=== PATIENT | female | born 1955 | race Caucasian/White ===

== ENCOUNTER → 2017-04-16 | Outpatient (CLI) | payer BC ==
[~2017-04-16] MED LIST: ASPI-589 PO; HMLI SC; INSDGI SC; LEVO100T PO; LISI-725 PO; SITA100T3 PO
--- NOTE | 2017-04-16 12:13 | DIAGNOSTIC IMAGING REPORT ---
THYROID ULTRASOUND HISTORY: HX OF THYROID Cancer, rt HYPOTHYROID NODULE COMPARISON: Thyroid ultrasound 06/16/2011. FINDINGS: The patient's right lower lobe is likely surgically absent. The left lobe measures 6.9 x 3.2 x 2.1 cm. The left lobe is diffusely heterogeneous and appears to contain a dominant lower pole nodule measuring 5.1 x 3.2 x 2.1 cm. This does not appear to be significantly changed from the prior study. There is again noted a 1.4 x 1.3 x 1.0 cm upper pole nodule which is slightly hypoechoic. This is also similar to the prior study. There is a 3.1 x 1.9 x 1.9 cm hypoechoic nodule either at or adjacent to the thyroid isthmus is most. This contains locations. In retrospect, this was likely present on the 2010 study and does not appear to be significantly changed. IMPRESSION: 1. The right thyroid lobe appears surgically absent. 2. Multinodular residual thyroid gland as described above. Overall, the size of the nodules are not significantly changed compared to the prior study. Electronically signed by: Papi Jorge M.D. 04/16/2017 12:12 PM Dictated Date/Time: 04/16/2017 12:06 PM
== END | disposition home or self-care (01) ==
LOC: C.ULTRBC 10:50
PROVIDERS: ATTEND Physician Assistant
DX: E03.9 Hypothyroidism, unspecified (principal); E04.1 Nontoxic single thyroid nodule; Z85.850 Personal history of malignant neoplasm of thyroid

== ENCOUNTER 2017-09-17 12:17 | Inpatient (IN) | payer BC, OTHER ==
[~2017-09-17] VITALS: Ht 154.9 cm; Wt 132.1 kg
[2017-09-17] MEDS ORDERED: METHYLPREDNISOLONE 125 MG VIAL IV STA (12:41)
[2017-09-17] MEDS ORDERED: IPRATROPIUM BROMIDE NEB SOLN 0.02% 2.5 ML VIAL INH STA (12:41)
[2017-09-17] MEDS ORDERED: CEFTRIAXONE SOD INJ 1 GM ADDVIAL IV STA (12:41)
[2017-09-17] MEDS ORDERED: LEVALBUTEROL 1.25MG/0.5ML NEB INH STA (12:41)
[2017-09-17 13:03] LABS: BASO % 0.4 %; BASO ABS # 0.06 K/uL (0-0.2); EOS % 1.8 %; EOS ABS # 0.27 K/uL (0-0.5); HEMATOCRIT 34.2 % (37-47); HEMOGLOBIN 11.2 g/dL (12.0-16.0); IG# 0.67 K/uL (0.00-0.02); MEAN CELL VOLUME 86.1 fL (80-100); MEAN CORPUSCULAR HEMOGLOBIN 28.2 pg (25-34); MEAN CORPUSCULAR HGB CONC 32.7 g/dl (32-36); MEAN PLATELET VOLUME 9.9 fL (7.4-10.4); MONO ABS # 1.04 K/uL (0.11-0.59); NEUT % 63.3 %; NEUT ABS # 9.33 K/uL (1.4-6.5); NUCLEATED RED BLOOD CELL ABS 0.05 K/uL (0-0); PLATELET COUNT 346 K/uL (130-400); WHITE BLOOD COUNT 14.77 K/uL (4.8-10.8)
--- NOTE | 2017-09-17 13:10 | DIAGNOSTIC IMAGING REPORT ---
CHEST ONE VIEW PORTABLE CLINICAL HISTORY: Respiratory distress COMPARISON STUDY: 11/26/2015 FINDINGS: The heart is mildly enlarged. There is elevation of the interstitium, likely secondary to congestive failure with interstitial edema. There is no focal pulmonary consolidation.[ IMPRESSION: Radiographic evidence of congestive failure with mild interstitial edema. Clinical and radiographic follow-up is recommended Electronically signed by: Carl Navarrete M.D. 09/17/2017 1:08 PM Dictated Date/Time: 09/17/2017 1:08 PM
[2017-09-17] MEDS ORDERED: FUROSEMIDE 40 MG/4 ML VIAL IV STA (13:11)
[2017-09-17 13:15] LABS: INR 1.1 (0.9-1.1); PTT PATIENT 29.6 SECONDS (21.0-31.0)
[2017-09-17] MEDS ORDERED: NITROGLYCERIN 2% OINTMENT 30GM TUBE EXT ONE (13:15)
[2017-09-17 13:18] LABS: ALBUMIN 2.4 gm/dl (3.4-5.0); CALCIUM 8.9 mg/dl (8.5-10.1); CREATININE 1.15 mg/dl (0.60-1.20); POTASSIUM 3.9 mmol/L (3.5-5.1)
[2017-09-17 13:26] LABS: TOTAL PROTEIN 7.9 gm/dl (6.4-8.2)
[2017-09-17 13:53] VITALS: PULSE 95; O2SAT 96
[2017-09-17] MEDS ORDERED: LVMI SQ (13:54)
[2017-09-17] MEDS ORDERED: ASPI-435 PO (13:54)
[2017-09-17] MEDS ORDERED: NVLG SQ (13:54)
[2017-09-17 14:50] LABS: INFLUENZA A PCR Neg for Influ A (NEG); INFLUENZA B PCR Neg for Influ B (NEG)
[2017-09-17] MEDS ORDERED: ACETAMINOPHEN 325 MG TAB PO PRN (15:00)
--- NOTE | 2017-09-17 15:13 | History and Physical ---
History & Physical Date & Time of Service: Sep 17, 2017 at 14:28 Chief Complaint: Chest Pain, Heart Racing, Bronchitis Primary Care Physician: Aiyana Asencio M.D. History of Present Illness Ms. Molina began having high fever of 102.7 for four days. Sunday the fever broke and a cough started which worsened and became productive of brown sputum and she became increasingly short of breath. Went to [facility] walk in and she was given nebulizers. Starting yesterday she couldn't take more than a few steps without becoming sob. Today she began having chest pain and palpitations. She has had edema in fingers and lower extremities. She has been taking her lasix which she takes for lymphedema. ROS Constitutional: see HPI Respiratory: see HPI Cardiac: See HPI GI: no abdominal pain, nausea, vomiting, diarrhea or constipation : no dysuria or hesitancy Extremities: no joint pain or weakness Skin: no rash All other systems reviewed and negative Pmhx: Diabetes II, thyroid cancer 10 years ago with thyroidectomy, Family History Diabetes mellitus FH: gallbladder disease FH: thyroid cancer Heart disease Mother - DMII Father - CHF Brother had CHF due to transposition of the great vessels Social History Smoking Status: Never Smoker Smokeless Tobacco Use: No Alcohol Use: none Drug Use: none Marital Status: Housing status: lives with significant other Occupational Status: retired, other Immunizations History of Influenza Vaccine: Yes History of Tetanus Vaccine?: Unknown History of Pneumococcal: Yes History of Hepatitis B Vaccine: Unknown Multi-Drug Resistant Organisms History of MDRO: No Allergies Coded Allergies: Shellfish (Verified Allergy, Severe, "SEAFOOD" -- HIVES AND THROAT CLOSES , 09/17/17) Sulfites (Verified Allergy, Severe, HIVES AND THROAT CLOSES, 09/17/17) Iodinated Contrast Media (Verified Allergy, Unknown, UNKNOWN, 09/17/17) Iodine (Verified Allergy, Unknown, 09/17/17) Home Medications Scheduled Aspirin (Aspirin 81), 81 MG PO DAILY Insulin Aspart (Novolog), 40 UNITS SQ BID Insulin Detemir (Levemir), 50 UNITS SQ BID Levothyroxine Sodium (Synthroid), 100 MCG PO QAM Lisinopril (Zestril), 20 MG PO DAILY Sitagliptin Phosphate (Januvia), 100 MG PO QAM Physical Exam Vital Signs Date Time Temp Pulse Resp B/P (MAP) Pulse Ox O2 Delivery O2 Flow Rate FiO2 09/17/17 14:00 94 24 145/56 94 Nasal Cannula 4.0 09/17/17 14:00 94 Nasal Cannula 4.0 09/17/17 13:53 95 21 96 Nasal Cannula 4.0 09/17/17 13:01 97 Nasal Cannula 4.0 09/17/17 13:00 95 22 185/66 97 Nasal Cannula 4.0 09/17/17 12:52 85 Room Air 09/17/17 12:51 101 09/17/17 12:26 36.8 101 24 193/55 84 Room Air General: no distress Eyes: normal inspection, PERLL Respiratory: chest non tender, coarse bases, expiratory wheezes throughout, no respiratory distress, no accessory muscle use Cardiac: regular rate and rhythm, no rub or gallop, no murmur, no edema, no jvd GI/: active bowel sounds, no abd pain or tenderness, soft, non distended Extremities: normal range of motion, normal strength, non tender Neuro/Psych: alert and oriented x 3, normal mood and affect Skin: normal color, dry Diagnostics Laboratory Results Results Past 24 Hours Test 09/17/17 12:42 09/17/17 12:50 09/17/17 12:56 09/17/17 12:57 Range/Units Bedside Glucose 200 70-90 mg/dl Bedside Lactic Acid Venous 1.59 0.90-1.70 mmol/L White Blood Count 14.77 4.8-10.8 K/uL Red Blood Count 3.97 4.2-5.4 M/uL Hemoglobin 11.2 12.0-16.0 g/dL Hematocrit 34.2 37-47 % Mean Corpuscular Volume 86.1 80-100 fL Mean Corpuscular Hemoglobin 28.2 25-34 pg Mean Corpuscular Hemoglobin Concent 32.7 32-36 g/dl Platelet Count 346 130-400 K/uL Mean Platelet Volume 9.9 7.4-10.4 fL Neutrophils (%) (Auto) 63.3 % Lymphocytes (%) (Auto) 23.0 % Monocytes (%) (Auto) 7.0 % Eosinophils (%) (Auto) 1.8 % Basophils (%) (Auto) 0.4 % Neutrophils # (Auto) 9.33 1.4-6.5 K/uL Lymphocytes # (Auto) 3.40 1.2-3.4 K/uL Monocytes # (Auto) 1.04 0.11-0.59 K/uL Eosinophils # (Auto) 0.27 0-0.5 K/uL Basophils # (Auto) 0.06 0-0.2 K/uL RDW Standard Deviation 53.0 36.4-46.3 fL RDW Coefficient of Variation 17.0 11.5-14.5 % Immature Granulocyte % (Auto) 4.5 % Immature Granulocyte # (Auto) 0.67 0.00-0.02 K/uL Nucleated RBC Absolute Count (auto) 0.05 0-0 K/uL Nucleated Red Blood Cells % 0.4 % Prothrombin Time 11.3 9.0-12.0 SECONDS Prothromb Time International Ratio 1.1 0.9-1.1 Activated Partial Thromboplast Time 29.6 21.0-31.0 SECONDS Partial Thromboplastin Ratio 1.1 Sodium Level 136 136-145 mmol/L Potassium Level 3.9 3.5-5.1 mmol/L Chloride Level 101 98-107 mmol/L Carbon Dioxide Level 30 21-32 mmol/L Anion Gap 5.0 3-11 mmol/L Blood Urea Nitrogen 20 7-18 mg/dl Creatinine 1.15 0.60-1.20 mg/dl Est Creatinine Clear Calc Drug Dose 67.9 ml/min Estimated GFR () 59.5 Estimated GFR (Non- 51.3 BUN/Creatinine Ratio 17.5 10-20 Random Glucose 179 70-99 mg/dl Calcium Level 8.9 8.5-10.1 mg/dl Total Bilirubin 0.6 0.2-1 mg/dl Aspartate Amino Transf (AST/SGOT) 18 15-37 U/L Alanine Aminotransferase (ALT/SGPT) 32 12-78 U/L Alkaline Phosphatase 114 45-117 U/L Troponin I 0.183 0-0.045 ng/ml Pro-B-Type Natriuretic Peptide 506 0-900 pg/ml Total Protein 7.9 6.4-8.2 gm/dl Albumin 2.4 3.4-5.0 gm/dl Globulin 5.5 2.5-4.0 gm/dl Albumin/Globulin Ratio 0.4 0.9-2 Microbiology Results 09/17/17 Blood Culture, Received Pending 09/17/17 Blood Culture, Received Pending Diagnostic Radiology CHEST ONE VIEW PORTABLE CLINICAL HISTORY: Respiratory distress COMPARISON STUDY: 11/26/2015 FINDINGS: The heart is mildly enlarged. There is elevation of the interstitium, likely secondary to congestive failure with interstitial edema. There is no focal pulmonary consolidation.[ IMPRESSION: Radiographic evidence of congestive failure with mild interstitial edema. Clinical and radiographic follow-up is recommended EKG Poor data quality, interpretation may be adversely affected Sinus tachycardia Low voltage QRS Poor R wave progression, consider anterior NE vs. lead placement vs. LVH Borderline ECG When compared with ECG of 23-NOV-2015 16:39, No significant change was found Confirmed by Tex Quintero ([id number]) on 09/17/2017 1:05:18 PM Impression Assessment and Plan Ms. Molina is a 61 year old woman here for hypoxic respiratory failure Hypoxic respiratory failure due to acute CHF of unknown type vs PNA, influenza - admit tele - 40 mg IV lasix bid - O2 prn per protocol - daily weights - strict Is&Os - Echo - consult cardiology - prp am - duonebs, ceftriaxone, doxycylcine, solumedrol - blood cultures pending - influenza pcr pending - symptoms began a week ago so at this point outside the window for starting Tamiflu Chest pain, Elevated Troponin, ?Type II NE - Troponin 0.183, trend until peak - EKG with chest pain - not currently symptomatic DMII - continue home dose insulin detemir 50 units bid - hold home dose Januvia - bsgs ac&hs, ss - A1c am HTN - continue home lisinopril 20 mg daily - prn IV hydralazine DVT prophylaxs - Enoxaprin Full code I personally interviewed and examined the patient. I agree with history of present illness and physical exam mentioned above, I also performed my own history taking and examination. Past medical history and review of system has been obtained by myself I reviewed all pertinent labs and studies Reviewed current medications I discussed and formulated of the assessment and plan mentioned above. Please refer to the Summary mentioned below. 61-year-old female with past medical history of hypertension and diabetes mellitus presented to the hospital with severe shortness of breath. Patient had an upper respiratory tract infection with fever that slightly improved, fever resolved. But developed after that acute respiratory failure with hypoxemia and wheezing. In ED chest x-ray was more suggestive of congestive heart failure, patient had bilateral lower extremity swelling. Due to history of fever and upper respiratory tract infection will also cover with antibiotics, ceftriaxone and doxycycline while she will is on Lasix for diuresis. Will consult publications writer and order 2D echo as patient is a new diagnosis of CHF. If the patient declined, will consider upgrading her antibiotics to cover Pseudomonas and MRSA General Appearance: Obese, in mild acute distress Eyes: normal Sclerae, extraocular muscle intact ENT: hearing grossly normal Neck: supple Respiratory/Chest: Bilateral decreased air entry, bilateral wheezing and scattered rhonchi, currently not using accessory muscles of respiration Cardiovascular: regular rate, rhythm, no murmur, slightly tachycardia Abdomen: non tender, soft, no masses Extremities: no edema Neurologic/Psychiatric: Awake alert oriented times place and person moves all extremities sensation intact cranial nerves II-12 appear to be intact Skin: normal color, warm/dry, no rash Macie Donis MD, [place] Advanced Directives Existing Advance Directive: No Existing Living Will: No Existing Power of Keeler Polygraph Operator: No Existing Health Care Proxy: No Resuscitation Status FULL RESUSCITATION
[2017-09-17] MEDS ORDERED: GLUCOSE 10 TABS/TUBE PO PRN (15:15)
[2017-09-17] MEDS ORDERED: GLUCAGON FOR INJ 1 MG VIAL SQ PRN (15:15)
[2017-09-17] MEDS ORDERED: DEXTROSE 50% 50 ML SYR IV PRN (15:15)
[2017-09-17] MEDS ORDERED: GLUCOSE 40% GEL 15 GM TUBE PO PRN (15:15)
[2017-09-17] MEDS ORDERED: HydrALAZINE HCL 20 MG/ML VIAL IV. PRN (15:30)
[2017-09-17] MEDS ORDERED: ALBUT/IPRATROP 3MG/0.5MG NEB 3 ML VIAL INH PRN (15:30)
[2017-09-17 16:07] VITALS: BP 140/71; PULSE 95; TEMP 37; O2SAT 93; BMI 56.7
--- NOTE | 2017-09-17 16:43 | EMERGENCY ROOM VISIT NOTE ---
History Report prepared by Tutu: Sheryl Forrest Under the Supervision of: Dr. Puneet Kapoor M.D. First contact with patient: 12:36 Chief Complaint: CHEST PAIN Stated Complaint: CHEST PAIN, HEART RACING, BRONCHITIS History of Present Illness The patient is a 61 year old female who presents to the Emergency Room with complaints of persistent chest pain since today. She reports a high fever that began one week ago that lasted for four days. She reports a cough started three days ago, which worsened within two days. She states the cough was productive. She was started on Albuterol three days ago. She was prescribed Advair. She denies any stuffy nose, though she was prescribed Flonase for pressure in her ears. She was using a nebulizer treatment when she began experiencing chest pain and neck pain. She states the nebulizer was helpful, though every time she used it she would experience sharp chest pain. She has used a nebulizer in the past and did not have these symptoms. She has not slept in days due to shortness of breath. She states that she could not catch her breath after she walked about 10 steps. She states that her heart was beating so fast. She reports leg swelling. She denies any history of smoking. She has a history of PNA and bronchitis. She denies any history of NH. She has a history of DM. She notes her blood sugar is over 300, for which she took insulin before arrival. She states that she has not eaten today. She does not use at home oxygen. Source of History: patient Onset: since yesterday Position: chest Quality: sharp Timing: other (persistent) Associated Symptoms: + cough, + neck pain, + SOB Note: She notes leg swelling. She denies any stuffy nose. Review of Systems See HPI for pertinent positives & negatives. A total of 10 systems reviewed and were otherwise negative. Past Medical & Surgical Medical Problems: (1) Cellulitis (2) CHF (congestive heart failure) (3) Diabetes (4) Diverticulitis (5) GERD (gastroesophageal reflux disease) (6) Thyroid cancer Family History Diabetes mellitus FH: gallbladder disease FH: thyroid cancer Heart disease Social History Smoking Status: Never Smoker Alcohol Use: none Drug Use: none Marital Status: Housing Status: lives with family Occupation Status: other Current/Historical Medications Scheduled Aspirin (Aspirin 81), 81 MG PO DAILY Insulin Aspart (Novolog), 40 UNITS SQ BID Insulin Detemir (Levemir), 50 UNITS SQ BID Levothyroxine Sodium (Synthroid), 100 MCG PO QAM Lisinopril (Zestril), 20 MG PO DAILY Sitagliptin Phosphate (Januvia), 100 MG PO QAM Allergies Coded Allergies: Shellfish (Verified Allergy, Severe, "SEAFOOD" -- HIVES AND THROAT CLOSES , 09/17/17) Sulfites (Verified Allergy, Severe, HIVES AND THROAT CLOSES, 09/17/17) Iodinated Contrast Media (Verified Allergy, Unknown, UNKNOWN, 09/17/17) Iodine (Verified Allergy, Unknown, 09/17/17) Physical Exam Vital Signs Date Time Temp Pulse Resp B/P (MAP) Pulse Ox O2 Delivery O2 Flow Rate FiO2 09/17/17 15:19 93 18 167/61 96 09/17/17 15:00 93 18 167/61 96 Nasal Cannula 4.0 09/17/17 14:00 94 24 145/56 94 Nasal Cannula 4.0 09/17/17 14:00 94 Nasal Cannula 4.0 09/17/17 13:53 95 21 96 Nasal Cannula 4.0 09/17/17 13:01 97 Nasal Cannula 4.0 09/17/17 13:00 95 22 185/66 97 Nasal Cannula 4.0 09/17/17 12:52 85 Room Air 09/17/17 12:51 101 09/17/17 12:26 36.8 101 24 193/55 84 Room Air Physical Exam GENERAL: Patient is in no acute distress. HEENT: No acute trauma, normocephalic atraumatic, mucous membranes moist, no nasal congestion, no scleral icterus. NECK: No stridor, no adenopathy, no meningismus, trachea is midline. LUNGS: Crackles on right, wheezing bilaterally, breath sounds are diminished, but equal. Moist cough noted. Dyspnea noted with speaking. HEART: Tachycardic rate with regular rhythm, no murmurs. ABDOMEN: Soft, nontender, bowel sounds positive, no hernias, no peritonitis. EXTREMITIES: No cyanosis, full range of motion of all the joints without pain or difficulty, no signs for acute trauma. Mild bilateral pedal edema. NEUROLOGIC: Oriented x 3, no acute motor or sensory deficits, no focal weakness. SKIN: No rash, no jaundice, no diaphoresis. Medical Decision & Procedures ER Provider Diagnostic Interpretation: Radiology results as stated below per my review and radiologist interpretation: CHEST ONE VIEW PORTABLE CLINICAL HISTORY: Respiratory distress COMPARISON STUDY: 11/26/2015 FINDINGS: The heart is mildly enlarged. There is elevation of the interstitium, likely secondary to congestive failure with interstitial edema. There is no focal pulmonary consolidation.[ IMPRESSION: Radiographic evidence of congestive failure with mild interstitial edema. Clinical and radiographic follow-up is recommended Electronically signed by: Carl Navarrete M.D. 09/17/2017 1:08 PM Dictated Date/Time: 09/17/2017 1:08 PM Laboratory Results 09/17/17 12:57 Red Blood Count 3.97, Mean Corpuscular Volume 86.1, Mean Corpuscular Hemoglobin 28.2, Mean Corpuscular Hemoglobin Concent 32.7, Mean Platelet Volume 9.9, Neutrophils (%) (Auto) 63.3, Lymphocytes (%) (Auto) 23.0, Monocytes (%) (Auto) 7.0, Eosinophils (%) (Auto) 1.8, Basophils (%) (Auto) 0.4, Neutrophils # (Auto) 9.33, Lymphocytes # (Auto) 3.40, Monocytes # (Auto) 1.04, Eosinophils # (Auto) 0.27, Basophils # (Auto) 0.06 09/17/17 12:57 Test 09/17/17 12:50 09/17/17 12:56 09/17/17 12:57 Influenza Type A (RT-PCR) Neg for Influ A (NEG) Influenza Type B (RT-PCR) Neg for Influ B (NEG) Bedside Lactic Acid Venous 1.59 mmol/L (0.90-1.70) White Blood Count 14.77 K/uL (4.8-10.8) Red Blood Count 3.97 M/uL (4.2-5.4) Hemoglobin 11.2 g/dL (12.0-16.0) Hematocrit 34.2 % (37-47) Mean Corpuscular Volume 86.1 fL (80-100) Mean Corpuscular Hemoglobin 28.2 pg (25-34) Mean Corpuscular Hemoglobin Concent 32.7 g/dl (32-36) Platelet Count 346 K/uL (130-400) Mean Platelet Volume 9.9 fL (7.4-10.4) Neutrophils (%) (Auto) 63.3 % Lymphocytes (%) (Auto) 23.0 % Monocytes (%) (Auto) 7.0 % Eosinophils (%) (Auto) 1.8 % Basophils (%) (Auto) 0.4 % Neutrophils # (Auto) 9.33 K/uL (1.4-6.5) Lymphocytes # (Auto) 3.40 K/uL (1.2-3.4) Monocytes # (Auto) 1.04 K/uL (0.11-0.59) Eosinophils # (Auto) 0.27 K/uL (0-0.5) Basophils # (Auto) 0.06 K/uL (0-0.2) RDW Standard Deviation 53.0 fL (36.4-46.3) RDW Coefficient of Variation 17.0 % (11.5-14.5) Immature Granulocyte % (Auto) 4.5 % Immature Granulocyte # (Auto) 0.67 K/uL (0.00-0.02) Nucleated RBC Absolute Count (auto) 0.05 K/uL (0-0) Nucleated Red Blood Cells % 0.4 % Prothrombin Time 11.3 SECONDS (9.0-12.0) Prothromb Time International Ratio 1.1 (0.9-1.1) Activated Partial Thromboplast Time 29.6 SECONDS (21.0-31.0) Partial Thromboplastin Ratio 1.1 Anion Gap 5.0 mmol/L (3-11) Est Creatinine Clear Calc Drug Dose 67.9 ml/min Estimated GFR () 59.5 Estimated GFR (Non- 51.3 BUN/Creatinine Ratio 17.5 (10-20) Calcium Level 8.9 mg/dl (8.5-10.1) Total Bilirubin 0.6 mg/dl (0.2-1) Aspartate Amino Transf (AST/SGOT) 18 U/L (15-37) Alanine Aminotransferase (ALT/SGPT) 32 U/L (12-78) Alkaline Phosphatase 114 U/L (45-117) Troponin I 0.183 ng/ml (0-0.045) Pro-B-Type Natriuretic Peptide 506 pg/ml (0-900) Total Protein 7.9 gm/dl (6.4-8.2) Albumin 2.4 gm/dl (3.4-5.0) Globulin 5.5 gm/dl (2.5-4.0) Albumin/Globulin Ratio 0.4 (0.9-2) Laboratory results reviewed by me. Medications Administered Medications (Trade) Dose Ordered Sig/Jason Route Start Time Stop Time Status Last Admin Dose Admin Levalbuterol (Xopenex 1.25MG/ 0.5ML Neb) 1.25 mg NOW STAT INH 09/17/17 12:41 09/17/17 12:45 DC 09/17/17 13:50 1.25 MG Ipratropium [place] (Atrovent 0.02% 0.5MG/2.5ML Neb) 0.5 mg NOW STAT INH 09/17/17 12:41 09/17/17 12:45 DC 09/17/17 13:50 0.5 MG Methylprednisolone Sodium Succinate (Solu-Medrol IV) 80 mg NOW STAT IV 09/17/17 12:41 09/17/17 12:45 DC 09/17/17 13:12 80 MG Ceftriaxone Sodium (Rocephin Inj) 1 gm NOW STAT IV 09/17/17 12:41 09/17/17 12:45 DC 09/17/17 13:59 1 GM Nitroglycerin (Nitroglycerin 2% Oint) 2 inch NOW ONCE EXT 09/17/17 13:15 09/17/17 13:16 DC 09/17/17 13:18 2 INCH Furosemide (Lasix Inj) 20 mg NOW STAT IV 09/17/17 13:11 09/17/17 13:14 DC 09/17/17 13:17 20 MG ECG Per My Interpretation Indication: chest pain Rate (beats per minute): 102 Rhythm: sinus tachycardia Findings: no ectopy (no PVCs), other (no ST elevation) Change: Patient's electrocardiogram interpreted by me. ED Course 1236: The patient was evaluated in room B12B. A complete history and physical exam was performed. 1241: Ordered Rocephin 1 gm IV, Solu-Medrol 80 mg IV, Ipratropium [place] 0.5 mg INH, and Levalbuterol 1.25 mg INH 1311: Ordered Lasix 20 mg IV 1314: I reassessed the patient at this time. I updated the patient. 1315: Ordered Nitroglycerin 2 inch EXT 1347: I reassessed the patient at this time. She is diuresing from the Lasix. She reports shortness of breath when she moves around. 1359: I spoke with MARIELA Serrano hospitalist. We discussed the patient's case. The patient will be evaluated by the [facility] for further management. Medical Decision The patient is a 61 year old female who presents to the ED with complaints of chest pain. Differential diagnoses considered include bronchitis, PNA, CHF, cardiac ischemia, anemia, sinusitis, failed outpatient treatment, and influenza. There is a mild leukocytosis, this would be consistent with infection. No concerning anemia. No significant electrolyte abnormality, kidney failure or hepatitis. Chest x-ray appears to show some CHF. BNP is not elevated. EKG shows a sinus tachycardia, no acute ischemia. Cardiac enzyme testing times one is slightly elevated consistent with cardiac strain or injury. Blood cultures are pending. Influenza testing is negative. Lactic acid level is not elevated making sepsis less likely. The patient presents with some respiratory distress. She was hypoxic in triage. She became short of breath with any movement and even long sentences. The patient received a Xopenex Atrovent neb, IV Solu-Medrol and IV ceftriaxone. She was given Nitropaste and IV Lasix. She did diuresis. The patient requires O2 supplementation. She does require a hospital stay given her findings. I spoke to the patient and case loader operator. The on-call hospitalist was consulted. Medication Reconcilliation Current Medication List: was personally reviewed by me Blood Pressure Screening Patient's blood pressure: Elevated blood pressure referred to hospitalist Consults Time Called: 1343 Consulting Physician: MARIELA Serrano hospitalist Returned Call: [phone] I spoke with MARIELA Serrano hospitalist. We discussed the patient' s case. The patient will be evaluated by the [facility] for further management. Impression Primary Impression: Hypoxia Additional Impressions: CHF (congestive heart failure) Elevated troponin Wheezing Scribe Attestation The scribe's documentation has been prepared under my direction and personally reviewed by me in its entirety. I confirm that the note above accurately reflects all work, treatment, procedures, and medical decision making performed by me. Departure Information Dispostion Being Evaluated By Hospitalist Referrals Aiyana Asencio M.D. (PCP) Patient Instructions My [facility] Problem Qualifiers
--- NOTE | 2017-09-17 17:00 | ECHOCARDIOGRAM REPORT ---
*NOTICE TO RECEIVING [employer] This information is strictly Confidential and protected under [place] law. [place] law prohibits you from making any further disclosure of this information unless further disclosure is expressly permitted by the written consent of the person to whom it pertains or is authorized by law. A general authorization for the release of medical or other information is not sufficient for this purpose. Hospital accepts no responsibility if the information is made available to any other person, INCLUDING THE PATIENT. Interpretation Summary * Name: GREY LOU Study Date: 09/17/2017 03:49 PM BP: 145/56 mmHg * Patient Location: [facility] HR: 94 * : 1955 (M/d/yyyy) Gender: Female Height: 60 in * Age: 61 yrs Ethnicity: [place] Weight: 303 lb * Ordering Physician: Shelley Ribeiro * Referring Physician: Self, Referred * Performed By: Vianey Baird RDCS * * Reason For Study: Congestive Heart Failure * BSA: 2.2 m2 * -- Conclusions -- * Left ventricular systolic function is normal. * No significant valvular disease Procedure Details * A complete two-dimensional transthoracic echocardiogram was performed (2D, M-mode, Doppler and color flow Doppler). Left Ventricle * The left ventricle is normal in size. * There is normal left ventricular wall thickness. * Ejection Fraction = 65-70%. * Left ventricular systolic function is normal. Right Ventricle * The right ventricle is not well visualized. Atria * The left atrial size is normal. * Right atrium not well visualized. Mitral Valve * The mitral valve is grossly normal. * Significant mitral regurgitation is absent. Tricuspid Valve * The tricuspid valve is not well visualized. * There is trace tricuspid regurgitation. * Right ventricular systolic pressure is normal. Aortic Valve * The aortic valve is not well visualized. * No hemodynamically significant valvular aortic stenosis. * There is no significant aortic regurgitation. Great Vessels * The aortic root is normal size. Pericardium/Pleural * There is no pericardial effusion. MMode 2D Measurements and Calculations IVSd 1.1 cm IVSs 1.9 cm LVIDd 4.7 cm LVIDs 2.5 cm LVPWd 1.2 cm LVPWs 1.2 cm IVS/LVPW 0.96 FS 45.5 % EDV(Teich) 101.3 ml ESV(Teich) 23.4 ml EF(Teich) 76.9 % EDV(cubed) 102.4 ml ESV(cubed) 16.5 ml EF(cubed) 83.9 % % IVS thick 72.2 % % LVPW thick 4.7 % LV mass(C)d 194.1 grams LV mass(C)dI 87.1 grams/m\S\2 LV mass(C)s 138.5 grams LV mass(C)sI 62.2 grams/m\S\2 SV(Teich) 77.9 ml SI(Teich) 35.0 ml/m\S\2 SV(cubed) 85.9 ml SI(cubed) 38.6 ml/m\S\2 Ao root diam 2.8 cm Ao root area 6.4 cm\S\2 ACS 1.8 cm LA dimension 3.5 cm LA/Ao 1.2 LVAd ap4 26.2 cm\S\2 LVLd ap4 8.1 cm EDV(MOD-sp4) 70.2 ml EDV(sp4-el) 72.2 ml LVAs ap4 12.6 cm\S\2 LVLs ap4 6.9 cm ESV(MOD-sp4) 23.1 ml ESV(sp4-el) 19.6 ml EF(MOD-sp4) 67.0 % EF(sp4-el) 72.9 % LVAd ap2 31.5 cm\S\2 LVLd ap2 8.3 cm EDV(MOD-sp2) 104.5 ml EDV(sp2-el) 102.0 ml LVAs ap2 17.7 cm\S\2 LVLs ap2 7.5 cm ESV(MOD-sp2) 38.6 ml ESV(sp2-el) 35.6 ml EF(MOD-sp2) 63.0 % EF(sp2-el) 65.1 % LVLd %diff 2.1 % EDV(MOD-bp) 85.5 ml LVLs %diff 7.4 % ESV(MOD-bp) 29.4 ml EF(MOD-bp) 65.7 % SV(MOD-sp4) 47.1 ml SI(MOD-sp4) 21.1 ml/m\S\2 SV(MOD-sp2) 65.9 ml SI(MOD-sp2) 29.6 ml/m\S\2 SV(MOD-bp) 56.2 ml SI(MOD-bp) 25.2 ml/m\S\2 SV(sp4-el) 52.7 ml SI(sp4-el) 23.7 ml/m\S\2 SV(sp2-el) 66.4 ml SI(sp2-el) 29.8 ml/m\S\2 Doppler Measurements and Calculations MV E max ha 126.0 cm/sec MV A max ha 96.3 cm/sec MV E/A 1.3 MV dec time 0.19 sec Ao V2 max 164.0 cm/sec Ao max PG 10.8 mmHg Ao max PG (full) 5.9 mmHg LV V1 max PG 4.9 mmHg LV V1 max 110.3 cm/sec PA V2 max 99.2 cm/sec PA max PG 3.9 mmHg TR max ha 144.6 cm/sec
[2017-09-17] MEDS: LACTOBACILLUS ACIDOPHILUS (FLORANEX) TAB PO SCH (18:13)
[2017-09-17] MEDS: ENOXAPARIN 40 MG/0.4 ML SYR SC SCH (18:13)
[2017-09-17] MEDS: FUROSEMIDE INJ 40 MG in SYRINGE 0 ML IV SCH (18:14)
[2017-09-17] MEDS: DOXYCYCLINE IV 100 MG in DEXTROSE 5% 100ML 100 ML IV SCH (18:14)
[2017-09-17] MEDS: INSULIN ASPART 100 UNITS/ML 3 ML PEN SC SCH ×2 (18:17→20:28)
[2017-09-17 19:31] VITALS: BP 164/75; PULSE 94; TEMP 36.9; O2SAT 92
[2017-09-17] MEDS: ALBUT/IPRATROP 3MG/0.5MG NEB 3 ML VIAL INH SCH (19:37)
[2017-09-17 19:42] VITALS: PULSE 88; O2SAT 96
[2017-09-17] MEDS: INSULIN DETEMIR SC SCH (20:28)
[2017-09-17 23:42] VITALS: BP 130/66; PULSE 88; TEMP 36.8; O2SAT 95
[2017-09-18] VITALS (11 sets, daily range): BP systolic 146–187; BP diastolic 68–80; PULSE 80–109; TEMP 36.6–36.9; O2SAT 89–98; BMI 55.8
[2017-09-18] MEDS: METHYLPREDNISOLONE IV 60 MG in SYRINGE 0 ML IV SCH ×3 (00:18→23:34)
[2017-09-18] MEDS: DOXYCYCLINE IV 100 MG in DEXTROSE 5% 100ML 100 ML IV SCH ×2 (06:14→17:39)
[2017-09-18] MEDS: LEVOTHYROXINE 100 MCG TAB PO SCH (06:14)
[2017-09-18] MEDS: ALBUT/IPRATROP 3MG/0.5MG NEB 3 ML VIAL INH SCH ×4 (07:15→19:21)
[2017-09-18] MEDS: LACTOBACILLUS ACIDOPHILUS (FLORANEX) TAB PO SCH ×3 (08:04→17:01)
[2017-09-18] MEDS: LISINOPRIL 20 MG TAB PO SCH (08:04)
[2017-09-18] MEDS: FUROSEMIDE INJ 40 MG in SYRINGE 0 ML IV SCH (08:05)
[2017-09-18] MEDS: ASPIRIN 81 MG ECTAB PO SCH (08:05)
[2017-09-18] MEDS: INSULIN ASPART 100 UNITS/ML 3 ML PEN SC SCH ×4 (08:10→21:00)
[2017-09-18] MEDS: INSULIN DETEMIR SC SCH ×2 (08:10→21:24)
[2017-09-18 08:13] LABS: CALCIUM 9.1 mg/dl (8.5-10.1); CREATININE 1.24 mg/dl (0.60-1.20); POTASSIUM 4.3 mmol/L (3.5-5.1)
--- NOTE | 2017-09-18 08:34 | Hospitalist Progress Note ---
Hospitalist Progress Note Date of Service Sep 18, 2017. Subjective Pt evaluation today including: conversation w/ patient, physical exam, chart review, lab review, review of studies, review of inpatient medication list Patient seen and evaluated. No acute events overnight. Had 4 beat run of PVCs but NSR on telemetry. Patient reports some improvement but not yet baseline. Does not utilize chronic O2. Echo reviewed that does not support CHF. Patient has chronic lymphedema however do not feel she is directly in CHF. She states her symptoms started after being exposed to her grandchildren that have been sick. She denies any H/O diagnosed pulmonary conditions. She denies H/O blood clots or PE. Clinical assessment supports a bronchitis, maybe PNA. States she gets hives with iodine products but not anaphylaxis. She would like to go forward with testing and will pre-medicate with IV Benadryl and IV Steroids. Given dosing of steroids yesterday and this morning will just do pre- medication one hour prior to CTA. Constitutional: No fever, No chills Respiratory: + cough, + wheezing, + shortness of breath, No sputum Cardiovascular: No chest pain Abdomen: No pain, No nausea, No vomiting, No diarrhea, No constipation Musculoskeletal: No swelling, No calf pain Female : No dysuria Psychiatric: + problem reported (si) Heme: No abnormal bleeding/bruising Skin: No rash Medications Current Inpatient Medications Medications (Trade) Dose Ordered Sig/Jason Route Start Time Stop Time Status Last Admin Dose Admin Enoxaparin Sodium (Lovenox Inj) 40 mg Q24H SC 09/17/17 18:00 10/17/17 17:59 09/17/17 18:13 40 MG Acetaminophen (Tylenol Tab) 650 mg Q4H PRN PO 09/17/17 15:00 10/17/17 14:59 09/18/17 04:24 650 MG Nitroglycerin (Nitrostat Tab) 0.4 mg UD PRN SL 09/17/17 15:00 10/17/17 14:59 Furosemide 40 mg/ Syringe 4 ml @ 4 mls/min BID17 IV 09/17/17 17:00 10/17/17 16:59 Future Hold 09/18/17 08:05 4 MLS/MIN Aspirin (Ecotrin Tab) 81 mg DAILY PO 09/18/17 09:00 3/29/18 08:59 09/18/17 08:05 81 MG Levothyroxine Sodium (Synthroid Tab) 100 mcg DAILYBB PO 09/18/17 06:00 10/18/17 06:59 09/18/17 06:14 100 MCG Lisinopril (Zestril Tab) 20 mg DAILY PO 09/18/17 09:00 10/18/17 08:59 09/18/17 08:04 20 MG Insulin Detemir (Levemir Insulin) 50 units BID SC 09/17/17 21:00 10/17/17 20:59 09/18/17 08:10 50 UNITS Glucose (Glucose 40% Gel) 15-30 GRAMS 15 GRAMS... UD PRN PO 09/17/17 15:15 10/17/17 15:14 Glucose (Glucose Chew Tab) 4-8 Tablets 4 Tabl... UD PRN PO 09/17/17 15:15 10/17/17 15:14 Dextrose (Dextrose 50% 50ML Syringe) 25-50ML OF 50% DW IV FOR... UD PRN IV 09/17/17 15:15 10/17/17 15:14 Glucagon (Glucagon Inj) 1 mg UD PRN SQ 09/17/17 15:15 10/17/17 15:14 Albuterol/ Ipratropium (Duoneb) 3 ml QIDR INH 09/17/17 16:00 10/17/17 15:59 09/18/17 11:14 3 ML Ceftriaxone Sodium 1 gm/ Dextrose 50 ml @ 100 mls/hr Q24H IV 09/18/17 12:00 09/24/17 11:59 09/18/17 13:22 100 MLS/HR Doxycycline Hyclate 100 mg/ Dextrose 110 ml @ 50 mls/hr Q12H IV 09/17/17 18:00 09/24/17 17:59 09/18/17 06:14 50 MLS/HR Albuterol/ Ipratropium (Duoneb) 3 ml Q2H PRN INH 09/17/17 15:30 10/17/17 15:29 Methylprednisolone Sodium Succinate 60 mg/Syringe 0.96 ml @ 1.5 mls/min Q12H IV 09/18/17 00:00 10/18/17 00:00 09/18/17 13:23 1.5 MLS/MIN Hydralazine HCl (HydrALAZINE INJ) 10 mg Q4H PRN IV. 09/17/17 15:30 10/17/17 15:29 Lactobacillus Acidophilus (Floranex Tab) 4 tab TIDM PO 09/17/17 16:45 10/17/17 17:59 09/18/17 13:24 4 TAB Insulin Aspart (novoLOG ASPART) SLIDING SCALE PCHS SC 09/18/17 17:30 10/18/17 17:29 Miscellaneous Information (Consult Glycemic Management Pharmacy) 1 ea UD PRN N/A 09/18/17 13:17 10/18/17 13:16 Insulin Human Regular 250 units/ Sodium Chloride 252.5 ml @ 0 mls/hr Q24H IV 09/18/17 13:45 10/18/17 13:44 09/18/17 14:15 3.4 MLS/HR Objective Vital Signs Date Time Temp Pulse Resp B/P (MAP) Pulse Ox O2 Delivery O2 Flow Rate FiO2 09/18/17 07:54 36.9 86 18 157/80 (105) 95 09/18/17 07:16 85 18 93 Nasal Cannula 2.0 09/18/17 04:00 Nasal Cannula 3.0 09/18/17 03:33 36.6 86 18 146/77 (100) 91 09/17/17 23:59 Nasal Cannula 3.0 09/17/17 23:42 36.8 88 20 130/66 (87) 95 3.0 09/17/17 20:00 Nasal Cannula 2.0 09/17/17 19:42 88 18 96 Nasal Cannula 3.0 09/17/17 19:31 36.9 94 24 164/75 (104) 92 Nasal Cannula 2.0 09/17/17 16:07 37.0 95 16 140/71 93 Nasal Cannula 4.0 09/17/17 15:19 93 18 167/61 96 09/17/17 15:00 93 18 167/61 96 Nasal Cannula 4.0 09/17/17 14:00 94 24 145/56 94 Nasal Cannula 4.0 09/17/17 14:00 94 Nasal Cannula 4.0 09/17/17 13:53 95 21 96 Nasal Cannula 4.0 09/17/17 13:01 97 Nasal Cannula 4.0 09/17/17 13:00 95 22 185/66 97 Nasal Cannula 4.0 09/17/17 12:52 85 Room Air 09/17/17 12:51 101 09/17/17 12:26 36.8 101 24 193/55 84 Room Air Physical Exam General Appearance: WD/WN, no apparent distress, + obese Eyes: sclerae normal ENT: hearing grossly normal Neck: supple, no adenopathy, no JVD, trachea midline Respiratory/Chest: no respiratory distress, no accessory muscle use, + rhonchi (diffuse), + wheezing (expiratory - diffuse) Cardiovascular: regular rate, rhythm Abdomen: normal bowel sounds, non tender, soft Extremities: no pedal edema Neurologic/Psychiatric: alert, oriented x 3 Skin: normal color, warm/dry Laboratory Results Last 24 Hours Test 09/17/17 12:42 09/17/17 12:50 09/17/17 12:56 09/17/17 12:57 Bedside Glucose 200 mg/dl Influenza Type A (RT-PCR) Neg for Influ A Influenza Type B (RT-PCR) Neg for Influ B Bedside Lactic Acid Venous 1.59 mmol/L White Blood Count 14.77 K/uL Red Blood Count 3.97 M/uL Hemoglobin 11.2 g/dL Hematocrit 34.2 % Mean Corpuscular Volume 86.1 fL Mean Corpuscular Hemoglobin 28.2 pg Mean Corpuscular Hemoglobin Concent 32.7 g/dl Platelet Count 346 K/uL Mean Platelet Volume 9.9 fL Neutrophils (%) (Auto) 63.3 % Lymphocytes (%) (Auto) 23.0 % Monocytes (%) (Auto) 7.0 % Eosinophils (%) (Auto) 1.8 % Basophils (%) (Auto) 0.4 % Neutrophils # (Auto) 9.33 K/uL Lymphocytes # (Auto) 3.40 K/uL Monocytes # (Auto) 1.04 K/uL Eosinophils # (Auto) 0.27 K/uL Basophils # (Auto) 0.06 K/uL RDW Standard Deviation 53.0 fL RDW Coefficient of Variation 17.0 % Immature Granulocyte % (Auto) 4.5 % Immature Granulocyte # (Auto) 0.67 K/uL Nucleated RBC Absolute Count (auto) 0.05 K/uL Nucleated Red Blood Cells % 0.4 % Prothrombin Time 11.3 SECONDS Prothromb Time International Ratio 1.1 Activated Partial Thromboplast Time 29.6 SECONDS Partial Thromboplastin Ratio 1.1 Sodium Level 136 mmol/L Potassium Level 3.9 mmol/L Chloride Level 101 mmol/L Carbon Dioxide Level 30 mmol/L Anion Gap 5.0 mmol/L Blood Urea Nitrogen 20 mg/dl Creatinine 1.15 mg/dl Est Creatinine Clear Calc Drug Dose 67.9 ml/min Estimated GFR () 59.5 Estimated GFR (Non- 51.3 BUN/Creatinine Ratio 17.5 Random Glucose 179 mg/dl Calcium Level 8.9 mg/dl Total Bilirubin 0.6 mg/dl Aspartate Amino Transf (AST/SGOT) 18 U/L Alanine Aminotransferase (ALT/SGPT) 32 U/L Alkaline Phosphatase 114 U/L Troponin I 0.183 ng/ml Pro-B-Type Natriuretic Peptide 506 pg/ml Total Protein 7.9 gm/dl Albumin 2.4 gm/dl Globulin 5.5 gm/dl Albumin/Globulin Ratio 0.4 Test 09/17/17 16:11 09/17/17 19:46 09/17/17 20:18 09/18/17 00:25 Bedside Glucose 114 mg/dl 245 mg/dl Troponin I 0.151 ng/ml 0.085 ng/ml Test 09/18/17 04:08 09/18/17 07:09 Bedside Glucose 219 mg/dl Sodium Level 134 mmol/L Potassium Level 4.3 mmol/L Chloride Level 99 mmol/L Carbon Dioxide Level 28 mmol/L Anion Gap 7.0 mmol/L Blood Urea Nitrogen 28 mg/dl Creatinine 1.24 mg/dl Est Creatinine Clear Calc Drug Dose 61.9 ml/min Estimated GFR () 54.3 Estimated GFR (Non- 46.8 BUN/Creatinine Ratio 22.2 Random Glucose 258 mg/dl Estimated Average Glucose 269 mg/dl Hemoglobin A1c 11.0 % Calcium Level 9.1 mg/dl Assessment and Plan Ms. Molina is a 61 year old woman here for hypoxic respiratory failure Acute Hypoxic Respiratory Failure 2/2 CHF vs PNA vs PE - Echo with EF 65-70% with no valvular abnormalities - BNP minimal however given BMI of 55 may be misleading - CXR with evidence of failure but given presentation maybe viral pneumonia - also may need to R/O PE given hypoxia, CP, trops, tachycardia... - Discussed with patient that allergy to iodine contrast is hives - will premedicate with Benadryl and Steroids - D-Dimer is 1300 - Will hold Lasix at this time as CHF does not appear to be contributing to her presentation - Rocephin 1 g IV daily and Doxycycline 100 mg BID - Methylprednisolone 60 mg IV BID - Ellie JASON Elevated Troponin: Demand Ischemia - Peaked at 0.183 and trending down - Appreciate cardiology's input T2DM: A1c 11 - Will start an insulin gtt to get better control as no plan for steroid wean and will give additional dose for pre-medication today - Continue Levemir 50 units SC BID and SSI - Discussed with pharmacy - appreciate their assistance with glycemic management HTN: - Lisinopril 20 mg daily DVT Prophylaxis: Lovenox 40 mg SC daily Code Status: FULL RESUSCITATION Disposition: - Await clinical improvement Continued [facility] stay due to: multiple IV medications needed Discharge planning: home
[2017-09-18 08:49] LABS: HEMATOCRIT 36.4 % (37-47); HEMOGLOBIN 11.7 g/dL (12.0-16.0); MEAN CELL VOLUME 83.5 fL (80-100); MEAN CORPUSCULAR HEMOGLOBIN 26.8 pg (25-34); MEAN CORPUSCULAR HGB CONC 32.1 g/dl (32-36); MEAN PLATELET VOLUME 10.4 fL (7.4-10.4); PLATELET COUNT 365 K/uL (130-400); RED CELL DISTRIBUTION WIDTH SD 51.7 fL (36.4-46.3)
[2017-09-18] MEDS ORDERED: INSULIN IV INFUSION PROTOCOL STA (12:43)
[2017-09-18] MEDS ORDERED: MODERATE STRESS LEVEL ONE (12:45)
[2017-09-18] MEDS ORDERED: INSULIN PROTOCOL GOAL RANGE ONE (12:45)
[2017-09-18] MEDS ORDERED: DC ALL PREVIOUSLY ORDERED DIABETES MEDS ONE (12:45)
[2017-09-18] MEDS ORDERED: PHARMACY GLYCEMIC MGMT CONSULT PRN (13:17)
[2017-09-18] MEDS: CEFTRIAXONE SOD INJ 1 GM in DEXTROSE 5% ADD-VANTAGE 50ML 50 ML IV SCH (13:22)
--- NOTE | 2017-09-18 13:41 | Pharmacy Progress Note ---
Glycemic Control Intl Consult Date of Service Sep 18, 2017. Scope Glycemic Pharmacist consulted by Manasa Paniagua on 09/18/17 for glycemic control and to write orders per [facility] inpatient glycemic control protocol Objective Weight (Kilograms): 134.000 Accuchecks BSG (last 24hrs): Test 09/17/17 16:11 09/17/17 20:18 09/18/17 04:08 09/18/17 06:44 Bedside Glucose 114 mg/dl (70-90) 245 mg/dl (70-90) 219 mg/dl (70-90) 235 mg/dl (70-90) Test 09/18/17 07:09 09/18/17 11:12 Random Glucose 258 mg/dl (70-99) Bedside Glucose 325 mg/dl (70-90) Laboratory Data (last 24hrs) Test 09/18/17 07:09 Anion Gap 7.0 mmol/L BUN/Creatinine Ratio 22.2 Blood Urea Nitrogen 28 mg/dl Creatinine 1.24 mg/dl Hemoglobin A1c 11.0 % Potassium Level 4.3 mmol/L Sodium Level 134 mmol/L White Blood Count 15.30 K/uL HbA1c Test 09/18/17 07:09 Hemoglobin A1c 11.0 % (4.5-5.6) H Recent Pertinent Medications Outpatient Anti-diabetic Regimen: * Levemir 50 units SQ BID + Novolog 40 units SQ BID + Januvia 100 mg PO qam Risk Factors for Insulin Resistance: * Steroids: Solu-medrol 60 mg IV q12h * Infection: pneumonia vs. bronchitis * Diet: T2DM Assessment & Plan ASSESSMENT: * 61 yr old female admitted with acute respiratory failure secondary to CHF vs. pneumonia vs. bronchitis * Patient takes large doses of insulin as an outpatient with poor glycemic control evidenced by A1c of 11%. * IV insulin infusion has been ordered for severe steroid induced hyperglycemia. * Will overlap SQ basal insulin with IV infusion to allow for easier transition off infusion in the future. PLAN FOR INPATIENT GLYCEMIC CONTROL: * Starting IV insulin infusion per moderate stress protocol * Goal Range 140 - 180 mg/dl * Basal insulin * Continue LANTUS 50 units SQ BID * Bolus Insulin * NOVOLOG PCHS * Carb ratio of 1 unit per 3 grams CHO consumed (will utilize fixed carb ratio rather than carb ratio calculated by insulin infusion calculator) * Please note that the plan above was derived based on current level of insulin resistance and hospital stress. These recommendations are appropriate for inpatient admission only. Plan of care upon discharge will need to be reassessed to avoid potential outpatient hypo/hyperglycemia. Thank you.
[2017-09-18] MEDS ORDERED: INSULIN HUMAN REGULAR IV BOLUS 3.5 UNIT in SYRINGE 0 ML IV ONE (13:45)
--- NOTE | 2017-09-18 13:57 | Cardiology Consultation ---
Cardiology Consultation Date of Consultation: Sep 18, 2017. Requesting Physician: Teresa Ribeiro Reason for Consultation: Elevated troponin, possible CHF Pt evaluation today including: conversation w/ patient, physical exam, lab review, review of studies, review of inpatient medication list History of Present Illness This is a 61-year-old woman who developed a fever somewhere around 1 week before presentation, she subsequently developed a cough and productive brown sputum. She also developed shortness of breath, she was initially treated with nebulizers but became much more short of breath. She then developed chest discomfort and palpitations as well as worsening peripheral edema on top of her chronic lymphedema and came into the emergency room on September 17, 2017. There she was found to be hypoxic (84% oxygen saturation on room air), tachycardic at 103 bpm and hypertensive with a blood pressure reported at 193/ 55. Additionally her chest x-ray suggested pulmonary edema. Her initial troponin was 0.183, subsequently they dropped (0.151 and then 0.085). Her BNP was normal, her echocardiogram also was normal. She has risk factors for coronary disease but no documented coronary disease and no prior symptoms. I discussed her symptoms with her, she described taking her nebulizer treatment and having a racing heartbeat associated with chest, neck and mid scapular pain and shortness of breath. She also described shortness of breath with minimal exertion associated with chest heaviness before she came to the hospital. She has had no further cardiac symptoms after admission. Past Medical/Surgical History (1) Diabetes (2) GERD (gastroesophageal reflux disease) (3) Diverticulitis (4) Thyroid cancer Family History Diabetes mellitus FH: gallbladder disease FH: thyroid cancer Heart disease Social History Smoking Status: Never Smoker History of Alcohol Use: No Review of Systems Constitutional: No fever, No weight loss, No weakness Respiratory: + see HPI, + cough, + shortness of breath, + dyspnea on exertion, No wheezing Cardiac: + see HPI, + chest pain, + edema, + palpitations, No orthopnea, No PND Abdomen: No pain, No nausea, No vomiting, No diarrhea, No GI bleeding Female : No problem reported Neurologic: No paralysis, No weakness, No numbness/tingling, No balance problems Heme: No abnormal bleeding/bruising, No clotting problems Endo: No fatigue Skin: No problem reported All Other Systems: Reviewed and Negative Allergies Coded Allergies: Shellfish (Verified Allergy, Severe, "SEAFOOD" -- HIVES AND THROAT CLOSES , 09/17/17) Sulfites (Verified Allergy, Severe, HIVES AND THROAT CLOSES, 09/17/17) Iodinated Contrast Media (Verified Allergy, Unknown, UNKNOWN, 09/17/17) Iodine (Verified Allergy, Unknown, 09/17/17) Medications Current Inpatient Medications Medications (Trade) Dose Ordered Sig/Jason Route Start Time Stop Time Status Last Admin Dose Admin Enoxaparin Sodium (Lovenox Inj) 40 mg Q24H SC 09/17/17 18:00 10/17/17 17:59 09/17/17 18:13 40 MG Acetaminophen (Tylenol Tab) 650 mg Q4H PRN PO 09/17/17 15:00 10/17/17 14:59 09/18/17 04:24 650 MG Nitroglycerin (Nitrostat Tab) 0.4 mg UD PRN SL 09/17/17 15:00 10/17/17 14:59 Furosemide 40 mg/ Syringe 4 ml @ 4 mls/min BID17 IV 09/17/17 17:00 10/17/17 16:59 Future Hold 09/18/17 08:05 4 MLS/MIN Aspirin (Ecotrin Tab) 81 mg DAILY PO 09/18/17 09:00 10/18/17 08:59 09/18/17 08:05 81 MG Levothyroxine Sodium (Synthroid Tab) 100 mcg DAILYBB PO 09/18/17 06:00 10/18/17 06:59 09/18/17 06:14 100 MCG Lisinopril (Zestril Tab) 20 mg DAILY PO 09/18/17 09:00 10/18/17 08:59 09/18/17 08:04 20 MG Insulin Detemir (Levemir Insulin) 50 units BID SC 09/17/17 21:00 10/17/17 20:59 09/18/17 08:10 50 UNITS Insulin Aspart (novoLOG ASPART) SLIDING SCALE If C... ACHS SC 09/17/17 16:15 10/17/17 16:14 09/18/17 08:10 14 UNITS Glucose (Glucose 40% Gel) 15-30 GRAMS 15 GRAMS... UD PRN PO 09/17/17 15:15 10/17/17 15:14 Glucose (Glucose Chew Tab) 4-8 Tablets 4 Tabl... UD PRN PO 09/17/17 15:15 10/17/17 15:14 Dextrose (Dextrose 50% 50ML Syringe) 25-50ML OF 50% DW IV FOR... UD PRN IV 09/17/17 15:15 10/17/17 15:14 Glucagon (Glucagon Inj) 1 mg UD PRN SQ 09/17/17 15:15 10/17/17 15:14 Albuterol/ Ipratropium (Duoneb) 3 ml QIDR INH 09/17/17 16:00 10/17/17 15:59 09/18/17 11:14 3 ML Ceftriaxone Sodium 1 gm/ Dextrose 50 ml @ 100 mls/hr Q24H IV 09/18/17 12:00 09/24/17 11:59 Doxycycline Hyclate 100 mg/ Dextrose 110 ml @ 50 mls/hr Q12H IV 09/17/17 18:00 09/24/17 17:59 09/18/17 06:14 50 MLS/HR Albuterol/ Ipratropium (Duoneb) 3 ml Q2H PRN INH 09/17/17 15:30 10/17/17 15:29 Methylprednisolone Sodium Succinate 60 mg/Syringe 0.96 ml @ 1.5 mls/min Q12H IV 09/18/17 00:00 10/18/17 00:00 09/18/17 00:18 1.5 MLS/MIN Hydralazine HCl (HydrALAZINE INJ) 10 mg Q4H PRN IV. 09/17/17 15:30 10/17/17 15:29 Lactobacillus Acidophilus (Floranex Tab) 4 tab TIDM PO 09/17/17 16:45 10/17/17 17:59 09/18/17 08:04 4 TAB Physical Exam Vital Signs Past 12 Hours Date Time Temp Pulse Resp B/P (MAP) Pulse Ox O2 Delivery O2 Flow Rate FiO2 09/18/17 12:01 36.6 80 18 148/68 (94) 98 09/18/17 11:14 109 18 89 Nasal Cannula 2.0 09/18/17 08:00 Nasal Cannula 3.0 09/18/17 07:54 36.9 86 18 157/80 (105) 95 09/18/17 07:16 85 18 93 Nasal Cannula 2.0 09/18/17 04:00 Nasal Cannula 3.0 09/18/17 03:33 36.6 86 18 146/77 (100) 91 Constitutional: General Apperance: obese Level of Distress: mild distress Psychiatric: Mental Status: active & alert Head: normocephalic Eyes: EOM: EOMI ENMT: normal ENT inspection, hearing grossly normal Neck: supple, no masses Lungs: Respiratory effort: no dyspnea Auscultation: deminished air movement, decreased breath sounds, expiratory wheezing, rales/crackles on the left, rales/crackles on the right Cardiovascular: Heart Auscultation: RRR, no murmurs, no rubs, no gallops Peripheral Pulses: Bruits: none appreciated Abdomen: Bowel Sounds: normal Inspection & Palpation: soft, no tenderness, guarding & rebound, no masses Musculoskeletal: normal strength (5/5 throughout) Extremities: pertinent finding (She has heavy stockings on her legs but clearly her legs are enlarged bilaterally) Neurologic: Cranial Nerves: grossly intact Sensation: grossly intact Data Laboratory Results: Last 24 Hours Test 09/17/17 12:50 09/17/17 12:56 09/17/17 12:57 09/17/17 16:11 Influenza Type A (RT-PCR) Neg for Influ A Influenza Type B (RT-PCR) Neg for Influ B Bedside Lactic Acid Venous 1.59 mmol/L White Blood Count 14.77 K/uL Red Blood Count 3.97 M/uL Hemoglobin 11.2 g/dL Hematocrit 34.2 % Mean Corpuscular Volume 86.1 fL Mean Corpuscular Hemoglobin 28.2 pg Mean Corpuscular Hemoglobin Concent 32.7 g/dl Platelet Count 346 K/uL Mean Platelet Volume 9.9 fL Neutrophils (%) (Auto) 63.3 % Lymphocytes (%) (Auto) 23.0 % Monocytes (%) (Auto) 7.0 % Eosinophils (%) (Auto) 1.8 % Basophils (%) (Auto) 0.4 % Neutrophils # (Auto) 9.33 K/uL Lymphocytes # (Auto) 3.40 K/uL Monocytes # (Auto) 1.04 K/uL Eosinophils # (Auto) 0.27 K/uL Basophils # (Auto) 0.06 K/uL RDW Standard Deviation 53.0 fL RDW Coefficient of Variation 17.0 % Immature Granulocyte % (Auto) 4.5 % Immature Granulocyte # (Auto) 0.67 K/uL Nucleated RBC Absolute Count (auto) 0.05 K/uL Nucleated Red Blood Cells % 0.4 % Prothrombin Time 11.3 SECONDS Prothromb Time International Ratio 1.1 Activated Partial Thromboplast Time 29.6 SECONDS Partial Thromboplastin Ratio 1.1 Sodium Level 136 mmol/L Potassium Level 3.9 mmol/L Chloride Level 101 mmol/L Carbon Dioxide Level 30 mmol/L Anion Gap 5.0 mmol/L Blood Urea Nitrogen 20 mg/dl Creatinine 1.15 mg/dl Est Creatinine Clear Calc Drug Dose 67.9 ml/min Estimated GFR () 59.5 Estimated GFR (Non- 51.3 BUN/Creatinine Ratio 17.5 Random Glucose 179 mg/dl Calcium Level 8.9 mg/dl Total Bilirubin 0.6 mg/dl Aspartate Amino Transf (AST/SGOT) 18 U/L Alanine Aminotransferase (ALT/SGPT) 32 U/L Alkaline Phosphatase 114 U/L Troponin I 0.183 ng/ml Pro-B-Type Natriuretic Peptide 506 pg/ml Total Protein 7.9 gm/dl Albumin 2.4 gm/dl Globulin 5.5 gm/dl Albumin/Globulin Ratio 0.4 Bedside Glucose 114 mg/dl Test 09/17/17 19:46 09/17/17 20:18 09/18/17 00:25 09/18/17 04:08 Troponin I 0.151 ng/ml 0.085 ng/ml Bedside Glucose 245 mg/dl 219 mg/dl Test 09/18/17 06:44 09/18/17 07:09 09/18/17 11:12 Bedside Glucose 235 mg/dl 325 mg/dl White Blood Count 15.30 K/uL Red Blood Count 4.36 M/uL Hemoglobin 11.7 g/dL Hematocrit 36.4 % Mean Corpuscular Volume 83.5 fL Mean Corpuscular Hemoglobin 26.8 pg Mean Corpuscular Hemoglobin Concent 32.1 g/dl RDW Standard Deviation 51.7 fL RDW Coefficient of Variation 17.0 % Platelet Count 365 K/uL Mean Platelet Volume 10.4 fL Sodium Level 134 mmol/L Potassium Level 4.3 mmol/L Chloride Level 99 mmol/L Carbon Dioxide Level 28 mmol/L Anion Gap 7.0 mmol/L Blood Urea Nitrogen 28 mg/dl Creatinine 1.24 mg/dl Est Creatinine Clear Calc Drug Dose 61.9 ml/min Estimated GFR () 54.3 Estimated GFR (Non- 46.8 BUN/Creatinine Ratio 22.2 Random Glucose 258 mg/dl Estimated Average Glucose 269 mg/dl Hemoglobin A1c 11.0 % Calcium Level 9.1 mg/dl Imaging: Her chest x-ray suggests mild pulmonary edema. EKG: Her presenting electrocardiogram shows sinus tachycardia but no other significant abnormality. A repeat electrocardiogram this morning is normal. Telemetry reviewed: Sinus rhythm and sinus tachycardia, PVCs Echocardiogram: An echocardiogram done on admission showed normal left ventricular size, normal valvular findings, no left ventricular hypertrophy and is a normal study. Assessment & Plan 1. Shortness of breath and pulmonary edema: I suspect this is noncardiac pulmonary edema, she appears to be a little bit dry today after a little bit of diuresis, her BNP is not elevated and her left ventricular function is normal. I would not treat it as cardiac CHF, although keeping her little bit on the dry side would probably be beneficial even for noncardiogenic pulmonary edema. I do not think her enzyme abnormalities had anything to do with her edema. 2. Elevated cardiac enzymes: I think on presentation her findings of tachycardia, severe hypertension and hypoxia are sufficient to explain her enzyme findings which are likely demand ischemia. This could be in the presence of underlying coronary disease however, although that may be difficult to diagnose. 3. Chest discomfort: Her description of the chest discomfort is worrisome, however it occurred when she was tachycardic and hypertensive (after taking a nebulizer treatment) and may be anginal with or without underlying coronary disease. It is certainly possible she has underlying coronary artery disease however. She has never had this type of discomfort before, even with exertion, but she has not been under this much stress in the past either. In the future we may want to consider some type of stress test but I would not consider invasive evaluation now and would not consider stress testing now. Thank you for allowing me to participate in her care.
[2017-09-18] MEDS: INSULIN REGULAR 250 UNITS in SODIUM CHLORIDE 0.9% 250ML 250 ML IV SCH (14:15)
[2017-09-18] MEDS ORDERED: DiphenhydrAMINE HCL 50 MG/ML VIAL IV PRN (15:15)
[2017-09-18] MEDS ORDERED: METHYLPREDNISOLONE IV 50 MG in SYRINGE 0 ML IV PRN (16:00)
[2017-09-18] MEDS: ENOXAPARIN 40 MG/0.4 ML SYR SC SCH (17:40)
[2017-09-19] VITALS (13 sets, daily range): BP systolic 128–171; BP diastolic 67–88; PULSE 69–100; TEMP 36.4–37; O2SAT 90–98
[2017-09-19] MEDS: LEVOTHYROXINE 100 MCG TAB PO SCH (05:45)
[2017-09-19] MEDS: DOXYCYCLINE IV 100 MG in DEXTROSE 5% 100ML 100 ML IV SCH (05:46)
[2017-09-19] MEDS: ALBUT/IPRATROP 3MG/0.5MG NEB 3 ML VIAL INH SCH ×4 (07:16→19:02)
[2017-09-19] MEDS: LISINOPRIL 20 MG TAB PO SCH (08:15)
[2017-09-19] MEDS: LACTOBACILLUS ACIDOPHILUS (FLORANEX) TAB PO SCH ×3 (08:15→17:02)
[2017-09-19] MEDS: ASPIRIN 81 MG ECTAB PO SCH (08:15)
[2017-09-19] MEDS: INSULIN ASPART 100 UNITS/ML 3 ML PEN SC SCH ×4 (08:19→21:17)
[2017-09-19] MEDS: INSULIN DETEMIR SC SCH ×2 (08:20→21:18)
[2017-09-19 08:28] LABS: CALCIUM 9.5 mg/dl (8.5-10.1); CREATININE 1.13 mg/dl (0.60-1.20); POTASSIUM 4.7 mmol/L (3.5-5.1)
[2017-09-19 09:07] LABS: HEMATOCRIT 39.1 % (37-47); HEMOGLOBIN 12.7 g/dL (12.0-16.0); MEAN CELL VOLUME 83.9 fL (80-100); MEAN CORPUSCULAR HEMOGLOBIN 27.3 pg (25-34); MEAN CORPUSCULAR HGB CONC 32.5 g/dl (32-36); PLATELET COUNT 382 K/uL (130-400); RED CELL DISTRIBUTION WIDTH CV 17.4 % (11.5-14.5); RED CELL DISTRIBUTION WIDTH SD 52.7 fL (36.4-46.3); WHITE BLOOD COUNT 18.75 K/uL (4.8-10.8)
--- NOTE | 2017-09-19 12:09 | PULMONARY CONSULTATION ---
DATE OF CONSULTATION: 09/19/2017 TIME: 11:30 a.m. REPORT OF CONSULTATION: The patient was seen in room #243 bed #1. She is a 61-year-old female who became ill approximately August. She relates that 3 days prior to then she had been taking care of her grandchildren, ages 4 and 1-1/2 and both were sick with fevers and respiratory illnesses. The patient developed a headache and fevers. The fevers persisted for about 4 days. She had temperatures as high as 102.7. Subsequently, she developed a cough. The cough was productive of brown sputum. There was no hemoptysis. Subsequently, she had increasing shortness of breath. On the 15 of September, she went to a walk-in clinic. She was given a nebulizer treatment. They ordered albuterol inhaler, Advair inhaler, and a nebulizer with albuterol for her. They did not order steroids because she is diabetic and her sugars run high. The patient's symptoms worsened. On the , she had worsening shortness of breath just going a few steps. She ultimately presented to the Emergency Room on the . The patient has had chest tightness. She does not describe having true chest pains. The fevers have no longer been present. In general, she feels a lot better. She feels that she is less short of breath. Her cough is much less. She states her also got sick with a respiratory tract infection. The patient does relate that she has had to sleep in a recliner for about a year because she has had shortness of breath. She also has had significant peripheral edema. This has required her to get treatment for lymphedema. The patient has had an elevated D-dimer. The D-dimer on the was 1300. The patient previously had a severe reaction to a CAT scan and she has had reactions to shellfish. She states she cannot even be in the room with shellfish cooking or she will get hives and shortness of breath. Thus, she is reluctant to undergo a CT angio of the chest. PAST PULMONARY HISTORY: Positive only for outpatient pneumonia 2 years ago. PAST MEDICAL HISTORY: 1. Diabetes type 2. 2. Thyroid cancer 10 years ago. 3. Cellulitis. 4. GERD. 5. Lymphedema. 6. Obesity. PAST SURGICAL HISTORY: Thyroidectomy - 2007. SOCIAL HISTORY: Tobacco - never. ETOH -- None. ALLERGIES: SHELLFISH, CONTRAST DYE, SULFITES. 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 FAMILY HISTORY: Mother living at age 82, has diabetes and vascular disease. Father in a motor vehicle accident. Brother who had transposition of the great vessels. He only 2 years ago, however. He did have multiple surgeries. REVIEW OF SYSTEMS: The patient does not think she snores. However, her apparently sleeps elsewhere as she is sleeping in a recliner. An average of 2 nights per week, she has markedly prolonged sleep onset insomnia. She feels this is when she has things on her mind. They apparently have to watch their grandchildren very frequently and her daughter has mental health issues. She awakens once during the night. This would be to go to the bathroom. She usually goes back to sleep readily. When I asked her if she naps, she said no. She ultimately admits that she dozes off, especially in the evening hours for a while. Her appetite is decreased from what it usually is. She thinks it is improving some. PHYSICAL EXAMINATION: VITAL SIGNS: The patient is a 61-year-old female who was cooperative, alert and oriented. She was in no distress at rest. Most recent temperature is 37 degrees. GENERAL: She has had no fevers during this hospital stay. HEENT: Pupils were reactive to light. Nares were clear. Mouth exam showed mild crowding in the posterior pharynx. Mallampati II would be noted. NECK: Palpation of the neck reveals no lymph nodes. HEART: Heart rate is 94 per minute. The rhythm was regular. Blood pressure is 171/88. LUNGS: Lung eli revealed mild to moderate rales and rhonchi bilaterally. There was faint wheezing. Oxygen saturation is 92% on 1 liter. ABDOMEN: Obese. Bowel sounds were present. There was no tenderness to palpation or masses. EXTREMITIES: The patient has compression stockings on both lower extremities. She appears to have chronic edema approximately 2+. IMAGING DATA: Chest x-ray on admission showed interstitial prominence. The radiologist felt that this would look most like interstitial edema. This was a change compared with her prior x-ray done 11/26/2015. However, her ProBNP was only 506. Thus, it is unlikely this would be congestive heart failure. LABORATORY DATA: White count on admission was 14.77, that is now up to 18.75. Hemoglobin was 11.2 and is now 12.7. Platelets were 346,000. The sed rate is elevated at 61. Coags were normal. Electrolytes show sodium 137, potassium 4.7, chloride 103, bicarb 29. The BUN is 37 with a creatinine of 1.13. Procalcitonin is 0.07. Troponins were elevated at 0.151 and then decreased down to 0.085. The initial troponin was 0.183. Liver functions were normal. Flu test was negative. IMPRESSION: 1. Acute respiratory failure with hypoxia. 2. Acute bronchitis. 3. Morbid obesity - BMI 56. 4. Rule out obstructive sleep apnea in light of obesity, diabetes, and chronic edema. 5. Entirely exclude a pulmonary embolism. COMMENTS: The patient's clinical course is certainly that of an infectious or inflammatory process. Her grandchildren were ill. She became ill with what sounded like flu-like symptoms. She had fevers. Ultimately, she developed cough, mucus and shortness of breath. I suspect this was a secondary bacterial infection. She does have an elevated D-dimer and cannot entirely exclude pulmonary emboli, but it would seem to be less likely. The patient's current medications from a respiratory perspective include ceftriaxone 1 gram q. 24 hours, methylprednisolone 60 mg q. 12 hours, doxycycline 100 mg q. 12 hours, neb treatments with albuterol/ipratropium, and p.r.n. treatments. I agree with the above. I believe the steroids can be decreased to 40 mg q. 12 hours, now that she is improving. She has a venous Doppler pending. If that is negative, I would likely do a V/Q scan to try and better exclude pulmonary emboli. The patient has been refusing the CT angio with prep because of her prior problems. I believe ideally it would be good for her to have a sleep study as an outpatient, perhaps even just a home sleep study as a screen for sleep apnea. This could be done when she is back to baseline. Thank you for asking me to assist in her care.
[2017-09-19] MEDS: METHYLPREDNISOLONE IV 40 MG in SYRINGE 0 ML IV SCH (12:26)
[2017-09-19] MEDS: CEFTRIAXONE SOD INJ 1 GM in DEXTROSE 5% ADD-VANTAGE 50ML 50 ML IV SCH (12:35)
--- NOTE | 2017-09-19 13:21 | DIAGNOSTIC IMAGING REPORT ---
BILATERAL LOWER EXTREMITY VENOUS DOPPLER CLINICAL HISTORY: Shortness of breath. Elevated d-dimer. COMPARISON STUDY: Right lower extremity venous Doppler February 17, 2013. TECHNIQUE: Sonography of the deep venous system of the bilateral lower extremities was performed. Compression and augmentation were evaluated. FINDINGS: The common femoral, superficial femoral and popliteal veins were compressible. Augmentation was normal. Flow was shown within the deep calf vessels. This exam was compromised due to suboptimal penetration. A 5.2 x 1.7 x 2 cm right popliteal cyst was noted. IMPRESSION: 1. Technically difficult exam but no evidence of deep venous thrombus within the bilateral lower extremities. 2. 5.2 x 1.7 x 2 cm right popliteal cyst. Electronically signed by: Mack Soto M.D. 09/19/2017 1:20 PM Dictated Date/Time: 09/19/2017 1:18 PM
--- NOTE | 2017-09-19 13:49 | Hospitalist Progress Note ---
Hospitalist Progress Note Date of Service Sep 19, 2017. Subjective Pt evaluation today including: conversation w/ patient, physical exam, chart review, lab review, review of studies, conversation w/ client consultant (Pulmonology - Dr. Ruiz), review of inpatient medication list Patient seen and evaluated. No acute events overnight. Continues to be NSR with short unsustained runs of atrial tach. She reports that she is feeling better today and was off O2 for approx. 1 hour but then had desats. Lungs are sounding better with some exp. wheeze but much improved from yesterdays exam. Discussed CTA and patient got emotional stating that she feels she is feeling better and is scared to attempt contrast to R/O PE Given her symptoms an infectious process is more likely but a small PE is still possible. Dopplers were negative and will pursue VQ scan. Discussed with Dr. Ruiz. Favors infectious/inflammatory process and recommend outpatient sleep study and wean of steroids. Constitutional: No fever, No chills Respiratory: + cough, + sputum, No wheezing, No shortness of breath Cardiovascular: No chest pain, No palpitations Abdomen: No pain, No nausea, No vomiting, No diarrhea, No constipation Musculoskeletal: + swelling (chronic lymphedema b/l legs), No calf pain Female : No dysuria Heme: No abnormal bleeding/bruising Skin: No rash Medications Current Inpatient Medications Medications (Trade) Dose Ordered Sig/Jason Route Start Time Stop Time Status Last Admin Dose Admin Enoxaparin Sodium (Lovenox Inj) 40 mg Q24H SC 09/17/17 18:00 10/17/17 17:59 09/18/17 17:40 40 MG Acetaminophen (Tylenol Tab) 650 mg Q4H PRN PO 09/17/17 15:00 10/17/17 14:59 09/18/17 04:24 650 MG Nitroglycerin (Nitrostat Tab) 0.4 mg UD PRN SL 09/17/17 15:00 10/17/17 14:59 Furosemide 40 mg/ Syringe 4 ml @ 4 mls/min BID17 IV 09/17/17 17:00 10/17/17 16:59 Future Hold 09/18/17 08:05 4 MLS/MIN Aspirin (Ecotrin Tab) 81 mg DAILY PO 09/18/17 09:00 10/18/17 08:59 09/19/17 08:15 81 MG Levothyroxine Sodium (Synthroid Tab) 100 mcg DAILYBB PO 09/18/17 06:00 10/18/17 06:59 09/19/17 05:45 100 MCG Lisinopril (Zestril Tab) 20 mg DAILY PO 09/18/17 09:00 10/18/17 08:59 09/19/17 08:15 20 MG Insulin Detemir (Levemir Insulin) 50 units BID SC 09/17/17 21:00 10/17/17 20:59 09/19/17 08:20 50 UNITS Glucose (Glucose 40% Gel) 15-30 GRAMS 15 GRAMS... UD PRN PO 09/17/17 15:15 10/17/17 15:14 Glucose (Glucose Chew Tab) 4-8 Tablets 4 Tabl... UD PRN PO 09/17/17 15:15 10/17/17 15:14 Dextrose (Dextrose 50% 50ML Syringe) 25-50ML OF 50% DW IV FOR... UD PRN IV 09/17/17 15:15 10/17/17 15:14 09/19/17 04:44 25 ML Glucagon (Glucagon Inj) 1 mg UD PRN SQ 09/17/17 15:15 10/17/17 15:14 Albuterol/ Ipratropium (Duoneb) 3 ml QIDR INH 09/17/17 16:00 10/17/17 15:59 09/19/17 14:36 3 ML Ceftriaxone Sodium 1 gm/ Dextrose 50 ml @ 100 mls/hr Q24H IV 09/18/17 12:00 09/24/17 11:59 09/19/17 12:35 100 MLS/HR Doxycycline Hyclate 100 mg/ Dextrose 110 ml @ 50 mls/hr Q12H IV 09/17/17 18:00 09/24/17 17:59 09/19/17 05:46 50 MLS/HR Albuterol/ Ipratropium (Duoneb) 3 ml Q2H PRN INH 09/17/17 15:30 10/17/17 15:29 Hydralazine HCl (HydrALAZINE INJ) 10 mg Q4H PRN IV. 09/17/17 15:30 10/17/17 15:29 Lactobacillus Acidophilus (Floranex Tab) 4 tab TIDM PO 09/17/17 16:45 10/17/17 17:59 09/19/17 12:26 4 TAB Miscellaneous Information (Consult Glycemic Management Pharmacy) 1 ea UD PRN N/A 09/18/17 13:17 10/18/17 13:16 Insulin Human Regular 250 units/ Sodium Chloride 252.5 ml @ 0 mls/hr Q24H IV 09/18/17 13:45 09/19/17 16:15 09/19/17 14:20 1 MLS/HR Methylprednisolone Sodium Succinate 40 mg/Syringe 0.64 ml @ 1.5 mls/min Q12H IV 09/19/17 12:00 10/18/17 00:00 09/19/17 12:26 1.5 MLS/MIN Insulin Aspart (novoLOG ASPART) SLIDING SCALE ACHS SC 09/19/17 16:15 10/19/17 16:14 Insulin Aspart (novoLOG ASPART) SLIDING SCALE 0000,0400 SC 09/20/17 00:00 09/20/17 04:01 Miscellaneous Information (Dc Iv Insulin Infusion) 1 ea 1615 ONCE N/A 09/19/17 16:15 09/19/17 16:16 Objective Vital Signs Date Time Temp Pulse Resp B/P (MAP) Pulse Ox O2 Delivery O2 Flow Rate FiO2 09/19/17 12:00 Nasal Cannula 2.0 09/19/17 11:54 36.8 69 18 160/81 (107) 96 09/19/17 11:23 90 18 92 Nasal Cannula 1.0 09/19/17 08:00 Nasal Cannula 2.0 09/19/17 07:57 37.0 74 18 171/88 (115) 98 09/19/17 07:17 87 18 98 Nasal Cannula 2.0 09/19/17 04:00 95 Nasal Cannula 2.0 09/19/17 03:38 36.4 90 18 144/75 (98) 92 2.0 09/19/17 00:10 154/67 (96) 94 2.0 09/19/17 00:01 96 Nasal Cannula 2.0 09/18/17 23:54 36.6 93 20 09/18/17 20:00 Nasal Cannula 2.0 09/18/17 19:45 163/68 (99) 09/18/17 19:21 87 18 93 Nasal Cannula 2.0 09/18/17 19:19 36.6 88 17 187/68 (107) 97 Nasal Cannula 2.0 09/18/17 16:00 36.8 90 20 150/70 (96) 98 2.0 09/18/17 16:00 Nasal Cannula 2.0 09/18/17 15:23 87 18 93 Nasal Cannula 2.0 Physical Exam General Appearance: WD/WN, no apparent distress Eyes: sclerae normal ENT: hearing grossly normal Neck: no JVD Respiratory/Chest: no respiratory distress, no accessory muscle use, + wheezing (scattered exp. wheeze mostly of L mid-lung field) Cardiovascular: regular rate, rhythm Abdomen: normal bowel sounds, non tender, soft Extremities: no calf tenderness, + swelling (b/l lymphedema - nonpitting) Neurologic/Psychiatric: alert Skin: normal color Laboratory Results Last 24 Hours Test 09/18/17 14:32 09/18/17 15:20 09/18/17 16:18 09/18/17 17:32 D-Dimer 1300 ug/L FEU Bedside Glucose 298 mg/dl 248 mg/dl 237 mg/dl Test 09/18/17 18:21 09/18/17 19:19 09/18/17 20:16 09/18/17 21:14 Bedside Glucose 276 mg/dl 211 mg/dl 199 mg/dl 201 mg/dl Test 09/18/17 22:20 09/18/17 23:31 09/19/17 00:29 09/19/17 01:31 Bedside Glucose 222 mg/dl 186 mg/dl 155 mg/dl 152 mg/dl Test 09/19/17 02:31 09/19/17 03:33 09/19/17 04:32 09/19/17 05:00 Bedside Glucose 134 mg/dl 113 mg/dl 95 mg/dl 147 mg/dl Test 09/19/17 06:01 09/19/17 06:55 09/19/17 07:34 09/19/17 07:48 Bedside Glucose 121 mg/dl 107 mg/dl 117 mg/dl White Blood Count 18.75 K/uL Red Blood Count 4.66 M/uL Hemoglobin 12.7 g/dL Hematocrit 39.1 % Mean Corpuscular Volume 83.9 fL Mean Corpuscular Hemoglobin 27.3 pg Mean Corpuscular Hemoglobin Concent 32.5 g/dl RDW Standard Deviation 52.7 fL RDW Coefficient of Variation 17.4 % Platelet Count 382 K/uL Mean Platelet Volume 10.0 fL Sodium Level 137 mmol/L Potassium Level 4.7 mmol/L Chloride Level 103 mmol/L Carbon Dioxide Level 29 mmol/L Anion Gap 5.0 mmol/L Blood Urea Nitrogen 37 mg/dl Creatinine 1.13 mg/dl Est Creatinine Clear Calc Drug Dose 68.0 ml/min Estimated GFR () 60.7 Estimated GFR (Non- 52.4 BUN/Creatinine Ratio 32.7 Random Glucose 101 mg/dl Calcium Level 9.5 mg/dl Test 09/19/17 08:06 09/19/17 08:56 09/19/17 09:21 09/19/17 10:08 Bedside Glucose 126 mg/dl 168 mg/dl 157 mg/dl Erythrocyte Sedimentation Rate 61 mm/hr C-Reactive Protein 4.32 mg/dl Procalcitonin 0.07 ng/ml Test 09/19/17 11:17 09/19/17 13:12 Bedside Glucose 151 mg/dl 232 mg/dl Assessment and Plan Ms. Molina is a 61 year old woman here for hypoxic respiratory failure Acute Hypoxic Respiratory Failure 2/2 Bronchitis vs PNA vs PE - Echo with EF 65-70% with no valvular abnormalities - BNP minimal however given BMI of 55 may be misleading - however do not feel that cardiac issues is the cause here - Dopplers neg for DVT and will order VQ scan to try and assess PE probability - given hypoxia/tachycardia/SOB/chest pain/trops/d-dimer/sedentary lifestyle - PE is a probability however infectious/inflammatory is more likely - No documented chronic pulmonary condition - would suspect a level of restrictive disease given obesity/hypoventilation syndrome - patient is working with outpatient weightloss program but reports difficulty with commitment due to family/life stressors as she largely cares for her grandchildren - Continue Doxycycline 100 mg BID and convert to Cefdinir 300 mg BID - Methylprednisolone 40 mg IV BID and possible conversion to po shortly - Continue nebulizer treatments - Pulmonology following - discussed with Dr. Ruiz - plan as above Atrial Tachycardia/Runs of PVCs: - Given body habitus there is likely some STEWART contributing - theses rhythms only are occurring at night - recommend outpatient sleep study Elevated Troponin: Demand Ischemia - Peaked at 0.183 and trended down - no further intervention necessary at this time - Appreciate cardiology's input - could consider future stress testing T2DM: A1c 11 - Plan to implement titration off of drip - glucose better controlled since initiation - Continue Levemir 50 units SC BID and SSI - Discussed Januvia with patient - she would like to stop this medication and just maintain insulin therapy. Her biggest concern is after illness is improved that she may experience hypoglycemia. Did try to educate patient on this and recommend that she continue this currently. Given her A1c is 11 she would like need adjustments and lows are minimal with Januvia. Patient is a long standing uncontrolled diabetic but does report she was able to get control previously. When talking about her DM she does get emotional about this because she says she is trying. There is area for continuing education about her current regimen. Would recommend F/U with PCP about this as ultimately long-term management will be the boone to success with her. - Appreciate pharmacy assistance with glycemic management HTN: - Lisinopril 20 mg daily DVT Prophylaxis: Lovenox 40 mg SC daily Code Status: FULL RESUSCITATION Disposition: - Possible D/C next 1-2 days pending examination and O2 wean Continued [facility] stay due to: multiple IV medications needed Discharge planning: home
--- NOTE | 2017-09-19 13:52 | Pharmacy Progress Note ---
Glycemic Control Progress Note Date of Service Sep 19, 2017. Scope Glycemic Pharmacist consulted for glycemic control to write orders per [facility] inpatient glycemic control protocol. Objective Accuchecks BSG (last 24hrs): Test 09/18/17 15:20 09/18/17 16:18 09/18/17 17:32 09/18/17 18:21 Bedside Glucose 298 mg/dl (70-90) 248 mg/dl (70-90) 237 mg/dl (70-90) 276 mg/dl (70-90) Test 09/18/17 19:19 09/18/17 20:16 09/18/17 21:14 09/18/17 22:20 Bedside Glucose 211 mg/dl (70-90) 199 mg/dl (70-90) 201 mg/dl (70-90) 222 mg/dl (70-90) Test 09/18/17 23:31 09/19/17 00:29 09/19/17 01:31 09/19/17 02:31 Bedside Glucose 186 mg/dl (70-90) 155 mg/dl (70-90) 152 mg/dl (70-90) 134 mg/dl (70-90) Test 09/19/17 03:33 09/19/17 04:32 09/19/17 05:00 09/19/17 06:01 Bedside Glucose 113 mg/dl (70-90) 95 mg/dl (70-90) 147 mg/dl (70-90) 121 mg/dl (70-90) Test 09/19/17 06:55 09/19/17 07:34 09/19/17 07:48 09/19/17 08:06 Bedside Glucose 107 mg/dl (70-90) 117 mg/dl (70-90) 126 mg/dl (70-90) Random Glucose 101 mg/dl (70-99) Test 09/19/17 09:21 09/19/17 10:08 09/19/17 11:17 09/19/17 13:12 Bedside Glucose 168 mg/dl (70-90) 157 mg/dl (70-90) 151 mg/dl (70-90) 232 mg/dl (70-90) HbA1c: Test 09/18/17 07:09 Hemoglobin A1c 11.0 % (4.5-5.6) H Outpatient Anti-Diabetic Meds Levemir 50 units SQ BID + Novolog 40 units SQ BID + Januvia 100 mg PO qam Assessment & Plan ASSESSMENT: * 61 yr old female admitted with acute respiratory failure secondary to CHF vs. pneumonia vs. bronchitis * Patient takes large doses of insulin as an outpatient with poor glycemic control evidenced by A1c of 11%. * IV insulin infusion has been ordered for severe steroid induced hyperglycemia. * Will overlap SQ basal insulin with IV infusion to allow for easier transition off infusion in the future. 09/19/17: * IV insulin infusion rates continue to decrease; currently infusing at 0.8 units/hr. * IV solu-medrol dose decreased to 40 mg IV every 12 hours * Fasting BSG at goal - no change to Lantus dose * Plan to transition off insulin drip at dinnertime today, unless drip is head earlier per protocol * CF/CR will be based off home dose of 180 units (CF 10/CR 3) but slightly more aggressive while patient remains on steroids PLAN FOR INPATIENT GLYCEMIC CONTROL: * Discontinue IV insulin infusion at dinnertime * Basal insulin * Continue LANTUS 50 units SQ BID * Bolus Insulin * NOVOLOG per scale ACHS * Lower goal range to 120 - 160 mg/dL * Correction factor: 8 * Carb ratio of 1 unit per 3 grams CHO consumed * Add overnight check with coverage at 00 and 04 for first night off IV infusion * Please note that the plan above was derived based on current level of insulin resistance and hospital stress. These recommendations are appropriate for inpatient admission only. Plan of care upon discharge will need to be reassessed to avoid potential outpatient hypo/hyperglycemia. Thank you.
[2017-09-19] MEDS: INSULIN REGULAR 250 UNITS in SODIUM CHLORIDE 0.9% 250ML 250 ML IV SCH (14:20)
[2017-09-19] MEDS ORDERED: DC IV INSULIN INFUSION ONE (16:15)
[2017-09-19] MEDS: ENOXAPARIN 40 MG/0.4 ML SYR SC SCH (17:02)
--- NOTE | 2017-09-19 17:09 | Cardiology Follow-Up ---
Subjective Date of Service: Sep 19, 2017. Pt evaluation today including: conversation w/ patient, physical exam, lab review, review of studies, review of inpatient medication list History of Present Illness This is a 61-year-old woman who developed a fever somewhere around 1 week before presentation, she subsequently developed a cough and productive brown sputum. She also developed shortness of breath, she was initially treated with nebulizers but became much more short of breath. She then developed chest discomfort and palpitations as well as worsening peripheral edema on top of her chronic lymphedema and came into the emergency room on September 17, 2017. There she was found to be hypoxic (84% oxygen saturation on room air), tachycardic at 103 bpm and hypertensive with a blood pressure reported at 193/ 55. Additionally her chest x-ray suggested pulmonary edema. Her initial troponin was 0.183, subsequently they dropped (0.151 and then 0.085). Her BNP was normal, her echocardiogram also was normal. She has risk factors for coronary disease but no documented coronary disease and no prior symptoms. I discussed her symptoms with her, she described taking her nebulizer treatment and having a racing heartbeat associated with chest, neck and mid scapular pain and shortness of breath. She also described shortness of breath with minimal exertion associated with chest heaviness before she came to the hospital. She is feeling much better, her breathing is better and she has had no further chest discomfort and no further feeling of her heart racing. Social History Smoking Status: Never Smoker History of Alcohol Use: No Review of Systems Respiratory: + cough, + wheezing, + shortness of breath, No sputum Cardiac: No chest pain Medications Cardiovascular: Item Value Date Time Aspirin 81 mg 09/18/17 0900 (Ecotrin Tab) DAILY/PO 09/19/17 0815 Lisinopril 20 mg 09/18/17 0900 (Zestril Tab) DAILY/PO 09/19/17 0815 Enoxaparin Sodium 40 mg 09/17/17 1800 (Lovenox Inj) Q24H/SC 09/18/17 1740 Objective Vital Signs Past 12 Hours Date Time Temp Pulse Resp B/P (MAP) Pulse Ox O2 Delivery O2 Flow Rate FiO2 09/19/17 07:57 37.0 74 18 171/88 (115) 98 09/19/17 07:17 87 18 98 Nasal Cannula 2.0 09/19/17 04:00 95 Nasal Cannula 2.0 09/19/17 03:38 36.4 90 18 144/75 (98) 92 2.0 09/19/17 00:10 154/67 (96) 94 2.0 09/19/17 00:01 96 Nasal Cannula 2.0 09/18/17 23:54 36.6 93 20 Last Recorded Weight-Kilograms: 134.300 Physical Exam Constitutional: General Apperance: obese Level of Distress: mild distress Lungs: Respiratory effort: no dyspnea Auscultation: deminished air movement, decreased breath sounds, expiratory wheezing, rales/crackles on the left, rales/crackles on the right Cardiovascular: Heart Auscultation: RRR, no murmurs, no rubs, no gallops Peripheral Pulses: Bruits: none appreciated Extremities: pertinent finding (She has heavy stockings on her legs but clearly her legs are enlarged bilaterally) Data Laboratory Results: Last 24 Hours Test 09/18/17 11:12 09/18/17 13:20 09/18/17 14:32 09/18/17 15:20 Bedside Glucose 325 mg/dl 322 mg/dl 298 mg/dl D-Dimer 1300 ug/L FEU Test 09/18/17 16:18 09/18/17 17:32 09/18/17 18:21 09/18/17 19:19 Bedside Glucose 248 mg/dl 237 mg/dl 276 mg/dl 211 mg/dl Test 09/18/17 20:16 09/18/17 21:14 09/18/17 22:20 09/18/17 23:31 Bedside Glucose 199 mg/dl 201 mg/dl 222 mg/dl 186 mg/dl Test 09/19/17 00:29 09/19/17 03:33 09/19/17 04:32 09/19/17 05:00 Bedside Glucose 155 mg/dl 113 mg/dl 95 mg/dl 147 mg/dl Test 09/19/17 06:01 09/19/17 06:55 09/19/17 07:34 09/19/17 08:56 Bedside Glucose 121 mg/dl 107 mg/dl White Blood Count 18.75 K/uL Red Blood Count 4.66 M/uL Hemoglobin 12.7 g/dL Hematocrit 39.1 % Mean Corpuscular Volume 83.9 fL Mean Corpuscular Hemoglobin 27.3 pg Mean Corpuscular Hemoglobin Concent 32.5 g/dl RDW Standard Deviation 52.7 fL RDW Coefficient of Variation 17.4 % Platelet Count 382 K/uL Mean Platelet Volume 10.0 fL Sodium Level 137 mmol/L Potassium Level 4.7 mmol/L Chloride Level 103 mmol/L Carbon Dioxide Level 29 mmol/L Anion Gap 5.0 mmol/L Blood Urea Nitrogen 37 mg/dl Creatinine 1.13 mg/dl Est Creatinine Clear Calc Drug Dose 68.0 ml/min Estimated GFR () 60.7 Estimated GFR (Non- 52.4 BUN/Creatinine Ratio 32.7 Random Glucose 101 mg/dl Calcium Level 9.5 mg/dl Erythrocyte Sedimentation Rate 61 mm/hr C-Reactive Protein 4.32 mg/dl Telemetry reviewed: Sinus rhythm, no significant arrhythmia Assessment and Plan 1. Shortness of breath and pulmonary edema: I suspect this is noncardiac pulmonary edema, she appears to be a little bit dry today, her BNP is not elevated and her left ventricular function is normal. I would not treat it as cardiac CHF, although keeping her little bit on the dry side would probably be beneficial even for noncardiogenic pulmonary edema. I do not think her enzyme abnormalities had anything to do with her edema. 2. Elevated cardiac enzymes: I think on presentation her findings of tachycardia, severe hypertension and hypoxia are sufficient to explain her enzyme findings which are likely demand ischemia. This could be in the presence of underlying coronary disease however, although that may be difficult to diagnose. 3. Chest discomfort: Her description of the chest discomfort is worrisome, however it occurred when she was tachycardic and hypertensive (after taking a nebulizer treatment) and may be anginal with or without underlying coronary disease. It is certainly possible she has underlying coronary artery disease however. She has never had this type of discomfort before, even with exertion, but she has not been under this much physical stress in the past either. She does have risk factors including family history. I think we should consider some type of stress test but I would not consider invasive evaluation now and would not consider stress testing now. I discussed this with her, she seems to confuse the evaluation for the pulmonary embolism with the evaluation for coronary artery disease. Thank you for allowing me to participate in her care.
[2017-09-19] MEDS: DOXYCYCLINE HYCLATE 100 MG CAP PO SCH (21:04)
[2017-09-20] VITALS (10 sets, daily range): BP systolic 132–176; BP diastolic 67–90; PULSE 77–100; TEMP 36.3–37; O2SAT 92–98
[2017-09-20] MEDS: METHYLPREDNISOLONE IV 40 MG in SYRINGE 0 ML IV SCH ×2 (00:14→13:14)
[2017-09-20] MEDS: INSULIN ASPART 100 UNITS/ML 3 ML PEN SC SCH ×5 (00:16→20:54)
[2017-09-20] MEDS: LEVOTHYROXINE 100 MCG TAB PO SCH (06:15)
[2017-09-20] MEDS: ALBUT/IPRATROP 3MG/0.5MG NEB 3 ML VIAL INH SCH ×4 (06:55→18:03)
[2017-09-20] MEDS: INSULIN DETEMIR SC SCH ×2 (07:51→20:55)
[2017-09-20] MEDS: DOXYCYCLINE HYCLATE 100 MG CAP PO SCH ×2 (07:54→20:50)
[2017-09-20] MEDS: LISINOPRIL 20 MG TAB PO SCH (07:55)
[2017-09-20] MEDS: ASPIRIN 81 MG ECTAB PO SCH (07:55)
[2017-09-20] MEDS: LACTOBACILLUS ACIDOPHILUS (FLORANEX) TAB PO SCH ×3 (07:56→17:26)
[2017-09-20 08:17] LABS: CALCIUM 9.8 mg/dl (8.5-10.1); CREATININE 1.1 mg/dl (0.60-1.20); POTASSIUM 4.7 mmol/L (3.5-5.1)
[2017-09-20 08:19] LABS: HEMATOCRIT 38.8 % (37-47); HEMOGLOBIN 12.4 g/dL (12.0-16.0); MEAN CELL VOLUME 85.1 fL (80-100); MEAN CORPUSCULAR HEMOGLOBIN 27.2 pg (25-34); MEAN PLATELET VOLUME 10.1 fL (7.4-10.4); NUCLEATED RED BLOOD CELL ABS 0.05 K/uL (0-0); PLATELET COUNT 421 K/uL (130-400); RED CELL DISTRIBUTION WIDTH CV 17.7 % (11.5-14.5); RED CELL DISTRIBUTION WIDTH SD 53.9 fL (36.4-46.3); WHITE BLOOD COUNT 16.87 K/uL (4.8-10.8)
[2017-09-20] MEDS ORDERED: CEFDINIR 300 MG CAP PO SCH (09:00)
--- NOTE | 2017-09-20 10:55 | Cardiology Follow-Up ---
Subjective Date of Service: Sep 20, 2017. Pt evaluation today including: conversation w/ patient, physical exam, lab review, review of studies, review of inpatient medication list History of Present Illness This is a 61-year-old woman who developed a fever somewhere around 1 week before presentation, she subsequently developed a cough and productive brown sputum. She also developed shortness of breath, she was initially treated with nebulizers but became much more short of breath. She then developed chest discomfort and palpitations as well as worsening peripheral edema on top of her chronic lymphedema and came into the emergency room on September 17, 2017. There she was found to be hypoxic (84% oxygen saturation on room air), tachycardic at 103 bpm and hypertensive with a blood pressure reported at 193/ 55. Additionally her chest x-ray suggested pulmonary edema. Her initial troponin was 0.183, subsequently they dropped (0.151 and then 0.085). Her BNP was normal, her echocardiogram also was normal. She has risk factors for coronary disease but no documented coronary disease and no prior symptoms. I discussed her symptoms with her, she described taking her nebulizer treatment and having a racing heartbeat associated with chest, neck and mid scapular pain and shortness of breath. She also described shortness of breath with minimal exertion associated with chest heaviness before she came to the hospital. She was feeling well but has been quite inactive, this morning she was walking around the hallway and developed sudden onset of symptoms of shortness of breath , her heart pounding as well as substernal and mid scapular chest pain. She went back to the room, the shortness of breath is improved as is the heart pounding but she still has the discomfort. This is reminiscent of what she described when she came into the emergency room. Social History Smoking Status: Never Smoker History of Alcohol Use: No Review of Systems Respiratory: + cough, + dyspnea on exertion, No sputum Cardiac: + see HPI, + chest pain Medications Cardiovascular: Item Value Date Time Aspirin 81 mg 09/18/17 0900 (Ecotrin Tab) DAILY/PO 09/20/17 0755 Lisinopril 20 mg 09/18/17 0900 (Zestril Tab) DAILY/PO 09/20/17 0755 Enoxaparin Sodium 40 mg 09/17/17 1800 (Lovenox Inj) Q24H/SC 09/19/17 1702 Objective Vital Signs Past 12 Hours Date Time Temp Pulse Resp B/P (MAP) Pulse Ox O2 Delivery O2 Flow Rate FiO2 09/20/17 08:00 Nasal Cannula 2.0 09/20/17 07:22 36.3 83 18 166/80 (108) 95 Room Air 09/20/17 06:59 79 18 96 Nasal Cannula 2.0 09/20/17 04:52 36.7 85 18 159/90 (113) 93 Nasal Cannula 2.0 09/20/17 04:30 Nasal Cannula 2.0 93 09/20/17 00:55 92 Nasal Cannula 2.0 09/19/17 23:52 36.8 95 18 156/82 (106) 92 Nasal Cannula 2.0 Last Recorded Weight-Kilograms: 133.800 Physical Exam Constitutional: General Apperance: obese Level of Distress: moderate distress Lungs: Respiratory effort: no dyspnea Auscultation: deminished air movement, decreased breath sounds, expiratory wheezing, rales/crackles on the left, rales/crackles on the right Cardiovascular: Heart Auscultation: RRR, no murmurs, no rubs, no gallops Peripheral Pulses: Bruits: none appreciated Extremities: pertinent finding (She has heavy stockings on her legs but clearly her legs are enlarged bilaterally) Data Laboratory Results: Last 24 Hours Test 09/19/17 11:17 09/19/17 13:12 09/19/17 14:14 09/19/17 15:21 Bedside Glucose 151 mg/dl 232 mg/dl 190 mg/dl 191 mg/dl Test 09/19/17 16:17 09/19/17 20:53 09/20/17 00:11 09/20/17 04:38 Bedside Glucose 195 mg/dl 229 mg/dl 203 mg/dl 130 mg/dl Test 09/20/17 07:16 09/20/17 07:35 White Blood Count 16.87 K/uL Red Blood Count 4.56 M/uL Hemoglobin 12.4 g/dL Hematocrit 38.8 % Mean Corpuscular Volume 85.1 fL Mean Corpuscular Hemoglobin 27.2 pg Mean Corpuscular Hemoglobin Concent 32.0 g/dl RDW Standard Deviation 53.9 fL RDW Coefficient of Variation 17.7 % Platelet Count 421 K/uL Mean Platelet Volume 10.1 fL Nucleated RBC Absolute Count (auto) 0.05 K/uL Nucleated Red Blood Cells % 0.3 % Sodium Level 137 mmol/L Potassium Level 4.7 mmol/L Chloride Level 101 mmol/L Carbon Dioxide Level 29 mmol/L Anion Gap 7.0 mmol/L Blood Urea Nitrogen 41 mg/dl Creatinine 1.10 mg/dl Est Creatinine Clear Calc Drug Dose 69.7 ml/min Estimated GFR () 62.8 Estimated GFR (Non- 54.1 BUN/Creatinine Ratio 36.8 Random Glucose 136 mg/dl Calcium Level 9.8 mg/dl Bedside Glucose 146 mg/dl Imaging: Chest x-ray done during chest discomfort is unremarkable EKG: Sinus rhythm, poor R-wave progression, no acute changes. Done during chest discomfort. Telemetry reviewed: Sinus rhythm, sinus tachycardia while active, no abnormal rhythm. Assessment and Plan 1. Shortness of breath and pulmonary edema on admission: I suspect this is noncardiac pulmonary edema, she appears to be a little bit dry today, her BNP was not elevated and her left ventricular function is normal. I would not treat it as cardiac CHF, although keeping her little bit on the dry side would probably be beneficial even for noncardiogenic pulmonary edema. I do not think her enzyme abnormalities had anything to do with her edema. Her chest x-ray has improved as of today's. 2. Elevated cardiac enzymes: I think on presentation her findings of tachycardia, severe hypertension and hypoxia are sufficient to explain her enzyme findings which are likely demand ischemia. This could be in the presence of underlying coronary disease however, although that may be difficult to diagnose. Now with recurrent chest discomfort I want to see whether her enzymes elevate, the first 1 is negative. 3. Chest discomfort: Her description of the chest discomfort remains worrisome , in the past she did not have it with exertion but now she had exertional chest discomfort associated with shortness of breath and palpitations while walking in the hallway. Her electrocardiogram does not show acute changes, however I cannot exclude ischemia definitively. I am going to order serial cardiac enzymes, the first troponin is negative. We may have to do a stress test before she goes home but I do not think it would be beneficial with her current status. Thank you for allowing me to participate in her care.
[2017-09-20] MEDS: NITROGLYCERIN 0.4 MG SL PER TAB CHARGE SL PRN ×2 (10:56→11:05)
--- NOTE | 2017-09-20 11:32 | Pharmacy Progress Note ---
Glycemic Control Progress Note Date of Service Sep 20, 2017. Scope Glycemic Pharmacist consulted for glycemic control to write orders per [facility] inpatient glycemic control protocol. Objective Accuchecks BSG (last 24hrs): Test 09/19/17 13:12 09/19/17 14:14 09/19/17 15:21 09/19/17 16:17 Bedside Glucose 232 mg/dl (70-90) 190 mg/dl (70-90) 191 mg/dl (70-90) 195 mg/dl (70-90) Test 09/19/17 20:53 09/20/17 00:11 09/20/17 04:38 09/20/17 07:16 Bedside Glucose 229 mg/dl (70-90) 203 mg/dl (70-90) 130 mg/dl (70-90) Random Glucose 136 mg/dl (70-99) Test 09/20/17 07:35 09/20/17 11:04 Bedside Glucose 146 mg/dl (70-90) 132 mg/dl (70-90) HbA1c: Test 09/18/17 07:09 Hemoglobin A1c 11.0 % (4.5-5.6) H Outpatient Anti-Diabetic Meds Levemir 50 units SQ BID + Novolog 40 units SQ BID + Januvia 100 mg PO qam Assessment & Plan ASSESSMENT: * 61 yr old female admitted with acute respiratory failure secondary to CHF vs. pneumonia vs. bronchitis * Patient takes large doses of insulin as an outpatient with poor glycemic control evidenced by A1c of 11%. * IV insulin infusion has been ordered for severe steroid induced hyperglycemia. * Will overlap SQ basal insulin with IV infusion to allow for easier transition off infusion in the future. 09/19/17: * IV insulin infusion rates continue to decrease; currently infusing at 0.8 units/hr. * IV solu-medrol dose decreased to 40 mg IV every 12 hours * Fasting BSG at goal - no change to Lantus dose * Plan to transition off insulin drip at dinnertime today, unless drip is head earlier per protocol * CF/CR will be based off home dose of 180 units (CF 10/CR 3) but slightly more aggressive while patient remains on steroids 09/20/17: * Patient has been decently controlled off the IV insulin infusion. She did have an elevated BSG with dinner and at HS yesterday. * Fasting BSG of 146 mg/dL is near goal. No change to basal insulin at this time. * If post-prandial BSGs remain >180, I will tighten carb ratio to 2. I did not tighten yesterday since steroid dose was decreased. PLAN FOR INPATIENT GLYCEMIC CONTROL: * Basal insulin * Continue LANTUS 50 units SQ BID * Bolus Insulin * NOVOLOG per scale ACHS * Lower goal range to 120 - 160 mg/dL * Correction factor: 8 * Carb ratio of 1 unit per 3 grams CHO consumed DISCHARGE RECOMMENDATIONS: * A1c of 11% indicates poor outpatient glycemic control. * Patient has DM f/u appointment already scheduled for the second week of September. Continue to titrate regimen per outpatient provider. Thank you.
--- NOTE | 2017-09-20 11:45 | DIAGNOSTIC IMAGING REPORT ---
CHEST ONE VIEW PORTABLE HISTORY: 61 years-old Female chest pain acute atypical chest pain COMPARISON: Chest radiograph 09/17/2017 TECHNIQUE: Portable AP view of the chest FINDINGS: Cardiac silhouette is again mildly enlarged. There is slight improvement of the previously described mild pulmonary edema with improved aeration of the bilateral lungs. There is no pneumothorax or large pleural effusion. Mild right hemidiaphragmatic elevation with minimal linear subsegmental opacities suggesting atelectasis. The bones of the chest appear grossly intact. IMPRESSION: 1. Cardiomegaly with improved pulmonary edema. 2. Minimal subsegmental opacities suggest atelectasis. The above report was generated using voice recognition software. It may contain grammatical, syntax or spelling errors. Electronically signed by: Aramis Katz M.D. 09/20/2017 11:43 AM Dictated Date/Time: 09/20/2017 11:41 AM
--- NOTE | 2017-09-20 12:00 | PULMONARY PROGRESS NOTE ---
DATE: 09/20/2017 TIME: 11:35 a.m. SUBJECTIVE: The patient had chest pain within the past half hour to 1 hour. She states she was walking at that time. She feels it go from the front to the back and somewhat into her neck. She was given 2 nitros. The first did not seem to help at all. The pain seemed to subside somewhat after the second nitro. She is still having some pain. The patient was quite anxious. She is somewhat short of breath but I think it is because she is scared with the chest pain. Dr. Hurley evaluated the patient. She did have an EKG done apparently. OBJECTIVE: GENERAL: The patient looks anxious. She looks a little short of breath. Temperature is 37. EARS, NOSE, THROAT: Unchanged. VITAL SIGNS: Heart rate is 100 per minute. The rhythm was regular. Blood pressure 132/68. LUNGS: The lung eli sounded clear. They were somewhat diminished. She was splinting slightly. Saturation was 93%. I believe this was on 2 liters, but it was not labeled as such. DATA: She had an EKG that did not show acute changes. LABORATORY DATA: White count today is 16.87. Hemoglobin 12.4. Platelets 421,000. Electrolytes show sodium 137, potassium 4.7, chloride 101, and bicarb 29. BUN 41 with a creatinine of 1.1. Another troponin is pending. IMAGING DATA: She had a chest x-ray done portable in her room. A preliminary look at this on the portable x-ray machine itself did not show significant abnormalities other than the very mild interstitial prominence seen previously. The official report is pending. IMPRESSIONS: 1. Acute respiratory failure with hypoxia. 2. Acute bronchitis. 3. Chest pain -- rule out PE. 4. Obesity. 5. Rule out obstructive sleep apnea. 6. Elevated sedimentation rate and leukocytosis. COMMENTS: The patient is now down for a VQ scan. We will reevaluate that when that is completed. I would not make any adjustments at least until we see the results of the VQ. She denied having heartburn.
--- NOTE | 2017-09-20 13:03 | DIAGNOSTIC IMAGING REPORT ---
NUCLEAR MEDICINE VENTILATION/PERFUSION SCAN CLINICAL HISTORY: Elevated d-dimer, dyspnea and hypoxia. COMPARISON: Chest radiograph September 20, 2017. TECHNIQUE: For the ventilation portion of this exam, 32 mCi of DTPA was inhaled at 12:10 PM on September 20, 2017. Immediately following inhalation, imaging of the chest was carried out in the anterior, posterior, left lateral, right lateral, LPO, RPO, NAMIBIAN and ALANIS projections. For the perfusion portion of exam, 5.6 mCi of technetium 99m MAA was injected IV at 12:35 PM on September 20, 2017. Immediately following injection, imaging of the chest was carried out in the same projections. FINDINGS: Apparent central radiotracer deposition is noted within the left lung. Ventilation images are technically compromised. However, no mismatched defects are identified. This study is considered low probability for pulmonary embolus. IMPRESSION: Low probability for pulmonary embolus. Electronically signed by: Mack Soto M.D. 09/20/2017 1:02 PM Dictated Date/Time: 09/20/2017 1:00 PM
--- NOTE | 2017-09-20 16:12 | Progress Note ---
Subjective Date of Service: Sep 20, 2017. Subjective Pt evaluation today including: conversation w/ patient, physical exam, chart review, lab review, review of studies, conversation w/ telesales consultant, review of inpatient medication list Development chest pain this morning, she described the chest pain was dull pain , in the middle of the chest , radiation to the back, lasting about 3-4 minutes. Which resolved after 2 nitro, denies acid reflux, denies heartburn, still has some cough and mild white sputum, deny persistent chest pain Problem List Medical Problems: (1) Colitis Status: Acute (2) Elevated troponin Status: Acute (3) Hypoxia Status: Acute (4) Pre-syncope Status: Acute (5) Wheezing Status: Acute Review of Systems Constitutional: No fever, No chills, No sweats, No weight loss, No weakness, No fatigue, No problem reported Eyes: No worsening of vision, No eye pain, No redness, No discharge, No diplopia ENT: No hearing loss, No unusual epistaxis, No nasal symptoms, No sore throat, No tinnitus, No dental problems, No trouble swallowing Respiratory: No cough, No sputum, No wheezing, No shortness of breath, No dyspnea on exertion, No dyspnea at rest, No hemoptysis Cardiac: + see HPI, + edema (Bilateral lower extremity chronic lymphedema which is not new), No chest pain, No orthopnea, No PND, No claudication, No palpitations Abdomen: No pain, No nausea, No vomiting, No diarrhea, No constipation Musculoskeletal: No joint pain, No muscle pain, No swelling, No calf pain Female : No dysuria, No urinary frequency, No hematuria, No incontinence, No abnormal vaginal bleeding, No vaginal discharge Neurologic: No memory loss, No paralysis, No weakness, No numbness/tingling, No vertigo, No balance problems Psychiatric: No depression symptoms, No anhedonism, No anxiety, No insomnia, No substance abuse Heme: No abnormal bleeding/bruising, No clotting problems, No swollen lymph nodes, No night sweats Endo: No fatigue, No excessive thirst, No excessive urination Skin: No rash, No itch, No new/changing skin lesions, No color change, No bleeding Objective Vital Signs Date Time Temp Pulse Resp B/P (MAP) Pulse Ox O2 Delivery O2 Flow Rate FiO2 09/20/17 15:30 36.6 81 19 176/67 (103) 96 Nasal Cannula 2.0 09/20/17 12:00 Nasal Cannula 2.0 09/20/17 11:31 37.0 89 18 132/68 (89) 93 09/20/17 10:47 100 18 167/83 (111) 95 Nasal Cannula 2.0 09/20/17 08:00 Nasal Cannula 2.0 09/20/17 07:22 36.3 83 18 166/80 (108) 95 Room Air 09/20/17 06:59 79 18 96 Nasal Cannula 2.0 09/20/17 04:52 36.7 85 18 159/90 (113) 93 Nasal Cannula 2.0 09/20/17 04:30 Nasal Cannula 2.0 93 09/20/17 00:55 92 Nasal Cannula 2.0 09/19/17 23:52 36.8 95 18 156/82 (106) 92 Nasal Cannula 2.0 09/19/17 20:52 36.5 100 20 128/73 (91) 91 Nasal Cannula 2.0 09/19/17 20:00 Nasal Cannula 1.0 09/19/17 19:00 100 18 90 Nasal Cannula 1.0 Physical Exam General Appearance: WD/WN, no apparent distress, + obese Eyes: normal inspection, PERRL, EOMI, sclerae normal ENT: normal ENT inspection, hearing grossly normal, pharynx normal Neck: supple, no adenopathy, thyroid normal, no JVD, no carotid bruits, trachea midline Respiratory/Chest: chest non-tender, normal breath sounds, no respiratory distress, no accessory muscle use, + decreased breath sounds, + rales, + wheezing (Occasional) Cardiovascular: regular rate, rhythm, no edema, no gallop, no JVD, no murmur Abdomen: normal bowel sounds, non tender, soft, no organomegaly, no pulsatile mass Extremities: normal range of motion, normal inspection, no calf tenderness, normal capillary refill, pelvis stable, + pertinent finding (Chronic lymphedema stocking) Neurologic/Psychiatric: wedding consultant II-XII nml as tested, no motor/sensory deficits, alert, normal mood/affect, oriented x 3 Skin: normal color, warm/dry, no rash Lymphatic: no adenopathy Laboratory Results Last 24 Hours Test 09/19/17 16:17 09/19/17 20:53 3/1/18 00:11 09/20/17 04:38 Bedside Glucose 195 mg/dl 229 mg/dl 203 mg/dl 130 mg/dl Test 09/20/17 07:16 09/20/17 07:35 09/20/17 11:04 White Blood Count 16.87 K/uL Red Blood Count 4.56 M/uL Hemoglobin 12.4 g/dL Hematocrit 38.8 % Mean Corpuscular Volume 85.1 fL Mean Corpuscular Hemoglobin 27.2 pg Mean Corpuscular Hemoglobin Concent 32.0 g/dl RDW Standard Deviation 53.9 fL RDW Coefficient of Variation 17.7 % Platelet Count 421 K/uL Mean Platelet Volume 10.1 fL Nucleated RBC Absolute Count (auto) 0.05 K/uL Nucleated Red Blood Cells % 0.3 % Sodium Level 137 mmol/L Potassium Level 4.7 mmol/L Chloride Level 101 mmol/L Carbon Dioxide Level 29 mmol/L Anion Gap 7.0 mmol/L Blood Urea Nitrogen 41 mg/dl Creatinine 1.10 mg/dl Est Creatinine Clear Calc Drug Dose 69.7 ml/min Estimated GFR () 62.8 Estimated GFR (Non- 54.1 BUN/Creatinine Ratio 36.8 Random Glucose 136 mg/dl Calcium Level 9.8 mg/dl Bedside Glucose 146 mg/dl 132 mg/dl Troponin I 0.016 ng/ml Assessment and Plan Ms. Molina is a 61 year old woman here for hypoxic respiratory failure Episode of chest pain this morning which required 2 nitro, so far EKG and cardiac enzymes troponin is negative, Acute Hypoxic Respiratory Failure 2/2 Bronchitis vs PNA vs PE: Likely because of bronchitis, - Echo with EF 65-70% with no valvular abnormalities - BNP minimal - BMI of 55 - Dopplers neg for DVT -VQ scan is low probability of PE Were discussed with greenhouse assistant possible need stress echo Continue Doxycycline 100 mg BID and convert to Cefdinir 300 mg BID DC Methylprednisolone 40 mg IV BID , start oral prednisone 20 twice daily Continue nebulizer treatments Uncontrolled diabetic T2DM: A1c 11, continue current HTN: - Lisinopril 20 mg daily DVT Prophylaxis: Lovenox 40 mg SC daily Code Status: FULL RESUSCITATION Disposition: - Possible D/C next 1-2 days pending examination and O2 wean Continued [facility] stay due to: multiple IV medications needed Discharge planning: home
[2017-09-20] MEDS: ENOXAPARIN 40 MG/0.4 ML SYR SC SCH (17:26)
[2017-09-20] MEDS ORDERED: NURSING VERBAL MED ORDER ONE (19:00)
[2017-09-20] MEDS: LEVALBUTEROL 0.63MG/3 ML NEB INH SCH (21:05)
[2017-09-21] VITALS (9 sets, daily range): BP systolic 118–161; BP diastolic 72–92; PULSE 68–87; TEMP 36.7–37; O2SAT 91–99
[2017-09-21] MEDS: LEVALBUTEROL 0.63MG/3 ML NEB INH SCH ×4 (02:07→19:50)
[2017-09-21 03:51] LABS: BLOOD UREA NITROGEN 41 mg/dl (7-18); CALCIUM 9.2 mg/dl (8.5-10.1); CARBON DIOXIDE 25 mmol/L (21-32); CREATININE 1.18 mg/dl (0.60-1.20); GLUCOSE 167 mg/dl (70-99); POTASSIUM 4.7 mmol/L (3.5-5.1); SODIUM 136 mmol/L (136-145)
[2017-09-21 04:54] LABS: HEMOGLOBIN 12.2 g/dL (12.0-16.0); MEAN CELL VOLUME 86.5 fL (80-100); MEAN CORPUSCULAR HEMOGLOBIN 27.1 pg (25-34); MEAN CORPUSCULAR HGB CONC 31.3 g/dl (32-36); PLATELET COUNT 329 K/uL (130-400); WHITE BLOOD COUNT 15.71 K/uL (4.8-10.8)
[2017-09-21] MEDS: LEVOTHYROXINE 100 MCG TAB PO SCH (05:45)
[2017-09-21] MEDS: LACTOBACILLUS ACIDOPHILUS (FLORANEX) TAB PO SCH ×3 (07:30→17:41)
[2017-09-21] MEDS: LISINOPRIL 20 MG TAB PO SCH (07:59)
[2017-09-21] MEDS: DOXYCYCLINE HYCLATE 100 MG CAP PO SCH ×2 (07:59→20:55)
[2017-09-21] MEDS: ASPIRIN 81 MG ECTAB PO SCH (08:00)
[2017-09-21] MEDS: INSULIN ASPART 100 UNITS/ML 3 ML PEN SC SCH ×4 (08:17→20:56)
[2017-09-21] MEDS ORDERED: INSULIN DETEMIR SC ONE (09:00)
[2017-09-21] MEDS ORDERED: INSULIN DETEMIR SC SCH (09:00)
--- NOTE | 2017-09-21 09:33 | Cardiology Follow-Up ---
Subjective Date of Service: Sep 21, 2017. Pt evaluation today including: conversation w/ patient, physical exam, lab review, review of studies, review of inpatient medication list History of Present Illness This is a 61-year-old woman who developed a fever somewhere around 1 week before presentation, she subsequently developed a cough and productive brown sputum. She also developed shortness of breath, she was initially treated with nebulizers but became much more short of breath. She then developed chest discomfort and palpitations as well as worsening peripheral edema on top of her chronic lymphedema and came into the emergency room on September 17, 2017. There she was found to be hypoxic (84% oxygen saturation on room air), tachycardic at 103 bpm and hypertensive with a blood pressure reported at 193/ 55. Additionally her chest x-ray suggested pulmonary edema. Her initial troponin was 0.183, subsequently they dropped (0.151 and then 0.085). Her BNP was normal, her echocardiogram also was normal. She has risk factors for coronary disease but no documented coronary disease and no prior symptoms. I discussed her symptoms with her, she described taking her nebulizer treatment and having a racing heartbeat associated with chest, neck and mid scapular pain and shortness of breath. She also described shortness of breath with minimal exertion associated with chest heaviness before she came to the hospital. She was feeling well but had been quite inactive, yesterday morning she was walking around the hallway and developed sudden onset of symptoms of shortness of breath, her heart pounding as well as substernal and mid scapular chest pain. She went back to the room, the shortness of breath is improved as is the heart pounding but she still had the discomfort. This is reminiscent of what she described when she came into the emergency room. Enzymes and ECG were unchanged however. Today she feels well, no complaints but is worried about being active. Social History Smoking Status: Never Smoker History of Alcohol Use: No Review of Systems Respiratory: No cough, No sputum, No wheezing, No shortness of breath, No dyspnea on exertion, No dyspnea at rest, No hemoptysis Cardiac: + see HPI, + edema (Bilateral lower extremity chronic lymphedema which is not new), No chest pain, No orthopnea, No PND, No claudication, No palpitations Objective Vital Signs Past 12 Hours Date Time Temp Pulse Resp B/P (MAP) Pulse Ox O2 Delivery O2 Flow Rate FiO2 09/21/17 08:00 Nasal Cannula 2.0 09/21/17 07:57 37.0 70 18 156/74 (101) 96 09/21/17 07:44 73 15 95 Nasal Cannula 2.0 09/21/17 04:00 Nasal Cannula 2.0 09/21/17 03:50 36.8 83 22 161/81 (107) 97 Nasal Cannula 2.0 09/21/17 02:07 79 18 98 Nasal Cannula 2.0 09/20/17 23:59 Nasal Cannula 2.0 09/20/17 23:43 36.8 86 18 142/83 (102) 98 Nasal Cannula 2.0 Last Recorded Weight-Kilograms: 131.700 Physical Exam Constitutional: General Apperance: obese Level of Distress: moderate distress Lungs: Respiratory effort: no dyspnea Auscultation: deminished air movement, decreased breath sounds, expiratory wheezing Cardiovascular: Heart Auscultation: RRR, no murmurs, no rubs, no gallops Peripheral Pulses: Bruits: none appreciated Extremities: pertinent finding (She has heavy stockings on her legs but clearly her legs are enlarged bilaterally) Data Laboratory Results: Last 24 Hours Test 09/20/17 11:04 09/20/17 16:30 09/20/17 19:28 09/20/17 20:29 Bedside Glucose 132 mg/dl 123 mg/dl 216 mg/dl Troponin I 0.016 ng/ml < 0.015 ng/ml Test 09/21/17 03:10 09/21/17 07:57 White Blood Count 15.71 K/uL Red Blood Count 4.51 M/uL Hemoglobin 12.2 g/dL Hematocrit 39.0 % Mean Corpuscular Volume 86.5 fL Mean Corpuscular Hemoglobin 27.1 pg Mean Corpuscular Hemoglobin Concent 31.3 g/dl Platelet Count 329 K/uL Sodium Level 136 mmol/L Potassium Level 4.7 mmol/L Chloride Level 104 mmol/L Carbon Dioxide Level 25 mmol/L Anion Gap 7.0 mmol/L Blood Urea Nitrogen 41 mg/dl Creatinine 1.18 mg/dl Est Creatinine Clear Calc Drug Dose 65.0 ml/min Estimated GFR () 57.6 Estimated GFR (Non- 49.7 BUN/Creatinine Ratio 34.4 Random Glucose 167 mg/dl Calcium Level 9.2 mg/dl Troponin I < 0.015 ng/ml Bedside Glucose 161 mg/dl Telemetry reviewed: Sinus rhythm, no significant abnormality Assessment and Plan 1. Shortness of breath and pulmonary edema on admission: I suspect this was noncardiac pulmonary edema. I would mostly control fluid intake. 2. Elevated cardiac enzymes: I think on presentation her findings of tachycardia, severe hypertension and hypoxia are sufficient to explain her enzyme findings which are likely demand ischemia. This could be in the presence of underlying coronary disease however, although that may be difficult to diagnose. Now with recurrent chest discomfort her enzymes have been negative which would go along with lack of significant obstructive disease. 3. Chest discomfort: Her description of the chest discomfort remains worrisome , in the past she did not have it with exertion but now she had exertional chest discomfort associated with shortness of breath and palpitations while walking in the hallway. Her electrocardiogram does not show acute changes, and her enzymes were negative but I think we do need a stress test at some point. I would not do it today, and probably not even during this hospitalization. I do not think we would get a good test considering the status of her lungs currently. Thank you for allowing me to participate in her care.
--- NOTE | 2017-09-21 11:25 | Pharmacy Progress Note ---
Pharmacy Glycemic Short Note 2 Date of Service Sep 21, 2017. OUTPATIENT ANTIDIABETIC REGIMEN: * Levemir 50 units SQ BID * Novolog 40 units SQ BID * Januvia 100 mg PO qam * A1c = 11% on 09/18/17 ASSESSMENT: * 61yo T2DM female with poor outpatient control per recent A1c * Pt with severe, sustained hyperglycemia on 09/18/17, requiring IV insulin infusion x ~24hrs * SQ basal bolus insulin regimen continued along with IV insulin infusion due to large SQ insulin doses needed. Did not want to lose steady state with SQ dosing. IV insulin infusion was essentially serving as "correctional" insulin for steroid induced hyperglycemia and poor baseline control. * Pt transitioned off of IV insulin infusion on 09/19/17 * Steroid dose continues to taper. This should yield an improvement in BSGs * Patient has received 122 units of insulin over the past 24hrs * 100 units of basal insulin with Lantus * 22 units of prandial insulin with NovoLog * Regimen is heavily weighted towards basal insulin putting patient at risk for hypoglycemia when PO intake decreases. Will re-distribute regimen to a more 50%:50% basal:prandial insulin regimen. * Additionally, decrease in total daily insulin dose is needed for: * Steroids tapered by ~ 1/2 from Solumedrol 40mg IV Q12hrs to prednisone 20mg PO BID * Pt NPO this AM for stress test PLAN FOR INPATIENT GLYCEMIC CONTROL: * Hold outpatient oral diabetes medications * Basal insulin: decrease dosing * Lantus 35 units SQ x 1 dose this AM for NPO, then, * Lantus 40 units SQ BID * Bolus insulin: loosen parameters for step down in steroid dosing * NovoLog per scale ACHS or Q6hrs while NPO * Goal Range: Low 120 mg/dL - High 160 mg/dL * Correction Factor: 10 mg/dL/unit * Nutritional / Prandial insulin per carb ratio of 1 unit per 4 grams CHO consumed PLAN FOR DISCHARGE: * A1c of 11% indicates poor outpatient glycemic control. * Patient has DM f/u appointment already scheduled for the second week of September. Continue to titrate regimen per outpatient provider.
--- NOTE | 2017-09-21 12:54 | PULMONARY PROGRESS NOTE ---
DATE: 09/21/2017 PROBLEM LIST: Includes: 1. Acute respiratory failure with hypoxia. 2. Acute bronchitis. 3. Obesity. 4. Possible sleep apnea. 5. Elevated sed rate. SUBJECTIVE: The patient reports that she had an episode of chest pain yesterday. In reviewing the chart, Dr. Hurley evaluated also troponin was negative. There was no EKG changes and in discussing with her today, she feels that it was secondary to her albuterol. She states that the albuterol was changed to Xopenex and she has not had any further chest discomfort. She states that she is coughing, he is getting mucus up with the cough, she was concerned initially that what she is feeling was fluid; however, I did inform her that this is actually a good thing and that is indicative that her infection was breaking up and she was starting to clear the secretions. She has had no further chest pain. She has had no chest heaviness. No other concerns. No GI symptoms. No nausea or vomiting. She is eating well. Her appetite is good. No swelling in her extremities. No difficulty with her bowels, no difficulty voiding. When I was in the room with her, she was actually off oxygen. She said that she had been off oxygen for about an hour and a half and was concerned that she had been off that long and was wondering what her oxygen level was. OBJECTIVE: GENERAL: The patient is a 61-year-old morbidly obese white female in no acute distress. She is alert and oriented x3. Mood is good. Affect is good. VITAL SIGNS: Temp 36.9, pulse 68, respiration rate 18, blood pressure is 141/72, pulse ox 96% on room air. HEENT: Normocephalic, atraumatic. Pupils equal, round, reactive to light and accommodation. Extraocular movements are intact. [place] moist gingival and buccal mucosa. NECK: Supple, short, thick. No adenopathy or bruit. CHEST: Pretty good breath sounds throughout. The patient does have a few coarse wheezes/rhonchi but a lot of these clear with cough. CARDIOVASCULAR: Regular rate and rhythm. No murmurs, gallops or rubs. ABDOMEN: Obese, soft, nontender. EXTREMITIES: No erythema. LABORATORY DATA: Shows white count down to 15,000, H&H 12.2/39.0, and platelet count 329,000. BUN 41, creatinine 1.18. IMAGING DATA: The patient did have a nuclear medicine lung scan done yesterday which was unremarkable. IMPRESSION AND PLAN: 1. Acute respiratory failure with hypoxia. The patient actually is improving. Her oxygen requirements on room air at this point. She is off supplemental oxygen completely and doing well. At this point, continue aggressive pulmonary toilet. Did speak with the hospitalist team, they can add in flutter valve, which I think is appropriate. Continue with levalbuterol as well as I feel that the albuterol may have been contributing to her chest discomfort yesterday. 2. Acute bronchitis. The patient is currently on doxycycline day #9. At this point, keep for a total of 10 days and then reevaluated. She is also on prednisone 20 mg b.i.d., would recommend to continue slow prednisone taper with her. 3. Chest pain yesterday. Troponins are negative. Stress test was canceled. Looks like it may have been medication induced. At this point, continue to monitor the patient, would recommend to see if we can get the patient moving around a little bit in preparation for transition to home. Otherwise, we will reevaluate in the morning. ALEKS
[2017-09-21] MEDS ORDERED: DOCUSATE SODIUM 100 MG CAP PO ONE (16:45)
[2017-09-21] MEDS ORDERED: POLYETHYLENE (MIRALAX) 17 GM PACK PO PRN (16:45)
--- NOTE | 2017-09-21 17:15 | Hospitalist Progress Note ---
Hospitalist Progress Note Date of Service Sep 21, 2017. Subjective Pt evaluation today including: conversation w/ patient, physical exam, chart review, lab review, review of inpatient medication list Patient seen and evaluated. No acute events. Reporting feeling improved from a respiratory standpoint but getting more sputum production. Patient was anxious about having more sputum but reassured her this is a good thing given she has weaned from oxygen. She is very anxious in general and does have a lot of outside stressors Reporting better tolerance of Xopenex compared to Albuterol. Constitutional: No fever, No chills Respiratory: + cough, + sputum, + dyspnea on exertion, No dyspnea at rest Cardiovascular: No chest pain Abdomen: No pain, No nausea, No vomiting Musculoskeletal: No calf pain Female : No dysuria Heme: No abnormal bleeding/bruising Medications Current Inpatient Medications Medications (Trade) Dose Ordered Sig/Jason Route Start Time Stop Time Status Last Admin Dose Admin Enoxaparin Sodium (Lovenox Inj) 40 mg Q24H SC 09/17/17 18:00 10/17/17 17:59 09/20/17 17:26 40 MG Acetaminophen (Tylenol Tab) 650 mg Q4H PRN PO 09/17/17 15:00 10/17/17 14:59 09/18/17 04:24 650 MG Nitroglycerin (Nitrostat Tab) 0.4 mg UD PRN SL 09/17/17 15:00 10/17/17 14:59 09/20/17 11:05 0.4 MG Furosemide 40 mg/ Syringe 4 ml @ 4 mls/min BID17 IV 09/17/17 17:00 10/17/17 16:59 Future Hold 09/18/17 08:05 4 MLS/MIN Aspirin (Ecotrin Tab) 81 mg DAILY PO 09/18/17 09:00 10/18/17 08:59 09/21/17 08:00 81 MG Levothyroxine Sodium (Synthroid Tab) 100 mcg DAILYBB PO 09/18/17 06:00 10/18/17 06:59 09/20/17 06:15 100 MCG Lisinopril (Zestril Tab) 20 mg DAILY PO 09/18/17 09:00 10/18/17 08:59 09/21/17 07:59 20 MG Glucose (Glucose 40% Gel) 15-30 GRAMS 15 GRAMS... UD PRN PO 09/17/17 15:15 10/17/17 15:14 Glucose (Glucose Chew Tab) 4-8 Tablets 4 Tabl... UD PRN PO 09/17/17 15:15 10/17/17 15:14 Dextrose (Dextrose 50% 50ML Syringe) 25-50ML OF 50% DW IV FOR... UD PRN IV 09/17/17 15:15 10/17/17 15:14 09/19/17 04:44 25 ML Glucagon (Glucagon Inj) 1 mg UD PRN SQ 09/17/17 15:15 10/17/17 15:14 Hydralazine HCl (HydrALAZINE INJ) 10 mg Q4H PRN IV. 09/17/17 15:30 10/17/17 15:29 Lactobacillus Acidophilus (Floranex Tab) 4 tab TIDM PO 09/17/17 16:45 10/17/17 17:59 09/21/17 11:57 4 TAB Miscellaneous Information (Consult Glycemic Management Pharmacy) 1 ea UD PRN N/A 09/18/17 13:17 10/18/17 13:16 Insulin Aspart (novoLOG ASPART) SLIDING SCALE ACHS SC 09/19/17 16:15 10/19/17 16:14 Future hold 09/21/17 11:56 10 UNITS Doxycycline Hyclate (Vibramycin Cap) 100 mg BID PO 09/19/17 21:00 09/26/17 20:59 09/21/17 07:59 100 MG Prednisone (PredniSONE TAB) 20 mg BID PO 09/20/17 21:00 10/20/17 20:59 09/21/17 08:00 20 MG Levalbuterol (Xopenex 0.63 Mg/ 3 Ml Neb) 0.63 mg Q6R INH 09/20/17 21:05 10/20/17 21:04 09/21/17 07:43 0.63 MG Insulin Detemir (Levemir Insulin) 40 units BID SC 09/21/17 21:00 10/21/17 20:59 Polyethylene (Miralax Powder Packet) 17 gm DAILY PRN PO 09/21/17 16:45 10/21/17 16:44 Docusate Sodium (coLACE CAP) 100 mg BID PO 09/21/17 21:00 10/21/17 20:59 Objective Vital Signs Date Time Temp Pulse Resp B/P (MAP) Pulse Ox O2 Delivery O2 Flow Rate FiO2 09/21/17 16:00 Room Air 09/21/17 12:00 Room Air 09/21/17 11:43 36.9 68 18 141/72 (95) 96 09/21/17 08:00 Nasal Cannula 2.0 09/21/17 07:57 37.0 70 18 156/74 (101) 96 09/21/17 07:44 73 15 95 Nasal Cannula 2.0 09/21/17 04:00 Nasal Cannula 2.0 09/21/17 03:50 36.8 83 22 161/81 (107) 97 Nasal Cannula 2.0 09/21/17 02:07 79 18 98 Nasal Cannula 2.0 09/20/17 23:59 Nasal Cannula 2.0 09/20/17 23:43 36.8 86 18 142/83 (102) 98 Nasal Cannula 2.0 09/20/17 20:00 Nasal Cannula 2.0 09/20/17 19:16 36.8 86 18 161/67 (98) 92 Nasal Cannula 2.0 09/20/17 18:03 77 18 94 Nasal Cannula 2.0 Physical Exam General Appearance: WD/WN, no apparent distress ENT: hearing grossly normal Neck: supple, no JVD, trachea midline Respiratory/Chest: no respiratory distress, no accessory muscle use, + pertinent finding (minimal scattered rhonchi and exp. wheeze - mostly clear and improving with deep breathing and coughing) Cardiovascular: regular rate, rhythm Abdomen: normal bowel sounds, non tender, soft Extremities: + swelling (chronic unchanged lymphedema - b/l lower extremities) Neurologic/Psychiatric: alert Skin: normal color Laboratory Results Last 24 Hours Test 09/20/17 19:28 09/20/17 20:29 09/21/17 03:10 09/21/17 07:57 Troponin I < 0.015 ng/ml < 0.015 ng/ml Bedside Glucose 216 mg/dl 161 mg/dl White Blood Count 15.71 K/uL Red Blood Count 4.51 M/uL Hemoglobin 12.2 g/dL Hematocrit 39.0 % Mean Corpuscular Volume 86.5 fL Mean Corpuscular Hemoglobin 27.1 pg Mean Corpuscular Hemoglobin Concent 31.3 g/dl Platelet Count 329 K/uL Sodium Level 136 mmol/L Potassium Level 4.7 mmol/L Chloride Level 104 mmol/L Carbon Dioxide Level 25 mmol/L Anion Gap 7.0 mmol/L Blood Urea Nitrogen 41 mg/dl Creatinine 1.18 mg/dl Est Creatinine Clear Calc Drug Dose 65.0 ml/min Estimated GFR () 57.6 Estimated GFR (Non- 49.7 BUN/Creatinine Ratio 34.4 Random Glucose 167 mg/dl Calcium Level 9.2 mg/dl Test 09/21/17 10:41 Bedside Glucose 139 mg/dl Assessment and Plan Ms. Molina is a 61 year old woman here for hypoxic respiratory failure Acute Hypoxic Respiratory Failure 2/2 Bronchitis vs PNA - No documented chronic pulmonary condition - would suspect a level of restrictive disease given obesity/hypoventilation syndrome - patient is working with outpatient weightloss program but reports difficulty with commitment due to family/life stressors as she largely cares for her grandchildren - Continue Doxycycline 100 mg BID - Methylprednisolone 20 mg BID and likely continue to taper tomorrow - Pulmonology following - discussed with Ck Lee PA-C - continue current plan Atrial Tachycardia/Runs of PVCs: - Given body habitus there is likely some STEWART contributing - theses rhythms only are occurring at night - recommend outpatient sleep study Anxiety/Stress: - May benefit from SSRI initiation - expresses a lot of stress/anxiety and may even benefit from psych consultation - will discuss with patient before implementing anything Elevated Troponin: Demand Ischemia - Peaked at 0.183 and trended down - no further intervention necessary at this time - Appreciate cardiology's input - could consider future stress testing after resp. illness improved T2DM: A1c 11 - Continue Levemir 50 units SC BID and SSI - Appreciate pharmacy assistance with glycemic management HTN: - Lisinopril 20 mg daily DVT Prophylaxis: Lovenox 40 mg SC daily Code Status: FULL RESUSCITATION Disposition: - Possible D/C next 1-2 days Discharge planning: home
[2017-09-21] MEDS: ENOXAPARIN 40 MG/0.4 ML SYR SC SCH (17:41)
[2017-09-21] MEDS: DOCUSATE SODIUM 100 MG CAP PO SCH (19:52)
[2017-09-21] MEDS: INSULIN DETEMIR SC SCH (21:02)
[2017-09-22] VITALS (15 sets, daily range): BP systolic 125–162; BP diastolic 62–81; PULSE 65–93; TEMP 36.5–36.9; O2SAT 90–96
[2017-09-22] MEDS: LEVALBUTEROL 0.63MG/3 ML NEB INH SCH ×4 (01:56→19:42)
[2017-09-22] MEDS: LEVOTHYROXINE 100 MCG TAB PO SCH (06:54)
[2017-09-22 08:19] LABS: CALCIUM 9.7 mg/dl (8.5-10.1); CREATININE 1.05 mg/dl (0.60-1.20); POTASSIUM 4.7 mmol/L (3.5-5.1)
[2017-09-22 08:27] LABS: HEMATOCRIT 38.4 % (37-47); HEMOGLOBIN 12.1 g/dL (12.0-16.0); MEAN CELL VOLUME 88.1 fL (80-100); MEAN CORPUSCULAR HEMOGLOBIN 27.8 pg (25-34); MEAN CORPUSCULAR HGB CONC 31.5 g/dl (32-36); MEAN PLATELET VOLUME 10.5 fL (7.4-10.4); PLATELET COUNT 399 K/uL (130-400); RED CELL DISTRIBUTION WIDTH CV 17.5 % (11.5-14.5); RED CELL DISTRIBUTION WIDTH SD 54.4 fL (36.4-46.3); WHITE BLOOD COUNT 14.12 K/uL (4.8-10.8)
[2017-09-22] MEDS: LACTOBACILLUS ACIDOPHILUS (FLORANEX) TAB PO SCH ×3 (08:29→17:40)
[2017-09-22] MEDS: DOXYCYCLINE HYCLATE 100 MG CAP PO SCH ×2 (08:30→20:52)
[2017-09-22] MEDS: LISINOPRIL 20 MG TAB PO SCH (08:31)
[2017-09-22] MEDS: ASPIRIN 81 MG ECTAB PO SCH (08:31)
[2017-09-22] MEDS: DOCUSATE SODIUM 100 MG CAP PO SCH ×2 (08:32→20:53)
[2017-09-22] MEDS: INSULIN DETEMIR SC SCH ×2 (08:39→20:51)
[2017-09-22] MEDS: INSULIN ASPART 100 UNITS/ML 3 ML PEN SC SCH ×4 (08:40→20:51)
--- NOTE | 2017-09-22 12:02 | PULMONARY PROGRESS NOTE ---
DATE: 09/22/2017 TIME: 10:40 a.m. SUBJECTIVE: The patient is feeling better. She is less short of breath. She is expectorating what she describes as a lot of sputum. It is nguyen to yellow in color. It is thick. She is not having any chest pain. She still feels profoundly weak just walking around her room. Her oxygenations have been improving. She tells me that her saturations go down into the 80s. I did not find any of that documented. She states, however, she will call the nurse when she is feeling something and they will come in and find that it is in the 80s and then it will go up into the 90s when she takes some deep breaths. OBJECTIVE: GENERAL: The patient appears comfortable at rest. VITAL SIGNS: Temperature is 36.9. There have been no fevers going back to 4 days ago. HEART: The heart rate is 83 per minute. The rhythm is regular. Blood pressure 125/65. LUNGS: Lung eli still reveals mild to moderate rhonchi bilaterally posteriorly. She appears in no distress. Respiratory rate is 18. Oxygen saturation 96%. LABORATORY DATA: White count today is 14.12. This is lower than it had been when it peaked at 18.75. Hemoglobin is 12.1. Platelets 399,000. IMPRESSIONS: 1. Acute respiratory failure with hypoxia. 2. Acute bronchitis. 3. Obesity. 4. Chest pain -- questionable secondary to albuterol. 5. Rule out obstructive sleep apnea. 6. Elevated sed rate. COMMENTS: The patient has a clinical history of what sounds like a respiratory tract infection. Her chest x-ray findings appeared more like interstitial edema. Clinically, she is improved. It is possible she had an interstitial pneumonitis. She still feels weak. She is getting levalbuterol and tolerating it well. She is concerned about the fact she just spent $100 on getting albuterol by nebulizer. Levalbuterol would even be more expensive. An option might be to try one dose of albuterol again and see if it gave her side effects. I suggested that perhaps she could even just take approximately 1/2 of the dose of albuterol. Obviously, financial issues have some concerns. I would continue with the prednisone and doxycycline. Would try to ambulate her more. She may be ready for discharge in 1-2 days. She would need a 2 step. Would suggest that she have a sleep study done and probably would be most desirable for her to do a home sleep study.
[2017-09-22] MEDS: ENOXAPARIN 40 MG/0.4 ML SYR SC SCH (17:41)
--- NOTE | 2017-09-22 22:57 | Progress Note ---
Subjective Date of Service: Sep 22, 2017. Subjective Pt evaluation today including: conversation w/ patient, physical exam, chart review, lab review, review of studies, review of inpatient medication list Voiding: no voiding problems, no incontinence Patient is feeling better. Pt sob improved. She is expectorating what she describes as a lot of sputum. It is nguyen to yellow in color. It is thick. She is not having any chest pain. She still feels profoundly weak just walking around her room. Her oxygenations have been improving. Problem List Medical Problems: (1) Colitis Status: Acute (2) Elevated troponin Status: Acute (3) Hypoxia Status: Acute (4) Pre-syncope Status: Acute (5) Wheezing Status: Acute Review of Systems Constitutional: No fever, No chills Respiratory: + cough, + sputum, + dyspnea on exertion, No dyspnea at rest Cardiovascular: No chest pain Abdomen: No pain, No nausea, No vomiting Musculoskeletal: No calf pain Female : No dysuria Heme: No abnormal bleeding/bruising Objective Vital Signs Date Time Temp Pulse Resp B/P (MAP) Pulse Ox O2 Delivery O2 Flow Rate FiO2 09/22/17 20:00 96 Room Air 09/22/17 19:44 81 16 94 Room Air 09/22/17 19:04 36.7 85 20 127/79 (95) 91 Room Air 09/22/17 16:00 96 Room Air 09/22/17 15:32 36.7 87 18 139/81 (100) 90 Room Air 09/22/17 14:25 86 16 96 Room Air 09/22/17 12:19 36.8 84 18 162/74 (103) 94 09/22/17 12:00 95 Room Air 09/22/17 08:14 36.9 65 18 125/65 (85) 96 09/22/17 08:00 96 Room Air 09/22/17 07:07 79 16 92 Room Air 09/22/17 06:53 36.5 78 20 132/62 (85) 93 Room Air 09/22/17 04:00 Room Air 09/22/17 03:58 36.5 84 22 133/78 (96) 93 Room Air 09/22/17 01:57 93 16 91 Room Air 09/22/17 00:00 Room Air 09/21/17 23:56 36.7 87 22 118/92 (101) 99 Room Air Physical Exam Comments: General Appearance: WD/WN, no apparent distress ENT: hearing grossly normal Neck: supple, no JVD, trachea midline Respiratory/Chest: no respiratory distress, no accessory muscle use, + pertinent finding (minimal scattered rhonchi and exp. wheeze - mostly clear and improving with deep breathing and coughing) Cardiovascular: regular rate, rhythm Abdomen: normal bowel sounds, non tender, soft Extremities: + swelling (chronic unchanged lymphedema - b/l lower extremities) Neurologic/Psychiatric: alert Skin: normal color Laboratory Results Last 24 Hours Test 09/22/17 06:39 09/22/17 07:33 09/22/17 11:29 09/22/17 16:44 White Blood Count 14.12 K/uL Red Blood Count 4.36 M/uL Hemoglobin 12.1 g/dL Hematocrit 38.4 % Mean Corpuscular Volume 88.1 fL Mean Corpuscular Hemoglobin 27.8 pg Mean Corpuscular Hemoglobin Concent 31.5 g/dl RDW Standard Deviation 54.4 fL RDW Coefficient of Variation 17.5 % Platelet Count 399 K/uL Mean Platelet Volume 10.5 fL Sodium Level 136 mmol/L Potassium Level 4.7 mmol/L Chloride Level 101 mmol/L Carbon Dioxide Level 29 mmol/L Anion Gap 6.0 mmol/L Blood Urea Nitrogen 40 mg/dl Creatinine 1.05 mg/dl Est Creatinine Clear Calc Drug Dose 72.2 ml/min Estimated GFR () 66.4 Estimated GFR (Non- 57.3 BUN/Creatinine Ratio 38.1 Random Glucose 143 mg/dl Calcium Level 9.7 mg/dl Bedside Glucose 146 mg/dl 218 mg/dl 116 mg/dl Test 09/22/17 20:19 Bedside Glucose 72 mg/dl Assessment and Plan Ms. Molina is a 61 year old woman here for hypoxic respiratory failure Acute Hypoxic Respiratory Failure 2/2 Bronchitis vs PNA - No documented chronic pulmonary condition - would suspect a level of restrictive disease given obesity/hypoventilation syndrome - patient is working with outpatient weightloss program but reports difficulty with commitment due to family/life stressors as she largely cares for her grandchildren - Continue Doxycycline 100 mg BID - Methylprednisolone 20 mg daily and likely continue to taper tomorrow - Pulmonology following - appreciated recommendation Atrial Tachycardia/Runs of PVCs: - Given body habitus there is likely some STEWART contributing - theses rhythms only are occurring at night - recommend outpatient sleep study Anxiety/Stress: - May benefit from SSRI initiation - expresses a lot of stress/anxiety and may even benefit from psych consultation - will discuss with patient before implementing anything Elevated Troponin: Demand Ischemia - Peaked at 0.183 and trended down - no further intervention necessary at this time - Appreciate cardiology's input - could consider future stress testing after resp. illness improved T2DM: A1c 11 - Continue Levemir 50 units SC BID and SSI - Appreciate pharmacy assistance with glycemic management HTN: - Lisinopril 20 mg daily DVT Prophylaxis: Lovenox 40 mg SC daily Code Status: FULL RESUSCITATION Continued [facility] stay due to: multiple IV medications needed Discharge planning: home
[2017-09-23] VITALS (16 sets, daily range): BP systolic 121–143; BP diastolic 62–85; PULSE 74–102; TEMP 36.2–36.9; O2SAT 86–96
[2017-09-23] MEDS: LEVALBUTEROL 0.63MG/3 ML NEB INH SCH ×4 (01:37→20:16)
[2017-09-23] MEDS: LEVOTHYROXINE 100 MCG TAB PO SCH (06:17)
[2017-09-23] MEDS: DOXYCYCLINE HYCLATE 100 MG CAP PO SCH ×2 (08:00→21:02)
[2017-09-23] MEDS: LACTOBACILLUS ACIDOPHILUS (FLORANEX) TAB PO SCH ×3 (08:00→17:41)
[2017-09-23] MEDS: DOCUSATE SODIUM 100 MG CAP PO SCH ×2 (08:00→21:02)
[2017-09-23] MEDS: LISINOPRIL 20 MG TAB PO SCH (08:00)
[2017-09-23] MEDS: ASPIRIN 81 MG ECTAB PO SCH (08:01)
[2017-09-23] MEDS: INSULIN ASPART 100 UNITS/ML 3 ML PEN SC SCH ×4 (08:07→21:00)
[2017-09-23] MEDS: INSULIN DETEMIR SC SCH (08:08)
--- NOTE | 2017-09-23 12:39 | PULMONARY PROGRESS NOTE ---
DATE: 09/23/2017 TIME: 11:05 a.m. SUBJECTIVE: The patient feels much better. She is less short of breath. She has less cough. She has had no chest pains. Overall, she feels this is her best day. OBJECTIVE: GENERAL: The patient looked comfortable. VITAL SIGNS: Temperature is 36.4. HEART: The heart rate is 88 per minute. The rhythm is regular. Blood pressure 135/85. LUNGS: Lung eli revealed very mild rhonchi, inspiration and expiration. Her oxygen saturation on room air is 96%. The respiratory rate was 18 breaths per minute. IMPRESSIONS: 1. Acute respiratory failure with hypoxia -- improved. 2. Acute bronchitis. 3. Obesity. 4. Chest pain -- questionably secondary to albuterol. 5. Rule out obstructive sleep apnea. 6. Elevated sedimentation rate. COMMENTS AND RECOMMENDATIONS: The patient seems to be doing well. Her prednisone is now down to 20 mg daily. She seems to be stable. I would have no objection to discharge whenever you feel it would be appropriate. The patient expressed today that she does not want to try the albuterol again. Upon discharge, she will be happy to get some levalbuterol and she thinks they have prescription coverage that would take care of this. She ultimately should have a follow up with the sed rate. Consideration could be given to a sleep study. She likely should have a 2-step done before discharge. Pulmonary will sign off for now. Please feel free to call if needed.
--- NOTE | 2017-09-23 13:32 | Progress Note ---
Subjective Date of Service: Sep 23, 2017. Subjective Pt evaluation today including: conversation w/ patient, physical exam, chart review, lab review, review of studies, review of inpatient medication list Voiding: no voiding problems Pt is feeling better no new complains. Problem List Medical Problems: (1) Colitis Status: Acute (2) Elevated troponin Status: Acute (3) Hypoxia Status: Acute (4) Pre-syncope Status: Acute (5) Wheezing Status: Acute Review of Systems All Other Systems: Reviewed and Negative Objective Vital Signs Date Time Temp Pulse Resp B/P (MAP) Pulse Ox O2 Delivery O2 Flow Rate FiO2 09/23/17 12:02 36.9 74 18 127/62 (83) 92 09/23/17 12:00 96 Room Air 09/23/17 08:00 96 Room Air 09/23/17 07:26 36.4 86 20 135/85 (102) 93 Room Air 09/23/17 06:53 92 16 95 Room Air 09/23/17 04:00 96 Room Air 09/23/17 03:57 36.7 80 20 124/73 (90) 95 Room Air 09/23/17 01:37 83 16 91 Room Air 09/23/17 00:00 96 Room Air 09/23/17 00:00 36.6 92 22 124/72 (89) 92 Room Air 09/22/17 20:00 96 Room Air 09/22/17 19:44 81 16 94 Room Air 09/22/17 19:04 36.7 85 20 127/79 (95) 91 Room Air 09/22/17 16:00 96 Room Air 09/22/17 15:32 36.7 87 18 139/81 (100) 90 Room Air 09/22/17 14:25 86 16 96 Room Air Physical Exam General Appearance: no apparent distress, + obese Eyes: EOMI Respiratory/Chest: chest non-tender, lungs clear, normal breath sounds, no respiratory distress, no accessory muscle use Cardiovascular: regular rate, rhythm, no edema, no murmur Abdomen: non tender, soft Neurologic/Psychiatric: alert, normal mood/affect, oriented x 3 Skin: no rash Lymphatic: no adenopathy Laboratory Results Last 24 Hours Test 09/22/17 16:44 09/22/17 20:19 09/23/17 02:26 09/23/17 07:06 Bedside Glucose 116 mg/dl 72 mg/dl 105 mg/dl 135 mg/dl Test 09/23/17 11:16 Bedside Glucose 106 mg/dl Assessment and Plan Ms. Molina is a 61 year old woman here for hypoxic respiratory failure Acute Hypoxic Respiratory Failure 2/2 Bronchitis vs PNA - No documented chronic pulmonary condition - would suspect a level of restrictive disease given obesity/hypoventilation syndrome - patient is working with outpatient [facility] program but reports difficulty with commitment due to family/life stressors as she largely cares for her grandchildren - Continue Doxycycline 100 mg BID - Methylprednisolone 20 mg daily last dose today. - Pulmonology following - appreciated recommendation Atrial Tachycardia/Runs of PVCs: - Given body habitus there is likely some STEWART contributing - theses rhythms only are occurring at night - recommend outpatient sleep study Anxiety/Stress: - May benefit from SSRI initiation - expresses a lot of stress/anxiety and may even benefit from psych consultation - will discuss with patient before implementing anything Elevated Troponin: Demand Ischemia - Peaked at 0.183 and trended down - no further intervention necessary at this time - Appreciate cardiology's input - could consider future stress testing after resp. illness improved T2DM: A1c 11 - Continue Levemir 50 units SC BID and SSI - Appreciate pharmacy assistance with glycemic management HTN: - Lisinopril 20 mg daily DVT Prophylaxis: Lovenox 40 mg SC daily Code Status: FULL RESUSCITATION Dc in am as per patient request. Continued [facility] stay due to: multiple IV medications needed Discharge planning: home
--- NOTE | 2017-09-23 14:35 | Pharmacy Progress Note ---
Pharmacy Glycemic Short Note 2 Date of Service Sep 23, 2017. OUTPATIENT ANTIDIABETIC REGIMEN: * Levemir 50 units SQ BID * Novolog 40 units SQ BID * Januvia 100 mg PO qam * A1c = 11% on 09/18/17 ASSESSMENT: * 61yo T2DM female with poor outpatient control per recent A1c * Pt with severe, sustained hyperglycemia on 09/18/17, requiring IV insulin infusion x ~24hrs * SQ basal bolus insulin regimen continued along with IV insulin infusion due to large SQ insulin doses needed. Did not want to lose steady state with SQ dosing. IV insulin infusion was essentially serving as "correctional" insulin for steroid induced hyperglycemia and poor baseline control. * Pt transitioned off of IV insulin infusion on 09/19/17 * Steroid dose continues to taper. This should yield an improvement in BSGs * Patient has received ~90 units of insulin over the past 24hrs * 40 units of basal insulin with Levemir (PM dose of Levemir not given 3/3 for unknown reason?) * 50 units of prandial insulin with NovoLog * BSGs: 146, 218, 116, 73 * BSGs tapering down as prednisone in AM effects wear off. Decrease in PM dose of basal insulin needed * Additionally, decrease in total daily insulin dose is needed for: * Steroids tapered by ~ 1/2 from prednisone 20mg PO BID to prednisone 20mg po daily PLAN FOR INPATIENT GLYCEMIC CONTROL: * Hold outpatient oral diabetes medications * Basal insulin: decrease dosing * Levemir 45 units SQ daily in AM * Levemir 10 units SQ daily in PM if BSG >180 mg/dl * Bolus insulin: no change * NovoLog per scale ACHS or Q6hrs while NPO * Goal Range: Low 120 mg/dL - High 150 mg/dL * Correction Factor: 10 mg/dL/unit * Nutritional / Prandial insulin per carb ratio of 1 unit per 3 grams CHO consumed PLAN FOR DISCHARGE: * A1c of 11% indicates poor outpatient glycemic control. * Patient has DM f/u appointment already scheduled for the second week of September. Continue to titrate regimen per outpatient provider.
[2017-09-23] MEDS: ENOXAPARIN 40 MG/0.4 ML SYR SC SCH (17:41)
[2017-09-23] MEDS ORDERED: INSULIN DETEMIR SC SCH ×2 (21:00)
[2017-09-24] VITALS (9 sets, daily range): BP systolic 101–120; BP diastolic 53–74; PULSE 80–92; TEMP 36.4–36.6; O2SAT 88–96; Ht 154.9 cm; Wt 132.1 kg
[2017-09-24] MEDS: LEVALBUTEROL 0.63MG/3 ML NEB INH SCH ×3 (01:58→14:22)
[2017-09-24] MEDS: LEVOTHYROXINE 100 MCG TAB PO SCH (06:04)
[2017-09-24] MEDS: DOXYCYCLINE HYCLATE 100 MG CAP PO SCH (08:57)
[2017-09-24] MEDS: ASPIRIN 81 MG ECTAB PO SCH (08:58)
[2017-09-24] MEDS: LACTOBACILLUS ACIDOPHILUS (FLORANEX) TAB PO SCH ×2 (08:58→12:06)
[2017-09-24] MEDS: LISINOPRIL 20 MG TAB PO SCH (08:58)
[2017-09-24] MEDS: DOCUSATE SODIUM 100 MG CAP PO SCH (08:58)
[2017-09-24] MEDS ORDERED: INSULIN DETEMIR SC SCH (09:00)
[2017-09-24] MEDS: INSULIN ASPART 100 UNITS/ML 3 ML PEN SC SCH ×2 (09:03→12:11)
[2017-09-24] MEDS ORDERED: LVMI SC (16:10)
[2017-09-24] MEDS ORDERED: LVMI SQ (16:10)
[2017-09-24] MEDS ORDERED: LEVA45AE INH (16:10)
[2017-09-24] MEDS ORDERED: DXY100 PO (16:10)
[2017-09-24] MEDS ORDERED: PRED10TA PO (16:10)
[2017-09-24] MEDS ORDERED: NVLG SQ (16:10)
[2017-09-24] MEDS ORDERED: XPNINS INH (16:10)
--- NOTE | 2017-09-24 16:21 | Discharge Instructions ---
Discharge Instructions Date of Service Sep 24, 2017. Admission Reason for Admission: CHF Discharge Discharge Diagnosis / Problem: Bronchitis Discharge Goals Goal(s): Decrease discomfort, Improve function, Increase independence Activity Recommendations Activity Limitations: resume your previous activity . Instructions / Follow-Up Instructions / Follow-Up Bronchitis with Pneumonia: - You are almost done with your antibiotics. You will need to take Doxycycline 1 tablet tonight only (you had your morning dose). Then take twice a day on 09/25 then you will be done - A prescription was sent over for Xopenex inhaler and nebulizers. If this is not covered please discuss with your family doctor to see if they can do an authorization for it. - You only need one dose of steroids tomorrow morning then stop. - Recommend outpatient sleep study and possibly pulmonary function testing. Stress Test: - The heart doctors would like to do a stress test as an outpatient to just check for overall heart health. They want to do this when you are over this illness. Diabetes: - This is the plan with your sugars: First makes sure to check your sugars with each meal and at bedtime. Also continue to keep your log to show your family doctor - Take LEVEMIR 45 UNITS IN THE MORNING - Take NOVOLOG 5 UNITS WITH BREAKFAST, LUNCH, and DINNER - Take LEVEMIR 10 UNITS AT BEDTIME IF YOUR SUGAR IS GREATER THAN 180. -- IF IT IS LESS THAN 180 DO NOT TAKE THE 10 UNITS OF LEVEMIR - Recommend to continue a low-carb diet or at least a carb consistent diet. As we discussed, focus more on proteins for breakfast and can split more of the carbs at lunch and dinner. If you prefer more carbs at dinner then focus your carbs here. - Recommend to use your serving size containers to help portion control especially with carbs "Please, follow up with Dr. Asencio' associate, Dr. Alcantara, on SundaySeptember 28 at 10:30 am. *THIS OFFICE IS IN [address] OF THE [facility]. If you need to change this appointment, call the office at [phone]. Please, follow up at [facility]'s Cardiology Office with Kayla Hurst PA-C on October 11 at 3:15 pm. *This office is located in [address] of [facility] - big building next to this hospital. If you need to change this appointment, call the office at [phone]. Please, follow up at [facility] Pulmonology Office with Melissa Bustamante PA-C on SundayOctober 12 at 7:30 am. *This office is also located in [address] [facility] next to the hospital. If you need to change this appointment, call the office at [phone]." Current Hospital Diet Patient's current hospital diet: Diabetes Type 2 Diet Discharge Diet Recommended Diet: Diabetes Type 2 Diet Pending Studies Studies pending at discharge: no Laboratory Results Hemoglobin A1c Test 09/18/17 07:09 Range/Units Estimated Average Glucose 269 mg/dl Hemoglobin A1c 11.0 H 4.5-5.6 % Medical Emergencies . Who to Call and When: Medical Emergencies: If at any time you feel your situation is an emergency, please call 911 immediately. . Non-Emergent Contact Non-Emergency issues call your: Primary Care Provider Call Non-Emergent contact if: you have a fever, your pain is concerning you, you have any medication questions . . "Provider Documentation" section prepared by Maribeth Paniagua. .
--- NOTE | 2017-09-24 16:33 | Cardiology Follow-Up ---
Subjective Date of Service: Sep 24, 2017. Pt evaluation today including: conversation w/ patient, conversation w/ family , physical exam, lab review, review of studies, review of inpatient medication list History of Present Illness This is a 61-year-old woman who developed a fever somewhere around 1 week before presentation, she subsequently developed a cough and productive brown sputum. She also developed shortness of breath, she was initially treated with nebulizers but became much more short of breath. She then developed chest discomfort and palpitations as well as worsening peripheral edema on top of her chronic lymphedema and came into the emergency room on September 17, 2017. There she was found to be hypoxic (84% oxygen saturation on room air), tachycardic at 103 bpm and hypertensive with a blood pressure reported at 193/ 55. Additionally her chest x-ray suggested pulmonary edema. Her initial troponin was 0.183, subsequently they dropped (0.151 and then 0.085). Her BNP was normal, her echocardiogram also was normal. She has risk factors for coronary disease but no documented coronary disease and no prior symptoms. I discussed her symptoms with her, she described taking her nebulizer treatment and having a racing heartbeat associated with chest, neck and mid scapular pain and shortness of breath. She also described shortness of breath with minimal exertion associated with chest heaviness before she came to the hospital. She was feeling well but had been quite inactive, she was walking around the hallway and developed sudden onset of symptoms of shortness of breath, her heart pounding as well as substernal and mid scapular chest pain. She went back to the room, the shortness of breath is improved as is the heart pounding but she still had the discomfort. This is reminiscent of what she described when she came into the emergency room. Enzymes and ECG were unchanged however. Today she feels well, no complaints and her breathing is improved. Social History Smoking Status: Never Smoker History of Alcohol Use: No Review of Systems Respiratory: + cough, + sputum, + dyspnea on exertion, No dyspnea at rest Cardiac: No chest pain Objective Vital Signs Past 12 Hours Date Time Temp Pulse Resp B/P (MAP) Pulse Ox O2 Delivery O2 Flow Rate FiO2 09/24/17 14:22 92 18 94 Room Air 09/24/17 12:00 Room Air 09/24/17 11:30 36.5 87 20 120/70 (87) 94 Room Air 09/24/17 08:00 Room Air 09/24/17 07:47 36.4 83 19 101/53 (69) 91 Room Air 09/24/17 07:24 83 18 91 Room Air Last Recorded Weight-Kilograms: 132.100 Intake & Output 8-Hour Column 09/24/17 09/25/17 09/25/17 16:00 00:00 08:00 Intake Total 1200 ml Balance 1200 ml 24-Hour Column 09/25/17 08:00 Intake Total 1200 ml Balance 1200 ml Physical Exam Constitutional: General Apperance: obese Level of Distress: moderate distress Lungs: Respiratory effort: no dyspnea Auscultation: deminished air movement, decreased breath sounds, expiratory wheezing Cardiovascular: Heart Auscultation: RRR, no murmurs, no rubs, no gallops Peripheral Pulses: Bruits: none appreciated Extremities: pertinent finding (She has heavy stockings on her legs but clearly her legs are enlarged bilaterally) Data Laboratory Results: Last 24 Hours Test 09/23/17 17:30 09/23/17 20:41 09/23/17 23:31 09/24/17 06:12 Bedside Glucose 134 mg/dl 77 mg/dl 98 mg/dl 140 mg/dl Test 09/24/17 11:12 09/24/17 16:03 Bedside Glucose 192 mg/dl 312 mg/dl Telemetry reviewed: Sinus rhythm, no significant abnormalities Assessment and Plan 1. Shortness of breath and pulmonary edema on admission: I suspect this was noncardiac pulmonary edema. I would mostly control fluid intake. 2. Elevated cardiac enzymes: I think on presentation her findings of tachycardia, severe hypertension and hypoxia are sufficient to explain her enzyme findings which are likely demand ischemia. This could be in the presence of underlying coronary disease however, although that may be difficult to diagnose. Now with recurrent chest discomfort her enzymes have been negative which would go along with lack of significant obstructive disease. 3. Chest discomfort: Her description of the chest discomfort remains worrisome , in the past she did not have it with exertion but now she had exertional chest discomfort associated with shortness of breath and palpitations while walking in the hallway. Her electrocardiogram did not show acute changes, and her enzymes were negative but I think we do need a stress test at some point. I would not do it during this hospitalization. I do not think we would get a good test considering the status of her lungs currently. I recommended that she go home as planned and I will arrange for stress test as an outpatient in 2- 3 weeks followed by an office visit to reevaluate things. Thank you for allowing me to participate in her care.
--- NOTE | 2017-09-25 00:47 | Discharge Summary ---
Discharge Summary Date of Service Sep 24, 2017. Discharge Summary Admission Date: Sep 17, 2017 at 15:58 Discharge Date: Sep 24, 2017 Discharge Disposition: Home Principal Diagnosis: Acute Hypoxic Respiratory Failure 2/2 Bronchitis Problems/Secondary Diagnoses: Medical Problems: (1) Cellulitis (2) CHF (congestive heart failure) (3) Diabetes (4) Diverticulitis (5) GERD (gastroesophageal reflux disease) (6) Thyroid cancer Immunizations: Have You Had Influenza Vaccine: Yes History of Tetanus Vaccine?: Unknown History of Pneumococcal: Yes History of Hepatitis B Vaccine: Unknown Procedures: CHEST ONE VIEW PORTABLE FINDINGS: The heart is mildly enlarged. There is elevation of the interstitium, likely secondary to congestive failure with interstitial edema. There is no focal pulmonary consolidation.[ IMPRESSION: Radiographic evidence of congestive failure with mild interstitial edema. Clinical and radiographic follow-up is recommended BILATERAL LOWER EXTREMITY VENOUS DOPPLER FINDINGS: The common femoral, superficial femoral and popliteal veins were compressible. Augmentation was normal. Flow was shown within the deep calf vessels. This exam was compromised due to suboptimal penetration. A 5.2 x 1.7 x 2 cm right popliteal cyst was noted. IMPRESSION: 1. Technically difficult exam but no evidence of deep venous thrombus within the bilateral lower extremities. 2. 5.2 x 1.7 x 2 cm right popliteal cyst. NUCLEAR MEDICINE VENTILATION/PERFUSION SCAN FINDINGS: Apparent central radiotracer deposition is noted within the left lung. Ventilation images are technically compromised. However, no mismatched defects are identified. This study is considered low probability for pulmonary embolus. IMPRESSION: Low probability for pulmonary embolus. ECHOCARDIOGRAM - Left ventricular systolic function is normal. - No significant valvular disease Consultations: 1. Pulmonology 2. Cardiology 3. Pharmacy Medication Reconciliation New Medications: Insulin Detemir (Levemir) 100 Units/Ml Inj 10 UNITS SC HS PRN for Hyperglycemia for 14 Days, #1 VIAL Take 10 units at night if sugar is greater than 180. Levalbuterol Tartrate (Levalbuterol Tartrate Hfa) 45 Mcg/Act Aer 2 PUFFS INH QID PRN for SOB/Wheezing, #1 INHALER Doxycycline Hyclate (Doxycycline Hyclate) 100 Mg Cap 100 MG PO BID, #3 CAP Take one dose tonight on 09/24 then take twice a day on 09/25 then stop. Levalbuterol (Levalbuterol HCl) 0.63 Mg/3 Ml Nebu 0.63 MG INH Q6R for 30 Days, #1 BOX Prednisone Tab (Prednisone) 10 Mg Tab 10 MG PO DAILY, #1 TAB Take on 09/25 then stop. Changed Medications: Insulin Aspart (Novolog) 100 Units/Ml Inj 5 UNITS SQ AC for 14 Days, #2 VIAL 1 Refill (Changed from: 40 UNITS; BID; Refills: ) Insulin Detemir (Levemir) 100 Units/Ml Inj 45 UNITS SQ DAILY for 14 Days, #1 BOX (Changed from: 50 UNITS; BID) Continued Medications: Aspirin (Aspirin 81) 81 Mg Tab 81 MG PO DAILY Levothyroxine Sodium (Synthroid) 100 Mcg Tab 100 MCG PO QAM, TAB Lisinopril (Zestril) 20 Mg Tab 20 MG PO DAILY, TAB Discontinued Medications: Sitagliptin Phosphate (Januvia) 100 Mg Tab 100 MG PO QAM Discharge Exam Review of Systems: Constitutional: No fever, No chills ENT: + nasal symptoms, No sore throat Respiratory: + cough, + sputum, No shortness of breath Cardiovascular: No chest pain, No palpitations Abdomen: No pain, No nausea, No vomiting, No diarrhea, No constipation Musculoskeletal: + swelling (chronic b/l lower extremity lymphedema) Genitourinary - Female: No dysuria Hematologic / Lymphatic: No abnormal bleeding/bruising Physical Exam: General Appearance: WD/WN, no apparent distress Eyes: sclerae normal Neck: supple, no JVD, trachea midline Respiratory/Chest: no respiratory distress, no accessory muscle use, + rhonchi, + pertinent finding (good airation in lung eli except diminished at bases) Cardiovascular: regular rate, rhythm, no gallop, no murmur Abdomen / GI: normal bowel sounds, non tender, soft Extremities: + swelling (b/l lower extremity pitting edema) Neurologic/Psychiatric: alert, oriented x 3 Skin: normal color, warm/dry Hospital Course ADMISSION: Ms. Molina began having high fever of 102.7 for four days. Sunday the fever broke and a cough started which worsened and became productive of brown sputum and she became increasingly short of breath. Went to [facility] walk in and she was given nebulizers. Starting yesterday she couldn' t take more than a few steps without becoming sob. Today she began having chest pain and palpitations. She has had edema in fingers and lower extremities. She has been taking her lasix which she takes for lymphedema. HOSPITAL COURSE: Acute Hypoxic Respiratory Failure 2/2 Bronchitis vs PNA - No documented chronic pulmonary condition - would suspect a level of restrictive disease given obesity/hypoventilation syndrome - patient is working with outpatient weightloss program but reports difficulty with commitment due to family/life stressors as she largely cares for her grandchildren - Continue Doxycycline 100 mg BID and will complete course on 09/25 - Will complete a steroid taper on 09/25 - Patient reporting feeling palpations with Albuterol and reporting some CP with this. Did not have these symptoms with Xopenex. Rx given for Xopenex inhaler and nebs - pending insurance coverage this may need authorization and given her significant symptoms with Albuterol this may be justifiable - Pulmonology followed - recommendations for outpatient sleep study and possibly PFTs and did establish outpatient F/U Atrial Tachycardia/Runs of PVCs: Spontaneous/Self-Aborting - Given body habitus there is likely some STEWART contributing - theses rhythms only are occurring at night - recommend outpatient sleep study Anxiety/Stress: - Reporting significant life stressors and would highly benefit from therapy. Could consider initiation of SSRI Elevated Troponin: Demand Ischemia - Peaked at 0.183 and trended down - no further intervention necessary at this time - Cardiology recommending outpatient stress testing to further evaluate her mild CP on exertion as this may be all pulmonary but they would like to assess this after resolution of respiratory illness T2DM: A1c 11 - Had a long conversation about glucose control and her fears of hypoglycemia. Plans to log her sugars to present to PCP on follow-up with the plan to likely make further adjustments - She did not want to take Januvia any further and this was discontinued - Her biggest fear being hypoglycemia and the following regimen was developed to promote compliance and address patients wishes and fears. Likely this will need adjusted to coordinate with sugars that come with her home diet and stressors - Levemir 45 units in the AM daily; Will utilize Levemir 10 units SC HS PRN Glucose > 180 - Novolog 5 units SC AC - Patient on average has been requiring 75 units daily but given A1c of 11 this is likely not going to be suitable skilled nursing but with patient education and a plan she is very open to adjustments but does express a lot of anxiety with this condition Prolonged visit of 60 minutes on day of discharge. This includes patient assessment and intervention. Sat down with Ms. Molina and her to devise an adjusted insulin regimen as patient discussed fear of hypoglycemia on previous regimen. Also adjusted for patients goals and plans for insulin therapy. Visit also addressed a carbohydrate breakdown for meals to help promote consistent ingestion. Total Time Spent: Greater than 30 minutes This includes examination of the patient, discharge planning, medication reconciliation, and communication with other providers. Discharge Instructions Please refer to the electronic Patient Visit Report (Discharge Instructions) for additional information.
== END 2017-09-24 17:12 | disposition home or self-care (01) | DRG 189 ==
LOC: C.EDB 12:18 → ENRESERV 15:06 → C.2T 15:58
PROVIDERS: ADMIT Internal Medicine; ATTEND Internal Medicine
DX: J96.01 Acute respiratory failure with hypoxia (principal); J18.9 Pneumonia, unspecified organism; I24.8 Other forms of acute ischemic heart disease; I47.1 Supraventricular tachycardia; E11.9 Type 2 diabetes mellitus without complications; E89.0 Postprocedural hypothyroidism; I50.9 Heart failure, unspecified; I11.0 Hypertensive heart disease with heart failure; J40 Bronchitis, not specified as acute or chronic; F41.9 Anxiety disorder, unspecified; Z83.3 Family history of diabetes mellitus; Z82.49 Family history of ischemic heart disease and other diseases of the circulatory system; Z79.4 Long term (current) use of insulin; Z85.850 Personal history of malignant neoplasm of thyroid; Z79.82 Long term (current) use of aspirin

== ENCOUNTER 2017-10-23 14:39 | Inpatient (IN) | payer OTHER ==
[~2017-10-23] VITALS: Ht 154.9 cm; Wt 133.4 kg
[~2017-10-23 14:39] MED LIST changes: +ASPI-435 PO; -ASPI-589 PO; +DXY100 PO; -HMLI SC; -INSDGI SC; +LEVA45AE INH; -LISI-725 PO; +LVMI SC; +LVMI SQ; +NVLG SQ; +PRED10TA PO; -SITA100T3 PO; +XPNINS INH
[2017-10-23] MEDS ORDERED: LISI-725 PO (14:57)
[2017-10-23] MEDS ORDERED: HydrALAZINE HCL 20 MG/ML VIAL IV. STA (15:00)
[2017-10-23] MEDS ORDERED: NITROGLYCERIN 0.4 MG SL PER TAB CHARGE SL STA (15:00)
[2017-10-23] MEDS ORDERED: FUROSEMIDE 40 MG/4 ML VIAL IV STA (15:00)
--- NOTE | 2017-10-23 15:02 | EMERGENCY ROOM VISIT NOTE ---
History Report prepared by Tutu: Trevor Pandya Under the Supervision of: Dr. Marco A Thomas M.D. First contact with patient: 14:46 Chief Complaint: RESPIRATORY PROBLEMS Stated Complaint: RESPIRATORY PROBLEMS, CHEST PALPITATIONS History of Present Illness The patient is a 62 year old white female with a past medical history of CHF, diabetes, GERD, colitis, anxiety who presents to the ED with a cc of worsening episodes of left-sided chest pain beginning last week. Positive worsening shortness of breath on exertion, palpitations, cough, low oxygen saturation, swelling to fingers. Negative recent weight gain. She states that she was seen here a month ago for respiratory arrest, that was causing a cardiac problem. She notes that her oxygen saturation was 80% when she came here, and she was getting short of breath just putting on her clothes. The patient states that she was feeling better when she left here, but she was in [place] last week, and on her flight back here 4 days ago, while in the air she started feeling a heaviness in her chest with heart palpitations. She adds that her oxygen saturation was 72% in the air, but increased as the flight descended. The patient also noted last week that she started having trouble with shortness of breath upon any exertion, almost as bad as it was when she was here last month. She says that she has also came down with a upper respiratory infection over the past few days, and is taking Tylenol cold medicine. The patient adds that today, she has had trouble even walking, having some left-sided chest pain and palpitations any time she walks, and then gets a sharp pain underneath her left breast into her left shoulder once she sits down after walking. The patient states that her oxygen saturation frequently goes down to the 80a on exertion. She notes that she does not use oxygen at home. The patient says that she is scheduled for a stress test on the . She denies any history of blood clots. The patient takes 20 mg Lasix per day. Source of History: patient Onset: Last week Position: chest (left) Quality: sharp Timing: worsening, other (episodes) Modifying Factors (Worsening): exertion Associated Symptoms: + cough (URI symptoms), + SOB Note: Positive palpitations, low oxygen saturation, swelling to fingers. Negative recent weight gain. Review of Systems See HPI for pertinent positives and negatives. A total of ten systems were reviewed and were otherwise negative. Past Medical & Surgical Medical Problems: (1) Cellulitis (2) CHF (congestive heart failure) (3) Diabetes (4) Diverticulitis (5) GERD (gastroesophageal reflux disease) (6) Thyroid cancer Family History Diabetes mellitus FH: gallbladder disease FH: thyroid cancer Heart disease Social History Smoking Status: Never Smoker Alcohol Use: none Drug Use: none Marital Status: Housing Status: lives with family Occupation Status: other Current/Historical Medications Scheduled Aspirin (Aspirin Ec), 81 MG PO DAILY Fluticasone Propionate (Fluticasone Propionate), 2 SPRAYS XOCHITL DAILY Furosemide (Furosemide), 20 MG PO QAM Insulin Aspart (Novolog), 40 UNITS SC QAM Insulin Aspart (Novolog), 1 DOSE SC UD Insulin Detemir (Levemir), 50 UNITS SC BID Levothyroxine Sodium (Levothyroxine Sodium), 100 MCG PO QAM Lisinopril (Zestril), 20 MG PO DAILY Scheduled PRN Levalbuterol (Levalbuterol HCl), 0.63 MG NEB Q6H PRN for SOB/Wheezing Levalbuterol Tartrate (Levalbuterol Tartrate Hfa), 2 PUFFS INH QID PRN for SOB/ Wheezing Allergies Coded Allergies: Shellfish (Verified Allergy, Severe, "SEAFOOD" -- HIVES and ANAPHLYAXIS , 09/18/17) Sulfites (Verified Allergy, Severe, HIVES AND THROAT CLOSES, 09/17/17) Iodinated Contrast Media (Verified Allergy, Unknown, UNKNOWN, 09/17/17) Iodine (Verified Allergy, Unknown, 09/17/17) Physical Exam Vital Signs Date Time Temp Pulse Resp B/P (MAP) Pulse Ox O2 Delivery O2 Flow Rate FiO2 10/23/17 16:59 83 18 134/76 100 Room Air 10/23/17 15:59 98 Nasal Cannula 2.0 10/23/17 15:58 86 Room Air 10/23/17 15:48 95 Room Air 10/23/17 15:46 Room Air 10/23/17 15:45 80 22 168/81 95 Room Air 10/23/17 15:23 82 10/23/17 14:42 36.4 88 20 195/93 90 Room Air Physical Exam GENERAL: Awake, alert, well-appearing, NAD HENT: Normocephalic, atraumatic. EYES: Normal conjunctiva. Sclera non-icteric. NECK: Supple. No nuchal rigidity. FROM. RESPIRATORY: Noted difficulty completing sentences. Bibasilar crackles. No wheezing. CARDIAC: RRR, no MRG ABDOMEN: Morbidly obese, NTND, BS+ MSK: No chest wall TTP. Noted nonpitting and pitting edema to bilateral lower extremities. NEURO: GCS 15, CN 2-12 intact, moves all 4s on command SKIN: No rash or jaundice noted. Medical Decision & Procedures ER Provider Diagnostic Interpretation: X-ray: Per my interpretation, radiologist review. CHEST ONE VIEW PORTABLE CLINICAL HISTORY: CHEST PAIN COMPARISON STUDY: Chest radiograph September 20, 2017. FINDINGS: There is no pneumothorax or pleural effusion. There is pulmonary vascular congestion with suspected mild pleural edema. Moderate cardiomegaly is noted. There is no consolidation to suggest pneumonia. IMPRESSION: 1. Pulmonary vascular congestion with suspected pulmonary edema. 2. Stable cardiomegaly. Electronically signed by: Mack Soto M.D. 10/23/2017 3:39 PM Dictated Date/Time: 10/23/2017 3:37 PM Laboratory Results 10/23/17 17:24 Red Blood Count 3.85, Mean Corpuscular Volume 91.7, Mean Corpuscular Hemoglobin 29.9, Mean Corpuscular Hemoglobin Concent 32.6, Mean Platelet Volume 10.7, Neutrophils (%) (Auto) 54.7, Lymphocytes (%) (Auto) 34.2, Monocytes (%) (Auto) 7.2, Eosinophils (%) (Auto) 2.1, Basophils (%) (Auto) 0.3, Neutrophils # (Auto) 6.13, Lymphocytes # (Auto) 3.83, Monocytes # (Auto) 0.81, Eosinophils # (Auto) 0.23, Basophils # (Auto) 0.03 10/23/17 16:23 Test 10/23/17 16:23 10/23/17 17:24 Prothrombin Time 10.7 SECONDS (9.0-12.0) Prothromb Time International Ratio 1.0 (0.9-1.1) Activated Partial Thromboplast Time 24.1 SECONDS (21.0-31.0) Partial Thromboplastin Ratio 0.9 Anion Gap 9.0 mmol/L (3-11) Est Creatinine Clear Calc Drug Dose 64.4 ml/min Estimated GFR () 61.0 Estimated GFR (Non- 52.6 BUN/Creatinine Ratio 19.6 (10-20) Calcium Level 9.5 mg/dl (8.5-10.1) Total Bilirubin 0.4 mg/dl (0.2-1) Direct Bilirubin < 0.1 mg/dl (0-0.2) Aspartate Amino Transf (AST/SGOT) 15 U/L (15-37) Alanine Aminotransferase (ALT/SGPT) 35 U/L (12-78) Alkaline Phosphatase 104 U/L (45-117) Troponin I < 0.015 ng/ml (0-0.045) Pro-B-Type Natriuretic Peptide 263 pg/ml (0-900) Total Protein 7.5 gm/dl (6.4-8.2) Albumin 2.9 gm/dl (3.4-5.0) Lipase 256 U/L (73-393) White Blood Count 11.20 K/uL (4.8-10.8) Red Blood Count 3.85 M/uL (4.2-5.4) Hemoglobin 11.5 g/dL (12.0-16.0) Hematocrit 35.3 % (37-47) Mean Corpuscular Volume 91.7 fL (80-100) Mean Corpuscular Hemoglobin 29.9 pg (25-34) Mean Corpuscular Hemoglobin Concent 32.6 g/dl (32-36) Platelet Count 340 K/uL (130-400) Mean Platelet Volume 10.7 fL (7.4-10.4) Neutrophils (%) (Auto) 54.7 % Lymphocytes (%) (Auto) 34.2 % Monocytes (%) (Auto) 7.2 % Eosinophils (%) (Auto) 2.1 % Basophils (%) (Auto) 0.3 % Neutrophils # (Auto) 6.13 K/uL (1.4-6.5) Lymphocytes # (Auto) 3.83 K/uL (1.2-3.4) Monocytes # (Auto) 0.81 K/uL (0.11-0.59) Eosinophils # (Auto) 0.23 K/uL (0-0.5) Basophils # (Auto) 0.03 K/uL (0-0.2) RDW Standard Deviation 61.9 fL (36.4-46.3) RDW Coefficient of Variation 19.1 % (11.5-14.5) Immature Granulocyte % (Auto) 1.5 % Immature Granulocyte # (Auto) 0.17 K/uL (0.00-0.02) Nucleated RBC Absolute Count (auto) 0.05 K/uL (0-0) Nucleated Red Blood Cells % 0.5 % Venous Blood pH 7.38 (7.36-7.41) Venous Blood Partial Pressure CO2 56 mmHg (38.0-50.0) Venous Blood Partial Pressure O2 22 mmHg Venous Blood HCO3 32 mmol/L Venous Blood Oxygen Saturation < 60.0 % Venous Blood Base Excess 5.7 mEq/L Laboratory results reviewed by me Medications Administered Medications (Trade) Dose Ordered Sig/Jason Route Start Time Stop Time Status Last Admin Dose Admin Furosemide (Lasix Inj) 20 mg NOW STAT IV 10/23/17 15:00 10/23/17 15:04 DC 10/23/17 15:49 20 MG Nitroglycerin (Nitrostat Tab) 0.4 mg NOW STAT SL 10/23/17 15:00 10/23/17 15:04 DC 10/23/17 15:49 0.4 MG Hydralazine HCl (HydrALAZINE INJ) 5 mg NOW STAT IV. 10/23/17 15:00 10/23/17 15:04 DC 10/23/17 15:49 5 MG ECG Per My Interpretation Indication: SOB/dyspnea Rate (beats per minute): 78 Rhythm: normal sinus Findings: other (normal intervals, normal axis, no sts changes or twi) Change: no significant change (compard to September 20 2017) ED Course 1450: The patient was evaluated in room B5. A complete history and physical exam was performed. 1715: Upon reexamination, the patient was resting. I did an ultrasound and placed an IV in the right AC. I discussed the test results and treatment plan with her. She expressed understanding and agreement. The patient will be evaluated for further management. 1750: Discussed the patient's case with Luis SIERRA. The patient will be evaluated for further treatment and disposition. Medical Decision Nursing notes reviewed. Ancillary studies and prior records reviewed. The patient is a 62 year old white female with a past medical history of CHF, diabetes, GERD, colitis, anxiety who presents to the ED with a cc of worsening episodes of left-sided chest pain beginning last week. Positive worsening shortness of breath on exertion, palpitations, cough, low oxygen saturation, swelling to fingers. Negative recent weight gain. Differential diagnosis: Etiologies such as infections, reactive airway disease, pneumonia, pneumothorax , COPD, CHF, cardiac ischemia, pulmonary embolism, musculoskeletal, gastrointestinal, as well as others were entertained. Patient was seen and evaluated the bedside. Patient does have prior history of type 2 diabetes and CHF. Patient did have a recent hospital admission for pneumonia. Patient is complaining some worsening shortness of breath dyspnea on exertion and orthopnea. She is also noted some increasing lower extremity edema. Of note the patient did notice that she has some hypoxia during her flight from [place] to [place]. We did discuss that this may be related to the fact that the cabin is not fully pressurized C level. Of note the patient has been taking some cold and sinus medication which if he does have anything like Sudafed or phenylephrine would increase her blood pressure. Patient did have blood work completed, VBG, chest x-ray, EKG. Patient was given antihypertensive medications along with Lasix IV. ABG showed mild hypercarbia however the pH is fairly normal. Patient has mild white count. Patient is stable with chronic anemia. Patient does not have an elevated BNP troponin is undetectable. Patient's EKG is unchanged from priors. No acute ischemic changes. Patient's blood pressure improved after IV medications. Patient also was more comfortable on 2 L nasal cannula. Given that the fact that the patient has had a recent VQ scan that was of low probability and given the patient's chest x-ray and history and physical exam I believe that hypertensive emergency with volume overload and possible concomitant heart failure of the most likely etiologies of her shortness of breath. I did discuss this with the on-call hospitalist who agreed to further evaluate and treat the patient. Medication Reconcilliation Current Medication List: was personally reviewed by me Blood Pressure Screening Patient's blood pressure: Elevated blood pressure Blood pressure disposition: Referred to PCP Consults Time Called: 1745 Consulting Physician: Luis SIERRA Returned Call: 1750 Discussed the patient's case with Luis SIERRA. The patient will be evaluated for further treatment and disposition. Impression Primary Impression: Hypertensive emergency Additional Impressions: Volume overload SOB (shortness of breath) Critical Care I have personally spent greater than 45 minutes of critical care time in the direct management of this patient. This includes bedside care, interpretation of diagnostic studies, and testing, discussion with consultants, patient, and family members, and other required patient management activities. This 45 minutes is in excess of all separately billable procedures. Scribe Attestation The scribe's documentation has been prepared under my direction and personally reviewed by me in its entirety. I confirm that the note above accurately reflects all work, treatment, procedures, and medical decision making performed by me. Departure Information Dispostion Being Evaluated By Hospitalist Referrals Aiyana Asencio M.D. (PCP) Patient Instructions My [facility] Problem Qualifiers Additional Impressions: Volume overload Hypervolemia type: unspecified Qualified Codes: E87.70 - Fluid overload, unspecified
[2017-10-23] MEDS ORDERED: FLNIN/ NAE (15:37)
[2017-10-23] MEDS ORDERED: LEVA45AE INH (15:37)
[2017-10-23] MEDS ORDERED: NVLG SC ×2 (15:37)
[2017-10-23] MEDS ORDERED: XPNINS NEB (15:37)
[2017-10-23] MEDS ORDERED: LSX20 PO (15:37)
[2017-10-23] MEDS ORDERED: LEVO100T7 PO (15:37)
[2017-10-23] MEDS ORDERED: LVMI SC (15:37)
[2017-10-23] MEDS ORDERED: ASPI81TA28 PO (15:37)
--- NOTE | 2017-10-23 15:41 | DIAGNOSTIC IMAGING REPORT ---
CHEST ONE VIEW PORTABLE CLINICAL HISTORY: CHEST PAIN COMPARISON STUDY: Chest radiograph September 20, 2017. FINDINGS: There is no pneumothorax or pleural effusion. There is pulmonary vascular congestion with suspected mild pleural edema. Moderate cardiomegaly is noted. There is no consolidation to suggest pneumonia. IMPRESSION: 1. Pulmonary vascular congestion with suspected pulmonary edema. 2. Stable cardiomegaly. Electronically signed by: Mack Soto M.D. 10/23/2017 3:39 PM Dictated Date/Time: 10/23/2017 3:37 PM
[2017-10-23 16:42] LABS: PTT PATIENT 24.1 SECONDS (21.0-31.0)
[2017-10-23 16:52] LABS: ALBUMIN 2.9 gm/dl (3.4-5.0); ALT/SGPT 35 U/L (12-78); BLOOD UREA NITROGEN 22 mg/dl (7-18); CALCIUM 9.5 mg/dl (8.5-10.1); CARBON DIOXIDE 27 mmol/L (21-32); CREATININE 1.12 mg/dl (0.60-1.20); GLUCOSE 131 mg/dl (70-99); LIPASE 256 U/L (73-393); POTASSIUM 3.7 mmol/L (3.5-5.1); SODIUM 139 mmol/L (136-145)
[2017-10-23 16:57] LABS: ALKALINE PHOSPHATASE 104 U/L (45-117); AST/SGOT 15 U/L (15-37); TOTAL PROTEIN 7.5 gm/dl (6.4-8.2)
[2017-10-23 17:35] LABS: BASO % 0.3 %; BASO ABS # 0.03 K/uL (0-0.2); EOS % 2.1 %; EOS ABS # 0.23 K/uL (0-0.5); HEMATOCRIT 35.3 % (37-47); HEMOGLOBIN 11.5 g/dL (12.0-16.0); IG# 0.17 K/uL (0.00-0.02); LYMPH % 34.2 %; LYMPH ABS # 3.83 K/uL (1.2-3.4); MEAN CELL VOLUME 91.7 fL (80-100); MEAN CORPUSCULAR HEMOGLOBIN 29.9 pg (25-34); MEAN CORPUSCULAR HGB CONC 32.6 g/dl (32-36); MEAN PLATELET VOLUME 10.7 fL (7.4-10.4); MONO % 7.2 %; MONO ABS # 0.81 K/uL (0.11-0.59); NEUT % 54.7 %; NEUT ABS # 6.13 K/uL (1.4-6.5); NUCLEATED RED BLOOD CELL ABS 0.05 K/uL (0-0); PLATELET COUNT 340 K/uL (130-400); RED CELL DISTRIBUTION WIDTH CV 19.1 % (11.5-14.5); RED CELL DISTRIBUTION WIDTH SD 61.9 fL (36.4-46.3)
[2017-10-23] MEDS ORDERED: LEVALBUTEROL/IPRATROPIUM NEB INH PRN (19:00)
[2017-10-23] MEDS ORDERED: GLUCAGON FOR INJ 1 MG VIAL SQ PRN (19:00)
[2017-10-23] MEDS ORDERED: GLUCOSE 40% GEL 15 GM TUBE PO PRN (19:00)
[2017-10-23] MEDS ORDERED: DEXTROSE 50% 50 ML SYR IV PRN (19:00)
[2017-10-23] MEDS ORDERED: NITROGLYCERIN 0.4 MG SL PER TAB CHARGE SL PRN (19:00)
[2017-10-23] MEDS ORDERED: GLUCOSE 10 TABS/TUBE PO PRN (19:00)
[2017-10-23 19:43] VITALS: BP 142/81; PULSE 104; TEMP 36.8; O2SAT 87; BMI 51.8; BMI 57.1
[2017-10-23] MEDS ORDERED: LEVALBUTEROL 1.25MG/0.5ML NEB INH PRN (19:45)
[2017-10-23] MEDS ORDERED: IPRATROPIUM BROMIDE NEB SOLN 0.02% 2.5 ML VIAL INH PRN (19:45)
--- NOTE | 2017-10-23 20:34 | History and Physical ---
History & Physical Date & Time of Service: Oct 23, 2017 at 18:24 Chief Complaint: Respiratory Problems, Chest Palpitations Primary Care Physician: Aiyana Asencio M.D. History of Present Illness Source: patient, family Mrs Molina is a 62 year old female who presents to the ER with worsening shortness of breath and left sided chest pain. She feels it is similar to her previous admission from Aug - 24 September 2017 diagnosed with acute hypoxic respiratory failure secondary to bronchitis. She was treated with prednisone, ceftriaxone nebulizers and lasix and progressively improved enough for discharge. She feels she never fully improved from that hospitalization but was getting better up until a week ago. Initially nasal congestion and mild cough starting when she saw pulmonology for follow up on 12 October. 1 week prior she noticed increasing shortness of breath on less exertion, then the chest pain and palpitations start after the shortness of breath. Associated occasional nausea but no diaphoresis. On a flight back from [place] 3 days prior she had shortness of breath and chest pain (heaviness, central) at rest and reports having O2 saturation from her portable monitor of 72% while in the air. 2 days prior she reports her viral URI became worse with increasing nasal congestion and cough. She started taking Tyelenol Cold and Flu which contained phenylephrine. Her nasal congestion improved but the shortness of breath, chest pain and palpitations have become progressively worse since then. On her last admission she had raised troponin thought to be demand due to hypoxia and tachycardia (from albuterol). Plan from cardiology (Dr Hurley) was for an outpatient dobutamine stress test (planned for November 05) to allow her to get over her current bronchitis. Echo - no wall motion abnormalities, LVEF 65-70%. She had a V/Q scan on September 20 2017 showing low probability of pulmonary embolism. She is also awaiting a sleep study. She describes orthopnea and PND since Jul 2016. 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 She denies claudication. Risk factors: T2DM HbA1C 11.0, smoke exposure from parents. Past Medical/Surgical History Medical Problems: (1) Anxiety (2) Cellulitis (3) Chest pain (4) CHF (congestive heart failure) (5) Colitis (6) Diabetes (7) Diverticulitis (8) Elevated troponin (9) GERD (gastroesophageal reflux disease) (10) Hypoxia (11) Pre-syncope (12) Thyroid cancer (13) Wheezing Family History Diabetes mellitus FH: gallbladder disease FH: thyroid cancer Heart disease Social History Smoking Status: Never Smoker Smokeless Tobacco Use: No Alcohol Use: none Drug Use: none Marital Status: Housing status: lives with significant other Occupational Status: employed, other Immunizations History of Influenza Vaccine: Yes History of Tetanus Vaccine?: Unknown History of Pneumococcal: Yes History of Hepatitis B Vaccine: Unknown Allergies Coded Allergies: Shellfish (Verified Allergy, Severe, "SEAFOOD" -- HIVES and ANAPHLYAXIS , 09/18/17) Sulfites (Verified Allergy, Severe, HIVES AND THROAT CLOSES, 09/17/17) Iodinated Contrast Media (Verified Allergy, Unknown, UNKNOWN, 09/17/17) Iodine (Verified Allergy, Unknown, 09/17/17) Home Medications Scheduled Aspirin (Aspirin Ec), 81 MG PO DAILY Fluticasone Propionate (Fluticasone Propionate), 2 SPRAYS XOCHITL DAILY Furosemide (Furosemide), 20 MG PO QAM Insulin Aspart (Novolog), 40 UNITS SC QAM Insulin Aspart (Novolog), 1 DOSE SC UD Insulin Detemir (Levemir), 50 UNITS SC BID Levothyroxine Sodium (Levothyroxine Sodium), 100 MCG PO QAM Lisinopril (Zestril), 20 MG PO DAILY Scheduled PRN Levalbuterol (Levalbuterol HCl), 0.63 MG NEB Q6H PRN for SOB/Wheezing Levalbuterol Tartrate (Levalbuterol Tartrate Hfa), 2 PUFFS INH QID PRN for SOB/ Wheezing Review of Systems All systems reviewed and otherwise negative other than HPI Constitutional: No fever, No chills ENT: No sore throat Respiratory: + cough, + shortness of breath, + dyspnea on exertion, No dyspnea at rest (except on flight), No hemoptysis Cardiovascular: + chest pain, + orthopnea, + PND, + edema, + palpitations, No claudication Abdomen: + nausea (see HPI), No pain, No vomiting Musculoskeletal: No joint pain, No muscle pain Genitourinary - Female: No dysuria, No urinary frequency, No urinary urgency Integumentary: No rash, No itch Physical Exam Vital Signs Date Time Temp Pulse Resp B/P (MAP) Pulse Ox O2 Delivery O2 Flow Rate FiO2 10/23/17 16:59 83 18 134/76 100 Room Air 10/23/17 15:59 98 Nasal Cannula 2.0 10/23/17 15:58 86 Room Air 10/23/17 15:48 95 Room Air 10/23/17 15:46 Room Air 10/23/17 15:45 80 22 168/81 95 Room Air 10/23/17 15:23 82 10/23/17 14:42 36.4 88 20 195/93 90 Room Air General Appearance: + obese (morbid) Head: normocephalic, atraumatic Eyes: normal inspection, PERRL, EOMI ENT: pharynx normal Neck: no JVD (unable to assess due to neck size), trachea midline, + pertinent finding (thyroidectomy scar well healed) Respiratory/Chest: lungs clear, normal breath sounds (intermittent wheeze noted otherwise good air entry and breath sounds throughout), no respiratory distress, no accessory muscle use, + wheezing (mild end expiratory wheeze) Cardiovascular: regular rate, rhythm, no murmur, normal peripheral pulses Abdomen/GI: normal bowel sounds, non tender, soft Extremities/Musculoskelatal: no calf tenderness (equal size b/l), + pedal edema (2+ bilaterally, chronic lymphoedema) Neurologic/Psych: alert, oriented x 3 Diagnostics Laboratory Results Results Past 24 Hours Test 10/23/17 16:23 10/23/17 17:24 Range/Units Prothrombin Time 10.7 9.0-12.0 SECONDS Prothromb Time International Ratio 1.0 0.9-1.1 Activated Partial Thromboplast Time 24.1 21.0-31.0 SECONDS Partial Thromboplastin Ratio 0.9 Sodium Level 139 136-145 mmol/L Potassium Level 3.7 3.5-5.1 mmol/L Chloride Level 102 98-107 mmol/L Carbon Dioxide Level 27 21-32 mmol/L Anion Gap 9.0 3-11 mmol/L Blood Urea Nitrogen 22 7-18 mg/dl Creatinine 1.12 0.60-1.20 mg/dl Est Creatinine Clear Calc Drug Dose 64.4 ml/min Estimated GFR () 61.0 Estimated GFR (Non- 52.6 BUN/Creatinine Ratio 19.6 10-20 Random Glucose 131 70-99 mg/dl Calcium Level 9.5 8.5-10.1 mg/dl Total Bilirubin 0.4 0.2-1 mg/dl Direct Bilirubin < 0.1 0-0.2 mg/dl Aspartate Amino Transf (AST/SGOT) 15 15-37 U/L Alanine Aminotransferase (ALT/SGPT) 35 12-78 U/L Alkaline Phosphatase 104 45-117 U/L Troponin I < 0.015 0-0.045 ng/ml Pro-B-Type Natriuretic Peptide 263 0-900 pg/ml Total Protein 7.5 6.4-8.2 gm/dl Albumin 2.9 3.4-5.0 gm/dl Lipase 256 73-393 U/L White Blood Count 11.20 4.8-10.8 K/uL Red Blood Count 3.85 4.2-5.4 M/uL Hemoglobin 11.5 12.0-16.0 g/dL Hematocrit 35.3 37-47 % Mean Corpuscular Volume 91.7 80-100 fL Mean Corpuscular Hemoglobin 29.9 25-34 pg Mean Corpuscular Hemoglobin Concent 32.6 32-36 g/dl Platelet Count 340 130-400 K/uL Mean Platelet Volume 10.7 7.4-10.4 fL Neutrophils (%) (Auto) 54.7 % Lymphocytes (%) (Auto) 34.2 % Monocytes (%) (Auto) 7.2 % Eosinophils (%) (Auto) 2.1 % Basophils (%) (Auto) 0.3 % Neutrophils # (Auto) 6.13 1.4-6.5 K/uL Lymphocytes # (Auto) 3.83 1.2-3.4 K/uL Monocytes # (Auto) 0.81 0.11-0.59 K/uL Eosinophils # (Auto) 0.23 0-0.5 K/uL Basophils # (Auto) 0.03 0-0.2 K/uL RDW Standard Deviation 61.9 36.4-46.3 fL RDW Coefficient of Variation 19.1 11.5-14.5 % Immature Granulocyte % (Auto) 1.5 % Immature Granulocyte # (Auto) 0.17 0.00-0.02 K/uL Nucleated RBC Absolute Count (auto) 0.05 0-0 K/uL Nucleated Red Blood Cells % 0.5 % Venous Blood pH 7.38 7.36-7.41 Venous Blood Partial Pressure CO2 56 38.0-50.0 mmHg Venous Blood Partial Pressure O2 22 mmHg Venous Blood HCO3 32 mmol/L Venous Blood Oxygen Saturation < 60.0 % Venous Blood Base Excess 5.7 mEq/L Diagnostic Radiology CHEST ONE VIEW PORTABLE CLINICAL HISTORY: CHEST PAIN COMPARISON STUDY: Chest radiograph September 20, 2017. FINDINGS: There is no pneumothorax or pleural effusion. There is pulmonary vascular congestion with suspected mild pleural edema. Moderate cardiomegaly is noted. There is no consolidation to suggest pneumonia. IMPRESSION: 1. Pulmonary vascular congestion with suspected pulmonary edema. 2. Stable cardiomegaly. Electronically signed by: Mack Soto M.D. 10/23/2017 3:39 PM Dictated Date/Time: 10/23/2017 3:37 PM EKG Normal sinus rhythm Normal ECG When compared with ECG of 20-SEP-2017 15:40, No significant change was found Confirmed by RUSTY DAY ([id number]) on 10/23/2017 4:23:23 PM Impression Assessment and Plan 62 year old female who presents with left sided chest pain on exertion and shortness of breath Acute hypoxia - mild, likely related to pulmonary edema - no evidence of pneumonia on CXR or exam to suggest need for antibiotics. Previous nebulizer use increased her palpitations with minimal apparent effect as per patient therefore will also hold off continuing these. - aim O2 sats > 94% Left sided chest pain and shortness of breath - concerning for increasing angina, more frequent, longer in duration and occurring with less exertion, one episode on plane at rest 4 days prior to admission. Possibly exacerbated by recent phenylephrine use. - EKG reassuring normal - repeat troponin in morning or if having chest pain with rest - Consult cardiology Pulmonary edema - unclear etiology given unremarkable echo on last admission and normal BNP, ?increased BP (see below) ?viral URI - I&Os, daily weight (124.3kg this admission, 132 kg on discharge last admission ) - IV lasix 20 mg, likely will need to go up on this pending clinical course Elevated blood pressure - likely related to recent use of phenylephrine in Tylenol cold and flu - continue current home medications and monitor Type 2 diabetes mellitus - Switch levemir to lantus due to formulary 50 units BID - Novolog 10 Correction, 3 carb coverage - HbA1C (09/18/17) 11.0 Thyroid cancer s/p thyroidectomy - continue levothyroxine, TSH added to labs Attending addendum: I have physically seen this patient, have supervised the medical residents activities, and agree with the H&P unless as otherwise noted. Assessment and Plan: Acute on chronic respiratory failure with hypoxia-- Most recent [facility] hospitalization was from September 17 - September 24 for CHF and respiratory infection. She was given Lasix 20 mg IV in the ED, and this will be continued every morning. Serial cardiac enzymes. Echo performed during last admission showed ejection fraction of 65-70% and will not be repeated. She did have a VQ scan on September 20, 2017 for similar symptoms and an elevated d- dimer which revealed low probability for pulmonary embolism. Consult cardiology. Diabetes mellitus-- Most recent hemoglobin A1c of September 18, 2017 of 11.0 would suggest that patient needs to be more aggressive about controlling her blood sugars to minimize the complications of respiratory infection and CHF and recurrent admissions. Change from Levemir to Lantus while in hospital as above and coverage as above. Advanced Directives Existing Advance Directive: No Existing Living Will: No Existing Power of Gear Straightener: No Resuscitation Status Full VTE Prophylaxis Will order VTE Prophylaxis: Yes Reason for no VTE drug order: Treatment not indicated (pending possible cardiac cath) Social Service Consult None Apply Additional Copies To Aiyana Asencio M.D.; Kervin Hurley M.D. Resident Tracking Resident Involvement: Resident Care Provided Care Provided: Adult Hospital Medicine
[2017-10-23] MEDS ORDERED: INSULIN GLARGINE SOLOSTAR 100 UNITS/ML 3 ML PEN SC SCH (21:00)
[2017-10-23 23:07] VITALS: PULSE 90; O2SAT 98
[2017-10-23] MEDS: INSULIN ASPART 100 UNITS/ML 3 ML PEN SC SCH (23:30)
[2017-10-23 23:41] VITALS: BP 120/68; PULSE 91; TEMP 37.3; O2SAT 98
[2017-10-24] VITALS (7 sets, daily range): BP systolic 117–125; BP diastolic 48–72; PULSE 82–93; TEMP 36.8–37.5; O2SAT 94–98
[2017-10-24] MEDS: INSULIN DETEMIR FLEXPEN/FLEX TOUCH 100 UNITS/ML 3ML SC SCH ×3 (00:12→20:31)
[2017-10-24] MEDS: LEVOTHYROXINE 100 MCG TAB PO SCH (06:00)
[2017-10-24 07:18] LABS: BASO % 0.3 %; BASO ABS # 0.04 K/uL (0-0.2); EOS % 1.8 %; EOS ABS # 0.22 K/uL (0-0.5); HEMATOCRIT 33.7 % (37-47); HEMOGLOBIN 10.9 g/dL (12.0-16.0); IG# 0.11 K/uL (0.00-0.02); LYMPH % 26.6 %; LYMPH ABS # 3.27 K/uL (1.2-3.4); MEAN CELL VOLUME 90.8 fL (80-100); MEAN CORPUSCULAR HEMOGLOBIN 29.4 pg (25-34); MEAN CORPUSCULAR HGB CONC 32.3 g/dl (32-36); MEAN PLATELET VOLUME 10.7 fL (7.4-10.4); MONO % 7.7 %; MONO ABS # 0.95 K/uL (0.11-0.59); NEUT % 62.7 %; NEUT ABS # 7.72 K/uL (1.4-6.5); NUCLEATED RED BLOOD CELL ABS 0.03 K/uL (0-0); PLATELET COUNT 312 K/uL (130-400); RED CELL DISTRIBUTION WIDTH CV 19.9 % (11.5-14.5); RED CELL DISTRIBUTION WIDTH SD 65.2 fL (36.4-46.3); WHITE BLOOD COUNT 12.31 K/uL (4.8-10.8)
[2017-10-24 07:50] LABS: BLOOD UREA NITROGEN 20 mg/dl (7-18); CALCIUM 9.1 mg/dl (8.5-10.1); CARBON DIOXIDE 29 mmol/L (21-32); CHOLESTEROL 210 mg/dl (0-200); CREATININE 0.98 mg/dl (0.60-1.20); GLUCOSE 173 mg/dl (70-99); POTASSIUM 3.8 mmol/L (3.5-5.1); SODIUM 139 mmol/L (136-145)
[2017-10-24 07:54] LABS: LDL CHOLESTEROL CALCULATED 101 mg/dl
[2017-10-24] MEDS: INSULIN ASPART 100 UNITS/ML 3 ML PEN SC SCH ×4 (08:42→20:31)
[2017-10-24] MEDS: FLUTICASONE PROPIONATE NA SPR 16 GM BTL NAE SCH (08:43)
[2017-10-24] MEDS: LISINOPRIL 20 MG TAB PO SCH (08:43)
[2017-10-24] MEDS: ASPIRIN 81 MG ECTAB PO SCH (08:43)
[2017-10-24] MEDS ORDERED: FUROSEMIDE INJ 20 MG in SYRINGE 0 ML IV SCH (09:00)
[2017-10-24] MEDS ORDERED: FUROSEMIDE 20 MG TAB PO SCH (09:00)
--- NOTE | 2017-10-24 10:30 | Hospitalist Progress Note ---
Hospitalist Progress Note Date of Service Oct 24, 2017. (Luis Rae, SCOTT) Subjective Pt evaluation today including: conversation w/ patient, physical exam, chart review, lab review, review of studies, review of inpatient medication list Pain: denies any chest pain PO Intake: NPO for now Voiding: no voiding problems feels much better this morning - no chest pain, no shortness of breath. walked to bathroom with no shortness of breath and on room air. feels swelling in hands and legs is much better although there is still some. Constitutional: No see HPI, No fever, No chills, No sweats, No weight loss, No weakness, No fatigue, No problem reported Eyes: No see HPI, No worsening of vision, No eye pain, No redness, No discharge, No diplopia, No problem reported ENT: No see HPI, No hearing loss, No unusual epistaxis, No nasal symptoms, No sore throat, No tinnitus, No dental problems, No trouble swallowing, No problem reported Respiratory: No see HPI, No cough, No sputum, No wheezing, No shortness of breath, No dyspnea on exertion, No dyspnea at rest, No hemoptysis, No problem reported Cardiovascular: + edema (feels swelling in legs and hands is improving), No see HPI, No chest pain, No orthopnea, No PND, No claudication, No palpitations, No problem reported Abdomen: No see HPI, No pain, No nausea, No vomiting, No diarrhea, No constipation, No GI bleeding, No problem reported Musculoskeletal: No see HPI, No joint pain, No muscle pain, No swelling, No calf pain, No problem reported Neurologic: No see HPI, No memory loss, No paralysis, No weakness, No numbness/tingling, No vertigo, No balance problems, No problem reported Psychiatric: No see HPI, No depression symptoms, No anhedonism, No anxiety, No insomnia, No substance abuse, No problem reported Skin: No see HPI, No rash, No itch, No new/changing skin lesions, No color change, No bleeding, No problem reported (Luis Rae CRNP) Medications reviewed inpatient meds (Luis Rae CRNP) Objective Vital Signs Date Time Temp Pulse Resp B/P (MAP) Pulse Ox O2 Delivery O2 Flow Rate FiO2 10/24/17 08:30 37.0 84 20 125/69 (87) 95 Nasal Cannula 2.0 10/24/17 08:00 Nasal Cannula 2.0 10/24/17 04:00 98 Nasal Cannula 2.0 10/24/17 03:53 37.5 93 18 117/66 (83) 96 Nasal Cannula 2.0 10/24/17 00:00 98 Nasal Cannula 2.0 10/23/17 23:41 37.3 91 18 120/68 (85) 98 Nasal Cannula 2.0 10/23/17 23:07 90 16 98 Nasal Cannula 2.0 10/23/17 20:22 88 20 150/94 98 Room Air 10/23/17 19:43 36.8 104 24 142/81 87 Room Air 10/23/17 19:24 93 10/23/17 18:32 91 22 144/49 93 Nasal Cannula 2.0 10/23/17 16:59 83 18 134/76 100 Room Air 10/23/17 15:59 98 Nasal Cannula 2.0 10/23/17 15:58 86 Room Air 10/23/17 15:48 95 Room Air 10/23/17 15:46 Room Air 10/23/17 15:45 80 22 168/81 95 Room Air 10/23/17 15:23 82 10/23/17 14:42 36.4 88 20 195/93 90 Room Air (Luis Rae ., VIDEO GAME CREATOR) Physical Exam General Appearance: WD/WN Eyes: normal inspection, sclerae normal ENT: hearing grossly normal, pharynx normal Neck: supple, no JVD (next is large) Respiratory/Chest: chest non-tender, lungs clear (slightly diminished at the bases) Cardiovascular: regular rate, rhythm, no murmur Abdomen: normal bowel sounds, non tender (obese) Extremities: normal range of motion, + pedal edema Neurologic/Psychiatric: no motor/sensory deficits, alert, oriented x 3 Skin: normal color, warm/dry, no rash (Luis Rae ., VIDEO GAME CREATOR) Laboratory Results Last 24 Hours Test 10/23/17 16:23 10/23/17 17:24 10/23/17 19:15 10/23/17 22:46 Prothrombin Time 10.7 SECONDS Prothromb Time International Ratio 1.0 Activated Partial Thromboplast Time 24.1 SECONDS Partial Thromboplastin Ratio 0.9 Sodium Level 139 mmol/L Potassium Level 3.7 mmol/L Chloride Level 102 mmol/L Carbon Dioxide Level 27 mmol/L Anion Gap 9.0 mmol/L Blood Urea Nitrogen 22 mg/dl Creatinine 1.12 mg/dl Est Creatinine Clear Calc Drug Dose 64.4 ml/min Estimated GFR () 61.0 Estimated GFR (Non- 52.6 BUN/Creatinine Ratio 19.6 Random Glucose 131 mg/dl Calcium Level 9.5 mg/dl Total Bilirubin 0.4 mg/dl Direct Bilirubin < 0.1 mg/dl Aspartate Amino Transf (AST/SGOT) 15 U/L Alanine Aminotransferase (ALT/SGPT) 35 U/L Alkaline Phosphatase 104 U/L Troponin I < 0.015 ng/ml Pro-B-Type Natriuretic Peptide 263 pg/ml Total Protein 7.5 gm/dl Albumin 2.9 gm/dl Lipase 256 U/L Thyroid Stimulating Hormone (TSH) 2.680 uIu/ml White Blood Count 11.20 K/uL Red Blood Count 3.85 M/uL Hemoglobin 11.5 g/dL Hematocrit 35.3 % Mean Corpuscular Volume 91.7 fL Mean Corpuscular Hemoglobin 29.9 pg Mean Corpuscular Hemoglobin Concent 32.6 g/dl Platelet Count 340 K/uL Mean Platelet Volume 10.7 fL Neutrophils (%) (Auto) 54.7 % Lymphocytes (%) (Auto) 34.2 % Monocytes (%) (Auto) 7.2 % Eosinophils (%) (Auto) 2.1 % Basophils (%) (Auto) 0.3 % Neutrophils # (Auto) 6.13 K/uL Lymphocytes # (Auto) 3.83 K/uL Monocytes # (Auto) 0.81 K/uL Eosinophils # (Auto) 0.23 K/uL Basophils # (Auto) 0.03 K/uL RDW Standard Deviation 61.9 fL RDW Coefficient of Variation 19.1 % Immature Granulocyte % (Auto) 1.5 % Immature Granulocyte # (Auto) 0.17 K/uL Nucleated RBC Absolute Count (auto) 0.05 K/uL Nucleated Red Blood Cells % 0.5 % Venous Blood pH 7.38 Venous Blood Partial Pressure CO2 56 mmHg Venous Blood Partial Pressure O2 22 mmHg Venous Blood HCO3 32 mmol/L Venous Blood Oxygen Saturation < 60.0 % Venous Blood Base Excess 5.7 mEq/L Bedside Glucose 84 mg/dl 143 mg/dl Test 10/24/17 06:38 White Blood Count 12.31 K/uL Red Blood Count 3.71 M/uL Hemoglobin 10.9 g/dL Hematocrit 33.7 % Mean Corpuscular Volume 90.8 fL Mean Corpuscular Hemoglobin 29.4 pg Mean Corpuscular Hemoglobin Concent 32.3 g/dl Platelet Count 312 K/uL Mean Platelet Volume 10.7 fL Neutrophils (%) (Auto) 62.7 % Lymphocytes (%) (Auto) 26.6 % Monocytes (%) (Auto) 7.7 % Eosinophils (%) (Auto) 1.8 % Basophils (%) (Auto) 0.3 % Neutrophils # (Auto) 7.72 K/uL Lymphocytes # (Auto) 3.27 K/uL Monocytes # (Auto) 0.95 K/uL Eosinophils # (Auto) 0.22 K/uL Basophils # (Auto) 0.04 K/uL RDW Standard Deviation 65.2 fL RDW Coefficient of Variation 19.9 % Immature Granulocyte % (Auto) 0.9 % Immature Granulocyte # (Auto) 0.11 K/uL Nucleated RBC Absolute Count (auto) 0.03 K/uL Nucleated Red Blood Cells % 0.2 % Sodium Level 139 mmol/L Potassium Level 3.8 mmol/L Chloride Level 104 mmol/L Carbon Dioxide Level 29 mmol/L Anion Gap 6.0 mmol/L Blood Urea Nitrogen 20 mg/dl Creatinine 0.98 mg/dl Est Creatinine Clear Calc Drug Dose 78.5 ml/min Estimated GFR () 71.7 Estimated GFR (Non- 61.8 BUN/Creatinine Ratio 20.7 Random Glucose 173 mg/dl Calcium Level 9.1 mg/dl Troponin I < 0.015 ng/ml Triglycerides Level 380 mg/dl Cholesterol Level 210 mg/dl HDL Cholesterol 33 mg/dl LDL Cholesterol, Calculated 101 mg/dl VLDL Cholesterol, Calculated 76 mg/dl Cholesterol/HDL Ratio 6.4 (Luis Rae, SCOTT) Diagnostic Results CHEST ONE VIEW PORTABLE CLINICAL HISTORY: CHEST PAIN COMPARISON STUDY: Chest radiograph September 20, 2017. FINDINGS: There is no pneumothorax or pleural effusion. There is pulmonary vascular congestion with suspected mild pleural edema. Moderate cardiomegaly is noted. There is no consolidation to suggest pneumonia. IMPRESSION: 1. Pulmonary vascular congestion with suspected pulmonary edema. 2. Stable cardiomegaly. (Luis Rae, SCOTT) Assessment and Plan 62 year old female who presents with left sided chest pain on exertion and shortness of breath 1. Acute on chronic respiratory failure with hypoxia - mild, likely related to pulmonary edema - no evidence of pneumonia on CXR or exam to suggest need for antibiotics. - aim O2 sats > 94% - wean O2 - VQ from 09/20/17 low prob PE 2. Left sided chest pain and shortness of breath - EKG with no acute ST changes - Trop negative - awaiting cards input 3. Pulmonary edema on CXR- unclear etiology - I&Os, daily weight - wt down 1 kg over night - IV lasix 20 mg still some edema - increase to BID for now 4. Hypertensive urgency - blood pressure stable - likely related to recent use of phenylephrine - continue lisinopril Type 2 diabetes mellitus - cont lantus 50 units BID and SSI - HbA1C (09/18/17) 11.0 Thyroid cancer s/p thyroidectomy - continue levothyroxine, TSH 2.8 Continued [facility] stay due to: multiple IV medications needed Discharge planning: home (Luis Rae CRNP) SCOTT Physician Supervision Note: I interviewed and examined the patient. Discussed with Luis CHAVEZ and agree with findings and plan as documented in the note. Any exceptions or clarifications are listed here: None Pt presented with chest pain and acute hypoxic respiratory failure with hypoxia on admission from pulmonary edema has ruled out of acs by negative serial enzymes, for possible ischemic workup by Cardiology vs 37 84 20 125/89 Pt has improved with diuresis with lasix, cardiology is contemplating ischemic work up as previously considered to do this month as outpt before symptoms worsened Documented By: Isaias Johnson (Isaias Johnson M.D.)
--- NOTE | 2017-10-24 14:05 | Cardiology Consultation ---
Cardiology Consultation Date of Consultation: Oct 24, 2017. Requesting Physician: Dr. Stahl Reason for Consultation: Chest pain Pt evaluation today including: conversation w/ patient, physical exam, lab review, review of studies, review of inpatient medication list History of Present Illness This is a 62-year-old woman who was recently evaluated in August 2017 when she had a fever somewhere around 1 week before presentation, she subsequently developed a cough and productive brown sputum. She also developed shortness of breath, she was initially treated with nebulizers but became much more short of breath. She then developed chest discomfort and palpitations as well as worsening peripheral edema on top of her chronic lymphedema and came into the emergency room on September 17, 2017. There she was found to be hypoxic (84% oxygen saturation on room air), tachycardic at 103 bpm and hypertensive with a blood pressure reported at 193/55. Additionally her chest x-ray suggested pulmonary edema. Her initial troponin was 0.183, subsequently they dropped ( 0.151 and then 0.085). Her BNP was normal, her echocardiogram also was normal. She has risk factors for coronary disease but no documented coronary disease and no prior symptoms. To me she described taking her nebulizer treatment and having a racing heartbeat associated with chest, neck and mid scapular pain and shortness of breath. She also described shortness of breath with minimal exertion associated with chest heaviness before she came to the hospital at that time. Then she was walking around the hallway and developed sudden onset of symptoms of shortness of breath, her heart pounding as well as substernal and mid scapular chest pain. She went back to the room, the shortness of breath is improved as was the heart pounding but she still had the discomfort. This is reminiscent of what she described when she came into the emergency room. Enzymes and ECG were unchanged however. With her presentation of shortness of breath as well as elevated cardiac enzymes the possibility of obstructive coronary disease was entertained, however her findings were more consistent with demand ischemia although that could have occurred in the presence of coronary artery disease. We therefore planned stress testing, with her tenuous pulmonary status I did not want to do that in the hospital and she did not seem to have an acute event. That was planned for November 05, 2017. She has just returned from a trip to [place], on the flight back she had a lot of difficulty with shortness of breath and was unable to maintain a good blood oxygenation (apparently it was about 72% as she monitored it). She also had chest discomfort. She does not have chest discomfort and less her oxygen level is low, if she is active and her oxygen level is low (which is accompanied by significant shortness of breath) then she will often have chest discomfort. She has not had none of that since she has been in the hospital. She never had chest discomfort and tell her prior hospitalization when she developed her respiratory difficulty. She has never had a coronary evaluation to my knowledge. Past Medical/Surgical History (1) Diabetes (2) GERD (gastroesophageal reflux disease) (3) Thyroid cancer Family History Diabetes mellitus FH: gallbladder disease FH: thyroid cancer Heart disease Social History Smoking Status: Never Smoker History of Alcohol Use: No Review of Systems Constitutional: No fever, No weight loss, No weakness Respiratory: + see HPI, + shortness of breath, + dyspnea on exertion, No cough , No sputum, No wheezing, No dyspnea at rest, No hemoptysis, No problem reported Cardiac: + see HPI, + chest pain, + edema (feels swelling in legs and hands is improving), No orthopnea, No PND, No claudication, No palpitations, No problem reported Abdomen: No pain, No nausea, No vomiting, No diarrhea, No GI bleeding Female : No problem reported Neurologic: No paralysis, No weakness, No numbness/tingling, No balance problems Heme: No abnormal bleeding/bruising, No clotting problems Endo: No fatigue Skin: No problem reported All Other Systems: Reviewed and Negative Allergies Coded Allergies: Shellfish (Verified Allergy, Severe, "SEAFOOD" -- HIVES and ANAPHLYAXIS , 09/18/17) Sulfites (Verified Allergy, Severe, HIVES AND THROAT CLOSES, 09/17/17) Iodinated Contrast Media (Verified Allergy, Unknown, UNKNOWN, 09/17/17) Iodine (Verified Allergy, Unknown, 09/17/17) Medications Current Inpatient Medications Medications (Trade) Dose Ordered Sig/Jason Route Start Time Stop Time Status Last Admin Dose Admin Nitroglycerin (Nitrostat Tab) 0.4 mg UD PRN SL 10/23/17 19:00 11/22/17 18:59 Aspirin (Ecotrin Tab) 81 mg DAILY PO 10/24/17 09:00 11/23/17 08:59 10/24/17 08:43 81 MG Fluticasone Propionate (Flonase Nasal [place]) 2 sprays DAILY XOCHITL 10/24/17 09:00 11/23/17 08:59 10/24/17 08:43 2 SPRAYS Levothyroxine Sodium (Synthroid Tab) 100 mcg DAILYBB PO 10/24/17 06:00 11/23/17 06:59 10/24/17 06:00 100 MCG Lisinopril (Zestril Tab) 20 mg DAILY PO 10/24/17 09:00 11/23/17 08:59 10/24/17 08:43 20 MG Insulin Aspart (novoLOG ASPART) SLIDING SCALE If C... ACHS SC 10/23/17 21:00 11/22/17 20:59 10/24/17 08:42 4 UNITS Glucose (Glucose 40% Gel) 15-30 GRAMS 15 GRAMS... UD PRN PO 10/23/17 19:00 11/22/17 18:59 Glucose (Glucose Chew Tab) 4-8 Tablets 4 Tabl... UD PRN PO 10/23/17 19:00 11/22/17 18:59 Dextrose (Dextrose 50% 50ML Syringe) 25-50ML OF 50% DW IV FOR... UD PRN IV 10/23/17 19:00 11/22/17 18:59 Glucagon (Glucagon Inj) 1 mg UD PRN SQ 10/23/17 19:00 11/22/17 18:59 Ipratropium [place] (Atrovent 0.02% 0.5MG/2.5ML Neb) 0.5 mg Q6R PRN INH 10/23/17 19:45 11/22/17 19:44 10/23/17 23:05 0.5 MG Levalbuterol (Xopenex 1.25MG/ 0.5ML Neb) 1.25 mg Q6R PRN INH 10/23/17 19:45 11/22/17 19:44 10/23/17 23:05 1.25 MG Insulin Detemir (Levemir Flexpen/ FlexTouch) 50 units BID SC 10/24/17 09:00 11/23/17 08:59 10/24/17 08:42 50 UNITS Furosemide 20 mg/ Syringe 2 ml @ 4 mls/min BID17 IV 4/4/18 17:00 11/23/17 08:59 Physical Exam Vital Signs Past 12 Hours Date Time Temp Pulse Resp B/P (MAP) Pulse Ox O2 Delivery O2 Flow Rate FiO2 10/24/17 08:30 37.0 84 20 125/69 (87) 95 Nasal Cannula 2.0 10/24/17 08:00 Nasal Cannula 2.0 10/24/17 04:00 98 Nasal Cannula 2.0 10/24/17 03:53 37.5 93 18 117/66 (83) 96 Nasal Cannula 2.0 10/24/17 00:00 98 Nasal Cannula 2.0 Constitutional: General Apperance: heathly-appearing Level of Distress: NAD Psychiatric: Mental Status: active & alert Head: normocephalic Eyes: EOM: EOMI ENMT: normal ENT inspection, hearing grossly normal Neck: supple, no masses Lungs: Respiratory effort: no dyspnea, good air movement Auscultation: breath sounds normal, no wheezing Cardiovascular: Heart Auscultation: RRR, no murmurs, no rubs, no gallops Peripheral Pulses: Bruits: none appreciated Abdomen: Bowel Sounds: normal Inspection & Palpation: soft, no tenderness, guarding & rebound, no masses Musculoskeletal: normal strength (5/5 throughout) Extremities: no edema Neurologic: Cranial Nerves: grossly intact Sensation: grossly intact Data Laboratory Results: Last 24 Hours Test 10/23/17 16:23 10/23/17 17:24 10/23/17 19:15 10/23/17 22:46 Prothrombin Time 10.7 SECONDS Prothromb Time International Ratio 1.0 Activated Partial Thromboplast Time 24.1 SECONDS Partial Thromboplastin Ratio 0.9 Sodium Level 139 mmol/L Potassium Level 3.7 mmol/L Chloride Level 102 mmol/L Carbon Dioxide Level 27 mmol/L Anion Gap 9.0 mmol/L Blood Urea Nitrogen 22 mg/dl Creatinine 1.12 mg/dl Est Creatinine Clear Calc Drug Dose 64.4 ml/min Estimated GFR () 61.0 Estimated GFR (Non- 52.6 BUN/Creatinine Ratio 19.6 Random Glucose 131 mg/dl Calcium Level 9.5 mg/dl Total Bilirubin 0.4 mg/dl Direct Bilirubin < 0.1 mg/dl Aspartate Amino Transf (AST/SGOT) 15 U/L Alanine Aminotransferase (ALT/SGPT) 35 U/L Alkaline Phosphatase 104 U/L Troponin I < 0.015 ng/ml Pro-B-Type Natriuretic Peptide 263 pg/ml Total Protein 7.5 gm/dl Albumin 2.9 gm/dl Lipase 256 U/L Thyroid Stimulating Hormone (TSH) 2.680 uIu/ml White Blood Count 11.20 K/uL Red Blood Count 3.85 M/uL Hemoglobin 11.5 g/dL Hematocrit 35.3 % Mean Corpuscular Volume 91.7 fL Mean Corpuscular Hemoglobin 29.9 pg Mean Corpuscular Hemoglobin Concent 32.6 g/dl Platelet Count 340 K/uL Mean Platelet Volume 10.7 fL Neutrophils (%) (Auto) 54.7 % Lymphocytes (%) (Auto) 34.2 % Monocytes (%) (Auto) 7.2 % Eosinophils (%) (Auto) 2.1 % Basophils (%) (Auto) 0.3 % Neutrophils # (Auto) 6.13 K/uL Lymphocytes # (Auto) 3.83 K/uL Monocytes # (Auto) 0.81 K/uL Eosinophils # (Auto) 0.23 K/uL Basophils # (Auto) 0.03 K/uL RDW Standard Deviation 61.9 fL RDW Coefficient of Variation 19.1 % Immature Granulocyte % (Auto) 1.5 % Immature Granulocyte # (Auto) 0.17 K/uL Nucleated RBC Absolute Count (auto) 0.05 K/uL Nucleated Red Blood Cells % 0.5 % Venous Blood pH 7.38 Venous Blood Partial Pressure CO2 56 mmHg Venous Blood Partial Pressure O2 22 mmHg Venous Blood HCO3 32 mmol/L Venous Blood Oxygen Saturation < 60.0 % Venous Blood Base Excess 5.7 mEq/L Bedside Glucose 84 mg/dl 143 mg/dl Test 10/24/17 06:38 White Blood Count 12.31 K/uL Red Blood Count 3.71 M/uL Hemoglobin 10.9 g/dL Hematocrit 33.7 % Mean Corpuscular Volume 90.8 fL Mean Corpuscular Hemoglobin 29.4 pg Mean Corpuscular Hemoglobin Concent 32.3 g/dl Platelet Count 312 K/uL Mean Platelet Volume 10.7 fL Neutrophils (%) (Auto) 62.7 % Lymphocytes (%) (Auto) 26.6 % Monocytes (%) (Auto) 7.7 % Eosinophils (%) (Auto) 1.8 % Basophils (%) (Auto) 0.3 % Neutrophils # (Auto) 7.72 K/uL Lymphocytes # (Auto) 3.27 K/uL Monocytes # (Auto) 0.95 K/uL Eosinophils # (Auto) 0.22 K/uL Basophils # (Auto) 0.04 K/uL RDW Standard Deviation 65.2 fL RDW Coefficient of Variation 19.9 % Immature Granulocyte % (Auto) 0.9 % Immature Granulocyte # (Auto) 0.11 K/uL Nucleated RBC Absolute Count (auto) 0.03 K/uL Nucleated Red Blood Cells % 0.2 % Sodium Level 139 mmol/L Potassium Level 3.8 mmol/L Chloride Level 104 mmol/L Carbon Dioxide Level 29 mmol/L Anion Gap 6.0 mmol/L Blood Urea Nitrogen 20 mg/dl Creatinine 0.98 mg/dl Est Creatinine Clear Calc Drug Dose 78.5 ml/min Estimated GFR () 71.7 Estimated GFR (Non- 61.8 BUN/Creatinine Ratio 20.7 Random Glucose 173 mg/dl Calcium Level 9.1 mg/dl Troponin I < 0.015 ng/ml Triglycerides Level 380 mg/dl Cholesterol Level 210 mg/dl HDL Cholesterol 33 mg/dl LDL Cholesterol, Calculated 101 mg/dl VLDL Cholesterol, Calculated 76 mg/dl Cholesterol/HDL Ratio 6.4 Imaging: Chest x-ray shows possible pulmonary congestion EKG: On admission sinus rhythm, normal electrocardiogram Telemetry reviewed: Sinus rhythm and mild sinus tachycardia, no significant abnormality Assessment & Plan 1. Chest discomfort: It is still uncertain what is causing her chest discomfort. This admission she has had no enzyme abnormalities, no electrocardiographic abnormalities and she has had no chest discomfort during the hospitalization. Based on her history, which seems reliable, she gets the chest discomfort when she is hypoxic and exercising. This could be consistent with underlying coronary artery disease which causes symptoms only under extreme stress such as hypoxia and activity. I think it could also be caused by normal coronary arteries and demand ischemia as well. I do think we need to sort that out, I am going to move her stress test up and arrange it for tomorrow if possible. I do not think that she is a good exercise candidate therefore I am going to do it as a dobutamine study. If it is abnormal we should consider catheterization, if it is normal I would not. We could do catheterization but I do not think we have enough information to justify it. 2. Hypoxia: I do not know the cause of her hypoxia, I do not think it is primarily congestive heart failure. She had normal left ventricular size and function at echocardiography in August. I do not think I would repeat that now. Her BUN and creatinine suggests a possible degree of dehydration but that is not very specific. You could diurese until her BUN climbed substantially or her creatinine increases if desired. Thank you for allowing me to participate in her care.
[2017-10-24] MEDS: FUROSEMIDE INJ 20 MG in SYRINGE 0 ML IV SCH (16:59)
[2017-10-24] MEDS ORDERED: DOCUSATE SODIUM 100 MG CAP PO STA (19:08)
[2017-10-25] VITALS (7 sets, daily range): BP systolic 108–138; BP diastolic 62–80; PULSE 74–90; TEMP 36.5–36.9; O2SAT 85–95
[2017-10-25] MEDS: LEVOTHYROXINE 100 MCG TAB PO SCH (05:53)
[2017-10-25] MEDS: INSULIN ASPART 100 UNITS/ML 3 ML PEN SC SCH ×4 (07:00→20:46)
[2017-10-25 07:57] LABS: HEMOGLOBIN 11.6 g/dL (12.0-16.0); MEAN CELL VOLUME 90.9 fL (80-100); MEAN CORPUSCULAR HEMOGLOBIN 29.3 pg (25-34); MEAN CORPUSCULAR HGB CONC 32.2 g/dl (32-36); MEAN PLATELET VOLUME 10.3 fL (7.4-10.4); PLATELET COUNT 302 K/uL (130-400); RED CELL DISTRIBUTION WIDTH CV 19.7 % (11.5-14.5); RED CELL DISTRIBUTION WIDTH SD 64.1 fL (36.4-46.3); WHITE BLOOD COUNT 10.12 K/uL (4.8-10.8)
[2017-10-25] MEDS: ASPIRIN 81 MG ECTAB PO SCH (08:19)
[2017-10-25] MEDS: FLUTICASONE PROPIONATE NA SPR 16 GM BTL NAE SCH (08:19)
[2017-10-25] MEDS: FUROSEMIDE INJ 20 MG in SYRINGE 0 ML IV SCH (08:19)
[2017-10-25] MEDS: LISINOPRIL 20 MG TAB PO SCH (08:19)
[2017-10-25] MEDS: DOCUSATE SODIUM 100 MG CAP PO PRN (08:24)
[2017-10-25 08:26] LABS: CALCIUM 8.9 mg/dl (8.5-10.1); CREATININE 0.99 mg/dl (0.60-1.20); POTASSIUM 3.4 mmol/L (3.5-5.1)
[2017-10-25] MEDS: INSULIN DETEMIR FLEXPEN/FLEX TOUCH 100 UNITS/ML 3ML SC SCH ×2 (09:00→20:46)
--- NOTE | 2017-10-25 09:12 | Cardiology Follow-Up ---
Subjective Date of Service: Oct 25, 2017. Pt evaluation today including: conversation w/ patient, physical exam, lab review, review of studies, review of inpatient medication list History of Present Illness This is a 62-year-old woman who was recently evaluated in August 2017 when she had a fever somewhere around 1 week before presentation, she subsequently developed a cough and productive brown sputum. She also developed shortness of breath, she was initially treated with nebulizers but became much more short of breath. She then developed chest discomfort and palpitations as well as worsening peripheral edema on top of her chronic lymphedema and came into the emergency room on September 17, 2017. There she was found to be hypoxic (84% oxygen saturation on room air), tachycardic at 103 bpm and hypertensive with a blood pressure reported at 193/55. Additionally her chest x-ray suggested pulmonary edema. Her initial troponin was 0.183, subsequently they dropped ( 0.151 and then 0.085). Her BNP was normal, her echocardiogram also was normal. She has risk factors for coronary disease but no documented coronary disease and no prior symptoms. To me she described taking her nebulizer treatment and having a racing heartbeat associated with chest, neck and mid scapular pain and shortness of breath. She also described shortness of breath with minimal exertion associated with chest heaviness before she came to the hospital at that time. Then she was walking around the hallway and developed sudden onset of symptoms of shortness of breath, her heart pounding as well as substernal and mid scapular chest pain. She went back to the room, the shortness of breath is improved as was the heart pounding but she still had the discomfort. This is reminiscent of what she described when she came into the emergency room. Enzymes and ECG were unchanged however. With her presentation of shortness of breath as well as elevated cardiac enzymes the possibility of obstructive coronary disease was entertained, however her findings were more consistent with demand ischemia although that could have occurred in the presence of coronary artery disease. We therefore planned stress testing, with her tenuous pulmonary status I did not want to do that in the hospital and she did not seem to have an acute event. That was planned for November 05, 2017. She has just returned from a trip to [place], on the flight back she had a lot of difficulty with shortness of breath and was unable to maintain a good blood oxygenation (apparently it was about 72% as she monitored it). She also had chest discomfort. She does not have chest discomfort and less her oxygen level is low, if she is active and her oxygen level is low (which is accompanied by significant shortness of breath) then she will often have chest discomfort. She has not had none of that since she has been in the hospital. She never had chest discomfort until her prior hospitalization when she developed her respiratory difficulty. She has never had a coronary evaluation to my knowledge. This morning she reports feeling better, she still had to go back on oxygen because of hypoxia. She has had no chest discomfort. She is scheduled for a pharmacologic stress test today. Social History Smoking Status: Never Smoker History of Alcohol Use: No Review of Systems Respiratory: + see HPI, + shortness of breath, + dyspnea on exertion, No cough , No sputum, No wheezing, No dyspnea at rest, No hemoptysis, No problem reported Cardiac: + see HPI, + chest pain, + edema (feels swelling in legs and hands is improving), No orthopnea, No PND, No claudication, No palpitations, No problem reported Medications Cardiovascular: Item Value Date Time Furosemide 20 mg/ 2 ml @ 4 mls/min 10/24/17 1700 Syringe BID17/IV 10/25/17 0819 Aspirin 81 mg 10/24/17 0900 (Ecotrin Tab) DAILY/PO 10/25/17 0819 Lisinopril 20 mg 10/24/17 0900 (Zestril Tab) DAILY/PO 10/25/17 0819 Objective Vital Signs Past 12 Hours Date Time Temp Pulse Resp B/P (MAP) Pulse Ox O2 Delivery O2 Flow Rate FiO2 10/25/17 07:12 36.6 84 18 118/70 (86) 91 Nasal Cannula 2.0 10/25/17 04:00 Room Air 10/25/17 04:00 36.7 90 18 108/67 (81) 90 Room Air 10/25/17 00:23 36.6 87 16 127/71 (89) 92 Room Air 10/25/17 00:00 Room Air Last Recorded Weight-Kilograms: 134.900 Physical Exam Constitutional: General Apperance: heathly-appearing Level of Distress: NAD Lungs: Respiratory effort: no dyspnea, good air movement Auscultation: breath sounds normal, no wheezing Cardiovascular: Heart Auscultation: RRR, no murmurs, no rubs, no gallops Peripheral Pulses: Bruits: none appreciated Extremities: no edema Data Laboratory Results: Last 24 Hours Test 10/24/17 11:33 10/24/17 16:20 10/24/17 20:28 10/25/17 06:38 Bedside Glucose 190 mg/dl 199 mg/dl 174 mg/dl 130 mg/dl Test 10/25/17 07:32 White Blood Count 10.12 K/uL Red Blood Count 3.96 M/uL Hemoglobin 11.6 g/dL Hematocrit 36.0 % Mean Corpuscular Volume 90.9 fL Mean Corpuscular Hemoglobin 29.3 pg Mean Corpuscular Hemoglobin Concent 32.2 g/dl RDW Standard Deviation 64.1 fL RDW Coefficient of Variation 19.7 % Platelet Count 302 K/uL Mean Platelet Volume 10.3 fL Sodium Level 139 mmol/L Potassium Level 3.4 mmol/L Chloride Level 102 mmol/L Carbon Dioxide Level 28 mmol/L Anion Gap 10.0 mmol/L Blood Urea Nitrogen 19 mg/dl Creatinine 0.99 mg/dl Est Creatinine Clear Calc Drug Dose 76.8 ml/min Estimated GFR () 70.8 Estimated GFR (Non- 61.1 BUN/Creatinine Ratio 19.2 Random Glucose 129 mg/dl Calcium Level 8.9 mg/dl Telemetry reviewed: Sinus rhythm and sinus tachycardia, no significant arrhythmia Assessment and Plan 1. Chest discomfort: It is still uncertain what is causing her chest discomfort. This admission she has had no enzyme abnormalities, no electrocardiographic abnormalities and she has had no chest discomfort during the hospitalization. Based on her history, which seems reliable, she gets the chest discomfort when she is hypoxic and exercising. This could be consistent with underlying coronary artery disease which causes symptoms only under extreme stress such as hypoxia and activity. I think it could also be caused by normal coronary arteries and demand ischemia as well. I do think we need to sort that out, I am going to move her stress test up which is scheduled for today as a pharmacologic study (I do not think she can walk on the treadmill effectively). If it is abnormal we should consider catheterization, if it is normal I would not. We could do catheterization but I do not think we have enough information to justify it. 2. Hypoxia: I do not know the cause of her hypoxia, I do not think it is primarily congestive heart failure. She had normal left ventricular size and function at echocardiography in August. We will get another reading of that on her stress test today. You could diurese until her BUN climbed substantially or her creatinine increases if desired. Thank you for allowing me to participate in her care.
[2017-10-25] MEDS ORDERED: NURSING VERBAL MED ORDER ONE ×2 (09:30→14:30)
[2017-10-25] MEDS ORDERED: INSULIN DETEMIR FLEXPEN/FLEX TOUCH 100 UNITS/ML 3ML SC SCH (09:45)
[2017-10-25] MEDS ORDERED: DOBUTamine HCL 12.5 MG/ML 20 ML VIAL ONE (09:57)
[2017-10-25] MEDS ORDERED: METOPROLOL TARTRATE 1 MG/ML VIAL ONE ×2 (09:57)
[2017-10-25] MEDS ORDERED: ATROPINE SULFATE 0.1 MG/ML 5ML SYR ONE ×2 (09:57)
[2017-10-25] MEDS ORDERED: PERFLUTREN LIPID MICROSPHERE (DEFINITY) IV ONE (11:21)
--- NOTE | 2017-10-25 11:47 | DOBUTAMINE ECHO ---
*NOTICE TO RECEIVING DEMOCRAT AGENCY This information is strictly Confidential and protected under [place] law. [place] law prohibits you from making any further disclosure of this information unless further disclosure is expressly permitted by the written consent of the person to whom it pertains or is authorized by law. A general authorization for the release of medical or other information is not sufficient for this purpose. Hospital accepts no responsibility if the information is made available to any other person, INCLUDING THE PATIENT. Interpretation Summary * Name: LUCY LOU Study Date: 10/25/2017 09:15 AM BP: 129/52 mmHg * Patient Location: C.2T\S\S242\S\2 HR: 87 * : 1955 (M/d/y) Gender: Female Height: 61 in * Age: 62 yrs Ethnicity: CA Weight: 300 lb * Ordering Physician: Kervin Hurley * Referring Physician: Self, Referred * Performed By: Lucy Pfeiffer RDCS * * Reason For Study: CHEST PAIN, SOB * BSA: 2.2 m2 * -- Conclusions -- * Dobutamine Stress Echo: * 1. No ischemic changes noted on dobutamine stress echo imaging at 89 % MPHR. * 2. Negative Dobutamine ECG for ischemia at 89 % MPHR. * 3. Appropriate blood pressure response. * 4. No arrhythmia. * 5. Patient experienced chest tightness with radiation to the left neck/throat with associated shortness of breath. She then developed burning chest discomfort. Chest discomfort resolved 7 minutes into recovery. * 6. Technically difficult study, enhanced with IV Definity. Procedure Details * DOBUTAMINE ECHO, CPT#99868 * A contrast injection of Definity was performed to improve assessment of LV function. * Contrast was injected into an intravenous site in the right arm. * One vial of Definity ultrasound contrast was diluted in normal saline to a total volume of 10 ml. A total of '5' ml of solution was administered during imaging. * Lot # [id number] of Definity utilized for procedure. * Expiration date NOV 08. * The attending nurse who injected the contrast agent was SANDRA ALVES RN. Left Ventricle * The left ventricle is normal in size. * There is normal left ventricular wall thickness. * Wall segments appear to augment appropriately without obvious ischemic changes. * Resting wall motion: Normal. Stress wall motion: Appropriate increase in Left ventricular systolic function and decrease in cavity size. No stress induced segmental wall motion abnormalities. * The left ventricular ejection fraction increases normally with stress. The left ventricular end-systolic cavity size reduces post-stress (normal response). The left ventricular wall motion with stress is normal. * No regional wall motion abnormalities noted. Stress Parameters * Sinus rhythm at 90 bpm. * No significant ST changes. No arrhythmia. * Rest heart rate was '87' BPM. * Rest blood pressure was '129/52' * Maximum heart rate achieved was 141 bpm. * Maximum heart rate was 89 % of maximum age-predicted heart rate. * Maximum blood pressure was '188/58' * Maximum Dobutamine infusion rate was '30' mcg/kg/min. * Dobutamine infusion was terminated due to achieving target heart rate * A total of 5 mg of IV Metoprolol was administered to reverse Dobutamine-induced tachycardia. * The patient exhibited chest pain during the drug infusion. MMode 2D Measurements and Calculations IVSd 1.0 cm LVIDd 4.2 cm LVIDs 2.8 cm LVPWd 1.1 cm IVS/LVPW 0.95 FS 32.9 % EDV(Teich) 79.5 ml ESV(Teich) 30.4 ml EF(Teich) 61.7 % EDV(cubed) 75.2 ml ESV(cubed) 22.7 ml EF(cubed) 69.8 % LV mass(C)d 145.6 grams LV mass(C)dI 64.9 grams/m\S\2 SV(Teich) 49.1 ml SI(Teich) 21.9 ml/m\S\2 SV(cubed) 52.5 ml SI(cubed) 23.4 ml/m\S\2
[2017-10-25] MEDS ORDERED: ACETAMINOPHEN 500 MG TAB PO PRN (14:45)
[2017-10-25] MEDS ORDERED: BISACODYL 10 MG SUPP PR PRN (14:45)
--- NOTE | 2017-10-25 14:52 | Hospitalist Progress Note ---
Hospitalist Progress Note Date of Service Oct 25, 2017. (Luis Rae CRNP) Subjective Pt evaluation today including: conversation w/ patient, conversation w/ family , physical exam, chart review, lab review, review of studies, review of inpatient medication list Pain: ongoing chest pain - describes as burning PO Intake: carmen PO Voiding: no voiding problems No chest pain over night. She did become short of breath over night and was hypoxic this morning with sats in the low 80s. Supplemental O2 applied. Had stress dest and developed central chest burning pain that radiated to the intrascapular area. (Luis Rae CRNP) Medications reviewed (Luis Rae CRNP) Objective Vital Signs Date Time Temp Pulse Resp B/P (MAP) Pulse Ox O2 Delivery O2 Flow Rate FiO2 10/25/17 12:00 Nasal Cannula 2.0 10/25/17 11:42 36.5 74 18 133/80 (97) 92 Room Air 10/25/17 08:00 Nasal Cannula 2.0 10/25/17 07:12 36.6 84 18 118/70 (86) 91 Nasal Cannula 2.0 10/25/17 04:00 Room Air 10/25/17 04:00 36.7 90 18 108/67 (81) 90 Room Air 10/25/17 00:23 36.6 87 16 127/71 (89) 92 Room Air 10/25/17 00:00 Room Air 10/24/17 20:00 Room Air 10/24/17 18:45 37.0 87 17 120/72 (88) 94 Room Air 10/24/17 16:00 Nasal Cannula 2.0 10/24/17 15:05 37.1 87 18 124/68 (86) 94 Room Air (Luis Rae CRNP) Physical Exam General Appearance: no apparent distress Eyes: PERRL, sclerae normal ENT: hearing grossly normal, pharynx normal Neck: supple, no JVD Respiratory/Chest: chest non-tender, lungs clear, no respiratory distress, no accessory muscle use Cardiovascular: regular rate, rhythm, no gallop, no JVD, no murmur Abdomen: normal bowel sounds, soft (obese) Extremities: normal range of motion, + pedal edema (trace - legs are obese and difficult to assess) Neurologic/Psychiatric: alert, normal mood/affect, oriented x 3 Skin: normal color, warm/dry, no rash Lymphatic: no adenopathy (Luis Rae ., SCOTT) Laboratory Results Last 24 Hours Test 10/24/17 16:20 10/24/17 20:28 10/25/17 06:38 10/25/17 07:32 Bedside Glucose 199 mg/dl 174 mg/dl 130 mg/dl White Blood Count 10.12 K/uL Red Blood Count 3.96 M/uL Hemoglobin 11.6 g/dL Hematocrit 36.0 % Mean Corpuscular Volume 90.9 fL Mean Corpuscular Hemoglobin 29.3 pg Mean Corpuscular Hemoglobin Concent 32.2 g/dl RDW Standard Deviation 64.1 fL RDW Coefficient of Variation 19.7 % Platelet Count 302 K/uL Mean Platelet Volume 10.3 fL Sodium Level 139 mmol/L Potassium Level 3.4 mmol/L Chloride Level 102 mmol/L Carbon Dioxide Level 28 mmol/L Anion Gap 10.0 mmol/L Blood Urea Nitrogen 19 mg/dl Creatinine 0.99 mg/dl Est Creatinine Clear Calc Drug Dose 76.8 ml/min Estimated GFR () 70.8 Estimated GFR (Non- 61.1 BUN/Creatinine Ratio 19.2 Random Glucose 129 mg/dl Calcium Level 8.9 mg/dl Test 10/25/17 11:04 Bedside Glucose 155 mg/dl (Luis Rae ., SCOTT) Diagnostic Results * -- Conclusions -- * Dobutamine Stress Echo: * 1. No ischemic changes noted on dobutamine stress echo imaging at 89 % MPHR. * 2. Negative Dobutamine ECG for ischemia at 89 % MPHR. * 3. Appropriate blood pressure response. * 4. No arrhythmia. * 5. Patient experienced chest tightness with radiation to the left neck/ throat with associated shortness of breath. She then developed burning chest discomfort. Chest discomfort resolved 7 minutes into recovery. * 6. Technically difficult study, enhanced with IV Definity. (Luis Rae, SCOTT) Assessment and Plan 62 year old female who presents with left sided chest pain on exertion and shortness of breath 1. Acute on chronic respiratory failure with hypoxia - mild, likely related to pulmonary edema - no evidence of pneumonia on CXR or exam to suggest need for antibiotics. - had hypoxic event over night - have to wonder if STEWART/OHS not playing major role. - is already scheduled for outpatient sleep study - VQ from 09/20/17 low prob PE 2. Left sided chest pain and shortness of breath - EKG with no acute ST changes - Trops negative - Dobutamine stress negative today, but now with ongoing chest pain since procedure 3. Pulmonary edema on CXR- unclear etiology - I&Os, daily weight - wt down 2.2 kg since admission - change lasix to PO 4. Hypertensive urgency - blood pressure stable - likely related to recent use of phenylephrine - continue lisinopril 5. Type 2 diabetes mellitus - cont lantus 50 units BID and SSI - HbA1C (09/18/17) 11.0 6. Thyroid cancer s/p thyroidectomy - continue levothyroxine, TSH 2.8 7. ELS - will discuss ongoing chest pain with cardiology. Possible D/C tomorrow Continued [facility] stay due to: other (ongoing chest pain) Discharge planning: home (Luis Rae ., SCOTT) SCOTT Physician Supervision Note: I interviewed and examined the patient. Discussed with Luis CHAVEZ and agree with findings and plan as documented in the note. Any exceptions or clarifications are listed here: None This pt is about the same still exertional dyspnea and chest pain despite "negative stress" she does give a history of this occurring after a plane flight with associated fluid retention. we pursued a CTA despite dye allergy given possibility of PE and it is negative, did discuss with cardiology regarding possibility of heart cath and will re visit in am vitals are stable, lungs clear cardiac is regular Exertional dyspnea and chest pain relieved by oxygen negative CTA concern for false negative stress test will discuss with cardiology about pursuing cardiac catheterization given this patient is fairly reliably reproducible symptoms patient was pretreated for her contrast dye allergy and will watch her for hypoglycemia induced by steroids this evening Documented By: Isaias Johnson (Isaias Johnson M.D.)
[2017-10-25] MEDS: POTASSIUM CHLORIDE 10 MEQ TABCR PO SCH ×2 (16:14→20:43)
[2017-10-25] MEDS ORDERED: LORAZEPAM 0.5 MG TAB PO PRN (16:30)
[2017-10-25] MEDS ORDERED: DiphenhydrAMINE HCL 50 MG/ML VIAL IV ONE (16:30)
[2017-10-25] MEDS ORDERED: METHYLPREDNISOLONE IV 40 MG in SYRINGE 0 ML IV ONE (16:45)
[2017-10-25] MEDS ORDERED: FUROSEMIDE 40 MG TAB PO SCH (17:00)
--- NOTE | 2017-10-25 18:43 | DIAGNOSTIC IMAGING REPORT ---
(CHEST FOR PE) ANGIO WITH CLINICAL HISTORY: 62 years-old Female presenting with ^hypoxia, chest pain, recent travel ^cp, sob, edema after flying, needs pretreated 1 hour prior. TECHNIQUE: Multidetector CT angiography of the chest was performed after administration of intravenous contrast. 3-D volumetric and/or maximum intensity projection (MIP) images were subsequently reconstructed for review. IV contrast: 82 mL of Optiray 320. A dose lowering technique was used consistent with the principles of ALARA (as low as reasonably achievable). COMPARISON: Chest x-ray from 10/23/2017 and VQ scan from 09/20/2017. CT DOSE (mGy.cm): The estimated cumulative dose is 696.22 mGy.cm. FINDINGS: Dental Office Assistant topogram: Unremarkable. Pulmonary vasculature: The study is suboptimal for the assessment of the pulmonary vascular tree secondary to timing of the contrast bolus and respiratory motion artifact. Allowing for limited image quality, no central filling defect to suggest pulmonary embolus. Main pulmonary artery is not enlarged. No flattening of the interventricular septum. No intracardiac filling defect. No reflux of contrast into the hepatic veins. Remaining chest: On soft tissue windows, multinodular left lobe of the thyroid. Right lobe thyroid not visualized. Multiple pathologically enlarged lymph nodes in the pretracheal, right paratracheal, prevascular, and subcarinal regions. An index node in the pretracheal/right paratracheal region measures 16 mm in the short axis. Small lymph nodes in the oliverio noted as well. Normal aorta. Normal heart size. Coronary artery calcification. No pericardial or pleural effusion. Hepatomegaly and hepatic steatosis suggested. On lung windows, extensive mosaic attenuation could suggest small airways disease. Extensive respiratory artifact degrades evaluation of lung parenchyma. Allowing for this, no focal infiltrate or nodule. No evidence of interlobular septal thickening. Mild bronchial wall thickening. Central airways patent. On bone windows, normal osseous structures. IMPRESSION: 1. Allowing for suboptimal image quality, no evidence of pulmonary embolus. 2. Extensive mosaic attenuation and bronchial wall thickening suggests small airways disease. 3. Mediastinal lymphadenopathy. This is nonspecific. This can be seen in benign conditions such as reactive lymphadenopathy or sarcoidosis as well as malignancy from lymphoproliferative disease or metastasis. Correlate for a history of underlying malignancy. This should be followed to resolution. 4. Multinodular left lobe of the thyroid with possible surgical absence of the right lobe. Electronically signed by: Shaheen Costa M.D. 10/25/2017 6:42 PM Dictated Date/Time: 10/25/2017 6:37 PM
[2017-10-25] MEDS ORDERED: OPTIRAY 320 IV PRN (18:45)
[2017-10-26 00:02] VITALS: BP 138/73; PULSE 99; TEMP 37.1; O2SAT 95
[2017-10-26 03:50] VITALS: BP 141/87; PULSE 91; TEMP 36.4; O2SAT 92
[2017-10-26] MEDS ORDERED: NovoLIN-R INSULIN PER UNIT CHARGE SC SCH (04:15)
[2017-10-26] MEDS: DOCUSATE SODIUM 100 MG CAP PO PRN (05:48)
[2017-10-26] MEDS: LEVOTHYROXINE 100 MCG TAB PO SCH (05:48)
[2017-10-26 07:05] LABS: CALCIUM 9.2 mg/dl (8.5-10.1); CREATININE 1.46 mg/dl (0.60-1.20); POTASSIUM 4.2 mmol/L (3.5-5.1)
[2017-10-26 07:31] VITALS: BP 145/75; PULSE 97; TEMP 36.7; O2SAT 95
[2017-10-26] MEDS: FLUTICASONE PROPIONATE NA SPR 16 GM BTL NAE SCH (08:28)
[2017-10-26] MEDS: ASPIRIN 81 MG ECTAB PO SCH (08:28)
[2017-10-26] MEDS: LISINOPRIL 20 MG TAB PO SCH (08:29)
[2017-10-26] MEDS: INSULIN DETEMIR FLEXPEN/FLEX TOUCH 100 UNITS/ML 3ML SC SCH (08:32)
[2017-10-26] MEDS: INSULIN ASPART 100 UNITS/ML 3 ML PEN SC SCH ×2 (08:32→12:01)
--- NOTE | 2017-10-26 09:16 | Cardiology Follow-Up ---
Subjective Date of Service: Oct 26, 2017. Pt evaluation today including: conversation w/ patient, physical exam, lab review, review of studies, review of inpatient medication list, conversation w/ attending History of Present Illness This is a 62-year-old woman who was recently evaluated in August 2017 when she had a fever somewhere around 1 week before presentation, she subsequently developed a cough and productive brown sputum. She also developed shortness of breath, she was initially treated with nebulizers but became much more short of breath. She then developed chest discomfort and palpitations as well as worsening peripheral edema on top of her chronic lymphedema and came into the emergency room on September 17, 2017. There she was found to be hypoxic (84% oxygen saturation on room air), tachycardic at 103 bpm and hypertensive with a blood pressure reported at 193/55. Additionally her chest x-ray suggested pulmonary edema. Her initial troponin was 0.183, subsequently they dropped ( 0.151 and then 0.085). Her BNP was normal, her echocardiogram also was normal. She has risk factors for coronary disease but no documented coronary disease and no prior symptoms. To me she described taking her nebulizer treatment and having a racing heartbeat associated with chest, neck and mid scapular pain and shortness of breath. She also described shortness of breath with minimal exertion associated with chest heaviness before she came to the hospital at that time. Then she was walking around the hallway and developed sudden onset of symptoms of shortness of breath, her heart pounding as well as substernal and mid scapular chest pain. She went back to the room, the shortness of breath is improved as was the heart pounding but she still had the discomfort. This is reminiscent of what she described when she came into the emergency room. Enzymes and ECG were unchanged however. With her presentation of shortness of breath as well as elevated cardiac enzymes the possibility of obstructive coronary disease was entertained, however her findings were more consistent with demand ischemia although that could have occurred in the presence of coronary artery disease. We therefore planned stress testing, with her tenuous pulmonary status I did not want to do that in the hospital and she did not seem to have an acute event. That was planned for November 05, 2017. She has just returned from a trip to [place], on the flight back she had a lot of difficulty with shortness of breath and was unable to maintain a good blood oxygenation (apparently it was about 72% as she monitored it). She also had chest discomfort. She does not have chest discomfort and less her oxygen level is low, if she is active and her oxygen level is low (which is accompanied by significant shortness of breath) then she will often have chest discomfort. She has not had none of that since she has been in the hospital. She never had chest discomfort until her prior hospitalization when she developed her respiratory difficulty. She has never had a coronary evaluation to my knowledge. She had a dobutamine stress test yesterday, the test was negative at a good heart rate however she developed chest burning and left-sided neck discomfort during the test which was similar to what she experienced at home prior to coming in. Today she feels well, she has been ambulating in the emmanuel and has not had shortness of breath or chest discomfort. She did have oxygen desaturation during the night during sleep. Social History Smoking Status: Never Smoker History of Alcohol Use: No Review of Systems Respiratory: + see HPI, No cough, No sputum, No wheezing, No shortness of breath, No dyspnea on exertion, No dyspnea at rest, No hemoptysis, No problem reported Cardiac: + see HPI, + edema (feels swelling in legs and hands is improving), No chest pain, No orthopnea, No PND, No claudication, No palpitations, No problem reported Medications Cardiovascular: Item Value Date Time Aspirin 81 mg 10/24/17 0900 (Ecotrin Tab) DAILY/PO 10/26/17 0828 Lisinopril 20 mg 10/24/17 0900 (Zestril Tab) DAILY/PO 10/26/17 0829 Objective Vital Signs Past 12 Hours Date Time Temp Pulse Resp B/P (MAP) Pulse Ox O2 Delivery O2 Flow Rate FiO2 10/26/17 07:31 36.7 97 18 145/75 (98) 95 10/26/17 04:00 Room Air 10/26/17 03:50 36.4 91 18 141/87 (105) 92 10/26/17 00:02 37.1 99 18 138/73 (94) 95 2.0 10/25/17 23:59 Room Air Last Recorded Weight-Kilograms: 133.400 Physical Exam Constitutional: General Apperance: heathly-appearing Level of Distress: NAD Lungs: Respiratory effort: no dyspnea, good air movement Auscultation: breath sounds normal, no wheezing Cardiovascular: Heart Auscultation: RRR, no murmurs, no rubs, no gallops Peripheral Pulses: Bruits: none appreciated Extremities: no edema Data Laboratory Results: Last 24 Hours Test 10/25/17 11:04 10/25/17 16:59 10/25/17 19:17 10/25/17 20:26 Bedside Glucose 155 mg/dl 209 mg/dl 133 mg/dl 171 mg/dl Test 10/26/17 03:43 10/26/17 05:54 10/26/17 06:11 10/26/17 06:36 Bedside Glucose 325 mg/dl 321 mg/dl 318 mg/dl Sodium Level 134 mmol/L Potassium Level 4.2 mmol/L Chloride Level 99 mmol/L Carbon Dioxide Level 26 mmol/L Anion Gap 9.0 mmol/L Blood Urea Nitrogen 25 mg/dl Creatinine 1.46 mg/dl Est Creatinine Clear Calc Drug Dose 51.7 ml/min Estimated GFR () 44.3 Estimated GFR (Non- 38.2 BUN/Creatinine Ratio 17.3 Random Glucose 313 mg/dl Calcium Level 9.2 mg/dl Beta-Hydroxybutyric Acid 6.80 mg/dL Imaging: Chest CT shows some small airway disease, no PE Telemetry reviewed: Sinus rhythm throughout Stress echo: This was negative for ischemia yesterday at 89% of her predicted maximal heart rate, she had no electrocardiographic or echocardiographic changes. She did however develop chest and neck discomfort. Assessment and Plan 1. Chest discomfort: It is still uncertain what is causing her chest discomfort. This admission she has had no enzyme abnormalities, no electrocardiographic abnormalities and she has had no chest discomfort during the hospitalization except during the stress test. Based on her history, which seems reliable, she gets the chest discomfort when she is hypoxic and exercising. This could be consistent with underlying coronary artery disease which causes symptoms only under extreme stress such as hypoxia and activity. I think it could also be caused by normal coronary arteries and demand ischemia as well. I would suggest sending her home since she feels well now, if she continues to have exertional chest discomfort I think we should do heart catheterization, if she does not I would not do a catheterization. 2. Hypoxia: I do not know the cause of her hypoxia, I do not think it is primarily congestive heart failure. She has been diuresed somewhat and she is now prerenal (although she did get dye yesterday). She had normal left ventricular size and function at echocardiography. It does not seem likely that her hypoxia is due to heart failure, nocturnal hypoxia could be due to hypoventilation. She may still have some underlying lung pathology as well. This appears to be improving, at least the exercise component. I will arrange follow-up in the office in several weeks, meanwhile I told her that if the symptoms become more severe (especially if they occur at rest or with minimal activity) that she should come to the ER or let us know. Thank you for allowing me to participate in her care.
[2017-10-26 12:00] VITALS: BP 136/69; PULSE 93; TEMP 36.9; O2SAT 93
[2017-10-26 12:34] LABS: CALCIUM 9.5 mg/dl (8.5-10.1); CREATININE 1.29 mg/dl (0.60-1.20); POTASSIUM 3.8 mmol/L (3.5-5.1)
[2017-10-26] MEDS ORDERED: OXGN (12:58)
[2017-10-26 13:10] VITALS: Ht 154.9 cm; Wt 133.4 kg
[2017-10-26 13:30] VITALS: BP 136/69; PULSE 93; TEMP 36.9; O2SAT 93
--- NOTE | 2017-10-26 13:46 | Discharge Instructions ---
Discharge Instructions Date of Service Oct 26, 2017. Admission Reason for Admission: Acute Respiratory Failure With Hypoxia, Pulmonary Discharge Discharge Diagnosis / Problem: angina with hypoxia and pulmonary edema Discharge Goals Goal(s): Improve function Activity Recommendations Activity Limitations: resume your previous activity if developed chest pain or shortness of breath, then call PCP or return to the emergency department . Instructions / Follow-Up Instructions / Follow-Up If your chest pain returns, then call your PCP or return to the emergency department. Call cardiology clinic as well and they will arrange for a Heart Catheterization. Need to have sleep study rescheduled. We will try to get the study scheduled as soon as possible. Current Hospital Diet Patient's current hospital diet: AHA Diet (Heart Healthy), Low Sodium Diet (2gm Na), Diabetes Type 2 Diet Discharge Diet Recommended Diet: AHA Diet (Heart Healthy), Low Sodium Diet (2gm Na), Diabetes Type 2 Diet Pending Studies Studies pending at discharge: no Laboratory Results Hemoglobin A1c Test 09/18/17 07:09 Range/Units Estimated Average Glucose 269 mg/dl Hemoglobin A1c 11.0 H 4.5-5.6 % Lipid Panel Test 10/24/17 06:38 Range/Units Triglycerides Level 380 H 0-150 mg/dl Cholesterol Level 210 H 0-200 mg/dl HDL Cholesterol 33 mg/dl Cholesterol/HDL Ratio 6.4 LDL Cholesterol, Calculated 101 mg/dl Medical Emergencies . Who to Call and When: Medical Emergencies: If at any time you feel your situation is an emergency, please call 911 immediately. . Non-Emergent Contact Non-Emergency issues call your: Primary Care Provider Call Non-Emergent contact if: temperature is above 101 chest pain returns or shortness of breath worsens . . "Provider Documentation" section prepared by Luis Rae. .
--- NOTE | 2017-10-26 13:51 | Discharge Summary ---
Discharge Summary Date of Service Oct 26, 2017. Discharge Summary Admission Date: Oct 23, 2017 at 19:11 Discharge Date: Oct 26, 2017 Discharge Disposition: Home Principal Diagnosis: Angina, Acute on chronic respiratory failure Problems/Secondary Diagnoses: possible sleep apnea Immunizations: Have You Had Influenza Vaccine: Yes History of Tetanus Vaccine?: Unknown History of Pneumococcal: Yes History of Hepatitis B Vaccine: Unknown Procedures: CLINICAL HISTORY: 62 years-old Female presenting with ^hypoxia, chest pain, recent travel ^cp, sob, edema after flying, needs pretreated 1 hour prior. TECHNIQUE: Multidetector CT angiography of the chest was performed after administration of intravenous contrast. 3-D volumetric and/or maximum intensity projection (MIP) images were subsequently reconstructed for review. IV contrast: 82 mL of Optiray 320. A dose lowering technique was used consistent with the principles of ALARA (as low as reasonably achievable). COMPARISON: Chest x-ray from 10/23/2017 and VQ scan from 09/20/2017. CT DOSE (mGy.cm): The estimated cumulative dose is 696.22 mGy.cm. FINDINGS: Offset Press Operator Apprentice topogram: Unremarkable. Pulmonary vasculature: The study is suboptimal for the assessment of the pulmonary vascular tree secondary to timing of the contrast bolus and respiratory motion artifact. Allowing for limited image quality, no central filling defect to suggest pulmonary embolus. Main pulmonary artery is not enlarged. No flattening of the interventricular septum. No intracardiac filling defect. No reflux of contrast into the hepatic veins. Remaining chest: On soft tissue windows, multinodular left lobe of the thyroid. Right lobe thyroid not visualized. Multiple pathologically enlarged lymph nodes in the pretracheal, right paratracheal, prevascular, and subcarinal regions. An index node in the pretracheal/right paratracheal region measures 16 mm in the short axis. Small lymph nodes in the oliverio noted as well. Normal aorta. Normal heart size. Coronary artery calcification. No pericardial or pleural effusion. Hepatomegaly and hepatic steatosis suggested. On lung windows, extensive mosaic attenuation could suggest small airways disease. Extensive respiratory artifact degrades evaluation of lung parenchyma. Allowing for this, no focal infiltrate or nodule. No evidence of interlobular septal thickening. Mild bronchial wall thickening. Central airways patent. On bone windows, normal osseous structures. IMPRESSION: 1. Allowing for suboptimal image quality, no evidence of pulmonary embolus. 2. Extensive mosaic attenuation and bronchial wall thickening suggests small airways disease. 3. Mediastinal lymphadenopathy. This is nonspecific. This can be seen in benign conditions such as reactive lymphadenopathy or sarcoidosis as well as malignancy from lymphoproliferative disease or metastasis. Correlate for a history of underlying malignancy. This should be followed to resolution. 4. Multinodular left lobe of the thyroid with possible surgical absence of the right lobe. Medication Reconciliation New Medications: Home O2 Therapy (Oxygen) Gas 2 LITERS NA HS, #1 BTL overnight desaturation - O2 at 2L via N/C . wear with all hours of sleep Continued Medications: Aspirin (Aspirin Ec) 81 Mg Tab 81 MG PO DAILY Fluticasone Propionate (Fluticasone Propionate) 120 Sprays/6000 Mcg Inha 2 SPRAYS XOCHITL DAILY Furosemide (Furosemide) 20 Mg Tab 20 MG PO QAM Insulin Aspart (Novolog) 100 Units/Ml Inj 40 UNITS SC QAM ADJUST NEEDED PER SLIDING SCALE Insulin Aspart (Novolog) 100 Units/Ml Inj 1 DOSE SC UD COVERAGE DIRECTED BY SLIDING SCALE WITH LUNCH AND EVENING MEALS Insulin Detemir (Levemir) 100 Units/Ml Inj 50 UNITS SC BID Levalbuterol (Levalbuterol HCl) 0.63 Mg/3 Ml Nebu 0.63 MG NEB Q6H PRN for SOB/Wheezing Levalbuterol Tartrate (Levalbuterol Tartrate Hfa) 45 Mcg/Act Aer 2 PUFFS INH QID PRN for SOB/Wheezing Levothyroxine Sodium (Levothyroxine Sodium) 100 Mcg Tab 100 MCG PO QAM Lisinopril (Zestril) 20 Mg Tab 20 MG PO DAILY, TAB Discharge Exam Review of Systems: Constitutional: No fever, No chills, No sweats, No weight loss, No weakness , No fatigue, No problem reported Eyes: No worsening of vision, No eye pain, No redness, No discharge, No diplopia, No problem reported ENT: No hearing loss, No unusual epistaxis, No nasal symptoms, No sore throat, No tinnitus, No dental problems, No trouble swallowing, No problem reported Respiratory: + cough, + shortness of breath Cardiovascular: No chest pain, No orthopnea, No PND, No edema, No claudication, No palpitations, No problem reported Abdomen: No pain, No nausea, No vomiting, No diarrhea, No constipation, No GI bleeding, No problem reported Musculoskeletal: No joint pain, No muscle pain, No swelling, No calf pain, No problem reported Neurologic: No memory loss, No paralysis, No weakness, No numbness/tingling , No vertigo, No balance problems, No problem reported Psychiatric: No depression symptoms, No anhedonism, No anxiety, No insomnia , No substance abuse, No problem reported Endocrine: No fatigue, No excessive thirst, No excessive urination, No problem reported Physical Exam: General Appearance: WD/WN, no apparent distress Eyes: normal inspection, sclerae normal ENT: hearing grossly normal Neck: supple, thyroid normal Respiratory/Chest: chest non-tender, lungs clear, normal breath sounds Cardiovascular: regular rate, rhythm, no edema, no gallop, no murmur Abdomen / GI: normal bowel sounds, non tender, soft Extremities: no calf tenderness, + pedal edema (trace) Neurologic/Psychiatric: alert, normal mood/affect, oriented x 3 Skin: normal color, warm/dry Hospital Course 62 year old female who presents with left sided chest pain on exertion and shortness of breath 1. Acute on chronic respiratory failure with hypoxia - mild, likely related to pulmonary edema (still no clear cut etiology for the edema) - no evidence of pneumonia on CXR or exam to suggest need for antibiotics. - had hypoxic event over night for two nights in a row- have to wonder if STEWART/ OHS not playing major role. - reschedule outpatient sleep study - VQ from 09/20/17 low prob PE, ordered CTA last evening. CTA no evidence of PE 2. Left sided chest pain/shortness of breath/angina - EKG with no acute ST changes - Trops negative - Dobutamine stress negative, chest pain after stress test resolved. - has been ambulating in the halls with no chest pain - spoke with cardiology - they will follow closely as outpatient. If anginal type pain returns, then they will consider heart catheterization 3. Pulmonary edema on CXR- unclear etiology - I&Os, daily weight - wt down 4 kg since admission 4. Hypertensive urgency - blood pressure stable - likely related to recent use of phenylephrine - continue lisinopril 5. Type 2 diabetes mellitus - cont lantus 50 units BID and SSI - HbA1C (09/18/17) 11.0 6. Thyroid cancer s/p thyroidectomy - continue levothyroxine, TSH 2.8 7. Mild bump in creatinine to 1.48 likely secondary to diuresis and contrast dye. - repeat creatinine 1.28, resume lasix tomorrow 8. 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 Discussed with Luis CHAVEZ and agree with findings and plan as documented in the note. Any exceptions or clarifications are listed here: None This pt is improved with a "negative stress" and a negative CTA despite dye allergy cardiology does not feel she will need a heart cath but will follow up as an outpt vitals are stable, lungs clear cardiac is regular this maybe the remants for some pulmonary congestion, will have close outpt follow up and use oxygen until resolved Documented By: Isaias Johnson Total Time Spent: Greater than 30 minutes This includes examination of the patient, discharge planning, medication reconciliation, and communication with other providers. Discharge Instructions Please refer to the electronic Patient Visit Report (Discharge Instructions) for additional information. Follow-Up cardiology 1 to 2 weeks pcp next week
== END 2017-10-26 15:10 | disposition home or self-care (01) | DRG 205 ==
LOC: C.EDB 14:41 → C.2T 19:11 → ENRESERV 19:35
PROVIDERS: ADMIT Hospitalist; ATTEND Hospitalist
DX: E66.2 Morbid (severe) obesity with alveolar hypoventilation (principal); J96.21 Acute and chronic respiratory failure with hypoxia; J81.1 Chronic pulmonary edema; Z68.43 Body mass index [BMI] 50.0-59.9, adult; I20.9 Angina pectoris, unspecified; I16.0 Hypertensive urgency; T44.4X5A Adverse effect of predominantly alpha-adrenoreceptor agonists, initial encounter; E11.9 Type 2 diabetes mellitus without complications; I50.9 Heart failure, unspecified; E89.0 Postprocedural hypothyroidism; Z79.899 Other long term (current) drug therapy; Z79.4 Long term (current) use of insulin; Z79.82 Long term (current) use of aspirin; Z85.850 Personal history of malignant neoplasm of thyroid; Z77.22 Contact with and (suspected) exposure to environmental tobacco smoke (acute) (chronic); Z88.8 Allergy status to other drugs, medicaments and biological substances; Z91.013 Allergy to seafood; Z91.041 Radiographic dye allergy status; Z83.3 Family history of diabetes mellitus; Z80.8 Family history of malignant neoplasm of other organs or systems

== ENCOUNTER → 2017-11-14 | Outpatient (CLI) | payer OTHER ==
[~2017-11-14] MED LIST changes: -ASPI-435 PO; +ASPI81TA28 PO; -DXY100 PO; +FLNIN/ NAE; -LEVO100T PO; +LEVO100T7 PO; +LISI-725 PO; +LSX20 PO; -LVMI SQ; +NVLG SC; -NVLG SQ; +OXGN; -PRED10TA PO; -XPNINS INH; +XPNINS NEB
--- NOTE | 2017-11-15 05:43 | PAP/PSG TECHNICIAN REPORT ---
[facility] Head Girls Golf Coach Polysomnogram Report Study name: None Report date: 11/15/2017 Study date: 11/14/2017 Referring Physician: Melissa Bustamante PA-C, PA-C Name: GREY MOLINA Interpreting Physician: Zak Ruiz D.O. Date of : 1955 Head Girls Golf Coach: Kamini Martinez [facility]. Sex: Female Age: 62 StudyType: PSG Weight: 296 lbs Height: 62 years, Height 5' 2" Neck Circum: 17.5 inches BMI: 54.13 Medications: Aspirin 81 mg, Levoxyl 100 MCG, Levemir 100 Unit/ML. Novolog, Furosemide, Levalbuterol 0.63MG/3ML, Lisinopril 20 mg Patient History 62 yr. old female here for a diagnostic sleep study. Patient had a recent hospitilization for acute hypoxic respiratory failure/bronchitis. She uses suppliemtnal oxygen at night Patient has a history of thyroid cancer, Diabetes, cellulitis, GERD and lymphedma, Patient sleeps elevated in a recliner at home. Test started on room air in room 5 with [id number] Parameters Monitored NPSG: E1-M2, E2-M1, Fp1-M2, Fp2-M1, F3-M2, F4-M2, F4-M1, C3-M2, C4-M2, C4-M1, O1-M2, O2-M2, O2-M1, T3-M2, T4-M1, P3-M2, P4-M1, CHIN1, CHIN2, HR, EKG, Legs, PFLOW, SNOR, FLOW, CFLOW, Tidal Volume, THOR, ABDO, SpO2, PLTH, CPRESS, ETCO2 Wave, ETCO2, pH Sleep Architecture Sleep Stages Time at Lights Off 10:23:18 PM STAGES Time (min.) TST (%) Time at Lights On 5:30:18 AM Wake 144.0 -- Total Recording Time (TRT) 427.00 min. N1 21.5 8 Total Sleep Period (TSP) 412.5 min. N2 107.5 38 Total Sleep Time (TST) 282.5min. N3 97.0 34 Awake Time 144.0 min. REM 56.5 20 Wake after Sleep Onset 130.0 min. Sleep Efficiency (SE) 66 % Sleep Onset Latency (GLORY) 14.5 min. Number of Stage 1 Shifts None Awakenings 17 Stage Changes 80 Number of REM periods 4 REM 56.5 20 REM Latency 76.5 min. NREM 226.0 80 Body Position Analysis Supine Right Left Side Prone Vertical Total Sleep Time (min.) 0.0 0.0 0.0 0.00 0.0 426.1 Total Sleep Time (%) 0% 0% 0% 0 0% 100% Total Sleep Time REM (min.) 0.0 0.0 0.0 None 0.0 56.5 Total Sleep Time NREM (min.) 0.0 0.0 0.0 None 0.0 225.6 Intermittent Wake (min.) 0.0 0.0 0.0 None 0.0 144.0 Total Sleep Period (%) 0% None None None None None Arousals Myoclonus (PLM) * Events Count Index Events Count Index Spontaneous 8 2 Events Awake (PLMW) 133 55.4 Respiratory 16 3.2 Events Asleep w/ Arousal (PLMA) 18 3.8 PLM 18 4 Events Asleep w/o Arousal (PLMS) 31 6.6 Snoring 6 1 Total Asleep 49 10.4 Total 48 10 Total 182 26 Respiratory Analysis * CA OA MA CH H RERA Total Count 0 0 0 0 79 0 79 Index 0.0 0.0 0.0 0 16.8 0 16.8 Mean Duration 0.0 0.0 0.0 0.00 22.8 0.0 22.8 Longest Duration 0.0 0.0 0.0 0.00 0.0 0.0 98.0 Respiratory Event Summary Total Supine ~Supine Right Left Prone REM NREM Apneas Count 0 N/A 0 N/A N/A N/A 0 0 Index 0.0 N/A 0 N/A N/A N/A 0 0 Hypopneas (4% Desat) Count 79 N/A 79 N/A N/A N/A 38 41 Index 16.8 N/A 17 N/A N/A N/A 40.4 10.9 Apneas & All Hypopneas Count 79 N/A 79 N/A N/A N/A 38 41 Index 16.8 N/A 17 N/A N/A N/A 40.4 10.9 Respiratory Events (Utility Worker+All Hyp+RERA) Count 79 N/A 79 N/A N/A N/A 38 41 Index 16.8 N/A 17 N/A N/A N/A 40.4 10.9 Respiratory Related Arousal Count 16 N/A 15 N/A N/A N/A 4 11 Index 3.2 N/A 3 N/A N/A N/A 4 3 Snoring Analysis Supine Right Left Prone REM NREM Total Snore duration 1.8 min Snores count N/A N/A N/A N/A 3 36 39 Snore mean duration 2.8 Sec Snores index N/A N/A N/A N/A 3.2 9.6 8.3 TST with snoring (%) 0.7% SpO2 Analysis Total REM NREM Awake <50% 0.0 min. 0.0 min. 0.0 min. 0.0 min. 51 - 60% 0.0 min. 0.0 min. 0.0 min. 0.0 min. 61 - 70% 0.0 min. 0.0 min. 0.0 min. 0.0 min. 71 - 80% 30.0 min. 28.6 min. 1.4 min. 0.0 min. 81 - 90% 288.3 min. 27.9 min. 214.4 min. 46.0 min. 91 - 100% 100.3 min. 0.0 min. 9.8 min. 90.5 min. Average 87 81 86 92 Minimum SpO2 71 71 76 83 Desaturation Event Index 17.0 43.5 15.1 10.8 # Desat. Events below 89% 116 41 56 19 Time(%) with Saturation below 89% 64.6 13.4 46.8 4.4 Time(min.) with Saturation below 89% 270.4 56.1 195.9 18.4 Heart Rate Analysis End Tidal CO2 Analysis Min (bpm) Max (bpm) Average (bpm) TSP (mins) % of TSP Awake 72 102 81 Above 55 mmHg 0.0 0.0 NREM 79 100 89 50-55 mmHg 0.0 0.0 REM 87 101 95 45-50 mmHg 40.9 14.5 Overall 79 101 90 40-45 mmHg 190.6 67.5 35-40 mmHg 34.6 12.2 30-35 mmHg 2.7 1.0 Average ETCO2 0.0 Supplemental O2 Values Minimum O2 level: None Value Start Time End Time Head Girls Golf Coach Comments Mrs. Molina qualified for a split night sleep study at 12:53 am. Her AHI was > 20 and had low oxygen. She could not tolerate CPAP or BIPAP with either a nasal or full-face interface. She stated she felt as though she was suffocating and also felt claustrophobic. Test resumed as a diagnostic sleep study. Mrs. Molina slept in the upright positions. Cardiac arrhythmia (occasional PVC) noted. No PLMs noted. No bruxism noted. Snoring was noted and scored as a 0 on a scale of 0 through 5. (0=no snoring, 5=snoring loud enough to be heard through a closed door or down the [address] way) Mrs. Molina awoke to use the restroom once during the night. Mrs. Molina stated, I did not sleep as well as I do when I am at home. The final report will be interpreted and signed by a sleep physician. The completed physician report will then be placed in the patient medical record. Therapy (cm H2O) 0 TIB (min.) 426.5 TST (min.) 282.5 Sleep Onset (min.) 14.5 REM Onset From Sleep (min.) 76.5 Sleep Efficiency % 66 Wakefulness (%) 34 Wakefulness (min.) 144.0 NREM 1 (%) 8 NREM 1 (min.) 21.5 NREM 2 (%) 38 NREM 2 (min.) 107.5 NREM 3 (%) 34 NREM 3 (min.) 97.0 REM (%) 20 REM (min.) 56.5 # Arousals 48 Arousal Index 10 # Snore 39 Snore Index 8.3 AHI 16.8 AHI Supine N/A AHI Non-Supine 17 NREM AHI 10.9 REM AHI 40.4 RDI 16.8 # Obstructive Apnea 0 # Central Apnea 0 # Mixed Apnea 0 # Hypopneas 79 RERAs 0 Total Respiratory Events 83 Time Below SpO2 89% (min.) 252.0 Mean NREM SpO2 (%) 86 Mean REM SpO2 (%) 81 Mean Sleep SpO2 (%) 85 Min NREM SpO2 (%) 76 Min REM SpO2 (%) 71 Position Supine (min.) 0.0 Position Non-supine (min.) 282.1 LM Index Sleep 10.4 LM Index NREM 9.3 LM Index REM 14.9 Mean Heart Rate (bpm) 90 Min Heart Rate (bpm) 79
--- NOTE | 2017-11-15 05:51 | PAP/PSG TECHNICIAN REPORT ---
[facility] Zone Manager Polysomnogram Report Study name: None Report date: 11/15/2017 Study date: 11/14/2017 Referring Physician: Melissa Bustamante PA-C, PA-C Name: GREY MOLINA Interpreting Physician: Zak Ruiz D.O. Date of : 1955 Zone Manager: Kamini [facility]. Sex: Female Age: 62 StudyType: PSG Weight: 296 lbs Height: 62 years, Height 5' 2" Neck Circum: 16.75 inches BMI: 54.13 Medications: Aspirin 81 mg, Levoxyl 100 MCG, Levemir 100 Unit/ML. Novolog, Furosemide, Levalbuterol 0.63MG/3ML, Lisinopril 20 mg Patient History 62 yr. old female here for a diagnostic sleep study. Patient had a recent hospitalization for acute hypoxic respiratory failure/bronchitis. Per patients she uses supplemental oxygen at night Patient has a history of thyroid cancer, Diabetes, cellulitis, GERD and lymphedema, Patient sleeps elevated in a recliner at home. Test started on room air in room 5 Parameters Monitored NPSG: E1-M2, E2-M1, Fp1-M2, Fp2-M1, F3-M2, F4-M2, F4-M1, C3-M2, C4-M2, C4-M1, O1-M2, O2-M2, O2-M1, T3-M2, T4-M1, P3-M2, P4-M1, CHIN1, CHIN2, HR, EKG, Legs, PFLOW, SNOR, FLOW, CFLOW, Tidal Volume, THOR, ABDO, SpO2, PLTH, CPRESS, ETCO2 Wave, ETCO2, pH Sleep Architecture Sleep Stages Time at Lights Off 10:23:18 PM STAGES Time (min.) TST (%) Time at Lights On 5:30:18 AM Wake 144.0 -- Total Recording Time (TRT) 427.00 min. N1 21.5 8 Total Sleep Period (TSP) 412.5 min. N2 107.5 38 Total Sleep Time (TST) 282.5min. N3 97.0 34 Awake Time 144.0 min. REM 56.5 20 Wake after Sleep Onset 130.0 min. Sleep Efficiency (SE) 66 % Sleep Onset Latency (GLORY) 14.5 min. Number of Stage 1 Shifts None Awakenings 17 Stage Changes 80 Number of REM periods 4 REM 56.5 20 REM Latency 76.5 min. NREM 226.0 80 Body Position Analysis Supine Right Left Side Prone Vertical Total Sleep Time (min.) 0.0 0.0 0.0 0.00 0.0 426.1 Total Sleep Time (%) 0% 0% 0% 0 0% 100% Total Sleep Time REM (min.) 0.0 0.0 0.0 None 0.0 56.5 Total Sleep Time NREM (min.) 0.0 0.0 0.0 None 0.0 225.6 Intermittent Wake (min.) 0.0 0.0 0.0 None 0.0 144.0 Total Sleep Period (%) 0% None None None None None Arousals Myoclonus (PLM) * Events Count Index Events Count Index Spontaneous 8 2 Events Awake (PLMW) 133 55.4 Respiratory 16 3.2 Events Asleep w/ Arousal (PLMA) 18 3.8 PLM 18 4 Events Asleep w/o Arousal (PLMS) 31 6.6 Snoring 6 1 Total Asleep 49 10.4 Total 48 10 Total 182 26 Respiratory Analysis * CA OA MA CH H RERA Total Count 0 0 0 0 79 0 79 Index 0.0 0.0 0.0 0 16.8 0 16.8 Mean Duration 0.0 0.0 0.0 0.00 22.8 0.0 22.8 Longest Duration 0.0 0.0 0.0 0.00 0.0 0.0 98.0 Respiratory Event Summary Total Supine ~Supine Right Left Prone REM NREM Apneas Count 0 N/A 0 N/A N/A N/A 0 0 Index 0.0 N/A 0 N/A N/A N/A 0 0 Hypopneas (4% Desat) Count 79 N/A 79 N/A N/A N/A 38 41 Index 16.8 N/A 17 N/A N/A N/A 40.4 10.9 Apneas & All Hypopneas Count 79 N/A 79 N/A N/A N/A 38 41 Index 16.8 N/A 17 N/A N/A N/A 40.4 10.9 Respiratory Events (Associate Professor Of English+All Hyp+RERA) Count 79 N/A 79 N/A N/A N/A 38 41 Index 16.8 N/A 17 N/A N/A N/A 40.4 10.9 Respiratory Related Arousal Count 16 N/A 15 N/A N/A N/A 4 11 Index 3.2 N/A 3 N/A N/A N/A 4 3 Snoring Analysis Supine Right Left Prone REM NREM Total Snore duration 1.8 min Snores count N/A N/A N/A N/A 3 36 39 Snore mean duration 2.8 Sec Snores index N/A N/A N/A N/A 3.2 9.6 8.3 TST with snoring (%) 0.7% SpO2 Analysis Total REM NREM Awake <50% 0.0 min. 0.0 min. 0.0 min. 0.0 min. 51 - 60% 0.0 min. 0.0 min. 0.0 min. 0.0 min. 61 - 70% 0.0 min. 0.0 min. 0.0 min. 0.0 min. 71 - 80% 30.0 min. 28.6 min. 1.4 min. 0.0 min. 81 - 90% 288.3 min. 27.9 min. 214.4 min. 46.0 min. 91 - 100% 100.3 min. 0.0 min. 9.8 min. 90.5 min. Average 87 81 86 92 Minimum SpO2 71 71 76 83 Desaturation Event Index 17.0 43.5 15.1 10.8 # Desat. Events below 89% 116 41 56 19 Time(%) with Saturation below 89% 64.6 13.4 46.8 4.4 Time(min.) with Saturation below 89% 270.4 56.1 195.9 18.4 Heart Rate Analysis End Tidal CO2 Analysis Min (bpm) Max (bpm) Average (bpm) TSP (mins) % of TSP Awake 72 102 81 Above 55 mmHg 0.0 0.0 NREM 79 100 89 50-55 mmHg 0.0 0.0 REM 87 101 95 45-50 mmHg 40.9 14.5 Overall 79 101 90 40-45 mmHg 190.6 67.5 35-40 mmHg 34.6 12.2 30-35 mmHg 2.7 1.0 Average ETCO2 0.0 Supplemental O2 Values Minimum O2 level: None Value Start Time End Time Zone Manager Comments Mrs. Molina qualified for a split night sleep study at 12:53 am. Her AHI was > 20 and had low oxygen. She could not tolerate CPAP or BIPAP with either a nasal or full-face interface. She stated she felt as though she was suffocating and also felt claustrophobic. Test resumed as a diagnostic sleep study. Mrs. Molina slept in the upright positions. Cardiac arrhythmia (occasional PVC) noted. No PLMs noted. No bruxism noted. Snoring was noted and scored as a 0 on a scale of 0 through 5. (0=no snoring, 5=snoring loud enough to be heard through a closed door or down the [address] way) Mrs. Molina awoke to use the restroom once during the night. Mrs. Molina stated, I did not sleep as well as I do when I am at home. The final report will be interpreted and signed by a sleep physician. The completed physician report will then be placed in the patient medical record. Therapy (cm H2O) 0 TIB (min.) 426.5 TST (min.) 282.5 Sleep Onset (min.) 14.5 REM Onset From Sleep (min.) 76.5 Sleep Efficiency % 66 Wakefulness (%) 34 Wakefulness (min.) 144.0 NREM 1 (%) 8 NREM 1 (min.) 21.5 NREM 2 (%) 38 NREM 2 (min.) 107.5 NREM 3 (%) 34 NREM 3 (min.) 97.0 REM (%) 20 REM (min.) 56.5 # Arousals 48 Arousal Index 10 # Snore 39 Snore Index 8.3 AHI 16.8 AHI Supine N/A AHI Non-Supine 17 NREM AHI 10.9 REM AHI 40.4 RDI 16.8 # Obstructive Apnea 0 # Central Apnea 0 # Mixed Apnea 0 # Hypopneas 79 RERAs 0 Total Respiratory Events 83 Time Below SpO2 89% (min.) 252.0 Mean NREM SpO2 (%) 86 Mean REM SpO2 (%) 81 Mean Sleep SpO2 (%) 85 Min NREM SpO2 (%) 76 Min REM SpO2 (%) 71 Position Supine (min.) 0.0 Position Non-supine (min.) 282.1 LM Index Sleep 10.4 LM Index NREM 9.3 LM Index REM 14.9 Mean Heart Rate (bpm) 90 Min Heart Rate (bpm) 79
--- NOTE | 2017-11-18 14:53 | POLYSOMNOGRAPH REPORT ---
CLINICAL DATA: The patient is a 62-year-old female who had a recent hospitalization with acute hypoxic respiratory failure. She wears nocturnal oxygen. She has a history of daytime fatigue. In light of the daytime fatigue, respiratory failure, hypoxia, and a history of obesity and diabetes, she is referred for a diagnostic in-lab sleep study. SLEEP ARCHITECTURE: The total sleep period was 412.5 minutes. The total sleep time was 282.5 minutes. The sleep efficiency is reduced to 66%. The sleep latency was 14.5 minutes. Wake after sleep onset was prolonged to 130 minutes. The REM latency was normal at 76.5 minutes. There were 2 REM periods during the night. Sleep consisted of stage N1 8%, stage N2 38%, stage N3 34%, stage REM 20%. AROUSAL DATA: The patient had a total of 48 arousals including 8 spontaneous arousals, 16 respiratory arousals, 18 PLM arousals, 6 snoring arousals. The arousal index was 10. PLM DATA: The patient had a total of 49 periodic limb movements of sleep for a PLM index of 10.4. There were 18 arousals, associated with limb movements for a PLM arousal index of 3.8. EKG: The underlying cardiac rhythm was normal sinus. The cardiac rates ranged from 79 to 101 beats per minute. The average heart rate was 90 beats per minute. There was a rare PVC noted. RESPIRATORY DATA: The patient had a total of 79 respiratory events, all hypopneas. Hypopneas were scored according to the 4% desaturation rule. The mean duration of the hypopneas was 22.8 seconds. The apnea hypopnea index was 16.8. This reflects moderate obstructive sleep apnea. OXIMETRY DATA: The average saturation for the night was 87%. The minimum saturation was 71%. There was a total of 270.4 minutes with saturations less than 89%. The most significant desaturations did occur at times of respiratory events. This also happened to be during REM sleep. PAIRER COMMENTS: Mrs. Molina qualifies for a split night sleep study at 12:53 a.m. She could not tolerate CPAP or BiPAP with either a nasal or full face mask. She stated she felt as though she was suffocating and causing her to breathe too fast. The test was ultimately resumed as a diagnostic sleep study. She slept in the upright position. Cardiac arrhythmia was noted, rare PVCs. No bruxism noted. Snoring was noted. The patient awakened to use the restroom one time during the night. After the study, she stated she did not sleep as well as she does at home. IMPRESSION: Moderate obstructive sleep apnea. COMMENTS: The patient has moderate sleep apnea. A split study was attempted but the patient could not tolerate nasal CPAP or BiPAP with either a nasal mask or full facemask. She does have marked obesity with a BMI of 54.13. She does have significant hypoxia. Obviously, would be important for her that she be treated with CPAP or BiPAP if at all possible. On her post-sleep questionnaire, she indicated that in general it was better with BiPAP than CPAP. RECOMMENDATIONS: 1. It would be advised that the patient give a trial of CPAP or BiPAP. This perhaps could be accomplished by a full night titration study. Alternatively, she could be treated with auto CPAP or perhaps auto BiPAP. To be treated for auto BiPAP, we will need to be noted that she had failed CPAP. As noted in her post-sleep questionnaire, she indicated CPAP was worse than BiPAP. 2. Weight loss is advised in light of the severe elevation of body mass index. 3. If the patient does not wish to consider CPAP or BiPAP, consideration could be given to referral for an oral appliance if indeed she has her own teeth and they are in fairly good condition. 4. It is advised that she avoid sleeping on her side or on her stomach. She should avoid sleeping in the supine position. 5. She should continue wearing nocturnal oxygen therapy.
== END | disposition home or self-care (01) ==
LOC: C.NEUR 20:00
PROVIDERS: ATTEND Physician Assistant
DX: G47.33 Obstructive sleep apnea (adult) (pediatric) (principal); G47.34 Idiopathic sleep related nonobstructive alveolar hypoventilation

== ENCOUNTER → 2018-02-11 | Outpatient (CLI) | payer OTHER ==
[~2018-02-11] MED LIST changes: +ADVIN25/60 INH; +BRL90 PO; +CETI10TA84 PO; +ERGO500011 PO; +MONT1TAB5 PO; +POTA10TA30 PO; +ROSU20TA24 PO
[2018-02-11 12:19] LABS: HEMATOCRIT 35.7 % (37-47); HEMOGLOBIN 11.4 g/dL (12.0-16.0); MEAN CELL VOLUME 87.7 fL (80-100); MEAN CORPUSCULAR HGB CONC 31.9 g/dl (32-36); MEAN PLATELET VOLUME 11.6 fL (7.4-10.4); PLATELET COUNT 250 K/uL (130-400); RED CELL DISTRIBUTION WIDTH CV 16.5 % (11.5-14.5); RED CELL DISTRIBUTION WIDTH SD 52.8 fL (36.4-46.3); WHITE BLOOD COUNT 11.01 K/uL (4.8-10.8)
[2018-02-11 13:05] LABS: BLOOD UREA NITROGEN 28 mg/dl (7-18); CALCIUM 9.4 mg/dl (8.5-10.1); CARBON DIOXIDE 23 mmol/L (21-32); CREATININE 1.39 mg/dl (0.60-1.20); GLUCOSE 402 mg/dl (70-99); POTASSIUM 4.6 mmol/L (3.5-5.1); SODIUM 136 mmol/L (136-145)
== END | disposition home or self-care (01) ==
LOC: C.LAB 10:47
PROVIDERS: ATTEND Physician Assistant
DX: I25.10 Atherosclerotic heart disease of native coronary artery without angina pectoris (principal); N18.9 Chronic kidney disease, unspecified

== ENCOUNTER → 2018-03-15 | Outpatient (CLI) | payer OTHER ==
[~2018-03-15] MED LIST changes: -CETI10TA84 PO; +FURO-85 PO; -LSX20 PO; -POTA10TA30 PO; -ROSU20TA24 PO
--- NOTE | 2018-03-15 12:22 | DIAGNOSTIC IMAGING REPORT ---
RIGHT FOOT 3 VIEWS CLINICAL HISTORY: Diabetes. FINDINGS: 3 views of the right foot are obtained. No prior studies are available for comparison at the time of dictation. The skeletal structures are osteopenic. No fracture is seen. Degenerative spurring is noted along the dorsal aspect of the tarsal bones. There is a large plantar calcaneal enthesophyte. Minimal arthritic change is present at the first tarsometatarsal and metatarsophalangeal joints. Soft tissue edema is noted throughout the foot. Tiny phlebolith are present in the distal calf. IMPRESSION: 1. Soft tissue swelling with no acute bony abnormality identified. 2. Osteopenia, mild degenerative change, and large plantar heel spur as above. Electronically signed by: Puneet Castañeda M.D. 03/15/2018 12:20 PM Dictated Date/Time: 03/15/2018 12:19 PM
== END | disposition home or self-care (01) ==
LOC: C.RAD1850 11:10
PROVIDERS: ATTEND Physician Assistant
DX: L08.9 Local infection of the skin and subcutaneous tissue, unspecified (principal); E11.9 Type 2 diabetes mellitus without complications; M85.871 Other specified disorders of bone density and structure, right ankle and foot; M77.31 Calcaneal spur, right foot

== ENCOUNTER 2018-08-16 16:49 | Inpatient (IN) ==
--- NOTE | 2018-08-16 19:57 | XRay Report ---
XR chest 1V portable CLINICAL HISTORY: 62 years-old Female presenting with Chest Pain. TECHNIQUE: Portable upright AP view of the chest was obtained. COMPARISON: . FINDINGS: Cardiac silhouette mildly enlarged. Pulmonary vascular prominence. Bronchial wall cuffing. No focal l evan opacity. No large effusion or pneumothorax. Osseous structures normal. Upper abdomen normal. IMPRESSION: 1. Mild cardiomegaly with volume overload/congestive change. No lita pulmonary edema at this time. Electronically signed by: Shaheen Costa M.D. 08/16/2018 7:56 PM
[2018-08-16 20:26] LABS: Base Excess VBG 2.4 mEq/L; HCO3 VBG 28 mmol/L; PCO2 VBG 49 mmHg (38-50); PO2 VBG 28 mmHg; pH VBG 7.37 (7.36-7.41)
[2018-08-16 20:27] LABS: Oxygen Saturation VBG < 60.0 %
[2018-08-16 20:33] LABS: Basophils # (auto) 0.03 K/uL (0-0.2); Basophils % (auto) 0.2 %; Eosinophils # (auto) 0.23 K/uL (0-0.5); Eosinophils % (auto) 1.8 %; Hematocrit (blood only) 23.4 % (37-47); Hemoglobin 7.1 g/dL (12.0-16.0); Immature Granulocytes # (auto) 0.07 K/uL (0.00-0.02); Immature Granulocytes % (auto) 0.6 %; Lymphocytes # (auto) 3.19 K/uL (1.2-3.4); Lymphocytes % (auto) 25.5 %; Mean Corpuscular Hgb Conc 30.3 g/dL (32-36); Mean Platelet Volume 9.6 fL (7.4-10.4); Monocytes # (auto) 1.01 K/uL (0.11-0.59); Monocytes % (auto) 8.1 %; Neutrophils # (auto) 7.98 K/uL (1.4-6.5); Neutrophils % (auto) 63.8 %; Nucleated RBC # (auto) 0.03 K/uL (0-0); Nucleated RBC % (auto) 0.3 %; Platelet Count 313 K/uL (130-400); RDW Coefficient of Variation 18.8 % (11.5-14.5); RDW Standard Deviation 58.4 fL (36.4-46.3); Red Blood Count 2.72 M/uL (4.2-5.4); White Blood Count 12.51 K/uL (4.8-10.8)
[2018-08-16 20:40] LABS: INR 1.1 (0.9-1.1); Partial Thromboplastin Time 26.5 Seconds (21.0-31.0); Prothrombin Time 11.4 Seconds (9.0-12.0)
[2018-08-16 20:53] LABS: Alanine Aminotransferase 20 U/L (12-78); Aspartate Aminotransferase 11 U/L (15-37); BUN Creatinine Ratio 22.4 (10-20); Blood Urea Nitrogen 32 mg/dl (7-18); Calcium 9.3 mg/dl (8.5-10.1); Carbon Dioxide 27 mmol/L (21-32); Chloride 102 mmol/L (98-107); Creatinine Clr Calc Pharmacy 54.2 ml/min; Est GFR (African American) 45.4; Est GFR (Non-African American) 39.2; Glucose 59 mg/dl (70-99); Magnesium 2.5 mg/dl (1.8-2.4); Potassium 3.4 mmol/L (3.5-5.1); Sodium 137 mmol/L (136-145)
[2018-08-16 20:58] LABS: Albumin Globulin Ratio 0.6 (0.9-2); Alkaline Phosphatase 93 U/L (45-117); Bilirubin,Total 0.3 mg/dl (0.2-1); Globulin 4.9 gm/dl (2.5-4.0); NT Pro B Type Natriuretic Pept 70 pg/ml (0-900); Total Protein 7.9 gm/dl (6.4-8.2); Troponin I < 0.015 ng/ml (0-0.045)
[2018-08-16 21:08] LABS: Hypochromasia Present; Polychromasia 1+; Stomatocytes 1+
[2018-08-16] MEDS ORDERED: PANTOprazole 80 MG in DEXTROSE 5% 100 ML IV ONE (22:01)
[2018-08-16] MEDS ORDERED: PANTOPRAZOLE BOLUS/DRIP 1 EA IV STA (22:01)
[2018-08-16] MEDS: PANTOprazole 40 MG in DEXTROSE 5% 100 ML IV SCH (22:34)
--- NOTE | 2018-08-16 23:02 | History & Physical Report ---
Date of Service August 16, 2018 Assessment & Plan (1) GI bleeding: GI bleed/Symptomatic anemia -hold asa/brillinta -consult gi/consult cards in light of recent stent/regarding when to restart meds -NPO for potential scope -1U PRBCs transfused, 1unit on hold -On protonix drip -H&H q6h x 3 T2DM -Continue home u-500 BID dosing. -Will discuss with pharmacy given low glucose on admission, NPO status, what to do with dosing tonight and tomorrow AM. -Continue crestor/losartan CHF/CVD -does not appear to be fluid overloaded at this time -Last echo december 2017 shows EF of 60% -Hold asa/brillinta as above, continue crestor Oxygen requirement -Uses 1L at rest, 2L on exertion for past year -continue xopenex, montelukast, levalbuterol, advair Hypokalemia - will order K josefaer, clinically evaluate her response to fluids Elevated creatinine -Diabetic nephropathy -CKD stage IIIb based on eGFR from labs dating to october 2017. Thyroid Cancer -s/p partial thyroidectomy -cont home meds -reports there are "new lesions"--follows with [facility] -use home CPAP DVTP: SCDs/TEDs Code: full Dispo: inpatient management and investigation for symptomatic anemia. Tele status (2) Symptomatic anemia: (3) Shortness of breath: (4) Diabetes: (5) GERD (gastroesophageal reflux disease): (6) Thyroid cancer: (7) Elevated serum creatinine: (8) Hypokalemia: History of Present Illness Chief Complaint: Dyspnea on exertion Primary Care Provider: Aiyana Asencio MD Patient is a pleasant 62yoF who presents to the ER for a 1 week history of worsening dyspnea, dyspnea on exertion, chest pounding, intermittent lightheadedness, and a 2 week history of dark black-like stool. She has a history of h. pylori treated 10 years ago, diverticulitis in the past year, and a history of colon polyps. Last colonoscopy 2 years ago was normal per pt. Other PMH includes: T2DM, GERD, Thyroid Cancer, Anxiety, STEWART on CPAP, CHF. She does wear oxygen at home, 1L at rest and 2L on exertion. Patient recently had cardiac stent placed (December 2017) and is on ASA and brillinta. Allergies Allergy/AdvReac Type Severity Reaction Status Date / Time shellfish derived Allergy Severe "SEAFOOD" Verified 08/16/18 21:13 -- HIVES and ANAPHLYAXIS sulfite Allergy Severe HIVES AND Verified 08/16/18 21:13 THROAT CLOSES Iodinated Contrast- Oral and Allergy Unknown UNKNOWN Verified 08/16/18 21:13 IV Dye iodine Allergy Unknown Unknown Verified 08/16/18 21:13 Home Medications Home Medications Medication Instructions Recorded Confirmed Type aspirin [Aspir-81] 81 mg PO QAM 03/25/18 08/16/18 History fluticasone [24 Hour Allergy 2 spray INTRANASAL DAILY PRN 03/25/18 08/16/18 History Relief] montelukast 10 mg PO PM 03/25/18 08/16/18 History levalbuterol tartrate [Xopenex HFA] 2 inh INHALATION Q4H PRN 06/25/18 08/16/18 History levothyroxine 75 mcg PO QAM 06/25/18 08/16/18 History losartan 50 mg PO QAM 06/25/18 08/16/18 History rosuvastatin [Crestor] 40 mg PO PM 06/25/18 08/16/18 History epinephrine [EpiPen] 0.3 mg IM DIRECTED PRN 08/16/18 08/16/18 History fluticasone-salmeterol [Advair 1 puff INHALATION BID 08/16/18 08/16/18 History Diskus] furosemide 20 mg PO QAM 08/16/18 08/16/18 History insulin regular hum U-500 conc 100 units SUBCUT QAM 08/16/18 08/16/18 History [Humulin R U-500 (Conc) Kwikpen] insulin regular hum U-500 conc 120 units SUBCUT QPM 08/16/18 08/16/18 History [Humulin R U-500 (Conc) Kwikpen] levalbuterol HCl 0.31 mg INHALATION Q4H PRN 08/16/18 08/16/18 History ticagrelor [Brilinta] 90 mg PO BID 08/16/18 08/16/18 History Past Med/Surg History Medical History Diabetes (Chronic) GERD (gastroesophageal reflux disease) (Chronic) Diverticulitis (Resolved) Thyroid cancer (Resolved) Acute respiratory failure with hypoxia CHF (congestive heart failure) Family History Other No pertinent family history Social History Current Living Situation: Spouse Other Information That Helps Us Care for You: No Feels Safe at Home: Yes Safety Concerns: Feels Safe At This Time Smoking Status: Never smoker Hx Alcohol Use: No Beliefs That Will Affect Care: None Preferred Language: Citizen Of [place] 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 Ability: Effective 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 Review of Systems All systems reviewed & are unremarkable except as noted in HPI & below Constitutional: + fatigue, + weakness and + weight gain Eyes: + diplopia (intermittent when feeling lightheaded) Respiratory: + dyspnea, + dyspnea on exertion and + stopping breathing during sleep (uses CPAP) Cardiovascular: + dyspnea, + dyspnea at rest, + dyspnea on exertion and + lightheadedness; no chest pain and no radiating jaw, neck or arm pain Gastrointestinal: + heartburn and + melena; no abdominal pain and no diarrhea/ loose stools Integumentary: + unusual bruising (recently had bruising on abdomen) Neurologic: + unsteadiness, + generalized weakness and + dizziness Endocrine: + fatigue and + problem reported (h/o thyroid ca, reports "new nodules") Physical Exam 2 Vital Signs (Past 24 Hours): Last Vital Signs Temp 36.6 C 08/16/18 17:08 Pulse 93 H 08/16/18 22:00 Resp 29 H 08/16/18 22:00 BP 129/32 L 08/16/18 22:00 Pulse Ox 100 08/16/18 22:00 Constitutional: WD/WN, vitals as above + morbidly obese Eyes: PERRL, conjunctivae normal, anicteric sclerae ENMT: external ear and nose normal, oropharynx normal Neck: normal visual inspection Respiratory: normal respiratory effort, lungs clear to auscultation Cardiovascular: Rate/Rhythm: regular rate and regular rhythm Extremities: + pedal edema and + edema (pt wears compression stockings) Gastrointestinal (Abdomen): normal bowel sounds, soft, nontender, no hepatosplenomegaly Percussion/Palpation: abdomen nontender Musculoskeletal: no cyanosis or clubbing, extremities motor strength 5/5 Skin: no rashes, warm and dry normal turgor Neurologic: PERRL, EOMI, accommodation nl, no face palsy, no dysarthria Psychiatric: A+Ox3, euthymic affect Results & Data Laboratory Results 08/16/18 08/16/18 08/16/18 Range/Units 22:31 20:10 20:10 WBC (4.8-10.8) K/uL RBC (4.2-5.4) M/uL Hgb (12.0-16.0) g/dL Hct (37-47) % MCV (80-100) fL MCH (25-34) pg MCHC (32-36) g/dL RDW Std Deviation (36.4-46.3) fL RDW Coeff of Cherelle (11.5-14.5) % Plt Count (130-400) K/uL MPV (7.4-10.4) fL Immature Gran % (Auto) % Neut % (Auto) % Lymph % (Auto) % Walton % (Auto) % Eos % (Auto) % Baso % (Auto) % Immature Gran # (Auto) (0.00-0.02) K/uL Neut # (Auto) (1.4-6.5) K/uL Lymph # (Auto) (1.2-3.4) K/uL Walton # (Auto) (0.11-0.59) K/uL Eos # (Auto) (0-0.5) K/uL Baso # (Auto) (0-0.2) K/uL Absolute Nucleated RBC (0-0) K/uL Nucleated RBC % (auto) % Polychromasia Hypochromasia Stomatocytes PT 11.4 (9.0-12.0) Seconds INR 1.1 (0.9-1.1) APTT 26.5 (21.0-31.0) Seconds PTT Ratio 1.0 VBG pH (7.36-7.41) VBG pCO2 (38-50) mmHg VBG pO2 mmHg VBG HCO3 mmol/L VBG O2 Saturation % VBG Base Excess mEq/L Barometric Pressure mm/Hg Sodium 137 (136-145) mmol/L Potassium 3.4 L (3.5-5.1) mmol/L Chloride 102 (98-107) mmol/L Carbon Dioxide 27 (21-32) mmol/L Anion Gap 8.0 (3-11) BUN 32 H (7-18) mg/dl Creatinine 1.43 H (0.6-1.2) mg/dl Est Cr Clr Drug Dosing 54.2 ml/min Est GFR ( Amer) 45.4 Est GFR (Non-Af Amer) 39.2 BUN/Creatinine Ratio 22.4 H (10-20) Glucose 59 L (70-99) mg/dl Calcium 9.3 (8.5-10.1) mg/dl Magnesium 2.5 H (1.8-2.4) mg/dl Total Bilirubin 0.3 (0.2-1) mg/dl AST 11 L (15-37) U/L ALT 20 (12-78) U/L Alkaline Phosphatase 93 (45-117) U/L Troponin I < 0.015 (0-0.045) ng/ml NT-Pro-B Natriuret Pep 70 (0-900) pg/ml Total Protein 7.9 (6.4-8.2) gm/dl Albumin 3.0 L (3.4-5.0) gm/dl Globulin 4.9 H (2.5-4.0) gm/dl Albumin/Globulin Ratio 0.6 L (0.9-2) Lipase 186 (73-393) U/L Blood Type A Positive Antibody Screen NEGATIVE Crossmatch See Detail 08/16/18 08/16/18 Range/Units 20:10 20:08 WBC 12.51 H (4.8-10.8) K/uL RBC 2.72 L (4.2-5.4) M/uL Hgb 7.1 L (12.0-16.0) g/dL Hct 23.4 L (37-47) % MCV 86.0 (80-100) fL MCH 26.1 (25-34) pg MCHC 30.3 L (32-36) g/dL RDW Std Deviation 58.4 H (36.4-46.3) fL RDW Coeff of Cherelle 18.8 H (11.5-14.5) % Plt Count 313 (130-400) K/uL MPV 9.6 (7.4-10.4) fL Immature Gran % (Auto) 0.6 % Neut % (Auto) 63.8 % Lymph % (Auto) 25.5 % Walton % (Auto) 8.1 % Eos % (Auto) 1.8 % Baso % (Auto) 0.2 % Immature Gran # (Auto) 0.07 H (0.00-0.02) K/uL Neut # (Auto) 7.98 H (1.4-6.5) K/uL Lymph # (Auto) 3.19 (1.2-3.4) K/uL Walton # (Auto) 1.01 H (0.11-0.59) K/uL Eos # (Auto) 0.23 (0-0.5) K/uL Baso # (Auto) 0.03 (0-0.2) K/uL Absolute Nucleated RBC 0.03 H (0-0) K/uL Nucleated RBC % (auto) 0.3 % Polychromasia 1+ Hypochromasia Present Stomatocytes 1+ PT (9.0-12.0) Seconds INR (0.9-1.1) APTT (21.0-31.0) Seconds PTT Ratio VBG pH 7.37 (7.36-7.41) VBG pCO2 49 (38-50) mmHg VBG pO2 28 mmHg VBG HCO3 28 mmol/L VBG O2 Saturation < 60.0 % VBG Base Excess 2.4 mEq/L Barometric Pressure 734.8 mm/Hg Sodium (136-145) mmol/L Potassium (3.5-5.1) mmol/L Chloride (98-107) mmol/L Carbon Dioxide (21-32) mmol/L Anion Gap (3-11) BUN (7-18) mg/dl Creatinine (0.6-1.2) mg/dl Est Cr Clr Drug Dosing ml/min Est GFR ( Amer) Est GFR (Non-Af Amer) BUN/Creatinine Ratio (10-20) Glucose (70-99) mg/dl Calcium (8.5-10.1) mg/dl Magnesium (1.8-2.4) mg/dl Total Bilirubin (0.2-1) mg/dl AST (15-37) U/L ALT (12-78) U/L Alkaline Phosphatase (45-117) U/L Troponin I (0-0.045) ng/ml NT-Pro-B Natriuret Pep (0-900) pg/ml Total Protein (6.4-8.2) gm/dl Albumin (3.4-5.0) gm/dl Globulin (2.5-4.0) gm/dl Albumin/Globulin Ratio (0.9-2) Lipase (73-393) U/L Blood Type Antibody Screen Crossmatch Medications Administered Current Inpatient Medications Epinephrine HCl (Epipen) 0.3 mg IM DIRECTED PRN PRN Reason: Allergic Reaction Stop: 09/15/18 23:18 Pantoprazole Sodium 40 mg/ (Dextrose) 100 mls @ 20 mls/hr IV Q5H LEONA Stop: 09/15/18 22:14 Last Admin: 08/16/18 22:34 Dose: 20 mls/hr Levalbuterol HCl (Xopenex 0.31mg/3 Ml) 0.31 mg INH Q4H PRN PRN Reason: Wheezing Stop: 09/15/18 23:18 Levalbuterol HCl (Xopenex Hfa) puffs INH Q4H PRN PRN Reason: Shortness Of Breath Or Wheezing Stop: 09/15/18 23:18 Levothyroxine Sodium (Synthroid) 75 mcg PO QAM LEONA Stop: 09/16/18 08:59 Losartan Potassium (Cozaar) 50 mg PO QAM LEONA Stop: 09/16/18 08:59 Montelukast Sodium (Singulair) 10 mg PO PM LEONA Stop: 09/16/18 20:59 Rosuvastatin Calcium (Crestor) 40 mg PO PM LEONA Stop: 09/16/18 20:59 Fluticasone/Salmeterol (Advair Diskus 250/50) 1 puffs INH BID LEONA Stop: 09/16/18 08:59 Code Status & VTE Plan Code Status full VTE Prophylaxis Plan VTE Prophylaxis will be ordered: Yes Supervising Physician Co-Signing Physician Notes Attending addendum: I have physically seen this patient, have supervised the medical residents activities, and agree with the H&P unless as otherwise noted. Assessment and Plan: GI bleed/symptomatic anemia-- NPO Hold aspirin and Brilinta. H&H every 6 hours. Transfuse 1 unit PRBCs now, with recent stent, target hemoglobin to be around 10. Continue Protonix infusion begun in the ED. Consult gastroenterology. CAD/hypertension/CHF/circumflex stent placement on 01/11/18-- Hold aspirin and Brilinta as above. Give Lasix IV as needed associated with transfusions. Consult cardiology. Remainder of orders and notations as noted. Resident Activity Tracking Resident Involvement: Resident Care Provided Care Provided: Adult [facility] Medicine _ (1) GI bleeding GI bleed type/associated pathology: Gastritis type:
[2018-08-16] MEDS ORDERED: LEVALBUTEROL 0.31MG/3 ML VIAL INH PRN (23:19)
[2018-08-16] MEDS ORDERED: EPINEPHRINE ADULT AUTO-INJECT 0.3 MG SYR IM PRN (23:19)
[2018-08-16] MEDS ORDERED: LEVALBUTEROL TARTRATE 15 GM HFA.AER.AD INH PRN (23:19)
[2018-08-17] MEDS ORDERED: DEXTROSE 50% 50 ML SYRINGE IV ONE (00:57)
[2018-08-17] MEDS ORDERED: GLUCOSE 40% GEL 15 GM TUBE PO PRN (01:49)
[2018-08-17] MEDS ORDERED: ONDANSETRON INJ 2 MG/ML 2 ML VIAL IV PRN (01:49)
[2018-08-17] MEDS ORDERED: ACETAMINOPHEN 325 MG TAB PO PRN (01:49)
[2018-08-17] MEDS ORDERED: MAGNESIUM HYDROXIDE SUSP 30 ML UDC PO PRN (01:49)
[2018-08-17] MEDS ORDERED: DEXTROSE 50% 50 ML SYRINGE IV PRN (01:49)
[2018-08-17] MEDS ORDERED: GLUCAGON FOR INJ 1 MG VIAL SQ PRN (01:49)
[2018-08-17] MEDS ORDERED: POLYETHYLENE (MIRALAX) 17 GM PACK PO PRN (01:49)
[2018-08-17] MEDS ORDERED: GLUCOSE 10 TABS/TUBE PO PRN (01:49)
[2018-08-17] MEDS ORDERED: CARBOHYDRATES FOR HYPOGLYCEMIA PO PRN (01:49)
[2018-08-17] MEDS ORDERED: ALUMINUM/MAGNESIUM SUSP 30 ML UDC PO PRN (01:49)
[2018-08-17] MEDS: PANTOprazole 40 MG in DEXTROSE 5% 100 ML IV SCH ×5 (02:57→23:17)
[2018-08-17] MEDS: POTASSIUM CHLORIDE / WTR 10 MEQ/100 ML PLCT IV SCH ×4 (03:15→07:55)
[2018-08-17] MEDS ORDERED: GLUCOSE 40% GEL 15 GM TUBE PO STA (03:24)
[2018-08-17] MEDS: LEVOTHYROXINE SODIUM 75 MCG TABLET PO SCH (06:36)
[2018-08-17] MEDS ORDERED: PHARMACY GLYCEMIC MGMT CONSULT PRN (06:41)
[2018-08-17] MEDS: INSULIN ASPART 100 UNITS/ML 3 ML PEN SC SCH ×4 (07:26→21:15)
[2018-08-17] MEDS: FLUTICASONE/SALMETEROL 250/50 (ADVAIR) 14 PUFF/1 INHALER INH SCH ×2 (07:57→21:13)
[2018-08-17] MEDS ORDERED: INSULIN DETEMIR FLEXPEN/FLEX TOUCH 100 UNITS/ML 3ML SC ONE (08:00)
[2018-08-17 08:16] LABS: Basophils # (auto) 0.02 K/uL (0-0.2); Basophils % (auto) 0.2 %; Eosinophils # (auto) 0.19 K/uL (0-0.5); Eosinophils % (auto) 1.6 %; Hematocrit (blood only) 23.8 % (37-47); Hemoglobin 7.1 g/dL (12.0-16.0); Hemoglobin 7.3 g/dL (12.0-16.0); Immature Granulocytes # (auto) 0.07 K/uL (0.00-0.02); Immature Granulocytes % (auto) 0.6 %; Lymphocytes # (auto) 2.86 K/uL (1.2-3.4); Lymphocytes % (auto) 23.6 %; Mean Corpuscular Hgb Conc 30.9 g/dL (32-36); Mean Corpuscular Volume 85.5 fL (80-100); Mean Platelet Volume 9.2 fL (7.4-10.4); Monocytes # (auto) 0.83 K/uL (0.11-0.59); Monocytes % (auto) 6.8 %; Neutrophils # (auto) 8.15 K/uL (1.4-6.5); Neutrophils % (auto) 67.2 %; Platelet Count 269 K/uL (130-400); RDW Coefficient of Variation 18.5 % (11.5-14.5); RDW Standard Deviation 57.8 fL (36.4-46.3); Red Blood Count 2.69 M/uL (4.2-5.4); White Blood Count 12.12 K/uL (4.8-10.8)
--- NOTE | 2018-08-17 08:43 | Hospitalist Progress Note ---
Date of Service August 17, 2018 Assessment & Plan (1) GI bleeding: GI bleed/Symptomatic anemia -hold asa/brillinta -consult gi/consult and cardiology in light of recent stent/regarding when to restart meds -1U PRBCs transfused, 1unit to be given today with additional Lasix -On protonix drip -Continue crestor/losartan (2) Symptomatic anemia: (3) Shortness of breath: CHF/CVD must be chronic diastolic heart failure -does not appear to be fluid overloaded at this time -Last echo december 2017 shows EF of 60% -Hold asa/brillinta as above, continue crestor Chronic hypioxic respiratory failure Chronic Oxygen requirement -Uses 1L at rest, 2L on exertion for past year -continue xopenex, montelukast, levalbuterol, advair Obstructive sleep apnea with the need for BiPAP at night (4) Diabetes: long acting insulin and ssi (5) GERD (gastroesophageal reflux disease): (6) Thyroid cancer: Thyroid Cancer -s/p partial thyroidectomy -cont home meds -reports there are "new lesions"--follows with [facility] (7) Elevated serum creatinine: Elevated creatinine -Diabetic nephropathy -CKD stage IIIb based on eGFR from labs dating to october 2017. (8) Hypokalemia: replete (9) DVT prophylaxis: DVTP: SCDs/TEDs Code: full Dispo: inpatient management and investigation for acute blood loss anemia Subjective Patient is still fairly tachypneic with exertion. She typically wears oxygen chronically 1 L at rest 2 L with exertion. She is morbidly obese which also impacts her breathing. We will transfusion her hemoglobin only augmented slightly which only is set for another unit of blood with diuretic I spoke personally to cardiology and gastroenterology. Cardiology is comfortable holding her Brilinta as she is more than 6 months out from her cardiac stenting. Gastroneurology will hold on an aggressive intervention with concern for some of her pulmonary status until this is more stable. We will however pursue a upper endoscopy if she appears to be continuing to have acute blood loss anemia Review of Systems ROS: well nourished well developed. Tachypneic with exertion and at rest No double vision blurry vision No problems with speech or swallowing No palpitations, chest pain or pressure chronic lower extremity edema with a compressive stockings daily No Wheezing worsened dyspnea on exertion No abdominal pain nausea vomiting diarrhea changes in appetite or weight No burning urine urine frequency or changes in color No focal joint pain or muscle pain No skin rashes or oral lesions No unusual bruising or bleeding No focused back pain or numbness or loss of strength No changes in memory or confusion Physical Exam 2 Vital Signs (Past 24 Hours): Last Vital Signs Temp 37 C 08/17/18 05:11 Pulse 93 H 08/17/18 05:11 Resp 18 08/17/18 05:11 BP 97/44 L 08/17/18 05:11 Pulse Ox 98 08/17/18 05:11 The patient appeared well nourished and normally developed. Morbidly obese and with mild to moderate respiratory distress Vital signs as documented. Make tachypneic to my examination Head exam is unremarkable. normocephalic, atraumatic Neck is without jugular venous distension, thyromegaly, or lymphademopathy Lungs are diminished with basilar rales which clear with deep inspiration Cardiac exam reveals Rhythm is regular. First and second heart sounds normal. Abdominal exam reveals normal bowel sounds, no masses, no organomegaly she is nontender Extremities are chronically edematous compressive stockings are in place and both pedal pulses are present Neurologic exam is A&Ox3, no focal deficits, strength is equal bilateral Psychologically seems neither anxious or depressed Skin is warm Dry without bruises or lesions I do not could inspect the skin of her lower extremities as she is sitting in a chair with compressive stockings in place we will attempt to do this tomorrow _ (1) GI bleeding GI bleed type/associated pathology: Gastritis type:
[2018-08-17] MEDS ORDERED: SODIUM CHLORIDE 0.9% 250 ML IV PRN (08:46)
[2018-08-17 08:53] LABS: Calcium 9.1 mg/dl (8.5-10.1); Creatinine Clr Calc Pharmacy 59.4 ml/min; Est GFR (African American) 50.4; Est GFR (Non-African American) 43.5; Polychromasia 1+; Potassium 4.1 mmol/L (3.5-5.1)
[2018-08-17] MEDS ORDERED: INSULIN GLARGINE SOLOSTAR 100 UNITS/ML 3 ML PEN SC SCH (09:00)
[2018-08-17 09:38] LABS: Estimated Average Glucose 192 mg/dl
--- NOTE | 2018-08-17 10:34 | Gastrointestinal Consultation ---
Date of Consultation August 17, 2018 Assessment & Plan (1) Anemia: 62-year-old female with both heart and lung disease on chronic oxygen therapy presenting with what appears to be symptomatic anemia with possible recent melena. Fortunately she is no longer having any active complaints or issues that would be consistent with ongoing acute GI bleeding. On both exam as well as chest x- ray she does seem to be volume overloaded which certainly could be contributing to her symptoms as well as her blood count. She has not been taken any offending medications that is noted. I discussed with her endoscopy, states that she would pursue that but given the fact that she has very robust blood pressure this morning of 130/53 and a pulse of 96 only after 1 unit of blood she would like to wait until her respiratory status is a bit better and I tend to agree. I will discuss with her iron caster but if okay will hold her antiplatelet agent right now. Continue on IV PPI. Given her tenuous respiratory state will hold off on EGD today, obviously if something changes about her presentation and/or if she becomes more ill then will readdress. Given her body habitus and morbid obesity and dyspnea likelihood of intubation electively for the procedure is quite high. Okay for liquid diet today, continue IV PPI, n.p.o. after midnight agree with 1 more unit of blood transfusion with potential Lasix to follow as discussed with primary hospitalist. Call with questions, concerns, or change in clinical status. Thank you for consultation History of Present Illness Attending Physician: Isaias Johnson MD History of Present Illness Reason for consultations anemia and melena This is a 62yoF who presented to the ER last evening with a 1-2-week history of insidious dyspnea both on exertion and then at rest. She notes that she is felt generally more bloated and tired and breathless both at rest as well as exertion over the last 2 weeks. She does note that she has had some change in her bowel habits color which are dark red and/or black. She has had no nausea vomiting, no hematemesis. She has a significant heart history including on antiplatelet therapy. Upon presentation to the ER last night her hemoglobin was noted be 7.1. She tells me this morning that her last dark bowel movement was yesterday morning greater than 24 hours ago. No bowel movement since presentation to the ER and/or hospital [facility]. She is on chronic oxygen therapy between at 2 L since last year. She also reports to me orthopnea with inability to lie flat, increased peripheral edema and swelling. Upon me entering the room, she was walking from the bathroom back to the chair and was very breathless with tachypnea. Otherwise she has no complaints today at rest she is doing well. She was transfused 1 unit of blood her hemoglobin ya only marginally. Allergies Allergy/AdvReac Type Severity Reaction Status Date / Time shellfish derived Allergy Severe "SEAFOOD" Verified 08/16/18 21:13 -- HIVES and ANAPHLYAXIS sulfite Allergy Severe HIVES AND Verified 08/16/18 21:13 THROAT CLOSES Iodinated Contrast- Oral and Allergy Unknown UNKNOWN Verified 08/16/18 21:13 IV Dye iodine Allergy Unknown Unknown Verified 08/16/18 21:13 Home Medications Home Medications Medication Instructions Recorded Confirmed Type aspirin [Aspir-81] 81 mg PO QAM 03/25/18 08/16/18 History fluticasone [24 Hour Allergy 2 spray INTRANASAL DAILY PRN 03/25/18 08/16/18 History Relief] montelukast 10 mg PO PM 03/25/18 08/16/18 History levalbuterol tartrate [Xopenex HFA] 2 inh INHALATION Q4H PRN 06/25/18 08/16/18 History levothyroxine 75 mcg PO QAM 06/25/18 08/16/18 History losartan 50 mg PO QAM 06/25/18 08/16/18 History rosuvastatin [Crestor] 40 mg PO PM 06/25/18 08/16/18 History epinephrine [EpiPen] 0.3 mg IM DIRECTED PRN 08/16/18 08/16/18 History fluticasone-salmeterol [Advair 1 puff INHALATION BID 08/16/18 08/16/18 History Diskus] furosemide 20 mg PO QAM 08/16/18 08/16/18 History insulin regular hum U-500 conc 100 units SUBCUT QAM 08/16/18 08/16/18 History [Humulin R U-500 (Conc) Kwikpen] insulin regular hum U-500 conc 120 units SUBCUT QPM 08/16/18 08/16/18 History [Humulin R U-500 (Conc) Kwikpen] levalbuterol HCl 0.31 mg INHALATION Q4H PRN 08/16/18 08/16/18 History ticagrelor [Brilinta] 90 mg PO BID 08/16/18 08/16/18 History Patient History Medical History Diabetes (Chronic) GERD (gastroesophageal reflux disease) (Chronic) Diverticulitis (Resolved) Thyroid cancer (Resolved) Acute respiratory failure with hypoxia CHF (congestive heart failure) Family History Other No pertinent family history Social History Current Living Situation: Spouse Other Information That Helps Us Care for You: No Feels Safe at Home: Yes Safety Concerns: Feels Safe At This Time Smoking Status: Never smoker Hx Alcohol Use: No Beliefs That Will Affect Care: None Preferred Language: Somali 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 Ability: Effective 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
[2018-08-17] MEDS ORDERED: FUROSEMIDE 20 MG in SYRINGE 0 ML IV ONE (11:00)
--- NOTE | 2018-08-17 11:10 | Pharmacy Report ---
Glycemic Control Consultation - Date of Service August 17, 2018 - Scope Scope: Glycemic Pharmacist consulted by Dr Live on 08/16/18 for glycemic control and to write orders per [facility] inpatient glycemic control protocol - Objective Weight: 143.1 kg Accuchecks BSG (last 24hrs): 08/16/18 08/17/18 08/17/18 20:10 00:48 01:17 Glucose 59 L POC Glucose 61 L* 93 08/17/18 08/17/18 08/17/18 03:19 04:00 06:38 Glucose POC Glucose 72 81 124 H 08/17/18 07:06 Glucose 107 H POC Glucose Laboratory Data (last 24hrs): 08/16/18 08/17/18 20:10 07:06 Potassium 3.4 L 4.1 D Carbon Dioxide 27 25 Anion Gap 8.0 8.0 Creatinine 1.43 H 1.31 H Est Cr Clr Drug Dosing 54.2 59.4 HbA1c: Hemoglobin A1c 8.3 % (4.5-5.6) H 08/17/18 07:06 - Recent Pertinent Medications Outpatient Anti-diabetic Regimen: * U-500 100 units qAM, 120 units qPM * A1c = 8.3 % 08/17/18 Risk Factors for Insulin Resistance: * IVF: Protonix drip mixed in dextrose * Diet: NPO - Assessment & Plan Assessment & Plan: ASSESSMENT: * Ms. Molina is a 62 y/o female admitted for possible GI bleed. She has a history of type 2 diabetes, managed with concentrated U-500 insulin as an outpatient. A1c drawn this AM indicates her control could be better but is not grossly elevated. * Upon admission, she was hypoglycemic and is only up to 124 mg/dL this AM after receiving her last dose of U-500 yesterday morning. * She remains NPO and may be going for an EGD tomorrow. May be advanced to liquid diet today. * Due to reduced insulin needs and NPO status, will switch U-500 insulin to basal/bolus therapy, based on est TDD of ~100 units (this is ~1/2 of outpatient dose). PLAN FOR INPATIENT GLYCEMIC CONTROL: * Basal insulin * Lantus 25 units SQ BID * Bolus insulin * NovoLog per scale ACHS or Q6hrs while NPO * Goal Range: Low 110 mg/dL - High 140 mg/dL * Correction Factor: 15 mg/dL/unit * Nutritional / Prandial insulin per carb ratio of 1 unit per 5 grams CHO consumed Discharge Recommendations: * A1c of 8.3% indicates that patient could improve outpatient glycemic control. Recommend resumption of U-500 as an outpatient and close f/u to continue titrating to goal. Thank you.
[2018-08-17] MEDS: LOSARTAN POTASSIUM 50 MG TAB PO SCH (12:16)
--- NOTE | 2018-08-17 13:27 | Cardiology Consultation ---
Date of Consultation August 17, 2018 Assessment & Plan (1) Shortness of breath: She Has fairly significant breathing difficulty even at baseline. She has been using supplemental oxygen at home. This is likely related to her obesity and a primary pulmonary process. At the time of her cardiac catheterization in December of 2017, she was felt to have normal left ventricular filling pressures despite ongoing dyspnea. I do not believe her current symptoms of breathing difficulty are related to pulmonary edema. She is known to have preserved LV systolic function. Her x-ray is relatively benign. Her lung examination is benign. Her N terminal proBNP is very low. I suspect her breathing difficulty is related to underlying lung disease and worsening anemia. Present on Admission?: Yes (2) Coronary artery disease: She had percutaneous intervention to the circumflex artery in December of 2017. She did have some improvement in dyspnea at that time. However, her symptoms waxed and waned over the past few months and she continues to have an element of dyspnea at this time. In the setting of acute gastrointestinal hemorrhage would seem reasonable to discontinue her anti-platelet therapy. It has been 6 months since she underwent stenting with a newer generation drug- eluting stent. I think the risk of acute stent thrombosis is quite low. Ideally she would be maintained on a low-dose aspirin, but if the current recommendation is to stop all anti-platelet therapy until her bleeding source can be identified, she will probably do fine for few days. Subsequent to her evaluation we would definitely want her back on an aspirin, and we can debate whether she benefits from dual anti-platelet therapy. We may elect to discontinue her Brilinta now that she has had a significant bleeding event. Present on Admission?: Yes (3) Chest pain: Her symptoms are consistent with angina. However, she had a very low hemoglobin level recently and that may account for her exertional chest pain. She is known to have some residual nonobstructive disease in the LAD. It is possible that has progressed,. This point I think monitoring her symptoms after transfusion would be reasonable. Given her acute hemorrhage re- evaluation of her coronaries with percutaneous intervention is less desirable given the need for dual anti-platelet therapy afterward. I think this could be managed medically in any event. Present on Admission?: Yes History of Present Illness Reason for Consultation: Chest pain, shortness of breath Requesting Physician: Sam Attending Physician: Isaias Johnson MD History of Present Illness The patient is a 62-year-old woman with a history of coronary artery disease and obesity hypoventilation syndrome who has been recently been experiencing worsening dyspnea. She stated that her dyspnea worsened significantly approximately 1 and have weeks ago. She generally has an element of dyspnea with activity. She has been using supplemental oxygen at home for some time. Her dyspnea waxes and wanes in severity in over the past several months she has had improvement and worsening over several weeks to months at a time. The patient also has noted some change in her stool color. She has not had abdominal discomfort. She has not had significant nausea or vomiting. She was noted be markedly anemic and is suspected to have gastrointestinal hemorrhage. The patient states that she has been having orthopnea. She has difficulty lying flat due to significant breathing trouble. This is been true ever since a recent illness that she describes as an upper respiratory syndrome. In the past she has had market swelling of her lower extremities. This appears to be at baseline. She has been maintaining herself on a diuretic regimen at home. She is not aware of any increased edema. She has been having some symptoms of exertional chest discomfort. This seemed to occur over the past several days. This was exclusively related to exertion and was described as a discomfort in the precordium similar to that which she experienced prior to her percutaneous intervention last December. Allergies Allergy/AdvReac Type Severity Reaction Status Date / Time shellfish derived Allergy Severe "SEAFOOD" Verified 08/16/18 21:13 -- HIVES and ANAPHLYAXIS sulfite Allergy Severe HIVES AND Verified 08/16/18 21:13 THROAT CLOSES Iodinated Contrast- Oral and Allergy Unknown UNKNOWN Verified 08/16/18 21:13 IV Dye iodine Allergy Unknown Unknown Verified 08/16/18 21:13 Home Medications Home Medications Medication Instructions Recorded Confirmed Type aspirin [Aspir-81] 81 mg PO QAM 03/25/18 08/16/18 History fluticasone [24 Hour Allergy 2 spray INTRANASAL DAILY PRN 03/25/18 08/16/18 History Relief] montelukast 10 mg PO PM 03/25/18 08/16/18 History levalbuterol tartrate [Xopenex HFA] 2 inh INHALATION Q4H PRN 06/25/18 08/16/18 History levothyroxine 75 mcg PO QAM 06/25/18 08/16/18 History losartan 50 mg PO QAM 06/25/18 08/16/18 History rosuvastatin [Crestor] 40 mg PO PM 06/25/18 08/16/18 History epinephrine [EpiPen] 0.3 mg IM DIRECTED PRN 08/16/18 08/16/18 History fluticasone-salmeterol [Advair 1 puff INHALATION BID 08/16/18 08/16/18 History Diskus] furosemide 20 mg PO QAM 08/16/18 08/16/18 History insulin regular hum U-500 conc 100 units SUBCUT QAM 08/16/18 08/16/18 History [Humulin R U-500 (Conc) Kwikpen] insulin regular hum U-500 conc 120 units SUBCUT QPM 08/16/18 08/16/18 History [Humulin R U-500 (Conc) Kwikpen] levalbuterol HCl 0.31 mg INHALATION Q4H PRN 08/16/18 08/16/18 History ticagrelor [Brilinta] 90 mg PO BID 08/16/18 08/16/18 History Patient History Medical History Diabetes (Chronic) GERD (gastroesophageal reflux disease) (Chronic) Diverticulitis (Resolved) Thyroid cancer (Resolved) Acute respiratory failure with hypoxia CHF (congestive heart failure) Family History Other No pertinent family history Social History Current Living Situation: Spouse Other Information That Helps Us Care for You: No Feels Safe at Home: Yes Safety Concerns: Feels Safe At This Time Smoking Status: Never smoker Hx Alcohol Use: No Beliefs That Will Affect Care: None Preferred Language: Ukrainian 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 Ability: Effective 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 Pertinent positives noted in history present illness. She did not report significant dizziness or lightheadedness. She has not had syncope. No sense of palpitation. Physical Exam 2 Vital Signs (Past 24 Hours): Last Vital Signs Temp 36.8 C 08/17/18 13:09 Pulse 84 08/17/18 13:09 Resp 16 08/17/18 13:09 BP 113/68 08/17/18 13:09 Pulse Ox 100 08/17/18 13:09 Physical Exam: She is alert and oriented x3. Mood affect appear normal. She answered all questions appropriately. Morbidly obese HEENT: Sclerae are anicteric. Pupils are equal and reactive to light and accommodation. Extraocular movements were intact. Neuro: Cranial nerves intact Neck: Examination of the submandibular region did not reveal any significant lymphadenopathy. Carotids are palpable bilaterally and free of bruits on auscultation. There was no evidence of jugular venous distention but her neck tissues are quite redundant. The thyroid was not enlarged. Lungs: Lungs are clear to auscultation bilaterally. There are no rales wheezes or rhonchi. She has normal respiratory effort without use of accessory muscles. There is normal pulmonary excursion. Cardiac: The rhythm was regular. S1 and S2 were normal. There are no murmurs on examination. The PMI was not markedly displaced on palpation. Abdomen: The abdomen was obese Extremities: Patient has bilateral radial pulses that are equal in intensity. There is no evidence cyanosis or clubbing. She did have some swelling around the IV site in her right forearm. She has marked lower extremity edema and is using compression stockings currently. Skin: There are no rashes noted on examination today. Results & Data Laboratory Results Abnormal Lab Results 08/16/18 08/16/18 08/16/18 20:08 20:10 20:10 WBC 12.51 H RBC 2.72 L Hgb 7.1 L Hct 23.4 L MCV 86.0 MCH 26.1 MCHC 30.3 L RDW Std Deviation 58.4 H RDW Coeff of Cherelle 18.8 H Plt Count 313 MPV 9.6 Immature Gran % (Auto) 0.6 Neut % (Auto) 63.8 Lymph % (Auto) 25.5 [place] % (Auto) 8.1 Eos % (Auto) 1.8 Baso % (Auto) 0.2 Immature Gran # (Auto) 0.07 H Neut # (Auto) 7.98 H Lymph # (Auto) 3.19 [place] # (Auto) 1.01 H Eos # (Auto) 0.23 Baso # (Auto) 0.03 Absolute Nucleated RBC 0.03 H Nucleated RBC % (auto) 0.3 Polychromasia 1+ Hypochromasia Present Stomatocytes 1+ PT 11.4 INR 1.1 APTT 26.5 PTT Ratio 1.0 VBG pH 7.37 VBG pCO2 49 VBG pO2 28 VBG HCO3 28 VBG O2 Saturation < 60.0 VBG Base Excess 2.4 Barometric Pressure 734.8 Sodium Potassium Chloride Carbon Dioxide Anion Gap BUN Creatinine Est Cr Clr Drug Dosing Est GFR ( Amer) Est GFR (Non-Af Amer) BUN/Creatinine Ratio Glucose POC Glucose Estimat Average Glucose Hemoglobin A1c Calcium Magnesium Total Bilirubin AST ALT Alkaline Phosphatase Troponin I NT-Pro-B Natriuret Pep Total Protein Albumin Globulin Albumin/Globulin Ratio Lipase Blood Type Antibody Screen Crossmatch 08/16/18 08/16/18 08/17/18 20:10 22:31 00:48 WBC RBC Hgb Hct MCV MCH MCHC RDW Std Deviation RDW Coeff of Cherelle Plt Count MPV Immature Gran % (Auto) Neut % (Auto) Lymph % (Auto) [place] % (Auto) Eos % (Auto) Baso % (Auto) Immature Gran # (Auto) Neut # (Auto) Lymph # (Auto) [place] # (Auto) Eos # (Auto) Baso # (Auto) Absolute Nucleated RBC Nucleated RBC % (auto) Polychromasia Hypochromasia Stomatocytes PT INR APTT PTT Ratio VBG pH VBG pCO2 VBG pO2 VBG HCO3 VBG O2 Saturation VBG Base Excess Barometric Pressure Sodium 137 Potassium 3.4 L Chloride 102 Carbon Dioxide 27 Anion Gap 8.0 BUN 32 H Creatinine 1.43 H Est Cr Clr Drug Dosing 54.2 Est GFR ( Amer) 45.4 Est GFR (Non-Af Amer) 39.2 BUN/Creatinine Ratio 22.4 H Glucose 59 L POC Glucose 61 L* Estimat Average Glucose Hemoglobin A1c Calcium 9.3 Magnesium 2.5 H Total Bilirubin 0.3 AST 11 L ALT 20 Alkaline Phosphatase 93 Troponin I < 0.015 NT-Pro-B Natriuret Pep 70 Total Protein 7.9 Albumin 3.0 L Globulin 4.9 H Albumin/Globulin Ratio 0.6 L Lipase 186 Blood Type A Positive Antibody Screen NEGATIVE Crossmatch See Detail 08/17/18 08/17/18 08/17/18 01:17 03:19 04:00 WBC RBC Hgb Hct MCV MCH MCHC RDW Std Deviation RDW Coeff of Cherelle Plt Count MPV Immature Gran % (Auto) Neut % (Auto) Lymph % (Auto) [place] % (Auto) Eos % (Auto) Baso % (Auto) Immature Gran # (Auto) Neut # (Auto) Lymph # (Auto) [place] # (Auto) Eos # (Auto) Baso # (Auto) Absolute Nucleated RBC Nucleated RBC % (auto) Polychromasia Hypochromasia Stomatocytes PT INR APTT PTT Ratio VBG pH VBG pCO2 VBG pO2 VBG HCO3 VBG O2 Saturation VBG Base Excess Barometric Pressure Sodium Potassium Chloride Carbon Dioxide Anion Gap BUN Creatinine Est Cr Clr Drug Dosing Est GFR ( Amer) Est GFR (Non-Af Amer) BUN/Creatinine Ratio Glucose POC Glucose 93 72 81 Estimat Average Glucose Hemoglobin A1c Calcium Magnesium Total Bilirubin AST ALT Alkaline Phosphatase Troponin I NT-Pro-B Natriuret Pep Total Protein Albumin Globulin Albumin/Globulin Ratio Lipase Blood Type Antibody Screen Crossmatch 08/17/18 08/17/18 08/17/18 06:38 07:06 07:06 WBC 12.12 H RBC 2.69 L Hgb 7.1 L Hct 23.0 L MCV 85.5 MCH 26.4 MCHC 30.9 L RDW Std Deviation 57.8 H RDW Coeff of Cherelle 18.5 H Plt Count 269 MPV 9.2 Immature Gran % (Auto) 0.6 Neut % (Auto) 67.2 Lymph % (Auto) 23.6 [place] % (Auto) 6.8 Eos % (Auto) 1.6 Baso % (Auto) 0.2 Immature Gran # (Auto) 0.07 H Neut # (Auto) 8.15 H Lymph # (Auto) 2.86 [place] # (Auto) 0.83 H Eos # (Auto) 0.19 Baso # (Auto) 0.02 Absolute Nucleated RBC Nucleated RBC % (auto) Polychromasia 1+ Hypochromasia Stomatocytes PT INR APTT PTT Ratio VBG pH VBG pCO2 VBG pO2 VBG HCO3 VBG O2 Saturation VBG Base Excess Barometric Pressure Sodium 138 Potassium 4.1 D Chloride 105 Carbon Dioxide 25 Anion Gap 8.0 BUN 28 H Creatinine 1.31 H Est Cr Clr Drug Dosing 59.4 Est GFR ( Amer) 50.4 Est GFR (Non-Af Amer) 43.5 BUN/Creatinine Ratio 21.0 H Glucose 107 H POC Glucose 124 H Estimat Average Glucose Hemoglobin A1c Calcium 9.1 Magnesium Total Bilirubin AST ALT Alkaline Phosphatase Troponin I NT-Pro-B Natriuret Pep Total Protein Albumin Globulin Albumin/Globulin Ratio Lipase Blood Type Antibody Screen Crossmatch 08/17/18 08/17/18 08/17/18 07:06 07:06 12:27 WBC RBC Hgb 7.3 L Hct 23.8 L MCV MCH MCHC RDW Std Deviation RDW Coeff of Cherelle Plt Count MPV Immature Gran % (Auto) Neut % (Auto) Lymph % (Auto) [place] % (Auto) Eos % (Auto) Baso % (Auto) Immature Gran # (Auto) Neut # (Auto) Lymph # (Auto) [place] # (Auto) Eos # (Auto) Baso # (Auto) Absolute Nucleated RBC Nucleated RBC % (auto) Polychromasia Hypochromasia Stomatocytes PT INR APTT PTT Ratio VBG pH VBG pCO2 VBG pO2 VBG HCO3 VBG O2 Saturation VBG Base Excess Barometric Pressure Sodium Potassium Chloride Carbon Dioxide Anion Gap BUN Creatinine Est Cr Clr Drug Dosing Est GFR ( Amer) Est GFR (Non-Af Amer) BUN/Creatinine Ratio Glucose POC Glucose 175 H Estimat Average Glucose 192 Hemoglobin A1c 8.3 H Calcium Magnesium Total Bilirubin AST ALT Alkaline Phosphatase Troponin I NT-Pro-B Natriuret Pep Total Protein Albumin Globulin Albumin/Globulin Ratio Lipase Blood Type Antibody Screen Crossmatch Diagnostic Findings Chest x-ray obtained at the time of admission revealed cardiomegaly and prominent pulmonary vasculature without pulmonary edema ECG Additional Comments: Normal sinus rhythm _ (1) Chest pain Chest pain type: unspecified Ischemic chest pain type: Qualified Code(s): R07.9 - Chest pain, unspecified
--- NOTE | 2018-08-17 14:45 | Emergency Department Note ---
Entered by Trevor Mulligan acting as a scribe for Marco A Thomas MD History of Present Illness General Chief complaint: Chest Pain Stated complaint: CHEST PAIN WHEN WALKING, LOW O2, HEADACHE Time Seen by Provider: 08/16/18 19:05 Source: patient History of Present Illness Onset (ago): day(s) (past few) Location: chest Pain Consistency: + other (exertional) Quality: + other (exertional chest pain and shortness of breath) Relieved By: + rest Exacerbated By: + other (exertion) Associated symptoms: no cough and no other (urinary symptoms) The patient is a 62 year old white female with a history of reflux, CHF, chronic supplemental oxygen use, and diabetes who presents to the Emergency Room with complaints of worsening exertional chest pain and shortness of breath in the past few days. The patient reports that she has been wearing supplemental oxygen at all times. She notes that when she is sitting down she is mostly asymptomatic, but when she tries to walk, even in place, she becomes very short of breath and develops �pounding� center chest without radiation. She notes that after walking to the bathroom here, her oxygen levels dropped to 74%. She currently does not feel very short of breath but still has the chest pain from walking. She notes that earlier today �I took the oxygen off, sang half a song, and then a severe headache came up the back of my neck and across the forehead.� She states that she was sent today after calling Dr. Ruiz � Pulmonology. She notes that she follows Dr. Quintero � Cardiology. She denies coughing, changes in baseline leg swelling, changes in diet, urinary symptoms, or missed medication doses. She states that she was temporarily taken off of Lasix, gained five pounds a few weeks ago, and is now taking it again. She notes that she sleeps in a chair. Home Medications Home Medications Medication Instructions Recorded Confirmed Type aspirin [Aspir-81] 81 mg PO QAM 03/25/18 08/16/18 History fluticasone [24 Hour Allergy 2 spray INTRANASAL DAILY PRN 03/25/18 08/16/18 History Relief] montelukast 10 mg PO PM 03/25/18 08/16/18 History levalbuterol tartrate [Xopenex HFA] 2 inh INHALATION Q4H PRN 06/25/18 08/16/18 History levothyroxine 75 mcg PO QAM 06/25/18 08/16/18 History losartan 50 mg PO QAM 06/25/18 08/16/18 History rosuvastatin [Crestor] 40 mg PO PM 06/25/18 08/16/18 History epinephrine [EpiPen] 0.3 mg IM DIRECTED PRN 08/16/18 08/16/18 History fluticasone-salmeterol [Advair 1 puff INHALATION BID 08/16/18 08/16/18 History Diskus] furosemide 20 mg PO QAM 08/16/18 08/16/18 History insulin regular hum U-500 conc 100 units SUBCUT QAM 08/16/18 08/16/18 History [Humulin R U-500 (Conc) Kwikpen] insulin regular hum U-500 conc 120 units SUBCUT QPM 08/16/18 08/16/18 History [Humulin R U-500 (Conc) Kwikpen] levalbuterol HCl 0.31 mg INHALATION Q4H PRN 08/16/18 08/16/18 History ticagrelor [Brilinta] 90 mg PO BID 08/16/18 08/16/18 History Allergies Allergy/AdvReac Type Severity Reaction Status Date / Time shellfish derived Allergy Severe "SEAFOOD" Verified 08/16/18 21:13 -- HIVES and ANAPHLYAXIS sulfite Allergy Severe HIVES AND Verified 08/16/18 21:13 THROAT CLOSES Iodinated Contrast- Oral and Allergy Unknown UNKNOWN Verified 08/16/18 21:13 IV Dye iodine Allergy Unknown Unknown Verified 08/16/18 21:13 Past Med/Surg History Medical History Diabetes (Chronic) GERD (gastroesophageal reflux disease) (Chronic) Diverticulitis (Resolved) Thyroid cancer (Resolved) Acute respiratory failure with hypoxia CHF (congestive heart failure) Family History Other No pertinent family history Social History Current Living Situation: Spouse Other Information That Helps Us Care for You: No Feels Safe at Home: Yes Safety Concerns: Feels Safe At This Time Smoking Status: Never smoker Hx Alcohol Use: No Beliefs That Will Affect Care: None Preferred Language: Macedonian 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 Ability: Effective 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 and A total of 10 systems reviewed and were otherwise negative Physical Exam Vital Signs Vital Signs - 24 hr 08/16/18 17:08 08/16/18 19:59 08/16/18 20:02 Temperature 36.6 C Temperature Source Oral Sepsis Recent Fever Within 48 Hours No Sepsis New/Unexplained Change in Mental Status No Sepsis Action Taken by Nursing No Action Required Pulse Rate 89 Pulse Rate [Right Radial] 91 H Pulse Rhythm Pulse Rhythm [Right Radial] Pulse Strength Pulse Strength [Right Radial] Respiratory Rate 20 Respiratory Effort / Characteristics Respiratory Depth Normal Respiratory Pattern Blood Pressure 111/50 L Blood Pressure [Left Arm] Blood Pressure [Right Arm] Blood Pressure Mean 70 Blood Pressure Mean [Left Arm] Blood Pressure Mean [Right Arm] Blood Pressure Position Sitting Blood Pressure Position [Left Arm] Blood Pressure Position [Right Arm] Pulse Oximetry 100 100 100 Oxygen Delivery Method Nasal Cannula Nasal Cannula Nasal Cannula Oxygen Flow Rate 2 2 2 08/16/18 22:00 08/17/18 00:00 08/17/18 00:26 Temperature Temperature Source Sepsis Recent Fever Within 48 Hours Sepsis New/Unexplained Change in Mental Status Sepsis Action Taken by Nursing Pulse Rate 90 Pulse Rate [Right Radial] 93 H 90 Pulse Rhythm Pulse Rhythm [Right Radial] Pulse Strength Pulse Strength [Right Radial] Respiratory Rate 29 H Respiratory Effort / Characteristics Respiratory Depth Respiratory Pattern Blood Pressure 140/55 L Blood Pressure [Left Arm] Blood Pressure [Right Arm] 129/32 L 140/55 L Blood Pressure Mean Blood Pressure Mean [Left Arm] Blood Pressure Mean [Right Arm] 64 83 Blood Pressure Position Blood Pressure Position [Left Arm] Blood Pressure Position [Right Arm] Pulse Oximetry 100 99 Oxygen Delivery Method Nasal Cannula Nasal Cannula Nasal Cannula Oxygen Flow Rate 2 2 2 08/17/18 00:35 08/17/18 03:00 08/17/18 03:15 Temperature 36.4 C L 37 C 37 C Temperature Source Oral Oral Oral Sepsis Recent Fever Within 48 Hours Sepsis New/Unexplained Change in Mental Status Sepsis Action Taken by Nursing Pulse Rate 90 91 H Pulse Rate [Right Radial] 85 Pulse Rhythm Regular Regular Pulse Rhythm [Right Radial] Pulse Strength Normal Normal Pulse Strength [Right Radial] Respiratory Rate 22 18 18 Respiratory Effort / Characteristics SOB on Exertion Respiratory Depth Respiratory Pattern Tachypnea Blood Pressure 92/62 L 90/57 L Blood Pressure [Left Arm] Blood Pressure [Right Arm] 138/75 Blood Pressure Mean 72 68 Blood Pressure Mean [Left Arm] Blood Pressure Mean [Right Arm] 96 Blood Pressure Position Lying Lying Blood Pressure Position [Left Arm] Blood Pressure Position [Right Arm] Pulse Oximetry 95 2 L 2 L Oxygen Delivery Method Nasal Cannula Oxygen Flow Rate 2 98 08/17/18 03:30 08/17/18 03:41 08/17/18 03:49 Temperature 36.7 C 37 C Temperature Source Oral Oral Sepsis Recent Fever Within 48 Hours Sepsis New/Unexplained Change in Mental Status Sepsis Action Taken by Nursing Pulse Rate 91 H 91 H 90 Pulse Rate [Right Radial] Pulse Rhythm Regular Regular Pulse Rhythm [Right Radial] Pulse Strength Normal Normal Pulse Strength [Right Radial] Respiratory Rate 18 16 Respiratory Effort / Characteristics Respiratory Depth Respiratory Pattern Blood Pressure 106/65 106/65 Blood Pressure [Left Arm] Blood Pressure [Right Arm] Blood Pressure Mean 78 78 Blood Pressure Mean [Left Arm] Blood Pressure Mean [Right Arm] Blood Pressure Position Lying Lying Blood Pressure Position [Left Arm] Blood Pressure Position [Right Arm] Pulse Oximetry 100 99 Oxygen Delivery Method Oxygen Flow Rate 2 08/17/18 04:00 08/17/18 04:25 08/17/18 05:11 Temperature 37 C 37 C 37 C Temperature Source Oral Oral Oral Sepsis Recent Fever Within 48 Hours Sepsis New/Unexplained Change in Mental Status Sepsis Action Taken by Nursing Pulse Rate 93 H Pulse Rate [Right Radial] 91 H Pulse Rhythm Regular Regular Pulse Rhythm [Right Radial] Regular Pulse Strength Normal Normal Pulse Strength [Right Radial] Normal Respiratory Rate 18 16 18 Respiratory Effort / Characteristics Non-Labored Respiratory Depth Normal Respiratory Pattern Regular Blood Pressure 101/58 L 97/44 L Blood Pressure [Left Arm] Blood Pressure [Right Arm] 101/58 L Blood Pressure Mean 72 61 Blood Pressure Mean [Left Arm] Blood Pressure Mean [Right Arm] 72 Blood Pressure Position Sitting Lying Blood Pressure Position [Left Arm] Blood Pressure Position [Right Arm] Lying Pulse Oximetry 99 99 98 Oxygen Delivery Method Nasal Cannula Oxygen Flow Rate 2 2 08/17/18 08:00 08/17/18 08:54 08/17/18 10:36 Temperature 36.8 C 36.7 C Temperature Source Oral Oral Sepsis Recent Fever Within 48 Hours Sepsis New/Unexplained Change in Mental Status Sepsis Action Taken by Nursing Pulse Rate 93 H 87 Pulse Rate [Right Radial] 96 H Pulse Rhythm Regular Pulse Rhythm [Right Radial] Pulse Strength Normal Pulse Strength [Right Radial] Respiratory Rate 18 20 Respiratory Effort / Characteristics SOB on Exertion Respiratory Depth Respiratory Pattern Blood Pressure 102/56 L Blood Pressure [Left Arm] 130/53 L Blood Pressure [Right Arm] Blood Pressure Mean 71 Blood Pressure Mean [Left Arm] 78 Blood Pressure Mean [Right Arm] Blood Pressure Position Sitting Blood Pressure Position [Left Arm] Blood Pressure Position [Right Arm] Pulse Oximetry 98 96 Oxygen Delivery Method Nasal Cannula Oxygen Flow Rate 2 2 2 08/17/18 10:55 08/17/18 11:10 08/17/18 11:45 Temperature 36.9 C 36.5 C 36.9 C Temperature Source Oral Oral Oral Sepsis Recent Fever Within 48 Hours Sepsis New/Unexplained Change in Mental Status Sepsis Action Taken by Nursing Pulse Rate 88 90 Pulse Rate [Right Radial] 85 Pulse Rhythm Pulse Rhythm [Right Radial] Pulse Strength Pulse Strength [Right Radial] Respiratory Rate 20 20 16 Respiratory Effort / Characteristics Respiratory Depth Respiratory Pattern Blood Pressure 115/58 L 141/67 H Blood Pressure [Left Arm] 107/49 L Blood Pressure [Right Arm] Blood Pressure Mean 77 91 Blood Pressure Mean [Left Arm] 68 Blood Pressure Mean [Right Arm] Blood Pressure Position Sitting Sitting Blood Pressure Position [Left Arm] Lying Blood Pressure Position [Right Arm] Pulse Oximetry 99 98 100 Oxygen Delivery Method Nasal Cannula Oxygen Flow Rate 2 2 2.5 08/17/18 12:10 08/17/18 13:09 Temperature 36.6 C 36.8 C Temperature Source Oral Oral Sepsis Recent Fever Within 48 Hours Sepsis New/Unexplained Change in Mental Status Sepsis Action Taken by Nursing Pulse Rate 86 84 Pulse Rate [Right Radial] Pulse Rhythm Pulse Rhythm [Right Radial] Pulse Strength Pulse Strength [Right Radial] Respiratory Rate 20 16 Respiratory Effort / Characteristics Respiratory Depth Respiratory Pattern Blood Pressure 118/68 113/68 Blood Pressure [Left Arm] Blood Pressure [Right Arm] Blood Pressure Mean 84 83 Blood Pressure Mean [Left Arm] Blood Pressure Mean [Right Arm] Blood Pressure Position Sitting Sitting Blood Pressure Position [Left Arm] Blood Pressure Position [Right Arm] Pulse Oximetry 99 100 Oxygen Delivery Method Oxygen Flow Rate 2 2.5 GENERAL: Anxious appearing, well nourished, NAD, non-toxic, NC in place. EYE EXAM: Normal conjunctiva. PERRL, no anisocoria and EOM's grossly intact w/o pain. OROPHARYNX: No exudate, posterior pharynx is clear, no tonsillar/uvular deviation or swelling. NECK: Supple, no nuchal rigidity, no adenopathy, non-tender. No signs of meningismus. LUNGS: Clear to auscultation bilaterally. Normal chest wall mechanics. HEART: NSR, no MRG. ABDOMEN: Abdomen soft, non-tender, normo-active bowel sounds, no masses, no rebound or guarding. BACK: No CVA TTP. SKIN: No rashes and no bruising. UPPER EXTREMITIES: Upper extremities are grossly normal. LOWER EXTREMITIES: Trace pretibial edema. No calf pain. NEURO EXAM: Cranial nerves II-XII grossly intact, normal speech, 5/5 strength in b/l upper and lower extremities, moves all 4 extremities without issue on command. RECTAL: Heme-positive stool. Course 1918: Past medical records reviewed. The patient was evaluated in room C7, and a complete history and physical examination were performed. 2144: The patient reports that she has been having dark and tarry stool. 3: A rectal exam was performed with a airdox fitter present, and it showed Heme- positive stool. 2210: I obtained the patient�s consent for blood transfusion. 2250: I consulted Dr. Nixon � [facility] Hospitalist. He will reevaluate the patient for hospitalization. Consultations Consultation #1: I consulted Dr. Nixon � [facility] Hospitalist. He will reevaluate the patient for hospitalization. Time: 22:50 Administered Medications Pantoprazole Sodium 40 mg/ (Dextrose) 100 mls @ 20 mls/hr IV Q5H LEONA Stop: 09/15/18 22:14 Last Admin: 08/17/18 13:44 Dose: 20 mls/hr Infusion: 08/17/18 13:44 Dose: 20 mls/hr Admin: 08/17/18 08:44 Dose: 20 mls/hr Infusion: 08/17/18 07:57 Dose: 20 mls/hr Admin: 08/17/18 02:57 Dose: 20 mls/hr Infusion: 08/17/18 02:57 Dose: 20 mls/hr Admin: 08/16/18 22:34 Dose: 20 mls/hr Insulin Aspart (Novolog Flexpen) 0 units SC Q6 LEONA Stop: 09/16/18 05:59 Last Admin: 08/17/18 14:29 Dose: 11 units Admin: 08/17/18 07:26 Dose: Not Given Levothyroxine Sodium (Synthroid) 75 mcg PO DAILYBB LEONA Stop: 09/16/18 06:29 Last Admin: 08/17/18 06:36 Dose: Not Given Losartan Potassium (Cozaar) 50 mg PO QAM LEONA Stop: 09/16/18 08:59 Last Admin: 08/17/18 12:16 Dose: 50 mg Fluticasone/Salmeterol (Advair Diskus 250/50) 1 puffs INH BID LEONA Stop: 09/16/18 08:59 Last Admin: 08/17/18 07:57 Dose: 1 puffs Discontinued Medications Dextrose (Dextrose 50%) Confirm Administered Dose 50 ml IV .STK-MED ONE Stop: 08/17/18 00:58 Last Admin: 08/17/18 01:05 Dose: 25 ml Glucose (Glucose 40%) 15 gm PO NOW STA Stop: 08/17/18 03:25 Last Admin: 08/17/18 03:53 Dose: 15 gm Pantoprazole Sodium (Protonix Bolus/Drip) 0 mls @ 1 mls/hr IV ONE STA Stop: 08/16/18 22:02 Last Admin: 08/16/18 22:34 Dose: 1 mls/hr Pantoprazole Sodium 80 mg/ (Dextrose) 120 mls @ 400 mls/hr IV NOW ONE Stop: 08/16/18 22:18 Last Infusion: 08/16/18 22:55 Dose: 0 mls/hr Admin: 08/16/18 22:33 Dose: 400 mls/hr Potassium Chloride (K Jesse / Wtr) 10 meq in 100 mls @ 100 mls/hr IV Q1H LEONA Stop: 08/17/18 05:48 Last Admin: 08/17/18 07:55 Dose: 100 mls/hr Infusion: 08/17/18 06:20 Dose: Admin: 08/17/18 06:18 Dose: 75 mls/hr Infusion: 08/17/18 05:39 Dose: Admin: 08/17/18 04:41 Dose: 50 mls/hr Infusion: 08/17/18 04:41 Dose: 50 mls/hr Admin: 08/17/18 03:15 Dose: 50 mls/hr Furosemide 20 mg/ Syringe 2 mls @ 4 mls/min IV 1100 ONE Stop: 08/17/18 11:01 Last Admin: 08/17/18 12:15 Dose: 4 mls/min Insulin Glargine (Lantus Solostar Pen) 25 units SC BID LEONA; Protocol Stop: 09/16/18 08:59 Last Admin: 08/17/18 09:18 Dose: 25 units Medical Decision Making Medical Records Attestation: I reviewed the patient's medical records. Home Medications Current Medication List: was personally reviewed by me Laboratory Data Attestation: I reviewed the patient's lab results. Result diagrams: 08/17/18 07:06 08/17/18 07:06 Lab Results 08/16/18 08/16/18 08/16/18 Range/Units 20:08 20:10 20:10 WBC 12.51 H (4.8-10.8) K/uL RBC 2.72 L (4.2-5.4) M/uL Hgb 7.1 L (12.0-16.0) g/dL Hct 23.4 L (37-47) % MCV 86.0 (80-100) fL MCH 26.1 (25-34) pg MCHC 30.3 L (32-36) g/dL RDW Std Deviation 58.4 H (36.4-46.3) fL RDW Coeff of Cherelle 18.8 H (11.5-14.5) % Plt Count 313 (130-400) K/uL MPV 9.6 (7.4-10.4) fL Immature Gran % (Auto) 0.6 % Neut % (Auto) 63.8 % Lymph % (Auto) 25.5 % Benson % (Auto) 8.1 % Eos % (Auto) 1.8 % Baso % (Auto) 0.2 % Immature Gran # (Auto) 0.07 H (0.00-0.02) K/uL Neut # (Auto) 7.98 H (1.4-6.5) K/uL Lymph # (Auto) 3.19 (1.2-3.4) K/uL Benson # (Auto) 1.01 H (0.11-0.59) K/uL Eos # (Auto) 0.23 (0-0.5) K/uL Baso # (Auto) 0.03 (0-0.2) K/uL Absolute Nucleated RBC 0.03 H (0-0) K/uL Nucleated RBC % (auto) 0.3 % Polychromasia 1+ Hypochromasia Present Stomatocytes 1+ PT 11.4 (9.0-12.0) Seconds INR 1.1 (0.9-1.1) APTT 26.5 (21.0-31.0) Seconds PTT Ratio 1.0 VBG pH 7.37 (7.36-7.41) VBG pCO2 49 (38-50) mmHg VBG pO2 28 mmHg VBG HCO3 28 mmol/L VBG O2 Saturation < 60.0 % VBG Base Excess 2.4 mEq/L Barometric Pressure 734.8 mm/Hg Sodium (136-145) mmol/L Potassium (3.5-5.1) mmol/L Chloride (98-107) mmol/L Carbon Dioxide (21-32) mmol/L Anion Gap (3-11) BUN (7-18) mg/dl Creatinine (0.6-1.2) mg/dl Est Cr Clr Drug Dosing ml/min Est GFR ( Amer) Est GFR (Non-Af Amer) BUN/Creatinine Ratio (10-20) Glucose (70-99) mg/dl POC Glucose (70-99) Estimat Average Glucose mg/dl Hemoglobin A1c (4.5-5.6) % Calcium (8.5-10.1) mg/dl Magnesium (1.8-2.4) mg/dl Total Bilirubin (0.2-1) mg/dl AST (15-37) U/L ALT (12-78) U/L Alkaline Phosphatase (45-117) U/L Troponin I (0-0.045) ng/ml NT-Pro-B Natriuret Pep (0-900) pg/ml Total Protein (6.4-8.2) gm/dl Albumin (3.4-5.0) gm/dl Globulin (2.5-4.0) gm/dl Albumin/Globulin Ratio (0.9-2) Lipase (73-393) U/L Blood Type Antibody Screen Crossmatch 01/08/16/18 08/17/18 Range/Units 20:10 22:31 00:48 WBC (4.8-10.8) K/uL RBC (4.2-5.4) M/uL Hgb (12.0-16.0) g/dL Hct (37-47) % MCV (80-100) fL MCH (25-34) pg MCHC (32-36) g/dL RDW Std Deviation (36.4-46.3) fL RDW Coeff of Cherelle (11.5-14.5) % Plt Count (130-400) K/uL MPV (7.4-10.4) fL Immature Gran % (Auto) % Neut % (Auto) % Lymph % (Auto) % Benson % (Auto) % Eos % (Auto) % Baso % (Auto) % Immature Gran # (Auto) (0.00-0.02) K/uL Neut # (Auto) (1.4-6.5) K/uL Lymph # (Auto) (1.2-3.4) K/uL Benson # (Auto) (0.11-0.59) K/uL Eos # (Auto) (0-0.5) K/uL Baso # (Auto) (0-0.2) K/uL Absolute Nucleated RBC (0-0) K/uL Nucleated RBC % (auto) % Polychromasia Hypochromasia Stomatocytes PT (9.0-12.0) Seconds INR (0.9-1.1) APTT (21.0-31.0) Seconds PTT Ratio VBG pH (7.36-7.41) VBG pCO2 (38-50) mmHg VBG pO2 mmHg VBG HCO3 mmol/L VBG O2 Saturation % VBG Base Excess mEq/L Barometric Pressure mm/Hg Sodium 137 (136-145) mmol/L Potassium 3.4 L (3.5-5.1) mmol/L Chloride 102 (98-107) mmol/L Carbon Dioxide 27 (21-32) mmol/L Anion Gap 8.0 (3-11) BUN 32 H (7-18) mg/dl Creatinine 1.43 H (0.6-1.2) mg/dl Est Cr Clr Drug Dosing 54.2 ml/min Est GFR ( Amer) 45.4 Est GFR (Non-Af Amer) 39.2 BUN/Creatinine Ratio 22.4 H (10-20) Glucose 59 L (70-99) mg/dl POC Glucose 61 L* (70-99) Estimat Average Glucose mg/dl Hemoglobin A1c (4.5-5.6) % Calcium 9.3 (8.5-10.1) mg/dl Magnesium 2.5 H (1.8-2.4) mg/dl Total Bilirubin 0.3 (0.2-1) mg/dl AST 11 L (15-37) U/L ALT 20 (12-78) U/L Alkaline Phosphatase 93 (45-117) U/L Troponin I < 0.015 (0-0.045) ng/ml NT-Pro-B Natriuret Pep 70 (0-900) pg/ml Total Protein 7.9 (6.4-8.2) gm/dl Albumin 3.0 L (3.4-5.0) gm/dl Globulin 4.9 H (2.5-4.0) gm/dl Albumin/Globulin Ratio 0.6 L (0.9-2) Lipase 186 (73-393) U/L Blood Type A Positive Antibody Screen NEGATIVE Crossmatch See Detail 08/17/18 08/17/18 08/17/18 Range/Units 01:17 03:19 04:00 WBC (4.8-10.8) K/uL RBC (4.2-5.4) M/uL Hgb (12.0-16.0) g/dL Hct (37-47) % MCV (80-100) fL MCH (25-34) pg MCHC (32-36) g/dL RDW Std Deviation (36.4-46.3) fL RDW Coeff of Cherelle (11.5-14.5) % Plt Count (130-400) K/uL MPV (7.4-10.4) fL Immature Gran % (Auto) % Neut % (Auto) % Lymph % (Auto) % Benson % (Auto) % Eos % (Auto) % Baso % (Auto) % Immature Gran # (Auto) (0.00-0.02) K/uL Neut # (Auto) (1.4-6.5) K/uL Lymph # (Auto) (1.2-3.4) K/uL Benson # (Auto) (0.11-0.59) K/uL Eos # (Auto) (0-0.5) K/uL Baso # (Auto) (0-0.2) K/uL Absolute Nucleated RBC (0-0) K/uL Nucleated RBC % (auto) % Polychromasia Hypochromasia Stomatocytes PT (9.0-12.0) Seconds INR (0.9-1.1) APTT (21.0-31.0) Seconds PTT Ratio VBG pH (7.36-7.41) VBG pCO2 (38-50) mmHg VBG pO2 mmHg VBG HCO3 mmol/L VBG O2 Saturation % VBG Base Excess mEq/L Barometric Pressure mm/Hg Sodium (136-145) mmol/L Potassium (3.5-5.1) mmol/L Chloride (98-107) mmol/L Carbon Dioxide (21-32) mmol/L Anion Gap (3-11) BUN (7-18) mg/dl Creatinine (0.6-1.2) mg/dl Est Cr Clr Drug Dosing ml/min Est GFR ( Amer) Est GFR (Non-Af Amer) BUN/Creatinine Ratio (10-20) Glucose (70-99) mg/dl POC Glucose 93 72 81 (70-99) Estimat Average Glucose mg/dl Hemoglobin A1c (4.5-5.6) % Calcium (8.5-10.1) mg/dl Magnesium (1.8-2.4) mg/dl Total Bilirubin (0.2-1) mg/dl AST (15-37) U/L ALT (12-78) U/L Alkaline Phosphatase (45-117) U/L Troponin I (0-0.045) ng/ml NT-Pro-B Natriuret Pep (0-900) pg/ml Total Protein (6.4-8.2) gm/dl Albumin (3.4-5.0) gm/dl Globulin (2.5-4.0) gm/dl Albumin/Globulin Ratio (0.9-2) Lipase (73-393) U/L Blood Type Antibody Screen Crossmatch 08/17/18 08/17/18 08/17/18 Range/Units 06:38 07:06 07:06 WBC 12.12 H (4.8-10.8) K/uL RBC 2.69 L (4.2-5.4) M/uL Hgb 7.1 L (12.0-16.0) g/dL Hct 23.0 L (37-47) % MCV 85.5 (80-100) fL MCH 26.4 (25-34) pg MCHC 30.9 L (32-36) g/dL RDW Std Deviation 57.8 H (36.4-46.3) fL RDW Coeff of Cherelle 18.5 H (11.5-14.5) % Plt Count 269 (130-400) K/uL MPV 9.2 (7.4-10.4) fL Immature Gran % (Auto) 0.6 % Neut % (Auto) 67.2 % Lymph % (Auto) 23.6 % Benson % (Auto) 6.8 % Eos % (Auto) 1.6 % Baso % (Auto) 0.2 % Immature Gran # (Auto) 0.07 H (0.00-0.02) K/uL Neut # (Auto) 8.15 H (1.4-6.5) K/uL Lymph # (Auto) 2.86 (1.2-3.4) K/uL Benson # (Auto) 0.83 H (0.11-0.59) K/uL Eos # (Auto) 0.19 (0-0.5) K/uL Baso # (Auto) 0.02 (0-0.2) K/uL Absolute Nucleated RBC (0-0) K/uL Nucleated RBC % (auto) % Polychromasia 1+ Hypochromasia Stomatocytes PT (9.0-12.0) Seconds INR (0.9-1.1) APTT (21.0-31.0) Seconds PTT Ratio VBG pH (7.36-7.41) VBG pCO2 (38-50) mmHg VBG pO2 mmHg VBG HCO3 mmol/L VBG O2 Saturation % VBG Base Excess mEq/L Barometric Pressure mm/Hg Sodium 138 (136-145) mmol/L Potassium 4.1 D (3.5-5.1) mmol/L Chloride 105 (98-107) mmol/L Carbon Dioxide 25 (21-32) mmol/L Anion Gap 8.0 (3-11) BUN 28 H (7-18) mg/dl Creatinine 1.31 H (0.6-1.2) mg/dl Est Cr Clr Drug Dosing 59.4 ml/min Est GFR ( Amer) 50.4 Est GFR (Non-Af Amer) 43.5 BUN/Creatinine Ratio 21.0 H (10-20) Glucose 107 H (70-99) mg/dl POC Glucose 124 H (70-99) Estimat Average Glucose mg/dl Hemoglobin A1c (4.5-5.6) % Calcium 9.1 (8.5-10.1) mg/dl Magnesium (1.8-2.4) mg/dl Total Bilirubin (0.2-1) mg/dl AST (15-37) U/L ALT (12-78) U/L Alkaline Phosphatase (45-117) U/L Troponin I (0-0.045) ng/ml NT-Pro-B Natriuret Pep (0-900) pg/ml Total Protein (6.4-8.2) gm/dl Albumin (3.4-5.0) gm/dl Globulin (2.5-4.0) gm/dl Albumin/Globulin Ratio (0.9-2) Lipase (73-393) U/L Blood Type Antibody Screen Crossmatch 08/17/18 08/17/18 08/17/18 Range/Units 07:06 07:06 12:27 WBC (4.8-10.8) K/uL RBC (4.2-5.4) M/uL Hgb 7.3 L (12.0-16.0) g/dL Hct 23.8 L (37-47) % MCV (80-100) fL MCH (25-34) pg MCHC (32-36) g/dL RDW Std Deviation (36.4-46.3) fL RDW Coeff of Cherelle (11.5-14.5) % Plt Count (130-400) K/uL MPV (7.4-10.4) fL Immature Gran % (Auto) % Neut % (Auto) % Lymph % (Auto) % Benson % (Auto) % Eos % (Auto) % Baso % (Auto) % Immature Gran # (Auto) (0.00-0.02) K/uL Neut # (Auto) (1.4-6.5) K/uL Lymph # (Auto) (1.2-3.4) K/uL Benson # (Auto) (0.11-0.59) K/uL Eos # (Auto) (0-0.5) K/uL Baso # (Auto) (0-0.2) K/uL Absolute Nucleated RBC (0-0) K/uL Nucleated RBC % (auto) % Polychromasia Hypochromasia Stomatocytes PT (9.0-12.0) Seconds INR (0.9-1.1) APTT (21.0-31.0) Seconds PTT Ratio VBG pH (7.36-7.41) VBG pCO2 (38-50) mmHg VBG pO2 mmHg VBG HCO3 mmol/L VBG O2 Saturation % VBG Base Excess mEq/L Barometric Pressure mm/Hg Sodium (136-145) mmol/L Potassium (3.5-5.1) mmol/L Chloride (98-107) mmol/L Carbon Dioxide (21-32) mmol/L Anion Gap (3-11) BUN (7-18) mg/dl Creatinine (0.6-1.2) mg/dl Est Cr Clr Drug Dosing ml/min Est GFR ( Amer) Est GFR (Non-Af Amer) BUN/Creatinine Ratio (10-20) Glucose (70-99) mg/dl POC Glucose 175 H (70-99) Estimat Average Glucose 192 mg/dl Hemoglobin A1c 8.3 H (4.5-5.6) % Calcium (8.5-10.1) mg/dl Magnesium (1.8-2.4) mg/dl Total Bilirubin (0.2-1) mg/dl AST (15-37) U/L ALT (12-78) U/L Alkaline Phosphatase (45-117) U/L Troponin I (0-0.045) ng/ml NT-Pro-B Natriuret Pep (0-900) pg/ml Total Protein (6.4-8.2) gm/dl Albumin (3.4-5.0) gm/dl Globulin (2.5-4.0) gm/dl Albumin/Globulin Ratio (0.9-2) Lipase (73-393) U/L Blood Type Antibody Screen Crossmatch Imaging Data Radiologist's Impression: Radiology results as stated below per my review and the radiologist's interpretation: XR chest 1V portable CLINICAL HISTORY: 62 years-old Female presenting with Chest Pain. TECHNIQUE: Portable upright AP view of the chest was obtained. COMPARISON: . FINDINGS: Cardiac silhouette mildly enlarged. Pulmonary vascular prominence. Bronchial wall cuffing. No focal lung opacity. No large effusion or pneumothorax. Osseous structures normal. Upper abdomen normal. IMPRESSION: 1. Mild cardiomegaly with volume overload/congestive change. No lita pulmonary edema at this time. Electronically signed by: Shaheen Costa M.D. 08/16/2018 7:56 PM ECG Data Attestation: I personally reviewed and interpreted this ECG as follows: Indication: chest pain and SOB/dyspnea Rate (beats per minute): 96 Rhythm: normal sinus Findings: + other (normal intervals, normal axis); no ST depression and no ST elevation Blood Pressure Blood Pressure Findings: Low blood pressure Blood Pressure Disposition: further management by hospitalist [facility] Narrative Prior records/ancillary studies reviewed. Triage nursing notes reviewed. The patient is a 62 year old white female with a history of reflux, CHF, chronic supplemental oxygen use, and diabetes who presents to the Emergency Room with complaints of worsening exertional chest pain and shortness of breath in the past few days. Differential diagnosis: Etiologies such as cardiac ischemia, aortic dissection, pulmonary embolism, pneumonia, pneumothorax, musculoskeletal, infections, pericarditis, myocarditis , esophageal rupture, gastrointestinal, as well as others were entertained. Patient was seen and evaluated the bedside. The patient was complaining some chronic shortness of breath and exertional dyspnea. The patient did have blood work completed which showed that the patient has had a four-point drop her hemoglobin. The patient did have a heme positive rectal. The patient is on ASA and Brilinta given her history of CAD status post stenting. Patient was consented and ordered 1 unit of PRBCs as well as a PPI bolus and drip. I did speak with the on-call hospitalist who agreed to further evaluate treat the patient. The patient was admitted to the medicine service. Impression & Plan GI bleeding, Symptomatic anemia, Shortness of breath Critical Care Time I have personally spent 60 minutes of critical care time in the direct management of this patient. This includes bedside care, interpretation of diagnostic studies, and testing, discussion with consultants, patient, and family members, and other required patient management activities. This 60 minutes is in excess of all separately billable procedures. Critical Care Time: Yes Total Critical Care Time: 60 Discharge Plan Visit Data *Final* Discharge Date/Time: 08/17/18 00:26 Chief Complaint: Chest Pain Stated Complaint: CHEST PAIN WHEN WALKING, LOW O2, HEADACHE ED Provider: Marco A Thomas Discharge Problem: GI bleeding, Symptomatic anemia, Shortness of breath Patient Disposition: Admitted As Inpatient Discharge Instructions Interventions: ED Discharge Assessment Last Done: 08/17/18 00:26 The scribe's documentation has been prepared under my direction and personally reviewed by me in its entirety. I confirm that the note above accurately reflects all work, treatment, procedures, and medical decision making performed by me.
[2018-08-17 16:43] LABS: Hematocrit (blood only) 26.4 % (37-47); Hemoglobin 8.1 g/dL (12.0-16.0)
[2018-08-17] MEDS: ROSUVASTATIN CALCIUM 20 MG TAB PO SCH (21:14)
[2018-08-17] MEDS: MONTELUKAST SODIUM 10 MG TABLET PO SCH (21:14)
[2018-08-17] MEDS: INSULIN GLARGINE SOLOSTAR 100 UNITS/ML 3 ML PEN SC SCH (21:15)
[2018-08-18] MEDS: PANTOprazole 40 MG in DEXTROSE 5% 100 ML IV SCH ×4 (04:53→19:54)
[2018-08-18] MEDS: LEVOTHYROXINE SODIUM 75 MCG TABLET PO SCH ×2 (04:53→11:56)
[2018-08-18] MEDS ORDERED: INSULIN ASPART 100 UNITS/ML 3 ML PEN SC SCH ×2 (06:00)
[2018-08-18] MEDS: FLUTICASONE/SALMETEROL 250/50 (ADVAIR) 14 PUFF/1 INHALER INH SCH ×2 (07:46→20:26)
[2018-08-18 08:39] LABS: Hematocrit (blood only) 25.5 % (37-47); Hemoglobin 7.8 g/dL (12.0-16.0); Mean Corpuscular Hgb Conc 30.6 g/dL (32-36); Mean Corpuscular Volume 85.9 fL (80-100); Platelet Count 315 K/uL (130-400); RDW Coefficient of Variation 18.3 % (11.5-14.5); RDW Standard Deviation 57.1 fL (36.4-46.3); Red Blood Count 2.97 M/uL (4.2-5.4); White Blood Count 11.09 K/uL (4.8-10.8)
--- NOTE | 2018-08-18 08:44 | Gastroenterology Progress Note ---
Date of Service August 18, 2018 Assessment & Plan (1) Anemia: 62-year-old female with both heart and lung disease on chronic oxygen therapy presenting with what appears to be symptomatic anemia with possible recent melena. Fortunately she is no longer having any active complaints or issues that would be consistent with ongoing acute GI bleeding. On both exam as well as chest x- ray she does seem to be volume overloaded which certainly could be contributing to her symptoms as well as her blood count. She has not been taken any offending medications that is noted. Doing well no signs of bleeding will make n.p.o. after midnight continue IV PPI and plan for EGD tomorrow with Dr. Laci Wagoner Call with questions, concerns, or change in clinical status. Thank you for consultation Subjective Patient recieived one additional unit of PRBC's yesterday after seeing. Hb responded appropriately VSS all improved Physical Exam 2 Vital Signs (Past 24 Hours): Last Vital Signs Temp 36.7 C 08/18/18 03:41 Pulse 72 08/18/18 03:41 Resp 18 08/18/18 03:41 BP 124/61 08/18/18 03:41 Pulse Ox 92 08/18/18 03:41 A and O x 3 CHRISTOPHER NAD RRR Mildly diminshed BS NABS/SOFT/NT/ND 3+ edema Mild Anasarca
[2018-08-18] MEDS ORDERED: INSULIN GLARGINE SOLOSTAR 100 UNITS/ML 3 ML PEN SC ONE (09:00)
[2018-08-18 09:27] LABS: BUN Creatinine Ratio 14.9 (10-20); Calcium 9.2 mg/dl (8.5-10.1); Creatinine Clr Calc Pharmacy 57.4 ml/min; Est GFR (African American) 48.6; Potassium 4.5 mmol/L (3.5-5.1)
--- NOTE | 2018-08-18 10:14 | Pharmacy Report ---
Pharmacy Glycemic Short Note 2 - Date of Service August 18, 2018 - Glycemic Short BSG Results (Last 24 hours): 08/17/18 08/17/18 08/17/18 12:27 16:49 21:07 Glucose POC Glucose 175 H 261 H 126 H 08/17/18 08/18/18 08/18/18 23:45 06:25 07:16 Glucose POC Glucose 148 H 155 H 172 H 08/18/18 08:25 Glucose 166 H POC Glucose OUTPATIENT ANTIDIABETIC REGIMEN: * U-500 100 units qAM, 120 units qPM * A1c = 8.3 % 08/17/18 ASSESSMENT: 08/18 * Ms. Molina received 81 units of insulin yesterday, 50 of this being basal * She had a small amount of po intake for lunch and dinner yesterday -> NPO this AM -> ordered type 2 diabetes diet for remainder of today -> will be NPO after midnight for EGD tomorrow * Fasting = 166 mg/dL; with minimal po intake, appears patient could tolerate more basal. Will increase by 10% for tonight's dose if BSGs remain above goal. Do not want to be overly aggressive with NPO status tomorrow. * Postprandial BSGs improved after Novolog parameters tightened last evening. Will continue same for now. 08/17 * Ms. Molina is a 62 y/o female admitted for possible GI bleed. She has a history of type 2 diabetes, managed with concentrated U-500 insulin as an outpatient. A1c drawn this AM indicates her control could be better but is not grossly elevated. * Upon admission, she was hypoglycemic and is only up to 124 mg/dL this AM after receiving her last dose of U-500 yesterday morning. * She remains NPO and may be going for an EGD tomorrow. May be advanced to liquid diet today. * Due to reduced insulin needs and NPO status, will switch U-500 insulin to basal/bolus therapy, based on est TDD of ~100 units (this is ~1/2 of outpatient dose). PLAN FOR INPATIENT GLYCEMIC CONTROL: * Continue to hold U-500 until po intake improves - currently requiring not even half of outpatient requirements * Basal insulin - increase slightly * Lantus 25 units x 1 this AM, then * Lantus BID per the following scale: * 25 units for BSG < 140 * 30 units for BSG 140 or above * Bolus insulin - no change * NovoLog per scale ACHS or Q6hrs while NPO * Goal Range: Low 110 mg/dL - High 140 mg/dL * Correction Factor: 12 mg/dL/unit * Nutritional / Prandial insulin per carb ratio of 1 unit per 4 grams CHO consumed PLAN FOR DISCHARGE: * see 08/17 note
[2018-08-18] MEDS: LOSARTAN POTASSIUM 50 MG TAB PO SCH (11:56)
[2018-08-18] MEDS: INSULIN ASPART 100 UNITS/ML 3 ML PEN SC SCH ×3 (13:03→21:12)
--- NOTE | 2018-08-18 13:15 | Hospitalist Progress Note ---
Date of Service August 18, 2018 Assessment & Plan (1) GI bleeding: GI bleed/Symptomatic anemia -holding asa/brillinta her drug eluting stent was summer -consult gi/consult cards in light of recent stent/regarding when to restart meds transfused 2 units prbc -On protonix drip -Continue crestor/losartan (2) Symptomatic anemia: acute blood loss anemia is stable but persistent melena (3) Shortness of breath: CHF/CVD must be chronic diastolic heart failure -does not appear to be fluid overloaded at this time -Last echo december 2017 shows EF of 60% -Hold asa/brillinta as above, continue crestor Chronic hypioxic respiratory failure Chronic Oxygen requirement -Uses 1L at rest, 2L on exertion for past year -continue xopenex, montelukast, levalbuterol, advair Obstructive sleep apnea with the need for BiPAP at night (4) Diabetes: long acting insulin and ssi (5) GERD (gastroesophageal reflux disease): has a history will continue on ppi (6) Thyroid cancer: Thyroid Cancer -s/p partial thyroidectomy -cont home meds -reports there are "new lesions"--follows with [facility] (7) Elevated serum creatinine: Elevated creatinine -Diabetic nephropathy -CKD stage IIIb based on eGFR from labs dating to october 2017. (8) Hypokalemia: replete Subjective Patient states she feels improved she is a fullness in her abdomen and fleeting pain in the right upper quadrant. Continues to have dark bowel movements but her hemoglobin has been stable Gay is not planning on pursuing endoscopy today but will advance her diet and have likely have endoscopy tomorrow Review of Systems ROS: well nourished well developed. No double vision blurry vision No problems with speech or swallowing No palpitations, chest pain or pressure No Wheezing has baseline dyspnea and wears oxygen at home Right upper quadrant abdominal pain and fullness with mild nausea but no vomiting persistent melena No burning urine urine frequency or changes in color No focal joint pain or muscle pain No skin rashes or oral lesions No unusual bruising or bleeding No focused back pain or numbness or loss of strength No changes in memory or confusion Physical Exam 2 Vital Signs (Past 24 Hours): Last Vital Signs Temp 36.5 C 08/18/18 11:38 Pulse 78 08/18/18 11:38 Resp 16 08/18/18 11:38 BP 116/70 01/27/19 11:38 Pulse Ox 100 08/18/18 11:38 The patient appeared well nourished and normally developed. She is morbidly obese Vital signs as documented. They have been stable Head exam is unremarkable. normocephalic, atraumatic Neck is without jugular venous distension, thyromegaly, or lymphademopathy Lungs are clear to auscultation and percussion. Cardiac exam reveals Rhythm is regular. First and second heart sounds normal. Abdominal exam reveals normal bowel sounds, no masses, no organomegaly her obesity prevents significant exam Extremities are chronically edematous with venous stasis changes Neurologic exam is A&Ox3, no focal deficits, strength is equal bilateral Psychologically seems neither anxious or depressed _ (1) GI bleeding GI bleed type/associated pathology: Gastritis type:
[2018-08-18] MEDS: MONTELUKAST SODIUM 10 MG TABLET PO SCH (20:25)
[2018-08-18] MEDS: ROSUVASTATIN CALCIUM 20 MG TAB PO SCH (20:25)
[2018-08-18] MEDS: INSULIN GLARGINE SOLOSTAR 100 UNITS/ML 3 ML PEN SC SCH (21:10)
[2018-08-19] MEDS: PANTOprazole 40 MG in DEXTROSE 5% 100 ML IV SCH ×4 (00:29→18:19)
[2018-08-19] MEDS: LEVOTHYROXINE SODIUM 75 MCG TABLET PO SCH (05:21)
[2018-08-19 07:55] LABS: Hematocrit (blood only) 26.5 % (37-47); Hemoglobin 8.1 g/dL (12.0-16.0); Mean Corpuscular Hgb Conc 30.6 g/dL (32-36); Mean Corpuscular Volume 86.9 fL (80-100); Mean Platelet Volume 9.3 fL (7.4-10.4); Platelet Count 277 K/uL (130-400); RDW Standard Deviation 57.3 fL (36.4-46.3); Red Blood Count 3.05 M/uL (4.2-5.4); White Blood Count 10.54 K/uL (4.8-10.8)
--- NOTE | 2018-08-19 08:22 | Hospitalist Progress Note ---
Date of Service August 19, 2018 Assessment & Plan (1) GI bleeding: GI bleed/Symptomatic anemia -holding asa/brillinta her drug eluting stent was summer -consulted gi/consult cards in light of recent stent/regarding when to restart meds -Gastro completed an EGD today (08/19) Will have colonscopy in AM. -Cardio states that patient had a newer gen Drug eluting stent which was placed in 2018. -May consider stopping Brillinta senior care. Recommend continuing ASA once workup for GI bleed has been completed. May consider restarting dual antiplatelet therapy. transfused 2 units prbc during hospital stay. -On protonix drip -Continue crestor/losartan Hemoglobin has been stable today 08/19 (2) Symptomatic anemia: acute blood loss anemia is stable but persistent melena (3) Shortness of breath: CHF/CVD must be chronic diastolic heart failure -does not appear to be fluid overloaded at this time -Last echo december 2017 shows EF of 60% -Hold asa/brillinta as above, continue crestor Chronic hypioxic respiratory failure Chronic Oxygen requirement -Uses 1L at rest, 2L on exertion for past year -continue xopenex, montelukast, levalbuterol, advair Obstructive sleep apnea with the need for BiPAP at night (4) Diabetes: long acting insulin and ssi (5) GERD (gastroesophageal reflux disease): has a history will continue on ppi (6) Thyroid cancer: Thyroid Cancer -s/p partial thyroidectomy -cont home meds -reports there are "new lesions"--follows with [facility] (7) Elevated serum creatinine: Elevated creatinine -Diabetic nephropathy -CKD stage IIIb based on eGFR from labs dating to october 2017. (8) Hypokalemia: replete Spent 35 minutes in managemnet of patient. Subjective Patient reports that she continues to have dark stools, but her frequency have decreased. She is scheduled for a colonoscopy in AM as she had an upper endoscopy today which was negative. Rechecked hemoglobin due to continued dark stools. Hemoglobin has been stable today. Patient also continues to report dizziness. Constitutional: + fatigue, + weakness and + weight gain Eyes: + diplopia (intermittent when feeling lightheaded) Respiratory: + dyspnea, + dyspnea on exertion and + stopping breathing during sleep (uses CPAP) Cardiovascular: + dyspnea, + dyspnea at rest, + dyspnea on exertion and + lightheadedness; no chest pain and no radiating jaw, neck or arm pain Gastrointestinal: + heartburn and + melena; no abdominal pain and no diarrhea/ loose stools Integumentary: + unusual bruising (recently had bruising on abdomen) Neurologic: + unsteadiness, + generalized weakness and + dizziness Endocrine: + fatigue and + problem reported (h/o thyroid ca, reports "new nodules") Physical Exam 2 Vital Signs (Past 24 Hours): Last Vital Signs Temp 36.7 C 08/19/18 07:26 Pulse 81 08/19/18 07:26 Resp 18 08/19/18 07:26 BP 137/62 08/19/18 07:26 Pulse Ox 97 08/19/18 07:26 Physical Exam: The patient appeared well nourished and normally developed. Morbidly obese. In distress at this time. Vital signs as documented. Head exam is unremarkable. normocephalic, atraumatic Neck is without jugular venous distension, thyromegaly, or lymphademopathy Lungs are diminished with basilar rales which clear with deep inspiration Cardiac exam reveals Rhythm is regular. First and second heart sounds normal. Abdominal exam reveals normal bowel sounds, no masses, no organomegaly she is nontender Extremities are chronically edematous compressive stockings are in place and both pedal pulses are present Neurologic exam is A&Ox3, no focal deficits, strength is equal bilateral Psychologically seems neither anxious or depressed Skin is warm Dry without bruises or lesions _ (1) GI bleeding GI bleed type/associated pathology: Gastritis type:
[2018-08-19 08:25] LABS: Albumin Level 2.9 gm/dl (3.4-5.0); Calcium 9.1 mg/dl (8.5-10.1); Creatinine Clr Calc Pharmacy 58.1 ml/min; Est GFR (African American) 49.5; Est GFR (Non-African American) 42.7; Potassium 4.4 mmol/L (3.5-5.1)
[2018-08-19 08:28] LABS: Albumin Globulin Ratio 0.7 (0.9-2); Bilirubin,Total 0.6 mg/dl (0.2-1); Globulin 4.4 gm/dl (2.5-4.0); Total Protein 7.3 gm/dl (6.4-8.2)
[2018-08-19] MEDS: INSULIN ASPART 100 UNITS/ML 3 ML PEN SC SCH ×4 (08:40→22:31)
[2018-08-19] MEDS: FLUTICASONE/SALMETEROL 250/50 (ADVAIR) 14 PUFF/1 INHALER INH SCH ×2 (08:40→22:24)
[2018-08-19] MEDS: LOSARTAN POTASSIUM 50 MG TAB PO SCH (08:41)
[2018-08-19] MEDS: INSULIN GLARGINE SOLOSTAR 100 UNITS/ML 3 ML PEN SC SCH ×2 (08:46→22:30)
--- NOTE | 2018-08-19 08:46 | Anesthesiology Consultation ---
Date of Service August 19, 2018 Assessment & Plan (1) Encounter for pre-operative examination: Chart Review Chart Review: Acceptable Risk for Surgery and Patient NOT seen in Pre Admission Testing Consults Requested none ASA ASA4 Proposed Anesthesia Anesthesia Type: MAC Risk / Benefits Reviewed With: PT / POA / Parent / Guardian, Accepts Plan and Informed Consent Obtained NPO Date Last Intake of Fluids: 08/19/18 Time Last Intake of Fluids: 09:00 Date Last Intake of Solids: 08/16/18 Time Last Intake of Solids: 11:00 History Surgery Operation Date: 08/19/18 08:15 Proposed Procedures p Esophagogastroduodenoscopy Dr Sandoval - Cali Sandoval MD Height/Weight Height: 5 ft Weight: 141.7 kg Allergies Allergy/AdvReac Type Severity Reaction Status Date / Time shellfish derived Allergy Severe "SEAFOOD" Verified 08/16/18 21:13 -- HIVES and ANAPHLYAXIS sulfite Allergy Severe HIVES AND Verified 08/16/18 21:13 THROAT CLOSES Iodinated Contrast- Oral and Allergy Unknown UNKNOWN Verified 08/16/18 21:13 IV Dye iodine Allergy Unknown Unknown Verified 08/16/18 21:13 Medications Home Medications Medication Instructions Recorded Confirmed Last Taken aspirin [Aspir-81] 81 mg PO QAM 03/25/18 08/16/18 08/16/18 fluticasone [24 Hour Allergy 2 spray INTRANASAL DAILY PRN 03/25/18 08/16/18 Unknown Relief] montelukast 10 mg PO PM 03/25/18 08/16/18 08/15/18 levalbuterol tartrate [Xopenex HFA] 2 inh INHALATION Q4H PRN 06/25/18 08/16/18 Unknown levothyroxine 75 mcg PO QAM 06/25/18 08/16/18 08/16/18 losartan 50 mg PO QAM 06/25/18 08/16/18 08/16/18 rosuvastatin [Crestor] 40 mg PO PM 06/25/18 08/16/18 08/15/18 epinephrine [EpiPen] 0.3 mg IM DIRECTED PRN 08/16/18 08/16/18 Unknown fluticasone-salmeterol [Advair 1 puff INHALATION BID 08/16/18 08/16/18 08/16/18 Diskus] AM DOSE furosemide 20 mg PO QAM 08/16/18 08/16/18 08/16/18 insulin regular hum U-500 conc 100 units SUBCUT QAM 08/16/18 08/16/18 08/16/18 [Humulin R U-500 (Conc) Kwikpen] insulin regular hum U-500 conc 120 units SUBCUT QPM 08/16/18 08/16/18 08/16/18 [Humulin R U-500 (Conc) Kwikpen] levalbuterol HCl 0.31 mg INHALATION Q4H PRN 08/16/18 08/16/18 Unknown ticagrelor [Brilinta] 90 mg PO BID 08/16/18 08/16/18 08/16/18 AM DOSE Active Medications Generic Name Dose Route Start Last Admin Trade Name Freq PRN Reason Stop Dose Admin Pantoprazole Sodium 40 mg/ 100 mls @ 20 mls/hr 08/16/18 22:15 08/19/18 08:49 Dextrose IV 09/15/18 22:14 0 mls/hr Q5H LEONA Infusion Insulin Aspart 0 units 08/18/18 11:30 08/19/18 08:40 Novolog Flexpen SC 09/17/18 11:29 5 units ACHS LEONA Administration Protocol Insulin Glargine 0 units 08/17/18 21:00 08/19/18 08:46 Lantus Solostar Pen SC 09/16/18 20:59 25 units BID LEONA Administration Protocol Levothyroxine Sodium 75 mcg 08/17/18 06:30 08/19/18 05:21 Synthroid PO 09/16/18 06:29 Not Given DAILYBB LEONA Losartan Potassium 50 mg 08/17/18 09:00 08/19/18 08:41 Cozaar PO 09/16/18 08:59 50 mg QAM LEONA Administration Montelukast Sodium 10 mg 08/17/18 21:00 08/18/18 20:25 Singulair PO 09/16/18 20:59 10 mg PM LEONA Administration Rosuvastatin Calcium 40 mg 08/17/18 21:00 08/18/18 20:25 Crestor PO 09/16/18 20:59 40 mg PM LEONA Administration Fluticasone/Salmeterol 1 puffs 08/17/18 09:00 08/19/18 08:40 Advair Diskus 250/50 INH 09/16/18 08:59 1 puffs BID LEONA Administration Past Medical History Medical History Diabetes (Chronic) GERD (gastroesophageal reflux disease) (Chronic) Diverticulitis (Resolved) Thyroid cancer (Resolved) Acute respiratory failure with hypoxia CHF (congestive heart failure) CAD S/P percutaneous coronary angioplasty (Chronic) Chronic respiratory failure (Chronic) 1 to 2 L oxygen Morbid obesity (Chronic) Past Family History Family History Other No pertinent family history Past Surgical History Surgical History H/O endoscopy H/O partial thyroidectomy History of colonoscopy History of percutaneous coronary intervention Past Anesthesia History No Hx of Anesthesia Complications single episode of low BP History of PONV No Motion Sickness Screening History of Motion Sickness: No Social History Smoking Status: Never smoker Do You Dip or Chew Tobacco: No Hx Alcohol Use: No Hx Substance Use: No Exercise / Class Metabolic Activity III < 4 Walking/Shop/Light housework Positive for CP and SOB Patient denies active symptoms of GERD. Denies N/V Physical Exam Vital Signs Last Vital Signs Temp 37.1 C 08/19/18 09:20 Pulse 83 08/19/18 09:20 Resp 20 08/19/18 09:20 BP 145/80 H 08/19/18 09:20 Pulse Ox 100 08/19/18 09:20 Constitutional + morbidly obese ENMT Mouth: no TMJ abnormality and oral opening not small Thyromental Distance: < 3.5 Finger Breadths Mallampati Class: II Mouth / Teeth: 2 1. Chipped 2. Chipped Neck normal visual inspection, + short neck and + thick neck; neck extension not limited Respiratory normal respiratory effort Auscultation: + wheezes (Right side) Cardiovascular Rate/Rhythm: regular rate and regular rhythm Heart Sounds: no murmur Psychiatric A+Ox3, euthymic affect Orientation: alert and oriented x 3 Testing Electrocardiogram Date: 08/16/18 Findings: + NSR @ (96) Laboratory Results 08/19/18 07:39 08/19/18 07:39 Blood Type A Positive 08/16/18 22:31 Antibody Screen NEGATIVE 08/16/18 22:31 PT 11.4 Seconds (9.0-12.0) 08/16/18 20:10 INR 1.1 (0.9-1.1) 08/16/18 20:10 APTT 26.5 Seconds (21.0-31.0) 08/16/18 20:10 Hemoglobin A1c 8.3 % (4.5-5.6) H 08/17/18 07:06 08/19/18 08/19/18 07:37 04:01 POC Glucose 194 H 157 H
--- NOTE | 2018-08-19 09:12 | Gastroenterology Progress Note ---
Date of Service August 19, 2018 Assessment & Plan (1) Anemia: 62-year-old female with both heart and lung disease on chronic oxygen therapy presenting with what appears to be symptomatic anemia with possible recent melena clinically doing well no signs of bleeding. Is NPO for EGD this AM - NPO - EGD today - Please see report of EGD when completed for additional recommendations. Supervising Physician Co-Signing Physician Notes I performed a history and physical examination of the patient, including specifically on physical exam - soft, nontender abdomen. I have discussed the patient's management with Gregoria. Please refer to the nurse practitioner's note for the documented findings and plan of care. Subjective Pt was seen and evaluated, chart reviewed. Is NPO for EGD today. Notes she had a black stool earlier this AM. No BRBPR. Has not had any vomiting. No prior coffee ground emesis or hematemesis. No fever, chills, CP, SOB. Physical Exam 2 Vital Signs (Past 24 Hours): Last Vital Signs Temp 36.7 C 08/19/18 07:26 Pulse 81 08/19/18 07:26 Resp 18 08/19/18 07:26 BP 137/62 08/19/18 07:26 Pulse Ox 97 08/19/18 07:26 Constitutional: WD/WN, vitals as above + obese Respiratory: normal respiratory effort, lungs clear to auscultation Cardiovascular: RRR, no murmur, no edema Gastrointestinal (Abdomen): Inspection/Auscultation: normal bowel sounds Percussion/Palpation: abdomen soft; abdomen nontender Skin: no rashes, warm and dry Results & Data Laboratory Results 08/19/18 08/19/18 08/19/18 Range/Units 07:39 07:39 07:37 WBC 10.54 (4.8-10.8) K/uL RBC 3.05 L (4.2-5.4) M/uL Hgb 8.1 L (12.0-16.0) g/dL Hct 26.5 L (37-47) % MCV 86.9 (80-100) fL MCH 26.6 (25-34) pg MCHC 30.6 L (32-36) g/dL RDW Std Deviation 57.3 H (36.4-46.3) fL RDW Coeff of Cherelle 18.0 H (11.5-14.5) % Plt Count 277 (130-400) K/uL MPV 9.3 (7.4-10.4) fL Sodium 138 (136-145) mmol/L Potassium 4.4 (3.5-5.1) mmol/L Chloride 104 (98-107) mmol/L Carbon Dioxide 26 (21-32) mmol/L Anion Gap 8.0 (3-11) BUN 16 (7-18) mg/dl Creatinine 1.33 H (0.6-1.2) mg/dl Est Cr Clr Drug Dosing 58.1 ml/min Est GFR ( Amer) 49.5 Est GFR (Non-Af Amer) 42.7 BUN/Creatinine Ratio 12.0 (10-20) Glucose 190 H (70-99) mg/dl POC Glucose 194 H (70-99) Calcium 9.1 (8.5-10.1) mg/dl Total Bilirubin 0.6 (0.2-1) mg/dl AST 13 L (15-37) U/L ALT 21 (12-78) U/L Alkaline Phosphatase 85 (45-117) U/L Total Protein 7.3 (6.4-8.2) gm/dl Albumin 2.9 L (3.4-5.0) gm/dl Globulin 4.4 H (2.5-4.0) gm/dl Albumin/Globulin Ratio 0.7 L (0.9-2) Specimen Hemolysis 08/19/18 08/18/18 08/18/18 Range/Units 04:01 20:34 16:49 WBC (4.8-10.8) K/uL RBC (4.2-5.4) M/uL Hgb (12.0-16.0) g/dL Hct (37-47) % MCV (80-100) fL MCH (25-34) pg MCHC (32-36) g/dL RDW Std Deviation (36.4-46.3) fL RDW Coeff of Cherelle (11.5-14.5) % Plt Count (130-400) K/uL MPV (7.4-10.4) fL Sodium (136-145) mmol/L Potassium (3.5-5.1) mmol/L Chloride (98-107) mmol/L Carbon Dioxide (21-32) mmol/L Anion Gap (3-11) BUN (7-18) mg/dl Creatinine (0.6-1.2) mg/dl Est Cr Clr Drug Dosing ml/min Est GFR ( Amer) Est GFR (Non-Af Amer) BUN/Creatinine Ratio (10-20) Glucose (70-99) mg/dl POC Glucose 157 H 256 H 211 H (70-99) Calcium (8.5-10.1) mg/dl Total Bilirubin (0.2-1) mg/dl AST (15-37) U/L ALT (12-78) U/L Alkaline Phosphatase (45-117) U/L Total Protein (6.4-8.2) gm/dl Albumin (3.4-5.0) gm/dl Globulin (2.5-4.0) gm/dl Albumin/Globulin Ratio (0.9-2) Specimen Hemolysis 08/18/18 08/18/18 Range/Units 11:01 08:25 WBC (4.8-10.8) K/uL RBC (4.2-5.4) M/uL Hgb (12.0-16.0) g/dL Hct (37-47) % MCV (80-100) fL MCH (25-34) pg MCHC (32-36) g/dL RDW Std Deviation (36.4-46.3) fL RDW Coeff of Cherelle (11.5-14.5) % Plt Count (130-400) K/uL MPV (7.4-10.4) fL Sodium 136 (136-145) mmol/L Potassium 4.5 (3.5-5.1) mmol/L Chloride 101 (98-107) mmol/L Carbon Dioxide 27 (21-32) mmol/L Anion Gap 8.0 (3-11) BUN 20 H (7-18) mg/dl Creatinine 1.35 H (0.6-1.2) mg/dl Est Cr Clr Drug Dosing 57.4 ml/min Est GFR ( Amer) 48.6 Est GFR (Non-Af Amer) 42.0 BUN/Creatinine Ratio 14.9 (10-20) Glucose 166 H (70-99) mg/dl POC Glucose 174 H (70-99) Calcium 9.2 (8.5-10.1) mg/dl Total Bilirubin (0.2-1) mg/dl AST (15-37) U/L ALT (12-78) U/L Alkaline Phosphatase (45-117) U/L Total Protein (6.4-8.2) gm/dl Albumin (3.4-5.0) gm/dl Globulin (2.5-4.0) gm/dl Albumin/Globulin Ratio (0.9-2) Specimen Hemolysis
--- NOTE | 2018-08-19 09:35 | Cardiology Progress Note ---
Date of Service August 19, 2018 Assessment & Plan (1) Shortness of breath: She feels that her breathing has improved substantially since her thoracentesis. Although she did not appear to be in a lot of heart failure she did have fluid retention with edema and a pleural effusion, that has improved substantially. Part of this may be due to the anemia and the need for increased cardiac output. I think we should follow her without too much change in her outpatient medical regimen, we can see her relatively soon in the office to make sure she does not have recurrent fluid retention. (2) Coronary artery disease: She has known coronary artery disease and intervention, ideally she would be on platelet inhibitors but under the circumstances I agree that we should not use them. She does need to be on Eliquis and therefore would avoid the use of Plavix. (3) Chest pain: Her symptoms are consistent with angina. However, she had a very low hemoglobin level recently and that may account for her exertional chest pain. She is known to have some residual nonobstructive disease in the LAD. It is possible that has progressed,. This point I think monitoring her symptoms after transfusion would be reasonable. Given her acute hemorrhage re- evaluation of her coronaries with percutaneous intervention is less desirable given the need for dual anti-platelet therapy afterward. I think this could be managed medically in any event. Subjective Events of this admission reviewed. Today she is feeling stronger, she reports her breathing is better since her thoracentesis. She feels that she is much less edema in her legs now and her shoes fit easily. Physical Exam 2 Vital Signs (Past 24 Hours): Last Vital Signs Temp 37.1 C 08/19/18 09:20 Pulse 83 08/19/18 09:20 Resp 20 08/19/18 09:20 BP 145/80 H 08/19/18 09:20 Pulse Ox 100 08/19/18 09:20 Physical Exam: Constitutional: Alert, cooperative and in no distress. Pulmonary: Clear to auscultation bilaterally. Cardiac: Regular rhythm with no murmur, gallop or rub. Abdomen: Soft, nontender with normal bowel sounds. Extremities: No edema. Skin: No rash, ecchymoses or petechiae. Results & Data Diagnostic Findings Telemetry: Sinus rhythm, controlled heart rate _ (1) Chest pain Chest pain type: unspecified Ischemic chest pain type: Qualified Code(s): R07.9 - Chest pain, unspecified
[2018-08-19] MEDS ORDERED: KETAMINE HCL INJ 50 MG/ML 10 ML VIAL ONE (10:15)
--- NOTE | 2018-08-19 10:49 | GI REPORT ---
Patient Name: Lucy Molina Procedure Date: 08/19/2018 10:30 AM Date of : 1955 Admit Type: Inpatient Age: 62 Gender: Female Attending MD: Cali Sandoval MD Procedure: Upper GI endoscopy Providers: Cali Sandoval MD Referring MD: Tex Quintero Md, Ronaldo Munroe M.d., Cheri Iyer M.d. Indications: Melena Medicines: Monitored Anesthesia Care Complications: No immediate complications. Estimated Blood Loss: Estimated blood loss: none. Procedure: Pre-Anesthesia Assessment: - Prior to the procedure, a History and Physical was performed, and patient medications and allergies were reviewed. The patient is competent. The risks and benefits of the procedure and the sedation options and risks were discussed with the patient. All questions were answered and informed consent was obtained. Patient identification and proposed procedure were verified by the physician and the nurse in the procedure room. Mental Status Examination: alert and oriented. Airway Examination: normal oropharyngeal airway and neck mobility. Respiratory Examination: clear to auscultation. CV Examination: normal. ASA Grade Assessment: III - A patient with severe systemic disease. After reviewing the risks and benefits, the patient was deemed in satisfactory condition to undergo the procedure. The anesthesia plan was to use monitored anesthesia care (MAC). Immediately prior to administration of medications, the patient was re-assessed for adequacy to receive sedatives. The heart rate, respiratory rate, oxygen saturations, blood pressure, adequacy of pulmonary ventilation, and response to care were monitored throughout the procedure. The physical status of the patient was re-assessed after the procedure. After obtaining informed consent, the endoscope was passed under direct vision. Throughout the procedure, the patient's blood pressure, pulse, and oxygen saturations were monitored continuously. The Scope was introduced through the mouth, and advanced to the third part of duodenum. The upper GI endoscopy was accomplished without difficulty. The patient tolerated the procedure well. Findings: The examined esophagus was normal. The entire examined stomach was normal. The duodenal bulb and second portion of the duodenum were normal. Impression: - Normal esophagus. - Normal stomach. - Normal duodenal bulb and second portion of the duodenum. - No specimens collected. Recommendation: - [facility]. - Perform a colonoscopy tomorrow. - Clear liquid diet. Cali Sandoval MD 08/19/2018 10:48:51 AM This report has been signed electronically. Note Initiated On: 08/19/2018 10:30 AM Number of Addenda: 0 I attest to the content of the Intraoperative Record and orders documented therein, exceptions below {[id number]}
--- NOTE | 2018-08-19 11:27 | Anesthesiology Progress Note ---
Date of Service August 19, 2018 Anesthesia Post Procedure Vital Signs Vital Signs: Temp Pulse Pulse Resp BP Pulse Ox 08/19/18 11:10 82 18 144/87 H 97 08/19/18 10:55 83 128/76 100 08/19/18 09:20 37.1 C 83 20 145/80 H 100 08/19/18 07:26 36.7 C 81 18 137/62 97 08/19/18 03:23 36.7 C 83 18 154/61 H 95 08/18/18 23:26 36.7 C 142/81 H 97 08/18/18 20:04 36.7 C 80 18 125/53 L 99 08/18/18 18:26 81 164/99 H 08/18/18 17:00 83 08/18/18 15:04 36.7 C 83 20 133/71 95 08/18/18 11:38 36.5 C 78 16 116/70 100 Pain Intensity Right Upper Abdomen: Pain Intensity: 6 Notes Mental Status: alert / awake / arousable and participated in evaluation Nausea / Vomiting: adequately controlled Pain: adequately controlled Airway Patency, RR, SpO2: stable & adequate BP & HR: stable & adequate Hydration State: stable & adequate Anesthetic Complications: no major complications apparent and Pt Satisfied with anesthetic care
[2018-08-19] MEDS ORDERED: PROPOFOL IV EMULSION 10 MG/ML 20 ML VIAL IV ONE (11:29)
[2018-08-19] MEDS ORDERED: LIDOCAINE HCL 2% 2 ML VIAL/AMP(20MG/ML) INFIL ONE ×2 (11:29)
--- NOTE | 2018-08-19 12:45 | Procedure Note ---
Procedure Note Date of Service August 19, 2018 S/P EGD w/o source of GI blood loss identified. Please start clear liquid diet, prep for colonoscopy w/ go-lytely as ordered. NPO after midnight for Colonoscopy 08/20/18. Ok to resumt ASA.
[2018-08-19 15:05] LABS: Hematocrit (blood only) 26.6 % (37-47); Hemoglobin 8.1 g/dL (12.0-16.0)
--- NOTE | 2018-08-19 15:27 | Pharmacy Report ---
PHA: Glycemic Control AP - Date of Service August 19, 2018 - Assessment & Plan The patient is currently receiving 96 units of insulin per day. BSGs ranging 157 - 256 mg/dl over the past 24hrs. Patient was nPO this morning for EGD then was ordered a diet for lunch. Patient will become NPO again this evening for colonoscopy tomorrow. Will attempt to take NPO times into account for basal dosing. * Basal insulin: Lantus 25 units this morning then per scale this evening (20u, 25u, or 30u based on BSG) * Correctional Insulin: Novolog Correction per scale ACHS- will keep ACHS until a definitive diet ordered Goal Range: Low 110 mg/dL - High 140 mg/dL Correction Factor: 12 mg/dL/unit * Prandial insulin: Per carb ratio of 1 unit per 4 grams CHO consumed Pharmacy will continue to monitor patient daily and write orders per [facility] inpatient glycemic control protocol. Thanks. * Please note that the plan above was derived based on current level of insulin resistance and hospital stress. These recommendations are appropriate for inpatient admission only. Plan of care upon discharge will need to be reassessed to avoid potential outpatient hypo/hyperglycemia.
[2018-08-19] MEDS ORDERED: LAVAGE SOLUTION 4000ML PO SCH (16:00)
[2018-08-19] MEDS ORDERED: Nursing to Pharmacy Communication ONE (16:53)
[2018-08-19] MEDS ORDERED: ASPIRIN 325 MG ECTAB PO SCH (18:00)
[2018-08-19] MEDS: ASPIRIN 81 MG ECTAB PO SCH (19:47)
[2018-08-19] MEDS ORDERED: SIMETHICONE 80 MG CHEW PO PRN (21:52)
[2018-08-19] MEDS ORDERED: ACETAMINOPHEN 1000 MG/100 ML IV IV PRN (21:52)
[2018-08-19] MEDS: MONTELUKAST SODIUM 10 MG TABLET PO SCH (22:25)
[2018-08-19] MEDS: ROSUVASTATIN CALCIUM 20 MG TAB PO SCH (22:25)
[2018-08-20] MEDS: PANTOprazole 40 MG in DEXTROSE 5% 100 ML IV SCH ×5 (00:02→15:03)
[2018-08-20] MEDS: LEVOTHYROXINE SODIUM 75 MCG TABLET PO SCH (05:13)
[2018-08-20 07:55] LABS: Hematocrit (blood only) 24.9 % (37-47); Hemoglobin 7.5 g/dL (12.0-16.0); Mean Corpuscular Hgb Conc 30.1 g/dL (32-36); Mean Corpuscular Volume 86.8 fL (80-100); Mean Platelet Volume 9.5 fL (7.4-10.4); Platelet Count 264 K/uL (130-400); RDW Coefficient of Variation 18.2 % (11.5-14.5); RDW Standard Deviation 57.7 fL (36.4-46.3); Red Blood Count 2.87 M/uL (4.2-5.4); White Blood Count 8.72 K/uL (4.8-10.8)
--- NOTE | 2018-08-20 08:02 | Gastroenterology Progress Note ---
Date of Service August 20, 2018 Assessment & Plan (1) Anemia: 62-year-old female with both heart and lung disease on chronic oxygen therapy presenting with what appears to be symptomatic anemia with possible recent melena clinically doing well no signs of bleeding. EGD negative, colonscopy eval this AM - NPO for colonoscopy - Will review AM labs when available. - Please see report of EGD when completed for additional recommendations. Thank you for allowing us to participate in the care of this patient. Please call with any acute changes, questions or concerns. Please see addendum below with additional recommendation from my supervising physician. Supervising Physician Co-Signing Physician Notes I performed a history and physical examination of the patient, including specifically on physical exam - soft, nontender abdomen. I have discussed the patient's management with Gregoria. Please refer to the nurse practitioner's note for the documented findings and plan of care. Subjective Pt was seen and evaluated, chart reviewed. EGD negative. Is NPO for colonoscopy today. Notes she completed bowel prep. Did have some black stools at start of prep but no BRBPR. Now with clear, watery stools. Is tired. No abd pain. No nausea,vomiting. Denies fever, chills, CP, SOB. EGD: Normal esophagus. Normal stomach. Normal duodenal bulb and second portion of the duodenum. No specimens collected Physical Exam 2 Vital Signs (Past 24 Hours): Last Vital Signs Temp 36.3 C L 08/20/18 07:12 Pulse 75 08/20/18 07:12 Resp 20 08/20/18 07:12 BP 144/61 H 08/20/18 07:12 Pulse Ox 98 08/20/18 07:12 Constitutional: WD/WN, vitals as above + obese Respiratory: normal respiratory effort, lungs clear to auscultation Cardiovascular: RRR, no murmur, no edema Gastrointestinal (Abdomen): Inspection/Auscultation: normal bowel sounds Percussion/Palpation: abdomen soft; abdomen nontender Skin: no rashes, warm and dry Results & Data Laboratory Results 08/20/18 08/20/18 08/19/18 Range/Units 07:24 07:24 20:13 WBC 8.72 (4.8-10.8) K/uL RBC 2.87 L (4.2-5.4) M/uL Hgb 7.5 L (12.0-16.0) g/dL Hct 24.9 L (37-47) % MCV 86.8 (80-100) fL MCH 26.1 (25-34) pg MCHC 30.1 L (32-36) g/dL RDW Std Deviation 57.7 H (36.4-46.3) fL RDW Coeff of Cherelle 18.2 H (11.5-14.5) % Plt Count 264 (130-400) K/uL MPV 9.5 (7.4-10.4) fL Sodium Pending (136-145) mmol/L Potassium Pending (3.5-5.1) mmol/L Chloride Pending (98-107) mmol/L Carbon Dioxide Pending (21-32) mmol/L Anion Gap Pending (3-11) BUN Pending (7-18) mg/dl Creatinine Pending (0.6-1.2) mg/dl Est Cr Clr Drug Dosing Pending ml/min Est GFR ( Amer) Pending Est GFR (Non-Af Amer) Pending BUN/Creatinine Ratio Pending (10-20) Glucose Pending (70-99) mg/dl POC Glucose 257 H (70-99) Calcium Pending (8.5-10.1) mg/dl Total Bilirubin (0.2-1) mg/dl AST (15-37) U/L ALT (12-78) U/L Alkaline Phosphatase (45-117) U/L Total Protein (6.4-8.2) gm/dl Albumin (3.4-5.0) gm/dl Globulin (2.5-4.0) gm/dl Albumin/Globulin Ratio (0.9-2) Crossmatch 08/19/18 08/19/18 08/19/18 Range/Units 16:26 14:45 12:00 WBC (4.8-10.8) K/uL RBC (4.2-5.4) M/uL Hgb 8.1 L (12.0-16.0) g/dL Hct 26.6 L (37-47) % MCV (80-100) fL MCH (25-34) pg MCHC (32-36) g/dL RDW Std Deviation (36.4-46.3) fL RDW Coeff of Cherelle (11.5-14.5) % Plt Count (130-400) K/uL MPV (7.4-10.4) fL Sodium (136-145) mmol/L Potassium (3.5-5.1) mmol/L Chloride (98-107) mmol/L Carbon Dioxide (21-32) mmol/L Anion Gap (3-11) BUN (7-18) mg/dl Creatinine (0.6-1.2) mg/dl Est Cr Clr Drug Dosing ml/min Est GFR ( Amer) Est GFR (Non-Af Amer) BUN/Creatinine Ratio (10-20) Glucose (70-99) mg/dl POC Glucose 195 H 181 H (70-99) Calcium (8.5-10.1) mg/dl Total Bilirubin (0.2-1) mg/dl AST (15-37) U/L ALT (12-78) U/L Alkaline Phosphatase (45-117) U/L Total Protein (6.4-8.2) gm/dl Albumin (3.4-5.0) gm/dl Globulin (2.5-4.0) gm/dl Albumin/Globulin Ratio (0.9-2) Crossmatch 08/19/18 08/16/18 Range/Units 07:39 22:31 WBC (4.8-10.8) K/uL RBC (4.2-5.4) M/uL Hgb (12.0-16.0) g/dL Hct (37-47) % MCV (80-100) fL MCH (25-34) pg MCHC (32-36) g/dL RDW Std Deviation (36.4-46.3) fL RDW Coeff of Cherelle (11.5-14.5) % Plt Count (130-400) K/uL MPV (7.4-10.4) fL Sodium 138 (136-145) mmol/L Potassium 4.4 (3.5-5.1) mmol/L Chloride 104 (98-107) mmol/L Carbon Dioxide 26 (21-32) mmol/L Anion Gap 8.0 (3-11) BUN 16 (7-18) mg/dl Creatinine 1.33 H (0.6-1.2) mg/dl Est Cr Clr Drug Dosing 58.1 ml/min Est GFR ( Amer) 49.5 Est GFR (Non-Af Amer) 42.7 BUN/Creatinine Ratio 12.0 (10-20) Glucose 190 H (70-99) mg/dl POC Glucose (70-99) Calcium 9.1 (8.5-10.1) mg/dl Total Bilirubin 0.6 (0.2-1) mg/dl AST 13 L (15-37) U/L ALT 21 (12-78) U/L Alkaline Phosphatase 85 (45-117) U/L Total Protein 7.3 (6.4-8.2) gm/dl Albumin 2.9 L (3.4-5.0) gm/dl Globulin 4.4 H (2.5-4.0) gm/dl Albumin/Globulin Ratio 0.7 L (0.9-2) Crossmatch See Detail
--- NOTE | 2018-08-20 08:23 | Anesthesiology Progress Note ---
Date of Service August 20, 2018 Anesthesia Post Procedure Vital Signs Vital Signs: Temp Pulse Pulse Pulse Resp BP BP 08/20/18 07:12 36.3 C L 75 20 144/61 H 08/20/18 03:40 36.4 C L 82 20 106/39 L 08/20/18 00:09 72 08/19/18 23:15 36.3 C L 73 20 130/53 L 08/19/18 19:51 36.5 C 77 20 141/71 H 08/19/18 17:00 76 08/19/18 15:09 36.3 C L 77 20 146/70 H 08/19/18 11:24 81 18 144/49 H 08/19/18 11:10 82 18 144/87 H 08/19/18 10:55 83 128/76 08/19/18 09:20 37.1 C 83 20 145/80 H Pulse Ox 08/20/18 07:12 98 08/20/18 03:40 99 08/20/18 00:09 08/19/18 23:15 100 08/19/18 19:51 95 08/19/18 17:00 08/19/18 15:09 98 08/19/18 11:24 08/19/18 11:10 97 08/19/18 10:55 100 08/19/18 09:20 100 Pain Intensity Right Upper Abdomen: Pain Intensity: 2 Notes Mental Status: alert / awake / arousable and participated in evaluation Nausea / Vomiting: adequately controlled Pain: adequately controlled Airway Patency, RR, SpO2: stable & adequate BP & HR: stable & adequate Hydration State: stable & adequate Anesthetic Complications: Pt Satisfied with anesthetic care
[2018-08-20 08:30] LABS: BUN Creatinine Ratio 9.1 (10-20); Calcium 8.8 mg/dl (8.5-10.1); Creatinine Clr Calc Pharmacy 58.6 ml/min; Est GFR (African American) 49.5; Est GFR (Non-African American) 42.7; Potassium 3.6 mmol/L (3.5-5.1)
[2018-08-20] MEDS: FLUTICASONE/SALMETEROL 250/50 (ADVAIR) 14 PUFF/1 INHALER INH SCH ×2 (08:59→20:35)
[2018-08-20] MEDS: LOSARTAN POTASSIUM 50 MG TAB PO SCH (08:59)
[2018-08-20] MEDS: ASPIRIN 81 MG ECTAB PO SCH (08:59)
[2018-08-20] MEDS: INSULIN ASPART 100 UNITS/ML 3 ML PEN SC SCH ×5 (09:03→20:42)
[2018-08-20] MEDS: INSULIN GLARGINE SOLOSTAR 100 UNITS/ML 3 ML PEN SC SCH ×2 (09:03→20:43)
--- NOTE | 2018-08-20 11:42 | Anesthesiology Consultation ---
Date of Service August 20, 2018 Super Morbid Obesity Chronic respiratory failure COPD Chronic CHF IDDM Anemia Assessment & Plan (1) Encounter for pre-operative examination: Chart Review Chart Review: Acceptable Risk for Surgery and Patient NOT seen in Pre Admission Testing Consults Requested none ASA ASA4 Proposed Anesthesia Anesthesia Type: MAC Risk / Benefits Reviewed With: PT / POA / Parent / Guardian, Accepts Plan and Informed Consent Obtained NPO Date Last Intake of Fluids: 08/20/18 Time Last Intake of Fluids: 00:00 Last Intake of Fluids Comment: SIP OF WATER WITH PILL AT Date Last Intake of Solids: 08/16/18 Time Last Intake of Solids: 11:00 History Surgery Operation Date: 08/19/18 08:15 Proposed Procedures p Esophagogastroduodenoscopy Dr Lori Sandoval MD Operation Date: 08/20/18 08:30 Proposed Procedures p Colonoscopy Dr Lori Sandoval MD Height/Weight Height: 5 ft Weight: 143.2 kg Allergies Allergy/AdvReac Type Severity Reaction Status Date / Time shellfish derived Allergy Severe "SEAFOOD" Verified 08/16/18 21:13 -- HIVES and ANAPHLYAXIS sulfite Allergy Severe HIVES AND Verified 08/16/18 21:13 THROAT CLOSES Iodinated Contrast- Oral and Allergy Unknown UNKNOWN Verified 08/16/18 21:13 IV Dye iodine Allergy Unknown Unknown Verified 08/16/18 21:13 Medications Home Medications Medication Instructions Recorded Confirmed Last Taken aspirin [Aspir-81] 81 mg PO QAM 03/25/18 08/16/18 08/16/18 fluticasone [24 Hour Allergy 2 spray INTRANASAL DAILY PRN 03/25/18 08/16/18 Unknown Relief] montelukast 10 mg PO PM 03/25/18 08/16/18 08/15/18 levalbuterol tartrate [Xopenex HFA] 2 inh INHALATION Q4H PRN 06/25/18 08/16/18 Unknown levothyroxine 75 mcg PO QAM 06/25/18 08/16/18 08/16/18 losartan 50 mg PO QAM 06/25/18 08/16/18 08/16/18 rosuvastatin [Crestor] 40 mg PO PM 06/25/18 08/16/18 08/15/18 epinephrine [EpiPen] 0.3 mg IM DIRECTED PRN 08/16/18 08/16/18 Unknown fluticasone-salmeterol [Advair 1 puff INHALATION BID 08/16/18 08/16/18 08/16/18 Diskus] AM DOSE furosemide 20 mg PO QAM 08/16/18 08/16/18 08/16/18 insulin regular hum U-500 conc 100 units SUBCUT QAM 08/16/18 08/16/18 08/16/18 [Humulin R U-500 (Conc) Kwikpen] insulin regular hum U-500 conc 120 units SUBCUT QPM 08/16/18 08/16/18 08/16/18 [Humulin R U-500 (Conc) Kwikpen] levalbuterol HCl 0.31 mg INHALATION Q4H PRN 08/16/18 08/16/18 Unknown ticagrelor [Brilinta] 90 mg PO BID 08/16/18 08/16/18 08/16/18 AM DOSE Active Medications Generic Name Dose Route Start Last Admin Trade Name Freq PRN Reason Stop Dose Admin Acetaminophen 1,000 mg 08/19/18 21:52 08/19/18 22:17 Ofirmev IV 09/18/18 21:51 1,000 mg Q6H PRN Administration Pain Protocol Aspirin 81 mg 08/19/18 19:00 08/20/18 08:59 Ecotrin Ectab PO 09/18/18 18:59 81 mg QAM LEONA Administration Pantoprazole Sodium 40 mg/ 100 mls @ 20 mls/hr 08/16/18 22:15 08/20/18 10:51 Dextrose IV 09/15/18 22:14 Infused Q5H LEONA Infusion Insulin Aspart 0 units 08/18/18 11:30 08/20/18 09:03 Novolog Flexpen SC 09/17/18 11:29 Not Given ACHS LEONA Protocol Insulin Glargine 0 units 08/17/18 21:00 08/20/18 09:03 Lantus Solostar Pen SC 09/16/18 20:59 20 units BID LEONA Administration Protocol Levothyroxine Sodium 75 mcg 08/17/18 06:30 08/20/18 05:13 Synthroid PO 09/16/18 06:29 75 mcg DAILYBB LEONA Administration Losartan Potassium 50 mg 08/17/18 09:00 08/20/18 08:59 Cozaar PO 09/16/18 08:59 50 mg QAM LEONA Administration Montelukast Sodium 10 mg 08/17/18 21:00 08/19/18 22:25 Singulair PO 09/16/18 20:59 10 mg PM LEONA Administration Ondansetron HCl 4 mg 08/17/18 01:49 08/19/18 16:47 Zofran IV 09/16/18 01:48 4 mg Q6H PRN Administration Nausea Rosuvastatin Calcium 40 mg 08/17/18 21:00 08/19/18 22:25 Crestor PO 09/16/18 20:59 40 mg PM LEONA Administration Fluticasone/Salmeterol 1 puffs 08/17/18 09:00 08/20/18 08:59 Advair Diskus 250/50 INH 09/16/18 08:59 1 puffs BID LEONA Administration Simethicone 80 mg 08/19/18 21:52 08/19/18 22:23 Mylicon PO 09/18/18 21:51 80 mg Q6H PRN Administration Gas or Constipation Past Medical History Medical History Diabetes (Chronic) GERD (gastroesophageal reflux disease) (Chronic) Diverticulitis (Resolved) Thyroid cancer (Resolved) Acute respiratory failure with hypoxia CHF (congestive heart failure) CAD S/P percutaneous coronary angioplasty (Chronic) Chronic respiratory failure (Chronic) 1 to 2 L oxygen Morbid obesity (Chronic) Past Family History Family History Other No pertinent family history Past Surgical History Surgical History H/O endoscopy H/O partial thyroidectomy History of colonoscopy History of percutaneous coronary intervention Past Anesthesia History single episode of low BP Social History Smoking Status: Never smoker Do You Dip or Chew Tobacco: No Hx Alcohol Use: No Hx Substance Use: No Physical Exam Vital Signs Last Vital Signs Temp 36.3 C L 08/20/18 07:12 Pulse 81 08/20/18 10:19 Resp 20 08/20/18 07:12 BP 144/61 H 08/20/18 07:12 Pulse Ox 98 08/20/18 07:12 Constitutional + morbidly obese ENMT Thyromental Distance: > or= 3.5 Finger Breadths Mallampati Class: III Neck normal visual inspection, + short neck and + thick neck Respiratory normal respiratory effort Auscultation: + diminished lung sounds Cardiovascular Rate/Rhythm: regular rate and regular rhythm Musculoskeletal Spine: normal cervical ROM Neurologic moves all extremities Psychiatric Orientation: alert and oriented x 3 Testing Laboratory Results 08/20/18 07:24 08/20/18 07:24 Blood Type A Positive 08/16/18 22:31 Antibody Screen NEGATIVE 08/16/18 22:31 PT 11.4 Seconds (9.0-12.0) 08/16/18 20:10 INR 1.1 (0.9-1.1) 08/16/18 20:10 APTT 26.5 Seconds (21.0-31.0) 08/16/18 20:10 Hemoglobin A1c 8.3 % (4.5-5.6) H 08/17/18 07:06 08/20/18 08/20/18 08:21 07:20 POC Glucose 125 H 121 H
[2018-08-20] MEDS ORDERED: LIDOCAINE HCL 2% 2 ML VIAL/AMP(20MG/ML) INFIL ONE (11:52)
[2018-08-20] MEDS ORDERED: KETAMINE HCL INJ 50 MG/ML 10 ML VIAL ONE (11:52)
[2018-08-20] MEDS ORDERED: PROPOFOL IV EMULSION 10 MG/ML 20 ML VIAL IV ONE (11:52)
--- NOTE | 2018-08-20 12:12 | Procedure Note ---
Procedure Note Date of Service August 20, 2018 S/P Colonoscopy with polypectomy, diverticulosis and hemorrhoids. No source of GI blood loss identified on either EGD yesterday of colonoscopy today. No GI contraindication to resuming anticoagulation. Will need OP VCE. GI to sign off. Thank you for allowing us to participate in the care of this patient. Please call with any acute changes, questions or concerns. Please see addendum below with additional recommendation from my supervising physician. Supervising Physician Co-Signing Physician Notes I have discussed the patient's management with Gregoria. Please refer to the nurse practitioner's note for the documented findings and plan of care.
--- NOTE | 2018-08-20 12:16 | GI REPORT ---
Patient Name: Lucy Molina Procedure Date: 08/20/2018 11:46 AM Date of : 1955 Admit Type: Inpatient Age: 62 Gender: Female Attending MD: Cali Sandoval MD Procedure: Colonoscopy Providers: Cali Sandoval MD Referring MD: Tex Quintero Md Indications: Rectal bleeding Medicines: Monitored Anesthesia Care Complications: No immediate complications. Estimated Blood Loss: Estimated blood loss: none. Procedure: Pre-Anesthesia Assessment: - Prior to the procedure, a History and Physical was performed, and patient medications and allergies were reviewed. The patient is competent. The risks and benefits of the procedure and the sedation options and risks were discussed with the patient. All questions were answered and informed consent was obtained. Patient identification and proposed procedure were verified by the physician and the nurse in the procedure room. Mental Status Examination: alert and oriented. Airway Examination: normal oropharyngeal airway and neck mobility. Respiratory Examination: clear to auscultation. CV Examination: normal. ASA Grade Assessment: III - A patient with severe systemic disease. After reviewing the risks and benefits, the patient was deemed in satisfactory condition to undergo the procedure. The anesthesia plan was to use monitored anesthesia care (MAC). Immediately prior to administration of medications, the patient was re-assessed for adequacy to receive sedatives. The heart rate, respiratory rate, oxygen saturations, blood pressure, adequacy of pulmonary ventilation, and response to care were monitored throughout the procedure. The physical status of the patient was re-assessed after the procedure. After I obtained informed consent, the scope was passed under direct vision. Throughout the procedure, the patient's blood pressure, pulse, and oxygen saturations were monitored continuously. The Colonoscope was introduced through the anus and advanced to the terminal ileum. The colonoscopy was performed without difficulty. The patient tolerated the procedure well. The quality of the bowel preparation was good. The terminal ileum, ileocecal valve, appendiceal orifice, and rectum were photographed. Findings: The perianal and digital rectal examinations were normal. The terminal ileum appeared normal. Two sessile polyps were found in the hepatic flexure. The polyps were 6 mm in size. These polyps were removed with a cold snare. Resection and retrieval were complete. Verification of patient identification for the specimen was done by the physician and nurse using the patient's name and date. Multiple small and large-mouthed diverticula were found in the sigmoid colon. Non-bleeding internal hemorrhoids were found during retroflexion. The hemorrhoids were small. Impression: - The examined portion of the ileum was normal. - Two 6 mm polyps at the hepatic flexure, removed with a cold snare. Resected and retrieved. - Diverticulosis in the sigmoid colon. - Non-bleeding internal hemorrhoids. Recommendation: - Discharge patient to home. - Repeat colonoscopy in 5 years for surveillance. - Can resume antiplatelet therapy if needed. - Arrange VCE as outpatient. - Recall Gi if needed. Cali Sandoval MD 08/20/2018 12:16:22 PM This report has been signed electronically. Note Initiated On: 08/20/2018 11:46 AM Number of Addenda: 0 I attest to the content of the Intraoperative Record and orders documented therein, exceptions below {[id number]}
--- NOTE | 2018-08-20 13:00 | Anesthesiology Progress Note ---
Date of Service August 20, 2018 Anesthesia Post Procedure Vital Signs Vital Signs: Temp Pulse Pulse Pulse Resp BP BP 08/20/18 12:43 96 H 16 118/74 08/20/18 12:28 96 H 16 114/52 L 08/20/18 12:13 98 H 16 102/47 L 08/20/18 10:19 81 08/20/18 07:12 36.3 C L 75 20 144/61 H 08/20/18 03:40 36.4 C L 82 20 106/39 L 08/20/18 00:09 72 08/19/18 23:15 36.3 C L 73 20 130/53 L 08/19/18 19:51 36.5 C 77 20 141/71 H 08/19/18 17:00 76 08/19/18 15:09 36.3 C L 77 20 146/70 H Pulse Ox 08/20/18 12:43 96 08/20/18 12:28 97 08/20/18 12:13 98 08/20/18 10:19 08/20/18 07:12 98 08/20/18 03:40 99 08/20/18 00:09 08/19/18 23:15 100 08/19/18 19:51 95 08/19/18 17:00 08/19/18 15:09 98 Pain Intensity Right Upper Abdomen: Pain Intensity: 2 Notes Mental Status: alert / awake / arousable Patient Amnestic to Procedure: Yes Nausea / Vomiting: adequately controlled Pain: adequately controlled Airway Patency, RR, SpO2: stable & adequate BP & HR: stable & adequate Hydration State: stable & adequate Anesthetic Complications: no major complications apparent
[2018-08-20 17:22] LABS: Hematocrit (blood only) 25.1 % (37-47); Hemoglobin 7.6 g/dL (12.0-16.0)
[2018-08-20] MEDS: TICAGRELOR 90 MG TAB PO SCH (20:36)
[2018-08-20] MEDS: MONTELUKAST SODIUM 10 MG TABLET PO SCH (20:37)
[2018-08-20] MEDS: PANTOprazole 40 MG TAB PO SCH (20:37)
[2018-08-20] MEDS: ROSUVASTATIN CALCIUM 20 MG TAB PO SCH (21:52)
--- NOTE | 2018-08-20 22:22 | Hospitalist Progress Note ---
Date of Service August 20, 2018 Assessment & Plan (1) GI bleeding: GI bleed/Symptomatic anemia -holding asa/brillinta her drug eluting stent was summer -consulted gi/consult cards in light of recent stent/regarding when to restart meds -Gastro completed an EGD today (08/19) Will have colonscopy in AM. -Cardio states that patient had a newer gen Drug eluting stent which was placed in 2018. -May consider stopping Brillinta skilled nursing. Recommend continuing ASA once workup for GI bleed has been completed. transfused 2 units prbc during hospital stay. -On protonix drip -Continue crestor/losartan Hemoglobin did have a slight decrease today, however, patient is feeling less weak. Will recheck in AM. Likely discharge in morning. (2) Symptomatic anemia: acute blood loss anemia is decreaseed, but melena appears to have decreased. (3) Shortness of breath: CHF/CVD must be chronic diastolic heart failure -does not appear to be fluid overloaded at this time -Last echo december 2017 shows EF of 60% -Hold asa/brillinta as above, continue crestor Chronic hypioxic respiratory failure Chronic Oxygen requirement -Uses 1L at rest, 2L on exertion for past year -continue xopenex, montelukast, levalbuterol, advair Obstructive sleep apnea with the need for BiPAP at night (4) Diabetes: long acting insulin and ssi (5) GERD (gastroesophageal reflux disease): has a history will continue on ppi (6) Thyroid cancer: Thyroid Cancer -s/p partial thyroidectomy -cont home meds -reports there are "new lesions"--follows with [facility] (7) Elevated serum creatinine: Elevated creatinine -Diabetic nephropathy -CKD stage IIIb based on eGFR from labs dating to october 2017. (8) Hypokalemia: replete Spent 35 minutes in management of patient. This included discussion with consultants. Subjective Patient reports her stools are clear now. She had a colonoscopy today as she had an upper endoscopy yesterday; both of which were negative. Hemoglobin dropped mildly today. Patient reports feeling tired but less weak. Constitutional: + fatigue, + weakness and + weight gain Eyes: + diplopia (intermittent when feeling lightheaded) Respiratory: + dyspnea, + dyspnea on exertion and + stopping breathing during sleep (uses CPAP) Cardiovascular: + dyspnea, + dyspnea at rest, + dyspnea on exertion and + lightheadedness; no chest pain and no radiating jaw, neck or arm pain Gastrointestinal: + heartburn and + melena; no abdominal pain and no diarrhea/ loose stools Integumentary: + unusual bruising (recently had bruising on abdomen) Neurologic: + unsteadiness, + generalized weakness and + dizziness Endocrine: + fatigue and + problem reported (h/o thyroid ca, reports "new nodules") Physical Exam 2 Vital Signs (Past 24 Hours): Last Vital Signs Temp 37.0 C 08/20/18 19:23 Pulse 88 08/20/18 19:23 Resp 18 08/20/18 19:23 BP 126/55 L 08/20/18 19:23 Pulse Ox 95 08/20/18 19:23 Physical Exam: The patient appeared well nourished and normally developed. Morbidly obese. In distress at this time. Vital signs as documented. Head exam is unremarkable. normocephalic, atraumatic Neck is without jugular venous distension, thyromegaly, or lymphademopathy Lungs are diminished with basilar rales which clear with deep inspiration Cardiac exam reveals Rhythm is regular. First and second heart sounds normal. Abdominal exam reveals normal bowel sounds, no masses, no organomegaly she is nontender Extremities are chronically edematous compressive stockings are in place and both pedal pulses are present Neurologic exam is A&Ox3, no focal deficits, strength is equal bilateral Psychologically seems neither anxious or depressed Skin is warm Dry without bruises or lesions _ (1) GI bleeding GI bleed type/associated pathology: Gastritis type:
[2018-08-21] MEDS: LEVOTHYROXINE SODIUM 75 MCG TABLET PO SCH (06:03)
[2018-08-21 07:46] LABS: Hematocrit (blood only) 28.9 % (37-47); Hemoglobin 8.7 g/dL (12.0-16.0); Mean Corpuscular Hgb Conc 30.1 g/dL (32-36); Mean Platelet Volume 9.5 fL (7.4-10.4); Platelet Count 292 K/uL (130-400); RDW Coefficient of Variation 18.4 % (11.5-14.5); RDW Standard Deviation 58.4 fL (36.4-46.3); Red Blood Count 3.32 M/uL (4.2-5.4); White Blood Count 10.19 K/uL (4.8-10.8)
[2018-08-21] MEDS: FLUTICASONE/SALMETEROL 250/50 (ADVAIR) 14 PUFF/1 INHALER INH SCH ×2 (08:11→21:46)
[2018-08-21] MEDS: INSULIN ASPART 100 UNITS/ML 3 ML PEN SC SCH ×4 (08:11→21:50)
[2018-08-21] MEDS: INSULIN GLARGINE SOLOSTAR 100 UNITS/ML 3 ML PEN SC SCH ×2 (08:13→21:49)
[2018-08-21 08:14] LABS: BUN Creatinine Ratio 8.8 (10-20); Calcium 8.8 mg/dl (8.5-10.1); Creatinine Clr Calc Pharmacy 53.6 ml/min; Est GFR (African American) 44.6; Est GFR (Non-African American) 38.5
[2018-08-21] MEDS: ASPIRIN 81 MG ECTAB PO SCH (08:15)
[2018-08-21] MEDS: TICAGRELOR 90 MG TAB PO SCH ×2 (08:15→22:31)
[2018-08-21] MEDS: PANTOprazole 40 MG TAB PO SCH ×2 (08:15→22:31)
[2018-08-21] MEDS: LOSARTAN POTASSIUM 50 MG TAB PO SCH (08:15)
--- NOTE | 2018-08-21 13:59 | Pharmacy Report ---
Pharmacy Glycemic Short Note 2 - Date of Service August 21, 2018 - Glycemic Short BSG Results (Last 24 hours): 08/20/18 08/20/18 08/21/18 18:12 20:10 07:30 Glucose 135 H POC Glucose 185 H 231 H 08/21/18 08/21/18 07:45 11:07 Glucose POC Glucose 152 H 163 H OUTPATIENT ANTIDIABETIC REGIMEN: * U-500 100 units qAM, 120 units qPM * A1c = 8.3 % 08/17/18 ASSESSMENT: Ms. Molina required 75units of insulin yesterday, she is largely basal heavy. BSGs over the previous 24hrs: [phone]/dL. Nil acute changes in insulin status. Will continue with current orders at this juncture. PLAN FOR INPATIENT GLYCEMIC CONTROL: * Continue to hold U-500 until po intake improves - currently requiring not even half of outpatient requirements * Basal insulin scale SQ BID * give 20 units for BSGs <120mg/dL * give 25 units for BSGs 120-200mg/dL * give 30 units for BSGs >200mg/dL * Bolus insulin - no change * NovoLog per scale ACHS or Q6hrs while NPO * Goal Range: Low 110 mg/dL - High 140 mg/dL * Correction Factor: 12 mg/dL/unit * Nutritional / Prandial insulin per carb ratio of 1 unit per 4 grams CHO consumed PLAN FOR DISCHARGE: * see 08/17 note
[2018-08-21] MEDS: MONTELUKAST SODIUM 10 MG TABLET PO SCH (22:30)
[2018-08-21] MEDS: ROSUVASTATIN CALCIUM 20 MG TAB PO SCH (22:31)
[2018-08-22] MEDS: LEVOTHYROXINE SODIUM 75 MCG TABLET PO SCH (05:50)
[2018-08-22 07:00] LABS: Hematocrit (blood only) 31.5 % (37-47); Hemoglobin 9.7 g/dL (12.0-16.0); Mean Corpuscular Hgb Conc 30.8 g/dL (32-36); Mean Corpuscular Volume 86.3 fL (80-100); Platelet Count 289 K/uL (130-400); RDW Coefficient of Variation 17.9 % (11.5-14.5); RDW Standard Deviation 56.1 fL (36.4-46.3); Red Blood Count 3.65 M/uL (4.2-5.4); White Blood Count 10.07 K/uL (4.8-10.8)
[2018-08-22 07:36] LABS: BUN Creatinine Ratio 11.4 (10-20); Calcium 8.9 mg/dl (8.5-10.1); Creatinine Clr Calc Pharmacy 56.2 ml/min; Est GFR (Non-African American) 40.5; Potassium 4.3 mmol/L (3.5-5.1)
[2018-08-22] MEDS: FLUTICASONE/SALMETEROL 250/50 (ADVAIR) 14 PUFF/1 INHALER INH SCH (07:41)
[2018-08-22] MEDS: PANTOprazole 40 MG TAB PO SCH (07:43)
[2018-08-22] MEDS: TICAGRELOR 90 MG TAB PO SCH (07:44)
[2018-08-22] MEDS: LOSARTAN POTASSIUM 50 MG TAB PO SCH (08:36)
[2018-08-22] MEDS: ASPIRIN 81 MG ECTAB PO SCH (08:36)
[2018-08-22] MEDS: INSULIN GLARGINE SOLOSTAR 100 UNITS/ML 3 ML PEN SC SCH (08:37)
[2018-08-22] MEDS: INSULIN ASPART 100 UNITS/ML 3 ML PEN SC SCH ×2 (08:40→13:07)
--- NOTE | 2018-08-22 09:23 | Hospitalist Progress Note ---
Date of Service August 21, 2018 Assessment & Plan (1) GI bleeding: GI bleed/Symptomatic anemia -holding asa/brillinta her drug eluting stent was summer -consulted gi/consult cards in light of recent stent/regarding when to restart meds -Gastro completed an EGD today (08/19) Will have colonscopy in AM. -Cardio states that patient had a newer gen Drug eluting stent which was placed in 2018. -May consider stopping Brillinta group home. -ASA has been restarted transfused 2 units prbc during hospital stay. -On antoprazole PO BID -Continue crestor/losartan -due to her angina, will consider this symptomatic anemia. Johnathan transfuse patient one more unit of PRBC. Will re-eval in AM. Also discussed case with cardio. (2) Symptomatic anemia: As noted above, melena has decreased but patient remains symptomatic at hemoglobin of 8. Outpatient records show hemogobin above 12. Will transfuse one unit of PRBC and re-eval in AM. (3) Shortness of breath: CHF/CVD must be chronic diastolic heart failure -does not appear to be fluid overloaded at this time -Last echo december 2017 shows EF of 60% -Hold asa/brillinta as above, continue crestor Chronic hypioxic respiratory failure Chronic Oxygen requirement -Uses 1L at rest, 2L on exertion for past year -continue xopenex, montelukast, levalbuterol, advair Obstructive sleep apnea with the need for BiPAP at night (4) Diabetes: long acting insulin and ssi (5) GERD (gastroesophageal reflux disease): has a history will continue on ppi (6) Thyroid cancer: Thyroid Cancer -s/p partial thyroidectomy -cont home meds -reports there are "new lesions"--follows with [facility] (7) Elevated serum creatinine: Elevated creatinine -Diabetic nephropathy -CKD stage IIIb based on eGFR from labs dating to october 2017. (8) Hypokalemia: replete Spent 45 minutes in management of patient. This included discussion with consultants. Will hold discharge due to symptomatic anemia. Subjective Patient reports having no dark stools. She still reports having anginal symptoms. When she walks she notices midsternum chest pain which subsides at rest. This is accompanied by SOB on exertion. Her symptoms subside at rest. Constitutional: + fatigue, + weakness and + weight gain Eyes: + diplopia (intermittent when feeling lightheaded) Respiratory: + dyspnea, + dyspnea on exertion and + stopping breathing during sleep (uses CPAP) Cardiovascular: + dyspnea, + dyspnea at rest, + dyspnea on exertion and + lightheadedness; no chest pain and no radiating jaw, neck or arm pain Gastrointestinal: + heartburn and + melena; no abdominal pain and no diarrhea/ loose stools Integumentary: + unusual bruising (recently had bruising on abdomen) Neurologic: + unsteadiness, + generalized weakness and + dizziness Endocrine: + fatigue and + problem reported (h/o thyroid ca, reports "new nodules") Physical Exam 2 Vital Signs (Past 24 Hours): Last Vital Signs Temp 36.4 C 08/21/18 17:38 Pulse 83 08/21/18 17:38 Resp 18 08/21/18 17:38 BP 156/63 08/21/18 17:38 Pulse Ox 97 08/21/18 17:38 Physical Exam: The patient appeared well nourished and normally developed. Morbidly obese. In distress at this time. Vital signs as documented. Head exam is unremarkable. normocephalic, atraumatic Neck is without jugular venous distension, thyromegaly, or lymphademopathy Lungs are diminished with basilar rales which clear with deep inspiration Cardiac exam reveals Rhythm is regular. First and second heart sounds normal. Abdominal exam reveals normal bowel sounds, no masses, no organomegaly she is nontender Extremities are chronically edematous compressive stockings are in place and both pedal pulses are present Neurologic exam is A&Ox3, no focal deficits, strength is equal bilateral Psychologically seems neither anxious or depressed Skin is warm Dry without bruises or lesions _ (1) GI bleeding GI bleed type/associated pathology: Gastritis type:
[2018-08-22] MEDS ORDERED: INSULIN GLARGINE SOLOSTAR 100 UNITS/ML 3 ML PEN SC STA (09:34)
--- NOTE | 2018-08-26 07:42 | Discharge Summary ---
Date of Service August 22, 2018 Admission HPI Per Admitting Provider Patient is a pleasant 62yoF who presents to the ER for a 1 week history of worsening dyspnea, dyspnea on exertion, chest pounding, intermittent lightheadedness, and a 2 week history of dark black-like stool. She has a history of h. pylori treated 10 years ago, diverticulitis in the past year, and a history of colon polyps. Last colonoscopy 2 years ago was normal per pt. Other PMH includes: T2DM, GERD, Thyroid Cancer, Anxiety, STEWART on CPAP, CHF. She does wear oxygen at home, 1L at rest and 2L on exertion. Patient recently had cardiac stent placed (December 2017) and is on ASA and brillinta. Principal Diagnosis Anemia likely from GI blood loss Discharge Exam The patient appeared well nourished and normally developed. Morbidly obese. In distress at this time. Vital signs as documented. Head exam is unremarkable. normocephalic, atraumatic Neck is without jugular venous distension, thyromegaly, or lymphademopathy Lungs are clear Cardiac exam reveals Rhythm is regular. First and second heart sounds normal. Abdominal exam reveals normal bowel sounds, no masses, no organomegaly she is nontender Extremities are chronically edematous compressive stockings are in place and both pedal pulses are present Neurologic exam is A&Ox3, no focal deficits, strength is equal bilateral Psychologically seems neither anxious or depressed Skin is warm Dry without bruises or lesions Discharge Data Allergies Allergy/AdvReac Type Severity Reaction Status Date / Time shellfish derived Allergy Severe "SEAFOOD" Verified 08/16/18 21:13 -- HIVES and ANAPHLYAXIS sulfite Allergy Severe HIVES AND Verified 08/16/18 21:13 THROAT CLOSES Iodinated Contrast- Oral and Allergy Unknown UNKNOWN Verified 08/16/18 21:13 IV Dye iodine Allergy Unknown Unknown Verified 08/16/18 21:13 Consultations 08/16/18 22:16 ED Decision to Admit Stat 08/17/18 01:49 Consult Cardiology Routine Consult Gastroenterology Routine Procedures Performed Operation Date: 08/19/18 08:15 Actual Procedures p Esophagogastroduodenoscopy - Cali Sandoval MD Operation Date: 08/20/18 08:30 Actual Procedures p Colonoscopy Polypectomy - Cali Sandoval MD Hospital Course (1) GI bleeding: GI bleed/Symptomatic anemia -holding asa/brillinta her drug eluting stent was summer -consulted gi/consult cards in light of recent stent/regarding when to restart meds -Gastro completed an EGD today (08/19) colonscopy was also negative. Patient likely may require capsule endoscopy if bleeding recurs. -Cardio states that patient had a newer gen Drug eluting stent which was placed in 2018. -May consider stopping Brillinta fdc. -ASA has been restarted transfused 2 units prbc during hospital stay. -On antoprazole PO BID -Continue crestor/losartan On day prior to discharge patient developed angina on exertion -due to her angina, will consider this symptomatic anemia. Johnathan transfuse patient one more unit of PRBC. Will re-eval in AM. Also discussed case with cardio, who recommended to monitor her for another day. On day of discharge, patient was back to baseline. Discussed with cardiology who did not recommend further studies at this time Discharged on ASA. Stopped brillinta. (2) Symptomatic anemia: As noted above, melena has decreased but patient remains symptomatic at hemoglobin of 8. Outpatient records show hemogobin above 12. Will transfuse one unit of PRBC on day prior to discharge. Symptoms improved. Hemoglobin was 9.7 (3) Shortness of breath: CHF/CVD must be chronic diastolic heart failure -does not appear to be fluid overloaded at this time -Last echo december 2017 shows EF of 60% -Hold asa/brillinta as above, continue crestor Chronic hypioxic respiratory failure Chronic Oxygen requirement -Uses 1L at rest, 2L on exertion for past year -continue xopenex, montelukast, levalbuterol, advair Obstructive sleep apnea with the need for BiPAP at night (4) Diabetes: long acting insulin and ssi (5) GERD (gastroesophageal reflux disease): has a history will continue on ppi (6) Thyroid cancer: Thyroid Cancer -s/p partial thyroidectomy -cont home meds -reports there are "new lesions"--follows with [facility] (7) Elevated serum creatinine: Elevated creatinine -Diabetic nephropathy -CKD stage IIIb based on eGFR from labs dating to october 2017. (8) Hypokalemia: replete Total Time Total Time Spent Total Time Spent (In Minutes): 33 Total Time Includes: Examination of the Patient, Discharge Planning and Medication Reconciliation Discharge Plan Discharge Items Patient Disposition: Home - Self-Care Reason For Visit: ANEMIA, GI BLEED Discharge Diagnosis: Anemia/ GI bleed Discharge Goals: Decrease discomfort Activity: Resume your previous activity Non-emergency contact: Primary Care Provider and [employer] Call non-emergency contact if: you have any medication questions Diet: Regular Addtl Provider Instructions: Followup with GI within 1 month Followup with PCP in 1-2 weeks Followup with Cardio in about 1-2 months. YOU CAN TAKE MIRALAX for constipation for your iron. Prescriptions: New pantoprazole 40 mg Tablet,Delayed Release (Dr/Ec) 40 mg PO BID Qty: 60 RF: 0 ferrous sulfate 325 mg (65 mg iron) tablet,delayed release (DR/EC) 325 mg PO BID Qty: 60 RF: 0 Continue fluticasone [24 Hour Allergy Relief] 50 mcg/actuation [place],Suspension 2 spray INTRANASAL DAILY PRN (Reason: Allergy Symptoms) RF: 0 aspirin [Aspir-81] 81 mg Tablet,Delayed Release (Dr/Ec) 81 mg PO QAM RF: 0 montelukast 10 mg Tablet 10 mg PO PM RF: 0 losartan 50 mg tablet 50 mg PO QAM RF: 0 levothyroxine 75 mcg Tablet 75 mcg PO QAM RF: 0 rosuvastatin [Crestor] 40 mg Tablet 40 mg PO PM RF: 0 levalbuterol tartrate [Xopenex HFA] 45 mcg/actuation Hfa Aerosol Inhaler 2 inh INHALATION Q4H PRN (Reason: Shortness Of Breath Or Wheezing) RF: 0 furosemide 20 mg tablet 20 mg PO QAM RF: 0 insulin regular hum U-500 conc 500 unit/mL (3 mL) insulin pen 120 units subcut QPM RF: 0 insulin regular hum U-500 conc 500 unit/mL (3 mL) insulin pen 100 units subcut QAM RF: 0 fluticasone-salmeterol 250-50 mcg/dose blister with device 1 puff Inhalation BID RF: 0 epinephrine [EpiPen] 0.3 mg/0.3 mL Auto-Injector 0.3 mg IM DIRECTED PRN (Reason: Allergic Reaction) RF: 0 levalbuterol HCl 0.31 mg/3 mL Solution For Nebulization 0.31 mg INHALATION Q4H PRN (Reason: Wheezing) RF: 0 Discontinued ticagrelor [Brilinta] 90 mg tablet 90 mg PO BID RF: 0 Stand-Alone Forms: [facility] Discharge Orders: Discharge Order (Routine); Ordered 08/22/18 Ordered By: Ronaldo Munroe Admission Data Admit Date/Time: 08/16/18 23:32 Attending Provider: Ronaldo Munroe Admit Provider: Kelly Live Primary Care Provider: Aiyana Asencio Other Providers: Russell Quintero ; Louis Gee Service: Telemetry Medical Other Interventions: Discharge Summary Assessment (RN) Last Done: 08/22/18 12:58 DC Date/Time DO NOT enter until pt leaves facility: 08/22/18 14:00
--- NOTE | 2018-08-27 06:54 | Coding Query ---
CODING QUERY To promote full compliance with coding requirements relating to patient care, provider participation is requested in all cases of bobbin painter uncertainty. Please assist us with the question(s) below: Coding Question(s): The Discharge Summary documents, under GI Bleeding, that the Colonoscopy was negative. The Colonoscopy Report on 08/20/18 shows Impression of two polyps, Diverticulosis in the Sigmoid Colon and Non-bleeding internal hemorrhoids. Please clarify below, in your clinical opinion. ( ) GI Bleeding may possibly have been due to Diverticulosis in the Sigmoid Colon or one of the other findings on the Colonoscopy Report ( x) GI Bleeding was Not possibly due to Diverticulosis in the Sigmoid Colon or one of the other finding on the Colonoscopy Report Physician's Response(s): Unsure of cause. Patient will likely require a capsule endoscopy to find bleeding. Patient may likely have a venous malformation. Thank you Alma Beavers Principal Diagnosis: "�that condition established after study, to be chiefly responsible for occasioning the admission of the patient to the hospital for care." Co-Existing Principal Diagnosis: "�when two or more diagnoses equally meet the criteria for principal diagnosis as determined by the circumstances of admission , diagnostic work up, and/or therapy provided, and the Alphabetic Index, Tabular List, or another coding guideline does not provide sequencing direction , any one of the diagnoses may be sequenced first." "When the physician has documented what appears to be a current diagnosis in the body of the record, but has not included the diagnosis in the final diagnostic statement, the physician should be asked whether the diagnosis should be added." (Source Coding [facility] 2 QTR90. p3-4) ALEKS
== END 2018-08-22 14:00 | disposition home or self-care (01) ==
LOC: ED 16:49 → 2N 23:32 → SUATTDRO 23:32 → 2N 08-17 00:26

== ENCOUNTER 2018-10-25 15:37 | Inpatient (IN) ==
[2018-10-25 17:21] LABS: Appearance Urine Clear (Clear); Bacteria Urine Automated Negative (Negative); Bilirubin Urine Negative (Negative); Blood Urine Trace (Negative); Color Urine Yellow; Glucose Urine UA Negative (Negative); Ketones Urine Negative (Negative); Leukocyte Esterase Urine Negative (Negative); Nitrite Urine Negative (Negative); Protein Urine 2+ (Negative); RBC Urine Automated 0-4 /hpf (0-4); Specific Gravity Urine 1.013 (1.000-1.030); Urobilinogen Urine Negative (Negative)
--- NOTE | 2018-10-25 17:27 | XRay Report ---
XR chest 1V portable CLINICAL HISTORY: 63 years-old Female presenting with shortness of breath since last Sunday, now wors [facility]. TECHNIQUE: Portable upright AP view of the chest was obtained. COMPARISON: 10/04/2018. FINDINGS: Atherosclerosis of the aortic arch. Cardiac silhouette enlarged. Pulmonary vascular prominence and br onchial wall cuffing. Bilateral central and bibasilar predominant added density of the lungs. No larg e effusion or pneumothorax. Osseous structures normal. IMPRESSION: 1. Cardiomegaly with moderate pulmonary edema. Electronically signed by: Shaheen Costa M.D. 10/25/2018 5:25 PM
[2018-10-25 18:28] LABS: Basophils # (auto) 0.03 K/uL (0-0.2); Basophils % (auto) 0.3 %; Eosinophils # (auto) 0.24 K/uL (0-0.5); Eosinophils % (auto) 2.2 %; Hematocrit (blood only) 28.9 % (37-47); Hemoglobin 8.8 g/dL (12.0-16.0); Immature Granulocytes # (auto) 0.03 K/uL (0.00-0.02); Immature Granulocytes % (auto) 0.3 %; Lymphocytes # (auto) 2.75 K/uL (1.2-3.4); Lymphocytes % (auto) 24.9 %; Mean Corpuscular Hgb Conc 30.4 g/dL (32-36); Mean Corpuscular Volume 85.3 fL (80-100); Mean Platelet Volume 10.1 fL (7.4-10.4); Monocytes # (auto) 0.75 K/uL (0.11-0.59); Monocytes % (auto) 6.8 %; Neutrophils # (auto) 7.24 K/uL (1.4-6.5); Neutrophils % (auto) 65.5 %; Platelet Count 258 K/uL (130-400); RDW Coefficient of Variation 19.2 % (11.5-14.5); RDW Standard Deviation 59.9 fL (36.4-46.3); Red Blood Count 3.39 M/uL (4.2-5.4); White Blood Count 11.04 K/uL (4.8-10.8)
[2018-10-25 18:39] LABS: INR 1.1 (0.9-1.1); Partial Thromboplastin Ratio 0.9; Partial Thromboplastin Time 25.7 Seconds (21.0-31.0); Prothrombin Time 11.3 Seconds (9.0-12.0)
[2018-10-25 18:47] LABS: Alanine Aminotransferase 19 U/L (12-78); Albumin Level 2.9 gm/dl (3.4-5.0); Aspartate Aminotransferase 11 U/L (15-37); Blood Urea Nitrogen 25 mg/dl (7-18); Calcium 9.7 mg/dl (8.5-10.1); Carbon Dioxide 29 mmol/L (21-32); Chloride 106 mmol/L (98-107); Est GFR (African American) 60.5; Est GFR (Non-African American) 52.2; Glucose 156 mg/dl (70-99); Potassium 3.9 mmol/L (3.5-5.1); Sodium 141 mmol/L (136-145)
[2018-10-25 18:58] LABS: Albumin Globulin Ratio 0.6 (0.9-2); Alkaline Phosphatase 91 U/L (45-117); Bilirubin,Total 0.3 mg/dl (0.2-1); Globulin 4.7 gm/dl (2.5-4.0); NT Pro B Type Natriuretic Pept 127 pg/ml (0-900); Total Protein 7.6 gm/dl (6.4-8.2); Troponin I < 0.015 ng/ml (0-0.045)
[2018-10-25 19:31] LABS: Hypochromasia Present
--- NOTE | 2018-10-25 20:55 | Emergency Department Note ---
Entered by Cam Miller acting as a scribe for Rodri Hummel MD ED Provider Note CHIEF COMPLAINT: SOB/Melena/Anemia HISTORY OF PRESENT ILLNESS: The patient is a 63 year old female who presents to the Emergency Room with complaints of worsening shortness of breath. The patient states that he has been experiencing significant shortness of breath over the past couple of days. She states that she is fine when she is laying down and at rest, but has significant difficulty breathing with exertion such as walking up stairs as well as when she lays flat. There has not been any explicit chest pain. The patient states that she had blood work performed on October 16, 8 days ago, which showed a 1 point drop in her hemoglobin. She has transfused 3 units of blood in the past secondary to anemia. The patient also notes that she started to notice black stools today. She did have a colonoscopy performed recently, which showed "2 small pre-cancerous polyps" but no ulcers or sources of bleeding. The patient was previously on Brilinta, which was recently stopped. She does take a daily Aspirin. The patient also has a history of cardiac stent placement. She is on Lasix as well. Pt denies LOC, headache, fevers, chills, diaphoresis, visual changes, neck pain, nausea, vomiting, abdominal pain, back pain, urinary symptoms, numbness, weakness, lymphadenopathy, rash, or other complaints. REVIEW OF SYSTEMS: See HPI for pertinent positives and negatives. A total of ten systems were reviewed and were otherwise negative. PMHx/PSHx: DVT Anemia Hypokalemia GI Bleed Diabetes GERD Diverticulitis Thyroid Cancer Acute Respiratory Failure Unstable Angina SOCIAL HISTORY: Patient lives at home. PHYSICAL EXAM: GENERAL: Awake, alert, well-appearing, in no distress. Mildly dyspneic. HENT: Normocephalic, atraumatic. Oropharynx unremarkable. EYES: PERRL. Normal conjunctiva. Sclera non-icteric. NECK: Inspection normal. Non-tender. Supple. No nuchal rigidity. FROM. No masses. RESPIRATORY: Clear to auscultation. No wheezes. No rales. Mildly dyspneic. CARDIAC: Normal rate. Normal rhythm. No murmurs. No rubs. Extremities warm and well perfused. Pulses equal. No JVD. GI: Soft, non-distended. No tenderness to palpation. No rebound or guarding. No masses. RECTAL: Deferred. MUSCULOSKELETAL: Atraumatic. Chest examination reveals no tenderness. The back is symmetrical on inspection without obvious abnormality. There is no CVA tenderness to palpation. No joint edema. LOWER EXTREMITIES: Calves are equal size bilaterally and non-tender. No discoloration. 2+ LE edema. NEURO: Normal sensorium. No sensory or motor deficits noted. SKIN: No rash or jaundice noted. EMERGENCY DEPARTMENT COURSE: 1722: The patient was evaluated in room A12B, and a complete history and physical examination were performed. 1953: I reviewed the patient's case with Dr. Nixon - [facility] Hospitalist [facility]. He will evaluate the patient for further management. MEDICAL DECISION MAKING: Prior records/ancillary studies reviewed. The patient had a hemoglobin of 10.8 last month. She has dropped. She notes her last outpatient hemoglobin was in the 9 range. Triage Nursing notes reviewed and agree them. Additional history obtained from the the patient significant other. The patient's history was concerning for possible gastrointestinal bleeding. Differential diagnosis: Etiologies such as symptomatic anemia, CHF, diverticulosis, AVM, coagulopathy, colitis, inflammatory bowel disease, malignancy,Mary-Katz tear, esophagitis, peptic ulcer disease, variceal bleed, gastritis, DVT, PE, as well as others were entertained. Physical exam: As above. ER treatment provided: IV Zantac Diagnostics interpreted by me: ECG: No acute ischemia The labs revealed a moderate anemia and leukocytosis on CBC. Coags negative. Chemistry panel otherwise unremarkable. Urinalysis negative. Imaging studies: Chest x-ray revealed pulmonary edema. Ultrasound imaging ordered but is pending. The patient has recently had a GI bleed. Her hemoglobin is dropping again. She is symptomatic. Further evaluation in the hospital will be necessary. CT imaging was considered although the patient has a severe dye allergy and had renal issues last time she had contrast. The patient had an ultrasound ordered to evaluate for DVT as DVT/PE is a concern. Anticoagulation will be tricky given her current issues with GI bleeding. Consultation: A consultation was placed with the hospitalist, Dr. Jovon Nixon. The case was discussed and diagnostics were reviewed. The patient was evaluated in the ER for further treatment. IMPRESSION: Anemia SOB PLAN: Admit to [facility] Hospitalist service The scribe's documentation has been prepared under my direction and personally reviewed by me in its entirety. I confirm that the note above accurately reflects all work, treatment, procedures, and medical decision making performed by me. Impression & Plan Anemia, SOB (shortness of breath) Past Med/Surg History Medical History Diabetes (Chronic) GERD (gastroesophageal reflux disease) (Chronic) Diverticulitis (Resolved) Thyroid cancer (Resolved) Acute respiratory failure with hypoxia CHF (congestive heart failure) CAD S/P percutaneous coronary angioplasty (Chronic) Chronic respiratory failure (Chronic) 1 to 2 L oxygen Morbid obesity (Chronic) Surgical History H/O endoscopy H/O partial thyroidectomy History of colonoscopy History of percutaneous coronary intervention Family History Other No pertinent family history Social History Preferred Language: Spanish Beliefs That Will Affect Care: None Current Living Situation: Spouse Feels Safe at Home: Yes Smoking Status: Never smoker Hx Alcohol Use: No Hx Substance Use: No Results & Data Vital Signs Vital Signs - 24 hr 10/25/18 16:01 10/25/18 16:58 10/25/18 17:14 Temperature 36.6 C Temperature Source Oral Sepsis Recent Fever Within 48 Hours No Sepsis New/Unexplained Change in Mental Status No Sepsis Action Taken by Nursing No Action Required Pulse Rate 83 Pulse Rate [Apical] Pulse Rhythm Regular Respiratory Rate 22 Respiratory Effort / Characteristics Non-Labored Spontaneous Short of Breath SOB on Exertion Respiratory Depth Normal Deep Respiratory Pattern Regular Regular Blood Pressure 135/63 Blood Pressure [Right Arm] Blood Pressure Mean 87 Blood Pressure Mean [Right Arm] Blood Pressure Position Sitting Pulse Oximetry 99 99 Oxygen Delivery Method Nasal Cannula Nasal Cannula Nasal Cannula Oxygen Flow Rate 2 2 2 10/25/18 17:38 10/25/18 19:00 Temperature Temperature Source Sepsis Recent Fever Within 48 Hours Sepsis New/Unexplained Change in Mental Status Sepsis Action Taken by Nursing Pulse Rate Pulse Rate [Apical] 78 86 Pulse Rhythm Respiratory Rate 22 22 Respiratory Effort / Characteristics Non-Labored Respiratory Depth Respiratory Pattern Blood Pressure Blood Pressure [Right Arm] 155/62 H 173/64 H Blood Pressure Mean Blood Pressure Mean [Right Arm] 93 100 Blood Pressure Position Pulse Oximetry 99 99 Oxygen Delivery Method Nasal Cannula Nasal Cannula Oxygen Flow Rate 2 2 Home Medications Current Medication List: was personally reviewed by me Laboratory Data Attestation: I reviewed the patient's lab results. Result diagrams: 10/25/18 18:11 10/25/18 18:11 Lab Results 10/25/18 10/25/18 10/25/18 Range/Units 17:05 18:11 18:11 WBC 11.04 H (4.8-10.8) K/uL RBC 3.39 L (4.2-5.4) M/uL Hgb 8.8 L (12.0-16.0) g/dL Hct 28.9 L (37-47) % MCV 85.3 (80-100) fL MCH 26.0 (25-34) pg MCHC 30.4 L (32-36) g/dL RDW Std Deviation 59.9 H (36.4-46.3) fL RDW Coeff of Cherelle 19.2 H (11.5-14.5) % Plt Count 258 (130-400) K/uL MPV 10.1 (7.4-10.4) fL Immature Gran % (Auto) 0.3 % Neut % (Auto) 65.5 % Lymph % (Auto) 24.9 % [place] % (Auto) 6.8 % Eos % (Auto) 2.2 % Baso % (Auto) 0.3 % Immature Gran # (Auto) 0.03 H (0.00-0.02) K/uL Neut # (Auto) 7.24 H (1.4-6.5) K/uL Lymph # (Auto) 2.75 (1.2-3.4) K/uL [place] # (Auto) 0.75 H (0.11-0.59) K/uL Eos # (Auto) 0.24 (0-0.5) K/uL Baso # (Auto) 0.03 (0-0.2) K/uL Hypochromasia Present PT 11.3 (9.0-12.0) Seconds INR 1.1 (0.9-1.1) APTT 25.7 (21.0-31.0) Seconds PTT Ratio 0.9 Sodium (136-145) mmol/L Potassium (3.5-5.1) mmol/L Chloride (98-107) mmol/L Carbon Dioxide (21-32) mmol/L Anion Gap (3-11) BUN (7-18) mg/dl Creatinine (0.6-1.2) mg/dl Est Cr Clr Drug Dosing Est GFR ( Amer) Est GFR (Non-Af Amer) BUN/Creatinine Ratio (10-20) Glucose (70-99) mg/dl Calcium (8.5-10.1) mg/dl Total Bilirubin (0.2-1) mg/dl AST (15-37) U/L ALT (12-78) U/L Alkaline Phosphatase (45-117) U/L Troponin I (0-0.045) ng/ml NT-Pro-B Natriuret Pep (0-900) pg/ml Total Protein (6.4-8.2) gm/dl Albumin (3.4-5.0) gm/dl Globulin (2.5-4.0) gm/dl Albumin/Globulin Ratio (0.9-2) TSH (0.300-4.500) uIu/ml Urine Color Yellow Urine Appearance Clear (Clear) Urine pH 5.0 (4.5-7.5) Ur Specific [place] 1.013 (1.000-1.030) Urine Protein 2+ H (Negative) Urine Glucose (UA) Negative (Negative) Urine Ketones Negative (Negative) Urine Blood Trace H (Negative) Urine Nitrite Negative (Negative) Urine Bilirubin Negative (Negative) Urine Urobilinogen Negative (Negative) Ur Leukocyte Esterase Negative (Negative) Urine WBC (Auto) 1-5 (0-5) /hpf Urine RBC (Auto) 0-4 (0-4) /hpf U Hyaline Cast (Auto) 1-5 (0-5) /lpf U Epithel Cells (Auto) 5-10 H (0-5) /lpf Urine Bacteria (Auto) Negative (Negative) Blood Type Antibody Screen 10/25/18 10/25/18 Range/Units 18:11 18:11 WBC (4.8-10.8) K/uL RBC (4.2-5.4) M/uL Hgb (12.0-16.0) g/dL Hct (37-47) % MCV (80-100) fL MCH (25-34) pg MCHC (32-36) g/dL RDW Std Deviation (36.4-46.3) fL RDW Coeff of Cherelle (11.5-14.5) % Plt Count (130-400) K/uL MPV (7.4-10.4) fL Immature Gran % (Auto) % Neut % (Auto) % Lymph % (Auto) % [place] % (Auto) % Eos % (Auto) % Baso % (Auto) % Immature Gran # (Auto) (0.00-0.02) K/uL Neut # (Auto) (1.4-6.5) K/uL Lymph # (Auto) (1.2-3.4) K/uL [place] # (Auto) (0.11-0.59) K/uL Eos # (Auto) (0-0.5) K/uL Baso # (Auto) (0-0.2) K/uL Hypochromasia PT (9.0-12.0) Seconds INR (0.9-1.1) APTT (21.0-31.0) Seconds PTT Ratio Sodium 141 (136-145) mmol/L Potassium 3.9 (3.5-5.1) mmol/L Chloride 106 (98-107) mmol/L Carbon Dioxide 29 (21-32) mmol/L Anion Gap 7.0 (3-11) BUN 25 H (7-18) mg/dl Creatinine 1.12 (0.6-1.2) mg/dl Est Cr Clr Drug Dosing Not Reportable Est GFR ( Amer) 60.5 Est GFR (Non-Af Amer) 52.2 BUN/Creatinine Ratio 22.0 H (10-20) Glucose 156 H (70-99) mg/dl Calcium 9.7 (8.5-10.1) mg/dl Total Bilirubin 0.3 (0.2-1) mg/dl AST 11 L (15-37) U/L ALT 19 (12-78) U/L Alkaline Phosphatase 91 (45-117) U/L Troponin I < 0.015 (0-0.045) ng/ml NT-Pro-B Natriuret Pep 127 (0-900) pg/ml Total Protein 7.6 (6.4-8.2) gm/dl Albumin 2.9 L (3.4-5.0) gm/dl Globulin 4.7 H (2.5-4.0) gm/dl Albumin/Globulin Ratio 0.6 L (0.9-2) TSH 1.750 (0.300-4.500) uIu/ml Urine Color Urine Appearance (Clear) Urine pH (4.5-7.5) Ur Specific [place] (1.000-1.030) Urine Protein (Negative) Urine Glucose (UA) (Negative) Urine Ketones (Negative) Urine Blood (Negative) Urine Nitrite (Negative) Urine Bilirubin (Negative) Urine Urobilinogen (Negative) Ur Leukocyte Esterase (Negative) Urine WBC (Auto) (0-5) /hpf Urine RBC (Auto) (0-4) /hpf U Hyaline Cast (Auto) (0-5) /lpf U Epithel Cells (Auto) (0-5) /lpf Urine Bacteria (Auto) (Negative) Blood Type A Positive Antibody Screen NEGATIVE Administered Medications Discontinued Medications Ranitidine HCl 50 mg/ Dextrose 102 mls @ 200 mls/hr IV NOW STA Stop: 10/25/18 19:39 Last Infusion: 10/25/18 20:14 Dose: 0 mls/hr Documented by: [id number] Admin: 10/25/18 19:43 Dose: 200 mls/hr Documented by: [id number] Imaging Data Attestation: I personally reviewed and interpreted this imaging study as follows: Radiologist's Impression: XR chest 1V portable CLINICAL HISTORY: 63 years-old Female presenting with shortness of breath since last Sunday, now worsening. TECHNIQUE: Portable upright AP view of the chest was obtained. COMPARISON: 10/04/2018. FINDINGS: Atherosclerosis of the aortic arch. Cardiac silhouette enlarged. Pulmonary vascular prominence and bronchial wall cuffing. Bilateral central and bibasilar predominant added density of the lungs. No large effusion or pneumothorax. Osseous structures normal. IMPRESSION: 1. Cardiomegaly with moderate pulmonary edema. Electronically signed by: Shaheen Costa M.D. 10/25/2018 5:25 PM ECG Data Attestation: I personally reviewed and interpreted this ECG as follows: Indication: SOB/dyspnea Rate (beats per minute): 83 Rhythm: normal sinus Findings: no PAC, no PVC, no ST depression and no ST elevation Blood Pressure Blood Pressure Findings: Normal blood pressure Discharge Plan Visit Data Chief Complaint: Shortness of Breath/Dyspnea Stated Complaint: DIFFICULTY BREATHING, LOW RBC COUNT, BLACK STOOL ED Provider: Rodri Hummel Discharge Problem: Anemia, SOB (shortness of breath) Patient Disposition: Being Evaluated by Hospitalist Forms Stand Alone Forms: [facility] Prescriptions Prescriptions: No Action fluticasone propionate [24 Hour Allergy Relief] 50 mcg/actuation [place],Suspension 2 spray INTRANASAL DAILY PRN (Reason: Allergy Symptoms) RF: 0 aspirin [Aspir-81] 81 mg Tablet,Delayed Release (Dr/Ec) 81 mg PO QAM RF: 0 montelukast 10 mg Tablet 10 mg PO PM RF: 0 losartan 50 mg tablet 50 mg PO QAM RF: 0 rosuvastatin [Crestor] 40 mg Tablet 40 mg PO PM RF: 0 levalbuterol tartrate [Xopenex HFA] 45 mcg/actuation Hfa Aerosol Inhaler 2 inh INHALATION Q4H PRN (Reason: Shortness Of Breath Or Wheezing) RF: 0 furosemide 20 mg tablet 20 mg PO QAM RF: 0 insulin regular hum U-500 conc 500 unit/mL (3 mL) insulin pen 120 units subcut QPM RF: 0 insulin regular hum U-500 conc 500 unit/mL (3 mL) insulin pen 50 units subcut BID RF: 0 fluticasone propion-salmeterol 250-50 mcg/dose blister with device 1 puff Inhalation BID PRN (Reason: Unknown) RF: 0 epinephrine [EpiPen] 0.3 mg/0.3 mL Auto-Injector 0.3 mg IM DIRECTED PRN (Reason: Allergic Reaction) RF: 0 levalbuterol HCl 0.31 mg/3 mL Solution For Nebulization 0.31 mg INHALATION TID PRN (Reason: Wheezing) RF: 0 ferrous sulfate 325 mg (65 mg iron) tablet,delayed release (DR/EC) 325 mg PO BID Qty: 60 RF: 0 levothyroxine 88 mcg Tablet 88 mcg PO DAILY RF: 0 loperamide [Imodium A-D] 2 mg Capsule 2 mg PO UD PRN (Reason: Diarrhea) RF: 0 Referrals Referrals: Aiyana Asencio MD [Primary Care Provider] - Discharge Problem: Anemia Qualifiers: Anemia type: unspecified type Qualified Code(s): D64.9 - Anemia, unspecified The scribe's documentation has been prepared under my direction and personally reviewed by me in its entirety. I confirm that the note above accurately reflects all work, treatment, procedures, and medical decision making performed by me.
--- NOTE | 2018-10-25 21:29 | History & Physical Report ---
Date of Service October 25, 2018 Assessment & Plan (1) Anemia: - Hgb 8.8 (10.6 on 09/19) - Has had extensive workup with GI including Endoscopy, Colonoscopy, and Capsule Endoscopy that have been negative although due to stool complaints and recurrent anemia have high suspicion for GI Bleed - NPO - GI Consult - q4h H/H - Protonix 80mg IV Push, 40mg IV BID after - Hemoccult testing - Hold Aspirin overnight (2) SOB (shortness of breath): - Patient has had persistent shortness of breath for over 1 year although appears to have worsening shortness of breath with exertion over the last week. Possibly 2/2 pulmonary edema on CXR although recent Echo shows normal heart function. Will ordered CT Chest to assess for further respiratory pathology - Patient was last seen by Dr. Ruiz on 10/07/18 and was doing well at that time, recovering from a PNA she experience in the middle of August - Supplemental O2 to maintain SpO2 > 90% - Continue inhalers: Advair, levalbuterol PRN, montelukast, and Xopenex - CXR: Cardiomegaly with moderate pulmonary edema. - Lasix 40mg IV ordered + Continue home Lasix 20mg PO Daily - LE Dopplers: No visible DVTs - Last Echo 09/19/17 shows EF 65-70% with normal LV systolic function - CT Chest w/o Contrast ordered (3) Hypertension: - Continue home Losartan - Started Metoprolol 25mg PO BID (started today at Cardiology visit) (4) Coronary artery disease: - BIB placed in Circumflex Artery 01/07 - Holding Aspirin - Started on Metoprolol Tartrate 25mg PO Daily in Cardiology clinic today - Currently holding Aspirin due to ongoing bleed --> Reassess tomorrow morning after discussing with GI and monitoring H/H because this is the only antiplatelet therapy she is on at this time (Brilinta d/c's with GI bleed in 09/09) (5) Diabetes: - Continue home insulin regimen - SSI with BSG AC/HS (6) GERD (gastroesophageal reflux disease): - IV Protonix (7) Hypothyroidism: - Continue home Synthroid (8) DVT prophylaxis: - SCDs (concern of GI bleed) History of Present Illness Primary Care Provider: Aiyana Asencio MD Patient is a 63 year old female with a past medical history of CAD, HTN, HLD, DM, Anemia with GI bleed, Diverticulitis, and Hypothyroidism that presents with progressive shortness of breath. The patient has been dealing with respiratory issues over the past year that started when she was diagnosed with Influenza in August of 2017. The patient is currently on home Oxygen (2L with ambulation), and has been progressively desaturating to the point where she is now dropping into the 70's at home with ambulation. She denies any cough, wheezing, sputum production, fevers, or other symptoms of acute illness. The patient has also complained of a dark stool this morning that appeared black and tarry in appearance. The patient was admitted in August of 2018 with a GI bleed while on Brilinta. The patient required 3 transfusions during that admission and her last recorded hemoglobin was 10.6 on 09/19. She denies any gross blood in the toilet or blood on the toilet paper. She denies any lightheadedness, syncopal episodes, chest pain, shortness of breath, or any other acute abnormalities. Allergies Allergy/AdvReac Type Severity Reaction Status Date / Time shellfish derived Allergy Severe "SEAFOOD" Verified 10/25/18 17:23 -- HIVES and ANAPHLYAXIS sulfite Allergy Severe HIVES AND Verified 10/25/18 17:23 THROAT CLOSES Iodinated Contrast- Oral and Allergy Unknown UNKNOWN Verified 10/25/18 17:23 IV Dye iodine Allergy Unknown Unknown Verified 10/25/18 17:23 Home Medications Home Medications Medication Instructions Recorded Confirmed Type aspirin [Aspir-81] 81 mg PO QAM 03/25/18 10/25/18 History fluticasone propionate [24 Hour 2 spray INTRANASAL DAILY PRN 03/25/18 10/25/18 History Allergy Relief] montelukast 10 mg PO PM 03/25/18 10/25/18 History levalbuterol tartrate [Xopenex HFA] 2 inh INHALATION Q4H PRN 06/25/18 10/25/18 History losartan 50 mg PO QAM 06/25/18 10/25/18 History rosuvastatin [Crestor] 40 mg PO PM 06/25/18 10/25/18 History epinephrine [EpiPen] 0.3 mg IM DIRECTED PRN 08/16/18 10/25/18 History fluticasone propion-salmeterol 1 puff INHALATION BID PRN 08/16/18 10/25/18 History furosemide 20 mg PO QAM 08/16/18 10/25/18 History insulin regular hum U-500 conc 50 units SUBCUT BID 08/16/18 10/25/18 History insulin regular hum U-500 conc 120 units SUBCUT QPM 08/16/18 10/25/18 History levalbuterol HCl 0.31 mg INHALATION TID PRN 08/16/18 10/25/18 History ferrous sulfate 325 mg PO BID #60 tab 08/22/18 10/25/18 Rx loperamide [Imodium A-D] 2 mg PO UD PRN 09/19/18 10/25/18 History levothyroxine 88 mcg PO DAILY 10/25/18 10/25/18 History Past Med/Surg History Medical History Diabetes (Chronic) GERD (gastroesophageal reflux disease) (Chronic) Diverticulitis (Resolved) Thyroid cancer (Resolved) Acute respiratory failure with hypoxia CHF (congestive heart failure) CAD S/P percutaneous coronary angioplasty (Chronic) Chronic respiratory failure (Chronic) 1 to 2 L oxygen Morbid obesity (Chronic) Surgical History H/O endoscopy H/O partial thyroidectomy History of colonoscopy History of percutaneous coronary intervention Family History Other No pertinent family history Social History Preferred Language: Grenadian 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 Ability: Effective Vocational Rehabilitation Supervisor Required: No Beliefs That Will Affect Care: None Current Living Situation: Spouse Other Information That Helps Us Care for You: No Feels Safe at Home: Yes Safety Concerns: Feels Safe At This Time Smoking Status: Never smoker Hx Alcohol Use: No Hx Substance Use: No Review of Systems See HPI for pertinent positives and negatives. A total of ten systems were reviewed and were otherwise negative. Physical Exam Vital Signs (Past 24 Hours): Last Vital Signs Temp 36.6 C 10/25/18 16:01 Pulse 78 10/25/18 20:57 Resp 24 10/25/18 20:57 BP 145/71 H 10/25/18 20:57 Pulse Ox 98 10/25/18 20:57 GENERAL: Morbidly Obese, Awake, aler t, well-appearing, in no distress HE NT: Normocephalic, atraumatic. EYES : Normal conjuncti va. Sclera non-ict melvi. NECK: Supple . RESPIRATORY: De creased breath mark nds due to morbid obesity, crackles over the lower lob es bilaterally wit h some questionabl e rhochi over the right lower side. CARDIAC: Regular r ate, normal rhythm . Extremities warm and well perfused . Pulses equal. AB DOMEN: Soft, non-d istended. No tende rness to palpation . RECTAL: Deferred . MUSCULOSKELETAL: Chest examination reveals no tender ness. The back is symmetrical on ins pection without ob vious abnormality. There is no CVA t enderness to palpa tion. No joint selvin ma. LOWER EXTREMI TIES: Chronic lymp hedema over the lo wer extremities wi th no visible eryt jonathon. Chronic lowe r extremity stasis changes NEURO: N ormal sensorium. N o sensory or motor deficits noted. SKIN: No rash or j aundice noted. Results & Data Laboratory Results Abnormal lab results 10/25/18 10/25/18 10/25/18 Range/Units 17:05 18:11 18:11 WBC 11.04 H (4.8-10.8) K/uL RBC 3.39 L (4.2-5.4) M/uL Hgb 8.8 L (12.0-16.0) g/dL Hct 28.9 L (37-47) % MCHC 30.4 L (32-36) g/dL RDW Std Deviation 59.9 H (36.4-46.3) fL RDW Coeff of Cherelle 19.2 H (11.5-14.5) % Immature Gran # (Auto) 0.03 H (0.00-0.02) K/uL Neut # (Auto) 7.24 H (1.4-6.5) K/uL [place] # (Auto) 0.75 H (0.11-0.59) K/uL BUN 25 H (7-18) mg/dl BUN/Creatinine Ratio 22.0 H (10-20) Glucose 156 H (70-99) mg/dl AST 11 L (15-37) U/L Albumin 2.9 L (3.4-5.0) gm/dl Globulin 4.7 H (2.5-4.0) gm/dl Albumin/Globulin Ratio 0.6 L (0.9-2) Urine Protein 2+ H (Negative) Urine Blood Trace H (Negative) U Epithel Cells (Auto) 5-10 H (0-5) /lpf Supervising Physician Co-Signing Physician Notes Attending addendum: I have physically seen this patient, have supervised the medical residents activities, and agree with the H&P unless as otherwise noted. Assessment and Plan: Anemia-- Hemoglobin 8.8 upon admission, with most recent 10.6 on 09/19. NPO H&H every 4 hours. IV Protonix. Hold aspirin. Consult gastroenterology. Has had extensive workup including EGD, colonoscopy and VCE. Shortness of breath-- Likely combination of progressive anemia and CHF/pulmonary edema. Give Lasix 40 mg IV now then continue 20 mg p.o. daily starting tomorrow. Order CT chest without contrast to look for occult disease. Continue usual inhalers from at home: Advair, Xopenex, montelukast and levalbuterol as needed. Remainder of orders and notations as noted. Resident Activity Tracking Resident Involvement: Resident Care Provided Care Provided: Adult Hospital Medicine (1) Anemia Anemia type: unspecified type Qualified Code(s): D64.9 - Anemia, unspecified
--- NOTE | 2018-10-25 22:27 | Ultrasound Report ---
US venous doppler LE CLINICAL HISTORY: 63 years-old Female presenting with lower extremity swelling, eval for dvt. TECHNIQUE: Real-time grayscale and color and spectral Doppler ultrasound imaging of the veins of the bilateral lower extremities was performed. Compression and augmentation were also utilized. COMPARISON: 09/12/2018. FINDINGS: RIGHT: Common femoral vein: Patent. Greater saphenous vein (superficial): Patent. Deep femoral vein: Patent. Femoral vein: Patent. Popliteal vein: Patent. Calf veins: Limited visualization. LEFT: Common femoral vein: Patent. Greater saphenous vein (superficial): Patent. Deep femoral vein: Patent. Femoral vein: Patent. Popliteal vein: Patent. Calf veins: Limited visualization. Other: 2.2 x 5.4 x 2.5 cm laminar and lobular centrally anechoic collection in the right popliteal fo ssa, most likely popliteal cyst. IMPRESSION: 1. No evidence of deep venous thrombosis. 2. Suspected right popliteal cyst. Electronically signed by: Shaheen Costa M.D. 10/25/2018 10:26 PM
[2018-10-25] MEDS ORDERED: PANTOprazole 40 MG in DEXTROSE 5% 100 ML IV SCH (23:07)
[2018-10-25] MEDS ORDERED: PANTOPRAZOLE BOLUS/DRIP 1 EA IV STA (23:07)
[2018-10-25] MEDS ORDERED: GLUCAGON FOR INJ 1 MG VIAL SQ PRN (23:07)
[2018-10-25] MEDS ORDERED: PANTOprazole 80 MG in DEXTROSE 5% 100 ML IV ONE (23:07)
[2018-10-25] MEDS ORDERED: LEVALBUTEROL 0.31MG/3 ML VIAL INH PRN (23:07)
[2018-10-25] MEDS ORDERED: GLUCOSE 40% GEL 15 GM TUBE PO PRN (23:07)
[2018-10-25] MEDS ORDERED: DEXTROSE 50% 50 ML SYRINGE IV PRN (23:07)
[2018-10-25] MEDS ORDERED: GLUCOSE 10 TABS/TUBE PO PRN (23:07)
[2018-10-25] MEDS ORDERED: FUROSEMIDE 40 MG/4 ML VIAL IV STA (23:07)
[2018-10-25] MEDS ORDERED: LOPERAMIDE HCL 2 MG CAP PO PRN (23:07)
[2018-10-25] MEDS ORDERED: LEVALBUTEROL TARTRATE 15 GM HFA.AER.AD INH PRN (23:07)
[2018-10-25] MEDS ORDERED: FLUTICASONE PROPIONATE NA SPR 16 GM BTL PRN (23:07)
[2018-10-25] MEDS ORDERED: ACETAMINOPHEN 325 MG TAB PO PRN (23:07)
[2018-10-25] MEDS ORDERED: POLYETHYLENE (MIRALAX) 17 GM PACK PO PRN (23:07)
[2018-10-25] MEDS ORDERED: EPINEPHRINE ADULT AUTO-INJECT 0.3 MG SYR IM PRN (23:07)
[2018-10-25] MEDS ORDERED: FUROSEMIDE 40 MG in SYRINGE 0 ML IV SCH (23:15)
[2018-10-25 23:28] LABS: Hematocrit (blood only) 29.2 % (37-47); Hemoglobin 8.9 g/dL (12.0-16.0)
[2018-10-26] MEDS ORDERED: INSULIN GLARGINE SOLOSTAR 100 UNITS/ML 3 ML PEN SC SCH ×2 (00:15→09:00)
[2018-10-26] MEDS: SODIUM CHLORIDE 0.9% 1000ML 1,000 ML IV SCH ×3 (00:28→16:10)
[2018-10-26] MEDS: METOPROLOL TARTRATE 25 MG TAB PO SCH ×3 (00:31→20:52)
[2018-10-26 03:40] LABS: Mean Corpuscular Hgb Conc 30.4 g/dL (32-36); Mean Platelet Volume 10.5 fL (7.4-10.4); Nucleated RBC # (auto) 0.02 K/uL (0-0); Nucleated RBC % (auto) 0.2 %; Platelet Count 267 K/uL (130-400)
[2018-10-26 04:00] LABS: BUN Creatinine Ratio 20.1 (10-20); Calcium 8.8 mg/dl (8.5-10.1); Creatinine Clr Calc Pharmacy 65.4 ml/min; Est GFR (African American) 54.6; Est GFR (Non-African American) 47.1
[2018-10-26 04:04] LABS: Basophils # (auto) 0.03 K/uL (0-0.2); Basophils % (auto) 0.2 %; Eosinophils # (auto) 0.24 K/uL (0-0.5); Hematocrit (blood only) 27.6 % (37-47); Hemoglobin 8.4 g/dL (12.0-16.0); Hypochromasia Present; Immature Granulocytes # (auto) 0.04 K/uL (0.00-0.02); Immature Granulocytes % (auto) 0.3 %; Lymphocytes # (auto) 2.65 K/uL (1.2-3.4); Lymphocytes % (auto) 21.7 %; Mean Corpuscular Volume 84.9 fL (80-100); Monocytes # (auto) 0.92 K/uL (0.11-0.59); Monocytes % (auto) 7.5 %; Neutrophils # (auto) 8.32 K/uL (1.4-6.5); Neutrophils % (auto) 68.3 %; Polychromasia 1+; RDW Coefficient of Variation 19.4 % (11.5-14.5); RDW Standard Deviation 61.1 fL (36.4-46.3); Red Blood Count 3.25 M/uL (4.2-5.4)
[2018-10-26] MEDS ORDERED: PHARMACY GLYCEMIC MGMT CONSULT PRN ×2 (05:35→07:14)
[2018-10-26] MEDS: INSULIN ASPART 100 UNITS/ML 3 ML PEN SC SCH ×4 (06:17→20:43)
[2018-10-26] MEDS: LEVOTHYROXINE SODIUM 88 MCG TABLET PO SCH (06:17)
[2018-10-26 07:30] LABS: Hematocrit (blood only) 29.2 % (37-47); Hemoglobin 8.8 g/dL (12.0-16.0); Hemoglobin 8.9 g/dL (12.0-16.0)
[2018-10-26] MEDS ORDERED: INSULIN ASPART 100 UNITS/ML 3 ML PEN SC SCH (07:30)
--- NOTE | 2018-10-26 07:56 | CT Scan Report ---
CT chest wo con CT DOSE: 1126.08 mGy.cm CLINICAL HISTORY: 63 years-old Female with Shortness of breath. Acute shortness of breath TECHNIQUE: Multiaxial CT images of the chest were performed without contrast. A dose lowering techni que was utilized adhering to the principles of ALARA. COMPARISON: Chest radiograph of same day, CT chest 03/19/2018. FINDINGS: Heterogeneous thyroid goiter with calcifications. Mediastinal and hilar adenopathy redemonstrated. Co nglomerate paratracheal adenopathy on image 100 series 4 measures 2.6 x 1.3 cm, previously 2.1 x 0.8 cm. Prevascular lymph nodes are seen measuring up to 2.0 x 1.8 cm, previously 1.4 x 1.0 cm. Subcarina l lymph nodes measure up to 2.7 x 1.2 cm, previously 2.0 x 0.97 m. Heart is upper limits of normal in size. Coronary arterial calcifications are noted along with trace pericardial effusion. No thoracic aortic aneurysm. Trace bilateral pleural effusions. No pneumothorax. Mild bilateral intralobular septal thickening is noted in conjunction with mosaic attenuation and mild bilateral bronchial wall thickening and intermi xed groundglass densities. A few scattered calcified granulomata are noted. Mild linear subsegmental bibasilar atelectasis. Central airways appear to be patent. No acute process of the imaged upper abdomen. Soft tissues are unremarkable. Degenerative changes of the shoulders and spine. IMPRESSION: 1. Suggestion of mild pulmonary edema with trace pleural effusions and mild bibasilar atelectasis. 2. Mediastinal and hilar adenopathy has slightly progressed from 03/19/2018, nonspecific. 3. Multinodular goiter. 4. Prior granulomatous disease. Electronically signed by: Aramis Katz M.D. 10/26/2018 7:54 AM
[2018-10-26] MEDS ORDERED: INSULIN REGULAR HUM U SQ SCH ×2 (09:00→21:00)
--- NOTE | 2018-10-26 09:52 | History & Physical Report ---
Date of Service October 26, 2018 Assessment & Plan (1) GI bleeding: Patient presenting with shortness of breath, hypoxia and worsening anemia. She has had a fairly extensive endoscopic evaluation to include upper endoscopy, colonoscopy and even wireless capsule endoscopy in the recent past without a specific cause to her symptoms. Based on the patient's history I would wonder about a small bowel arteriovenous malformation as being the most likely etiology to her recurrent melena. Given her history perhaps the best option for this patient is a referral to a tertiary center with balloon enteroscopy capabilities. Recommendations Consider referral to tertiary center for balloon assisted enteroscopy Consider intravenous iron supplementation History of Present Illness Chief Complaint: anemia Primary Care Provider: Aiyana Asencio MD The patient is a 63-year-old orbitally obese female who presented to the emergency room yesterday with progressive shortness of breath, desaturation and worsening anemia. The patient has a history of melena and recently underwent both an upper endoscopy and colonoscopy without any specific etiologies. This was followed by wireless capsule endoscopy which was normal as well. The patient notes that yesterday she developed several episodes of dark stool which have not occurred. And fevers chills and sweats but does admit to shortness of breath and weakness. The patient had previously been on dual antiplatelet therapy which was transitioned to monotherapy with aspirin due to underlying cardiac stents. She is also maintained on oral iron 1 time daily. Today she denies having any hematemesis or dark sticky stool. Allergies Allergy/AdvReac Type Severity Reaction Status Date / Time shellfish derived Allergy Severe "SEAFOOD" Verified 10/25/18 17:23 -- HIVES and ANAPHLYAXIS sulfite Allergy Severe HIVES AND Verified 10/25/18 17:23 THROAT CLOSES Iodinated Contrast- Oral and Allergy Unknown UNKNOWN Verified 10/25/18 17:23 IV Dye iodine Allergy Unknown Unknown Verified 10/25/18 17:23 Home Medications Home Medications Medication Instructions Recorded Confirmed Type aspirin [Aspir-81] 81 mg PO QAM 03/25/18 10/25/18 History fluticasone propionate [24 Hour 2 spray INTRANASAL DAILY PRN 03/25/18 10/25/18 History Allergy Relief] montelukast 10 mg PO PM 03/25/18 10/25/18 History levalbuterol tartrate [Xopenex HFA] 2 inh INHALATION Q4H PRN 06/25/18 10/25/18 History losartan 50 mg PO QAM 06/25/18 10/25/18 History rosuvastatin [Crestor] 40 mg PO PM 06/25/18 10/25/18 History epinephrine [EpiPen] 0.3 mg IM DIRECTED PRN 08/16/18 10/25/18 History fluticasone propion-salmeterol 1 puff INHALATION BID PRN 08/16/18 10/25/18 History furosemide 20 mg PO QAM 08/16/18 10/25/18 History insulin regular hum U-500 conc 50 units SUBCUT BID 08/16/18 10/25/18 History insulin regular hum U-500 conc 120 units SUBCUT QPM 08/16/18 10/25/18 History levalbuterol HCl 0.31 mg INHALATION TID PRN 08/16/18 10/25/18 History ferrous sulfate 325 mg PO BID #60 tab 08/22/18 10/25/18 Rx loperamide [Imodium A-D] 2 mg PO UD PRN 09/19/18 10/25/18 History levothyroxine 88 mcg PO DAILY 10/25/18 10/25/18 History Past Med/Surg History Medical History Diabetes (Chronic) GERD (gastroesophageal reflux disease) (Chronic) Diverticulitis (Resolved) Thyroid cancer (Resolved) Acute respiratory failure with hypoxia CHF (congestive heart failure) CAD S/P percutaneous coronary angioplasty (Chronic) Chronic respiratory failure (Chronic) 1 to 2 L oxygen Morbid obesity (Chronic) Surgical History H/O endoscopy H/O partial thyroidectomy History of colonoscopy History of percutaneous coronary intervention Family History Other No pertinent family history Social History Preferred Language: Iranian 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 Ability: Effective Android Framework Developer Required: No Beliefs That Will Affect Care: None Current Living Situation: Spouse Other Information That Helps Us Care for You: No Feels Safe at Home: Yes Safety Concerns: Feels Safe At This Time Smoking Status: Never smoker Hx Alcohol Use: No Hx Substance Use: No Review of Systems Constitutional: + malaise; no fever, no sweats and no weight loss Eyes: no diplopia Respiratory: + dyspnea; no cough, no change in sputum and no hemoptysis Cardiovascular: no chest pain with activity Gastrointestinal: + melena; no bloating, no nausea and no hematemesis Genitourinary (Female): no dysuria and no urinary frequency Neurologic: no falls and no paralysis Psychiatric: no hopelessness, no change in appetite and no suicidal ideation Endocrine: + fatigue; no polydipsia Hematologic / Lymphatic: no coagulopathy Physical Exam Vital Signs (Past 24 Hours): Last Vital Signs Temp 36.6 C 10/26/18 07:54 Pulse 71 10/26/18 09:37 Resp 20 10/26/18 07:54 BP 118/76 10/26/18 07:54 Pulse Ox 99 10/26/18 07:54 Constitutional: + obese; no acute distress Eyes: PERRL, conjunctivae normal, anicteric sclerae Neck: trachea midline, no thyromegaly Respiratory: normal respiratory effort, lungs clear to auscultation no retractions, no dullness to percussion and no cough Cardiovascular: Rate/Rhythm: regular rate Heart Sounds: + murmur Gastrointestinal (Abdomen): normal bowel sounds, soft, nontender, no hepatosplenomegaly Musculoskeletal: Bilateral lower extremity edema noted Skin: no rashes, warm and dry no jaundice Results & Data Laboratory Results Laboratory Results - last 24 hr 10/25/18 10/25/18 10/25/18 17:05 18:11 18:11 WBC 11.04 H RBC 3.39 L Hgb 8.8 L Hct 28.9 L MCV 85.3 MCH 26.0 MCHC 30.4 L RDW Std Deviation 59.9 H RDW Coeff of Cherelle 19.2 H Plt Count 258 MPV 10.1 Immature Gran % (Auto) 0.3 Neut % (Auto) 65.5 Lymph % (Auto) 24.9 [place] % (Auto) 6.8 Eos % (Auto) 2.2 Baso % (Auto) 0.3 Immature Gran # (Auto) 0.03 H Neut # (Auto) 7.24 H Lymph # (Auto) 2.75 [place] # (Auto) 0.75 H Eos # (Auto) 0.24 Baso # (Auto) 0.03 Absolute Nucleated RBC Nucleated RBC % (auto) Polychromasia Hypochromasia Present PT 11.3 INR 1.1 APTT 25.7 PTT Ratio 0.9 Sodium Potassium Chloride Carbon Dioxide Anion Gap BUN Creatinine Est Cr Clr Drug Dosing Est GFR ( Amer) Est GFR (Non-Af Amer) BUN/Creatinine Ratio Glucose POC Glucose Calcium Total Bilirubin AST ALT Alkaline Phosphatase Troponin I NT-Pro-B Natriuret Pep Total Protein Albumin Globulin Albumin/Globulin Ratio TSH Urine Color Yellow Urine Appearance Clear Urine pH 5.0 Ur Specific [place] 1.013 Urine Protein 2+ H Urine Glucose (UA) Negative Urine Ketones Negative Urine Blood Trace H Urine Nitrite Negative Urine Bilirubin Negative Urine Urobilinogen Negative Ur Leukocyte Esterase Negative Urine WBC (Auto) 1-5 Urine RBC (Auto) 0-4 U Hyaline Cast (Auto) 1-5 U Epithel Cells (Auto) 5-10 H Urine Bacteria (Auto) Negative Blood Type Antibody Screen 10/25/18 10/25/18 10/25/18 18:11 18:11 22:41 WBC RBC Hgb Hct MCV MCH MCHC RDW Std Deviation RDW Coeff of Cherelle Plt Count MPV Immature Gran % (Auto) Neut % (Auto) Lymph % (Auto) [place] % (Auto) Eos % (Auto) Baso % (Auto) Immature Gran # (Auto) Neut # (Auto) Lymph # (Auto) [place] # (Auto) Eos # (Auto) Baso # (Auto) Absolute Nucleated RBC Nucleated RBC % (auto) Polychromasia Hypochromasia PT INR APTT PTT Ratio Sodium 141 Potassium 3.9 Chloride 106 Carbon Dioxide 29 Anion Gap 7.0 BUN 25 H Creatinine 1.12 Est Cr Clr Drug Dosing Not Reportable Est GFR ( Amer) 60.5 Est GFR (Non-Af Amer) 52.2 BUN/Creatinine Ratio 22.0 H Glucose 156 H POC Glucose 131 H Calcium 9.7 Total Bilirubin 0.3 AST 11 L ALT 19 Alkaline Phosphatase 91 Troponin I < 0.015 NT-Pro-B Natriuret Pep 127 Total Protein 7.6 Albumin 2.9 L Globulin 4.7 H Albumin/Globulin Ratio 0.6 L TSH 1.750 Urine Color Urine Appearance Urine pH Ur Specific Manning Urine Protein Urine Glucose (UA) Urine Ketones Urine Blood Urine Nitrite Urine Bilirubin Urine Urobilinogen Ur Leukocyte Esterase Urine WBC (Auto) Urine RBC (Auto) U Hyaline Cast (Auto) U Epithel Cells (Auto) Urine Bacteria (Auto) Blood Type A Positive Antibody Screen NEGATIVE 10/25/18 10/26/18 10/26/18 23:19 03:07 03:07 WBC 12.20 H RBC 3.25 L Hgb 8.9 L 8.4 L Hct 29.2 L 27.6 L MCV 84.9 MCH 25.8 MCHC 30.4 L RDW Std Deviation 61.1 H RDW Coeff of Cherelle 19.4 H Plt Count 267 MPV 10.5 H Immature Gran % (Auto) 0.3 Neut % (Auto) 68.3 Lymph % (Auto) 21.7 [place] % (Auto) 7.5 Eos % (Auto) 2.0 Baso % (Auto) 0.2 Immature Gran # (Auto) 0.04 H Neut # (Auto) 8.32 H Lymph # (Auto) 2.65 [place] # (Auto) 0.92 H Eos # (Auto) 0.24 Baso # (Auto) 0.03 Absolute Nucleated RBC 0.02 H Nucleated RBC % (auto) 0.2 Polychromasia 1+ Hypochromasia Present PT INR APTT PTT Ratio Sodium 142 Potassium Chloride 107 Carbon Dioxide 29 Anion Gap 6.0 BUN 25 H Creatinine 1.22 H Est Cr Clr Drug Dosing 65.4 Est GFR ( Amer) 54.6 Est GFR (Non-Af Amer) 47.1 BUN/Creatinine Ratio 20.1 H Glucose 190 H POC Glucose Calcium 8.8 Total Bilirubin AST ALT Alkaline Phosphatase Troponin I NT-Pro-B Natriuret Pep Total Protein Albumin Globulin Albumin/Globulin Ratio TSH Urine Color Urine Appearance Urine pH Ur Specific Manning Urine Protein Urine Glucose (UA) Urine Ketones Urine Blood Urine Nitrite Urine Bilirubin Urine Urobilinogen Ur Leukocyte Esterase Urine WBC (Auto) Urine RBC (Auto) U Hyaline Cast (Auto) U Epithel Cells (Auto) Urine Bacteria (Auto) Blood Type Antibody Screen 10/26/18 10/26/18 10/26/18 06:02 07:16 07:16 WBC RBC Hgb 8.8 L 8.9 L Hct 29.0 L 29.2 L MCV MCH MCHC RDW Std Deviation RDW Coeff of Cherelle Plt Count MPV Immature Gran % (Auto) Neut % (Auto) Lymph % (Auto) [place] % (Auto) Eos % (Auto) Baso % (Auto) Immature Gran # (Auto) Neut # (Auto) Lymph # (Auto) [place] # (Auto) Eos # (Auto) Baso # (Auto) Absolute Nucleated RBC Nucleated RBC % (auto) Polychromasia Hypochromasia PT INR APTT PTT Ratio Sodium Potassium Chloride Carbon Dioxide Anion Gap BUN Creatinine Est Cr Clr Drug Dosing Est GFR ( Amer) Est GFR (Non-Af Amer) BUN/Creatinine Ratio Glucose POC Glucose 214 H Calcium Total Bilirubin AST ALT Alkaline Phosphatase Troponin I NT-Pro-B Natriuret Pep Total Protein Albumin Globulin Albumin/Globulin Ratio TSH Urine Color Urine Appearance Urine pH Ur Specific Manning Urine Protein Urine Glucose (UA) Urine Ketones Urine Blood Urine Nitrite Urine Bilirubin Urine Urobilinogen Ur Leukocyte Esterase Urine WBC (Auto) Urine RBC (Auto) U Hyaline Cast (Auto) U Epithel Cells (Auto) Urine Bacteria (Auto) Blood Type Antibody Screen 10/26/18 07:16 WBC RBC Hgb Hct MCV MCH MCHC RDW Std Deviation RDW Coeff of Cherelle Plt Count MPV Immature Gran % (Auto) Neut % (Auto) Lymph % (Auto) [place] % (Auto) Eos % (Auto) Baso % (Auto) Immature Gran # (Auto) Neut # (Auto) Lymph # (Auto) [place] # (Auto) Eos # (Auto) Baso # (Auto) Absolute Nucleated RBC Nucleated RBC % (auto) Polychromasia Hypochromasia PT INR APTT PTT Ratio Sodium Potassium 4.3 Chloride Carbon Dioxide Anion Gap BUN Creatinine Est Cr Clr Drug Dosing Est GFR ( Amer) Est GFR (Non-Af Amer) BUN/Creatinine Ratio Glucose POC Glucose Calcium Total Bilirubin AST ALT Alkaline Phosphatase Troponin I NT-Pro-B Natriuret Pep Total Protein Albumin Globulin Albumin/Globulin Ratio TSH Urine Color Urine Appearance Urine pH Ur Specific Manning Urine Protein Urine Glucose (UA) Urine Ketones Urine Blood Urine Nitrite Urine Bilirubin Urine Urobilinogen Ur Leukocyte Esterase Urine WBC (Auto) Urine RBC (Auto) U Hyaline Cast (Auto) U Epithel Cells (Auto) Urine Bacteria (Auto) Blood Type Antibody Screen
[2018-10-26] MEDS: LOSARTAN POTASSIUM 50 MG TAB PO SCH (11:20)
--- NOTE | 2018-10-26 11:20 | Pharmacy Report ---
Glycemic Control Consultation - Date of Service October 26, 2018 - Scope Scope: Glycemic Pharmacist consulted by Dr Leyva on 10/26/18 for glycemic control and to write orders per [facility] inpatient glycemic control protocol - Objective Weight: 150.6 kg Accuchecks BSG (last 24hrs): 10/25/18 10/25/18 10/26/18 18:11 22:41 03:07 Glucose 156 H 190 H POC Glucose 131 H 10/26/18 06:02 Glucose POC Glucose 214 H Laboratory Data (last 24hrs): 10/25/18 10/26/18 10/26/18 18:11 03:07 07:16 Potassium 3.9 4.3 Carbon Dioxide 29 29 Anion Gap 7.0 6.0 Creatinine 1.12 1.22 H Est Cr Clr Drug Dosing Not Reportable 65.4 - Recent Pertinent Medications Outpatient Anti-diabetic Regimen: * Humulin U-500 - 50 units twice daily and 120 units at bedtime * A1c = 8.0 % 08/31/18 The patient is currently receiving: * Basal insulin: Lantus 25 units x 1 * Correctional Insulin: Novolog Correction per scale ACHS Goal Range: Low 110 mg/dL - High 140 mg/dL Correction Factor: 20 mg/dL/unit * Prandial insulin: Per carb ratio of 1 unit per 10 grams CHO consumed * Oral Agents: Risk Factors for Insulin Resistance: * Diet: NPO - Assessment & Plan Assessment & Plan: ASSESSMENT: * Ms Molina is a 63 y/o F with T2DM (unable to accurate dressage judge HbA1C since she has had blood transfusions and anemia) who presents with anemia. She potentially has a GI bleed. * Previously patient did not require U-500 while hospitalized and instead required about 25 units of Lantus BID with extremely tight Novolog coverage. Will continue these numbers. Requires still around 100 units PLAN FOR INPATIENT GLYCEMIC CONTROL: * Basal insulin * Lantus 25 units SQ BID * Bolus insulin * NovoLog per scale ACHS or Q6hrs while NPO * Goal Range: Low 110 mg/dL - High 140 mg/dL * Correction Factor: 12 mg/dL/unit * Nutritional / Prandial insulin per carb ratio of 1 unit per 4 grams CHO consumed * Please note that the plan above was derived based on current level of insulin resistance and hospital stress. These recommendations are appropriate for inpatient admission only. Plan of care upon discharge will need to be reassessed to avoid potential outpatient hypo/hyperglycemia. Thank you.
[2018-10-26] MEDS: FUROSEMIDE 20 MG TAB PO SCH (11:21)
[2018-10-26] MEDS: FERROUS SULFATE 325 MG TAB PO SCH ×2 (11:21→20:53)
[2018-10-26] MEDS: PANTOprazole 40 MG in SYRINGE 0 ML IV SCH ×2 (11:22→20:51)
[2018-10-26 12:12] LABS: Ferritin 84.3 ng/ml (8-388)
[2018-10-26 13:43] LABS: Hematocrit (blood only) 28.4 % (37-47); Hemoglobin 8.5 g/dL (12.0-16.0)
--- NOTE | 2018-10-26 15:15 | Hospitalist Progress Note ---
Date of Service October 26, 2018 Assessment & Plan (1) GI bleeding: continues to have intermittent melena recurrent anemia has had EGD, colonoscopy and capsule endoscopy, no findings Dr. Smith recommends balloon push enteroscopy would be avialable at [place] will ask for transfer tomorrow allow to eat today (2) Symptomatic anemia: - Hgb 8.8 (10.6 on 09/19) - Hb is 8.4 on most recent check today ferritin is 80, was 120 on prior checks will give dose of Venofer today repeat H/H tomorrow (3) Shortness of breath: - Patient has had persistent shortness of breath for over 1 year although appears to have worsening shortness of breath with exertion over the last week. Possibly 2/2 pulmonary edema on CXR although recent Echo shows normal heart function. Will ordered CT Chest to assess for further respiratory pathology - Patient was last seen by Dr. Ruiz on 10/07/18 and was doing well at that time, recovering from a PNA she experience in the middle of August - Supplemental O2 to maintain SpO2 > 90% - Continue inhalers: Advair, levalbuterol PRN, montelukast, and Xopenex - CXR: Cardiomegaly with moderate pulmonary edema. - Continue home Lasix 20mg PO Daily - LE Dopplers: No visible DVTs - Last Echo 09/19/17 shows EF 65-70% with normal LV systolic function - CT Chest w/o Contrast ordered shows mild pulmonary edema, no significant findings (4) Hypertension: - Continue home Losartan - Started Metoprolol 25mg PO BID (started today at Cardiology visit) (5) Hypothyroidism: - Continue home Synthroid (6) Coronary artery disease: - BIB placed in Circumflex Artery 01/07 - Holding Aspirin - Started on Metoprolol Tartrate 25mg PO Daily in Cardiology clinic today - Currently holding Aspirin due to ongoing bleed --> Reassess tomorrow morning after discussing with GI and monitoring H/H because this is the only antiplatelet therapy she is on at this time (Brilinta d/c's with GI bleed in 09/09) (7) DVT prophylaxis: - SCDs (concern of GI bleed) Subjective patient feeling short of breath on exertion, no issues while at rest moving her bowels, still dark Hb is overall stable, up and down through past 24 hours most recent is 8.4 ferritin checked, is 84, will give some Venofer discussed with Dr. Smtih, he feels that what she needs is balloon push enteroscopy will try to arrange for patient to go to [facility] discussed if this could be done outpatient, typically takes a long time to schedule if [facility] will not accept then could try push enteroscopy but he is concerned the yield will be low patient reports that she has been evaluated by both cardiology and pulmonology as outpatient her dyspnea is being driven by recurrent anemia per those specialists Review of Systems All systems reviewed & are unremarkable except as noted in HPI & below Constitutional: + fatigue and + weakness Respiratory: + dyspnea on exertion Gastrointestinal: + melena; no abdominal pain, no nausea, no vomiting, no constipation and no diarrhea/loose stools Physical Exam Vital Signs (Past 24 Hours): Last Vital Signs Temp 36.8 C 10/26/18 11:41 Pulse 77 10/26/18 11:41 Resp 19 10/26/18 11:41 BP 145/79 H 10/26/18 11:41 Pulse Ox 98 10/26/18 11:41 Constitutional: WD/WN, vitals as above + obese Eyes: PERRL, conjunctivae normal, anicteric sclerae ENMT: external ear and nose normal, oropharynx normal Neck: trachea midline, no thyromegaly Respiratory: normal respiratory effort, lungs clear to auscultation Cardiovascular: RRR, no murmur, no edema Gastrointestinal (Abdomen): normal bowel sounds, soft, nontender, no hepatosplenomegaly Musculoskeletal: no cyanosis or clubbing, extremities motor strength 5/5 Skin: no rashes, warm and dry Neurologic: patellar DTR's 2+ bilat, sensation intact and PERRL, EOMI, accommodation nl, no face palsy, no dysarthria Psychiatric: A+Ox3, euthymic affect Lymphatic: no cervical or axillary lymphadenopathy Results & Data Laboratory Results Laboratory Results - last 24 hr 10/25/18 10/25/18 10/25/18 17:05 18:11 18:11 WBC 11.04 H RBC 3.39 L Hgb 8.8 L Hct 28.9 L MCV 85.3 MCH 26.0 MCHC 30.4 L RDW Std Deviation 59.9 H RDW Coeff of Cherelle 19.2 H Plt Count 258 MPV 10.1 Immature Gran % (Auto) 0.3 Neut % (Auto) 65.5 Lymph % (Auto) 24.9 Antelope % (Auto) 6.8 Eos % (Auto) 2.2 Baso % (Auto) 0.3 Immature Gran # (Auto) 0.03 H Neut # (Auto) 7.24 H Lymph # (Auto) 2.75 Antelope # (Auto) 0.75 H Eos # (Auto) 0.24 Baso # (Auto) 0.03 Absolute Nucleated RBC Nucleated RBC % (auto) Polychromasia Hypochromasia Present PT 11.3 INR 1.1 APTT 25.7 PTT Ratio 0.9 Sodium Potassium Chloride Carbon Dioxide Anion Gap BUN Creatinine Est Cr Clr Drug Dosing Est GFR ( Amer) Est GFR (Non-Af Amer) BUN/Creatinine Ratio Glucose POC Glucose Calcium Iron TIBC Ferritin Total Bilirubin AST ALT Alkaline Phosphatase Troponin I NT-Pro-B Natriuret Pep Total Protein Albumin Globulin Albumin/Globulin Ratio TSH Urine Color Yellow Urine Appearance Clear Urine pH 5.0 Ur Specific Alpine 1.013 Urine Protein 2+ H Urine Glucose (UA) Negative Urine Ketones Negative Urine Blood Trace H Urine Nitrite Negative Urine Bilirubin Negative Urine Urobilinogen Negative Ur Leukocyte Esterase Negative Urine WBC (Auto) 1-5 Urine RBC (Auto) 0-4 U Hyaline Cast (Auto) 1-5 U Epithel Cells (Auto) 5-10 H Urine Bacteria (Auto) Negative Blood Type Antibody Screen 10/25/18 10/25/18 10/25/18 18:11 18:11 22:41 WBC RBC Hgb Hct MCV MCH MCHC RDW Std Deviation RDW Coeff of Cherelle Plt Count MPV Immature Gran % (Auto) Neut % (Auto) Lymph % (Auto) Antelope % (Auto) Eos % (Auto) Baso % (Auto) Immature Gran # (Auto) Neut # (Auto) Lymph # (Auto) Antelope # (Auto) Eos # (Auto) Baso # (Auto) Absolute Nucleated RBC Nucleated RBC % (auto) Polychromasia Hypochromasia PT INR APTT PTT Ratio Sodium 141 Potassium 3.9 Chloride 106 Carbon Dioxide 29 Anion Gap 7.0 BUN 25 H Creatinine 1.12 Est Cr Clr Drug Dosing Not Reportable Est GFR ( Amer) 60.5 Est GFR (Non-Af Amer) 52.2 BUN/Creatinine Ratio 22.0 H Glucose 156 H POC Glucose 131 H Calcium 9.7 Iron TIBC Ferritin Total Bilirubin 0.3 AST 11 L ALT 19 Alkaline Phosphatase 91 Troponin I < 0.015 NT-Pro-B Natriuret Pep 127 Total Protein 7.6 Albumin 2.9 L Globulin 4.7 H Albumin/Globulin Ratio 0.6 L TSH 1.750 Urine Color Urine Appearance Urine pH Ur Specific Alpine Urine Protein Urine Glucose (UA) Urine Ketones Urine Blood Urine Nitrite Urine Bilirubin Urine Urobilinogen Ur Leukocyte Esterase Urine WBC (Auto) Urine RBC (Auto) U Hyaline Cast (Auto) U Epithel Cells (Auto) Urine Bacteria (Auto) Blood Type A Positive Antibody Screen NEGATIVE 10/25/18 10/26/18 10/26/18 23:19 03:07 03:07 WBC 12.20 H RBC 3.25 L Hgb 8.9 L 8.4 L Hct 29.2 L 27.6 L MCV 84.9 MCH 25.8 MCHC 30.4 L RDW Std Deviation 61.1 H RDW Coeff of Cherelle 19.4 H Plt Count 267 MPV 10.5 H Immature Gran % (Auto) 0.3 Neut % (Auto) 68.3 Lymph % (Auto) 21.7 Antelope % (Auto) 7.5 Eos % (Auto) 2.0 Baso % (Auto) 0.2 Immature Gran # (Auto) 0.04 H Neut # (Auto) 8.32 H Lymph # (Auto) 2.65 Antelope # (Auto) 0.92 H Eos # (Auto) 0.24 Baso # (Auto) 0.03 Absolute Nucleated RBC 0.02 H Nucleated RBC % (auto) 0.2 Polychromasia 1+ Hypochromasia Present PT INR APTT PTT Ratio Sodium 142 Potassium Chloride 107 Carbon Dioxide 29 Anion Gap 6.0 BUN 25 H Creatinine 1.22 H Est Cr Clr Drug Dosing 65.4 Est GFR ( Amer) 54.6 Est GFR (Non-Af Amer) 47.1 BUN/Creatinine Ratio 20.1 H Glucose 190 H POC Glucose Calcium 8.8 Iron TIBC Ferritin Total Bilirubin AST ALT Alkaline Phosphatase Troponin I NT-Pro-B Natriuret Pep Total Protein Albumin Globulin Albumin/Globulin Ratio TSH Urine Color Urine Appearance Urine pH Ur Specific Alpine Urine Protein Urine Glucose (UA) Urine Ketones Urine Blood Urine Nitrite Urine Bilirubin Urine Urobilinogen Ur Leukocyte Esterase Urine WBC (Auto) Urine RBC (Auto) U Hyaline Cast (Auto) U Epithel Cells (Auto) Urine Bacteria (Auto) Blood Type Antibody Screen 10/26/18 10/26/18 10/26/18 06:02 07:16 07:16 WBC RBC Hgb 8.8 L 8.9 L Hct 29.0 L 29.2 L MCV MCH MCHC RDW Std Deviation RDW Coeff of Cherelle Plt Count MPV Immature Gran % (Auto) Neut % (Auto) Lymph % (Auto) Antelope % (Auto) Eos % (Auto) Baso % (Auto) Immature Gran # (Auto) Neut # (Auto) Lymph # (Auto) Antelope # (Auto) Eos # (Auto) Baso # (Auto) Absolute Nucleated RBC Nucleated RBC % (auto) Polychromasia Hypochromasia PT INR APTT PTT Ratio Sodium Potassium Chloride Carbon Dioxide Anion Gap BUN Creatinine Est Cr Clr Drug Dosing Est GFR ( Amer) Est GFR (Non-Af Amer) BUN/Creatinine Ratio Glucose POC Glucose 214 H Calcium Iron TIBC Ferritin Total Bilirubin AST ALT Alkaline Phosphatase Troponin I NT-Pro-B Natriuret Pep Total Protein Albumin Globulin Albumin/Globulin Ratio TSH Urine Color Urine Appearance Urine pH Ur Specific Alpine Urine Protein Urine Glucose (UA) Urine Ketones Urine Blood Urine Nitrite Urine Bilirubin Urine Urobilinogen Ur Leukocyte Esterase Urine WBC (Auto) Urine RBC (Auto) U Hyaline Cast (Auto) U Epithel Cells (Auto) Urine Bacteria (Auto) Blood Type Antibody Screen 10/26/18 10/26/18 10/26/18 07:16 11:15 11:15 WBC RBC Hgb Cancelled Hct Cancelled MCV MCH MCHC RDW Std Deviation RDW Coeff of Cehrelle Plt Count MPV Immature Gran % (Auto) Neut % (Auto) Lymph % (Auto) Antelope % (Auto) Eos % (Auto) Baso % (Auto) Immature Gran # (Auto) Neut # (Auto) Lymph # (Auto) Antelope # (Auto) Eos # (Auto) Baso # (Auto) Absolute Nucleated RBC Nucleated RBC % (auto) Polychromasia Hypochromasia PT INR APTT PTT Ratio Sodium Potassium 4.3 Chloride Carbon Dioxide Anion Gap BUN Creatinine Est Cr Clr Drug Dosing Est GFR ( Amer) Est GFR (Non-Af Amer) BUN/Creatinine Ratio Glucose POC Glucose Calcium Iron 31 L TIBC 286 Ferritin 84.3 Total Bilirubin AST ALT Alkaline Phosphatase Troponin I NT-Pro-B Natriuret Pep Total Protein Albumin Globulin Albumin/Globulin Ratio TSH Urine Color Urine Appearance Urine pH Ur Specific Alpine Urine Protein Urine Glucose (UA) Urine Ketones Urine Blood Urine Nitrite Urine Bilirubin Urine Urobilinogen Ur Leukocyte Esterase Urine WBC (Auto) Urine RBC (Auto) U Hyaline Cast (Auto) U Epithel Cells (Auto) Urine Bacteria (Auto) Blood Type Antibody Screen 10/26/18 10/26/18 11:37 13:21 WBC RBC Hgb 8.5 L Hct 28.4 L MCV MCH MCHC RDW Std Deviation RDW Coeff of Cherelle Plt Count MPV Immature Gran % (Auto) Neut % (Auto) Lymph % (Auto) Antelope % (Auto) Eos % (Auto) Baso % (Auto) Immature Gran # (Auto) Neut # (Auto) Lymph # (Auto) Antelope # (Auto) Eos # (Auto) Baso # (Auto) Absolute Nucleated RBC Nucleated RBC % (auto) Polychromasia Hypochromasia PT INR APTT PTT Ratio Sodium Potassium Chloride Carbon Dioxide Anion Gap BUN Creatinine Est Cr Clr Drug Dosing Est GFR ( Amer) Est GFR (Non-Af Amer) BUN/Creatinine Ratio Glucose POC Glucose 278 H Calcium Iron TIBC Ferritin Total Bilirubin AST ALT Alkaline Phosphatase Troponin I NT-Pro-B Natriuret Pep Total Protein Albumin Globulin Albumin/Globulin Ratio TSH Urine Color Urine Appearance Urine pH Ur Specific Alpine Urine Protein Urine Glucose (UA) Urine Ketones Urine Blood Urine Nitrite Urine Bilirubin Urine Urobilinogen Ur Leukocyte Esterase Urine WBC (Auto) Urine RBC (Auto) U Hyaline Cast (Auto) U Epithel Cells (Auto) Urine Bacteria (Auto) Blood Type Antibody Screen Medications Administered Current Inpatient Medications Acetaminophen (Tylenol) 650 mg PO Q4H PRN PRN Reason: Pain or Fever Stop: 11/24/18 23:06 Dextrose (Dextrose 50%) 25 - 50 ml IV UD PRN; Protocol PRN Reason: Hypoglycemia Protocol Stop: 11/24/18 23:06 Epinephrine HCl (Epipen) 0.3 mg IM UD PRN PRN Reason: Allergic Reaction Stop: 11/24/18 23:06 Ferrous Sulfate (Feosol) 325 mg PO BID [facility] Stop: 11/25/18 08:59 Last Admin: 10/26/18 11:21 Dose: 325 mg Documented by: Fluticasone Propionate (Flonase) 2 sprays NA DAILY PRN PRN Reason: Allergic Symptoms Stop: 11/24/18 23:06 Furosemide (Lasix) 40 mg PO QAM [facility] Stop: 11/25/18 08:59 Last Admin: 10/26/18 11:21 Dose: 40 mg Documented by: Glucagon (Glucagen) 1 mg SQ UD PRN; Protocol PRN Reason: Hypoglycemia Protocol Stop: 11/24/18 23:06 Glucose (Dex4 Glucose) 4 - 8 tabs PO UD PRN; Protocol PRN Reason: Hypoglycemia Protocol Stop: 11/24/18 23:06 Glucose (Glucose 40%) 15 - 30 gm PO UD PRN; Protocol PRN Reason: Hypoglycemia Protocol Stop: 11/24/18 23:06 Sodium Chloride (Nss 1000ml) 1,000 mls @ 125 mls/hr IV .Q8H [facility] Stop: 11/24/18 23:06 Last Admin: 10/26/18 08:39 Dose: 125 mls/hr Documented by: Pantoprazole Sodium 40 mg/ (Syringe) 10 mls @ 5 mls/min IV BID [facility] Stop: 11/25/18 08:59 Last Admin: 10/26/18 11:22 Dose: 5 mls/min Documented by: Insulin Human Regular 60 units (/ Syringe) 0.12 mls @ 0 mls/sec SC QDD [facility] Stop: 10/26/18 16:31 Iron Sucrose 100 mg/ Sodium (Chloride) 105 mls @ 420 mls/hr IV TODAY [facility] Stop: 11/25/18 15:14 Insulin Aspart (Novolog Flexpen) 0 units SC ACHS [facility] Stop: 11/25/18 16:29 Levalbuterol HCl (Xopenex 0.31mg/3 Ml) 0.31 mg INH TID PRN PRN Reason: Wheezing Stop: 11/24/18 23:06 Levalbuterol HCl (Xopenex Hfa) 2 puffs INH Q4H PRN PRN Reason: Shortness Of Breath Or Wheezing Stop: 11/24/18 23:06 Levothyroxine Sodium (Synthroid) 88 mcg PO DAILYBB [facility] Stop: 11/25/18 06:29 Last Admin: 10/26/18 06:17 Dose: 88 mcg Documented by: Loperamide HCl (Imodium) 2 mg PO UD PRN; Protocol PRN Reason: Diarrhea Stop: 11/24/18 23:06 Losartan Potassium (Cozaar) 50 mg PO QAM [facility] Stop: 11/25/18 08:59 Last Admin: 10/26/18 11:20 Dose: 50 mg Documented by: Metoprolol Tartrate (Lopressor) 25 mg PO BID [facility] Stop: 11/24/18 23:06 Last Admin: 10/26/18 11:22 Dose: 25 mg Documented by: Miscellaneous (Carbohydrates For Hypoglycemia) 15 - 30 gm PO UD PRN PRN Reason: Hypoglycemia Treatment Stop: 11/24/18 23:06 Miscellaneous Information (Consult Glycemic Management Pharmacy) 1 ea N/A UD PRN PRN Reason: Consult Stop: 11/25/18 07:13 Montelukast Sodium (Singulair) 10 mg PO PM [facility] Stop: 11/25/18 20:59 Polyethylene Glycol (Miralax Powder Packet) 17 gm PO DAILY PRN PRN Reason: Constipation Stop: 11/24/18 23:06 Rosuvastatin Calcium (Crestor) 40 mg PO PM [facility] Stop: 11/25/18 20:59 Fluticasone/Salmeterol (Advair Diskus 250/50) 1 puffs INH BID PRN PRN Reason: Unknown Stop: 11/24/18 23:06
[2018-10-26] MEDS ORDERED: IRON SUCROSE 100 MG in 0.9 % SODIUM CHLORIDE 100 ML IV SCH (16:00)
[2018-10-26] MEDS: FLUTICASONE/SALMETEROL 250/50 (ADVAIR) 14 PUFF/1 INHALER INH PRN (20:56)
[2018-10-26] MEDS ORDERED: MONTELUKAST SODIUM 10 MG TABLET PO SCH (21:00)
[2018-10-26] MEDS ORDERED: ROSUVASTATIN CALCIUM 20 MG TAB PO SCH (21:00)
[2018-10-27] MEDS: SODIUM CHLORIDE 0.9% 1000ML 1,000 ML IV SCH ×2 (00:38→09:14)
[2018-10-27] MEDS: CARBOHYDRATES FOR HYPOGLYCEMIA PO PRN ×2 (03:15→03:30)
[2018-10-27] MEDS: LEVOTHYROXINE SODIUM 88 MCG TABLET PO SCH (05:43)
[2018-10-27 06:55] LABS: Hematocrit (blood only) 28.8 % (37-47); Hemoglobin 8.8 g/dL (12.0-16.0)
[2018-10-27] MEDS: LOSARTAN POTASSIUM 50 MG TAB PO SCH (08:09)
[2018-10-27] MEDS: FUROSEMIDE 20 MG TAB PO SCH (08:09)
[2018-10-27] MEDS: INSULIN ASPART 100 UNITS/ML 3 ML PEN SC SCH ×2 (08:09→11:53)
[2018-10-27] MEDS: METOPROLOL TARTRATE 25 MG TAB PO SCH (08:10)
[2018-10-27] MEDS: FERROUS SULFATE 325 MG TAB PO SCH (08:10)
[2018-10-27] MEDS: PANTOprazole 40 MG in SYRINGE 0 ML IV SCH (08:11)
[2018-10-27] MEDS: FLUTICASONE/SALMETEROL 250/50 (ADVAIR) 14 PUFF/1 INHALER INH PRN (08:15)
[2018-10-27] MEDS ORDERED: INSULIN GLARGINE SOLOSTAR 100 UNITS/ML 3 ML PEN SC SCH (09:00)
--- NOTE | 2018-10-27 10:27 | Gastroenterology Progress Note ---
Date of Service October 27, 2018 Assessment & Plan (1) Melena: Patient with a complaint of melena negative upper endoscopy and colonoscopy in recent past. She is also had a negative wireless capsule endoscopy. As a mentioned yesterday perhaps the next best option for her would be a balloon assisted enteroscopy at a tertiary center. If unable to transfer the patient we could certainly try a conventional enteroscopy at [facility] however this is unlikely to be fruitful. Subjective Patient reports no changes overnight. There is been no significant drop in her hematocrit since admission. She believes that she does have occasional dark stool but not sticky. Constitutional: no sweats Eyes: no diplopia Respiratory: no change in sputum and no hemoptysis Cardiovascular: no chest pain with activity and no dyspnea at rest Physical Exam Vital Signs (Past 24 Hours): Last Vital Signs Temp 36.6 C 10/27/18 07:48 Pulse 76 10/27/18 07:48 Resp 19 10/27/18 07:48 BP 136/65 10/27/18 07:48 Pulse Ox 96 10/27/18 07:48 Constitutional: + morbidly obese Respiratory: normal respiratory effort, lungs clear to auscultation Cardiovascular: Rate/Rhythm: regular rate Gastrointestinal (Abdomen): normal bowel sounds, soft, nontender, no hepatosplenomegaly Results & Data Laboratory Results Laboratory Results - last 24 hr 10/26/18 10/26/18 10/26/18 11:15 11:15 11:37 Hgb Cancelled Hct Cancelled POC Glucose 278 H Iron 31 L TIBC 286 Ferritin 84.3 Stool Occult Bld Scrn 10/26/18 10/26/18 10/26/18 13:21 16:23 20:31 Hgb 8.5 L Hct 28.4 L POC Glucose 212 H 118 H Iron TIBC Ferritin Stool Occult Bld Scrn 10/26/18 10/26/18 10/27/18 22:18 Unknown 03:13 Hgb Hct POC Glucose 77 64 L* Iron TIBC Ferritin Stool Occult Bld Scrn Negative 10/27/18 10/27/18 10/27/18 03:33 03:53 06:06 Hgb 8.8 L Hct 28.8 L POC Glucose 66 L* 82 Iron TIBC Ferritin Stool Occult Bld Scrn 10/27/18 07:33 Hgb Hct POC Glucose 119 H Iron TIBC Ferritin Stool Occult Bld Scrn
[2018-10-27] MEDS ORDERED: IRON SUCROSE 100 MG in 0.9 % SODIUM CHLORIDE 100 ML IV SCH (11:00)
--- NOTE | 2018-10-27 12:15 | Discharge Summary ---
Date of Service October 27, 2018 Admission HPI Per Admitting Provider The patient is a 63-year-old orbitally obese female who presented to the emergency room yesterday with progressive shortness of breath, desaturation and worsening anemia. The patient has a history of melena and recently underwent both an upper endoscopy and colonoscopy without any specific etiologies. This was followed by wireless capsule endoscopy which was normal as well. The patient notes that yesterday she developed several episodes of dark stool which have not occurred. And fevers chills and sweats but does admit to shortness of breath and weakness. The patient had previously been on dual antiplatelet t herapy which was transitioned to monotherapy with aspirin due to underlying cardiac stents. She is also maintained on oral iron 1 time daily. Today she denies having any hematemesis or dark sticky stool. Admission Exam Per Admitting Provider Constitutional: + obese; no acute distress Eyes: PERRL, conjunctivae normal, anicteric sclerae Neck: trachea midline, no thyromegaly Respiratory: normal respiratory effort, lungs clear to auscultation no retractions, no dullness to percussion and no cough Cardiovascular: Rate/Rhythm: regular rate Heart Sounds: + murmur Gastrointestinal (Abdomen): normal bowel sounds, soft, nontender, no hepatosplenomegaly Musculoskeletal: Bilateral lower extremity edema noted Skin: no rashes, warm and dry no jaundice Principal Diagnosis Recurrent melena Discharge Exam Constitutional WD/WN, vitals as above + obese Eyes PERRL, conjunctivae normal, anicteric sclerae ENMT external ear and nose normal, oropharynx normal Neck trachea midline, no thyromegaly Respiratory normal respiratory effort, lungs clear to auscultation Cardiovascular RRR, no murmur, no edema Gastrointestinal (Abdomen) normal bowel sounds, soft, nontender, no hepatosplenomegaly Musculoskeletal no cyanosis or clubbing, extremities motor strength 5/5 Skin no rashes, warm and dry Neurologic patellar DTR's 2+ bilat, sensation intact and PERRL, EOMI, accommodation nl, no face palsy, no dysarthria Psychiatric A+Ox3, euthymic affect Lymphatic no cervical or axillary lymphadenopathy Discharge Data Allergies Allergy/AdvReac Type Severity Reaction Status Date / Time shellfish derived Allergy Severe "SEAFOOD" Verified 10/25/18 17:23 -- HIVES and ANAPHLYAXIS sulfite Allergy Severe HIVES AND Verified 10/25/18 17:23 THROAT CLOSES Iodinated Contrast- Oral and Allergy Unknown UNKNOWN Verified 10/25/18 17:23 IV Dye iodine Allergy Unknown Unknown Verified 10/25/18 17:23 Consultations 10/25/18 19:31 ED Decision to Admit Stat 10/25/18 23:07 Consult Gastroenterology Routine 10/27/18 12:12 Burn CD for patient Stat Ordered Studies Laboratory Results - last 24 hr 10/26/18 10/26/18 10/26/18 13:21 16:23 20:31 Hgb 8.5 L Hct 28.4 L POC Glucose 212 H 118 H Stool Occult Bld Scrn 10/26/18 10/26/18 10/27/18 22:18 Unknown 03:13 Hgb Hct POC Glucose 77 64 L* Stool Occult Bld Scrn Negative 10/27/18 10/27/18 10/27/18 03:33 03:53 06:06 Hgb 8.8 L Hct 28.8 L POC Glucose 66 L* 82 Stool Occult Bld Scrn 10/27/18 10/27/18 07:33 11:12 Hgb Hct POC Glucose 119 H 222 H Stool Occult Bld Scrn 10/25/18 19:45 US venous doppler LE BI Stat 10/25/18 23:07 CT chest wo con Urgent Hospital Course (1) GI bleeding: continues to have intermittent melena recurrent anemia has had EGD, colonoscopy at the end of July 2018 capsule endoscopy in August 2018, no findings Hb was stable, no melena for a few weeks Dr. Smith recommends balloon push enteroscopy would be available at [facility] will transfer today NPO after midnight (2) Symptomatic anemia: - Hgb 8.8 (10.6 on 09/19) - Hb is stable at 8.8, has ranged between 8.4 and 8.8 the past 24 hours ferritin is 80, was 120 on prior checks given two doses of Venofer while here (3) Shortness of breath: - Patient has had persistent shortness of breath for over 1 year although appears to have worsening shortness of breath with exertion over the last week. Possibly 2/2 pulmonary edema on CXR although recent Echo shows normal heart fun ction. - Patient was last seen by Dr. Ruiz (pulm) on 10/07/18 and was doing well at that time, recovering from a PNA she experience in the middle of August - Supplemental O2 to maintain SpO2 > 90% - Continue inhalers: Advair, levalbuterol PRN, montelukast, and Xopenex - CXR: Cardiomegaly with moderate pulmonary edema. - Continue home Lasix 20mg PO Daily - LE Dopplers: No visible DVTs - Last Echo 09/19/17 shows EF 65-70% with normal LV systolic function - CT Chest w/o Contrast ordered 10/25 shows mild pulmonary edema, no significant findings (4) Hypertension: - Continue home Losartan - Started Metoprolol 25mg PO BID (started today at Cardiology visit) (5) Hypothyroidism: - Continue home Synthroid (6) Coronary artery disease: - BIB placed in Circumflex Artery 01/07 - Holding Aspirin - Started on Metoprolol Tartrate 25mg PO Daily in Cardiology clinic today - Currently holding Aspirin due to ongoing bleed, resume once okay with GI (7) Diabetes: insulin dependent on Lantus 25 units BID (typically on 50 BID, cut in half in anticipation of NPO status) Novolog sliding scale diabetic diet (8) DVT prophylaxis: - SCDs (concern of GI bleed) Total Time Total Time Spent Total Time Spent (In Minutes): 35 minutes Total Time Includes: Examination of the Patient, Discharge Planning, Medication Reconciliation and 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 With Other Providers (Dr. Smith with GI, Dr. Bustillo at [facility]) Discharge Plan Discharge Items Patient Disposition: Transfer Acute Care Hospital Reason For Visit: SOB FATIGUE Discharge Diagnosis: Recurrent melena, blood loss anemia Iron deficiency Condition: Fair Discharge Goals: Diagnostic testing and Improve function Activity: Resume your previous activity Non-emergency contact: Primary Care Provider and Behavioral Health Care Coordinator Call non-emergency contact if: you have any medication questions and your symptoms worsen Follow-up/Referrals: Aiyana Asencio MD [Primary Care Provider] - Diet: Carb Consistent or DM2 and Heart Healthy Diet Comment: NPO after midnight Addtl Provider Instructions: Medications: defer to [facility], see list Patient should be NPO after midnight if able to schedule the balloon push enteroscopy Prescriptions: Continued fluticasone propionate [24 Hour Allergy Relief] 50 mcg/actuation [place],Suspension 2 spray INTRANASAL DAILY PRN (Reason: Allergy Symptoms) RF: 0 aspirin [Aspir-81] 81 mg Tablet,Delayed Release (Dr/Ec) 81 mg PO QAM RF: 0 montelukast 10 mg Tablet 10 mg PO PM RF: 0 losartan 50 mg tablet 50 mg PO QAM RF: 0 rosuvastatin [Crestor] 40 mg Tablet 40 mg PO PM RF: 0 levalbuterol tartrate [Xopenex HFA] 45 mcg/actuation Hfa Aerosol Inhaler 2 inh INHALATION Q4H PRN (Reason: Shortness Of Breath Or Wheezing) RF: 0 furosemide 20 mg tablet 20 mg PO QAM RF: 0 insulin regular hum U-500 conc 500 unit/mL (3 mL) insulin pen 120 units subcut QPM RF: 0 insulin regular hum U-500 conc 500 unit/mL (3 mL) insulin pen 50 units subcut BID RF: 0 fluticasone propion-salmeterol 250-50 mcg/dose blister with device 1 puff Inhalation BID PRN (Reason: Unknown) RF: 0 epinephrine [EpiPen] 0.3 mg/0.3 mL Auto-Injector 0.3 mg IM DIRECTED PRN (Reason: Allergic Reaction) RF: 0 levalbuterol HCl 0.31 mg/3 mL Solution For Nebulization 0.31 mg INHALATION TID PRN (Reason: Wheezing) RF: 0 ferrous sulfate 325 mg (65 mg iron) tablet,delayed release (DR/EC) 325 mg PO BID Qty: 60 RF: 0 levothyroxine 88 mcg Tablet 88 mcg PO DAILY RF: 0 loperamide [Imodium A-D] 2 mg Capsule 2 mg PO UD PRN (Reason: Diarrhea) RF: 0 Stand-Alone Forms: [facility] Discharge Orders: Discharge Order (Routine); Ordered 10/27/18 Ordered By: John Esparza Admission Data Admit Date/Time: 10/25/18 21:28 Attending Provider: John Esparza Admit Provider: Jose Leyva Primary Care Provider: Aiyana Asencio Other Providers: Jovon Nixon ; Dereje Smith Service: Telemetry
== END 2018-10-27 13:50 | disposition short-term general hospital (02) | DRG 378 ==
LOC: ED 15:37 → 2S 21:28 → SUATTDRO 21:28 → 2S 22:05

== ENCOUNTER 2019-02-26 19:02 | Observation (INO) ==
[2019-02-26] MEDS ORDERED: VANCOMYCIN CONSULT ACTIVE PRN ×2 (19:36→23:55)
[2019-02-26] MEDS ORDERED: VANCOMYCIN HCL 2,750 MG in SODIUM CHLORIDE 0.9% 500 ML IV ONE (19:36)
[2019-02-26] MEDS ORDERED: cefTRIAXone SODIUM 2,000 MG/70 ML BAG IV STA (19:36)
--- NOTE | 2019-02-26 20:02 | XRay Report ---
XR chest 1V portable HISTORY: Shortness of breath. Fluid retention. Sepsis COMPARISON: Chest CTA 519. FINDINGS: No pneumothorax. No pleural effusions. The heart remains enlarged. Diffuse interstitial thi ckening persists. No new focal lung consolidations. IMPRESSION: No change in the cardiomegaly and diffuse interstitial thickening. This can be chronic or due to mild congestive change. Electronically signed by: Papi Jorge M.D. 02/26/2019 8:01 PM
--- NOTE | 2019-02-26 20:38 | Emergency Department Note ---
Entered by Crystal Ortiz acting as a scribe for Hector Lobato MD History of Present Illness General Chief complaint: Infection Stated complaint: BLE Cellulitis Time Seen by Provider: 02/26/19 19:21 Source: patient History of Present Illness Onset (ago): day(s) (few) Location: lower extremity (right and left leg ) Pain Consistency: + other (worsening) Maximum Pain Intensity: 10 Quality: + other (skin infection) Associated symptoms: + fever/chills (+chill; -fever) and + other (+"can not move her legs freely"; -diarrhea; -urinary symptoms ); no nausea/vomiting The patient is a 63 year old female who presents to the Emergency Room with complaints of a worsening skin infection to her legs over the past few days. The patient was in the ED two days ago for a right leg skin infection that resulted in the patient being prescribed doxycycline. The patient states the infection in the right leg has gotten slightly worse since with redness reaching her ankle, but now the patient reports the redness from the infection has spread to her left leg as well. The patient notes that, in the previous ED visit, her right leg was checked for a clot that came back negative. The patient also notes havin g chills today, but the patient denies nausea, vomiting, diarrhea, or urinary symptoms. The patient reports she is diabetic and that her sugar levels have been high recently. The patient notes she typically injects insulin to her legs, but she notes she has been injecting insulin to her abdomen after the initial skin infection to her right leg started. The patient notes she can not move her legs freely and can not pull herself into a vehicle. She notes she had to take an ambulance from her PCP to arrive to the ED because she can not pull herself into a car at the moment. Home Medications Home Medications Medication Instructions Recorded Confirmed Type fluticasone propionate [24 Hour 2 spray INTRANASAL DAILY PRN 03/25/18 02/26/19 History Allergy Relief] montelukast 10 mg PO QPM 03/25/18 02/26/19 History levalbuterol tartrate [Xopenex HFA] 2 inh INHALATION Q4H PRN 06/25/18 02/26/19 History losartan 50 mg PO QAM 06/25/18 02/26/19 History epinephrine [EpiPen] 0.3 mg IM DIRECTED PRN 08/16/18 02/26/19 History fluticasone propion-salmeterol 1 puff INHALATION BID PRN 08/16/18 02/26/19 History insulin regular hum U-500 conc 50 units SUBCUT BID 08/16/18 02/26/19 History insulin regular hum U-500 conc 120 units SUBCUT QPM 08/16/18 02/26/19 History ferrous sulfate 325 mg PO BID #60 tab 08/22/18 02/26/19 Rx loperamide [Imodium A-D] 2 mg PO DIRECTED PRN 09/19/18 02/26/19 History levothyroxine 88 mcg PO QAM 10/25/18 02/26/19 History amlodipine 2.5 mg PO QAM 02/24/19 02/26/19 History furosemide 20 mg PO QAM 02/26/19 02/26/19 History levalbuterol HCl 0.63 mg INHALATION DIRECTED PRN 02/26/19 02/26/19 History liothyronine 5 mcg PO HS 02/26/19 02/26/19 History omeprazole 20 mg PO QAM 02/26/19 02/26/19 History rosuvastatin 20 mg PO QPM 02/26/19 02/26/19 History Allergies Allergy/AdvReac Type Severity Reaction Status Date / Time shellfish derived Allergy Severe "SEAFOOD" Verified 02/24/19 11:47 -- HIVES and ANAPHLYAXIS sulfite Allergy Severe HIVES AND Verified 02/24/19 11:47 THROAT CLOSES Iodinated Contrast- Oral and Allergy Unknown Unknown Verified 02/26/19 20:43 IV Dye iodine Allergy Unknown Unknown Verified 02/24/19 11:47 Past Med/Surg History Medical History Diabetes (Chronic) GERD (gastroesophageal reflux disease) (Chronic) Diverticulitis (Resolved) Thyroid cancer (Resolved) Acute respiratory failure with hypoxia CHF (congestive heart failure) CAD S/P percutaneous coronary angioplasty (Chronic) Chronic respiratory failure (Chronic) 1 to 2 L oxygen Morbid obesity (Chronic) Surgical History H/O endoscopy H/O partial thyroidectomy History of colonoscopy History of percutaneous coronary intervention Family History Other No pertinent family history Social History Preferred Language: Belarusian 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 Ability: Effective High Man Required: No Beliefs That Will Affect Care: Yazdanism Yazdanism Beliefs: Sabianist Current Living Situation: Spouse Other Information That Helps Us Care for You: No Feels Safe at Home: Yes Safety Concerns: Feels Safe At This Time Smoking Status: Never smoker Do You Dip or Chew Tobacco: No ; Second Hand Exposure: No ; Hx Alcohol Use: No Hx Substance Use: No Review of Systems See HPI for pertinent positives & negatives. and A total of 10 systems reviewed and were otherwise negative Physical Exam Vital Signs Vital Signs - 24 hr 02/26/19 19:08 02/26/19 19:52 02/26/19 19:58 Temperature 36.6 C Temperature Source Oral Sepsis Recent Fever Within 48 Hours No Sepsis New/Unexplained Change in Mental Status No Sepsis Action Taken by Nursing No Action Required Pulse Rate 96 H Pulse Rate [Apical] 91 H Pulse Rate from SpO2 Sensor Pulse Rhythm Regular Pulse Strength Normal Respiratory Rate 18 22 Respiratory Effort / Characteristics Non-Labored Spontaneous Respiratory Depth Normal Respiratory Pattern Regular Blood Pressure 209/60 H Blood Pressure [Right Arm] 168/54 H Blood Pressure Mean 109 Blood Pressure Mean [Right Arm] 92 Pulse Oximetry 100 99 99 Oxygen Delivery Method Nasal Cannula Nasal Cannula Nasal Cannula Oxygen Flow Rate 2 2 2 02/26/19 21:57 02/26/19 22:00 Temperature Temperature Source Sepsis Recent Fever Within 48 Hours Sepsis New/Unexplained Change in Mental Status Sepsis Action Taken by Nursing Pulse Rate 91 H Pulse Rate [Apical] 94 H Pulse Rate from SpO2 Sensor 91 H Pulse Rhythm Pulse Strength Respiratory Rate 21 14 Respiratory Effort / Characteristics Respiratory Depth Normal Respiratory Pattern Blood Pressure 157/57 H Blood Pressure [Right Arm] 159/57 H Blood Pressure Mean 90 Blood Pressure Mean [Right Arm] 91 Pulse Oximetry 99 99 Oxygen Delivery Method Room Air Nasal Cannula Oxygen Flow Rate 2 2 GENERAL: Awake, alert, fatigued-appearing, in no distress. BMI of 67.3 HENT: Normocephalic, atraumatic. Oropharynx with dry mucous membranes and otherwise unremarkable. EYES: Normal conjunctiva. Sclera non-icteric. NECK: Supple. No nuchal rigidity. FROM. No JVD. RESPIRATORY: CTAB. CARDIAC: Regular rate, normal rhythm. Extremities warm and well perfused. Pulses equal. ABDOMEN: Soft, non-distended. No tenderness to palpation. No rebound or guarding. No masses. RECTAL: Deferred. MUSCULOSKELETAL: Chest examination reveals no tenderness. The back is symmetrical on inspection without obvious abnormality. There is no CVA tenderness to palpation. LOWER EXTREMITIES: Bilateral lower extremities 3+ pitting edema. with mild erythema, warmth and ttp. NEURO: Normal sensorium. No sensory or motor deficits noted. SKIN: No rash or jaundice noted. Procedures EJ/Peripheral Line Arm R: Time Out Performed: Yes Skin Cleansed in Sterile Fashion: Yes Size (gauge): 20 IV Secured and Dressing Applied: Yes Patient Tolerated Procedure: well Additional Comments: Performed under dynamic ultrasound guidance. Course 1926: Past medical records reviewed. The patient was evaluated in room A10. A complete history and physical exam was performed. 2100: I went to draw blood from the patient. 2138: I discussed the patient's case with Dr. [facility]. Dr. Nixon will further evaluate the patient. Consultations Consultation #1: I discussed the patient's case with Dr. Nixon[facility]. Dr. Nixon will further evaluate the patient. Time: 21:39 Administered Medications Acetaminophen (Tylenol) 650 mg PO Q4H PRN PRN Reason: Pain or Fever Stop: 03/28/19 23:54 Last Admin: 02/27/19 01:32 Dose: 650 mg Documented by: [id number] Liothyronine Sodium (Cytomel) 5 mcg PO HS LEONA Stop: 03/29/19 20:59 Last Admin: 02/27/19 01:34 Dose: 5 mcg Documented by: [id number] Montelukast Sodium (Singulair) 10 mg PO QPM LEONA Stop: 03/29/19 20:59 Last Admin: 02/27/19 01:33 Dose: 10 mg Documented by: [id number] Rosuvastatin Calcium (Crestor) 20 mg PO QPM LEONA Stop: 03/29/19 20:59 Last Admin: 02/27/19 01:33 Dose: 20 mg Documented by: [id number] Fluticasone/Salmeterol (Advair Diskus 250/50) 1 puffs INH BID PRN PRN Reason: Chronic Shortness Of Breath Stop: 03/28/19 23:54 Last Admin: 02/27/19 01:33 Dose: 1 puffs Documented by: [id number] Discontinued Medications Ceftriaxone Sodium (Rocephin) 2,000 mg in 70 mls @ 140 mls/hr IV NOW STA Stop: 02/26/19 20:05 Last Infusion: 02/26/19 22:43 Dose: 0 mls/hr Documented by: [id number] Admin: 02/26/19 22:08 Dose: 140 mls/hr Documented by: [id number] Vancomycin HCl 2,750 mg/ (Sodium Chloride) 555 mls @ 200 mls/hr IV NOW ONE; Protocol Stop: 02/26/19 22:23 Last Infusion: 02/27/19 02:07 Dose: 0 mls/hr Documented by: [id number] Infusion: 02/27/19 00:11 Dose: 200 mls/hr Documented by: [id number] Infusion: 02/26/19 23:46 Dose: 0 mls/hr Documented by: [id number] Admin: 02/26/19 22:52 Dose: 200 mls/hr Documented by: [id number] Sodium Chloride (Nss) 500 mls @ 999 mls/hr IV .Q31M ONE Stop: 02/26/19 22:31 Last Infusion: 02/26/19 23:46 Dose: 0 mls/hr Documented by: [id number] Infusion: 02/26/19 22:12 Dose: 250 mls/hr Documented by: [id number] Admin: 02/26/19 22:01 Dose: 500 mls/hr Documented by: [id number] Furosemide 20 mg/ Syringe 2 mls @ 4 mls/min IV ONE ONE Stop: 02/27/19 00:31 Last Admin: 02/27/19 01:32 Dose: 4 mls/min Documented by: [id number] Medical Decision Making Differential Diagnosis Differential diagnosis: Etiologies such as cellulitis, abscess, MRSA infection, DVT, necrotizing fasciitis, dermatitis, drug eruption, as well as others were entertained. Medical Records Attestation: I reviewed the patient's medical records. Laboratory Data Attestation: I reviewed the patient's lab results. Result diagrams: 02/26/19 21:31 02/26/19 21:31 Lab Results 02/26/19 02/26/1919 Range/Units 21:31 21:31 21:31 WBC 10.61 (4.8-10.8) K/uL RBC 3.81 L (4.2-5.4) M/uL Hgb 10.4 L (12.0-16.0) g/dL Hct 32.7 L (37-47) % MCV 85.8 (80-100) fL MCH 27.3 (25-34) pg MCHC 31.8 L (32-36) g/dL RDW Std Deviation 56.4 H (36.4-46.3) fL RDW Coeff of Cherelle 18.1 H (11.5-14.5) % Plt Count 223 (130-400) K/uL MPV 10.3 (7.4-10.4) fL Immature Gran % (Auto) 0.4 % Neut % (Auto) 66.3 % Lymph % (Auto) 23.1 % Gillespie % (Auto) 7.7 % Eos % (Auto) 2.4 % Baso % (Auto) 0.1 % Immature Gran # (Auto) 0.04 H (0.00-0.02) K/uL Neut # (Auto) 7.04 H (1.4-6.5) K/uL Lymph # (Auto) 2.45 (1.2-3.4) K/uL Gillespie # (Auto) 0.82 H (0.11-0.59) K/uL Eos # (Auto) 0.25 (0-0.5) K/uL Baso # (Auto) 0.01 (0-0.2) K/uL PT 10.9 (9.0-12.0) Seconds INR 1.1 (0.9-1.1) APTT 25.5 (21.0-31.0) Seconds PTT Ratio 0.9 Sodium 141 (136-145) mmol/L Potassium 3.8 (3.5-5.1) mmol/L Chloride 103 (98-107) mmol/L Carbon Dioxide 33 H (21-32) mmol/L Anion Gap 5.0 (3-11) BUN 30 H (7-18) mg/dl Creatinine 1.37 H (0.6-1.2) mg/dl Est Cr Clr Drug Dosing 59.6 ml/min Est GFR ( Amer) 47.5 Est GFR (Non-Af Amer) 40.9 BUN/Creatinine Ratio 22.2 H (10-20) Glucose 56 L (70-99) mg/dl Lactate (0.4-2.0) mmol/L Calcium 9.7 (8.5-10.1) mg/dl Phosphorus 2.6 (2.5-4.9) mg/dl Magnesium 2.2 (1.8-2.4) mg/dl Total Bilirubin 0.3 (0.2-1) mg/dl AST 12 L (15-37) U/L ALT 28 (12-78) U/L Alkaline Phosphatase 96 (45-117) U/L Total Protein 7.3 (6.4-8.2) gm/dl Albumin 2.9 L (3.4-5.0) gm/dl Globulin 4.4 H (2.5-4.0) gm/dl Albumin/Globulin Ratio 0.7 L (0.9-2) 02/26/19 Range/Units 21:31 WBC (4.8-10.8) K/uL RBC (4.2-5.4) M/uL Hgb (12.0-16.0) g/dL Hct (37-47) % MCV (80-100) fL MCH (25-34) pg MCHC (32-36) g/dL RDW Std Deviation (36.4-46.3) fL RDW Coeff of Cherelle (11.5-14.5) % Plt Count (130-400) K/uL MPV (7.4-10.4) fL Immature Gran % (Auto) % Neut % (Auto) % Lymph % (Auto) % Gillespie % (Auto) % Eos % (Auto) % Baso % (Auto) % Immature Gran # (Auto) (0.00-0.02) K/uL Neut # (Auto) (1.4-6.5) K/uL Lymph # (Auto) (1.2-3.4) K/uL Gillespie # (Auto) (0.11-0.59) K/uL Eos # (Auto) (0-0.5) K/uL Baso # (Auto) (0-0.2) K/uL PT (9.0-12.0) Seconds INR (0.9-1.1) APTT (21.0-31.0) Seconds PTT Ratio Sodium (136-145) mmol/L Potassium (3.5-5.1) mmol/L Chloride (98-107) mmol/L Carbon Dioxide (21-32) mmol/L Anion Gap (3-11) BUN (7-18) mg/dl Creatinine (0.6-1.2) mg/dl Est Cr Clr Drug Dosing ml/min Est GFR ( Amer) Est GFR (Non-Af Amer) BUN/Creatinine Ratio (10-20) Glucose (70-99) mg/dl Lactate 1.9 (0.4-2.0) mmol/L Calcium (8.5-10.1) mg/dl Phosphorus (2.5-4.9) mg/dl Magnesium (1.8-2.4) mg/dl Total Bilirubin (0.2-1) mg/dl AST (15-37) U/L ALT (12-78) U/L Alkaline Phosphatase (45-117) U/L Total Protein (6.4-8.2) gm/dl Albumin (3.4-5.0) gm/dl Globulin (2.5-4.0) gm/dl Albumin/Globulin Ratio (0.9-2) Imaging Data Radiologist's Impression: Radiology results as stated below per my review and the radiologist's interpretation: XR chest 1V portable HISTORY: Shortness of breath. Fluid retention. Sepsis COMPARISON: Chest CTA 519. FINDINGS: No pneumothorax. No pleural effusions. The heart remains enlarged. Diffuse interstitial thickening persists. No new focal lung consolidations. IMPRESSION: No change in the cardiomegaly and diffuse interstitial thickening. This can be chronic or due to mild congestive change. Electronically signed by: Papi Jorge M.D. 02/26/2019 8:01 PM ECG Data Attestation: I personally reviewed and interpreted this ECG as follows: Indication: other (sepsis) Rate (beats per minute): 93 Rhythm: normal sinus Findings: + other (normal axis); no acute ischemic change Blood Pressure Blood Pressure Findings: Elevated blood pressure Blood Pressure Disposition: further management by hospitalist FARIDA Narrative The patient is a pleasant 63-year-old woman with a past medical history of diabetes, CHF on home O2, CKD presents emergency department with worsening bilateral lower extremity swelling redness and pain after being seen in the emergency department several days ago for similar symptoms and diagnosed with ce llulitis and started on doxycycline per hpi. On arrival patient is no acute distress, afebrile stable vital signs. On exam patient has 3+ bilateral lower extremity pitting edema with mild erythema and warmth to the bilateral lower legs. Patient reports that she is so uncomfortable from her pain that she is unable to ambulate and had to come in an ambulance. Given this, patient prefers admission at this time. Patient was difficult to obtain IV access but ultimately obtained with ultrasound-guided peripheral IV at the bedside per procedure note. WBC within normal limits. H/H 10.4/32.7 similar to prior range of values. Platelets within normal limits. Chemistry without acidosis. Creati nine 1.3 within patient's baseline range for CKD. Lactate 1.9 within normal limits. Electrolytes and LFTs unremarkable. UA without convincing evidence of infection. Treatment initiated with CTX and Vancomycin. Case was discussed with Dr. Nixon, [facility] hospitalist, who will evaluate the patient for admission. Impression & Plan Cellulitis, Diabetes, CKD (chronic kidney disease) Discharge Plan Visit Data *Final* Discharge Date/Time: 02/26/19 23:44 Chief Complaint: Infection Stated Complaint: BLE Cellulitis ED Provider: Hector Lobato Discharge Problem: Cellulitis, Diabetes, CKD (chronic kidney disease) Patient Disposition: Admitted As Inpatient Discharge Instructions Interventions: ED Discharge Assessment Last Done: 02/26/19 23:44 Discharge Problem: Cellulitis Qualifiers: Site of cellulitis: extremity Site of cellulitis of extremity: lower extremity Laterality: unspecified laterality Qualified Code(s): L03.119 - Cellulitis of unspecified part of limb The scribe's documentation has been prepared under my direction and personally reviewed by me in its entirety. I confirm that the note above accurately reflects all work, treatment, procedures, and medical decision making performed by me.
[2019-02-26 21:45] LABS: Basophils # (auto) 0.01 K/uL (0-0.2); Basophils % (auto) 0.1 %; Eosinophils # (auto) 0.25 K/uL (0-0.5); Eosinophils % (auto) 2.4 %; Hematocrit (blood only) 32.7 % (37-47); Hemoglobin 10.4 g/dL (12.0-16.0); Immature Granulocytes # (auto) 0.04 K/uL (0.00-0.02); Immature Granulocytes % (auto) 0.4 %; Lymphocytes # (auto) 2.45 K/uL (1.2-3.4); Lymphocytes % (auto) 23.1 %; Mean Corpuscular Hgb Conc 31.8 g/dL (32-36); Mean Corpuscular Volume 85.8 fL (80-100); Mean Platelet Volume 10.3 fL (7.4-10.4); Monocytes # (auto) 0.82 K/uL (0.11-0.59); Monocytes % (auto) 7.7 %; Neutrophils # (auto) 7.04 K/uL (1.4-6.5); Neutrophils % (auto) 66.3 %; Platelet Count 223 K/uL (130-400); RDW Coefficient of Variation 18.1 % (11.5-14.5); RDW Standard Deviation 56.4 fL (36.4-46.3); Red Blood Count 3.81 M/uL (4.2-5.4); White Blood Count 10.61 K/uL (4.8-10.8)
[2019-02-26 21:57] LABS: INR 1.1 (0.9-1.1); Partial Thromboplastin Ratio 0.9; Partial Thromboplastin Time 25.5 Seconds (21.0-31.0); Prothrombin Time 10.9 Seconds (9.0-12.0)
[2019-02-26] MEDS ORDERED: SODIUM CHLORIDE 0.9% 500 ML IV ONE (22:01)
[2019-02-26 22:04] LABS: Albumin Level 2.9 gm/dl (3.4-5.0); BUN Creatinine Ratio 22.2 (10-20); Calcium 9.7 mg/dl (8.5-10.1); Creatinine Clr Calc Pharmacy 59.6 ml/min; Est GFR (African American) 47.5; Est GFR (Non-African American) 40.9; Magnesium 2.2 mg/dl (1.8-2.4); Potassium 3.8 mmol/L (3.5-5.1)
[2019-02-26 22:07] LABS: Albumin Globulin Ratio 0.7 (0.9-2); Bilirubin,Total 0.3 mg/dl (0.2-1); Globulin 4.4 gm/dl (2.5-4.0); Phosphorus 2.6 mg/dl (2.5-4.9); Total Protein 7.3 gm/dl (6.4-8.2)
[2019-02-26 23:32] LABS: Appearance Urine Clear (Clear); Bacteria Urine Automated Negative (Negative); Bilirubin Urine Negative (Negative); Blood Urine 1+ (Negative); Cast Urine Automated 0 /lpf (0-5); Color Urine Yellow; Epithelial Cell Urine Auto 20-30 /lpf (0-5); Glucose Urine UA Negative (Negative); Ketones Urine Negative (Negative); Leukocyte Esterase Urine Trace (Negative); Nitrite Urine Negative (Negative); Protein Urine 3+ (Negative); RBC Urine Automated 0-4 /hpf (0-4); Specific Gravity Urine 1.016 (1.000-1.030); Urobilinogen Urine Negative (Negative)
[2019-02-26] MEDS ORDERED: ACETAMINOPHEN 325 MG TAB PO PRN (23:55)
[2019-02-26] MEDS ORDERED: LEVALBUTEROL HCL 0.63 MG/3 ML NEB INH PRN (23:55)
[2019-02-26] MEDS ORDERED: ONDANSETRON INJ 2 MG/ML 2 ML VIAL IV PRN (23:55)
[2019-02-26] MEDS ORDERED: LEVALBUTEROL TARTRATE 15 GM HFA.AER.AD INH PRN (23:55)
[2019-02-26] MEDS ORDERED: FLUTICASONE/SALMETEROL 250/50 (ADVAIR) 14 PUFF/1 INHALER INH PRN (23:55)
[2019-02-27] MEDS ORDERED: PHARMACY GLYCEMIC MGMT CONSULT STA (00:01)
[2019-02-27] MEDS ORDERED: PHARMACY GLYCEMIC MGMT CONSULT PRN (00:07)
[2019-02-27] MEDS ORDERED: FUROSEMIDE 20 MG in SYRINGE 0 ML IV ONE (00:30)
[2019-02-27] MEDS: MONTELUKAST SODIUM 10 MG TABLET PO SCH ×2 (01:33→20:29)
[2019-02-27] MEDS: ROSUVASTATIN CALCIUM 20 MG TAB PO SCH ×2 (01:33→23:02)
[2019-02-27] MEDS: LIOTHYRONINE SODIUM 5 MCG TAB PO SCH ×2 (01:34→20:29)
--- NOTE | 2019-02-27 02:48 | History & Physical Report ---
Date of Service February 27, 2019 Assessment & Plan (1) Cellulitis: 63-year-old female with history of T2DM, HTN, HLD, CAD s/p PCI and stent, Hypothyroidism, GERD presents with bilateral lower extremity redness, swelling and pain. The patient was seen in the emergency room yesterday with the s ymptoms in the right leg and was diagnosed with cellulitis and was discharged home with oral doxycycline. Over the course of the day, cellulitis progressed to the left leg. The patient is not septic. She was admitted with the following in mind: Severe pain in bilateral legs and moderate to severe bilateral lower extremity cellulitis which may benefit from IV antibiotics. Bilateral lower extremity cellulitis Admitted for observation Treating with IV vancomycin and ceftriaxone One-time dose of IV Lasix given for edema, continue home p.o. Lasix Possible diastolic heart failure Patient has chronic shortness of breath, x-ray shows cardiomegaly and signs of vascular congestion without overt pulmonary edema Echo 08/2017 showed preserved ejection fraction Shortness of breath may be multifactorialCHF?, Obesity hypoventilation syndrome?, Asthma ? Continue home Lasix, IV dose provided in the ED Admit to med telemetry Type 2 diabetes, questionable control Per patient, recent A1c was 8.0, patient is convinced this is secondary to steroid treatment for bronchitis, although the patient was only on steroids 1 week ago Discussed insulin regimen with pharmacy, patient is on U500, glycemic consult recommended Hypertension/HLD/CAD Continue amlodipine, furosemide, losartan, Crestor Asthma Continue montelukast, Xopenex GERD Continue Protonix DVT prophylaxis Patient describes a history of significant GI bleeddeferring chemical prophylaxis. Deferring mechanical prophylaxis considering significant lower extremity cellulitis Ambulate the patient as tolerated CODE STATUS Full code (2) Hypothyroidism: (3) Hypertension: (4) Diabetes: (5) GI bleeding: (6) Symptomatic anemia: History of Present Illness Primary Care Provider: Melissa Camilo PA-C 63-year-old female with history of T2DM, HTN, HLD, CAD s/p PCI and stent, Hypothyroidism, GERD presents with bilateral lower extremity redness, swelling and pain. The patient was seen in the emergency room yesterday with the symptoms in the right leg and was diagnosed with cellulitis and was discharged home with oral doxycycline. Patient describes that the left leg became painful and red throughout the course of the day today. She states that the swelling and the pain in her legs is severe enough to make it difficult to walk. The patient is obese and has significant lower extremity edema at baseline. Patient has a history of diabetes with questionable glycemic controlstates that her last A1c was greater than 8.0. The patient amounts her elevated A1c to being on steroids, although she was only on a short burst which she finished 1 week ago. The patient was sick with bronchitis. She currently describes a recent history of worsening respiratory function. Allergies Allergy/AdvReac Type Severity Reaction Status Date / Time shellfish derived Allergy Severe "SEAFOOD" Verified 02/24/19 11:47 -- HIVES and ANAPHLYAXIS sulfite Allergy Severe HIVES AND Verified 02/24/19 11:47 THROAT CLOSES Iodinated Contrast- Oral and Allergy Unknown Unknown Verified 02/26/19 20:43 IV Dye iodine Allergy Unknown Unknown Verified 02/24/19 11:47 Home Medications Home Medications Medication Instructions Recorded Confirmed Type fluticasone propionate [24 Hour 2 spray INTRANASAL DAILY PRN 03/25/18 02/26/19 History Allergy Relief] montelukast 10 mg PO QPM 03/25/18 02/26/19 History levalbuterol tartrate [Xopenex HFA] 2 inh INHALATION Q4H PRN 06/25/18 02/26/19 History losartan 50 mg PO QAM 06/25/18 02/26/19 History epinephrine [EpiPen] 0.3 mg IM DIRECTED PRN 08/16/18 02/26/19 History fluticasone propion-salmeterol 1 puff INHALATION BID PRN 08/16/18 02/26/19 History insulin regular hum U-500 conc 50 units SUBCUT BID 08/16/18 02/26/19 History insulin regular hum U-500 conc 120 units SUBCUT QPM 08/16/18 02/26/19 History ferrous sulfate 325 mg PO BID #60 tab 08/22/18 02/26/19 Rx loperamide [Imodium A-D] 2 mg PO DIRECTED PRN 09/19/18 02/26/19 History levothyroxine 88 mcg PO QAM 10/25/18 02/26/19 History amlodipine 2.5 mg PO QAM 02/24/19 02/26/19 History furosemide 20 mg PO QAM 02/26/19 02/26/19 History levalbuterol HCl 0.63 mg INHALATION DIRECTED PRN 02/26/19 02/26/19 History liothyronine 5 mcg PO HS 02/26/19 02/26/19 History omeprazole 20 mg PO QAM 02/26/19 02/26/19 History rosuvastatin 20 mg PO QPM 02/26/19 02/26/19 History Past Med/Surg History Medical History Diabetes (Chronic) GERD (gastroesophageal reflux disease) (Chronic) Diverticulitis (Resolved) Thyroid cancer (Resolved) Acute respiratory failure with hypoxia CHF (congestive heart failure) CAD S/P percutaneous coronary angioplasty (Chronic) Chronic respiratory failure (Chronic) 1 to 2 L oxygen Morbid obesity (Chronic) Surgical History H/O endoscopy H/O partial thyroidectomy History of colonoscopy History of percutaneous coronary intervention Family History Other No pertinent family history Social History Preferred Language: [place] 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 Beliefs That Will Affect Care: Mormonism Mormonism Beliefs: Druze Current Living Situation: Spouse Other Information That Helps Us Care for You: No Feels Safe at Home: Yes Safety Concerns: Feels Safe At This Time Smoking Status: Never smoker Do You Dip or Chew Tobacco: No ; Second Hand Exposure: No ; Hx Alcohol Use: No Hx Substance Use: No Review of Systems Review of Systems: All systems reviewed & are unremarkable except as noted in HPI & below Physical Exam Constitutional: well developed, well nourished and + morbidly obese Eyes: PERRL, conjunctivae normal, anicteric sclerae ENMT: external ear and nose normal, oropharynx normal Neck: trachea midline, no thyromegaly Respiratory: normal respiratory effort, lungs clear to auscultation Cardiovascular: RRR, no murmur, no edema Gastrointestinal (Abdomen): normal bowel sounds, soft, nontender, no hepatosplenomegaly Musculoskeletal: no cyanosis or clubbing, extremities motor strength 5/5 Skin: Warmth, erythema extending from bilateral ankles to just below the knee. The skin is taut and painful to touch. Bilateral lower extremity edema. No notable open wounds on bilateral lower extremity. Neurologic: PERRL, EOMI, accommodation nl, no face palsy, no dysarthria Psychiatric: A+Ox3, euthymic affect Results & Data Vital Signs (Past 12 Hours) Vital Signs Temp Pulse Pulse Resp BP BP Pulse Ox 02/26/19 23:55 98 H 02/26/19 23:29 99 H 24 145/58 H 99 02/26/19 23:01 97 H 22 161/61 H 99 02/26/19 22:00 91 H 14 157/57 H 99 02/26/19 21:57 94 H 21 159/57 H 99 02/26/19 19:58 99 02/26/19 19:52 91 H 22 168/54 H 99 02/26/19 19:08 36.6 C 96 H 18 209/60 H 100 Supervising Physician Co-Signing Physician Notes Attending addendum: I have physically seen this patient, have supervised the medical residents activities, and agree with the H&P unless as otherwise noted. Assessment and Plan: Bilateral lower extremity cellulitis/failure of outpatient treatment- Placed on vancomycin IV and ceftriaxone IV Aggravated by chronic lymphedema with overlying venous insufficiency- Given Lasix 40 mg IV x1 tonight. Resume p.o. Lasix tomorrow if satisfactory improvement. Patient may require PICC line for home antibiotics upon discharge. CAD/hypertension/chronic diastolic heart failure- The patient will be admitted to telemetry for serial cardiac enzymes, serial EKG's, cardiac rhythm monitoring and a 2-D echocardiogram with Dopplers. Continue amlodipine, losartan and adjusted Lasix as noted above. Remainder of orders and notations as noted. PG Care Time/CCT Total # of Minutes Spent Total Time Spent with Patient: Total time spent is greater than 50% in coordination of care (as documented) at patient's floor/unit and/or counseling patient: Resident Activity Tracking Resident Involvement: Resident Care Provided Care Provided: Adult Hospital Medicine (1) Cellulitis Laterality: unspecified laterality Site of cellulitis: extremity Site of cellulitis of extremity: lower extremity Qualified Code(s): L03.119 - Cellulitis of unspecified part of limb
--- NOTE | 2019-02-27 03:35 | Pharmacy Report ---
Pharmacy Abx Dose Short Note - Date of Service February 27, 2019 - Assessment & Plan Laboratory Tests 02/26/19 02/26/19 21:31 21:31 WBC 10.61 Creatinine 1.37 H Est Cr Clr Drug Dosing 59.6 Assessment 63 year old morbidly obese F receiving VANC for treatment of B/L cellulitis Day # 1 of antimicrobial therapy. Also ordered ceftriaxone 2g iv q 24 hours Plan Vanc-IV: * Estimated pharmacokinetics: Ke~0.534 hr-1, T 1/2~13 hrs * LOADING DOSE: VANC 2750mg (~17mg/kg) IV x 1, then * MAINTENANCE DOSE: VANC 1500mg (~10mg/kg) IV q 14 hours. Pt is prone to drug accumulation over time in settig of morbid obesity. * Goal trough level: ~15 mcg/mL * VANC Trough @ Css level ordered prior to 02/28/19 0800 dose Pharmacy will continue to follow and will adjust dose/frequency as necessary. Thank you.
[2019-02-27] MEDS: VANCOMYCIN HCL 1,500 MG in SODIUM CHLORIDE 0.9% 500 ML IV SCH ×2 (04:07→17:27)
[2019-02-27] MEDS: LEVOTHYROXINE SODIUM 88 MCG TABLET PO SCH (07:46)
[2019-02-27] MEDS: PANTOprazole 40 MG TAB PO SCH (07:46)
[2019-02-27] MEDS: LOSARTAN POTASSIUM 50 MG TAB PO SCH (07:46)
[2019-02-27] MEDS: AMLODIPINE BESYLATE 5 MG TAB PO SCH (07:46)
[2019-02-27] MEDS: FUROSEMIDE 20 MG TAB PO SCH (07:46)
[2019-02-27] MEDS ORDERED: PIPERACILL/TAZOBAC CONSULT ACTIVE PRN ×2 (07:57→08:45)
[2019-02-27] MEDS ORDERED: PIPERACILLIN/TAZOBACTAM 3.375 GM in DEXTROSE 5% 100 ML IV SCH ×2 (08:00→08:45)
[2019-02-27] MEDS ORDERED: cefTRIAXone SODIUM 2,000 MG in DEXTROSE 5% 50 ML IV SCH (08:00)
[2019-02-27 08:07] LABS: Basophils # (auto) 0.02 K/uL (0-0.2); Basophils % (auto) 0.2 %; Eosinophils # (auto) 0.18 K/uL (0-0.5); Eosinophils % (auto) 1.6 %; Hematocrit (blood only) 29.2 % (37-47); Hemoglobin 9.4 g/dL (12.0-16.0); Immature Granulocytes # (auto) 0.04 K/uL (0.00-0.02); Immature Granulocytes % (auto) 0.4 %; Lymphocytes # (auto) 2.37 K/uL (1.2-3.4); Mean Corpuscular Hgb Conc 32.2 g/dL (32-36); Mean Corpuscular Volume 85.9 fL (80-100); Mean Platelet Volume 10.7 fL (7.4-10.4); Monocytes # (auto) 0.78 K/uL (0.11-0.59); Monocytes % (auto) 6.9 %; Neutrophils # (auto) 7.87 K/uL (1.4-6.5); Neutrophils % (auto) 69.9 %; Platelet Count 211 K/uL (130-400); RDW Coefficient of Variation 18.4 % (11.5-14.5); RDW Standard Deviation 57.8 fL (36.4-46.3); White Blood Count 11.26 K/uL (4.8-10.8)
[2019-02-27 08:43] LABS: BUN Creatinine Ratio 21.8 (10-20); Calcium 8.9 mg/dl (8.5-10.1); Creatinine Clr Calc Pharmacy 60.9 ml/min; Est GFR (African American) 48.7; Est GFR (Non-African American) 42.1; Potassium 4.2 mmol/L (3.5-5.1)
[2019-02-27] MEDS ORDERED: PIPERACILLIN/TAZOBACTAM 4.5 GM in DEXTROSE 5% 100 ML IV ONE (09:00)
[2019-02-27] MEDS ORDERED: MICONAZOLE NITRATE POWDER 43 GM EXT PRN (09:23)
[2019-02-27 09:46] LABS: Estimated Average Glucose 217 mg/dl; Hemoglobin A1C 9.2 % (4.5-5.6)
[2019-02-27] MEDS: OXYCODONE/ACETAMINOPHEN 5mg/325mg TAB PO PRN ×2 (09:50→20:28)
[2019-02-27] MEDS: INSULIN ASPART 100 UNITS/ML 3 ML PEN SC SCH ×3 (12:18→20:26)
[2019-02-27] MEDS: PIPERACILLIN/TAZOBACTAM 4.5 GM in DEXTROSE 5% 100 ML IV SCH ×2 (14:04→22:08)
--- NOTE | 2019-02-27 14:22 | Pharmacy Report ---
Glycemic Control Consultation - Date of Service February 27, 2019 - Scope Scope: Glycemic Pharmacist consulted by Dr Nahid Aguila on 02/27/19 for glycemic control and to write orders per [facility] inpatient glycemic control protocol - Objective Weight: 156.2 kg Accuchecks BSG (last 24hrs): 02/26/19 02/26/19 02/26/19 21:31 22:49 23:07 Glucose 56 L POC Glucose 52 L* 64 L* 02/26/19 02/27/19 02/27/19 23:27 01:31 07:48 Glucose POC Glucose 73 137 H 236 H 02/27/19 02/27/19 07:58 11:37 Glucose 240 H POC Glucose 290 H Laboratory Data (last 24hrs): 02/26/19 02/27/19 21:31 07:58 Potassium 3.8 4.2 Carbon Dioxide 33 H 27 Anion Gap 5.0 7.0 Creatinine 1.37 H 1.34 H Est Cr Clr Drug Dosing 59.6 60.9 HbA1c: Hemoglobin A1c 9.2 % (4.5-5.6) H 02/27/19 07:58 - Recent Pertinent Medications Outpatient Anti-diabetic Regimen: * U500 - 50 units with Breakfast and Lunch, 120 units with dinner * A1c = 9.2 % 02/27/19 Risk Factors for Insulin Resistance: * Infection: BL Cellulitis - IV Vancomycin & Zosyn * Diet: Type 2 DM - Assessment & Plan Assessment & Plan: ASSESSMENT: * 63 year old female admitted with BLLE cellulitis, on IV Vancomycin and Zosyn. * Type 2 diabetic on U500 insulin as outpatient, known to pharmacy glycemic service. * Patient prefers to only use U500 insulin, discussed using Novolog just for correctional insulin while inpatient for better glycemic control, especially in the setting of infection, patient is agreeable. 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 * Will continue home dose of U500, but give reduced PM dose. Discussed with patient, she states she would give herself 50 units at dinner when experiencing hypoglycemia. Patient does seem to require less insulin when admitted, will try this dose tonight and titrate up based on blood sugars. * ADA & AACE recommend a goal blood sugar range 140-180 mg/dl for the majority of critically ill & non-critically ill patients. However, more stringent targets may be selected in individual cases. Will utilize more stringent goal of 110-140mg/dl based on patient age & comorbidities. Additionally, tighter glycemic control is warranted to facilitate wound/infection healing. PLAN FOR INPATIENT GLYCEMIC CONTROL: * Basal & Prandial insulin * U500 - 50 units SQ TID with meals * Bolus insulin * NovoLog per scale ACHS or Q6hrs while NPO * Goal Range: Low 110 mg/dL - High 140 mg/dL * Correction Factor: 12 mg/dL/unit * Please note that the plan above was derived based on current level of insulin resistance and hospital stress. These recommendations are appropriate for inpatient admission only. Plan of care upon discharge will need to be reassessed to avoid potential outpatient hypo/hyperglycemia. Thank you.
--- NOTE | 2019-02-27 15:26 | Family Medicine Progress Note ---
Date of Service February 27, 2019 Assessment & Plan (1) Cellulitis: 63-year-old female with history of T2DM, HTN, HLD, CAD s/p PCI and stent, Hypothyroidism, GERD presents with bilateral lower extremity redness, swelling and pain. Bilateral lower extremity cellulitis Treatment with IV Vancomycin and Ceftriaxone, changed to Vancomycin and Zosyn for Pseudomonas coverage - hope to convert to oral abx tomorrow. One-time dose of IV Lasix given for edema in ED, continue home p.o. Lasix Type 2 diabetes, questionable control Per patient, recent A1c was 8.0, patient is convinced this is secondary to steroid treatment for bronchitis, although the patient was only on steroids 1 week ago. Discussed insulin regimen with pharmacy, patient is on U500, glycemic consult placed. Chronic SOB, ?possible Diastolic HF Patient has chronic shortness of breath, x-ray shows cardiomegaly and signs of vascular congestion without overt pulmonary edema Echo 08/2017 showed preserved ejection fraction Shortness of breath may be multifactorialCHF?, Obesity hypoventilation syndrome?, Asthma ? Continue home Lasix, IV dose provided in the ED Admit to med telemetry - Patient was sinus throughout the night. 1L at home. -Currently 96% on 2L, patient states that she is Hypothyroidism -Continue home Levothyroxine and Liothyronine. Hypertension/HLD/CAD Continue amlodipine, furosemide, losartan, Crestor Asthma Continue montelukast, Xopenex GERD Continue Protonix FEN/GI - No Fluids Code - Full DVT - Pt describes hx of GI bleed-defer chemical prophylaxis. Pt has significant lower extremity cellulitis, defer mechanical prophylaxis. Encourage patient to ambulate as tolerated. (2) Hypothyroidism: (3) Hypertension: (4) Diabetes: (5) GI bleeding: (6) Symptomatic anemia: Supervising Physician Co-Signing Physician Notes I personally examined the patient and verified all boone points of history and exam, discussed case, and agree with decision making with Dr Ibrahim. Legs feeling dramatically better. Extensively discussed lifestyle with type 2 diabetes. She notes that actually over the last 2 months she is made rather massive lifestyle changes, and during that time while she is not sure if she is affected much weight loss, she has noted that she is on dramatically less insulin than she was 2 to 3 months ago. 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 Vitals noted, in general she is awake and alert pleasant no distress. HEENT normocephalic atraumatic mucous members are moist. Breathing unlabored no accessory muscle use good effort. Bilateral lower extremities show chronic venous stasis changes with flaking skin. The erythema described at admission and by Dr. Ibrahim earlier today are now gone, there is more of a dull pink. It is nontender, no crepitus. Lower extremity cellulitislikely related to venous stasis. Failure of treatment on doxycycline seems most likely to have been due to strep versus less likely gram-negative's. She is improving on Vanco and Zosyn. Continue IV antibiotics into morning, then likely discharge home on oral antibiotics Uncontrolled type 2 diabetesshe appears to be making massive lifestyle changes in her favor. It is possible that her anemia led to a falsely elevated A1c, obviously this will need followed closely in the office over a longitudinal setting. Applauded her lifestyle changes, also discussed potential changes (such as less potatoes and pasta) that would continue her improvements. Subjective Patient seen this AM at the bedside. Patient appears to be in mild distress and states that her legs are still painful R>L. She does note having recently moved from sitting in the chair to laying in her bed because of the increase in pain. She states that the redness and pain in her legs is a fairly new symptom, but that she has always had trouble with the swelling. She cannot think of any incident that led to the initial infection, only that it began in her R leg 2 days ago and then started spreading onto her L leg yesterday as well. She had been taking Doxycycline as prescribed between the incidents, but it did not improve her symptoms of either leg. She has no other complaints at this time. Review of Systems Constitutional: + chills (yesterday); no fever and no sweats Eyes: no eye pain Ear, Nose, Mouth, Throat: no ear pain, no tinnitus and no dizziness Respiratory: no cough, no chest congestion, no dyspnea and no pain on inspiration Cardiovascular: + edema; no chest pain, no radiating jaw, neck or arm pain and no palpitations Gastrointestinal: no abdominal pain, no nausea, no vomiting, no constipation and no diarrhea/loose stools Genitourinary: no dysuria, no urinary frequency, no urinary incontinence and no hematuria Integumentary: + rash, + erythema and + skin swelling Physical Exam Constitutional: well developed, well nourished and + morbidly obese Eyes: PERRL, conjunctivae normal, anicteric sclerae ENMT: external ear and nose normal, oropharynx normal Respiratory: normal respiratory effort (On 1L O2); no labored breathing and does not use accessory muscles Auscultation: lungs clear to auscultation bilaterally Cardiovascular: RRR, no murmur, no edema Gastrointestinal (Abdomen): normal bowel sounds, soft, nontender, no hepatosplenomegaly Musculoskeletal: no cyanosis or clubbing, extremities motor strength 5/5 Skin: Cellulitis of the distal LE B/L. Also noted is chronic venous stasis. Neurologic: PERRL, EOMI, accommodation nl, no face palsy, no dysarthria Psychiatric: A+Ox3, euthymic affect Results & Data Vital Signs (Past 12 Hours) Vital Signs Temp Pulse Pulse Pulse Resp BP BP 02/27/19 14:43 36.8 C 92 H 16 119/50 L 02/27/19 11:27 36.7 C 18 101/61 02/27/19 08:00 93 H 02/27/19 07:03 36.8 C 92 H 16 119/61 02/27/19 03:56 36.8 C 98 H 20 118/67 Pulse Ox 02/27/19 14:43 95 02/27/19 11:27 95 02/27/19 08:00 02/27/19 07:03 96 02/27/19 03:56 95 Laboratory Results Abnormal lab results 02/26/19 02/26/19 02/26/19 Range/Units 21:31 21:31 22:49 WBC (4.8-10.8) K/uL RBC 3.81 L (4.2-5.4) M/uL Hgb 10.4 L (12.0-16.0) g/dL Hct 32.7 L (37-47) % MCHC 31.8 L (32-36) g/dL RDW Std Deviation 56.4 H (36.4-46.3) fL RDW Coeff of Cherelle 18.1 H (11.5-14.5) % MPV (7.4-10.4) fL Immature Gran # (Auto) 0.04 H (0.00-0.02) K/uL Neut # (Auto) 7.04 H (1.4-6.5) K/uL [place]hin # (Auto) 0.82 H (0.11-0.59) K/uL Carbon Dioxide 33 H (21-32) mmol/L BUN 30 H (7-18) mg/dl Creatinine 1.37 H (0.6-1.2) mg/dl BUN/Creatinine Ratio 22.2 H (10-20) Glucose 56 L (70-99) mg/dl POC Glucose 52 L* (70-99) Hemoglobin A1c (4.5-5.6) % AST 12 L (15-37) U/L Albumin 2.9 L (3.4-5.0) gm/dl Globulin 4.4 H (2.5-4.0) gm/dl Albumin/Globulin Ratio 0.7 L (0.9-2) Urine Protein (Negative) Urine Blood (Negative) Ur Leukocyte Esterase (Negative) Urine WBC (Auto) (0-5) /hpf U Epithel Cells (Auto) (0-5) /lpf 02/26/19 02/26/19 02/27/19 Range/Units 23:07 23:18 01:31 WBC (4.8-10.8) K/uL RBC (4.2-5.4) M/uL Hgb (12.0-16.0) g/dL Hct (37-47) % MCHC (32-36) g/dL RDW Std Deviation (36.4-46.3) fL RDW Coeff of Cherelle (11.5-14.5) % MPV (7.4-10.4) fL Immature Gran # (Auto) (0.00-0.02) K/uL Neut # (Auto) (1.4-6.5) K/uL [place] # (Auto) (0.11-0.59) K/uL Carbon Dioxide (21-32) mmol/L BUN (7-18) mg/dl Creatinine (0.6-1.2) mg/dl BUN/Creatinine Ratio (10-20) Glucose (70-99) mg/dl POC Glucose 64 L* 137 H (70-99) Hemoglobin A1c (4.5-5.6) % AST (15-37) U/L Albumin (3.4-5.0) gm/dl Globulin (2.5-4.0) gm/dl Albumin/Globulin Ratio (0.9-2) Urine Protein 3+ H (Negative) Urine Blood 1+ H (Negative) Ur Leukocyte Esterase Trace H (Negative) Urine WBC (Auto) 5-10 H (0-5) /hpf U Epithel Cells (Auto) 20-30 H (0-5) /lpf 02/27/19 02/27/19 02/27/19 Range/Units 07:48 07:58 07:58 WBC 11.26 H (4.8-10.8) K/uL RBC 3.40 L (4.2-5.4) M/uL Hgb 9.4 L (12.0-16.0) g/dL Hct 29.2 L (37-47) % MCHC (32-36) g/dL RDW Std Deviation 57.8 H (36.4-46.3) fL RDW Coeff of Cherelle 18.4 H (11.5-14.5) % MPV 10.7 H (7.4-10.4) fL Immature Gran # (Auto) 0.04 H (0.00-0.02) K/uL Neut # (Auto) 7.87 H (1.4-6.5) K/uL [place] # (Auto) 0.78 H (0.11-0.59) K/uL Carbon Dioxide (21-32) mmol/L BUN 29 H (7-18) mg/dl Creatinine 1.34 H (0.6-1.2) mg/dl BUN/Creatinine Ratio 21.8 H (10-20) Glucose 240 H (70-99) mg/dl POC Glucose 236 H (70-99) Hemoglobin A1c (4.5-5.6) % AST (15-37) U/L Albumin (3.4-5.0) gm/dl Globulin (2.5-4.0) gm/dl Albumin/Globulin Ratio (0.9-2) Urine Protein (Negative) Urine Blood (Negative) Ur Leukocyte Esterase (Negative) Urine WBC (Auto) (0-5) /hpf U Epithel Cells (Auto) (0-5) /lpf 08/03/1002/27/19 02/27/19 Range/Units 07:58 11:37 16:53 WBC (4.8-10.8) K/uL RBC (4.2-5.4) M/uL Hgb (12.0-16.0) g/dL Hct (37-47) % MCHC (32-36) g/dL RDW Std Deviation (36.4-46.3) fL RDW Coeff of Cherelle (11.5-14.5) % MPV (7.4-10.4) fL Immature Gran # (Auto) (0.00-0.02) K/uL Neut # (Auto) (1.4-6.5) K/uL [place] # (Auto) (0.11-0.59) K/uL Carbon Dioxide (21-32) mmol/L BUN (7-18) mg/dl Creatinine (0.6-1.2) mg/dl BUN/Creatinine Ratio (10-20) Glucose (70-99) mg/dl POC Glucose 290 H 192 H (70-99) Hemoglobin A1c 9.2 H (4.5-5.6) % AST (15-37) U/L Albumin (3.4-5.0) gm/dl Globulin (2.5-4.0) gm/dl Albumin/Globulin Ratio (0.9-2) Urine Protein (Negative) Urine Blood (Negative) Ur Leukocyte Esterase (Negative) Urine WBC (Auto) (0-5) /hpf U Epithel Cells (Auto) (0-5) /lpf Medications Administered Current Inpatient Medications Acetaminophen (Tylenol) 650 mg PO Q4H PRN PRN Reason: Pain or Fever Stop: 03/28/19 23:54 Last Admin: 02/27/19 01:32 Dose: 650 mg Documented by: Amlodipine Bes[facility] ([facility]) [facility] [place] Stop: 03/29/19 08:59 Last Admin: 02/27/19 07:46 Dose: 2.5 mg Documented by: Furosemide (Lasix) 20 mg PO QAM [facility] Stop: 03/29/19 08:59 Last Admin: 02/27/19 07:46 Dose: 20 mg Documented by: Vancomycin HCl 1,500 mg/ (Sodium Chloride) 530 mls @ 200 mls/hr IV Q14H [facility]; Protocol Stop: 03/09/19 03:59 Last Admin: 02/27/19 17:27 Dose: 200 mls/hr Documented by: Insulin Human Regular 50 units (/ Syringe) 0.1 mls @ 0 mls/sec SC TIDM [facility]; Protocol Stop: 03/29/19 08:59 Last Admin: 02/27/19 17:22 Dose: 0.1 mls/sec Documented by: Piperacillin Sod/Tazobactam (Sod 4.5 gm/ Dextrose) 120 mls @ 28.75 mls/hr IV Q8H [facility]; Protocol Stop: 03/09/19 02:11 Last Infusion: 02/27/19 18:24 Dose: Infused Documented by: Insulin Aspart (Novolog Flexpen) 0 units SC ACHS [facility]; Protocol Stop: 03/29/19 12:14 Last Admin: 02/27/19 17:13 Dose: 4 units Documented by: Levalbuterol HCl (Xopenex 0.63 Mg/3 Ml Neb) 0.63 mg INH Q4H PRN PRN Reason: Shortness Of Breath Or Wheezin Stop: 03/28/19 23:54 Levalbuterol HCl (Xopenex Hfa) 2 puffs INH Q4H PRN PRN Reason: Shortness Of Breath Or Wheezing Stop: 03/28/19 23:54 Levothyroxine Sodium (Synthroid) 88 mcg PO DAILYBB [facility] Stop: 03/29/19 06:29 Last Admin: 02/27/19 07:46 Dose: 88 mcg Documented by: Liothyronine Sodium (Cytomel) 5 mcg PO HS [facility] Stop: 03/29/19 20:59 Last Admin: 02/27/19 01:34 Dose: 5 mcg Documented by: Losartan Potassium (Cozaar) 50 mg PO QAM [facility] Stop: 03/29/19 08:59 Last Admin: 02/27/19 07:46 Dose: 50 mg Documented by: Miconazole Nitrate (Desenex) 1 appln EXT PRN PRN PRN Reason: Affected Skin Folds Stop: 03/29/19 09:22 Miscellaneous Information (Consult) 1 ea N/A UD PRN PRN Reason: Consult Stop: 03/28/19 19:35 Miscellaneous Information (Consult Glycemic Management Pharmacy) 1 ea N/A UD PRN PRN Reason: Consult Stop: 03/29/19 00:06 Miscellaneous Information (Consult) 1 ea N/A UD PRN PRN Reason: Consult Stop: 03/29/19 07:56 Montelukast Sodium (Singulair) 10 mg PO QPM [facility] Stop: 03/29/19 20:59 Last Admin: 02/27/19 01:33 Dose: 10 mg Documented by: Ondansetron HCl (Zofran) 4 mg IV Q6H PRN PRN Reason: Nausea Stop: 03/28/19 23:54 Oxycodone/Acetaminophen (Percocet 5mg/325mg) 1 tab PO Q4H PRN PRN Reason: Pain Stop: 03/13/19 01:26 Last Admin: 02/27/19 09:50 Dose: 1 tab Documented by: Pantoprazole Sodium (Protonix) 40 mg PO QAM [facility] Stop: 03/29/19 08:59 Last Admin: 02/27/19 07:46 Dose: 40 mg Documented by: Rosuvastatin Calcium (Crestor) 20 mg PO QPM [facility] Stop: 03/29/19 20:59 Last Admin: 02/27/19 01:33 Dose: 20 mg Documented by: Fluticasone/Salmeterol (Advair Diskus 250/50) 1 puffs INH BID PRN PRN Reason: Chronic Shortness Of Breath Stop: 03/28/19 23:54 Last Admin: 02/27/19 01:33 Dose: 1 puffs Documented by: PG Care Time/CCT Total # of Minutes Spent Total Time Spent with Patient: Total time spent is greater than 50% in coordination of care (as documented) at patient's floor/unit and/or counseling patient: Resident Activity Tracking Resident Involvement: Resident Care Provided Care Provided: Adult Hospital Medicine (1) Cellulitis Laterality: unspecified laterality Site of cellulitis: extremity Site of cellulitis of extremity: lower extremity Qualified Code(s): L03.119 - Cellulitis of unspecified part of limb
[2019-02-27] MEDS ORDERED: Nursing to Pharmacy Communication ONE (20:36)
[2019-02-28] MEDS ORDERED: ROSUVASTATIN CALCIUM 20 MG TAB PO SCH (01:00)
[2019-02-28] MEDS: OXYCODONE/ACETAMINOPHEN 5mg/325mg TAB PO PRN ×2 (01:53→13:43)
[2019-02-28] MEDS: LEVOTHYROXINE SODIUM 88 MCG TABLET PO SCH (06:34)
[2019-02-28] MEDS: PIPERACILLIN/TAZOBACTAM 4.5 GM in DEXTROSE 5% 100 ML IV SCH (06:34)
[2019-02-28] MEDS ORDERED: VANCOMYCIN TROUGH ONE (07:30)
[2019-02-28 07:44] LABS: Hematocrit (blood only) 29.2 % (37-47); Mean Corpuscular Hgb Conc 30.8 g/dL (32-36); Mean Corpuscular Volume 90.1 fL (80-100); Mean Platelet Volume 10.3 fL (7.4-10.4); Platelet Count 194 K/uL (130-400); RDW Coefficient of Variation 18.6 % (11.5-14.5); RDW Standard Deviation 61.2 fL (36.4-46.3); Red Blood Count 3.24 M/uL (4.2-5.4); White Blood Count 9.86 K/uL (4.8-10.8)
[2019-02-28] MEDS: INSULIN ASPART 100 UNITS/ML 3 ML PEN SC SCH ×2 (07:54→12:55)
[2019-02-28] MEDS: PANTOprazole 40 MG TAB PO SCH (07:57)
[2019-02-28] MEDS: LOSARTAN POTASSIUM 50 MG TAB PO SCH (07:57)
[2019-02-28] MEDS: FUROSEMIDE 20 MG TAB PO SCH (07:58)
[2019-02-28] MEDS: AMLODIPINE BESYLATE 5 MG TAB PO SCH (08:01)
[2019-02-28] MEDS: VANCOMYCIN HCL 1,500 MG in SODIUM CHLORIDE 0.9% 500 ML IV SCH (08:11)
[2019-02-28 08:16] LABS: BUN Creatinine Ratio 19.4 (10-20); Calcium 8.9 mg/dl (8.5-10.1); Creatinine Clr Calc Pharmacy 46.2 ml/min; Est GFR (African American) 35.8; Est GFR (Non-African American) 30.9; Potassium 4.1 mmol/L (3.5-5.1)
--- NOTE | 2019-02-28 08:18 | Family Medicine Progress Note ---
Date of Service February 28, 2019 Assessment & Plan (1) Cellulitis: 63-year-old female with history of T2DM, HTN, HLD, CAD s/p PCI and stent, Hypothyroidism, GERD presents with bilateral lower extremity redness, swelling and pain. Bilateral lower extremity cellulitis Treatment with IV Vancomycin and Ceftriaxone, changed to Vancomycin and Zosyn for Pseudomonas coverage - hope to convert to oral abx tomorrow. One-time dose of IV Lasix given for edema in ED, continue home p.o. Lasix Type 2 diabetes, questionable control Per patient, recent A1c was 8.0, patient is convinced this is secondary to steroid treatment for bronchitis, although the patient was only on steroids 1 week ago. Discussed insulin regimen with pharmacy, patient is on U500, glycemic consult placed. Chronic SOB, ?possible Diastolic HF Patient has chronic shortness of breath, x-ray shows cardiomegaly and signs of vascular congestion without overt pulmonary edema Echo 08/2017 showed preserved ejection fraction Shortness of breath may be multifactorialCHF?, Obesity hypoventilation syndrome?, Asthma ? Continue home Lasix, IV dose provided in the ED Admit to med telemetry - Patient was sinus throughout the night. 1L at home. -Currently 96% on 2L, patient states that she is Hypothyroidism -Continue home Levothyroxine and Liothyronine. Hypertension/HLD/CAD Continue amlodipine, furosemide, losartan, Crestor Asthma Continue montelukast, Xopenex GERD Continue Protonix FEN/GI - No Fluids Code - Full DVT - Pt describes hx of GI bleed-defer chemical prophylaxis. Pt has significant lower extremity cellulitis, defer mechanical prophylaxis. Encourage patient to ambulate as tolerated. Results & Data Vital Signs (Past 12 Hours) Vital Signs Temp Pulse Pulse Pulse Resp BP Pulse Ox 02/28/19 06:28 36.8 C 91 H 20 130/73 94 02/28/19 04:00 36.7 C 91 H 20 114/71 95 02/28/19 00:24 92 H 02/28/19 00:10 36.5 C 96 H 20 110/69 96 02/27/19 20:26 36.7 C 87 16 136/77 95 PG Care Time/CCT Total # of Minutes Spent Total Time Spent with Patient: Total time spent is greater than 50% in coordination of care (as documented) at patient's floor/unit and/or counseling patient: (1) Cellulitis Laterality: unspecified laterality Site of cellulitis: extremity Site of cellulitis of extremity: lower extremity Qualified Code(s): L03.119 - Cellulitis of unspecified part of limb
[2019-02-28] MEDS ORDERED: HUMULIN R U SC STA (11:59)
--- NOTE | 2019-02-28 14:18 | Discharge Summary ---
Date of Service February 28, 2019 Admission HPI Per Admitting Provider 63-year-old female with history of T2DM, HTN, HLD, CAD s/p PCI and stent, Hypothyroidism, GERD presents with bilateral lower extremity redness, swelling and pain. The patient was seen in the emergency room yesterday with the symptoms in the right leg and was diagnosed with cellulitis and was discharged home with oral doxycycline. Patient describes that the left leg became painful and red throughout the course of the day today. She states that the swelling and the pain in her legs is severe enough to make it difficult to walk. The patient is obese and has significant lower extremity edema at baseline. Patient has a history of diabetes with questionable glycemic controlstates that her last A1c was greater than 8.0. The patient amounts her elevated A1c to being on steroids, although she was only on a short burst which she finished 1 week ago. The patient was sick with bronchitis. She currently describes a recent history of worsening respiratory function. Admission Exam Per Admitting Provider Constitutional: well developed, well nourished and + morbidly obese Eyes: PERRL, conjunctivae normal, anicteric sclerae ENMT: external ear and nose normal, oropharynx normal Neck: trachea midline, no thyromegaly Respiratory: normal respiratory effort, lungs clear to auscultation Cardiovascular: RRR, no murmur, no edema Gastrointestinal (Abdomen): normal bowel sounds, soft, nontender, no hepatosplenomegaly Musculoskeletal: no cyanosis or clubbing, extremities motor strength 5/5 Skin: Warmth, erythema extending from bilateral ankles to just below the knee. The skin is taut and painful to touch. Bilateral lower extremity edema. No notable open wounds on bilateral lower extremity. Neurologic: PERRL, EOMI, accommodation nl, no face palsy, no dysarthria Psychiatric: A+Ox3, euthymic affect Principal Diagnosis Lower extremity cellulitis Discharge Exam Constitutional: well developed, well nourished and + morbidly obese Eyes: PERRL, conjunctivae normal, anicteric sclerae ENMT: external ear and nose normal, oropharynx normal Respiratory: normal respiratory effort (On 2L O2); no labored breathing and does not use accessory muscles Auscultation: lungs clear to auscultation bilaterally Cardiovascular: RRR, no murmur, no edema Gastrointestinal (Abdomen): normal bowel sounds, soft, nontender, no hepatosplenomegaly Musculoskeletal: no cyanosis or clubbing, extremities motor strength 5/5 Skin: Cellulitis of the distal LE B/L. Also noted is chronic venous stasis. Neurologic: PERRL, EOMI, accommodation nl, no face palsy, no dysarthria Psychiatric: A+Ox3, euthymic affect Discharge Data Allergies Allergy/AdvReac Type Severity Reaction Status Date / Time shellfish derived Allergy Severe "SEAFOOD" Verified 02/24/19 11:47 -- HIVES and ANAPHLYAXIS sulfite Allergy Severe HIVES AND Verified 02/24/19 11:47 THROAT CLOSES Iodinated Contrast- Oral and Allergy Unknown Unknown Verified 02/26/19 20:43 IV Dye iodine Allergy Unknown Unknown Verified 02/24/19 11:47 Consultations 02/26/19 22:01 ED Decision to Admit Stat 02/26/19 23:55 Consult Case Management - Discharge Planning Routine Hospital Course (1) Cellulitis: 63-year-old female with history of T2DM, HTN, HLD, CAD s/p PCI and stent, Hypothyroidism, GERD presents with bilateral lower extremity redness, swelling and pain. Bilateral lower extremity cellulitis Patient was admitted for bilateral lower extremity cellulitis, initially treated with IV, changed to vancomycin and Zosyn for better Pseudomonas coverage. She was transitioned to oral Augmentin on discharge to complete a 10-day course. Type 2 diabetes, questionable control Per the patient her recent A1c was 8.0, patient is convinced this secondary to steroid treatment for bronchitis. We discussed the insulin regimen with the pharmacy, patient is on U5 100, glycemic consult was placed sugars while she was in the hospital. We had numerous lengthy conversations with this patient regarding blood sugar control with lifestyle management diet and exercise PTCA. The patient was initially not very responsive claiming that the book that she was reading had all the answers. We explained her that the book that she was reading mainly was providing her with a diet that was 40% carbohydrates, and that it is essentially the ADA diet recommendations. The boone to her success is going to be portion control and eliminating simple sugars from her diet. The patient is already made steps towards this as is evidenced by her reduction in insulin usage. I am hopeful that if the patient internalizes the conversations that we had she will make significant improvement in changes. The patient is scheduled to follow-up with Dr. Ibrahim in the outpatient clinic for weight management lifestyle modification, I am happy to assist with her care and management Chronic SOB, ?possible Diastolic HF Patient has been on home Lasix for venous stasis. This is probably not an appropriate choice given the fact that her creatinine continues to rise and she is not having significant benefit or improvement in her venous stasis symptoms. We will DC the Lasix. Given the patient's excellent echo, and lack of significant other signs of overt CHF. I believe the vast majority of her symptoms are related to obesity hypoventilation syndrome. I believe the patient lose significant weight she will be able to come off oxygen and make significant improvements in her lung function. Additionally I believe she will no longer have chronic bronchitis or other pulmonary symptoms. -Continue 2 L of oxygen when discharged -Lifestyle modifications as above Hypothyroidism -Continue home Levothyroxine and Liothyronine. Hypertension/HLD/CAD Continue amlodipine, furosemide, losartan, Crestor Asthma Continue montelukast, Xopenex GERD Continue Protonix FEN/GI - No Fluids Code - Full DVT - Pt describes hx of GI bleed-defer chemical prophylaxis. Pt has significant lower extremity cellulitis, defer mechanical prophylaxis. Encourage patient to ambulate as tolerated. dispo - Home Total Time Total Time Spent Total Time Spent (In Minutes): approx 1 hour 30 minutes Discharge Plan Discharge Items Patient Disposition: Home - Self-Care Reason For Visit: BILATERAL LE CELLULITIS Discharge Diagnosis: Bilateral lower extremity cellulitis Discharge Goals: Therapeutic intervention Activity: Resume your previous activity Non-emergency contact: Primary Care Provider Call non-emergency contact if: you have any medication questions, your symptoms worsen, your pain is not controlled and your temperature is above 101 Follow-up/Referrals: Isaias Ibrahim DO [Resident] - 03/05/19 8:50 am (Please, follow up with Dr. Isaias Ibrahim on SundayMarch 05 at 8:50 am. *Dr. Ibrahim will see you in [facility]. The office is located in [address] of [facility]. This is the big building next to this hospital. If you need to change or cancel this appointment, call the office at [phone].) Diet: Carb Consistent or DM2, Heart Healthy and Low Sodium (2gm) Addtl Provider Instructions: Care instructions: You were admitted to [facility] for treatment of Bilateral lower extremity cellulitis. A discharge summary will be sent to your primary care physician to ensure continuity of care. Please bring this discharge summary with you to your next office appointment so that your provider can review it at that time. #Cellulitis- He received 2 days of IV antibiotics while hospitalized for your bilateral lower extremity cellulitis, you are going to be discharged to complete a 10-day course of Augmentin to finish out the treatment for your cellulitis. Please continue taking Augmentin 1 pill in the morning and 1 pill in the evening for the following 9 days. A prescription has been called into [facility] Some adjustments have been made to your chronic medication regimen. Please discontinue taking Lasix Follow-up appointments: - Keep all your follow-up appointments as already scheduled. If you cannot make an appointment, notify your provider. - Please call to request a follow-up appointment with your primary care kam omer within one week of discharge. Please let us know if you are unable to obtain an appointment Medications: - Your medication list has been reviewed and reconciled upon discharge to ensure accuracy and continuity of care. - You are provided with a list of all your current medications at this time. Please review this list closely and make note of any changes. - Please take all of your medications exactly as prescribed. - Tell your primary care provider if you cannot afford your medications. - Call your primary care provider if you are having any side effects or any other problems. - Call your primary care provider before taking any over the counter medications or supplements, including herbals and vitamins, because some of these may interact with your current medications and/or make your symptoms worse. Symptoms: Please call your primary care provider for symptoms including, but not limited to: fevers (temperatures greater than 100.4), chills, intractable nausea or vomiting, diarrhea, rash, shortness of breath, bleeding, pain, or if you experience any worsening of the symptoms that brought you to the hospital. For EMERGENCY and VERY SERIOUS health-related issues, such as chest pain, shortness of breath, or sudden onset of the symptoms that brought you to the hospital, you may need to call 911 or go directly to the Emergency Room It has been our privilege to take care of you during your hospital stay. And Above All Else Feel Better! Best Wishes, Juan Ramon Simeon MD PGY2 Resident, Family & Community Medicine [facility] Residency at [facility] - [address], [address] : [place] [address] Prescriptions: New amoxicillin-pot clavulanate 875-125 mg Tablet 1 tab PO BIDM 9 Days Qty: 18 RF: 0 Continued fluticasone propionate [24 Hour Allergy Relief] 50 mcg/actuation [place],Suspension 2 spray INTRANASAL DAILY PRN (Reason: Allergy Symptoms) RF: 0 montelukast 10 mg Tablet 10 mg PO QPM RF: 0 losartan 50 mg tablet 50 mg PO QAM RF: 0 levalbuterol tartrate [Xopenex HFA] 45 mcg/actuation Hfa Aerosol Inhaler 2 inh INHALATION Q4H PRN (Reason: Shortness Of Breath Or Wheezing) RF: 0 insulin regular hum U-500 conc 500 unit/mL (3 mL) insulin pen 120 units subcut QPM RF: 0 insulin regular hum U-500 conc 500 unit/mL (3 mL) insulin pen 50 units subcut BID RF: 0 fluticasone propion-salmeterol 250-50 mcg/dose blister with device 1 puff Inhalation BID PRN (Reason: Shortness Of Breath) RF: 0 epinephrine [EpiPen] 0.3 mg/0.3 mL Auto-Injector 0.3 mg IM DIRECTED PRN (Reason: Allergic Reaction) RF: 0 ferrous sulfate 325 mg (65 mg iron) tablet,delayed release (DR/EC) 325 mg PO BID Qty: 60 RF: 0 levothyroxine 88 mcg Tablet 88 mcg PO QAM RF: 0 amlodipine 2.5 mg Tablet 2.5 mg PO QAM RF: 0 levalbuterol HCl 0.63 mg/3 mL solution for nebulization 0.63 mg inhalation DIRECTED PRN (Reason: Shortness Of Breath Or Wheezing) RF: 0 liothyronine 5 mcg tablet 5 mcg PO HS RF: 0 omeprazole 20 mg capsule,delayed release(DR/EC) 20 mg PO QAM RF: 0 rosuvastatin 20 mg tablet 20 mg PO QPM RF: 0 loperamide [Imodium A-D] 2 mg Capsule 2 mg PO DIRECTED PRN (Reason: Diarrhea) RF: 0 Discontinued furosemide 20 mg tablet 20 mg PO QAM RF: 0 Stand-Alone Forms: My [facility] Discharge Orders: Discharge Order (Routine); Ordered 02/28/19 Ordered By: Juan Ramon Simeon Admission Data Admit Date/Time: 02/26/19 22:40 Attending Provider: Denis Geronimo Admit Provider: Nahid Aguila Primary Care Provider: Melissa Camilo Other Providers: Jovon Nixon Service: Telemetry Medical Other Interventions: Discharge Summary Assessment (RN) Last Done: 02/28/19 14:23 DC Date/Time DO NOT enter until pt leaves facility: 02/28/19 15:20 Supervising Physician Co-Signing Physician Notes I personally examined the patient and verified all boone points of history and exam, discussed case, and agree with decision making with Dr Simeon. Feeling better. Legs are little more red, but not hurting as much and no new issues otherwise. Extensive discussion with patient and on disc metabolism, lifestyle change, educating on why the current method is helping her, discussions on venous stasis. They also shared some regular dehydrated zucchini chips which were delicious Vitals noted, in general she is awake and alert pleasant no distress. HEENT normocephalic atraumatic mucous members are moist. Bilateral lower extremities with chronic venous stasis type changes, her shins are slightly more red than pink compared to yesterday, but nontender bilaterally equal, no crepitus no significant tenderness no open lesions, no exudate no fluctuance Lower extremity cellulitisimproved. Stable for home. Finish out course of antibiotics with Augmentin. Elevated creatininelikely related to Lasix. Uncertain if this would ever really be of benefit to her in the outpatient setting given that most of her swelling seems to be venous stasis related. Hold Lasix until follow-up in the office. Basic metabolic panel in the office next week. Type 2 diabetesextensive discussions on lifestyle. See above. She is making good progress on the right direction, but we wanted to ensure that she understood why she was making improvements so that when she grows tired of her current book/rigid plan she understands what it was that was actually helping her. All questions answered to the best my ability. Venous stasiscompression, movement, weight loss Chronic hypoxic respiratory failureseems most consistent with obesity hypoventilation. Discussed how to follow pulse ox is at home, discussed hopeful improvement in oxygenation with ongoing improvement in lifestyle. Stable for home Resident Activity Tracking Resident Involvement: Resident Care Provided Care Provided: Adult Hospital Medicine
[2019-02-28] MEDS ORDERED: AMOXICILLIN/CLAVULANATE 875 MG TAB PO SCH (17:00)
[2019-02-28] MEDS ORDERED: BUDESONIDE 0.5 MG/2 ML VIAL (PULMICORT) NEB SCH (20:00)
== END 2019-02-28 15:20 | disposition home or self-care (01) ==
LOC: ED 19:02 → 2W 19:02 → SUATTDRO 22:40 → 2W 23:44

== ENCOUNTER 2020-04-20 09:56 | Observation (INO) ==
--- NOTE | 2020-04-20 10:19 | Emergency Department Note ---
Impression & Plan Chest pain, Breathlessness ED Provider Note Provider: Orlando Mariscal MD DATE OF SERVICE: 04/20/2020 CHIEF COMPLAINT: Shortness of breath HISTORY OF PRESENT ILLNESS: Patient is a 64-year-old female with a history of restrictive lung disease, type 2 diabetes, hypothyroidism, hypertension, and anemia related to GI bleed presenting here today via private vehicle complaining of worsening shortness of breath. Patient states that she had worsening shortness of breath last several days and feels thirsty. Patient states that she had diarrhea from last through till Sunday stopping 2 days ago. Little bit of nausea at times but denies abdominal pain. States shortness of breath is worse with exertion and did experience some chest discomfort during exertion that improved when she stopped moving. States her pulse ox has been down to the 80s and she was using her BiPAP mask at night and waking with the pulse ox is in the 80s in the morning. Has increased her home oxygen from [place] to up to 3 or 4. Patient denies new significant leg swelling. Patient denies trauma. Some sick exposures with recent ill family members. She denies any fever herself. Patient states her lower extremity swelling and skin changes are chronic. REVIEW OF SYSTEMS: A total of 10 review of systems was obtained and negative except as stated above in the HPI. PAST MEDICAL HISTORY: As noted above MEDICATIONS: Reviewed home medication list, denies blood thinners SOCIAL HISTORY: Lives at home on home oxygen. Nonsmoker PHYSICAL EXAM: GENERAL: alert and oriented in no acute distress on stretcher on nasal cannula oxygen Head: normocephalic and atraumatic EYES: No injection, discharge or icterus. NECK: Trachea midline. Supple. ENT: Mucous membranes pink and moist. LUNGS: Airway patent. No retractions. Breath sounds diminished bilaterally. HEART: Regular rate and rhythm. No chest wall tenderness ABDOMEN: Soft and non-tender, without guarding or rebound. SKIN: Acyanotic, warm, dry, without rashes EXTREMITIES: Lower extremity swelling 3+ on the right 2+ on the left. Left lower leg is in a compression stocking. There is chronic stasis changes here with slight erythema but no weeping appreciated lower extremities. NEUROLOGICAL: No focal deficits. No aphasia. No facial droop or slurred speech. EK bpm sinus tachycardia. No PVC. No acute ST segment elevation or depression. QTC 452. aVL T wave inversion that appears slightly more pronounced compared to prior EKG from February 26, 2019. CONTINUOUS CARDIAC MONITORING: was ordered and showed a heart rate of 104 bpm in sinus tachycardia Patient's hypertension was referred to the hospitalist Patient's laboratory studies and imaging reviewed. Differential includes Reactive airway disease, pneumonia, pneumothorax, COPD, CHF, infections, cardiac ischemia, pulmonary embolism, musculoskeletal, gastrointestinal, as well as other pathologies. IMPRESSION/MEDICAL DECISION MAKING: Patient resents feeling worsening shortness of breath several days of diarrhea and possibly worsened renal function. Patient does have a history of CKD as well as anemia. Basic labs were sent. Benign abdomen here doubt acute intra-abdominal surgical emergency perforation, or cholecystitis. Seems atypical presentation for hepatitis or pancreatitis. Troponin was sent and VBG was obtained. Infectious work-up was pursued including coronavirus testing given her respiratory symptoms. Chest x-ray is obtained. Lactate sent. Blood culture sent. Patient reports her leg swelling is at baseline. Anemia appears similar to baseline. No significant leukocytosis. VBG with a pH of 7.34 and a mildly elevated CO2 of 55. Kidney function appears near baseline. Lactate is elevated at 2.7 initially. Troponin is undetectable. proBNP not elevated. No transaminitis. I doubt acute hepatitis with this. No evidence of acute coronary syndrome at this point. Given some fluid hydration here as well as a nebulized treatment. COVID was negative. Patient's on 3 L and satting 100%. Discussed with patient further observational hospital but she was not too inclined for this. Question there could be a little bit developing cellulitis on the right leg. Not having significant tenderness or change in swelling and lower suspicion for DVT here. Discussed with the patient options and completed albuterol treatment. Attempted to transfer from bed to chair in the room with 1 step and pivot. Patient had onset of shortness of breath and desaturated to 90% on her 3 L of oxygen. Discussed with the patient concerns about her going home like this and her ability to care for self at home. She acknowledged this and was agreeable at this point for further inpatient care. Given a dose of doxycycline and ceftriaxone to cover any respiratory xiang as well as possible cellulitis developing in the right lower extremity. Lactates improved on repeat here with hydration. Pulse ox improved on 3 L as she rests in the chair. Will discuss with the hospitalist for further inpatient care. DIAGNOSIS: Shortness of breath, chest pain, cellulitis right lower extremity DISPOSITION: Hospitalist will evaluate Patient was agreeable with this plan. Past Med/Surg History Medical History (Updated 04/20/20 @ 14:24 by Orlando Mariscal M.D.) Acute respiratory failure with hypoxia CAD S/P percutaneous coronary angioplasty CHF (congestive heart failure) Chronic respiratory failure 1 to 2 L oxygen Diabetes Diverticulitis GERD (gastroesophageal reflux disease) Hypertension Morbid obesity Thyroid cancer Surgical History H/O endoscopy H/O partial thyroidectomy History of colonoscopy History of percutaneous coronary intervention Family History Other No pertinent family history Social History Smoking Status: Never smoker Second Hand Exposure: No; Hx Alcohol Use: No Hx Substance Use: No Preferred Language: [place] Islander 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 Ability: Effective 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 Beliefs That Will Affect Care: Jew Jew Beliefs: Protestant Current Living Situation: Spouse Feels Safe at Home: Yes Assistive Devices: Oxygen - Continuous Allergies Allergies Allergy/AdvReac Type Severity Reaction Status Date / Time shellfish derived Allergy Severe "SEAFOOD" Verified 04/20/20 12:12 -- HIVES and ANAPHLYAXIS sulfite Allergy Severe HIVES AND Verified 04/20/20 12:12 THROAT CLOSES Iodinated Contrast Media Allergy Unknown Unknown Verified 04/20/20 12:12 iodine Allergy Unknown Unknown Verified 04/20/20 12:12 Home Meds Home Medications Medication Instructions Recorded Confirmed fluticasone propionate [24 Hour 2 spray INTRANASAL DAILY PRN 03/25/18 04/20/20 Allergy Relief] levalbuterol tartrate [Xopenex HFA] 2 inh INHALATION Q4H PRN 06/25/18 04/20/20 epinephrine [EpiPen] 0.3 mg IM DIRECTED PRN 08/16/18 04/20/20 insulin regular hum U-500 conc 50 units SUBCUT BID 08/16/18 04/20/20 insulin regular hum U-500 conc 120 units SUBCUT QDD 08/16/18 04/20/20 levothyroxine 88 mcg PO QAM 10/25/18 04/20/20 levalbuterol HCl 0.63 mg INHALATION DIRECTED PRN 02/26/19 04/20/20 liothyronine 5 mcg PO HS 02/26/19 04/20/20 rosuvastatin 20 mg PO HS 02/26/19 04/20/20 Oxygen Home #1 ea 03/14/19 06/02/19 furosemide 20 mg tablet 20 mg PO QAM #30 tab 06/02/19 04/20/20 losartan 100 mg PO QAM 04/20/20 04/20/20 montelukast 10 mg PO HS 04/20/20 04/20/20 Previous Rx's Medication Instructions Recorded fluticasone 250 mcg-salmeterol 50 1 ea INHALATION BID #60 ea 07/19/19 mcg/dose blistr powdr for inhalation Results & Data (ED) Vital Signs Vital Signs - 24 hr 04/20/20 09:58 04/20/20 10:06 04/20/20 10:11 Temperature 37.2 C Temperature Source Oral Pulse Rate 109 H 109 H Pulse Rate [Left Apical] Pulse Rate from SpO2 Sensor 110 H Respiratory Rate 28 H 23 Respiratory Effort / Characteristics Spontaneous Blood Pressure 204/69 H 177/65 H Blood Pressure Mean 114 116 Pulse Oximetry 98 100 Oxygen Delivery Method Nasal Cannula Nasal Cannula Oxygen Flow Rate 3 4 Sepsis Recent Fever Within 48 Hours No Sepsis New/Unexplained Change in Mental Status N/A Sepsis Action Taken by Nursing No Action Required 04/20/20 10:15 04/20/20 10:30 04/20/20 10:45 Temperature Temperature Source Pulse Rate 107 H 105 H 89 Pulse Rate [Left Apical] Pulse Rate from SpO2 Sensor 107 H 106 H Respiratory Rate 26 H 17 26 H Respiratory Effort / Characteristics Blood Pressure 153/70 H Blood Pressure Mean 97 Pulse Oximetry 100 100 Oxygen Delivery Method Nasal Cannula Oxygen Flow Rate 4 Sepsis Recent Fever Within 48 Hours Sepsis New/Unexplained Change in Mental Status Sepsis Action Taken by Nursing 04/20/20 11:00 04/20/20 11:02 04/20/20 11:15 Temperature Temperature Source Pulse Rate 87 87 86 Pulse Rate [Left Apical] Pulse Rate from SpO2 Sensor 87 87 87 Respiratory Rate 19 17 20 Respiratory Effort / Characteristics Blood Pressure Blood Pressure Mean 288 Pulse Oximetry 100 100 100 Oxygen Delivery Method Oxygen Flow Rate Sepsis Recent Fever Within 48 Hours Sepsis New/Unexplained Change in Mental Status Sepsis Action Taken by Nursing 04/20/20 11:30 04/20/20 11:31 04/20/20 11:45 Temperature Temperature Source Pulse Rate 86 86 88 Pulse Rate [Left Apical] Pulse Rate from SpO2 Sensor 86 86 89 Respiratory Rate 17 21 23 Respiratory Effort / Characteristics Blood Pressure Blood Pressure Mean 288 Pulse Oximetry 100 100 100 Oxygen Delivery Method Oxygen Flow Rate Sepsis Recent Fever Within 48 Hours Sepsis New/Unexplained Change in Mental Status Sepsis Action Taken by Nursing 04/20/20 12:00 04/20/20 12:15 04/20/20 12:30 Temperature Temperature Source Pulse Rate 85 85 86 Pulse Rate [Left Apical] Pulse Rate from SpO2 Sensor 86 88 86 Respiratory Rate 23 18 20 Respiratory Effort / Characteristics Blood Pressure Blood Pressure Mean Pulse Oximetry 100 99 100 Oxygen Delivery Method Oxygen Flow Rate Sepsis Recent Fever Within 48 Hours Sepsis New/Unexplained Change in Mental Status Sepsis Action Taken by Nursing 04/20/20 12:33 04/20/20 12:45 04/20/20 12:50 Temperature Temperature Source Pulse Rate 88 85 85 Pulse Rate [Left Apical] Pulse Rate from SpO2 Sensor 88 86 Respiratory Rate 20 17 24 Respiratory Effort / Characteristics Blood Pressure 153/70 H 153/70 H Blood Pressure Mean 94 94 Pulse Oximetry 100 94 Oxygen Delivery Method Oxygen Flow Rate Sepsis Recent Fever Within 48 Hours Sepsis New/Unexplained Change in Mental Status Sepsis Action Taken by Nursing 04/20/20 12:51 04/20/20 13:00 04/20/20 13:01 Temperature Temperature Source Pulse Rate 84 85 Pulse Rate [Left Apical] 86 Pulse Rate from SpO2 Sensor 85 85 Respiratory Rate 16 18 14 Respiratory Effort / Characteristics Non-Labored Spontaneous Blood Pressure 138/55 L Blood Pressure Mean 72 Pulse Oximetry 100 100 100 Oxygen Delivery Method Nasal Cannula Oxygen Flow Rate 3 Sepsis Recent Fever Within 48 Hours Sepsis New/Unexplained Change in Mental Status Sepsis Action Taken by Nursing 04/20/20 13:15 04/20/20 13:30 04/20/20 13:31 Temperature Temperature Source Pulse Rate 90 96 H 95 H Pulse Rate [Left Apical] Pulse Rate from SpO2 Sensor 90 96 H 95 H Respiratory Rate 13 21 20 Respiratory Effort / Characteristics Blood Pressure 156/50 H Blood Pressure Mean 70 Pulse Oximetry 100 100 100 Oxygen Delivery Method Oxygen Flow Rate Sepsis Recent Fever Within 48 Hours Sepsis New/Unexplained Change in Mental Status Sepsis Action Taken by Nursing 04/20/20 13:45 04/20/20 14:00 04/20/20 14:01 Temperature Temperature Source Pulse Rate 98 H 101 H 103 H Pulse Rate [Left Apical] Pulse Rate from SpO2 Sensor 98 H 103 H Respiratory Rate 17 24 14 Respiratory Effort / Characteristics Blood Pressure 140/38 L Blood Pressure Mean 67 Pulse Oximetry 100 90 100 Oxygen Delivery Method Room Air Oxygen Flow Rate Sepsis Recent Fever Within 48 Hours Sepsis New/Unexplained Change in Mental Status Sepsis Action Taken by Nursing 04/20/20 14:15 04/20/20 14:30 04/20/20 14:45 Temperature Temperature Source Pulse Rate 105 H 102 H 100 H Pulse Rate [Left Apical] Pulse Rate from SpO2 Sensor 103 H 106 H Respiratory Rate 18 19 20 Respiratory Effort / Characteristics Blood Pressure Blood Pressure Mean Pulse Oximetry 100 92 Oxygen Delivery Method Oxygen Flow Rate Sepsis Recent Fever Within 48 Hours Sepsis New/Unexplained Change in Mental Status Sepsis Action Taken by Nursing 04/20/20 15:00 Temperature Temperature Source Pulse Rate 100 H Pulse Rate [Left Apical] Pulse Rate from SpO2 Sensor 101 H Respiratory Rate 27 H Respiratory Effort / Characteristics Blood Pressure Blood Pressure Mean Pulse Oximetry 100 Oxygen Delivery Method Oxygen Flow Rate Sepsis Recent Fever Within 48 Hours Sepsis New/Unexplained Change in Mental Status Sepsis Action Taken by Nursing Laboratory Data Result diagrams: 04/20/20 10:58 04/20/20 10:58 Lab Results 04/20/20 04/20/20 04/20/20 Range/Units 10:39 10:39 10:58 WBC (4.8-10.8) K/uL RBC (4.2-5.4) M/uL Hgb (12.0-16.0) g/dL Hct (37-47) % MCV (80-100) fL MCH (25-34) pg MCHC (32-36) g/dL RDW Std Deviation (36.4-46.3) fL RDW Coeff of Cherelle (11.5-14.5) % Plt Count (130-400) K/uL MPV (7.4-10.4) fL Immature Gran % (Auto) % Neut % (Auto) % Lymph % (Auto) % [place] % (Auto) % Eos % (Auto) % Baso % (Auto) % Neut # (Auto) (1.4-6.5) K/uL Lymph # (Auto) (1.2-3.4) K/uL [place] # (Auto) (0.11-0.59) K/uL Eos # (Auto) (0-0.5) K/uL Baso # (Auto) (0-0.2) K/uL Immature Gran # (Auto) (0.00-0.02) K/uL PT (9.0-12.0) Seconds INR (0.9-1.1) APTT (21.0-31.0) Seconds PTT Ratio VBG pH (7.36-7.41) VBG pCO2 (38-50) mmHg VBG pO2 mmHg VBG HCO3 mmol/L VBG O2 Saturation % VBG Base Excess mEq/L Barometric Pressure mm/Hg Sodium 142 (136-145) mmol/L Potassium 3.7 (3.5-5.1) mmol/L Chloride 107 (98-107) mmol/L Carbon Dioxide 29 (21-32) mmol/L Anion Gap 6.0 (3-11) BUN 29 H (7-18) mg/dl Creatinine 1.48 H (0.6-1.2) mg/dl Est Cr Clr Drug Dosing Not Reportable Est GFR ( Amer) 42.9 Est GFR (Non-Af Amer) 37.0 BUN/Creatinine Ratio 19.4 (10-20) Glucose 151 H (70-99) mg/dl Lactate (0.4-2.0) mmol/L Calcium 9.0 (8.5-10.1) mg/dl Magnesium 2.1 (1.8-2.4) mg/dl Total Bilirubin 0.3 (0.2-1) mg/dl AST 15 (15-37) U/L ALT 20 (12-78) U/L Alkaline Phosphatase 95 (45-117) U/L Troponin I < 0.015 (0-0.045) ng/ml NT-Pro-B Natriuret Pep 197 (0-900) pg/ml Total Protein 8.0 (6.4-8.2) gm/dl Albumin 3.0 L (3.4-5.0) gm/dl Globulin 5.0 H (2.5-4.0) gm/dl Albumin/Globulin Ratio 0.6 L (0.9-2) COVID-19 Eval Order Covid19 Done at [facility] COVID-19 PCR NEGATIVE (Negative) Blood Type Antibody Screen 09/04/20/20 04/20/20 Range/Units 10:58 10:58 10:58 WBC 10.59 (4.8-10.8) K/uL RBC 3.51 L (4.2-5.4) M/uL Hgb 9.3 L (12.0-16.0) g/dL Hct 32.1 L (37-47) % MCV 91.5 (80-100) fL MCH 26.5 (25-34) pg MCHC 29.0 L (32-36) g/dL RDW Std Deviation 61.3 H (36.4-46.3) fL RDW Coeff of Cherelle 18.4 H (11.5-14.5) % Plt Count 293 (130-400) K/uL MPV 11.0 H (7.4-10.4) fL Immature Gran % (Auto) 0.5 % Neut % (Auto) 68.6 % Lymph % (Auto) 19.8 % [place] % (Auto) 8.4 % Eos % (Auto) 2.4 % Baso % (Auto) 0.3 % Neut # (Auto) 7.27 H (1.4-6.5) K/uL Lymph # (Auto) 2.10 (1.2-3.4) K/uL [place] # (Auto) 0.89 H (0.11-0.59) K/uL Eos # (Auto) 0.25 (0-0.5) K/uL Baso # (Auto) 0.03 (0-0.2) K/uL Immature Gran # (Auto) 0.05 H (0.00-0.02) K/uL PT 11.4 (9.0-12.0) Seconds INR 1.1 (0.9-1.1) APTT 26.2 (21.0-31.0) Seconds PTT Ratio 0.9 VBG pH (7.36-7.41) VBG pCO2 (38-50) mmHg VBG pO2 mmHg VBG HCO3 mmol/L VBG O2 Saturation % VBG Base Excess mEq/L Barometric Pressure mm/Hg Sodium (136-145) mmol/L Potassium (3.5-5.1) mmol/L Chloride (98-107) mmol/L Carbon Dioxide (21-32) mmol/L Anion Gap (3-11) BUN (7-18) mg/dl Creatinine (0.6-1.2) mg/dl Est Cr Clr Drug Dosing Est GFR ( Amer) Est GFR (Non-Af Amer) BUN/Creatinine Ratio (10-20) Glucose (70-99) mg/dl Lactate 2.7 H* (0.4-2.0) mmol/L Calcium (8.5-10.1) mg/dl Magnesium (1.8-2.4) mg/dl Total Bilirubin (0.2-1) mg/dl AST (15-37) U/L ALT (12-78) U/L Alkaline Phosphatase (45-117) U/L Troponin I (0-0.045) ng/ml NT-Pro-B Natriuret Pep (0-900) pg/ml Total Protein (6.4-8.2) gm/dl Albumin (3.4-5.0) gm/dl Globulin (2.5-4.0) gm/dl Albumin/Globulin Ratio (0.9-2) COVID-19 Eval Order COVID-19 PCR (Negative) Blood Type Antibody Screen 04/20/20 04/20/20 04/20/20 Range/Units 11:22 11:22 13:48 WBC (4.8-10.8) K/uL RBC (4.2-5.4) M/uL Hgb (12.0-16.0) g/dL Hct (37-47) % MCV (80-100) fL MCH (25-34) pg MCHC (32-36) g/dL RDW Std Deviation (36.4-46.3) fL RDW Coeff of Cherelle (11.5-14.5) % Plt Count (130-400) K/uL MPV (7.4-10.4) fL Immature Gran % (Auto) % Neut % (Auto) % Lymph % (Auto) % [place] % (Auto) % Eos % (Auto) % Baso % (Auto) % Neut # (Auto) (1.4-6.5) K/uL Lymph # (Auto) (1.2-3.4) K/uL [place] # (Auto) (0.11-0.59) K/uL Eos # (Auto) (0-0.5) K/uL Baso # (Auto) (0-0.2) K/uL Immature Gran # (Auto) (0.00-0.02) K/uL PT (9.0-12.0) Seconds INR (0.9-1.1) APTT (21.0-31.0) Seconds PTT Ratio VBG pH 7.34 L (7.36-7.41) VBG pCO2 55 H (38-50) mmHg VBG pO2 30 mmHg VBG HCO3 29 mmol/L VBG O2 Saturation < 60.0 % VBG Base Excess 2.2 mEq/L Barometric Pressure 729.3 mm/Hg Sodium (136-145) mmol/L Potassium (3.5-5.1) mmol/L Chloride (98-107) mmol/L Carbon Dioxide (21-32) mmol/L Anion Gap (3-11) BUN (7-18) mg/dl Creatinine (0.6-1.2) mg/dl Est Cr Clr Drug Dosing Est GFR ( Amer) Est GFR (Non-Af Amer) BUN/Creatinine Ratio (10-20) Glucose (70-99) mg/dl Lactate 1.2 (0.4-2.0) mmol/L Calcium (8.5-10.1) mg/dl Magnesium (1.8-2.4) mg/dl Total Bilirubin (0.2-1) mg/dl AST (15-37) U/L ALT (12-78) U/L Alkaline Phosphatase (45-117) U/L Troponin I (0-0.045) ng/ml NT-Pro-B Natriuret Pep (0-900) pg/ml Total Protein (6.4-8.2) gm/dl Albumin (3.4-5.0) gm/dl Globulin (2.5-4.0) gm/dl Albumin/Globulin Ratio (0.9-2) COVID-19 Eval Order COVID-19 PCR (Negative) Blood Type A Positive Antibody Screen NEGATIVE Administered Medications Discontinued Medications Albuterol (Albut/Ipratrop 3mg/0.5mg Neb 3 Ml Vial) 12 ml NEB ONE ONE Stop: 04/20/20 12:29 Last Admin: 04/20/20 12:51 Dose: 12 ml Documented by: [id number] Sodium Chloride (Nss) 500 mls @ 999 mls/hr IV .Q31M ONE Stop: 04/20/20 12:10 Last Infusion: 04/20/20 13:01 Dose: 0 mls/hr Documented by: [id number] Admin: 04/20/20 12:30 Dose: 999 mls/hr Documented by: [id number] Discharge Plan Visit Data Chief Complaint: Shortness of Breath/Dyspnea Stated Complaint: SHORT OF BREATH ED Provider: Orlando Mariscal Discharge Problem: Chest pain, Breathlessness Patient Disposition: Being Evaluated by Hospitalist Forms Stand Alone Forms: [facility] Prescriptions Prescriptions: No Action fluticasone propion-salmeterol 250-50 mcg/dose blister with device 1 ea Inhalation BID Qty: 60 RF: 11 (DME) Oxygen Home Liters Per Minute See Dose Instructions .ROUTE .MEDSUPPLY Qty: 1 RF: 0 furosemide 20 mg tablet 20 mg PO QAM Qty: 30 RF: 0 fluticasone propionate [24 Hour Allergy Relief] 50 mcg/actuation [place],Suspension 2 spray INTRANASAL DAILY PRN (Reason: Allergy Symptoms) RF: 0 levalbuterol tartrate [Xopenex HFA] 45 mcg/actuation Hfa Aerosol Inhaler 2 inh INHALATION Q4H PRN (Reason: Shortness Of Breath Or Wheezing) RF: 0 insulin regular hum U-500 conc 500 unit/mL (3 mL) insulin pen 120 units subcut QDD RF: 0 insulin regular hum U-500 conc 500 unit/mL (3 mL) insulin pen 50 units subcut BID RF: 0 epinephrine [EpiPen] 0.3 mg/0.3 mL Auto-Injector 0.3 mg IM DIRECTED PRN (Reason: Allergic Reaction) RF: 0 levothyroxine 88 mcg Tablet 88 mcg PO QAM RF: 0 levalbuterol HCl 0.63 mg/3 mL solution for nebulization 0.63 mg inhalation DIRECTED PRN (Reason: Shortness Of Breath Or Wheezing) RF: 0 liothyronine 5 mcg tablet 5 mcg PO HS RF: 0 rosuvastatin 20 mg tablet 20 mg PO HS RF: 0 montelukast 10 mg tablet 10 mg PO HS RF: 0 losartan 100 mg tablet 100 mg PO QAM RF: 0 Referrals Referrals: Aiyana Asencio MD [Primary Care Provider] - Discharge Problem: Chest pain Qualifiers: Chest pain type: unspecified Qualified Code(s): R07.9 - Chest pain, unspecified
[2020-04-20 11:12] LABS: Basophils # (auto) 0.03 K/uL (0-0.2); Basophils % (auto) 0.3 %; Eosinophils # (auto) 0.25 K/uL (0-0.5); Eosinophils % (auto) 2.4 %; Hematocrit (blood only) 32.1 % (37-47); Hemoglobin 9.3 g/dL (12.0-16.0); Immature Granulocytes # (auto) 0.05 K/uL (0.00-0.02); Immature Granulocytes % (auto) 0.5 %; Lymphocytes % (auto) 19.8 %; Mean Corpuscular Hemoglobin 26.5 pg (25-34); Mean Corpuscular Volume 91.5 fL (80-100); Monocytes # (auto) 0.89 K/uL (0.11-0.59); Monocytes % (auto) 8.4 %; Neutrophils # (auto) 7.27 K/uL (1.4-6.5); Neutrophils % (auto) 68.6 %; Platelet Count 293 K/uL (130-400); RDW Coefficient of Variation 18.4 % (11.5-14.5); RDW Standard Deviation 61.3 fL (36.4-46.3); Red Blood Count 3.51 M/uL (4.2-5.4); White Blood Count 10.59 K/uL (4.8-10.8)
[2020-04-20 11:22] LABS: INR 1.1 (0.9-1.1); Partial Thromboplastin Ratio 0.9; Partial Thromboplastin Time 26.2 Seconds (21.0-31.0); Prothrombin Time 11.4 Seconds (9.0-12.0)
[2020-04-20 11:28] LABS: Alanine Aminotransferase 20 U/L (12-78); Aspartate Aminotransferase 15 U/L (15-37); BUN Creatinine Ratio 19.4 (10-20); Blood Urea Nitrogen 29 mg/dl (7-18); Carbon Dioxide 29 mmol/L (21-32); Chloride 107 mmol/L (98-107); Est GFR (African American) 42.9; Glucose 151 mg/dl (70-99); Magnesium 2.1 mg/dl (1.8-2.4); Potassium 3.7 mmol/L (3.5-5.1); Sodium 142 mmol/L (136-145)
[2020-04-20 11:33] LABS: Albumin Globulin Ratio 0.6 (0.9-2); Alkaline Phosphatase 95 U/L (45-117); Bilirubin,Total 0.3 mg/dl (0.2-1); NT Pro B Type Natriuretic Pept 197 pg/ml (0-900); Troponin I < 0.015 ng/ml (0-0.045)
[2020-04-20 11:39] LABS: Base Excess VBG 2.2 mEq/L; HCO3 VBG 29 mmol/L; Oxygen Saturation VBG < 60.0 %; PCO2 VBG 55 mmHg (38-50); PO2 VBG 30 mmHg; pH VBG 7.34 (7.36-7.41)
[2020-04-20] MEDS ORDERED: SODIUM CHLORIDE 0.9% 500 ML IV ONE (11:40)
--- NOTE | 2020-04-20 11:52 | XRay Report ---
XR chest 1V portable CLINICAL HISTORY: Dyspnea COMPARISON STUDY: Chest CT February 24, 2019. Chest radiograph February 26, 2019. FINDINGS: No pneumothorax or pleural effusion is noted. Lung volumes are normal. Cardiomegaly is unch anged. Interstitial thickening is unchanged. No consolidation is identified. The appearance of the ch est is unchanged. IMPRESSION: No change in appearance of the chest. Stable interstitial prominence which favors pulmon uvaldo vascular congestion. ACT 112: Negative or not required by law. Electronically signed by: Mack Soto M.D. 04/20/2020 11:51 AM
[2020-04-20] MEDS ORDERED: ALBUT/IPRATROP 3MG/0.5MG NEB 3 ML VIAL NEB ONE (12:28)
[2020-04-20] MEDS ORDERED: cefTRIAXone SODIUM 2,000 MG/70 ML BAG IV STA (14:12)
[2020-04-20] MEDS ORDERED: DOXYCYCLINE HYCLATE 100 MG CAP PO STA (14:12)
--- NOTE | 2020-04-20 16:37 | History & Physical Report ---
Date of Service April 20, 2020 Assessment & Plan (1) SOB (shortness of breath): admit obs med tele With chest pain with exertion - Troponin initially negative, no changes in EKG from previous - NSR. Continue to trend troponin. Chest pain complaints have been ongoing per outpatient notes for at least a month Doppler lower extremities - patient is allergic to dye. With her restrictive lung disease and body habitus VQ scan is unlikely to be revealing CXR without acute changes COVID negative, will check flu PCR Continue home inhalers CBC, PRP am (2) Coronary artery disease: With history of stent to the OM. Continue home statin, losartan. Not on ASA due to recent GI bleed (3) CKD (chronic kidney disease): Stable - creatinine 1.48 which appears to be at patient's baseline Avoid nephrotoxins where possible (4) Cellulitis: Right lower extremity Continue doxycycline started in ED. Lasix was discontinued after February admission as it is not generally very effective for lymphedema. Would recommend this stays off of patient med list given her kidney function. (5) Hypothyroidism: Continue levothyroxine (6) Hypertension: Continue losartan (7) Anemia: Of chronic disease, history of recent GI bleed Sees Dr. Bear from hematology Hgb 9.3 which is near baseline (8) Diarrhea: Check C.diff (9) Chronic respiratory failure: due to restrictive lung disease as above Continue home inhalers Wears 3L at home (10) DVT prophylaxis: Given lymphedema, no SCDS. Per records, anemia is being attributed at least partly to GI bleed so will hold off on chemoprophylaxis. History of Present Illness Primary Care Provider: Aiyana Asencio MD Ms. Molina presents today due to persistent sob which started 04/05. She has had diarrhea as well, no nausea or vomiting, normal appetite. She has had chills but no fevers. Her nose has been congested and runny, no loss of taste or smell. Some productive cough. She found that her oxygen saturations were dropping at home. She normally wears 3L. She has also had chest pain with palpitations. The pain comes on with exertion and starts in her upper back and then wraps to her chest. It is relieved with sitting. EKG here does shows SR without ST changes, troponin was negative. She has also had some redness and swelling of her right leg which has lymphedema at baseline. She feels very dehydrated with decrease in urine output, no dysuria. Allergies Allergy/AdvReac Type Severity Reaction Status Date / Time shellfish derived Allergy Severe "SEAFOOD" Verified 04/20/20 12:12 -- HIVES and ANAPHLYAXIS sulfite Allergy Severe HIVES AND Verified 04/20/20 12:12 THROAT CLOSES Iodinated Contrast Media Allergy Unknown Unknown Verified 04/20/20 12:12 iodine Allergy Unknown Unknown Verified 04/20/20 12:12 Home Medications Home Medications Medication Instructions Recorded Confirmed Type fluticasone propionate [24 Hour 2 spray INTRANASAL DAILY PRN 03/25/18 04/20/20 History Allergy Relief] levalbuterol tartrate [Xopenex HFA] 2 inh INHALATION Q4H PRN 06/25/18 04/20/20 History epinephrine [EpiPen] 0.3 mg IM DIRECTED PRN 08/16/18 04/20/20 History insulin regular hum U-500 conc 50 units SUBCUT BID 08/16/18 04/20/20 History insulin regular hum U-500 conc 120 units SUBCUT QDD 08/16/18 04/20/20 History levothyroxine 88 mcg PO QAM 10/25/18 04/20/20 History levalbuterol HCl 0.63 mg INHALATION DIRECTED PRN 02/26/19 04/20/20 History liothyronine 5 mcg PO HS 02/26/19 04/20/20 History rosuvastatin 20 mg PO HS 02/26/19 04/20/20 History Oxygen Home #1 ea 03/14/19 06/02/19 History furosemide 20 mg tablet 20 mg PO QAM #30 tab 06/02/19 04/20/20 History fluticasone 250 mcg-salmeterol 50 1 ea INHALATION BID #60 ea 07/19/19 04/20/20 Rx mcg/dose blistr powdr for inhalation losartan 100 mg PO QAM 04/20/20 04/20/20 History montelukast 10 mg PO HS 04/20/20 04/20/20 History amlodipine [Norvasc] 2.5 mg PO DAILY #30 tab 04/24/20 Rx doxycycline hyclate 100 mg PO Q12H #6 cap 04/24/20 Rx Past Med/Surg History Medical History (Updated 04/25/20 @ 00:03 by Jose Martinze) Acute respiratory failure with hypoxia Breathlessness CAD S/P percutaneous coronary angioplasty CHF (congestive heart failure) Chronic respiratory failure 1 to 2 L oxygen Diabetes Diverticulitis GERD (gastroesophageal reflux disease) Hypertension Morbid obesity Thyroid cancer Surgical History H/O endoscopy H/O partial thyroidectomy History of colonoscopy History of percutaneous coronary intervention Family History Other Diabetes Heart disease No pertinent family history Social History Smoking Status: Never smoker Second Hand Exposure: No; Hx Alcohol Use: No Hx Substance Use: No Preferred Language: Luxembourgish 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 Ability: Effective Load Dropper Required: No Beliefs That Will Affect Care: None Current Living Situation: Spouse Feels Safe at Home: Yes Assistive Devices: Walker Review of Systems Review of Systems: All systems reviewed & are unremarkable except as noted in HPI & below Physical Exam Physical Exam: General: no distress Eyes: normal inspection, PERLL Respiratory: chest non tender, clear to auscultation, normal breath sounds, no respiratory distress, no accessory muscle use Cardiac: regular rate and rhythm, no rub or gallop, no murmur, lymphedema right lower extremity, no jvd GI/: active bowel sounds, no abd pain or tenderness, soft, non distended Extremities: normal range of motion, normal strength, non tender Neuro/Psych: alert and oriented x 3, normal mood and affect Skin: normal color, dry, erythema right lower extremity Results & Data Results & Data ([facility]) Vital Signs (Past 12 Hours) Vital Signs Temp Pulse Pulse Resp BP Pulse Ox 04/20/20 16:01 101 H 18 131/97 100 04/20/20 16:00 100 H 20 100 04/20/20 15:45 98 H 25 H 100 04/20/20 15:34 101 H 25 H 160/69 H 04/20/20 15:33 101 H 27 H 04/20/20 15:30 99 H 21 100 04/20/20 15:15 103 H 13 98 04/20/20 15:00 100 H 27 H 100 04/20/20 14:45 100 H 20 92 04/20/20 14:30 102 H 19 100 04/20/20 14:15 105 H 18 04/20/20 14:01 103 H 14 140/38 L 100 04/20/20 14:00 101 H 24 90 04/20/20 13:45 98 H 17 100 04/20/20 13:31 95 H 20 156/50 H 100 04/20/20 13:30 96 H 21 100 04/20/20 13:15 90 13 04/20/20 13:01 85 14 138/55 L 04/20/20 13:00 84 18 100 04/20/20 12:51 86 16 100 04/20/20 12:50 85 24 153/70 H 04/20/20 12:45 85 17 94 04/20/20 12:33 88 20 153/70 H 100 04/20/20 12:30 86 20 04/20/20 12:15 85 18 99 04/20/20 12:00 85 23 100 04/20/20 11:45 88 23 04/20/20 11:31 86 21 04/20/20 11:30 86 17 100 04/20/20 11:15 86 20 100 04/20/20 11:02 87 17 100 04/20/20 11:00 87 19 100 04/20/20 10:45 89 26 H 153/70 H 04/20/20 10:30 105 H 17 100 04/20/20 10:15 107 H 26 H 100 04/20/20 10:11 109 H 23 177/65 H 100 04/20/20 09:58 37.2 C 109 H 28 H 204/69 H 98 Code Status & VTE Plan VTE Prophylaxis Plan VTE Prophylaxis will be ordered: Yes Supervising Physician Co-Signing Physician Notes Patient seen and examined with Shelley CHAVEZ. I agree with her exam findings, review of systems, assessment and plan. I personally reviewed the lab work and imaging as well. 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 Rodríguez if we need assistance - chronic lymphedema - pulmonary hypertension PG Care Time/CCT Total # of Minutes Spent Total Time Spent with Patient: Total time spent is greater than 50% in coordination of care (as documented) at patient's floor/unit and/or counseling patient: Coding Level of Care Code 18234 Initial Inpt Care Lvl 3 Diagnoses SOB (shortness of breath) R06.02 Coronary artery disease I25.10 CKD (chronic kidney disease) N18.9 Cellulitis L03.119 Laterality: unspecified laterality Site of cellulitis: extremity Site of cellulitis of extremity: lower extremity Hypothyroidism E03.9 Hypertension I10 Anemia D64.9 Anemia type: unspecified type Diarrhea R19.7 Chronic respiratory failure J96.10 DVT prophylaxis Z29.9 (1) Anemia Anemia type: unspecified type Qualified Code(s): D64.9 - Anemia, unspecified (2) Cellulitis Laterality: unspecified laterality Site of cellulitis: extremity Site of cellulitis of extremity: lower extremity Qualified Code(s): L03.119 - Cellulitis of unspecified part of limb
[2020-04-20] MEDS ORDERED: FLUTICASONE PROPIONATE NA SPR 16 GM BTL PRN (18:32)
[2020-04-20] MEDS ORDERED: LEVALBUTEROL HCL 0.63 MG/3 ML NEB INH PRN (18:32)
[2020-04-20] MEDS ORDERED: ACETAMINOPHEN 325 MG TAB PO PRN (18:32)
[2020-04-20] MEDS ORDERED: INSULIN REGULAR HUM U SQ SCH ×2 (18:32→21:00)
[2020-04-20] MEDS ORDERED: LEVALBUTEROL TARTRATE 15 GM HFA.AER.AD INH PRN (18:32)
[2020-04-20 18:34] LABS: Influenza A virus by PCR Neg for Influ A (Neg); Influenza B virus by PCR Neg for Influ B (Neg)
[2020-04-20] MEDS ORDERED: PHARMACY GLYCEMIC MGMT CONSULT PRN (20:01)
[2020-04-20] MEDS: DOXYCYCLINE HYCLATE 100 MG in DEXTROSE 5% 100 ML IV SCH (21:11)
[2020-04-20] MEDS: INSULIN ASPART 100 UNITS/ML 3 ML PEN SC SCH (21:25)
[2020-04-20] MEDS: FLUTICASONE/VILANTEROL 100/25MCG 14 PUFFS/INHALER INH SCH (21:26)
[2020-04-20] MEDS: LIOTHYRONINE SODIUM 5 MCG TAB PO SCH (21:26)
[2020-04-20] MEDS: MONTELUKAST SODIUM 10 MG TABLET PO SCH (21:27)
[2020-04-20] MEDS ORDERED: GLUCAGON FOR INJ 1 MG VIAL SQ PRN (21:30)
[2020-04-20] MEDS ORDERED: GLUCOSE 40% GEL 15 GM TUBE PO PRN (21:30)
[2020-04-20] MEDS ORDERED: DEXTROSE 50% 50 ML SYRINGE IV PRN (21:30)
[2020-04-20] MEDS ORDERED: GLUCOSE 10 TABS/TUBE PO PRN (21:30)
[2020-04-20] MEDS: ROSUVASTATIN CALCIUM 20 MG TAB PO SCH (21:53)
[2020-04-21] MEDS ORDERED: INSULIN ASPART 100 UNITS/ML 3 ML PEN SC SCH
--- NOTE | 2020-04-21 05:59 | Electrocardiogram Report ---
Test Reason : Blood Pressure : / mmHG Vent. Rate : 110 BPM Atrial Rate : 110 BPM P-R Int : 168 ms QRS Dur : 092 ms QT Int : 334 ms P-R-T Axes : 000 009 076 degrees QTc Int : 452 ms Sinus tachycardia Possible Anterior infarct , age undetermined Abnormal ECG When compared with ECG of 26-FEB-2019 19:58, No significant change was found Confirmed by Charles Sommers ([id number]) on 04/21/2020 5:58:42 AM Referred By: SELF Confirmed By:Charles Sommers
[2020-04-21] MEDS: LEVOTHYROXINE SODIUM 88 MCG TABLET PO SCH (06:01)
[2020-04-21 07:39] LABS: Hemoglobin 9.3 g/dL (12.0-16.0); Mean Corpuscular Volume 90.4 fL (80-100); Mean Platelet Volume 10.1 fL (7.4-10.4); Platelet Count 260 K/uL (130-400); RDW Coefficient of Variation 18.4 % (11.5-14.5); RDW Standard Deviation 60.7 fL (36.4-46.3); Red Blood Count 3.32 M/uL (4.2-5.4); White Blood Count 10.25 K/uL (4.8-10.8)
[2020-04-21 08:12] LABS: BUN Creatinine Ratio 18.3 (10-20); Calcium 10.1 mg/dl (8.5-10.1); Creatinine Clr Calc Pharmacy 52.9 ml/min; Est GFR (African American) 40.6; Potassium 3.8 mmol/L (3.5-5.1)
[2020-04-21] MEDS: LOSARTAN POTASSIUM 50 MG TAB PO SCH (08:46)
[2020-04-21] MEDS: INSULIN ASPART 100 UNITS/ML 3 ML PEN SC SCH ×4 (08:48→20:56)
[2020-04-21] MEDS: DOXYCYCLINE HYCLATE 100 MG in DEXTROSE 5% 100 ML IV SCH ×2 (10:36→21:00)
--- NOTE | 2020-04-21 13:39 | Hospitalist Progress Note ---
Date of Service April 21, 2020 Assessment & Plan (1) SOB (shortness of breath): With chest pain with exertion, sob improving today Troponin negative x 3, no changes in EKG from previous - NSR. Patient refused lower extremity doppler - had this done recently and does not feel it would be beneficial to perform again - patient is allergic to dye. With her restrictive lung disease and body habitus VQ scan is unlikely to be revealing. She is not tachycardic, maintaining O2 sats CXR without acute changes COVID negative, negative flu PCR Continue home inhalers NM Lexiscan study tomorrow morning (2) Chest pain: As above (3) Coronary artery disease: With history of stent to the OM 2018 Continue home statin, losartan. Not on ASA or Plavix due to recent GI bleed and ongoing anemia requiring transfusions outpatient (4) CKD (chronic kidney disease): Stable - creatinine 1.55 which appears to be at patient's baseline Avoid nephrotoxins where possible (5) Cellulitis: Right lower extremity - improving Continue doxycycline Lasix was discontinued after February admission as it is not generally very effective for lymphedema. Would recommend this stays off of patient med list given her kidney function. (6) Hypothyroidism: Continue levothyroxine (7) Hypertension: Continue losartan (8) Anemia: Of chronic disease and blood loss with likely chronic GI bleeding Sees Dr. Bear from hematology Hgb 9.3 which is near baseline, requiring outpatient blood transfusions (9) Diarrhea: Check C.diff (10) Chronic respiratory failure: due to restrictive lung disease as above Continue home inhalers Wears 3L at home (11) DVT prophylaxis: Given lymphedema, no SCDS. Per records, anemia is being attributed at least partly to GI bleed so will hold off on chemoprophylaxis. Admission and Anticipated Discharge Date Admission Date: April 20, 2020 Subjective Ms. Molina is less sob today but continues to have exertional chest pain that starts in her upper back and wraps around to her central chest. She reports that it feels similar to angina she was experiencing before her stent was placed 2 years ago. She continues to have loose stools ROS Constitutional: no chills, aches, sweats or fever Respiratory: no cough, sputum, or wheezing Cardiac: no palpitations, edema, orthopnea or lightheadedness GI: no abdominal pain, nausea, vomiting, : no dysuria or hesitancy Extremities: no joint pain or weakness Skin: no rash All other systems reviewed and negative Physical Exam Physical Exam: General: no distress Eyes: normal inspection, PERLL Respiratory: chest non tender, clear to auscultation, normal breath sounds, no respiratory distress, no accessory muscle use Cardiac: regular rate and rhythm, no rub or gallop, no murmur, no edema, no jvd GI/: active bowel sounds, no abd pain or tenderness, soft, non distended Extremities: normal range of motion, normal strength, non tender Neuro/Psych: alert and oriented x 3, normal mood and affect Skin: normal color, dry Results & Data Results & Data ([facility]) Vital Signs (Past 12 Hours) Vital Signs Temp Pulse Pulse Resp BP Pulse Ox 04/21/20 11:52 36.8 C 82 16 154/72 H 92 04/21/20 09:40 36.7 C 93 H 20 155/78 H 99 04/21/20 07:20 36.5 C 84 18 138/64 96 04/21/20 07:13 78 04/21/20 04:48 87 04/21/20 04:00 36.6 C 86 18 121/61 95 PG Care Time/CCT Total # of Minutes Spent Total Time Spent with Patient: Total time spent is greater than 50% in coordination of care (as documented) at patient's floor/unit and/or counseling patient: Coding Level of Care Code 66036 Subseq Hosp Care Lvl 3 Diagnoses SOB (shortness of breath) R06.02 Chest pain R07.9 Coronary artery disease I25.10 CKD (chronic kidney disease) N18.9 Cellulitis L03.119 Laterality: unspecified laterality Site of cellulitis: extremity Site of cellulitis of extremity: lower extremity Hypothyroidism E03.9 Hypertension I10 Anemia D64.9 Anemia type: unspecified type Diarrhea R19.7 Chronic respiratory failure J96.10 DVT prophylaxis Z29.9 (1) Cellulitis Laterality: unspecified laterality Site of cellulitis: extremity Site of cellulitis of extremity: lower extremity Qualified Code(s): L03.119 - Cellulitis of unspecified part of limb (2) Anemia Anemia type: unspecified type Qualified Code(s): D64.9 - Anemia, unspecified
--- NOTE | 2020-04-21 14:00 | Pharmacy Report ---
Pharmacy Glycemic Short Note 2 - Date of Service April 21, 2020 - Glycemic Short BSG Results (Last 24 hours): 04/20/20 04/20/20 04/20/20 15:34 21:14 21:16 Glucose POC Glucose 283 H 405 H* 406 H* 04/21/20 04/21/20 04/21/20 00:03 04:09 07:23 Glucose 74 POC Glucose 326 H* 120 H 04/21/20 11:55 Glucose POC Glucose 146 H OUTPATIENT ANTIDIABETIC REGIMEN: * U-500 : 50+50+120 units TIDM ASSESSMENT: 04/21: * Patient admitted with shortness of breath/cellulitis * Had received 25 units of U-500 yesterday AM, then 100 units last evening * Prior admissions indicate 50 units TIDM appropriate for dosing. Patient prefers to stay with U-500 insulin rather than NPH. PLAN FOR INPATIENT GLYCEMIC CONTROL: * Hold outpatient oral diabetes medications * Basal insulin * U-500 - 50 units TIDM * Bolus insulin * NovoLog per scale ACHS or Q6hrs while NPO * Goal Range: Low 110 mg/dL - High 140 mg/dL * Correction Factor: 20 mg/dL/unit * Nutritional / Prandial insulin per carb ratio of 1 unit per -- grams CHO consumed PLAN FOR DISCHARGE: * tbd
[2020-04-21] MEDS: traMADol HCL 50 MG TABLET PO PRN (14:01)
[2020-04-21] MEDS: FLUTICASONE/VILANTEROL 100/25MCG 14 PUFFS/INHALER INH SCH (20:53)
[2020-04-21] MEDS: LIOTHYRONINE SODIUM 5 MCG TAB PO SCH (20:56)
[2020-04-21] MEDS: MONTELUKAST SODIUM 10 MG TABLET PO SCH (20:56)
[2020-04-21] MEDS: ROSUVASTATIN CALCIUM 20 MG TAB PO SCH (20:56)
--- NOTE | 2020-04-22 05:53 | Electrocardiogram Report ---
Test Reason : Blood Pressure : / mmHG Vent. Rate : 086 BPM Atrial Rate : 086 BPM P-R Int : 178 ms QRS Dur : 094 ms QT Int : 370 ms P-R-T Axes : 044 017 057 degrees QTc Int : 442 ms Normal sinus rhythm Normal ECG When compared with ECG of 20-APR-2020 10:11, No significant change was found Confirmed by Charles Sommers ([id number]) on 04/22/2020 5:52:36 AM Referred By: Melissa Camilo Confirmed By:Charles Sommers
[2020-04-22] MEDS: LEVOTHYROXINE SODIUM 88 MCG TABLET PO SCH (06:09)
[2020-04-22 06:35] LABS: Hemoglobin 8.2 g/dL (12.0-16.0); Mean Corpuscular Hemoglobin 27.2 pg (25-34); Mean Corpuscular Hgb Conc 30.4 g/dL (32-36); Mean Corpuscular Volume 89.7 fL (80-100); Mean Platelet Volume 10.3 fL (7.4-10.4); Platelet Count 241 K/uL (130-400); RDW Coefficient of Variation 18.4 % (11.5-14.5); RDW Standard Deviation 60.4 fL (36.4-46.3); Red Blood Count 3.01 M/uL (4.2-5.4); White Blood Count 9.97 K/uL (4.8-10.8)
[2020-04-22 07:05] LABS: BUN Creatinine Ratio 20.3 (10-20); Calcium 9.7 mg/dl (8.5-10.1); Est GFR (African American) 41.6; Est GFR (Non-African American) 35.9; Potassium 3.9 mmol/L (3.5-5.1)
[2020-04-22] MEDS ORDERED: HumuLIN-R U-500 35 UNITS in SYRINGE 0 ML SC ONE (08:30)
[2020-04-22 09:02] LABS: Estimated Average Glucose 206 mg/dl; Hemoglobin A1C 8.8 % (4.5-5.6)
[2020-04-22] MEDS: LOSARTAN POTASSIUM 50 MG TAB PO SCH (09:10)
[2020-04-22] MEDS: INSULIN ASPART 100 UNITS/ML 3 ML PEN SC SCH ×4 (09:14→20:56)
[2020-04-22] MEDS: traMADol HCL 50 MG TABLET PO PRN ×2 (09:28→15:54)
[2020-04-22] MEDS: DOXYCYCLINE HYCLATE 100 MG in DEXTROSE 5% 100 ML IV SCH ×2 (10:02→22:22)
[2020-04-22] MEDS ORDERED: ALBUT/IPRATROP 3MG/0.5MG NEB 3 ML VIAL NEB PRN (11:31)
[2020-04-22] MEDS: FUROSEMIDE 20 MG TAB PO SCH (12:32)
--- NOTE | 2020-04-22 13:32 | Pharmacy Report ---
Pharmacy Glycemic Short Note 2 - Date of Service April 22, 2020 - Glycemic Short BSG Results (Last 24 hours): 04/21/20 04/21/20 04/21/20 07:33 16:36 20:18 Glucose POC Glucose 78 148 H 142 H 04/22/20 04/22/20 04/22/20 06:03 07:29 11:48 Glucose 142 H POC Glucose 196 H 207 H OUTPATIENT ANTIDIABETIC REGIMEN: * U-500 : 50+50+120 units TIDM ASSESSMENT: 04/22: * Patient received 150 units of U-500 yesterday, plus 2 units of correctional. BSGs well controlled <150 * Fasting BSG 142 mg/dL, then on recheck 196 mg/dL - patient NPO for stress test / reduced U-500 dose by ~30% * Lunch time BSG remains unchanged at 207 mg/dL, will tighten CF (used similar parameter from other admissions) * Diet starting again with lunch, resume U-500 - 50 units TIDM 04/21: * Patient admitted with shortness of breath/cellulitis * Had received 25 units of U-500 yesterday AM, then 100 units last evening * Prior admissions indicate 50 units TIDM appropriate for dosing. Patient prefe rs to stay with U-500 insulin rather than NPH. PLAN FOR INPATIENT GLYCEMIC CONTROL: * Hold outpatient oral diabetes medications * Basal insulin * U-500 - 50 units TIDM * Bolus insulin * NovoLog per scale ACHS or Q6hrs while NPO * Goal Range: Low 110 mg/dL - High 140 mg/dL * Correction Factor: 12 mg/dL/unit * Nutritional / Prandial insulin per carb ratio of 1 unit per -- grams CHO consumed PLAN FOR DISCHARGE: * A1c of 8.8% on admission * DM educator met with patient. Patient reports recent weight gain/changes with medications and has been trying to loose weight. This A1C is a decrease from 9.2% 02/2019. Patient working to improve healthy lifestyle (diet, exercise, etc) * Would recommend continuation of home insulin at discharge, as long as there are no contraindications. Patient follows outpatient Endo, would defer adjustments to Endo provider
--- NOTE | 2020-04-22 15:48 | Hospitalist Progress Note ---
Date of Service April 22, 2020 Assessment & Plan (1) SOB (shortness of breath): With chest pain with exertion, sob improving today Troponin negative x 3, no changes in EKG from previous - NSR. Patient refused lower extremity doppler - had this done recently and does not feel it would be beneficial to perform again - patient is allergic to dye. With her restrictive lung disease and body habitus VQ scan is unlikely to be revealing. She is not tachycardic, maintaining O2 sats CXR without acute changes COVID negative, negative flu PCR Continue home inhalers Patient was unable to tolerate NM Lexiscan study today, becoming hypoxic when laying flat. It would be difficult to obtain an accurate dobutamine stress echo given body habitus. As discussed above, patient did poorly with catheterization. She is in a difficult situation going forward with her respiratory situation, morbid obesity, chronic kidney disease and cardiac history. Additionally, her chest pain complaints are not new to this admission and have been ongoing for some time per patient and per outpatient notes. Discussed her case with cardiology who agreed on holding off on further cardiac workup. Patient's last echo showed significant pulmonary hypertension which in and of itself may be causing chest pain. Will treat medically at this time and will initiate Imdur 30 mg and titrate up from there as long as patient is not having increased hypoxia. (2) Chest pain: As above (3) Coronary artery disease: With history of stent to the OM 2018 Continue home statin, losartan. Not on ASA or Plavix due to recent GI bleed and ongoing anemia requiring transfusions outpatient (4) CKD (chronic kidney disease): Stable - creatinine 1.55 which appears to be at patient's baseline Avoid nephrotoxins where possible (5) Cellulitis: Right lower extremity - improving Continue doxycycline Resumed patient's home Lasix. I did discuss discontinuing this medication with her given her kidney function but she really feels that it gives her relief from her lower extremity edema so will resume as kidney function is about at her baseline. She had a similar discussion with her pcp and it was decided to resume her furosemide. She can revisit this at her next office visit assuming her kidney function remains stable (6) Hypothyroidism: Continue levothyroxine (7) Hypertension: Continue losartan (8) Anemia: Of chronic disease and blood loss with likely chronic GI bleeding Sees Dr. Bear from hematology Hgb slightly lower today at 8.2. Baseline is around 9 - 11. She requires outpatient blood transfusions. If her hgb lower am hgb may require transfusion. At present she is not having s/s of bleeding. (9) Diarrhea: Check C.diff (10) Chronic respiratory failure: due to restrictive lung disease as above Continue home inhalers Wears 3L at home and is at baseline here (11) DVT prophylaxis: Given lymphedema, no SCDS. Per records, anemia is being attributed at least partly to GI bleed so will hold off on chemoprophylaxis. Admission and Anticipated Discharge Date Admission Date: April 20, 2020 Subjective Ms. Molina's sob is better today. She continues to have exertion chest pain/pressure. Attempted NM Lexiscan study today but she was unable to tolerate it and became very sob. This afternoon she is feeling better as far as her breathing. Right leg erythema is resolved ROS Constitutional: no chills, aches, sweats or fever Respiratory: no cough, sputum, or wheezing Cardiac: no palpitations, edema, orthopnea or lightheadedness GI: no abdominal pain, nausea, vomiting, : no dysuria or hesitancy Extremities: no joint pain or weakness Skin: no rash All other systems reviewed and negative Physical Exam Physical Exam: General: no distress Eyes: normal inspection, PERLL Respiratory: chest non tender, clear to auscultation, normal breath sounds, no respiratory distress, no accessory muscle use Cardiac: regular rate and rhythm, no rub or gallop, no murmur, no edema, no jvd GI/: active bowel sounds, no abd pain or tenderness, soft, non distended Extremities: normal range of motion, normal strength, non tender Neuro/Psych: alert and oriented x 3, normal mood and affect Skin: normal color, dry Results & Data Results & Data ([facility]) Vital Signs (Past 12 Hours) Vital Signs Temp Pulse Pulse Resp BP BP Pulse Ox 04/22/20 15:00 36.5 C 64 20 118/50 L 97 04/22/20 12:00 36.8 C 86 20 136/71 95 04/22/20 08:00 36.6 C 83 20 100/56 L 95 04/22/20 07:06 89 04/22/20 04:00 37.0 C 81 18 132/65 99 PG Care Time/CCT Total # of Minutes Spent Total Time Spent with Patient: Total time spent is greater than 50% in coordination of care (as documented) at patient's floor/unit and/or counseling patient: Coding Level of Care Code 27090 Subseq Hosp Care Lvl 3 Diagnoses SOB (shortness of breath) R06.02 Chest pain R07.9 Coronary artery disease I25.10 CKD (chronic kidney disease) N18.9 Cellulitis L03.119 Laterality: unspecified laterality Site of cellulitis: extremity Site of cellulitis of extremity: lower extremity Hypothyroidism E03.9 Hypertension I10 Anemia D64.9 Anemia type: unspecified type Diarrhea R19.7 Chronic respiratory failure J96.10 DVT prophylaxis Z29.9 (1) Cellulitis Laterality: unspecified laterality Site of cellulitis: extremity Site of cellulitis of extremity: lower extremity Qualified Code(s): L03.119 - Cellulitis of unspecified part of limb (2) Anemia Anemia type: unspecified type Qualified Code(s): D64.9 - Anemia, unspecified
[2020-04-22] MEDS: ISOSORBIDE MONO EXTENDED REL 30 MG TABCR PO SCH (17:19)
--- NOTE | 2020-04-22 19:19 | 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 Note ---
Date of Service: April 22, 2020 A myocardial perfusion study was ordered by primary hospitalist service. According to the nuclear department staff, she received 10.5 mCi of technetium 9 9 M Cardiolite at 7:55 a.m. for rest imaging but she was unable to lay flat due to shortness of breath and hypoxia. Therefore, no imaging was obtained. Stress test was unable to be completed.
[2020-04-22] MEDS: MONTELUKAST SODIUM 10 MG TABLET PO SCH (20:55)
[2020-04-22] MEDS: ROSUVASTATIN CALCIUM 20 MG TAB PO SCH (20:55)
[2020-04-22] MEDS: LIOTHYRONINE SODIUM 5 MCG TAB PO SCH (20:55)
[2020-04-22] MEDS: FLUTICASONE/VILANTEROL 100/25MCG 14 PUFFS/INHALER INH SCH (20:55)
[2020-04-23] MEDS: LEVOTHYROXINE SODIUM 88 MCG TABLET PO SCH (05:58)
[2020-04-23 08:20] LABS: Hematocrit (blood only) 29.2 % (37-47); Hemoglobin 8.8 g/dL (12.0-16.0); Mean Corpuscular Hemoglobin 27.2 pg (25-34); Mean Corpuscular Hgb Conc 30.1 g/dL (32-36); Mean Corpuscular Volume 90.4 fL (80-100); Mean Platelet Volume 10.5 fL (7.4-10.4); Platelet Count 259 K/uL (130-400); RDW Coefficient of Variation 18.5 % (11.5-14.5); RDW Standard Deviation 61.5 fL (36.4-46.3); Red Blood Count 3.23 M/uL (4.2-5.4); White Blood Count 10.79 K/uL (4.8-10.8)
[2020-04-23 08:46] LABS: Calcium 9.8 mg/dl (8.5-10.1); Creatinine Clr Calc Pharmacy 47.6 ml/min; Est GFR (African American) 35.8; Est GFR (Non-African American) 30.9
[2020-04-23] MEDS: INSULIN ASPART 100 UNITS/ML 3 ML PEN SC SCH ×4 (08:46→21:23)
[2020-04-23] MEDS: ISOSORBIDE MONO EXTENDED REL 30 MG TABCR PO SCH (08:48)
[2020-04-23] MEDS: LOSARTAN POTASSIUM 50 MG TAB PO SCH (08:48)
[2020-04-23] MEDS: FUROSEMIDE 20 MG TAB PO SCH (08:49)
[2020-04-23] MEDS: traMADol HCL 50 MG TABLET PO PRN ×2 (08:53→14:41)
[2020-04-23] MEDS ORDERED: amLODIPine BESYLATE 5 MG TAB PO SCH (09:00)
[2020-04-23] MEDS: DOXYCYCLINE HYCLATE 100 MG in DEXTROSE 5% 100 ML IV SCH (10:30)
[2020-04-23 15:06] LABS: Appearance Urine Clear (Clear); Bilirubin Urine Negative (Negative); Blood Urine Trace (Negative); Color Urine Yellow; Glucose Urine UA Negative (Negative); Ketones Urine Negative (Negative); Leukocyte Esterase Urine Trace (Negative); Nitrite Urine Negative (Negative); Protein Urine 1+ (Negative); Specific Gravity Urine 1.009 (1.000-1.030); Urobilinogen Urine Negative (Negative)
[2020-04-23 15:22] LABS: Cast Urine Automated 0 /lpf (0-5)
[2020-04-23 15:23] LABS: RBC Urine Automated 0-4 /hpf (0-4)
[2020-04-23 15:26] LABS: Bacteria Urine Automated Negative (Negative)
--- NOTE | 2020-04-23 17:23 | Hospitalist Progress Note ---
Date of Service April 23, 2020 Assessment & Plan (1) SOB (shortness of breath): With chest pain with exertion, sob improving Troponin negative x 3, no changes in EKG from previous - NSR. Patient refused lower extremity doppler - had this done recently and does not feel it would be beneficial to perform again - patient is allergic to dye so no CTA. With her restrictive lung disease and body habitus VQ scan is unlikely to be revealing. She is not tachycardic, maintaining O2 sats and now improving, unlikely source of dyspnea is PE CXR without acute changes COVID negative, negative flu PCR Continue home inhalers Patient was unable to tolerate NM Lexiscan study becoming hypoxic when laying flat. It would be difficult to obtain an accurate dobutamine stress echo given body habitus. As discussed above, patient did poorly with catheterization. She is in a difficult situation going forward with her respiratory situation, morbid obesity, chronic kidney disease and cardiac history. Additionally, her chest pain complaints are not new to this admission and have been ongoing for some time per patient and per outpatient notes. Discussed her case with cardiology who agreed on holding off on further cardiac workup. Patient's last echo showed significant pulmonary hypertension which in and of itself may be causing chest pain. 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 Will have to monitor for edema (2) Chest pain: As above (3) Coronary artery disease: With history of stent to the OM 2018 Continue home statin, losartan. Not on ASA or Plavix due to recent GI bleed and ongoing anemia requiring transfusions outpatient (4) CKD (chronic kidney disease): Stable - creatinine 1.7 which is near baseline - will continue with home po lasix given edema this morning and low output but will hold off on further Lasix dosing today. Will recheck kidney function tomorrow. This evening patient's edema is resolving but she is feeling thirsty. She may be a bit vascularly dry. Lungs sound clear but somewhat difficult to assess overall volume status given morbid obesity. Avoid nephrotoxins where possible (5) Cellulitis: Right lower extremity - improving Continue doxycycline Continue patient's home Lasix (6) Hypothyroidism: Continue levothyroxine (7) Hypertension: Continue losartan (8) Anemia: Of chronic disease and blood loss with likely chronic GI bleeding Sees Dr. Marianela from hematology Hgb stable Baseline is around 9 - 11. She requires outpatient blood transfusions. (9) Diarrhea: Check C.diff (10) Chronic respiratory failure: due to restrictive lung disease as above Continue home inhalers Wears 3L at home and is at baseline here, requiring 4L with ambulation (11) DVT prophylaxis: Given lymphedema, no SCDS. Per records, anemia is being attributed at least partly to GI bleed so will hold off on chemoprophylaxis. Admission and Anticipated Discharge Date Admission Date: April 20, 2020 Subjective Ms. Molina felt swollen this morning in her face, hands and legs. Her ring was difficult to remove and face was objectively puffy. This afternoon she has improved after her usual home dose of lasix this morning. She was having difficulty urinating this morning, feeling that she had to push out the urine but this afternoon that has also improved. Her sob is still present but better. She did not experience chest pain today. ROS Constitutional: no chills, aches, sweats or fever Respiratory: no cough, sputum, or wheezing Cardiac: no chest pain, palpitations, edema, orthopnea or lightheadedness GI: no abdominal pain, nausea, vomiting, diarrhea or constipation : no dysuria or hesitancy Extremities: no joint pain or weakness Skin: no rash All other systems reviewed and negative Physical Exam Physical Exam: General: no distress Eyes: normal inspection, PERLL Respiratory: chest non tender, clear to auscultation, normal breath sounds, no respiratory distress, no accessory muscle use Cardiac: regular rate and rhythm, no rub or gallop, no murmur, no edema, no jvd GI/: active bowel sounds, no abd pain or tenderness, soft, non distended Extremities: normal range of motion, normal strength, non tender Neuro/Psych: alert and oriented x 3, normal mood and affect Skin: normal color, dry Results & Data Results & Data ([facility]) Vital Signs (Past 12 Hours) Vital Signs Temp Pulse Pulse Resp BP Pulse Ox 04/23/20 15:56 36.8 C 83 18 118/55 L 3 L 04/23/20 11:00 37.0 C 88 20 140/61 97 04/23/20 07:43 108 H 04/23/20 07:00 36.8 C 87 20 111/57 L 94 PG Care Time/CCT Total # of Minutes Spent Total Time Spent with Patient: Total time spent is greater than 50% in coordination of care (as documented) at patient's floor/unit and/or counseling patient: Coding Level of Care Code 49435 Subseq Hosp Care Lvl 3 Diagnoses SOB (shortness of breath) R06.02 Chest pain R07.9 Coronary artery disease I25.10 CKD (chronic kidney disease) N18.9 Cellulitis L03.119 Laterality: unspecified laterality Site of cellulitis: extremity Site of cellulitis of extremity: lower extremity Hypothyroidism E03.9 Hypertension I10 Anemia D64.9 Anemia type: unspecified type Diarrhea R19.7 Chronic respiratory failure J96.10 DVT prophylaxis Z29.9 (1) Cellulitis Laterality: unspecified laterality Site of cellulitis: extremity Site of cellulitis of extremity: lower extremity Qualified Code(s): L03.119 - Cellulitis of unspecified part of limb (2) Anemia Anemia type: unspecified type Qualified Code(s): D64.9 - Anemia, unspecified
[2020-04-23] MEDS: FLUTICASONE/VILANTEROL 100/25MCG 14 PUFFS/INHALER INH SCH (21:18)
[2020-04-23] MEDS: DOXYCYCLINE HYCLATE 100 MG CAP PO SCH (21:19)
[2020-04-23] MEDS: MONTELUKAST SODIUM 10 MG TABLET PO SCH (21:20)
[2020-04-23] MEDS: LIOTHYRONINE SODIUM 5 MCG TAB PO SCH (21:20)
[2020-04-23] MEDS: ROSUVASTATIN CALCIUM 20 MG TAB PO SCH (21:20)
[2020-04-24] MEDS: CARBOHYDRATES FOR HYPOGLYCEMIA PO PRN ×2 (00:01→00:15)
[2020-04-24] MEDS: LEVOTHYROXINE SODIUM 88 MCG TABLET PO SCH (06:09)
[2020-04-24 08:01] LABS: Hematocrit (blood only) 28.2 % (37-47); Hemoglobin 8.5 g/dL (12.0-16.0); Mean Corpuscular Hemoglobin 27.2 pg (25-34); Mean Corpuscular Hgb Conc 30.1 g/dL (32-36); Mean Corpuscular Volume 90.1 fL (80-100); Mean Platelet Volume 10.6 fL (7.4-10.4); Platelet Count 249 K/uL (130-400); RDW Coefficient of Variation 18.5 % (11.5-14.5); RDW Standard Deviation 60.9 fL (36.4-46.3); Red Blood Count 3.13 M/uL (4.2-5.4); White Blood Count 9.62 K/uL (4.8-10.8)
[2020-04-24] MEDS: DOXYCYCLINE HYCLATE 100 MG CAP PO SCH (08:13)
[2020-04-24] MEDS: LOSARTAN POTASSIUM 50 MG TAB PO SCH (08:13)
[2020-04-24] MEDS: INSULIN ASPART 100 UNITS/ML 3 ML PEN SC SCH ×2 (08:14→12:41)
[2020-04-24 08:31] LABS: BUN Creatinine Ratio 21.7 (10-20); Calcium 9.7 mg/dl (8.5-10.1); Creatinine Clr Calc Pharmacy 48.9 ml/min; Est GFR (African American) 37.1; Potassium 4.2 mmol/L (3.5-5.1)
[2020-04-24] MEDS ORDERED: amLODIPine BESYLATE 5 MG TAB PO SCH (09:00)
--- NOTE | 2020-04-24 11:04 | Discharge Summary ---
Date of Service April 24, 2020 Admission HPI Per Admitting Provider Ms. Molina presents today due to persistent sob which started 04/05. She has had diarrhea as well, no nausea or vomiting, normal appetite. She has had chills but no fevers. Her nose has been congested and runny, no loss of taste or smell. Some productive cough. She found that her oxygen saturations were dropping at home. She normally wears 3L. She has also had chest pain with palpitations. The pain comes on with exertion and starts in her upper back and then wraps to her chest. It is relieved with sitting. EKG here does shows SR without ST changes, troponin was negative. She has also had some redness and swelling of her right leg which has lymphedema at baseline. She feels very dehydrated with decrease in urine output, no dysuria. Principal Diagnosis shortness of breath Discharge Exam Constitutional WD/WN, vitals as above Respiratory normal respiratory effort, lungs clear to auscultation Cardiovascular RRR, no murmur, no edema Gastrointestinal (Abdomen) normal bowel sounds, soft, nontender, no hepatosplenomegaly Musculoskeletal no cyanosis or clubbing, extremities motor strength 5/5 Skin right leg erythema nearly resolved Neurologic moves all extremities and awake Psychiatric A+Ox3, euthymic affect Discharge Data Allergies Allergy/AdvReac Type Severity Reaction Status Date / Time shellfish derived Allergy Severe "SEAFOOD" Verified 04/20/20 12:12 -- HIVES and ANAPHLYAXIS sulfite Allergy Severe HIVES AND Verified 04/20/20 12:12 THROAT CLOSES Iodinated Contrast Media Allergy Unknown Unknown Verified 04/20/20 12:12 iodine Allergy Unknown Unknown Verified 04/20/20 12:12 Consultations 04/20/20 14:22 ED Decision to Admit Stat Hospital Course (1) SOB (shortness of breath): With chest pain with exertion, sob improving - no further chest pain today Troponin negative x 3, no changes in EKG from previous - NSR. Patient refused lower extremity doppler - had this done recently and does not feel it would be beneficial to perform again - patient is allergic to dye so no CTA. With her restrictive lung disease and body habitus VQ scan is unlikely to be revealing. She is not tachycardic, maintaining O2 sats and now improving, unlikely source of dyspnea is PE CXR without acute changes COVID negative, negative flu PCR Continue home inhalers Patient was unable to tolerate NM Lexiscan study becoming hypoxic when laying flat. It would be difficult to obtain an accurate dobutamine stress echo given body habitus. As discussed above, patient did poorly with catheterization. She is in a difficult situation going forward with her respiratory situation, morbid obesity, chronic kidney disease and cardiac history. Additionally, her chest pain complaints are not new to this admission and have been ongoing for some time per patient and per outpatient notes. Discussed her case with cardiology who agreed on holding off on further cardiac workup. Patient's last echo showed significant pulmonary hypertension which in and of itself may be causing chest pain. Will treat medically at this time - will change Imdur to amlodipine 2.5 mg per recommendation from patient's cardiology rn. Will have to monitor for edema (2) Chest pain: As above (3) Coronary artery disease: With history of stent to the OM 2018 Continue home statin, losartan. Not on ASA or Plavix due to recent GI bleed and ongoing anemia requiring transfusions outpatient (4) CKD (chronic kidney disease): Stable - creatinine 1.7 which is high end of her baseline - continue home furosemide. Follow with pcp Avoid nephrotoxins where possible (5) Cellulitis: Right lower extremity - improving Continue doxycycline - will give 7 days of treatment Continue patient's home Lasix (6) Hypothyroidism: Continue levothyroxine (7) Hypertension: Continue losartan (8) Anemia: Of chronic disease and blood loss with likely chronic GI bleeding Sees Dr. Bear from hematology Hgb stable Baseline is around 9 - 11. She requires outpatient blood transfus ions. (9) Diarrhea: resolved (10) Chronic respiratory failure: due to restrictive lung disease as above Continue home inhalers Wears 3L at home and is at baseline here, requiring 4L with ambulation Patient feels she is at her baseline today and ready to go home. (11) DVT prophylaxis: Given lymphedema, no SCDS. Per records, anemia is being attributed at least partly to GI bleed so will hold off on chemoprophylaxis. Total Time Total Time Spent Total Time Spent (In Minutes): greater than 30 minutes Discharge Plan Discharge Items Patient Disposition: Home - Self-Care Reason For Visit: SOB Discharge Diagnosis: shortness of breath Activity: Resume your previous activity Non-emergency contact: Primary Care Provider Call non-emergency contact if: you have any medication questions and your s ymptoms worsen Follow-up/Referrals: Catracho Rodríguez DO [Physician] - (Follow up at next available opening ) Aiyana Asencio MD [Primary Care Provider] - (follow up in one week ) Diet: Carb Consistent or DM2 Addtl Attending Provider Instructions: (1) SOB (shortness of breath): You will continue with amlodipine which was started here in the hospital to help with your chest pain. Please let your doctor know if you are having worsening edema with the medication. Please follow up with Dr. Rodríguez at his next available appointment (2) CKD (chronic kidney disease): Your creatinine today was 1.67 which is the high end of your normal range. You can continue taking furosemide. Please discuss rechecking your kidney function at your next appointment with your primary care provider. You have a urine culture pending but as your urinary symptoms have resolved I do not think you need further antibiotic treatment. If you have further urinary s ymptoms, please follow with your primary care provider (3) Cellulitis: You will continue taking doxycycline for 3 more days. Pending Studies at Discharge: No Stand-Alone Forms: [facility] [place], Smoking Cessation Medications and DC Order Prescriptions: New doxycycline hyclate 100 mg Capsule 100 mg PO Q12H Qty: 6 RF: 0 amlodipine [Norvasc] 5 mg Tablet 2.5 mg PO DAILY Qty: 30 RF: 1 Continued fluticasone propion-salmeterol 250-50 mcg/dose blister with device 1 ea Inhalation BID Qty: 60 RF: 11 (DME) Oxygen Home Liters Per Minute See Dose Instructions .ROUTE .MEDSUPPLY Qty: 1 RF: 0 furosemide 20 mg tablet 20 mg PO QAM Qty: 30 RF: 0 fluticasone propionate [24 Hour Allergy Relief] 50 mcg/actuation [place],Suspension 2 spray INTRANASAL DAILY PRN (Reason: Allergy Symptoms) RF: 0 levalbuterol tartrate [Xopenex HFA] 45 mcg/actuation Hfa Aerosol Inhaler 2 inh INHALATION Q4H PRN (Reason: Shortness Of Breath Or Wheezing) RF: 0 insulin regular hum U-500 conc 500 unit/mL (3 mL) insulin pen 120 units subcut QDD RF: 0 insulin regular hum U-500 conc 500 unit/mL (3 mL) insulin pen 50 units subcut BID RF: 0 epinephrine [EpiPen] 0.3 mg/0.3 mL Auto-Injector 0.3 mg IM DIRECTED PRN (Reason: Allergic Reaction) RF: 0 levothyroxine 88 mcg Tablet 88 mcg PO QAM RF: 0 levalbuterol HCl 0.63 mg/3 mL solution for nebulization 0.63 mg inhalation DIRECTED PRN (Reason: Shortness Of Breath Or Wheezing) RF: 0 liothyronine 5 mcg tablet 5 mcg PO HS RF: 0 rosuvastatin 20 mg tablet 20 mg PO HS RF: 0 montelukast 10 mg tablet 10 mg PO HS RF: 0 losartan 100 mg tablet 100 mg PO QAM RF: 0 Discharge Orders: Discharge Order (Routine); Ordered 04/24/20 Ordered By: Shelley Ribeiro Admission Data Admit Date/Time: 04/20/20 16:29 Attending Provider: John Esparza Admit Provider: John Esparza Primary Care Provider: Aiyana Asencio Other Providers: Greg Stahl Other Interventions: Discharge Summary Assessment (RN) Last Done: 04/24/20 11:32 Supervising Physician Co-Signing Physician Notes Patient seen and examined on the day of discharge. I agree with the discharge summary by Shelley CHAVEZ. I have reviewed the chart including labs, imaging and plans for discharge. patient is feeling better today, no chest pain appreciate recommendations from Dr. Rodríguez for Norvasc for pulmonary HTN patient is eating well, no further diarrhea - Chest pain: ongoing issue, difficult to assess could not tolerate Lexiscan stress test and dobutamine stress not very accurate so it was not attempted discussed with Dr. Rodríguez, added Norvasc 2.5mg daily for pulmonary HTN no chest pain on discharge, BP better controlled she is optimized in terms of treatment for coronary disease with history of stent follow up with Dr. Rodríguez in the clinic Coding Level of Care Code D/C Day Management >30 mins Diagnoses SOB (shortness of breath) R06.02 Chest pain R07.9 Coronary artery disease I25.10 CKD (chronic kidney disease) N18.9 Cellulitis L03.119 Laterality: unspecified laterality Site of cellulitis: extremity Site of cellulitis of extremity: lower extremity Hypothyroidism E03.9 Hypertension I10 Anemia D64.9 Anemia type: unspecified type Diarrhea R19.7 Chronic respiratory failure J96.10 DVT prophylaxis Z29.9
[2020-04-24] MEDS ORDERED: HumuLIN-R U-500 45 UNITS in SYRINGE 0 ML SC SCH (17:00)
== END 2020-04-24 15:15 | disposition home or self-care (01) ==
LOC: ED 09:56 → 2N 09:56

== ENCOUNTER 2020-05-17 15:50 | Inpatient (IN) ==
--- NOTE | 2020-05-17 16:31 | Emergency Department Note ---
Impression & Plan Dyspnea, Anemia ED Provider Note INFORMANT: Patient ED PROVIDER(S): Rodri Hummel MD CHIEF COMPLAINT: SOB PLAN: Disposition: Admitted Condition: Good MEDICAL DECISION MAKING: Patient presented because of dyspnea, concerns with anemia, and near syncope. She felt generally weak and noted her O2 saturations decreased with exertion. The patient had findings physically for fluid overload. She had a stable but moderate anemia on CBC. Her white blood cell count is mildly elevated but this was decreased from prior. Patient's kidney function is mildly elevated but similar to prior as well. Patient has significant hyperglycemia. Chest x-ray was concerning for CHF. The patient was treated with Nitropaste, IV insulin, and IV Lasix. Given her consolation of symptoms and issues I discussed further management in the hospital. The patient was in agreement. Consultation was made with the [facility] service. Patient was evaluated in the ER for further management. Triage Nursing notes reviewed and agree them. Additional history obtained from patient significant other Prior medical records reviewed regarding her baseline anemia and renal function. Vital Signs: reviewed and remarkable for no significant abnormalities Differential diagnosis: Reactive airway disease, pneumonia, pneumothorax, COPD, CHF, infections, cardiac ischemia, pulmonary embolism, musculoskeletal, gastrointestinal, as well as other pathologies. Diagnostics interpreted by me: ECG: Twelve-lead ECG reveals a normal sinus rhythm at 93 bpm. There is no evidence of ST elevation or depression. No PACs or PVCs. Normal axis and QRS. Cardiac Monitoring:Cardiac monitoring ordered by me: The patient was placed on continuous cardiac monitoring and observed. It revealed a normal sinus rhythm at 85 beats per minute without ectopy or evidence of dysrhythmia. Imaging studies: Chest x-ray concerning for CHF. I refer to the EMR for further details. Consultation(s[facility] HPI: The patient is a 64 year old female who presents to the Emergency Room with complaints of sob. This started yesterday and is similar to issues in the past related to symptomatic anemia. Has required transfusions, last this past summer. The patient also notes the following associated symptoms, lightheadness, near syncope, o2 sats at home of 86%, dizziness, weakness, nausea. The patient has tried increasing home o2 for relieving factors. Current pain is rated as 0/10. Pt denies LOC, headache, fevers, chills, diaphoresis, visual changes, neck pain, chest pain, vomiting, abdominal pain, back pain, melena, hematochezia, urinary symptoms, numbness, lymphadenopathy, rash, or other complaints. ROS: See above HPI for pertinent positives & negatives. A total of 10 systems reviewed and were otherwise negative. PAST MEDICAL HISTORY:See Below, CRI, DM, CAD, O2 dependance PAST SURGICAL HISTORY:See Below, Cath FAMILY HISTORY:See Below SOCIAL HISTORY:See Below, No tobacco HOME MEDICATIONS:See Below ALLERGIES:See Below VITALS:See Below PHYSICAL EXAMINATION: GENERAL: Awake, alert, mildly dyspneic-appearing, in no distress HENT: Normocephalic, atraumatic. Oropharynx unremarkable. EYES: Normal conjunctiva. Sclera non-icteric. NECK: Inspection normal. Non-tender. Supple. No nuchal rigidity. FROM. No masses. RESPIRATORY: Clear to auscultation. No wheezes. No rales. Normal respiratory effort. CARDIAC: Normal rate. Normal rhythm. No murmurs. No rubs. Extremities warm and well perfused. Pulses equal. No JVD. GI: Soft, non-distended. No tenderness to palpation. No rebound or guarding. No masses. RECTAL: Deferred. MUSCULOSKELETAL: Atraumatic. Chest examination reveals no tenderness. The back is symmetrical on inspection without obvious abnormality. There is no CVA tenderness to palpation. No joint edema. LOWER EXTREMITIES: Calves are equal size bilaterally and non-tender. 2+edema. Chronic discoloration. NEURO: Normal sensorium. No sensory or motor deficits noted. SKIN: No rash or jaundice noted. Rodri Hummel MD Past Med/Surg History Medical History (Updated 05/17/20 @ 20:16 by Lucy Simeon DO) Acute respiratory failure with hypoxia Breathlessness CAD S/P percutaneous coronary angioplasty CHF (congestive heart failure) Chronic respiratory failure 1 to 2 L oxygen Diabetes Diverticulitis GERD (gastroesophageal reflux disease) Hypertension Morbid obesity Stage 3b chronic kidney disease Thyroid cancer Vitamin D deficiency Surgical History H/O endoscopy H/O partial thyroidectomy History of colonoscopy History of percutaneous coronary intervention Family History Other Diabetes Heart disease No pertinent family history Social History Smoking Status: Never smoker Second Hand Exposure: No; Do You Dip or Chew Tobacco: No; Tobacco Cessation Education Requested by Patient: No Hx Alcohol Use: No Hx Substance Use: No Preferred Language: Italian 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 Ability: Effective Manager Safe Required: No Beliefs That Will Affect Care: None Current Living Situation: Spouse Other Information That Helps Us Care for You: Yes Feels Safe at Home: Yes Safety Concerns: Feels Safe At This Time Assistive Devices: Glasses and Oxygen - Continuous Assistive Devices Comment: Glasses Allergies Allergies Allergy/AdvReac Type Severity Reaction Status Date / Time Iodinated Contrast Media Allergy Severe Hives and Verified 05/17/20 17:12 kidney complications iodine Allergy Severe Hives and Verified 05/17/20 17:12 kidney complications shellfish derived Allergy Severe Anaphylaxis Verified 05/17/20 17:12 /Hives sulfite Allergy Severe HIVES AND Verified 05/17/20 17:12 THROAT CLOSES Home Meds Home Medications Medication Instructions Recorded Confirmed fluticasone propionate [24 Hour 2 spray INTRANASAL DAILY PRN 03/25/18 05/17/20 Allergy Relief] levalbuterol tartrate [Xopenex HFA] 2 inh INHALATION Q4H PRN 06/25/18 05/17/20 insulin regular hum U-500 conc 50 units SUBCUT BID 08/16/18 05/17/20 insulin regular hum U-500 conc 120 units SUBCUT QDD 08/16/18 05/17/20 levothyroxine 88 mcg PO QAM 10/25/18 05/17/20 liothyronine 5 mcg PO HS 02/26/19 05/17/20 rosuvastatin 20 mg PO HS 02/26/19 05/17/20 furosemide 20 mg tablet 20 mg PO QAM #30 tab 06/02/19 05/17/20 losartan 100 mg PO QAM 04/20/20 05/17/20 montelukast 10 mg PO HS 04/20/20 05/17/20 fluticasone propion-salmeterol 1 puff INHALATION BID 05/17/20 05/17/20 tramadol 50 mg PO Q6H PRN 05/17/20 05/17/20 Previous Rx's Medication Instructions Recorded amlodipine [Norvasc] 2.5 mg PO DAILY #30 tab 04/24/20 Results & Data (ED) Vital Signs Vital Signs - 24 hr 05/17/20 16:04 05/17/20 16:05 05/17/20 16:07 Temperature 36.8 C Temperature Source Oral Pulse Rate 97 H 93 H 92 H Pulse Rate from SpO2 Sensor 97 H 93 H Respiratory Rate 15 11 L 20 Blood Pressure 176/72 H 176/72 H Blood Pressure Mean 116 106 Pulse Oximetry 100 100 99 Oxygen Delivery Method Nasal Cannula Oxygen Flow Rate 3 Sepsis Recent Fever Within 48 Hours No Sepsis New/Unexplained Change in Mental Status N/A Sepsis Action Taken by Nursing No Action Required 05/17/20 16:16 05/17/20 16:30 05/17/20 16:31 Temperature Temperature Source Pulse Rate 90 89 89 Pulse Rate from SpO2 Sensor 90 90 90 Respiratory Rate 22 22 21 Blood Pressure 182/56 H 184/55 H Blood Pressure Mean 104 92 Pulse Oximetry 100 100 100 Oxygen Delivery Method Oxygen Flow Rate Sepsis Recent Fever Within 48 Hours Sepsis New/Unexplained Change in Mental Status Sepsis Action Taken by Nursing 05/17/20 16:32 05/17/20 16:45 05/17/20 16:48 Temperature Temperature Source Pulse Rate 89 89 Pulse Rate from SpO2 Sensor 90 88 Respiratory Rate 22 23 Blood Pressure 193/69 H Blood Pressure Mean 88 Pulse Oximetry 100 100 100 Oxygen Delivery Method Nasal Cannula Oxygen Flow Rate 3 Sepsis Recent Fever Within 48 Hours Sepsis New/Unexplained Change in Mental Status Sepsis Action Taken by Nursing 05/17/20 16:50 05/17/20 17:00 05/17/20 17:01 Temperature Temperature Source Pulse Rate 88 86 Pulse Rate from SpO2 Sensor 86 86 Respiratory Rate 20 14 Blood Pressure 212/103 H Blood Pressure Mean 139 Pulse Oximetry 100 99 100 Oxygen Delivery Method Nasal Cannula Oxygen Flow Rate 3 Sepsis Recent Fever Within 48 Hours Sepsis New/Unexplained Change in Mental Status Sepsis Action Taken by Nursing 05/17/20 17:16 05/17/20 17:30 05/17/20 17:31 Temperature Temperature Source Pulse Rate 86 86 86 Pulse Rate from SpO2 Sensor 88 87 84 Respiratory Rate 18 17 Blood Pressure 162/78 H 189/53 H Blood Pressure Mean 117 96 Pulse Oximetry 100 100 100 Oxygen Delivery Method Oxygen Flow Rate Sepsis Recent Fever Within 48 Hours Sepsis New/Unexplained Change in Mental Status Sepsis Action Taken by Nursing 05/17/20 18:00 05/17/20 18:02 05/17/20 18:30 Temperature Temperature Source Pulse Rate 84 86 Pulse Rate from SpO2 Sensor 88 84 86 Respiratory Rate 19 14 Blood Pressure 183/49 H Blood Pressure Mean 80 Pulse Oximetry 100 100 100 Oxygen Delivery Method Oxygen Flow Rate Sepsis Recent Fever Within 48 Hours Sepsis New/Unexplained Change in Mental Status Sepsis Action Taken by Nursing 05/17/20 18:31 Temperature Temperature Source Pulse Rate 87 Pulse Rate from SpO2 Sensor 87 Respiratory Rate 17 Blood Pressure Blood Pressure Mean 145 Pulse Oximetry 100 Oxygen Delivery Method Oxygen Flow Rate Sepsis Recent Fever Within 48 Hours Sepsis New/Unexplained Change in Mental Status Sepsis Action Taken by Nursing Laboratory Data Result diagrams: 05/17/20 16:44 05/17/20 16:44 Lab Results 05/17/20 05/17/20 05/17/20 Range/Units 16:44 16:44 16:44 WBC 11.91 H (4.8-10.8) K/uL RBC 3.05 L (4.2-5.4) M/uL Hgb 8.4 L (12.0-16.0) g/dL Hct 28.0 L (37-47) % MCV 91.8 (80-100) fL MCH 27.5 (25-34) pg MCHC 30.0 L (32-36) g/dL RDW Std Deviation 61.3 H (36.4-46.3) fL RDW Coeff of [place]herelle 18.4 H (11.5-14.5) % Plt Count 295 (130-400) K/uL MPV 10.4 (7.4-10.4) fL Immature Gran % (Auto) 0.8 % Neut % (Auto) 74.1 % Lymph % (Auto) 17.1 % [place] % (Auto) 5.5 % Eos % (Auto) 2.2 % Baso % (Auto) 0.3 % Neut # (Auto) 8.84 H (1.4-6.5) K/uL Lymph # (Auto) 2.04 (1.2-3.4) K/uL [place] # (Auto) 0.65 H (0.11-0.59) K/uL Eos # (Auto) 0.26 (0-0.5) K/uL Baso # (Auto) 0.03 (0-0.2) K/uL Immature Gran # (Auto) 0.09 H (0.00-0.02) K/uL PT 11.9 (9.0-12.0) Seconds INR 1.1 (0.9-1.1) APTT 28.8 (21.0-31.0) Seconds PTT Ratio 1.0 Sodium (136-145) mmol/L Potassium (3.5-5.1) mmol/L Chloride (98-107) mmol/L Carbon Dioxide (21-32) mmol/L Anion Gap (3-11) BUN (7-18) mg/dl Creatinine (0.6-1.2) mg/dl Est Cr Clr Drug Dosing ml/min Est GFR ( Amer) Est GFR (Non-Af Amer) BUN/Creatinine Ratio (-20) Glucose (70-99) mg/dl POC Glucose (70-99) mg/dl Calcium (8.5-10.1) mg/dl Magnesium (1.8-2.4) mg/dl Total Bilirubin (0.2-1) mg/dl AST (15-37) U/L ALT (12-78) U/L Alkaline Phosphatase (45-117) U/L Troponin I (0-0.045) ng/ml NT-Pro-B Natriuret Pep (0-900) pg/ml Total Protein (6.4-8.2) gm/dl Albumin (3.4-5.0) gm/dl Globulin (2.5-4.0) gm/dl Albumin/Globulin Ratio (0.9-2) Beta-Hydroxybutyric Acd (0.2-2.81) mg/dl Urine Color Urine Appearance (Clear) Urine pH (4.5-7.5) Ur Specific [place] (1.000-1.030) Urine Protein (Negative) Urine Glucose (UA) (Negative) Urine Ketones (Negative) Urine Blood (Negative) Urine Nitrite (Negative) Urine Bilirubin (Negative) Urine Urobilinogen (Negative) Ur Leukocyte Esterase (Negative) Urine WBC (Auto) (0-5) /hpf Urine RBC (Auto) (0-4) /hpf U Hyaline Cast (Auto) (0-5) /lpf U Epithel Cells (Auto) (0-5) /lpf Urine Bacteria (Auto) (Negative) Blood Type A Positive Antibody Screen NEGATIVE 05/17/20 05/17/20 05/17/20 Range/Units 16:44 18:45 19:12 WBC (4.8-10.8) K/uL RBC (4.2-5.4) M/uL Hgb (12.0-16.0) g/dL Hct (37-47) % MCV (80-100) fL MCH (25-34) pg MCHC (32-36) g/dL RDW Std Deviation (36.4-46.3) fL RDW Coeff of [place]herelle (11.5-14.5) % Plt Count (130-400) K/uL MPV (7.4-10.4) fL Immature Gran % (Auto) % Neut % (Auto) % Lymph % (Auto) % [place] % (Auto) % Eos % (Auto) % Baso % (Auto) % Neut # (Auto) (1.4-6.5) K/uL Lymph # (Auto) (1.2-3.4) K/uL [place] # (Auto) (0.11-0.59) K/uL Eos # (Auto) (0-0.5) K/uL Baso # (Auto) (0-0.2) K/uL Immature Gran # (Auto) (0.00-0.02) K/uL PT (9.0-12.0) Seconds INR (0.9-1.1) APTT (21.0-31.0) Seconds PTT Ratio Sodium 138 (136-145) mmol/L Potassium 4.7 (3.5-5.1) mmol/L Chloride 101 (98-107) mmol/L Carbon Dioxide 33 H (21-32) mmol/L Anion Gap 4.0 (3-11) BUN 42 H (7-18) mg/dl Creatinine 1.88 H (0.6-1.2) mg/dl Est Cr Clr Drug Dosing 44.0 ml/min Est GFR ( Amer) 32.1 Est GFR (Non-Af Amer) 27.7 BUN/Creatinine Ratio 22.1 H (10-20) Glucose 428 H* (70-99) mg/dl POC Glucose 380 H* (70-99) mg/dl Calcium 9.3 (8.5-10.1) mg/dl Magnesium 2.7 H (1.8-2.4) mg/dl Total Bilirubin 0.4 (0.2-1) mg/dl AST 12 L (15-37) U/L ALT 18 (12-78) U/L Alkaline Phosphatase 98 (45-117) U/L Troponin I < 0.015 (0-0.045) ng/ml NT-Pro-B Natriuret Pep 172 (0-900) pg/ml Total Protein 8.0 (6.4-8.2) gm/dl Albumin 2.9 L (3.4-5.0) gm/dl Globulin 5.1 H (2.5-4.0) gm/dl Albumin/Globulin Ratio 0.6 L (0.9-2) Beta-Hydroxybutyric Acd 1.53 (0.2-2.81) mg/dl Urine Color Yellow Urine Appearance Cloudy A (Clear) Urine pH 6.0 (4.5-7.5) Ur Specific [place] 1.015 (1.000-1.030) Urine Protein 2+ H (Negative) Urine Glucose (UA) 3+ H (Negative) Urine Ketones Negative (Negative) Urine Blood 1+ H (Negative) Urine Nitrite Negative (Negative) Urine Bilirubin Negative (Negative) Urine Urobilinogen Negative (Negative) Ur Leukocyte Esterase 1+ H (Negative) Urine WBC (Auto) >30 H (0-5) /hpf Urine RBC (Auto) 5-10 H (0-4) /hpf U Hyaline Cast (Auto) 1-5 (0-5) /lpf U Epithel Cells (Auto) 5-10 H (0-5) /lpf Urine Bacteria (Auto) 4+ H (Negative) Blood Type Antibody Screen Administered Medications Heparin Sodium (Porcine) (Heparin Sod 5,000 Unit/0.5 Ml Vial) 5,000 units SQ Q8 [facility] Stop: 06/16/20 21:59 Last Admin: 05/17/20 22:41 Dose: 5,000 units Documented by: [id number] Cosigned by: [id number] Insulin Aspart (Insulin Aspart 100 Units/Ml 3 Ml Pen) 0 units SC ACHS [facility] Stop: 06/16/20 22:29 Last Admin: 05/17/20 22:42 Dose: 10 units Documented by: [id number] Cosigned by: [id number] Liothyronine Sodium (Liothyronine Sodium 5 Mcg Tab) 5 mcg PO [facility] Stop: 06/16/20 22:14 Last Admin: 05/17/20 22:41 Dose: 5 mcg Documented by: [id number] Montelukast Sodium (Montelukast Sodium 10 Mg Tablet) 10 mg PO [facility] Stop: 06/16/20 22:14 Last Admin: 05/17/20 22:41 Dose: 10 mg Documented by: [id number] Rosuvastatin Calcium (Rosuvastatin Calcium 20 Mg Tab) 20 mg PO [facility] Stop: 06/16/20 22:14 Last Admin: 05/17/20 22:41 Dose: 20 mg Documented by: [id number] Discontinued Medications Furosemide (Furosemide 40 Mg/4 Ml Vial) 40 mg IV NOW STA Stop: 05/17/20 17:51 Last Admin: 05/17/20 18:07 Dose: 40 mg Documented by: [id number] Insulin Human Regular 75 units (/ Syringe) 0.15 mls @ 0 mls/sec SC TODAY@2230 [facility] Stop: 05/17/20 22:31 Last Admin: 05/17/20 22:42 Dose: 1 mls/sec Documented by: [id number] Cosigned by: [id number] Insulin Human Regular (Novolin-R Insulin Per Unit Charge) 10 units IV NOW STA Stop: 05/17/20 17:51 Last Admin: 05/17/20 18:08 Dose: 10 units Documented by: [id number] Cosigned by: [id number] Nitroglycerin (Nitroglycerin 2% Ointment 30gm Tube) 0.5 inch EXT NOW STA Stop: 05/17/20 17:51 Last Admin: 05/17/20 18:07 Dose: 0.5 inch Documented by: [id number] Discharge Plan Visit Data Chief Complaint: Shortness of Breath/Dyspnea Stated Complaint: shortness of breath ED Provider: Rodri Hummel Discharge Problem: Dyspnea, Anemia Patient Disposition: Admitted As Inpatient Discharge Instructions Interventions: ED Discharge Assessment Last Done: 05/17/20 20:54 Discharge Problem: Anemia Qualifiers: Anemia type: unspecified type Qualified Code(s): D64.9 - Anemia, unspecified
[2020-05-17 16:55] LABS: Basophils # (auto) 0.03 K/uL (0-0.2); Basophils % (auto) 0.3 %; Eosinophils # (auto) 0.26 K/uL (0-0.5); Eosinophils % (auto) 2.2 %; Hemoglobin 8.4 g/dL (12.0-16.0); Immature Granulocytes # (auto) 0.09 K/uL (0.00-0.02); Immature Granulocytes % (auto) 0.8 %; Lymphocytes # (auto) 2.04 K/uL (1.2-3.4); Lymphocytes % (auto) 17.1 %; Mean Corpuscular Hemoglobin 27.5 pg (25-34); Mean Corpuscular Volume 91.8 fL (80-100); Mean Platelet Volume 10.4 fL (7.4-10.4); Monocytes # (auto) 0.65 K/uL (0.11-0.59); Monocytes % (auto) 5.5 %; Neutrophils # (auto) 8.84 K/uL (1.4-6.5); Neutrophils % (auto) 74.1 %; Platelet Count 295 K/uL (130-400); RDW Coefficient of Variation 18.4 % (11.5-14.5); RDW Standard Deviation 61.3 fL (36.4-46.3); Red Blood Count 3.05 M/uL (4.2-5.4); White Blood Count 11.91 K/uL (4.8-10.8)
--- NOTE | 2020-05-17 17:07 | XRay Report ---
XR chest 1V portable HISTORY: 64 years-old Female Dyspnea acute shortness of breath COMPARISON: Chest radiograph 04/20/2020 TECHNIQUE: Portable AP view the chest FINDINGS: Cardiomegaly with unchanged pulmonary vascular congestion and reticular opacities. Chronic right bettye diaphragmatic elevation. No large pleural effusion or pneumothorax. Mild bibasilar opacities suggesti ve of probable atelectasis. Degenerative changes of the shoulders and spine. IMPRESSION: Cardiomegaly and pulmonary vascular congestion with interstitial coarsening suggestive of probable pulmonary edema. ACT 112: Negative or not required by law. The above report was generated using voice recognition software. It may contain grammatical, syntax o r spelling errors. Electronically signed by: Aramis Katz M.D. 05/17/2020 5:06 PM
[2020-05-17 17:13] LABS: INR 1.1 (0.9-1.1); Partial Thromboplastin Time 28.8 Seconds (21.0-31.0); Prothrombin Time 11.9 Seconds (9.0-12.0)
[2020-05-17 17:21] LABS: Alanine Aminotransferase 18 U/L (12-78); Albumin Level 2.9 gm/dl (3.4-5.0); Aspartate Aminotransferase 12 U/L (15-37); BUN Creatinine Ratio 22.1 (10-20); Blood Urea Nitrogen 42 mg/dl (7-18); Calcium 9.3 mg/dl (8.5-10.1); Carbon Dioxide 33 mmol/L (21-32); Chloride 101 mmol/L (98-107); Est GFR (African American) 32.1; Est GFR (Non-African American) 27.7; Glucose 428 mg/dl (70-99); Magnesium 2.7 mg/dl (1.8-2.4); Potassium 4.7 mmol/L (3.5-5.1); Sodium 138 mmol/L (136-145)
[2020-05-17 17:30] LABS: Albumin Globulin Ratio 0.6 (0.9-2); Alkaline Phosphatase 98 U/L (45-117); Beta-Hydroxybutyrate 1.53 mg/dl (0.2-2.81); Bilirubin,Total 0.4 mg/dl (0.2-1); Globulin 5.1 gm/dl (2.5-4.0); NT Pro B Type Natriuretic Pept 172 pg/ml (0-900); Troponin I < 0.015 ng/ml (0-0.045)
[2020-05-17] MEDS ORDERED: FUROSEMIDE 40 MG/4 ML VIAL IV STA (17:50)
[2020-05-17] MEDS ORDERED: NovoLIN-R INSULIN PER UNIT CHARGE IV STA (17:50)
[2020-05-17] MEDS ORDERED: NITROGLYCERIN 2% OINTMENT 30GM TUBE EXT STA (17:50)
[2020-05-17 19:16] LABS: Appearance Urine Cloudy (Clear); Bacteria Urine Automated 4+ (Negative); Bilirubin Urine Negative (Negative); Blood Urine 1+ (Negative); Color Urine Yellow; Glucose Urine UA 3+ (Negative); Ketones Urine Negative (Negative); Leukocyte Esterase Urine 1+ (Negative); Nitrite Urine Negative (Negative); Protein Urine 2+ (Negative); Specific Gravity Urine 1.015 (1.000-1.030); Urobilinogen Urine Negative (Negative); WBC Urine Automated >30 /hpf (0-5)
--- NOTE | 2020-05-17 20:01 | History & Physical Report ---
Date of Service May 17, 2020 Assessment & Plan (1) SOB (shortness of breath): 64yo C female with COOPER, hypoxia with ambulation. Presently saturating well on 3L. ?ddx to include CHF (CXR read as pulmonary edema, BNP can be falsely low in obese patients), PE, symptomatic anemia -Admit to medical with telemetry -Continue O2 as needed -Lasix 40mg IV x 1 given - monitor diuretic effect, daily weights, I/O and renal function/electrolytes -Redose Lasix 40mg daily -Check D-dimer - if elevated will obtain BL LE dopplers - patient has had these before and experienced significant discomfort - will add Morphine 2mg IV to be given prior to exam -Check procalcitonin - doubt infectious -No Covid-19 contact Present on Admission?: Yes (2) Diabetes: Patient with hyperglycemia at present, no AG or evidence of DKA. She is on high dose U-500 insulin, reports elevated blood sugars over the last few days -Continue home regimen -ISS -Goal BS 100-140 -Pharmacy consultation for glycemic management appreciated - patient on high doses of U-500 Present on Admission?: Yes (3) CHF (congestive heart failure): ?CHF exacerbation as cause of SOB -Check 2D echo -Lasix 40mg IV daily -Monitor I/O, daily weights and renal function Present on Admission?: Yes (4) Hypertension: Blood pressure elevated on arrival -Continue Amlodipine 2.5mg po daily -Continue Losartan -Continue to monitor Present on Admission?: Yes (5) Hypothyroidism: Chronic -Continue Synthroid and Liothyronine Present on Admission?: Yes (6) Anemia: H/H stable on recheck. No active bleeding. Patient has been worked up in the past with Hanna/EGD and Capsule endoscopy with no source identified. She has been seen by Dr. Bear and is to be started on Procrit injections shortly -Monitor H/H -Consider transfusion after diuresis F/E/N - Diuresis, monitor electrolytes, CC/Low Na diet Ppx - Heparin Code - Full Dispo - Admit to medical with tele Present on Admission?: Yes History of Present Illness Chief Complaint: hypoxia, SOB Primary Care Provider: Aiyana Asencio MD 64yo C female with history of CAD with prior PCI, DM/HTN/GERD and CKD presenting with progressive COOPER, hypoxia with ambulation reportedly to 77%. Patient wears O2 at home - typically 2L. She needed to increase to 4L today. She has occasional palpitations and chest tightness with ambulation as well as conversational dyspnea. Patient came to the ER today because of near collapse and dizziness today. Patient with history of anemia - she follows with Dr. Bear and is to be started on Procrit for her anemia. Her last Hgb was 9.4, repeated today x 2 was 8.4. She has been transfused in the past for symptomatic anemia, COOPER. Her anemia has been worked up extensively with EGD/Hanna/Capsule that was negative. She has some substernal chest discomfort with ambulation +LE edema +Chills +Nausea No Covid-19 exposure Allergies Allergy/AdvReac Type Severity Reaction Status Date / Time Iodinated Contrast Media Allergy Severe Hives and Verified 05/17/20 17:12 kidney complications iodine Allergy Severe Hives and Verified 05/17/20 17:12 kidney complications shellfish derived Allergy Severe Anaphylaxis Verified 05/17/20 17:12 /Hives sulfite Allergy Severe HIVES AND Verified 05/17/20 17:12 THROAT CLOSES Home Medications Home Medications Medication Instructions Recorded Confirmed Type fluticasone propionate [24 Hour 2 spray INTRANASAL DAILY PRN 03/25/18 05/17/20 History Allergy Relief] levalbuterol tartrate [Xopenex HFA] 2 inh INHALATION Q4H PRN 06/25/18 05/17/20 History insulin regular hum U-500 conc 50 units SUBCUT BID 08/16/18 05/17/20 History insulin regular hum U-500 conc 120 units SUBCUT QDD 08/16/18 05/17/20 History levothyroxine 88 mcg PO QAM 10/25/18 05/17/20 History liothyronine 5 mcg PO HS 02/26/19 05/17/20 History rosuvastatin 20 mg PO HS 02/26/19 05/17/20 History furosemide 20 mg tablet 20 mg PO QAM #30 tab 06/02/19 05/17/20 History losartan 100 mg PO QAM 04/20/20 05/17/20 History montelukast 10 mg PO HS 04/20/20 05/17/20 History amlodipine [Norvasc] 2.5 mg PO DAILY #30 tab 04/24/20 05/17/20 Rx fluticasone propion-salmeterol 1 puff INHALATION BID 05/17/20 05/17/20 History tramadol 50 mg PO Q6H PRN 05/17/20 05/17/20 History Past Med/Surg History Medical History (Updated 05/17/20 @ 20:16 by Lucy Simeon DO) Acute respiratory failure with hypoxia Breathlessness CAD S/P percutaneous coronary angioplasty CHF (congestive heart failure) Chronic respiratory failure 1 to 2 L oxygen Diabetes Diverticulitis GERD (gastroesophageal reflux disease) Hypertension Morbid obesity Stage 3b chronic kidney disease Thyroid cancer Vitamin D deficiency Surgical History H/O endoscopy H/O partial thyroidectomy History of colonoscopy History of percutaneous coronary intervention Family History Other Diabetes Heart disease No pertinent family history Social History Smoking Status: Never smoker Second Hand Exposure: No; Do You Dip or Chew Tobacco: No; Tobacco Cessation Education Requested by Patient: No Hx Alcohol Use: No Hx Substance Use: No Preferred Language: Syriac 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 Ability: Effective Showroom Executive Director Required: No Beliefs That Will Affect Care: None Current Living Situation: Spouse Other Information That Helps Us Care for You: Yes Feels Safe at Home: Yes Safety Concerns: Feels Safe At This Time Assistive Devices: Glasses and Oxygen - Continuous Assistive Devices Comment: Glasses Review of Systems Review of Systems: All systems reviewed & are unremarkable except as noted in HPI & below Physical Exam Physical Exam: General: morbidly obese female patient resting comfortably in chair, mask in place, NAD, non-toxic in appearance, AA&O x 4 Skin: warm, dry, intact, skin thickening with chronic skin changes of lymphedema on bilateral LE HEENT: NC/AT, PERRL, EOMI, anicteric sclera, conjunctiva without injection, external ear normal to inspection and nontender, nares patent, moist mucus membranes, dentition intact, no oropharyngeal lesions, neck supple, trachea midline, no LAD, no thyromegaly, no JVD Heart: +S1/S2, regular, no m/r/g Lungs: equal air entry bilaterally, crackles in bilateral bases Abd: +BS, soft, NT/ND, no masses/organomegaly/ascites Ext: warm, 2+ pulses in UE/LE bilaterally, +chronic lymphedema, no cellulitis, clubbing, cyanosis Neuro: nonfocal, patient AA&O x 4, speech intact, no facial droop, moving all extremities on command with equal strength 5/5 Results & Data Results & Data ([facility]) Vital Signs (Past 12 Hours) Vital Signs Temp Pulse Resp BP Pulse Ox 05/17/20 18:31 87 17 100 05/17/20 18:30 86 14 100 05/17/20 18:02 84 19 183/49 H 100 05/17/20 18:00 100 05/17/20 17:31 86 189/53 H 100 05/17/20 17:30 86 17 100 05/17/20 17:16 86 18 162/78 H 100 05/17/20 17:01 86 14 212/103 H 100 05/17/20 17:00 88 20 99 05/17/20 16:50 100 05/17/20 16:48 100 05/17/20 16:45 89 23 193/69 H 100 05/17/20 16:32 89 22 100 05/17/20 16:31 89 21 184/55 H 100 05/17/20 16:30 89 22 100 05/17/20 16:16 90 22 182/56 H 100 05/17/20 16:07 36.8 C 92 H 20 176/72 H 99 05/17/20 16:05 93 H 11 L 176/72 H 100 05/17/20 16:04 97 H 15 100 Laboratory Results Lab Results 05/17/20 05/17/20 05/17/20 Range/Units 16:44 16:44 16:44 WBC 11.91 H (4.8-10.8) K/uL RBC 3.05 L (4.2-5.4) M/uL Hgb 8.4 L (12.0-16.0) g/dL Hct 28.0 L (37-47) % MCV 91.8 (80-100) fL MCH 27.5 (25-34) pg MCHC 30.0 L (32-36) g/dL RDW Std Deviation 61.3 H (36.4-46.3) fL RDW Coeff of Cherelle 18.4 H (11.5-14.5) % Plt Count 295 (130-400) K/uL MPV 10.4 (7.4-10.4) fL Immature Gran % (Auto) 0.8 % Neut % (Auto) 74.1 % Lymph % (Auto) 17.1 % Tripp % (Auto) 5.5 % Eos % (Auto) 2.2 % Baso % (Auto) 0.3 % Neut # (Auto) 8.84 H (1.4-6.5) K/uL Lymph # (Auto) 2.04 (1.2-3.4) K/uL Tripp # (Auto) 0.65 H (0.11-0.59) K/uL Eos # (Auto) 0.26 (0-0.5) K/uL Baso # (Auto) 0.03 (0-0.2) K/uL Immature Gran # (Auto) 0.09 H (0.00-0.02) K/uL PT 11.9 (9.0-12.0) Seconds INR 1.1 (0.9-1.1) APTT 28.8 (21.0-31.0) Seconds PTT Ratio 1.0 D-Dimer (0-500) ug/L FEU Sodium (136-145) mmol/L Potassium (3.5-5.1) mmol/L Chloride (98-107) mmol/L Carbon Dioxide (21-32) mmol/L Anion Gap (3-11) BUN (7-18) mg/dl Creatinine (0.6-1.2) mg/dl Est Cr Clr Drug Dosing ml/min Est GFR ( Amer) Est GFR (Non-Af Amer) BUN/Creatinine Ratio (10-20) Glucose (70-99) mg/dl POC Glucose (70-99) mg/dl Calcium (8.5-10.1) mg/dl Magnesium (1.8-2.4) mg/dl Total Bilirubin (0.2-1) mg/dl AST (15-37) U/L ALT (12-78) U/L Alkaline Phosphatase (45-117) U/L Troponin I (0-0.045) ng/ml NT-Pro-B Natriuret Pep (0-900) pg/ml Total Protein (6.4-8.2) gm/dl Albumin (3.4-5.0) gm/dl Globulin (2.5-4.0) gm/dl Albumin/Globulin Ratio (0.9-2) Beta-Hydroxybutyric Acd (0.2-2.81) mg/dl Procalcitonin (0-0.5) ng/ml Urine Color Urine Appearance (Clear) Urine pH (4.5-7.5) Ur Specific [place] (1.000-1.030) Urine Protein (Negative) Urine Glucose (UA) (Negative) Urine Ketones (Negative) Urine Blood (Negative) Urine Nitrite (Negative) Urine Bilirubin (Negative) Urine Urobilinogen (Negative) Ur Leukocyte Esterase (Negative) Urine WBC (Auto) (0-5) /hpf Urine RBC (Auto) (0-4) /hpf U Hyaline Cast (Auto) (0-5) /lpf U Epithel Cells (Auto) (0-5) /lpf Urine Bacteria (Auto) (Negative) Blood Type A Positive Antibody Screen NEGATIVE 05/17/20 05/17/20 05/17/20 Range/Units 16:44 18:45 19:12 WBC (4.8-10.8) K/uL RBC (4.2-5.4) M/uL Hgb (12.0-16.0) g/dL Hct (37-47) % MCV (80-100) fL MCH (25-34) pg MCHC (32-36) g/dL RDW Std Deviation (36.4-46.3) fL RDW Coeff of Cherelle (11.5-14.5) % Plt Count (130-400) K/uL MPV (7.4-10.4) fL Immature Gran % (Auto) % Neut % (Auto) % Lymph % (Auto) % Tripp % (Auto) % Eos % (Auto) % Baso % (Auto) % Neut # (Auto) (1.4-6.5) K/uL Lymph # (Auto) (1.2-3.4) K/uL Tripp # (Auto) (0.11-0.59) K/uL Eos # (Auto) (0-0.5) K/uL Baso # (Auto) (0-0.2) K/uL Immature Gran # (Auto) (0.00-0.02) K/uL PT (9.0-12.0) Seconds INR (0.9-1.1) APTT (21.0-31.0) Seconds PTT Ratio D-Dimer (0-500) ug/L FEU Sodium 138 (136-145) mmol/L Potassium 4.7 (3.5-5.1) mmol/L Chloride 101 (98-107) mmol/L Carbon Dioxide 33 H (21-32) mmol/L Anion Gap 4.0 (3-11) BUN 42 H (7-18) mg/dl Creatinine 1.88 H (0.6-1.2) mg/dl Est Cr Clr Drug Dosing 44.0 ml/min Est GFR ( Amer) 32.1 Est GFR (Non-Af Amer) 27.7 BUN/Creatinine Ratio 22.1 H (10-20) Glucose 428 H* (70-99) mg/dl POC Glucose 380 H* (70-99) mg/dl Calcium 9.3 (8.5-10.1) mg/dl Magnesium 2.7 H (1.8-2.4) mg/dl Total Bilirubin 0.4 (0.2-1) mg/dl AST 12 L (15-37) U/L ALT 18 (12-78) U/L Alkaline Phosphatase 98 (45-117) U/L Troponin I < 0.015 (0-0.045) ng/ml NT-Pro-B Natriuret Pep 172 (0-900) pg/ml Total Protein 8.0 (6.4-8.2) gm/dl Albumin 2.9 L (3.4-5.0) gm/dl Globulin 5.1 H (2.5-4.0) gm/dl Albumin/Globulin Ratio 0.6 L (0.9-2) Beta-Hydroxybutyric Acd 1.53 (0.2-2.81) mg/dl Procalcitonin (0-0.5) ng/ml Urine Color Yellow Urine Appearance Cloudy A (Clear) Urine pH 6.0 (4.5-7.5) Ur Specific [place] 1.015 (1.000-1.030) Urine Protein 2+ H (Negative) Urine Glucose (UA) 3+ H (Negative) Urine Ketones Negative (Negative) Urine Blood 1+ H (Negative) Urine Nitrite Negative (Negative) Urine Bilirubin Negative (Negative) Urine Urobilinogen Negative (Negative) Ur Leukocyte Esterase 1+ H (Negative) Urine WBC (Auto) >30 H (0-5) /hpf Urine RBC (Auto) 5-10 H (0-4) /hpf U Hyaline Cast (Auto) 1-5 (0-5) /lpf U Epithel Cells (Auto) 5-10 H (0-5) /lpf Urine Bacteria (Auto) 4+ H (Negative) Blood Type Antibody Screen 05/17/20 05/17/20 05/17/20 Range/Units 21:20 22:00 22:00 WBC (4.8-10.8) K/uL RBC (4.2-5.4) M/uL Hgb (12.0-16.0) g/dL Hct (37-47) % MCV (80-100) fL MCH (25-34) pg MCHC (32-36) g/dL RDW Std Deviation (36.4-46.3) fL RDW Coeff of Cherelle (11.5-14.5) % Plt Count (130-400) K/uL MPV (7.4-10.4) fL Immature Gran % (Auto) % Neut % (Auto) % Lymph % (Auto) % Tripp % (Auto) % Eos % (Auto) % Baso % (Auto) % Neut # (Auto) (1.4-6.5) K/uL Lymph # (Auto) (1.2-3.4) K/uL Tripp # (Auto) (0.11-0.59) K/uL Eos # (Auto) (0-0.5) K/uL Baso # (Auto) (0-0.2) K/uL Immature Gran # (Auto) (0.00-0.02) K/uL PT (9.0-12.0) Seconds INR (0.9-1.1) APTT (21.0-31.0) Seconds PTT Ratio D-Dimer 720 H* (0-500) ug/L FEU Sodium (136-145) mmol/L Potassium (3.5-5.1) mmol/L Chloride (98-107) mmol/L Carbon Dioxide (21-32) mmol/L Anion Gap (3-11) BUN (7-18) mg/dl Creatinine (0.6-1.2) mg/dl Est Cr Clr Drug Dosing ml/min Est GFR ( Amer) Est GFR (Non-Af Amer) BUN/Creatinine Ratio (10-20) Glucose (70-99) mg/dl POC Glucose 331 H* (70-99) mg/dl Calcium (8.5-10.1) mg/dl Magnesium (1.8-2.4) mg/dl Total Bilirubin (0.2-1) mg/dl AST (15-37) U/L ALT (12-78) U/L Alkaline Phosphatase (45-117) U/L Troponin I < 0.015 (0-0.045) ng/ml NT-Pro-B Natriuret Pep (0-900) pg/ml Total Protein (6.4-8.2) gm/dl Albumin (3.4-5.0) gm/dl Globulin (2.5-4.0) gm/dl Albumin/Globulin Ratio (0.9-2) Beta-Hydroxybutyric Acd (0.2-2.81) mg/dl Procalcitonin (0-0.5) ng/ml Urine Color Urine Appearance (Clear) Urine pH (4.5-7.5) Ur Specific [place] (1.000-1.030) Urine Protein (Negative) Urine Glucose (UA) (Negative) Urine Ketones (Negative) Urine Blood (Negative) Urine Nitrite (Negative) Urine Bilirubin (Negative) Urine Urobilinogen (Negative) Ur Leukocyte Esterase (Negative) Urine WBC (Auto) (0-5) /hpf Urine RBC (Auto) (0-4) /hpf U Hyaline Cast (Auto) (0-5) /lpf U Epithel Cells (Auto) (0-5) /lpf Urine Bacteria (Auto) (Negative) Blood Type Antibody Screen 05/17/20 Range/Units 22:00 WBC (4.8-10.8) K/uL RBC (4.2-5.4) M/uL Hgb (12.0-16.0) g/dL Hct (37-47) % MCV (80-100) fL MCH (25-34) pg MCHC (32-36) g/dL RDW Std Deviation (36.4-46.3) fL RDW Coeff of Cherelle (11.5-14.5) % Plt Count (130-400) K/uL MPV (7.4-10.4) fL Immature Gran % (Auto) % Neut % (Auto) % Lymph % (Auto) % Tripp % (Auto) % Eos % (Auto) % Baso % (Auto) % Neut # (Auto) (1.4-6.5) K/uL Lymph # (Auto) (1.2-3.4) K/uL Tripp # (Auto) (0.11-0.59) K/uL Eos # (Auto) (0-0.5) K/uL Baso # (Auto) (0-0.2) K/uL Immature Gran # (Auto) (0.00-0.02) K/uL PT (9.0-12.0) Seconds INR (0.9-1.1) APTT (21.0-31.0) Seconds PTT Ratio D-Dimer (0-500) ug/L FEU Sodium (136-145) mmol/L Potassium (3.5-5.1) mmol/L Chloride (98-107) mmol/L Carbon Dioxide (21-32) mmol/L Anion Gap (3-11) BUN (7-18) mg/dl Creatinine (0.6-1.2) mg/dl Est Cr Clr Drug Dosing ml/min Est GFR ( Amer) Est GFR (Non-Af Amer) BUN/Creatinine Ratio (10-20) Glucose (70-99) mg/dl POC Glucose (70-99) mg/dl Calcium (8.5-10.1) mg/dl Magnesium (1.8-2.4) mg/dl Total Bilirubin (0.2-1) mg/dl AST (15-37) U/L ALT (12-78) U/L Alkaline Phosphatase (45-117) U/L Troponin I (0-0.045) ng/ml NT-Pro-B Natriuret Pep (0-900) pg/ml Total Protein (6.4-8.2) gm/dl Albumin (3.4-5.0) gm/dl Globulin (2.5-4.0) gm/dl Albumin/Globulin Ratio (0.9-2) Beta-Hydroxybutyric Acd (0.2-2.81) mg/dl Procalcitonin 0.11 (0-0.5) ng/ml Urine Color Urine Appearance (Clear) Urine pH (4.5-7.5) Ur Specific [place] (1.000-1.030) Urine Protein (Negative) Urine Glucose (UA) (Negative) Urine Ketones (Negative) Urine Blood (Negative) Urine Nitrite (Negative) Urine Bilirubin (Negative) Urine Urobilinogen (Negative) Ur Leukocyte Esterase (Negative) Urine WBC (Auto) (0-5) /hpf Urine RBC (Auto) (0-4) /hpf U Hyaline Cast (Auto) (0-5) /lpf U Epithel Cells (Auto) (0-5) /lpf Urine Bacteria (Auto) (Negative) Blood Type Antibody Screen Diagnostic Findings XR chest 1V portable HISTORY: 64 years-old Female Dyspnea acute shortness of breath COMPARISON: Chest radiograph 04/20/2020 TECHNIQUE: Portable AP view the chest FINDINGS: Cardiomegaly with unchanged pulmonary vascular congestion and reticular opacities. Chronic right hemidiaphragmatic elevation. No large pleural effusion or pneumothorax. Mild bibasilar opacities suggestive of probable atelectasis. Degenerative changes of the shoulders and spine. IMPRESSION: Cardiomegaly and pulmonary vascular congestion with interstitial coarsening suggestive of probable pulmonary edema. ACT 112: Negative or not required by law. The above report was generated using voice recognition software. It may contain grammatical, syntax or spelling errors. Electronically signed by: Aramis Katz M.D. 05/17/2020 5:06 PM Dictated: 05/17/201704 Transcribed: 05/17/201704 ECG Additional Comments: NSR at 93bpm, normal axis, GD=144, QRS=94, IDk=[id number], ?low voltage, no evidence of ischemia Code Status & VTE Plan Code Status FULL CODE VTE Prophylaxis Plan VTE Prophylaxis will be ordered: Yes PG Care Time/CCT Total # of Minutes Spent Total Time Spent with Patient: Total time spent is greater than 50% in coordination of care (as documented) at patient's floor/unit and/or counseling patient: Coding Level of Care Code 62787 Initial Inpt Care Lvl 3 Diagnoses SOB (shortness of breath) R06.02 Diabetes E11.9; Z79.4 Diabetes mellitus complication status: without complication Diabetes mellitus manager intermediate insulin use: with manager intermediate use Diabetes mellitus type: type 2 CHF (congestive heart failure) I50.9 Heart failure chronicity: unspecified Heart failure type: unspecified Hypertension I10 Hypertension type: essential hypertension Hypothyroidism E03.9 Hypothyroidism type: unspecified Anemia D64.9 Anemia type: unspecified type (1) Diabetes Diabetes mellitus complication status: without complication Diabetes mellitus manager intermediate insulin use: with manager intermediate use Diabetes mellitus type: type 2 Qualified Code(s): E11.9 - Type 2 diabetes mellitus without complications; Z79.4 - long term (current) use of insulin (2) CHF (congestive heart failure) Heart failure chronicity: unspecified Heart failure type: unspecified Qualified Code(s): I50.9 - Heart failure, unspecified (3) Anemia Anemia type: unspecified type Qualified Code(s): D64.9 - Anemia, unspecified (4) Hypothyroidism Hypothyroidism type: unspecified Qualified Code(s): E03.9 - Hypothyroidism, unspecified (5) Hypertension Hypertension type: essential hypertension Qualified Code(s): I10 - Essential (primary) hypertension
[2020-05-17] MEDS ORDERED: MoRPHine SULFATE 2 MG/ML CARP IV PRN (21:50)
[2020-05-17] MEDS ORDERED: GLUCAGON FOR INJ 1 MG VIAL SQ PRN (21:50)
[2020-05-17] MEDS ORDERED: DEXTROSE 50% 50 ML SYRINGE IV PRN (21:50)
[2020-05-17] MEDS ORDERED: GLUCOSE 40% GEL 15 GM TUBE PO PRN (21:50)
[2020-05-17] MEDS ORDERED: FLUTICASONE PROPIONATE NA SPR 16 GM BTL PRN (21:50)
[2020-05-17] MEDS ORDERED: LEVALBUTEROL TARTRATE 15 GM HFA.AER.AD INH PRN (21:50)
[2020-05-17] MEDS ORDERED: GLUCOSE 10 TABS/TUBE PO PRN (21:50)
[2020-05-17] MEDS ORDERED: ACETAMINOPHEN 325 MG TAB PO PRN (21:50)
[2020-05-17] MEDS ORDERED: ONDANSETRON INJ 2 MG/ML 2 ML VIAL IV PRN (21:50)
[2020-05-17] MEDS ORDERED: DOCUSATE SODIUM 100 MG CAP PO PRN (21:50)
[2020-05-17] MEDS ORDERED: INSULIN REGULAR HUM U SQ SCH (21:50)
[2020-05-17] MEDS ORDERED: CARBOHYDRATES FOR HYPOGLYCEMIA PO PRN (21:50)
[2020-05-17] MEDS ORDERED: PHARMACY GLYCEMIC MGMT CONSULT PRN (21:58)
[2020-05-17] MEDS ORDERED: ROSUVASTATIN CALCIUM 20 MG TAB PO SCH (22:15)
[2020-05-17] MEDS ORDERED: MONTELUKAST SODIUM 10 MG TABLET PO SCH (22:15)
[2020-05-17 22:40] LABS: D Dimer 720 ug/L FEU (0-500)
[2020-05-17] MEDS: HEPARIN SOD 5,000 UNIT/0.5 ML VIAL SQ SCH (22:41)
[2020-05-17] MEDS: LIOTHYRONINE SODIUM 5 MCG TAB PO SCH (22:41)
[2020-05-17] MEDS: INSULIN ASPART 100 UNITS/ML 3 ML PEN SC SCH (22:42)
--- NOTE | 2020-05-17 22:51 | Pharmacy Report ---
Glycemic Control Consultation - Date of Service May 17, 2020 - Scope Scope: Glycemic Pharmacist consulted for glycemic control and to write orders per [facility] inpatient glycemic control protocol. - Objective Weight: 158.8 kg Accuchecks BSG (last 24hrs): 05/17/20 05/17/20 05/17/20 16:44 19:12 21:20 Glucose 428 H* POC Glucose 380 H* 331 H* Laboratory Data (last 24hrs): 05/17/20 16:44 Potassium 4.7 Carbon Dioxide 33 H Anion Gap 4.0 Creatinine 1.88 H Est Cr Clr Drug Dosing 44.0 Beta-Hydroxybutyric Acd 1.53 - Recent Pertinent Medications Outpatient Anti-diabetic Regimen: * U-500 insulin SC 50 units w/ breakfast and lunch, 120 units w/ dinner (220 units daily) * A1c = 8.8 % (04/22/20) - Assessment & Plan Assessment & Plan: ASSESSMENT: * JORGE is a 64 year old female known to pharmacy glycemic consult service * Admitted evening of 05/17/20 with shortness of breath with ambulation * BSGs elevated at time of presentation * 428 mg/dL in ED, given 10 units of IV regular insulin and BSG decreased to 331 mg/dL * Patient maintained on U-500 insulin as an outpatient - will plan to continue this inpatient * Patient received 50 units of U-500 with breakfast and lunch today prior to admission * Based on previous admission data - patient maintained on 50 units TID while inpatient * Will give 75 units x 1 now given elevated BSG and order one overnight check at 0200 * Diet ordered PLAN FOR INPATIENT GLYCEMIC CONTROL: * U-500 insulin * 75 units x 1 this evening * Reassess in AM * Bolus insulin * NovoLog per scale ACHS or Q6hrs while NPO * Goal Range: Low 110 mg/dL - High 140 mg/dL * Correction Factor: 20 mg/dL/unit * No carb coverage * One overnight check at 0200 with same parameters * Please note that the plan above was derived based on current level of insulin resistance and hospital stress. These recommendations are appropriate for inpatient admission only. Plan of care upon discharge will need to be reassessed to avoid potential outpatient hypo/hyperglycemia. Thank you.
[2020-05-18] MEDS ORDERED: INSULIN ASPART 100 UNITS/ML 3 ML PEN SC SCH (02:00)
[2020-05-18] MEDS: LEVOTHYROXINE SODIUM 88 MCG TABLET PO SCH (06:29)
--- NOTE | 2020-05-18 06:52 | 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 Note ---
Date of Service: May 18, 2020 Notified by nursing that pt hesitant to take heparin DVT prophylaxis shots, stating she has had slow bleeding in the past. Discontinued, and SCDs ordered. Resident Activity Tracking Resident Involvement: Contact Center Director Coverage Note Care Provided: Adult Hospital Medicine
[2020-05-18 07:07] LABS: Basophils # (auto) 0.03 K/uL (0-0.2); Basophils % (auto) 0.3 %; Eosinophils # (auto) 0.29 K/uL (0-0.5); Hematocrit (blood only) 27.2 % (37-47); Immature Granulocytes # (auto) 0.03 K/uL (0.00-0.02); Immature Granulocytes % (auto) 0.3 %; Lymphocytes # (auto) 2.39 K/uL (1.2-3.4); Lymphocytes % (auto) 24.6 %; Mean Corpuscular Hemoglobin 26.8 pg (25-34); Mean Corpuscular Hgb Conc 29.4 g/dL (32-36); Mean Corpuscular Volume 91.3 fL (80-100); Monocytes # (auto) 0.95 K/uL (0.11-0.59); Monocytes % (auto) 9.8 %; Neutrophils # (auto) 6.01 K/uL (1.4-6.5); Platelet Count 281 K/uL (130-400); RDW Coefficient of Variation 18.4 % (11.5-14.5); RDW Standard Deviation 61.2 fL (36.4-46.3); Red Blood Count 2.98 M/uL (4.2-5.4)
--- NOTE | 2020-05-18 07:09 | Ultrasound Report ---
BILATERAL LOWER EXTREMITY VENOUS DOPPLER CLINICAL HISTORY: Bilateral lower extremity edema. COMPARISON STUDY: Right lower extremity venous Doppler February 24, 2019 and bilateral lower extremity venous Doppler ultrasound October 25, 2018. TECHNIQUE: Sonography of the deep venous system of the bilateral lower extremities was performed. Co mpression and augmentation were evaluated. FINDINGS: Exam was technically difficult given suboptimal penetration. Note is made of a small right popliteal cyst. The bilateral common femoral, superficial femoral and popliteal veins were compressib le. Augmentation was normal. Flow was shown within the deep calf vessels. IMPRESSION: 1. Technically difficult exam but no evidence of deep venous thrombus within the bilateral lower extr emities. 2. Small right popliteal cyst. ACT 112: Negative or not required by law. Electronically signed by: Mack Soto M.D. 05/18/2020 7:08 AM
[2020-05-18] MEDS: HEPARIN SOD 5,000 UNIT/0.5 ML VIAL SQ SCH (07:25)
[2020-05-18 07:46] LABS: BUN Creatinine Ratio 24.8 (10-20); Blood Urea Nitrogen 41 mg/dl (7-18); Calcium 9.1 mg/dl (8.5-10.1); Carbon Dioxide 32 mmol/L (21-32); Chloride 103 mmol/L (98-107); Creatinine Clr Calc Pharmacy 50.1 ml/min; Est GFR (African American) 37.6; Est GFR (Non-African American) 32.5; Glucose 68 mg/dl (70-99); Potassium 3.9 mmol/L (3.5-5.1); Sodium 139 mmol/L (136-145); Troponin I < 0.015 ng/ml (0-0.045)
[2020-05-18] MEDS: FUROSEMIDE 40 MG in SYRINGE 0 ML IV SCH (09:07)
[2020-05-18] MEDS: amLODIPine BESYLATE 5 MG TAB PO SCH (09:07)
[2020-05-18] MEDS: INSULIN ASPART 100 UNITS/ML 3 ML PEN SC SCH ×4 (09:08→21:52)
[2020-05-18] MEDS: LOSARTAN POTASSIUM 50 MG TAB PO SCH (09:09)
[2020-05-18] MEDS: FLUTICASONE/VILANTEROL 100/25MCG 14 PUFFS/INHALER INH SCH (09:09)
[2020-05-18] MEDS: traMADol HCL 50 MG TABLET PO PRN (13:06)
--- NOTE | 2020-05-18 15:30 | XCELERA ---
[id number]
--- NOTE | 2020-05-18 15:39 | Pharmacy Report ---
Pharmacy Glycemic Short Note 2 - Date of Service May 18, 2020 - Glycemic Short BSG Results (Last 24 hours): 05/17/20 05/17/20 05/17/20 16:44 19:12 21:20 Glucose 428 H* POC Glucose 380 H* 331 H* 05/18/20 05/18/20 05/18/20 02:03 06:50 08:16 Glucose 68 L POC Glucose 189 H 76 05/18/20 05/18/20 10:09 11:54 Glucose POC Glucose 137 H 105 H Outpatient Anti-diabetic Regimen: * U-500 insulin SC 50 units w/ breakfast and lunch, 120 units w/ dinner (220 units daily) * A1c = 8.8 % (04/22/20) ASSESSMENT: 05/18/20: * Pt's BSG this morning was 68mg/dL. Expect that this is d/t bedtime admi nistration of U-500, rather than dinner-time administration. * BSGs have been well-controlled thus far today. Will utilize dosing strategy that has been effective for pt during past admissions and adjust as needed. 05/17/20 * EH is a 64 year old female known to pharmacy glycemic consult service * Admitted evening of 05/17/20 with shortness of breath with ambulation * BSGs elevated at time of presentation * 428 mg/dL in ED, given 10 units of IV regular insulin and BSG decreased to 331 mg/dL * Patient maintained on U-500 insulin as an outpatient - will plan to continue this inpatient * Patient received 50 units of U-500 with breakfast and lunch today prior to admission * Based on previous admission data - patient maintained on 50 units TID while inpatient * Will give 75 units x 1 now given elevated BSG and order one overnight check at 0200 * Diet ordered PLAN FOR INPATIENT GLYCEMIC CONTROL: * U-500 insulin * 50 units SQ TIDM * Bolus insulin * NovoLog per scale ACHS or Q6hrs while NPO * Goal Range: Low 110 mg/dL - High 140 mg/dL * Correction Factor: 20 mg/dL/unit * No carb coverage PLAN FOR DISCHARGE: * Patient's A1c (8.8%) indicates sub-optimal glycemic control as an outpt. Goal A1c closer to 6.5-7%. * Suspect that pt may resume home regimen on discharge, and f/u with outpt provider to optimize A1c.
[2020-05-18] MEDS ORDERED: INSULIN REGULAR HUM U SQ SCH (16:30)
[2020-05-18] MEDS ORDERED: MONTELUKAST SODIUM 10 MG TABLET PO SCH (19:00)
[2020-05-18] MEDS ORDERED: ROSUVASTATIN CALCIUM 20 MG TAB PO SCH (19:00)
--- NOTE | 2020-05-18 19:52 | Hospitalist Progress Note ---
Date of Service May 18, 2020 Assessment & Plan (1) SOB (shortness of breath): Patient with previous admission for similar findings Chronic supplemental oxygen use at home at 2 L/min via nasal cannula X-ray shows cardiomegaly and pulmonary edema with no acute infiltrate or consolidation Echocardiogram with preserved left ventricular ejection fraction and no wall motion abnormalities Patient has known coronary artery disease and follows with Dr. Rodríguez from the [facility] Hemoglobin 8 g/Michaela -would not recommend transfusion at this time Lower extremity duplex is negative for DVT Doubt pulmonary emboli Most likely secondary to CHF exacerbation We will continue outpatient medications including fluticasone salmeterol, Xopenex's, and Singulair Has followed with Dr. Ruiz as an outpatient. Scheduled to follow-up with Dr. Cedillo. Currently at baseline supplemental oxygen levels (2) Anemia: Follows with Dr. Bear Hemoglobin 8 g/Michaela RBCs 2.98 Patient currently in the process of being approved for Procrit No indication for transfusion at this time Follow serial lab (3) Stage 3b chronic kidney disease: Creatinine currently at baseline at 1.65 Follow serial labs (4) Hypothyroidism: History of Tony's thyroiditis Status post partial thyroidectomy and iodine treatment Continue liothyronine 5 mcg p.o. at bedtime and levothyroxine 88 mcg p.o. every morning Outpatient follow-up with endocrinology (5) Coronary artery disease: Follows with Dr. Rodríguez Echocardiogram with no new findings. EF 60 to 65% Continue furosemide, losartan, and rosuvastatin Poor tolerance of catheterization in the past Nuclear medicine Lexiscan study not able to be completed secondary to patient's inability to lay flat Poor candidate for dobutamine stress test secondary to body habitus Continue supportive care with outpatient follow-up (6) Diabetes: Laboratory Tests 04/22/20 06:03 Hemoglobin A1c 8.8 H Continue home regimen of insulin We will also continue with sliding scale insulin Consult adaptive physical educator (7) CHF (congestive heart failure): Continue with diuresis Follow I&Os Outpatient follow-up with Dr. Rodríguez (8) Lymphedema of lower extremity: Continue support hose Continue analgesia for leg pain Continue supportive care (9) DVT prophylaxis: Lower extremity Doppler is negative for DVT Heparin 5000 units subcutaneously every 8 hours Out of bed to chair as tolerated Ambulate as tolerated Admission and Anticipated Discharge Date Admission Date: May 17, 2020 Subjective Attending: Dr. Rocael Carver This is a 64-year-old female that was admitted yesterday for shortness of breath and CHF exacerbation. She presented to the emergency department for near collapse and dizziness. She is followed with Dr. Bear from hematology for anemia with negative EGD/colonoscopy/capsule investigation. She also has a low red blood cell count of 2.98. I saw Mrs. Molina at bedside. She states that she is feeling much better today. She has no lightheadedness or dizziness today. She does report shortness of breath with ambulation across the room to the bathroom. She states that this is been status quo for about the last 2-1/2 years. She uses chronic supplemental oxygen at home at 2 L/min by nasal cannula . She has a BMI of 66.1 kg/m. She has a chronic issue with being overweight since thyroid surgery and development of lymphedema of the lower extremities. Chest pain and tightness is resolved. She has no new leg pain. She has no awareness of palpitations. She denies fever or chills. Overall symptoms are improved. Review of Systems Review of Systems: All systems reviewed & are unremarkable except as noted in Subjective Physical Exam Physical Exam: GENERAL : No acute distress. Generalized weakness. Unable to comfortably sit upright EYES: No icterus, gaze conjugate NOSE: No evidence of epistaxis. Nasal cannula is in place MOUTH: No lesions or candidiasis NECK: Supple LUNGS: CTA B/L, no wheezes, rales or rhonchi. Patient does have decreased breath sounds globally HEART: Regular, rate controlled ABDOMEN: Soft, NT, ND, BS Present EXTREMITIES: Bilateral LE lymphedema, pedal pulses intact and equal bilaterally. NEURO: A&OX3 Results & Data Results & Data ([facility]) Vital Signs (Past 12 Hours) Vital Signs Temp Pulse Resp BP Pulse Ox 05/18/20 15:33 36.6 C 82 18 122/57 L 99 Laboratory Results 05/18/20 06:50 05/18/20 06:50 05/17/20 05/17/20 05/18/20 16:44 22:00 06:50 Troponin I < 0.015 < 0.015 < 0.015 Diagnostic Findings Echocardiogram 05/18/2020 Interpretation: 1. Grossly normal left ventricular size with normal systolic function. EF 60 to 65%. No regional wall motion abnormalities. No significant left ventricular hypertrophy suggested. 2. No significant valvular abnormalities visualized. Valves were not well seen. 3. Mild pulmonary hypertension. Estimated RVSP 44 mmHg 4. Technically difficult study, enhanced with IV dependency. BILATERAL LOWER EXTREMITY VENOUS DOPPLER CLINICAL HISTORY: Bilateral lower extremity edema. COMPARISON STUDY: Right lower extremity venous Doppler February 24, 2019 and bilateral lower extremity venous Doppler ultrasound October 25, 2018. TECHNIQUE: Sonography of the deep venous system of the bilateral lower extremities was performed. Compression and augmentation were evaluated. FINDINGS: Exam was technically difficult given suboptimal penetration. Note is made of a small right popliteal cyst. The bilateral common femoral, superficial femoral and popliteal veins were compressible. Augmentation was normal. Flow was shown within the deep calf vessels. IMPRESSION: 1. Technically difficult exam but no evidence of deep venous thrombus within the bilateral lower extremities. 2. Small right popliteal cyst. Electronically signed by: Mack Soto M.D. 05/18/2020 7:08 AM XR chest 1V portable HISTORY: 64 years-old Female Dyspnea acute shortness of breath COMPARISON: Chest radiograph 04/20/2020 TECHNIQUE: Portable AP view the chest FINDINGS: Cardiomegaly with unchanged pulmonary vascular congestion and reticular opacities. Chronic right hemidiaphragmatic elevation. No large pleural effusion or pneumothorax. Mild bibasilar opacities suggestive of probable atelectasis. Degenerative changes of the shoulders and spine. IMPRESSION: Cardiomegaly and pulmonary vascular congestion with interstitial coarsening suggestive of probable pulmonary edema. Electronically signed by: Aramis Katz M.D. 05/17/2020 5:06 PM PG Care Time/CCT Total # of Minutes Spent Total Time Spent with Patient: Total time spent is greater than 50% in coordination of care (as documented) at patient's floor/unit and/or counseling patient: 30 minutes Coding Level of Care Code 14029 Subseq Hosp Care Lvl 2 Diagnoses SOB (shortness of breath) R06.02 Anemia D64.9 Anemia type: unspecified type Stage 3b chronic kidney disease N18.32 Hypothyroidism E03.9 Hypothyroidism type: unspecified Coronary artery disease I25.10 Diabetes E11.9; Z79.4 Diabetes mellitus complication status: without complication Diabetes mellitus termite exterminator helper insulin use: with termite exterminator helper use Diabetes mellitus type: type 2 CHF (congestive heart failure) I50.9 Heart failure type: unspecified Heart failure chronicity: unspecified Lymphedema of lower extremity I89.0 DVT prophylaxis Z29.9 Time Spent (min) 30 (1) Anemia Anemia type: unspecified type Qualified Code(s): D64.9 - Anemia, unspecified (2) Hypothyroidism Hypothyroidism type: unspecified Qualified Code(s): E03.9 - Hypothyroidism, unspecified (3) Diabetes Diabetes mellitus complication status: without complication Diabetes mellitus termite exterminator helper insulin use: with termite exterminator helper use Diabetes mellitus type: type 2 Qualified Code(s): E11.9 - Type 2 diabetes mellitus without complications; Z79.4 - MCFP (current) use of insulin (4) CHF (congestive heart failure) Heart failure type: unspecified Heart failure chronicity: unspecified Qualified Code(s): I50.9 - Heart failure, unspecified
[2020-05-18] MEDS: LIOTHYRONINE SODIUM 5 MCG TAB PO SCH (21:53)
--- NOTE | 2020-05-18 22:20 | Electrocardiogram Report ---
Test Reason : Blood Pressure : / mmHG Vent. Rate : 093 BPM Atrial Rate : 093 BPM P-R Int : 180 ms QRS Dur : 094 ms QT Int : 362 ms P-R-T Axes : 064 012 069 degrees QTc Int : 450 ms Normal sinus rhythm Low voltage QRS Borderline ECG When compared with ECG of 21-APR-2020 10:03, No significant change was found Confirmed by Charles Sommers ([id number]) on 05/18/2020 10:19:53 PM Referred By: REFERRED SELF Confirmed By:Charles Sommers
[2020-05-19] MEDS: LEVOTHYROXINE SODIUM 88 MCG TABLET PO SCH (05:54)
[2020-05-19] MEDS: traMADol HCL 50 MG TABLET PO PRN (09:47)
[2020-05-19] MEDS: INSULIN ASPART 100 UNITS/ML 3 ML PEN SC SCH ×2 (09:52→12:03)
[2020-05-19] MEDS: FLUTICASONE/VILANTEROL 100/25MCG 14 PUFFS/INHALER INH SCH (09:52)
[2020-05-19] MEDS: LOSARTAN POTASSIUM 50 MG TAB PO SCH (11:13)
[2020-05-19] MEDS: amLODIPine BESYLATE 5 MG TAB PO SCH (11:14)
[2020-05-19 11:21] LABS: Hematocrit (blood only) 28.1 % (37-47); Hemoglobin 8.4 g/dL (12.0-16.0); Mean Corpuscular Hemoglobin 27.1 pg (25-34); Mean Corpuscular Hgb Conc 29.9 g/dL (32-36); Mean Corpuscular Volume 90.6 fL (80-100); Mean Platelet Volume 10.3 fL (7.4-10.4); Platelet Count 291 K/uL (130-400); RDW Coefficient of Variation 18.6 % (11.5-14.5); RDW Standard Deviation 61.3 fL (36.4-46.3); White Blood Count 11.04 K/uL (4.8-10.8)
[2020-05-19] MEDS: FUROSEMIDE 40 MG in SYRINGE 0 ML IV SCH ×2 (11:29→12:51)
[2020-05-19 11:46] LABS: BUN Creatinine Ratio 21.7 (10-20); Calcium 8.9 mg/dl (8.5-10.1); Creatinine Clr Calc Pharmacy 43.1 ml/min; Est GFR (African American) 31.3; Potassium 4.3 mmol/L (3.5-5.1)
[2020-05-19 12:02] LABS: Beta-Hydroxybutyrate 6.28 mg/dl (0.2-2.81)
[2020-05-19] MEDS ORDERED: INSULIN HUMAN REGULAR PER UNIT 10 UNITS in SYRINGE 9.9 ML IV ONE (12:45)
--- NOTE | 2020-05-24 08:04 | Discharge Summary ---
Date of Service 05/19/2020 Admission HPI Per Admitting Provider 64yo C female with history of CAD with prior PCI, DM/HTN/GERD and CKD presenting with progressive COOPER, hypoxia with ambulation reportedly to 77%. Patient wears O2 at home - typically 2L. She needed to increase to 4L today. She has occasional palpitations and chest tightness with ambulation as well as conversational dyspnea. Patient came to the ER today because of near collapse and dizziness today. Patient with history of anemia - she follows with Dr. Bear and is to be started on Procrit for her anemia. Her last Hgb was 9.4, repeated today x 2 was 8.4. She has been transfused in the past for symptomatic anemia, COOPER. Her anemia has been worked up extensively with EGD/Amma/Capsule that was negative. She has some substernal chest discomfort with ambulation +LE edema +Chills +Nausea No Covid-19 exposure Admission Exam Per Admitting Provider General: morbidly obese female patient resting comfortably in chair, mask in place, NAD, non-toxic in appearance, AA&O x 4 Skin: warm, dry, intact, skin thickening with chronic skin changes of lymphedema on bilateral LE HEENT: NC/AT, PERRL, EOMI, anicteric sclera, conjunctiva without injection, external ear normal to inspection and nontender, nares patent, moist mucus membranes, dentition intact, no oropharyngeal lesions, neck supple, trachea midline, no LAD, no thyromegaly, no JVD Heart: +S1/S2, regular, no m/r/g Lungs: equal air entry bilaterally, crackles in bilateral bases Abd: +BS, soft, NT/ND, no masses/organomegaly/ascites Ext: warm, 2+ pulses in UE/LE bilaterally, +chronic lymphedema, no cellulitis, clubbing, cyanosis Neuro: nonfocal, patient AA&O x 4, speech intact, no facial droop, moving all extremities on command with equal strength 5/5 Principal Diagnosis Shortness of breath, congestive heart failure Discharge Exam GENERAL : No acute distress. Patient sitting on edge of bed with no difficulty or apparent balance issues EYES: No icterus, gaze conjugate NOSE: No evidence of epistaxis. Nasal cannula is in place MOUTH: No lesions or candidiasis NECK: Supple LUNGS: CTA B/L, no wheezes, rales or rhonchi. Inspiratory effort improved HEART: Regular, rate controlled ABDOMEN: Soft, NT, ND, BS Present EXTREMITIES: Bilateral LE lymphedema, pedal pulses intact and equal bilaterally. NEURO: A&OX3 Discharge Data Allergies Allergy/AdvReac Type Severity Reaction Status Date / Time Iodinated Contrast Media Allergy Severe Hives and Verified 05/17/20 17:12 kidney complications iodine Allergy Severe Hives and Verified 05/17/20 17:12 kidney complications shellfish derived Allergy Severe Anaphylaxis Verified 05/17/20 17:12 /Hives sulfite Allergy Severe HIVES AND Verified 05/17/20 17:12 THROAT CLOSES Consultations 05/17/20 18:18 ED Decision to Admit Stat Ordered Studies 05/18/20 01:01 US venous doppler LE Routine Hospital Course (1) Stage 3b chronic kidney disease: Creatinine currently at baseline at 1.65 Outpatient management (2) Hypothyroidism: History of Tony's thyroiditis Status post partial thyroidectomy and iodine treatment Continue liothyronine 5 mcg p.o. at bedtime and levothyroxine 88 mcg p.o. every morning Outpatient follow-up with endocrinology (3) Coronary artery disease: Follows with Dr. Rodríguez Echocardiogram with no new findings. EF 60 to 65% Continue furosemide, losartan, and rosuvastatin Poor tolerance of catheterization in the past Nuclear medicine Lexiscan study not able to be completed secondary to patient's inability to lay flat Poor candidate for dobutamine stress test secondary to body habitus Continue supportive care with outpatient follow-up (4) CHF (congestive heart failure): Continue with diuresis Follow I&Os Outpatient follow-up with Dr. Rodríguez (5) Lymphedema of lower extremity: Continue support hose Continue analgesia for leg pain Continue supportive care (6) Diabetes mellitus type 2 in obese: Hemoglobin A1c on 04/22/2020 was 8.8 While the patient was inpatient we continued her home regimen of insulin and added sliding scale insulin with NovoLog Recommended that the patient follow-up with expense analyst as well as endocrinology Total Time Total Time Spent Total Time Spent (In Minutes): 40 minutes including discussion with Total Time Includes: Examination of the Patient, Discharge Planning, Medication Reconciliation and 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 With Other Providers Discharge Plan Discharge Items Patient Disposition: Home - Home Health Services Reason For Visit: HYPOXIA, SOB Discharge Diagnosis: Lightheadedness with associated shortness of breath and hypoxia Activity: Resume your previous activity Lifting: Gradually increase as tolerated Bathing: No limitations Sexual Activity: When tolerated Exercise/Sports: Gradually increase as tolerated Driving/Machine Use: No limitations Weightbearing: Full weightbearing Non-emergency contact: Primary Care Provider Call non-emergency contact if: you have any medication questions Follow-up/Referrals: Aiyana Asencio MD [Primary Care Provider] - Diet: Carb Consistent or DM2 and Heart Healthy Addtl Attending Provider Instructions: You were admitted for lightheadedness and dizziness with shortness of breath and low oxygen levels. You were given IV fluids and monitored. Labs were drawn and were consistent with previous outpatient labs. You have a chronic anemia with a low hemoglobin level. On the day of admission your hemoglobin level was 8.4 g/Michaela. This was unchanged on your day of discharge. On discharge, you should follow-up with Dr. Bear to further discuss Procrit injections to help your red blood cell count. You should also keep all appointments with your pulmonary and cardiology doctors. Pending Studies at Discharge: No Stand-Alone Forms: My [facility], Smoking Cessation Medications and DC Order Prescriptions: Continued furosemide 20 mg tablet 20 mg PO QAM Qty: 30 RF: 0 fluticasone propionate [24 Hour Allergy Relief] 50 mcg/actuation Seaman,Suspension 2 spray INTRANASAL DAILY PRN (Reason: Allergy Symptoms) RF: 0 levalbuterol tartrate [Xopenex HFA] 45 mcg/actuation Hfa Aerosol Inhaler 2 inh INHALATION Q4H PRN (Reason: Shortness Of Breath Or Wheezing) RF: 0 insulin regular hum U-500 conc 500 unit/mL (3 mL) insulin pen 120 units subcut QDD RF: 0 insulin regular hum U-500 conc 500 unit/mL (3 mL) insulin pen 50 units subcut BID RF: 0 levothyroxine 88 mcg Tablet 88 mcg PO QAM RF: 0 liothyronine 5 mcg tablet 5 mcg PO HS RF: 0 rosuvastatin 20 mg tablet 20 mg PO HS RF: 0 montelukast 10 mg tablet 10 mg PO HS RF: 0 losartan 100 mg tablet 100 mg PO QAM RF: 0 amlodipine [Norvasc] 5 mg Tablet 2.5 mg PO DAILY Qty: 30 RF: 1 tramadol 50 mg tablet 50 mg PO Q6H PRN (Reason: Pain) RF: 0 fluticasone propion-salmeterol 250-50 mcg/dose blister with device 1 puff Inhalation BID RF: 0 Discharge Orders: Discharge Order (Routine); Ordered 05/19/20 Ordered By: Puneet Panchal Admission Data Admit Date/Time: 05/17/20 20:00 Attending Provider: Rocael Carver Admit Provider: Lucy Simeon Primary Care Provider: Aiyana Asencio Other Providers: Rocael Carver Other Interventions: Discharge Summary Assessment (RN) Last Done: 05/19/20 16:30 Supervising Physician Co-Signing Physician Notes I supervised Puneet Panchal PA-C on this discharge. I interviewed and examined the patient independently of him on the day of discharge. The plan is as written in his note except for any following changes/exceptions: None Coding Level of Care Code D/C Day Management >30 mins Diagnoses Stage 3b chronic kidney disease N18.32 Hypothyroidism E03.9 Hypothyroidism type: unspecified Coronary artery disease I25.10 CHF (congestive heart failure) I50.9 Heart failure chronicity: unspecified Heart failure type: unspecified Lymphedema of lower extremity I89.0 Diabetes mellitus type 2 in obese E11.69; E66.9 Time Spent (min) 40
--- NOTE | 2020-06-01 13:48 | Coding Query ---
CONGESTIVE HEART FAILURE To Promote full compliance with coding requirements relating to patient care, physician participation is requested in all cases of cupola mechanic uncertainty. Please assist us with the following questions. A diagnosis of Congestive Heart Failure with likely Exacerbation is documented in the patient's medical record. To accurately code this diagnosis and to compare patient severity, we ask that you specify the type of heart failure by placing an X within the parenthesis (x). SYSTOLIC HEART FAILURE - NO SYSTOLIC FAILURE ( ) Acute ( ) Chronic ( ) Acute on Chronic ( ) Rheumatic ( ) Unknown DIASTOLIC HEART FAILURE ( ) Acute ( ) Chronic (x ) Acute on Chronic ( ) Rheumatic ( ) Unknown COMBINED SYSTOLIC AND DIASTOLIC HEART FAILURE - NO SYSTOLIC FAILURE ( ) Acute ( ) Chronic ( ) Acute on Chronic ( ) Rheumatic ( ) Unknown Thank you Alma FINK
== END 2020-05-19 17:38 | disposition home health service (06) | DRG 291 ==
LOC: ED 15:50 → SUATTDRO 20:00 → 2W 20:00

== ENCOUNTER 2020-09-27 14:56 | Inpatient (IN) ==
[2020-09-27] MEDS ORDERED: LEVALBUTEROL HCL 1.25 MG/3 ML NEB NEB STA (15:52)
[2020-09-27] MEDS ORDERED: methylPREDNISolone 125 MG/2 ML VIAL IV STA (16:04)
[2020-09-27] MEDS ORDERED: MAGNESIUM SULFATE / D5W 1 GM/100 ML BAG IV STA (16:05)
--- NOTE | 2020-09-27 16:12 | Emergency Department Note ---
Impression & Plan Obesity hypoventilation syndrome, Stage 3b chronic kidney disease, Hypoxia ED Provider Note NAME: GREY LOU AGE: 64 SEX: F : 1955 ARRIVES VIA: Walk-In INFORMANT: Patient, ED PROVIDER(S): Lalo Roy MD CHIEF COMPLAINT: Shortness of breath HPI: This 64-year-old female who presents emergency department complaining of shortness of breath. The patient is on 3 L of oxygen normally. She presents the emergency department because she has increased oxygen intake. She reports exertion makes her shortness of breath much worse however rest and increased oxygen makes it better. The patient called her primary care physician who noted due to the fact the patient has anemic and is on chronic iron infusions that she should come to the emergency department. ROS: See above HPI for pertinent positives & negatives. A total of 10 systems reviewed and were otherwise negative. PAST MEDICAL HISTORY: See Below PAST SURGICAL HISTORY: See Below FAMILY HISTORY: See Below SOCIAL HISTORY: See Below HOME MEDICATIONS: See Below ALLERGIES: See Below VITALS: See Below PHYSICAL EXAMINATION: VITAL SIGNS - Vital signs and nursing notes were reviewed. GENERAL - 64-year-old female appearing stated age who is in no acute distress. SKIN - Without rashes. HEAD - NC/AT. EYES - PERRL with EOMI bilaterally. Sclera anicteric. Palpebral conjunctiva pink and moist with no injection noted. EARS - No deformities of external structures noted on gross examination bilaterally. NOSE - Midline and without cyanosis. No epistaxis or purulent drainage noted. Septum midline without deviation or septal hematoma noted. MOUTH/OROPHARYNX - Without perioral cyanosis. Buccal mucosa pink and moist and without leukoplakia. Tongue midline with equal elevation of palate bilaterally. No tonsillar hypertrophy, erythema, or exudates noted. dentition noted. NECK - Neck with FROM. Supple to palpation. lymphadenopathy noted. No nuchal rigidity. LUNGS -distant lung sounds CARDIAC - RRR with S1/S2. No murmur, rubs, or gallops appreciated. ABDOMEN - Abdominal contour without pulsations or visible masses. BS normoactive all four quadrants. No tenderness, palpable masses, hep atosplenomegaly, or ascites noted. EXTREMITIES -wearing compression socks however diffuse swelling to calfs and thighs NEUROLOGIC - Cranial nerves II through XII grossly intact. Sensory intact to li ght touch throughout. Patellar reflexes +2/4. PSYCH - A&Ox3 and cooperates fully with examiner. Pt is very pleasant and interacts well with examiner. MEDICAL DECISION MAKING: Patient was seen and evaluated as above in room B5. Review was performed of nursing notes and vital signs. I did review pertinent previous visits and patient history. After obtaining a thorough history and physical examination the above work up was performed. This 64-year-old female who presents to the emergency department with generalized weakness. The patient does have an increase in her white blood cell count and her BUN and creatinine are also bumped. The patient is extremely hypoxic. She was ambulated to the bathroom by nursing staff and she dropped into the 70s. She was given breathing treatments as well as Solu-Medrol and magnesium here in the department. Due to the patient's increased oxygen demand I did discuss the case with the hospitalist service who did agree to admit the patient. An order was placed for continuous cardiac monitoring. The monitor shows a rate of 93 with Normal Sinus rhythm. The patient was evaluated during a period of high volume and high acuity while the hospital was at overcapacity during the global COVID-19 pandemic, and that diagnosis was suspected/considered upon their initial presentation. Their evaluation, treatment and testing was consistent with current guidelines for patients who present with complaints or symptoms that may be related to COVID-1 9. Triage Nursing notes reviewed. Prior medical records reviewed Vital Signs: reviewed and remarkable for no significant abnormalities Differential diagnosis: Reactive airway disease, pneumonia, pneumothorax, COPD, CHF, infections, cardiac ischemia, pulmonary embolism, musculoskeletal, gastrointestinal, as well as other pathologies. ER treatment provided: See below Diagnostics interpreted by me: ECG: none EKG compared to May 17, 2020 Cardiac Monitoring: An order was placed for continuous cardiac monitoring. The monitor shows a rate of with rhythm. Laboratory studies: As stated above and show below. Imaging studies: See below Consultation(s): hospitalist Past Med/Surg History Medical History (Updated 09/28/20 @ 15:17 by Lalo Roy MD) Acute respiratory failure with hypoxia Anemia Breathlessness CAD S/P percutaneous coronary angioplasty Chronic respiratory failure 1 to 2 L oxygen Diabetes Diverticulitis Dyspnea GERD (gastroesophageal reflux disease) Hypertension Morbid obesity Morbid obesity due to excess calories Obesity hypoventilation syndrome Proteinuria Secondary pulmonary hypertension SOB (shortness of breath) Stage 3b chronic kidney disease Thyroid cancer Vitamin D deficiency Surgical History H/O endoscopy H/O partial thyroidectomy History of colonoscopy History of percutaneous coronary intervention Family History Other Diabetes Heart disease No pertinent family history Social History Smoking Status: Never smoker Second Hand Exposure: No; Hx Alcohol Use: No Hx Substance Use: No Preferred Language: Kinyarwanda 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 Ability: Effective [employer] Scientist Required: No Beliefs That Will Affect Care: None marital status: Current Living Situation: Spouse Current Living Situation Comment: Other Information That Helps Us Care for You: No Feels Safe at Home: Yes Safety Concerns: Feels Safe At This Time Assistive Devices: Glasses and Walker Assistive Devices Comment: motorized, walker Allergies Allergies Allergy/AdvReac Type Severity Reaction Status Date / Time Iodinated Contrast Media Allergy Severe Hives and Verified 09/27/20 18:24 kidney complications iodine Allergy Severe Hives and Verified 09/27/20 18:24 kidney complications shellfish derived Allergy Severe Anaphylaxis Verified 09/27/20 18:24 /Hives sulfite Allergy Severe HIVES AND Verified 09/27/20 18:24 THROAT CLOSES Home Meds Home Medications Medication Instructions Recorded Confirmed fluticasone propionate [24 Hour 2 spray INTRANASAL DAILY PRN 03/25/18 09/27/20 Allergy Relief] levalbuterol tartrate [Xopenex HFA] 2 inh INHALATION Q4H PRN 06/25/18 09/27/20 insulin regular hum U-500 conc 100 units SUBCUT QAM 08/16/18 09/27/20 insulin regular hum U-500 conc 120 units SUBCUT QAM 08/16/18 09/27/20 levothyroxine 88 mcg PO QAM 10/25/18 09/27/20 liothyronine 5 mcg PO HS 02/26/19 09/27/20 rosuvastatin 20 mg PO HS 02/26/19 09/27/20 furosemide 20 mg tablet 40 mg PO QAM #30 tab 06/02/19 09/27/20 fluticasone propion-salmeterol 1 puff INHALATION BID 05/17/20 09/27/20 tramadol 50 mg PO Q6H PRN 05/17/20 09/27/20 amlodipine 2.5 mg PO QAM 09/27/20 09/27/20 montelukast 10 mg PO HS 09/27/20 09/27/20 Previous Rx's Medication Instructions Recorded ergocalciferol (vitamin D2) 1,250 50,000 unit PO WEEKLY #12 cap 08/12/20 mcg (50,000 unit) capsule losartan 100 mg tablet 100 mg PO QAM #90 tab 08/12/20 Results & Data (ED) Vital Signs Vital Signs - 24 hr 09/27/20 15:15 09/27/20 15:52 09/27/20 16:21 Temperature 36.1 C L Temperature Source Temporal Artery Scan Pulse Rate 93 H 90 Pulse Rate [Exercises] Pulse Rate [Finger] 91 H Pulse Rate [Recovery] Pulse Rate [Resting] Pulse Rhythm Regular Pulse Rhythm [Finger] Pulse Strength [Finger] Respiratory Rate 20 18 18 Respiratory Rate [Exercises] Respiratory Rate [Recovery] Respiratory Rate [Resting] Respiratory Effort / Characteristics Non-Labored Spontaneous SOB on Exertion Non-Labored Spontaneous Respiratory Depth Respiratory Pattern Blood Pressure 158/71 H Blood Pressure [Right Arm] Blood Pressure Mean 100 Blood Pressure Mean [Right Arm] Blood Pressure Position [Right Arm] Pulse Oximetry 98 94 97 Pulse Oximetry [Exercises] Pulse Oximetry [Recovery] Pulse Oximetry [Resting] Oxygen Delivery Method Nasal Cannula Nasal Cannula Nasal Cannula Oxygen Flow Rate 3 4 Sepsis Recent Fever Within 48 Hours No Sepsis New/Unexplained Change in Mental Status N/A Sepsis Action Taken by Nursing No Action Required 09/27/20 16:22 09/27/20 17:22 09/27/20 17:49 Temperature Temperature Source Pulse Rate Pulse Rate [Exercises] 108 H Pulse Rate [Finger] Pulse Rate [Recovery] 98 H Pulse Rate [Resting] 90 Pulse Rhythm Pulse Rhythm [Finger] Pulse Strength [Finger] Respiratory Rate 18 Respiratory Rate [Exercises] 26 H Respiratory Rate [Recovery] 20 Respiratory Rate [Resting] 22 Respiratory Effort / Characteristics Non-Labored Spontaneous Short of Breath SOB on Exertion Non-Labored Spontaneous SOB on Exertion Respiratory Depth Respiratory Pattern Blood Pressure Blood Pressure [Right Arm] Blood Pressure Mean Blood Pressure Mean [Right Arm] Blood Pressure Position [Right Arm] Pulse Oximetry 92 Pulse Oximetry [Exercises] 76 L Pulse Oximetry [Recovery] 90 Pulse Oximetry [Resting] 94 Oxygen Delivery Method Nasal Cannula Nasal Cannula Oxygen Flow Rate 3 3 Sepsis Recent Fever Within 48 Hours Sepsis New/Unexplained Change in Mental Status Sepsis Action Taken by Nursing 09/27/20 17:52 09/27/20 18:57 Temperature Temperature Source Pulse Rate Pulse Rate [Exercises] Pulse Rate [Finger] 80 Pulse Rate [Recovery] Pulse Rate [Resting] Pulse Rhythm Pulse Rhythm [Finger] Regular Pulse Strength [Finger] Normal Respiratory Rate 18 18 Respiratory Rate [Exercises] Respiratory Rate [Recovery] Respiratory Rate [Resting] Respiratory Effort / Characteristics Non-Labored Spontaneous SOB on Exertion Non-Labored Spontaneous SOB on Exertion Respiratory Depth Normal Respiratory Pattern Regular Blood Pressure Blood Pressure [Right Arm] 133/71 Blood Pressure Mean Blood Pressure Mean [Right Arm] 91 Blood Pressure Position [Right Arm] Sitting Pulse Oximetry 94 94 Pulse Oximetry [Exercises] Pulse Oximetry [Recovery] Pulse Oximetry [Resting] Oxygen Delivery Method Nasal Cannula Nasal Cannula Oxygen Flow Rate 3 3 Sepsis Recent Fever Within 48 Hours Sepsis New/Unexplained Change in Mental Status Sepsis Action Taken by Residential Medications Current Medication List: was personally reviewed by me Laboratory Data Result diagrams: 09/28/20 05:59 09/28/20 05:59 Lab Results 09/27/20 09/27/20 09/27/20 Range/Units 16:40 16:40 17:09 WBC 11.71 H (4.8-10.8) K/uL RBC 3.46 L (4.2-5.4) M/uL Hgb 8.8 L (12.0-16.0) g/dL Hct 29.7 L (37-47) % MCV 85.8 (80-100) fL MCH 25.4 (25-34) pg MCHC 29.6 L (32-36) g/dL RDW Std Deviation 67.7 H (36.4-46.3) fL RDW Coeff of Cherelle 21.8 H (11.5-14.5) % Plt Count 245 (130-400) K/uL MPV 10.2 (7.4-10.4) fL Immature Gran % (Auto) 0.3 % Neut % (Auto) 70.5 % Lymph % (Auto) 19.6 % [place] % (Auto) 7.3 % Eos % (Auto) 2.1 % Baso % (Auto) 0.2 % Neut # (Auto) 8.27 H (1.4-6.5) K/uL Lymph # (Auto) 2.29 (1.2-3.4) K/uL [place] # (Auto) 0.85 H (0.11-0.59) K/uL Eos # (Auto) 0.25 (0-0.5) K/uL Baso # (Auto) 0.02 (0-0.2) K/uL Immature Gran # (Auto) 0.03 H (0.00-0.02) K/uL Hypochromasia Present Anisocytosis Present PT (9.0-12.0) Seconds INR (0.9-1.1) APTT (21.0-31.0) Seconds PTT Ratio Sodium (136-145) mmol/L Potassium (3.5-5.1) mmol/L Chloride (98-107) mmol/L Carbon Dioxide (21-32) mmol/L Anion Gap (3-11) BUN (7-18) mg/dl Creatinine (0.6-1.2) mg/dl Est Cr Clr Drug Dosing Est GFR ( Amer) Est GFR (Non-Af Amer) BUN/Creatinine Ratio (10-20) Glucose (70-99) mg/dl POC Glucose (70-99) mg/dl Lactate (0.4-2.0) mmol/L Calcium (8.5-10.1) mg/dl Magnesium (1.8-2.4) mg/dl Total Bilirubin (0.2-1) mg/dl AST (15-37) U/L ALT (12-78) U/L Alkaline Phosphatase (45-117) U/L Total Creatine Kinase (26-192) U/L CK-MB (CK-2) (0.5-3.6) ng/ml CK/CKMB % Calc Troponin I (0-0.045) ng/ml NT-Pro-B Natriuret Pep (0-900) pg/ml Total Protein (6.4-8.2) gm/dl Albumin (3.4-5.0) gm/dl Globulin (2.5-4.0) gm/dl Albumin/Globulin Ratio (0.9-2) Procalcitonin (0-0.5) ng/ml COVID-19 Eval Order CovFluRsv at [facility] SARS-CoV-2 (PCR) NEGATIVE (Negative) Influenza Type A (PCR) Negative (Neg) Influenza Type B (PCR) Negative (Neg) RSV (RT-PCR) Negative (Neg) Blood Type Antibody Screen Crossmatch 09/27/20 09/27/20 09/27/20 Range/Units 17:09 17:09 17:09 WBC (4.8-10.8) K/uL RBC (4.2-5.4) M/uL Hgb (12.0-16.0) g/dL Hct (37-47) % MCV (80-100) fL MCH (25-34) pg MCHC (32-36) g/dL RDW Std Deviation (36.4-46.3) fL RDW Coeff of Cherelle (11.5-14.5) % Plt Count (130-400) K/uL MPV (7.4-10.4) fL Immature Gran % (Auto) % Neut % (Auto) % Lymph % (Auto) % [place] % (Auto) % Eos % (Auto) % Baso % (Auto) % Neut # (Auto) (1.4-6.5) K/uL Lymph # (Auto) (1.2-3.4) K/uL [place] # (Auto) (0.11-0.59) K/uL Eos # (Auto) (0-0.5) K/uL Baso # (Auto) (0-0.2) K/uL Immature Gran # (Auto) (0.00-0.02) K/uL Hypochromasia Anisocytosis PT 11.9 (9.0-12.0) Seconds INR 1.2 H (0.9-1.1) APTT 24.7 (21.0-31.0) Seconds PTT Ratio 0.9 Sodium 138 (136-145) mmol/L Potassium 3.9 (3.5-5.1) mmol/L Chloride 102 (98-107) mmol/L Carbon Dioxide 31 (21-32) mmol/L Anion Gap 6.0 (3-11) BUN 50 H (7-18) mg/dl Creatinine 1.98 H (0.6-1.2) mg/dl Est Cr Clr Drug Dosing Not Reportable Est GFR ( Amer) 30.2 Est GFR (Non-Af Amer) 26.0 BUN/Creatinine Ratio 25.4 H (10-20) Glucose 134 H (70-99) mg/dl POC Glucose (70-99) mg/dl Lactate 1.4 (0.4-2.0) mmol/L Calcium 9.4 (8.5-10.1) mg/dl Magnesium 2.6 H (1.8-2.4) mg/dl Total Bilirubin 0.6 (0.2-1) mg/dl AST 6 L (15-37) U/L ALT 18 (12-78) U/L Alkaline Phosphatase 87 (45-117) U/L Total Creatine Kinase 53 (26-192) U/L CK-MB (CK-2) < 1.0 (0.5-3.6) ng/ml CK/CKMB % Calc TNP Troponin I < 0.015 (0-0.045) ng/ml NT-Pro-B Natriuret Pep 270 (0-900) pg/ml Total Protein 8.0 (6.4-8.2) gm/dl Albumin 3.3 L (3.4-5.0) gm/dl Globulin 4.7 H (2.5-4.0) gm/dl Albumin/Globulin Ratio 0.7 L (0.9-2) Procalcitonin (0-0.5) ng/ml COVID-19 Eval Order SARS-CoV-2 (PCR) (Negative) Influenza Type A (PCR) (Neg) Influenza Type B (PCR) (Neg) RSV (RT-PCR) (Neg) Blood Type Antibody Screen Crossmatch 09/27/20 09/27/20 09/27/20 Range/Units 17:09 18:01 18:44 WBC (4.8-10.8) K/uL RBC (4.2-5.4) M/uL Hgb (12.0-16.0) g/dL Hct (37-47) % MCV (80-100) fL MCH (25-34) pg MCHC (32-36) g/dL RDW Std Deviation (36.4-46.3) fL RDW Coeff of Cherelle (11.5-14.5) % Plt Count (130-400) K/uL MPV (7.4-10.4) fL Immature Gran % (Auto) % Neut % (Auto) % Lymph % (Auto) % [place] % (Auto) % Eos % (Auto) % Baso % (Auto) % Neut # (Auto) (1.4-6.5) K/uL Lymph # (Auto) (1.2-3.4) K/uL [place] # (Auto) (0.11-0.59) K/uL Eos # (Auto) (0-0.5) K/uL Baso # (Auto) (0-0.2) K/uL Immature Gran # (Auto) (0.00-0.02) K/uL Hypochromasia Anisocytosis PT (9.0-12.0) Seconds INR (0.9-1.1) APTT (21.0-31.0) Seconds PTT Ratio Sodium (136-145) mmol/L Potassium (3.5-5.1) mmol/L Chloride (98-107) mmol/L Carbon Dioxide (21-32) mmol/L Anion Gap (3-11) BUN (7-18) mg/dl Creatinine (0.6-1.2) mg/dl Est Cr Clr Drug Dosing Est GFR ( Amer) Est GFR (Non-Af Amer) BUN/Creatinine Ratio (10-20) Glucose (70-99) mg/dl POC Glucose 127 H (70-99) mg/dl Lactate (0.4-2.0) mmol/L Calcium (8.5-10.1) mg/dl Magnesium (1.8-2.4) mg/dl Total Bilirubin (0.2-1) mg/dl AST (15-37) U/L ALT (12-78) U/L Alkaline Phosphatase (45-117) U/L Total Creatine Kinase (26-192) U/L CK-MB (CK-2) (0.5-3.6) ng/ml CK/CKMB % Calc Troponin I (0-0.045) ng/ml NT-Pro-B Natriuret Pep (0-900) pg/ml Total Protein (6.4-8.2) gm/dl Albumin (3.4-5.0) gm/dl Globulin (2.5-4.0) gm/dl Albumin/Globulin Ratio (0.9-2) Procalcitonin 0.07 (0-0.5) ng/ml COVID-19 Eval Order SARS-CoV-2 (PCR) (Negative) Influenza Type A (PCR) (Neg) Influenza Type B (PCR) (Neg) RSV (RT-PCR) (Neg) Blood Type A Positive Antibody Screen NEGATIVE Crossmatch See Detail Administered Medications Amlodipine Besylate (Amlodipine Besylate 5 Mg Tab) 2.5 mg PO QAM LEONA Stop: 10/28/20 08:59 Last Admin: 09/28/20 08:39 Dose: 2.5 mg Documented by: [id number] Fluticasone/Vilanterol (Fluticasone/Vilanterol 200/25mcg 14 Puffs/Inhaler) 1 puffs INH DAILY LEONA Stop: 10/28/20 08:59 Last Admin: 09/28/20 08:39 Dose: 1 puffs Documented by: [id number] Heparin Sodium (Porcine) (Heparin Sod 5,000 Unit/0.5 Ml Vial) 5,000 units SQ Q8 LEONA Stop: 10/27/20 23:16 Last Admin: 09/28/20 11:51 Dose: Not Given Documented by: [id number] Admin: 09/28/20 05:46 Dose: 5,000 units Documented by: [id number] Admin: 09/28/20 00:39 Dose: 5,000 units Documented by: [id number] Insulin Aspart (Insulin Aspart 100 Units/Ml 3 Ml Pen) 0 units SC ACHS LEONA Stop: 10/28/20 04:14 Last Admin: 09/28/20 12:33 Dose: 7 units Documented by: [id number] Cosigned by: [id number] Admin: 09/28/20 08:45 Dose: 5 units Documented by: [id number] Cosigned by: [id number] Admin: 09/28/20 05:10 Dose: 8 units Documented by: [id number] Cosigned by: [id number] Levothyroxine Sodium (Levothyroxine Sodium 88 Mcg Tablet) 88 mcg PO DAILYBB LEONA Stop: 10/28/20 06:29 Last Admin: 09/28/20 05:46 Dose: 88 mcg Documented by: [id number] Liothyronine Sodium (Liothyronine Sodium 5 Mcg Tab) 5 mcg PO HS LEONA Stop: 10/27/20 23:16 Last Admin: 09/28/20 00:46 Dose: 5 mcg Documented by: [id number] Losartan Potassium (Losartan Potassium 50 Mg Tab) 100 mg PO [facility] Stop: 10/28/20 08:59 Last Admin: 09/28/20 08:39 Dose: 100 mg Documented by: [id number] Montelukast Sodium (Montelukast Sodium 10 Mg Tablet) [address] [facility] Stop: 10/27/20 23:16 Last Admin: 09/28/20 00:37 Dose: 10 mg Documented by: [id number] Rosuvastatin Calcium (Rosuvastatin Calcium 20 Mg Tab) [address] [facility] Stop: 10/27/20 23:16 Last Admin: 09/28/20 00:37 Dose: 20 mg Documented by: [id number] Tramadol HCl (Tramadol Hcl 50 Mg Tablet) 50 mg PO Q6H PRN PRN Reason: Pain Stop: 10/27/20 23:16 Last Admin: 09/28/20 05:16 Dose: 50 mg Documented by: [id number] Discontinued Medications Furosemide (Furosemide 40 Mg Tab) 40 mg PO [facility] Stop: 10/28/20 08:59 Last Admin: 09/28/20 08:39 Dose: 40 mg Documented by: [id number] Magnesium Sulfate/Dextrose (Magnesium Sulfate / D5w) 1 gm in 100 mls @ 100 mls/hr IV NOW STA Stop: 09/27/20 17:04 Last Infusion: 09/27/20 20:12 Dose: 0 mls/hr Documented by: [id number] Admin: 09/27/20 17:36 Dose: 100 mls/hr Documented by: [id number] Furosemide 20 mg/ Syringe 2 mls @ 4 mls/min IV ONE ONE Stop: 09/27/20 23:46 Last Admin: 09/28/20 00:38 Dose: 4 mls/min Documented by: [id number] Insulin Human Regular 10 units (/ Syringe) 10 mls @ 30 mls/min IV NOW ONE Stop: 09/28/20 05:16 Last Admin: 09/28/20 05:42 Dose: 30 mls/min Documented by: [id number] Cosigned by: [id number] Insulin Human Regular 50 units (/ Syringe) 0.1 mls @ 0 mls/sec [place] TODAY@0830 [facility] Stop: 09/28/20 08:31 Last Admin: 09/28/20 08:46 Dose: 0.1 mls/sec Documented by: [id number] Cosigned by: [id number] Insulin Human Regular 50 units (/ Syringe) 0.1 mls @ 0 mls/sec SC BID@0800,1200 LEONA Stop: 09/28/20 12:01 Last Admin: 09/28/20 12:33 Dose: 0.1 mls/sec Documented by: [id number] Cosigned by: [id number] Iron Sucrose 200 mg/ Sodium (Chloride) 110 mls @ 220 mls/hr IV TODAY@1300 ONE Stop: 09/28/20 13:29 Last Infusion: 09/28/20 14:37 Dose: 0 mls/hr Documented by: [id number] Admin: 09/28/20 13:45 Dose: 220 mls/hr Documented by: [id number] Furosemide 40 mg/ Syringe 4 mls @ 4 mls/min IV ONE ONE Stop: 09/28/20 12:31 Last Admin: 09/28/20 13:45 Dose: 4 mls/min Documented by: [id number] Insulin Human Regular (Humulin-R Insulin Per Unit Charge) 50 units SQ ONE ONE Stop: 09/28/20 00:31 Last Admin: 09/28/20 00:38 Dose: 50 units Documented by: [id number] Cosigned by: [id number] Levalbuterol HCl (Levalbuterol Hcl 1.25 Mg/3 Ml Neb) 1.25 mg NEB NOW STA Stop: 09/27/20 15:53 Last Admin: 09/27/20 16:15 Dose: 1.25 mg Documented by: [id number] Methylprednisolone (Methylprednisolone 125 Mg/2 Ml Vial) 125 mg IV NOW STA Stop: 09/27/20 16:05 Last Admin: 09/27/20 17:36 Dose: 125 mg Documented by: [id number] Miscellaneous (Patient's Height And/Or Weight Needed) 1 ea N/A ONE STA Stop: 09/27/20 23:26 Last Admin: 09/28/20 00:41 Dose: 1 ea Documented by: [id number] Tramadol HCl (Tramadol Hcl 50 Mg Tablet) 50 mg PO NOW STA Stop: 09/27/20 17:54 Last Admin: 09/27/20 19:14 Dose: 50 mg Documented by: [id number] Imaging Data Radiologist's Impression: [facility] [place] [phone] XRay Report Patient: GREY LOU Admit Date: 09/27/20 MR#: [id number] Address1: [address] [place] [address] Acct ID:[id number] Address2: Date: 1955 [facility] Zip: [place] [address] Age: 64 Location: ED Sex: F Room/Bed: Att Phy: Diagnosis: DOC REF LOW BLOOD COUNT 76 Claudia Phy: Aiyana Asencio M.D. Service Date: 09/27/20 Fam Phy: Interpreting Phy: Papi Jorge MD Admit Phy: Ordering Phy: Lalo Roy MD cc: ~ XR chest 1V portable HISTORY: SEPSIS COMPARISON: Chest 05/17/2020. FINDINGS: No pneumothorax. No pleural effusions. The heart remains enlarged. Diffuse interstitial thickening persists. This may be technical. No new focal lung consolidations identified. No evidence for pulmonary edema. Mild right tracheal deviation, unchanged. Fullness within the superior mediastinum likely corresponds the patient's known mediastinal lymphadenopathy. IMPRESSION: 1. No change compared to the prior study. 2. Cardiomegaly and diffuse interstitial thickening persists. 3. Mediastinal lymphadenopathy, unchanged. ACT 112: Negative or not required by law. Electronically signed by: Papi Jorge M.D. 09/27/2020 4:37 PM Dictated: 09/27/20 1635 Transcribed: 09/27/20 1635 Discharge Plan Visit Data Chief Complaint: Abnormal Labs/Diagnostic Testing Stated Complaint: DOC REF LOW BLOOD COUNT 76 ED Provider: Lalo Roy Discharge Problem: Obesity hypoventilation syndrome, Stage 3b chronic kidney disease, Hypoxia Patient Disposition: Admitted As Inpatient Discharge Instructions Interventions: ED Discharge Assessment Last Done: 09/27/20 22:49
--- NOTE | 2020-09-27 16:38 | XRay Report ---
XR chest 1V portable HISTORY: SEPSIS COMPARISON: Chest 05/17/2020. FINDINGS: No pneumothorax. No pleural effusions. The heart remains enlarged. Diffuse interstitial thi ckening persists. This may be technical. No new focal lung consolidations identified. No evidence for pulmonary edema. Mild right tracheal deviation, unchanged. Fullness within the superior mediastinum likely corresponds the patient's known mediastinal lymphadenopathy. IMPRESSION: 1. No change compared to the prior study. 2. Cardiomegaly and diffuse interstitial thickening persists. 3. Mediastinal lymphadenopathy, unchanged. ACT 112: Negative or not required by law. Electronically signed by: Papi Jorge M.D. 09/27/2020 4:37 PM
[2020-09-27 17:19] LABS: Basophils # (auto) 0.02 K/uL (0-0.2); Basophils % (auto) 0.2 %; Eosinophils # (auto) 0.25 K/uL (0-0.5); Eosinophils % (auto) 2.1 %; Hematocrit (blood only) 29.7 % (37-47); Hemoglobin 8.8 g/dL (12.0-16.0); Immature Granulocytes # (auto) 0.03 K/uL (0.00-0.02); Immature Granulocytes % (auto) 0.3 %; Lymphocytes # (auto) 2.29 K/uL (1.2-3.4); Lymphocytes % (auto) 19.6 %; Mean Corpuscular Hemoglobin 25.4 pg (25-34); Mean Corpuscular Hgb Conc 29.6 g/dL (32-36); Mean Corpuscular Volume 85.8 fL (80-100); Mean Platelet Volume 10.2 fL (7.4-10.4); Monocytes # (auto) 0.85 K/uL (0.11-0.59); Monocytes % (auto) 7.3 %; Neutrophils # (auto) 8.27 K/uL (1.4-6.5); Neutrophils % (auto) 70.5 %; Platelet Count 245 K/uL (130-400); RDW Coefficient of Variation 21.8 % (11.5-14.5); RDW Standard Deviation 67.7 fL (36.4-46.3); Red Blood Count 3.46 M/uL (4.2-5.4); White Blood Count 11.71 K/uL (4.8-10.8)
[2020-09-27 17:33] LABS: Influenza A virus by PCR Negative (Neg); Influenza B virus by PCR Negative (Neg); RSV by PCR Negative (Neg); SARS CoV2 RNA(COVID-19) InHosp NEGATIVE (Negative)
[2020-09-27 17:36] LABS: INR 1.2 (0.9-1.1); Partial Thromboplastin Ratio 0.9; Partial Thromboplastin Time 24.7 Seconds (21.0-31.0); Prothrombin Time 11.9 Seconds (9.0-12.0)
[2020-09-27 17:43] LABS: Alanine Aminotransferase 18 U/L (12-78); Albumin Level 3.3 gm/dl (3.4-5.0); Aspartate Aminotransferase 6 U/L (15-37); BUN Creatinine Ratio 25.4 (10-20); Blood Urea Nitrogen 50 mg/dl (7-18); Calcium 9.4 mg/dl (8.5-10.1); Carbon Dioxide 31 mmol/L (21-32); Chloride 102 mmol/L (98-107); Est GFR (African American) 30.2; Glucose 134 mg/dl (70-99); Magnesium 2.6 mg/dl (1.8-2.4); Potassium 3.9 mmol/L (3.5-5.1); Sodium 138 mmol/L (136-145)
[2020-09-27 17:48] LABS: Albumin Globulin Ratio 0.7 (0.9-2); Alkaline Phosphatase 87 U/L (45-117); Bilirubin,Total 0.6 mg/dl (0.2-1); Creatine Kinase 53 U/L (26-192); Creatine Kinase MB < 1.0 ng/ml (0.5-3.6); Globulin 4.7 gm/dl (2.5-4.0); NT Pro B Type Natriuretic Pept 270 pg/ml (0-900); Troponin I < 0.015 ng/ml (0-0.045)
[2020-09-27] MEDS ORDERED: traMADol HCL 50 MG TABLET PO STA (17:53)
[2020-09-27 17:54] LABS: Anisocytosis Present; Hypochromasia Present
--- NOTE | 2020-09-27 21:21 | History & Physical Report ---
Date of Service September 27, 2020 Assessment & Plan (1) Shortness of breath: This does not appear to be cardiac or COPD exacerbation related at this time - Patient appears euvolemic with chronic lymphedema - Normal WBC, no change in sputum production, no Radiologic changes, no increase in cough or inhaler use, not conversationally dyspneic or dyspenic with position changes - Dyspneic with exertion- normal troponin and ECG - Anemia most likely cause- TIBC, FE, FE sat pending (2) Anemia: HGB 8.8 on admission- - Patient last iron infusion reported last week - Baseline ~9.5 - Transfuse 1u PRBC for symptomatic anemia - HEME/ONC consult for morning continuity and follow up (3) Obesity hypoventilation syndrome: Patient with morbid obesity and restrictive lung disease - Continue with challenging weight loss and diet education - Continue home inhaler therapy as home - CPAP/BIPAP as tolerated at bedtime, CPAP 12-14 or BIPAP 14/6 - SPO2 Goal 92% - on chronic 3lNC at home (4) CAD S/P percutaneous coronary angioplasty: symptomatic anemia with coronary disease, transfuse 1 unit PRBC - Continue home statin rosuvastatin 20 mg. (5) Hypertension: Well controlled as outpatient - Continue Losartan - Continue ARB (6) Diabetes: Glycemic control pharmacy - goal 120-180 - HGB a1c pending- Jul 30. - Obesity, CAD, CKD risk factors worseining morbidity. (7) Stage 3b chronic kidney disease: As above - control BP, weight loss, glucose control History of Present Illness Primary Care Provider: Aiyana Asencio MD 64 YOF with past medical history of morbid obesity, CKD III, DMII with insulin, HTN, CAD, COPD, STEWART, Lymphedema, Thyroid Cancer with lobe resection, iron deficient anemia, hypothyroidism, diabetic neuropathy. Patient came to the emergency room today escorted by her . Chief complaint is SOB at rest and with activity. Patient has noticed this getting worse over the past 3 weeks. She normally feels like this "when my blood counts are low". She notes that walking greatly makes her dyspneic and is associated afterwards with blue coloring of her nailbeds. She denies any association with chest pain, n/v, pa lpitations, cough, or generalized fatigue. The patient is on 3l NC chronic at home. She continues use of her CPAP and her inhalers for her STEWART and COPD. She has not increased her use of CHRISTO because her symptoms aren't "associated with wheezing or coughing". In the emergency room she had a normal troponin and normal ECG and unchanged CXR, per report patient deaturated to 77% while ambulating was given solumederol and magnesium, normal lactate with blood and urine cultures pending. Patient will be observed, telemetry monitoring, type and screen with possible transfusion of PRBC. Allergies Allergy/AdvReac Type Severity Reaction Status Date / Time Iodinated Contrast Media Allergy Severe Hives and Verified 09/27/20 18:24 kidney complications iodine Allergy Severe Hives and Verified 09/27/20 18:24 kidney complications shellfish derived Allergy Severe Anaphylaxis Verified 09/27/20 18:24 /Hives sulfite Allergy Severe HIVES AND Verified 09/27/20 18:24 THROAT CLOSES Home Medications Medication Instructions Recorded Confirmed Type fluticasone propionate [24 Hour 2 spray INTRANASAL DAILY PRN 03/25/18 09/27/20 History Allergy Relief] levalbuterol tartrate [Xopenex HFA] 2 inh INHALATION Q4H PRN 06/25/18 09/27/20 History insulin regular hum U-500 conc 100 units SUBCUT QAM 08/16/18 09/27/20 History insulin regular hum U-500 conc 120 units SUBCUT QAM 08/16/18 09/27/20 History levothyroxine 88 mcg PO QAM 10/25/18 09/27/20 History liothyronine 5 mcg PO HS 02/26/19 09/27/20 History rosuvastatin 20 mg PO HS 02/26/19 09/27/20 History furosemide 20 mg tablet 40 mg PO QAM #30 tab 06/02/19 09/27/20 History fluticasone propion-salmeterol 1 puff INHALATION BID 05/17/20 09/27/20 History tramadol 50 mg PO Q6H PRN 05/17/20 09/27/20 History ergocalciferol (vitamin D2) 1,250 50,000 unit PO WEEKLY #12 cap 08/12/20 09/27/20 Rx mcg (50,000 unit) capsule losartan 100 mg tablet 100 mg PO QAM #90 tab 08/12/20 09/27/20 Rx amlodipine 2.5 mg PO QAM 09/27/20 09/27/20 History montelukast 10 mg PO HS 09/27/20 09/27/20 History Past Med/Surg History Medical History (Updated 09/28/20 @ 15:17 by Lalo Roy MD) Acute respiratory failure with hypoxia Anemia Breathlessness CAD S/P percutaneous coronary angioplasty Chronic respiratory failure 1 to 2 L oxygen Diabetes Diverticulitis Dyspnea GERD (gastroesophageal reflux disease) Hypertension Morbid obesity Morbid obesity due to excess calories Obesity hypoventilation syndrome Proteinuria Secondary pulmonary hypertension SOB (shortness of breath) Stage 3b chronic kidney disease Thyroid cancer Vitamin D deficiency Surgical History H/O endoscopy H/O partial thyroidectomy History of colonoscopy History of percutaneous coronary intervention Family History Other Diabetes Heart disease No pertinent family history Social History Smoking Status: Never smoker Second Hand Exposure: No; Hx Alcohol Use: No Hx Substance Use: No Preferred Language: Polish 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 Ability: Effective Porcelain Enamel Installer Required: No Beliefs That Will Affect Care: None marital status: Current Living Situation: Spouse Current Living Situation Comment: Other Information That Helps Us Care for You: No Feels Safe at Home: Yes Safety Concerns: Feels Safe At This Time Assistive Devices: Glasses and Walker Assistive Devices Comment: motorized, walker Review of Systems Review of Systems: REVIEW OF SYSTEMS: Constitutional: No fever, sweats or chills Eyes: No diplopia, no worsening or blurred vision ENT: normal hearing, no trouble swallowing Respiratory: (+) dyspnea, No change in cough, sputum production Cardiovascular: No chest pain, tightness or palpitations, no dizziness or light headedness Abdomen: No pain, nausea, vomiting, diarrhea or constipation Musculoskeletal: No joint pain, calf pain, swelling Neurologic: No weakness, numbness/tingling, or balance problems Psychiatric: No anxiety or depression Skin: (+) lymphedema to bilateral lower extremities, No rash or itch Physical Exam Physical Exam: PHYSICAL EXAM: General: awake, alert, no apparent distress Head: Normocephalic, atraumatic ENT: PERRL, EOMI, no pharyngeal exudate, mucous membranes moist Neuro: AAO x 3, speech clear and appropriate, strength intact bilaterally 5/5, sensation intact and equal all extremities and , no pronator drift Chest: equal rise and fall of the chest, no accessory muscle use, no heaves or thirlls, Clear to auscultation, on room air, Cardiac: Regular rate and rhythm, telemetry reviewed, skin warm dry, cap refill <3 seconds, peripheral pules +2 no JVD, no murmur, lymphedema to bilateral lower extremities mid calf on both legs and posterior legs to mid thigh. GI: NABS x 4 quadrants, soft, nontender to palpation, no rebound, guarding or tenderness : Spontaneously voiding, no pain, no CVA tenderness, Extremities: as above, calfs nontender to palpation Psych: Normal mood and affect Skin: dry scaly lower extremities no erythema Results & Data Results & Data ([facility]) Vital Signs (Past 12 Hours) Vital Signs Temp Pulse Pulse Pulse Pulse Pulse Resp 09/27/20 18:57 80 18 09/27/20 17:52 18 09/27/20 17:49 108 H 98 H 90 09/27/20 17:22 18 09/27/20 16:21 91 H 18 09/27/20 15:52 90 18 09/27/20 15:15 36.1 C L 93 H 20 Resp Resp Resp BP BP Pulse Ox Pulse Ox 09/27/20 18:57 133/71 94 09/27/20 17:52 94 09/27/20 17:49 26 H 20 22 76 L 09/27/20 17:22 92 09/27/20 16:21 97 09/27/20 15:52 94 09/27/20 15:15 158/71 H 98 Pulse Ox Pulse Ox 09/27/20 18:57 09/27/20 17:52 09/27/20 17:49 90 94 09/27/20 17:22 09/27/20 16:21 09/27/20 15:52 09/27/20 15:15 Laboratory Results Abnormal lab results 09/27/20 09/27/20 09/27/20 Range/Units 17:09 17:09 17:09 WBC 11.71 H (4.8-10.8) K/uL RBC 3.46 L (4.2-5.4) M/uL Hgb 8.8 L (12.0-16.0) g/dL Hct 29.7 L (37-47) % MCHC 29.6 L (32-36) g/dL RDW Std Deviation 67.7 H (36.4-46.3) fL RDW Coeff of Cherelle 21.8 H (11.5-14.5) % Neut # (Auto) 8.27 H (1.4-6.5) K/uL Hernando # (Auto) 0.85 H (0.11-0.59) K/uL Immature Gran # (Auto) 0.03 H (0.00-0.02) K/uL INR 1.2 H (0.9-1.1) BUN 50 H (7-18) mg/dl Creatinine 1.98 H (0.6-1.2) mg/dl BUN/Creatinine Ratio 25.4 H (10-20) Glucose 134 H (70-99) mg/dl POC Glucose (70-99) mg/dl Magnesium 2.6 H (1.8-2.4) mg/dl AST 6 L (15-37) U/L Albumin 3.3 L (3.4-5.0) gm/dl Globulin 4.7 H (2.5-4.0) gm/dl Albumin/Globulin Ratio 0.7 L (0.9-2) /03/12 Range/Units 18:44 WBC (4.8-10.8) K/uL RBC (4.2-5.4) M/uL Hgb (12.0-16.0) g/dL Hct (37-47) % MCHC (32-36) g/dL RDW Std Deviation (36.4-46.3) fL RDW Coeff of Cheerlle (11.5-14.5) % Neut # (Auto) (1.4-6.5) K/uL Hernando # (Auto) (0.11-0.59) K/uL Immature Gran # (Auto) (0.00-0.02) K/uL INR (0.9-1.1) BUN (7-18) mg/dl Creatinine (0.6-1.2) mg/dl BUN/Creatinine Ratio (10-20) Glucose (70-99) mg/dl POC Glucose 127 H (70-99) mg/dl Magnesium (1.8-2.4) mg/dl AST (15-37) U/L Albumin (3.4-5.0) gm/dl Globulin (2.5-4.0) gm/dl Albumin/Globulin Ratio (0.9-2) Diagnostic Findings XR chest 1V portable HISTORY: SEPSIS COMPARISON: Chest 05/17/2020. FINDINGS: No pneumothorax. No pleural effusions. The heart remains enlarged. Diffuse interstitial thickening persists. This may be technical. No new focal lung consolidations identified. No evidence for pulmonary edema. Mild right tracheal deviation, unchanged. Fullness within the superior mediastinum likely corresponds the patient's known mediastinal lymphadenopathy. IMPRESSION: 1. No change compared to the prior study. 2. Cardiomegaly and diffuse interstitial thickening persists. 3. Mediastinal lymphadenopathy, unchanged. Medications Administered Discontinued Medications Magnesium Sulfate/Dextrose (Magnesium Sulfate / D5w) 1 gm in 100 mls @ 100 mls/hr IV NOW STA Stop: 09/27/20 17:04 Last Infusion: 09/27/20 20:12 Dose: 0 mls/hr Documented by: [id number] Admin: 09/27/20 17:36 Dose: 100 mls/hr Documented by: [id number] Levalbuterol HCl (Levalbuterol Hcl 1.25 Mg/3 Ml Neb) 1.25 mg NEB NOW STA Stop: 09/27/20 15:53 Last Admin: 09/27/20 16:15 Dose: 1.25 mg Documented by: [id number] Methylprednisolone (Methylprednisolone 125 Mg/2 Ml Vial) 125 mg IV NOW STA Stop: 09/27/20 16:05 Last Admin: 09/27/20 17:36 Dose: 125 mg Documented by: [id number] Tramadol HCl (Tramadol Hcl 50 Mg Tablet) 50 mg PO NOW STA Stop: 09/27/20 17:54 Last Admin: 09/27/20 19:14 Dose: 50 mg Documented by: [id number] ECG Additional Comments: poor quality ECG. NSR no acute changes. Code Status & VTE Plan Code Status Full code DVT: heparin sub q with SCDs Supervising Physician Co-Signing Physician Notes Attending addendum: I have physically seen this patient, have supervised the ABDI's activities, and agree with the H&P unless as otherwise noted. Assessment and Plan: Anemia/shortness of breath/high-output CHF- Transfusing 1 unit PRBCs this evening Give Lasix 40 mg IV following transfusion Repeat H&H in a.m. Needs coordination with IV iron infusions and outpatient Procrit administration, which reportedly had been stopped [address] Bear Obesity hypoventilation syndrome- CPAP/BiPAP at bedtime as needed Continue 3 L cannula at bedtime as needed Remaining orders and notations as noted PG Care Time/CCT Total # of Minutes Spent Total Time Spent with Patient: Total time spent is greater than 50% in coordination of care (as documented) at patient's floor/unit and/or counseling patient: Coding Level of Care Code 54050 Initial Inpt Care Lvl 3 Diagnoses Shortness of breath R06.02 Anemia D64.9 Anemia type: unspecified type Obesity hypoventilation syndrome E66.2 CAD S/P percutaneous coronary angioplasty I25.10; Z98.61 Hypertension I10 Hypertension type: essential hypertension Diabetes E11.9; Z79.4 Diabetes mellitus complication status: without complication Diabetes mellitus mcc insulin use: with watcher automat long goods use Diabetes mellitus type: type 2 Stage 3b chronic kidney disease N18.32 (1) Diabetes Diabetes mellitus complication status: without complication Diabetes mellitus mcc insulin use: with watcher automat long goods use Diabetes mellitus type: type 2 Qualified Code(s): E11.9 - Type 2 diabetes mellitus without complications; Z79.4 - long term acute care registered nurse (current) use of insulin (2) Anemia Anemia type: unspecified type Qualified Code(s): D64.9 - Anemia, unspecified (3) Hypertension Hypertension type: essential hypertension Qualified Code(s): I10 - Essential (primary) hypertension
[2020-09-27] MEDS ORDERED: POLYETHYLENE (MIRALAX) 17 GM PACK PO PRN (23:17)
[2020-09-27] MEDS ORDERED: DEXTROSE 50% 50 ML SYRINGE IV PRN (23:17)
[2020-09-27] MEDS ORDERED: GLUCOSE 40% GEL 15 GM TUBE PO PRN (23:17)
[2020-09-27] MEDS ORDERED: SODIUM CHLORIDE 0.9% 250 ML IV PRN (23:17)
[2020-09-27] MEDS ORDERED: ACETAMINOPHEN 325 MG TAB PO PRN (23:17)
[2020-09-27] MEDS ORDERED: GLUCAGON FOR INJ 1 MG VIAL SQ PRN (23:17)
[2020-09-27] MEDS ORDERED: ONDANSETRON INJ 2 MG/ML 2 ML VIAL IV PRN (23:17)
[2020-09-27] MEDS ORDERED: LEVALBUTEROL TARTRATE 15 GM HFA.AER.AD INH PRN (23:17)
[2020-09-27] MEDS ORDERED: GLUCOSE 10 TABS/TUBE PO PRN (23:17)
[2020-09-27] MEDS ORDERED: PATIENT'S HEIGHT AND/OR WEIGHT NEEDED STA (23:25)
[2020-09-27] MEDS ORDERED: FUROSEMIDE 20 MG in SYRINGE 0 ML IV ONE (23:45)
[2020-09-27] MEDS ORDERED: PHARMACY GLYCEMIC MGMT CONSULT PRN (23:47)
[2020-09-28] MEDS ORDERED: [UNRECOGNIZED DRUG - REMARK] SQ ONE (00:30)
[2020-09-28] MEDS: MONTELUKAST SODIUM 10 MG TABLET PO SCH ×2 (00:37→21:03)
[2020-09-28] MEDS: ROSUVASTATIN CALCIUM 20 MG TAB PO SCH ×2 (00:37→21:03)
[2020-09-28] MEDS: HEPARIN SOD 5,000 UNIT/0.5 ML VIAL SQ SCH ×4 (00:39→21:06)
[2020-09-28] MEDS: LIOTHYRONINE SODIUM 5 MCG TAB PO SCH ×3 (00:46→21:08)
[2020-09-28 04:57] LABS: Appearance Urine Clear (Clear); Bacteria Urine Automated 4+ (Negative); Bilirubin Urine Negative (Negative); Blood Urine 1+ (Negative); Color Urine Yellow; Epithelial Cell Urine Auto 0-5 /lpf (0-5); Glucose Urine UA Trace (Negative); Ketones Urine Negative (Negative); Leukocyte Esterase Urine Trace (Negative); Nitrite Urine Negative (Negative); Protein Urine 2+ (Negative); RBC Urine Automated 0-4 /hpf (0-4); Specific Gravity Urine 1.014 (1.000-1.030); Urobilinogen Urine Negative (Negative); WBC Urine Automated >30 /hpf (0-5)
[2020-09-28] MEDS: INSULIN ASPART 100 UNITS/ML 3 ML PEN SC SCH ×6 (05:10→23:33)
[2020-09-28] MEDS ORDERED: INSULIN HUMAN REGULAR PER UNIT 10 UNITS in SYRINGE 9.9 ML IV ONE (05:15)
[2020-09-28] MEDS: traMADol HCL 50 MG TABLET PO PRN ×2 (05:16→22:09)
[2020-09-28] MEDS: LEVOTHYROXINE SODIUM 88 MCG TABLET PO SCH (05:46)
[2020-09-28 06:25] LABS: Eosinophils # (auto) 0.01 K/uL (0-0.5); Eosinophils % (auto) 0.1 %; Hematocrit (blood only) 31.5 % (37-47); Hemoglobin 9.8 g/dL (12.0-16.0); Immature Granulocytes # (auto) 0.02 K/uL (0.00-0.02); Immature Granulocytes % (auto) 0.2 %; Lymphocytes # (auto) 0.82 K/uL (1.2-3.4); Lymphocytes % (auto) 6.9 %; Mean Corpuscular Hemoglobin 26.1 pg (25-34); Mean Corpuscular Hgb Conc 31.1 g/dL (32-36); Mean Corpuscular Volume 83.8 fL (80-100); Mean Platelet Volume 10.6 fL (7.4-10.4); Monocytes # (auto) 0.01 K/uL (0.11-0.59); Monocytes % (auto) 0.1 %; Neutrophils # (auto) 11.05 K/uL (1.4-6.5); Neutrophils % (auto) 92.7 %; Platelet Count 277 K/uL (130-400); RDW Coefficient of Variation 20.7 % (11.5-14.5); RDW Standard Deviation 64.1 fL (36.4-46.3); Red Blood Count 3.76 M/uL (4.2-5.4); White Blood Count 11.91 K/uL (4.8-10.8)
[2020-09-28 06:58] LABS: Creatinine Clr Calc Pharmacy 44.2 ml/min; Est GFR (African American) 32.6; Est GFR (Non-African American) 28.1; Magnesium 2.8 mg/dl (1.8-2.4); Potassium 4.1 mmol/L (3.5-5.1)
[2020-09-28 08:02] LABS: Anisocytosis Present
--- NOTE | 2020-09-28 08:10 | Hospitalist Progress Note ---
Date of Service September 28, 2020 Assessment & Plan (1) Shortness of breath: This pt has a history of similar complaints in the past does have some chronic lung changes - Patient suffers with chronic lymphedema, she feels that she has had increased fluid retention lately and self increased her home diuretics with some improvement -Echo from fall 2019 with mild pulmonary htn, cpap compliance has been good (86%) on last check - Dyspneic with exertion- normal troponin and ECG - Anemia also influincine- TIBC, FE, FE sat are within normal limits but low, will have a dose of venofer will attempt to diurese carefully in face of ckd 3 history (2) Anemia: HGB 8.8 on admission- transfused one unit-> 9.8 -iron infusion with iron level only low normal - Baseline ~9.5 - (3) Obesity hypoventilation syndrome: Patient with morbid obesity and restrictive lung disease - Continue with challenging weight loss and diet education - Continue home inhaler therapy as home - CPAP/BIPAP as tolerated at bedtime, CPAP 12-14 or BIPAP 14/6 - SPO2 Goal 92% - on chronic 3lNC at home (4) CAD S/P percutaneous coronary angioplasty: symptomatic anemia with coronary disease, transfuse 1 unit PRBC - Continue home statin rosuvastatin 20 mg. (5) Hypertension: Well controlled as outpatient - Continue Losartan - Continue ARB (6) Diabetes: Glycemic control pharmacy - goal 120-180 - HGB a1c - Jul 30. - Obesity, CAD, CKD risk factors worseining morbidity. (7) Stage 3b chronic kidney disease: As above - control BP, weight loss, glucose control Admission and Anticipated Discharge Date Admission Date: September 27, 2020 Subjective pt feels somewhat improved from admission , feels that she was improving, she did self increase lasix at home with some improvement Review of Systems Review of Systems: Mild distress and fatigue no headache, blurry or double vision no speech or swallowing issues no chest pain, pressure or palpitations dyspnea on exertion, no abdominal pain, nausea or vomiting, diarrhea or constipation no dysuria, hematuria or frequency no focal joint pain significant peripheral swelling no back pain, CVA tenderness or radicular pain no bruising, bleeding or rashes no focal signs of weakness or numbness or altered sensation no complaints of anxiety or depression.. Physical Exam Physical Exam: The patient appeared well nourished and normally developed. Vital signs as documented. Head exam is normocephalic atraumatic no scleral icterus Neck is without thyromegaly, or carotid bruits. Lungs are diminished at the bases no focal loss of breath sounds Cardiac exam, Rhythm is regular.. No murmurs, rubs or gallops. Abdominal exam reveals normal bowel sounds, soft non tender, no masses Extremities are significantly edematous and both pedal pulses are present Neurologic exam is alert and oriented, no focal loss of strength or sensation Skin is without bruises or rashes Psychologically is without concerns for anxiety or depression Results & Data Results & Data ([facility]) Vital Signs (Past 12 Hours) Vital Signs Temp Pulse Pulse Resp BP BP BP 09/28/20 07:20 90 09/28/20 04:20 98.2 F 88 20 131/72 09/28/20 03:20 98.2 F 91 H 20 125/67 09/28/20 02:20 97.9 F 93 H 20 117/69 09/28/20 01:20 97.9 F 84 16 103/53 L 09/28/20 00:50 97.5 F L 88 18 169/77 H 09/28/20 00:35 98.1 F 87 18 178/70 H 09/28/20 00:20 98.1 F 87 18 170/65 H 09/28/20 00:09 20 09/27/20 23:31 91 H 09/27/20 23:18 97.9 F 91 H 150/64 H 09/27/20 22:35 86 14 143/76 H 09/27/20 21:44 91 H 18 165/104 H Pulse Ox 09/28/20 07:20 09/28/20 04:20 94 09/28/20 03:20 94 09/28/20 02:20 94 09/28/20 01:20 95 09/28/20 00:50 97 09/28/20 00:35 96 09/28/20 00:20 98 09/28/20 00:09 97 09/27/20 23:31 09/27/20 23:18 98 09/27/20 22:35 100 09/27/20 21:44 99 PG Care Time/CCT Total # of Minutes Spent Total Time Spent with Patient: Total time spent is greater than 50% in coordination of care (as documented) at patient's floor/unit and/or counseling patient: Coding Level of Care Code 37886 Subseq Hosp Care Lvl 3 Diagnoses Shortness of breath R06.02 Anemia D64.9 Anemia type: unspecified type Obesity hypoventilation syndrome E66.2 CAD S/P percutaneous coronary angioplasty I25.10; Z98.61 Hypertension I10 Hypertension type: essential hypertension Diabetes E11.9; Z79.4 Diabetes mellitus complication status: without complication Diabetes mellitus prison insulin use: with prison use Diabetes mellitus type: type 2 Stage 3b chronic kidney disease N18.32 (1) Diabetes Diabetes mellitus complication status: without complication Diabetes mellitus meterman insulin use: with prison use Diabetes mellitus type: type 2 Qualified Code(s): E11.9 - Type 2 diabetes mellitus without complications; Z79.4 - residential (current) use of insulin (2) Anemia Anemia type: unspecified type Qualified Code(s): D64.9 - Anemia, unspecified (3) Hypertension Hypertension type: essential hypertension Qualified Code(s): I10 - Essential (primary) hypertension
[2020-09-28] MEDS: FLUTICASONE/VILANTEROL 200/25MCG 14 PUFFS/INHALER INH SCH (08:39)
[2020-09-28] MEDS: amLODIPine BESYLATE 5 MG TAB PO SCH (08:39)
[2020-09-28] MEDS: LOSARTAN POTASSIUM 50 MG TAB PO SCH (08:39)
[2020-09-28] MEDS ORDERED: FUROSEMIDE 40 MG TAB PO SCH (09:00)
--- NOTE | 2020-09-28 09:03 | Consultation Report ---
DATE OF CONSULTATION: 09/28/2020 REASON FOR CONSULTATION: Anemia of chronic disease/renal insufficiency. HISTORY OF PRESENT ILLNESS: The patient is a morbidly obese 64-year-old female patient with multiple comorbid issues, well known to CCP, received both intravenous iron and erythropoietin in our clinic. She presented to the Emergency Room yesterday complaining of shortness of breath at rest and dyspnea with minimal activity. She relates symptoms worsened over the past 3 weeks. She describes feeling like this when her blood counts are low. She actually had a telephone consultation with Kelly Peoples or physician aircraft assembler back in mid October. At that time identified decreased iron levels and thus appropriately held erythropoietin while resupplementing iron. She has received 2/6 scheduled doses of Ferrlecit, she was supposed to receive a dose yesterday and ended up admitted. Chest x-ray done on admission revealed no significant findings. Clinically, the patient claims her breathing has improved. Her oxygen saturation was 77%, and she was given empiric Solu-Medrol. PAST MEDICAL HISTORY: Positive for chronic kidney disease, type 2 diabetes mellitus with associated insulin dependence, hypertension, coronary artery disease, COPD, obstructive sleep apnea, lymphedema, thyroid cancer, anemia of chronic disease/renal insufficiency. MEDICATIONS: Montelukast 10 mg p.o. at bedtime, amlodipine 2.5 mg p.o. daily, losartan 100 mg p.o. daily, vitamin D2 50,000 units p.o. weekly, tramadol 50 mg q. 6 hours p.r.n., Flonase 1 puff inhaled b.i.d., Lasix 40 mg p.o. daily, rosuvastatin 20 mg p.o. daily, Liothyronine 5 mcg p.o. at bedtime, levothyroxine 88 mcg p.o. q.a.m. regular insulin 100 units subQ q.a.m., regular Humulin insulin 120 units subQ q.a.m., levalbuterol 2 inhalations q.4 hours p.r.n. ALLERGIES: IV DYE, IODINE, SHELLFISH AND SULFITE. FAMILY HISTORY: Positive for heart disease and diabetes mellitus. SOCIAL HISTORY: Lives with her spouse. She is retired. She does not smoke, drink or use illicit substances. REVIEW OF SYSTEMS: CONSTITUTIONAL: As per HPI, most notably for shortness of breath and dyspnea on exertion. No fevers, chills or sweats. She is morbidly obese. SKIN: No rashes or lesions. Skin changes associated with lymphedema otherwise. HEENT: Negative for headaches, lightheadedness or dizziness. No acute visual or hearing deficits. No sinus symptoms, sore throat or dysphagia. LYMPH: Positive for lymphedema. CARDIAC: Positive for coronary artery disease, no angina or palpitation. PULMONARY: As per HPI. She reports no cough or hemoptysis. GASTROINTESTINAL: Negative for abdominal pain, nausea, vomiting, diarrhea or constipation, hematochezia or melena stools. GENITOURINARY: No hematuria, dysuria or urinary incontinence. MUSCULOSKELETAL: No focal muscle weakness or arthralgias. ENDOCRINE: History of thyroid cancer, hypothyroidism, currently on thyroid hormone, positive for type 2 diabetes mellitus with insulin dependence. NEUROLOGIC: Negative for seizure, stroke, or migraine headache. HEMATOLOGIC: Positive for chronic anemia. PHYSICAL EXAMINATION: GENERAL: Morbidly obese 64-year-old female. Awake, alert and appropriate, in no acute distress. VITAL SIGNS: Temperature 36.8, pulse 90, respiratory rate 20, blood pressure 131/72. SKIN: Warm, dry, noncyanotic without petechia, rash or ecchymosis. HEENT: Head is atraumatic, normocephalic. Eyes: PERRLA, EOMI. Sclerae nonicteric. No conjunctival injection. Nares are patent without rhinorrhea or discharge. Throat clear. Tongue midline. Mucous membranes are moist. NECK: Bull neck. HEART: Regular rate and rhythm. LUNGS: Distant breath sounds. Could not appreciate rales or rhonchi. ABDOMEN: Obese, soft, nontender, nondistended. Positive for bilateral lymphedema. MUSCULOSKELETAL: Strength is equal in all 4 quadrants. NEUROLOGICALLY: She is awake, alert and oriented x3. Cranial nerves are intact. LABORATORY DATA: WBC count 11,910, hemoglobin 9.8, platelet count 277,000. Sodium 137, potassium 4.1, chloride 101, carbon dioxide 29, creatinine 1.86, BUN 48, glucose 271. Magnesium mildly elevated at 2.8. IMPRESSION: 1. Anemia of chronic disease/renal insufficiency. 2. Shortness of breath, dyspnea on exertion. 3. Obesity hypoventilation syndrome. 4. History of coronary artery disease. 5. Type 2 diabetes mellitus with insulin requirement. PLAN: In summary, the patient is well known morbidly obese 64-year-old female regularly seen at [facility] for anemia of renal insufficiency/chronic disease. She last had a telephone consultation with Kelly Peoples our physician aircraft assembler on 09/06/2020. The patient was recommended Ferrlecit 125 mg IV weekly. She received 2 of the scheduled 6 doses, the third dose was scheduled yesterday when she was admitted to hospital. The patient is also on Procrit 40,000 units subQ weekly, which is currently on hold. Rationale for holding erythropoietin is replete iron stores before resumption. Couple of things to consider if she is stable to go home that is fine, she can resume fairly soon. If we anticipate she is standing for another day or two, perhaps give her iron sucrose 400 mg x2 doses on consecutive days. Thus, I would recommend cancelling rest of her Ferrlecit in the office. Her iron studies are definitely improved and thus she could actually receive a dose of erythropoietin. Apparently, she received 1 unit of packed RBCs and is definitely feeling better from an oxygenation standpoint. She has a scheduled followup at [facility]. I have no further recommendations at this time. Thank you very much for allowing me to participate in her care. ALEKS
--- NOTE | 2020-09-28 10:44 | Electrocardiogram Report ---
Test Reason : Blood Pressure : / mmHG Vent. Rate : 092 BPM Atrial Rate : 092 BPM P-R Int : 152 ms QRS Dur : 096 ms QT Int : 366 ms P-R-T Axes : 040 006 047 degrees QTc Int : 452 ms Poor data quality, interpretation may be adversely affected Normal sinus rhythm Poor R-wave progression: anterior ND vs. lead placement vs. LVH Abnormal ECG When compared with ECG of 17-MAY-2020 16:05, No significant change was found Confirmed by Kervin Hurley ([id number]) on 09/28/2020 10:44:38 AM Referred By: Melissa Camilo Confirmed By:Kervin Hurley
[2020-09-28] MEDS ORDERED: FUROSEMIDE 40 MG in SYRINGE 0 ML IV ONE (12:30)
[2020-09-28] MEDS ORDERED: IRON SUCROSE 200 MG in 0.9 % SODIUM CHLORIDE 100 ML IV ONE (13:00)
--- NOTE | 2020-09-28 13:05 | Pharmacy Report ---
Pharmacy Glycemic Short Note 2 - Date of Service September 28, 2020 - Glycemic Short BSG Results (Last 24 hours): 09/27/20 09/27/20 09/28/20 17:09 18:44 00:01 Glucose 134 H POC Glucose 127 H 233 H 09/28/20 09/28/20 09/28/20 04:57 05:59 07:53 Glucose 271 H POC Glucose 293 H 232 H 09/28/20 11:30 Glucose POC Glucose 276 H OUTPATIENT ANTIDIABETIC REGIMEN: * Humulin U-500 insulin 50 units SC breakfast and lunch, 120 units SC with dinner * HbA1c: 8.1% (08/06/20) ASSESSMENT: * EH is a 64 year old female presented to ED on 09/27/20 with shortness of breath * Patient is known to glycemic service - she is on Humulin U-500 as an outpatient and we have utilized this in the past with good success * BSGs elevated overnight, 233 and 293 mg/dL * Fasting BSG of 232 mg/dL this morning * Will use prior admission data to guide initial dosing of U-500 PLAN FOR INPATIENT GLYCEMIC CONTROL: * U-500 insulin * 50 units SC with breakfast and lunch * 50-75 units SC with dinner based on BSG * Bolus insulin * NovoLog per scale ACHS or Q6hrs while NPO * Goal Range: Low 110 mg/dL - High 140 mg/dL * Correction Factor: 20 mg/dL/unit PLAN FOR DISCHARGE: * tbd
[2020-09-28] MEDS: FUROSEMIDE 40 MG in SYRINGE 0 ML IV SCH (21:03)
--- NOTE | 2020-09-28 23:26 | Billing Data ---
Date of Service September 28, 2020 Coding Level of Care Code 00078 OBS Care - Level 3
[2020-09-29] MEDS: INSULIN ASPART 100 UNITS/ML 3 ML PEN SC SCH ×5 (03:57→21:00)
[2020-09-29] MEDS: LEVOTHYROXINE SODIUM 88 MCG TABLET PO SCH (06:28)
[2020-09-29] MEDS: HEPARIN SOD 5,000 UNIT/0.5 ML VIAL SQ SCH ×4 (06:28→20:59)
[2020-09-29] MEDS: traMADol HCL 50 MG TABLET PO PRN ×3 (06:31→19:04)
[2020-09-29 06:52] LABS: Basophils # (auto) 0.02 K/uL (0-0.2); Basophils % (auto) 0.2 %; Eosinophils # (auto) 0.02 K/uL (0-0.5); Eosinophils % (auto) 0.2 %; Hematocrit (blood only) 31.9 % (37-47); Hemoglobin 9.6 g/dL (12.0-16.0); Immature Granulocytes # (auto) 0.03 K/uL (0.00-0.02); Immature Granulocytes % (auto) 0.2 %; Lymphocytes % (auto) 15.4 %; Mean Corpuscular Hemoglobin 25.5 pg (25-34); Mean Corpuscular Hgb Conc 30.1 g/dL (32-36); Mean Corpuscular Volume 84.6 fL (80-100); Mean Platelet Volume 10.2 fL (7.4-10.4); Monocytes # (auto) 1.47 K/uL (0.11-0.59); Monocytes % (auto) 11.4 %; Neutrophils # (auto) 9.41 K/uL (1.4-6.5); Neutrophils % (auto) 72.6 %; Platelet Count 287 K/uL (130-400); RDW Coefficient of Variation 21.1 % (11.5-14.5); RDW Standard Deviation 65.6 fL (36.4-46.3); Red Blood Count 3.77 M/uL (4.2-5.4); White Blood Count 12.95 K/uL (4.8-10.8)
[2020-09-29 07:28] LABS: Anisocytosis Present; BUN Creatinine Ratio 27.3 (10-20); Calcium 9.7 mg/dl (8.5-10.1); Creatinine Clr Calc Pharmacy 40.6 ml/min; Est GFR (African American) 29.6; Est GFR (Non-African American) 25.6; Hypochromasia Present; Magnesium 2.8 mg/dl (1.8-2.4); Polychromasia 1+
[2020-09-29] MEDS: FUROSEMIDE 40 MG in SYRINGE 0 ML IV SCH (08:44)
[2020-09-29] MEDS: FLUTICASONE/VILANTEROL 200/25MCG 14 PUFFS/INHALER INH SCH (08:44)
[2020-09-29] MEDS: LOSARTAN POTASSIUM 50 MG TAB PO SCH (08:44)
[2020-09-29] MEDS: amLODIPine BESYLATE 5 MG TAB PO SCH (08:44)
[2020-09-29] MEDS ORDERED: FUROSEMIDE 40 MG in SYRINGE 0 ML IV SCH (09:00)
--- NOTE | 2020-09-29 14:22 | Pharmacy Report ---
Pharmacy Glycemic Short Note 2 - Date of Service September 29, 2020 - Glycemic Short BSG Results (Last 24 hours): 09/28/20 09/28/20 09/28/20 16:30 17:11 20:35 Glucose POC Glucose 326 H* 325 H* 315 H* 09/28/20 09/28/20 09/29/20 20:36 23:31 03:50 Glucose POC Glucose 311 H* 284 H 148 H 09/29/20 09/29/20 09/29/20 06:12 07:45 11:35 Glucose 118 H POC Glucose 122 H 144 H OUTPATIENT ANTIDIABETIC REGIMEN: * Humulin U-500 insulin 50 units SC breakfast and lunch, 120 units SC with dinner * HbA1c: 8.1% (08/06/20) ASSESSMENT: 09/30: * Patient received total 223 units of insulin yesterday: 175 units basal (U 500) + 48 units bolus. * Fasting BSG at goal today. * Pt's serum creat worsened slightly today to 2 mg/dl. Therefore, reduced U-500 insulin doses by around 20% to prevent insulin accumulation and hypoglycemia. 09/29: * EH is a 64 year old female presented to ED on 09/27/20 with shortness of breath * Patient is known to glycemic service - she is on Humulin U-500 as an outp atient and we have utilized this in the past with good success * BSGs elevated overnight, 233 and 293 mg/dL * Fasting BSG of 232 mg/dL this morning * Will use prior admission data to guide initial dosing of U-500 PLAN FOR INPATIENT GLYCEMIC CONTROL: * U-500 insulin: decreased * 40 units SC with breakfast and lunch * 60 units SC with dinner * Bolus insulin: continued * NovoLog per scale ACHS or Q6hrs while NPO * Goal Range: Low 110 mg/dL - High 140 mg/dL * Correction Factor: 12 mg/dL/unit PLAN FOR DISCHARGE: * tbd
[2020-09-29] MEDS ORDERED: HumuLIN-R U-500 35 UNITS in SYRINGE 0 ML SC ONE (18:00)
--- NOTE | 2020-09-29 18:39 | Hospitalist Progress Note ---
Date of Service September 29, 2020 Assessment & Plan (1) Shortness of breath: This pt has a history of similar complaints in the past does have some chronic lung changes - Patient suffers with chronic lymphedema, she feels that she has had increased fluid retention lately and self increased her home diuretics with some improvement -Echo from fall 2019 with mild pulmonary htn, cpap compliance has been good (86%) on last check - Dyspneic with exertion- normal troponin and ECG - Anemia also influincine- TIBC, FE, FE sat are within normal limits but low, will have a dose of venofer l attempt to diurese carefully in face of ckd 3 history has lead to improved subjective breathing but unfortuanely elevated Cr with GUMARO, return to typical home doses, start compressive devices and consider rehab (2) Anemia: HGB 8.8 on admission- transfused one unit-> 9.8 -iron infusion with iron level only low normal - Baseline ~9.5 - (3) Obesity hypoventilation syndrome: Patient with morbid obesity and restrictive lung disease - Continue with challenging weight loss and diet education - Continue home inhaler therapy as home - CPAP/BIPAP as tolerated at bedtime, CPAP 12-14 or BIPAP 14/6 - SPO2 Goal 92% - on chronic 3lNC at home (4) CAD S/P percutaneous coronary angioplasty: symptomatic anemia with coronary disease, transfuse 1 unit PRBC - Continue home statin rosuvastatin 20 mg. (5) Hypertension: Well controlled as outpatient - Continue Losartan - Continue ARB (6) Diabetes: Glycemic control pharmacy - goal 120-180 - HGB a1c - Jul 8.1 - Obesity, CAD, CKD risk factors worseining morbidity. (7) Stage 3b chronic kidney disease: As above - control BP, weight loss, glucose control Admission and Anticipated Discharge Date Admission Date: September 27, 2020 Subjective pt feels somewhat improved from admission , feels that she was improving, she did self increase lasix at home with some improvement unfortuantely did have some gumaro, will agree to have rehab evaluation due to her Review of Systems Review of Systems: Mild distress and fatigue no headache, blurry or double vision no speech or swallowing issues no chest pain, pressure or palpitations dyspnea on exertion, no abdominal pain, nausea or vomiting, diarrhea or constipation no dysuria, hematuria or frequency no focal joint pain significant peripheral swelling no back pain, CVA tenderness or radicular pain no bruising, bleeding or rashes no focal signs of weakness or numbness or altered sensation no complaints of anxiety or depression.. Physical Exam Physical Exam: The patient appeared well nourished and normally developed. Vital signs as documented. Head exam is normocephalic atraumatic no scleral icterus Neck is without thyromegaly, or carotid bruits. Lungs are diminished at the bases no focal loss of breath sounds Cardiac exam, Rhythm is regular.. No murmurs, rubs or gallops. Abdominal exam reveals normal bowel sounds, soft non tender, no masses Extremities are significantly edematous and both pedal pulses are present Neurologic exam is alert and oriented, no focal loss of strength or sensation Skin is without bruises or rashes Psychologically is without concerns for anxiety or depression Results & Data Results & Data ([facility]) Vital Signs (Past 12 Hours) Vital Signs Temp Pulse Pulse Resp BP Pulse Ox 09/29/20 15:39 97.9 F 82 20 123/73 96 09/29/20 08:09 97.9 F 80 22 146/71 H 93 09/29/20 08:00 78 18 PG Care Time/CCT Total # of Minutes Spent Total Time Spent with Patient: Total time spent is greater than 50% in coordination of care (as documented) at patient's floor/unit and/or counseling patient: Coding Level of Care Code 99965 Subseq Hosp Care Lvl 2 Diagnoses Shortness of breath R06.02 Anemia D64.9 Anemia type: unspecified type Obesity hypoventilation syndrome E66.2 CAD S/P percutaneous coronary angioplasty I25.10; Z98.61 Hypertension I10 Hypertension type: essential hypertension Diabetes E11.9; Z79.4 Diabetes mellitus complication status: without complication 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
[2020-09-29] MEDS: ROSUVASTATIN CALCIUM 20 MG TAB PO SCH (20:48)
[2020-09-29] MEDS: MONTELUKAST SODIUM 10 MG TABLET PO SCH (20:49)
[2020-09-29] MEDS: LIOTHYRONINE SODIUM 5 MCG TAB PO SCH (20:54)
[2020-09-30] MEDS: LEVOTHYROXINE SODIUM 88 MCG TABLET PO SCH (06:34)
[2020-09-30] MEDS: HEPARIN SOD 5,000 UNIT/0.5 ML VIAL SQ SCH ×3 (06:34→22:13)
[2020-09-30 06:49] LABS: Basophils # (auto) 0.03 K/uL (0-0.2); Basophils % (auto) 0.2 %; Eosinophils # (auto) 0.27 K/uL (0-0.5); Eosinophils % (auto) 2.2 %; Hematocrit (blood only) 30.4 % (37-47); Hemoglobin 9.2 g/dL (12.0-16.0); Immature Granulocytes # (auto) 0.03 K/uL (0.00-0.02); Immature Granulocytes % (auto) 0.2 %; Lymphocytes # (auto) 3.09 K/uL (1.2-3.4); Lymphocytes % (auto) 25.7 %; Mean Corpuscular Hemoglobin 25.7 pg (25-34); Mean Corpuscular Hgb Conc 30.3 g/dL (32-36); Mean Corpuscular Volume 84.9 fL (80-100); Mean Platelet Volume 9.8 fL (7.4-10.4); Monocytes # (auto) 1.29 K/uL (0.11-0.59); Monocytes % (auto) 10.7 %; Neutrophils # (auto) 7.32 K/uL (1.4-6.5); Platelet Count 254 K/uL (130-400); RDW Coefficient of Variation 21.3 % (11.5-14.5); RDW Standard Deviation 66.3 fL (36.4-46.3); Red Blood Count 3.58 M/uL (4.2-5.4); White Blood Count 12.03 K/uL (4.8-10.8)
[2020-09-30 07:18] LABS: Anisocytosis Present
[2020-09-30 07:25] LABS: BUN Creatinine Ratio 28.4 (10-20); Calcium 9.5 mg/dl (8.5-10.1); Creatinine Clr Calc Pharmacy 34.3 ml/min; Est GFR (African American) 24.2; Est GFR (Non-African American) 20.9; Magnesium 2.8 mg/dl (1.8-2.4); Potassium 3.8 mmol/L (3.5-5.1)
[2020-09-30] MEDS ORDERED: IRON SUCROSE 200 MG in 0.9 % SODIUM CHLORIDE 100 ML IV ONE (07:45)
[2020-09-30] MEDS ORDERED: EPOETIN ALFA 40,000 UNITS/ML VIAL IV ONE (07:45)
[2020-09-30] MEDS: LOSARTAN POTASSIUM 50 MG TAB PO SCH (08:26)
[2020-09-30] MEDS: amLODIPine BESYLATE 5 MG TAB PO SCH (08:26)
[2020-09-30] MEDS: traMADol HCL 50 MG TABLET PO PRN ×2 (08:26→17:26)
[2020-09-30] MEDS: INSULIN ASPART 100 UNITS/ML 3 ML PEN SC SCH ×4 (08:27→21:00)
[2020-09-30] MEDS: FLUTICASONE/VILANTEROL 200/25MCG 14 PUFFS/INHALER INH SCH (08:30)
[2020-09-30] MEDS ORDERED: EPOETIN ALFA 40,000 UNITS/ML VIAL SC ONE (09:30)
--- NOTE | 2020-09-30 13:40 | Hospitalist Progress Note ---
Date of Service September 30, 2020 Assessment & Plan (1) Shortness of breath: This pt has a history of similar complaints in the past does have some chronic lung changes - Patient suffers with chronic lymphedema, she feels that she has had increased fluid retention lately and self increased her home diuretics with some improvement -Echo from fall 2019 with mild pulmonary htn, cpap compliance has been good (86%) on last check - Dyspneic with exertion- normal troponin and ECG - Anemia also influincine- TIBC, FE, FE sat are within normal limits but low, will have a dose of venofer l attempt to diurese carefully in face of ckd 3 history has lead to improved subjective breathing but unfortuanely elevated Cr with GUMARO, return to typical home doses, start compressive devices and consider rehab (2) Anemia: HGB 8.8 on admission- transfused one unit-> 9.8 -hematology recommends second iron infusion and dose of procrit given [id number] 09/30/20 - (3) Obesity hypoventilation syndrome: Patient with morbid obesity and restrictive lung disease - Continue with challenging weight loss and diet education - Continue home inhaler therapy as home - CPAP/BIPAP as tolerated at bedtime, CPAP 12-14 or BIPAP 14/6 - SPO2 Goal 92% - on chronic 3lNC at home (4) CAD S/P percutaneous coronary angioplasty: symptomatic anemia with coronary disease, transfuse 1 unit PRBC - Continue home statin rosuvastatin 20 mg. (5) Hypertension: Well controlled as outpatient - Continue Losartan - Continue ARB watch bp after procrit (6) Diabetes: Glycemic control pharmacy - goal 120-180 - HGB a1c - Jul 8.1 - Obesity, CAD, CKD risk factors worseining morbidity. (7) Stage 3b chronic kidney disease: As above gumaro with ckd - control BP, weight loss, glucose control (8) Leg pain: pt has lymphedema and deformities that make her leg positioning change, this coupled with bakers cyst could explain her pain, last venous Doppler was difficult to interpret due to BMI of 68.7, will continue to encourage sc heparin Admission and Anticipated Discharge Date Admission Date: September 27, 2020 Subjective pt is complaining of posterior right knee pain at site of bakers cyst, she states this is her typical pain, she was on heparin but now is refusing for concerns of worsening her anemia Review of Systems Review of Systems: Mild distress and fatigue no headache, blurry or double vision no speech or swallowing issues no chest pain, pressure or palpitations dyspnea on exertion, no abdominal pain, nausea or vomiting, diarrhea or constipation no dysuria, hematuria or frequency posterior right knee pain and fullness significant peripheral swelling no back pain, CVA tenderness or radicular pain no bruising, bleeding or rashes no focal signs of weakness or numbness or altered sensation no complaints of anxiety or depression.. Physical Exam Physical Exam: The patient appeared well nourished and normally developed. Vital signs as documented. Head exam is normocephalic atraumatic no scleral icterus Neck is without thyromegaly, or carotid bruits. Lungs are diminished at the bases no focal loss of breath sounds Cardiac exam, Rhythm is regular.. No murmurs, rubs or gallops. Abdominal exam reveals normal bowel sounds, soft non tender, no masses Extremities are significantly edematous and with marked lymphedema, and both feet have good capillary refill Neurologic exam is alert and oriented, no focal loss of strength or sensation Skin is without bruises or rashes Psychologically is without concerns for anxiety or depression Results & Data Results & Data ([facility]) Vital Signs (Past 12 Hours) Vital Signs Temp Pulse Pulse Resp BP BP Pulse Ox 09/30/20 11:08 97.5 F L 87 20 117/64 92 09/30/20 08:00 86 09/30/20 07:34 97.9 F 86 20 136/69 91 09/30/20 03:00 98.6 F 86 16 126/54 L 93 PG Care Time/CCT Total # of Minutes Spent Total Time Spent with Patient: Total time spent is greater than 50% in coordination of care (as documented) at patient's floor/unit and/or counseling patient: Coding Level of Care Code 08070 Subseq Hosp Care Lvl 3 Diagnoses Shortness of breath R06.02 Anemia D64.9 Anemia type: unspecified type Obesity hypoventilation syndrome E66.2 CAD S/P percutaneous coronary angioplasty I25.10; Z98.61 Hypertension I10 Hypertension type: essential hypertension Diabetes E11.9; Z79.4 Diabetes mellitus complication status: without complication 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
[2020-09-30] MEDS: oxyCODONE HCL IR 5 MG TAB (IMMEDIATE RELEASE) PO PRN ×2 (13:46→21:15)
[2020-09-30] MEDS ORDERED: HumuLIN-R U-500 35 UNITS in SYRINGE 0 ML SC ONE (18:00)
[2020-09-30] MEDS: MONTELUKAST SODIUM 10 MG TABLET PO SCH (21:16)
[2020-09-30] MEDS: ROSUVASTATIN CALCIUM 20 MG TAB PO SCH (21:17)
[2020-09-30] MEDS: LIOTHYRONINE SODIUM 5 MCG TAB PO SCH ×2 (21:17→21:28)
[2020-09-30] MEDS: CARBOHYDRATES FOR HYPOGLYCEMIA PO PRN ×2 (23:20→23:24)
[2020-10-01] MEDS ORDERED: INSULIN ASPART 100 UNITS/ML 3 ML PEN SC SCH
[2020-10-01] MEDS: LEVOTHYROXINE SODIUM 88 MCG TABLET PO SCH (06:16)
[2020-10-01] MEDS: HEPARIN SOD 5,000 UNIT/0.5 ML VIAL SQ SCH ×4 (06:16→21:22)
[2020-10-01] MEDS: traMADol HCL 50 MG TABLET PO PRN (07:45)
[2020-10-01 07:53] LABS: BUN Creatinine Ratio 26.1 (10-20); Calcium 9.1 mg/dl (8.5-10.1); Creatinine Clr Calc Pharmacy 28.2 ml/min; Est GFR (Non-African American) 16.4; Potassium 4.1 mmol/L (3.5-5.1)
[2020-10-01] MEDS: FLUTICASONE/VILANTEROL 200/25MCG 14 PUFFS/INHALER INH SCH (08:12)
[2020-10-01] MEDS: amLODIPine BESYLATE 5 MG TAB PO SCH (08:12)
[2020-10-01] MEDS: INSULIN ASPART 100 UNITS/ML 3 ML PEN SC SCH ×4 (08:14→20:44)
[2020-10-01] MEDS ORDERED: MICONAZOLE NITRATE POWDER 43 GM EXT PRN (10:37)
--- NOTE | 2020-10-01 11:58 | Ultrasound Report ---
RENAL ULTRASOUND HISTORY: Acute kidney injury. COMPARISON: Abdomen and pelvis CT 03/25/2018. FINDINGS: Overall, suboptimal evaluation of the kidneys due to the patient's body habitus. Right kidney: 10.4 cm. No hydronephrosis. Normal corticomedullary differentiation and cortical thickn ess. Left kidney: 9.9 cm. No hydronephrosis. Normal corticomedullary differentiation and cortical thicknes s. Bladder: No bladder wall thickening. Not well-distended. The bilateral ureteral jets were not identif ied. IMPRESSION: No hydronephrosis. ACT 112: Negative or not required by law. Electronically signed by: Papi Jorge M.D. 10/01/2020 11:56 AM
--- NOTE | 2020-10-01 12:26 | Nephrology Consultation ---
Date of Consultation October 01, 2020 Assessment & Plan (1) GUMARO (acute kidney injury): Non-oliguric. Clinical presentation suggestive of renal renal physiology and possible ATN. BP and volume status currently appear acceptable. Lucy is tolerating adequate PO. Diuretics held. I would avoid IVF at this time pending additional monitoring. Repeat urine studies including FeNA requested today. Losartan has been held. Renal US requested. Medications are currently appropriate for kidney function. I adjusted rosuvastatin from 20 mg daily to 10 mg daily for kidney dysfunction. Repeat metabolic profile + CK ordered for this afternoon. I will followup with Lucy this afternoon at her request. (2) Stage 3b chronic kidney disease: Baseline creatinine 1.6-1.9 mg/dL. Attributed to DKD. Follows with Dr. Vu as outpatient. (3) Anemia: Blood counts stable. Hematology consultation reviewed. (4) Obesity hypoventilation syndrome: With right heart failure. Volume status appears acceptable, unfortunately very complicated management. (5) Hypertension: Losartan held. BP acceptable at this time. (6) Diabetes: History of Present Illness Reason for Consultation: GUMARO Requesting Physician: Isaias Johnson MD Attending Physician: Isaias Johnson MD History of Present Illness Mrs. Lucy Molina is a 64-year-old female with obesity, obesity hypoventilation syndrome, lymphedema of the lower extremities, DM, pulmonary hypertension, coronary artery disease, hypertension, and CKD III. CKD attributed to DKD. Baseline creatinine 1.6-1.9 mg/dL. Lucy follows in the nephrology clinic with Dr. Vu. Nephrology consultation requested today for worsening kidney function. I discussed the patient with Dr. Johnson this AM. The pateint's was present by phone during our conversation. Lucy was admitted to [facility] on 09/27 with symptomatic anemia. She describes s everal days of progressive shortness of breath consistent with prior episodes of acute on chronic anemia. Extensive evaluation for anemia completed in the past. Lucy follows with Dr. Bear as an outpatient. She has undergone GI evaluation, including small bowel follow through at [facility] in [place]. Lucy states that she was told there is a suspected bleeding lesion in the small bowel contributing to chronic/recurrent iron deficiency and anemia. However, she does not have melena or hematochezia. She has received PRBC transfusion support and IV iron during this admission. Symptomatically, Lucy notes significant improvement. Activity tolerance remains limited though due to some dyspnea with exertion. Blood counts have improved with therapy. Unfortunately, kidney dysfunction has been progressively worsening. Lucy notes that her urine output has declined overnight. She is reticent to take IVF's because she feels that she is retaining fluid and notes how difficult it is to mobilize fluids due to her chronic lymphedema. She follows regularly with [facility] as an outpatient for lymphedema treatments for her legs. Lucy was maintained in a slightly net negative fluid balance for the hospitalization. She is 800 ml negative per I/O's. Weight is down from 161 kg to 160 kg. BP has been acceptable. UA demonstrating 2+ protein (chronic) and 1+ blood. Urine microscopy negative for RBC's +>30 WBC and 4+ bacteria. Allergies Allergy/AdvReac Type Severity Reaction Status Date / Time Iodinated Contrast Media Allergy Severe Hives and Verified 09/27/20 18:24 kidney complications iodine Allergy Severe Hives and Verified 09/27/20 18:24 kidney complications shellfish derived Allergy Severe Anaphylaxis Verified 09/27/20 18:24 /Hives sulfite Allergy Severe HIVES AND Verified 09/27/20 18:24 THROAT CLOSES Home Medications Medication Instructions Recorded Confirmed Type fluticasone propionate [24 Hour 2 spray INTRANASAL DAILY PRN 03/25/18 09/27/20 History Allergy Relief] levalbuterol tartrate [Xopenex HFA] 2 inh INHALATION Q4H PRN 06/25/18 09/27/20 History insulin regular hum U-500 conc 100 units SUBCUT QAM 08/16/18 09/27/20 History insulin regular hum U-500 conc 120 units SUBCUT QAM 08/16/18 09/27/20 History levothyroxine 88 mcg PO QAM 10/25/18 09/27/20 History liothyronine 5 mcg PO HS 02/26/19 09/27/20 History rosuvastatin 20 mg PO HS 02/26/19 09/27/20 History furosemide 20 mg tablet 40 mg PO QAM #30 tab 06/02/19 09/27/20 History fluticasone propion-salmeterol 1 puff INHALATION BID 05/17/20 09/27/20 History tramadol 50 mg PO Q6H PRN 05/17/20 09/27/20 History ergocalciferol (vitamin D2) 1,250 50,000 unit PO WEEKLY #12 cap 08/12/20 09/27/20 Rx mcg (50,000 unit) capsule losartan 100 mg tablet 100 mg PO QAM #90 tab 08/12/20 09/27/20 Rx amlodipine 2.5 mg PO QAM 09/27/20 09/27/20 History montelukast 10 mg PO HS 09/27/20 09/27/20 History Patient History Medical History Acute respiratory failure with hypoxia Anemia Breathlessness CAD S/P percutaneous coronary angioplasty Chronic respiratory failure 1 to 2 L oxygen Diabetes Diverticulitis Dyspnea GERD (gastroesophageal reflux disease) Hypertension Morbid obesity Morbid obesity due to excess calories Obesity hypoventilation syndrome Proteinuria Secondary pulmonary hypertension SOB (shortness of breath) Stage 3b chronic kidney disease Thyroid cancer Vitamin D deficiency Surgical History H/O endoscopy H/O partial thyroidectomy History of colonoscopy History of percutaneous coronary intervention Family History Other Diabetes Heart disease No pertinent family history Social History Smoking Status: Never smoker Second Hand Exposure: No; Hx Alcohol Use: No Hx Substance Use: No Preferred Language: Luxembourgish 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: No Beliefs That Will Affect Care: None marital status: Current Living Situation: Spouse Current Living Situation Comment: Other Information That Helps Us Care for You: No Feels Safe at Home: Yes Safety Concerns: Feels Safe At This Time Assistive Devices: Glasses and Walker Assistive Devices Comment: motorized, walker Review of Systems Review of Systems: All systems reviewed & are unremarkable except as noted in HPI & below Physical Exam Constitutional: well developed and + morbidly obese; no acute distress Eyes: no scleral abnormality and no corneal abnormality ENMT: Mouth: no oral mucosal abnormality and oral mucous membranes not dry Neck: normal visual inspection and trachea midline Respiratory: normal respiratory effort Auscultation: lungs clear to auscultation bilaterally Cardiovascular: Rate/Rhythm: regular rate Heart Sounds: normal S1 and normal S2 Extremities: + edema Musculoskeletal: Extremities: no cyanosis and no clubbing Skin: normal turgor; no lesions Neurologic: Motor/Sensory: no tremor and no asterixis Psychiatric: Orientation: alert and oriented x 3 Results & Data ([facility]) Vital Signs (Past 12 Hours) Vital Signs Temp Pulse Pulse Resp BP BP Pulse Ox 10/01/20 09:29 10/01/20 07:33 87 10/01/20 07:11 36.7 C 91 H 20 129/68 91 10/01/20 03:15 37 C 88 20 109/57 L 90 Pulse Ox Pulse Ox 10/01/20 09:29 90 75 L 10/01/20 07:33 10/01/20 07:11 10/01/20 03:15 Laboratory Results Laboratory Results - last 24 hr 09/27/20 09/30/20 09/30/20 17:09 16:58 20:47 Sodium Potassium Chloride Carbon Dioxide Anion Gap BUN Creatinine Est Cr Clr Drug Dosing Est GFR ( Amer) Est GFR (Non-Af Amer) BUN/Creatinine Ratio Glucose POC Glucose 90 72 Calcium Tryptase 12.0 H 09/30/20 09/30/20 09/30/20 23:14 23:15 23:36 Sodium Potassium Chloride Carbon Dioxide Anion Gap BUN Creatinine Est Cr Clr Drug Dosing Est GFR ( Amer) Est GFR (Non-Af Amer) BUN/Creatinine Ratio Glucose POC Glucose 65 L* 66 L* 81 Calcium Tryptase 10/01/20 10/01/20 10/01/20 06:32 07:39 11:35 Sodium 136 Potassium 4.1 Chloride 100 Carbon Dioxide 30 Anion Gap 7.0 BUN 76 H Creatinine 2.91 H D Est Cr Clr Drug Dosing 28.2 Est GFR ( Amer) 19.0 Est GFR (Non-Af Amer) 16.4 BUN/Creatinine Ratio 26.1 H Glucose 162 H POC Glucose 206 H 165 H Calcium 9.1 Tryptase PG Care Time/CCT Total # of Minutes Spent Total Time Spent with Patient: Total time spent is greater than 50% in coordination of care (as documented) at patient's floor/unit and/or counseling patient: Coding Level of Care Code 99552 Inpt Consult Level 4 Diagnoses GUMARO (acute kidney injury) N17.9 Stage 3b chronic kidney disease N18.32 Anemia D64.9 Anemia type: unspecified type Obesity hypoventilation syndrome E66.2 Hypertension I10 Hypertension type: essential hypertension Diabetes E11.9; Z79.4 Diabetes mellitus complication status: without complication Diabetes mellitus [facility] use: with rn long term care use Diabetes mellitus type: type 2 (1) Diabetes Diabetes mellitus complication status: without complication Diabetes mellitus [facility] use: with [facility] Diabetes mellitus type: type 2 Qualified Code(s): E11.9 - Type 2 diabetes mellitus without complications; 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
[2020-10-01] MEDS: oxyCODONE HCL IR 5 MG TAB (IMMEDIATE RELEASE) PO PRN ×2 (13:05→19:11)
[2020-10-01] MEDS ORDERED: ERGOCALCIFEROL 50,000 UNITS 1250 MCG CAP PO ONE (14:00)
[2020-10-01 14:28] LABS: Albumin Level 3.1 gm/dl (3.4-5.0); BUN Creatinine Ratio 25.1 (10-20); Calcium 8.6 mg/dl (8.5-10.1); Creatinine Clr Calc Pharmacy 27.6 ml/min; Est GFR (African American) 18.5
[2020-10-01 14:31] LABS: Phosphorus 5.1 mg/dl (2.5-4.9)
[2020-10-01 17:01] LABS: Appearance Urine Cloudy (Clear); Bacteria Urine Automated 3+ (Negative); Bilirubin Urine Negative (Negative); Blood Urine 1+ (Negative); Color Urine Yellow; Glucose Urine UA Negative (Negative); Ketones Urine Negative (Negative); Leukocyte Esterase Urine 2+ (Negative); Nitrite Urine Negative (Negative); Protein Urine 2+ (Negative); RBC Urine Automated 0-4 /hpf (0-4); Specific Gravity Urine 1.017 (1.000-1.030); Urobilinogen Urine Negative (Negative); WBC Urine Automated >30 /hpf (0-5)
[2020-10-01] MEDS ORDERED: hydrALAZINE HCL 20 MG/ML VIAL IV PRN (17:54)
--- NOTE | 2020-10-01 17:54 | Hospitalist Progress Note ---
Date of Service October 01, 2020 Assessment & Plan (1) GUMARO (acute kidney injury): Patient currently is acute kidney injury secondary to diuresis to try to help her dyspnea which is likely multifactorial influenced by anemia and also by likely some right-sided heart failure and pulmonary pretension this is likely due to the diuretic therapy currently we are holding that and her ARB there is nephrology consult a renal ultrasound was employed without evidence of overt obstructive pathology, urinalysis does not show an active sediment (2) Shortness of breath: This pt has a history of similar complaints in the past does have some chronic lung changes - Patient suffers with chronic lymphedema, she feels that she has had increased fluid retention lately and self increased her home diuretics with some improvement -Echo from fall 2019 with mild pulmonary htn, cpap compliance has been good (86%) on last check - Dyspneic with exertion- normal troponin and ECG - Anemia also influincine- TIBC, FE, FE sat are within normal limits but low, will have a dose of venofer l attempt to diurese carefully in face of ckd 3 history has lead to improved subjective breathing but unfortuanely elevated Cr with GUMARO, now holding diuretics and ARB (3) Anemia: HGB 8.8 on admission- transfused one unit-> 9.8 -hematology recommends second iron infusion and dose of procrit given [id number] 09/30/20 - (4) Obesity hypoventilation syndrome: Patient with morbid obesity and restrictive lung disease - Continue with challenging weight loss and diet education - Continue home inhaler therapy as home - CPAP/BIPAP as tolerated at bedtime, CPAP 12-14 or BIPAP 14/6 - SPO2 Goal 92% - on chronic 3lNC at home (5) CAD S/P percutaneous coronary angioplasty: symptomatic anemia with coronary disease, transfused 1 unit PRBC - Continue home statin rosuvastatin 20 mg. (6) Hypertension: Well controlled as outpatient continuing amlodipine -We will have hydralazine as needed for hypertension control watch bp after procrit (7) Diabetes: Glycemic control pharmacy - goal 120-180 - HGB a1c - Jul 30. - Obesity, CAD, CKD risk factors worseining morbidity. (8) Stage 3b chronic kidney disease: As above gumaro with ckd - control BP, weight loss, glucose control (9) Leg pain: pt has lymphedema and deformities that make her leg positioning change, this coupled with bakers cyst could explain her pain, last venous Doppler was difficult to interpret due to BMI of 68.7, will continue to encourage sc heparin Admission and Anticipated Discharge Date Admission Date: September 30, 2020 Subjective Patient still feels similar with her respiratory effort however she feels her peripheral hands are Becoming swollen with having her Lasix held for 24 hours. With escalating renal numbers her losartan was also held today and she was seen by nephrology. Who is in agreement with at this time holding her diuretics and ARB she will continue to employ her peripheral lymphedema treatment with sequential pneumatic compression device Review of Systems Review of Systems: Mild distress and fatigue no headache, blurry or double vision no speech or swallowing issues no chest pain, pressure or palpitations Baseline shortness of breath and dyspnea on exertion cough or wheezes no abdominal pain, nausea or vomiting, diarrhea or constipation no dysuria, hematuria or frequency Lower extremity focal joint pain worse so is the right knee or subjective complaints of swelling no back pain, CVA tenderness or radicular pain no bruising, bleeding or rashes chronic skin changes to lower extremities no focal signs of weakness or numbness or altered sensation no complaints of anxiety or depression.. Physical Exam Physical Exam: The patient appeared well nourished and normally developed. Vital signs as documented. Head exam is normocephalic atraumatic no scleral icterus Neck is without thyromegaly, or carotid bruits. Lungs are diminished at the bases no focal loss of breath sounds Cardiac exam, Rhythm is regular.. No murmurs, rubs or gallops. Abdominal exam reveals normal bowel sounds, soft non tender, no masses Extremities are significantly edematous and with marked lymphedema, and both feet have good capillary refill right knee is more tender with movement Neurologic exam is alert and oriented, no focal loss of strength or sensation Skin is without bruises or rashes pain is a chronic venous stasis to lower extremities Psychologically is without concerns for anxiety or depression Results & Data Results & Data ([facility]) Vital Signs (Past 12 Hours) Vital Signs Temp Pulse Pulse Resp BP Pulse Ox Pulse Ox 10/01/20 16:27 82 10/01/20 15:07 98.2 F 83 20 120/71 95 10/01/20 09:29 90 10/01/20 07:33 87 10/01/20 07:11 98.1 F 91 H 20 129/68 91 Pulse Ox 10/01/20 16:27 10/01/20 15:07 10/01/20 09:29 75 L 10/01/20 07:33 10/01/20 07:11 PG Care Time/CCT Total # of Minutes Spent Total Time Spent with Patient: Total time spent is greater than 50% in coordination of care (as documented) at patient's floor/unit and/or counseling patient: Coding Level of Care Code 96214 Subseq Hosp Care Lvl 3 Diagnoses GUMARO (acute kidney injury) N17.9 Shortness of breath R06.02 Anemia D64.9 Anemia type: unspecified type Obesity hypoventilation syndrome E66.2 CAD S/P percutaneous coronary angioplasty I25.10; Z98.61 Hypertension I10 Hypertension type: essential hypertension Diabetes E11.9; Z79.4 Diabetes mellitus complication status: without complication Diabetes mellitus drying supervisor insulin use: with drying supervisor use Diabetes mellitus type: type 2 Stage 3b chronic kidney disease N18.32 Leg pain M79.606 (1) Anemia Anemia type: unspecified type Qualified Code(s): D64.9 - Anemia, unspecified (2) Hypertension Hypertension type: essential hypertension Qualified Code(s): I10 - Essential (primary) hypertension (3) Diabetes Diabetes mellitus complication status: without complication Diabetes mellitus drying supervisor insulin use: with prison use Diabetes mellitus type: type 2 Qualified Code(s): E11.9 - Type 2 diabetes mellitus without complications; 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
[2020-10-01] MEDS ORDERED: HUMULIN R U SC ONE (18:00)
[2020-10-01] MEDS: ROSUVASTATIN CALCIUM 10 MG TAB PO SCH (20:45)
[2020-10-01] MEDS: LIOTHYRONINE SODIUM 5 MCG TAB PO SCH (20:45)
[2020-10-01] MEDS: MONTELUKAST SODIUM 10 MG TABLET PO SCH (20:45)
[2020-10-02] MEDS: LIOTHYRONINE SODIUM 5 MCG TAB PO SCH ×2 (05:49→20:03)
[2020-10-02] MEDS: HEPARIN SOD 5,000 UNIT/0.5 ML VIAL SQ SCH ×3 (05:56→21:03)
[2020-10-02] MEDS: oxyCODONE HCL IR 5 MG TAB (IMMEDIATE RELEASE) PO PRN ×2 (05:57→13:08)
[2020-10-02] MEDS: LEVOTHYROXINE SODIUM 88 MCG TABLET PO SCH (05:59)
[2020-10-02] MEDS: amLODIPine BESYLATE 5 MG TAB PO SCH (07:54)
[2020-10-02] MEDS: FLUTICASONE/VILANTEROL 200/25MCG 14 PUFFS/INHALER INH SCH (07:55)
[2020-10-02 08:02] LABS: BUN Creatinine Ratio 26.9 (10-20); Creatinine Clr Calc Pharmacy 27.6 ml/min; Est GFR (African American) 18.5; Potassium 4.1 mmol/L (3.5-5.1)
[2020-10-02] MEDS: INSULIN ASPART 100 UNITS/ML 3 ML PEN SC SCH ×4 (08:17→20:42)
--- NOTE | 2020-10-02 10:14 | Nephrology Progress Note ---
Date of Service October 02, 2020 Assessment & Plan (1) GUMARO (acute kidney injury): * Nonoliguric GUMARO due to hypoperfusion associated w/ recurrent iron deficiency anemia * Hold Losartan * 10/01 Renal US: ~ 10 cm kidneys, no hydronephrosis * FeNa 0.2% c/w dehydration or impaired renal perfusion * CPK was WNL * Recommend oral hydration, maintain Hgb > 9.0, monitor PRP (2) Stage 3b chronic kidney disease: * Baseline creatinine 1.6-1.9 mg/dL. Attributed to DKD. Follows with Dr. Vu as outpatient (3) Anemia: * Recurrent iron deficiency anemia. Suspect GI source. EGD, colonoscopy and capsule endoscopy have been inconclusive * Follows w/ Dr. Bear for outpatient iron infusions and weekly SQ Procrit. Also has h/o thyroid CA s/p partial thyroidectomy (4) Obesity hypoventilation syndrome: * Morbid obesity w/ R heart failure and B LE lymphedema make volume status difficult to assess (5) Hypertension: * Losartan held. BP acceptable at this time. Admission and Anticipated Discharge Date Admission Date: September 30, 2020 Subjective Mrs. Molina was seen & examined in her hospital room this morning. She c/o mild COOPER. She denies overt blood loss or uremic symptoms Review of Systems Constitutional: + weakness; no fever Eyes: no problem reported Ear, Nose, Mouth, Throat: no problem reported Respiratory: + dyspnea on exertion; no cough Cardiovascular: + edema (chronic LE nonpitting lymphedema); no chest pain Gastrointestinal: no abdominal pain, no diarrhea/loose stools and no blood in stools Genitourinary: no dysuria Musculoskeletal: no back pain Integumentary: no rash Neurologic: no confusion Physical Exam Constitutional: + morbidly obese Eyes: PERRL, conjunctivae normal, anicteric sclerae ENMT: external ear and nose normal, oropharynx normal Neck: trachea midline, no thyromegaly Respiratory: normal respiratory effort, lungs clear to auscultation Cardiovascular: Rate/Rhythm: regular rate and regular rhythm Extremities: + edema (wears compression stockings due to 3+ nonpitting pretibial edema) Gastrointestinal (Abdomen): Inspection/Auscultation: normal bowel sounds Percussion/Palpation: abdomen soft; abdomen nontender and no guarding Musculoskeletal: Extremities: no cyanosis Neurologic: awake; not confused Results & Data ([facility]) Vital Signs (Past 12 Hours) Vital Signs Temp Pulse Pulse Resp BP BP Pulse Ox 10/02/20 07:21 37.1 C 87 20 127/71 91 10/02/20 04:55 36.9 C 91 H 22 127/61 92 10/02/20 01:00 87 10/01/20 23:59 16 10/01/20 22:52 36.8 C 98 H 20 133/67 90 Laboratory Tests 10/01/20 10/02/20 16:50 07:01 Sodium 136 Potassium 4.1 Chloride 101 Carbon Dioxide 28 BUN 80 H Creatinine 2.97 H Glucose 139 H Urine Color Yellow Urine Appearance Cloudy A Urine pH 5.0 Ur Specific Rueter 1.017 Urine Protein 2+ H Urine Glucose (UA) Negative Urine Blood 1+ H Ur Leukocyte Esterase 2+ H Urine WBC (Auto) >30 H Urine RBC (Auto) 0-4 U Hyaline Cast (Auto) 1-5 Urine Bacteria (Auto) 3+ H FeNa 0.2% CPK 130 PG Care Time/CCT Total # of Minutes Spent Total Time Spent with Patient: Total time spent is greater than 50% in coordination of care (as documented) at patient's floor/unit and/or counseling patient: Coding Level of Care Code 72203 Subseq Hosp Care Lvl 3 Diagnoses GUMARO (acute kidney injury) N17.9 Stage 3b chronic kidney disease N18.32 Anemia D64.9 Anemia type: unspecified type Obesity hypoventilation syndrome E66.2 Hypertension I10 Hypertension type: essential hypertension (1) Anemia Anemia type: unspecified type Qualified Code(s): D64.9 - Anemia, unspecified (2) Hypertension Hypertension type: essential hypertension Qualified Code(s): I10 - Essential (primary) hypertension
--- NOTE | 2020-10-02 14:28 | Pharmacy Report ---
Pharmacy Glycemic Short Note 2 - Date of Service October 02, 2020 - Glycemic Short BSG Results (Last 24 hours): 10/01/20 10/01/20 10/01/20 13:46 16:36 20:31 Glucose 202 H POC Glucose 133 H 96 10/02/20 10/02/20 10/02/20 07:01 07:25 11:27 Glucose 139 H POC Glucose 165 H 164 H OUTPATIENT ANTIDIABETIC REGIMEN: * Humulin U-500 insulin 50 units SC breakfast and lunch, 120 units SC with dinner * HbA1c: 8.1% (08/06/20) ASSESSMENT: 10/02: * BSGs of 206, 165, 133, and 96 mg/dL yesterday * Patient received 129 units of insulin yesterday (120 units of it was U-500 and 9 units of correctional insulin) * SCr continues to trend up, 2.97 mg/dL today * BSGs reasonably controlled so far today, 165 and 164 mg/dL 09/30: * Patient received total 223 units of insulin yesterday: 175 units basal (U 500) + 48 units bolus. * Fasting BSG at goal today. * Pt's serum creat worsened slightly today to 2 mg/dl. Therefore, reduced U-500 insulin doses by around 20% to prevent insulin accumulation and hypoglycemia. 09/29: * EH is a 64 year old female presented to ED on 09/27/20 with shortness of breath * Patient is known to glycemic service - she is on Humulin U-500 as an outpatient and we have utilized this in the past with good success * BSGs elevated overnight, 233 and 293 mg/dL * Fasting BSG of 232 mg/dL this morning * Will use prior admission data to guide initial dosing of U-500 PLAN FOR INPATIENT GLYCEMIC CONTROL: * U-500 insulin: continue * 50 units with breakfast * 40 units SC with lunch * second shift pharmacist to assess dinner U-500 * Bolus insulin: continued * NovoLog per scale ACHS or Q6hrs while NPO * Goal Range: Low 110 mg/dL - High 140 mg/dL * Correction Factor: 12 mg/dL/unit PLAN FOR DISCHARGE: * tbd
--- NOTE | 2020-10-02 16:52 | Hospitalist Progress Note ---
Date of Service October 02, 2020 Assessment & Plan (1) GUMARO (acute kidney injury): Patient currently is acute kidney injury secondary to diuresis to try to help her dyspnea which is likely multifactorial influenced by anemia and also by likely some right-sided heart failure and pulmonary pretension this is likely due to the diuretic therapy currently we are holding that and her ARB there is nephrology consult a renal ultrasound was employed without evidence of overt obstructive pathology, urinalysis does not show an active sediment, recommend oral hydation and keep hgb approx 9 gm range (2) Shortness of breath: This pt has a history of similar complaints in the past does have some chronic lung changes - Patient suffers with chronic lymphedema, she feels that she has had increased fluid retention lately and self increased her home diuretics with some improvement -Echo from fall 2019 with mild pulmonary htn, cpap compliance has been good (86%) on last check - Dyspneic with exertion- normal troponin and ECG - Anemia also influincing- TIBC, FE, FE sat are within normal limits but low, will have a 2nd dose of venofer and was given procrit with hematology oversight (3) Anemia: HGB 8.8 on admission- transfused one unit-> 9.8 -hematology recommends second iron infusion and dose of procrit given [id number] 09/30/20 - (4) Obesity hypoventilation syndrome: Patient with morbid obesity and restrictive lung disease - Continue with challenging weight loss and diet education - Continue home inhaler therapy as home - CPAP/BIPAP as tolerated at bedtime, CPAP 12-14 or BIPAP 14/6 - SPO2 Goal 92% - on chronic 3lNC at home (5) CAD S/P percutaneous coronary angioplasty: symptomatic anemia with coronary disease, transfused 1 unit PRBC - Continue home statin rosuvastatin 20 mg. (6) Hypertension: Well controlled as outpatient continuing amlodipine -We will have hydralazine as needed for hypertension control bp stable after procrit (7) Diabetes: Glycemic control pharmacy - goal 120-180 - HGB a1c - 02.20 - Obesity, CAD, CKD risk factors worseining morbidity. (8) Stage 3b chronic kidney disease: As above gumaro with ckd - control BP, weight loss, glucose control (9) Leg pain: pt has lymphedema and deformities that make her leg positioning change, this coupled with bakers cyst could explain her pain, last venous Doppler was difficult to interpret due to BMI of 68.7, will continue to encourage sc heparin Admission and Anticipated Discharge Date Admission Date: September 30, 2020 Subjective pts c/o mild mtz and some subjecitve peripheral swelling, She denies overt blood loss chest pain or confusion Review of Systems Review of Systems: Mild distress and fatigue no headache, blurry or double vision no speech or swallowing issues no chest pain, pressure or palpitations Baseline shortness of breath and dyspnea on exertion cough or wheezes no abdominal pain, nausea or vomiting, diarrhea or constipation no dysuria, hematuria or frequency Lower extremity focal joint pain worse so is the right knee or subjective complaints of swelling no back pain, CVA tenderness or radicular pain no bruising, bleeding or rashes chronic skin changes to lower extremities no focal signs of weakness or numbness or altered sensation no complaints of anxiety or depression.. Physical Exam Physical Exam: The patient appeared well nourished and normally developed. Vital signs as documented. Head exam is normocephalic atraumatic no scleral icterus Neck is without thyromegaly, or carotid bruits. Lungs are diminished at the bases no focal loss of breath sounds Cardiac exam, Rhythm is regular.. No murmurs, rubs or gallops. Abdominal exam reveals normal bowel sounds, soft non tender, no masses Extremities are significantly edematous and with marked lymphedema, and both feet have good capillary refill right knee is more tender with movement Neurologic exam is alert and oriented, no focal loss of strength or sensation Skin is without bruises or rashes pain is a chronic venous stasis to lower extremities Psychologically is without concerns for anxiety or depression Results & Data Results & Data ([facility]) Vital Signs (Past 12 Hours) Vital Signs Temp Pulse Resp BP Pulse Ox 10/02/20 15:13 98.4 F 86 18 126/72 94 10/02/20 11:18 98.8 F 88 20 117/73 91 10/02/20 07:21 98.8 F 87 20 127/71 91 10/02/20 04:55 98.4 F 91 H 22 127/61 92 PG Care Time/CCT Total # of Minutes Spent Total Time Spent with Patient: Total time spent is greater than 50% in coordination of care (as documented) at patient's floor/unit and/or counseling patient: Coding Level of Care Code 44638 Subseq Hosp Care Lvl 2 Diagnoses GUMARO (acute kidney injury) N17.9 Shortness of breath R06.02 Anemia D64.9 Anemia type: unspecified type Obesity hypoventilation syndrome E66.2 CAD S/P percutaneous coronary angioplasty I25.10; Z98.61 Hypertension I10 Hypertension type: essential hypertension Diabetes E11.9; Z79.4 Diabetes mellitus complication status: without complication 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 insulin use: with assisted use Diabetes mellitus type: type 2 Stage 3b chronic kidney disease N18.32 Leg pain M79.606 (1) Anemia Anemia type: unspecified type Qualified Code(s): D64.9 - Anemia, unspecified (2) Hypertension Hypertension type: essential hypertension Qualified Code(s): I10 - Essential (primary) hypertension (3) Diabetes Diabetes mellitus complication status: without complication Diabetes mellitus assisted insulin use: with intermodal owner operator truck driver use Diabetes mellitus type: type 2 Qualified Code(s): E11.9 - Type 2 diabetes mellitus without complications; Z79.4 - dedicated intermodal truck driver (current) use of insulin
[2020-10-02] MEDS ORDERED: HUMULIN R U SC ONE (17:30)
[2020-10-02] MEDS: traMADol HCL 50 MG TABLET PO PRN (18:15)
[2020-10-02] MEDS: ROSUVASTATIN CALCIUM 10 MG TAB PO SCH (20:02)
[2020-10-02] MEDS: MONTELUKAST SODIUM 10 MG TABLET PO SCH (20:02)
[2020-10-03] MEDS: HEPARIN SOD 5,000 UNIT/0.5 ML VIAL SQ SCH ×3 (05:54→19:50)
[2020-10-03] MEDS: LEVOTHYROXINE SODIUM 88 MCG TABLET PO SCH (05:54)
[2020-10-03 05:58] LABS: Hematocrit (blood only) 30.1 % (37-47); Hemoglobin 9.2 g/dL (12.0-16.0); Mean Corpuscular Hemoglobin 26.5 pg (25-34); Mean Corpuscular Hgb Conc 30.6 g/dL (32-36); Mean Corpuscular Volume 86.7 fL (80-100); Mean Platelet Volume 10.3 fL (7.4-10.4); Platelet Count 219 K/uL (130-400); RDW Coefficient of Variation 21.2 % (11.5-14.5); RDW Standard Deviation 67.5 fL (36.4-46.3); Red Blood Count 3.47 M/uL (4.2-5.4); White Blood Count 12.21 K/uL (4.8-10.8)
[2020-10-03 06:31] LABS: BUN Creatinine Ratio 27.7 (10-20); Calcium 8.5 mg/dl (8.5-10.1); Creatinine Clr Calc Pharmacy 26.2 ml/min; Est GFR (African American) 17.4; Potassium 4.1 mmol/L (3.5-5.1)
[2020-10-03 06:41] LABS: Ferritin 358.9 ng/ml (8-388)
[2020-10-03] MEDS: FLUTICASONE/VILANTEROL 200/25MCG 14 PUFFS/INHALER INH SCH (08:03)
[2020-10-03] MEDS: amLODIPine BESYLATE 5 MG TAB PO SCH (08:04)
[2020-10-03] MEDS: INSULIN ASPART 100 UNITS/ML 3 ML PEN SC SCH ×4 (08:05→19:49)
[2020-10-03] MEDS: oxyCODONE HCL IR 5 MG TAB (IMMEDIATE RELEASE) PO PRN ×2 (08:08→17:58)
--- NOTE | 2020-10-03 08:32 | Hospitalist Progress Note ---
Date of Service October 03, 2020 Assessment & Plan (1) GUMARO (acute kidney injury): Patient currently is acute kidney injury secondary to diuresis to try to help her dyspnea which is likely multifactorial influenced by anemia and also by likely some right-sided heart failure and pulmonary pretension this is likely due to the diuretic therapy currently we are holding that and her ARB nephrology consult, s/p renal ultrasound was without evidence of overt obstructive pathology, urinalysis does not show an active sediment, Cr did rise, she has low albumin on intake will try one dose of albumin Nephrology has ordered 1 L of nss at 80 ml and hour (2) Shortness of breath: This pt has a history of similar complaints in the past does have some chronic lung changes - Patient suffers with chronic lymphedema, she feels that she has had increased fluid retention lately and self increased her home diuretics with some improvement -Echo from fall 2019 with mild pulmonary htn, cpap compliance has been good (86%) on last check - Dyspneic with exertion- normal troponin and ECG - Anemia also influincing- TIBC, FE, FE sat are within normal limits but low, will have a 3nd dose of venofer and was given procrit 09/30with hematology oversight (3) Anemia: HGB 8.8 on admission- transfused one unit-> 9.8 -hematology recommends second iron infusion and dose of procrit given [id number] 09/30/20 iron and tibc checked 10/03 and still low given 3rd dose of venofer - (4) Obesity hypoventilation syndrome: Patient with morbid obesity and restrictive lung disease - Continue with challenging weight loss and diet education - Continue home inhaler therapy as home - CPAP/BIPAP as tolerated at bedtime, CPAP 12-14 or BIPAP 14/6 - SPO2 Goal 92% - on chronic 3lNC at home (5) CAD S/P percutaneous coronary angioplasty: symptomatic anemia with coronary disease, transfused 1 unit PRBC - Continue home statin rosuvastatin 20 mg. (6) Hypertension: Well controlled as outpatient continuing amlodipine -We will have hydralazine as needed for hypertension control bp stable after procrit (7) Diabetes: Glycemic control pharmacy - goal 120-180 - HGB a1c - Jul 8.1 - Obesity, CAD, CKD risk factors worseining morbidity. (8) Stage 3b chronic kidney disease: As above gumaro with ckd - control BP, weight loss, glucose control (9) Leg pain: pt has lymphedema and deformities that make her leg positioning change, this coupled with bakers cyst could explain her pain, last venous Doppler was difficult to interpret due to BMI of 69.1, will continue to encourage sc heparin Admission and Anticipated Discharge Date Admission Date: September 30, 2020 Subjective this pt is about the same, mtz but not worse, peripheral swelling but not worse, Cr did rise and nephrology has ordered 1 L of fluid at 80 ml and hour, her albumin is also low and given one dose of albumin Review of Systems Review of Systems: Mild distress and fatigue no headache, blurry or double vision no speech or swallowing issues no chest pain, pressure or palpitations Baseline shortness of breath and dyspnea on exertion cough or wheezes no abdominal pain, nausea or vomiting, diarrhea or constipation no dysuria, hematuria or frequency Lower extremity focal joint pain worse so is the right knee or subjective complaints of swelling no back pain, CVA tenderness or radicular pain no bruising, bleeding or rashes chronic skin changes to lower extremities no focal signs of weakness or numbness or altered sensation no complaints of anxiety or depression.. Physical Exam Physical Exam: The patient appeared well nourished and normally developed. Vital signs as documented. Head exam is normocephalic atraumatic no scleral icterus Neck is without thyromegaly, or carotid bruits. Lungs are diminished at the bases no focal loss of breath sounds Cardiac exam, Rhythm is regular.. No murmurs, rubs or gallops. Abdominal exam reveals normal bowel sounds, soft non tender, no masses Extremities are significantly edematous and with marked lymphedema, and both feet have good capillary refill right knee is more tender with movement Neurologic exam is alert and oriented, no focal loss of strength or sensation Skin is without bruises or rashes pain is a chronic venous stasis to lower extremities Psychologically is without concerns for anxiety or depression Results & Data Results & Data ([facility]) Vital Signs (Past 12 Hours) Vital Signs Temp Pulse Pulse Resp BP BP Pulse Ox 10/03/20 07:19 98.6 F 89 20 114/68 91 10/03/20 03:30 98.8 F 55 L 18 102/65 94 10/03/20 00:00 85 10/02/20 23:59 18 10/02/20 23:27 98.8 F 61 22 143/53 H 94 PG Care Time/CCT Total # of Minutes Spent Total Time Spent with Patient: Total time spent is greater than 50% in coordination of care (as documented) at patient's floor/unit and/or counseling patient: Coding Level of Care Code 62606 Subseq Hosp Care Lvl 2 Diagnoses GUMARO (acute kidney injury) N17.9 Shortness of breath R06.02 Anemia D64.9 Anemia type: unspecified type Obesity hypoventilation syndrome E66.2 CAD S/P percutaneous coronary angioplasty I25.10; Z98.61 Hypertension I10 Hypertension type: essential hypertension Diabetes E11.9; Z79.4 Diabetes mellitus complication status: without complication Diabetes mellitus skilled nursing insulin use: with skilled nursing use Diabetes mellitus type: type 2 Stage 3b chronic kidney disease N18.32 Leg pain M79.606 (1) Diabetes Diabetes mellitus complication status: without complication Diabetes mellitus skilled nursing insulin use: with terminal make up operator use Diabetes mellitus type: type 2 Qualified Code(s): E11.9 - Type 2 diabetes mellitus without complications; Z79.4 - emt intermediate (current) use of insulin (2) Anemia Anemia type: unspecified type Qualified Code(s): D64.9 - Anemia, unspecified (3) Hypertension Hypertension type: essential hypertension Qualified Code(s): I10 - Essential (primary) hypertension
[2020-10-03] MEDS: ALBUMIN 25% 12.5 GM/50 ML VIAL IV SCH ×2 (08:58→09:56)
--- NOTE | 2020-10-03 10:13 | Nephrology Progress Note ---
Date of Service October 03, 2020 Assessment & Plan (1) GUMARO (acute kidney injury): * Nonoliguric GUMARO due to hypoperfusion associated w/ recurrent iron deficiency anemia * Hold Losartan * 10/01 Renal US: ~ 10 cm kidneys, no hydronephrosis * CPK was WNL * FeNa 0.2% c/w dehydration or impaired renal perfusion * Will provide 1 L 0.9NS today * Recommend maintain Hgb > 9.0, monitor PRP (2) Stage 3b chronic kidney disease: * Baseline creatinine 1.6-1.9 mg/dL. Attributed to DKD. Follows with Dr. Vu as outpatient (3) Anemia: * Recurrent iron deficiency anemia. Suspect GI source. EGD, colonoscopy and capsule endoscopy have been inconclusive * Follows w/ Dr. Bear for outpatient iron infusions and weekly SQ Procrit. Also has h/o thyroid CA s/p partial thyroidectomy * Iron stores remain low. Will schedule 1g IV Venofer (200 mg IV daily x 5 doses) (4) Obesity hypoventilation syndrome: * Morbid obesity w/ R heart failure and B LE lymphedema make volume status difficult to assess (5) Hypertension: * Losartan held. BP acceptable at this time. Admission and Anticipated Discharge Date Admission Date: September 30, 2020 Subjective Mrs. Molina was seen & examined in her hospital room this morning. She c/o mild COOPER. She denies overt blood loss or uremic symptoms Review of Systems Constitutional: + weakness; no fever Eyes: no problem reported Respiratory: + dyspnea on exertion; no cough Cardiovascular: + edema (chronic LE nonpitting lymphedema); no chest pain Gastrointestinal: no abdominal pain and no melena Physical Exam Constitutional: + morbidly obese Eyes: PERRL, conjunctivae normal, anicteric sclerae ENMT: external ear and nose normal, oropharynx normal Neck: trachea midline, no thyromegaly Respiratory: normal respiratory effort, lungs clear to auscultation Cardiovascular: Rate/Rhythm: regular rate and regular rhythm Extremities: + edema (wears compression stockings due to 3+ nonpitting pretibial edema) Gastrointestinal (Abdomen): Inspection/Auscultation: normal bowel sounds Percussion/Palpation: abdomen soft; abdomen nontender and no guarding Musculoskeletal: Extremities: no cyanosis Neurologic: awake; not confused Results & Data ([facility]) Vital Signs (Past 12 Hours) Vital Signs Temp Pulse Pulse Resp BP BP Pulse Ox 10/03/20 08:48 92 H 10/03/20 07:19 37.0 C 89 20 114/68 91 10/03/20 03:30 37.1 C 55 L 18 102/65 94 10/03/20 00:00 85 10/02/20 23:59 18 10/02/20 23:27 37.1 C 61 22 143/53 H 94 Laboratory Results Laboratory Tests 10/03/20 10/03/20 05:35 05:35 WBC 12.21 H Hgb 9.2 L Hct 30.1 L Plt Count 219 Sodium 137 Potassium 4.1 Chloride 102 Carbon Dioxide 26 BUN 87 H Creatinine 3.12 H Glucose 128 H Transferrin % Sat 13 L Ferritin 358.9 PG Care Time/CCT Total # of Minutes Spent Total Time Spent with Patient: Total time spent is greater than 50% in coordination of care (as documented) at patient's floor/unit and/or counseling patient: Coding Level of Care Code 31127 Subseq Hosp Care Lvl 3 Diagnoses GUMARO (acute kidney injury) N17.9 Stage 3b chronic kidney disease N18.32 Anemia D64.9 Anemia type: unspecified type Obesity hypoventilation syndrome E66.2 Hypertension I10 Hypertension type: essential hypertension (1) Anemia Anemia type: unspecified type Qualified Code(s): D64.9 - Anemia, unspecified (2) Hypertension Hypertension type: essential hypertension Qualified Code(s): I10 - Essential (primary) hypertension
[2020-10-03] MEDS ORDERED: SODIUM CHLORIDE 0.9% 1000ML 1,000 ML IV SCH (10:30)
[2020-10-03] MEDS ORDERED: IRON SUCROSE 200 MG in 0.9 % SODIUM CHLORIDE 100 ML IV ONE (12:00)
[2020-10-03] MEDS ORDERED: HumuLIN-R U-500 35 UNITS in SYRINGE 0 ML SC ONE (12:00)
[2020-10-03 15:57] LABS: BUN Creatinine Ratio 27.2 (10-20); Creatinine Clr Calc Pharmacy 26.7 ml/min; Est GFR (African American) 17.7; Est GFR (Non-African American) 15.3; Potassium 4.3 mmol/L (3.5-5.1)
[2020-10-03] MEDS: CARBOHYDRATES FOR HYPOGLYCEMIA PO PRN ×2 (16:43→17:03)
[2020-10-03] MEDS ORDERED: HUMULIN R U SC ONE (18:00)
[2020-10-03] MEDS: MONTELUKAST SODIUM 10 MG TABLET PO SCH (19:48)
[2020-10-03] MEDS: LIOTHYRONINE SODIUM 5 MCG TAB PO SCH (19:49)
[2020-10-03] MEDS: ROSUVASTATIN CALCIUM 10 MG TAB PO SCH (19:49)
[2020-10-04] MEDS: LEVOTHYROXINE SODIUM 88 MCG TABLET PO SCH (04:49)
[2020-10-04] MEDS: traMADol HCL 50 MG TABLET PO PRN (04:49)
[2020-10-04] MEDS: HEPARIN SOD 5,000 UNIT/0.5 ML VIAL SQ SCH ×3 (04:50→20:46)
--- NOTE | 2020-10-04 05:11 | 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 Note ---
Date of Service: October 04, 2020 Called to bedside at 0423 for concern of new onset left shoulder pain. On presentation to bedside, patient still having shoulder pain, worsened with lifting arm overhead. Full passive range of motion of shoulder and elbow. Tenderness to palpation over bicipital groove (recreating pain), and subacromial space. Patient otherwise feeling well; denies central chest pain/pressure, shortness of breath, nausea, vomiting, diaphoresis. Discussed that given recreation of pain over bicipital groove/subacromial space, likely indicates some component of arthritis within shoulder. Recommended use tramadol with continued monitoring. Resident Activity Tracking Resident Involvement: Resident Care Provided and [employer] Coverage Note Care Provided: Adult Hospital Medicine
[2020-10-04 06:46] LABS: BUN Creatinine Ratio 29.9 (10-20); Calcium 8.7 mg/dl (8.5-10.1); Creatinine Clr Calc Pharmacy 29.6 ml/min; Est GFR (African American) 19.9; Est GFR (Non-African American) 17.2; Potassium 4.1 mmol/L (3.5-5.1)
[2020-10-04] MEDS ORDERED: HumuLIN-R U-500 45 UNITS in SYRINGE 0 ML SC SCH (08:00)
[2020-10-04] MEDS: FLUTICASONE/VILANTEROL 200/25MCG 14 PUFFS/INHALER INH SCH (08:14)
[2020-10-04] MEDS: amLODIPine BESYLATE 5 MG TAB PO SCH (08:14)
[2020-10-04] MEDS: INSULIN ASPART 100 UNITS/ML 3 ML PEN SC SCH ×4 (08:15→20:47)
--- NOTE | 2020-10-04 10:10 | Nephrology Progress Note ---
Date of Service October 04, 2020 Assessment & Plan (1) GUMARO (acute kidney injury): * Nonoliguric GUMARO due to hypoperfusion associated w/ recurrent iron deficiency anemia * Hold Losartan * 10/01 Renal US: ~ 10 cm kidneys, no hydronephrosis * CPK was WNL * FeNa 0.2% c/w dehydration or impaired renal perfusion * Will provide additional 1 L 0.9NS today * Recommend maintain Hgb > 9.0, monitor PRP (2) Stage 3b chronic kidney disease: * Baseline creatinine 1.6-1.9 mg/dL. Attributed to DKD. Follows with Dr. Vu as outpatient (3) Anemia: * Recurrent iron deficiency anemia. Suspect GI source. EGD, colonoscopy and capsule endoscopy have been inconclusive * Follows w/ Dr. Bear for outpatient iron infusions and weekly SQ Procrit. Also has h/o thyroid CA s/p partial thyroidectomy * Iron stores remain low. Day 2 of 5 IV Venofer (200 mg IV) (4) Obesity hypoventilation syndrome: * Morbid obesity w/ R heart failure and B LE lymphedema make volume status difficult to assess (5) Hypertension: * Losartan held. BP acceptable at this time. Admission and Anticipated Discharge Date Admission Date: September 30, 2020 Subjective Mrs. Molina was seen & examined in her hospital room. She was tearful this morning and anxious to return home. Mrs. Molina voiced no new medical concerns. Review of Systems Constitutional: + weakness; no fever Eyes: no problem reported Respiratory: + dyspnea on exertion; no cough Cardiovascular: + edema (chronic LE nonpitting lymphedema); no chest pain Gastrointestinal: no abdominal pain and no melena Physical Exam Constitutional: + morbidly obese Eyes: PERRL, conjunctivae normal, anicteric sclerae ENMT: external ear and nose normal, oropharynx normal Neck: trachea midline, no thyromegaly Respiratory: normal respiratory effort, lungs clear to auscultation Cardiovascular: Rate/Rhythm: regular rate and regular rhythm Extremities: + edema (wears compression stockings due to 3+ nonpitting pretibial edema) Gastrointestinal (Abdomen): Inspection/Auscultation: normal bowel sounds Percussion/Palpation: abdomen soft; abdomen nontender and no guarding Musculoskeletal: Extremities: no cyanosis Neurologic: awake; not confused Results & Data ([facility]) Vital Signs (Past 12 Hours) Vital Signs Temp Pulse Pulse Resp BP BP Pulse Ox 10/04/20 07:46 36.6 C 83 16 143/68 H 92 10/04/20 07:11 90 10/04/20 04:24 81 118/55 L 94 10/04/20 04:00 36.7 C 82 20 119/62 92 10/03/20 23:00 36.8 C 95 H 20 142/63 H 93 Laboratory Tests 10/03/20 10/03/20 10/04/20 05:35 15:16 05:33 Sodium 140 Potassium 4.1 Chloride 105 Carbon Dioxide 27 BUN 83 H Creatinine 3.12 H 3.08 H 2.79 H Glucose 141 H PG Care Time/CCT Total # of Minutes Spent Total Time Spent with Patient: Total time spent is greater than 50% in coordination of care (as documented) at patient's floor/unit and/or counseling patient: Coding Level of Care Code 73286 Subseq Hosp Care Lvl 3 Diagnoses GUMARO (acute kidney injury) N17.9 Stage 3b chronic kidney disease N18.32 Anemia D64.9 Anemia type: unspecified type Obesity hypoventilation syndrome E66.2 Hypertension I10 Hypertension type: essential hypertension (1) Anemia Anemia type: unspecified type Qualified Code(s): D64.9 - Anemia, unspecified (2) Hypertension Hypertension type: essential hypertension Qualified Code(s): I10 - Essential (primary) hypertension
[2020-10-04] MEDS ORDERED: SODIUM CHLORIDE 0.9% 1000ML 1,000 ML IV SCH (10:15)
[2020-10-04] MEDS: IRON SUCROSE 200 MG in 0.9 % SODIUM CHLORIDE 100 ML IV SCH (10:31)
--- NOTE | 2020-10-04 11:02 | Pharmacy Report ---
Pharmacy Glycemic Short Note 2 - Date of Service October 04, 2020 - Glycemic Short BSG Results (Last 24 hours): 10/03/20 10/03/20 10/03/20 11:30 15:16 16:35 Glucose 69 L POC Glucose 137 H 59 L* 10/03/20 10/03/20 10/03/20 16:36 16:59 17:26 Glucose POC Glucose 58 L* 67 L* 86 10/03/20 10/03/20 10/04/20 19:42 20:25 04:16 Glucose POC Glucose 125 H 122 H 137 H 10/04/20 10/04/20 05:33 07:33 Glucose 141 H POC Glucose 181 H OUTPATIENT ANTIDIABETIC REGIMEN: * Humulin U-500 insulin 50 units SC breakfast and lunch, 120 units SC with dinner * HbA1c: 8.1% (08/06/20) ASSESSMENT: 10/04: * BSGs yesterday were: [id number] mg/dL * Received a total of 125 units of insulin: 50-40-30 of U-500 (120 units total) + 5 units correctional * Patient did become hypoglycemic prior to dinner last night. Fortunately, she was asymptomatic. She did require 30 grams of carbohydrates to improve BSG to greater than 70 mg/dL. * Believe this is secondary to large U-500 doses with breakfast and lunch that are stacking come dinner time. * Therefore, will decrease lunch U-500 dose today. * Fasting BSG of 181 mg/dL this AM - above goal range and trending upwards. * Will increase dinner U-500 dose in hopes that it will stack and provide better fasting BSG control tomorrow morning * No changes to Novolog at this time 10/02: * BSGs of 206, 165, 133, and 96 mg/dL yesterday * Patient received 129 units of insulin yesterday (120 units of it was U-500 and 9 units of correctional insulin) * SCr continues to trend up, 2.97 mg/dL today * BSGs reasonably controlled so far today, 165 and 164 mg/dL PLAN FOR INPATIENT GLYCEMIC CONTROL: * U-500 insulin - decrease lunch dose, increase dinner dose * 50 units SC with breakfast * 25 units SC with lunch * 40 units SC with dinner - second shift pharmacist to adjust as needed * Bolus insulin * NovoLog per scale ACHS or Q6hrs while NPO * Goal Range: Low 110 mg/dL - High 140 mg/dL * Correction Factor: 12 mg/dL/unit PLAN FOR DISCHARGE: * tbd
[2020-10-04] MEDS: oxyCODONE HCL IR 5 MG TAB (IMMEDIATE RELEASE) PO PRN ×2 (11:39→21:32)
[2020-10-04] MEDS ORDERED: HUMULIN R U SC SCH (12:00)
--- NOTE | 2020-10-04 16:14 | Hospitalist Progress Note ---
Date of Service October 04, 2020 Assessment & Plan (1) GUMARO (acute kidney injury): Patient currently is acute kidney injury secondary to diuresis to try to help her dyspnea which is likely multifactorial influenced by anemia and also by likely some right-sided heart failure and pulmonary pretension this is likely due to the diuretic therapy continue to hold ARB and diuretics Cr down to 2.79 from 3, baseline is closer to 1.6-1.8 repeat BMP in the morning give 1L NSS at 80cc/hr nephrology following she is making urine, electrolytes stable s/p renal ultrasound was without evidence of overt obstructive pathology, urinalysis does not show an active sediment, (2) Shortness of breath: This pt has a history of similar complaints in the past does have some chronic lung changes - Patient suffers with chronic lymphedema, she feels that she has had increased fluid retention lately and self increased her home diuretics with some improvement -Echo from fall 2019 with mild pulmonary htn, cpap compliance has been good (86%) on last check - Dyspneic with exertion- normal troponin and ECG - Anemia also influincing- TIBC, FE, FE sat are within normal limits but low, continue Venofer (3) Anemia: HGB 8.8 on admission- transfused one unit-> 9.8 -hematology recommends second iron infusion and dose of procrit given [id number] 09/30/20 iron and tibc checked 10/03 and still low, continue Venofer - (4) Obesity hypoventilation syndrome: Patient with morbid obesity and restrictive lung disease - Continue with challenging weight loss and diet education - Continue home inhaler therapy as home - CPAP/BIPAP as tolerated at bedtime, CPAP 12-14 or BIPAP 14/6 - SPO2 Goal 92% - on chronic 3lNC at home (5) CAD S/P percutaneous coronary angioplasty: symptomatic anemia with coronary disease, transfused 1 unit PRBC - Continue home statin rosuvastatin 20 mg. (6) Hypertension: Well controlled as outpatient continuing amlodipine -We will have hydralazine as needed for hypertension control bp stable after procrit (7) Diabetes: Glycemic control pharmacy - goal 120-180 - HGB a1c - 02.20 - Obesity, CAD, CKD risk factors worsening morbidity some hypoglycemia today, management per pharmacy (8) Stage 3b chronic kidney disease: As above gumaro with ckd - control BP, weight loss, glucose control (9) Leg pain: pt has lymphedema and deformities that make her leg positioning change, this coupled with bakers cyst could explain her pain, last venous Doppler was difficult to interpret due to BMI of 69.1, will continue to encourage sc heparin Admission and Anticipated Discharge Date Admission Date: September 30, 2020 Subjective patient feeling better overall, she is playing rummy this evening with her family she says her breathing is good at rest, getting dyspnea on exertion reviewed chart and labs, Cr down to 2.79 from 3.0, appreciate nephrology plan, give 1L NSS today will repeat labs tomorrow she wants to go to [facility], will apply for auth tomorrow Review of Systems Review of Systems: All systems reviewed & are unremarkable except as noted in Subjective Constitutional: + weakness; no fever, no chills, no sweats and no fatigue Respiratory: + dyspnea on exertion; no cough, no chest congestion, no dyspnea and no sputum production Cardiovascular: + edema; no chest pain and no syncope Gastrointestinal: no abdominal pain, no nausea, no vomiting, no constipation and no diarrhea/loose stools Genitourinary: no dysuria, no difficulty urinating and no urinary frequency Musculoskeletal: + muscle weakness; no back pain, no neck pain, no myalgia and no body aches Physical Exam Constitutional: well developed, + morbidly obese and comfortable; no acute distress Neck: trachea midline and + thick neck Thyroid: normal thyroid Respiratory: normal respiratory effort, lungs clear to auscultation Auscultation: + diminished lung sounds (bases) Cardiovascular: Rate/Rhythm: regular rate and regular rhythm Heart Sounds: normal S1 and normal S2; no murmur Extremities: normal capillary refill and + edema Gastrointestinal (Abdomen): normal bowel sounds, soft, nontender, no hepatosplenomegaly Musculoskeletal: no cyanosis or clubbing, extremities motor strength 5/5 Head/Neck/Chest: normocephalic, head atraumatic and neck supple Skin: no rashes, warm and dry Neurologic: patellar DTR's 2+ bilat, sensation intact and PERRL, EOMI, accommodation nl, no face palsy, no dysarthria Psychiatric: A+Ox3, euthymic affect Lymphatic: + lymphedema Results & Data Results & Data ([facility]) Vital Signs (Past 12 Hours) Vital Signs Temp Pulse Pulse Resp BP Pulse Ox 10/04/20 11:18 36.8 C 18 136/71 95 10/04/20 07:46 36.6 C 83 16 143/68 H 92 10/04/20 07:11 90 10/04/20 04:24 81 118/55 L 94 Laboratory Results Laboratory Results - last 24 hr 10/03/20 10/03/20 10/03/20 16:35 16:36 16:59 Sodium Potassium Chloride Carbon Dioxide Anion Gap BUN Creatinine Est Cr Clr Drug Dosing Est GFR ( Amer) Est GFR (Non-Af Amer) BUN/Creatinine Ratio Glucose POC Glucose 59 L* 58 L* 67 L* Calcium 10/03/20 10/03/20 10/03/20 17:26 19:42 20:25 Sodium Potassium Chloride Carbon Dioxide Anion Gap BUN Creatinine Est Cr Clr Drug Dosing Est GFR ( Amer) Est GFR (Non-Af Amer) BUN/Creatinine Ratio Glucose POC Glucose 86 125 H 122 H Calcium 10/04/20 10/04/20 10/04/20 04:16 05:33 07:33 Sodium 140 Potassium 4.1 Chloride 105 Carbon Dioxide 27 Anion Gap 8.0 BUN 83 H Creatinine 2.79 H Est Cr Clr Drug Dosing 29.6 Est GFR ( Amer) 19.9 Est GFR (Non-Af Amer) 17.2 BUN/Creatinine Ratio 29.9 H Glucose 141 H POC Glucose 137 H 181 H Calcium 8.7 10/04/20 11:32 Sodium Potassium Chloride Carbon Dioxide Anion Gap BUN Creatinine Est Cr Clr Drug Dosing Est GFR ( Amer) Est GFR (Non-Af Amer) BUN/Creatinine Ratio Glucose POC Glucose 281 H Calcium Medications Administered Current Inpatient Medications Acetaminophen (Acetaminophen 325 Mg Tab) 650 mg PO Q4H PRN PRN Reason: Pain or Fever Stop: 10/27/20 23:16 Amlodipine Besylate (Amlodipine Besylate 5 Mg Tab) 2.5 mg PO QAM [facility]ONA Stop: 10/28/20 08:59 Last Admin: 10/04/20 08:14 Dose: 2.5 mg Documented by: Dextrose (Dextrose 50% 50 Ml Syringe) 25 - 50 ml IV UD PRN; Protocol PRN Reason: Hypoglycemia Protocol Stop: 10/27/20 23:16 Fluticasone/Vilanterol (Fluticasone/Vilanterol 200/25mcg 14 Puffs/Inhaler) 1 puffs INH DAILY [facility] Stop: 10/28/20 08:59 Last Admin: 10/04/20 08:14 Dose: 1 puffs Documented by: Glucagon (Glucagon For Inj 1 Mg Vial) 1 mg SQ UD PRN; Protocol PRN Reason: Hypoglycemia Protocol Stop: 10/27/20 23:16 Glucose (Glucose 10 Tabs/Tube) 4 - 8 tabs PO UD PRN; Protocol PRN Reason: Hypoglycemia Protocol Stop: 10/27/20 23:16 Glucose (Glucose 40% Gel 15 Gm Tube) 15 - 30 gm PO UD PRN; Protocol PRN Reason: Hypoglycemia Protocol Stop: 10/27/20 23:16 Heparin Sodium (Porcine) (Heparin Sod 5,000 Unit/0.5 Ml Vial) 5,000 units SQ Q8 [facility] Stop: 10/27/20 23:16 Last Admin: 10/04/20 13:37 Dose: Not Given Documented by: Hydralazine HCl (Hydralazine Hcl 20 Mg/Ml Vial) 10 mg IV Q8 PRN PRN Reason: Blood Pressure - High Stop: 10/31/20 17:53 Sodium Chloride (Nss) 250 mls @ 15 mls/hr IV .[id number] PRN PRN Reason: For Transfusion Stop: 10/27/20 23:16 Iron Sucrose 200 mg/ Sodium (Chloride) 110 mls @ 220 mls/hr IV DAILY [facility] Stop: 10/08/20 10:29 Last Infusion: 10/04/20 11:05 Dose: Infused Documented by: Sodium Chloride (Nss 1000ml) 1,000 mls @ 100 mls/hr IV .Q10H [facility] Stop: 10/04/20 20:14 Last Admin: 10/04/20 10:31 Dose: 100 mls/hr Documented by: Insulin Human Regular 40 units (/ Syringe) 0.08 mls @ 0 mls/sec SC TODAY@1800 [facility] Stop: 10/04/20 18:01 Insulin Aspart (Insulin Aspart 100 Units/Ml 3 Ml Pen) 0 units SC ACHS [facility]; Protocol Stop: 10/28/20 04:14 Last Admin: 10/04/20 12:25 Dose: 12 units Documented by: Levalbuterol HCl (Levalbuterol Tartrate 15 Gm Hfa.Aer.Ad) 2 puffs INH Q4H PRN PRN Reason: Shortness Of Breath Or Wheezing Stop: 10/27/20 23:16 Levothyroxine Sodium (Levothyroxine Sodium 88 Mcg Tablet) [facility] Stop: 10/28/20 06:29 Last Admin: 10/04/20 04:49 Dose: 88 mcg Documented by: Liothyronine Sodium (Liothyronine Sodium 5 Mcg Tab) 5 mcg PO HS [facility] Stop: 10/27/20 23:16 Last Admin: 10/03/20 19:49 Dose: Not Given Documented by: Miconazole Nitrate (Miconazole Nitrate Powder 43 Gm) 1 appln EXT PRN PRN PRN Reason: Affected Skin Folds Stop: 10/31/20 10:36 Miscellaneous (Carbohydrates For Hypoglycemia ) 15 - 30 gm PO UD PRN PRN Reason: Hypoglycemia Protocol Stop: 10/27/20 23:16 Last Admin: 10/03/20 17:03 Dose: 15 gm Documented by: Miscellaneous Information (Pharmacy Glycemic Mgmt Consult) 1 ea N/A UD PRN PRN Reason: Consult Stop: 10/27/20 23:46 Montelukast Sodium (Montelukast Sodium 10 Mg Tablet) 10 mg PO [facility] Stop: 10/27/20 23:16 Last Admin: 10/03/20 19:48 Dose: 10 mg Documented by: Ondansetron HCl (Ondansetron Inj 2 Mg/Ml 2 Ml Vial) 4 mg IV Q6H PRN PRN Reason: Nausea Stop: 10/27/20 23:16 Oxycodone HCl (Oxycodone Hcl Ir 5 Mg Tab (Immediate Release)) 10 mg PO Q6H PRN PRN Reason: Moderate Pain Stop: 10/14/20 13:31 Last Admin: 10/04/20 11:39 Dose: 10 mg Documented by: Polyethylene Glycol (Polyethylene (Miralax) 17 Gm Pack) 17 gm PO DAILY PRN PRN Reason: Constipation Stop: 10/27/20 23:16 Rosuvastatin Calcium (Rosuvastatin Calcium 10 Mg Tab) 10 mg PO [facility] Stop: 10/31/20 20:59 Last Admin: 10/03/20 19:49 Dose: 10 mg Documented by: Tramadol HCl (Tramadol Hcl 50 Mg Tablet) 50 mg PO Q6H PRN PRN Reason: Pain Stop: 10/27/20 23:16 Last Admin: 10/04/20 04:49 Dose: 50 mg Documented by: PG Care Time/CCT Total # of Minutes Spent Total Time Spent with Patient: Total time spent is greater than 50% in coordination of care (as documented) at patient's floor/unit and/or counseling patient: Coding Level of Care Code 04287 Subseq Hosp Care Lvl 2 Diagnoses GUMARO (acute kidney injury) N17.9 Shortness of breath R06.02 Anemia D64.9 Anemia type: unspecified type Obesity hypoventilation syndrome E66.2 CAD S/P percutaneous coronary angioplasty I25.10; Z98.61 Hypertension I10 Hypertension type: essential hypertension Diabetes E11.9; Z79.4 Diabetes mellitus complication status: without complication Diabetes mellitus penitentiary insulin use: with penitentiary use Diabetes mellitus type: type 2 Stage 3b chronic kidney disease N18.32 Leg pain M79.606 (1) Diabetes Diabetes mellitus complication status: without complication Diabetes mellitus dedicated intermodal truck driver insulin use: with dedicated intermodal truck driver use Diabetes mellitus type: type 2 Qualified Code(s): E11.9 - Type 2 diabetes mellitus without complications; Z79.4 - jail (current) use of insulin (2) Anemia Anemia type: unspecified type Qualified Code(s): D64.9 - Anemia, unspecified (3) Hypertension Hypertension type: essential hypertension Qualified Code(s): I10 - Essential (primary) hypertension
[2020-10-04] MEDS: MONTELUKAST SODIUM 10 MG TABLET PO SCH (20:46)
[2020-10-04] MEDS: LIOTHYRONINE SODIUM 5 MCG TAB PO SCH (20:46)
[2020-10-04] MEDS: ROSUVASTATIN CALCIUM 10 MG TAB PO SCH (20:46)
[2020-10-05] MEDS: LEVOTHYROXINE SODIUM 88 MCG TABLET PO SCH (05:35)
[2020-10-05] MEDS: HEPARIN SOD 5,000 UNIT/0.5 ML VIAL SQ SCH ×2 (05:36→13:40)
[2020-10-05] MEDS: traMADol HCL 50 MG TABLET PO PRN (06:43)
[2020-10-05 08:02] LABS: Hematocrit (blood only) 32.9 % (37-47); Hemoglobin 9.8 g/dL (12.0-16.0); Mean Corpuscular Hemoglobin 25.9 pg (25-34); Mean Corpuscular Hgb Conc 29.8 g/dL (32-36); Mean Corpuscular Volume 86.8 fL (80-100); Platelet Count 255 K/uL (130-400); RDW Coefficient of Variation 21.5 % (11.5-14.5); RDW Standard Deviation 66.6 fL (36.4-46.3); Red Blood Count 3.79 M/uL (4.2-5.4); White Blood Count 10.94 K/uL (4.8-10.8)
[2020-10-05 08:19] LABS: BUN Creatinine Ratio 27.9 (10-20); Calcium 9.6 mg/dl (8.5-10.1); Creatinine Clr Calc Pharmacy 35.6 ml/min; Est GFR (African American) 24.8; Est GFR (Non-African American) 21.4; Potassium 4.5 mmol/L (3.5-5.1)
[2020-10-05] MEDS: amLODIPine BESYLATE 5 MG TAB PO SCH (08:48)
[2020-10-05] MEDS: FLUTICASONE/VILANTEROL 200/25MCG 14 PUFFS/INHALER INH SCH (08:48)
[2020-10-05] MEDS: INSULIN ASPART 100 UNITS/ML 3 ML PEN SC SCH ×3 (08:49→17:50)
[2020-10-05] MEDS: IRON SUCROSE 200 MG in 0.9 % SODIUM CHLORIDE 100 ML IV SCH (08:59)
--- NOTE | 2020-10-05 10:05 | Nephrology Progress Note ---
Date of Service October 05, 2020 Assessment & Plan (1) GUMARO (acute kidney injury): * Nonoliguric GUMARO due to hypoperfusion associated w/ recurrent iron deficiency anemia * Hold Losartan * 10/01 Renal US: ~ 10 cm kidneys, no hydronephrosis * CPK was WNL * FeNa 0.2% c/w dehydration or impaired renal perfusion * Patient remains clinically volume contracted. Cr is trending down w/ IVF (Cr 3.1--> 2.3). Patient declines further hydration this am * Recommend maintain Hgb > 9.0, monitor PRP (2) Stage 3b chronic kidney disease: * Baseline creatinine 1.6-1.9 mg/dL. Attributed to DKD. Follows with Dr. Vu as outpatient (3) Anemia: * Recurrent iron deficiency anemia. Suspect GI source. EGD, colonoscopy and capsule endoscopy have been inconclusive * Follows w/ Dr. Bear for outpatient iron infusions and weekly SQ Procrit. Also has h/o thyroid CA s/p partial thyroidectomy * Iron stores remain low. Day 3 of 5 IV Venofer (200 mg IV) (4) Obesity hypoventilation syndrome: * Morbid obesity w/ R heart failure and B LE lymphedema make volume status difficult to assess (5) Hypertension: * Losartan held. BP acceptable at this time. Admission and Anticipated Discharge Date Admission Date: September 30, 2020 Subjective Mrs. Molina was seen & examined in her hospital room this morning. She is anxious to leave the hospital. Mrs. Molina declines further IV fluid today due to subjective hand swelling Review of Systems Constitutional: + weakness; no fever Eyes: no problem reported Respiratory: + dyspnea on exertion; no cough Cardiovascular: + edema (chronic LE nonpitting lymphedema); no chest pain Gastrointestinal: no abdominal pain and no melena Physical Exam Constitutional: + morbidly obese Eyes: PERRL, conjunctivae normal, anicteric sclerae ENMT: external ear and nose normal, oropharynx normal Neck: trachea midline, no thyromegaly Respiratory: normal respiratory effort, lungs clear to auscultation Cardiovascular: Rate/Rhythm: regular rate and regular rhythm Extremities: + edema (wears compression stockings due to 3+ nonpitting pretibial edema) Gastrointestinal (Abdomen): Inspection/Auscultation: normal bowel sounds Percussion/Palpation: abdomen soft; abdomen nontender and no guarding Musculoskeletal: Extremities: no cyanosis (no swelling of the hands or fingers. Poor skin turgor involving the arms) Neurologic: awake; not confused Results & Data ([facility]) Vital Signs (Past 12 Hours) Vital Signs Temp Pulse Pulse Resp BP BP Pulse Ox 10/05/20 08:13 20 10/05/20 07:17 84 10/05/20 07:00 36.5 C 79 18 119/76 95 10/05/20 03:03 37.0 C 78 20 133/79 94 10/04/20 23:32 37.3 C 70 19 119/56 L 94 10/04/20 22:21 83 Laboratory Tests 10/05/20 10/05/20 07:44 07:44 WBC 10.94 H Hgb 9.8 L Hct 32.9 L Plt Count 255 Sodium 140 Potassium 4.5 Chloride 108 H Carbon Dioxide 23 BUN 65 H Creatinine 2.33 H D Glucose 147 H Calcium 9.6 PG Care Time/CCT Total # of Minutes Spent Total Time Spent with Patient: Total time spent is greater than 50% in coordination of care (as documented) at patient's floor/unit and/or counseling patient: Coding Level of Care Code 40738 Subseq Hosp Care Lvl 3 Diagnoses GUMARO (acute kidney injury) N17.9 Stage 3b chronic kidney disease N18.32 Anemia D64.9 Anemia type: unspecified type Obesity hypoventilation syndrome E66.2 Hypertension I10 Hypertension type: essential hypertension (1) Anemia Anemia type: unspecified type Qualified Code(s): D64.9 - Anemia, unspecified (2) Hypertension Hypertension type: essential hypertension Qualified Code(s): I10 - Essential (primary) hypertension
[2020-10-05] MEDS ORDERED: HUMULIN R U SC SCH (12:00)
[2020-10-05] MEDS: oxyCODONE HCL IR 5 MG TAB (IMMEDIATE RELEASE) PO PRN (12:24)
--- NOTE | 2020-10-07 08:21 | Discharge Summary ---
Date of Service October 05, 2020 Admission HPI Per Admitting Provider 64 YOF with past medical history of morbid obesity, CKD III, DMII with insulin, HTN, CAD, COPD, STEWART, Lymphedema, Thyroid Cancer with lobe resection, iron deficient anemia, hypothyroidism, diabetic neuropathy. Patient came to the emergency room today escorted by her . Chief complaint is SOB at rest and with activity. Patient has noticed this getting worse over the past 3 weeks. She normally feels like this "when my blood counts are low". She notes that walking greatly makes her dyspneic and is associated afterwards with blue coloring of her nailbeds. She denies any association with chest pain, n/v, palpitations, cough, or generalized fatigue. The patient is on 3l NC chronic at home. She continues use of her CPAP and her inhalers for her STEWART and COPD. She has not increased her use of CHRISTO because her symptoms aren't "associated with wheezing or coughing". In the emergency room she had a normal troponin and normal ECG and unchanged CXR, per report patient deaturated to 77% while ambula ting was given solumederol and magnesium, normal lactate with blood and urine cultures pending. Patient will be observed, telemetry monitoring, type and screen with possible transfusion of PRBC. Principal Diagnosis Acute kidney injury from aggressive diuresis Discharge Exam Constitutional well developed, + morbidly obese and comfortable; no acute distress Neck trachea midline and + thick neck Thyroid: normal thyroid Respiratory normal respiratory effort, lungs clear to auscultation Auscultation: + diminished lung sounds (bases) Cardiovascular Rate/Rhythm: regular rate and regular rhythm Heart Sounds: normal S1 and normal S2; no murmur Extremities: normal capillary refill and + edema Gastrointestinal (Abdomen) normal bowel sounds, soft, nontender, no hepatosplenomegaly Musculoskeletal no cyanosis or clubbing, extremities motor strength 5/5 Head/Neck/Chest: normocephalic, head atraumatic and neck supple Skin no rashes, warm and dry Neurologic patellar DTR's 2+ bilat, sensation intact and PERRL, EOMI, accommodation nl, no face palsy, no dysarthria Psychiatric A+Ox3, euthymic affect Lymphatic + lymphedema Discharge Data Allergies Allergy/AdvReac Type Severity Reaction Status Date / Time Iodinated Contrast Media Allergy Severe Hives and Verified 09/27/20 18:24 kidney complications iodine Allergy Severe Hives and Verified 09/27/20 18:24 kidney complications shellfish derived Allergy Severe Anaphylaxis Verified 09/27/20 18:24 /Hives sulfite Allergy Severe HIVES AND Verified 09/27/20 18:24 THROAT CLOSES Consultations 09/27/20 17:58 ED Decision to Admit Stat 09/27/20 23:17 Consult Hematology Stat 10/01/20 08:06 Consult Nephrology Routine Ordered Studies 10/01/20 11:00 US renal/blad retro comp Routine Hospital Course (1) GUMARO (acute kidney injury): Patient currently is acute kidney injury secondary to diuresis to try to help her dyspnea which is likely multifactorial influenced by anemia and also by likely some right-sided heart failure and pulmonary pretension this is likely due to the diuretic therapy continue to hold ARB and diuretics Cr down to 2.3 from 3, baseline is closer to 1.6-1.8 nephrology following she is making urine, electrolytes stable s/p renal ultrasound was without evidence of overt obstructive pathology, urinalysis does not show an active sediment stay hydrated, difficult because she has significant lymphedema so cannot determine volume status follow BMP at [facility], refer for follow up with nephrology (2) Shortness of breath: This pt has a history of similar complaints in the past does have some chronic lung changes - Patient suffers with chronic lymphedema, she feels that she has had increased fluid retention lately and self increased her home diuretics with some improvement -Echo from fall 2019 with mild pulmonary htn, cpap compliance has been good (86%) on last check - Dyspneic with exertion- normal troponin and ECG - Anemia also influincing- TIBC, FE, FE sat are within normal limits but low, continue Venofer (3) Anemia: HGB 8.8 on admission- transfused one unit-> 9.8 -hematology recommends second iron infusion and dose of procrit given [id number] 09/30/20 iron and tibc checked 10/03 and still low, continue Venofer received 4 days of Venofer while here follow up with Dr. Bear again for Procrit (4) Obesity hypoventilation syndrome: Patient with morbid obesity and restrictive lung disease - Continue with challenging weight loss and diet education - Continue home inhaler therapy as home - CPAP/BIPAP as tolerated at bedtime, CPAP 12-14 or BIPAP 14/6 - SPO2 Goal 92% - on chronic 3lNC at home (5) CAD S/P percutaneous coronary angioplasty: symptomatic anemia with coronary disease, transfused 1 unit PRBC - Continue home statin rosuvastatin 20 mg. (6) Hypertension: Well controlled as outpatient continuing amlodipine -We will have hydralazine as needed for hypertension control bp stable after procrit (7) Diabetes: Glycemic control pharmacy - goal 120-180 - HGB a1c - Jul 30. - Obesity, CAD, CKD risk factors worsening morbidity (8) Stage 3b chronic kidney disease: As above gumaro with ckd - control BP, weight loss, glucose control (9) Leg pain: pt has lymphedema and deformities that make her leg positioning change, this coupled with bakers cyst could explain her pain, last venous Doppler was difficult to interpret due to BMI of 69.1, will continue to encourage sc heparin Total Time Total Time Spent Total Time Spent (In Minutes): 32 Total Time Includes: Examination of the Patient, Discharge Planning, Medication Reconciliation and 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 With Other Providers (nephrology) Discharge Plan Discharge Items Patient Disposition: Transfer Inpatient Rehab Fac Reason For Visit: SHORTNESS OF BREATH Discharge Diagnosis: exertional dyspnea due to pulmonary hypertension acute kidney injury Condition on Discharge: Good Goals: follow renal function improve strength and mobility Activity: Resume your previous activity Non-emergency contact: Primary Care Provider Call non-emergency contact if: you have any medication questions and your symptoms worsen Follow-up/Referrals: Ailyn Vu MD [Physician] - (2 weeks) Aiyana Asencio MD [Primary Care Provider] - (one week after discharge from rehab) Diet: Carb Consistent or DM2 and Low Sodium (2gm) Addtl Attending Provider Instructions: Medications: - HYDRALAZINE: 25mg twice a day, can increase to 50mg BID if BP elevated - LOSARTAN and LASIX: continue to hold these until renal function back to normal Acute kidney injury: due to aggressive diuresis, lasix and losartan have been held, received some fluids past two days Cr is down to 2.3 today, improving each day, BUN down to 60's, was as high as 80's a few days ago check BMP twice a week, would recommend checking Sunday and , start on 10/07/[address] Vu would resume Lasix and Losartan once Cr is down to 2.0 or less, her baseline is 1.6-1.9 please continue your lymph edema treatment continue to have a low salt diabetic diet, elevate your legs as much as able when out of bed * Weigh patient every morning after using the bathroom. * Use the same scale. * Wear the same amount of clothing. * Write your weight down on your chart. * Call your doctor if you gain more than 2-3 pounds in 1-2 days. Pending Studies at Discharge: No Stand-Alone Forms: My [facility] Skilled Items Patient informed of condition?: Yes DNR: No Discharge Level of Care: Acute rehab Communicable Disease: No Discharge Prognosis: Stable Lines: None Urinary Catheter: No Medications and DC Order Prescriptions: New hydralazine 25 mg tablet 25 mg PO BID Qty: 60 RF: 3 Continued ergocalciferol (vitamin D2) 1,250 mcg (50,000 unit) capsule 50,000 unit PO WEEKLY Qty: 12 RF: 0 fluticasone propionate [24 Hour Allergy Relief] 50 mcg/actuation [place],Suspension 2 spray INTRANASAL DAILY PRN (Reason: Allergy Symptoms) RF: 0 levalbuterol tartrate [Xopenex HFA] 45 mcg/actuation Hfa Aerosol Inhaler 2 inh INHALATION Q4H PRN (Reason: Shortness Of Breath Or Wheezing) RF: 0 insulin regular hum U-500 conc 500 unit/mL (3 mL) insulin pen 120 units subcut QAM RF: 0 insulin regular hum U-500 conc 500 unit/mL (3 mL) insulin pen 100 units subcut QAM RF: 0 levothyroxine 88 mcg Tablet 88 mcg PO QAM RF: 0 liothyronine 5 mcg tablet 5 mcg PO HS RF: 0 rosuvastatin 20 mg tablet 20 mg PO HS RF: 0 tramadol 50 mg tablet 50 mg PO Q6H PRN (Reason: Pain) RF: 0 fluticasone propion-salmeterol 250-50 mcg/dose blister with device 1 puff Inhalation BID RF: 0 amlodipine 2.5 mg tablet 2.5 mg PO QAM RF: 0 montelukast 10 mg tablet 10 mg PO HS RF: 0 Discontinued losartan 100 mg tablet 100 mg PO QAM Qty: 90 RF: 3 furosemide 20 mg tablet 40 mg PO QAM Qty: 30 RF: 0 Discharge Orders: Discharge Order (Routine); Ordered 10/05/20 Ordered By: John Esparza Admission Data Admit Date/Time: 09/30/20 15:23 Attending Provider: John Esparza Admit Provider: Jovon Nixon Primary Care Provider: Aiyana Asencio Other Providers: Carla Anguiano ; Ramana Bear V. ; [facility] ; Lalo Mckenna ; [place],[facility] ; [facility] Other Interventions: Discharge Summary Assessment (RN) Last Done: 10/05/20 17:41 Coding Level of Care Code D/C Day Management >30 mins Diagnoses GUMARO (acute kidney injury) N17.9 Shortness of breath R06.02 Anemia D64.9 Anemia type: unspecified type Obesity hypoventilation syndrome E66.2 CAD S/P percutaneous coronary angioplasty I25.10; Z98.61 Hypertension I10 Hypertension type: essential hypertension Diabetes E11.9; Z79.4 Diabetes mellitus complication status: without complication Diabetes mellitus residential insulin use: with residential use Diabetes mellitus type: type 2 Stage 3b chronic kidney disease N18.32 Leg pain M79.606
--- NOTE | 2020-10-10 12:17 | Coding Query ---
To promote full compliance with coding requirements relating to patient care, provider participation is requested in all cases of design agent uncertainty. Please assist us with the question(s) below: Coding Question(s): The diagnosis below was documented in the NEPHROLOGY CONSULTATION ON 10/01/20, then subsequently fell off all further documentation. Please indicate if it is still a possible diagnosis or ruled out. Physician's Response(s): Possible ATN (documented in the 10/01/20 Nephrology Consultation) ( ) Diagnosed and POA ( x ) Diagnosed and not POA ( ) Ruled out ( ) Other (please specify) MTDD
--- NOTE | 2020-10-19 07:28 | Coding Query ---
ANEMIA To promote full compliance with coding requirements relating to patient care, physician participation is requested in all cases of spray technician uncertainty. Please assist us with the question(s) below: Coding Question(s): The record reflects the following clinical findings: Iron Deficiency Anemia is documented on the H&P and on the 10/01 Nephrology Consultation and Nephrology Progress Notes on 10/02, 10/03/, 10/04 and 10/05. Anemia of chronic disease/renal insufficiency is documented in the 09/[address] Bear. If these findings are indicative of anemia, please specify the known or suspected type by placing an "X" within the parenthesis (x). If other, please document type. Examples are: ( ) Acute blood loss anemia ( ) Acute Postoperative blood loss anemia ( ) Acute postoperative anemia due to dilutional fluids ( ) Chronic blood loss anemia (x ) Anemia of chronic disease ( ) Aplastic anemia ( x) Anemia due to renal disease ( ) Anemia in neoplastic disease ( ) Iron deficient anemia ( ) Anemia, unspecified or other ( ) Other: (please specify) ( ) Unable to determine Thank you Alma Beavers [facility] SYSTEM[facility]a
--- NOTE | 2020-10-25 07:19 | Coding Query ---
CODING QUERY To promote full compliance with coding requirements relating to patient care, provider participation is requested in all cases of programmer developer uncertainty. Please assist us with the question(s) below: Coding Question(s): The Discharge Summary documents, below, under Discharge Plan, Reason for Visit: SHORTNESS OF BREATH, and Discharge Diagnosis: exertional dyspnea due to pulmonary hypertension, however, above in the Hospital Course, there is documentation of, "Patient currently is acute kidney injury secondary to diuresis to try to help her dyspnea which is likely multifactorial influenced by anemia and also by likely some right-sided heart failure and pulmonary pretension this is likely due to the diuretic therapy", and, "Shortness of breath: This pt has a history of similar complaints in the past does have some chronic lung changes - Patient suffers with chronic lymphedema, she feels that she has had increased fluid retention lately and self increased her home diuretics with some improvement -Echo from fall 2019 with mild pulmonary htn, cpap compliance has been good (86%) on last check - Dyspneic with exertion- normal troponin and ECG - Anemia also influincing- TIBC, FE, FE sat are within normal limits but low, continue Venofer". Please specify below, in your clinical opinion, the source of the shortness of breath/dyspnea that was treated most during this admission. ( ) Pulmonary Hypertension ( ) Anemia ( x ) Right Sided Heart Failure ( ) Lymphedema ( ) Other: Please Specify Physician's Response(s): Thank you Alma Beavers Principal Diagnosis: "that condition established after study, to be chiefly responsible for occasioning the admission of the patient to the hospital for care." Co-Existing Principal Diagnosis: "when two or more diagnoses equally meet the criteria for principal diagnosis as determined by the circumstances of admission, diagnostic work up, and/or therapy provided, and the Alphabetic Index, Tabular List, or another coding guideline does not provide sequencing direction, any one of the diagnoses may be sequenced first." "When the physician has documented what appears to be a current diagnosis in the body of the record, but has not included the diagnosis in the final diagnostic statement, the physician should be asked whether the diagnosis should be added." (Source Coding Clinic 2 QTR90. p3-4) MTDD
== END 2020-10-05 18:50 | DRG 291 ==
LOC: ED 14:56 → 2N 14:56 → SUATTDRO 21:39 → 2N 22:49 → SUATTDRO 09-30 15:23

== ENCOUNTER 2021-03-08 14:02 | Observation (INO) ==
[~2021-03-08 14:02] MED LIST changes: -ADVIN25/60 INH; -ASPI81TA28 PO; -BRL90 PO; -ERGO500011 PO; -FLNIN/ NAE; -FURO-85 PO; +INSULIN ASPART 100 UNITS/ML 3 ML PEN SC SCH; -LEVA45AE INH; -LEVO100T7 PO; -LISI-725 PO; -LVMI SC; -MONT1TAB5 PO; -NVLG SC; -OXGN; -XPNINS NEB
--- NOTE | 2021-03-08 14:33 | Emergency Department Note ---
Impression & Plan Chest pain ED Provider Note .NAME: GREY LOU AGE: 65 SEX: F : 1955 ARRIVES VIA: Walk-In INFORMANT: Patient, ED PROVIDER(S): Gildardo Gardner DO CHIEF COMPLAINT: Chest pain HPI: The patient is a 65-year-old female who presented to the emergency department for chest pain. The patient was at the [facility] and that she is being seen for a chronic wound on the right lower extremity. She started to develop chest pain while trying to maneuver from the vehicle. When she told them she was having chest pain she was not able to have her treatment and was referred directly to the emergency department. She did take her own nitroglycerin because she has a history of coronary artery disease. The patient states her pain level is now 0. She denies having any nausea or vomiting. At the time she did have some nausea and anterior chest heaviness. She also states the pain was across her shoulders. She denies having any lower extremity swelling that is new. She denies having any abdominal pain. The patient states she has had a history of coronary artery disease requiring stenting but the pain was not the same. ROS: See above HPI for pertinent positives & negatives. A total of 10 systems reviewed and were otherwise negative. PAST MEDICAL HISTORY: See Below PAST SURGICAL HISTORY: See Below FAMILY HISTORY: See Below SOCIAL HISTORY: See Below HOME MEDICATIONS: See Below ALLERGIES: See Below VITALS: See Below PHYSICAL EXAMINATION: GENERAL: Patient is awake alert in no acute distress patient is resting comfortably and showing no signs of anxiety EYES: The conjunctivae are clear. The pupils are round and reactive. EARS, NOSE, MOUTH AND THROAT: The nose is without any evidence of any deformity. Mucous membranes are moist. Tongue is midline. NECK: The neck is nontender and supple. RESPIRATORY: Normal respiratory effort is noted there is no evidence of wheezing rhonchi or rales CARDIOVASCULAR: Regular rate and rhythm noted there no murmurs rubs or gallops normal S1 normal S2. GASTROINTESTINAL: The abdomen is soft. Abdomen is nontender. MUSCULOSKELETAL/EXTREMITIES: There is no evidence of gross deformity full range of motion is noted in the hips and shoulders. SKIN: Pedal edema was noted bilaterally. Skin was warm and dry. There was a wound boot on the right lower extremity. NEUROLOGIC: Patient is awake alert and oriented x3. MEDICAL DECISION MAKING: The patient is a 65-year-old female who presented to the emergency department for an evaluation of chest pain. The patient was navigating from her car to the wound care center when she developed very severe chest pain. She took nitroglycerin with some relief of her symptoms. The patient was referred directly to the emergency department because of her chest pain. The patient does have a history of coronary artery disease. Upon arrival she was pain-free but developed chest pain again with exertion while trying to go to the bathroom from I discussed the patient's laboratory and radiographic studies with her. I discussed the limitations of the emergency department work-up for chest pain with her. Ultimately given her risk factors I do feel that she would be a better candidate for inpatient management of her chest pain. Her EKG showed no acute change and her initial cardiac biomarker was negative. She is pain-free at this time. I discussed her case with the on-call [facility]. They will evaluate the patient in the emergency department for further management and disposition. Triage Nursing notes reviewed. Prior medical records reviewed Vital Signs: reviewed and remarkable for no significant abnormalities Differential diagnosis: Cardiac ischemia, aortic dissection, pulmonary embolism, pneumothorax, pneumonia, pericarditis, myocarditis, esophageal rupture, GERD, cholecystitis, pancreatitis, musculoskeletal, as well as other pathologies. ER treatment provided: See below Diagnostics interpreted by me: ECG: EKG was obtained in the emergency department. My interpretation is normal sinus rhythm at 80 bpm. There was no ectopy. There was no acute ST segment abnormalities. Poor R wave progression was noted. This was compared to a tracing from January 312020. No significant changes were noted. Cardiac Monitoring: An order was placed for continuous cardiac monitoring. The monitor shows a rate of 95 bpm with sinus rhythm. Laboratory studies: As stated above and show below. Imaging studies: See below Consultation(s): 1738: I discussed this case with Dr. Munroe who is on-call for the [facility]. He will evaluate the patient in the emergency department for further management and disposition. Past Med/Surg History Medical History Acute respiratory failure with hypoxia Anemia Breathlessness CAD S/P percutaneous coronary angioplasty Chronic respiratory failure 1 to 2 L oxygen Diabetes Diverticulitis Dyspnea GERD (gastroesophageal reflux disease) Hypertension Lymphedema Morbid obesity Morbid obesity due to excess calories Obesity hypoventilation syndrome Obstructive sleep apnea syndrome Proteinuria Secondary pulmonary hypertension Shortness of breath SOB (shortness of breath) Stage 3b chronic kidney disease Thyroid cancer Vitamin D deficiency Surgical History H/O endoscopy H/O partial thyroidectomy History of colonoscopy History of percutaneous coronary intervention Family History Other Diabetes Heart disease No pertinent family history Social History Smoking Status: Never smoker Second Hand Exposure: No; Hx Alcohol Use: No Hx Substance Use: No Preferred Language: Wolof 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 Ability: Effective 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 Beliefs That Will Affect Care: None marital status: Current Living Situation: Spouse Current Living Situation Comment: Feels Safe at Home: Yes Assistive Devices: Oxygen - Continuous and Walker Allergies Allergies Allergy/AdvReac Type Severity Reaction Status Date / Time Iodinated Contrast Media Allergy Severe Hives and Verified 03/08/21 13:42 kidney complications iodine Allergy Severe Hives and Verified 03/08/21 13:42 kidney complications shellfish derived Allergy Severe Anaphylaxis Verified 03/08/21 13:42 /Hives sulfite Allergy Severe HIVES AND Verified 03/08/21 13:42 THROAT CLOSES Home Meds Home Medications Medication Instructions Recorded Confirmed fluticasone propionate 50 2 spray INTRANASAL DAILY PRN 03/25/18 03/08/21 mcg/actuation nasal spray,suspension (24 Hour Allergy Relief) insulin regular hum U-500 conc See Rx Instructions .ROUTE .COMPLEX 08/16/18 03/08/21 levothyroxine 88 mcg tablet 88 mcg PO QAM 10/25/18 03/08/21 rosuvastatin 20 mg tablet 20 mg PO HS 02/26/19 03/08/21 tramadol 50 mg tablet 50 mg PO Q6H PRN 05/17/20 03/08/21 montelukast 10 mg tablet 10 mg PO HS 09/27/20 03/08/21 nitroglycerin 0.4 mg sublingual 0.4 mg SUBLINGUAL Q5M PRN 11/30/20 03/08/21 tablet epoetin milo 2,000 unit/mL 0 unit SUBCUT UD 03/08/21 03/08/21 injection solution (Procrit) lisinopril 2.5 mg tablet 0 mg PO DAILY 03/08/21 03/08/21 losartan 50 mg tablet 50 mg PO HS 03/08/21 03/08/21 Previous Rx's Medication Instructions Recorded ergocalciferol (vitamin D2) 1,250 50,000 unit PO WEEKLY #12 cap 08/12/20 mcg (50,000 unit) capsule fluticasone 100 mcg-salmeterol 50 1 inh INHALATION BID #60 ea 11/30/20 mcg/dose blistr powdr for inhalation (Advair Diskus) levalbuterol tartrate 45 2 inh INHALATION Q4H PRN #15 g 11/30/20 mcg/actuation aerosol inhaler (Xopenex HFA) levalbuterol HCl 0.63 mg/3 mL 0.63 mg INHALATION TID PRN #270 ml 01/31/21 solution for nebulization amlodipine 5 mg tablet 5 mg PO DAILY #90 tab 02/17/21 Results & Data (ED) Vital Signs Vital Signs - 24 hr 03/08/21 14:05 03/08/21 14:51 03/08/21 14:55 Temperature 36.3 C L Temperature Source Temporal Artery Scan Pulse Rate 86 78 Pulse Rate from SpO2 Sensor Respiratory Rate 18 25 H Respiratory Effort / Characteristics Non-Labored Spontaneous Respiratory Depth Normal Respiratory Pattern Regular Blood Pressure 167/68 H Blood Pressure Mean 101 Blood Pressure Position Sitting Pulse Oximetry 94 Oxygen Delivery Method Nasal Cannula Nasal Cannula Nasal Cannula Oxygen Flow Rate 4 4 4 Sepsis Recent Fever Within 48 Hours No Sepsis New/Unexplained Change in Mental Status N/A Sepsis Action Taken by Nursing No Action Required 03/08/21 15:00 03/08/21 15:10 03/08/21 15:20 Temperature Temperature Source Pulse Rate 92 H 94 H 95 H Pulse Rate from SpO2 Sensor Respiratory Rate 24 22 19 Respiratory Effort / Characteristics Respiratory Depth Respiratory Pattern Blood Pressure Blood Pressure Mean Blood Pressure Position Pulse Oximetry Oxygen Delivery Method Nasal Cannula Nasal Cannula Nasal Cannula Oxygen Flow Rate 4 4 4 Sepsis Recent Fever Within 48 Hours Sepsis New/Unexplained Change in Mental Status Sepsis Action Taken by Nursing 03/08/21 15:30 03/08/21 16:00 03/08/21 16:32 Temperature Temperature Source Pulse Rate 94 H 98 H 95 H Pulse Rate from SpO2 Sensor 99 H 95 H Respiratory Rate 25 H 27 H 29 H Respiratory Effort / Characteristics Respiratory Depth Respiratory Pattern Blood Pressure 147/70 H Blood Pressure Mean 95 Blood Pressure Position Pulse Oximetry 94 94 Oxygen Delivery Method Nasal Cannula Nasal Cannula Nasal Cannula Oxygen Flow Rate 4 4 4 Sepsis Recent Fever Within 48 Hours Sepsis New/Unexplained Change in Mental Status Sepsis Action Taken by Nursing 03/08/21 16:40 03/08/21 16:50 03/08/21 17:00 Temperature Temperature Source Pulse Rate 95 H 95 H 95 H Pulse Rate from SpO2 Sensor 95 H 95 H 93 H Respiratory Rate 19 25 H 24 Respiratory Effort / Characteristics Respiratory Depth Respiratory Pattern Blood Pressure 153/63 H Blood Pressure Mean 93 Blood Pressure Position Pulse Oximetry 94 95 95 Oxygen Delivery Method Nasal Cannula Nasal Cannula Nasal Cannula Oxygen Flow Rate 4 4 4 Sepsis Recent Fever Within 48 Hours Sepsis New/Unexplained Change in Mental Status Sepsis Action Taken by Shelter Medications Current Medication List: was personally reviewed by me Laboratory Data Attestation: I reviewed the patient's lab results. Result diagrams: 03/08/21 16:20 03/08/21 16:20 Lab Results 03/08/21 03/08/21 03/08/21 Range/Units 16:20 16:20 16:20 WBC 10.61 (4.8-10.8) K/uL RBC 3.63 L (4.2-5.4) M/uL Hgb 10.0 L (12.0-16.0) g/dL Hct 33.8 L (37-47) % MCV 93.1 (80-100) fL MCH 27.5 (25-34) pg MCHC 29.6 L (32-36) g/dL RDW Std Deviation 69.0 H (36.4-46.3) fL RDW Coeff of Cherelle 20.3 H (11.5-14.5) % Plt Count 283 (130-400) K/uL MPV 11.1 H (7.4-10.4) fL Immature Gran % (Auto) 0.6 % Neut % (Auto) 72.1 % Lymph % (Auto) 16.7 % Guthrie % (Auto) 9.3 % Eos % (Auto) 1.0 % Baso % (Auto) 0.3 % Neut # (Auto) 7.65 H (1.4-6.5) K/uL Lymph # (Auto) 1.77 (1.2-3.4) K/uL Guthrie # (Auto) 0.99 H (0.11-0.59) K/uL Eos # (Auto) 0.11 (0-0.5) K/uL Baso # (Auto) 0.03 (0-0.2) K/uL Immature Gran # (Auto) 0.06 H (0.00-0.02) K/uL Polychromasia 1+ Anisocytosis Present PT 11.6 (9.0-12.0) Seconds INR 1.2 H (0.9-1.1) APTT 26.7 (21.0-31.0) Seconds PTT Ratio 1.0 Sodium 139 (136-145) mmol/L Potassium 3.5 (3.5-5.1) mmol/L Chloride 104 (98-107) mmol/L Carbon Dioxide 31 (21-32) mmol/L Anion Gap 4.0 (3-11) BUN 26 H (7-18) mg/dl Creatinine 1.69 H (0.6-1.2) mg/dl Est Cr Clr Drug Dosing Not Reportable Est GFR ( Amer) 36.3 ml/min Est GFR (Non-Af Amer) 31.3 ml/min BUN/Creatinine Ratio 15.2 (10-20) Glucose 218 H (70-99) mg/dl Calcium 9.8 (8.5-10.1) mg/dl Total Bilirubin 0.6 (0.2-1) mg/dl AST 14 L (15-37) U/L ALT 18 (12-78) U/L Alkaline Phosphatase 90 (45-117) U/L Troponin I < 0.015 (0-0.045) ng/ml Total Protein 7.9 (6.4-8.2) gm/dl Albumin 3.2 L (3.4-5.0) gm/dl Globulin 4.7 H (2.5-4.0) gm/dl Albumin/Globulin Ratio 0.7 L (0.9-2) Lipase 137 (73-393) U/L Imaging Data Radiologist's Impression: Chest X-Ray 03/08/21 14:14 XR chest 1V portable HISTORY: Atypical Chest Pain COMPARISON: Chest 01/31/2021. FINDINGS: No pneumothorax or no pleural effusions. The cardiac silhouette remains mildly enlarged. There is diffuse interstitial thickening, unchanged. No new focal lung consolidations identified. Persistent fullness within the superior mediastinum and hilar regions consistent with lymphadenopathy. IMPRESSION: 1. No significantly changed compared the prior study. 2. Chronic interstitial thickening with mediastinal and bilateral hilar lym phadenopathy. This remains unchanged and could represent sarcoidosis. 3. Stable cardiomegaly. ACT 112: Negative or not required by law. Electronically signed by: Papi Jorge M.D. 03/08/2021 2:34 PM Discharge Plan Visit Data Chief Complaint: Chest Pain Stated Complaint: CHEST PAIN ED Provider: Gildardo Gardner Discharge Problem: Chest pain Patient Disposition: Being Evaluated by Hospitalist Condition: Good Forms Stand Alone Forms: My [employer] Prescriptions Prescriptions: No Action levalbuterol HCl 0.63 mg/3 mL solution for nebulization 0.63 mg inhalation TID PRN (Reason: shortness of breath or wheezing) Qty: 270 RF: 3 amlodipine 5 mg tablet 5 mg PO DAILY Qty: 90 RF: 3 ergocalciferol (vitamin D2) 1,250 mcg (50,000 unit) capsule 50,000 unit PO WEEKLY Qty: 12 RF: 0 nitroglycerin 0.4 mg tablet, sublingual 0.4 mg sublingual Q5M PRN (Reason: Shortness Of Breath Or Wheezing) RF: 0 fluticasone propion-salmeterol [Advair Diskus] 100-50 mcg/dose blister with device 1 inh inhalation BID Qty: 60 RF: 2 levalbuterol tartrate [Xopenex HFA] 45 mcg/actuation HFA aerosol inhaler 2 inh INHALATION Q4H PRN (Reason: Shortness Of Breath Or Wheezing) Qty: 15 RF: 5 fluticasone propionate [24 Hour Allergy Relief] 50 mcg/actuation Sanderson,Suspension 2 spray INTRANASAL DAILY PRN (Reason: Allergy Symptoms) RF: 0 insulin regular hum U-500 conc 500 unit/mL (3 mL) insulin pen See Rx Instructions .ROUTE .COMPLEX RF: 0 levothyroxine 88 mcg Tablet 88 mcg PO QAM RF: 0 rosuvastatin 20 mg tablet 20 mg PO HS RF: 0 tramadol 50 mg tablet 50 mg PO Q6H PRN (Reason: Pain) RF: 0 montelukast 10 mg tablet 10 mg PO HS RF: 0 losartan 50 mg tablet 50 mg PO HS RF: 0 lisinopril 2.5 mg Tablet 0 mg PO DAILY RF: 0 Procrit 2,000 unit/mL Solution 0 unit subcut UD RF: 0 Referrals Referrals: Aiyana Asencio MD [Primary Care Provider] -
--- NOTE | 2021-03-08 14:35 | XRay Report ---
XR chest 1V portable HISTORY: Atypical Chest Pain COMPARISON: Chest 01/31/2021. FINDINGS: No pneumothorax or no pleural effusions. The cardiac silhouette remains mildly enlarged. Th ere is diffuse interstitial thickening, unchanged. No new focal lung consolidations identified. Persi stent fullness within the superior mediastinum and hilar regions consistent with lymphadenopathy. IMPRESSION: 1. No significantly changed compared the prior study. 2. Chronic interstitial thickening with mediastinal and bilateral hilar lymphadenopathy. This remains unchanged and could represent sarcoidosis. 3. Stable cardiomegaly. ACT 112: Negative or not required by law. Electronically signed by: Papi Jorge M.D. 03/08/2021 2:34 PM
[2021-03-08 16:34] LABS: Basophils # (auto) 0.03 K/uL (0-0.2); Basophils % (auto) 0.3 %; Eosinophils # (auto) 0.11 K/uL (0-0.5); Hematocrit (blood only) 33.8 % (37-47); Immature Granulocytes # (auto) 0.06 K/uL (0.00-0.02); Immature Granulocytes % (auto) 0.6 %; Lymphocytes # (auto) 1.77 K/uL (1.2-3.4); Lymphocytes % (auto) 16.7 %; Mean Corpuscular Hemoglobin 27.5 pg (25-34); Mean Corpuscular Hgb Conc 29.6 g/dL (32-36); Mean Corpuscular Volume 93.1 fL (80-100); Mean Platelet Volume 11.1 fL (7.4-10.4); Monocytes # (auto) 0.99 K/uL (0.11-0.59); Monocytes % (auto) 9.3 %; Neutrophils # (auto) 7.65 K/uL (1.4-6.5); Neutrophils % (auto) 72.1 %; Platelet Count 283 K/uL (130-400); RDW Coefficient of Variation 20.3 % (11.5-14.5); Red Blood Count 3.63 M/uL (4.2-5.4); White Blood Count 10.61 K/uL (4.8-10.8)
[2021-03-08 16:54] LABS: INR 1.2 (0.9-1.1); Partial Thromboplastin Time 26.7 Seconds (21.0-31.0); Prothrombin Time 11.6 Seconds (9.0-12.0)
[2021-03-08 17:01] LABS: Alanine Aminotransferase 18 U/L (12-78); Albumin Level 3.2 gm/dl (3.4-5.0); Aspartate Aminotransferase 14 U/L (15-37); BUN Creatinine Ratio 15.2 (10-20); Blood Urea Nitrogen 26 mg/dl (7-18); Calcium 9.8 mg/dl (8.5-10.1); Carbon Dioxide 31 mmol/L (21-32); Chloride 104 mmol/L (98-107); Est GFR (African American) 36.3 ml/min; Est GFR (Non-African American) 31.3 ml/min; Glucose 218 mg/dl (70-99); Lipase 137 U/L (73-393); Potassium 3.5 mmol/L (3.5-5.1); Sodium 139 mmol/L (136-145)
[2021-03-08 17:03] LABS: Anisocytosis Present; Polychromasia 1+
[2021-03-08 17:05] LABS: Albumin Globulin Ratio 0.7 (0.9-2); Alkaline Phosphatase 90 U/L (45-117); Bilirubin,Total 0.6 mg/dl (0.2-1); Globulin 4.7 gm/dl (2.5-4.0); Total Protein 7.9 gm/dl (6.4-8.2); Troponin I < 0.015 ng/ml (0-0.045)
--- NOTE | 2021-03-08 19:36 | History & Physical Report ---
Date of Service March 08, 2021 Assessment & Plan (1) Chest pain: Plan: Patient with hispory of CAD. obtain serial cardiac markers consult cardio. Patient complaining of atypical symptom but had improvement with nitro will defer to cardio if stress test is warranted. 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 (3) Diabetes: Plan: consult glycemic control (4) Hypertension: Plan: resume home meds (5) Stage 3b chronic kidney disease: Plan: creatinine appears stable. (6) Chronic respiratory failure: Plan: resume home medications History of Present Illness Chief Complaint: chest pain Primary Care Provider: Aiyana Asencio MD 65-year-old female presents to ED for chest pain. She had an appointment with the wound care center to have her chronic wound of her Right lower extremity evalauted. However, as she was trying to get out of her vehicle, she noticed a sharp midsternum chest pain that radiated to both shoulders. As she mentioned this to the staff, the appointment was cancelled and patient was directed to the ER. She did take her own nitroglycerin as she has a history of coronary artery disease. She reports that tis improved her pain. Pain is now a zero, She denies having any nausea or vomiting. The patient states she has had a history of coronary artery disease requiring stenting but the pain was not the same. Allergies Allergy/AdvReac Type Severity Reaction Status Date / Time Iodinated Contrast Media Allergy Severe Hives and Verified 03/08/21 13:42 kidney complications iodine Allergy Severe Hives and Verified 03/08/21 13:42 kidney complications shellfish derived Allergy Severe Anaphylaxis Verified 03/08/21 13:42 /Hives sulfite Allergy Severe HIVES AND Verified 03/08/21 13:42 THROAT CLOSES Home Medications Medication Instructions Recorded Confirmed Type fluticasone propionate 50 2 spray INTRANASAL DAILY PRN 03/25/18 03/08/21 History mcg/actuation nasal spray,suspension (24 Hour Allergy Relief) insulin regular hum U-500 conc See Rx Instructions .ROUTE .COMPLEX 08/16/18 03/08/21 History levothyroxine 88 mcg tablet 88 mcg PO QAM 10/25/18 03/08/21 History rosuvastatin 20 mg tablet 20 mg PO HS 02/26/19 03/08/21 History tramadol 50 mg tablet 50 mg PO Q6H PRN 05/17/20 03/08/21 History ergocalciferol (vitamin D2) 1,250 50,000 unit PO WEEKLY #12 cap 08/12/20 03/08/21 Rx mcg (50,000 unit) capsule montelukast 10 mg tablet 10 mg PO HS 09/27/20 03/08/21 History fluticasone 100 mcg-salmeterol 50 1 inh INHALATION BID #60 ea 11/30/20 03/08/21 Rx mcg/dose blistr powdr for inhalation (Advair Diskus) levalbuterol tartrate 45 2 inh INHALATION Q4H PRN #15 g 11/30/20 03/08/21 Rx mcg/actuation aerosol inhaler (Xopenex HFA) nitroglycerin 0.4 mg sublingual 0.4 mg SUBLINGUAL Q5M PRN 11/30/20 03/08/21 History tablet levalbuterol HCl 0.63 mg/3 mL 0.63 mg INHALATION TID PRN #270 ml 01/31/21 Rx solution for nebulization amlodipine 5 mg tablet 5 mg PO DAILY #90 tab 02/17/21 03/08/21 Rx epoetin milo 2,000 unit/mL 0 unit SUBCUT UD 03/08/21 03/08/21 History injection solution (Procrit) lisinopril 2.5 mg tablet 0 mg PO DAILY 03/08/21 03/08/21 History losartan 50 mg tablet 50 mg PO HS 03/08/21 03/08/21 History Past Med/Surg History Medical History Acute respiratory failure with hypoxia Anemia Breathlessness CAD S/P percutaneous coronary angioplasty Chronic respiratory failure 1 to 2 L oxygen Diabetes Diverticulitis Dyspnea GERD (gastroesophageal reflux disease) Hypertension Lymphedema Morbid obesity Morbid obesity due to excess calories Obesity hypoventilation syndrome Obstructive sleep apnea syndrome Proteinuria Secondary pulmonary hypertension Shortness of breath SOB (shortness of breath) Stage 3b chronic kidney disease Thyroid cancer Vitamin D deficiency Surgical History H/O endoscopy H/O partial thyroidectomy History of colonoscopy History of percutaneous coronary intervention Family History Other Diabetes Heart disease No pertinent family history Social History Smoking Status: Never smoker Second Hand Exposure: No; Do You Dip or Chew Tobacco: No; Tobacco Cessation Education Requested by Patient: No Hx Alcohol Use: No Hx Substance Use: No Preferred Language: Bahraini 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 Ability: Effective 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 Beliefs That Will Affect Care: None marital status: Current Living Situation: Spouse Current Living Situation Comment: Other Information That Helps Us Care for You: No Feels Safe at Home: Yes Safety Concerns: Feels Safe At This Time Assistive Devices: Walker Review of Systems Constitutional: no sweats and no malaise Eyes: no blind spots and no discharge Ear, Nose, Mouth, Throat: no ear pain Respiratory: no cough Cardiovascular: + chest pain Gastrointestinal: no abdominal pain Genitourinary: no dysuria Musculoskeletal: no loss of height Integumentary: no acne and no rash Neurologic: + gait abnormality Psychiatric: no behavioral changes Endocrine: + fatigue Hematologic / Lymphatic: no easy bleeding Physical Exam Constitutional: WD/WN, vitals as above + obese Eyes: PERRL, conjunctivae normal, anicteric sclerae ENMT: external ear and nose normal, oropharynx normal Neck: trachea midline, no thyromegaly Respiratory: normal respiratory effort, lungs clear to auscultation Cardiovascular: RRR, no murmur, no edema Gastrointestinal (Abdomen): normal bowel sounds, soft, nontender, no hepatosplenomegaly Musculoskeletal: no cyanosis or clubbing, extremities motor strength 5/5 Skin: no rashes, warm and dry (except for heel ulcer noted on right foot) Neurologic: PERRL, EOMI, accommodation nl, no face palsy, no dysarthria Psychiatric: A+Ox3, euthymic affect Lymphatic: no cervical or axillary lymphadenopathy Results & Data Results & Data ([facility]) Vital Signs (Past 12 Hours) Vital Signs Temp Pulse Resp BP Pulse Ox 03/08/21 18:31 83 20 157/51 H 90 03/08/21 18:00 81 14 111/64 95 03/08/21 17:50 81 15 94 03/08/21 17:40 82 18 98 03/08/21 17:35 96 03/08/21 17:00 95 H 24 153/63 H 95 03/08/21 16:50 95 H 25 H 95 03/08/21 16:40 95 H 19 94 03/08/21 16:32 95 H 29 H 94 03/08/21 16:00 98 H 27 H 147/70 H 94 03/08/21 15:30 94 H 25 H 03/08/21 15:20 95 H 19 03/08/21 15:10 94 H 22 03/08/21 15:00 92 H 24 03/08/21 14:55 78 25 H 03/08/21 14:05 36.3 C L 86 18 167/68 H 94 PG Care Time/CCT Total # of Minutes Spent Total Time Spent with Patient: Total time spent is greater than 50% in coordination of care (as documented) at patient's floor/unit and/or counseling patient: Coding Level of Care Code 30434 Initial Inpt Care Lvl 3 Diagnoses Chest pain R07.9 Chest pain type: unspecified 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 due to underlying condition, limited to breakdown of skin E08.621; L97.411 Diabetes E11.9; Z79.4 Diabetes mellitus complication status: without complication Diabetes mellitus intermediate accountant insulin use: with senior living use Diabetes mellitus type: type 2 Hypertension I10 Hypertension type: essential hypertension Stage 3b chronic kidney disease N18.32 Chronic respiratory failure J96.10 (1) Chest pain Chest pain type: unspecified Qualified Code(s): R07.9 - Chest pain, unspecified (2) Diabetes Diabetes mellitus complication status: without complication Diabetes mellitus intermediate accountant insulin use: with intermediate accountant use Diabetes mellitus type: type 2 Qualified Code(s): E11.9 - Type 2 diabetes mellitus without complications; Z79.4 - manager terminal (current) use of insulin (3) Hypertension Hypertension type: essential hypertension Qualified Code(s): I10 - Essential (primary) hypertension
[2021-03-08] MEDS ORDERED: [UNRECOGNIZED DRUG - OTHER] SCH (19:45)
[2021-03-08] MEDS ORDERED: INSULIN REGULAR HUM U SCH (19:45)
[2021-03-08] MEDS ORDERED: LEVALBUTEROL HCL 0.63 MG/3 ML NEB INH PRN (19:45)
[2021-03-08] MEDS ORDERED: LEVALBUTEROL TARTRATE 15 GM HFA.AER.AD INH PRN (19:45)
[2021-03-08] MEDS ORDERED: NITROGLYCERIN SL 0.4 MG/TAB TAB SL PRN (19:45)
[2021-03-08] MEDS ORDERED: INSULIN SCH (19:45)
[2021-03-08] MEDS ORDERED: PHARMACY GLYCEMIC MGMT CONSULT PRN (19:49)
[2021-03-08] MEDS ORDERED: ROSUVASTATIN CALCIUM 20 MG TAB PO SCH (21:00)
[2021-03-08] MEDS ORDERED: LOSARTAN POTASSIUM 50 MG TAB PO SCH (21:00)
[2021-03-08] MEDS ORDERED: MONTELUKAST SODIUM 10 MG TABLET PO SCH (21:00)
[2021-03-08] MEDS ORDERED: NYSTATIN POWDER 15GM BTL EXT PRN (22:45)
[2021-03-08 22:49] LABS: Appearance Urine Clear (Clear); Bacteria Urine Automated 3+ (Negative); Bilirubin Urine Negative (Negative); Blood Urine Negative (Negative); Color Urine Yellow; Epithelial Cell Urine Auto >30 /lpf (0-5); Glucose Urine UA Trace (Negative); Ketones Urine Negative (Negative); Leukocyte Esterase Urine Trace (Negative); Nitrite Urine Negative (Negative); Protein Urine 1+ (Negative); RBC Urine Automated 0-4 /hpf (0-4); Specific Gravity Urine 1.008 (1.000-1.030); Urobilinogen Urine Negative (Negative); pH Urine 5.5 (4.5-7.5)
[2021-03-08] MEDS ORDERED: CARBOHYDRATES FOR HYPOGLYCEMIA PO PRN (23:45)
[2021-03-08] MEDS ORDERED: GLUCAGON FOR INJ 1 MG VIAL SQ PRN (23:45)
[2021-03-08] MEDS ORDERED: DEXTROSE 50% 50 ML SYRINGE IV PRN (23:45)
[2021-03-08] MEDS ORDERED: GLUCOSE 10 TABS/TUBE PO PRN (23:45)
[2021-03-08] MEDS ORDERED: GLUCOSE 40% GEL 15 GM TUBE PO PRN (23:45)
[2021-03-09] MEDS: INSULIN ASPART 100 UNITS/ML 3 ML PEN SC SCH ×4 (00:09→12:56)
[2021-03-09 01:32] LABS: Basophils # (auto) 0.03 K/uL (0-0.2); Basophils % (auto) 0.3 %; Eosinophils # (auto) 0.13 K/uL (0-0.5); Eosinophils % (auto) 1.2 %; Hematocrit (blood only) 31.8 % (37-47); Hemoglobin 9.5 g/dL (12.0-16.0); Immature Granulocytes # (auto) 0.06 K/uL (0.00-0.02); Immature Granulocytes % (auto) 0.5 %; Lymphocytes % (auto) 16.8 %; Mean Corpuscular Hemoglobin 27.3 pg (25-34); Mean Corpuscular Hgb Conc 29.9 g/dL (32-36); Mean Corpuscular Volume 91.4 fL (80-100); Mean Platelet Volume 10.3 fL (7.4-10.4); Monocytes # (auto) 1.07 K/uL (0.11-0.59); Monocytes % (auto) 9.5 %; Neutrophils # (auto) 8.09 K/uL (1.4-6.5); Neutrophils % (auto) 71.7 %; Platelet Count 269 K/uL (130-400); RDW Coefficient of Variation 20.8 % (11.5-14.5); RDW Standard Deviation 68.9 fL (36.4-46.3); Red Blood Count 3.48 M/uL (4.2-5.4); White Blood Count 11.28 K/uL (4.8-10.8)
[2021-03-09 01:51] LABS: Albumin Level 2.9 gm/dl (3.4-5.0); BUN Creatinine Ratio 15.8 (10-20); Bilirubin Direct 0.2 mg/dl (0-0.2); Blood Urea Nitrogen 25 mg/dl (7-18); Carbon Dioxide 34 mmol/L (21-32); Chloride 105 mmol/L (98-107); Creatinine Clr Calc Pharmacy 50.7 ml/min; Est GFR (African American) 38.8 ml/min; Est GFR (Non-African American) 33.5 ml/min; Glucose 213 mg/dl (70-99); Potassium 3.4 mmol/L (3.5-5.1); Sodium 141 mmol/L (136-145)
[2021-03-09] MEDS: traMADol HCL 50 MG TABLET PO PRN ×2 (01:52→08:14)
[2021-03-09 01:57] LABS: Alanine Aminotransferase 15 U/L (12-78); Alkaline Phosphatase 80 U/L (45-117); Aspartate Aminotransferase 10 U/L (15-37); Bilirubin,Total 0.6 mg/dl (0.2-1); Total Protein 7.1 gm/dl (6.4-8.2); Troponin I < 0.015 ng/ml (0-0.045)
[2021-03-09 01:59] LABS: Anisocytosis Present; Polychromasia 1+
[2021-03-09] MEDS ORDERED: LEVOTHYROXINE SODIUM 88 MCG TABLET PO SCH (06:30)
[2021-03-09] MEDS: SODIUM CHLORIDE 0.9% 1000ML 1,000 ML IV SCH ×2 (06:31→14:11)
[2021-03-09] MEDS ORDERED: FLUTICASONE/VILANTEROL 100/25MCG 14 PUFFS/INHALER INH SCH (09:00)
[2021-03-09] MEDS ORDERED: lisinopril 2.5 MG TAB PO SCH (09:00)
[2021-03-09] MEDS ORDERED: amLODIPine BESYLATE 5 MG TAB PO SCH (09:00)
--- NOTE | 2021-03-09 10:39 | Cardiology Consultation ---
Date of Consultation March 09, 2021 Assessment & Plan (1) Chest pain: Patient with hispory of CAD. obtain serial cardiac markers consult cardio. Patient complaining of atypical symptom but had improvement with nitro will defer to cardio if stress test is warranted. 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 (3) Diabetes: consult glycemic control (4) Hypertension: resume home meds (5) Stage 3b chronic kidney disease: creatinine appears stable. (6) Chronic respiratory failure: resume home medications History of Present Illness Attending Physician: John Esparza DO Allergies Allergy/AdvReac Type Severity Reaction Status Date / Time Iodinated Contrast Media Allergy Severe Hives and Verified 03/08/21 13:42 kidney complications iodine Allergy Severe Hives and Verified 03/08/21 13:42 kidney complications shellfish derived Allergy Severe Anaphylaxis Verified 03/08/21 13:42 /Hives sulfite Allergy Severe HIVES AND Verified 03/08/21 13:42 THROAT CLOSES Home Medications Medication Instructions Recorded Confirmed Type fluticasone propionate 50 2 spray INTRANASAL DAILY PRN 03/25/18 03/08/21 History mcg/actuation nasal spray,suspension (24 Hour Allergy Relief) insulin regular hum U-500 conc See Rx Instructions .ROUTE .COMPLEX 08/16/18 03/08/21 History levothyroxine 88 mcg tablet 88 mcg PO QAM 10/25/18 03/08/21 History rosuvastatin 20 mg tablet 20 mg PO HS 02/26/19 03/08/21 History tramadol 50 mg tablet 50 mg PO Q6H PRN 05/17/20 03/08/21 History ergocalciferol (vitamin D2) 1,250 50,000 unit PO WEEKLY #12 cap 08/12/20 03/08/21 Rx mcg (50,000 unit) capsule montelukast 10 mg tablet 10 mg PO HS 09/27/20 03/08/21 History fluticasone 100 mcg-salmeterol 50 1 inh INHALATION BID #60 ea 11/30/20 03/08/21 Rx mcg/dose blistr powdr for inhalation (Advair Diskus) levalbuterol tartrate 45 2 inh INHALATION Q4H PRN #15 g 11/30/20 03/08/21 Rx mcg/actuation aerosol inhaler (Xopenex HFA) nitroglycerin 0.4 mg sublingual 0.4 mg SUBLINGUAL Q5M PRN 11/30/20 03/08/21 History tablet levalbuterol HCl 0.63 mg/3 mL 0.63 mg INHALATION TID PRN #270 ml 01/31/21 03/08/21 Rx solution for nebulization amlodipine 5 mg tablet 5 mg PO DAILY #90 tab 02/17/21 03/08/21 Rx epoetin milo 2,000 unit/mL 0 unit SUBCUT UD 03/08/21 03/08/21 History injection solution (Procrit) lisinopril 2.5 mg tablet 0 mg PO DAILY 03/08/21 03/08/21 History losartan 50 mg tablet 50 mg PO HS 03/08/21 03/08/21 History Patient History Medical History Acute respiratory failure with hypoxia Anemia Breathlessness CAD S/P percutaneous coronary angioplasty Chronic respiratory failure 1 to 2 L oxygen Diabetes Diverticulitis Dyspnea GERD (gastroesophageal reflux disease) Hypertension Lymphedema Morbid obesity Morbid obesity due to excess calories Obesity hypoventilation syndrome Obstructive sleep apnea syndrome Proteinuria Secondary pulmonary hypertension Shortness of breath SOB (shortness of breath) Stage 3b chronic kidney disease Thyroid cancer Vitamin D deficiency Surgical History H/O endoscopy H/O partial thyroidectomy History of colonoscopy History of percutaneous coronary intervention Family History Other Diabetes Heart disease No pertinent family history Social History Smoking Status: Never smoker Second Hand Exposure: No; Do You Dip or Chew Tobacco: No; Tobacco Cessation Education Requested by Patient: No Hx Alcohol Use: No Hx Substance Use: No Preferred Language: Haitian 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 Ability: Effective 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 Beliefs That Will Affect Care: None marital status: Current Living Situation: Spouse Current Living Situation Comment: Other Information That Helps Us Care for You: No Feels Safe at Home: Yes Safety Concerns: Feels Safe At This Time Assistive Devices: Walker Review of Systems Constitutional: no sweats and no malaise Eyes: no blind spots and no discharge Ear, Nose, Mouth, Throat: no ear pain Respiratory: no cough Cardiovascular: + chest pain Gastrointestinal: no abdominal pain Genitourinary: no dysuria Musculoskeletal: no loss of height Integumentary: no acne and no rash Neurologic: + gait abnormality Psychiatric: no behavioral changes Endocrine: + fatigue Hematologic / Lymphatic: no easy bleeding Physical Exam Constitutional: WD/WN, vitals as above + obese Eyes: PERRL, conjunctivae normal, anicteric sclerae ENMT: external ear and nose normal, oropharynx normal Neck: trachea midline, no thyromegaly Respiratory: normal respiratory effort, lungs clear to auscultation Cardiovascular: RRR, no murmur, no edema Gastrointestinal (Abdomen): normal bowel sounds, soft, nontender, no hepatosp lenomegaly Musculoskeletal: no cyanosis or clubbing, extremities motor strength 5/5 Skin: no rashes, warm and dry (except for heel ulcer noted on right foot) Neurologic: PERRL, EOMI, accommodation nl, no face palsy, no dysarthria Psychiatric: A+Ox3, euthymic affect Lymphatic: no cervical or axillary lymphadenopathy Results & Data ([facility]) Vital Signs (Past 12 Hours) Vital Signs Temp Pulse Pulse Pulse Resp BP Pulse Ox 03/09/21 10:24 82 118/56 L 03/09/21 08:06 36.7 C 78 20 119/69 94 03/09/21 07:43 37.1 C 76 19 111/49 L 95 03/09/21 06:03 139/77 03/09/21 04:00 37.1 C 84 20 93/37 L 93 03/08/21 22:52 81 (1) Chest pain Chest pain type: unspecified Qualified Code(s): R07.9 - Chest pain, unspecified (2) Diabetes Diabetes mellitus complication status: without complication Diabetes mellitus assisted insulin use: 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
[2021-03-09] MEDS ORDERED: HUMULIN R U SC ONE ×2 (12:30→18:00)
--- NOTE | 2021-03-09 13:55 | Cardiology Consultation ---
Date of Consultation March 09, 2021 Assessment & Plan (1) Chest pain: Pt's chest pain likely due to chronic CAD- low suspicion for acute CA or stent thrombosis given unremarkable EKG, negative serial troponins, noted improvement with nitroglycerin and subsequently asymptomatic- appears more anginal in nature. Hemodynamically stable. Likely some contribution from not being on any blood thinners though this reduces the risk of future hemorrhage given previous GI bleed. Consider risk/benefit- initiation of clopidogrel given pt's previous bleed on ASA and brillinta. Given pt's lack of symptoms since in ER and hemodynamically stable, no indication for acute intervention with cardiac catheterization or repeat testing/imaging with echocardiogram or stress testing. Encourage ambulation and continued monitoring for symptoms- if unremarkable, can likely be discharged home. (2) Hypertension: Currently on Losartan 50 mg daily, Norvasc 5 mg daily. 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 (4) Diabetes: Hospitalist team managing (5) Stage 3b chronic kidney disease: BUN/Cr at baseline- 25/1.6 (6) Chronic respiratory failure: Continue rescue inhalers, supplemental O2 4L NC Supervising Physician Co-Signing Physician Notes Pt seen and examined. Agree with Dr. Romo's note. No EKG changes. Undetectable troponin I level. Doubt coronary ischemia. Echocardiogram with normal LV function, no wall motion abnormalities. If asymptomatic with ambulation, would discharge. Followup with Dr. Rodríguez. History of Present Illness Reason for Consultation: Chest pain with history of CAD Attending Physician: John Esparza DO History of Present Illness 64 yo with complex PMH including CKD3, DM2, HTN, COPD on home O2, pulmonary hypertension, STEWART, hypothyroidism, previous thyroid cancer s/p partial resection, iron-deficiency anemia for which she receives weekly EPO injections (baseline Hgb 10-11), CAD s/p PCI with stent placement in December 2017, follows with Dr. Rodríguez as outpatient, presenting with chest pain. Pt initially experienced chest pain yesterday 17 in AM around 9:00. Pain o ccurred at rest, 5/10 severity, midsternal, sharp in quality, some radiation to shoulders bilaterally and resolved within few minutes. Accompanied by some nausea but no other associated symptoms, including dyspnea. Several hours later around 1:30 PM, patient was at the wound care clinic for continued management of her R foot diabetic ulcer. When she was getting out of the car to enter the facility for her appointment, she again experienced similar chest pain but with 10/10 severity. She took sublingual nitroglycerin which provided relief of chest pain and resolution within 20 minutes. Pt told wound care staff about her chest pain and she was immediately referred to the ER. Since ER admission, patient has not had any further chest pain, no dyspnea, admitted to floor for observation. EKG on admission was unremarkable. Serial troponins negative. Of note, patient's CAD was diagnosed in December 2017 after she presented to hospital for persistent exertional dyspnea and chest pain. Cardiac cath eterization revealed 90% stenosis of the proximal circumflex artery's posterolateral branch. Balloon angioplasty with placement of 2.5 Xience 15 drug- eluting stent, patient started on aspirin and brillinta. Several months later in July of 2018, pt experienced significant melena in context of chest pain, dyspnea and lightheadedness. Upon hospital admission, she was found to have a GI bleed and her aspirin/brillinta were discontinued. Pt has since not been on any antiplatelet/anticoagulation agents per GI. Pt's last known echocardiogram April 2020 revwealed EF 60-65% with mild pulmonary hypertension- RVSP 44 mmHg. Allergies Allergy/AdvReac Type Severity Reaction Status Date / Time Iodinated Contrast Media Allergy Severe Hives and Verified 03/08/21 13:42 kidney complications iodine Allergy Severe Hives and Verified 03/08/21 13:42 kidney complications shellfish derived Allergy Severe Anaphylaxis Verified 03/08/21 13:42 /Hives sulfite Allergy Severe HIVES AND Verified 03/08/21 13:42 THROAT CLOSES Home Medications Medication Instructions Recorded Confirmed Type fluticasone propionate 50 2 spray INTRANASAL DAILY PRN 03/25/18 03/08/21 History mcg/actuation nasal spray,suspension (24 Hour Allergy Relief) insulin regular hum U-500 conc See Rx Instructions .ROUTE .COMPLEX 08/16/18 03/08/21 History levothyroxine 88 mcg tablet 88 mcg PO QAM 10/25/18 03/08/21 History rosuvastatin 20 mg tablet 20 mg PO HS 02/26/19 03/08/21 History tramadol 50 mg tablet 50 mg PO Q6H PRN 05/17/20 03/08/21 History ergocalciferol (vitamin D2) 1,250 50,000 unit PO WEEKLY #12 cap 08/12/20 1 Rx mcg (50,000 unit) capsule montelukast 10 mg tablet 10 mg PO HS 09/27/20 03/08/21 History fluticasone 100 mcg-salmeterol 50 1 inh INHALATION BID #60 ea 11/30/20 03/08/21 Rx mcg/dose blistr powdr for inhalation (Advair Diskus) levalbuterol tartrate 45 2 inh INHALATION Q4H PRN #15 g 11/30/20 03/08/21 Rx mcg/actuation aerosol inhaler (Xopenex HFA) nitroglycerin 0.4 mg sublingual 0.4 mg SUBLINGUAL Q5M PRN 11/30/20 03/08/21 History tablet levalbuterol HCl 0.63 mg/3 mL 0.63 mg INHALATION TID PRN #270 ml 01/31/21 03/08/21 Rx solution for nebulization amlodipine 5 mg tablet 5 mg PO DAILY #90 tab 02/17/21 03/08/21 Rx epoetin milo 2,000 unit/mL 0 unit SUBCUT UD 03/08/21 03/08/21 History injection solution (Procrit) losartan 50 mg tablet 50 mg PO HS 03/08/21 03/08/21 History Patient History Medical History Acute respiratory failure with hypoxia Anemia Breathlessness CAD S/P percutaneous coronary angioplasty Chronic respiratory failure 1 to 2 L oxygen Diabetes Diverticulitis Dyspnea GERD (gastroesophageal reflux disease) Hypertension Lymphedema Morbid obesity Morbid obesity due to excess calories Obesity hypoventilation syndrome Obstructive sleep apnea syndrome Proteinuria Secondary pulmonary hypertension Shortness of breath SOB (shortness of breath) Stage 3b chronic kidney disease Thyroid cancer Vitamin D deficiency Surgical History H/O endoscopy H/O partial thyroidectomy History of colonoscopy History of percutaneous coronary intervention Family History Other Diabetes Heart disease No pertinent family history Social History Smoking Status: Never smoker Second Hand Exposure: No; Do You Dip or Chew Tobacco: No; Tobacco Cessation Education Requested by Patient: No Hx Alcohol Use: No Hx Substance Use: No Preferred Language: Prydeinig 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 Ability: Effective Potato Seed Cutter Required: No Beliefs That Will Affect Care: None marital status: Current Living Situation: Spouse Current Living Situation Comment: Other Information That Helps Us Care for You: No Feels Safe at Home: Yes Safety Concerns: Feels Safe At This Time Assistive Devices: Special Shoe and Walker Review of Systems Review of Systems: All systems reviewed & are unremarkable except as noted in HPI & below Constitutional: no sweats and no malaise Eyes: no discharge Ear, Nose, Mouth, Throat: no ear pain Respiratory: no cough and no dyspnea Cardiovascular: no chest pain Gastrointestinal: no abdominal pain Genitourinary: no dysuria Musculoskeletal: no back pain and no neck pain Integumentary: no acne and no rash Neurologic: no generalized weakness and no loss of sensation Psychiatric: no behavioral changes Endocrine: no fatigue Hematologic / Lymphatic: no easy bleeding Physical Exam Constitutional: WD/WN, vitals as above + obese Eyes: + anicteric sclerae and EOM intact bilaterally ENMT: external ear and nose normal, oropharynx normal Neck: trachea midline, no thyromegaly Respiratory: normal respiratory effort, lungs clear to auscultation Cardiovascular: RRR, no murmur, no edema Gastrointestinal (Abdomen): Percussion/Palpation: abdomen soft; abdomen nontender and no guarding Musculoskeletal: no cyanosis or clubbing, extremities motor strength 5/5 Skin: no rashes, warm and dry (except for heel ulcer noted on right foot) Neurologic: awake; no focal motor deficits Psychiatric: A+Ox3, euthymic affect Lymphatic: no cervical or axillary lymphadenopathy + lymphedema Results & Data ([facility]) Vital Signs (Past 12 Hours) Vital Signs Temp Pulse Pulse Resp BP Pulse Ox 03/09/21 10:24 82 118/56 L 03/09/21 08:06 36.7 C 78 20 119/69 94 03/09/21 07:43 37.1 C 76 19 111/49 L 95 03/09/21 06:03 139/77 03/09/21 04:00 37.1 C 84 20 93/37 L 93 PG Care Time/CCT Total # of Minutes Spent Total Time Spent: 40 Total Time Spent with Patient: Total time spent is greater than 50% in coordin ation of care (as documented) at patient's floor/unit and/or counseling patient: Coding Level of Care Code 73353 Inpt Consult Level 4 Diagnoses Chest pain R07.9 Chest pain type: unspecified 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 due to underlying condition, limited to breakdown of skin E08.621; L97.411 Diabetes E11.9; Z79.4 Diabetes mellitus complication status: without complication 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 use Diabetes mellitus type: type 2 Hypertension I10 Hypertension type: essential hypertension Stage 3b chronic kidney disease N18.32 Chronic respiratory failure J96.10 Resident Activity Tracking Resident Involvement: Resident Care Provided Care Provided: Adult Hospital Medicine (1) Diabetes Diabetes mellitus complication status: without complication 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
--- NOTE | 2021-03-09 14:17 | Pharmacy Report ---
Pharmacy Glycemic Short Note 2 - Date of Service March 09, 2021 - Glycemic Short BSG Results (Last 24 hours): 03/08/21 03/08/21 03/09/21 16:20 22:00 01:23 Glucose 218 H 213 H POC Glucose 261 H 03/09/21 03/09/21 03/09/21 03:56 08:01 11:54 Glucose POC Glucose 172 H 111 H 145 H OUTPATIENT ANTIDIABETIC REGIMEN: * U-500 - 60 units with breakfast and lunch, 70 units with dinner * A1c 7.9% 12/2020 ASSESSMENT: * 65 year old admitted with chest pain. Type 2 diabetic managed on U-500 insulin at home. Pharmacy consulted for glycemic assistance. Patient known to glycemic service from other admissions. * Insulin dosing at home since last admission changing slightly. Had been on 220 units total per day of U-500. Now ~190 units of insulin per day at home. Typically she requires about ~50% of home regimen * Based on other admissions, BSGs trend downward at dinner and her lunch U-500 dose is usually small * Will trial 40 units with breakfast, 20 units with lunch, 30 units with dinner of U-500 for today (90 mg/day). Will utilize correction factor only if BSGs trending up PLAN FOR INPATIENT GLYCEMIC CONTROL: * Hold outpatient oral diabetes medications * U-500 insulin * trial 40 units with breakfast, 20 units with lunch, 30 units with dinner * Bolus insulin * NovoLog per scale ACHS or Q6hrs while NPO * Goal Range: Low 110 mg/dL - High 140 mg/dL * Correction Factor: 15 mg/dL/unit * Nutritional / Prandial insulin per carb ratio of 1 unit per NONE grams CHO consumed PLAN FOR DISCHARGE: * tbd
--- NOTE | 2021-03-09 14:49 | Discharge Summary ---
Date of Service March 09, 2021 Admission HPI Per Admitting Provider 65-year-old female presents to ED for chest pain. She had an appointment with the wound care center to have her chronic wound of her Right lower extremity evalauted. However, as she was trying to get out of her vehicle, she noticed a sharp midsternum chest pain that radiated to both shoulders. As she mentioned this to the staff, the appointment was cancelled and patient was directed to the ER. She did take her own nitroglycerin as she has a history of coronary artery disease. She reports that tis improved her pain. Pain is now a zero, She denies having any nausea or vomiting. The patient states she has had a history of coronary artery disease requiring stenting but the pain was not the same. Discharge Data Allergies Allergy/AdvReac Type Severity Reaction Status Date / Time Iodinated Contrast Media Allergy Severe Hives and Verified 03/08/21 13:42 kidney complications iodine Allergy Severe Hives and Verified 03/08/21 13:42 kidney complications shellfish derived Allergy Severe Anaphylaxis Verified 03/08/21 13:42 /Hives sulfite Allergy Severe HIVES AND Verified 03/08/21 13:42 THROAT CLOSES Consultations 03/08/21 17:30 ED Decision to Admit Stat 03/08/21 19:44 Consult Cardiology Routine Hospital Course (1) Chest pain: Patient with hispory of CAD. obtain serial cardiac markers consult cardio. Patient complaining of atypical symptom but had improvement with nitro will defer to cardio if stress test is warranted. 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 (3) Diabetes: consult glycemic control (4) Hypertension: resume home meds (5) Stage 3b chronic kidney disease: creatinine appears stable. (6) Chronic respiratory failure: resume home medications Discharge Plan Discharge Items Patient Disposition: Home - Self-Care Reason For Visit: CHEST PAIN Discharge Diagnosis: Chest pain, no signs of acute coronary sydrome Condition on Discharge: Good Activity: Resume your previous activity Weightbearing: Full weightbearing Non-emergency contact: Primary Care Provider Call non-emergency contact if: you have any medication questions and your symptoms worsen Follow-up/Referrals: Aiyana Asencio MD [Primary Care Provider] - Diet: Carb Consistent or DM2 and Heart Healthy Addtl Attending Provider Instructions: chest pain: no signs of acute coronary syndrome, cardiology would not recommend stress test at this time echo was done, report is pending Pending Studies at Discharge: Yes Studies:: echocardiogram Stand-Alone Forms: [facility], Smoking Cessation Medications and DC Order Prescriptions: Continued levalbuterol HCl 0.63 mg/3 mL solution for nebulization 0.63 mg inhalation TID PRN (Reason: shortness of breath or wheezing) Qty: 270 RF: 3 amlodipine 5 mg tablet 5 mg PO DAILY Qty: 90 RF: 3 ergocalciferol (vitamin D2) 1,250 mcg (50,000 unit) capsule 50,000 unit PO WEEKLY Qty: 12 RF: 0 nitroglycerin 0.4 mg tablet, sublingual 0.4 mg sublingual Q5M PRN (Reason: Shortness Of Breath Or Wheezing) RF: 0 fluticasone propion-salmeterol [Advair Diskus] 100-50 mcg/dose blister with device 1 inh inhalation BID Qty: 60 RF: 2 levalbuterol tartrate [Xopenex HFA] 45 mcg/actuation HFA aerosol inhaler 2 inh INHALATION Q4H PRN (Reason: Shortness Of Breath Or Wheezing) Qty: 15 RF: 5 fluticasone propionate [24 Hour Allergy Relief] 50 mcg/actuation [place],Suspension 2 spray INTRANASAL DAILY PRN (Reason: Allergy Symptoms) RF: 0 insulin regular hum U-500 conc 500 unit/mL (3 mL) insulin pen See Rx Instructions .ROUTE .COMPLEX RF: 0 levothyroxine 88 mcg Tablet 88 mcg PO QAM RF: 0 rosuvastatin 20 mg tablet 20 mg PO HS RF: 0 tramadol 50 mg tablet 50 mg PO Q6H PRN (Reason: Pain) RF: 0 montelukast 10 mg tablet 10 mg PO HS RF: 0 losartan 50 mg tablet 50 mg PO HS RF: 0 Procrit 2,000 unit/mL Solution 0 unit subcut UD RF: 0 Discontinued lisinopril 2.5 mg Tablet 0 mg PO DAILY RF: 0 Discharge Orders: Discharge Order (Routine); Ordered 03/09/21 Ordered By: John Esparza Admission Data Admit Date/Time: 03/08/21 19:55 Attending Provider: John Esparza Admit Provider: Saborio,Ronaldo A Primary Care Provider: Aiyana Asencio Other Providers: Ronaldo Munroe ; Gildardo Joy Coding Diagnoses Chest pain R07.9 Chest pain type: unspecified 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
--- NOTE | 2021-03-09 16:37 | XCELERA ---
[id number]
--- NOTE | 2021-03-09 16:52 | Electrocardiogram Report ---
Test Reason : Blood Pressure : / mmHG Vent. Rate : 080 BPM Atrial Rate : 080 BPM P-R Int : 186 ms QRS Dur : 094 ms QT Int : 386 ms P-R-T Axes : 055 014 045 degrees QTc Int : 445 ms Poor data quality, interpretation may be adversely affected Normal sinus rhythm Normal ECG When compared with ECG of 31-JAN-2021 16:25, Premature ventricular complexes are no longer Present Confirmed by Gildardo Joy ([id number]) on 03/09/2021 4:52:32 PM Referred By: Savanna Guzman Confirmed By:Gildardo Joy
[2021-03-11] MEDS ORDERED: ERGOCALCIFEROL 50,000 UNITS 1250 MCG CAP PO SCH (09:00)
== END 2021-03-09 15:53 | disposition home or self-care (01) ==
LOC: 2N 14:02 → ED 14:02 → SUATTDRO 19:55 → 2N 21:11

== ENCOUNTER 2021-06-14 12:40 | Inpatient (IN) ==
--- NOTE | 2021-06-14 16:19 | Emergency Department Note ---
History of Present Illness General Chief complaint: Flu Like Symptoms Stated complaint: SICK WITH FLU, COUGHING MUCAS AND BLOOD Time Seen by Provider: 06/14/21 15:38 History of Present Illness This is a 65-year-old female that presents to the emergency department via private vehicle accompanied by with complaints of "sick with flu, coughing mucus and blood". The patient has an extensive past medical history. The patient states that last Sunday she describes her symptoms as overall cold-like and that over the past 2 days has had associated diarrhea, nausea, vomiting, decreased appetite. No true fever. They reached out to the PCP and referred here for further evaluation and management. The at bedside notes that they were supposed to come in sooner however were at home caring for the [id number]. The patient did note over the past few days some dizziness, lightheadedness and chest pain which now is resolved. The patient states that at home her oxygen was in the 70s despite oxygen therapy that she is chronically on. Home Medications Medication Instructions Recorded Confirmed Type insulin regular hum U-500 conc See Rx Instructions .ROUTE .COMPLEX 08/16/18 05/03/21 History levothyroxine 88 mcg tablet 88 mcg PO QAM 10/25/18 06/14/21 History rosuvastatin 20 mg tablet 20 mg PO HS 02/26/19 06/14/21 History tramadol 50 mg tablet 50 mg PO Q6H PRN 05/17/20 06/14/21 History montelukast 10 mg tablet 10 mg PO HS 09/27/20 06/14/21 History fluticasone 100 mcg-salmeterol 50 1 inh INHALATION BID #60 ea 11/30/20 06/14/21 Rx mcg/dose blistr powdr for inhalation (Advair Diskus) levalbuterol tartrate 45 2 inh INHALATION Q4H PRN #15 g 11/30/20 06/14/21 Rx mcg/actuation aerosol inhaler (Xopenex HFA) nitroglycerin 0.4 mg sublingual 0.4 mg SUBLINGUAL Q5M PRN 11/30/20 06/14/21 History tablet levalbuterol HCl 0.63 mg/3 mL 0.63 mg INHALATION TID PRN #270 ml 01/31/21 Rx solution for nebulization epoetin milo 2,000 unit/mL 0 unit SUBCUT UD 03/08/21 06/14/21 History injection solution (Procrit) losartan 50 mg tablet 50 mg PO HS 03/08/21 06/14/21 History amlodipine 5 mg tablet 5 mg PO QAM 06/14/21 06/14/21 History Allergies Allergy/AdvReac Type Severity Reaction Status Date / Time Iodinated Contrast Media Allergy Severe Hives and Verified 06/14/21 16:49 kidney complications iodine Allergy Severe Hives and Verified 06/14/21 16:49 kidney complications shellfish derived Allergy Severe Anaphylaxis Verified 06/14/21 16:49 /Hives sulfite Allergy Severe HIVES AND Verified 06/14/21 16:49 THROAT CLOSES Past Med/Surg History Medical History Acute respiratory failure with hypoxia Anemia Breathlessness CAD S/P percutaneous coronary angioplasty Chest pain Chronic respiratory failure 1 to 2 L oxygen Diabetes Diverticulitis Dyspnea GERD (gastroesophageal reflux disease) Hypertension Lymphedema Morbid obesity Morbid obesity due to excess calories Obesity hypoventilation syndrome Obstructive sleep apnea syndrome Proteinuria Secondary pulmonary hypertension Shortness of breath SOB (shortness of breath) Stage 3b chronic kidney disease Thyroid cancer Vitamin D deficiency Surgical History H/O endoscopy H/O partial thyroidectomy History of colonoscopy History of percutaneous coronary intervention Family History Other Diabetes Heart disease No pertinent family history Social History Smoking Status: Never smoker Second Hand Exposure: No; Hx Alcohol Use: No Hx Substance Use: No Preferred Language: Kazakh 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 Ability: Effective 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: No Beliefs That Will Affect Care: None marital status: Current Living Situation: Spouse Current Living Situation Comment: Other Information That Helps Us Care for You: No Feels Safe at Home: Yes Safety Concerns: Feels Safe At This Time Assistive Devices: CPAP, Oxygen - at Night, Oxygen - Continuous and Walker Review of Systems A total of 10 systems reviewed and were otherwise negative Physical Exam Vital Signs Vital Signs - 24 hr 06/14/21 13:19 06/14/21 16:08 11/23/21 16:12 Temperature 37 C Temperature Source Oral Pulse Rate 83 77 Pulse Rate [Apical] 76 Pulse Rate from SpO2 Sensor 77 Respiratory Rate 24 19 22 Respiratory Effort / Characteristics Spontaneous Short of Breath Respiratory Depth Respiratory Pattern Blood Pressure 95/51 L Blood Pressure [Right Arm] Blood Pressure Mean 65 Blood Pressure Mean [Right Arm] Pulse Oximetry 87 L 95 95 Oxygen Delivery Method Nasal Cannula High Flow Nasal Cannula Oxygen Flow Rate 4 25 Fraction of Inspired Oxygen 60 Sepsis Recent Fever Within 48 Hours Yes Sepsis New/Unexplained Change in Mental Status No Sepsis Action Taken by Nursing No Action Required 06/14/21 16:30 06/14/21 16:41 06/14/21 17:00 Temperature Temperature Source Pulse Rate 75 74 76 Pulse Rate [Apical] 75 Pulse Rate from SpO2 Sensor 75 76 Respiratory Rate 15 24 24 Respiratory Effort / Characteristics Spontaneous Labored Respiratory Depth Normal Respiratory Pattern Regular Blood Pressure 103/50 L 92/53 L Blood Pressure [Right Arm] 103/50 L Blood Pressure Mean 67 66 Blood Pressure Mean [Right Arm] 67 Pulse Oximetry 93 96 92 Oxygen Delivery Method High Flow Nasal Cannula High Flow Nasal Cannula Oxygen Flow Rate 25 25 25 Fraction of Inspired Oxygen 60 60 Sepsis Recent Fever Within 48 Hours Sepsis New/Unexplained Change in Mental Status Sepsis Action Taken by Nursing 06/14/21 17:30 06/14/21 18:00 Temperature Temperature Source Pulse Rate 75 71 Pulse Rate [Apical] Pulse Rate from SpO2 Sensor 76 71 Respiratory Rate 18 16 Respiratory Effort / Characteristics Respiratory Depth Respiratory Pattern Blood Pressure 118/71 130/71 Blood Pressure [Right Arm] Blood Pressure Mean 86 90 Blood Pressure Mean [Right Arm] Pulse Oximetry 94 96 Oxygen Delivery Method High Flow Nasal Cannula Oxygen Flow Rate 25 Fraction of Inspired Oxygen 60 Sepsis Recent Fever Within 48 Hours Sepsis New/Unexplained Change in Mental Status Sepsis Action Taken by Nursing VITAL SIGNS - Vital signs and nursing notes were reviewed. Hypoxic. GENERAL -65-year-old female appearing her stated age who is in no acute distress. Patient is wearing nasal canula o2 at 6l. When transferred to bed she was briefly slightly reclined during positioning and was at 55% on 6L nasal canula. Communicates well with provider and answers questions appropriately. SKIN - Without rashes. HEAD - NC/AT. EYES - PERRL with EOMI bilaterally. Sclera anicteric. EARS - No deformities of external structures noted on gross examination bilaterally. NOSE - Midline and without cyanosis. MOUTH/OROPHARYNX - Without perioral cyanosis. NECK - No nuchal rigidity. LUNGS - Chest wall symmetric without accessory muscle use, intercostals retractions, or central cyanosis. Normal vesicular breath sounds CTA B/L. No wheezes, rales, or rhonchi appreciated. CARDIAC - RRR EXTREMITIES -bilateral lower extremity edema noted. +5/5 strength noted in UE/LE bilaterally. NEUROLOGIC - Cranial nerves II through XII grossly intact. PSYCH - A&O x3 and cooperates fully with examiner. Pt is very pleasant and interacts well with examiner. Course Administered Medications Montelukast Sodium (Montelukast Sodium 10 Mg Tablet) 10 mg PO HS LEONA Stop: 07/14/21 22:11 Last Admin: 06/15/21 00:14 Dose: 10 mg Documented by: [id number] Rosuvastatin Calcium (Rosuvastatin Calcium 20 Mg Tab) 20 mg PO HS LEONA Stop: 07/14/21 22:11 Last Admin: 06/15/21 00:15 Dose: 20 mg Documented by: [id number] Discontinued Medications Dexamethasone (Dexamethasone Sod Inj 4 Mg/Ml Vial) 6 mg IV ONE STA Stop: 06/14/21 17:51 Last Admin: 06/14/21 17:58 Dose: 6 mg Documented by: [id number] Miscellaneous (Patient's Height And/Or Weight Needed) 1 ea N/A Q2H LEONA Stop: 06/15/21 05:31 Last Admin: 06/14/21 19:28 Dose: 1 ea Documented by: [id number] Critical Care Time Critical Care Time: Yes Total Critical Care Time: 60 I have personally spent about 60 minutes of critical care time in the direct management of this patient. This includes bedside care, interpretation of diagnostic studies, and testing, discussion with consultants, patient, and family members, and other required patient management activities. This 60 minutes is in excess of all separately billable procedures. Medical Decision Making Laboratory Data Result diagrams: 06/14/21 16:09 06/14/21 16:09 Lab Results 06/14/21 06/14/21 06/14/21 Range/Units 16:09 16:09 16:12 WBC 6.01 (4.8-10.8) K/uL RBC 4.04 L (4.2-5.4) M/uL Hgb 10.9 L (12.0-16.0) g/dL Hct 35.6 L (37-47) % MCV 88.1 (80-100) fL MCH 27.0 (25-34) pg MCHC 30.6 L (32-36) g/dL RDW Std Deviation 64.9 H (36.4-46.3) fL RDW Coeff of Cherelle 19.8 H (11.5-14.5) % Plt Count 210 (130-400) K/uL MPV 10.7 H (7.4-10.4) fL Immature Gran % (Auto) 0.7 % Neut % (Auto) 61.8 % Lymph % (Auto) 28.0 % Morrill % (Auto) 8.8 % Eos % (Auto) 0.5 % Baso % (Auto) 0.2 % Neut # (Auto) 3.72 (1.4-6.5) K/uL Lymph # (Auto) 1.68 (1.2-3.4) K/uL Morrill # (Auto) 0.53 (0.11-0.59) K/uL Eos # (Auto) 0.03 (0-0.5) K/uL Baso # (Auto) 0.01 (0-0.2) K/uL Immature Gran # (Auto) 0.04 H (0.00-0.02) K/uL Hypochromasia Present PT (9.0-12.0) Seconds INR (0.9-1.1) APTT (21.0-31.0) Seconds PTT Ratio ABG pH (7.35-7.45) ABG pCO2 (35-46) mmHg ABG pO2 (80-95) mmHg ABG HCO3 (19-24) mmol/L ABG O2 Saturation (90-95) % ABG Base Excess (-9-1.8) mEq/L Dougie Test (Pos) Barometric Pressure mm/Hg Oxygen Given Sodium 132 L (136-145) mmol/L Potassium 3.7 (3.5-5.1) mmol/L Chloride 99 (98-107) mmol/L Carbon Dioxide 27 (21-32) mmol/L Anion Gap 6.0 (3-11) BUN 38 H (7-18) mg/dl Creatinine 2.15 H (0.6-1.2) mg/dl Est Cr Clr Drug Dosing Not Reportable Est GFR ( Amer) 27.1 ml/min Est GFR (Non-Af Amer) 23.4 ml/min BUN/Creatinine Ratio 17.6 (10-20) Glucose 68 L (70-99) mg/dl Lactate 2.6 H* (0.4-2.0) mmol/L Calcium 8.9 (8.5-10.1) mg/dl Total Bilirubin 0.6 (0.2-1) mg/dl AST 28 (15-37) U/L ALT 18 (12-78) U/L Alkaline Phosphatase 80 (45-117) U/L Troponin I < 0.015 (0-0.045) ng/ml C-Reactive Protein 12.90 H (0-0.29) mg/dl NT-Pro-B Natriuret Pep 2814 H (0-900) pg/ml Total Protein 8.5 H (6.4-8.2) gm/dl Albumin 2.9 L (3.4-5.0) gm/dl Globulin 5.6 H (2.5-4.0) gm/dl Albumin/Globulin Ratio 0.5 L (0.9-2) Procalcitonin (0-0.5) ng/ml SARS-CoV-2 (PCR) (Negative) Influ A Molecular Assay (Negative) Influ B Molecular Assay (Negative) Blood Type Antibody Screen 06/14/21 06/14/21 06/14/21 Range/Units 16:12 16:12 16:14 WBC (4.8-10.8) K/uL RBC (4.2-5.4) M/uL Hgb (12.0-16.0) g/dL Hct (37-47) % MCV (80-100) fL MCH (25-34) pg MCHC (32-36) g/dL RDW Std Deviation (36.4-46.3) fL RDW Coeff of Cherelle (11.5-14.5) % Plt Count (130-400) K/uL MPV (7.4-10.4) fL Immature Gran % (Auto) % Neut % (Auto) % Lymph % (Auto) % Morrill % (Auto) % Eos % (Auto) % Baso % (Auto) % Neut # (Auto) (1.4-6.5) K/uL Lymph # (Auto) (1.2-3.4) K/uL Morrill # (Auto) (0.11-0.59) K/uL Eos # (Auto) (0-0.5) K/uL Baso # (Auto) (0-0.2) K/uL Immature Gran # (Auto) (0.00-0.02) K/uL Hypochromasia PT 11.0 (9.0-12.0) Seconds INR 1.1 (0.9-1.1) APTT 30.0 (21.0-31.0) Seconds PTT Ratio 1.1 ABG pH (7.35-7.45) ABG pCO2 (35-46) mmHg ABG pO2 (80-95) mmHg ABG HCO3 (19-24) mmol/L ABG O2 Saturation (90-95) % ABG Base Excess (-9-1.8) mEq/L Dougie Test (Pos) Barometric Pressure mm/Hg Oxygen Given Sodium (136-145) mmol/L Potassium (3.5-5.1) mmol/L Chloride (98-107) mmol/L Carbon Dioxide (21-32) mmol/L Anion Gap (3-11) BUN (7-18) mg/dl Creatinine (0.6-1.2) mg/dl Est Cr Clr Drug Dosing Est GFR ( Amer) ml/min Est GFR (Non-Af Amer) ml/min BUN/Creatinine Ratio (10-20) Glucose (70-99) mg/dl Lactate (0.4-2.0) mmol/L Calcium (8.5-10.1) mg/dl Total Bilirubin (0.2-1) mg/dl AST (15-37) U/L ALT (12-78) U/L Alkaline Phosphatase (45-117) U/L Troponin I (0-0.045) ng/ml C-Reactive Protein (0-0.29) mg/dl NT-Pro-B Natriuret Pep (0-900) pg/ml Total Protein (6.4-8.2) gm/dl Albumin (3.4-5.0) gm/dl Globulin (2.5-4.0) gm/dl Albumin/Globulin Ratio (0.9-2) Procalcitonin 0.27 (0-0.5) ng/ml SARS-CoV-2 (PCR) (Negative) Influ A Molecular Assay (Negative) Influ B Molecular Assay (Negative) Blood Type A Positive Antibody Screen NEGATIVE 06/14/21 06/14/21 06/14/21 Range/Units 16:16 16:16 17:01 WBC (4.8-10.8) K/uL RBC (4.2-5.4) M/uL Hgb (12.0-16.0) g/dL Hct (37-47) % MCV (80-100) fL MCH (25-34) pg MCHC (32-36) g/dL RDW Std Deviation (36.4-46.3) fL RDW Coeff of Cherelle (11.5-14.5) % Plt Count (130-400) K/uL MPV (7.4-10.4) fL Immature Gran % (Auto) % Neut % (Auto) % Lymph % (Auto) % Morrill % (Auto) % Eos % (Auto) % Baso % (Auto) % Neut # (Auto) (1.4-6.5) K/uL Lymph # (Auto) (1.2-3.4) K/uL Morrill # (Auto) (0.11-0.59) K/uL Eos # (Auto) (0-0.5) K/uL Baso # (Auto) (0-0.2) K/uL Immature Gran # (Auto) (0.00-0.02) K/uL Hypochromasia PT (9.0-12.0) Seconds INR (0.9-1.1) APTT (21.0-31.0) Seconds PTT Ratio ABG pH 7.40 (7.35-7.45) ABG pCO2 45 (35-46) mmHg ABG pO2 68 L (80-95) mmHg ABG HCO3 27 H (19-24) mmol/L ABG O2 Saturation 93.5 (90-95) % ABG Base Excess 2.2 H (-9-1.8) mEq/L Dougie Test Pos (Pos) Barometric Pressure 735.7 mm/Hg Oxygen Given 25 Sodium (136-145) mmol/L Potassium (3.5-5.1) mmol/L Chloride (98-107) mmol/L Carbon Dioxide (21-32) mmol/L Anion Gap (3-11) BUN (7-18) mg/dl Creatinine (0.6-1.2) mg/dl Est Cr Clr Drug Dosing Est GFR ( Amer) ml/min Est GFR (Non-Af Amer) ml/min BUN/Creatinine Ratio (10-20) Glucose (70-99) mg/dl Lactate (0.4-2.0) mmol/L Calcium (8.5-10.1) mg/dl Total Bilirubin (0.2-1) mg/dl AST (15-37) U/L ALT (12-78) U/L Alkaline Phosphatase (45-117) U/L Troponin I (0-0.045) ng/ml C-Reactive Protein (0-0.29) mg/dl NT-Pro-B Natriuret Pep (0-900) pg/ml Total Protein (6.4-8.2) gm/dl Albumin (3.4-5.0) gm/dl Globulin (2.5-4.0) gm/dl Albumin/Globulin Ratio (0.9-2) Procalcitonin (0-0.5) ng/ml SARS-CoV-2 (PCR) POSITIVE A* (Negative) Influ A Molecular Assay Negative (Negative) Influ B Molecular Assay Negative (Negative) Blood Type Antibody Screen Imaging Data Radiologist's Impression: Chest X-Ray 06/14/21 13:25 XR chest 1V portable CLINICAL HISTORY: SOB, cough. COMPARISON STUDY: 03/08/2021 TECHNIQUE: 1 view of the chest FINDINGS: Single frontal view of the chest demonstrates the heart again to be enlarged. Compared to the previous examination, there are now patchy interstitial and alveolar opacities present bilaterally. The findings are most characteristic of a viral type pneumonitis. Covid 19 pneumonia should be excluded. There is also haziness at both lung bases and blunting of the left costophrenic angle suspicious for small bilateral pleural effusions. There is no evidence for vascular congestion. There is no acute osseous pathology. IMPRESSION: Interval development of patchy interstitial and alveolar opacities bilaterally characteristic of a viral type pneumonitis and probable Covid 19 pneumonia. There is also suspicion of bilateral pleural effusions, left greater than right. ACT 112: Negative or not required by law. Electronically signed by: Yared Schroeder M.D. 06/14/2021 4:30 PM MDM Narrative Patient was seen and evaluated as above in room C05. Review was performed of nursing notes and vital signs. I did review pertinent previous visits and patient history. After obtaining a thorough history and physical examination the above work up was performed. Patient presents to us today with what she describes as cold-like symptoms over the past week now over the past few days with nausea, vomiting, diarrhea. She notes that she has a cough and there is some blood in the cough. She is hypoxic on arrival. Patient was seen during a period of high volume and acuity. This is during the COVID-19 pandemic. The patient was immediately evaluated upon placement into an exam room. Staff as well as myself and at bedside did help transition the patient from her mobility chair to the bed. Patient then placed on 15 L nonrebreather as she was hypoxic in the 50s on 6 L. She then rebounded nicely into the high 80s and 90s. She was then placed on high flow and was feeling much better. She denied any dizziness, lightheadedness or chest pain. At the present time she is resting comfortably. During this I did ask the patient's at bedside if she had any directive in regard to her desire to be int ubated if the need would arise. He was unsure and directed us to asking the patient. I asked the patient and she noted that she does not want to be intubated/mechanically ventilated. This was also confirmed when the ED attending physician, Dr. Griffin asked the patient as well. During this conversa tion the patient was mentating well and without deficit. She does desire other resuscitative efforts such as CPR. CTA of the chest was deferred noting her allergy. Fluids were also held given the patient's respiratory status at this time. No leukocytosis. Mild anemia noted with hemoglobin at 10.9. ABG PO2 68. Hyponatremia 132. Creat 2.5 and BUN at 38. This is elevated compared to baseline. Troponin negative. CRP 12.9. BNP 2814. Covid testing positive. Flu negative. EKG reveals normal sinus rhythm at a rate of [address] elevation. QTc 442. QRS 94. Patient's Covid testing resulted positive. This does explain the patient's symptoms at this time. Patient at this time should be admitted for further evaluation and management. Patient amenable to plan of care. Case discussed with the hospitalist. Please refer to further documentation regarding her stay. While in the department, I personally reevaluated the patient several times and each time the patient was found to be resting comfortably once on high flow. An order was placed for continuous cardiac monitoring. The monitor shows a rate of 75 with sinus rhythm. GCS: 15 In the evaluation and treatment of this patient the following differential diagnoses were entertained: DE, PE, pericarditis, costochondritis, COVID-19, pneumonia, among others. Impression & Plan Elevated serum creatinine, Anemia, Pneumonia due to COVID-19 virus, Acute and chronic respiratory failure with hypoxia Discharge Plan Visit Data Chief Complaint: Flu Like Symptoms Stated Complaint: SICK WITH FLU, COUGHING MUCAS AND BLOOD ED Provider: Isaias Griffin ED Midlevel Provider: Lyndon Brady Discharge Problem: Elevated serum creatinine, Anemia, Pneumonia due to COVID-19 virus, Acute and c hronic respiratory failure with hypoxia Patient Disposition: Admitted As Inpatient Condition: Critical Discharge Instructions Interventions: ED Discharge Assessment Last Done: 06/14/21 21:10
--- NOTE | 2021-06-14 16:23 | Emergency Department Note ---
ED Visit Note I did evaluate and examine this patient myself. I did guide management for the patient. I agree with the PA's assessment as discussed. Please see the PAs dictation for further details. I did independently review the x-rays, twelve- lead EKG and blood work. She is presenting with shortness of breath and flu symptoms. Her white count is not elevated. She does have a anemia with a hemoglobin of 10.9. Electrolytes show a sodium of 132. Creatinine is elevated above baseline at 2.15. Lactate is 2.6. BNP is 2800. C-reactive protein is 13. Troponin is negative. Chest x-ray is concerning for multifocal pneumonia. She is Covid positive. She was admitted to the hospital. .
--- NOTE | 2021-06-14 16:31 | XRay Report ---
XR chest 1V portable CLINICAL HISTORY: SOB, cough. COMPARISON STUDY: 03/08/2021 TECHNIQUE: 1 view of the chest FINDINGS: Single frontal view of the chest demonstrates the heart again to be enlarged. Compared to the previou s examination, there are now patchy interstitial and alveolar opacities present bilaterally. The find ings are most characteristic of a viral type pneumonitis. Covid 19 pneumonia should be excluded. Ther e is also haziness at both lung bases and blunting of the left costophrenic angle suspicious for smal l bilateral pleural effusions. There is no evidence for vascular congestion. There is no acute osseou s pathology. IMPRESSION: Interval development of patchy interstitial and alveolar opacities bilaterally characteri stic of a viral type pneumonitis and probable Covid 19 pneumonia. There is also suspicion of bilatera l pleural effusions, left greater than right. ACT 112: Negative or not required by law. Electronically signed by: Yared Schroeder M.D. 06/14/2021 4:30 PM
[2021-06-14 16:32] LABS: Hematocrit (blood only) 35.6 % (37-47); Hemoglobin 10.9 g/dL (12.0-16.0); Mean Corpuscular Hgb Conc 30.6 g/dL (32-36); Mean Corpuscular Volume 88.1 fL (80-100); Mean Platelet Volume 10.7 fL (7.4-10.4); Platelet Count 210 K/uL (130-400); RDW Coefficient of Variation 19.8 % (11.5-14.5); RDW Standard Deviation 64.9 fL (36.4-46.3); Red Blood Count 4.04 M/uL (4.2-5.4); White Blood Count 6.01 K/uL (4.8-10.8)
[2021-06-14 16:38] LABS: Albumin Level 2.9 gm/dl (3.4-5.0); Blood Urea Nitrogen 38 mg/dl (7-18); Calcium 8.9 mg/dl (8.5-10.1); Carbon Dioxide 27 mmol/L (21-32); Chloride 99 mmol/L (98-107); Glucose 68 mg/dl (70-99); Potassium 3.7 mmol/L (3.5-5.1); Sodium 132 mmol/L (136-145)
[2021-06-14 16:41] LABS: Alanine Aminotransferase 18 U/L (12-78); Aspartate Aminotransferase 28 U/L (15-37); BUN Creatinine Ratio 17.6 (10-20); Est GFR (African American) 27.1 ml/min; Est GFR (Non-African American) 23.4 ml/min
[2021-06-14 16:43] LABS: Albumin Globulin Ratio 0.5 (0.9-2); Alkaline Phosphatase 80 U/L (45-117); Bilirubin,Total 0.6 mg/dl (0.2-1); Globulin 5.6 gm/dl (2.5-4.0); Total Protein 8.5 gm/dl (6.4-8.2)
[2021-06-14 16:46] LABS: INR 1.1 (0.9-1.1); Partial Thromboplastin Ratio 1.1
[2021-06-14 16:52] LABS: NT Pro B Type Natriuretic Pept 2814 pg/ml (0-900); Troponin I < 0.015 ng/ml (0-0.045)
[2021-06-14 16:59] LABS: Influenza A virus by PCR Negative (Negative); Influenza B virus by PCR Negative (Negative)
[2021-06-14 17:08] LABS: Basophils # (auto) 0.01 K/uL (0-0.2); Basophils % (auto) 0.2 %; Eosinophils # (auto) 0.03 K/uL (0-0.5); Eosinophils % (auto) 0.5 %; Hypochromasia Present; Immature Granulocytes # (auto) 0.04 K/uL (0.00-0.02); Immature Granulocytes % (auto) 0.7 %; Lymphocytes # (auto) 1.68 K/uL (1.2-3.4); Monocytes # (auto) 0.53 K/uL (0.11-0.59); Monocytes % (auto) 8.8 %; Neutrophils # (auto) 3.72 K/uL (1.4-6.5); Neutrophils % (auto) 61.8 %
[2021-06-14 17:13] LABS: Base Excess ABG 2.2 mEq/L (-9-1.8); HCO3 ABG 27 mmol/L (19-24); Oxygen Saturation ABG 93.5 % (90-95); PCO2 ABG 45 mmHg (35-46); PO2 ABG 68 mmHg (80-95)
--- NOTE | 2021-06-14 17:36 | History & Physical Report ---
Date of Service June 14, 2021 Assessment & Plan (1) Pneumonia due to COVID-19 virus: Plan: Partially vaccinated - x1 dose Moderna 08/2020 Dexamethasone 6mg IV daily and Baricitinib. Incentive spirometry Encourage pronation (2) Acute and chronic respiratory failure with hypoxia: Plan: Aim O2 > 94% with HFNC, CPAP HS. (3) Elevated serum creatinine: Plan: Suspect from hypoxia and diarrhea. Will avoid IV fluids given current respiratory status. If continues to get worse will need to discontinue baricitinib. Repeat level in AM (4) Obstructive sleep apnea syndrome: Plan: CPAP HS. (5) Hypertension: Plan: Hold anti-hypertensives due to hypotension on arrival and likely need for Lasix tomorrow. (6) Diabetes mellitus type 2 in obese: Plan: HbA1C 7.9 Consult pharmacy for glycemic control in setting of steroid use. Hypoglycemic on admission (7) Hypothyroidism: Plan: TSH 2.578 in December. Continue levothyroxine 88 mcg PO daily (8) CAD S/P percutaneous coronary angioplasty: Plan: s/p BIB stent placed in December 2017 due to persistent exertional dyspnea and chest pain No antiplatelets due to recurrent anemia. On no BB - unclear reason why. Holding losartan as above. Continue rosuvastatin. Plan: VTE prophylaxis - hold off anticoagulation due to hemoptysis, re-evaluate daily Diet - T2DM Disposition - admit to PCU, low tolerance for escalation of care Admission and Anticipated Discharge Date Admission Date: June 13, 2021 History of Present Illness Chief Complaint: Shortness of breath Primary Care Provider: Aiyana Asencio MD Lucy Molina is a 65 year old female who presents to the ER with shortness of breath and hypoxia. Seen with at bedside. She reports 1.5 weeks of symptoms including fever, chills, shortness of breath, cough, loss of taste and smell, myalgias, diarrhea, nausea, vomiting, nasal congestion, fatigue. She denies any sore throat, headache, chest or abdominal pain. She reports new onset hemoptysis this weekend with increased cough. Her has also been sick with similar symptoms. She is partially immunized with one dose of the Moderna vaccination in August. She had some adverse reaction to this vaccine although the details are not clear she reports having palpitations but did not need to be hospitalized. She reports her PCP advised her not to get a second vaccination. She is chronically on 3LPM O2 after influenza and secondary bacterial pneumonia 3.5 years ago. On procrit due to CKD and probable slow GI bleed with extensive workup in the past. Despite having a prior cardiac stent she was advised not to take antiplatelets due to recurrent anemia. CPAP at night due to [facility] but she does not know the settings. In the ER SARS-COV-2 PCR is positive. She is requiring 60% FiO2 25 LPM to maintain O2 sats > 94% at rest. CRP 12.9. She was referred to medicine for admission and ongoing management of COVID-19 pneumonia. Allergies Allergy/AdvReac Type Severity Reaction Status Date / Time Iodinated Contrast Media Allergy Severe Hives and Verified 06/14/21 16:49 kidney complications iodine Allergy Severe Hives and Verified 06/14/21 16:49 kidney complications shellfish derived Allergy Severe Anaphylaxis Verified 06/14/21 16:49 /Hives sulfite Allergy Severe HIVES AND Verified 06/14/21 16:49 THROAT CLOSES Home Medications Medication Instructions Recorded Confirmed Type insulin regular hum U-500 conc See Rx Instructions .ROUTE .COMPLEX 08/16/18 05/03/21 History levothyroxine 88 mcg tablet 88 mcg PO QAM 10/25/18 06/14/21 History rosuvastatin 20 mg tablet 20 mg PO HS 02/26/19 06/14/21 History tramadol 50 mg tablet 50 mg PO Q6H PRN 05/17/20 06/14/21 History montelukast 10 mg tablet 10 mg PO HS 09/27/20 06/14/21 History fluticasone 100 mcg-salmeterol 50 1 inh INHALATION BID #60 ea 11/30/20 06/14/21 Rx mcg/dose blistr powdr for inhalation (Advair Diskus) levalbuterol tartrate 45 2 inh INHALATION Q4H PRN #15 g 11/30/20 06/14/21 Rx mcg/actuation aerosol inhaler (Xopenex HFA) nitroglycerin 0.4 mg sublingual 0.4 mg SUBLINGUAL Q5M PRN 11/30/20 06/14/21 History tablet levalbuterol HCl 0.63 mg/3 mL 0.63 mg INHALATION TID PRN #270 ml 01/31/21 06/14/21 Rx solution for nebulization epoetin milo 2,000 unit/mL 0 unit SUBCUT UD 03/08/21 06/14/21 History injection solution (Procrit) losartan 50 mg tablet 50 mg PO HS 03/08/21 06/14/21 History amlodipine 5 mg tablet 5 mg PO QAM 06/14/21 06/14/21 History Past Med/Surg History Medical History Acute respiratory failure with hypoxia Anemia Breathlessness CAD S/P percutaneous coronary angioplasty Chest pain Chronic respiratory failure 1 to 2 L oxygen Diabetes Diverticulitis Dyspnea GERD (gastroesophageal reflux disease) Hypertension Lymphedema Morbid obesity Morbid obesity due to excess calories Obesity hypoventilation syndrome Obstructive sleep apnea syndrome Proteinuria Secondary pulmonary hypertension Shortness of breath SOB (shortness of breath) Stage 3b chronic kidney disease Thyroid cancer Vitamin D deficiency Surgical History H/O endoscopy H/O partial thyroidectomy History of colonoscopy History of percutaneous coronary intervention Family History Other Diabetes Heart disease No pertinent family history Social History Smoking Status: Never smoker Second Hand Exposure: No; Hx Alcohol Use: No Hx Substance Use: No Preferred Language: Slovenian 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 Ability: Effective Operations Analyst Required: No Beliefs That Will Affect Care: None marital status: Current Living Situation: Spouse Current Living Situation Comment: Other Information That Helps Us Care for You: No Feels Safe at Home: Yes Safety Concerns: Feels Safe At This Time Assistive Devices: CPAP, Oxygen - at Night, Oxygen - Continuous and Walker Review of Systems Review of Systems: All systems reviewed & are unremarkable except as noted in HPI & below Respiratory: + chest congestion, + dyspnea and + hemoptysis Cardiovascular: no chest pain Gastrointestinal: + diarrhea/loose stools Results & Data Results & Data ([facility]) Vital Signs (Past 12 Hours) Vital Signs Temp Pulse Pulse Resp BP BP Pulse Ox 06/14/21 17:00 76 24 92/53 L 92 06/14/21 16:41 74 24 96 06/14/21 16:30 75 75 15 103/50 L 103/50 L 93 06/14/21 16:12 76 22 95 11/23/21 16:08 77 19 95 06/14/21 13:19 37 C 83 24 95/51 L 87 L Laboratory Results Abnormal lab results 06/14/21 06/14/21 06/14/21 Range/Units 16:09 16:09 16:12 RBC 4.04 L (4.2-5.4) M/uL Hgb 10.9 L (12.0-16.0) g/dL Hct 35.6 L (37-47) % MCHC 30.6 L (32-36) g/dL RDW Std Deviation 64.9 H (36.4-46.3) fL RDW Coeff of Cherelle 19.8 H (11.5-14.5) % MPV 10.7 H (7.4-10.4) fL Immature Gran # (Auto) 0.04 H (0.00-0.02) K/uL ABG pO2 (80-95) mmHg ABG HCO3 (19-24) mmol/L ABG Base Excess (-9-1.8) mEq/L Sodium 132 L (136-145) mmol/L BUN 38 H (7-18) mg/dl Creatinine 2.15 H (0.6-1.2) mg/dl Glucose 68 L (70-99) mg/dl Lactate 2.6 H* (0.4-2.0) mmol/L C-Reactive Protein 12.90 H (0-0.29) mg/dl NT-Pro-B Natriuret Pep 2814 H (0-900) pg/ml Total Protein 8.5 H (6.4-8.2) gm/dl Albumin 2.9 L (3.4-5.0) gm/dl Globulin 5.6 H (2.5-4.0) gm/dl Albumin/Globulin Ratio 0.5 L (0.9-2) SARS-CoV-2 (PCR) (Negative) 06/14/21 06/14/21 Range/Units 16:16 17:01 RBC (4.2-5.4) M/uL Hgb (12.0-16.0) g/dL Hct (37-47) % MCHC (32-36) g/dL RDW Std Deviation (36.4-46.3) fL RDW Coeff of Cherelle (11.5-14.5) % MPV (7.4-10.4) fL Immature Gran # (Auto) (0.00-0.02) K/uL ABG pO2 68 L (80-95) mmHg ABG HCO3 27 H (19-24) mmol/L ABG Base Excess 2.2 H (-9-1.8) mEq/L Sodium (136-145) mmol/L BUN (7-18) mg/dl Creatinine (0.6-1.2) mg/dl Glucose (70-99) mg/dl Lactate (0.4-2.0) mmol/L C-Reactive Protein (0-0.29) mg/dl NT-Pro-B Natriuret Pep (0-900) pg/ml Total Protein (6.4-8.2) gm/dl Albumin (3.4-5.0) gm/dl Globulin (2.5-4.0) gm/dl Albumin/Globulin Ratio (0.9-2) SARS-CoV-2 (PCR) POSITIVE A* (Negative) Diagnostic Findings XR chest 1V portable CLINICAL HISTORY: SOB, cough. COMPARISON STUDY: 03/08/2021 TECHNIQUE: 1 view of the chest FINDINGS: Single frontal view of the chest demonstrates the heart again to be enlarged. Compared to the previous examination, there are now patchy interstitial and alveolar opacities present bilaterally. The findings are most characteristic of a viral type pneumonitis. Covid 19 pneumonia should be excluded. There is also haziness at both lung bases and blunting of the left costophrenic angle suspicious for small bilateral pleural effusions. There is no evidence for vascular congestion. There is no acute osseous pathology. IMPRESSION: Interval development of patchy interstitial and alveolar opacities bilaterally characteristic of a viral type pneumonitis and probable Covid 19 pneumonia. There is also suspicion of bilateral pleural effusions, left greater than right. Medications Administered ER Medications Given: None ECG Indication: SOB/dyspnea Rate (beats per minute): 78 Rhythm: normal sinus Comparison ECG Date: from (Mar 08, 2021) Change: no significant change Code Status & VTE Plan Code Status Full as discussed with the patient VTE Prophylaxis Plan VTE Prophylaxis will be ordered: Yes Reason for no VTE drug order: Contraindicated (hemoptysis) PG Care Time/CCT Total # of Minutes Spent Total Time Spent with Patient: Total time spent is greater than 50% in coordination of care (as documented) at patient's floor/unit and/or counseling patient: Coding Level of Care Code 89627 Initial Inpt Care Lvl 3 Diagnoses Pneumonia due to COVID-19 virus U07.1; J12.82 Acute and chronic respiratory failure with hypoxia J96.21 Elevated serum creatinine R79.89 Obstructive sleep apnea syndrome G47.33 Hypertension I10 Hypertension type: essential hypertension Diabetes mellitus type 2 in obese E11.69; E66.9 Hypothyroidism E03.9 CAD S/P percutaneous coronary angioplasty I25.10; Z98.61 (1) Hypertension Hypertension type: essential hypertension Qualified Code(s): I10 - Essential (primary) hypertension
[2021-06-14] MEDS ORDERED: dexAMETHasone 6 MG in SYRINGE 0 ML IV STA (17:45)
[2021-06-14] MEDS ORDERED: DEXAMETHASONE SOD INJ 4 MG/ML VIAL IV STA (17:50)
[2021-06-14 19:10] LABS: Allen Test Pos (Pos)
[2021-06-14] MEDS ORDERED: PATIENT'S HEIGHT AND/OR WEIGHT NEEDED SCH (19:30)
[2021-06-14] MEDS ORDERED: ACETAMINOPHEN 325 MG TAB PO PRN (22:12)
[2021-06-14] MEDS ORDERED: ONDANSETRON INJ 2 MG/ML 2 ML VIAL IV PRN (22:12)
[2021-06-14] MEDS ORDERED: POLYETHYLENE (MIRALAX) 17 GM PACK PO PRN (22:12)
[2021-06-14] MEDS ORDERED: ALBUT/IPRATROP 3MG/0.5MG NEB 3 ML VIAL NEB PRN (22:28)
[2021-06-14] MEDS ORDERED: INFLUENZA VACCINE HIGH DOSE PF 65+ 0.7 ML SYR IM ONE (22:47)
[2021-06-15] MEDS: MONTELUKAST SODIUM 10 MG TABLET PO SCH ×2 (00:14→20:48)
[2021-06-15] MEDS: ROSUVASTATIN CALCIUM 20 MG TAB PO SCH ×2 (00:15→20:47)
[2021-06-15] MEDS: LEVOTHYROXINE SODIUM 88 MCG TABLET PO SCH (05:43)
[2021-06-15] MEDS ORDERED: PHARMACY GLYCEMIC MGMT CONSULT PRN (06:37)
[2021-06-15 07:15] LABS: Albumin Globulin Ratio 0.5 (0.9-2); Albumin Level 2.6 gm/dl (3.4-5.0); BUN Creatinine Ratio 21.2 (10-20); Bilirubin,Total 0.5 mg/dl (0.2-1); Calcium 8.5 mg/dl (8.5-10.1); Creatinine Clr Calc Pharmacy 43.9 ml/min; Est GFR (African American) 33.6 ml/min; Globulin 5.4 gm/dl (2.5-4.0); Potassium 4.7 mmol/L (3.5-5.1)
[2021-06-15 07:16] LABS: Basophils # (auto) 0.01 K/uL (0-0.2); Basophils % (auto) 0.4 %; Hematocrit (blood only) 34.4 % (37-47); Hemoglobin 10.7 g/dL (12.0-16.0); Immature Granulocytes # (auto) 0.01 K/uL (0.00-0.02); Immature Granulocytes % (auto) 0.4 %; Lymphocytes # (auto) 0.66 K/uL (1.2-3.4); Lymphocytes % (auto) 28.1 %; Mean Corpuscular Hemoglobin 27.4 pg (25-34); Mean Corpuscular Hgb Conc 31.1 g/dL (32-36); Mean Platelet Volume 10.9 fL (7.4-10.4); Monocytes # (auto) 0.17 K/uL (0.11-0.59); Monocytes % (auto) 7.2 %; Neutrophils % (auto) 63.9 %; Platelet Count 201 K/uL (130-400); RDW Coefficient of Variation 19.5 % (11.5-14.5); RDW Standard Deviation 63.2 fL (36.4-46.3); Red Blood Count 3.91 M/uL (4.2-5.4); White Blood Count 2.35 K/uL (4.8-10.8)
--- NOTE | 2021-06-15 07:45 | Hospitalist Progress Note ---
Date of Service June 15, 2021 Assessment & Plan (1) Pneumonia due to COVID-19 virus: Plan: Partially vaccinated - x1 dose Moderna 08/2020 Dexamethasone 6mg IV daily and Baricitinib. Incentive spirometry Encourage pronation (2) Acute and chronic respiratory failure with hypoxia: Plan: Aim O2 > 94% with HFNC, CPAP HS. (3) Elevated serum creatinine: Plan: Suspect from hypoxia and diarrhea. Will avoid IV fluids given current respiratory status. If continues to get worse will need to discontinue baricitinib. Repeat level in AM (4) Obstructive sleep apnea syndrome: Plan: CPAP HS. (5) Hypertension: Plan: Hold anti-hypertensives due to hypotension on arrival and likely need for Lasix tomorrow. (6) Diabetes mellitus type 2 in obese: Plan: HbA1C 7.9 Consult pharmacy for glycemic control in setting of steroid use. Hypoglycemic on admission (7) Hypothyroidism: Plan: TSH 2.578 in December. Continue levothyroxine 88 mcg PO daily (8) CAD S/P percutaneous coronary angioplasty: Plan: s/p BIB stent placed in December 2017 due to persistent exertional dyspnea and chest pain No antiplatelets due to recurrent anemia. On no BB - unclear reason why. Holding losartan as above. Continue rosuvastatin. Plan: VTE prophylaxis - scd cautiously restart chemoprophylaxis Diet - T2DM Disposition - admit to PCU, low tolerance for escalation of care Admission and Anticipated Discharge Date Admission Date: June 14, 2021 Subjective Patient is improving but still requiring oxygen now on 5 L. She still feels subjective shortness of breath and has a cough although now with only scant production of mucus Review of Systems Review of Systems: Marked distress and fatigue no headache, no visual changes no speech or swallowing issues no chest pain, pressure or palpitations Continue shortness of breath, still with some productive cough no abdominal pain, nausea or vomiting, diarrhea or constipation no dysuria, hematuria or frequency no focal joint pain or swelling no back pain, CVA tenderness or radicular pain no bruising, bleeding or rashes no focal signs of weakness or numbness or altered sensation no complaints of anxiety or depression.. Physical Exam Physical Exam: The patient appeared significantly ill and short of breath Vital signs as documented. Head exam is normocephalic atraumatic Neck is without JVD, thyromegaly, or carotid bruits. Lungs are rales bilaterally, consistent with covid pneumonia Cardiac exam, Rhythm is regular.. No murmurs, rubs or gallops. Abdominal exam reveals normal bowel sounds, soft non tender, no masses Extremities are trace edema bilaterally and both pedal pulses are present Neurologic exam is alert and oriented, no focal loss of strength or sensation Skin is without bruises or rashes Psychologically is without concerns for anxiety or depression.. Results & Data Results & Data ([facility]) Vital Signs (Past 12 Hours) Vital Signs Temp Pulse Pulse Resp BP BP BP 06/15/21 07:20 96.8 F L 68 22 122/61 06/15/21 04:28 97.7 F 66 17 140/93 06/15/21 00:59 67 25 H 06/15/21 00:00 70 06/14/21 22:12 98.2 F 70 17 116/58 L 06/14/21 20:30 71 16 125/52 L 06/14/21 20:00 71 22 Pulse Ox 06/15/21 07:20 94 06/15/21 04:28 100 06/15/21 00:59 94 06/15/21 00:00 06/14/21 22:12 94 06/14/21 20:30 96 06/14/21 20:00 97 PG Care Time/CCT Total # of Minutes Spent Total Time Spent with Patient: Total time spent is greater than 50% in coordination of care (as documented) at patient's floor/unit and/or counseling patient: Coding Level of Care Code 96311 Subseq Hosp Care Lvl 2 Diagnoses Pneumonia due to COVID-19 virus U07.1; J12.82 Acute and chronic respiratory failure with hypoxia J96.21 Elevated serum creatinine R79.89 Obstructive sleep apnea syndrome G47.33 Hypertension I10 Hypertension type: essential hypertension Diabetes mellitus type 2 in obese E11.69; E66.9 Hypothyroidism E03.9 CAD S/P percutaneous coronary angioplasty I25.10; Z98.61 (1) Hypertension Hypertension type: essential hypertension Qualified Code(s): I10 - Essential (primary) hypertension
[2021-06-15] MEDS: FLUTICASONE/VILANTEROL 100/25MCG 14 PUFFS/INHALER INH SCH (08:52)
[2021-06-15] MEDS: dexAMETHasone 6 MG in SYRINGE 0 ML IV SCH (08:52)
[2021-06-15 09:50] LABS: Estimated Average Glucose 258 mg/dl; Hemoglobin A1C 10.6 % (4.5-5.6)
[2021-06-15] MEDS: ENOXAPARIN INJ 40 MG/0.4 ML SYR SQ SCH ×2 (09:57→20:46)
[2021-06-15] MEDS: INSULIN ASPART 100 UNITS/ML 3 ML PEN SC SCH ×4 (09:57→20:55)
[2021-06-15] MEDS: BARICITINIB 2 MG TAB PO SCH (11:39)
[2021-06-15] MEDS: traMADol HCL 50 MG TABLET PO PRN ×2 (12:38→21:47)
--- NOTE | 2021-06-15 14:32 | Pharmacy Report ---
Pharmacy Glycemic Short Note 2 - Date of Service June 15, 2021 - Glycemic Short BSG Results (Last 24 hours): 06/14/21 06/14/21 06/14/21 16:09 20:48 21:45 Glucose 68 L POC Glucose 131 H 136 H 06/15/21 06/15/21 06/15/21 05:49 07:24 11:30 Glucose 194 H POC Glucose 206 H 268 H OUTPATIENT ANTIDIABETIC REGIMEN: * u500 60 UNITS W/ Breakfast, Lunch, Dinner * a1C 10.6% 06/15 ASSESSMENT: * Patient admitted with COVID-19 pneumonia, started on dexamethasone 6 mg last PM * On previous admission patient usually requires ~50% of outpatient dosing, however with use of steroids may anticipate an increased need. Therefore will gave full dose of U500 this morning (given ~10 am) * Lunch BSG elevated, however, suspect this dose may stack with AM dose since previous dose later in morning, reduced home dosing to 40 units. Tightened correction factor. * Will reassess with dinner dose- may need to start insulin infusion if unable to gauge dosing and BSGs increase PLAN FOR INPATIENT GLYCEMIC CONTROL: * Basal insulin * U500 60 units with breakfast, 40 units with lunch, further dosing TBD * Bolus insulin * NovoLog per scale ACHS or Q6hrs while NPO * Goal Range: Low 120 mg/dL - High 160 mg/dL * Correction Factor: 10 mg/dL/unit
[2021-06-16] MEDS: LEVOTHYROXINE SODIUM 88 MCG TABLET PO SCH (05:39)
[2021-06-16] MEDS: traMADol HCL 50 MG TABLET PO PRN (05:39)
--- NOTE | 2021-06-16 06:02 | Electrocardiogram Report ---
Test Reason : Blood Pressure : / mmHG Vent. Rate : 078 BPM Atrial Rate : 078 BPM P-R Int : 172 ms QRS Dur : 094 ms QT Int : 388 ms P-R-T Axes : 000 007 037 degrees QTc Int : 442 ms Poor data quality, interpretation may be adversely affected Normal sinus rhythm Poor R wave progression, consider anterior TN vs. lead placement vs. LVH Abnormal ECG When compared with ECG of 08-MAR-2021 14:46, No significant change was found Confirmed by Charles Sommers ([id number]) on 06/16/2021 6:02:22 AM Referred By: Confirmed By:Charles Sommers
[2021-06-16] MEDS: INSULIN ASPART 100 UNITS/ML 3 ML PEN SC SCH ×4 (09:10→21:04)
[2021-06-16] MEDS: BARICITINIB 2 MG TAB PO SCH (09:11)
[2021-06-16] MEDS: dexAMETHasone 6 MG in SYRINGE 0 ML IV SCH (09:12)
[2021-06-16] MEDS: FLUTICASONE/VILANTEROL 100/25MCG 14 PUFFS/INHALER INH SCH (09:12)
[2021-06-16] MEDS: ENOXAPARIN INJ 40 MG/0.4 ML SYR SQ SCH ×2 (09:12→21:02)
--- NOTE | 2021-06-16 14:41 | Pharmacy Report ---
Pharmacy Glycemic Short Note 2 - Date of Service June 16, 2021 - Glycemic Short BSG Results (Last 24 hours): 06/15/21 06/15/21 06/16/21 16:47 20:41 08:23 POC Glucose 187 H 176 H 118 H 06/16/21 12:51 POC Glucose 161 H OUTPATIENT ANTIDIABETIC REGIMEN: * u500 60 UNITS W/ Breakfast, Lunch, Dinner * HbA1C 10.6% 06/15 ASSESSMENT: 06/16 * BSGs well-controlled overnight and so far today with U-500 insulin and Novolog CF ACHS * Will scale back on U-500 today given significant decrease in fasting BSG to 118 mg/dL this morning 06/15 * Patient admitted with COVID-19 pneumonia, started on dexamethasone 6 mg last PM * On previous admission patient usually requires ~50% of outpatient dosing, however with use of steroids may anticipate an increased need. Therefore will gave full dose of U500 this morning (given ~10 am) * Lunch BSG elevated, however, suspect this dose may stack with AM dose since previous dose later in morning, reduced home dosing to 40 units. Tightened correction factor. * Will reassess with dinner dose- may need to start insulin infusion if unable to gauge dosing and BSGs increase PLAN FOR INPATIENT GLYCEMIC CONTROL: * Basal insulin * U500 60 units with breakfast, 40 units with lunch, 40 units with dinner * Bolus insulin * NovoLog per scale ACHS or Q6hrs while NPO * Goal Range: Low 120 mg/dL - High 160 mg/dL * Correction Factor: 10 mg/dL/unit
--- NOTE | 2021-06-16 16:58 | Hospitalist Progress Note ---
Date of Service June 16, 2021 Assessment & Plan (1) Pneumonia due to COVID-19 virus: Plan: Partially vaccinated - x1 dose Moderna 08/2020 Dexamethasone 6mg IV daily and Baricitinib. LD 06/27 Incentive spirometry continue to Encourage pronation (2) Acute and chronic respiratory failure with hypoxia: Plan: Aim O2 > 94% with HFNC, CPAP HS. typically is on 3 L at home (3) Elevated serum creatinine: Plan: Suspect from hypoxia and diarrhea. no additional diarrhea hermelinda on ckd 3 (4) Obstructive sleep apnea syndrome: Plan: CPAP HS. (5) Hypertension: Plan: Hold anti-hypertensives due to hypotension on arrival and bp stable so far (6) Diabetes mellitus type 2 in obese: Plan: HbA1C 7.9 Consult pharmacy for glycemic control in setting of steroid use. Hypoglycemic on admission (7) Hypothyroidism: Plan: TSH 2.578 in December. Continue levothyroxine 88 mcg PO daily (8) CAD S/P percutaneous coronary angioplasty: Plan: s/p BIB stent placed in December 2017 due to persistent exertional dyspnea and chest pain No antiplatelets due to recurrent anemia. On no BB - unclear reason why. Holding losartan as above. Continue rosuvastatin. Plan: VTE prophylaxis - scd cautiously restart chemoprophylaxis Diet - T2DM Disposition - admit to PCU, low tolerance for escalation of care Admission and Anticipated Discharge Date Admission Date: June 14, 2021 Subjective Patient is improving but still requiring oxygen slightly up to 6L, typically is on 3 at home. She still feels subjective shortness of breath and has a cough although now less mucus production Review of Systems Review of Systems: Moderate distress and fatigue no headache, no visual changes no speech or swallowing issues no chest pain, pressure or palpitations Continue shortness of breath, lessening productive cough no abdominal pain, nausea or vomiting, diarrhea or constipation no dysuria, hematuria or frequency no focal joint pain or swelling no back pain, CVA tenderness or radicular pain no bruising, bleeding or rashes no focal signs of weakness or numbness or altered sensation no complaints of anxiety or depression.. Physical Exam Physical Exam: The patient remains significantly ill and short of breath Vital signs as documented. Head exam is normocephalic atraumatic Neck is without JVD, thyromegaly, or carotid bruits. Lungs are with persistent rales bilaterally, consistent with covid pneumonia Cardiac exam, Rhythm is regular.. No murmurs, rubs or gallops. Abdominal exam reveals normal bowel sounds, soft non tender, no masses Extremities are trace edema bilaterally and both pedal pulses are present Neurologic exam is alert and oriented, no focal loss of strength or sensation Skin is without bruises or rashes Psychologically is without concerns for anxiety or depression.. Results & Data Results & Data ([facility]) Vital Signs (Past 12 Hours) Vital Signs Temp Pulse Resp BP Pulse Ox 06/16/21 15:39 97.9 F 77 20 145/81 H 91 06/16/21 12:27 98.1 F 72 18 136/56 L 93 06/16/21 07:34 97.7 F 72 18 142/64 H 92 PG Care Time/CCT Total # of Minutes Spent Total Time Spent with Patient: Total time spent is greater than 50% in coordination of care (as documented) at patient's floor/unit and/or counseling patient: Coding Level of Care Code 54782 Subseq Hosp Care Lvl 3 Diagnoses Pneumonia due to COVID-19 virus U07.1; J12.82 Acute and chronic respiratory failure with hypoxia J96.21 Elevated serum creatinine R79.89 Obstructive sleep apnea syndrome G47.33 Hypertension I10 Hypertension type: essential hypertension Diabetes mellitus type 2 in obese E11.69; E66.9 Hypothyroidism E03.9 CAD S/P percutaneous coronary angioplasty I25.10; Z98.61 (1) Hypertension Hypertension type: essential hypertension Qualified Code(s): I10 - Essential (primary) hypertension
[2021-06-16] MEDS: ROSUVASTATIN CALCIUM 20 MG TAB PO SCH (21:04)
[2021-06-16] MEDS: MONTELUKAST SODIUM 10 MG TABLET PO SCH (21:04)
[2021-06-17] MEDS ORDERED: INSULIN ASPART 100 UNITS/ML 3 ML PEN SC ONE (02:00)
[2021-06-17] MEDS: LEVOTHYROXINE SODIUM 88 MCG TABLET PO SCH (05:45)
[2021-06-17] MEDS: traMADol HCL 50 MG TABLET PO PRN ×2 (05:45→13:34)
[2021-06-17] MEDS: FLUTICASONE/VILANTEROL 100/25MCG 14 PUFFS/INHALER INH SCH (08:48)
[2021-06-17] MEDS: dexAMETHasone 6 MG in SYRINGE 0 ML IV SCH (08:48)
[2021-06-17] MEDS: ENOXAPARIN INJ 40 MG/0.4 ML SYR SQ SCH (08:48)
[2021-06-17] MEDS: INSULIN ASPART 100 UNITS/ML 3 ML PEN SC SCH (08:49)
[2021-06-17] MEDS ORDERED: EPOETIN ALFA 40,000 UNITS/ML VIAL IV ONE (12:12)
--- NOTE | 2021-06-17 13:20 | Discharge Summary ---
Date of Service June 17, 2021 Admission HPI Per Admitting Provider Lucy Molina is a 65 year old female who presents to the ER with shortness of breath and hypoxia. Seen with at bedside. She reports 1.5 weeks of symptoms including fever, chills, shortness of breath, cough, loss of taste and smell, myalgias, diarrhea, nausea, vomiting, nasal congestion, fatigue. She denies any sore throat, headache, chest or abdominal pain. She reports new onset hemoptysis this weekend with increased cough. Her has also been sick with similar symptoms. She is partially immunized with one dose of the Moderna vaccination in August. She had some adverse reaction to this vaccine although the details are not clear she reports having palpitations but did not need to be hospitalized. She reports her PCP advised her not to get a second vaccination. She is chronically on 3LPM O2 after influenza and secondary bacterial pneumonia 3.5 years ago. On procrit due to CKD and probable slow GI bleed with extensive workup in the past. Despite having a prior cardiac stent she was advised not to take antiplatelets due to recurrent anemia. CPAP at night due to [facility] but she does not know the settings. In the ER SARS-COV-2 PCR is positive. She is requiring 60% FiO2 25 LPM to maint ain O2 sats > 94% at rest. CRP 12.9. She was referred to medicine for admission and ongoing management of COVID-19 pneumonia. Principal Diagnosis acute & chronic hypoxic respiratory failure, covid pneumonia chronic anemia Discharge Exam The patient appeared stable but chronically ill Vital signs as documented. Lungs are without rales with poor air movement all lung eli Cardiac exam, Rhythm is regular.. No murmurs, rubs or gallops. Abdominal exam reveals normal bowel sounds, soft non tender, no masses Extremities are trace edematous and both pedal pulses are normal. Neurologic exam is alert and oriented, no focal loss of strength or sensation Skin is without bruises or rashes Psychologically is without concerns for anxiety or depression. Discharge Data Allergies Allergy/AdvReac Type Severity Reaction Status Date / Time Iodinated Contrast Media Allergy Severe Hives and Verified 06/14/21 16:49 kidney complications iodine Allergy Severe Hives and Verified 06/14/21 16:49 kidney complications shellfish derived Allergy Severe Anaphylaxis Verified 06/14/21 16:49 /Hives sulfite Allergy Severe HIVES AND Verified 11/23/21 16:49 THROAT CLOSES Consultations 06/14/21 16:59 ED Decision to Admit Stat Hospital Course (1) Pneumonia due to COVID-19 virus: Partially vaccinated - x1 dose Moderna 08/2020 Dexamethasone 6mg and Baricitinib. pt wants to go home will transition to po decadron as outpt to complete 10 days continue to Encourage pronation, and ambulation (2) Acute and chronic respiratory failure with hypoxia: acute phase resolving, typically is on 3 L at home will go home on 4 L (3) Elevated serum creatinine: Suspect from hypoxia and diarrhea. no additional diarrhea hermelinda on ckd 3, resolved (4) Obstructive sleep apnea syndrome: CPAP HS. (5) Hypertension: Hold anti-hypertensives due to hypotension on arrival and bp stable so far (6) Diabetes mellitus type 2 in obese: HbA1C 7.9 Consult pharmacy for glycemic control in setting of steroid use. Hypoglycemic on admission (7) Hypothyroidism: TSH 2.578 in December. Continue levothyroxine 88 mcg PO daily (8) CAD S/P percutaneous coronary angioplasty: s/p BIB stent placed in December 2017 due to persistent exertional dyspnea and chest pain No antiplatelets due to recurrent anemia. On no BB - unclear reason why. Holding losartan as above. Continue rosuvastatin. (9) Anemia of chronic disease: pt requested pro crit injection as missed her appointment 40,000 units given today Total Time Total Time Spent Total Time Spent (In Minutes): It required greater than 30 minutes to prepare this patient for discharge Discharge Plan Discharge Items Patient Disposition: Home - Self-Care Reason For Visit: COVID-19, ACUTE HYPOXIC RESPIRATORY FAILURE Discharge Diagnosis: worsening respiratory distress low oxygen covid infection Condition on Discharge: Critical Activity: Per Instructions section Activity Comment: slowly increase activity Non-emergency contact: Primary Care Provider Call non-emergency contact if: your symptoms worsen and you have a fever Follow-up/Referrals: Aiyana Asencio MD [Primary Care Provider] - Diet: Carb Consistent or DM2 Addtl Attending Provider Instructions: increase your oxygen to 4L per minute, and do not reduce until evalated in doctors office, you may need additional oxygen for up to a month for the time being do not take your losartan complete higher steroid dose for another week, Dexamethasone 6 mg a day during the time when you are on higher steroids, your blood sugar may be high, please cover with your insulin scale and be more stringent with your diet please be on home isolation until 06/23/21 Home Isolation COVID-19 Instructions The following information about Home Isolation is from the CDC Website: https://www.cdc.gov/coronavirus/2019-ncov/hcp/fdffnjxn-sobevhb-mvbnim.html Stay home except to get medical care People who are mildly ill with COVID-19 are able to isolate at home during their illness. You should restrict activities outside your home, except for getting medical care. Do not go to work, school, or public areas. Avoid using public transportation, ride-sharing, or taxis. Separate yourself from other people and animals in your home People: As much as possible, you should stay in a specific room and away from other people in your home. Also, you should use a separate bathroom, if available. Animals: You should restrict contact with pets and other animals while you are sick with COVID-19, just like you would around other people. Although there have not been reports of pets or other animals becoming sick with COVID-19, it is still recommended that people sick with COVID-19 limit contact with animals until more information is known about the virus. When possible, have another member of your household care for your animals while you are sick. If you are sick with COVID-19, avoid contact with your pet, including petting, snuggling, being kissed or licked, and sharing food. If you must care for your pet or be around animals while you are sick, wash your hands before and after you interact with pets and wear a face mask. Call ahead before visiting your doctor If you have a medical appointment, call the healthcare provider and tell them that you have or may have COVID-19. This will help the healthcare providers office take steps to keep other people from getting infected or exposed. Wear a face mask You should wear a face mask when you are around other people (e.g., sharing a room or vehicle) or pets and before you enter a healthcare providers office. If you are not able to wear a face mask (for example, because it causes trouble breathing), then people who live with you should not stay in the same room with you, or they should wear a face mask if they enter your room. Cover your coughs and sneezes Cover your mouth and nose with a tissue when you cough or sneeze. Throw used tissues in a lined trash can. Immediately wash your hands with soap and water for at least 20 seconds or, if soap and water are not available, clean your hands with an alcohol-based hand cdl service technician that contains at least 60% alcohol. Clean your hands often Wash your hands often with soap and water for at least 20 seconds, especially after blowing your nose, coughing, or sneezing; going to the bathroom; and before eating or preparing food. If soap and water are not readily available, use an alcohol-based hand cdl service technician with at least 60% alcohol, covering all surfaces of your hands and rubbing them together until they feel dry. Soap and water are the best option if hands are visibly dirty. Avoid touching your eyes, nose, and mouth with unwashed hands. Avoid sharing personal household items You should not share dishes, drinking glasses, cups, eating utensils, towels, or bedding with other people or pets in your home. After using these items, they should be washed thoroughly with soap and water. Clean all high-touch surfaces everyday High touch surfaces include counters, tabletops, doorknobs, bathroom fixtures, toilets, phones, keyboards, tablets, and bedside tables. Also, clean any surfaces that may have blood, stool, or body fluids on them. Use a household cleaning spray or wipe, according to the label instructions. Labels contain instructions for safe and effective use of the cleaning product including precautions you should take when applying the product, such as wearing gloves and making sure you have good ventilation during use of the product. Monitor your symptoms Seek prompt medical attention if your illness is worsening (e.g., difficulty breathing).Beforeseeking care, call your healthcare provider and tell them that you have, or are being evaluated for, COVID-19. Put on a face mask before you enter the facility. These steps will help the healthcare providers office to keep other people in the office or waiting room from getting infected or exposed. Ask your healthcare provider to call the local or [facility] health department. Persons who are placed under active monitoring or facilitated self- monitoring should follow instructions provided by their local health department or occupational health professionals, as appropriate. When working with your local health department check their available hours. If you have a medical emergency and need to call 911, notify the dispatch personnel that you have, or are being evaluated for COVID-19. If possible, put on a face mask before emergency medical services arrive. Discontinuing home isolation Patients with confirmed COVID-19 should remain under home isolation precautions until the risk of secondary transmission to others is thought to be low. The decision to discontinue home isolation precautions should be made on a xrni-um-gonm basis, in consultation with healthcare providers and state and local health departments. Pending Studies at Discharge: No Stand-Alone Forms: My [facility], Smoking Cessation Medications and DC Order Prescriptions: New dexamethasone [Decadron] 4 mg tablet 6 mg PO DAILY Qty: 11 RF: 0 (DME) Oxygen Home Liters Per Minute See Rx Instructions .Route Qty: 4 RF: 0 Continued levalbuterol HCl 0.63 mg/3 mL solution for nebulization 0.63 mg inhalation TID PRN (Reason: shortness of breath or wheezing) Qty: 270 RF: 3 nitroglycerin 0.4 mg tablet, sublingual 0.4 mg sublingual Q5M PRN (Reason: Chest Pain) RF: 0 fluticasone propion-salmeterol [Advair Diskus] 100-50 mcg/dose blister with device 1 inh inhalation BID Qty: 60 RF: 2 levalbuterol tartrate [Xopenex HFA] 45 mcg/actuation HFA aerosol inhaler 2 inh INHALATION Q4H PRN (Reason: Shortness Of Breath Or Wheezing) Qty: 15 RF: 5 insulin regular hum U-500 conc 500 unit/mL (3 mL) insulin pen See Rx Instructions .ROUTE .COMPLEX RF: 0 levothyroxine 88 mcg Tablet 88 mcg PO QAM RF: 0 rosuvastatin 20 mg tablet 20 mg PO HS RF: 0 tramadol 50 mg tablet 50 mg PO Q6H PRN (Reason: Pain) RF: 0 montelukast 10 mg tablet 10 mg PO HS RF: 0 Procrit 2,000 unit/mL Solution 0 unit subcut UD RF: 0 amlodipine 5 mg tablet 5 mg PO QAM RF: 0 Discontinued losartan 50 mg tablet 50 mg PO HS RF: 0 Discharge Orders: Discharge Order (Routine); Ordered 06/17/21 Ordered By: Isaias Johnson Admission Data Admit Date/Time: 06/14/21 18:18 Attending Provider: Isaias Johnson Admit Provider: Greg Stahl Primary Care Provider: Aiyana Asencio Other Providers: Greg Stahl Coding Level of Care Code D/C DAY MANAGEMENT >30 MINS Diagnoses Pneumonia due to COVID-19 virus U07.1; J12.82 Acute and chronic respiratory failure with hypoxia J96.21 Elevated serum creatinine R79.89 Obstructive sleep apnea syndrome G47.33 Hypertension I10 Hypertension type: essential hypertension Diabetes mellitus type 2 in obese E11.69; E66.9 Hypothyroidism E03.9 CAD S/P percutaneous coronary angioplasty I25.10; Z98.61 Anemia of chronic disease D63.8
[2021-06-17] MEDS: BARICITINIB 2 MG TAB PO SCH (13:35)
== END 2021-06-17 14:45 | disposition home or self-care (01) | DRG 177 ==
LOC: ED 12:40 → SUATTDRO 18:18 → 2E 18:18 → 2S 06-16 17:11

== ENCOUNTER 2022-07-05 20:15 | Inpatient (IN) ==
[2022-07-05] MEDS ORDERED: PIPERACILLIN/TAZOBACTAM 4.5 GM/120 ML BAG IV ONE (20:40)
[2022-07-05] MEDS ORDERED: DAPTOmycin 275 MG in SYRINGE 0 ML IV SCH (20:45)
[2022-07-05 20:52] LABS: Basophils # (auto) 0.04 K/uL (0-0.2); Basophils % (auto) 0.4 %; Eosinophils # (auto) 0.11 K/uL (0-0.50); Hematocrit (blood only) 31.8 % (34.1-44.9); Hemoglobin 9.7 g/dl (12.0-16.0); Immature Granulocytes # (auto) 0.13 K/uL (0.00-0.02); Immature Granulocytes % (auto) 1.2 %; Lymphocytes # (auto) 1.22 K/uL (1.2-3.4); Lymphocytes % (auto) 11.1 %; Mean Corpuscular Hemoglobin 26.9 pg (25.0-34.0); Mean Corpuscular Hgb Conc 30.5 g/dL (32.0-36.0); Mean Corpuscular Volume 88.3 fL (80.0-100.0); Mean Platelet Volume 11.4 fL (9.4-12.3); Monocytes # (auto) 0.75 K/uL (0.24-0.82); Monocytes % (auto) 6.8 %; Neutrophils # (auto) 8.74 K/uL (1.4-6.5); Neutrophils % (auto) 79.5 %; Platelet Count 202 K/uL (130-400); RDW Coefficient of Variation 19.3 % (11.5-14.5); RDW Standard Deviation 62.7 fL (36.4-46.3); White Blood Count 10.99 K/ul (4.8-10.8)
[2022-07-05 21:20] LABS: INR 1.3 (0.9-1.1); Prothrombin Time 13.2 Seconds (9.0-12.0)
[2022-07-05 21:27] LABS: Albumin Globulin Ratio 0.9 (0.9-2); Albumin Level 3.4 gm/dl (3.4-5.0); Calcium 9.2 mg/dl (8.5-10.1); Creatinine Clr Calc Pharmacy 49.4 ml/min; Est GFR (African American) 39.1 ml/min; Est GFR (Non-African American) 33.7 ml/min; Globulin 3.6 gm/dl (2.5-4.0); Magnesium 2.4 mg/dl (1.7-2.4); Potassium 3.8 mmol/L (3.5-5.1)
[2022-07-05 22:09] LABS: Influenza A virus by PCR Negative (Neg); Influenza B virus by PCR Negative (Neg); RSV by PCR Negative (Neg); SARS CoV2 RNA(COVID-19) Ceph NEGATIVE (Negative)
--- NOTE | 2022-07-05 22:10 | Emergency Department Note ---
Impression & Plan Cellulitis of abdominal wall, CKD (chronic kidney disease), Elevated troponin, Syncope, Hyperglycemia due to type 2 diabetes mellitus ED Provider Note NAME: GREY LOU AGE: 66 SEX: F ARRIVES VIA: Ambulance INFORMANT: Patient ED PROVIDER(S): Hector Lobato MD CHIEF COMPLAINT: Syncope, Abdominal wall cellulitis PLAN: Disposition: Admit MEDICAL DECISION MAKING: The patient is a pleasant 66-year-old woman with a past medical history of ch ronic respiratory failure with hypoxia on home oxygen, CAD, diabetes, GERD, hypertension, lymphedema, morbid obesity, obesity hypoventilation syndrome who presents to the emergency department via EMS for evaluation of cute onset cellulitis of her lower abdomen and also a syncopal episode which occurred as she was attempting to get ready to come to the emergency department for evaluation tonight. Patient reports she noticed the redness and pain in her lower abdomen this morning for the first time and due to the worsening had planned to come to the emergency department. She reports walking from her bedroom to her recliner and then has a lapse in memory and per EMS report from family the patient was unresponsive for 10-15 minutes. Patient denies falling to the ground. She reports having a fever today of 100.9. She otherwise denies nausea, vomiting, diarrhea. She denies any cough or congestion. She denies any chest pain or shortness of breath from her baseline. Patient denies any i ncreased weight gain or edema in her legs which she reports are at baseline. On arrival the patient is no acute distress, afebrile with heart rate in the 110s and vital signs otherwise stable. She appears chronically hypervolemic. The patient has erythema warmth and tenderness across her lower abdomen/pannus with induration without areas of fluctuance. There is no crepitus. EKG without overt acute ischemia. WBC 10.9 with neutrophil predominance and mild left shift. H/H similar to prior. Platelets within normal limits. Glucose 407. Chemistry without metabolic acidosis. Creatinine 1.5 within patient's prior baseline range. LFTs unremarkable. High-sensitivity troponin 20.6, nonspecific in the setting of the patient CKD. Procalcitonin is not elevated. Blood cultures were drawn and the patient was ordered for empiric Zosyn and daptomycin given her risk factors and rapid progression of abdominal wall cellulitis. CT of the abdomen pelvis was performed and per preliminary stat read report demonstrates fat stranding and skin thickening consistent with the patient cellulitis. There is no gas or fluid collection. Patient agrees with plan for admission for further management. Case was discussed with Dr. Johnson [facility] hospitalist, who will evaluate the patient for admission. Triage Nursing notes reviewed and agree them. Prior medical records reviewed Vital Signs: reviewed Differential diagnosis: Vasovagal event, dehydration, infection, hypoglycemia, electrolyte abnormalities, cardiac sources, intracerebral event, pulmonary embolism, seizure, toxicologic, neurologic, as well as other pathologies. ER treatment provided: See below. Diagnostics interpreted by me: ECG: Sinus tachycardia, 103 bpm, no ectopy, no overt ST ovation or depression, QTC 461, QRS 92. Cardiac Monitoring: An order for continuous cardiac monitoring was placed and demonstrated Sinus tachycardia, 103 bpm, no ectopy. Laboratory studies: See below Imaging studies: See below Consultation(s): Dr. Johnson [facility] hospitalist HPI: The patient is a pleasant 66-year-old woman with a past medical history of chronic respiratory failure with hypoxia on home oxygen, CAD, diabetes, GERD, hypertension, lymphedema, morbid obesity, obesity hypoventilation syndrome who presents to the emergency department via EMS for evaluation of cute onset cellulitis of her lower abdomen and also a syncopal episode which occurred as she was attempting to get ready to come to the emergency department for evaluation tonight. Patient reports she noticed the redness and pain in her lower abdomen this morning for the first time and due to the worsening had planned to come to the emergency department. She reports walking from her bedroom to her recliner and then has a lapse in memory and per EMS report from family the patient was unresponsive for 10-15 minutes. Patient denies falling to the ground. She reports having a fever today of 100.9. She otherwise denies nausea, vomiting, diarrhea. She denies any cough or congestion. She denies any chest pain or shortness of breath from her baseline. Patient denies any i ncreased weight gain or edema in her legs which she reports are at baseline. ROS: See above HPI for pertinent positives & negatives. A total of 10 systems reviewed and were otherwise negative. VITALS:See Below PHYSICAL EXAMINATION: GENERAL: Awake, alert, fatigued-appearing, in no distress, BMI 66.9. HENT: Normocephalic, atraumatic. Oropharynx unremarkable. EYES: Normal conjunctiva. Sclera non-icteric. NECK: Supple. No nuchal rigidity. FROM. No JVD. RESPIRATORY: Clear to auscultation. CARDIAC: Regular rate, normal rhythm. Extremities warm and well perfused. Pulses equal. ABDOMEN: Soft, non-distended. Erythema warmth, induration and tenderness of the lower abdominal wall/pannus without crepitus or areas of fluctuance. No rebound or guarding. No masses. RECTAL: Deferred. MUSCULOSKELETAL: Chest examination reveals no tenderness. The back is symmetrical on inspection without obvious abnormality. There is no CVA tenderness to palpation. No joint edema. LOWER EXTREMITIES: Calves are equal size bilaterally and non-tender. 2+ BLE lymphedema edema. No discoloration. NEURO: Normal sensorium. No sensory or motor deficits noted. SKIN: Warm/dry. No jaundice noted. Hector Lobato MD Past Med/Surg History Medical History Acute respiratory failure with hypoxia Anemia ARDS (adult respiratory distress syndrome) Breathlessness CAD S/P percutaneous coronary angioplasty Chest pain Chronic respiratory failure 1 to 2 L oxygen COVID-19 Diabetes Diverticulitis Dyspnea GERD (gastroesophageal reflux disease) Hypertension Lymphedema Morbid obesity Morbid obesity due to excess calories Obesity hypoventilation syndrome Obstructive sleep apnea syndrome Proteinuria Secondary pulmonary hypertension Shortness of breath SOB (shortness of breath) Stage 3b chronic kidney disease Thyroid cancer Vitamin D deficiency Surgical History H/O endoscopy H/O partial thyroidectomy History of colonoscopy History of percutaneous coronary intervention Family History Other Diabetes Heart disease No pertinent family history Social History Smoking Status: Never smoker Second Hand Exposure: No; Hx Alcohol Use: No Hx Substance Use: No Preferred Language: Icelandic 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 Ability: Effective Gas Blender Required: No Beliefs That Will Affect Care: None marital status: Current Living Situation: Spouse Current Living Situation Comment: current occupational status: disabled Feels Safe at Home: Yes Diet Comment: low carb high protein "like a gastirc bypass diet" states seeing nutrionist caffeine: Yes during the past year weight has: increased > 10 lbs Physical Activity Frequency: Does not Exercise Do you think of yourself as: straight/heterosexual Gender Identity: Female Assistive Devices: Oxygen - Continuous and Wheelchair Allergies Allergies Allergy/AdvReac Type Severity Reaction Status Date / Time Iodinated Contrast Media Allergy Severe Hives and Verified 07/05/22 23:08 kidney complications iodine Allergy Severe Hives and Verified 07/05/22 23:08 kidney complications shellfish derived Allergy Severe Anaphylaxis Verified 07/05/22 23:08 /Hives sulfite Allergy Severe HIVES AND Verified 07/05/22 23:08 THROAT CLOSES Home Meds Home Medications Medication Instructions Recorded Confirmed insulin regular hum U-500 conc 500 See Rx Instructions .Route .COMPLEX 08/16/18 07/05/22 unit/mL(3 mL) subcut pen rosuvastatin 20 mg tablet 20 mg PO HS 02/26/19 07/05/22 tramadol 50 mg tablet 50 mg PO Q6H PRN Pain 05/17/20 07/05/22 montelukast 10 mg tablet 10 mg PO HS 09/27/20 07/05/22 nitroglycerin 0.4 mg sublingual 0.4 mg sublingual Q5M PRN Chest 11/30/20 07/05/22 tablet Pain epoetin milo 2,000 unit/mL 2,000 unit subcut .Q2WKS PRN LOW 08/26/21 07/05/22 injection solution (Procrit) COUNT furosemide 20 mg tablet 20 mg PO DAILY 07/05/22 07/05/22 levothyroxine 112 mcg tablet 112 mcg PO DAILY 07/05/22 07/05/22 Previous Rx's Medication Instructions Recorded levalbuterol tartrate 45 2 inh inhalation Q4H PRN Shortness 11/30/20 mcg/actuation aerosol inhaler Of Breath Or Wheezing #15 grams (Xopenex HFA) levalbuterol HCl 0.63 mg/3 mL 0.63 mg (3 mL) inhalation TID PRN 01/31/21 solution for nebulization shortness of breath or wheezing #270 mL Oxygen Home #4 L 06/17/21 Results & Data (ED) Vital Signs Vital Signs - 24 hr 07/05/22 20:32 07/05/22 22:09 Temperature 37.2 C Temperature Source Oral Pulse Rate 115 H Pulse Rate from SpO2 Sensor 90 Pulse Rhythm Regular Pulse Strength Normal Respiratory Rate 20 Blood Pressure 111/56 L 130/48 L Blood Pressure Mean 74 75 Blood Pressure Position Lying Pulse Oximetry 97 94 Oxygen Delivery Method Room Air Oxygen Flow Rate 4 Sepsis Recent Fever Within 48 Hours No Sepsis New/Unexplained Change in Mental Status N/A Sepsis Action Taken by Nursing No Action Required Laboratory Data Attestation: I reviewed the patient's lab results. Result diagrams: 07/05/22 20:35 07/05/22 20:35 Lab Results 07/05/22 07/05/22 07/05/22 Range/Units 20:35 20:35 20:35 WBC 10.99 H (4.8-10.8) K/ul RBC 3.60 L (3.93-5.22) M/uL Hgb 9.7 L (12.0-16.0) g/dl Hct 31.8 L (34.1-44.9) % MCV 88.3 (80.0-100.0) fL MCH 26.9 (25.0-34.0) pg MCHC 30.5 L (32.0-36.0) g/dL RDW Std Deviation 62.7 H (36.4-46.3) fL RDW Coeff of Cherelle 19.3 H (11.5-14.5) % Plt Count 202 (130-400) K/uL MPV 11.4 (9.4-12.3) fL Immature Gran % (Auto) 1.2 % Neut % (Auto) 79.5 % Lymph % (Auto) 11.1 % Sawyer % (Auto) 6.8 % Eos % (Auto) 1.0 % Baso % (Auto) 0.4 % Neut # (Auto) 8.74 H (1.4-6.5) K/uL Lymph # (Auto) 1.22 (1.2-3.4) K/uL Sawyer # (Auto) 0.75 (0.24-0.82) K/uL Eos # (Auto) 0.11 (0-0.50) K/uL Baso # (Auto) 0.04 (0-0.2) K/uL Immature Gran # (Auto) 0.13 H (0.00-0.02) K/uL PT 13.2 H (9.0-12.0) Seconds INR 1.3 H (0.9-1.1) Sodium 134 L (136-145) mmol/L Potassium 3.8 (3.5-5.1) mmol/L Chloride 99 (98-107) mmol/L Carbon Dioxide 26 (21-32) mmol/L Anion Gap 9 (3-11) BUN 30 H (6-23) mg/dl Creatinine 1.58 H (0.6-1.2) mg/dl Est Cr Clr Drug Dosing 49.4 ml/min Est GFR ( Amer) 39.1 ml/min Est GFR (Non-Af Amer) 33.7 ml/min BUN/Creatinine Ratio 19.0 (10-20) Glucose 407 H* (70-99(Fasting)) mg/dl Lactate (0.4-2.0) mmol/L Calcium 9.2 (8.5-10.1) mg/dl Magnesium 2.4 (1.7-2.4) mg/dl Total Bilirubin 1.0 (0.2-1.0) mg/dl AST 15 (13-39) U/L ALT 11 (7-52) U/L Alkaline Phosphatase 89 (34-104) U/L Troponin I High Sens (0-14) pg/ml Total Protein 7.0 (6.0-8.3) gm/dl Albumin 3.4 (3.4-5.0) gm/dl Globulin 3.6 (2.5-4.0) gm/dl Albumin/Globulin Ratio 0.9 (0.9-2) Procalcitonin (0-0.5) ng/ml TSH (0.300-4.500) uIu/ml SARS-CoV-2 (PCR) (Negative) Influenza Type A (PCR) (Neg) Influenza Type B (PCR) (Neg) RSV (RT-PCR) (Neg) 07/05/22 07/05/22 07/05/22 Range/Units 20:35 20:35 20:35 WBC (4.8-10.8) K/ul RBC (3.93-5.22) M/uL Hgb (12.0-16.0) g/dl Hct (34.1-44.9) % MCV (80.0-100.0) fL MCH (25.0-34.0) pg MCHC (32.0-36.0) g/dL RDW Std Deviation (36.4-46.3) fL RDW Coeff of Cherelle (11.5-14.5) % Plt Count (130-400) K/uL MPV (9.4-12.3) fL Immature Gran % (Auto) % Neut % (Auto) % Lymph % (Auto) % Sawyer % (Auto) % Eos % (Auto) % Baso % (Auto) % Neut # (Auto) (1.4-6.5) K/uL Lymph # (Auto) (1.2-3.4) K/uL Sawyer # (Auto) (0.24-0.82) K/uL Eos # (Auto) (0-0.50) K/uL Baso # (Auto) (0-0.2) K/uL Immature Gran # (Auto) (0.00-0.02) K/uL PT (9.0-12.0) Seconds INR (0.9-1.1) Sodium (136-145) mmol/L Potassium (3.5-5.1) mmol/L Chloride (98-107) mmol/L Carbon Dioxide (21-32) mmol/L Anion Gap (3-11) BUN (6-23) mg/dl Creatinine (0.6-1.2) mg/dl Est Cr Clr Drug Dosing ml/min Est GFR ( Amer) ml/min Est GFR (Non-Af Amer) ml/min BUN/Creatinine Ratio (10-20) Glucose (70-99(Fasting)) mg/dl Lactate (0.4-2.0) mmol/L Calcium (8.5-10.1) mg/dl Magnesium (1.7-2.4) mg/dl Total Bilirubin (0.2-1.0) mg/dl AST (13-39) U/L ALT (7-52) U/L Alkaline Phosphatase (34-104) U/L Troponin I High Sens 28.6 H (0-14) pg/ml Total Protein (6.0-8.3) gm/dl Albumin (3.4-5.0) gm/dl Globulin (2.5-4.0) gm/dl Albumin/Globulin Ratio (0.9-2) Procalcitonin 0.09 (0-0.5) ng/ml TSH 1.536 (0.300-4.500) uIu/ml SARS-CoV-2 (PCR) (Negative) Influenza Type A (PCR) (Neg) Influenza Type B (PCR) (Neg) RSV (RT-PCR) (Neg) 07/05/22 07/05/22 Range/Units 21:19 21:40 WBC (4.8-10.8) K/ul RBC (3.93-5.22) M/uL Hgb (12.0-16.0) g/dl Hct (34.1-44.9) % MCV (80.0-100.0) fL MCH (25.0-34.0) pg MCHC (32.0-36.0) g/dL RDW Std Deviation (36.4-46.3) fL RDW Coeff of Cherelle (11.5-14.5) % Plt Count (130-400) K/uL MPV (9.4-12.3) fL Immature Gran % (Auto) % Neut % (Auto) % Lymph % (Auto) % Sawyer % (Auto) % Eos % (Auto) % Baso % (Auto) % Neut # (Auto) (1.4-6.5) K/uL Lymph # (Auto) (1.2-3.4) K/uL Sawyer # (Auto) (0.24-0.82) K/uL Eos # (Auto) (0-0.50) K/uL Baso # (Auto) (0-0.2) K/uL Immature Gran # (Auto) (0.00-0.02) K/uL PT (9.0-12.0) Seconds INR (0.9-1.1) Sodium (136-145) mmol/L Potassium (3.5-5.1) mmol/L Chloride (98-107) mmol/L Carbon Dioxide (21-32) mmol/L Anion Gap (3-11) BUN (6-23) mg/dl Creatinine (0.6-1.2) mg/dl Est Cr Clr Drug Dosing ml/min Est GFR ( Amer) ml/min Est GFR (Non-Af Amer) ml/min BUN/Creatinine Ratio (10-20) Glucose (70-99(Fasting)) mg/dl Lactate 2.1 H* (0.4-2.0) mmol/L Calcium (8.5-10.1) mg/dl Magnesium (1.7-2.4) mg/dl Total Bilirubin (0.2-1.0) mg/dl AST (13-39) U/L ALT (7-52) U/L Alkaline Phosphatase (34-104) U/L Troponin I High Sens (0-14) pg/ml Total Protein (6.0-8.3) gm/dl Albumin (3.4-5.0) gm/dl Globulin (2.5-4.0) gm/dl Albumin/Globulin Ratio (0.9-2) Procalcitonin (0-0.5) ng/ml TSH (0.300-4.500) uIu/ml SARS-CoV-2 (PCR) NEGATIVE (Negative) Influenza Type A (PCR) Negative (Neg) Influenza Type B (PCR) Negative (Neg) RSV (RT-PCR) Negative (Neg) Administered Medications Daptomycin 275 mg/ Syringe 5.5 mls @ 2.75 mls/min IV Q24H [facility]; Protocol Stop: 07/07/22 20:44 Last Admin: 07/05/22 21:55 Dose: 2.75 mls/min Documented By: [id number] Discontinued Medications Piperacillin Sod/Tazobactam Sod (Zosyn) 4.5 gm in 120 mls @ 240 mls/hr IV NOW ONE Stop: 07/05/22 21:09 Last Infusion: 07/05/22 22:07 Dose: 0 mls/hr Documented By: [id number] Admin: 07/05/22 21:16 Dose: 240 mls/hr [place]ed By: [facility] Data Radiologist's Impression: STATRAD Preliminary Findings Only See Final Report For Complete Findings CT ABDOMEN & PELVIS Without Contrast: Comparison is made to CT abdomen/pelvis on 03/25/2018. Body wall edema. Fat stranding and skin thickening along the inferior aspect of the pannus may represent cellulitis. Prominent soft tissue swelling and fat stranding partially visualized in the proximal right thigh, most prominent medially. Cellulitis is also possible. Moderate to large fat-containing umbilical hernia. Mild cardiomegaly. Trace pericardial fluid. Hepatomegaly. Borderline size of the spleen. No hydronephrosis or stone. Uterine fibroids. Small calcifications. Diverticulosis without evidence of diverticulitis. No small bowel obstruction. Appendix is not well-visualized on this exam. No CT evidence for acute appendicitis. Degenerative changes of the spine. Discharge Plan Visit Data Chief Complaint: Syncope Stated Complaint: SNYCOPE ED Provider: Hector Lobato Discharge Problem: Cellulitis of abdominal wall, CKD (chronic kidney disease), Elevated troponin, Syncope, Hyperglycemia due to type 2 diabetes mellitus Forms Stand Alone Forms: My [facility] Well Done Prescriptions Prescriptions: No Action levalbuterol HCl 0.63 mg/3 mL solution for nebulization 0.63 mg inhalation TID PRN (Reason: shortness of breath or wheezing) Qty: 270 3RF nitroglycerin 0.4 mg tablet, sublingual 0.4 mg sublingual Q5M PRN (Reason: Chest Pain) Rx Instructions: do not exceed 3 doses per episode levalbuterol tartrate [Xopenex HFA] 45 mcg/actuation HFA aerosol inhaler 2 inh INHALATION Q4H PRN (Reason: Shortness Of Breath Or Wheezing) Qty: 15 5RF insulin regular hum U-500 conc 500 unit/mL (3 mL) insulin pen See Rx Instructions .ROUTE .COMPLEX Rx Instructions: inject 60 units with breakfast and lunch, inject 60 units with dinner rosuvastatin 20 mg tablet 20 mg PO HS tramadol 50 mg tablet 50 mg PO Q6H PRN (Reason: Pain) montelukast 10 mg tablet 10 mg PO HS furosemide 20 mg tablet 20 mg PO DAILY levothyroxine 112 mcg tablet 112 mcg PO DAILY Procrit 2,000 unit/mL solution 2,000 unit subcut .Q2WKS PRN (Reason: LOW COUNT) Rx Instructions: Pt is unclear what the strength of her dose is, but knows that she receives it weekly. Patient stated that she is due for her dose, but has not received. (DME) Oxygen Home Liters Per Minute See Rx Instructions .Route Qty: 4 0RF Rx Instructions: As directed Referrals Referrals: Aiyana Asencio MD [Primary Care Provider] -
--- NOTE | 2022-07-05 23:22 | History & Physical Report ---
Date of Service July 05, 2022 Assessment & Plan (1) Cellulitis: Plan: Patient has abdominal wall cellulitis and possibly right thigh., She was given daptomycin and Zosyn we will continue these medications she is at high risk with her diabetes and morbid obesity, she does have a previous history of MRSA in her right foot in September 13 Initial Pro-Christiano is negative lactic acid is mildly elevated she is however hypoxic and tachycardic on presentation to consider SIRS Patient had a marker drawn at the line of demarcation (2) Diabetes: Plan: Patient is a type II diabetic her blood glucose is 400 on presentation given 10 units of IV regular insulin She will be on basal bolus insulin glycemic pharmacy consult as her U500 is 5 times concentration of typical insulin and the patient takes 180 units daily Hemoglobin A1c is pending (3) Acute and chronic respiratory failure with hypoxia: Plan: Patient has previous history of COVID infection and obstructive sleep apnea. She is requiring higher oxygen than usual to maintain her saturations remains on supplemental nasal cannula oxygen States that her chronic failure is not from COPD nor COVID she does require oxygen a few years ago and has been on it ever since (4) Elevated troponin: Plan: Patient is a mildly elevated troponin in the face of syncope and chronic kidney disease. She is not having chest pain or acute changes on her EKG. We will repeat troponins and follow. An echocardiogram has not been ordered Considering demand ischemia influenced by her chronic kidney disease for the elevation (5) Obstructive sleep apnea syndrome: Plan: Patient has not been wearing her home CPAP and will refuse if ordered in the hospital (6) Stage 3b chronic kidney disease: Plan: Patient has creatinine is stable condition for her we will hold her Lasix on the 15 reinstitute on the 16 she typically follows with Dr. Mckenna and does take erythropoietin for anemia associate with chronic kidney disease (7) Hypothyroidism: Plan: Continues on Synthroid for hypothyroidism TSH checked on admission was a ppropriate Plan Lovenox 30 subcu twice daily will be used for DVT prevention History of Present Illness Primary Care Provider: Aiyana Asencio MD 66-year-old female with a history of diabetes chronic lower extremity lymphedema and morbid obesity with a BMI of 66.9 presents with erythematous tender abdomen. Patient had episode of loss of consciousness at home according to her family for 10 to 15 minutes she did not fall she had a fever at home. Working diagnosis is possibleSIR syndrome from abdominal wall cellulitis. Patient states that over the last few days she has had discharge from her umbilicus but it does not any focus pain to be correlating with the hernia seen on CT. Likewise she says her glucoses have been in good control until today. However today she did not take her U5 100 until the evening so she took her lunch and evening dose together for a total of 120 units. Patient denies any other changes in her physical being Allergies Allergy/AdvReac Type Severity Reaction Status Date / Time Iodinated Contrast Media Allergy Severe Hives and Verified 07/05/22 23:08 kidney complications iodine Allergy Severe Hives and Verified 07/05/22 23:08 kidney complications shellfish derived Allergy Severe Anaphylaxis Verified 07/05/22 23:08 /Hives sulfite Allergy Severe HIVES AND Verified 07/05/22 23:08 THROAT CLOSES Home Medications Medication Instructions Recorded Confirmed Type insulin regular hum U-500 conc 500 See Rx Instructions .Route .COMPLEX 08/16/18 07/05/22 History unit/mL(3 mL) subcut pen rosuvastatin 20 mg tablet 20 mg PO HS 02/26/19 07/05/22 History tramadol 50 mg tablet 50 mg PO Q6H PRN Pain 05/17/20 07/05/22 History montelukast 10 mg tablet 10 mg PO HS 09/27/20 07/05/22 History levalbuterol tartrate 45 2 inh inhalation Q4H PRN Shortness 11/30/20 07/05/22 Rx mcg/actuation aerosol inhaler Of Breath Or Wheezing #15 grams (Xopenex HFA) nitroglycerin 0.4 mg sublingual 0.4 mg sublingual Q5M PRN Chest 11/30/20 07/05/22 History tablet Pain levalbuterol HCl 0.63 mg/3 mL 0.63 mg (3 mL) inhalation TID PRN 01/31/21 07/05/22 Rx solution for nebulization shortness of breath or wheezing #270 mL Oxygen Home #4 L 06/17/21 08/26/21 Rx epoetin milo 2,000 unit/mL 2,000 unit subcut .Q2WKS PRN LOW 08/26/21 07/05/22 History injection solution (Procrit) COUNT furosemide 20 mg tablet 20 mg PO DAILY 07/05/22 07/05/22 History levothyroxine 112 mcg tablet 112 mcg PO DAILY 07/05/22 07/05/22 History Past Med/Surg History Medical History Acute respiratory failure with hypoxia Anemia ARDS (adult respiratory distress syndrome) Breathlessness CAD S/P percutaneous coronary angioplasty Chest pain Chronic respiratory failure 1 to 2 L oxygen COVID-19 Diabetes Diverticulitis Dyspnea GERD (gastroesophageal reflux disease) Hypertension Lymphedema Morbid obesity Morbid obesity due to excess calories Obesity hypoventilation syndrome Obstructive sleep apnea syndrome Proteinuria Secondary pulmonary hypertension Shortness of breath SOB (shortness of breath) Stage 3b chronic kidney disease Thyroid cancer Vitamin D deficiency Surgical History H/O endoscopy H/O partial thyroidectomy History of colonoscopy History of percutaneous coronary intervention Family History Other Diabetes Heart disease No pertinent family history Social History Smoking Status: Never smoker Second Hand Exposure: No; Hx Alcohol Use: No Hx Substance Use: No Preferred Language: Maltese 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 Ability: Effective 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 Cloth Required: No Beliefs That Will Affect Care: None marital status: Current Living Situation: Spouse Current Living Situation Comment: current occupational status: disabled Feels Safe at Home: Yes Diet Comment: low carb high protein "like a gastirc bypass diet" states seeing nutrionist caffeine: Yes during the past year weight has: increased > 10 lbs Physical Activity Frequency: Does not Exercise Do you think of yourself as: straight/heterosexual Gender Identity: Female Assistive Devices: Oxygen - Continuous and Wheelchair Review of Systems Review of Systems: Mild distress and fatigue Complains of bifrontal headache, no visual changes no speech or swallowing issues no chest pain, pressure or palpitations no shortness of breath, cough or wheezes Her pannus is sensitive where cellulitis is present, no nausea or vomiting, diarrhea or constipation no dysuria, hematuria or frequency no focal joint pain or swelling no back pain, CVA tenderness or radicular pain no bruising, bleeding patient has chronic skin changes to her lower extremities of chronic venous stasis no focal signs of weakness or numbness or altered sensation no complaints of anxiety or depression.. Physical Exam Physical Exam: The patient appeared well nourished and normally developed. She is morbidly obese with a BMI of 66.9 Vital signs as documented. Head exam is normocephalic atraumatic Neck is without JVD, thyromegaly, or carotid bruits. Lungs are clear to auscultation, no focal loss of breath sounds Cardiac exam, Rhythm is regular.. No murmurs, rubs or gallops. Abdominal exam reveals normal bowel sounds, soft Significant erythema to the pannus no erythema down to her right thigh as suggested in the CT scan. There is intertrigo but there is no obvious discharge from her umbilicus as she complained about Extremities are significantly swollen bilaterally with chronic skin changes and both pedal pulses are present Neurologic exam is alert and oriented, no focal loss of strength or sensation Skin is with chronic venous stasis changes to her lower extremities and cellulitis to her abdomen Psychologically is without concerns for anxiety or depression.. Results & Data Results & Data ([facility]) Vital Signs (Past 12 Hours) Vital Signs Temp Pulse Resp BP Pulse Ox O2 Del Method O2 Flow Rate 07/05/22 22:09 130/48 L 94 07/05/22 20:32 99.0 F 115 H 20 111/56 L 97 Room Air [address] abdomen pelvis 09/05/2021 shows body wall edema and fat stranding with skin thickening along the inferior aspect of the pannus and also the proximal right thigh moderate to large fat-containing umbilical hernia hepatomegaly borderline splenomegaly PG Care Time/CCT Total # of Minutes Spent Total Time Spent with Patient: Total time spent is greater than 50% in coordination of care (as documented) at patient's floor/unit and/or counseling patient: Coding Level of Care Code 71907 Initial Inpt Care Lvl 3 Diagnoses Cellulitis L03.90 Diabetes E11.9; Z79.4 Diabetes mellitus complication status: without complication Diabetes mellitus intermediate frame tender insulin use: with intermediate frame tender use Diabetes mellitus type: type 2 Acute and chronic respiratory failure with hypoxia J96.21 Elevated troponin R77.8 Obstructive sleep apnea syndrome G47.33 Stage 3b chronic kidney disease N18.32 Hypothyroidism E03.9 (1) Diabetes Diabetes mellitus complication status: without complication Diabetes mellitus mcfp insulin use: with intermediate frame tender use Diabetes mellitus type: type 2 Qualified Code(s): E11.9 - Type 2 diabetes mellitus without complications; Z79.4 - intermediate frame tender (current) use of insulin
[2022-07-05] MEDS ORDERED: NovoLIN-R INSULIN PER UNIT CHARGE IV STA (23:50)
[2022-07-06] MEDS ORDERED: GLUCAGON FOR INJ 1 MG VIAL SQ PRN (01:41)
[2022-07-06] MEDS ORDERED: CARBOHYDRATES FOR HYPOGLYCEMIA PO PRN (01:41)
[2022-07-06] MEDS ORDERED: hydrALAZINE HCL 20 MG/ML VIAL IV PRN (01:41)
[2022-07-06] MEDS ORDERED: GLUCOSE 10 TAB/TUBE PO PRN (01:41)
[2022-07-06] MEDS ORDERED: GLUCOSE 40% GEL 15 GM TUBE PO PRN (01:41)
[2022-07-06] MEDS ORDERED: LEVALBUTEROL HCL 0.63 MG/3 ML NEB INH PRN (01:41)
[2022-07-06] MEDS ORDERED: ENOXAPARIN INJ 40 MG/0.4 ML SYR SQ SCH (01:41)
[2022-07-06] MEDS ORDERED: DEXTROSE 50% 50 ML SYRINGE IV PRN (01:41)
[2022-07-06] MEDS ORDERED: ALUMINUM/MAGNESIUM SUSP 30 ML UDC PO PRN (01:41)
[2022-07-06] MEDS ORDERED: PHARMACY GLYCEMIC MGMT CONSULT PRN (01:41)
[2022-07-06] MEDS ORDERED: ACETAMINOPHEN 325 MG TAB PO PRN (01:41)
[2022-07-06] MEDS ORDERED: ONDANSETRON INJ 2 MG/ML 2 ML VIAL IV PRN (01:41)
[2022-07-06] MEDS ORDERED: INSULIN ASPART PER UNIT SC ONE (02:15)
[2022-07-06] MEDS: PIPERACILLIN/TAZOBACTAM 4.5 GM in DEXTROSE 5% 100 ML IV SCH ×3 (02:36→17:35)
[2022-07-06] MEDS: LEVOTHYROXINE SODIUM 112 MCG TABLET PO SCH (05:51)
[2022-07-06 06:35] LABS: Appearance Urine Clear (Clear); Bacteria Urine Automated Negative (Negative); Bilirubin Urine Negative (Negative); Blood Urine 1+ (Negative); Cast Urine Automated 0 /lpf (0-5); Color Urine Yellow; Epithelial Cell Urine Auto 20-30 /lpf (0-5); Glucose Urine UA 3+ (Negative); Ketones Urine Negative (Negative); Leukocyte Esterase Urine Negative (Negative); Nitrite Urine Negative (Negative); Protein Urine 2+ (Negative); RBC Urine Automated 0-4 /hpf (0-4); Specific Gravity Urine 1.019 (1.000-1.030); Urobilinogen Urine Negative (Negative); pH Urine 6.5 (4.5-7.5)
[2022-07-06 08:14] LABS: Hematocrit (blood only) 29.9 % (34.1-44.9); Hemoglobin 9.3 g/dl (12.0-16.0); Mean Corpuscular Hgb Conc 31.1 g/dL (32.0-36.0); Mean Corpuscular Volume 86.9 fL (80.0-100.0); Mean Platelet Volume 11.8 fL (9.4-12.3); Platelet Count 208 K/uL (130-400); RDW Coefficient of Variation 19.4 % (11.5-14.5); RDW Standard Deviation 61.4 fL (36.4-46.3); Red Blood Count 3.44 M/uL (3.93-5.22); White Blood Count 12.12 K/ul (4.8-10.8)
--- NOTE | 2022-07-06 08:16 | Hospitalist Progress Note ---
Date of Service July 06, 2022 Assessment & Plan (1) Cellulitis of abdominal wall: Plan: Admitted for acute onset of lower abdominal pain/erythema Initial Pro-Christiano is negative lactic acid is mildly elevated she is however hypoxic and tachycardic on presentation to consider SIRS Patient reported drainage from umbilicus about 2 days ago, bloody reported and then spread in same manner as prior cellulitis when seen in ER in March (tx w/ Ceftriaxone/Doxy and sent with PO Doxy/Keflex) and reports being up/walking around with increased shortness of breath/pain and then became unconscious for about 101-5minutes before being awoken by her . Denies feeling dizzy/lightheaded. Had been attempting to wean O2 to 3L outpatient but requires increased needs when up/moving around ?vasovagal w/ pain, BSG was 400 on admit as well and she did report having a fev er of about 101F at home Lactic 2.1--> 1.2 on repeat. Procal 0.09. WBC 10.9k on admit -- currently 12k but afebrile CTAP 1. No acute intra-abdominal or intrapelvic abnormality. 2. No bowel obstruction or bowel wall thickening. Normal appendix. 3. Small fat filled umbilical hernia. 4. Skin thickening with subcutaneous edema of the lower abdominal wall pannus and imaged upper right thigh. Correlate clinically to exclude cellulitis. No abscess. 5. Hepatosplenomegaly with hepatic steatosis. Placed on Zosyn/Daptomycin IV -- continue (hx MRSA R foot Aug 2021) BCx NGTD -- monitor Cx from umbilical drainage if occurs Monitor erythema -- marker line for demarcation Consulted wound RN -- pannus/cracking/risk for introduction/repeat infections. Patient uses [employer] for dry hands at home. ?amlactin for lower pannus? Pain control/antiemetics prn Monitor labs on repeat Of note, prior tryptase level in system from September 2020? No reported anaphylaxis, was in ER for shortness of breath. Is on montelukast daily ?consider f/u outpatient for allergy/immunology/rheum, ?Muckle-Wells syndrome or some other weird finding episodic causing fever/skin rash/joint pain. (2) Cellulitis: Plan: as above monitor w/ treatment (3) Diabetes: Plan: Last A1c 10.28 May 2021, repeat 9.9 Typically on U500, 180u daily BSG 400 on admit, no anion gap Given 10u IV insulin Pharmacy consulted , appreciate assistance BSGs improved/controlled Outpt endocrinology f/u (4) Acute and chronic respiratory failure with hypoxia: Plan: Patient has previous history of COVID infection and obstructive sleep apnea. COVID 19 in May 2021 Had been using BiPAP faithfully up until this past summer after continued nasal breakdown/intolerance of mask. Continued discussions about need for BiPAP -- she has been using 2-4L at home, has a concentrator and REFUSED BiPAP and insists on sitting up in chair to help with her breathing and that should be enough. Discussed not how it works, but cannot convince patient currently States that her chronic failure is not from COPD nor COVID Of note, patient w/ hx CAD, unclear why on on BB, not able to be on ASA given hx bleeding, unclear why not trial Plavix given prior admission. Also, appeared prior admit her lisinopril had been placed on hold but never resumed -- she notes she thought she was to stop taking this completely (5) Elevated troponin: Plan: Trop 22 on admit --> 99.8 --> 64.7 on repeat, insetting of syncope and CKD (cr baseline) Suspect demand ischemia in setting of infection, improved w/ treatment outlined above DENIES CP, denies SOB (above her baseline, however hx CAD w/ progressive COOPER s/p PCI w/ stent in 2018). EKG unchanged. DOES NOT wear her BiPAP any longer, despite continued encouragement EKG c CP Monitor on telemetry -- NSR 70-80s Given LOC/syncope prior to admit, not on cardiac meds, will check ECHO for completeness (6) Obstructive sleep apnea syndrome: Plan: Patient has not been wearing her home CPAP and will refuse if ordered in the hospital -- see above under respiratory failure (7) Stage 3b chronic kidney disease: Plan: Cr baseline appears 1.5-1.8 over the past year, 1.58 on admit Cr 1.68 on AM labs and lasix held for this morning but planning to resume tomorrow Follows with Dr Mckenna, also with Kelly Peoples outpatient for anemia and takes erythropoietin [id number] (was previously every one week, but spaced out as was stable) Discussed w/ heme/onc this morning given patient concerns/SOB/O2 requirement, will check iron studies w/ AM labs, dose Retacrit [id number] for hgb <11 --> Patient got her last dose last Sunday she states BMP/CBC/iron panel in AM (8) Hypothyroidism: Plan: TSH 1.5 Continues Synthroid 112mcg daily (9) CAD S/P percutaneous coronary angioplasty: Plan: JHx CAD s/p PCI with stent placement in December 2017, follows with Dr. Rodríguez as outpatient Previously on losartan 50mg, norvasc 5mg daily, since discontinued No on BB, GI bleeding w/ Aspirin. ?tolerance to plavix, consider reaching out to Dr Rodríguez Remains on crestor 20mg daily -- placed on hold for this evening/while on Dapto (10) Anemia: Plan: chronic, prior followed with Dr Bear, currently with CCP, Kelly Dongmarianne Getting retacrit Qweekly for a while, recently backed to [id number] given stability Hgb had been 10-11, 9s on admit discussed with CCP, last administration last week per patient, and can check iron panel w/ AM labs/dose if needed No bleeding reported (but did have some bloody drainage from umbilicus reported as above) Monitor on repeat Plan Lovenox 30mg SQ BID while inpatient continued inpatient stay on abx, monitor cx/clinical course PT/OT consutled Admission and Anticipated Discharge Date Admission Date: July 05, 2022 Supervising Physician Co-Signing Physician Notes PA Supervision Note: I did not personally see or examine the patient today, but I verified all boone points of HAYDEE Arroyo's assessment and plan with the following exceptions/additions: None Subjective Temp 101F yesterday. Reported had been walking w/ walker and increasing shortness of breath and she remembers not being able to breath and then nothing after that. Reports having had loss of consciousness for about 10-15 minutes, unclear why. Denied feeling dizzy but has had increased lower abdominal pain, ?pain/vasovagal, checking ECHO for completeness. Denies hitting her head, her was present to prevent this. She noted some bloody drainage to her belly button, likely source. Denies having been itchy/itching her belly button. Has some crusting present. To alert nursing if any drainage and will obtain culture. Reports pain elevated this morning, had not gotten her usual tramadol, but will let us know in about 30 minutes if effective or not. Made pork/sauerkraut before admission yesterday. Blood glucose elevated on admit, she notes this is from infection. Markings for erythema in place, has not receded. No further fevers at present. No CP/SOB. Has been using 2-4L at home supplemental oxygen to maintain saturations however she was attempting to wean herself to 3L most recently. She notes she has NOT been using her BiPAP at home due to breakdown of her nose and states she sleeps sitting up and this should be enough. Discussed various masks, she said she has tried multiple, still not interested at this time. Does use Vlad working hands to her pannus in area of dry/cracking. Will consult wound RN. Chronic lymphedema and wraps in place. Does have discomfort between her right leg and lower pannus/pressure sensation. Of note, gets Q2 weekly, not weekly, iron injections w/ Kelly Peoples. She does note her hgb was in 11-12, recently in 9-10. Will message CCP to see -- patient getting retacrit q2w. Discussed w/ Kelly, will check iron panel in AM/retacrit if needed. Had spaced out to q2w as patient had been stable for several visits. Questions/concerns addressed at this time. Review of Systems Review of Systems: All systems reviewed & are unremarkable except as noted in HPI & below Physical Exam Physical Exam: General: WD morbidly obese female sitting up in bed eating lunch, NAD but reported mild-moderate pain but just got a tramadol, fatigued HEENT: head normocephalic, atraumatic, +thick neck, trachea midline, mmm Resp: poor inspiratory effort due to size, but clear to auscultation, diminished in the bases, on 4L NC CV: RRR, no appreciable m/r/g, no pitting edema but has chronic lymphedema and legs in compressive therapy GI: obese, soft, tender in region of cellulitis , within markings. significant pannus extending down to about her knees, hardened/dry/cracked area without significant drainage/opening some dried blood to edge of umbilicus. No expressible purulent drainage MSK/Neuro/skin: significant erythema to lower abdomen/pannus extending to right thigh. moves extremities on command, no focal deficit Psych: AOx3, cooperative Results & Data Results & Data ([facility]) Vital Signs (Past 12 Hours) Vital Signs Temp Pulse Pulse Resp BP BP Pulse Ox 07/06/22 08:03 37.2 C 93 H 18 138/72 93 07/06/22 07:25 95 H 07/06/22 05:00 84 07/06/22 05:12 07/06/22 05:12 36.8 C 94 H 20 106/64 97 07/06/22 04:22 07/06/22 03:30 94 H 16 103/59 L 98 07/06/22 02:00 96 H 29 H 125/77 93 07/06/22 01:01 98 H 25 H 106/62 93 07/06/22 00:18 97 07/05/22 23:32 108/66 93 07/05/22 22:09 130/48 L 94 07/05/22 20:32 37.2 C 115 H 20 111/56 L 97 O2 Del Method O2 Flow Rate 07/06/22 08:03 Nasal Cannula 4 07/06/22 07:25 07/06/22 05:00 07/06/22 05:12 Nasal Cannula 4 07/06/22 05:12 Nasal Cannula 4 07/06/22 04:22 Nasal Cannula 4 07/06/22 03:30 Nasal Cannula 4 07/06/22 02:00 Nasal Cannula 4 07/06/22 01:01 Nasal Cannula 4 07/06/22 00:18 Room Air 4 07/05/22 23:32 Nasal Cannula 4 07/05/22 22:09 07/05/22 20:32 Room Air 4 Laboratory Results 07/06/22 07/06/22 07/06/22 Range/Units 15:02 12:59 11:32 WBC (4.8-10.8) K/ul RBC (3.93-5.22) M/uL Hgb (12.0-16.0) g/dl Hct (34.1-44.9) % MCV (80.0-100.0) fL MCH (25.0-34.0) pg MCHC (32.0-36.0) g/dL RDW Std Deviation (36.4-46.3) fL RDW Coeff of Cherelle (11.5-14.5) % Plt Count (130-400) K/uL MPV (9.4-12.3) fL Immature Gran % (Auto) % Neut % (Auto) % Lymph % (Auto) % [place] % (Auto) % Eos % (Auto) % Baso % (Auto) % Neut # (Auto) (1.4-6.5) K/uL Lymph # (Auto) (1.2-3.4) K/uL [place] # (Auto) (0.24-0.82) K/uL Eos # (Auto) (0-0.50) K/uL Baso # (Auto) (0-0.2) K/uL Immature Gran # (Auto) (0.00-0.02) K/uL PT (9.0-12.0) Seconds INR (0.9-1.1) Sodium (136-145) mmol/L Potassium (3.5-5.1) mmol/L Chloride (98-107) mmol/L Carbon Dioxide (21-32) mmol/L Anion Gap (3-11) BUN (6-23) mg/dl Creatinine (0.6-1.2) mg/dl Est Cr Clr Drug Dosing ml/min Est GFR ( Amer) ml/min Est GFR (Non-Af Amer) ml/min BUN/Creatinine Ratio (10-20) Glucose (70-99(Fasting)) mg/dl POC Glucose 116 H 97 (70-99) mg/dl Estimat Average Glucose mg/dl Hemoglobin A1c (4.5-5.6) % Lactate (0.4-2.0) mmol/L Calcium (8.5-10.1) mg/dl Magnesium (1.7-2.4) mg/dl Total Bilirubin (0.2-1.0) mg/dl AST (13-39) U/L ALT (7-52) U/L Alkaline Phosphatase (34-104) U/L Troponin I High Sens 64.7 H* D (0-14) pg/ml Total Protein (6.0-8.3) gm/dl Albumin (3.4-5.0) gm/dl Globulin (2.5-4.0) gm/dl Albumin/Globulin Ratio (0.9-2) Procalcitonin (0-0.5) ng/ml TSH (0.300-4.500) uIu/ml Urine Color Urine Appearance (Clear) Urine pH (4.5-7.5) Ur Specific [place] (1.000-1.030) Urine Protein (Negative) Urine Glucose (UA) (Negative) Urine Ketones (Negative) Urine Blood (Negative) Urine Nitrite (Negative) Urine Bilirubin (Negative) Urine Urobilinogen (Negative) Ur Leukocyte Esterase (Negative) Urine WBC (Auto) (0-5) /hpf Urine RBC (Auto) (0-4) /hpf U Hyaline Cast (Auto) (0-5) /lpf U Epithel Cells (Auto) (0-5) /lpf Urine Bacteria (Auto) (Negative) SARS-CoV-2 (PCR) (Negative) Influenza Type A (PCR) (Neg) Influenza Type B (PCR) (Neg) RSV (RT-PCR) (Neg) 07/06/22 07/06/22 07/06/22 Range/Units 08:01 07:34 07:34 WBC (4.8-10.8) K/ul RBC (3.93-5.22) M/uL Hgb (12.0-16.0) g/dl Hct (34.1-44.9) % MCV (80.0-100.0) fL MCH (25.0-34.0) pg MCHC (32.0-36.0) g/dL RDW Std Deviation (36.4-46.3) fL RDW Coeff of Cherelle (11.5-14.5) % Plt Count (130-400) K/uL MPV (9.4-12.3) fL Immature Gran % (Auto) % Neut % (Auto) % Lymph % (Auto) % [place] % (Auto) % Eos % (Auto) % Baso % (Auto) % Neut # (Auto) (1.4-6.5) K/uL Lymph # (Auto) (1.2-3.4) K/uL [place] # (Auto) (0.24-0.82) K/uL Eos # (Auto) (0-0.50) K/uL Baso # (Auto) (0-0.2) K/uL Immature Gran # (Auto) (0.00-0.02) K/uL PT (9.0-12.0) Seconds INR (0.9-1.1) Sodium 136 (136-145) mmol/L Potassium 3.6 (3.5-5.1) mmol/L Chloride 102 (98-107) mmol/L Carbon Dioxide 29 (21-32) mmol/L Anion Gap 5 (3-11) BUN 29 H (6-23) mg/dl Creatinine 1.68 H (0.6-1.2) mg/dl Est Cr Clr Drug Dosing 45.2 ml/min Est GFR ( Amer) 36.3 ml/min Est GFR (Non-Af Amer) 31.3 ml/min BUN/Creatinine Ratio 17.3 (10-20) Glucose 152 H (70-99(Fasting)) mg/dl POC Glucose 155 H (70-99) mg/dl Estimat Average Glucose 237 mg/dl Hemoglobin A1c 9.9 H (4.5-5.6) % Lactate (0.4-2.0) mmol/L Calcium 9.0 (8.5-10.1) mg/dl Magnesium (1.7-2.4) mg/dl Total Bilirubin (0.2-1.0) mg/dl AST (13-39) U/L ALT (7-52) U/L Alkaline Phosphatase (34-104) U/L Troponin I High Sens 99.8 H* D (0-14) pg/ml Total Protein (6.0-8.3) gm/dl Albumin (3.4-5.0) gm/dl Globulin (2.5-4.0) gm/dl Albumin/Globulin Ratio (0.9-2) Procalcitonin (0-0.5) ng/ml TSH (0.300-4.500) uIu/ml Urine Color Urine Appearance (Clear) Urine pH (4.5-7.5) Ur Specific [place] (1.000-1.030) Urine Protein (Negative) Urine Glucose (UA) (Negative) Urine Ketones (Negative) Urine Blood (Negative) Urine Nitrite (Negative) Urine Bilirubin (Negative) Urine Urobilinogen (Negative) Ur Leukocyte Esterase (Negative) Urine WBC (Auto) (0-5) /hpf Urine RBC (Auto) (0-4) /hpf U Hyaline Cast (Auto) (0-5) /lpf U Epithel Cells (Auto) (0-5) /lpf Urine Bacteria (Auto) (Negative) SARS-CoV-2 (PCR) (Negative) Influenza Type A (PCR) (Neg) Influenza Type B (PCR) (Neg) RSV (RT-PCR) (Neg) 07/06/22 07/06/22 07/06/22 Range/Units 07:34 03:25 00:08 WBC 12.12 H (4.8-10.8) K/ul RBC 3.44 L (3.93-5.22) M/uL Hgb 9.3 L (12.0-16.0) g/dl Hct 29.9 L (34.1-44.9) % MCV 86.9 (80.0-100.0) fL MCH 27.0 (25.0-34.0) pg MCHC 31.1 L (32.0-36.0) g/dL RDW Std Deviation 61.4 H (36.4-46.3) fL RDW Coeff of Cherelle 19.4 H (11.5-14.5) % Plt Count 208 (130-400) K/uL MPV 11.8 (9.4-12.3) fL Immature Gran % (Auto) 0.7 % Neut % (Auto) 76.3 % Lymph % (Auto) 13.1 % [place] % (Auto) 8.6 % Eos % (Auto) 1.0 % Baso % (Auto) 0.3 % Neut # (Auto) 9.35 H (1.4-6.5) K/uL Lymph # (Auto) 1.61 (1.2-3.4) K/uL [place] # (Auto) 1.06 H (0.24-0.82) K/uL Eos # (Auto) 0.12 (0-0.50) K/uL Baso # (Auto) 0.04 (0-0.2) K/uL Immature Gran # (Auto) 0.09 H (0.00-0.02) K/uL PT (9.0-12.0) Seconds INR (0.9-1.1) Sodium (136-145) mmol/L Potassium (3.5-5.1) mmol/L Chloride (98-107) mmol/L Carbon Dioxide (21-32) mmol/L Anion Gap (3-11) BUN (6-23) mg/dl Creatinine (0.6-1.2) mg/dl Est Cr Clr Drug Dosing ml/min Est GFR ( Amer) ml/min Est GFR (Non-Af Amer) ml/min BUN/Creatinine Ratio (10-20) Glucose (70-99(Fasting)) mg/dl POC Glucose 218 H 277 H (70-99) mg/dl Estimat Average Glucose mg/dl Hemoglobin A1c (4.5-5.6) % Lactate (0.4-2.0) mmol/L Calcium (8.5-10.1) mg/dl Magnesium (1.7-2.4) mg/dl Total Bilirubin (0.2-1.0) mg/dl AST (13-39) U/L ALT (7-52) U/L Alkaline Phosphatase (34-104) U/L Troponin I High Sens (0-14) pg/ml Total Protein (6.0-8.3) gm/dl Albumin (3.4-5.0) gm/dl Globulin (2.5-4.0) gm/dl Albumin/Globulin Ratio (0.9-2) Procalcitonin (0-0.5) ng/ml TSH (0.300-4.500) uIu/ml Urine Color Urine Appearance (Clear) Urine pH (4.5-7.5) Ur Specific [place] (1.000-1.030) Urine Protein (Negative) Urine Glucose (UA) (Negative) Urine Ketones (Negative) Urine Blood (Negative) Urine Nitrite (Negative) Urine Bilirubin (Negative) Urine Urobilinogen (Negative) Ur Leukocyte Esterase (Negative) Urine WBC (Auto) (0-5) /hpf Urine RBC (Auto) (0-4) /hpf U Hyaline Cast (Auto) (0-5) /lpf U Epithel Cells (Auto) (0-5) /lpf Urine Bacteria (Auto) (Negative) SARS-CoV-2 (PCR) (Negative) Influenza Type A (PCR) (Neg) Influenza Type B (PCR) (Neg) RSV (RT-PCR) (Neg) 07/05/22 07/05/22 07/05/22 Range/Units 23:48 21:40 21:19 WBC (4.8-10.8) K/ul RBC (3.93-5.22) M/uL Hgb (12.0-16.0) g/dl Hct (34.1-44.9) % MCV (80.0-100.0) fL MCH (25.0-34.0) pg MCHC (32.0-36.0) g/dL RDW Std Deviation (36.4-46.3) fL RDW Coeff of Cherelle (11.5-14.5) % Plt Count (130-400) K/uL MPV (9.4-12.3) fL Immature Gran % (Auto) % Neut % (Auto) % Lymph % (Auto) % [place] % (Auto) % Eos % (Auto) % Baso % (Auto) % Neut # (Auto) (1.4-6.5) K/uL Lymph # (Auto) (1.2-3.4) K/uL [place] # (Auto) (0.24-0.82) K/uL Eos # (Auto) (0-0.50) K/uL Baso # (Auto) (0-0.2) K/uL Immature Gran # (Auto) (0.00-0.02) K/uL PT (9.0-12.0) Seconds INR (0.9-1.1) Sodium (136-145) mmol/L Potassium (3.5-5.1) mmol/L Chloride (98-107) mmol/L Carbon Dioxide (21-32) mmol/L Anion Gap (3-11) BUN (6-23) mg/dl Creatinine (0.6-1.2) mg/dl Est Cr Clr Drug Dosing ml/min Est GFR ( Amer) ml/min Est GFR (Non-Af Amer) ml/min BUN/Creatinine Ratio (10-20) Glucose (70-99(Fasting)) mg/dl POC Glucose (70-99) mg/dl Estimat Average Glucose mg/dl Hemoglobin A1c (4.5-5.6) % Lactate 1.2 2.1 H* (0.4-2.0) mmol/L Calcium (8.5-10.1) mg/dl Magnesium (1.7-2.4) mg/dl Total Bilirubin (0.2-1.0) mg/dl AST (13-39) U/L ALT (7-52) U/L Alkaline Phosphatase (34-104) U/L Troponin I High Sens (0-14) pg/ml Total Protein (6.0-8.3) gm/dl Albumin (3.4-5.0) gm/dl Globulin (2.5-4.0) gm/dl Albumin/Globulin Ratio (0.9-2) Procalcitonin (0-0.5) ng/ml TSH (0.300-4.500) uIu/ml Urine Color Urine Appearance (Clear) Urine pH (4.5-7.5) Ur Specific [place] (1.000-1.030) Urine Protein (Negative) Urine Glucose (UA) (Negative) Urine Ketones (Negative) Urine Blood (Negative) Urine Nitrite (Negative) Urine Bilirubin (Negative) Urine Urobilinogen (Negative) Ur Leukocyte Esterase (Negative) Urine WBC (Auto) (0-5) /hpf Urine RBC (Auto) (0-4) /hpf U Hyaline Cast (Auto) (0-5) /lpf U Epithel Cells (Auto) (0-5) /lpf Urine Bacteria (Auto) (Negative) SARS-CoV-2 (PCR) NEGATIVE (Negative) Influenza Type A (PCR) Negative (Neg) Influenza Type B (PCR) Negative (Neg) RSV (RT-PCR) Negative (Neg) 07/05/22 07/05/22 07/05/22 Range/Units 20:35 20:35 20:35 WBC (4.8-10.8) K/ul RBC (3.93-5.22) M/uL Hgb (12.0-16.0) g/dl Hct (34.1-44.9) % MCV (80.0-100.0) fL MCH (25.0-34.0) pg MCHC (32.0-36.0) g/dL RDW Std Deviation (36.4-46.3) fL RDW Coeff of Cherelle (11.5-14.5) % Plt Count (130-400) K/uL MPV (9.4-12.3) fL Immature Gran % (Auto) % Neut % (Auto) % Lymph % (Auto) % [place] % (Auto) % Eos % (Auto) % Baso % (Auto) % Neut # (Auto) (1.4-6.5) K/uL Lymph # (Auto) (1.2-3.4) K/uL [place] # (Auto) (0.24-0.82) K/uL Eos # (Auto) (0-0.50) K/uL Baso # (Auto) (0-0.2) K/uL Immature Gran # (Auto) (0.00-0.02) K/uL PT (9.0-12.0) Seconds INR (0.9-1.1) Sodium (136-145) mmol/L Potassium (3.5-5.1) mmol/L Chloride (98-107) mmol/L Carbon Dioxide (21-32) mmol/L Anion Gap (3-11) BUN (6-23) mg/dl Creatinine (0.6-1.2) mg/dl Est Cr Clr Drug Dosing ml/min Est GFR ( Amer) ml/min Est GFR (Non-Af Amer) ml/min BUN/Creatinine Ratio (10-20) Glucose (70-99(Fasting)) mg/dl POC Glucose (70-99) mg/dl Estimat Average Glucose mg/dl Hemoglobin A1c (4.5-5.6) % Lactate (0.4-2.0) mmol/L Calcium (8.5-10.1) mg/dl Magnesium (1.7-2.4) mg/dl Total Bilirubin (0.2-1.0) mg/dl AST (13-39) U/L ALT (7-52) U/L Alkaline Phosphatase (34-104) U/L Troponin I High Sens 28.6 H (0-14) pg/ml Total Protein (6.0-8.3) gm/dl Albumin (3.4-5.0) gm/dl Globulin (2.5-4.0) gm/dl Albumin/Globulin Ratio (0.9-2) Procalcitonin 0.09 (0-0.5) ng/ml TSH 1.536 (0.300-4.500) uIu/ml Urine Color Urine Appearance (Clear) Urine pH (4.5-7.5) Ur Specific [place] (1.000-1.030) Urine Protein (Negative) Urine Glucose (UA) (Negative) Urine Ketones (Negative) Urine Blood (Negative) Urine Nitrite (Negative) Urine Bilirubin (Negative) Urine Urobilinogen (Negative) Ur Leukocyte Esterase (Negative) Urine WBC (Auto) (0-5) /hpf Urine RBC (Auto) (0-4) /hpf U Hyaline Cast (Auto) (0-5) /lpf U Epithel Cells (Auto) (0-5) /lpf Urine Bacteria (Auto) (Negative) SARS-CoV-2 (PCR) (Negative) Influenza Type A (PCR) (Neg) Influenza Type B (PCR) (Neg) RSV (RT-PCR) (Neg) 07/05/22 07/05/22 07/05/22 Range/Units 20:35 20:35 20:35 WBC 10.99 H (4.8-10.8) K/ul RBC 3.60 L (3.93-5.22) M/uL Hgb 9.7 L (12.0-16.0) g/dl Hct 31.8 L (34.1-44.9) % MCV 88.3 (80.0-100.0) fL MCH 26.9 (25.0-34.0) pg MCHC 30.5 L (32.0-36.0) g/dL RDW Std Deviation 62.7 H (36.4-46.3) fL RDW Coeff of Chere[place] 19.3 H (11.5-14.5) % Plt Count 202 (130-400) K/uL MPV 11.4 (9.4-12.3) fL Immature Gran % (Auto) 1.2 % Neut % (Auto) 79.5 % Lymph % (Auto) 11.1 % [place] % (Auto) 6.8 % Eos % (Auto) 1.0 % Baso % (Auto) 0.4 % Neut # (Auto) 8.74 H (1.4-6.5) K/uL Lymph # (Auto) 1.22 (1.2-3.4) K/uL [place] # (Auto) 0.75 (0.24-0.82) K/uL Eos # (Auto) 0.11 (0-0.50) K/uL Baso # (Auto) 0.04 (0-0.2) K/uL Immature Gran # (Auto) 0.13 H (0.00-0.02) K/uL PT 13.2 H (9.0-12.0) Seconds INR 1.3 H (0.9-1.1) Sodium 134 L (136-145) mmol/L Potassium 3.8 (3.5-5.1) mmol/L Chloride 99 (98-107) mmol/L Carbon Dioxide 26 (21-32) mmol/L Anion Gap 9 (3-11) BUN 30 H (6-23) mg/dl Creatinine 1.58 H (0.6-1.2) mg/dl Est Cr Clr Drug Dosing 49.4 ml/min Est GFR ( Amer) 39.1 ml/min Est GFR (Non-Af Amer) 33.7 ml/min BUN/Creatinine Ratio 19.0 (10-20) Glucose 407 H* (70-99(Fasting)) mg/dl POC Glucose (70-99) mg/dl Estimat Average Glucose mg/dl Hemoglobin A1c (4.5-5.6) % Lactate (0.4-2.0) mmol/L Calcium 9.2 (8.5-10.1) mg/dl Magnesium 2.4 (1.7-2.4) mg/dl Total Bilirubin 1.0 (0.2-1.0) mg/dl AST 15 (13-39) U/L ALT 11 (7-52) U/L Alkaline Phosphatase 89 (34-104) U/L Troponin I High Sens (0-14) pg/ml Total Protein 7.0 (6.0-8.3) gm/dl Albumin 3.4 (3.4-5.0) gm/dl Globulin 3.6 (2.5-4.0) gm/dl Albumin/Globulin Ratio 0.9 (0.9-2) Procalcitonin (0-0.5) ng/ml TSH (0.300-4.500) uIu/ml Urine Color Urine Appearance (Clear) Urine pH (4.5-7.5) Ur Specific [place] (1.000-1.030) Urine Protein (Negative) Urine Glucose (UA) (Negative) Urine Ketones (Negative) Urine Blood (Negative) Urine Nitrite (Negative) Urine Bilirubin (Negative) Urine Urobilinogen (Negative) Ur Leukocyte Esterase (Negative) Urine WBC (Auto) (0-5) /hpf Urine RBC (Auto) (0-4) /hpf U Hyaline Cast (Auto) (0-5) /lpf U Epithel Cells (Auto) (0-5) /lpf Urine Bacteria (Auto) (Negative) SARS-CoV-2 (PCR) (Negative) Influenza Type A (PCR) (Neg) Influenza Type B (PCR) (Neg) RSV (RT-PCR) (Neg) 07/05/22 Range/Units 06:00 WBC (4.8-10.8) K/ul RBC (3.93-5.22) M/uL Hgb (12.0-16.0) g/dl Hct (34.1-44.9) % MCV (80.0-100.0) fL MCH (25.0-34.0) pg MCHC (32.0-36.0) g/dL RDW Std Deviation (36.4-46.3) fL RDW Coeff of Cherelle (11.5-14.5) % Plt Count (130-400) K/uL MPV (9.4-12.3) fL Immature Gran % (Auto) % Neut % (Auto) % Lymph % (Auto) % [place] % (Auto) % Eos % (Auto) % Baso % (Auto) % Neut # (Auto) (1.4-6.5) K/uL Lymph # (Auto) (1.2-3.4) K/uL [place] # (Auto) (0.24-0.82) K/uL Eos # (Auto) (0-0.50) K/uL Baso # (Auto) (0-0.2) K/uL Immature Gran # (Auto) (0.00-0.02) K/uL PT (9.0-12.0) Seconds INR (0.9-1.1) Sodium (136-145) mmol/L Potassium (3.5-5.1) mmol/L Chloride (98-107) mmol/L Carbon Dioxide (21-32) mmol/L Anion Gap (3-11) BUN (6-23) mg/dl Creatinine (0.6-1.2) mg/dl Est Cr Clr Drug Dosing ml/min Est GFR ( Amer) ml/min Est GFR (Non-Af Amer) ml/min BUN/Creatinine Ratio (10-20) Glucose (70-99(Fasting)) mg/dl POC Glucose (70-99) mg/dl Estimat Average Glucose mg/dl Hemoglobin A1c (4.5-5.6) % Lactate (0.4-2.0) mmol/L Calcium (8.5-10.1) mg/dl Magnesium (1.7-2.4) mg/dl Total Bilirubin (0.2-1.0) mg/dl AST (13-39) U/L ALT (7-52) U/L Alkaline Phosphatase (34-104) U/L Troponin I High Sens (0-14) pg/ml Total Protein (6.0-8.3) gm/dl Albumin (3.4-5.0) gm/dl Globulin (2.5-4.0) gm/dl Albumin/Globulin Ratio (0.9-2) Procalcitonin (0-0.5) ng/ml TSH (0.300-4.500) uIu/ml Urine Color Yellow Urine Appearance Clear (Clear) Urine pH 6.5 (4.5-7.5) Ur Specific [place] 1.019 (1.000-1.030) Urine Protein 2+ H (Negative) Urine Glucose (UA) 3+ H (Negative) Urine Ketones Negative (Negative) Urine Blood 1+ H (Negative) Urine Nitrite Negative (Negative) Urine Bilirubin Negative (Negative) Urine Urobilinogen Negative (Negative) Ur Leukocyte Esterase Negative (Negative) Urine WBC (Auto) 5-10 H (0-5) /hpf Urine RBC (Auto) 0-4 (0-4) /hpf U Hyaline Cast (Auto) 0 (0-5) /lpf U Epithel Cells (Auto) 20-30 H (0-5) /lpf Urine Bacteria (Auto) Negative (Negative) SARS-CoV-2 (PCR) (Negative) Influenza Type A (PCR) (Neg) Influenza Type B (PCR) (Neg) RSV (RT-PCR) (Neg) Diagnostic Findings Abdomen/Pelvis CT 07/05/22 20:[address] WITHOUT CONTRAST CT DOSE: 2434.98 mGy.cm HISTORY: Acute abdominal pain with reported abdominal wall cellulitis abdominal wall cellulitis TECHNIQUE: Multiaxial CT images of the abdomen and pelvis were performed without contrast. A dose lowering technique was utilized adhering to the principles of ALARA. COMPARISON STUDY: 03/25/2018 FINDINGS: Moderate coronary artery calcifications. Mild cardiomegaly with trace pericardial effusion. Mild bibasilar atelectasis with air trapping. There is no pneumatosis or pneumoperitoneum. The unenhanced spleen is enlarged measuring up to 13.5 cm in length. Mildly atrophic pancreas. Unremarkable adrenal glands. Contracted gallbladder. Hepatomegaly with hepatic steatosis. The liver measures up to 24 cm in length. No hepatic mass identified. Mild nonspecific bilateral perinephric stranding. No renal or ureteral calculi or hydronephrosis. Urinary bladder wall thickening with partial distention. Subcentimeter calcifications are noted within the uterus. Atherosclerosis of the aorta. No lymphadenopathy identified. No bowel obstruction or bowel wall thickening. Colonic diverticulosis. Normal appendix. Fat filled umbilical hernia with diastases of approximately 2.2 cm. There is skin thickening with subcutaneous edema of the pannus and proximal right thigh. No drainable fluid collection. No acute fracture. IMPRESSION: 1. No acute intra-abdominal or intrapelvic abnormality. 2. No bowel obstruction or bowel wall thickening. Normal appendix. 3. Small fat filled umbilical hernia. 4. Skin thickening with subcutaneous edema of the lower abdominal wall pannus and imaged upper right thigh. Correlate clinically to exclude cellulitis. No abscess. 5. Hepatosplenomegaly with hepatic steatosis. ACT 112: Negative or not required by law. The above report was generated using voice recognition software. It may contain grammatical, syntax or spelling errors. Electronically signed by: Jose Katz M.D. 07/06/2022 8:42 AM PG Care Time/CCT Total # of Minutes Spent Total Time Spent with Patient: Total time spent is greater than 50% in coordination of care (as documented) at patient's floor/unit and/or counseling patient: Coding Level of Care Code 60934 Subseq Hosp Care Lvl 3 Diagnoses Cellulitis of abdominal wall L03.311 Cellulitis L03.90 Diabetes E11.9; Z79.4 Diabetes mellitus complication status: without complication Diabetes mellitus shelter insulin use: with joint terminal attack controller use Diabetes mellitus type: type 2 Acute and chronic respiratory failure with hypoxia J96.21 Elevated troponin R77.8 Obstructive sleep apnea syndrome G47.33 Stage 3b chronic kidney disease N18.32 Hypothyroidism E03.9 CAD S/P percutaneous coronary angioplasty I25.10; Z98.61 Anemia D64.9 (1) Diabetes Diabetes mellitus complication status: without complication Diabetes mellitus joint terminal attack controller insulin use: with shelter use Diabetes mellitus type: type 2 Qualified Code(s): E11.9 - Type 2 diabetes mellitus without complications; Z79.4 - prison (current) use of insulin
[2022-07-06] MEDS ORDERED: HumuLIN-R 500 UNITS/ML VIAL SQ ONE ×3 (08:30→17:00)
[2022-07-06] MEDS: NYSTATIN OINT 15 GM TUBE EXT SCH ×2 (08:40→20:45)
[2022-07-06] MEDS: ENOXAPARIN INJ 30 MG/0.3 ML SYR SQ SCH ×3 (08:43→20:56)
--- NOTE | 2022-07-06 08:45 | CT Scan Report ---
ABDOMEN AND PELVIS CT WITHOUT CONTRAST CT DOSE: 2434.98 mGy.cm HISTORY: Acute abdominal pain with reported abdominal wall cellulitis abdominal wall cellulitis TECHNIQUE: Multiaxial CT images of the abdomen and pelvis were performed without contrast. A dose lo wering technique was utilized adhering to the principles of ALARA. COMPARISON STUDY: 03/25/2018 FINDINGS: Moderate coronary artery calcifications. Mild cardiomegaly with trace pericardial effusion. Mild bibasilar atelectasis with air trapping. There is no pneumatosis or pneumoperitoneum. The unenh anced spleen is enlarged measuring up to 13.5 cm in length. Mildly atrophic pancreas. Unremarkable ad renal glands. Contracted gallbladder. Hepatomegaly with hepatic steatosis. The liver measures up to 2 4 cm in length. No hepatic mass identified. Mild nonspecific bilateral perinephric stranding. No renal or ureteral calculi or hydronephrosis. Uri nary bladder wall thickening with partial distention. Subcentimeter calcifications are noted within t he uterus. Atherosclerosis of the aorta. No lymphadenopathy identified. No bowel obstruction or bowel wall thickening. Colonic diverticulosis. Normal appendix. Fat filled um bilical hernia with diastases of approximately 2.2 cm. There is skin thickening with subcutaneous selvin ma of the pannus and proximal right thigh. No drainable fluid collection. No acute fracture. IMPRESSION: 1. No acute intra-abdominal or intrapelvic abnormality. 2. No bowel obstruction or bowel wall thickening. Normal appendix. 3. Small fat filled umbilical hernia. 4. Skin thickening with subcutaneous edema of the lower abdominal wall pannus and imaged upper right thigh. Correlate clinically to exclude cellulitis. No abscess. 5. Hepatosplenomegaly with hepatic steatosis. ACT 112: Negative or not required by law. The above report was generated using voice recognition software. It may contain grammatical, syntax o r spelling errors. Electronically signed by: Jose aKtz M.D. 07/06/2022 8:42 AM
[2022-07-06 09:01] LABS: Basophils # (auto) 0.04 K/uL (0-0.2); Basophils % (auto) 0.3 %; Eosinophils # (auto) 0.12 K/uL (0-0.50); Immature Granulocytes # (auto) 0.09 K/uL (0.00-0.02); Immature Granulocytes % (auto) 0.7 %; Lymphocytes # (auto) 1.61 K/uL (1.2-3.4); Lymphocytes % (auto) 13.1 %; Monocytes # (auto) 1.06 K/uL (0.24-0.82); Monocytes % (auto) 8.6 %; Neutrophils # (auto) 9.35 K/uL (1.4-6.5); Neutrophils % (auto) 76.3 %
[2022-07-06 09:02] LABS: BUN Creatinine Ratio 17.3 (10-20); Creatinine Clr Calc Pharmacy 45.2 ml/min; Est GFR (African American) 36.3 ml/min; Est GFR (Non-African American) 31.3 ml/min; Potassium 3.6 mmol/L (3.5-5.1); Troponin I High Sensitivity 99.8 pg/ml (0-14)
[2022-07-06 09:06] LABS: Estimated Average Glucose 237 mg/dl; Hemoglobin A1C 9.9 % (4.5-5.6)
--- NOTE | 2022-07-06 11:01 | Pharmacy Report ---
Pharmacy Glycemic Short Note 2 - Date of Service July 06, 2022 - Glycemic Short BSG Results (Last 24 hours): 07/05/22 07/06/22 07/06/22 20:35 00:08 03:25 Glucose 407 H* POC Glucose 277 H 218 H 07/06/22 07/06/22 07:34 08:01 Glucose 152 H POC Glucose 155 H OUTPATIENT ANTIDIABETIC REGIMEN: * insulin U-500: 60 units with breakfast, 65 units with Lunch, 70 units with dinner as of 06/12/22 fill Hx * Hemoglobin A1C of 9.9% 07/06/22 ASSESSMENT: * Patient is a 66 y/o F admitted with cellulitis with history of T2DM treated with U500 insulin outpatient. * Inital presentation blood glucose of 407 treated with 10 units of IV regular insulin * Fasting blood glucose within goal range, will continue U500 dosing conservatively and based on historical inpatient needs. PLAN FOR INPATIENT GLYCEMIC CONTROL: * Hold outpatient oral diabetes medications * Bolus insulin * Goal Range: Low 120 mg/dL - High 160 mg/dL * insulin U500: 50 units with breakfast, HOLD lunch dose, dinner dose and subsequent doses to be re-evaluated
[2022-07-06] MEDS: traMADol HCL 50 MG TABLET PO PRN (11:38)
--- NOTE | 2022-07-06 14:44 | XCELERA ---
[id number]
--- NOTE | 2022-07-06 15:09 | Electrocardiogram Report ---
Test Reason : Blood Pressure : / mmHG Vent. Rate : 103 BPM Atrial Rate : 103 BPM P-R Int : 188 ms QRS Dur : 092 ms QT Int : 352 ms P-R-T Axes : 048 050 006 degrees QTc Int : 461 ms Poor data quality, interpretation may be adversely affected Sinus tachycardia Poor R wave progression, consider anterior MT vs. lead placement vs. LVH Abnormal ECG When compared with ECG of 14-JUN-2021 15:55, No significant change was found Confirmed by Saji Padilla ([id number]) on 07/06/2022 3:08:45 PM Referred By: REFERRED SELF Confirmed By:Saji Padilla
[2022-07-06] MEDS ORDERED: FUROSEMIDE INJ 20 MG/2 ML VIAL IV ONE (18:17)
[2022-07-06] MEDS ORDERED: POTASSIUM CHLORIDE CRTAB 20 MEQ TABCR PO STA (18:19)
[2022-07-06] MEDS: DAPTOmycin 350 MG in SYRINGE 0 ML IV SCH (20:42)
[2022-07-06] MEDS: MONTELUKAST SODIUM 10 MG TABLET PO SCH (20:43)
[2022-07-06] MEDS ORDERED: ROSUVASTATIN CALCIUM 20 MG TAB PO SCH (21:00)
[2022-07-07] MEDS: PIPERACILLIN/TAZOBACTAM 4.5 GM in DEXTROSE 5% 100 ML IV SCH ×3 (01:44→17:22)
[2022-07-07] MEDS: traMADol HCL 50 MG TABLET PO PRN ×4 (01:57→21:57)
[2022-07-07] MEDS: LEVOTHYROXINE SODIUM 112 MCG TABLET PO SCH (05:54)
[2022-07-07 07:11] LABS: Hematocrit (blood only) 30.5 % (34.1-44.9); Hemoglobin 9.1 g/dl (12.0-16.0); Mean Corpuscular Hemoglobin 26.6 pg (25.0-34.0); Mean Corpuscular Hgb Conc 29.8 g/dL (32.0-36.0); Mean Corpuscular Volume 89.2 fL (80.0-100.0); Mean Platelet Volume 10.9 fL (9.4-12.3); Platelet Count 192 K/uL (130-400); RDW Coefficient of Variation 19.9 % (11.5-14.5); RDW Standard Deviation 64.3 fL (36.4-46.3); Red Blood Count 3.42 M/uL (3.93-5.22); White Blood Count 9.42 K/ul (4.8-10.8)
[2022-07-07 07:51] LABS: BUN Creatinine Ratio 14.7 (10-20); Est GFR (Non-African American) 25.8 ml/min; Lyme Ab IgG w/WB Rflx Negative (Negative); Lyme Ab IgM w/WB Rflx Negative (Negative); Potassium 3.9 mmol/L (3.5-5.1)
[2022-07-07 07:56] LABS: Ferritin 202.6 ng/ml (8-388)
--- NOTE | 2022-07-07 08:03 | Hospitalist Progress Note ---
Date of Service July 07, 2022 Assessment & Plan (1) Cellulitis of abdominal wall: Plan: Admitted for acute onset of lower abdominal pain/erythema Initial Pro-Christiano is negative lactic acid is mildly elevated she is however hypoxic and tachycardic on presentation to consider SIRS Patient reported drainage from umbilicus about 2 days ago, bloody reported and then spread in same manner as prior cellulitis when seen in ER in March (tx w/ Ceftriaxone/Doxy and sent with PO Doxy/Keflex) and reports being up/walking around with increased shortness of breath/pain and then became unconscious for about 101-5minutes before being awoken by her . Denies feeling dizzy/lightheaded. Had been attempting to wean O2 to 3L outpatient but requires increased needs when up/moving around ?vasovagal w/ pain, BSG was 400 on admit as well and she did report having a fev er of about 101F at home Lactic 2.1--> 1.2 on repeat. Procal 0.09. WBC 10.9k on admit -- currently 12k but afebrile CTAP 1. No acute intra-abdominal or intrapelvic abnormality. 2. No bowel obstruction or bowel wall thickening. Normal appendix. 3. Small fat filled umbilical hernia. 4. Skin thickening with subcutaneous edema of the lower abdominal wall pannus and imaged upper right thigh. Correlate clinically to exclude cellulitis. No abscess. 5. Hepatosplenomegaly with hepatic steatosis. Placed on Zosyn/Daptomycin IV -- continue (hx MRSA R foot Aug 2021) BCx NGTD -- monitor Cx from umbilical drainage if occurs -- pin point growth, re-incubating (GS many GPC, GPR) Monitor erythema -- marker line for demarcation Consulted wound RN -- pannus/cracking/risk for introduction/repeat infections. Patient uses [employer] for dry hands at home. Using moisture wicking sheets Pain control/antiemetics prn Monitor labs on repeat (2) Acute and chronic respiratory failure with hypoxia: Plan: Patient has previous history of COVID infection and obstructive sleep apnea. COVID 19 in May 2021 Had been using BiPAP faithfully up until this past summer after continued nasal breakdown/intolerance of mask. Continued discussions about need for BiPAP -- she has been using 2-4L at home, has a concentrator and REFUSED BiPAP and insists on sitting up in chair to help with her breathing and that should be enough. Discussed not how it works, but cannot convince patient currently on 07/06 prior to ECHO Of note, patient w/ hx CAD/PCI, not on ASA given GI bleeding States that her chronic failure is not from COPD nor COVID -- I did worry about possible CHF contribtuing/R sided heart failure however volume status difficult to assess given chronic lymphedema Cardiology consulted given ECHO w/ R sided failure from obesity/hypoventilation, mod aortic stenosis. Could be contribution w/ sepsis syndrome for her syncopal episode. Did note RV overload, was given lasix 20mg IV last evening, Cr slightly bumped Per cards, would continue current diuretic regimen 20mg lasix unchanged. Declined BiPAP for cards, but patient stated she wasn't really sure what Dr Rodríguez was talking about. Discussed needing BiPAP/CPAP given R heart failure to help and she agreed to try again and have her bring this in for her Also encouraged low salt diet -- she has a salt shaker next to her bedside stand per , uses 1/4tsp measured out. Also used [employer] for dieting but did endorse packaged meals. Discussed with patient and at bedside importance of low salt diet to prevent fluid retention/weight gain as she did note having pork/sauerkraut prior to admission. Spent significant time. going to make more of effort to cook foods. Encouraged no more than 1200-1500mL Na/daily. I did place on fluid restriction 2000mL daily as well Currently 98%on 2L Consider 2 step prior to d/c (3) Cellulitis: Plan: as above monitor w/ treatment (4) Diabetes: Plan: Last A1c 10.28 May 2021, repeat 9.9 Typically on U500, 180u daily BSG 400 on admit, no anion gap Given 10u IV insulin Pharmacy consulted , appreciate assistance BSGs improved/controlled Outpt endocrinology f/u (5) Elevated troponin: Plan: Trop 22 on admit --> 99.8 --> 64.7 on repeat, insetting of syncope and CKD (cr baseline) Suspect demand ischemia in setting of infection, improved w/ treatment outlined above DENIES CP, denies SOB (above her baseline, however hx CAD w/ progressive COOPER s/p PCI w/ stent in 2018). EKG unchanged. DOES NOT wear her BiPAP any longer, despite continued encouragement EKG c CP Monitor on telemetry -- NSR 70-80s Given LOC/syncope prior to admit, not on cardiac meds, will check ECHO for completeness -- see above. Cards consulted, not cardiac, demand from infection (6) Obstructive sleep apnea syndrome: Plan: Patient has not been wearing her home CPAP and will refuse if ordered in the hospital -- see above under respiratory failure (7) Stage 3b chronic kidney disease: Plan: Cr baseline appears 1.5-1.8 over the past year, 1.58 on admit Cr 1.97, given lasix 20mg IV last evening, resumed usual 20mg po lasix Follows with Dr Mckenna, also with [facility] outpatient for anemia and takes erythropoietin [id number] (was previously every one week, but spaced out as was stable) Discussed w/ heme/onc this morning given patient concerns/SOB/O2 requirement, will check iron studies w/ AM labs, dose Retacrit 35833 for hgb <11 --> Patient got her last dose last Sunday she states --> Iron panel obtained, given dose retacrit, can f/u hematology at discharge (8) Hypothyroidism: Plan: TSH 1.5 Continues Synthroid 112mcg daily (9) CAD S/P percutaneous coronary angioplasty: Plan: JHx CAD s/p PCI with stent placement in December 2017, follows with Dr. Rodríguez as outpatient Previously on losartan 50mg, norvasc 5mg daily, since discontinued No on BB, GI bleeding w/ Aspirin. ?tolerance to plavix, consider reaching out to Dr Rodríguez Remains on crestor 20mg daily -- placed on hold while on Dapto (10) Anemia: Plan: chronic, prior followed with Dr Bear, currently with CCP, [facility] Getting retacrit Qweekly for a while, recently backed to [id number] given stability Hgb had been 10-11, 9s on admit discussed with CCP, last administration last week per patient, and can check iron panel w/ AM labs/dose if needed -- dose provided today, hgb 9.1 No bleeding reported (but did have some bloody drainage from umbilicus reported as above-- last night was purulent drainage) Monitor on repeat Plan Lovenox 30mg SQ BID while inpatient -- has been refusing continued inpatient stay on abx, monitor cx/clinical course PT/OT consulted Admission and Anticipated Discharge Date Admission Date: July 05, 2022 Supervising Physician Co-Signing Physician Notes PA Supervision Note: I did not personally see or examine the patient today, but I verified all boone points of HAYDEE Arroyo's assessment and plan with the following exceptions/additions: None Subjective Evaluated this afternoon, at bedside. Given lasix last night, made lots of urine. Holding further diuretics. Rec low salt -- she has been doing [employer]/low calories/premade and lost 30- 40lb, however discussed salt probably high and would limit/cut back. Her notes they have begun to start to look at sodium content. She said Dr Rodríguez was in this morning but she isn't really sure what he said. Discussed R heart failure, BiPAP use, decompensation. If unwilling for BiPAP but wanted to use, consideration for trach. She declines this. Noted that she will have her bring in her machine tonight and use and try to be compliant. Code status discussed -- she would like CPR/intubation if felt could make meaningful recovery like this current time but that she wouldn't want to be prolonged/vegetable. Her going to also bring in her bedside commode as none currently able to accommodate. Breathing does feel improved. SHe does have a heaviness w/ breathing when laying further back in bed. Discussed likely related to her heart failure. Again stressed low salt/BiPAP compliance. Review of Systems Review of Systems: All systems reviewed & are unremarkable except as noted in HPI & below Physical Exam Physical Exam: General: WD morbidly obese female sitting up at side of bed, NAD, at bedside, his brother this morning HEENT: head normocephalic, atraumatic, +thick neck, trachea midline, mmm Resp: poor inspiratory effort due to size, but clear to auscultation, diminished in the bases, on 3L NC CV: RRR, no appreciable m/r/g, no pitting edema but has chronic lymphedema and legs in compressive therapy GI: obese, soft, tender in region of cellulitis , within markings and improved, less tender. significant pannus extending down to about her knees, hardened/dry/cracked area without significant drainage/opening some dried blood to edge of umbilicus. No expressible purulent drainage MSK/Neuro/skin: significant erythema to lower abdomen/pannus extending to right thigh, IMPROVED. moves extremities on command, no focal deficit Psych: AOx3, cooperative Results & Data Results & Data ([facility]) Vital Signs (Past 12 Hours) Vital Signs Temp Pulse Pulse Resp BP Pulse Ox O2 Del Method 07/07/22 07:49 36.5 C 75 18 132/79 95 Nasal Cannula 07/07/22 02:45 36.8 C 87 18 106/70 94 Nasal Cannula 07/06/22 22:05 84 07/06/22 22:59 36.9 C 85 18 112/68 96 Nasal Cannula 07/06/22 21:52 Nasal Cannula O2 Flow Rate 07/07/22 07:49 4 07/07/22 02:45 4 07/06/22 22:05 07/06/22 22:59 4 07/06/22 21:52 Laboratory Results 07/07/22 07/07/22 07/07/22 Range/Units 07:33 06:46 06:46 WBC (4.8-10.8) K/ul RBC (3.93-5.22) M/uL Hgb (12.0-16.0) g/dl Hct (34.1-44.9) % MCV (80.0-100.0) fL MCH (25.0-34.0) pg MCHC (32.0-36.0) g/dL RDW Std Deviation (36.4-46.3) fL RDW Coeff of Cherelle (11.5-14.5) % Plt Count (130-400) K/uL MPV (9.4-12.3) fL Immature Gran % (Auto) % Neut % (Auto) % Lymph % (Auto) % Ballard % (Auto) % Eos % (Auto) % Baso % (Auto) % Neut # (Auto) (1.4-6.5) K/uL Lymph # (Auto) (1.2-3.4) K/uL Ballard # (Auto) (0.24-0.82) K/uL Eos # (Auto) (0-0.50) K/uL Baso # (Auto) (0-0.2) K/uL Immature Gran # (Auto) (0.00-0.02) K/uL Sodium (136-145) mmol/L Potassium (3.5-5.1) mmol/L Chloride (98-107) mmol/L Carbon Dioxide (21-32) mmol/L Anion Gap (3-11) BUN (6-23) mg/dl Creatinine (0.6-1.2) mg/dl Est Cr Clr Drug Dosing ml/min Est GFR ( Amer) ml/min Est GFR (Non-Af Amer) ml/min BUN/Creatinine Ratio (10-20) Glucose (70-99(Fasting)) mg/dl POC Glucose 132 H (70-99) mg/dl Estimat Average Glucose mg/dl Hemoglobin A1c (4.5-5.6) % Calcium (8.5-10.1) mg/dl Iron (35-150) mcg/dl TIBC (250-450) mcg/dl Unsaturated IBC (155-355) mcg/dl Transferrin % Sat (15-50) % Ferritin (8-388) ng/ml Troponin I High Sens (0-14) pg/ml B-Natriuretic Peptide 111 H (0-100) pg/ml Lyme Disease IgG Ab Negative (Negative) Lyme Disease IgM Ab Negative (Negative) 07/07/22 07/07/22 07/07/22 Range/Units 06:46 06:46 02:01 WBC 9.42 (4.8-10.8) K/ul RBC 3.42 L (3.93-5.22) M/uL Hgb 9.1 L (12.0-16.0) g/dl Hct 30.5 L (34.1-44.9) % MCV 89.2 (80.0-100.0) fL MCH 26.6 (25.0-34.0) pg MCHC 29.8 L (32.0-36.0) g/dL RDW Std Deviation 64.3 H (36.4-46.3) fL RDW Coeff of Cherelle 19.9 H (11.5-14.5) % Plt Count 192 (130-400) K/uL MPV 10.9 (9.4-12.3) fL Immature Gran % (Auto) % Neut % (Auto) % Lymph % (Auto) % Ballard % (Auto) % Eos % (Auto) % Baso % (Auto) % Neut # (Auto) (1.4-6.5) K/uL Lymph # (Auto) (1.2-3.4) K/uL Ballard # (Auto) (0.24-0.82) K/uL Eos # (Auto) (0-0.50) K/uL Baso # (Auto) (0-0.2) K/uL Immature Gran # (Auto) (0.00-0.02) K/uL Sodium 139 (136-145) mmol/L Potassium 3.9 (3.5-5.1) mmol/L Chloride 102 (98-107) mmol/L Carbon Dioxide 31 (21-32) mmol/L Anion Gap 6 (3-11) BUN 29 H (6-23) mg/dl Creatinine 1.97 H (0.6-1.2) mg/dl Est Cr Clr Drug Dosing 34.0 ml/min Est GFR ( Amer) 30.0 ml/min Est GFR (Non-Af Amer) 25.8 ml/min BUN/Creatinine Ratio 14.7 (10-20) Glucose 120 H (70-99(Fasting)) mg/dl POC Glucose 96 (70-99) mg/dl Estimat Average Glucose mg/dl Hemoglobin A1c (4.5-5.6) % Calcium 9.0 (8.5-10.1) mg/dl Iron 33 L (35-150) mcg/dl TIBC 229 L (250-450) mcg/dl Unsaturated IBC 196 (155-355) mcg/dl Transferrin % Sat 14 L (15-50) % Ferritin 202.6 (8-388) ng/ml Troponin I High Sens (0-14) pg/ml B-Natriuretic Peptide (0-100) pg/ml Lyme Disease IgG Ab (Negative) Lyme Disease IgM Ab (Negative) 07/06/22 07/06/22 07/06/22 Range/Units 20:13 16:30 15:02 WBC (4.8-10.8) K/ul RBC (3.93-5.22) M/uL Hgb (12.0-16.0) g/dl Hct (34.1-44.9) % MCV (80.0-100.0) fL MCH (25.0-34.0) pg MCHC (32.0-36.0) g/dL RDW Std Deviation (36.4-46.3) fL RDW Coeff of Cherelle (11.5-14.5) % Plt Count (130-400) K/uL MPV (9.4-12.3) fL Immature Gran % (Auto) % Neut % (Auto) % Lymph % (Auto) % Ballard % (Auto) % Eos % (Auto) % Baso % (Auto) % Neut # (Auto) (1.4-6.5) K/uL Lymph # (Auto) (1.2-3.4) K/uL Ballard # (Auto) (0.24-0.82) K/uL Eos # (Auto) (0-0.50) K/uL Baso # (Auto) (0-0.2) K/uL Immature Gran # (Auto) (0.00-0.02) K/uL Sodium (136-145) mmol/L Potassium (3.5-5.1) mmol/L Chloride (98-107) mmol/L Carbon Dioxide (21-32) mmol/L Anion Gap (3-11) BUN (6-23) mg/dl Creatinine (0.6-1.2) mg/dl Est Cr Clr Drug Dosing ml/min Est GFR ( Amer) ml/min Est GFR (Non-Af Amer) ml/min BUN/Creatinine Ratio (10-20) Glucose (70-99(Fasting)) mg/dl POC Glucose 149 H 119 H 116 H (70-99) mg/dl Estimat Average Glucose mg/dl Hemoglobin A1c (4.5-5.6) % Calcium (8.5-10.1) mg/dl Iron (35-150) mcg/dl TIBC (250-450) mcg/dl Unsaturated IBC (155-355) mcg/dl Transferrin % Sat (15-50) % Ferritin (8-388) ng/ml Troponin I High Sens (0-14) pg/ml B-Natriuretic Peptide (0-100) pg/ml Lyme Disease IgG Ab (Negative) Lyme Disease IgM Ab (Negative) 07/06/22 07/06/22 07/06/22 Range/Units 12:59 11:32 07:34 WBC (4.8-10.8) K/ul RBC (3.93-5.22) M/uL Hgb (12.0-16.0) g/dl Hct (34.1-44.9) % MCV (80.0-100.0) fL MCH (25.0-34.0) pg MCHC (32.0-36.0) g/dL RDW Std Deviation (36.4-46.3) fL RDW Coeff of Cherelle (11.5-14.5) % Plt Count (130-400) K/uL MPV (9.4-12.3) fL Immature Gran % (Auto) % Neut % (Auto) % Lymph % (Auto) % Ballard % (Auto) % Eos % (Auto) % Baso % (Auto) % Neut # (Auto) (1.4-6.5) K/uL Lymph # (Auto) (1.2-3.4) K/uL Ballard # (Auto) (0.24-0.82) K/uL Eos # (Auto) (0-0.50) K/uL Baso # (Auto) (0-0.2) K/uL Immature Gran # (Auto) (0.00-0.02) K/uL Sodium (136-145) mmol/L Potassium (3.5-5.1) mmol/L Chloride (98-107) mmol/L Carbon Dioxide (21-32) mmol/L Anion Gap (3-11) BUN (6-23) mg/dl Creatinine (0.6-1.2) mg/dl Est Cr Clr Drug Dosing ml/min Est GFR ( Amer) ml/min Est GFR (Non-Af Amer) ml/min BUN/Creatinine Ratio (10-20) Glucose (70-99(Fasting)) mg/dl POC Glucose 97 (70-99) mg/dl Estimat Average Glucose 237 mg/dl Hemoglobin A1c 9.9 H (4.5-5.6) % Calcium (8.5-10.1) mg/dl Iron (35-150) mcg/dl TIBC (250-450) mcg/dl Unsaturated IBC (155-355) mcg/dl Transferrin % Sat (15-50) % Ferritin (8-388) ng/ml Troponin I High Sens 64.7 H* D (0-14) pg/ml B-Natriuretic Peptide (0-100) pg/ml Lyme Disease IgG Ab (Negative) Lyme Disease IgM Ab (Negative) 07/06/22 07/06/22 Range/Units 07:34 07:34 WBC 12.12 H (4.8-10.8) K/ul RBC 3.44 L (3.93-5.22) M/uL Hgb 9.3 L (12.0-16.0) g/dl Hct 29.9 L (34.1-44.9) % MCV 86.9 (80.0-100.0) fL MCH 27.0 (25.0-34.0) pg MCHC 31.1 L (32.0-36.0) g/dL RDW Std Deviation 61.4 H (36.4-46.3) fL RDW Coeff of Cherelle 19.4 H (11.5-14.5) % Plt Count 208 (130-400) K/uL MPV 11.8 (9.4-12.3) fL Immature Gran % (Auto) 0.7 % Neut % (Auto) 76.3 % Lymph % (Auto) 13.1 % Ballard % (Auto) 8.6 % Eos % (Auto) 1.0 % Baso % (Auto) 0.3 % Neut # (Auto) 9.35 H (1.4-6.5) K/uL Lymph # (Auto) 1.61 (1.2-3.4) K/uL Ballard # (Auto) 1.06 H (0.24-0.82) K/uL Eos # (Auto) 0.12 (0-0.50) K/uL Baso # (Auto) 0.04 (0-0.2) K/uL Immature Gran # (Auto) 0.09 H (0.00-0.02) K/uL Sodium 136 (136-145) mmol/L Potassium 3.6 (3.5-5.1) mmol/L Chloride 102 (98-107) mmol/L Carbon Dioxide 29 (21-32) mmol/L Anion Gap 5 (3-11) BUN 29 H (6-23) mg/dl Creatinine 1.68 H (0.6-1.2) mg/dl Est Cr Clr Drug Dosing 45.2 ml/min Est GFR ( Amer) 36.3 ml/min Est GFR (Non-Af Amer) 31.3 ml/min BUN/Creatinine Ratio 17.3 (10-20) Glucose 152 H (70-99(Fasting)) mg/dl POC Glucose (70-99) mg/dl Estimat Average Glucose mg/dl Hemoglobin A1c (4.5-5.6) % Calcium 9.0 (8.5-10.1) mg/dl Iron (35-150) mcg/dl TIBC (250-450) mcg/dl Unsaturated IBC (155-355) mcg/dl Transferrin % Sat (15-50) % Ferritin (8-388) ng/ml Troponin I High Sens 99.8 H* D (0-14) pg/ml B-Natriuretic Peptide (0-100) pg/ml Lyme Disease IgG Ab (Negative) Lyme Disease IgM Ab (Negative) PG Care Time/CCT Total # of Minutes Spent Total Time Spent with Patient: Total time spent is greater than 50% in coordination of care (as documented) at patient's floor/unit and/or counseling patient: Coding Level of Care Code 39494 Subseq Hosp Care Lvl 3 Diagnoses Cellulitis of abdominal wall L03.311 Acute and chronic respiratory failure with hypoxia J96.21 Cellulitis L03.90 Diabetes E11.9; Z79.4 Diabetes mellitus complication status: without complication Diabetes mellitus fci insulin use: with fci use Diabetes mellitus type: type 2 Elevated troponin R77.8 Obstructive sleep apnea syndrome G47.33 Stage 3b chronic kidney disease N18.32 Hypothyroidism E03.9 CAD S/P percutaneous coronary angioplasty I25.10; Z98.61 Anemia D64.9 (1) Diabetes Diabetes mellitus complication status: without complication Diabetes mellitus fci insulin use: with medical office secretary use Diabetes mellitus type: type 2 Qualified Code(s): E11.9 - Type 2 diabetes mellitus without complications; Z79.4 - nursing home (current) use of insulin
[2022-07-07] MEDS ORDERED: INSULIN HUMAN NPH SC ONE (09:00)
[2022-07-07] MEDS: INSULIN ASPART PER UNIT SC SCH ×5 (09:02→21:47)
[2022-07-07] MEDS: NYSTATIN OINT 15 GM TUBE EXT SCH ×2 (09:03→21:52)
[2022-07-07] MEDS: FUROSEMIDE 20 MG TAB PO SCH (09:03)
[2022-07-07] MEDS: ENOXAPARIN INJ 30 MG/0.3 ML SYR SQ SCH ×2 (09:04→21:51)
--- NOTE | 2022-07-07 09:37 | Cardiology Consultation ---
Date of Consultation July 07, 2022 History of Present Illness Reason for Consultation: Severe pulmonary hypertension and cor pulmonale Requesting Physician: Kelly Arroyo Attending Physician: Carla Anguiano MD History of Present Illness Patient was admitted to the hospital with syncopal episode. It sounds like she had a rather significant cellulitis brewing in addition she had progression of her chronic shortness of breath. She went to walk about 15 to 20 foot distance and all of a sudden felt short of breath more so than her baseline and started to feel weak and ended up having a syncopal episode. Sounds like she was down for about 10 minutes. She has had some confusion in the next 36 hours or so likely related to her infection. She currently denies any chest pain or chest pressure. She is chronically short of breath and wears oxygen on a chronic basis. Her O2 sats have improved on 4 L at 95%. She is unaware of any palpitations or fluttering. She has marked lower extremity edema. She notes her swelling with lymphedema therapy as an outpatient has improved. She has been able unable to wear her BiPAP due to the fact that the mask is so uncomfortable for her. Her functional capacity is markedly limited due to her weight and her chronic dyspnea which only worsened after her COVID infection a year ago. Allergies Allergy/AdvReac Type Severity Reaction Status Date / Time Iodinated Contrast Media Allergy Severe Hives and Verified 07/05/22 23:08 kidney complications iodine Allergy Severe Hives and Verified 07/05/22 23:08 kidney complications shellfish derived Allergy Severe Anaphylaxis Verified 07/05/22 23:08 /Hives sulfite Allergy Severe HIVES AND Verified 07/05/22 23:08 THROAT CLOSES Home Medications Medication Instructions Recorded Confirmed Type insulin regular hum U-500 conc 500 See Rx Instructions .Route .COMPLEX 08/16/18 07/05/22 History unit/mL(3 mL) subcut pen rosuvastatin 20 mg tablet 20 mg PO HS 02/26/19 07/05/22 History tramadol 50 mg tablet 50 mg PO Q6H PRN Pain 05/17/20 07/05/22 History montelukast 10 mg tablet 10 mg PO HS 09/27/20 07/05/22 History levalbuterol tartrate 45 2 inh inhalation Q4H PRN Shortness 11/30/20 07/05/22 Rx mcg/actuation aerosol inhaler Of Breath Or Wheezing #15 grams (Xopenex HFA) nitroglycerin 0.4 mg sublingual 0.4 mg sublingual Q5M PRN Chest 11/30/20 07/05/22 History tablet Pain levalbuterol HCl 0.63 mg/3 mL 0.63 mg (3 mL) inhalation TID PRN 01/31/21 07/05/22 Rx solution for nebulization shortness of breath or wheezing #270 mL Oxygen Home #4 L 06/17/21 08/26/21 Rx epoetin milo 2,000 unit/mL 2,000 unit subcut .Q2WKS PRN LOW 08/26/21 07/05/22 History injection solution (Procrit) COUNT furosemide 20 mg tablet 20 mg PO DAILY 07/05/22 07/05/22 History levothyroxine 112 mcg tablet 112 mcg PO DAILY 07/05/22 07/05/22 History Patient History Medical History Acute respiratory failure with hypoxia Anemia ARDS (adult respiratory distress syndrome) Breathlessness CAD S/P percutaneous coronary angioplasty Chest pain Chronic respiratory failure 1 to 2 L oxygen COVID-19 Diabetes Diverticulitis Dyspnea GERD (gastroesophageal reflux disease) Hypertension Lymphedema Morbid obesity Morbid obesity due to excess calories Obesity hypoventilation syndrome Obstructive sleep apnea syndrome Proteinuria Secondary pulmonary hypertension Shortness of breath SOB (shortness of breath) Stage 3b chronic kidney disease Thyroid cancer Vitamin D deficiency Surgical History H/O endoscopy H/O partial thyroidectomy History of colonoscopy History of percutaneous coronary intervention Family History Other Diabetes Heart disease No pertinent family history Social History Smoking Status: Never smoker Second Hand Exposure: No; Do You Dip or Chew Tobacco: No; Tobacco Cessation Education Requested by Patient: No Hx Alcohol Use: No Hx Substance Use: No Preferred Language: Honduran 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 Ability: Effective Die Mounter Required: No Beliefs That Will Affect Care: None marital status: Current Living Situation: Spouse Current Living Situation Comment: current occupational status: disabled Other Information That Helps Us Care for You: No Feels Safe at Home: Yes Safety Concerns: Feels Safe At This Time Diet Comment: low carb high protein "like a gastirc bypass diet" states seeing nutrionist caffeine: Yes during the past year weight has: increased > 10 lbs Physical Activity Frequency: Does not Exercise Do you think of yourself as: straight/heterosexual Gender Identity: Female Assistive Devices: Bedside Commode, Lift Chair, Oxygen - Continuous, Scooter/Electric Scooter and Walker Results & Data ([facility]) Vital Signs (Past 12 Hours) Vital Signs Temp Pulse Pulse Resp BP Pulse Ox O2 Del Method 07/07/22 07:49 36.5 C 75 18 132/79 95 Nasal Cannula 07/07/22 02:45 36.8 C 87 18 106/70 94 Nasal Cannula 07/06/22 22:05 84 07/06/22 22:59 36.9 C 85 18 112/68 96 Nasal Cannula 07/06/22 21:52 Nasal Cannula O2 Flow Rate 07/07/22 07:49 4 07/07/22 02:45 4 07/06/22 22:05 07/06/22 22:59 4 07/06/22 21:52 Is awake alert and oriented x3 she did not appear short of breath using 4 L HEENT 2+ carotid upstrokes I did not appreciate carotid bruits Lungs: Markedly decreased breath sounds bilaterally no rales rhonchi or wheezing Heart: Regular rate and rhythm no appreciable murmurs her heart sounds are distant due to her chest wall size Abdomen: Soft, obese, positive bowel sounds, still with erythema across her entire abdomen and pannus Extremities: Mild swelling from the knee to her ankles with the use of compression stockings Marked swelling of her legs from her knees to her thighs IMPRESSIONS: 1. Cor pulmonale with severe pulmonary hypertension and associated RV dysfunction 2. Morbid obesity 3. Obstructive sleep apnea and obesity hypoventilation which is currently untreated 4. Chronic right-sided heart failure 5. History of coronary artery disease with angioplasty and stenting in 2018 6. Chronic kidney disease 7. History of significant COVID infection fall 2020 leading to worsening chronic hypoxemia As was discussed with the primary service yesterday I do not think this event was related to an arrhythmia. It is possible with her infection and borderline sepsis syndrome that she reduced her volume status and due to her pulmonary hypertension and RV dysfunction could not adequately perfuse her body due to inadequately feeling her left ventricle. With regards to her swelling she should continue with lymphedema therapy as an outpatient it is a balancing act between worsening her renal function and trying to control her volume status. We will have to accept some degree of prerenal azotemia long-term and I would continue with her current diuretics. Unfortunately she does not wish to consider CPAP or BiPAP at this point as she is on able to tolerate the mask. This is only going to exacerbate her right- sided heart failure symptoms and pulmonary hypertension moving forward. An extreme option to treat her obesity hypoventilation syndrome and sleep apnea and to unload her right ventricle would be to consider something like a chronic tracheostomy but this is fraught with significant risk of infection long-term. With the trach though she could be put on ventilation overnight which would help unload her right ventricle improve her oxygenation and reduce her right-sided heart failure symptoms. Troponin elevation is likely on the basis of chronically elevated right heart pressures and underlying hypoperfusion due to her syncopal event. This does not represent an acute coronary syndrome.
--- NOTE | 2022-07-07 14:35 | Pharmacy Report ---
Pharmacy Glycemic Short Note 2 - Date of Service July 07, 2022 - Glycemic Short BSG Results (Last 24 hours): 07/06/22 07/06/22 07/06/22 15:02 16:30 20:13 Glucose POC Glucose 116 H 119 H 149 H 07/07/22 07/07/22 07/07/22 02:01 06:46 07:33 Glucose 120 H POC Glucose 96 132 H 07/07/22 11:43 Glucose POC Glucose 179 H OUTPATIENT ANTIDIABETIC REGIMEN: * insulin U-500: 60 units with breakfast, 65 units with Lunch, 70 units with dinner as of 06/12/22 fill Hx * Hemoglobin A1C of 9.9% 07/06/22 ASSESSMENT: 07/07/22 * Patient received 70 units of U500 insulin and 6 units of bolus insulin * Switched over to NPH from U500 due to low blood sugars yesterday and overall smaller insulin requirement, fasting blood sugar below goal * Added Novolog coverage using a Stress of 3, CR tighened today due to lunchtime blood sugar above goal 07/06/22 * Patient is a 66 y/o F admitted with cellulitis with history of T2DM treated with U500 insulin outpatient. * Inital presentation blood glucose of 407 treated with 10 units of IV regular insulin * Fasting blood glucose within goal range, will continue U500 dosing conservatively and based on historical inpatient needs. PLAN FOR INPATIENT GLYCEMIC CONTROL: * Hold outpatient oral diabetes medications * Basal insulin * insulin NPH 35 units QAM and 15 units QDD * Bolus insulin * Goal Range: Low 120 mg/dL - High 160 mg/dL * Correction factor: 10 * Carb Ratio: 1 unit per 3 carbohydrates consumed
[2022-07-07] MEDS ORDERED: INSULIN HUMAN NPH SC SCH ×2 (16:30→21:00)
[2022-07-07] MEDS ORDERED: EPOETIN ALFA 40,000 UNITS/ML VIAL SQ ONE (16:41)
[2022-07-07] MEDS: DAPTOmycin 350 MG in SYRINGE 0 ML IV SCH (20:47)
[2022-07-07] MEDS: MONTELUKAST SODIUM 10 MG TABLET PO SCH (21:51)
[2022-07-08] MEDS: PIPERACILLIN/TAZOBACTAM 4.5 GM in DEXTROSE 5% 100 ML IV SCH ×2 (01:33→10:05)
[2022-07-08] MEDS: LEVOTHYROXINE SODIUM 112 MCG TABLET PO SCH (05:32)
[2022-07-08 07:42] LABS: BUN Creatinine Ratio 14.6 (10-20); Calcium 8.9 mg/dl (8.5-10.1); Creatinine Clr Calc Pharmacy 32.8 ml/min; Est GFR (African American) 28.5 ml/min; Est GFR (Non-African American) 24.6 ml/min; Potassium 4.1 mmol/L (3.5-5.1)
[2022-07-08 07:52] LABS: Hematocrit (blood only) 32.6 % (34.1-44.9); Hemoglobin 9.8 g/dl (12.0-16.0); Mean Corpuscular Hgb Conc 30.1 g/dL (32.0-36.0); Mean Corpuscular Volume 89.8 fL (80.0-100.0); Mean Platelet Volume 11.6 fL (9.4-12.3); Platelet Count 224 K/uL (130-400); RDW Coefficient of Variation 19.9 % (11.5-14.5); RDW Standard Deviation 64.6 fL (36.4-46.3); Red Blood Count 3.63 M/uL (3.93-5.22); White Blood Count 8.88 K/ul (4.8-10.8)
--- NOTE | 2022-07-08 08:09 | Hospitalist Progress Note ---
Date of Service July 08, 2022 Assessment & Plan (1) Cellulitis of abdominal wall: Plan: Admitted for acute onset of lower abdominal pain/erythema Initial Pro-Christiano is negative lactic acid is mildly elevated she is however hypoxic and tachycardic on presentation to consider SIRS Patient reported drainage from umbilicus about 2 days ago, bloody reported and then spread in same manner as prior cellulitis when seen in ER in March (tx w/ Ceftriaxone/Doxy and sent with PO Doxy/Keflex) and reports being up/walking around with increased shortness of breath/pain and then became unconscious for about 101-5minutes before being awoken by her . Denies feeling dizzy/lightheaded. Had been attempting to wean O2 to 3L outpatient but requires increased needs when up/moving around BSG was 400 on admit as well and she did report having a fever of about 101F at home Lactic 2.1--> 1.2 on repeat. Procal 0.09. WBC 10.9k on admit CTAP w/ skin thickening with subcutaneous edema of the lower abdominal wall pannus and imaged upper right thigh. Correlate clinically to exclude cellulitis. No abscess. Placed on Zosyn/Daptomycin IV -- continue (hx MRSA R foot Aug 2021) WBC wnl, afebrile BCx NGTD -- monitor Cx able to be obtained from umbilical drainage --> staph species on preliminary, monitor final --Given hx MRSA and prior effective tx w/ Doxy/Keflex from ER w/ quick resolution and renal dysfunction, will discontinue Zosyn and continue Dapto and plan for Doxycycline at discharge Wound RN consulted -- moisture wicking sheets to groin folds provided. See note for further ins truction Erythema improved, significant improvement over past 48 hours and was going to d/c on oral abx today however patient would like to monitor overnight and d/c tomorrow given travel/husbands brother passing//weather/etc Planning for d/c tomorrow (2) Acute and chronic respiratory failure with hypoxia: Plan: Patient has previous history of COVID infection and obstructive sleep apnea. COVID 19 in May 2021 Had been using BiPAP faithfully up until this past summer after continued nasal breakdown/intolerance of mask. Continued discussions about need for BiPAP -- she has been using 2-4L at home, has a concentrator and REFUSED CPAP and insists on sitting up in chair to help with her breathing and that should be enough. Discussed not how it works, but cannot convince patient currently on 07/06 prior to ECHO Of note, patient w/ hx CAD/PCI, not on ASA given GI bleeding States that her chronic failure is not from COPD nor COVID -- I did worry about possible CHF contribtuing/R sided heart failure however volume status difficult to assess given chronic lymphedema Cardiology consulted given ECHO w/ R sided failure from obesity/hypoventilation, mod aortic stenosis. Could be contribution w/ sepsis syndrome for her syncopal episode (also see R knee below) Given lasix 20mg IV 07/06, cards consulted for 07/07 and rec no change to diuretic regimen. STRONG encouragement for low salt diet again discussed with patient today -- see prior notes salt shaker at bedside/pre-made meals for ease of use Did get patient to use her CPAP last evening 07/07, and will continue to utilize as able Consideration to add low dose aldactone for R heart failure for volume management? She was increased to 5L after getting up/cleaned up this morning--> asked RN to titrate to maintain sats, back to usual 4L and 96%. Further titrate as able Consider repeating 2step/ambulatory pulse ox to re-demonstrate needs prior to d/c (3) Cellulitis: Plan: as above monitor w/ treatment (4) Diabetes: Plan: Last A1c 10.28 May 2021, repeat 9.9 Typically on U500, 180u daily BSG 400 on admit, no anion gap Given 10u IV insulin Pharmacy consulted , appreciate assistance BSGs improved/controlled Outpt endocrinology f/u (5) Elevated troponin: Plan: Trop 22 on admit --> 99.8 --> 64.7 on repeat, insetting of syncope and CKD (cr baseline) Suspect demand ischemia in setting of infection, improved w/ treatment outlined above DENIES CP, denies SOB (above her baseline, however hx CAD w/ progressive COOPER s/p PCI w/ stent in 2018). EKG unchanged. EKG c CP Monitor on telemetry -- NSR/sinus tach when getting up/moving around at times Given LOC/syncope prior to admit, not on cardiac meds, will check ECHO for completeness -- see above. Cards consulted, not cardiac, demand from infection No CP reported (6) Obstructive sleep apnea syndrome: Plan: Patient has not been wearing her home CPAP and will refuse if ordered in the hospital -- see above under respiratory failure, she did use this last evening (7) Stage 3b chronic kidney disease: Plan: Cr baseline appears 1.5-1.8 over the past year, 1.58 on admit Cr 1.97 on 07/07 (given lasix 20mg IV evening prior, AM lasix had been on hold) until 07/[address] Mckenna, also with Kelly Peoples outpatient for anemia and takes erythropoietin D3ycoup (was previously every one week, but spaced out as was stable) Discussed w/ heme/onc given SOB/O2 requirements and not quite at prior baseline and iron labs obtained/retacrit given and can have outpt f/u CCP for further treatment/monitoring Per cards, may need to accept degree of pre-renal azotemia and rec'd to continue usual 20mg daily CR essentially unchanged today @ 2 from 1.97- likely from medications/abx for infection, already got dose of lasix 20mg this morning and will continue, making plenty of urine. Does not appear dehydrated on exam (actually edema, w/ chronic edema however difficult to assess volume status) DISCONTINUED Zosyn as above, remains on dapto. Statin held while on dapto. CK without elevation Making plenty of urine. BMp in AM Can reach out to Dr Mckenna if needed, ?consider adding spironolactone for R heart failure (8) Hypothyroidism: Plan: TSH 1.5 Continues Synthroid 112mcg daily (9) CAD S/P percutaneous coronary angioplasty: Plan: JHx CAD s/p PCI with stent placement in December 2017, follows with Dr. Rodríguez as outpatient Previously on losartan 50mg, norvasc 5mg daily, since discontinued No on BB, GI bleeding w/ Aspirin (although appears was from bleeding vessel in small bowels that was addressed in past) -- really should consider plavix (but she has even been refusing the lovenox injections) Remains on crestor 20mg daily -- placed on hold while on Dapto (10) Anemia: Plan: chronic, prior followed with Dr Bear, currently with CCP, Kelly Peoples Getting retacrit Qweekly for a while, recently backed to [id number] given stability Hgb had been 10-11, 9s on admit discussed with CCP, last administration last week per patient, and can check iron panel w/ AM labs/dose if needed -- dose provided for hgb 9.1 No bleeding reported (but did have some bloody drainage from umbilicus reported as above-- day prior had purulent drainage) Hgb 9.8 , monitor (11) Degenerative arthritis of right knee: Plan: reported R knee pain effective pain control w/ tramadol, uses at home. Denied any trauma w/ her syncopal episode, imaging w/ possible Indeterminate cortical lucency along the medial tibial plateau. This was not seen on prior examinations and a nondisplaced fracture is not excluded. A CT could be considered for further assessment. Ortho consulted -- see note Patient declined CT/size, and had been ambulating w/ PT yesterday and reported no increase from her chronic knee pain WB as tolerated PT/OT have been following Can f/u [facility] ortho as needed Plan Lovenox 30mg SQ BID while inpatient -- has been refusing d/c zosyn, monitor final cx likely d/c on PO abx tomorrow with doxycycline Admission and Anticipated Discharge Date Admission Date: July 05, 2022 Supervising Physician Co-Signing Physician Notes PA Supervision Note: I did not personally see or examine the patient today, but I verified all boone points of HAYDEE Arroyo's assessment and plan with the following exceptions/additions: None Subjective eval this morning, doing well erythema much improved cx with staph species, hx MRSA. considering d/c the Zosyn later today Ortho seen for R knee pain, has been ambulating, no trauma, no brace given size. She doesn't want CT at this time but can discuss in f/u PCP and WB as tolerated. Urine in purewick yellow. Discussed cx/possible dc today on Doxycycline given prior infection/ER trip and sent on Doxy/Keflex which she said cleared it right up. She does note she always gets a yeast infection w/ abx and requests dose of diflucan at d/c as well. Would like to continue monitoring overnight/finalized cultures given transportation//etc, and will aim for d/c tomorrow but send abx for tonight so that can car pick up driver early. She did wear her CPAP last night, does have a little bit of breakdown on her nose but she is willing to continue using as tolerated and encouraged compliance. Questions/concerns addressed at this time. Review of Systems Review of Systems: All systems reviewed & are unremarkable except as noted in HPI & below Physical Exam Physical Exam: General: WD morbidly obese female sitting up in bed, eating lunch, NAD HEENT: head normocephalic, atraumatic, +thick neck, trachea midline, mmm Resp: poor inspiratory effort due to size, but clear to auscultation, diminished in the bases, on 5L NC as just got back in bed from getting washed up CV: RRR, no appreciable m/r/g, chronic lymphedema b/l LE in compression therapy GI: obese, soft, erythema/cellulitis to abdominal wall vastly improved, minimal warmth/tenderness, receeded from markings, no obvious drainage from umbilicus MSK/Neuro/skin: moves extremities, no focal deficit, no obvious deformity to R knee however reports pain to anterior/medial aspect, slight effusion, no bruising/opening no facial droop/slurred speech, follows commands Psych: AOx3, cooperative Results & Data Results & Data ([facility]) Vital Signs (Past 12 Hours) Vital Signs Temp Pulse Pulse Resp BP Pulse Ox O2 Del Method 07/08/22 04:00 36.5 C 74 18 102/82 96 CPAP 07/07/22 22:10 72 07/07/22 23:39 36.5 C 79 20 108/58 L 98 CPAP 07/07/22 23:37 Nasal Cannula O2 Flow Rate 07/08/22 04:00 07/07/22 22:10 07/07/22 23:39 07/07/22 23:37 4 Laboratory Results 07/08/22 07/08/22 07/08/22 Range/Units 07:54 06:31 06:31 WBC 8.88 (4.8-10.8) K/ul RBC 3.63 L (3.93-5.22) M/uL Hgb 9.8 L (12.0-16.0) g/dl Hct 32.6 L (34.1-44.9) % MCV 89.8 (80.0-100.0) fL MCH 27.0 (25.0-34.0) pg MCHC 30.1 L (32.0-36.0) g/dL RDW Std Deviation 64.6 H (36.4-46.3) fL RDW Coeff of Cherelle 19.9 H (11.5-14.5) % Plt Count 224 (130-400) K/uL MPV 11.6 (9.4-12.3) fL Sodium 137 (136-145) mmol/L Potassium 4.1 (3.5-5.1) mmol/L Chloride 101 (98-107) mmol/L Carbon Dioxide 28 (21-32) mmol/L Anion Gap 8 (3-11) BUN 30 H (6-23) mg/dl Creatinine 2.05 H (0.6-1.2) mg/dl Est Cr Clr Drug Dosing 32.8 ml/min Est GFR ( Amer) 28.5 ml/min Est GFR (Non-Af Amer) 24.6 ml/min BUN/Creatinine Ratio 14.6 (10-20) Glucose 90 (70-99(Fasting)) mg/dl POC Glucose 106 H (70-99) mg/dl Calcium 8.9 (8.5-10.1) mg/dl Total Creatine Kinase 17 L (26-192) U/L 07/08/22 07/07/22 07/07/22 Range/Units 06:13 22:06 20:21 WBC (4.8-10.8) K/ul RBC (3.93-5.22) M/uL Hgb (12.0-16.0) g/dl Hct (34.1-44.9) % MCV (80.0-100.0) fL MCH (25.0-34.0) pg MCHC (32.0-36.0) g/dL RDW Std Deviation (36.4-46.3) fL RDW Coeff of Cherelle (11.5-14.5) % Plt Count (130-400) K/uL MPV (9.4-12.3) fL Sodium (136-145) mmol/L Potassium (3.5-5.1) mmol/L Chloride (98-107) mmol/L Carbon Dioxide (21-32) mmol/L Anion Gap (3-11) BUN (6-23) mg/dl Creatinine (0.6-1.2) mg/dl Est Cr Clr Drug Dosing ml/min Est GFR ( Amer) ml/min Est GFR (Non-Af Amer) ml/min BUN/Creatinine Ratio (10-20) Glucose (70-99(Fasting)) mg/dl POC Glucose 95 91 86 (70-99) mg/dl Calcium (8.5-10.1) mg/dl Total Creatine Kinase (26-192) U/L 07/07/22 07/07/22 Range/Units 16:34 11:43 WBC (4.8-10.8) K/ul RBC (3.93-5.22) M/uL Hgb (12.0-16.0) g/dl Hct (34.1-44.9) % MCV (80.0-100.0) fL MCH (25.0-34.0) pg MCHC (32.0-36.0) g/dL RDW Std Deviation (36.4-46.3) fL RDW Coeff of Cherelle (11.5-14.5) % Plt Count (130-400) K/uL MPV (9.4-12.3) fL Sodium (136-145) mmol/L Potassium (3.5-5.1) mmol/L Chloride (98-107) mmol/L Carbon Dioxide (21-32) mmol/L Anion Gap (3-11) BUN (6-23) mg/dl Creatinine (0.6-1.2) mg/dl Est Cr Clr Drug Dosing ml/min Est GFR ( Amer) ml/min Est GFR (Non-Af Amer) ml/min BUN/Creatinine Ratio (10-20) Glucose (70-99(Fasting)) mg/dl POC Glucose 105 H 179 H (70-99) mg/dl Calcium (8.5-10.1) mg/dl Total Creatine Kinase (26-192) U/L PG Care Time/CCT Total # of Minutes Spent Total Time Spent with Patient: Total time spent is greater than 50% in coordination of care (as documented) at patient's floor/unit and/or counseling patient: Coding Level of Care Code 27780 Subseq Hosp Care Lvl 3 Diagnoses Cellulitis of abdominal wall L03.311 Acute and chronic respiratory failure with hypoxia J96.21 Cellulitis L03.90 Diabetes E11.9; Z79.4 Diabetes mellitus complication status: without complication Diabetes mellitus snf insulin use: with snf use Diabetes mellitus type: type 2 Elevated troponin R77.8 Obstructive sleep apnea syndrome G47.33 Stage 3b chronic kidney disease N18.32 Hypothyroidism E03.9 CAD S/P percutaneous coronary angioplasty I25.10; Z98.61 Anemia D64.9 Degenerative arthritis of right knee M17.11 (1) Diabetes Diabetes mellitus complication status: without complication 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
--- NOTE | 2022-07-08 09:06 | XRay Report ---
RIGHT KNEE 2 VIEWS CLINICAL HISTORY: Recent fall. Right knee pain. FINDINGS: AP and crosstable lateral views of the right knee are compared to study dated 06/13/2019. T he examination is degraded by large body habitus. The patient declined a sunrise view. The skeletal s tructures are osteopenic. There is an indeterminate lucency along the medial aspect of the tibial marianela teau seen on the frontal view. This was not clearly seen on prior examinations and a nondisplaced fra cture is not excluded. No additional findings are suspicious for acute fracture. There is advanced de generative narrowing in the medial and patellofemoral compartments. Mild narrowing is seen in the lat eral compartment. There are marginal osteophytes and patellar enthesophytes. A joint effusion is note d. Soft tissue edema is seen around the knee. IMPRESSION: 1. Indeterminate cortical lucency along the medial tibial plateau. This was not seen on prior examina tions and a nondisplaced fracture is not excluded. A CT could be considered for further assessment. 2. No additional findings are suspicious for acute fracture. 3. Soft tissue edema and joint effusion without radiographic evidence of lipohemarthrosis. 4. Osteopenia and degenerative changes above. Electronically signed by: Puneet Castañeda M.D. 07/08/2022 9:04 AM
[2022-07-08] MEDS: FUROSEMIDE 20 MG TAB PO SCH (09:21)
[2022-07-08] MEDS: traMADol HCL 50 MG TABLET PO PRN ×3 (09:21→22:59)
[2022-07-08] MEDS: ENOXAPARIN INJ 30 MG/0.3 ML SYR SQ SCH ×2 (09:22→20:22)
[2022-07-08] MEDS: NYSTATIN OINT 15 GM TUBE EXT SCH ×2 (09:23→20:26)
[2022-07-08] MEDS: INSULIN ASPART PER UNIT SC SCH ×4 (09:26→20:23)
[2022-07-08] MEDS: INSULIN HUMAN NPH SC SCH (09:30)
--- NOTE | 2022-07-08 11:34 | Orthopedic Consultation ---
Date of Service July 08, 2022 Assessment & Plan (1) Degenerative arthritis of right knee: Radiographic findings noted on the medial tibial plateau. There is no clear propagation to the joint line. If it is a fracture, it would likely be stable. The patient was adamant that she desired no further work-up because she does not think she can get onto a CT or MRI table. She could not fully participate in the radiographic work-up as well. I think the most appropriate treatment would be simple observation. If she desired, more accurate diagnosis would likely be obtained by CT, fine cut, of the right knee. This would ultimately not likely address change clerk. She is not a candidate for surgery. Due to her body habitus she would not benefit from any type of bracing. She can be weightbearing and range of motion as tolerated, as she per tolerated this at her baseline yesterday. She can follow-up as needed with her outpatient orthopedic care that was previously established. History of Present Illness Reason for Consultation: Right knee pain Requesting Physician: . Attending Physician: Carla Anguiano MD 66-year-old female admitted for cellulitis of her abdominal wall with a complex medical history to include osteoarthritis of her knees managed by [facility], severe lower extremity lymphedema, morbid obesity BMI 66.9, type II diabetes chronic, diabetic foot ulcers chronic kidney disease, CAD, and hypothyroidism following cancer complains today of chronic right knee pain. She was seen in her hospital room with her present. They report a long history of knee pain due to arthritis. Her care has been complicated by lymphedema. She talked a lot about Puente's cyst formation and inability to drain. She described a long history of injection therapy but [facility] orth[facility]. They both report that she had no recent history of fall or injury. She did have syncopal episode prior to this admission related to her abdominal wall infection. There was no fall. She was transferred on her gurney but they cannot recall any instance where she might of injured her knee. She reports her knee pain is chronic. She does not think it has changed much. It usually occurs on the inside portion of her knee. She desires no further work-up. She says it is impossible for her to get onto the CT scanner table once again. She was adamant that she was walking about the room yesterday to the bathroom and participated in PT for knee range of motion. She felt her symptoms were stable. Allergies Allergy/AdvReac Type Severity Reaction Status Date / Time Iodinated Contrast Media Allergy Severe Hives and Verified 07/05/22 23:08 kidney complications iodine Allergy Severe Hives and Verified 07/05/22 23:08 kidney complications shellfish derived Allergy Severe Anaphylaxis Verified 07/05/22 23:08 /Hives sulfite Allergy Severe HIVES AND Verified 07/05/22 23:08 THROAT CLOSES Home Medications Medication Instructions Recorded Confirmed Type insulin regular hum U-500 conc 500 See Rx Instructions .Route .COMPLEX 08/16/18 07/05/22 History unit/mL(3 mL) subcut pen rosuvastatin 20 mg tablet 20 mg PO HS 02/26/19 07/05/22 History tramadol 50 mg tablet 50 mg PO Q6H PRN Pain 05/17/20 07/05/22 History montelukast 10 mg tablet 10 mg PO HS 09/27/20 07/05/22 History levalbuterol tartrate 45 2 inh inhalation Q4H PRN Shortness 11/30/20 07/05/22 Rx mcg/actuation aerosol inhaler Of Breath Or Wheezing #15 grams (Xopenex HFA) nitroglycerin 0.4 mg sublingual 0.4 mg sublingual Q5M PRN Chest 11/30/20 07/05/22 History tablet Pain levalbuterol HCl 0.63 mg/3 mL 0.63 mg (3 mL) inhalation TID PRN 01/31/21 07/05/22 Rx solution for nebulization shortness of breath or wheezing #270 mL Oxygen Home #4 L 06/17/21 08/26/21 Rx epoetin milo 2,000 unit/mL 2,000 unit subcut .Q2WKS PRN LOW 08/26/21 07/05/22 History injection solution (Procrit) COUNT furosemide 20 mg tablet 20 mg PO DAILY 07/05/22 07/05/22 History levothyroxine 112 mcg tablet 112 mcg PO DAILY 07/05/22 07/05/22 History Past Med/Surg History Medical History Acute respiratory failure with hypoxia Anemia ARDS (adult respiratory distress syndrome) Breathlessness CAD S/P percutaneous coronary angioplasty Chest pain Chronic respiratory failure 1 to 2 L oxygen COVID-19 Diabetes Diverticulitis Dyspnea GERD (gastroesophageal reflux disease) Hypertension Lymphedema Morbid obesity Morbid obesity due to excess calories Obesity hypoventilation syndrome Obstructive sleep apnea syndrome Proteinuria Secondary pulmonary hypertension Shortness of breath SOB (shortness of breath) Stage 3b chronic kidney disease Thyroid cancer Vitamin D deficiency Surgical History H/O endoscopy H/O partial thyroidectomy History of colonoscopy History of percutaneous coronary intervention Family History Other Diabetes Heart disease No pertinent family history Social History Smoking Status: Never smoker Second Hand Exposure: No; Do You Dip or Chew Tobacco: No; Tobacco Cessation Education Requested by Patient: No Hx Alcohol Use: No Hx Substance Use: No Preferred Language: Sinhala 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 Ability: Effective Medical Billing Manager Required: No Beliefs That Will Affect Care: None marital status: Current Living Situation: Spouse Current Living Situation Comment: current occupational status: disabled Other Information That Helps Us Care for You: No Feels Safe at Home: Yes Safety Concerns: Feels Safe At This Time Diet Comment: low carb high protein "like a gastirc bypass diet" states seeing nutrionist caffeine: Yes during the past year weight has: increased > 10 lbs Physical Activity Frequency: Does not Exercise Do you think of yourself as: straight/heterosexual Gender Identity: Female Assistive Devices: Bedside Commode, Lift Chair, Oxygen - Continuous, Scooter/Electric Scooter and Walker Review of Systems All systems reviewed & are unremarkable except as noted in HPI & below. Physical Exam Morbidly obese. Significant bilateral lower extremity edema with the right larger than the left through the thigh. Dry scaling skin. Lymphedema stockings in place bilaterally covering the leg to the knee. Right lower extremity: Lying symmetrically externally rotated. Exam limited by body habitus and patient desiring to avoid palpation. She was reluctant to move her legs for me. She was able to demonstrate dorsiflexion and plantarflexion. Weakly palpable PT pulse. Exquisitely tender on the medial side of the knee, but I cannot localize well as she wished to not participate in the exam anymore. She also had surprising tenderness to her foot that appeared otherwise normal. Constitutional + obese and comfortable; no acute distress Respiratory normal respiratory effort; no respiratory distress Cardiovascular Extremities: normal capillary refill Chest (Breasts) Chest: normal inspection of chest Skin no rashes, warm and dry Psychiatric A+Ox3, euthymic affect Results & Data Results & Data Laboratory Results . Diagnostic Findings Radiographs of the affected right knee include only an AP and lateral views due to lack participation for a sunrise view. The AP shows a linear lucency on the medial margin of the medial tibial plateau. No obvious propagation of this lucency towards the articular surface. There is obvious osteophytes and loss of joint space on the suboptimal AP view. PG Care Time/CCT Total # of Minutes Spent Total Time Spent with Patient: Total time spent is greater than 50% in coordination of care (as documented) at patient's floor/unit and/or counseling patient: Coding Level of Care Code 00153 Inpt Consult Level 3 Diagnoses Degenerative arthritis of right knee M17.11
[2022-07-08] MEDS ORDERED: INSULIN HUMAN NPH SC SCH (16:30)
[2022-07-08] MEDS: DAPTOmycin 350 MG in SYRINGE 0 ML IV SCH (20:26)
[2022-07-08] MEDS: MONTELUKAST SODIUM 10 MG TABLET PO SCH (20:28)
[2022-07-09] MEDS: LEVOTHYROXINE SODIUM 112 MCG TABLET PO SCH (07:41)
[2022-07-09 08:19] LABS: Hemoglobin 9.7 g/dl (12.0-16.0); Mean Corpuscular Hemoglobin 26.9 pg (25.0-34.0); Mean Corpuscular Hgb Conc 30.3 g/dL (32.0-36.0); Mean Corpuscular Volume 88.9 fL (80.0-100.0); Mean Platelet Volume 11.4 fL (9.4-12.3); Platelet Count 233 K/uL (130-400); RDW Standard Deviation 64.4 fL (36.4-46.3); White Blood Count 8.54 K/ul (4.8-10.8)
--- NOTE | 2022-07-09 08:19 | Hospitalist Progress Note ---
Date of Service July 09, 2022 Assessment & Plan (1) Cellulitis of abdominal wall: Plan: Admitted for acute onset of lower abdominal pain/erythema Initial Pro-Christiano is negative lactic acid is mildly elevated she is however hypoxic and tachycardic on presentation to consider SIRS Patient reported drainage from umbilicus about 2 days ago, bloody reported and then spread in same manner as prior cellulitis when seen in ER in March (tx w/ Ceftriaxone/Doxy and sent with PO Doxy/Keflex) and reports being up/walking around with increased shortness of breath/pain and then became unconscious for about 101-5minutes before being awoken by her . Denies feeling dizzy/lightheaded. Had been attempting to wean O2 to 3L outpatient but requires increased needs when up/moving around BSG was 400 on admit as well and she did report having a fever of about 101F at home Lactic 2.1--> 1.2 on repeat. Procal 0.09. WBC 10.9k on admit CTAP w/ skin thickening with subcutaneous edema of the lower abdominal wall pannus and imaged upper right thigh. Correlate clinically to exclude cellulitis. No abscess. Placed on Zosyn/Daptomycin IV -- continue (hx MRSA R foot Aug 2021) WBC wnl, afebrile BCx NGTD -- monitor Cx able to be obtained from umbilical drainage --> staph species on preliminary, monitor final --Given hx MRSA and prior effective tx w/ Doxy/Keflex from ER w/ quick resolution and renal dysfunction, will discontinue Zosyn and continue Dapto and plan for Doxycycline at discharge Wound RN consulted -- moisture wicking sheets to groin folds provided. See note for further ins truction Erythema improved, significant improvement over past 48 hours and was going to d/c on oral abx today however patient would like to monitor overnight and d/c tomorrow given travel/husbands brother passing//weather/etc Planning for d/c tomorrow (2) Acute and chronic respiratory failure with hypoxia: Plan: Patient has previous history of COVID infection and obstructive sleep apnea. COVID 19 in May 2021 Had been using BiPAP faithfully up until this past summer after continued nasal breakdown/intolerance of mask. Continued discussions about need for BiPAP -- she has been using 2-4L at home, has a concentrator and REFUSED CPAP and insists on sitting up in chair to help with her breathing and that should be enough. Discussed not how it works, but cannot convince patient currently on 07/06 prior to ECHO Of note, patient w/ hx CAD/PCI, not on ASA given GI bleeding States that her chronic failure is not from COPD nor COVID -- I did worry about possible CHF contribtuing/R sided heart failure however volume status difficult to assess given chronic lymphedema Cardiology consulted given ECHO w/ R sided failure from obesity/hypoventilation, mod aortic stenosis. Could be contribution w/ sepsis syndrome for her syncopal episode (also see R knee below) Given lasix 20mg IV 07/06, cards consulted for 07/07 and rec no change to diuretic regimen. STRONG encouragement for low salt diet again discussed with patient today -- see prior notes salt shaker at bedside/pre-made meals for ease of use Did get patient to use her CPAP last evening 07/07, and will continue to utilize as able Consideration to add low dose aldactone for R heart failure for volume management? She was increased to 5L after getting up/cleaned up this morning--> asked RN to titrate to maintain sats, back to usual 4L and 96%. Further titrate as able Consider repeating 2step/ambulatory pulse ox to re-demonstrate needs prior to d/c (3) Cellulitis: Plan: as above monitor w/ treatment (4) Diabetes: Plan: Last A1c 10.28 May 2021, repeat 9.9 Typically on U500, 180u daily BSG 400 on admit, no anion gap Given 10u IV insulin Pharmacy consulted , appreciate assistance BSGs improved/controlled Outpt endocrinology f/u (5) Elevated troponin: Plan: Trop 22 on admit --> 99.8 --> 64.7 on repeat, insetting of syncope and CKD (cr baseline) Suspect demand ischemia in setting of infection, improved w/ treatment outlined above DENIES CP, denies SOB (above her baseline, however hx CAD w/ progressive COOPER s/p PCI w/ stent in 2018). EKG unchanged. EKG c CP Monitor on telemetry -- NSR/sinus tach when getting up/moving around at times Given LOC/syncope prior to admit, not on cardiac meds, will check ECHO for completeness -- see above. Cards consulted, not cardiac, demand from infection No CP reported (6) Obstructive sleep apnea syndrome: Plan: Patient has not been wearing her home CPAP and will refuse if ordered in the hospital -- see above under respiratory failure, she did use this last evening (7) Stage 3b chronic kidney disease: Plan: Cr baseline appears 1.5-1.8 over the past year, 1.58 on admit Cr 1.97 on 07/07 (given lasix 20mg IV evening prior, AM lasix had been on hold) until 07/[address] Mckenna, also with [facility] outpatient for anemia and takes erythropoietin [id number] (was previously every one week, but spaced out as was stable) Discussed w/ heme/onc given SOB/O2 requirements and not quite at prior baseline and iron labs obtained/retacrit given and can have outpt f/u [facility] for further treatment/monitoring Per cards, may need to accept degree of pre-renal azotemia and rec'd to continue usual 20mg daily CR essentially unchanged today @ 2 from 1.97- likely from medications/abx for infection, already got dose of lasix 20mg this morning and will continue, making plenty of urine. Does not appear dehydrated on exam (actually edema, w/ chronic edema however difficult to assess volume status) DISCONTINUED Zosyn as above, remains on dapto. Statin held while on dapto. CK without elevation Making plenty of urine. BMp in AM Can reach out to Dr Mckenna if needed, ?consider adding spironolactone for R heart failure (8) Hypothyroidism: Plan: TSH 1.5 Continues Synthroid 112mcg daily (9) CAD S/P percutaneous coronary angioplasty: Plan: JHx CAD s/p PCI with stent placement in December 2017, follows with Dr. Rodríguez as outpatient Previously on losartan 50mg, norvasc 5mg daily, since discontinued No on BB, GI bleeding w/ Aspirin (although appears was from bleeding vessel in small bowels that was addressed in past) -- really should consider plavix (but she has even been refusing the lovenox injections) Remains on crestor 20mg daily -- placed on hold while on Dapto (10) Anemia: Plan: chronic, prior followed with Dr Baer, currently with [facility], [facility] Getting retacrit Qweekly for a while, recently backed to [id number] given stability Hgb had been 10-11, 9s on admit discussed with [facility]CP, last administration last week per patient, and can check iron panel w/ AM labs/dose if needed -- dose provided for hgb 9.1 No bleeding reported (but did have some bloody drainage from umbilicus reported as above-- day prior had purulent drainage) Hgb 9.8 , monitor (11) Degenerative arthritis of right knee: Plan: reported R knee pain effective pain control w/ tramadol, uses at home. Denied any trauma w/ her syncopal episode, imaging w/ possible Indeterminate cortical lucency along the medial tibial plateau. This was not seen on prior examinations and a nondisplaced fracture is not excluded. A CT could be considered for further assessment. Ortho consulted -- see note Patient declined CT/size, and had been ambulating w/ PT yesterday and reported no increase from her chronic knee pain WB as tolerated PT/OT have been following Can f/u [facility] ortho as needed Plan Lovenox 30mg SQ BID while inpatient -- has been refusing d/c zosyn, monitor final cx likely d/c on PO abx tomorrow with doxycycline Admission and Anticipated Discharge Date Admission Date: July 05, 2022 Results & Data Results & Data ([facility]) Vital Signs (Past 12 Hours) Vital Signs Temp Pulse Pulse Resp BP Pulse Ox O2 Del Method 07/09/22 07:39 36.7 C 79 18 110/70 94 Nasal Cannula 07/09/22 07:30 36.7 C 95 H 18 110/70 83 L Nasal Cannula 07/09/22 07:14 80 07/09/22 03:50 36.7 C 75 18 112/73 95 Nasal Cannula 07/08/22 22:00 36.5 C 78 18 113/72 95 Nasal Cannula O2 Flow Rate 07/09/22 07:39 4 07/09/22 07:30 4 07/09/22 07:14 07/09/22 03:50 4 07/08/22 22:00 2 Laboratory Results 07/09/22 07/09/22 07/09/22 Range/Units 07:57 07:57 07:55 WBC Pending RBC Pending Hgb Pending Hct Pending MCV Pending MCH Pending MCHC Pending Plt Count Pending Sodium Pending Potassium Pending Chloride Pending Carbon Dioxide Pending Anion Gap Pending BUN Pending Creatinine Pending Est Cr Clr Drug Dosing Pending Est GFR ( Amer) Pending Est GFR (Non-Af Amer) Pending BUN/Creatinine Ratio Pending Glucose Pending POC Glucose 120 H (70-99) mg/dl Calcium Pending 07/08/22 07/08/22 07/08/22 Range/Units 21:33 20:39 20:15 WBC RBC Hgb Hct MCV MCH MCHC Plt Count Sodium Potassium Chloride Carbon Dioxide Anion Gap BUN Creatinine Est Cr Clr Drug Dosing Est GFR ( Amer) Est GFR (Non-Af Amer) BUN/Creatinine Ratio Glucose POC Glucose 82 79 64 L* (70-99) mg/dl Calcium 07/08/22 07/08/22 Range/Units 16:49 11:58 WBC RBC Hgb Hct MCV MCH MCHC Plt Count Sodium Potassium Chloride Carbon Dioxide Anion Gap BUN Creatinine Est Cr Clr Drug Dosing Est GFR ( Amer) Est GFR (Non-Af Amer) BUN/Creatinine Ratio Glucose POC Glucose 73 131 H (70-99) mg/dl Calcium PG Care Time/CCT Total # of Minutes Spent Total Time Spent with Patient: Total time spent is greater than 50% in coordination of care (as documented) at patient's floor/unit and/or counseling patient: Coding Diagnoses Cellulitis of abdominal wall L03.311 Acute and chronic respiratory failure with hypoxia J96.21 Cellulitis L03.90 Diabetes E11.9; Z79.4 Diabetes mellitus complication status: without complication Diabetes mellitus intermediate insulin use: with intermediate use Diabetes mellitus type: type 2 Elevated troponin R77.8 Obstructive sleep apnea syndrome G47.33 Stage 3b chronic kidney disease N18.32 Hypothyroidism E03.9 CAD S/P percutaneous coronary angioplasty I25.10; Z98.61 Anemia D64.9 Degenerative arthritis of right knee M17.11 (1) Diabetes Diabetes mellitus complication status: without complication Diabetes mellitus intermediate manager insulin use: with intermediate manager use Diabetes mellitus type: type 2 Qualified Code(s): E11.9 - Type 2 diabetes mellitus without complications; Z79.4 - intermediate (current) use of insulin
[2022-07-09] MEDS: INSULIN HUMAN NPH SC SCH (08:37)
[2022-07-09] MEDS: INSULIN ASPART PER UNIT SC SCH ×2 (08:37→12:39)
[2022-07-09] MEDS: ENOXAPARIN INJ 30 MG/0.3 ML SYR SQ SCH (08:40)
[2022-07-09 08:43] LABS: BUN Creatinine Ratio 14.9 (10-20); Calcium 8.9 mg/dl (8.5-10.1); Creatinine Clr Calc Pharmacy 36.7 ml/min; Est GFR (African American) 33.2 ml/min; Est GFR (Non-African American) 28.6 ml/min; Potassium 3.8 mmol/L (3.5-5.1)
[2022-07-09] MEDS: NYSTATIN OINT 15 GM TUBE EXT SCH ×2 (08:43→08:45)
[2022-07-09] MEDS: traMADol HCL 50 MG TABLET PO PRN (08:45)
[2022-07-09] MEDS: FUROSEMIDE 20 MG TAB PO SCH (09:30)
[2022-07-09] MEDS ORDERED: FLUCONAZOLE 50 MG TAB PO ONE (11:10)
--- NOTE | 2022-07-09 11:14 | Discharge Summary ---
Date of Service July 09, 2022 Admission HPI Per Admitting Provider 66-year-old female with a history of diabetes chronic lower extremity lymphedema and morbid obesity with a BMI of 66.9 presents with erythematous tender abdomen. Patient had episode of loss of consciousness at home according to her family for 10 to 15 minutes she did not fall she had a fever at home. Working diagnosis is possibleSIR syndrome from abdominal wall cellulitis. Patient states that over the last few days she has had discharge from her umbilicus but it does not any focus pain to be correlating with the hernia seen on CT. Likewise she says her glucoses have been in good control until today. However today she did not take her U5 100 until the evening so she took her lunch and evening dose together for a total of 120 units. Patient denies any other changes in her physical being Admission Exam Per Admitting Provider Physical Exam: The patient appeared well nourished and normally developed. She is morbidly obese with a BMI of 66.9 Vital signs as documented. Head exam is normocephalic atraumatic Neck is without JVD, thyromegaly, or carotid bruits. Lungs are clear to auscultation, no focal loss of breath sounds Cardiac exam, Rhythm is regular.. No murmurs, rubs or gallops. Abdominal exam reveals normal bowel sounds, soft Significant erythema to the pannus no erythema down to her right thigh as suggested in the CT scan. There is intertrigo but there is no obvious discharge from her umbilicus as she complained about Extremities are significantly swollen bilaterally with chronic skin changes and both pedal pulses are present Neurologic exam is alert and oriented, no focal loss of strength or sensation Skin is with chronic venous stasis changes to her lower extremities and cellulitis to her abdomen Psychologically is without concerns for anxiety or depression.. Principal Diagnosis Cellulitis Discharge Exam General: WD morbidly obese female sitting up in bed, NAD HEENT: head normocephalic, atraumatic, +thick neck, trachea midline, mmm Resp: poor inspiratory effort due to size, but clear to auscultation, diminished in the bases, on 4L NC CV: RRR, no appreciable m/r/g, chronic lymphedema b/l LE in compression therapy GI: obese, soft, erythema/cellulitis to abdominal wall to pannus vastly improved/almost completely resolved, no obvious drainage from umbilicus MSK/Neuro/skin: moves extremities, no focal deficit, R knee tender to palpation along anterior knee cap/tibeal plateau. No bruising, slight effusion no facial droop/slurred speech, follows commands Psych: AOx3, cooperative Discharge Data Allergies Allergy/AdvReac Type Severity Reaction Status Date / Time Iodinated Contrast Media Allergy Severe Hives and Verified 07/05/22 23:08 kidney complications iodine Allergy Severe Hives and Verified 07/05/22 23:08 kidney complications shellfish derived Allergy Severe Anaphylaxis Verified 07/05/22 23:08 /Hives sulfite Allergy Severe HIVES AND Verified 07/05/22 23:08 THROAT CLOSES Consultations 07/05/22 22:49 ED Decision to Admit Stat 07/07/22 06:00 Consult Cardiology Routine 07/08/22 09:27 Consult Orthopedic Surgery Routine Ordered Studies Abdomen/Pelvis CT 07/05/22 20:[address] WITHOUT CONTRAST CT DOSE: 2434.98 mGy.cm HISTORY: Acute abdominal pain with reported abdominal wall cellulitis abdominal wall cellulitis TECHNIQUE: Multiaxial CT images of the abdomen and pelvis were performed without contrast. A dose lowering technique was utilized adhering to the principles of ALARA. COMPARISON STUDY: 03/25/2018 FINDINGS: Moderate coronary artery calcifications. Mild cardiomegaly with trace pericardial effusion. Mild bibasilar atelectasis with air trapping. There is no pneumatosis or pneumoperitoneum. The unenhanced spleen is enlarged measuring up to 13.5 cm in length. Mildly atrophic pancreas. Unremarkable adrenal glands. Contracted gallbladder. Hepatomegaly with hepatic steatosis. The liver measures up to 24 cm in length. No hepatic mass identified. Mild nonspecific bilateral perinephric stranding. No renal or ureteral calculi or hydronephrosis. Urinary bladder wall thickening with partial distention. Subcentimeter calcifications are noted within the uterus. Atherosclerosis of the aorta. No lymphadenopathy identified. No bowel obstruction or bowel wall thickening. Colonic diverticulosis. Normal appendix. Fat filled umbilical hernia with diastases of approximately 2.2 cm. There is skin thickening with subcutaneous edema of the pannus and proximal right thigh. No drainable fluid collection. No acute fracture. IMPRESSION: 1. No acute intra-abdominal or intrapelvic abnormality. 2. No bowel obstruction or bowel wall thickening. Normal appendix. 3. Small fat filled umbilical hernia. 4. Skin thickening with subcutaneous edema of the lower abdominal wall pannus and imaged upper right thigh. Correlate clinically to exclude cellulitis. No abscess. 5. Hepatosplenomegaly with hepatic steatosis. ACT 112: Negative or not required by law. The above report was generated using voice recognition software. It may contain grammatical, syntax or spelling errors. Electronically signed by: Jose Katz M.D. 07/06/2022 8:42 AM Knee X-Ray 07/08/22 08:08 RIGHT KNEE 2 VIEWS CLINICAL HISTORY: Recent fall. Right knee pain. FINDINGS: AP and crosstable lateral views of the right knee are compared to study dated 06/13/2019. The examination is degraded by large body habitus. The patient declined a sunrise view. The skeletal structures are osteopenic. There is an indeterminate lucency along the medial aspect of the tibial plateau seen on the frontal view. This was not clearly seen on prior examinations and a nondisplaced fracture is not excluded. No additional findings are suspicious for acute fracture. There is advanced degenerative narrowing in the medial and patellofemoral compartments. Mild narrowing is seen in the lateral compartment. There are marginal osteophytes and patellar enthesophytes. A joint effusion is noted. Soft tissue edema is seen around the knee. IMPRESSION: 1. Indeterminate cortical lucency along the medial tibial plateau. This was not seen on prior examinations and a nondisplaced fracture is not excluded. A CT could be considered for further assessment. 2. No additional findings are suspicious for acute fracture. 3. Soft tissue edema and joint effusion without radiographic evidence of lipohemarthrosis. 4. Osteopenia and degenerative changes above. Electronically signed by: Puneet Castañeda M.D. 07/08/2022 9:04 AM 07/06/22 ECHOCADIOGRAM Compared with 03/09/2021 study, evidence of cor pulmonale now present, moderate aortic stenosis and tricuspid regurgitation now seen, severe pulmonary hypertension now present. The study was technically difficult. The left ventricle is normal in size. Flattened septum consistent with RV pressure/volume overload. No regional wall motion abnormalities noted. Left ventricular systolic function is normal. Ejection Fraction 55-60%. The right ventricular systolic function is moderately reduced. There is moderate right ventricular hypertrophy. Moderate valvular aortic stenosis. There is moderate tricuspid regurgitation. Right ventricular systolic pressure is elevated at >60mmHg. The inferior vena cava is moderately dilated. 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 Denies feeling dizzy/lightheaded. Had been attempting to wean O2 to 3L outpatient with normal 4L at baseline, but required increased needs when up/moving around and likely became hypoxic with infection and syncopal episode related to SIRS, however obtained ECHO for completeness CTAP w/ skin thickening with subcutaneous edema of the lower abdominal wall pannus and imaged upper right thigh. Correlate clinically to exclude cellulitis. No abscess. Placed on Zosyn/Daptomycin IV while inpatient Patient w/ hx MRSA to R foot Aug 2021 (cannot r/o colonization) Was able to obtain cx from drainage from umbilicus, MRSA and patient was discharged on Doxycyline 100mg BID to completed course. She was given dose of diflucan PO x 1 prior to d/c for start of yeast infection. Wound RN consulted given pannus/moisture/further recs -- given moisture wicking sheets, encouraged continued use of such/similar at d/c and keeping area clean/dry Patients erythema almost completely resolved prior to discharge and to complete course total 14 days abx at d/c. (2) Acute and chronic respiratory failure with hypoxia: Patient has previous history of COVID infection and obstructive sleep apnea. COVID 19 in May 2021 Had been using BiPAP faithfully up until this past summer after continued nasal breakdown/intolerance of mask. Continued discussions about need for BiPAP -- she has been using 2-4L at home, h as a concentrator and REFUSED CPAP and insists on sitting up in chair to help with her breathing and that should be enough. Discussed not how it works, but could not convince patient currently on 12/15 prior to ECHO findings Of note, patient w/ hx CAD/PCI, not on ASA given GI bleeding States that her chronic failure is not from COPD nor COVID -- I did worry about possible CHF contributing/R sided heart failure however volume status difficult to assess given chronic lymphedema Cardiology consulted given ECHO w/ R sided failure from obesity/hypoventilation, mod aortic stenosis. Could be contribution w/ sepsis syndrome for her syncopal episode (also see R knee below) Given lasix 20mg IV 07/06, cards consulted for 07/07 and rec no change to diuretic regimen and she is to continue 20mg daily at discharge. To have f/u with nephrology for further eval/consideration for DAIJA/ARB therapy vs additional of spironolactone however HFpEF, R sided HF in morbidly obese female STRONG encouragement for low salt diet discussed with patient DAILY, patient utilizes lots of salt, has shaker at bedside. Encouraged salt substitutes. Offered nutrition referall, declined Attempted ambulatory study prior to discharged and discussed to complete prior to discharge to demonstrate needs however was discharged prior to this being completed. She should continue to monitor saturations at home and follow up with PCP. Stated breathing felt at baseline prior to discharge and was on her usual 4L. (3) Cellulitis: as above, improved with treatment (4) Diabetes: Last A1c 10.28 May 2021, repeat 9.9 Typically on U500, 180u daily BSG 400 on admit, no anion gap, Given 10u IV insulin Pharmacy consulted , appreciate assistance BSGs improved/controlled and discharged on home regimen and asked patient to check/monitor and follow up with Endocrinology She has been a while without follow up with endo/nephro/cards --> strongly encouraged follow up all three Outpt endocrinology f/u (5) Elevated troponin: Trop 22 on admit --> 99.8 --> 64.7 on repeat, insetting of syncope and CKD (cr baseline) Suspect demand ischemia in setting of infection, improved w/ treatment outlined above DENIES CP, denies SOB (above her baseline, however hx CAD w/ progressive COOPER s/p PCI w/ stent in 2018). EKG unchanged. EKG c CP Monitor on telemetry -- NSR/sinus tach when getting up/moving around at times Given LOC/syncope prior to admit, not on cardiac meds, will check ECHO for completeness -- see above. Cards consulted, not cardiac, demand from infection No CP reported (6) Obstructive sleep apnea syndrome: Patient has not been wearing her home CPAP and will refuse if ordered in the hospital -- see above under respiratory failure, she did use prior evening ENCOURAGED CONTINUED COMPLIANCE AT DISCHARGE/DIFFERENT MASK/ETC Quick decompensations to be expected if not using/low salt diet/fluid restriction/etc given ECHO (7) Stage 3b chronic kidney disease: Cr baseline appears 1.5-1.8 over the past year, 1.58 on admit Did have slight elevation after 20mg IV lasix on 07/06 up to 2 but could also be from combination dapto/zosyn for infection initially as above. Improved after Zosyn d/c Given dose retacrit inpatient based on iron studies -- follows with Shelton from [facility] and had been getting q1-2weeks based on stability. Can f/u for repeat administration at discharge Cr improved to 1.87 prior to discharge, to continue 20mg PO lasix at discharge Suspect low salt diet in hospital/fluid restriction helping -- encouraged continued compliance Strongly encouraged f/u Dr Vu to consider restart DAIJA/ARB for proteinuria/renal protection. She reports feeling better off this medication. Encouraged follow up as she has been without appt for years *While on Dapto, patient statin was held, resumed at discharge. CK wnl on check (8) Hypothyroidism: TSH 1.5 Continued Synthroid 112mcg daily (9) CAD S/P percutaneous coronary angioplasty: [facility] CAD s/p PCI with stent placement in December 2017, follows with Dr. Rodríguez as outpatient Previously on losartan 50mg, norvasc 5mg daily, since discontinued and reports she feels better off these No on BB, GI bleeding w/ Aspirin (although appears was from bleeding vessel in small bowels that was addressed in past) -- really should consider plavix (but she has even been refusing the lovenox injections) Mobilization status does put her at risk for blood clots, however she refused lovenox injections even inpatient -- can f/u with Dr Rodríguez for continued discussions. Remains on crestor 20mg daily -- placed on hold while on Dapto, resumed at ad joshua (10) Anemia: chronic, prior followed with Dr Bear, currently with [facility], Kelly Peoples Getting retacrit Qweekly for a while, recently backed to [id number] given stability Hgb had been 10-11, 9s on admit discussed with [facility], last administration last week per patient, and can check iron panel w/ AM labs/dose if needed -- dose provided for hgb 9.1 No melena/hematemesis/hematuria reported Hgb 9.8 Follow up Kelly Peoples at [facility] outpatient (11) Degenerative arthritis of right knee: reported R knee pain effective pain control w/ tramadol, uses at home. Denied any trauma w/ her syncopal episode, imaging w/ possible Indeterminate cortical lucency along the medial tibial plateau. This was not seen on prior examinations and a nondispl aced fracture is not excluded. A CT could be considered for further assessment. Ortho consulted -- see note Patient declined CT/size, and had been ambulating w/ PT yesterday and reported no increase from her chronic knee pain that she uses tramadol for WB as tolerated PT/OT consulted -- rehab recommended however patient declined and wanted home health therapy through [facility] where she gets her lymphedema therapy from. CM sent information for HH therapy Can f/u [facility] ortho as needed I certify that this patient is under my care and that I, or a physicians malt specifications control assistant working with me, had a face to-face encounter that meets the home health [id number] encounter requirements with this patient. The encounter with the patient was in whole, or in part, for the following medical condition, which is the primary reason for home health care (list medical condition): Right knee pain, ambulatory dysfunction I certify that, based on my findings, the following services are medically necessary home health services: therapy My clinical findings support the need for the above services because: ambulatory dysfunction, R knee pain/possible fx Further, I certify that my clinical findings support that this patient is homebound (i.e. absences from home require considerable and taxing effort and are for medical reasons or islam services or infrequently or of short duration when for other reasons) because: Certification for Home Health Services: Based on the above findings, I certify that this patient is confined to the home and needs intermittent usp care, physical therapy and/or speech therapy or continues to need occupational therapy. The patient is under my care, and I have initiated the establishment of the plan of care. This patient will be followed by a physician who will periodically review the plan of care. (12) Morbid obesity with BMI of 50.0-59.9, adult: BMI 52 Total Time Total Time Spent Total Time Spent (In Minutes): 60 Discharge Plan Discharge Items Patient Disposition: Home - Home Health Services Reason For Visit: CELLULITIS, UNCONTROLLED DIABETES Discharge Diagnosis: Cellulitis, MRSA Goals: You have been hospitalized for an acute medical problem. During your stay at [facility], we have made an effort to correct the problem that brought you to the hospital while keeping you as comfortable as possible. Medications were used to bring your condition under control and your discharge instructions will include directions for any medications you should take after leaving the hospital. Please make sure you see your Primary Care Provider as part of your follow up plan. Activity: As commented below Non-emergency contact: Primary Care Provider, Surgeon, Computer Systems Analyst and Tire Bagger Call non-emergency contact if: you have any medication questions, your symptoms worsen, your pain is not controlled and you have a fever Follow-up/Referrals: Ailyn Vu MD [Physician] - Kelly Peoples PA-C [Physician Epidemiologist] - Catracho Rodríguez DO [Physician] - Aiyana Asencio MD [Primary Care Provider] - (PLEASE CALL YOUR PRIMARY CARE PROVIDER TO SCHEDULE A DISCHARGE FOLLOW-UP APPOINTMENT WITHIN 7-10 DAYS.) Diet: Carb Consistent or DM2, Heart Healthy and Low Sodium (2gm) Addtl Attending Provider Instructions: You have been hospitalized and found to have abdominal cellulitis. Source likely from opening/drainage from belly button and culture showed MRSA. We have continued doxycycline based on sensitivities that should cover for this and this is twice daily for another 11 days to complete a 14 day course. You were seen by cardiology, and recommended to continue your usual lasix 20mg daily. As discussed, it is VERY important to limit salt and I would encourage you to throw away the salt shaker and use substitutes like Ms Dash to prevent fluid accumulation/worsening heart failure as indicated on your ultrasound of the hea rt. You should continue to use the CPAP with sleeping, and as discussed this has been a progression of heart failure which causes you to be at increased risk for acute decompensation. You should follow up with Dr Rodríguez from cardiology. You should further discuss possibly starting antiplatelet therapy with plavix given issues with aspirin and GI bleeding in the past. Please follow up with Dr Vu from nephrology as you have not been seen by kidney doctor in some time and they be able to provide additional assistance/addition of something like spironolactone as a diuretic but would want them to make that decision to prevent worsening kidney failure or elevated potassium levels that can cause further kidney damage and arrhythmias. We also checked imaging of your right knee which was concerning for possible fracture and I had orthopedics see you while in the hospital and you have been weight bearing as tolerated and declined further imaging and unfortunately not candidate for a brace, but I would recommend following up with your usual orthopedic surgeon for further discussion if this continues to bother you. Therapy has recommended usp for rehab, however you declined this and we are sending a referral to continue home health therapy through [facility] where you get your lymphedema care. We also checked iron studies and gave you a dose of procrit while in the hosp ital and you can follow up with Kelly Peoples for further dosing. Please follow up with your primary care in the next 7-10 days to monitor your progress. Please return to the ER with any worsening redness/fever, shortness of breath, or for any other symptoms concerning for you. Pending Studies at Discharge: Yes Studies:: Blood cultures - no growth to date Stand-Alone Forms: [facility], Smoking Cessation Medications and DC Order Prescriptions: New doxycycline hyclate 100 mg capsule 100 mg PO BID 11 Days Qty: 22 0RF nystatin 100,000 unit/gram Ointment 1 applic EXT BID Qty: 15 0RF Rx Instructions: apply twice daily to groin folds Continued levalbuterol HCl 0.63 mg/3 mL solution for nebulization 0.63 mg inhalation TID PRN (Reason: shortness of breath or wheezing) Qty: 270 3RF nitroglycerin 0.4 mg tablet, sublingual 0.4 mg sublingual Q5M PRN (Reason: Chest Pain) Rx Instructions: do not exceed 3 doses per episode levalbuterol tartrate [Xopenex HFA] 45 mcg/actuation HFA aerosol inhaler 2 inh INHALATION Q4H PRN (Reason: Shortness Of Breath Or Wheezing) Qty: 15 5RF insulin regular hum U-500 conc 500 unit/mL (3 mL) insulin pen See Rx Instructions .ROUTE .COMPLEX Rx Instructions: inject 60 units with breakfast and lunch, inject 60 units with dinner rosuvastatin 20 mg tablet 20 mg PO HS tramadol 50 mg tablet 50 mg PO Q6H PRN (Reason: Pain) montelukast 10 mg tablet 10 mg PO HS furosemide 20 mg tablet 20 mg PO DAILY levothyroxine 112 mcg tablet 112 mcg PO DAILY Procrit 2,000 unit/mL solution 2,000 unit subcut .Q2WKS PRN (Reason: LOW COUNT) Rx Instructions: Pt is unclear what the strength of her dose is, but knows that she receives it weekly. Patient stated that she is due for her dose, but has not received. (DME) Oxygen Home Liters Per Minute See Rx Instructions .Route Qty: 4 0RF Rx Instructions: As directed Discharge Orders: Discharge Order (Routine); Ordered 07/09/22 Ordered By: Kelly Arroyo Admission Data Admit Date/Time: 07/05/22 23:34 Attending Provider: Greg Castrejon Admit Provider: Isaias Johnson Primary Care Provider: Aiyana Asencio Other Providers: Isaias Johnson ; Catracho Rodríguez ; Lalo De Leon Other Interventions: Discharge Summary Assessment (RN) Last Done: 07/09/22 13:59 Supervising Physician Co-Signing Physician Notes Attending Attestation and Discharge Note: Pt seen/examined, chart reviewed, discharge care plan d/w HAYDEE Arroyo. I agree w/ the boone components of her documentation. 66yo female with morbid obesity - BMI>50 - who presented with abdominal wall cellulitis. Treated with IV abx throughout her stay. Culture from the umbilical region grew MRSA. Abd wall cellulitis improved/resolved with IV abx therapy, and will complete a course of oral doxycycline at discharge. She has had several episodes of MRSA infection in the past and I recommended she speak with her PCP about undergoing MRSA carriage eradication protocol. Other problems addressed while here included suspected right medial tibial plateau fracture (seen by ortho, CT or MRI recommended - patient refused additional work-up or management), volume status, etc. Discharge exam - gen - morbidly obese, NAD neck - no obvious JVD but large neck size makes assessment challenging heart - 2/6 systolic murmur RUSB, RRR lungs - CTA b/l abd - soft NT BS+ ext - lymphedema b/l legs, pulses 2+ b/l skin - abdominal wall erythema essentially resolved; no drainage from umbilicus Greg Castrejon MD Coding Level of Care Code D/C DAY MANAGEMENT >30 MINS Diagnoses Cellulitis of abdominal wall L03.311 Acute and chronic respiratory failure with hypoxia J96.21 Cellulitis L03.90 Diabetes E11.9; Z79.4 Diabetes mellitus complication status: without complication Diabetes mellitus buttermaker continuous churn insulin use: with buttermaker continuous churn use Diabetes mellitus type: type 2 Elevated troponin R77.8 Obstructive sleep apnea syndrome G47.33 Stage 3b chronic kidney disease N18.32 Hypothyroidism E03.9 CAD S/P percutaneous coronary angioplasty I25.10; Z98.61 Anemia D64.9 Degenerative arthritis of right knee M17.11 Morbid obesity with BMI of 50.0-59.9, adult E66.01; Z68.43
[2022-07-09] MEDS ORDERED: INSULIN HUMAN NPH SC SCH (16:30)
== END 2022-07-09 14:44 | disposition home health service (06) | DRG 602 ==
LOC: ED 20:15 → EDINP 23:34 → SUATTDRO 23:34 → 2W 07-06 01:42

== ENCOUNTER 2022-11-30 16:00 | Inpatient (IN) ==
[2022-11-30] MEDS ORDERED: PIPERACILLIN/TAZOBACTAM 4.5 GM/120 ML BAG IV ONE (16:19)
[2022-11-30] MEDS ORDERED: SODIUM CHLORIDE 0.9% 500 ML IV SCH (16:30)
[2022-11-30 17:28] LABS: Basophils # (auto) 0.05 K/uL (0-0.2); Basophils % (auto) 0.5 %; Eosinophils % (auto) 10.4 %; Hematocrit (blood only) 27.7 % (37.0-47.0); Hemoglobin 8.7 g/dl (12.0-16.0); Immature Granulocytes # (auto) 0.04 K/uL (0.01-0.20); Immature Granulocytes % (auto) 0.4 %; Lymphocytes % (auto) 16.9 %; Mean Corpuscular Hemoglobin 27.4 pg (25.0-34.0); Mean Corpuscular Hgb Conc 31.4 g/dL (32.0-36.0); Mean Corpuscular Volume 87.4 fL (80.0-100.0); Mean Platelet Volume 11.4 fL (9.4-12.4); Monocytes # (auto) 0.87 K/uL (0.11-0.59); Monocytes % (auto) 8.2 %; Neutrophils # (auto) 6.76 K/uL (1.40-6.50); Neutrophils % (auto) 63.6 %; Platelet Count 210 K/uL (130-400); RDW Coefficient of Variation 17.9 % (11.5-14.5); RDW Standard Deviation 57.5 fL (36.4-46.3); Red Blood Count 3.17 M/uL (4.20-5.40); White Blood Count 10.62 K/ul (4.8-10.8)
--- NOTE | 2022-11-30 17:30 | XRay Report ---
XR foot RT min 3V routine CLINICAL HISTORY: 5th prox phal ulcer eval osseous involv TECHNIQUE: 3 views of the right foot were obtained. Comparison: Comparison is made to right foot radiograph 09/19/2021 FINDINGS: No evidence of bony erosion is seen. Degenerative changes are seen. Soft tissue swelling is seen with an ulcer at the base of the fifth digit. IMPRESSION: No radiographic evidence of osteomyelitis. If clinical concern remains, MRI is a more sensitive modal ity. Soft tissue ulcer is noted at the base of the fifth digit. ACT 112: Negative or not required by law. Electronically signed by: John Jeong M.D. 11/30/2022 5:29 PM
[2022-11-30] MEDS: DAPTOmycin 500 MG in SYRINGE 0 ML IV SCH (17:32)
[2022-11-30 17:48] LABS: Albumin Level 3.3 gm/dl (3.4-5.0); BUN Creatinine Ratio 18.8 (10-20); Bilirubin Direct 0.1 mg/dl (0-0.2); Bilirubin,Total 0.6 mg/dl (0.2-1.0); C Reactive Protein 8.61 mg/dl (0-0.5); Calcium 8.8 mg/dl (8.6-10.3); Creatinine Clr Calc Pharmacy 47.5 ml/min; Est GFR (African American) 40.1 ml/min; Est GFR (Non-African American) 34.6 ml/min; INR 1.2 (0.9-1.1); Magnesium 2.1 mg/dl (1.7-2.4); Potassium 3.3 mmol/L (3.5-5.1); Total Protein 7.7 gm/dl (6.0-8.3)
--- NOTE | 2022-11-30 17:48 | Emergency Department Note ---
Impression & Plan Diabetic ulcer of right foot associated with diabetes mellitus due to underlying condition, with fat layer exposed, Cellulitis of fifth toe of right foot, Type 2 diabetes mellitus, History of MRSA infection ED Provider Note NAME: GREY LOU AGE: 67 SEX: F ARRIVES VIA: Ambulance INFORMANT: Patient ED PROVIDER(S): Hector Lobato MD CHIEF COMPLAINT: Foot ulcer/cellulitis, referred. PLAN: Disposition: Admit MEDICAL DECISION MAKING: The patient is a pleasant 67-year-old woman with a past medical history of chronic respiratory failure with hypoxia on home oxygen, CAD, CkD, diabetes, GERD, hypertension, chronic lymphedema, morbid obesity, OHS, history of MRSA cellulitis who presents to the emergency department for evaluation of redness, swelling, pain related to a recently developing proximal phalanx foot ulcer that the patient reports developed over the past couple of days. The patient had home physical therapy that came to the house today and recommended immediate evaluation due to rapid progression. Patient denies fevers, chills, cough, co ngestion, GI or symptoms. She reports the foot is painful but has not been able to walk on it. On arrival the patient is no distress, afebrile stable vital signs. She has chronic bilateral lower extremity lymphedema. There is a 2.5 cm lateral forefoot ulcer at the base of the fifth proximal phalanx with erythema extending across the dorsal and plantar aspect of the forefoot to the second phalanx. There is no crepitus. EKG without overt acute ischemia. WBC and platelets within normal limits. H/H approximate to prior range of values. Chemistry without metabolic acidosis. Creatinine 1.5, similar to prior values in setting of CKD. Glucose 43 with improvement following oral glucose. Patient was asymptomatic. Potassium 3.3 and electrolytes otherwise without significant abnormality. ESR and CRP are elevated at 84 and 8.6, respectively. Lactic acid 1.0, within normal limits. Procalcitonin is not elevated. UA without convincing evidence of infection. COVID-19 RNA, RY test was negative. Plain film of the right foot without osseous involvement. Patient was treated empirically with Zosyn and daptomycin. She agrees with plan for admission for further management. Case was d/w Dr. Stahl, [facility] hospitalist who will evaluate the patient for admission. Triage Nursing notes reviewed and agree them. Prior/outside medical records reviewed Vital Signs: reviewed Differential diagnosis: Cellulitis, abscess, MRSA infection, DVT, necrotizing fasciitis, dermatitis, drug eruption, allergic reaction, as well as other pathologies. ER treatment provided: See below. Diagnostics interpreted by me: ECG: Normal sinus rhythm, 87 bpm, no ectopy, no overt ST elevation or depression, QTc 445, QRS 96. Cardiac Monitoring: An order for continuous cardiac monitoring was placed and demonstrated Normal sinus rhythm, 87 bpm, no ectopy Laboratory studies: See below Imaging studies: See below Consultation(s): Case was d/w Dr. Stahl, [facility] hospitalist who will evaluate the patient for admission. HPI: The patient is a pleasant 67-year-old woman with a past medical history of chronic respiratory failure with hypoxia on home oxygen, CAD, CkD, diabetes, GERD, hypertension, chronic lymphedema, morbid obesity, OHS, history of MRSA cellulitis who presents to the emergency department for evaluation of redness, swelling, pain related to a recently developing proximal phalanx foot ulcer that the patient reports developed over the past couple of days. The patient had home physical therapy that came to the house today and recommended immediate evaluation due to rapid progression. Patient denies fevers, chills, cough, congestion, GI or symptoms. She reports the foot is painful but has not been able to walk on it. ROS: See above HPI for pertinent positives & negatives. A total of 10 systems reviewed and were otherwise negative. VITALS:See Below PHYSICAL EXAMINATION: GENERAL: Awake, alert, fatigued-appearing, in no distress HENT: Normocephalic, atraumatic. Oropharynx unremarkable. EYES: Normal conjunctiva. Sclera non-icteric. NECK: Supple. No nuchal rigidity. FROM. No JVD. RESPIRATORY: Clear to auscultation. CARDIAC: Regular rate, normal rhythm. Extremities warm and well perfused. Pulses equal. ABDOMEN: Soft, non-distended. No tenderness to palpation. No rebound or guarding. No masses. RECTAL: Deferred. MUSCULOSKELETAL: Chest examination reveals no tenderness. The back is symmetrical on inspection without obvious abnormality. There is no CVA tenderness to palpation. No joint edema. LOWER EXTREMITIES: Chronic bilateral lower extremity lymphedema. There is a 2.5 cm lateral forefoot ulcer at the base of the fifth proximal phalanx with erythema extending across the dorsal and plantar aspect of the forefoot to the second phalanx. There is no crepitus. NEURO: Normal sensorium. No sensory or motor deficits noted. SKIN: No rash or jaundice noted. ED COURSE: Critical Care: I have personally spent greater than 35 minutes of critical care time in the direct management of this patient. This includes bedside care, interpretation of diagnostic studies, and testing, discussion with consultants, patient, and family members, and other required patient management activities. This 35 minutes is in excess of all separately billable procedures. Hector Lobato MD Past Med/Surg History Medical History Acute respiratory failure with hypoxia Anemia ARDS (adult respiratory distress syndrome) Breathlessness CAD S/P percutaneous coronary angioplasty Chest pain CHF (congestive heart failure) Chronic respiratory failure 1 to 2 L oxygen Coronary artery disease COVID-19 Diabetes Diarrhea Diverticulitis Dyspnea GERD (gastroesophageal reflux disease) Hypertension Hypothyroidism Lymphedema Lymphedema of lower extremity Morbid obesity Morbid obesity due to excess calories Obesity hypoventilation syndrome Obstructive sleep apnea syndrome Proteinuria Secondary pulmonary hypertension Shortness of breath SOB (shortness of breath) Stage 3b chronic kidney disease Stage 3b chronic kidney disease Thyroid cancer Vitamin D deficiency Surgical History H/O endoscopy H/O partial thyroidectomy History of colonoscopy History of percutaneous coronary intervention Family History Other Diabetes Heart disease No pertinent family history Social History Smoking Status: Never smoker Second Hand Exposure: No; Do You Dip or Chew Tobacco: No; Tobacco Cessation Education Requested by Patient: No Hx Alcohol Use: No Hx Substance Use: No Preferred Language: Comoran 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 Ability: Effective Organ Assembler Required: No Beliefs That Will Affect Care: None marital status: Current Living Situation: Spouse Current Living Situation Comment: current occupational status: disabled Other Information That Helps Us Care for You: No Feels Safe at Home: Yes Safety Concerns: Feels Safe At This Time Diet: other Diet Comment: low carb high protein "like a gastirc bypass diet" states seeing nutrionist caffeine: Yes during the past year weight has: increased > 10 lbs Physical Activity Frequency: Does not Exercise Do you think of yourself as: straight/heterosexual Gender Identity: Female Assistive Devices: CPAP, Oxygen - Continuous and Walker Assistive Devices Comment: CPAP at night, 4L NC at night Allergies Allergies Allergy/AdvReac Type Severity Reaction Status Date / Time Iodinated Contrast Media Allergy Severe Hives and Verified 11/30/22 17:34 kidney complications iodine Allergy Severe Hives and Verified 11/30/22 17:34 kidney complications shellfish derived Allergy Severe Anaphylaxis Verified 11/30/22 17:34 /Hives sulfite Allergy Severe HIVES AND Verified 11/30/22 17:34 THROAT CLOSES Home Meds Home Medications Medication Instructions Recorded Confirmed insulin regular hum U-500 conc 500 See Rx Instructions .Route .COMPLEX 08/16/18 11/30/22 unit/mL(3 mL) subcut pen rosuvastatin 20 mg tablet 20 mg PO HS 02/26/19 11/30/22 tramadol 50 mg tablet 50 mg PO Q6H PRN Pain 05/17/20 11/30/22 montelukast 10 mg tablet 10 mg PO HS 09/27/20 11/30/22 nitroglycerin 0.4 mg sublingual 0.4 mg sublingual Q5M PRN Chest 11/30/20 11/30/22 tablet Pain epoetin milo 2,000 unit/mL 0 unit subcut DIRECTED PRN LOW 08/26/21 11/30/22 injection solution (Procrit) COUNT furosemide 20 mg tablet 20 mg PO DAILY 07/05/22 11/30/22 levothyroxine 112 mcg tablet 112 mcg PO DAILY 07/05/22 11/30/22 Previous Rx's Medication Instructions Recorded levalbuterol tartrate 45 2 inh inhalation Q4H PRN Shortness 11/30/20 mcg/actuation aerosol inhaler Of Breath Or Wheezing #15 grams (Xopenex HFA) levalbuterol HCl 0.63 mg/3 mL 0.63 mg (3 mL) inhalation TID PRN 01/31/21 solution for nebulization shortness of breath or wheezing #270 mL Oxygen Home #4 L 06/17/21 nystatin 100,000 unit/gram topical 1 applic EXT BID #15 grams 07/09/22 ointment BiPap Machine #1 ea 11/27/22 Results & Data (ED) Vital Signs Vital Signs - 24 hr 11/30/22 16:11 11/30/22 16:35 11/30/22 16:15 Temperature 37.2 C Temperature Source Oral Pulse Rate 98 H 91 H Pulse Rate [Right Finger] 88 Respiratory Rate 24 16 Respiratory Effort / Characteristics Non-Labored Respiratory Depth Normal Blood Pressure 179/59 H Blood Pressure [Right Arm] 105/58 L Blood Pressure Mean 99 Blood Pressure Mean [Right Arm] 73 Pulse Oximetry 99 100 Oxygen Delivery Method Nasal Cannula Nasal Cannula Oxygen Flow Rate 4 Sepsis Recent Fever Within 48 Hours No Sepsis New/Unexplained Change in Mental Status N/A Sepsis Action Taken by Nursing No Action Required 11/30/22 16:49 Temperature Temperature Source Pulse Rate Pulse Rate [Right Finger] Respiratory Rate Respiratory Effort / Characteristics Respiratory Depth Blood Pressure Blood Pressure [Right Arm] Blood Pressure Mean Blood Pressure Mean [Right Arm] Pulse Oximetry 99 Oxygen Delivery Method Nasal Cannula Oxygen Flow Rate 4 Sepsis Recent Fever Within 48 Hours Sepsis New/Unexplained Change in Mental Status Sepsis Action Taken by Nursing Laboratory Data Attestation: I reviewed the patient's lab results. 11/30/22 16:52 11/30/22 16:52 Lab Results 11/30/22 11/30/22 11/30/22 Range/Units 16:26 16:52 16:52 WBC 10.62 (4.8-10.8) K/ul RBC 3.17 L (4.20-5.40) M/uL Hgb 8.7 L (12.0-16.0) g/dl Hct 27.7 L (37.0-47.0) % MCV 87.4 (80.0-100.0) fL MCH 27.4 (25.0-34.0) pg MCHC 31.4 L (32.0-36.0) g/dL RDW Std Deviation 57.5 H (36.4-46.3) fL RDW Coeff of Cherelle 17.9 H (11.5-14.5) % Plt Count 210 (130-400) K/uL MPV 11.4 (9.4-12.4) fL Immature Gran % (Auto) 0.4 % Neut % (Auto) 63.6 % Lymph % (Auto) 16.9 % [place] % (Auto) 8.2 % Eos % (Auto) 10.4 % Baso % (Auto) 0.5 % Neut # (Auto) 6.76 H (1.40-6.50) K/uL Lymph # (Auto) 1.80 (1.2-3.4) K/uL [place] # (Auto) 0.87 H (0.11-0.59) K/uL Eos # (Auto) 1.10 H (0-0.50) K/uL Baso # (Auto) 0.05 (0-0.2) K/uL Immature Gran # (Auto) 0.04 (0.01-0.20) K/uL ESR (0-30) mm/hr PT 13.0 H (9.0-12.0) Seconds INR 1.2 H (0.9-1.1) Sodium (136-145) mmol/L Potassium (3.5-5.1) mmol/L Chloride (98-107) mmol/L Carbon Dioxide (21-32) mmol/L Anion Gap (3-11) BUN (6-23) mg/dl Creatinine (0.6-1.2) mg/dl Est Cr Clr Drug Dosing ml/min Est GFR ( Amer) ml/min Est GFR (Non-Af Amer) ml/min BUN/Creatinine Ratio (10-20) Glucose (70-99(Fasting)) mg/dl POC Glucose (70-99) mg/dl Lactate (0.4-2.0) mmol/L Calcium (8.6-10.3) mg/dl Magnesium (1.7-2.4) mg/dl Total Bilirubin (0.2-1.0) mg/dl Direct Bilirubin (0-0.2) mg/dl AST (13-39) U/L ALT (7-52) U/L Alkaline Phosphatase (34-104) U/L C-Reactive Protein (0-0.5) mg/dl Total Protein (6.0-8.3) gm/dl Albumin (3.4-5.0) gm/dl Procalcitonin (0-0.5) ng/ml SARS-CoV-2, RNA, NAAT NEGATIVE (NEGATIVE) 11/30/22 11/30/22 11/30/22 Range/Units 16:52 16:52 16:52 WBC (4.8-10.8) K/ul RBC (4.20-5.40) M/uL Hgb (12.0-16.0) g/dl Hct (37.0-47.0) % MCV (80.0-100.0) fL MCH (25.0-34.0) pg MCHC (32.0-36.0) g/dL RDW Std Deviation (36.4-46.3) fL RDW Coeff of Cherelle (11.5-14.5) % Plt Count (130-400) K/uL MPV (9.4-12.4) fL Immature Gran % (Auto) % Neut % (Auto) % Lymph % (Auto) % [place] % (Auto) % Eos % (Auto) % Baso % (Auto) % Neut # (Auto) (1.40-6.50) K/uL Lymph # (Auto) (1.2-3.4) K/uL [place] # (Auto) (0.11-0.59) K/uL Eos # (Auto) (0-0.50) K/uL Baso # (Auto) (0-0.2) K/uL Immature Gran # (Auto) (0.01-0.20) K/uL ESR (0-30) mm/hr PT (9.0-12.0) Seconds INR (0.9-1.1) Sodium 136 (136-145) mmol/L Potassium 3.3 L (3.5-5.1) mmol/L Chloride 99 (98-107) mmol/L Carbon Dioxide 29 (21-32) mmol/L Anion Gap 8 (3-11) BUN 29 H (6-23) mg/dl Creatinine 1.54 H (0.6-1.2) mg/dl Est Cr Clr Drug Dosing 47.5 ml/min Est GFR ( Amer) 40.1 ml/min Est GFR (Non-Af Amer) 34.6 ml/min BUN/Creatinine Ratio 18.8 (10-20) Glucose 43 L* (70-99(Fasting)) mg/dl POC Glucose (70-99) mg/dl Lactate 1.0 (0.4-2.0) mmol/L Calcium 8.8 (8.6-10.3) mg/dl Magnesium 2.1 (1.7-2.4) mg/dl Total Bilirubin 0.6 (0.2-1.0) mg/dl Direct Bilirubin 0.1 (0-0.2) mg/dl AST 13 (13-39) U/L ALT 7 (7-52) U/L Alkaline Phosphatase 76 (34-104) U/L C-Reactive Protein 8.61 H (0-0.5) mg/dl Total Protein 7.7 (6.0-8.3) gm/dl Albumin 3.3 L (3.4-5.0) gm/dl Procalcitonin 0.08 (0-0.5) ng/ml SARS-CoV-2, RNA, NAAT (NEGATIVE) 11/30/22 11/30/22 11/30/22 Range/Units 16:52 18:02 18:54 WBC (4.8-10.8) K/ul RBC (4.20-5.40) M/uL Hgb (12.0-16.0) g/dl Hct (37.0-47.0) % MCV (80.0-100.0) fL MCH (25.0-34.0) pg MCHC (32.0-36.0) g/dL RDW Std Deviation (36.4-46.3) fL RDW Coeff of Cherelle (11.5-14.5) % Plt Count (130-400) K/uL MPV (9.4-12.4) fL Immature Gran % (Auto) % Neut % (Auto) % Lymph % (Auto) % [place] % (Auto) % Eos % (Auto) % Baso % (Auto) % Neut # (Auto) (1.40-6.50) K/uL Lymph # (Auto) (1.2-3.4) K/uL [place] # (Auto) (0.11-0.59) K/uL Eos # (Auto) (0-0.50) K/uL Baso # (Auto) (0-0.2) K/uL Immature Gran # (Auto) (0.01-0.20) K/uL ESR 84 H (0-30) mm/hr PT (9.0-12.0) Seconds INR (0.9-1.1) Sodium (136-145) mmol/L Potassium (3.5-5.1) mmol/L Chloride (98-107) mmol/L Carbon Dioxide (21-32) mmol/L Anion Gap (3-11) BUN (6-23) mg/dl Creatinine (0.6-1.2) mg/dl Est Cr Clr Drug Dosing ml/min Est GFR ( Amer) ml/min Est GFR (Non-Af Amer) ml/min BUN/Creatinine Ratio (10-20) Glucose (70-99(Fasting)) mg/dl POC Glucose 48 L* 83 (70-99) mg/dl Lactate (0.4-2.0) mmol/L Calcium (8.6-10.3) mg/dl Magnesium (1.7-2.4) mg/dl Total Bilirubin (0.2-1.0) mg/dl Direct Bilirubin (0-0.2) mg/dl AST (13-39) U/L ALT (7-52) U/L Alkaline Phosphatase (34-104) U/L C-Reactive Protein (0-0.5) mg/dl Total Protein (6.0-8.3) gm/dl Albumin (3.4-5.0) gm/dl Procalcitonin (0-0.5) ng/ml SARS-CoV-2, RNA, NAAT (NEGATIVE) Administered Medications Enoxaparin Sodium (Enoxaparin Inj 40 Mg/0.4 Ml Syr) 40 mg SQ Q12H LEONA Stop: 12/30/22 20:59 Last Admin: 11/30/22 21:45 Dose: Not Given Documented By: NANCY Daptomycin 500 mg/ Syringe 10 mls @ 5 mls/min IV Q24H LEONA; Protocol Stop: 12/02/22 16:29 Last Admin: 11/30/22 17:32 Dose: 5 mls/min Documented By: SAVANA Montelukast Sodium (Montelukast Sodium 10 Mg Tablet) 10 mg PO HS LEONA Stop: 12/30/22 20:59 Last Admin: 11/30/22 21:42 Dose: 10 mg Documented By: KSDylan Tramadol HCl (Tramadol Hcl 50 Mg Tablet) 50 mg PO Q6H PRN PRN Reason: Pain Stop: 12/30/22 18:49 Last Admin: 11/30/22 21:41 Dose: 50 mg Documented By: KSDylan Discontinued Medications Sodium Chloride (Nss) 500 mls @ 125 mls/hr IV .Q4H LEONA Stop: 12/30/22 16:29 Last Infusion: 11/30/22 21:00 Dose: 0 mls/hr Documented By: Admin: 11/30/22 17:37 Dose: 125 mls/hr Documented By: SAVANA Piperacillin Sod/Tazobactam Sod (Zosyn) 4.5 gm in 120 mls @ 240 mls/hr IV NOW ONE Stop: 11/30/22 16:48 Last Infusion: 11/30/22 17:31 Dose: 0 mls/hr Documented By: Admin: 11/30/22 16:53 Dose: 240 mls/hr Documented By: SAVANA Insulin Aspart (Insulin Aspart Per Unit Charge) 0 units SC ACHS LEONA Stop: 12/30/22 20:59 Last Admin: 11/30/22 21:37 Dose: Not Given Documented By: NANCY Potassium Chloride (Potassium Chloride Crtab 20 Meq Tabcr) 40 meq PO NOW STA Stop: 11/30/22 21:20 Last Admin: 11/30/22 21:42 Dose: 40 meq Documented By: NANCY Imaging Data Radiologist's Impression: Foot X-Ray 11/30/22 16:19 XR foot RT min 3V routine CLINICAL HISTORY: 5th prox phal ulcer eval osseous involv TECHNIQUE: 3 views of the right foot were obtained. Comparison: Comparison is made to right foot radiograph 09/19/2021 FINDINGS: No evidence of bony erosion is seen. Degenerative changes are seen. Soft tissue swelling is seen with an ulcer at the base of the fifth digit. IMPRESSION: No radiographic evidence of osteomyelitis. If clinical concern remains, MRI is a more sensitive modality. Soft tissue ulcer is noted at the base of the fifth digit. ACT 112: Negative or not required by law. Electronically signed by: John Jeong M.D. 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
[2022-11-30] MEDS ORDERED: CARBOHYDRATES FOR HYPOGLYCEMIA PO PRN ×2 (18:22→20:59)
[2022-11-30] MEDS ORDERED: GLUCOSE 10 TAB/TUBE PO PRN ×2 (18:22→20:59)
[2022-11-30] MEDS ORDERED: GLUCAGON FOR INJ 1 MG VIAL SQ PRN ×2 (18:22→20:59)
[2022-11-30] MEDS ORDERED: DEXTROSE 50% 50 ML SYRINGE IV PRN ×2 (18:22→20:59)
[2022-11-30] MEDS ORDERED: GLUCOSE 40% GEL 15 GM TUBE PO PRN ×2 (18:22→20:59)
--- NOTE | 2022-11-30 18:34 | History & Physical Report ---
Date of Service November 30, 2022 Assessment & Plan (1) Diabetic ulcer of right foot associated with diabetes mellitus due to underlying condition, with fat layer exposed: Plan: 67yo female with a history of IDDM2, HTN, HLD, CAD, CKD, hypothyroidism, STEWART (on CPAP), OHS, and chronic respiratory failure (on 4L supplemental oxygen at home) presents with a two-day history of right 5th toe redness, swelling, and pain which has worsened over the past day. Right fifth toe ulcer, cellulitis Continue daptomycin/zosyn for now Wound culture pending, blood cultures pending Orthopedics consulted, wound care nurse consulted Arterial RLE ultrasound ordered NPO at midnight pending possible debridement Trend CBC DM2 HbA1c 9.9% (06/2022), repeat pending Patient's home regimen held on admission Continue BSG checks, sliding-scale insulin, hypoglycemic protocol Consider adding basal once BSG has been stable Anemia Chronic, though currently slightly below baseline Low suspicion for blood loss Iron studies, B12, B6 levels ordered Trend CBC Hypokalemia Potassium 3.3 on admission KCl 40mEq PO (x1) ordered Trend daily BMP, magnesium HTN: controlled at this time, continue to monitor HLD: holding home crestor while on daptomycin CKD: avoid nephrotoxins, holding IVF for now given LE edema Hypothyroidism: continue home regimen STEWART/OHS: CPAP qhs Chronic respiratory failure: continue supplemental oxygen as-needed FEN: heart healthy DM2 diet, NPO midnight pending possible debridement Code status: DNI (chest compressions OK, defibrillation OK) DVT ppx: lovenox Consults: orthopedics, wound care nurse PT/OT: ordered Dispo: med/surg (2) Diabetes mellitus type 2 in obese: (3) Acute and chronic respiratory failure with hypoxia: (4) Anemia: (5) CAD S/P percutaneous coronary angioplasty: (6) Hypertension: (7) Hypokalemia: (8) Hypothyroidism: (9) Obesity hypoventilation syndrome: (10) Obstructive sleep apnea syndrome: (11) Morbid obesity with BMI of 50.0-59.9, adult: (12) Stage 3b chronic kidney disease: History of Present Illness Primary Care Provider: Aiyana Asencio MD 67yo female with a history of IDDM2, HTN, HLD, CAD, CKD, hypothyroidism, STEWART (on CPAP), OHS, and chronic respiratory failure (on 4L supplemental oxygen at home) presents with a two-day history of right 5th toe redness, swelling, and pain which has worsened over the past day. - patient first noticed right 5th toe pain/swelling/redness yesterday - patient has a home physical therapist who noted that there was an open ulceration at the right 5th toe today, concerning for rapid progression of a diabetic foot ulcer - patient has had pain but is still able to bear weight - reports her BSGs have been between 90 and 140 over the past few days Patient denies fever, chills, headache, CP, palpitations, SOB, abdominal pain, nausea, vomiting, dysuria, hematochezia, melena, back pain, lightheadedness, dizziness, numbness, tingling, weakness, or other symptoms. Denies recent illness and recent travel. Upon arrival, vitals were notable for elevated BP (170s/90s, has since improved to 105/58); no tachycardia, no tachypnea, patient afebrile, spO2 adequate on home 4L NC. Initial labs were notable for anemia (8.7), mild hypokalemia (3.3), elevated creatinine (1.54, baseline ~1.6), elevated ESR (84), and elevated CRP (8.6); no leukocytosis, platelets wnl, no electrolyte abnormalities, LFTs wnl, Tbili not elevated, covid PCR negative. In the ED, patient was started on dapto/zosyn and NSS@125mL/hr. Patient did have an episode of hypoglycemia in the ED (bsg fell to 40s) though this improved with soda and a sandwich; patient is feeling much better. EKG: NSR, no overt ischemic change XR right foot: no radiographic evidence of osteomyelitis; soft tissue ulcer is noted at the base of the fifth digit Surrogate decision-maker in case of an emergency: John Molina (cell: [phone]) Allergies Allergy/AdvReac Type Severity Reaction Status Date / Time Iodinated Contrast Media Allergy Severe Hives and Verified 11/30/22 17:34 kidney complications iodine Allergy Severe Hives and Verified 11/30/22 17:34 kidney complications shellfish derived Allergy Severe Anaphylaxis Verified 11/30/22 17:34 /Hives sulfite Allergy Severe HIVES AND Verified 11/30/22 17:34 THROAT CLOSES Home Medications Medication Instructions Recorded Confirmed Type insulin regular hum U-500 conc 500 See Rx Instructions .Route .COMPLEX 08/16/18 11/30/22 History unit/mL(3 mL) subcut pen rosuvastatin 20 mg tablet 20 mg PO HS 02/26/19 11/30/22 History tramadol 50 mg tablet 50 mg PO Q6H PRN Pain 05/17/20 11/30/22 History montelukast 10 mg tablet 10 mg PO HS 09/27/20 11/30/22 History levalbuterol tartrate 45 2 inh inhalation Q4H PRN Shortness 11/30/20 11/30/22 Rx mcg/actuation aerosol inhaler Of Breath Or Wheezing #15 grams (Xopenex HFA) nitroglycerin 0.4 mg sublingual 0.4 mg sublingual Q5M PRN Chest 11/30/20 11/30/22 History tablet Pain levalbuterol HCl 0.63 mg/3 mL 0.63 mg (3 mL) inhalation TID PRN 01/31/21 11/30/22 Rx solution for nebulization shortness of breath or wheezing #270 mL Oxygen Home #4 L 06/17/21 08/26/21 Rx epoetin milo 2,000 unit/mL 0 unit subcut DIRECTED PRN LOW 08/26/21 11/30/22 History injection solution (Procrit) COUNT furosemide 20 mg tablet 20 mg PO DAILY 07/05/22 11/30/22 History levothyroxine 112 mcg tablet 112 mcg PO DAILY 07/05/22 11/30/22 History nystatin 100,000 unit/gram topical 1 applic EXT BID #15 grams 07/09/22 11/30/22 Rx ointment BiPap Machine #1 ea 11/27/22 Rx Past Med/Surg History Medical History Acute respiratory failure with hypoxia Anemia ARDS (adult respiratory distress syndrome) Breathlessness CAD S/P percutaneous coronary angioplasty Chest pain CHF (congestive heart failure) Chronic respiratory failure 1 to 2 L oxygen Coronary artery disease COVID-19 Diabetes Diarrhea Diverticulitis Dyspnea GERD (gastroesophageal reflux disease) Hypertension Hypothyroidism Lymphedema Lymphedema of lower extremity Morbid obesity Morbid obesity due to excess calories Obesity hypoventilation syndrome Obstructive sleep apnea syndrome Proteinuria Secondary pulmonary hypertension Shortness of breath SOB (shortness of breath) Stage 3b chronic kidney disease Stage 3b chronic kidney disease Thyroid cancer Vitamin D deficiency Surgical History H/O endoscopy H/O partial thyroidectomy History of colonoscopy History of percutaneous coronary intervention Family History Other Diabetes Heart disease No pertinent family history Social History Smoking Status: Never smoker Second Hand Exposure: No; Do You Dip or Chew Tobacco: No; Tobacco Cessation Education Requested by Patient: No Hx Alcohol Use: No Hx Substance Use: No Preferred Language: Salvadorean 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 Ability: Effective Bottom Liquor Attendant Required: No Beliefs That Will Affect Care: None marital status: Current Living Situation: Spouse Current Living Situation Comment: current occupational status: disabled Other Information That Helps Us Care for You: No Feels Safe at Home: Yes Safety Concerns: Feels Safe At This Time Diet: other Diet Comment: low carb high protein "like a gastirc bypass diet" states seeing nutrionist caffeine: Yes during the past year weight has: increased > 10 lbs Physical Activity Frequency: Does not Exercise Do you think of yourself as: straight/heterosexual Gender Identity: Female Assistive Devices: CPAP, Oxygen - Continuous and Walker Assistive Devices Comment: CPAP at night, 4L NC at night Review of Systems Review of Systems: See HPI Physical Exam Physical Exam: Constitutional: well-appearing, no acute distress HEENT: nasal cannula in place CV: heart sounds distant, extremities well-perfused, 2+ pitting LE edema bilaterally Resp: breath sounds distant MSK: right dorsal pedal pulse palpable, right foot sensation intact throughout Skin: subcentimeter open ulcer on lateral aspect of right 5th toe with surrounding erythema and edema, mildly tender to palpation, purulent/bloody exudate appreciated Neuro: alert, oriented, no focal neurologic deficit appreciated Results & Data Results & Data Vital Signs (Past 12 Hours) Vital Signs Temp Pulse Pulse Resp BP BP Pulse Ox 11/30/22 16:49 99 11/30/22 16:15 91 H 11/30/22 16:35 88 16 105/58 L 100 11/30/22 16:11 37.2 C 98 H 24 179/59 H 99 O2 Del Method O2 Flow Rate 11/30/22 16:49 Nasal Cannula 4 11/30/22 16:15 11/30/22 16:35 Nasal Cannula 11/30/22 16:11 Nasal Cannula 4 Supervising Physician Co-Signing Physician Notes I personally saw and examined the patient. I verified all boone points and agree with resident physician Dr Marco A Graf, with the following exceptions and/or additions: 67 year old female with lymphedema and T2DM presents to the ER due to diabetic foot ulcer with surrounding erythema for the last 2 days. No fever or chills. O/E A&Ox3, HS RRR, no murmurs, Chest reduced breath sounds throughout without rhonchi or crackles, Abdo SNT, b/l chronic lymphedema changes with 2+ pitting edema and venous stasis erythema. 3cm unstageable ulcer on lateral aspect of distal MT with cavity and pus, surrounding erythema to mid foot (area marked) A/P Diabetic foot ulcer (unstageable) - Follow up blood and surface wound cultures. Daptomycin (rosuvastatin on hold while on daptomycin) and Zosyn. Consult ortho for debridement. US arterial doppler. Hypoglycemia with T2DM - Hypoglycemic protocol glucose, no need for D5W at this stage, will improve with holding basal insulin. Agree with holding basal dosing for now. Novolog: --Goal BSG Range: Low 100mg/dL, High 180mg/dL --Correction Factor: 25mg/dL/unit --Carbohydrate ratio = 10g/unit --BSGs ACHS if eating, q6h if npo Chronic hypoxic respiratory failure - currently on baseline 4LPM O2. Normocytic anemia - iron studies, pending this discuss with hematology regarding Hgb count for her EPO Resident Activity Tracking Resident Involvement: Resident Care Provided Care Provided: Adult Hospital Medicine (6) Hypertension Hypertension type: essential hypertension Qualified Code(s): I10 - Essential (primary) hypertension
[2022-11-30] MEDS ORDERED: LEVALBUTEROL HCL 0.63 MG/3 ML NEB INH PRN (18:50)
--- NOTE | 2022-11-30 20:45 | Ultrasound Report ---
RIGHT LOWER EXTREMITY ARTERIAL DOPPLER ULTRASOUND CLINICAL HISTORY: Right foot ulcer. COMPARISON STUDY: No previous studies for comparison. TECHNIQUE: Color and duplex Doppler sonography of the arterial system of the right lower extremity wa s performed. FINDINGS: This exam is compromised by suboptimal penetration. There is biphasic flow within the right common femoral artery. A mildly elevated velocity within the right profunda femoris of 243 cm/s is n oted. There is biphasic flow within the proximal right superficial femoral artery. The distal right s uperficial femoral artery is not well visualized due to suboptimal penetration. Therefore, patency of the vessel cannot be confirmed. However, there is monophasic flow within the right popliteal, anteri or tibial, posterior tibial, dorsalis pedis and peroneal arteries. IMPRESSION: 1. Technically difficult study due to suboptimal penetration. Flow within the distal right superfici al femoral artery is not well visualized. This is likely technical. Vessel occlusion with distal rocco nstitution could appear similar. 2. Predominantly monophasic flow within the right calf vessels. ACT 112: Negative or not required by law. Electronically signed by: Mack Soto M.D. 11/30/2022 8:43 PM
[2022-11-30] MEDS ORDERED: ACETAMINOPHEN 325 MG TAB PO PRN (20:59)
[2022-11-30] MEDS ORDERED: INSULIN ASPART PER UNIT CHARGE SC SCH (21:00)
[2022-11-30] MEDS ORDERED: POTASSIUM CHLORIDE CRTAB 20 MEQ TABCR PO STA (21:19)
[2022-11-30] MEDS: traMADol HCL 50 MG TABLET PO PRN (21:41)
[2022-11-30] MEDS: MONTELUKAST SODIUM 10 MG TABLET PO SCH (21:42)
[2022-11-30] MEDS: ENOXAPARIN INJ 40 MG/0.4 ML SYR SQ SCH (21:45)
[2022-11-30 21:51] LABS: Appearance Urine Clear (Clear); Bacteria Urine Automated Negative (Negative); Bilirubin Urine Negative (Negative); Blood Urine Trace (Negative); Cast Urine Automated 0 /lpf (0-5); Color Urine Yellow; Glucose Urine UA Negative (Negative); Ketones Urine Negative (Negative); Leukocyte Esterase Urine Negative (Negative); Nitrite Urine Negative (Negative); Protein Urine 1+ (Negative); RBC Urine Automated 0-4 /hpf (0-4); Specific Gravity Urine 1.009 (1.000-1.030); Urobilinogen Urine Negative (Negative)
[2022-12-01] MEDS ORDERED: Nursing to Pharmacy Communication SCH (04:00)
[2022-12-01] MEDS: LEVOTHYROXINE SODIUM 112 MCG TABLET PO SCH (05:52)
[2022-12-01] MEDS: traMADol HCL 50 MG TABLET PO PRN ×2 (05:52→21:23)
[2022-12-01] MEDS: INSULIN ASPART PER UNIT CHARGE SC SCH ×4 (05:56→21:24)
--- NOTE | 2022-12-01 07:27 | Hospitalist Progress Note ---
Date of Service December 01, 2022 Assessment & Plan (1) Diabetic ulcer of right foot associated with diabetes mellitus due to underlying condition, with fat layer exposed: Plan: 67yo female with a history of IDDM2, HTN, HLD, CAD, CKD3b, hypothyroidism, STEWART (on CPAP), cor pulmonale, OHS, and chronic respiratory failure (on 4L supplemental oxygen at home) admitted to [facility] on 11/30 for right lateral foot cellulitis and fifth toe ulcer. Right fifth toe ulcer, cellulitis With h/o MRSA cellulitis in 2021, and at risk for polymicrobial infection due to Diabetes. No sepsis. - XR negative for osteomyelitis, will order MRI to more completely rule out, and to better define severity of ulceration - note: arterial US RLE non-specific and non-optimal due to body habitus - started on Dapto/Zosyn on admission, continue both for now - follow blood/wound cx and adjust abx as necessary - PRN Tylenol for pain, Tramadol for breakthrough pain (home med for patient) - Ortho consulted - appreciate recs - appreciate wound care Chronic respiratory failure, STEWART, OHS Chronic need of 4L supplemental O2 via nasal cannula, and CPAP HS. Without exacerbation. - continue both as inpatient. Chronic Cor Pulmonale; Morbid Obesity Last TTE in 06/2022 with EF 55-60%, moderately reduced RV systolic function, moderate RVH, moderate TR, RVSP >60mmHg. --> Likely due to STEWART/OHS. Currently euvolemic. - continue home Lasix - O2/CPAP as above - consider GLP-1 +/- consideration for weight loss surgery as outpatient - defer to PCP CAD S/p PCI with DESx1 to LCx in 2017 - ASA/Brilinta stopped by Cardiology in 2019, as patient had life-threatening GI bleed - hold home statin while on Daptomycin IDDM2 A1c 10.4 today. - continue basal/bolus regimen while inpatient Normocytic Anemia Chronic, ~at baseline here, suspect due to CKD with possible contribution from iron deficiency. - iron profile and B12/folate pending - trend CBC in AM Vitamin D deficiency. Level of 17.2 - start D3 1000 units daily x3 months - continue after discharge - check level in 3 months - per PCP HTN: controlled at this time, continue to monitor HLD: holding home crestor while on daptomycin CKD3b: avoid nephrotoxins Hypothyroidism: continue home Synthroid FEN: heart healthy DM2 diet Code status: DNI (chest compressions OK, defibrillation OK) DVT ppx: lovenox Consults: orthopedics, wound care nurse PT/OT: ordered Dispo: med/surg (2) Diabetes mellitus type 2 in obese: (3) Acute and chronic respiratory failure with hypoxia: (4) Anemia: (5) CAD S/P percutaneous coronary angioplasty: (6) Hypertension: (7) Hypokalemia: (8) Hypothyroidism: (9) Obesity hypoventilation syndrome: (10) Obstructive sleep apnea syndrome: (11) Morbid obesity with BMI of 50.0-59.9, adult: (12) Stage 3b chronic kidney disease: Admission and Anticipated Discharge Date Admission Date: November 30, 2022 Subjective Patient reports ~1 week of worsening/spreading of erythema/swelling/warmth over right lateral forefoot. Then went to PT yesterday and reportedly the area of erythema "blew up" and leaked blood and puss. No fever/chills. No weakness or decreased PO intake. Did report a wound on her foot in the past that took almost 1 year to heal. Review of Systems Review of Systems: All systems reviewed & are unremarkable except as noted in HPI & below Physical Exam Physical Exam: General: A&Ox3. NAD. Cooperative. Morbidly obese. HEENT: Atraumatic, normocephalic. Pulm: CTAB A&P. -wheezes, -rales, -rhonchi. Symmetrical chest rise. No increase work of breathing. No respiratory distress. Cardiac: RRR, -mrg. Radial pulses intact and symmetrical. Abdominal: soft, non-tender, non-distended, BS x 4 Right foot: right dorsolateral forefoot erythematous/edematous/warm. Area of ulcer is with overlying dressing and c/d/i. Area of erythema has slightly decreased from previous pen markings on admission. Results & Data Results & Data Vital Signs (Past 12 Hours) Vital Signs Temp Pulse Pulse Resp BP Pulse Ox O2 Del Method 12/01/22 06:50 36.8 C 85 16 121/65 94 Nasal Cannula 12/01/22 02:50 80 26 H 98 11/30/22 22:08 84 20 97 11/30/22 20:45 Nasal Cannula 11/30/22 20:45 36.5 C 95 H 22 164/72 H 93 Nasal Cannula O2 Flow Rate 12/01/22 06:50 4 12/01/22 02:50 5 11/30/22 22:08 5 11/30/22 20:45 5 11/30/22 20:45 5 Resident Activity Tracking Resident Involvement: Resident Care Provided Care Provided: Adult Hospital Medicine (6) Hypertension Hypertension type: essential hypertension Qualified Code(s): I10 - Essential (primary) hypertension
[2022-12-01] MEDS ORDERED: PIPERACILLIN/TAZOBACTAM 4.5 GM (over 30 mins) IV ONE (08:00)
[2022-12-01] MEDS: FUROSEMIDE 20 MG TAB PO SCH (08:51)
[2022-12-01] MEDS: ENOXAPARIN INJ 40 MG/0.4 ML SYR SQ SCH ×2 (08:51→19:39)
[2022-12-01] MEDS: MULTIVITAMIN TAB PO SCH (08:51)
--- NOTE | 2022-12-01 09:43 | Billing Data ---
Date of Service November 30, 2022 Coding Level of Care Code 28997 INT INP/OBS CARE
[2022-12-01 11:33] LABS: Hematocrit (blood only) 30.2 % (37.0-47.0); Hemoglobin 9.2 g/dl (12.0-16.0); Mean Corpuscular Hemoglobin 26.9 pg (25.0-34.0); Mean Corpuscular Hgb Conc 30.5 g/dL (32.0-36.0); Mean Corpuscular Volume 88.3 fL (80.0-100.0); Mean Platelet Volume 11.1 fL (9.4-12.4); Platelet Count 219 K/uL (130-400); RDW Coefficient of Variation 18.4 % (11.5-14.5); RDW Standard Deviation 58.5 fL (36.4-46.3); Red Blood Count 3.42 M/uL (4.20-5.40); White Blood Count 11.61 K/ul (4.8-10.8)
[2022-12-01 11:47] LABS: Estimated Average Glucose 252 mg/dl; Hemoglobin A1C 10.4 % (4.5-5.6)
[2022-12-01 11:56] LABS: BUN Creatinine Ratio 17.2 (10-20); Creatinine Clr Calc Pharmacy 46.4 ml/min; Est GFR (African American) 39.1 ml/min; Est GFR (Non-African American) 33.8 ml/min; Magnesium 2.2 mg/dl (1.7-2.4); Phosphorus 3.7 mg/dl (2.5-4.9); Potassium 4.2 mmol/L (3.5-5.1)
[2022-12-01 12:15] LABS: Ferritin 178.5 ng/ml (8-388)
[2022-12-01 12:41] LABS: Vitamin D, 25 Hydrox 17.2 ng/ml (30-100)
[2022-12-01] MEDS ORDERED: PIPERACILLIN/TAZOBACTAM 4.5 GM in DEXTROSE 5% 100 ML IV SCH (13:00)
--- NOTE | 2022-12-01 13:44 | Magnetic Resonance Report ---
MRI OF THE RIGHT FOREFOOT WITHOUT CONTRAST CLINICAL HISTORY: Ulcer/cellulitis 5th toe. Evaluate for osteomyelitis. COMPARISON STUDY: Right foot radiographs November 30, 2022. TECHNIQUE: Utilizing a 1.5 Sandra magnet and dedicated coil, multiplanar, multiecho imaging of the rig ht forefoot was attempted without intravenous contrast. This study cannot be completed due to respira tory difficulty. FINDINGS: Due to respiratory difficulty, the study could not be completed and only 3 pulsing sequence s were obtained. Although evaluation is suboptimal, there is diminished T1 signal and increased T2 si gnal within the distal tuft of the distal phalanx of the right third toe shown on sagittal image 9 of 26. No additional sites of marrow signal abnormality within the right forefoot are present. Tarsomet atarsal joints are grossly intact. Dorsal subcutaneous edema is present. No fluid collection is ident ified on this unenhanced examination. No fractures are identified. IMPRESSION: 1. Incomplete examination, as described above. However, suspected marrow signal abnormality within th e distal tuft of the distal phalanx of the right third toe which raises the possibility of acute oste omyelitis. No additional sites of marrow signal abnormality within the right forefoot. 2. Dorsal right forefoot edema. No fluid collection. ACT 112: Negative or not required by law. Electronically signed by: Mack Soto M.D. 12/01/2022 1:42 PM
[2022-12-01] MEDS: DAPTOmycin 500 MG in SYRINGE 0 ML IV SCH (16:08)
--- NOTE | 2022-12-01 17:34 | Billing Data ---
Date of Service December 01, 2022 Coding Level of Care Code 99213 SUB INP/OBS CARE MIN
[2022-12-01] MEDS: LANTUS PER UNIT CHARGE SQ SCH ×2 (17:35→21:23)
[2022-12-01] MEDS: MONTELUKAST SODIUM 10 MG TABLET PO SCH (21:57)
--- NOTE | 2022-12-02 00:13 | Electrocardiogram Report ---
Test Reason : Blood Pressure : / mmHG Vent. Rate : 087 BPM Atrial Rate : 087 BPM P-R Int : 188 ms QRS Dur : 096 ms QT Int : 370 ms P-R-T Axes : 047 119 015 degrees QTc Int : 445 ms Normal sinus rhythm Right axis deviation Cannot rule out Anterior infarct (cited on or before 30-NOV-2022) Nonspecific T wave abnormality Abnormal ECG When compared with ECG of 05-JUL-2022 20:25, QRS axis Shifted right Confirmed by Charles Sommers ([id number]) on 12/02/2022 12:13:11 AM Referred By: REFERRED SELF Confirmed By:Charles Sommers
[2022-12-02] MEDS: traMADol HCL 50 MG TABLET PO PRN ×4 (03:18→22:30)
[2022-12-02] MEDS: LEVOTHYROXINE SODIUM 112 MCG TABLET PO SCH (05:27)
--- NOTE | 2022-12-02 06:56 | Hospitalist Progress Note ---
Date of Service December 02, 2022 Assessment & Plan (1) Diabetic ulcer of right foot associated with diabetes mellitus due to underlying condition, with fat layer exposed: Plan: 67yo female with a history of IDDM2, HTN, HLD, CAD, CKD3b, hypothyroidism, STEWART (on CPAP), cor pulmonale, OHS, and chronic respiratory failure (on 4L supplemental oxygen at home) admitted to [facility] on 11/30 for right lateral foot cellulitis and fifth toe ulcer. Right fifth toe ulcer, cellulitis With h/o MRSA cellulitis in 2021, and at risk for polymicrobial infection due to Diabetes. No sepsis. - XR negative for osteomyelitis, will order MRI to more completely rule out, and to better define severity of ulceration - note: arterial US RLE non-specific and non-optimal due to body habitus - started on Dapto/Zosyn on admission -- based on cultures we have deescalated to ceftriaxone at this time - Consider ID consult prior to DC for further antibiotic guidance - follow blood/wound cx and adjust abx as necessary - PRN Tylenol for pain, Tramadol for breakthrough pain (home med for patient) - Ortho consulted - appreciate recs - appreciate wound care Chronic respiratory failure, STEWART, OHS Chronic need of 4L supplemental O2 via nasal cannula, and CPAP HS. Without exacerbation. - continue both as inpatient. Chronic Cor Pulmonale; chronic systolic RV CHF, Morbid Obesity Last TTE in 06/2022 with EF 55-60%, moderately reduced RV systolic function, moderate RVH, moderate TR, RVSP >60mmHg. --> Likely due to STEWART/OHS. Currently euvolemic. - continue home Lasix - O2/CPAP as above - consider GLP-1 +/- consideration for weight loss surgery as outpatient - defer to PCP CAD S/p PCI with DESx1 to LCx in 2018 - ASA/Brilinta stopped by Cardiology in 2019, as patient had life-threatening GI bleed - hold home statin while on Daptomycin IDDM2 A1c 10.4 today. - continue basal/bolus regimen while inpatient Normocytic Anemia Chronic, ~at baseline here, suspect due to CKD with possible contribution from iron deficiency. - iron profile and B12/folate pending - trend CBC in AM Vitamin D deficiency. Level of 17.2 - start D3 1000 units daily x3 months - continue after discharge - check level in 3 months - per PCP HTN: controlled at this time, continue to monitor HLD: holding home crestor while on daptomycin CKD3b: avoid nephrotoxins Hypothyroidism: continue home Synthroid FEN: heart healthy DM2 diet Code status: DNI (chest compressions OK, defibrillation OK) DVT ppx: lovenox Consults: orthopedics, wound care nurse PT/OT: ordered Dispo: med/surg, plan for DC after surgery input and further abx planning (2) Diabetes mellitus type 2 in obese: (3) Acute and chronic respiratory failure with hypoxia: (4) Anemia: (5) CAD S/P percutaneous coronary angioplasty: (6) Hypertension: (7) Hypokalemia: (8) Hypothyroidism: (9) Obesity hypoventilation syndrome: (10) Obstructive sleep apnea syndrome: (11) Morbid obesity with BMI of 50.0-59.9, adult: (12) Stage 3b chronic kidney disease: Admission and Anticipated Discharge Date Admission Date: November 30, 2022 Supervising Physician Co-Signing Physician Notes I personally examined the patient and verified all boone points of history and exam, discussed case, and agree with decision making with Dr Fabian. Greatly appreciate surgical input. No new complaints from patient. Outlined overall plan. Vitals noted, in general she is awake and alert pleasant no distress. HEENT normocephalic atraumatic mucous membranes moist. Breathing unlabored no accessory muscle use good effort. Skin shows right lower foot erythema. Neuro without focal deficits. Foot cellulitis and osteomyelitisfortunately based on her overall clinical milieu and culturescan change daptomycin to ceftriaxone. With the osteomyelitis, anticipate 8 to 12 weeks of treatmenthowever, given the risk and sensitivity of the areawe will ask infectious disease for input to get their thoughts on an optimal regimen as well. Continue to follow closely. Otherwise as above. Subjective Feeling relatively well this AM. Does state when the pain meds wear off the pain continues to be severe, but controlled on meds. No f/c, n/v, SOB, abd pain, CP, palp. Review of Systems Review of Systems: See HPI Physical Exam Physical Exam: General: A&Ox3. NAD. Cooperative. Morbidly obese. HEENT: Atraumatic, normocephalic. Pulm: CTAB A&P. -wheezes, -rales, -rhonchi. Symmetrical chest rise. No increase work of breathing. No respiratory distress. Cardiac: RRR, -mrg. Radial pulses intact and symmetrical. Abdominal: soft, non-tender, non-distended, BS x 4 Right foot: right dorsolateral forefoot erythematous/edematous/warm. Area of ulcer is with overlying dressing and c/d/i. Area of erythema has slightly decreased from previous pen markings on admission. Results & Data Results & Data Vital Signs (Past 12 Hours) Vital Signs Temp Pulse Pulse Resp BP Pulse Ox O2 Del Method 12/02/22 02:20 75 20 96 12/01/22 23:00 79 18 97 12/01/22 21:10 37.1 C 82 18 109/66 94 Nasal Cannula 12/01/22 19:48 Nasal Cannula O2 Flow Rate 12/02/22 02:20 4 12/01/22 23:00 4 12/01/22 21:10 4 12/01/22 19:48 2 Resident Activity Tracking Resident Involvement: Resident Care Provided Care Provided: Adult Hospital Medicine (6) Hypertension Hypertension type: essential hypertension Qualified Code(s): I10 - Essential (primary) hypertension
[2022-12-02 08:09] LABS: Basophils # (auto) 0.05 K/uL (0-0.2); Basophils % (auto) 0.5 %; Eosinophils # (auto) 0.84 K/uL (0-0.50); Eosinophils % (auto) 8.6 %; Hemoglobin 8.3 g/dl (12.0-16.0); Immature Granulocytes # (auto) 0.04 K/uL (0.01-0.20); Immature Granulocytes % (auto) 0.4 %; Lymphocytes # (auto) 1.82 K/uL (1.2-3.4); Lymphocytes % (auto) 18.7 %; Mean Corpuscular Hemoglobin 27.4 pg (25.0-34.0); Mean Corpuscular Hgb Conc 30.7 g/dL (32.0-36.0); Mean Corpuscular Volume 89.1 fL (80.0-100.0); Mean Platelet Volume 11.3 fL (9.4-12.4); Monocytes # (auto) 0.97 K/uL (0.11-0.59); Monocytes % (auto) 9.9 %; Neutrophils # (auto) 6.03 K/uL (1.40-6.50); Neutrophils % (auto) 61.9 %; Platelet Count 213 K/uL (130-400); RDW Coefficient of Variation 18.4 % (11.5-14.5); RDW Standard Deviation 59.6 fL (36.4-46.3); Red Blood Count 3.03 M/uL (4.20-5.40); White Blood Count 9.75 K/ul (4.8-10.8)
[2022-12-02 08:26] LABS: Calcium 8.9 mg/dl (8.6-10.3); Creatinine Clr Calc Pharmacy 41.4 ml/min; Est GFR (African American) 34.1 ml/min; Est GFR (Non-African American) 29.4 ml/min; Magnesium 2.3 mg/dl (1.7-2.4); Potassium 4.1 mmol/L (3.5-5.1)
[2022-12-02 08:35] LABS: Troponin I High Sensitivity 13.3 pg/ml (0-14)
[2022-12-02] MEDS: INSULIN ASPART PER UNIT CHARGE SC SCH ×4 (09:03→20:18)
[2022-12-02] MEDS: ENOXAPARIN INJ 40 MG/0.4 ML SYR SQ SCH ×2 (09:04→20:08)
[2022-12-02] MEDS: MULTIVITAMIN TAB PO SCH (09:04)
[2022-12-02] MEDS: CHOLECALCIFEROL 1,000 UNITS 25 MCG TAB PO SCH (09:04)
[2022-12-02] MEDS: LANTUS PER UNIT CHARGE SQ SCH ×2 (09:04→20:19)
[2022-12-02] MEDS: FUROSEMIDE 20 MG TAB PO SCH (09:04)
--- NOTE | 2022-12-02 12:07 | Consultation Report ---
DATE OF CONSULTATION: 12/02/2022 HISTORY OF PRESENT ILLNESS: This is a pleasant 67-year-old female admitted to the hospitalist service and consult requested by Dr. Greg Stahl and Dr. Marco A Graf for a patient of Dr. Aiyana Perry. The patient has had an approximately 1-2 week history of right foot pain, redness, ulceration of right fifth toe and lateral foot swelling, pain and redness, which has worsened significantly over the 48 hours prior to admission. The patient had a home physical therapist/lymphedema therapist who had seen her and noted the open ulceration of the fifth metatarsal head, concerning for rapid progression of the foot ulcer. The patient was then recommended to follow up in the Emergency Department for further treatment. She was evaluated by the Emergency Department staff and then admitted to the hospitalist service. Orthopedics was consulted at that point after admission. Radiographs and MRI note no evidence of osteomyelitis or gas in the tissue over the fifth metatarsal head; however, there is concern about possible osteomyelitis at the tip of the third toe, which had not been symptomatic; however, the patient did admit that she has [facility] and also has been seeing a local cotton roll packer off of a [address], she does not know the name for several months for care of her nails and calluses. PAST MEDICAL HISTORY: Right fifth metatarsal head ulcer and cellulitis, diabetes mellitus type 2, chronic anemia, hypokalemia, hypertension, hyperlipidemia, chronic kidney disease, hypothyroidism, obstructive sleep apnea, morbid obesity, chronic respiratory failure, hypothyroidism, diverticulitis, history of COVID-19 with acute respiratory failure, ARDS, diarrhea, GERD, hypertension, chronic lymphedema, proteinuria, thyroid cancer, vitamin D deficiency. PAST SURGICAL HISTORY: Endoscopy, partial thyroidectomy, colonoscopy, percutaneous coronary intervention. ALLERGIES: IODINE CONTRAST MEDIA WITH HIVES AND KIDNEY COMPLICATIONS, SHELLFISH DERIVED MATERIAL AND SULFITES, HIVES AND THROAT CLOSING. MEDICATIONS: Home meds are insulin, rosuvastatin, tramadol, Montelukast, Xopenex HFA, nitroglycerin sublingual, levalbuterol nebulizer, home oxygen at 4 liters, Epoetin, Procrit injection, furosemide, levothyroxine, nystatin and BiPAP machine. SOCIAL HISTORY: The patient denies tobacco, alcohol, or drug use. She is . She is disabled. 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 PHYSICAL EXAMINATION: GENERAL: This is a pleasant 67-year-old morbidly obese female, lying supine in her hospital room bed. She is awake and alert and oriented and answers and responses to questions appropriately. SKIN: Notes multiple excoriations bilateral lower extremities with significant obesity and fat deposition on her lower extremities with some degree of lymphedema and resting edema of the lower extremities 2/4. Focused examination of the right foot demonstrates a large ulceration with maceration and undermining of the epithelium, the smaller ulcer is much smaller size; however, the delamination of the epithelial layer down to the dermis and into the fat layers obvious. There is some purulent discharge; however, does not appear to be coming from deep. It is actually into the epithelium, discussed this with the patient. The pedal pulses are palpable, 1+/4 bilaterally. Sensation is limited beyond the mid foot bilaterally. Hair growth is scant. 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 At this point, the ulcer was then lavaged with sterile saline at bedside using a sterile forceps and scissors, sharp debridement was then performed to unroof the ulceration including necrotic epithelium down to the level of the dermis and the fat layer. There is no abscess noted. It was actually collected transudate and exudate under the epithelium. The patient tolerated well as her diabetic neuropathy was evident. Areas of granulation surrounding the deeper ulcer down to the layer of the fat. No transmission or communication with the joint surface. New measurements noted to be 4.25 x 4.5 x 0.5 cm surrounding the epicenter of the fifth metatarsal head. Local erythema and cellulitis is noted. There was a pen line, which the erythema appears to be retracted from by approximately 0.5 cm, which appears to be an improvement compared to admission status. Range of motion is limited in the bilateral ankles and feet due to the patient's morbid obesity and limitations in range of motion chronically. Strength is 4+/5 in all eli of bilateral lower extremities. She has limitation of range of motion of her right knee due to severe osteoarthritis, swelling and soft tissue impingement. Radiographs and MRIs reviewed noting no evidence of discrete osteomyelitis of the fifth metatarsal or fifth metatarsal head region. However, there is evidence of possible osteomyelitis at the tip of the third toe and upon physical examination, there was noted to be hypertrophic dystrophic third toenail of the right third toe with thickened callus eschar. No evidence of ulcer, appears to be chronic edema, swelling of the area; however, no obvious signs of osteomyelitis could be features of a superficial to deep gangrene, which was not evident. MRI notes only involvement of the third distal phalanx of the right third toe. Laboratories reviewed. No evidence of sepsis. Micro demonstrates cultures positive for Staphylococcus aureus in the right foot, collected on 11/30/2022. IMPRESSION: 1. Right foot diabetic ulceration, fifth metatarsal head proceeding to fat layer. 2. Ulceration 4.25 cm x 4.5 cm x 0.5 cm. 3. Osteomyelitis, right foot third toe distal phalanx. 4. Multiple medical comorbidities. 5. Morbid obesity. RECOMMENDATION: Continue IV antibiotics. After the patient sharp debridement was performed at bedside with unroofing of the epithelium and removal of the necrotic slough and epithelium and debridement down to the level of fat the 4.25 x 4.5 x 0.5 cm ulceration should be primarily managed with daily dressing changes with an over dressing with Optifoam and a waffle boot. Maintain minimal to no weightbearing on the right foot fifth metatarsal. We will reassess the patient's progress as a primary debridement performed today at bedside could be enough for definitive management. Will reassess progress over the next 48hours. Continue wound care consult as well. Thank you for the opportunity to consult in the care of this patient. Job ID: [id number] [facility] HOSPITALIlya
[2022-12-02] MEDS: cefTRIAXone SODIUM 2,000 MG in DEXTROSE 5% 50 ML IV SCH (12:52)
--- NOTE | 2022-12-02 16:35 | Billing Data ---
Date of Service December 02, 2022 Coding Level of Care Code 94925 SUB INP/OBS CARE MIN
[2022-12-02] MEDS: MONTELUKAST SODIUM 10 MG TABLET PO SCH (20:19)
[2022-12-03] MEDS: LEVOTHYROXINE SODIUM 112 MCG TABLET PO SCH (05:24)
[2022-12-03] MEDS: traMADol HCL 50 MG TABLET PO PRN ×3 (05:32→22:28)
--- NOTE | 2022-12-03 07:26 | Hospitalist Progress Note ---
Date of Service December 03, 2022 Assessment & Plan (1) Diabetic ulcer of right foot associated with diabetes mellitus due to underlying condition, with fat layer exposed: Plan: 67yo female with a history of IDDM2, HTN, HLD, CAD, CKD3b, hypothyroidism, STEWART (on CPAP), cor pulmonale, OHS, and chronic respiratory failure (on 4L supplemental oxygen at home) admitted to [facility] on 11/30 for right lateral foot cellulitis and fifth toe ulcer. Right fifth toe ulcer with cellulitis; Osteomyelitis of Right 3rd Distal Phalanx Osteo per MRI on 12/01. With h/o MRSA cellulitis in 2021. However wound culture from ulcer +MSSA. No sepsis. S/p debridement of ulcer (to fat layer) on 12/02. - note: arterial US RLE non-specific and non-optimal due to body habitus - started on Dapto/Zosyn on admission, transitioned to Daptomycin monotherapy on 12/01, and downgraded to Ceftriaxone monotherapy on 12/02 (today is day 4 abx) - Ortho on board - appreciate ongoing recs - consulted ID for further antibiotic guidance - follow blood/wound cx and adjust abx as necessary - PRN Tylenol for pain, Tramadol for breakthrough pain (home med for patient) - Ortho consulted - appreciate recs - appreciate wound care Chronic respiratory failure, STEWART, OHS Chronic need of 4L supplemental O2 via nasal cannula, and CPAP HS. Without exacerbation. - continue both as inpatient. Chronic Cor Pulmonale; Morbid Obesity Last TTE in 06/2022 with EF 55-60%, moderately reduced RV systolic function, moderate RVH, moderate TR, RVSP >60mmHg. --> Likely due to STEWART/OHS. Currently euvolemic. - continue home Lasix - O2/CPAP as above - consider GLP-1 +/- consideration for weight loss surgery as outpatient - defer to PCP CAD S/p PCI with DESx1 to LCx in 2018 - ASA/Brilinta stopped by Cardiology in 2019, as patient had life-threatening GI bleed - resume home Rosuvastatin IDDM2 A1c 10.4 this admission. Was on Insulin-R U-500 50 units BID at home. - continue basal/bolus regimen while inpatient: Lantus 18 units BID + Novolog - consider addition of Metformin on discharge - recommend outpatient discussion about GLP-1, as stated above Normocytic Anemia Chronic, ~at baseline here, suspect due to CKD with possible contribution from iron deficiency. - iron 29, ferritin 178.5 but artificially elevated due to infection --> consider repletion with IV iron in the future - trend CBC Vitamin D deficiency. Level of 17.2 - start D3 1000 units daily x3 months - continue after discharge - check level in 3 months - per PCP HTN: controlled at this time, continue to monitor HLD: holding home crestor while on daptomycin CKD3b: avoid nephrotoxins Hypothyroidism: continue home Synthroid FEN: heart healthy DM2 diet Code status: DNI (chest compressions OK, defibrillation OK) DVT ppx: patient has been refusing Lovenox - counseled on benefits/risks, patient expressed understanding, and still refusing Consults: orthopedics, wound care nurse Dispo: med/surg (2) Diabetes mellitus type 2 in obese: (3) Acute and chronic respiratory failure with hypoxia: (4) Anemia: (5) CAD S/P percutaneous coronary angioplasty: (6) Hypertension: (7) Hypokalemia: (8) Hypothyroidism: (9) Obesity hypoventilation syndrome: (10) Obstructive sleep apnea syndrome: (11) Morbid obesity with BMI of 50.0-59.9, adult: (12) Stage 3b chronic kidney disease: Admission and Anticipated Discharge Date Admission Date: November 30, 2022 Supervising Physician Co-Signing Physician Notes I personally examined the patient and verified all boone points of history and exam, discussed case, and agree with decision making with Dr Najera. Little bit of foot pain. Discussed her overall situation at home, and trying to do everything possible to help her osteomyelitis heal and her foot wound heal without need for amputation. Vitals noted, in general she is awake and alert pleasant no distress. HEENT normocephalic atraumatic mucous membranes moist. Breathing unlabored no accessory muscle use good effort. Skin shows right lower foot erythema. Neuro without focal deficits. Foot cellulitis and osteomyelitisfortunately based on her overall clinical milieu and culturescontinue ceftriaxone. With the osteomyelitis, anticipate 8 to 12 weeks of treatmenthowever, given the risk and sensitivity of the areawe will ask infectious disease for input to get their thoughts on an optimal regimen as well. Once regimen is determinedwork towards setting up for homeclose outpatient follow-up with PCP and Ortho as well as wound clinic Morbid obesity with significant debilityBMI 62.6 debility including uncontrolled type 2 diabetes, venous stasis and subsequent "fall out" as well as chronic right-sided CHF/cor pulmonale -> After patient initiated discussion of difficulties with diabetes self-care, we ended up having an extensive discussion about the limitations of being able to have decent control on a regimen of only a basal insulin that also happens to peak 6 to 8 hours after injection. She expressed understanding of this after several iterations of discussion of her regimen versus a basal bolus regimen, as well as talking normal pancreatic physiologyand it turns out that her ac/dc rewinder had been discussing with her changing to a more physiologic insulin regimen, but she had been reticent to do so. Here in the hospital we are building a basal bolus regimen anyway, and after discussion, I made it clear to her that I do not believe she can affect any type of truly decent control on her current regimen. Discussed that her A1c's for the last 5 years have basically ranged from 7.9-11.0 with an average in the 9-gaurav rangeand we really need to help her get better control. Discussed that a basal bolus regimen does have a bit of a learning curve as she learns to "match" her short acting insulin to the carbohydrates she is taking in, but that after that learning curve is affected, people are able to really take care of themselves much better. She expressed understanding and agreement to move in this direction. -> As it relates to her lymphedemashe definitely should continue compression and elevation, but we also discussed that weight loss and movement would be critically important to improving her venous stasis as well. Discussed that her Nutrisystem diet should be very helpful with weight loss, but to continue to burn off more calories than she takes in, we should add some degree of meaningful exercise. She notes she is significantly limited in what she can do on her feetI expressed understanding of this, and encouraged her even to do leg pumps in bed as it relates to leg muscle contraction to try to clear venous stasis fluid; but at the same time was very clear that such exercises, as well as the arm exercises that she does in bed, have very little meaningful calorie burn as it relates to weight loss (I estimated about 15-25 ashutosh per session, outlining to her that there is approximately 3500 ashutosh in a poundand said that while that type of movement is good, as it relates to burning off calories to affect any meaningful weight loss, it would be analogous to trying to save money by picking up pennies that were dropped in a parking lot)to that end, we discussed trying to do some type of light cardiovascular exercise that would get her heart rate up and get her breathing heavily with an ideal goal of 20 minutes a day. With her limitations, I suggested something like a hand bike (and pulled up pictures of 1 as an example) and also discussed that while 20 minutes a day would be ideal, if when she starts that she can only do 5 minutes that would be okay and she would build from therethat doing something would be better than nothing, but more would be better than less -> I would hope that the above measures would also have a favorable impact on her cor pulmonale Essentiallyher ideal "roadmap" to reclaim her health would entail getting on a physiologic insulin regimen so that she can have better and more reliable glucose control, continuing her tight diet control, increasing activity to the best of her ability and pushing her limits, and doing all of this persistently over many months. She did express understanding and appreciation of this approach. Subjective Patient having right foot pain worsened since debridement yesterday, but controlled with Tramadol. Otherwise no concerns. No fever/chills. No SOB. Review of Systems Review of Systems: All systems reviewed & are unremarkable except as noted in HPI & below Physical Exam Physical Exam: General: A&Ox3. NAD. Cooperative. Morbidly obese. HEENT: Atraumatic, normocephalic. Pulm: CTAB A&P. -wheezes, -rales, -rhonchi. Symmetrical chest rise. No increase work of breathing. No respiratory distress. Cardiac: RRR, -mrg. Radial pulses intact and symmetrical. Abdominal: soft, non-tender, non-distended, BS x 4 Right foot: right dorsolateral forefoot erythematous/edematous/warm. Area of ulcer is with overlying dressing and c/d/i. Area of erythema stable in size. Results & Data Results & Data Vital Signs (Past 12 Hours) Vital Signs Temp Pulse Pulse Resp BP Pulse Ox O2 Del Method 12/03/22 07:24 36.4 C L 81 20 165/106 H 97 Nasal Cannula 12/03/22 03:57 19 12/02/22 23:32 78 19 97 12/02/22 22:29 36.8 C 79 18 156/76 H 93 Nasal Cannula 12/02/22 21:30 Nasal Cannula O2 Flow Rate 12/03/22 07:24 5 12/03/22 03:57 4 12/02/22 23:32 4 12/02/22 22:29 4 12/02/22 21:30 Resident Activity Tracking Resident Involvement: Resident Care Provided Care Provided: Adult Hospital Medicine (6) Hypertension Hypertension type: essential hypertension Qualified Code(s): I10 - Essential (primary) hypertension
[2022-12-03] MEDS: INSULIN ASPART PER UNIT CHARGE SC SCH ×4 (08:44→22:26)
[2022-12-03] MEDS: CHOLECALCIFEROL 1,000 UNITS 25 MCG TAB PO SCH (08:45)
[2022-12-03] MEDS: MULTIVITAMIN TAB PO SCH (08:45)
[2022-12-03] MEDS: ENOXAPARIN INJ 40 MG/0.4 ML SYR SQ SCH ×2 (08:45→22:12)
[2022-12-03] MEDS: LANTUS PER UNIT CHARGE SQ SCH ×2 (08:45→22:26)
[2022-12-03] MEDS: FUROSEMIDE 20 MG TAB PO SCH (08:45)
[2022-12-03 10:48] LABS: Basophils # (auto) 0.06 K/uL (0-0.2); Basophils % (auto) 0.6 %; Eosinophils # (auto) 0.84 K/uL (0-0.50); Eosinophils % (auto) 8.1 %; Hematocrit (blood only) 28.9 % (37.0-47.0); Hemoglobin 8.6 g/dl (12.0-16.0); Immature Granulocytes # (auto) 0.05 K/uL (0.01-0.20); Immature Granulocytes % (auto) 0.5 %; Lymphocytes # (auto) 1.71 K/uL (1.2-3.4); Lymphocytes % (auto) 16.4 %; Mean Corpuscular Hgb Conc 29.8 g/dL (32.0-36.0); Mean Corpuscular Volume 90.6 fL (80.0-100.0); Mean Platelet Volume 11.6 fL (9.4-12.4); Monocytes # (auto) 0.85 K/uL (0.11-0.59); Monocytes % (auto) 8.1 %; Neutrophils # (auto) 6.92 K/uL (1.40-6.50); Neutrophils % (auto) 66.3 %; Platelet Count 222 K/uL (130-400); RDW Coefficient of Variation 18.3 % (11.5-14.5); RDW Standard Deviation 60.1 fL (36.4-46.3); Red Blood Count 3.19 M/uL (4.20-5.40); White Blood Count 10.43 K/ul (4.8-10.8)
[2022-12-03 10:52] LABS: BUN Creatinine Ratio 19.1 (10-20); Calcium 9.3 mg/dl (8.6-10.3); Creatinine Clr Calc Pharmacy 42.6 ml/min; Est GFR (African American) 34.8 ml/min; Magnesium 2.2 mg/dl (1.7-2.4); Potassium 4.5 mmol/L (3.5-5.1)
[2022-12-03] MEDS: cefTRIAXone SODIUM 2,000 MG in DEXTROSE 5% 50 ML IV SCH (12:56)
--- NOTE | 2022-12-03 15:52 | Billing Data ---
Date of Service December 03, 2022 Coding Level of Care Code 05004 SUB INP/OBS CARE MIN
--- NOTE | 2022-12-03 19:52 | Electrocardiogram Report ---
Test Reason : Blood Pressure : / mmHG Vent. Rate : 080 BPM Atrial Rate : 080 BPM P-R Int : 186 ms QRS Dur : 096 ms QT Int : 410 ms P-R-T Axes : 064 092 034 degrees QTc Int : 472 ms Normal sinus rhythm Rightward axis Abnormal ECG When compared with ECG of 30-NOV-2022 16:32, No significant change Confirmed by Kervin Hurley ([id number]) on 12/03/2022 7:51:34 PM Referred By: REFERRED SELF Confirmed By:Kervin Hurley
[2022-12-03] MEDS: MONTELUKAST SODIUM 10 MG TABLET PO SCH (22:27)
[2022-12-03] MEDS: ROSUVASTATIN CALCIUM 20 MG TAB PO SCH (23:46)
[2022-12-04] MEDS: LEVOTHYROXINE SODIUM 112 MCG TABLET PO SCH (05:45)
[2022-12-04] MEDS: traMADol HCL 50 MG TABLET PO PRN ×2 (06:20→21:18)
[2022-12-04 07:11] LABS: Basophils # (auto) 0.04 K/uL (0-0.2); Basophils % (auto) 0.5 %; Eosinophils # (auto) 0.81 K/uL (0-0.50); Eosinophils % (auto) 9.8 %; Hematocrit (blood only) 28.6 % (37.0-47.0); Hemoglobin 8.5 g/dl (12.0-16.0); Immature Granulocytes # (auto) 0.04 K/uL (0.01-0.20); Immature Granulocytes % (auto) 0.5 %; Lymphocytes # (auto) 1.84 K/uL (1.2-3.4); Lymphocytes % (auto) 22.3 %; Mean Corpuscular Hemoglobin 26.8 pg (25.0-34.0); Mean Corpuscular Hgb Conc 29.7 g/dL (32.0-36.0); Mean Corpuscular Volume 90.2 fL (80.0-100.0); Mean Platelet Volume 10.8 fL (9.4-12.4); Monocytes # (auto) 0.74 K/uL (0.11-0.59); Neutrophils # (auto) 4.77 K/uL (1.40-6.50); Neutrophils % (auto) 57.9 %; Nucleated RBC # (auto) 0.02 K/uL (0-0.12); Nucleated RBC % (auto) 0.2 %; Platelet Count 227 K/uL (130-400); RDW Coefficient of Variation 18.3 % (11.5-14.5); RDW Standard Deviation 60.6 fL (36.4-46.3); Red Blood Count 3.17 M/uL (4.20-5.40); White Blood Count 8.24 K/ul (4.8-10.8)
[2022-12-04 07:28] LABS: BUN Creatinine Ratio 18.5 (10-20); Calcium 9.2 mg/dl (8.6-10.3); Creatinine Clr Calc Pharmacy 41.4 ml/min; Est GFR (African American) 33.6 ml/min; Magnesium 2.3 mg/dl (1.7-2.4); Potassium 4.1 mmol/L (3.5-5.1)
--- NOTE | 2022-12-04 08:04 | Hospitalist Progress Note ---
Date of Service December 04, 2022 Assessment & Plan (1) Diabetic ulcer of right foot associated with diabetes mellitus due to underlying condition, with fat layer exposed: Plan: 67yo female with a history of IDDM2, HTN, HLD, CAD, CKD3b, hypothyroidism, STEWART (on CPAP), cor pulmonale, OHS, and chronic respiratory failure (on 4L supplemental oxygen at home) admitted to [facility] on 11/30 for right lateral foot cellulitis and fifth toe ulcer. Right fifth toe ulcer with cellulitis; Osteomyelitis of Right 3rd Distal Phalanx Osteo per MRI on 12/01. With h/o MRSA cellulitis in 2021. However wound culture from ulcer +MSSA. No sepsis. S/p debridement of ulcer (to fat layer) on 12/02. - note: arterial US RLE non-specific and non-optimal due to body habitus - started on Dapto/Zosyn on admission, transitioned to Daptomycin monotherapy on 12/01, and downgraded to Ceftriaxone monotherapy on 12/02 - Ortho consulted for consideration of operative management of osteomyelitis of right third distal phalanx. - consulted ID for further antibiotic guidance -Blood cultures negative; wound culture positive for Staph aureus (history of MRSA on prior admission in June 2022; however, wound culture + MSSA) * Continue IV antibiotics: Ceftriaxone 2 g every 24 hours. (Day 5) * PRN Tylenol for pain, Tramadol for breakthrough pain (home med for patient) * Per Ortho: Recommend waffle boots while in bed, limit weightbearing of right foot. Continue dry daily dressing changes with Aquacel and Optifoam. Continue antibiotics per ID recommendations (successful nonoperative management of third toe distal phalanx will likely need extended duration of IV antibiotic treatment). Follow-up with Dr. Mayer at [facility] x2 weeks ([phone]). * Wound care ordered twice daily Chronic respiratory failure, STEWART, OHS Chronic need of 4L supplemental O2 via nasal cannula, and CPAP HS. Without exacerbation. * continue both as inpatient Chronic Cor Pulmonale; Morbid Obesity Last TTE in 06/2022 with EF 55-60%, moderately reduced RV systolic function, moderate RVH, moderate TR, RVSP >60mmHg. --> Likely due to STEWART/OHS. Currently euvolemic. * continue home Lasix * O2/CPAP as above * consider GLP-1 +/- consideration for weight loss surgery as outpatient - defer to PCP CAD S/p PCI with DESx1 to LCx in 2018 - ASA/Brilinta stopped by Cardiology in 2019, as patient had life-threatening GI bleed * resume home Rosuvastatin IDDM2 -Chronic; managed at home on regular insulin 50 units twice daily at home. -A1c 10.4 on admission. * Continue basal/bolus regimen while inpatient: SQ Lantus 22 units BID + Novolog * Consider addition of Metformin on discharge * Recommend outpatient discussion about GLP-1, as stated above Normocytic Anemia -Chronic, ~at baseline here, suspect due to CKD with possible contribution from iron deficiency. - iron 29, ferritin 178.5 but artificially elevated due to infection --> would consider repletion with IV iron in the future * trend CBC Vitamin D deficiency. -Level of 17.2 * Initiate D3 1000 units daily x3 months - continue after discharge * Recheck level in 3 months - per PCP HTN: controlled at this time, continue to monitor HLD: Continue home Crestor CKD3b: avoid nephrotoxins Hypothyroidism: continue home Synthroid FEN: heart healthy DM2 diet Code status: DNI (chest compressions OK, defibrillation OK) DVT ppx: patient has been refusing Lovenox - counseled on benefits/risks, patient expressed understanding, and still refusing Consults: orthopedics, wound care nurse Dispo: med/surg (2) Diabetes mellitus type 2 in obese: (3) Acute and chronic respiratory failure with hypoxia: (4) Anemia: (5) CAD S/P percutaneous coronary angioplasty: (6) Hypertension: (7) Hypokalemia: (8) Hypothyroidism: (9) Obesity hypoventilation syndrome: (10) Obstructive sleep apnea syndrome: (11) Morbid obesity with BMI of 50.0-59.9, adult: (12) Stage 3b chronic kidney disease: Admission and Anticipated Discharge Date Admission Date: November 30, 2022 Supervising Physician Co-Signing Physician Notes Attending attestation Pt seen and examined in concert with Dr. Pierre. In agreement with the documented findings as noted in the resident documentation with any exceptions or additions as noted here. Aching pain of the distal foot at the base of the 3rd digit and ongoing pain of the base of the 5th s/p debridement. On examination, S1/S2 nl RRR no MCG. CTAB. Abd NT/ND BS+ve 2+ pitting edema of the b/l LE. 2cm debrided wound with mild surrounding cellulitis of the base of the 5th digit, dry, calloused tissue of the distal 3rd digit which patient reports is unchanged from chronic. R 5th toe ulcer, 3rd distal phalanx osteomyelitis - ortho, wound care consult - continue pain control and abx therapy. ID consulted. Chronic hypoxic respiratory failure in the setting of STEWART - 4L at baseline, CPAP qHS CAD s/p PCI in 2018 - on statin therapy h/o GIB - off ASA/Brilinta Else see resident documentation as noted. Subjective Patient is awake in bed this morning. No acute events overnight. She reports no migrating pain on the bottom of her right foot. Otherwise, she has no complaints. Review of Systems Review of Systems: All systems reviewed & are unremarkable except as noted in HPI & below Physical Exam Physical Exam: General: Morbidly obese woman in no acute distress HEENT: PERRLA. Normal conjunctiva, anicteric sclera. Oropharynx normal. Respiratory: Normal respiratory effort, CTABL. Cardiovascular: RRR without murmurs, gallops, or rubs. No pedal edema. GI: Soft abdomen with normal bowel sounds heard on auscultation. Nontender x4 quadrants Neuro: Alert and oriented x3. MSK: Stage I/II ulcer at anterolateral edge of right foot immediately proximal to fifth toe covered with Band-Aid. Dressing is wet and soaked with pus. No malodorous discharge. Unable to express further pus from ulcer. Area surrounding ulcer moderately tender to palpation. Area of erythema on lateral flexor surface of right foot, beyond previously drawn line. Skin is flaky and dry. Third toe on same right foot appears dried and fungal without ulcers. No tenderness to palpation. No ulcers at right heel as well. Results & Data Results & Data Vital Signs (Past 12 Hours) Vital Signs Temp Pulse Pulse Resp BP Pulse Ox O2 Del Method 12/04/22 07:46 36.7 C 72 16 140/79 96 Nasal Cannula 12/04/22 03:17 70 20 95 12/03/22 23:20 37.1 C 79 18 132/82 96 Nasal Cannula 12/03/22 23:12 83 22 95 12/03/22 22:34 Nasal Cannula O2 Flow Rate 12/04/22 07:46 4 12/04/22 03:17 4 12/03/22 23:20 4 12/03/22 23:12 4 12/03/22 22:34 4 Resident Activity Tracking Resident Involvement: Resident Care Provided Care Provided: Adult Hospital Medicine (6) Hypertension Hypertension type: essential hypertension Qualified Code(s): I10 - Essential (primary) hypertension
[2022-12-04] MEDS: ENOXAPARIN INJ 40 MG/0.4 ML SYR SQ SCH ×2 (08:25→21:12)
[2022-12-04] MEDS: MULTIVITAMIN TAB PO SCH (08:28)
[2022-12-04] MEDS: INSULIN ASPART PER UNIT CHARGE SC SCH ×4 (08:28→21:21)
[2022-12-04] MEDS: LANTUS PER UNIT CHARGE SQ SCH ×2 (08:28→21:19)
[2022-12-04] MEDS: CHOLECALCIFEROL 1,000 UNITS 25 MCG TAB PO SCH (08:28)
[2022-12-04] MEDS: FUROSEMIDE 20 MG TAB PO SCH (08:28)
[2022-12-04] MEDS: cefTRIAXone SODIUM 2,000 MG in DEXTROSE 5% 50 ML IV SCH (13:39)
[2022-12-04] MEDS: POLYETHYLENE (MIRALAX) 17 GM PACK PO SCH (14:26)
--- NOTE | 2022-12-04 16:47 | Orthopedic Progress Note ---
Date of Service December 04, 2022 Assessment & Plan (1) Ulcer of right foot due to type 2 diabetes mellitus: Plan: Limit weightbearing right foot. Waffle boots while in bed. Continued dry daily dressing changes with Aquacel and Optifoam. Continue antibiotics per infectious disease recommendations, bearing in mind that if continued nonoperative management will be successful it will likely need to extend the duration of IV antibiotic treatment to reach the distal phalanx of the third toe in this patient with significant chronic circulatory issues. Follow-up with Dr. Mayer at [facility]; please call for appointment for 2-week follow- up . Thank you for the opportunity to consult in the care of this patient. (2) Osteomyelitis of third toe of right foot: (3) Cellulitis of right foot: (4) Chronic acquired lymphedema: Admission and Anticipated Discharge Date Admission Date: November 30, 2022 Subjective Patient seen at bedside during telemedicine visit with infectious disease specialist Dr. Colbert. Patient states that her right foot has improved with decreased pain and swelling. She denies fevers or chills. She denies leg and calf pain. Physical Exam Physical Exam: Alert and oriented x3. No acute distress. Speech is clear and fluent. Conversant and answers questions appropriately. Cardiovascular: Bilateral lower extremity lymphedema and chronic pedal edema 2+/4 bilateral. Feet are warm. Pedal pulses are palpable. Musculoskeletal: Right foot examination notes marked decrease in right foot dorsal and dorsal lateral edema with decreased erythema. Continued tenderness at the site of the fifth metatarsal head and distal lateral foot. No evidence of abscess or purulence. After removal of Optifoam and alginate dressings, there is no evidence of transudate or exudate at the site of the fifth metatarsal head compared to previous examination at the time of debridement. Ulceration site remains 4.25 x 4.5 x 0.5 cm ulceration size however the character of the ulceration has improved substantially over the last 48 hours. Still has features of thickened callus third toe with noninflammatory, nonacute erosion into the germinal matrix consistent with subacute osteomyelitis of the distal phalanx third toe. Skin: Multiple excoriations bilateral lower extremities. 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 Chronic venous stasis changes of skin. Results & Data Vital Signs (Past 12 Hours) Vital Signs Temp Pulse Resp BP Pulse Ox O2 Del Method O2 Flow Rate 12/04/22 14:28 Nasal Cannula 4 12/04/22 07:46 36.7 C 72 16 140/79 96 Nasal Cannula 4
[2022-12-04] MEDS: ROSUVASTATIN CALCIUM 20 MG TAB PO SCH (21:12)
[2022-12-04] MEDS: MONTELUKAST SODIUM 10 MG TABLET PO SCH (21:12)
[2022-12-05] MEDS: LEVOTHYROXINE SODIUM 112 MCG TABLET PO SCH (05:56)
[2022-12-05] MEDS: traMADol HCL 50 MG TABLET PO PRN ×3 (07:35→21:02)
[2022-12-05] MEDS: INSULIN ASPART PER UNIT CHARGE SC SCH ×4 (08:39→21:05)
[2022-12-05] MEDS: LANTUS PER UNIT CHARGE SQ SCH ×2 (08:40→21:03)
[2022-12-05] MEDS: MULTIVITAMIN TAB PO SCH (08:42)
[2022-12-05] MEDS: ENOXAPARIN INJ 40 MG/0.4 ML SYR SQ SCH ×2 (08:42→21:04)
[2022-12-05] MEDS: FUROSEMIDE 20 MG TAB PO SCH (08:42)
[2022-12-05] MEDS: CHOLECALCIFEROL 1,000 UNITS 25 MCG TAB PO SCH (08:43)
[2022-12-05] MEDS: POLYETHYLENE (MIRALAX) 17 GM PACK PO SCH (08:43)
[2022-12-05] MEDS: cefTRIAXone SODIUM 2,000 MG in DEXTROSE 5% 50 ML IV SCH (11:39)
--- NOTE | 2022-12-05 18:29 | Hospitalist Progress Note ---
Date of Service December 05, 2022 Assessment & Plan (1) Diabetic ulcer of right foot associated with diabetes mellitus due to underlying condition, with fat layer exposed: Plan: 67yo female with a history of IDDM2, HTN, HLD, CAD, CKD3b, hypothyroidism, STEWART (on CPAP), cor pulmonale, OHS, and chronic respiratory failure (on 4L supplemental oxygen at home) admitted to [facility] on 11/30 for right lateral foot cellulitis and fifth toe ulcer. Right fifth toe ulcer with cellulitis; Osteomyelitis of Right 3rd Distal Phalanx Osteo per MRI on 12/01. With h/o MRSA cellulitis in 2021. However wound culture from ulcer +MSSA. No sepsis. S/p debridement of ulcer (to fat layer) on 12/02. - note: arterial US RLE non-specific and non-optimal due to body habitus - started on Dapto/Zosyn on admission, transitioned to Daptomycin monotherapy on 12/01, and downgraded to Ceftriaxone monotherapy on 12/02 - Ortho consulted for consideration of operative management of osteomyelitis of right third distal phalanx. - consulted ID for further antibiotic guidance -Blood cultures negative; wound culture positive for Staph aureus (history of MRSA on prior admission in June 2022; however, wound culture + MSSA) * Continue IV antibiotics: Ceftriaxone 2 g every 24 hours. (Day 5) * PRN Tylenol for pain, Tramadol for breakthrough pain (home med for patient) * Per Ortho: Recommend waffle boots while in bed, limit weightbearing of right foot. Continue dry daily dressing changes with Aquacel and Optifoam. Continue antibiotics per ID recommendations (successful nonoperative management of third toe distal phalanx will likely need extended duration of IV antibiotic treatment). Follow-up with Dr. Mayer at [facility] [place] x2 weeks ([phone]). * Wound care ordered twice daily * Plan on discharging to home with daily IV infusions of ceftriaxone 2 g x 6 weeks for osteomyelitis, per Ortho recommendations. Will deliver paper prescription to case management, who will initiate search for home health IV services. Chronic respiratory failure, STEWART, OHS Chronic need of 4L supplemental O2 via nasal cannula, and CPAP HS. Without exacerbation. * continue both as inpatient Chronic Cor Pulmonale; Morbid Obesity Last TTE in 06/2022 with EF 55-60%, moderately reduced RV systolic function, moderate RVH, moderate TR, RVSP >60mmHg. --> Likely due to STEWART/OHS. Currently euvolemic. * continue home Lasix * O2/CPAP as above * consider GLP-1 +/- consideration for weight loss surgery as outpatient - defer to PCP CAD S/p PCI with DESx1 to LCx in 2018 - ASA/Brilinta stopped by Cardiology in 2019, as patient had life-threatening GI bleed * resume home Rosuvastatin IDDM2 -Chronic; managed at home on regular insulin 50 units twice daily at home. -A1c 10.4 on admission. * Continue basal/bolus regimen while inpatient: SQ Lantus 22 units BID + Novolog * Consider addition of Metformin on discharge * Recommend outpatient discussion about GLP-1, as stated above Normocytic Anemia -Chronic, ~at baseline here, suspect due to CKD with possible contribution from iron deficiency. - iron 29, ferritin 178.5 but artificially elevated due to infection --> would consider repletion with IV iron in the future * trend CBC Vitamin D deficiency. -Level of 17.2 * Initiate D3 1000 units daily x3 months - continue after discharge * Recheck level in 3 months - per PCP HTN: controlled at this time, continue to monitor HLD: Continue home Crestor CKD3b: avoid nephrotoxins Hypothyroidism: continue home Synthroid FEN: heart healthy DM2 diet Code status: DNI (chest compressions OK, defibrillation OK) DVT ppx: patient has been refusing Lovenox - counseled on benefits/risks, patient expressed understanding, and still refusing Consults: orthopedics, wound care nurse Dispo: med/surg (2) Diabetes mellitus type 2 in obese: (3) Acute and chronic respiratory failure with hypoxia: (4) Anemia: (5) CAD S/P percutaneous coronary angioplasty: (6) Hypertension: (7) Hypokalemia: (8) Hypothyroidism: (9) Obesity hypoventilation syndrome: (10) Obstructive sleep apnea syndrome: (11) Morbid obesity with BMI of 50.0-59.9, adult: (12) Stage 3b chronic kidney disease: Admission and Anticipated Discharge Date Admission Date: November 30, 2022 Supervising Physician Co-Signing Physician Notes Attending attestation Pt seen and examined in concert with Dr. Pierre. In agreement with the documented findings as noted in the resident documentation with any exceptions or additions as noted here. Well controlled pain of the distal foot at the base of the 3rd digit and ongoing pain of the base of the 5th s/p debridement. On examination, S1/S2 nl RRR no MCG. CTAB. Abd NT/ND BS+ve 2+ pitting edema of the b/l LE. 2cm debrided wound with mild surrounding cellulitis of the base of the 5th digit, dry, calloused tissue of the distal 3rd digit which patient reports is unchanged from chronic. Dressing C/D/I R 5th toe ulcer, 3rd distal phalanx osteomyelitis - ortho, wound care consult - continue pain control and abx therapy to complete 6 wk course as noted, will co ntinue as outpatient and CM aware. Chronic hypoxic respiratory failure in the setting of STEWART - 4L at baseline, CPAP qHS CAD s/p PCI in 2018 - on statin therapy h/o GIB - off ASA/Brilinta Else see resident documentation as noted. Subjective Patient awake in bed on arrival this morning. Tolerated breakfast well. Reports pain of right foot from yesterday is now resolved. Wants to know about dispo planning. Otherwise has no complaints. Review of Systems Review of Systems: All systems reviewed & are unremarkable except as noted in HPI & below Physical Exam Physical Exam: General: Morbidly obese woman in no acute distress HEENT: PERRLA. Normal conjunctiva, anicteric sclera. Oropharynx normal. Respiratory: Normal respiratory effort, CTABL. Cardiovascular: RRR without murmurs, gallops, or rubs. No pedal edema. GI: Soft abdomen with normal bowel sounds heard on auscultation. Nontender x4 quadrants Neuro: Alert and oriented x3. MSK: Stage I/II ulcer at anterolateral edge of right foot immediately proximal to fifth toe covered with Band-Aid. Dressing is clean, dry, and intact. Area of erythema on lateral flexor surface of right foot, beyond previously drawn line. Skin is flaky and dry. Third toe on same right foot appears dried and necrotic . No tenderness to palpation. No ulcers at right heel as well. Results & Data Results & Data Vital Signs (Past 12 Hours) Vital Signs Temp Pulse Resp BP Pulse Ox O2 Del Method O2 Flow Rate 12/05/22 15:31 36.7 C 70 18 108/70 96 Room Air 12/05/22 07:47 Nasal Cannula 4 12/05/22 07:33 36.8 C 80 18 161/77 H 94 Nasal Cannula 4 (6) Hypertension Hypertension type: essential hypertension Qualified Code(s): I10 - Essential (primary) hypertension
[2022-12-05] MEDS: ROSUVASTATIN CALCIUM 20 MG TAB PO SCH (21:04)
[2022-12-05] MEDS: MONTELUKAST SODIUM 10 MG TABLET PO SCH (21:04)
[2022-12-06] MEDS: traMADol HCL 50 MG TABLET PO PRN ×4 (05:06→23:43)
[2022-12-06] MEDS: LEVOTHYROXINE SODIUM 112 MCG TABLET PO SCH (05:07)
[2022-12-06] MEDS: INSULIN ASPART PER UNIT CHARGE SC SCH ×4 (08:30→21:14)
[2022-12-06] MEDS: LANTUS PER UNIT CHARGE SQ SCH ×2 (08:31→21:14)
[2022-12-06] MEDS: ENOXAPARIN INJ 40 MG/0.4 ML SYR SQ SCH ×2 (08:35→20:03)
[2022-12-06] MEDS: POLYETHYLENE (MIRALAX) 17 GM PACK PO SCH (09:11)
[2022-12-06] MEDS: CHOLECALCIFEROL 1,000 UNITS 25 MCG TAB PO SCH (09:12)
[2022-12-06] MEDS: MULTIVITAMIN TAB PO SCH (09:12)
[2022-12-06] MEDS: FUROSEMIDE 20 MG TAB PO SCH (09:12)
[2022-12-06 09:34] LABS: BUN Creatinine Ratio 23.6 (10-20); Calcium 9.3 mg/dl (8.6-10.3); Creatinine Clr Calc Pharmacy 51.1 ml/min; Est GFR (African American) 43.4 ml/min; Est GFR (Non-African American) 37.5 ml/min; Magnesium 2.2 mg/dl (1.7-2.4); Phosphorus 3.9 mg/dl (2.5-4.9); Potassium 4.3 mmol/L (3.5-5.1)
--- NOTE | 2022-12-06 10:34 | XRay Report ---
XR knee RT 1 or 2V routine HISTORY: 67 years-old Female new knee pain, swelling, PMH knee frx acute right knee pain with soft t issue swelling COMPARISON: 07/08/2022 TECHNIQUE: 3 views of the right knee FINDINGS: Diffuse soft tissue swelling. Mild lateral with moderate medial and moderate to severe patellofemoral compartment osteoarthritis. No acute fracture or dislocation. Limited exam secondary to patient body habitus. Small joint effusion suggested. IMPRESSION: 1. Diffuse soft tissue swelling without acute fracture or dislocation identified. 2. Tricompartmental osteoarthritis. ACT 112: Negative or not required by law. The above report was generated using voice recognition software. It may contain grammatical, syntax o r spelling errors. Electronically signed by: Jose Katz M.D. 12/06/2022 10:33 AM
[2022-12-06] MEDS: cefTRIAXone SODIUM 2,000 MG in DEXTROSE 5% 50 ML IV SCH (11:30)
[2022-12-06] MEDS: ACETAMINOPHEN 500 MG TAB PO SCH (17:23)
--- NOTE | 2022-12-06 17:33 | Hospitalist Progress Note ---
Date of Service December 06, 2022 Assessment & Plan (1) Diabetic ulcer of right foot associated with diabetes mellitus due to underlying condition, with fat layer exposed: Plan: 67yo female with a history of IDDM2, HTN, HLD, CAD, CKD3b, hypothyroidism, STEWART (on CPAP), cor pulmonale, OHS, and chronic respiratory failure (on 4L supplemental oxygen at home) admitted to [facility] on 11/30 for right lateral foot cellulitis and fifth toe ulcer. Right fifth toe ulcer with cellulitis; Osteomyelitis of Right 3rd Distal Phalanx Osteo per MRI on 12/01. With h/o MRSA cellulitis in 2021. However wound culture from ulcer +MSSA. No sepsis. S/p debridement of ulcer (to fat layer) on 12/02. - note: arterial US RLE non-specific and non-optimal due to body habitus - started on Dapto/Zosyn on admission, transitioned to Daptomycin monotherapy on 12/01, and downgraded to Ceftriaxone monotherapy on 12/02 - Ortho consulted for consideration of operative management of osteomyelitis of right third distal phalanx. - Consulted ID for further antibiotic guidance -Blood cultures negative; wound culture positive for Staph aureus (history of MRSA on prior admission in June 2022; however, wound culture resulted + MSSA) * Continue IV antibiotics: Ceftriaxone 2 g every 24 hours. (Day 6) * Now scheduled Tylenol for pain (see below, acute right knee pain), Tramadol for breakthrough pain as at home. * Per Ortho: Recommend waffle boots while in bed, limit weightbearing of right foot. Continue dry daily dressing changes with Aquacel and Optifoam. Continue antibiotics per ID recommendations (successful nonoperative management of third toe distal phalanx will likely need extended duration of IV antibiotic treatment). Follow-up with Dr. Mayer at [facility] [place] x2 weeks ([phone]). * Wound care ordered twice daily * Plan on discharging to home with daily IV infusions of ceftriaxone 2 g x 6 weeks, with surveillance ESR, CRP labs to be completed at 6 weeks. Placed order for PICC line to be inserted prior to discharge. * A.m. ESR, CRP labs ordered to be completed prior to discharge. * Case management-patient to be set up with home health on Sunday, to be discharged 12/07, after afternoon dose of medication. Acute right knee pain -Occurred at rest, no inciting factors. -Ordered right knee XR: Negative for fracture or other acute process, the revealed some soft tissue swelling surrounding the knee medially. -Likely chronic osteoarthritis of right knee. * Pain control: Scheduled p.o. Tylenol 1000 mg every 8 hours, as needed tramadol as needed. Chronic respiratory failure, STEWART, OHS Chronic need of 4L supplemental O2 via nasal cannula, and CPAP HS. Without exacerbation. * continue both as inpatient Chronic Cor Pulmonale; Morbid Obesity Last TTE in 06/2022 with EF 55-60%, moderately reduced RV systolic function, moderate RVH, moderate TR, RVSP >60mmHg. --> Likely due to STEWART/OHS. Currently euvolemic. * continue home Lasix * O2/CPAP as above * consider GLP-1 +/- consideration for weight loss surgery as outpatient - defer to PCP CAD S/p PCI with DESx1 to LCx in 2018 - ASA/Brilinta stopped by Cardiology in 2019, as patient had life-threatening GI bleed * resume home Rosuvastatin IDDM2 -Chronic; managed at home on regular insulin 50 units twice daily at home. -A1c 10.4 on admission. * Continue basal/bolus regimen while inpatient: SQ Lantus 22 units BID + Novolog * Consider addition of Metformin on discharge * Recommend outpatient discussion about GLP-1, as stated above Normocytic Anemia -Chronic, ~at baseline here, suspect due to CKD with possible contribution from iron deficiency. - iron 29, ferritin 178.5 but artificially elevated due to infection --> would consider repletion with IV iron in the future * trend CBC Vitamin D deficiency -Level of 17.2 * Initiate D3 1000 units daily x3 months - continue after discharge * Recheck level in 3 months - per PCP HTN: controlled at this time, continue to monitor HLD: Continue home Crestor CKD3b: avoid nephrotoxins Hypothyroidism: continue home Synthroid FEN: heart healthy DM2 diet Code status: DNI (chest compressions OK, defibrillation OK) DVT ppx: patient has been refusing Lovenox - counseled on benefits/risks, cristo ibarra expressed understanding, and still refusing Consults: orthopedics, wound care nurse Dispo: med/surg (2) Diabetes mellitus type 2 in obese: (3) Acute and chronic respiratory failure with hypoxia: (4) Anemia: (5) CAD S/P percutaneous coronary angioplasty: (6) Hypertension: (7) Hypokalemia: (8) Hypothyroidism: (9) Obesity hypoventilation syndrome: (10) Obstructive sleep apnea syndrome: (11) Morbid obesity with BMI of 50.0-59.9, adult: (12) Stage 3b chronic kidney disease: Admission and Anticipated Discharge Date Admission Date: November 30, 2022 Supervising Physician Co-Signing Physician Notes Attending attestation Pt seen and examined in concert with Dr. Pierre. In agreement with the documented findings as noted in the resident documentation with any exceptions or additions as noted here. Well controlled pain of the distal foot at the base of the 3rd digit and ongoing pain of the base of the 5th s/p debridement. New onset pain in the right knee, medial > lateral which is acute on chronic for her. On examination, S1/S2 nl RRR no MCG. CTAB. Abd NT/ND BS+ve 2+ pitting edema of the b/l LE. Dry, flaking skin with some local irritation and drainage. 2cm debrided wound with mild surrounding cellulitis of the base of the 5th digit, dry, calloused tissue of the distal 3rd digit which patient reports is unchanged from chronic. Dressing C/D/I. Right knee with TTP along medial joint line and with movement, difficult to assess swelling 2/2 habitus. R 5th toe ulcer, 3rd distal phalanx osteomyelitis - ortho, wound care consult - continue pain control and abx therapy to complete 6 wk course as noted, will continue as outpatient and CM aware. Tricompartmental arthritis of the right knee - likely exacerbation of same, add q8h APAP and tramadol PRN, consider addition of morphine with inadequate pain control. Consider further evaluation/drainage with worsening. Xerosis cutis in the setting of b/l LE lymphedema - moisturizing and skin care Chronic hypoxic respiratory failure in the setting of STEWART - 4L at baseline, CPAP qHS CAD s/p PCI in 2018 - on statin therapy h/o GIB - off ASA/Brilinta Else see resident documentation as noted. Subjective Patient is awake and eating breakfast on arrival this morning. She reports acute onset severe medial right knee pain, which required tramadol overnight. She reports a prior history of hairline fracture at the knee. Knee pain occurred suddenly at rest. She denies moving or attempting to transfer her weight when it occurred. Pain is currently well controlled on tramadol. Review of Systems Review of Systems: All systems reviewed & are unremarkable except as noted in HPI & below Physical Exam Physical Exam: General: Morbidly obese woman in no acute distress HEENT: PERRLA. Normal conjunctiva, anicteric sclera. Oropharynx normal. Respiratory: Normal respiratory effort, CTABL. Cardiovascular: RRR without murmurs, gallops, or rubs. No pedal edema. GI: Soft abdomen with normal bowel sounds heard on auscultation. Nontender x4 quadrants Neuro: Alert and oriented x3. MSK: Stage I/II ulcer at anterolateral edge of right foot immediately proximal to fifth toe covered with Band-Aid. Dressing is clean, dry, and intact. Area of erythema on lateral flexor surface of right foot, beyond previously drawn line. Skin is flaky and dry. Third toe on same right foot appears dried and necrotic . No tenderness to palpation. No ulcers at right heel as well. Right knee appears swollen relative to the left, and is warm to the touch. No signs of erythema. Medial right knee is tender to mild/moderate palpation. No apparent limitations to flexor/extensor ROM. Results & Data Results & Data Vital Signs (Past 12 Hours) Vital Signs Temp Pulse Resp BP Pulse Ox O2 Del Method O2 Flow Rate 12/06/22 15:29 36.9 C 70 16 118/66 96 Nasal Cannula 4 12/06/22 08:04 Nasal Cannula 4 12/06/22 07:46 36.8 C 76 16 160/71 H 93 Nasal Cannula 4 Resident Activity Tracking Resident Involvement: Resident Care Provided Care Provided: Adult Hospital Medicine (6) Hypertension Hypertension type: essential hypertension Qualified Code(s): I10 - Essential (primary) hypertension
[2022-12-06] MEDS: ROSUVASTATIN CALCIUM 20 MG TAB PO SCH (20:02)
[2022-12-06] MEDS: MONTELUKAST SODIUM 10 MG TABLET PO SCH (20:02)
[2022-12-07] MEDS: ACETAMINOPHEN 500 MG TAB PO SCH ×2 (01:14→08:10)
[2022-12-07] MEDS: LEVOTHYROXINE SODIUM 112 MCG TABLET PO SCH (06:09)
[2022-12-07] MEDS: traMADol HCL 50 MG TABLET PO PRN ×2 (06:09→11:54)
--- NOTE | 2022-12-07 08:06 | Discharge Summary ---
Date of Service December 07, 2022 Admission HPI Per Admitting Provider 67yo female with a history of IDDM2, HTN, HLD, CAD, CKD, hypothyroidism, STEWART (on CPAP), OHS, and chronic respiratory failure (on 4L supplemental oxygen at home) presents with a two-day history of right 5th toe redness, swelling, and pain which has worsened over the past day. - patient first noticed right 5th toe pain/swelling/redness yesterday - patient has a home physical therapist who noted that there was an open ulceration at the right 5th toe today, concerning for rapid progression of a diabetic foot ulcer - patient has had pain but is still able to bear weight - reports her BSGs have been between 90 and 140 over the past few days Patient denies fever, chills, headache, CP, palpitations, SOB, abdominal pain, nausea, vomiting, dysuria, hematochezia, melena, back pain, lightheadedness, dizziness, numbness, tingling, weakness, or other symptoms. Denies recent illness and recent travel. Upon arrival, vitals were notable for elevated BP (170s/90s, has since improved to 105/58); no tachycardia, no tachypnea, patient afebrile, spO2 adequate on home 4L NC. Initial labs were notable for anemia (8.7), mild hypokalemia (3.3), elevated creatinine (1.54, baseline ~1.6), elevated ESR (84), and elevated CRP (8.6); no leukocytosis, platelets wnl, no electrolyte abnormalities, LFTs wnl, Tbili not elevated, covid PCR negative. In the ED, patient was started on dapto/zosyn and NSS@125mL/hr. Patient did have an episode of hypoglycemia in the ED (bsg fell to 40s) though this improved with soda and a sandwich; patient is feeling much better. EKG: NSR, no overt ischemic change XR right foot: no radiographic evidence of osteomyelitis; soft tissue ulcer is noted at the base of the fifth digit Surrogate decision-maker in case of an emergency: John Molina (cell: [phone]) Admission Exam Per Admitting Provider Constitutional: well-appearing, no acute distress HEENT: nasal cannula in place CV: heart sounds distant, extremities well-perfused, 2+ pitting LE edema bilaterally Resp: breath sounds distant MSK: right dorsal pedal pulse palpable, right foot sensation intact throughout Skin: subcentimeter open ulcer on lateral aspect of right 5th toe with surrounding erythema and edema, mildly tender to palpation, purulent/bloody exudate appreciated Neuro: alert, oriented, no focal neurologic deficit appreciated Principal Diagnosis Right foot cellulitis, osteomyelitis of third toe of right foot Discharge Exam General: Morbidly obese woman in no acute distress HEENT: PERRLA. Normal conjunctiva, anicteric sclera. Oropharynx normal. Respiratory: Normal respiratory effort, CTABL. Cardiovascular: RRR without murmurs, gallops, or rubs. No pedal edema. GI: Soft abdomen with normal bowel sounds heard on auscultation. Nontender x4 quadrants Neuro: Alert and oriented x3. MSK: Stage I/II ulcer at anterolateral edge of right foot immediately proximal to fifth toe covered with Band-Aid. Dressing is clean, dry, and intact. Area of erythema on lateral flexor surface of right foot, beyond previously drawn line. Skin is flaky and dry. Third toe on same right foot appears dried and necrotic . No tenderness to palpation. No ulcers at right heel as well. Right knee appears swollen relative to the left, and is warm to the touch. No signs of erythema. Medial right knee is tender to mild/moderate palpation. No apparent limitations to flexor/extensor ROM. Discharge Data Allergies Allergy/AdvReac Type Severity Reaction Status Date / Time Iodinated Contrast Media Allergy Severe Hives and Verified 11/30/22 17:34 kidney complications iodine Allergy Severe Hives and Verified 11/30/22 17:34 kidney complications shellfish derived Allergy Severe Anaphylaxis Verified 11/30/22 17:34 /Hives sulfite Allergy Severe HIVES AND Verified 11/30/22 17:34 THROAT CLOSES Consultations 11/30/22 17:49 ED Decision to Admit Stat 12/01/22 07:00 Consult Orthopedic Surgery Routine 12/03/22 08:19 Consult Infectious Diseases Routine 12/03/22 15:44 Consult [facility] chain dyer Routine 12/03/22 15:52 Consult [facility] chain dyer Routine Ordered Studies 11/30/22 19:22 US doppler leg [US arterial duplex LE RT] Routine 12/01/22 07:50 MRI Foot [MR foot RT w/o con] Urgent Diabetes Follow up Diabetes Follow-up Needed for HgbA1c >9% Hospital Course (1) Diabetic ulcer of right foot associated with diabetes mellitus due to underlying condition, with fat layer exposed: 67yo female with a history of IDDM2, HTN, HLD, CAD, CKD3b, hypothyroidism, STEWART (on CPAP), cor pulmonale, OHS, and chronic respiratory failure (on 4L supplemental oxygen at home) admitted to [facility] on 11/30 for right lateral foot cellulitis and fifth toe ulcer. Right fifth toe ulcer with cellulitis; Osteomyelitis of Right 3rd Distal Phalanx Osteo per MRI on 12/01. With h/o MRSA cellulitis in 2021. However wound culture from ulcer +MSSA. No sepsis. S/p debridement of ulcer (to fat layer) on 12/02. - note: arterial US RLE non-specific and non-optimal due to body habitus - started on Dapto/Zosyn on admission, transitioned to Daptomycin monotherapy on 12/01, and downgraded to Ceftriaxone monotherapy on 12/02 - Ortho consulted for consideration of operative management of osteomyelitis of right third distal phalanx. - Consulted ID for further antibiotic guidance -Blood cultures negative; wound culture positive for Staph aureus (history of MRSA on prior admission in June 2022; however, wound culture resulted + MSSA ) * Continue IV antibiotics: Ceftriaxone 2 g every 24 hours. (Day 6) * Now scheduled Tylenol for pain (see below, acute right knee pain), Tramadol for breakthrough pain as at home. * Per Ortho: Recommend waffle boots while in bed, limit weightbearing of right foot. Continue dry daily dressing changes with Aquacel and Optifoam. Continue antibiotics per ID recommendations (successful nonoperative management of third toe distal phalanx will likely need extended duration of IV antibiotic treatment). Follow-up with Dr. Mayer at [facility] x2 weeks ([phone]). * Wound care ordered twice daily * Plan on discharging to home with daily IV infusions of ceftriaxone 2 g x 6 weeks, with surveillance ESR, CRP labs to be completed at 6 weeks. PICC line to be inserted prior to discharge. * A.m. ESR, CRP labs ordered to be completed prior to discharge. Recheck x6 weeks. * Case management-patient to be set up with home health on Sunday, to be discharged 12/07, after afternoon dose of medication. Acute right knee pain -Occurred at rest, no inciting factors. -Ordered right knee XR: Negative for fracture or other acute process, the revealed some soft tissue swelling surrounding the knee medially. -Likely chronic osteoarthritis of right knee. * Pain control: Scheduled p.o. Tylenol 1000 mg every 8 hours, as needed tramadol as needed. Chronic respiratory failure, STEWART, OHS Chronic need of 4L supplemental O2 via nasal cannula, and CPAP HS. Without exacerbation. * continue both as inpatient Chronic Cor Pulmonale; Morbid Obesity Last TTE in 06/2022 with EF 55-60%, moderately reduced RV systolic function, moderate RVH, moderate TR, RVSP >60mmHg. --> Likely due to STEWART/OHS. Currently euvolemic. * continue home Lasix * O2/CPAP as above * consider GLP-1 +/- consideration for weight loss surgery as outpatient - defer to PCP CAD S/p PCI with DESx1 to LCx in 2018 - ASA/Brilinta stopped by Cardiology in 2019, as patient had life-threatening GI bleed * resume home Rosuvastatin IDDM2 -Chronic; managed at home on regular insulin 50 units twice daily at home. -A1c 10.4 on admission. * Continue basal/bolus regimen while inpatient: SQ Lantus 22 units BID + Novolog * Consider addition of Metformin on discharge * Recommend outpatient discussion about GLP-1, as stated above Normocytic Anemia -Chronic, ~at baseline here, suspect due to CKD with possible contribution from iron deficiency. - iron 29, ferritin 178.5 but artificially elevated due to infection --> would consider repletion with IV iron in the future * trend CBC Vitamin D deficiency -Level of 17.2 * Initiate D3 1000 units daily x3 months - continue after discharge * Recheck level in 3 months - per PCP (2) Diabetes mellitus type 2 in obese: (3) Acute and chronic respiratory failure with hypoxia: (4) Anemia: (5) CAD S/P percutaneous coronary angioplasty: (6) Hypertension: (7) Hypokalemia: (8) Hypothyroidism: (9) Obesity hypoventilation syndrome: (10) Obstructive sleep apnea syndrome: (11) Morbid obesity with BMI of 50.0-59.9, adult: (12) Stage 3b chronic kidney disease: Total Time Total Time Spent Total Time Spent (In Minutes): Please see attending attestation. Discharge Plan Discharge Items Patient Disposition: Home - Home Health Services Reason For Visit: R FOOT ULCER Discharge Diagnosis: Cellulitis of right foot, osteomyelitis of third toe of right foot. Activity: Per Instructions section Non-emergency contact: Primary Care Provider Call non-emergency contact if: you have any medication questions and your symptoms worsen Follow-up/Referrals: Aiyana Asencio MD [Primary Care Provider] - Diet: Regular Addtl Attending Provider Instructions: Dear Lucy, You came to the hospital due to pain in your right foot. Your evaluated by our physicians and found to have cellulitis or bacterial inflammation of your right foot, as well as osteomyelitis or an infection of your bone of your right third toe. We consulted our specialists both in orthopedics and infectious disease, and they recommended intravenous antibiotic therapy for 6-weeks. Because this requires home health assistance, we coordinated with case management to set this up before he left. Now that this has been completed, he ready to be discharged home. 1. We made no other changes to your medications. Continue to take them as instructed unless otherwise directed to by your primary care physician. 2. Continue to follow-up with wound care for management of the ulcer on the right foot. If you are unable to, have someone assist you and take special care to keep it dry and clean between dressings. If you are unable to, you should contact your primary care physician to make an appointment so that it can be evaluated and you can be referred to wound clinic that can properly manage your ulcer. It has been a pleasure to care for you here at [facility]. If you have any questions or concerns about your care, please contact us at [phone] Pending Studies at Discharge: No Stand-Alone Forms: My [facility], Smoking Cessation Medications and DC Order Prescriptions: Continued levalbuterol HCl 0.63 mg/3 mL solution for nebulization 0.63 mg inhalation TID PRN (Reason: shortness of breath or wheezing) Qty: 270 3RF (DME) BiPap Machine Misc See Rx Instructions .Route Qty: 1 0RF Rx Instructions: Max IPAP 14-Max pressure support 5,Min EPAP 6 Min Pressure support 5,AmeriGel-FullFaceMask -small nitroglycerin 0.4 mg tablet, sublingual 0.4 mg sublingual Q5M PRN (Reason: Chest Pain) Rx Instructions: do not exceed 3 doses per episode levalbuterol tartrate [Xopenex HFA] 45 mcg/actuation HFA aerosol inhaler 2 inh INHALATION Q4H PRN (Reason: Shortness Of Breath Or Wheezing) Qty: 15 5RF insulin regular hum U-500 conc 500 unit/mL (3 mL) insulin pen See Rx Instructions .ROUTE .COMPLEX Rx Instructions: inject 60 units with breakfast and lunch, inject 70 units with dinner--PER EXT MED HX. rosuvastatin 20 mg tablet 20 mg PO HS tramadol 50 mg tablet 50 mg PO Q6H PRN (Reason: Pain) montelukast 10 mg tablet 10 mg PO HS furosemide 20 mg tablet 20 mg PO DAILY levothyroxine 112 mcg tablet 112 mcg PO DAILY nystatin 100,000 unit/gram Ointment 1 applic EXT BID Qty: 15 0RF Rx Instructions: apply twice daily to groin folds Procrit 2,000 unit/mL solution 0 unit subcut DIRECTED PRN (Reason: LOW COUNT) Rx Instructions: PT UNSURE OF DOSE, ONLY GETS WHEN NEEDED. (DME) Oxygen Home Liters Per Minute See Rx Instructions .Route Qty: 4 0RF Rx Instructions: As directed Discharge Orders: Discharge Order (Routine); Ordered 12/07/22 Ordered By: Steph Pugh/Other Patient Handouts: Hypoglycemia (Low Blood Sugar), Managing Type 2 Diabetes, Cellulitis Dc Admission Data Admit Date/Time: 11/30/22 19:03 Attending Provider: Russell Chauhan Admit Provider: Marco A Graf Primary Care Provider: Aiyana Asencio Other Providers: Greg Stahl ; Cameron Mayer ; Franky Dowd ; Angela Rodriguez ; Cameron Simeon I. ; El Benavides II ; Iliana Diaz ; Miles Zendejas ; Dav Robertson ; Naeem De La Torre ; [facility] Other Interventions: Discharge Summary Assessment (RN) Last Done: 12/07/22 16:54 Supervising Physician Co-Signing Physician Notes Attending attestation Pt seen and examined in concert with Dr. Pierre. In agreement with the docum ented findings as noted in the resident documentation with any exceptions or additions as noted here. Well controlled pain of the distal foot at the base of the 3rd digit and ongoing pain of the base of the 5th s/p debridement. Right knee, medial > lateral pain is controlled with chronic tramadol, APAP On examination, S1/S2 nl RRR no MCG. CTAB. Abd NT/ND BS+ve 2+ pitting edema of the b/l LE. Dry, flaking skin with some local irritation and drainage. 2cm debrided wound with mild surrounding cellulitis of the base of the 5th digit, dry, calloused tissue of the distal 3rd digit which patient reports is unchanged from chronic. Dressing C/D/I. Right knee with TTP along medial joint line and with movement, difficult to assess swelling 2/2 habitus. R 5th toe ulcer, 3rd distal phalanx osteomyelitis - ortho, wound care consult - IV ceftriaxone therapy to complete 6 wk course and f/u with ortho. Pt reports previous issue with rec care @ wound care clinic 2/2 habitus and insufficient equipment at [facility] site. Requested CM address this if able to improve outcome. Tricompartmental arthritis of the right knee - likely exacerbation of same - q8h APAP and tramadol PRN Xerosis cutis in the setting of b/l LE lymphedema - moisturizing and skin care Chronic hypoxic respiratory failure in the setting of STEWART - 4L at baseline, CPAP qHS CAD s/p PCI in 2018 - on statin therapy h/o GIB - off ASA/Brilinta Else see resident documentation as noted. Total attending physician time spent with this patient's care on the day of discharge: 40 minutes. Resident Activity Tracking Resident Involvement: Resident Care Provided Care Provided: Adult Hospital Medicine
[2022-12-07] MEDS: FUROSEMIDE 20 MG TAB PO SCH (08:08)
[2022-12-07] MEDS: CHOLECALCIFEROL 1,000 UNITS 25 MCG TAB PO SCH (08:08)
[2022-12-07] MEDS: ENOXAPARIN INJ 40 MG/0.4 ML SYR SQ SCH (08:08)
[2022-12-07] MEDS: MULTIVITAMIN TAB PO SCH (08:09)
[2022-12-07] MEDS: POLYETHYLENE (MIRALAX) 17 GM PACK PO SCH (08:12)
[2022-12-07] MEDS: INSULIN ASPART PER UNIT CHARGE SC SCH ×2 (09:42→12:59)
[2022-12-07] MEDS: LANTUS PER UNIT CHARGE SQ SCH (09:42)
--- NOTE | 2022-12-07 10:00 | XRay Report ---
XR chest 1V portable HISTORY: 67 years-old Female picc line placement to right arm status post placement of a right-sided PICC COMPARISON: 06/14/2021 TECHNIQUE: AP view of the chest FINDINGS: Cardiac silhouette is enlarged. A right-sided PICC is present with distal tip terminating in expected location of the mid to inferior SVC. No pneumothorax, or large pleural effusion. Pulmonary vascular congestion. Unchanged right hemidiaphragmatic elevation. Bones appear grossly intact. IMPRESSION: Status post placement of a right-sided PICC with distal tip in the expected location of t he mid to inferior SVC. No postprocedural pneumothorax. ACT 112: Negative or not required by law. The above report was generated using voice recognition software. It may contain grammatical, syntax o r spelling errors. Electronically signed by: Jose Katz M.D. 12/07/2022 9:59 AM
[2022-12-07 11:07] LABS: BUN Creatinine Ratio 22.4 (10-20); C Reactive Protein 2.91 mg/dl (0-0.5); Calcium 9.1 mg/dl (8.6-10.3); Creatinine Clr Calc Pharmacy 45.7 ml/min; Est GFR (Non-African American) 32.8 ml/min; Magnesium 2.2 mg/dl (1.7-2.4); Potassium 4.3 mmol/L (3.5-5.1)
[2022-12-07] MEDS: cefTRIAXone SODIUM 2,000 MG in DEXTROSE 5% 50 ML IV SCH (11:55)
== END 2022-12-07 17:30 | disposition home health service (06) | DRG 623 ==
LOC: ED 16:00 → SUATTDRO 19:03 → 3N 19:03

== ENCOUNTER 2023-07-05 16:03 | Inpatient (IN) ==
--- NOTE | 2023-07-05 16:56 | XRay Report ---
XR foot RT min 3V routine HISTORY: 67 years-old Female redness, swelling, osteomyelitis 3rd toe acute pain and swelling of the right foot COMPARISON: 11/30/2022 TECHNIQUE: 3 views of the right foot FINDINGS: Moderate soft tissue swelling. Demineralized appearance of the bones. Degenerative spurring of the ca lcaneus. Soft tissue ulcer of the distal third toe with bony erosion of the third distal phalangeal t uft. IMPRESSION: Third digit ulcer with third distal phalangeal osteomyelitis. ACT 112: Negative or not required by law. The above report was generated using voice recognition software. It may contain grammatical, syntax o r spelling errors. Electronically signed by: Jose Katz M.D. 07/05/2023 4:55 PM
[2023-07-05 17:59] LABS: Basophils # (auto) 0.05 K/uL (0.00-0.20); Basophils % (auto) 0.8 %; Eosinophils # (auto) 0.44 K/uL (0.00-0.50); Eosinophils % (auto) 7.2 %; Hematocrit (blood only) 31.7 % (37.0-47.0); Hemoglobin 9.3 g/dl (12.0-16.0); Immature Granulocytes # (auto) 0.02 K/uL (0.01-0.20); Immature Granulocytes % (auto) 0.3 %; Lymphocytes # (auto) 0.96 K/uL (1.20-3.40); Lymphocytes % (auto) 15.8 %; Mean Corpuscular Hemoglobin 24.5 pg (25.0-34.0); Mean Corpuscular Hgb Conc 29.3 g/dL (32.0-36.0); Mean Corpuscular Volume 83.4 fL (80.0-100.0); Mean Platelet Volume 10.9 fL (9.4-12.4); Monocytes # (auto) 0.62 K/uL (0.11-0.59); Monocytes % (auto) 10.2 %; Neutrophils % (auto) 65.7 %; Platelet Count 218 K/uL (130-400); RDW Coefficient of Variation 23.4 % (11.5-14.5); RDW Standard Deviation 69.8 fL (36.4-46.3); White Blood Count 6.09 K/ul (4.8-10.8)
[2023-07-05 18:16] LABS: Albumin Globulin Ratio 0.7 (0.9-2); Albumin Level 3.2 gm/dl (3.4-5.0); BUN Creatinine Ratio 14.7 (10-20); Bilirubin,Total 1.2 mg/dl (0.2-1.0); C Reactive Protein 2.88 mg/dl (0-0.5); Calcium 8.8 mg/dl (8.6-10.3); Creatinine Clr Calc Pharmacy 50.4 ml/min; Est GFR (African American) 37.4 ml/min; Est GFR (Non-African American) 32.3 ml/min; Globulin 4.8 gm/dl (2.5-4.0); Potassium 3.3 mmol/L (3.5-5.1)
[2023-07-05 18:23] LABS: Anisocytosis Present; Polychromasia 1+
[2023-07-05] MEDS ORDERED: cefTRIAXone SODIUM 2,000 MG/50 ML BAG IV STA (19:27)
--- NOTE | 2023-07-05 20:01 | XRay Report ---
SINGLE VIEW CHEST CLINICAL HISTORY: Edema. FINDINGS: An AP, portable, upright chest radiograph is compared to study dated 12/07/2022 and correlat ed with chest CT dated 07/19/2020. The examination is degraded by portable technique comment large paresh dy habitus, and apical lordotic positioning. The heart is enlarged. The pulmonary vasculature is not congested. Chronic interstitial thickening is similar to previous. The lungs and pleural spaces are clear noting bibasilar atelectasis. No pneumothorax is seen. The skeletal structures are osteopenic. The bony thorax is grossly intact. IMPRESSION: Cardiomegaly with no acute cardiopulmonary abnormality identified. ACT 112: Negative or not required by law. Electronically signed by: Puneet Castañeda M.D. 07/05/2023 7:58 PM
--- NOTE | 2023-07-05 20:33 | Emergency Department Note ---
Impression & Plan Osteomyelitis of third toe of right foot, Cellulitis of right foot, Type 2 diabetes mellitus ED Provider Note CHIEF COMPLAINT: "My middle toe" HISTORY OF PRESENT ILLNESS: This 67-year-old female diabetic patient presents to the emergency department via ambulance for evaluation of "my middle toe" the patient states that she woke up today and noticed that the right middle toe was red and swollen. This is a new finding, despite her known history of osteomyelitis in this toe. The patient was scheduled for an amputation about a month ago. She states that she "swelled up" and needed to have her Lasix doubled for 3 days. The edema seemed to improve, but her surgery was never rescheduled. The patient states she contacted her telephone maintenance mechanic today and was told to call 911 to "find out what is going on". The patient states that she has not had a fever or chills. No nausea or vomiting. No body aches. She has not been currently taking any medication for her osteomyelitis. She was on 6 weeks of IV Rocephin through PICC line after her admission in November earlier this year. She states she has not had problems with the toe since that time, but is concerned about the redness and swelling. REVIEW OF SYSTEMS: A 10 system review of systems was performed with positives and pertinent negatives listed in the history of present illness. All other systems were reviewed and are negative. ALLERGIES: Contrast dye, iodine, shellfish, sulfa PHYSICAL EXAM: VITALS: Vitals are noted on the nurse's note and reviewed by myself. Vital signs stable. GENERAL: This is a 67-year-old female, in no acute distress, nondiaphoretic, well-developed well-nourished. SKIN: Bilateral lower extremity edema. The right middle toe is erythematous and edematous. There is an ulcer on the distal aspect of the toe with no active bleeding or discharge. There is no tenderness to palpation. The skin was without rashes, erythema, edema, or bruising. There is no tenting of the skin. Capillary refill less than 2 seconds. HEAD: Normocephalic atraumatic. EYES: Conjunctivae without injection, sclerae without icterus. NECK: Supple without nuchal rigidity. No lymphadenopathy. No JVD. HEART: Regular rate and rhythm without murmurs gallops or rubs. LUNGS: Clear to auscultation bilaterally without wheezes, rales or rhonchi. No retractions or accessory muscle use. MUSCULOSKELETAL: No muscle atrophy, erythema, or edema noted. Full range of motion without joint tenderness in all extremities. No tenderness to palpation. Strength 5/5 throughout. NEURO: Patient was alert and oriented to person place and time. Normal sensation to light and sharp touch. No focal neurological deficits. An order was placed for continuous site monitor. The monitor showed a normal sinus rhythm at a ventricular rate of 84 bpm, per my interpretation. EMERGENCY DEPARTMENT COURSE: The patient was seen and evaluated as above. The patient presents by ambulance for concern for progressing redness and swelling of the right middle toe. She states it was not red or swollen yesterday and came on suddenly this morning. She was to have this toe amputated due to known history of osteomyelitis, but was referred to the emergency department due to uncertainty regarding the acute infection. IV access was obtained, labs were drawn. There was no leukocytosis. Anemia with a hemoglobin of 9.3. No thrombocytopenia. Creatinine elevated 1.63. Blood glucose 111. C-reactive protein elevated 2.88. BNP mildly elevated at 310. Electrolytes and hepatic function without acute abnormality. Blood cultures are pending. Lactic acid 1.1. X-ray of the right foot is consistent with osteomyelitis of the right middle toe. I did discuss the case with my attending physician. Given the patient's history of edema and CHF, did not administer IV fluids. Patient was medicated with IV ceftriaxone and vancomycin after review of previous medical records and recommendation for ceftriaxone for 6 weeks as an outpatient through PICC line in November. I discussed the case with Dr. Mayer. He was agreeable to see this patient in consultation and consider surgery for probable amputation of the right middle toe. He did also offer to follow-up with the patient as an outpatient if she desires. I discussed my conversation with Dr. Mayer with the patient at bedside. The patient is concerned that she is unable to ambulate or even sit without assistance. She is unable to get into or out of a car. She is unable to follow-up as an outpatient for appointments or procedures. She is concerned that the toe is now red and swollen and would like to be admitted to have this taken care of. I discussed the case with Dr. Blunt, [facility] hospitalist physician. He did agree to see and evaluate the patient. Please see hospitalist dictation regarding ongoing management of this patient. Differential diagnosis includes Cellulitis, osteomyelitis, abscess, MRSA infection, DVT, necrotizing fasciitis, dermatitis, drug eruption, allergic reaction, as well as other pathologies. I attest that I have personally reviewed the patient's current medication list. Patient was found to have normal blood pressure on screening and does not require follow-up. The chart was completed utilizing [employer] Speech voice recognition software. Grammatical errors, random word insertions, pronoun errors, and incomplete sentences are an occasional consequence of this system due to software limitations, ambient noise, and hardware issues. Any formal questions or concerns about the content, text, or information contained within the body of this dictation should be directly addressed to the provider for clarification. Past Med/Surg History Medical History ARDS (adult respiratory distress syndrome) COVID-19 Chest pain Lymphedema Shortness of breath Obstructive sleep apnea syndrome Proteinuria Stage 3b chronic kidney disease Secondary pulmonary hypertension Obesity hypoventilation syndrome Morbid obesity due to excess calories Lymphedema of lower extremity Vitamin D deficiency Stage 3b chronic kidney disease Diarrhea Breathlessness Hypothyroidism Hypertension SOB (shortness of breath) Chronic respiratory failure 1 to 2 L oxygen Morbid obesity CAD S/P percutaneous coronary angioplasty Coronary artery disease Anemia Dyspnea CHF (congestive heart failure) Acute respiratory failure with hypoxia Thyroid cancer Diverticulitis GERD (gastroesophageal reflux disease) Diabetes Surgical History H/O endoscopy H/O partial thyroidectomy History of colonoscopy History of percutaneous coronary intervention Family History Other Diabetes Heart disease No pertinent family history Social History Smoking Status: Never smoker Second Hand Exposure: No; Do You Dip or Chew Tobacco: No; Hx Alcohol Use: No Hx Substance Use: No Preferred Language: Ukrainian 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 Ability: Effective Pigment Mixer Required: No Beliefs That Will Affect Care: None marital status: Current Living Situation: Spouse Current Living Situation Comment: current occupational status: disabled Feels Safe at Home: Yes Diet: other Diet Comment: low carb high protein "like a gastirc bypass diet" states seeing nutrionist caffeine: Yes during the past year weight has: increased > 10 lbs Physical Activity Frequency: Does not Exercise Do you think of yourself as: straight/heterosexual Gender Identity: Female Assistive Devices: CPAP, Oxygen - Continuous, Walker and Wheelchair Allergies Allergies Allergy/AdvReac Type Severity Reaction Status Date / Time Iodinated Contrast Media Allergy Severe Hives and Verified 07/05/23 19:15 kidney complications iodine Allergy Severe Hives and Verified 07/05/23 19:15 kidney complications shellfish derived Allergy Severe Anaphylaxis Verified 07/05/23 19:15 /Hives sulfite Allergy Severe HIVES AND Verified 07/05/23 19:15 THROAT CLOSES Home Meds Home Medications Medication Instructions Recorded Confirmed rosuvastatin 20 mg tablet 20 mg PO HS 02/26/19 07/05/23 tramadol 50 mg tablet 50 mg PO Q6H PRN Pain 05/17/20 07/05/23 montelukast 10 mg tablet 10 mg PO HS 09/27/20 07/05/23 nitroglycerin 0.4 mg sublingual 0.4 mg sublingual Q5M PRN Chest 11/30/20 07/05/23 tablet Pain epoetin milo 2,000 unit/mL 0 unit subcut DIRECTED PRN LOW 08/26/21 07/05/23 injection solution (Procrit) COUNT furosemide 20 mg tablet 20 mg PO DAILY 07/05/22 07/05/23 levothyroxine 112 mcg tablet 0 mcg PO DAILY 07/05/22 07/05/23 insulin regular hum U-500 conc 500 See Rx Instructions .Route .COMPLEX 02/13/23 07/05/23 unit/mL(3 mL) subcut pen ferrous sulfate 325 mg (65 mg 325 mg PO QAM 07/05/23 07/05/23 iron) tablet fluticasone 250 mcg-salmeterol 50 1 inh inhalation BID PRN 07/05/23 07/05/23 mcg/dose blistr powdr for wheezing/sob inhalation (Advair Diskus) multivitamin 1 tab PO QAM 07/05/23 07/05/23 Previous Rx's Medication Instructions Recorded levalbuterol tartrate 45 2 inh inhalation Q4H PRN Shortness 11/30/20 mcg/actuation aerosol inhaler Of Breath Or Wheezing #15 grams (Xopenex HFA) levalbuterol HCl 0.63 mg/3 mL 0.63 mg (3 mL) inhalation TID PRN 01/31/21 solution for nebulization shortness of breath or wheezing #270 mL Oxygen Home #4 L 06/17/21 nystatin 100,000 unit/gram topical 1 applic EXT BID #15 grams 07/09/22 ointment BiPap Machine #1 ea 11/27/22 Results & Data (ED) Vital Signs Vital Signs - 24 hr 07/05/23 16:15 07/05/23 17:58 07/05/23 19:48 Temperature 36.9 C Temperature Source Oral Pulse Rate 84 80 82 Respiratory Rate 20 16 Respiratory Effort / Characteristics Non-Labored Spontaneous Respiratory Depth Normal Blood Pressure 135/89 130/76 Blood Pressure Mean 104 94 Blood Pressure Position Sitting Pulse Oximetry 99 100 Oxygen Delivery Method Room Air Room Air Sepsis Recent Fever Within 48 Hours No Sepsis New/Unexplained Change in Mental Status No Sepsis Action Taken by Nursing No Action Required 07/05/23 20:00 07/05/23 20:30 07/05/23 21:00 Temperature Temperature Source Pulse Rate 80 81 84 Respiratory Rate 17 16 20 Respiratory Effort / Characteristics Respiratory Depth Blood Pressure 139/67 123/71 157/82 H Blood Pressure Mean 91 88 107 Blood Pressure Position Pulse Oximetry 99 99 Oxygen Delivery Method Room Air Room Air Sepsis Recent Fever Within 48 Hours Sepsis New/Unexplained Change in Mental Status Sepsis Action Taken by Nursing Laboratory Data 07/05/23 17:36 07/05/23 17:36 Lab Results 07/05/23 07/05/23 07/05/23 Range/Units 17:36 19:45 20:31 WBC 6.09 (4.8-10.8) K/ul RBC 3.80 L (4.20-5.40) M/uL Hgb 9.3 L (12.0-16.0) g/dl Hct 31.7 L (37.0-47.0) % MCV 83.4 (80.0-100.0) fL MCH 24.5 L (25.0-34.0) pg MCHC 29.3 L (32.0-36.0) g/dL RDW Std Deviation 69.8 H (36.4-46.3) fL RDW Coeff of Cherelle 23.4 H (11.5-14.5) % Plt Count 218 (130-400) K/uL MPV 10.9 (9.4-12.4) fL Immature Gran % (Auto) 0.3 % Neut % (Auto) 65.7 % Lymph % (Auto) 15.8 % Sullivan % (Auto) 10.2 % Eos % (Auto) 7.2 % Baso % (Auto) 0.8 % Neut # (Auto) 4.00 (1.40-6.50) K/uL Lymph # (Auto) 0.96 L (1.20-3.40) K/uL Sullivan # (Auto) 0.62 H (0.11-0.59) K/uL Eos # (Auto) 0.44 (0.00-0.50) K/uL Baso # (Auto) 0.05 (0.00-0.20) K/uL Immature Gran # (Auto) 0.02 (0.01-0.20) K/uL Polychromasia 1+ Anisocytosis Present Sodium 138 (136-145) mmol/L Potassium 3.3 L (3.5-5.1) mmol/L Chloride 102 (98-107) mmol/L Carbon Dioxide 29 (21-32) mmol/L Anion Gap 7 (3-11) BUN 24 H (6-23) mg/dl Creatinine 1.63 H (0.6-1.2) mg/dl Est Cr Clr Drug Dosing 50.4 ml/min Est GFR ( Amer) 37.4 ml/min Est GFR (Non-Af Amer) 32.3 ml/min BUN/Creatinine Ratio 14.7 (10-20) Glucose 111 H (70-99(Fasting)) mg/dl POC Glucose 77 (70-99) mg/dl Lactate 1.1 (0.4-2.0) mmol/L Calcium 8.8 (8.6-10.3) mg/dl Total Bilirubin 1.2 H (0.2-1.0) mg/dl AST 15 (13-39) U/L ALT 7 (7-52) U/L Alkaline Phosphatase 88 (34-104) U/L C-Reactive Protein 2.88 H (0-0.5) mg/dl B-Natriuretic Peptide 310 H (0-100) pg/ml Total Protein 8.0 (6.0-8.3) gm/dl Albumin 3.2 L (3.4-5.0) gm/dl Globulin 4.8 H (2.5-4.0) gm/dl Albumin/Globulin Ratio 0.7 L (0.9-2) 07/05/23 07/05/23 Range/Units 22:19 22:21 WBC (4.8-10.8) K/ul RBC (4.20-5.40) M/uL Hgb (12.0-16.0) g/dl Hct (37.0-47.0) % MCV (80.0-100.0) fL MCH (25.0-34.0) pg MCHC (32.0-36.0) g/dL RDW Std Deviation (36.4-46.3) fL RDW Coeff of Cherelle (11.5-14.5) % Plt Count (130-400) K/uL MPV (9.4-12.4) fL Immature Gran % (Auto) % Neut % (Auto) % Lymph % (Auto) % Sullivan % (Auto) % Eos % (Auto) % Baso % (Auto) % Neut # (Auto) (1.40-6.50) K/uL Lymph # (Auto) (1.20-3.40) K/uL Sullivan # (Auto) (0.11-0.59) K/uL Eos # (Auto) (0.00-0.50) K/uL Baso # (Auto) (0.00-0.20) K/uL Immature Gran # (Auto) (0.01-0.20) K/uL Polychromasia Anisocytosis Sodium (136-145) mmol/L Potassium (3.5-5.1) mmol/L Chloride (98-107) mmol/L Carbon Dioxide (21-32) mmol/L Anion Gap (3-11) BUN (6-23) mg/dl Creatinine (0.6-1.2) mg/dl Est Cr Clr Drug Dosing ml/min Est GFR ( Amer) ml/min Est GFR (Non-Af Amer) ml/min BUN/Creatinine Ratio (10-20) Glucose (70-99(Fasting)) mg/dl POC Glucose 64 L* 67 L* (70-99) mg/dl Lactate (0.4-2.0) mmol/L Calcium (8.6-10.3) mg/dl Total Bilirubin (0.2-1.0) mg/dl AST (13-39) U/L ALT (7-52) U/L Alkaline Phosphatase (34-104) U/L C-Reactive Protein (0-0.5) mg/dl B-Natriuretic Peptide (0-100) pg/ml Total Protein (6.0-8.3) gm/dl Albumin (3.4-5.0) gm/dl Globulin (2.5-4.0) gm/dl Albumin/Globulin Ratio (0.9-2) Administered Medications Discontinued Medications Ceftriaxone Sodium (Rocephin) 2,000 mg in 50 mls @ 100 mls/hr IV NOW STA Stop: 07/05/23 19:56 Last Infusion: 07/05/23 20:31 Dose: Infused Documented By: Admin: 07/05/23 19:43 Dose: 100 mls/hr Documented By: CINTIA Imaging Data Radiologist's Impression: Foot X-Ray 07/05/23 16:32 XR foot RT min 3V routine HISTORY: 67 years-old Female redness, swelling, osteomyelitis 3rd toe acute pain and swelling of the right foot COMPARISON: 11/30/2022 TECHNIQUE: 3 views of the right foot FINDINGS: Moderate soft tissue swelling. Demineralized appearance of the bones. Degenerative spurring of the calcaneus. Soft tissue ulcer of the distal third toe with bony erosion of the third distal phalangeal tuft. IMPRESSION: Third digit ulcer with third distal phalangeal osteomyelitis. ACT 112: Negative or not required by law. The above report was generated using voice recognition software. It may contain grammatical, syntax or spelling errors. Electronically signed by: Jose Katz M.D. 07/05/2023 4:55 PM Chest X-Ray 07/05/23 19:27 SINGLE VIEW CHEST CLINICAL HISTORY: Edema. FINDINGS: An AP, portable, upright chest radiograph is compared to study dated 12/07/2022 and correlated with chest CT dated 07/19/2020. The examination is degraded by portable technique comment large body habitus, and apical lordotic positioning. The heart is enlarged. The pulmonary vasculature is not congested. Chronic interstitial thickening is similar to previous. The lungs and pleural spaces are clear noting bibasilar atelectasis. No pneumothorax is seen. The skeletal structures are osteopenic. The bony thorax is grossly intact. IMPRESSION: Cardiomegaly with no acute cardiopulmonary abnormality identified. ACT 112: Negative or not required by law. Electronically signed by: Puneet Castañeda M.D. 07/05/2023 7:58 PM Discharge Plan Visit Data Chief Complaint: Infection Stated Complaint: R FOOT/TOE PAIN ED Provider: Miles Baez ED Midlevel Provider: Emily Jarquin Discharge Problem: Osteomyelitis of third toe of right foot, Cellulitis of right foot, Type 2 diabetes mellitus Patient Disposition: Admitted As Inpatient Forms Stand Alone Forms: [facility] Prescriptions Prescriptions: No Action levalbuterol HCl 0.63 mg/3 mL solution for nebulization 0.63 mg inhalation TID PRN (Reason: shortness of breath or wheezing) Qty: 270 3RF (DME) BiPap Machine Misc See Rx Instructions .Route Qty: 1 0RF Rx Instructions: Max IPAP 14-Max pressure support 5,Min EPAP 6 Min Pressure support 5,AmeriGel-FullFaceMask -small nitroglycerin 0.4 mg tablet, sublingual 0.4 mg sublingual Q5M PRN (Reason: Chest Pain) Rx Instructions: do not exceed 3 doses per episode levalbuterol tartrate [Xopenex HFA] 45 mcg/actuation HFA aerosol inhaler 2 inh INHALATION Q4H PRN (Reason: Shortness Of Breath Or Wheezing) Qty: 15 5RF insulin regular hum U-500 conc 500 unit/mL (3 mL) insulin pen See Rx Instructions .ROUTE .COMPLEX Rx Instructions: inject 50 units with breakfast and lunch.--PER EXT MED HX. rosuvastatin 20 mg tablet 20 mg PO HS tramadol 50 mg tablet 50 mg PO Q6H PRN (Reason: Pain) montelukast 10 mg tablet 10 mg PO HS furosemide 20 mg tablet 20 mg PO DAILY levothyroxine 112 mcg tablet 0 mcg PO DAILY Rx Instructions: Does not remember which day she takes 56mcg. Takes 112mcg 6 days a week and 56mcg one day a week. nystatin 100,000 unit/gram Ointment 1 applic EXT BID Qty: 15 0RF Rx Instructions: apply twice daily to groin folds multivitamin Tablet 1 tab PO QAM fluticasone propion-salmeterol [Advair Diskus] 250-50 mcg/dose blister with device 1 inh INHALATION BID PRN (Reason: wheezing/sob) ferrous sulfate 325 mg (65 mg iron) tablet 325 mg PO QAM Procrit 2,000 unit/mL solution 0 unit subcut DIRECTED PRN (Reason: LOW COUNT) Rx Instructions: PT UNSURE OF DOSE, ONLY GETS WHEN NEEDED. (DME) Oxygen Home Liters Per Minute See Rx Instructions .Route Qty: 4 0RF Rx Instructions: As directed Referrals Referrals: Melissa Camilo PA-C [Primary Care Provider] -
--- NOTE | 2023-07-05 21:02 | History & Physical Report ---
Date of Service July 05, 2023 Assessment & Plan (1) Osteomyelitis of third toe of right foot: (2) Cellulitis of right foot: (3) Chronic acquired lymphedema: (4) Pressure ulcer: (5) Acute respiratory failure with hypoxia: (6) Anemia: (7) Chronic respiratory failure: (8) CKD (chronic kidney disease): (9) Diabetes: (10) Hypokalemia: Plan A 67 yo F w/ PMHx of T2DM, osteomyelitis of r. third toe, cellulitis of r. foot, GERD, anxiety, cellulitis, unstable angina, CKD-stage 3b, CAD (s/p PCI), HTN, STEWART, AVM (GI tract), among other conditions, who presented to the emergency department with new onset swelling and erythema of her 3rd toe (r. foot) and concerns for recurrent osteomyelitis. Additionally patient had point tenderness in her r. lower back with concerns for pressure ulcers in various stages of development. 1. Recurrent osteomyelitis, 3rd toe, r. foot - Foot X-ray: "Third digit ulcer with third distal phalangeal osteomyelitis." - pt did not want MRI due to size restrictions of equipment - Patient treated w/ 6-wk course of Rocephin as outpt w/ PICC line back in November for osteomyelitis, had appt with business trainer for amputation sometime following completion of Abx course, but was not cleared by cardiology in pre-op appt due to significantly increased leg edema at the time. - Blood Cx pending - ceftriaxone, 2000 mg, IV, 24 hrs given once - vancomycin, 20 mg/kg body wgt, IV, given once - inpt team and orthopedics can determine what daily antibiotics to give 2. Pressure ulcers, back - two ulcers noted in r. lower back --> one looked chronic, very deep, with probable decreased sensation, less painful; second looked like developing ulcer, more painful - wound consult placed 3. Chronic lymphedema - pt has graded pressure stocking to help manage - r. leg has become progressively worse for last few months 4. CHF - chest X-ray noted cardiomegaly w/out any acute cardiac findings - continue Furosemide, 20 mg, PO, daily - pre-op consult put in to cardiology to clear for surg with podiatry/orthopedics 5. Anemia (chronic renal failure and iron-deficiency anemia) - Hgb 9.3 upon admission, trend CBC - continue home meds: Procrit, ferrous sulfate 6. T2DM - 120 - 160 mg/dL range; 20 correction factor; 10 carb ratio for Aspart - 5 units, BID Glargine - pharm consult put in to manage pt's T2DM 7. Hx of CAD - continue rosuvastatin, nitroglycerin as needed 8. chronic resp failure/obesity hypoventilation syndrome - continue Advair, continue levalbuterol 9. STEWART on CPAP - continue CPAP while in hospital 10. hypokalemia - 3.3 on admission, trend CMP or BMP History of Present Illness Chief Complaint: infected 3rd toe (r. foot), recurrent osteomyelitis Primary Care Provider: Melissa Camilo PA-C A 67 yo F w/ PMHx of T2DM, osteomyelitis of r. third toe, cellulitis of r. foot, GERD, anxiety, cellulitis, unstable angina, CKD-stage 3b, CAD (s/p PCI), HTN, STEWART, presented to the emergency department via ambulance for evaluation of "my middle toe" the patient states that she woke up today and noticed that the right middle toe was red and swollen, felt pain. This is a new finding, despite her known history of osteomyelitis in this toe. The patient was scheduled for an amputation about a month ago but was not cleared by cardiology to receive the surgery, as she had increasing edema and needed to have her Lasix doubled for 3 days. The edema seemed to improve, but her surgery was never rescheduled. The patient states she contacted her business trainer today and was told to call 911 to "find out what is going on". The patient states that she has not had a fever or chills. No nausea or vomiting. No body aches. She has not been currently taking any medication for her osteomyelitis. She was on 6 weeks of IV Rocephin through PICC line after her admission in November earlier this year. Last dose of antibiotics was in December or January. She states she has not had problems with the toe since that time, but is concerned about the redness and swelling. The patient also has tenderness in the right heel, where an ulcer appears to be developing, and in her right lower back, where there appears to be an older ulcer and a newly developing ulcer. consult wound care, consult Allergies Allergy/AdvReac Type Severity Reaction Status Date / Time Iodinated Contrast Media Allergy Severe Hives and Verified 07/05/23 19:15 kidney complications iodine Allergy Severe Hives and Verified 07/05/23 19:15 kidney complications shellfish derived Allergy Severe Anaphylaxis Verified 07/05/23 19:15 /Hives sulfite Allergy Severe HIVES AND Verified 07/05/23 19:15 THROAT CLOSES Home Medications Medication Instructions Recorded Confirmed Type rosuvastatin 20 mg tablet 20 mg PO HS 02/26/19 07/05/23 History tramadol 50 mg tablet 50 mg PO Q6H PRN Pain 05/17/20 07/05/23 History montelukast 10 mg tablet 10 mg PO HS 09/27/20 07/05/23 History levalbuterol tartrate 45 2 inh inhalation Q4H PRN Shortness 11/30/20 07/05/23 Rx mcg/actuation aerosol inhaler Of Breath Or Wheezing #15 grams (Xopenex HFA) nitroglycerin 0.4 mg sublingual 0.4 mg sublingual Q5M PRN Chest 11/30/20 07/05/23 History tablet Pain levalbuterol HCl 0.63 mg/3 mL 0.63 mg (3 mL) inhalation TID PRN 01/31/21 07/05/23 Rx solution for nebulization shortness of breath or wheezing #270 mL Oxygen Home #4 L 06/17/21 02/13/23 Rx epoetin milo 2,000 unit/mL 0 unit subcut DIRECTED PRN LOW 08/26/21 07/05/23 History injection solution (Procrit) COUNT furosemide 20 mg tablet 20 mg PO DAILY 07/05/22 07/05/23 History levothyroxine 112 mcg tablet 0 mcg PO DAILY 07/05/22 07/05/23 History nystatin 100,000 unit/gram topical 1 applic EXT BID #15 grams 07/09/22 07/05/23 Rx ointment BiPap Machine #1 ea 11/27/22 02/13/23 Rx insulin regular hum U-500 conc 500 See Rx Instructions .Route .COMPLEX 02/13/23 07/05/23 History unit/mL(3 mL) subcut pen ferrous sulfate 325 mg (65 mg 325 mg PO QAM 07/05/23 07/05/23 History iron) tablet fluticasone 250 mcg-salmeterol 50 1 inh inhalation BID PRN 07/05/23 07/05/23 History mcg/dose blistr powdr for wheezing/sob inhalation (Advair Diskus) multivitamin 1 tab PO QAM 07/05/23 07/05/23 History Past Med/Surg History Medical History ARDS (adult respiratory distress syndrome) COVID-19 Chest pain Lymphedema Shortness of breath Obstructive sleep apnea syndrome Proteinuria Stage 3b chronic kidney disease Secondary pulmonary hypertension Obesity hypoventilation syndrome Morbid obesity due to excess calories Lymphedema of lower extremity Vitamin D deficiency Stage 3b chronic kidney disease Diarrhea Breathlessness Hypothyroidism Hypertension SOB (shortness of breath) Chronic respiratory failure 1 to 2 L oxygen Morbid obesity CAD S/P percutaneous coronary angioplasty Coronary artery disease Anemia Dyspnea CHF (congestive heart failure) Acute respiratory failure with hypoxia Thyroid cancer Diverticulitis GERD (gastroesophageal reflux disease) Diabetes Surgical History H/O endoscopy H/O partial thyroidectomy History of colonoscopy History of percutaneous coronary intervention Family History Other Diabetes Heart disease No pertinent family history Social History Smoking Status: Never smoker Second Hand Exposure: No; Do You Dip or Chew Tobacco: No; Hx Alcohol Use: No Hx Substance Use: No Preferred Language: Arabic 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 Ability: Effective Enamel Dipper Required: No Beliefs That Will Affect Care: None marital status: Current Living Situation: Spouse Current Living Situation Comment: current occupational status: disabled Feels Safe at Home: Yes Diet: other Diet Comment: low carb high protein "like a gastirc bypass diet" states seeing nutrionist caffeine: Yes during the past year weight has: increased > 10 lbs Physical Activity Frequency: Does not Exercise Do you think of yourself as: straight/heterosexual Gender Identity: Female Assistive Devices: CPAP, Oxygen - Continuous, Walker and Wheelchair Review of Systems Constitutional: no fever and no chills Respiratory: + dyspnea (baseline need for O2); no cou gh Cardiovascular: no chest pain and no palpitations Gastrointestinal: no abdominal pain, no nausea and no vomiting Genitourinary: no dysuria Musculoskeletal: + back pain Integumentary: + non-healing lesions, + skin ulcer (one non-healed ulcer and newly forming ulcer on lower back, r. side) and + erythema (erythema and swelling of 3rd toe, r. foot) Neurologic: + loss of sensation (b/l loss of touch a nd pain in LEs) and + numbness Physical Exam Constitutional: + morbidly obese, + physical limitations (problems with mo bility) and cooperative Respiratory: + labored breathing (without oxygen, pt' s breathing becomes more labored) and able to speak in complete sentences (when in O2, able to talk w/out getting winded) Auscultation: no crackles and no wheezes Cardiovascular: Rate/Rhythm: regular rate and regular rhythm Heart Sounds: + murmur Extremities: + pedal edema and + edema (patient's abdomen very edematous also) Gastrointestinal (Abdomen): Percussion/Palpation: abdomen nontender Musculoskeletal: patient w/ decreased core strength, unable to roll over, sit up, etc w/out help from nursing staff or caregiver Skin: + ulcer (2 ulcers on r. lower back: one old ulcer, one newly developing ulcer), + wound and + erythema Psychiatric: A+Ox3, euthymic affect Genitourinary: no CVA tenderness Lymphatic: + lymphedema (b/l in LEs, significantly worse in r. leg) Results & Data Results & Data Vital Signs (Past 12 Hours) Vital Signs Temp Pulse Resp BP Pulse Ox O2 Del Method 07/05/23 19:48 82 16 130/76 100 Room Air 07/05/23 17:58 80 07/05/23 16:15 36.9 C 84 20 135/89 99 Room Air Supervising Physician Co-Signing Physician Notes I have personally seen, evaluated and examined the patient. I have also personally discussed the management of the patient with the resident physician and I agree with the exam findings documented in the history and physical examination and the documented assessment and plan unless otherwise stated below. General: 67-year-old female alert and oriented x 3 companied by her at the time of my examination she is in no acute distress whatsoever. HEENT: Normocephalic atraumatic pupils are equal round and reactive to light bilaterally. No scleral icterus no conjunctival injection external auditory canals are patent septum is in the midline nose is without discharge oral mucosa is pink and moist without lesion. NECK: Supple no rigidity no lymphadenopathy no thyromegaly no carotid bruits no JVD no masses. HEART: Regular rate and rhythm I do not appreciate any ectopy or rub. No murmur -exam is somewhat limited due to her body habitus. LUNGS: Clear to auscultation bilaterally and anteriorly with no evidence of adventitious sounds/wheezes rales or rhonchi -however as above exam limited due to her body habitus. ABDOMEN: Morbidly obese, soft nontender, no rebound, no peritoneal signs, positive bowel sounds, no appreciable organomegaly. EXTREMITIES: Intact, patient has bilateral lymphedema which is quite chronic she has an erythematous right middle toe actively infected with cellulitis and per x-ray osteomyelitis with some active drainage. In addition she has excoriations on her gluteal region and low back region for which we will consult wound care NEUROLOGICAL: Cranial nerves II through XII are grossly intact with no focal deficit elicited upon examination. No tremor. Assessment/plan: As above. In addition to this patient was apparently supposed to have an amputation of this toe in May of this year however this procedure was canceled by her rental salesperson therefore will have cardiology see her for preoperative evaluation given the fact she has osteomyelitis definitive surgical treatment would be recommended if cardiac clearance can be obtained. Will keep the patient n.p.o. she has had 2 g of Rocephin she has had a loading dose of vancomycin I will continue the Rocephin for now daily. Wound care has been consulted. CPAP has been ordered. 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
[2023-07-05] MEDS ORDERED: VANCOMYCIN CONSULT ACTIVE PRN (22:06)
[2023-07-05] MEDS ORDERED: VANCOMYCIN HCL 2,750 MG in SODIUM CHLORIDE 0.9% 500 ML IV STA (22:18)
--- NOTE | 2023-07-05 23:36 | Billing Data ---
Date of Service July 05, 2023 Coding Level of Care Code 21007 INT INP/OBS CARE
[2023-07-06] MEDS ORDERED: PHARMACY GLYCEMIC MGMT CONSULT PRN (04:06)
[2023-07-06] MEDS ORDERED: CARBOHYDRATES FOR HYPOGLYCEMIA PO PRN (04:06)
[2023-07-06] MEDS ORDERED: LEVALBUTEROL TARTRATE 15 GM HFA.AER.AD INH PRN (04:06)
[2023-07-06] MEDS ORDERED: NITROGLYCERIN SL 0.4 MG/TAB TAB SL PRN (04:06)
[2023-07-06] MEDS ORDERED: GLUCAGON FOR INJ 1 MG VIAL SQ PRN (04:06)
[2023-07-06] MEDS ORDERED: DEXTROSE 50% 50 ML SYRINGE IV PRN (04:06)
[2023-07-06] MEDS ORDERED: ACETAMINOPHEN 325 MG TAB PO PRN (04:06)
[2023-07-06] MEDS ORDERED: GLUCOSE 40% GEL 15 GM TUBE PO PRN (04:06)
[2023-07-06] MEDS ORDERED: EPOETIN ALFA 2000 UNIT/ML SQ PRN (04:06)
[2023-07-06] MEDS ORDERED: LEVALBUTEROL HCL 0.63 MG/3 ML NEB INH PRN (04:06)
[2023-07-06] MEDS ORDERED: GLUCOSE 10 TAB/TUBE PO PRN (04:06)
[2023-07-06] MEDS: LEVOTHYROXINE SODIUM 112 MCG TABLET PO SCH (06:14)
[2023-07-06] MEDS: HEPARIN SOD 5,000 UNIT/0.5 ML VIAL SQ SCH ×3 (06:16→21:31)
[2023-07-06] MEDS ORDERED: LEVOTHYROXINE SODIUM 112 MCG TABLET PO SCH (06:30)
[2023-07-06 06:32] LABS: Basophils # (auto) 0.03 K/uL (0.00-0.20); Basophils % (auto) 0.5 %; Eosinophils # (auto) 0.33 K/uL (0.00-0.50); Eosinophils % (auto) 5.3 %; Hematocrit (blood only) 32.3 % (37.0-47.0); Hemoglobin 9.4 g/dl (12.0-16.0); Immature Granulocytes # (auto) 0.04 K/uL (0.01-0.20); Immature Granulocytes % (auto) 0.6 %; Lymphocytes # (auto) 0.91 K/uL (1.20-3.40); Lymphocytes % (auto) 14.6 %; Mean Corpuscular Hemoglobin 24.5 pg (25.0-34.0); Mean Corpuscular Hgb Conc 29.1 g/dL (32.0-36.0); Mean Corpuscular Volume 84.3 fL (80.0-100.0); Mean Platelet Volume 11.1 fL (9.4-12.4); Monocytes # (auto) 0.75 K/uL (0.11-0.59); Neutrophils # (auto) 4.17 K/uL (1.40-6.50); Platelet Count 206 K/uL (130-400); RDW Coefficient of Variation 23.1 % (11.5-14.5); RDW Standard Deviation 69.9 fL (36.4-46.3); Red Blood Count 3.83 M/uL (4.20-5.40); White Blood Count 6.23 K/ul (4.8-10.8)
[2023-07-06 07:06] LABS: Anisocytosis Present; Polychromasia 1+
[2023-07-06 07:14] LABS: Albumin Level 3.1 gm/dl (3.4-5.0); Bilirubin,Total 1.1 mg/dl (0.2-1.0); Calcium 8.8 mg/dl (8.6-10.3); Potassium 3.4 mmol/L (3.5-5.1)
[2023-07-06 07:20] LABS: Albumin Globulin Ratio 0.7 (0.9-2); BUN Creatinine Ratio 14.5 (10-20); Creatinine Clr Calc Pharmacy 49.8 ml/min; Est GFR (African American) 36.9 ml/min; Est GFR (Non-African American) 31.8 ml/min; Globulin 4.4 gm/dl (2.5-4.0); Total Protein 7.5 gm/dl (6.0-8.3)
[2023-07-06] MEDS: INSULIN ASPART PER UNIT CHARGE SC SCH ×4 (08:44→23:54)
[2023-07-06] MEDS: MULTIVITAMIN TAB PO SCH (08:50)
[2023-07-06] MEDS: FERROUS SULFATE 325 MG TAB PO SCH (08:50)
[2023-07-06] MEDS: FUROSEMIDE 20 MG TAB PO SCH (08:51)
[2023-07-06] MEDS: NYSTATIN OINT 15 GM TUBE EXT SCH ×2 (08:51→21:30)
[2023-07-06] MEDS: FLUTICASONE/VILANTEROL 100/25MCG 14 PUFFS/INHALER INH SCH (08:51)
[2023-07-06] MEDS: traMADol HCL 50 MG TABLET PO PRN ×2 (08:55→23:31)
[2023-07-06] MEDS ORDERED: LANTUS PER UNIT CHARGE SQ SCH (09:00)
--- OUTSIDE RECORDS SUMMARY | 2023-07-06 11:33 | External Medical Summary ---
Author Name Unknown Address Unknown Organization [id number]:[facility] [address] [place] [id number] Laboratory Report Ordering Provider Test Date Status CHRISTIANO MCNEIL 07/03/2023 10:20:00 Final Observation Date Value Abnormality Reference (Units ) Status WBC, Total 07/03/2023 10:20:00 6.75 4.00-10.8 0 (K/uL) Final RBC 07/03/2023 10:20:00 3.73 3.85-5.15 (M/uL) Final Hemoglobin 07/03/2023 10:20:00 9.3 Below low normal 12 .0-15.3 (g/dL) Final HCT 07/03/2023 10:20:00 32.1 Below low normal 36. 0-45.2 (%) Final MCV 07/03/2023 10:20:00 86.1 81.5-97.5 (fL) Final MCH 07/03/2023 10:20:00 24.9 27.0-34.0 (pg) Final MCHC 07/03/2023 10:20:00 29.0 32.0-36.0 (g/dL) Final RDW 07/03/2023 10:20:00 23.6 11.5-15.5 (%) Final Platelets 07/03/2023 10:20:00 196 140-400 (K /uL) Final MPV 07/03/2023 10:20:00 10.8 6.6-11.1 ( fL) Final Performing Location [facility] [address] [place] [id number]
--- OUTSIDE RECORDS SUMMARY | 2023-07-06 11:33 | External Medical Summary ---
Author Name Unknown Address Unknown Organization [id number]:[facility] [address] [place] [address] Laboratory Report Ordering Provider Test Date Status CHRISTIANO MCNEIL 07/03/2023 10:20:00 Final Observation Date Value Abnormality Reference (Units ) Status SYNC LEUKOCYTES IN BLOOD BY AUTOMATED COUNT 07/03/2023 10:20:00 6.75 4.00-10.80 (K/uL) Final Segs 07/03/2023 10:20:00 67.4 40.0-75.0 (%) Final Lymphs % 07/03/2023 10:20:00 14.7 Below low normal 18.0-42.0 (%) Final Monos 07/03/2023 10:20:00 9.9 1.0-11.0 (%) Final Eosinophils 07/03/2023 10:20:00 7.4 Above high normal 0.0-6.0 (%) Final Basos 07/03/2023 10:20:00 0.6 0.0-2.0 (%) Final Absolute Segs 07/03/2023 10:20:00 4.55 1.80-7.70 (K/uL) Final Lymphs, absolute 07/03/2023 10:20:00 0.99 Below low normal 1.00-4.80 (K/ul) Final Monos, Abs 07/03/2023 10:20:00 0.67 0.00-1.10 (K/uL) Final Eos, Abs 07/03/2023 10:20:00 0.50 0.00-0.70 (K/uL) Final Basos, Abs 07/03/2023 10:20:00 0.04 0.00-0.20 (K/uL) Final Performing Location [facility] [address] [place] [address]
--- OUTSIDE RECORDS SUMMARY | 2023-07-06 11:33 | External Medical Summary ---
Author Name Unknown Address Unknown Organization [id number]:[facility] [place] [address] [facility] [address] Laboratory Report Ordering Provider Test Date Status CHRISTIANO MCNEIL 06/19/2023 11:08:00 Final Observation Date Value Abnormality Reference (Units ) Status Ferritin 06/19/2023 11:08:00 77 13-150 (ng /mL) Final Postmenopausal women have hi gher ferritin levels than pre-menopausal women. The above reference interval is based on pre-menopausal women. Performing Location [facility]AT[facility] - [address] [place] [id number]
--- OUTSIDE RECORDS SUMMARY | 2023-07-06 11:33 | External Medical Summary ---
Author Name Unknown Address Unknown Organization [id number]:[facility] [address] [place] [address] Laboratory Report Ordering Provider Test Date Status CHRISTIANO MCNEIL 06/19/2023 11:08:00 Final Observation Date Value Abnormality Reference (Units ) Status WBC, Total 06/19/2023 11:08:00 6.52 4.00-10.8 0 (K/uL) Final RBC 06/19/2023 11:08:00 3.81 3.85-5.15 (M/uL) Final Hemoglobin 06/19/2023 11:08:00 9.5 Below low normal 12 .0-15.3 (g/dL) Final HCT 06/19/2023 11:08:00 32.6 Below low normal 36. 0-45.2 (%) Final MCV 06/19/2023 11:08:00 85.6 81.5-97.5 (fL) Final MCH 06/19/2023 11:08:00 24.9 27.0-34.0 (pg) Final MCHC 06/19/2023 11:08:00 29.1 32.0-36.0 (g/dL) Final RDW 06/19/2023 11:08:00 23.8 11.5-15.5 (%) Final Platelets 06/19/2023 11:08:00 226 140-400 (K /uL) Final MPV 06/19/2023 11:08:00 10.7 6.6-11.1 ( fL) Final Performing Location [facility] [address] [place] [id number]
--- OUTSIDE RECORDS SUMMARY | 2023-07-06 11:33 | External Medical Summary ---
Author Name Unknown Address Unknown [facility] [id number] [address] [facility] [address] [place] [address] Laboratory Report Ordering Provider Test Date Status CHRISTIANO MCNEIL 07/03/2023 10:20:00 Final Observation Date Value Abnormality Reference (Units ) Status Nucleated erythrocytes/100 leukocytes [Ratio] in Blood by Automated count 07/03/2023 10:20:00 Final Performing [facility] [address] [place] [address]
--- OUTSIDE RECORDS SUMMARY | 2023-07-06 11:33 | External Medical Summary ---
Author Name Unknown Address Unknown Organization K01:[facility] - [address] [place] [address] Laboratory Report Ordering Provider Test Date Status CHRISTIANO MCNEIL 06/19/2023 11:08:00 Final Observation Date Value Abnormality Reference (Units ) Status Transferrin 06/19/2023 11:08:00 215 200-360 (mg/dL) Final Performing Location [facility] - [address] [place] [id number]
--- OUTSIDE RECORDS SUMMARY | 2023-07-06 11:34 | External Medical Summary | Summary of Care ---
Author Name Unknown Organization [facility] Address [address] [place] [address] Phone [phone] Care Team Providers Care Setter Induction Heating Equipment Name Role Phone Aiyana Asencio MD Primary Care Provider [phone] Encounter Details Date Type Department Care Team Description 03/14/2023 Result Scan Unspecified Department Iliana Mulligan MD [address] [place] [address] <No scans attached> Allergies Active Allergy Reactions Severity Noted Date Comments Albuterol 03/13/2023 Other Reaction(s): itching Ciprofloxacin Rash 06/11/2019 Headache, Made left arm really heavy Amlodipine Besylate Edema Other 05/06/2019 Legs Other - Drugs 06/01/2005 CAT SCAN DYE ALLERGY!!!!!!!!!!!!!!!!!!!!!!! HIVES,THROAT CLOSES Shellfish Allergy 12/09/2015 Sulfites Abdominal pain 10/13/2009 documented as of this encounter (statuses as of 03/14/2023) Medications Medication Sig Dispensed Refills Start Date End Date Status furosemide (LASIX) 20 MG Tablet Take 1 Tablet by mouth. Unsure of milligrams--takes as needed for swelling 0 Active ADVAIR DISKUS 250-50 MCG/DOSE inhaler inhale 1 dose by mouth every 12 hours 0 06/19/2018 Active ONETOUCH ULTRA BLUE STRP 1 07/09/2018 Active BD PEN NEEDLE WAN U/F 32G X 4 MM 0 08/08/2018 Active levalbuterol (XOPENEX) 0.63 MG/3ML nebulizer solution 0 09/21/2018 Active levalbuterol (XOPENEX HFA) 45 MCG/ACT inhaler Inhale 2 Puffs by mouth every 4 hours as needed. 0 06/25/2018 Active levothyroxine (LEVOXYL) 88 MCG Tablet 0 08/23/2018 Active fluticasone (FLONASE) 50 MCG/ACT nasal spray Administer 2 Sprays into nostril 2 times a day as needed for Allergies. 0 Active HUMULIN R U-500 KWIKPEN 500 UNIT/ML SOPN Take 50 units with breakfast, 50 units with lunch, and 120 units with dinner 0 10/29/2018 Active montelukast (SINGULAIR) 10 MG Tablet Take 1 Tablet by mouth at bedtime. 0 10/29/2018 Active rosuvastatin (CRESTOR) 20 MG Tablet Take 1 Tablet by mouth in the morning. 0 10/29/2018 Active nitroglycerin (NITROSTAT) 0.[address] 1 tablet under the tongue if needed every 5 minutes for renee... (REFER TO PRESCRIPTION NOTES). 0 01/20/2019 Active traMADol (ULTRAM) 50 MG Tablet Take 1 Tablet by mouth every 6 hours as needed. 0 04/22/2019 Active losartan (COZAAR) 100 MG Tablet Take 100 mg by mouth daily. 0 06/02/2019 Active oxygen IN GAS Inhale 4 L/min(Oxygen) by mouth continuous. 0 Active Ergocalciferol 1.25 MG (29988 UT) Oral Capsule (Vitamin D2(Drisdol)) Take 1 Capsule by mouth. 0 08/13/2020 Active Doxycycline Hyclate 100 MG Oral Capsule Take 1 Capsule by mouth in the morning and 1 Capsule before bedtime. 0 03/05/2023 03/15/2023 Active Ferrous Sulfate 325 (65 Fe) MG Oral Tablet (FeroSul) Take 1 Tablet by mouth in the morning. 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 pylori infection 11/05/2009 Overview: Rx ordered Hemorrhoids, external without complicati ons 06/01/2005 Postsurgical hypothyroidism DM type 2, not at goal HTN, goal to be determined Dyslipidemia, goal to be determined Other specified disorders of liver Overview: fatty Diverticulitis of colon Esophageal reflux documented as of this encounter (statuses as of 03/14/2023) Immunizations Name Administration Dates Next Due Seasonal Influenza, PF, 6 mons & Above, IM , (Fl ulaval) 05/06/2019 Seasonal Influenza, Split, IIV3, With Preserve, Inj 04/21/2018 documented as of this encounter Social History Tobacco Use Types Packs/Day Years Used Date Smoking Tobacco: Never Smokeless Tobacco: Never Alcohol Use Standard Drinks/Week Comments No 0 (1 standard drink = 0.6 oz pur e alcohol) Sex Assigned at Date Recorded Not on file Job Start Date Occupation Industry Not on file Not on file Not on file documented as of this encounter Functional Status Functional Status Response Date of Assess ment Are you deaf or do you have serious difficulty h earing? No 10/27/2018 Are you blind or do you have serious difficulty seeing, even when wearing glasses? No 10/27/2018 Do you have serious difficul ty walking or climbing stairs? (5 years old or older) Yes 10/27/2018 Do you have difficulty dress ing or bathing? (5 years old or older) No 10/27/2018 Because of a physical, menta l, or emotional condition, do you have difficulty doing errands alone such as visiting a doctor s office or shopping? (15 years old or older) No 10/28/19 19 Cognitive Status Response Date of Assessm ent Because of a physical, menta l, or emotional condition, do you have serious difficulty concentrating, remembering, or making decisions? (5 years old or older No 10/27/2018 documented as of this encounter Plan of Treatment Upcoming Encounters Date Type Specialty Care Team Description 07/11/2023 Office Visit Infectious Disease Iliana Mulligan MD [address] [place] [address] Scheduled Procedures Name Priority Associated Diagnoses Date/Ti me COLONOSCOPY FLEXIBLE PROXIMAL DIAGNOSTIC Recall History of colon polyps Health Maintenance Due Date Last Done Comments Pneumococcal Vaccine: 65+ Years (1 - PCV) 10/19/1961 Depression Screening, Annual for Pts 12 and Over 1967 Albumin/Creatinine Ratio 10/19/1973 DIABETES-FOOT EXAM 10/19/1973 Hepatitis C Screening 10/19/1973 DTaP,Tdap,and Td Vaccines (1 - Tdap) 10/19/1974 Mammogram 1995 Zoster Vaccines (1 of 2) 10/19/2005 Lipid Panel 12/24/2016 12/25/2011 DIABETES-EYE EXAM 10/08/2019 10/07/2018 DXA Scan 10/19/2020 COVID-19 Vaccine (2 - Moderna series) 11/02/2020 09/07/2020 HbA1c 02/03/2021 08/06/2020, 04/22, 01/28/2019, Additional history exists TSH 10/06/2021 10/06/2020, 09/10/2009 GFR 10/07/2021 10/07/2020, 09/20, 08/06/2020, Additional history exists Influenza Vaccine (FLU shot) (#1) 2023 04/05/2020, 05/06/2019, 04/21/2018 COLONOSCOPY-EVERY 5 YRS AGES 18-100 10/30/2023 10/29/2018, 08/20/2018, 01/04/2016, Additional history exists GARDASIL-HPV IMMUNIZATION SERIES Aged Out No longer eligible based on patient's age to complete this topic Hepatitis B Aged Out No longer eligi ble based on patient's age to complete this topic MENINGOCOCCAL (MENACTRA/MENVEO) Aged Out No longer eligible based on patient's age to complete this topic documented as of this encounter Medical Devices Not on filedocumented as of this encounter Procedures Procedure Name Priority Date/Time Associated Diagnosis Comments OUTSIDE LAB RESULTS 03/14/2023 documented in this encounter Results * OUTSIDE LAB RESULTS (03/14/2023) 03/14/2023 Iliana Mulligan MD LABORATORY documented in this encounter Advance Directives Latest Code Status on File Code Status Date Activated Date Inactivated Comments Full Code 10/27/2018 4:12 PM 10/29/2018 10:57 PM This o rder reflects the patients wishes and were consensually agreed upon. Question Answer Comments Discussion of Advance Directives occurred with: Patient Does the patient have a Living Will? No Does the patient have Health Care Power of Overage Shortage And Damage Clerk? No Care Teams Setter Induction Heating Equipment Relationship Specialty Start Date End Date Aiyana Asencio MD [address] [place] [id number] PCP - General Family Medicine 08/23/18 documented as of this encounter
--- OUTSIDE RECORDS SUMMARY | 2023-07-06 11:34 | External Medical Summary ---
Author Name Unknown Address Unknown Organization [id number]:[facility] [place] [address] [place] [address] Laboratory Report Ordering Provider Test Date Status CHRISTIANO MCNEIL 06/19/2023 11:08:00 Final Observation Date Value Abnormality Reference (Units ) Status Iron 06/19/2023 11:08:00 33 33-151 (ug/dL) Final Iron-binding capacity 06/19/2023 11:08:00 259 250-425 (ug/dL) Final Transferrin Sat % 06/19/2023 11:08:00 13 Below low normal 15-55 (%) Final Performing Location LABORATORY [facility] - [address] [place] [address]
--- OUTSIDE RECORDS SUMMARY | 2023-07-06 11:34 | External Medical Summary | Summary of Care ---
Author Name Unknown Organization [facility] Address [address] [place] [address] Phone [phone] Care Team Providers Care Underwear Cutter Name Role Phone Aiyana Asencio MD Primary Care Provider [phone] Reason for Visit * Reason Onset Date Comments Follow Up 03/15/2023 Encounter Details Date Type Department Care Team Description 03/15/2023 Telephone Infectious Disease, [place] [address] [place] [id number] Iliana Mulligan MD [address] [place] [address] Follow Up Allergies Active Allergy Reactions Severity Noted Date Comments Albuterol 03/13/2023 Other Reaction(s): itching Ciprofloxacin Rash 06/11/2019 Headache, Made left arm really heavy Amlodipine Besylate Edema Other 05/06/2019 Legs Other - Drugs 06/01/2005 CAT SCAN DYE ALLERGY!!!!!!!!!!!!!!!!!!!!!!! HIVES,THROAT CLOSES Shellfish Allergy 12/09/2015 Sulfites Abdominal pain 10/13/2009 documented as of this encounter (statuses as of 03/20/2023) Medications Medication Sig Dispensed Refills Start Date [...] mouth continuous. 0 Active Ergocalciferol 1.25 MG (59111 UT) Oral Capsule (Vitamin D2(Drisdol)) Take 1 Capsule by mouth. 0 08/13/2020 Active Ferrous Sulfate 325 (65 Fe) MG Oral Tablet (FeroSul) Take 1 Tablet by mouth in the morning. 0 03/29/2022 Active Doxycycline Hyclate 100 MG Oral Capsule Take 1 Capsule by mouth in the morning and 1 Capsule before bedtime. 0 03/05/2023 03/15/2023 documented as of this encounter (statuses as of 03/20/2023) Active Problems Problem Noted Date AVM (arteriovenous [...] as of this encounter (statuses as of 03/20/2023) Immunizations Name Administration Dates Next Due Seasonal [...] No 10/27/2018 documented as of this encounter Miscellaneous Notes * Telephone Encounter - Nori Tapia LPN - 03/20/2023 9:24 AM EDT I called and spoke to Pt. She will get a repeat CRP next month and we will continue to monitor. [employer] her case picker did a recent Xray and has recommended partial amputation. IF Pt's A1C is acceptable she will be scheduled for surgery. Nori Tapia LPN Nurse Navigator ID' * Telephone Encounter - Iliana Mulligan MD - 03/15/2023 5:11 PM EDT Called and was unable to leave message regarding her slightly elevated CRP .Recommend continuing tomonitor documented in this encounter Plan of Treatment Upcoming Encounters Date Type Specialty Care Team Description 07/11/2023 Office Visit Infectious Disease Iliana Mulligan MD [address] [place] [address] Scheduled Procedures Name Priority Associated Diagnoses Date/Ti [...] Not on filedocumented as of this encounter Advance Directives Latest Code Status on File Code Status Date Activated Date Inactivated Comments Full Code 10/27/2018 4:12 PM 10/29/2018 10:57 PM This o rder reflects the patients wishes and were consensually agreed upon. Question Answer Comments Discussion of Advance Directives occurred with: Patient Does the patient have a Living Will? No Does the patient have Health Care Power of Esthetician Spa? No Care Teams Underwear Cutter Relationship Specialty Start Date End Date Aiyana Asencio MD [address], [place] [address] PCP - General Family Medicine 08/23/18 documented as of this encounter
--- OUTSIDE RECORDS SUMMARY | 2023-07-06 11:34 | External Medical Summary ---
Author Name Unknown Address Unknown Organization [id number]:LABORATORY [facility] [address] - [address] [place] [id number] Laboratory Report Ordering Provider Test Date Status CHRISTIANO MCNEIL 06/12/2023 11:40:00 Final Observation Date Value Abnormality Reference (Units ) Status WBC, Total 06/12/2023 11:40:00 7.41 4.00-10.8 0 (K/uL) Final RBC 06/12/2023 11:40:00 3.70 3.85-5.15 (M/uL) Final Hemoglobin 06/12/2023 11:40:00 9.1 Below low normal 12 .0-15.3 (g/dL) Final HCT 06/12/2023 11:40:00 31.9 Below low normal 36. 0-45.2 (%) Final MCV 06/12/2023 11:40:00 86.2 81.5-97.5 (fL) Final MCH 06/12/2023 11:40:00 24.6 27.0-34.0 (pg) Final MCHC 06/12/2023 11:40:00 28.5 32.0-36.0 (g/dL) Final RDW 06/12/2023 11:40:00 24.2 11.5-15.5 (%) Final Platelets 06/12/2023 11:40:00 201 140-400 (K /uL) Final MPV 06/12/2023 11:40:00 10.1 6.6-11.1 ( fL) Final Performing Location LABORATORY [facility] [address] [place] [id number]
--- OUTSIDE RECORDS SUMMARY | 2023-07-06 11:34 | External Medical Summary | Summary of Care ---
Author Name Unknown Organization [facility] Address [address] [place] [address] Phone [phone] Care Team Providers Care Shoes Hand Sewer Name Role Phone Aiyana Asencio MD Primary Care Provider [phone] Reason for Visit * Reason Onset Date Comments Follow Up 03/15/2023 Encounter Details Date Type Department Care Team Description 03/15/2023 Telephone Infectious Disease, [place] [address] [place] [phone] Iliana Mulligan MD [address] [place] [address] Follow Up Allergies Active Allergy Reactions Severity Noted Date Comments Albuterol 03/13/2023 Other Reaction(s): itching Ciprofloxacin Rash 06/11/2019 Headache, Made left arm really heavy Amlodipine Besylate Edema Other 05/06/2019 Legs Other - Drugs 06/01/2005 CAT SCAN DYE ALLERGY!!!!!!!!!!!!!!!!!!!!!!! HIVES,THROAT CLOSES Shellfish Allergy 12/09/2015 Sulfites Abdominal pain 10/13/2009 documented as of this encounter (statuses as of 03/15/2023) Medications Medication Sig Dispensed Refills Start Date [...] mouth continuous. 0 Active Ergocalciferol 1.25 MG (80186 UT) Oral Capsule (Vitamin D2(Drisdol)) Take 1 [...] as of this encounter (statuses as of 03/15/2023) Active Problems Problem Noted Date AVM (arteriovenous [...] as of this encounter (statuses as of 03/15/2023) Immunizations Name Administration Dates Next Due Seasonal [...] encounter Miscellaneous Notes * Telephone Encounter - Iliana Mulligan MD - 03/15/2023 5:11 PM EDT Called and was unable to leave message regarding her slightly elevated CRP .Recommend continuing tomonitor documented in this encounter Plan of Treatment Upcoming Encounters Date Type Specialty Care Team Description 07/11/2023 Office Visit Infectious Disease Iliana Mulligan MD [address] [place] [address] Scheduled Procedures Name Priority Associated Diagnoses Date/Ti [...] the patient have Health Care Power of Cookie Mixer Helper? No Care Teams Shoes Hand Sewer Relationship Specialty Start Date End Date Aiyana Asencio MD [address] [facility] [address] [place] [address] PCP - General Family Medicine 08/23/18 documented as of this encounter
--- OUTSIDE RECORDS SUMMARY | 2023-07-06 11:34 | External Medical Summary | Summary of Care ---
Author Name Unknown Organization [facility] Address [address] [place] [address] Phone [phone] Care Team Providers Care Food Or Baggage Handling Rampman Name Role Phone Aiyana Asencio MD Primary Care Provider [phone] Encounter Details Date Type Department Care Team (Late st Contact Info) Description 05/18/2023 Orders Only Lab Mobile [facility]botomy [facility] [place] [address], [place] [id number] Aiyana Rubio, HAYDEE-Dylan [address] [place] [address] Anemia of chronic renal failure* Allergies Active Allergy Reactions Criticality Noted Date Comments Albuterol 03/13/2023 Other Reaction(s): itching Ciprofloxacin Rash 06/11/2019 Headache, Made left arm really heavy Amlodipine Besylate Edema Other 05/06/2019 Legs Other - Drugs 06/01/2005 CAT SCAN DYE ALLERGY!!!!!!!!!!!!!!!!!!!! !!! HIVES,THROAT CLOSES Shellfish Allergy 12/09/2015 Sulfites Abdominal pain 10/13/2009 documented as of this encounter (statuses as of 05/18/2023) Medications Medication Sig Dispensed Refills Start Date [...] mouth continuous. 0 Active Ergocalciferol 1.25 MG (11586 UT) Oral Capsule (Vitamin D2(Drisdol)) Take 1 Capsule by mouth. 0 08/13/2020 Active Ferrous Sulfate 325 (65 Fe) MG Oral Tablet (FeroSul) Take 1 Tablet by mouth in the morning. 0 03/29/2022 Active documented as of this encounter (statuses as of 05/18/2023) Active Problems Problem Noted Date Diagnosed Date AVM (arteriovenous malformation) of small bowel, acquired 01/17/2019 Occult GI bleeding 01/17/2019 Melena 10/27/2018 Iron deficiency anemia 09/23/2018 H. pylori infection 11/05/2009 Overview: Rx ordered Hemorrhoids, external without complications 05/23 Postsurgical hypothyroidism DM type 2, not at goal HTN, goal to be determined Dyslipidemia, goal to be determined Other specified disorders of liver Overview: fatty Diverticulitis of colon Esophageal reflux documented as of this encounter (statuses as of 05/18/2023) Immunizations Name Administration Dates Next Due SEASONAL INFLUENZA, PF, 6 M & Above, IM , (FLULAVAL or FLUZONE) 05/06/2019 Seasonal Influenza, Split, IIV3, With Preserve, Inj 04/21/2018 documented as of this encounter Social History Tobacco Use Types Packs/Day Years Used Date Smoking Tobacco: Never Smokeless Tobacco: Never Alcohol Use Standard Drinks/Week Comments No 0 (1 standard drink = 0.6 oz pur e alcohol) Sex and Gender Information Value Date Recorded Sex Assigned at Not on file Gender Identity Not on file Sexual Orientation Not on file Job Start Date Occupation [...] Plan of Treatment Upcoming Encounters Date Type Department Care Team (Late st Contact Info) Description 05/22/2023 9:00 AM EDT Laboratory Lab [facility] [place] [address] [place] [address] [facility] Mobile Home Draw [address] [place] [address] 05/29/2023 9:00 AM EST Laboratory Lab [facility] [address] [place] [address] [facility] Mobile [facility] Draw [address] [place] [address] 06/05/2023 9:00 AM EST Laboratory Lab [facility] [address] [place] [address] [facility] Draw [address] [place] [address] 06/12/2023 9:00 AM EST Laboratory [facility] [address] [place] [address] [facility] Draw [address] [place] [address] 06/19/2023 9:00 AM EST Laboratory [facility] [address] [place] [address] [facility] Draw [address] [place] [address] 06/26/2023 9:00 AM EST Laboratory Lab Mobile [facility] [address] [place] [address] [facility] Mobile Home Draw [address] [place] [address] 07/03/2023 9:00 AM EST Laboratory Lab [facility] [address] [place] [address] [facility] Mobile Home Draw [address] [place] [address] 07/10/2023 9:00 AM EST Laboratory [facility] [address] [place] [address] [facility] Draw [address] [place] [address] 07/11/2023 2:40 PM EST Telemedicine Infectious Disease [facility] [address] [place] [address] Iliana Mulligan MD [address] [place] [address] 07/17/2023 9:00 AM EST Laboratory Lab [facility] [place] [address] [place] [address] [facility] Mobile Home Draw [address] [place] [address] 07/24/2023 9:00 AM EST Laboratory Lab [facility] [place] [address] [place] [address] [facility], [facility] Mobile Home Draw [address] [place] [address] 07/31/2023 9:00 AM EST Laboratory Lab [facility] [place] [address] [place] [address] [facility], [facility] Mobile Home Draw [address] [place] [address] 08/07/2023 9:00 AM EST Laboratory Lab [facility] [place] [address] [place] [address] [facility], [facility] Mobile Home Draw [address] [place] [address] 08/14/2023 9:00 AM EST Laboratory Lab [facility]omy [facility] [place] [address] [place] [address] [facility], [facility] Mobile Home Draw [address] [place] [address] 08/21/2023 9:00 AM EST Laboratory Lab [facility]le[facility] [address] [place] [address] [facility], [facility] Mobile Home Draw [address] [place] [address] 08/28/2023 9:00 AM EST Laboratory Lab [facility] [address] [place] [address] [facility], [facility] Mobile Home Draw [address] [place] [address] 09/04/2023 9:00 AM EST Laboratory Lab [facility] [address] [place] [address] [facility] Draw [address] [place] [address] 09/11/2023 9:00 AM EST Laboratory Lab [facility] [address] [place] [address] [facility] Draw [address] [place] [address] 09/18/2023 9:00 AM EST Laboratory Lab [facility] [address] [place] [address] [facility], [facility] Mobile [facility] Draw [address] [place] [address] 09/25/2023 9:00 AM EST Laboratory Lab [facility] [address] [place] [address] [facility], [facility] Draw [address] [place] [address] 10/02/2023 9:00 AM EDT Laboratory Lab [facility] [address] [place] [address] [facility], [facility] Mobile [facility] Draw [address] [place] [address] Scheduled Orders Name Type Priority Associated Diagnoses Orde r Schedule CBC WITH WBC DIFFERENTIAL Lab Routine Anemia of chronic renal failure 21 Occurrences starting 05/18/2023 until 05/18/2024 Scheduled Procedures Name Priority Associated Diagnoses Date/Ti me COLONOSCOPY FLEXIBLE PROXIMAL DIAGNOSTIC Recall History of colon polyps Health Maintenance Due Date Last Done Comments Pneumococcal Vaccine: 65+ Years (1 - PCV) 10/19/1961 Depression Screening 1967 Albumin/Creatinine Ratio 10/19/1973 Diabetic Foot Exam 10/19/1973 Hepatitis C Screening 10/19/1973 DTaP,Tdap,and Td Vaccines (1 - Tdap) 10/19/1974 Mammogram 1995 Zoster Vaccines (1 of 2) 10/19/2005 Hepatitis B (1 of 3 - Risk 3-dose series) 2015 Lipid Panel 12/24/2016 12/25/2011 DIABETES-EYE EXAM 10/08/2019 10/07/2018 DXA Scan 10/19/2020 HbA1c 02/03/2021 08/06/2020, 04/22, 01/28/2019, Additional history exists TSH 10/06/2021 10/06/2020, 09/10/2009 GFR 10/07/2021 10/07/2020, 09/20, 08/06/2020, Additional history exists COVID-19 Vaccine (2 - 2022- season) 2023 09/07/2020 Influenza Vaccine (FLU shot) (#1) 2023 04/05/2020, [...] Not on filedocumented as of this encounter Visit Diagnoses Diagnosis Anemia of chronic renal failure- Primary Anemia in chronic kidney disease documented in this encounter Advance Directives Latest [...] the patient have Health Care Power of Project/Production Manager Imaging? No Care Teams Food Or Baggage Handling Rampman Relationship Specialty Start Date End Date Aiyana Asencio MD [address] [place] [address] PCP - General Family Medicine 08/23/18 documented as of this encounter
--- OUTSIDE RECORDS SUMMARY | 2023-07-06 11:34 | External Medical Summary | Summary of Care ---
Author Name Unknown Organization [facility] Address [address] [place] [address] Phone [phone] Care Team Providers Care Commercial Singer Name Role Phone Aiyana Asencio MD Primary Care Provider [phone] Encounter Details Date Type Department Care Team (Late st Contact Info) Description 06/13/2023 Orders Only Lab Mobile Phlebotomy [facility] [address], [place] [id number] Aiyana Rubio, HAYDEE-Dylan [address] [place] [address] Anemia of chronic renal failure* Allergies Active Allergy Reactions Criticality Noted Date Comments Albuterol 03/13/2023 Other Reaction(s): itching Ciprofloxacin Rash 06/11/2019 Headache, Made left arm really heavy Amlodipine Besylate Edema Other 05/06/2019 Legs Other - Drugs 06/01/2005 CAT SCAN DYE ALLERGY!!!!!!!!!!!!!!!!!!!! !!! HIVES,THROAT CLOSES Shellfish Allergy 12/09/2015 Sulfites Abdominal pain 10/13/2009 documented as of this encounter (statuses as of 06/13/2023) Medications Medication Sig Dispensed Refills Start Date [...] mouth continuous. 0 Active Ergocalciferol 1.25 MG (76877 UT) Oral Capsule (Vitamin D2(Drisdol)) Take 1 Capsule by mouth. 0 08/13/2020 Active Ferrous Sulfate 325 (65 Fe) MG Oral Tablet (FeroSul) Take 1 Tablet by mouth in the morning. 0 03/29/2022 Active documented as of this encounter (statuses as of 06/13/2023) Active Problems Problem Noted Date Diagnosed Date [...] as of this encounter (statuses as of 06/13/2023) Immunizations Name Administration Dates Next Due SEASONAL [...] or making decisions? (5 years old or older) No 10/27/2018 documented as of this encounter Plan of Treatment Upcoming Encounters Date Type Department Care Team (Late st Contact Info) Description 06/19/2023 9:00 AM EST Laboratory Lab Mobile Phlebotomy [facility] [address] [place] [address] [facility], [facility] Mobile Home Draw [address] [place] [address] 06/26/2023 9:00 AM EST Laboratory Lab Mobile Phlebotomy [facility] [address] [place] [address] [facility] Mobile Home Draw [address] [place] [address] 07/03/2023 9:00 AM EST Laboratory Lab Mobile Phlebotomy [facility] [address] [place] [address] [facility] Mobile [facility] Draw [address] [place] [address] 07/10/2023 9:00 AM EST Laboratory Lab Mobile Phlebotomy [facility] [address] [place] [address] [facility], [facility] Mobile Home Draw [address] [place] [address] 07/11/2023 2:40 PM EST Telemedicine Infectious Disease [facility] [address] [place] [address] Iliana Mulligan MD [address] [place] [address] 07/17/2023 9:00 AM EST Laboratory Lab Mobile Phlebotomy [facility] [address] [place] [address] [facility], [facility] Mobile Home Draw [address] [place] [address] 07/24/2023 9:00 AM EST Laboratory Lab Mobile Phlebotomy [facility] [address] [place] [address] [facility], [facility] Mobile Home Draw [address] [place] [address] 07/31/2023 9:00 AM EST Laboratory Lab Mobile Phlebotomy [facility] [address] [place] [address] [facility] Mobile Home Draw [address] [place] [address] 08/07/2023 9:00 AM EST Laboratory Lab Mobile Phle[facility] [address] [place] [address] [facility] Mobile Home Draw [address] [place] [address] 08/14/2023 9:00 AM EST Laboratory Lab Mobile Phle[facility] [address] [place] [address] [facility] Home Draw [address] [place] [address] 08/21/2023 9:00 AM EST Laboratory Lab Mobile Phle[facility] [address] [place] [address] [facility] Home Draw [address] [place] [address] 08/28/2023 9:00 AM EST Laboratory Lab [facility] Phlebot[facility] [address] [place] [address] [facility] Draw [address] [place] [address] 09/04/2023 9:00 AM EST Laboratory Lab [facility] Phle[facility] [address] [place] [address] [facility] Home Draw [address] [place] [address] 09/11/2023 9:00 AM EST Laboratory Lab Mobile Phlebot[facility] [address] [place] [address] [facility] Home Draw [address] [place] [address] 09/18/2023 9:00 AM EST Laboratory Lab [facility] Phle[facility] [address] [place] [address] [facility] Draw [address] [place] [address] 09/25/2023 9:00 AM EST Laboratory Lab Mobile Phlebotomy [facility] [address] [place] [address] [facility] Draw [address] [place] [address] 10/02/2023 9:00 AM EDT Laboratory Lab Mobile Phlebotomy [facility] [address] [place] [address] [facility] Mobile Home Draw [address] [place] [address] Scheduled Orders Name Type Priority Associated Diagnoses Orde r Schedule CBC WITH WBC DIFFERENTIAL Lab Routine Anemia of chronic renal failure Expected: 06/19/2023, Expires: 06/13/2024 COMPREHENSIVE METABOLIC PANEL Lab Routine Anemia of chronic renal failure Expected: 06/19/2023, Expires: 06/13/2024 FERRITIN Lab Routine Anemia of chronic renal failure Expected: 06/19/2023, Expires: 06/13/2024 IRON SCREEN, INCLUDING TIBC Lab Routine Anemia of chronic renal failure Expected: 06/19/2023, Expires: 06/13/2024 TRANSFERRIN Lab Routine Anemia of chronic renal failure Expected: 06/19/2023, Expires: 06/13/2024 Scheduled Procedures Name Priority Associated Diagnoses Date/Ti me COLONOSCOPY FLEXIBLE PROXIMAL DIAGNOSTIC Recall History of colon polyps Health Maintenance Due Date Last Done Comments Depression Screening 1967 Albumin/Creatinine Ratio 10/19/1973 Diabetic Foot Exam 10/19/1973 Hepatitis C Screening 10/19/1973 DTaP,Tdap,and Td Vaccines (1 - Tdap) 10/19/1974 Mammogram 1995 Zoster Vaccines (1 of 2) 10/19/2005 Hepatitis B (1 of 3 - Risk 3-dose series) 2015 Lipid Panel 12/24/2016 12/25/2011 Diabetic Eye Exam 10/08/2019 10/07/2018 DXA Scan 10/19/2020 HbA1c 02/03/2021 08/06/2020, 04/22, 01/28/2019, Additional history exists Pneumococcal Vaccine: 65+ Years (3 - PPSV23 or PCV20) 03/29/2021 03/29/2016, 05/31/2015 TSH 10/06/2021 10/06/2020, 09/10/2009 GFR 10/07/2021 10/07/2020, 09/20, 08/06/2020, Additional history exists COVID-19 Vaccine (2 - 2022-24 season) 2023 09/07/2020 Influenza Vaccine (FLU shot) (#1) 2023 04/05/2020, 05/06/2019, 04/21/2018 COLONOSCOPY-EVERY 5 YRS AGES 18-100 10/30/2023 10/29/2018, 08/20/2018, 08/20/2018, Additional history exists GARDASIL-HPV IMMUNIZATION SERIES Aged [...] the patient have Health Care Power of Drift Miner? No Care Teams Commercial Singer Relationship Specialty Start Date End Date Aiyana Asencio MD [facility] [address] [place] [address] PCP - General Family Medicine 08/23/18 documented as of this encounter
--- OUTSIDE RECORDS SUMMARY | 2023-07-06 11:34 | External Medical Summary | Continuity of Care Document ---
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 Role Phone Aiyana Asencio Stephanie Primary Care Physician [phone] Encounter [facility] JESSICA [id number] Date(s): 05/16/23 - 05/16/23 [facility] [address] [place] [address] [phone] Encounter Diagnosis Pulmonary HTN(Discharge Diagnosis) - 05/16/23 Diastolic CHF(Discharge Diagnosis) - 05/16/23 Morbid obesity(Discharge Diagnosis) - 05/16/23 Preop examination(Discharge Diagnosis) - 05/16/23 Discharge Disposition: Home or Self Care Attending Physician: SCOTT Ribeiro Sarah A Allergies, Adverse Reactions, Alerts Substance Reaction Severity Status ciprofloxacin nausea, body aches, joint pain and cramp ing Active albuterol itching Active seafood hives, throat closed, SOB Ac tive sulfites itching Active IVP dye rash and swelling Active Assessment and Plan Extracted from: Title:Cardiology Office Visit Note Author:SCOTT Adams rd, Sarah A Date:05/16/23 IMPRESSIONS: 1. Multifactorial dyspnea. 2. Significant hypoxemia. 3. Severe Pulmonary hypertension. 4. Obesity hypoventilation syndrome, on BiPAP. 5. Chronic oxygen use, 4L O2 6. Morbid obesity, turned down for weight loss surgery. 7. Uncontrolled diabetes mellitus type 2. 8. History of acute kidney injury and chronic kidney disease. 9. Chronic right-sided and diastolic heart failure. Ms. Molina's respiratory status, diastolic heart failure, and severe pulmonary hypertension secondary to morbid obesity make her a very high risk candidate for any kind of anesthesia. I did speak with her surgeon by phone this morning. The plan had been for local block and conscious sedation but I think even conscious sedation is going to be dangerous. I doubt she can support her airway once sedated. I discussed this with Ms. Molina and she agrees that she feels worried she would not do well in a surgery given how sob she feels even going from leaning back to sitting up. Ms. Molina asked if she could continue to double up on her furosemide given her weeping legs and increased sob. She can do so but should have renal function checked if ongoing for more than 3-4 days. Ms. Molina has not been able to leave the house for a while due to pain and sob and so has not gone to the cancer center for her routine blood work. In the end, any intervention to relieve her heart failure symptoms are only palliative in nature. She can return to the clinic on an as needed basis. Immunizations Given and Recorded Vaccine Date Status Refusal Reason SARS-CoV-2 (COVID-19) mRNA-1273 vaccine 09/07/20 G iven influenza virus vaccine, inactivated 04/05/20 Give n influenza virus vaccine, inactivated 04/13/17 Give n influenza virus vaccine, inactivated 03/29/16 Give n influenza virus vaccine, inactivated 05/31/15 Give n pneumococcal 23-valent vaccine 03/29/16 Given tetanus/diphtheria/pertuss, acel (Tdap) 03/29/16 G iven pneumococcal 13-valent vaccine 05/31/15 Given Medications Accu-Chek Nova Plus Test Strips Start: 04/10/19 12:55:00 EDT, See Instructions, Disp# 200 unit, Refills: 11, Use to check glucose 4-6 times daily ICD-10: E11.319, other Start Date: 04/10/19 Status: Ordered ACCU-CHEK NOVA PLUS TEST STRP ACCU-CHEK NOVA PLUS TEST STRP, See Instructions, Disp# 200 strip, Refills: 0, TEST four times a day to 6 TIMES A DAY, [facility]acy [id number] Start Date: 07/18/21 Status: Ordered albuterol-ipratropium 2.5 mg-0.5 mg/3 mL inhalation solution Start: 10/31/22 12:54:00 EDT, See Instructions, Disp# 90 mL, Refills: 5, 3 ML INHALED THREE TIMES ADAY NEEDED FOR SHORTNESS OF BREATH OR WHEEZING, Pharmacy: [facility] #[id number] Start Date: 10/31/22 Status: Ordered BD 1 mL Ultra-Fine Insulin Syringe 30G x 1/2" Start: 07/11/17 10:06:00, See Instructions, Disp# 3 box, Refills: 5, use QID, Dx : E11.9, Pharmacy:[address] Start Date: 07/11/17 Status: Ordered EpiPen 2-Andres 0.3 mg injectable kit Start: 09/10/15 19:58:00, 0.3 mg =, IM, ONCE, Disp# 1 unit, Refills: 0, Pharmacy: [address] Start Date: 09/10/15 Status: Ordered FeroSul 325 mg (65 mg elemental iron) oral tablet Start: 03/29/22 13:05:00 EDT, See Instructions, Disp# 60 tab, Refills: 5, take 1 tablet by mouth twice a day, [facility]acy: [id number] Start Date: 03/29/22 Status: Ordered fluticasone 50 mcg/inh nasal spray See Instructions, Disp# 16 g, Refills: 5, instill 2 sprays into each nostril once daily, Pharmacy: [address] Start Date: 09/13/20 Status: Ordered furosemide 20 mg oral tablet Start: 12/11/22 8:21:00 EDT, See Instructions, Disp# 60 tab, Refills: 11, take 2 tablets by mouth once daily, [id number] Start Date: 12/11/22 Status: Ordered glucose test strips Start: 12/14/17 9:37:57 EDT, See Instructions, Disp# 200 unit, Refills: 11, Ultra One touch; test QID to 6 times a day DX : E11.65, Pharmacy: [address] Start Date: 12/14/17 Status: Ordered Humalin UV 500 Start: 08/30/18 15:59:00 EST, Humalin UV 500, Note to Pharmacy: 60 units in AM & lunch, 70 dinner Start Date: 08/30/18 Status: Ordered levalbuterol CFC free 45 mcg/inh inhalation aerosol Start: 01/26/20 11:30:00 EDT, 2 puff, inhaled, q4h, Disp# 2 each, Refills: 5, PRN: as needed for wheezing, Pharmacy: [address] Start Date: 01/26/20 Status: Ordered levothyroxine 112 mcg (0.112 mg) oral tablet take 1 tablet by mouth once daily Start Date: 09/20/22 Status: Ordered montelukast 10 mg oral tablet Start: 10/16/22 9:11:00 EDT, See Instructions, Disp# 30 tab, Refills: 5, take 1 tablet by mouth every evening, Pharmacy: [facility] #[id number] Start Date: 10/16/22 Status: Ordered Mucinex DM 600 mg-30 mg oral tablet, extended release Start: 04/20/20 7:51:00 EDT, 1 tab, PO, q12h, PRN: congestion Start Date: 04/20/20 Status: Ordered Nitrostat 0.4 mg sublingual tablet Start: 03/10/21 16:35:00 EDT, 1 tab, SL, q5min, Disp# 25 tab, Refills: 1, PRN: as needed for chest pain, Pharmacy: [facility] Start Date: 03/10/21 Stop Date: 05/09/21 Status: Ordered ONETOUCH ULTRA BLUE TEST STRP ONETOUCH ULTRA BLUE TEST STRP, See Instructions, Disp# 200 strip, Refills: 6, TEST four times a dayto 6 TIMES A DAY, Pharmacy [address] Start Date: 05/11/20 Status: Ordered Oxygen Start: 11/01/17 10:35:00 EDT, Oxygen, See Instructions, PRN: QHS and PRN while asleep, 3 Liters viaN/C Wear with all hours of sleep Start Date: 11/01/17 Status: Ordered Procrit 10,000 units/mL injectable solution Start: 05/16/23 14:20:00 EDT Start Date: 05/16/23 Status: Ordered rosuvastatin 20 mg oral tablet Start: 02/09/23 13:38:00 EDT, See Instructions, Disp# 30 tab, Refills: 5, take 1 tablet by mouth atbedtime, Pharmacy: [facility] #[id number] Start Date: 02/09/23 Status: Ordered traMADol 50 mg oral tablet Start: 12/06/22 10:57:00 EDT, 1 tab, PO, q6h, Disp# 120 tab, Refills: 5, PRN: as needed for pain, Pharmacy: [facility] #[id number] Start Date: 12/06/22 Stop Date: 06/04/23 Status: Ordered triamcinolone 0.1% topical cream Start: 10/30/22 15:05:00 EDT, 1 appl, topical, bid, Disp# 454 g, Pharmacy: [facility] #[id number] Start Date: 10/30/22 Stop Date: 11/13/22 Status: Ordered Mental Status 05/16/23 Barriers to Learning one year None evide nt Mandatory Health Literacy Documentation Yes Health Literacy 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 Barriers N ever Primary Language Moroccan Problem List Condition Confirmation Course Effective Dates Status H ealth Status Informant Acquired lymphedema of lower extremity Confirmed Active Acute respiratory failure Confirmed Active 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 Confirmed Active Anemia Confirmed Active Cellulitis Confirmed 09/18/13 Active Chest pain Confirmed Active Chronic kidney disease (CKD) Confirmed Active Congestive heart failure Confirmed Active CHF (congestive heart failure) Confirmed Active CAD (coronary artery disease) 1 Confirmed 01/11/18 Active CAD (coronary artery disease) Confirmed Active Cough Confirmed Active Generalized osteoarthritis of multiple sites Confirmed Active DIABETES MELLITUS Confirmed Active Diastolic CHF Confirmed Active Hospital discharge follow-up Confirmed Active Glycosuria Confirmed Active Herpes zoster Confirmed Active Hypomagnesemia Confirmed Active Hypothyroid Confirmed Active Hypoxia Confirmed Active Chronic pain of right knee Confirmed Active Morbid obesity Confirmed Active Morbid obesity Confirmed Active Obesity Confirmed Active Bilateral primary osteoarthritis of knee Confirmed Active Bright red rectal bleeding Confirmed Active Puente's cyst of knee Confirmed Active Thyroid nodule Confirmed Active Weight disorder Confirmed Active 1PCI of proximal circumflex posterolateral branch w/ BIB Diagnosis Diagnosis Type Effective Dates Health Status Clinical Service Informant Diastolic CHF Discharge Diagnosis 05/16/23 Non-Specified Pulmonary HTN Discharge Diagnosis 05/16/23 Non-Specified Preop examination Discharge Diagnosis 05/16/23 Non-Specified Morbid obesity Discharge Diagnosis 05/16/23 Non-Specified Procedures Procedure Date Related Diagnosis Body Site Status Fine needle aspiration biops y of thyroid 1 10/10/22 Completed Ultrasound scan of thyroid 2 10/10/22 Completed X-ray 3 01/10/21 Completed Chest x-ray 4 02/26/19 Completed CAT scan 5 02/24/19 Completed Doppler ultrasonography of v ein of extremity, RLE 6 02/24/19 Completed Chest x-ray 7 01/20/19 Completed Enteroscopy 8 12/11/18 Completed 12 lead ECG (regime/therapy) 10/25/18 Completed CAT scan 9 10/25/18 Completed Computed tomography of chest without contrast (procedure) 10/25/18 Completed Doppler ultrasonography of v eins of bilateral lower extremities 10/25/18 Comp leted Plain chest X-ray (procedure) 10/25/18 Completed Plain chest X-ray (procedure) 10/04/18 Completed 12 lead ECG (regime/therapy) 09/19/18 Completed Doppler ultrasonography of v ein of right lower limb 09/12/18 Completed 12 lead ECG (regime/therapy) 09/04/18 Completed Plain chest X-ray (procedure) 09/04/18 Completed CXR - Chest X-ray 10 08/30/18 Comp leted Plain chest X-ray (procedure) 08/30/18 Completed COLONOSCOPY AND BIOPSY 11, 12 08/20/18 Completed 12 lead ECG (regime/therapy) 08/16/18 Completed Chest x-ray 13 08/16/18 Completed Plain chest X-ray (procedure) 08/16/18 Completed 12 lead ECG (regime/therapy) 06/25/18 Completed Plain chest X-ray (procedure) 06/25/18 Completed Ultrasonography of bilateral kidneys 05/15/18 Completed Ultrasound of kidney 14 05/15/[address] of abdomen and pelvis wit hout contrast 15 03/25/[address] of chest without contrast 16 03/19/18 Completed Foot X-ray 17 03/15/18 Completed CXR - Chest X-ray 18 01/22/18 Comp leted Plain chest X-ray (procedure) 01/22/18 Completed Cardiac catheterisation 19 01/11/18 Completed CXR - Chest X-ray 20 12/27/17 Comp leted Plain chest X-ray (procedure) 12/27/17 Completed Stress echocardiography usin g dobutamine 21 11/19/17 Completed Polysomnography 22 11/14/17 Comple stacia CXR - Chest X-ray 23 10/23/17 Comp leted Plain chest X-ray (procedure) 10/23/17 Completed Chest x-ray 24 09/20/17 Completed Plain chest X-ray (procedure) 09/20/17 Completed Pulmonary ventilation study (procedure) 09/20/17 Completed Doppler 25 09/19/17 Completed Doppler ultrasound of vein o f both lower extremities 09/19/17 Completed Chest x-ray 26 09/17/17 Completed Echocardiogram 27 09/17/17 Complet ed Plain chest X-ray (procedure) 09/17/17 Completed Ultrasonography of soft tiss ue of head and neck 04/16/17 Completed Ultrasound scan of thyroid 28 04/16/17 Completed Knee X-ray-right 29 04/07/16 Compl eted Colonoscopy 30, 31 01/04/16 Comple stacia Abdominal ultrasound complete 32 11/30/15 Completed CXR - Chest X-ray 33 11/26/15 Comp leted Chest X-ray 34 03/28/15 Completed ECG 35 03/28/15 Completed [facility] A benign follicular nodule with cystic degeneration [facility] Imp[facility]: 1. Ultrasound-guided left thyroid nodule FNA x2 3XR CALCANEUS RT IMPRESSION: No osseous erosion identified to suggest osteomyelitis. 4[facility] Impression: 1. No change in the cardiomegaly and diffuse interstitial thickening. This can be chronic or due tomild congestive change 5CT Scan of chest without IV contrast IMPRESSION: 1. Midly enlarged mediastinal lymph nodes, sligthly decreased in size since CT of October 25, 2018. these are likely benign. 2. Mosaic attenuation with groundglass opacities within the lungs which may reflect air trapping. No consolidation. [facility] Impression: 1. Technically difficult exam but no evidence of DVT within the RLE 2. Small right popliteal cyst [facility] Impression: 1. Suspected mild mediastinal lymphadenopathy 2. Cardiomegaly and improving pulmonary vascular congestion 3. No evidence of focal pulmonary consolidation 8Normal esophagus. Normal stomach. Normal examined duodenum. The examined portion of the jejunum was normal. Good depth of insertion achieved. No AVM's identified. No blood seen. 9IMPRESSION: 1. Suggestion of mild pulmonary edema with trace pleural effusions and mild bibasilar atelectasis. 2.Mediastinal and hilar adenopathy has sligthly progressed from 03/19/2018, nonspecific. 3. Multinodular goiter. 4. Prior granulomatous disesase. 101. there is prominence of the central pulmonary vessels. Correlate clinically for evidence of mild contestive change. 2. No airspace consolidation or pleural effusion is identified. 112 tubular adenomas at hepatic flexure 12mult small & lg-mouthed diverticulae of sigmoid. Non-bleeding int. hemorrhoids. 13[facility] Impression: 1. Mild cardiomegaly with volume overload/congestive change. No lita pulmonary edema at this time 141. No renal masses identified. 2. No evidence of hydronephrosis. 15IMPRESSION: 1. Mild chronic sigmoid diverticulosis. 2. No evidence for diverticulitis. 3. Otherwise no acute process of the abdomen or pelvis. 161. Mildly prominent and enlarged lymph nodes about the mediastinum have decreased in size from comparison study 10/25/17 suggesting benign etiology 2. Scattered punctate calcified granulomata about the bilateral lungs compatible with prior granulomatous disease 3. No lobar airspace consolidation to suggest pneumonia. 4. Multinodular thyroid goiter. 5. Hepatic steatosis. 17[facility] Impression: 1 Soft tissue swelling with no acute bony abnormality identified 2. Osteopenia, mild degenerative change and large plantar heel spur 181. Mild nonspecific intersitial thickening. 2. No lobar consolidaiton. 19Initial cineangiograms demonstrated 90% stenosis of the proximal circumflex posterolateral branch. Final cineangiograms deomstrated no residual stenosis, no uncovered dissection, LAKESHA grade 3 flow throughout the circumflex posterolateral branch and the circumflex. Successful angioplasty, drug eluting stent placement. 20Mild cardiac enlargement with no active disease in the chest. 21Negative 22Moderate obstructive sleep apnea. 1. It would be advised that the patient give a trial of CPAP or BiPAP. Thisperhaps could be accomplished by a full titration study. Alternatively, she could be treated with auto CPAP or perhaps auto BiPAP. To be treated for auto BiPAP, we will need to be noted that she had failed CPAP. As noted in her post sleep questionnaire, she indicated CPAP was worse than BiPAP. 2. Weight loss is advised in light of the severe elevation of body mass index. 3. If the patient does not wish to consider CPAP or biPAP, consideration could be given to referralfor an oral appliance if indeed she has her own teeth and they are in fairly good condition. 4. It is advised that she avoid sleeping on her side or on her stomach. She should avoid sleeping in the supine position. 5. She should continue wearing nocturnal oxygen therapy. 231. Pulmonary vascular congestion with suspected pulmonary edema. 2. Stable cardiomegaly. 24Cardiomegaly with improved pulmonary edema Minimal subsegmental opacities suggest atelectasis. 251. Technically difficult exam but no evidence of deep venous thrombus within the bilateral lower extremities. 2. 5.2x1.7x2 cm right popliteal cyst. 26Radiographic evidence of congestive failure with mild interstitial edema. Clinical and radiographicf/u is recommended. 27EF=65-70%, no valvular disease 28[facility] Impression: 1. The right thyroid lobe appears surgically absent 2. Multinodular residual thyroid gland as described. Overall, the size of the nodules are not significantly changed compared to the prior study 29[facility] Impression: 1. No acute bony abnormality is seen 2. arthrititc change as above, greatest at the patellofemoral articulation. 3. small joint effusion. 30next scope in 5 yrs. 31Diverticulosis in the sigmoid colon. Internal hemorrhoids. the examined portion of the ileum was normal. the examination was otherwise normal on direct retroflexion views. No specimens collected. 32[facility] Impression: 1. Hepatomegaly demonstrating fatty change 2. The spleen is normal in size 3. Normal gallbladder. No gallstones 33Generalized intersistial and bronchovascular prominence. The appearane is suggestive of basilar bronchitis. 34[facility] Impression: 1. Mild cardiac enlargement with no acute cardiopulmonary abnormality. 35[facility] Impression: 1. No arrhythmia, no acute ST changes Social History Social History Type Response Smoking Status Never smoked cigaret melissa Sex Female Cardiology Outpatient Note * SCOTT Ribeiro Sarah A: PERFORM Event Display: Cardiology Outpt Note Authored Date: [id number] Primary Care Provider MD Elif, Aiyana Brown Chief Complaint telehealth appt, scheduled for toe ampuation by podiatry. History of Present Illness Ms. Molina initiated a [facility] for [facility]op [facility]. She is at home, I am in the office. She gave her name and date of . She agreed to a billable visit. She has been dealing with a diabetic foot ulcer since November. She has done 6 weeks of antibiotics. The infectionis now osteomyelitis in the 5th toe on the right. She has been unable to get to appointments or really leave her house due to pain, sob, and edema in her LE. She does have significant lymphedema and has been having home PT lymphedema therapy for it. She notes increased sob. She has been unable to even sit up or use her bedside commode without becoming sob. She uses 4L NC O2 chronically and 5L with any exertion. Yesterday and today she has doubled up on her furosemide. Review of Systems All other systems reviewed and negative except as discussed in the HPI Physical Exam Physical Examination General: Alert and oriented, No acute distress. Respiratory: Lungs are clear to auscultation, Respirations are mildly labored. Integumentary: Warm, Dry, [place] Neurologic: Alert, Oriented. Cognition and Speech: Speech clear and coherent. Psychiatric: Cooperative, Appropriate mood & affect. Assessment/Plan IMPRESSIONS: 1. Multifactorial dyspnea. 2. Significant hypoxemia. 3. Severe Pulmonary hypertension. 4. Obesity hypoventilation syndrome, on BiPAP. 5. Chronic oxygen use, 4L O2 6. Morbid obesity, turned down for weight loss surgery. 7. Uncontrolled diabetes mellitus type 2. 8. History of acute kidney injury and chronic kidney disease. 9. Chronic right-sided and diastolic heart failure. Ms. Molina's respiratory status, diastolic heart failure, and severe pulmonary hypertension secondary to morbid obesity make her a very high risk candidate for any kind of anesthesia. I did speak with her surgeon by phone this morning. The plan had been for local block and conscious sedation but Ithink even conscious sedation is going to be dangerous. I doubt she can support her airway once mariella stacia. I discussed this with Ms. Molina and she agrees that she feels worried she would not do well in a surgery given how sob she feels even going from leaning back to sitting up. Ms. Molina asked if she could continue to double up on her furosemide given her weeping legs and increased sob. She can do so but should have renal function checked if ongoing for more than 3-4 days. Ms. Molina has not been able to leave the house for a while due to pain and sob and so has not gone to the cancer center for her routine blood work. In the end, any intervention to relieve her heart failure symptoms are only palliative in nature. She can return to the clinic on an as needed basis. 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 Puente's cyst of knee Bilateral primary osteoarthritis of knee Bright red rectal bleeding CAD (coronary artery disease) CAD (coronary artery disease) Cellulitis Chest pain CHF (congestive heart failure) Chronic kidney disease (CKD) Chronic pain of right knee Congestive heart failure Cough DIABETES MELLITUS Diastolic CHF Generalized osteoarthritis of multiple sites Glycosuria Herpes zoster Hospital discharge follow-up Hypomagnesemia Hypothyroid Hypoxia Morbid obesity Morbid obesity Obesity Thyroid nodule Weight disorder Historical Acute colitis Acute recurrent sinusitis Parotitis Strep pharyngitis Procedure/Surgical History Fine needle aspiration biopsy of thyroid (10/10/2022)Ultrasound scan of thyroid (10/10/2022)X-ray (01/10/2021)Chest x-ray (02/26/2019)CAT scan (02/24/2019)Doppler ultrasonography ofvein of extremity, RLE (02/24/2019)Chest x-ray (01/20/2019)Enteroscopy (12/11/2018)CAT scan (10/25/2018)12 lead ECG (regime/therapy) (10/25/2018)Plain chest X-ray (procedure) (10/25/2018)Doppler ultrasonography of veins of bilateral lower extremities (10/25/2018)Computed tomography of chest without contrast (procedure) (10/25/2018)Plain chest X-ray (procedure) (10/04/2018)12 lead ECG (regime/therapy) (09/19/2018)Doppler ultrasonography of vein of right lower limb (09/12/2018)Plain chest X-ray (procedure) (09/04/2018)12 lead ECG (regime/therapy) (09/04/2018)CXR - Chest X-ray (08/30/2018)Plain chest X-ray (procedure) (08/30/2018)COLONOSCOPY AND BIOPSY (08/20/2018)Chest x- ray (08/16/2018)Plain chest X-ray (procedure) (08/16/2018)12 lead ECG (regime/therapy) (08/16/2018)Plain chest X-ray (procedure) (06/25/2018)12 lead ECG (regime/therapy) (06/25/2018)Ultrasound of kidney (05/15/2018)Ultrasonography of bilateral kidneys (05/15/2018)CT of abdomen and pelvis without contrast (03/25/2018)CT of chest without contrast ()Foot X-ray (03/15/2018)CXR - Chest X-ray (01/22/2018)Plain chest X-ray (procedure) (01/22/2018)Cardiac catheterisation (01/11/2018)CXR - Chest X-ray (12/27/2017)Plain chestX-ray (procedure) (12/27/2017)Stress echocardiography using dobutamine (11/19/2017)Polysomnography (11/14/2017)CXR - Chest X-ray (10/23/2017)Plain chest X-ray (procedure) (10/23/2017)Chest x-ray (09/20/2017)Pulmonary ventilation study (procedure) (09/20/2017)Plain chest X-ray (procedure) (09/20/2017)Doppler (09/19/2017)Doppler ultrasound of vein of both lower extremities (09/19/2017)Echocardiogram (09/17/2017)Chest x-ray (09/17/2017)Plain chest X-ray (procedure) (09/17/2017)Ultrasound scan of thyroid (04/16/2017)Ultrasonography of soft tissue of head and neck (04/16/2017)Knee X-ray-right (04/07/2016)Colonoscopy (01/04/2016)Abdominal ultrasound complete (11/30/2015)CXR - Chest X-ray (11/26/2015)ECG (03/28/2015)Chest X-ray (03/28/2015)Thyroidectomy (2004) Medications albuterol-ipratropium(albuterol-ipratropium 2.5 mg-0.5 mg/3 mL inhalation solution), See Instructions dextromethorphan-guaifenesin(Mucinex DM 600 mg-30 mg oral tablet, extended release), 1 tab, PO, q12h, PRN diabetic supplies(glucose test strips), See Instructions, 11 refills diabetic supplies(Accu-Chek Nova Plus Test Strips), See Instructions, 11 refills EPINEPHrine(EpiPen 2-Andres 0.3 mg injectable kit), 0.3 mg, IM, ONCE epoetin milo(Procrit 10,000 units/mL injectable solution) ferrous sulfate(FeroSul 325 mg (65 mg elemental iron) oral tablet), See Instructions fluticasone nasal(fluticasone 50 mcg/inh nasal spray), See Instructions furosemide(furosemide 20 mg oral tablet), See Instructions hydrOXYzine(Atarax 25 mg oral tablet), 25 mg= 1 tab, PO, qid, PRN, 5 refills levalbuterol(levalbuterol CFC free 45 mcg/inh inhalation aerosol), 90 mcg= 2 puff, inhaled, q4h, PRN, 5 refills levothyroxine(levothyroxine 112 mcg (0.112 mg) oral tablet) montelukast(montelukast 10 mg oral tablet), See Instructions nitroglycerin(Nitrostat 0.4 mg sublingual tablet), 0.4 mg= 1 tab, SL, q5min, PRN, 1 refills rosuvastatin(rosuvastatin 20 mg oral tablet), See Instructions syringe(BD 1 mL Ultra-Fine Insulin Syringe 30G x 1/2"), See Instructions, 5 refills traMADol(traMADol 50 mg oral tablet), 50 mg= 1 tab, PO, q6h, PRN, 5 refills triamcinolone topical(triamcinolone 0.1% topical cream), 1 appl, topical, bid unknown medication(Oxygen), See Instructions, PRN unknown medication(Humalin UV 500) unlisted medication(ONETOUCH ULTRA BLUE TEST STRP), See Instructions unlisted medication(ACCU-CHEK NOVA PLUS TEST STRP), See Instructions Allergies IVP dyerash and swelling albuterolitching ciprofloxacinnausea, body aches, joint pain and cramping seafoodhives, throat closed, SOB sulfitesitching Social History Smoking Status Never smoked cigarettes Alcohol - Denies Alcohol Use Exercise Times per week:3-4 times/week Exercise type:Walking Tobacco Use:Never smoker Electronic Signature on File CC: Melissa Camilo PA-C,MPAS [address] [address] CC: Aiyana Asencio MD [address] [address] CC: Emily Diez DPM [facility] [address] [place] [address]. [address] [place] [address] * Electronically Reviewed/Signed by: SCOTT Camara Author Signature Dt/Tm:05/16/2023 03:39 PM [facility] [place] [facility] Patient Care team information Care Team Personnel Name: SCOTT Wheatley, Isabelle Lamar Position: Nurse Pract - Pulmonary Med Member Role: Lifetime Relationship Address: Address: [address] [place] [address] [place] Name: MD Elif, Aiyana Brown Position: Physician - Family Med Member Role: Primary Care Provider Address: Address: [address] [place] [address] [address] [place] [address] Care Team Related Persons Name: NING MOLINA Address: [place] Address: home [address] [place], [place] [id number] [place] Name: NING MOLINA Address: home [address] [facility] [place], [place] [id number]
--- OUTSIDE RECORDS SUMMARY | 2023-07-06 11:34 | External Medical Summary ---
Author Name Unknown Address Unknown Organization [id number]:[facility] [place] [address] - [address] [place] [address] Laboratory Report Ordering Provider Test Date Status CHRISTIANO MCENIL 06/12/2023 11:40:00 Final Observation Date Value Abnormality Reference (Units ) Status SYNC LEUKOCYTES IN BLOOD BY AUTOMATED COUNT 06/12/2023 11:40:00 7.41 4.00-10.80 (K/uL) Final Segs 06/12/2023 11:40:00 65.7 40.0-75.0 (%) Final Lymphs % 06/12/2023 11:40:00 15.2 Below low normal 18.0-42.0 (%) Final Monos 06/12/2023 11:40:00 13.0 Above high normal 1.0-11.0 (%) Final Eosinophils 06/12/2023 11:40:00 5.4 0.0-6.0 (%) Final Basos 06/12/2023 11:40:00 0.7 0.0-2.0 (%) Final Absolute Segs 06/12/2023 11:40:00 4.87 1.80-7.70 (K/uL) Final Lymphs, absolute 06/12/2023 11:40:00 1.13 1.00-4.80 (K/ul) Final Monos, Abs 06/12/2023 11:40:00 0.96 0.00-1.10 (K/uL) Final Eos, Abs 06/12/2023 11:40:00 0.40 0.00-0.70 (K/uL) Final Basos, Abs 06/12/2023 11:40:00 0.05 0.00-0.20 (K/uL) Final Performing Location [facility] [place] 57-[address] 0 - [address] [place] [address]
--- OUTSIDE RECORDS SUMMARY | 2023-07-06 11:34 | External Medical Summary | Summary of Care ---
Author Name Unknown Organization [facility] Address [address] [place] [address] Phone [phone] Care Team Providers Care Child Day Care Provider Name Role Phone Aiyana Asencio MD Primary Care Provider [phone] Reason for Referral * Evaluate & Treat - Unlimited Visits (Within 10 days (routine)) - Authorized Specialty Diagnoses / Procedures Referred By Contmarie t Referred To Contact Infectious Diseases / Infectious Disease Diagnoses Osteomyelitis of third toe of right foot (HCC) Emily Diez DPM [address] [facility] [place] [address] Referral ID Status Reason Start Date Expiration Date Visits Requested Visits Authorized [id number] Authorized Specialty Services Required 3 999 999 Question Answer Referral Priority Within 10 days (routine) Where should this appointment be scheduled? Lucy What condition is the patient being seen for? All Other Conditions Comments Rt rt toe osteomyelitis, Notes scanned in [facility] on 05/22/23 Encounter Details Date Type Department Care Team (Late st Contact Info) Description 05/22/2023 Orders Only [facility], [place] [address] [place] [address] Ext *DO NOT REMOVE THIS DEPARTMENT* [place] [address] Request, External Referral Osteomyelitis of third toe of right foot (HCC)* Allergies Active Allergy Reactions Criticality Noted Date Comments Albuterol 03/13/2023 Other Reaction(s): itching Ciprofloxacin Rash 06/11/2019 Headache, Made left arm really heavy Amlodipine Besylate Edema Other 05/06/2019 Legs Other - Drugs 06/01/2005 CAT SCAN DYE ALLERGY!!!!!!!!!!!!!!!!!!!! !!! HIVES,THROAT CLOSES Shellfish Allergy 12/09/2015 Sulfites Abdominal pain 10/13/2009 documented as of this encounter (statuses as of 05/22/2023) Medications Medication Sig Dispensed Refills Start Date [...] mouth continuous. 0 Active Ergocalciferol 1.25 MG (09720 UT) Oral Capsule (Vitamin D2(Drisdol)) Take 1 Capsule by mouth. 0 08/13/2020 Active Ferrous Sulfate 325 (65 Fe) MG Oral Tablet (FeroSul) Take 1 Tablet by mouth in the morning. 0 03/29/2022 Active documented as of this encounter (statuses as of 05/22/2023) Active Problems Problem Noted Date Diagnosed Date [...] as of this encounter (statuses as of 05/22/2023) Immunizations Name Administration Dates Next Due SEASONAL [...] Care Team (Late st Contact Info) Description 05/29/2023 9:00 AM EST Laboratory [facility] [address] [place] [address] [facility] [address] [place] [address] 06/05/2023 9:00 AM EST Laboratory [facility] [address] [place] [address] [facility] [address] [place] [address] 06/12/2023 9:00 AM EST Laboratory [facility] [address] [place] [address] [facility] [address] [place] [address] 06/19/2023 9:00 AM EST Laboratory [facility] [address] [place] [address] [facility], [facility] [address] [place] [address] 06/26/2023 9:00 AM EST Laboratory [facility] [address] [place] [address] [facility] [address] [place] [address] 07/03/2023 9:00 AM EST Laboratory [facility] [address] [place] [address] [facility], [facility] [address] [place] [address] 07/10/2023 9:00 AM EST Laboratory [facility] [address] [place] [address] Gmc, [facility] Draw [address] [place] [address] 07/11/2023 2:40 PM EST Telemedicine Infectious Disease [facility] [address] [place] [address] Iliana Mulligan MD [address] [place] [address] 07/17/2023 9:00 AM EST Laboratory [facility] [address] [place] [address] Gm, Gml [facility] Home Draw [address] [place] [address] 07/24/2023 9:00 AM EST Laboratory [facility] [address] [place] [address] Gmc, [facility] Draw [address] [place] [address] 07/31/2023 9:00 AM EST Laboratory [facility] [address] [place] [address] Gmc, [facility] Home Draw [address] [place] [address] 08/07/2023 9:00 AM EST Laboratory [facility] [address] [place] [address] Gmc, [facility] Home Draw [address] [place] [address] 08/14/2023 9:00 AM EST Laboratory [facility] [address] [place] [address] Gmc, [facility] Draw [address] [place] [address] 08/21/2023 9:00 AM EST Laboratory [facility] [address] [place] [address] Gmc, [facility] Draw [address] [place] [address] 08/28/2023 9:00 AM EST Laboratory [facility] [address] [place] [address] Gmc, [facility] Draw [address] [place] [address] 09/04/2023 9:00 AM EST Laboratory [facility] [address] [place] [address] Gmc, [facility] Draw [address] [place] [address] 09/11/2023 9:00 AM EST Laboratory [facility] [address] [place] [address] Gmc, [facility] [address] [place] [address] 09/18/2023 9:00 AM EST Laboratory [facility] [address] [place] [address] Gmc, [facility] Draw [address] [place] [address] 09/25/2023 9:00 AM EST Laboratory [facility] [address] [place] [address] Gmc, [facility] Draw [address] [place] [address] 10/02/2023 9:00 AM EDT Laboratory Lab [facility] [address] [place] [address] [facility] Draw [address] [place] [address] Scheduled Procedures Name Priority Associated Diagnoses Date/Ti me COLONOSCOPY FLEXIBLE PROXIMAL DIAGNOSTIC Recall History of colon polyps Scheduled Referrals Name Type Priority Associated Diagnoses Orde r Schedule INFECTIOUS DISEASE REFERRAL OP Referral Within 10 days (routine) Osteomyelitis of third toe of right foot (HCC) Ordered: 05/22/2023 Health Maintenance Due Date Last Done Comments [...] as of this encounter Visit Diagnoses Diagnosis Osteomyelitis of third toe of right foot (HCC)- Primary documented in this encounter Advance Directives Latest [...] the patient have Health Care Power of Cat Breeder? No Care Teams Child Day Care Provider Relationship Specialty Start Date End Date Aiyana Asencio MD [address] [place] [address] PCP - General Family Medicine 08/23/18 documented as of this encounter
--- OUTSIDE RECORDS SUMMARY | 2023-07-06 11:34 | External Medical Summary ---
Author Name Unknown Address Unknown Organization K0G:[facility] [address] - [address] [place] [address] Laboratory Report Ordering Provider Test Date Status CHRISTIANO MCNEIL 06/19/2023 11:08:00 Final Observation Date Value Abnormality Reference (Units ) Status BUN 06/19/2023 11:08:00 29 Above high normal 6-20 (mg/dL) Final Creatinine 06/19/2023 11:08:00 1.9 Above high normal 0.5-1.0 (mg/dL) Final Glomerular filtration rate/1.73 sq M.predicted [Volume Rate/Area] in Serum, Plasma or Blood by Creatinine-based formula (CKD-EPI) 06/19/2023 11:08:00 28 Below low normal >=60 (mL/min) Final eGFR is calculated based on the CKD-EPI 2020 equation SODIUM 06/19/2023 11:08:00 140 135-146 (m mol/L) Final Potassium 06/19/2023 11:08:00 3.3 Below low normal 3.5 -5.1 (mmol/L) Final Cl 06/19/2023 11:08:00 99 98-107 (mm ol/L) Final CO2 06/19/2023 11:08:00 31 22-32 (mmo l/L) Final Anion gap 06/19/2023 11:08:00 10 7-15 (mmol /L) Final Glucose 06/19/2023 11:08:00 148 Above high normal 70 -120 (mg/dL) Final Albumin 06/19/2023 11:08:00 3.5 Below low normal 3.8 -5.0 (g/dL) Final AST (Aspartate aminotransferase) 06/19/2023 11:08:00 17 10-35 (U/L) Fin al Alk Phos 06/19/2023 11:08:00 102 35-130 (U/ L) Final Bilirubin, Total 06/19/2023 11:08:00 1.1 <=1 .2 (mg/dL) Final Calcium 06/19/2023 11:08:00 9.2 8.4-10.2 ( mg/dL) Final Protein 06/19/2023 11:08:00 8.0 6.0-8.3 (g /dL) Final ALT (Alanine aminotransferase) 06/19/2023 11:08:00 9 Below low normal 10-35 (U/L) Final Performing Location [facility] [place] 57-[address] 0 - [address] [facility] [address]
--- OUTSIDE RECORDS SUMMARY | 2023-07-06 11:34 | External Medical Summary ---
Author Name Unknown Address Unknown Organization [id number]:[facility] [place] [address] - [address] [place] [address] Laboratory Report Ordering Provider Test Date Status CHRISTIANO MCNEIL 06/05/2023 11:15:00 Final Observation Date Value Abnormality Reference (Units ) Status SYNC LEUKOCYTES IN BLOOD BY AUTOMATED COUNT 06/05/2023 11:15:00 6.78 4.00-10.80 (K/uL) Final Segs 06/05/2023 11:15:00 66.7 40.0-75.0 (%) Final Lymphs % 06/05/2023 11:15:00 15.3 Below low normal 18.0-42.0 (%) Final Monos 06/05/2023 11:15:00 12.1 Above high normal 1.0-11.0 (%) Final Eosinophils 06/05/2023 11:15:00 5.5 0.0-6.0 (%) Final Basos 06/05/2023 11:15:00 0.4 0.0-2.0 (%) Final Absolute Segs 06/05/2023 11:15:00 4.52 1.80-7.70 (K/uL) Final Lymphs, absolute 06/05/2023 11:15:00 1.04 1.00-4.80 (K/ul) Final Monos, Abs 06/05/2023 11:15:00 0.82 0.00-1.10 (K/uL) Final Eos, Abs 06/05/2023 11:15:00 0.37 0.00-0.70 (K/uL) Final Basos, Abs 06/05/2023 11:15:00 0.03 0.00-0.20 (K/uL) Final Performing Location [facility] [place] [address] 0 - [address] [place] [address]
--- OUTSIDE RECORDS SUMMARY | 2023-07-06 11:34 | External Medical Summary ---
Author Name Unknown Address Unknown Organization K01:[facility] [place] [address] [place] [address] Laboratory Report Ordering Provider Test Date Status CHRISTIANO MCNEIL 05/22/2023 09:40:00 Final Observation Date Value Abnormality Reference (Units ) Status WBC, Total 05/22/2023 09:40:00 7.67 4.00-10.80 (K/uL) Final RBC 05/22/2023 09:40:00 3.73 3.85-5.15 (M/uL) Final Hemoglobin 05/22/2023 09:40:00 9.1 Below low normal 12.0-15.3 (g/dL) Final HCT 05/22/2023 09:40:00 32.8 Below low normal 36.0-45.2 (%) Final MCV 05/22/2023 09:40:00 87.9 81.5-97.5 (fL) Final MCH 05/22/2023 09:40:00 24.4 27.0-34.0 (pg) Final MCHC 05/22/2023 09:40:00 27.7 32.0-36.0 (g/dL) Final RDW 05/22/2023 09:40:00 23.8 11.5-15.5 (%) Final Platelets 05/22/2023 09:40:00 224 140-400 (K/uL) Final MPV 05/22/2023 09:40:00 10.8 6.6-11.1 (fL) Final Nucleated erythrocytes/100 leukocytes [Ratio] in Blood by Automated count 05/22/2023 09:40:00 0 <=0 (/100 WBCs) Final Performing Location [facility] [place] [address] [place] [address]
--- OUTSIDE RECORDS SUMMARY | 2023-07-06 11:34 | External Medical Summary ---
Author Name Unknown Address Unknown Organization K0G:[facility] 57-[address] - [address] [place] [address] Laboratory Report Ordering Provider Test Date Status CHRISTIANO MCNEIL 05/29/2023 10:09:00 Final Observation Date Value Abnormality Reference (Units ) Status SYNC LEUKOCYTES IN BLOOD BY AUTOMATED COUNT 05/29/2023 10:09:00 5.78 4.00-10.80 (K/uL) Final Segs 05/29/2023 10:09:00 63.2 40.0-75.0 (%) Final Lymphs % 05/29/2023 10:09:00 17.1 Below low normal 18.0-42.0 (%) Final Monos 05/29/2023 10:09:00 12.8 Above high normal 1.0-11.0 (%) Final Eosinophils 05/29/2023 10:09:00 6.6 Above high normal 0.0-6.0 (%) Final Basos 05/29/2023 10:09:00 0.3 0.0-2.0 (%) Final Absolute Segs 05/29/2023 10:09:00 3.65 1.80-7.70 (K/uL) Final Lymphs, absolute 05/29/2023 10:09:00 0.99 Below low normal 1.00-4.80 (K/ul) Final Monos, Abs 05/29/2023 10:09:00 0.74 0.00-1.10 (K/uL) Final Eos, Abs 05/29/2023 10:09:00 0.38 0.00-0.70 (K/uL) Final Basos, Abs 05/29/2023 10:09:00 0.02 0.00-0.20 (K/uL) Final Performing Location [facility] [address] - [address] [place] [address]
--- OUTSIDE RECORDS SUMMARY | 2023-07-06 11:34 | External Medical Summary ---
Author Name Unknown Address Unknown Organization K0G:[facility] 57[address] - [address] [place] [address] Laboratory Report Ordering Provider Test Date Status CHRISTIANO MCNEIL 05/29/2023 10:09:00 Final Observation Date Value Abnormality Reference (Units ) Status WBC, Total 05/29/2023 10:09:00 5.78 4.00-10.8 0 (K/uL) Final RBC 05/29/2023 10:09:00 3.56 3.85-5.15 (M/uL) Final Hemoglobin 05/29/2023 10:09:00 8.8 Below low normal 12 .0-15.3 (g/dL) Final HCT 05/29/2023 10:09:00 30.5 Below low normal 36. 0-45.2 (%) Final MCV 05/29/2023 10:09:00 85.7 81.5-97.5 (fL) Final MCH 05/29/2023 10:09:00 24.7 27.0-34.0 (pg) Final MCHC 05/29/2023 10:09:00 28.9 32.0-36.0 (g/dL) Final RDW 05/29/2023 10:09:00 23.7 11.5-15.5 (%) Final Platelets 05/29/2023 10:09:00 207 140-400 (K /uL) Final MPV 05/29/2023 10:09:00 10.7 6.6-11.1 ( fL) Final Performing Location LAB[facility]ATORY [facility] [email or web address] 57[address] - [address] [place] [address]
--- OUTSIDE RECORDS SUMMARY | 2023-07-06 11:34 | External Medical Summary ---
Author Name Unknown Address Unknown Organization K0G:[facility]ATORY [facility] [place] [address] - [address] [place] [address] Laboratory Report Ordering Provider Test Date Status CHRISTIANO MCNEIL 06/19/2023 11:08:00 Final Observation Date Value Abnormality Reference (Units ) Status SYNC LEUKOCYTES IN BLOOD BY AUTOMATED COUNT 06/19/2023 11:08:00 6.52 4.00-10.80 (K/uL) Final Segs 06/19/2023 11:08:00 64.3 40.0-75.0 (%) Final Lymphs % 06/19/2023 11:08:00 15.3 Below low normal 18.0-42.0 (%) Final Monos 06/19/2023 11:08:00 12.4 Above high normal 1.0-11.0 (%) Final Eosinophils 06/19/2023 11:08:00 7.7 Above high normal 0.0-6.0 (%) Final Basos 06/19/2023 11:08:00 0.3 0.0-2.0 (%) Final Absolute Segs 06/19/2023 11:08:00 4.19 1.80-7.70 (K/uL) Final Lymphs, absolute 06/19/2023 11:08:00 1.00 1.00-4.80 (K/ul) Final Monos, Abs 06/19/2023 11:08:00 0.81 0.00-1.10 (K/uL) Final Eos, Abs 06/19/2023 11:08:00 0.50 0.00-0.70 (K/uL) Final Basos, Abs 06/19/2023 11:08:00 0.02 0.00-0.20 (K/uL) Final Performing Location LABORATORY [facility] [place] [address] - [address] [place] [address]
--- OUTSIDE RECORDS SUMMARY | 2023-07-06 11:34 | External Medical Summary | Summary of Care ---
Author Name Unknown Organization [facility] Address [address] [place] [address] Phone [phone] Care Team Providers Care Sales Promoter Name Role Phone Aiyana Asencio MD Primary Care Provider [phone] Reason for Visit * Reason Comments NEW PATIENT Osteomyelitis 3rd toe on Rt foot * Evaluate & Treat - Unlimited Visits (Within 10 days (routine)) - Pending Review Specialty Diagnoses / Procedures Referred By Contmarie t Referred To Contact Infectious Diseases / Infectious Disease Diagnoses Osteomyelitis (HCC) Jerry Zimmerman MD [address] [address] Referral ID Status Reason Start Date Expiration Date Visits Requested Visits Authorized [id number] Pending Review Specialty Services Required 02/13/[phone] Encounter Details Date Type Department Care Team Description 03/13/2023 Office Visit Infectious Disease [address] [phone] Iliana Mulligan MD [address] [place] [address] Subacute osteomyelitis, right ankle and foot (HCC)* Allergies Active Allergy Reactions Severity Noted Date Comments Albuterol 03/13/2023 Other Reaction(s): itching Ciprofloxacin Rash 06/11/2019 Headache, Made left arm really heavy Amlodipine Besylate Edema Other 05/06/2019 Legs Other - Drugs 06/01/2005 CAT SCAN DYE ALLERGY!!!!!!!!!!!!!!!!!!!!!!! HIVES,THROAT CLOSES Shellfish Allergy 12/09/2015 Sulfites Abdominal pain 10/13/2009 documented as of this encounter (statuses as of 03/13/2023) Medications Medication Sig Dispensed Refills Start Date [...] mouth continuous. 0 Active Ergocalciferol 1.25 MG (08091 UT) Oral Capsule (Vitamin D2(Drisdol)) Take 1 Capsule by mouth. 0 08/13/2020 Active Doxycycline Hyclate 100 MG Oral Capsule Take 1 Capsule by mouth in the morning and 1 Capsule before bedtime. 0 03/05/2023 03/15/2023 Active Ferrous Sulfate 325 (65 Fe) MG Oral Tablet (FeroSul) Take 1 Tablet by mouth in the morning. 0 03/29/2022 Active liothyronine (CYTOMEL) 5 MCG Tablet Take 5 mcg by mouth daily. 0 02/10/2019 03/13/2023 Discontinued (Patient preference/d iscontinuati on) documented as of this encounter (statuses as of 03/13/2023) Active Problems Problem Noted Date AVM (arteriovenous [...] as of this encounter (statuses as of 03/13/2023) Immunizations Name Administration Dates Next Due Seasonal Influenza, PF, 6 mons & Above, IM , (Fl ulaval) 05/06/2019 Seasonal Influenza, Split, IIV3, With Preserve, Inj 04/21/2018 documented as of this encounter Social History Tobacco Use Types Packs/Day Years Used Date Smoking Tobacco: Never Smokeless Tobacco: Never Tobacco Cessation:Counseling Given: Not Answered Alcohol Use Standard Drinks/Week Comments No 0 (1 standard drink = 0.6 oz pur e alcohol) Sex Assigned at Date Recorded Not on file Job Start Date Occupation Industry Not on file Not on file Not on file documented as of this encounter Last Filed Vital Signs Vital Sign Reading Time Taken Comments Blood Pressure 139/63 03/13/2023 11:10 AM EDT Pulse 84 03/13/2023 11:10 AM EDT Temperature 36.2 C (97.2 F) 03/13/2023 11:10 AM E DT Respiratory Rate 18 03/13/2023 11:10 AM EDT Oxygen Saturation 94% 03/13/2023 11:10 AM EDT 4L O2 Inhaled Oxygen Concentration - - Weight 145.2 kg (320 lb) 03/13/2023 11:10 AM EDT per pt Height 152.4 cm (5') 03/13/2023 11:10 AM EDT Body Mass Index 62.5 03/13/2023 11:10 AM EDT documented in this encounter Functional Status Functional Status Response [...] No 10/27/2018 documented as of this encounter Progress Notes * Iliana Mulligan MD - 03/13/2023 11:29 AM EDT Images from the original note were not included. 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 HIVES,THROAT CLOSES Shellfish Allergy Sulfites Abdominal pain Current Outpatient Medications Medication Sig Dispense Refill furosemide (LASIX) 20 MG Tablet Take 1 Tablet by mouth. Unsure of milligrams--takes as needed for swelling ADVAIR DISKUS 250-50 MCG/DOSE inhaler inhale 1 dose by mouth every 12 hours 0 levalbuterol (XOPENEX HFA) 45 MCG/ACT inhaler Inhale 2 Puffs by mouth every 4 hours as needed. 0 levothyroxine (LEVOXYL) 88 MCG Tablet 0 fluticasone (FLONASE) 50 MCG/ACT nasal spray Administer 2 Sprays into nostril 2 times a day as needed for Allergies. montelukast (SINGULAIR) 10 MG Tablet Take 1 Tablet by mouth at bedtime. 0 rosuvastatin (CRESTOR) 20 MG Tablet Take 1 Tablet by mouth in the morning. 0 traMADol (ULTRAM) 50 MG Tablet Take 1 Tablet by mouth every 6 hours as needed. 0 Ergocalciferol 1.25 MG (93487 UT) Oral Capsule (Vitamin D2(Drisdol)) Take 1 Capsule by mouth. Doxycycline Hyclate 100 MG Oral Capsule Take 1 Capsule by mouth in the morning and 1 Capsule beforebedtime. Ferrous Sulfate 325 (65 Fe) MG Oral Tablet (FeroSul) Take 1 Tablet by mouth in the morning. ONETOUCH ULTRA BLUE STRP 1 BD PEN NEEDLE WAN U/F 32G X 4 MM 0 levalbuterol (XOPENEX) 0.63 MG/3ML nebulizer solution 0 HUMULIN R U-500 KWIKPEN 500 UNIT/ML SOPN Take 50 units with breakfast, 50 units with lunch, and 120units with dinner 0 nitroglycerin (NITROSTAT) 0.[address] 1 tablet under the tongue if needed every 5 minutes forche... (REFER TO PRESCRIPTION NOTES). 0 losartan (COZAAR) 100 MG Tablet Take 100 mg by mouth daily. (Patient not taking: Reported on 03/13/2023) 0 oxygen IN GAS Inhale 4 L/min(Oxygen) by mouth continuous. No current facility-administered medications for this visit. Patient Active Problem List Diagnosis Code Hemorrhoids, external without complications K64.4 Postsurgical hypothyroidism E89.0 DM type 2, not at goal (HCC) E11.9 HTN, goal to be determined I10 Dyslipidemia, goal to be determined E78.5 Other specified disorders of liver K76.89 Diverticulitis of colon K57.32 Esophageal reflux K21.9 H. 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 Occult GI bleeding R19.5 Review of Systems: Constitutional ROS: No change in weight and No fevers, sweats, or chills Musculoskeletal/Extremities ROS: Positive for swelling wound to right foot Skin/Integumentary ROS: No rash and No itching Rest of ROS negative BP 139/63 | Pulse 84 | Temp 36.2 C (97.2 F) | Resp 18 | Ht 1.524 m (5') | Wt (!) 145.2 kg (320 lb) Comment: per pt | SpO2 94% Comment: 4L O2 | BMI 62.50 kg/m | BSA 2.48 m PHYSICAL EXAM: General: alert, no distress, well nourished, well developed, comfortable, and cooperative Head: Normocephalic Eye Exam: PERRLA, extraocular movements intact, conjunctiva are pink and non- injected, sclera clear Heart: regular rate & rhythm Lungs: normal respiratory rate and rhythm Abdomen: abdomen soft and obese Extremities: right foot wound Neuro Exam: alert & oriented x 3 with fluent speech Skin: positive for: 2 small wounds to right foot Musculoskeletal: Joint Stiffness and Weakness LABS: Labs reviewed as indicated below: I have reviewed her labs No leukocytosis MICROBIOLOGY DATA: I have reviewed his cultures Hx of MSSA IMAGING: I have reviewed her imaging ASSESSMENT:Patient with OM to right 3rd toe s/p 6 weeks of unasyn .Her wound had healed until last week when she observed redness to right foot and red streaks going up her RLE .She was seen by her PA at [facility] and was started on doxycycline which has led to improvement of the wound to her right foot .Recommend obtaining CRP as her right foot wound does not appear acutely infected .If her CRP remains elevated can consider de-escalating to keflex or cefadroxil PLAN: Continue present medication(s): Schedule labs: CRP Patient education: Local wound care Follow up: 3 months Iliana Mulligan MD Infectious Disease [address] [phone] documented in this encounter Nursing Notes * Macey Hawthorne RN - 03/13/2023 11:22 AM EDT Chief Complaint Patient presents with NEW PATIENT Osteomyelitis 3rd toe on Rt foot Pt on Doxycyline for 7 days for cellulitis. Pain in Rt foot. documented in this encounter Plan of Treatment Upcoming Encounters Date Type Specialty Care Team Description 07/11/2023 Office Visit Infectious Disease Iliana Mulligan MD [address] [place] [address] Scheduled Orders Name Type Priority Associated Diagnoses Orde r Schedule CRP (INFLAMMATORY MARKER) Lab Routine Subacute osteomyelitis, right ankle and foot (HCC) Every Month for 3 Occurrences starting 03/13/2023 until 06/13/2023 Scheduled Procedures Name Priority Associated Diagnoses Date/Ti [...] as of this encounter Visit Diagnoses Diagnosis Subacute osteomyelitis, right ankle and foot (HCC)- Primary documented in this encounter [...] the patient have Health Care Power of Dental Mechanic? No Care Teams Sales Promoter Relationship Specialty Start Date End Date Aiyana Asencio MD [facility] Filemon Aguilar [facility] [address] [place] [address] PCP - General Family Medicine 08/23/18 documented as of this encounter"
--- OUTSIDE RECORDS SUMMARY | 2023-07-06 11:34 | External Medical Summary ---
Author Name Unknown Address Unknown Organization [id number] [place] [address] Laboratory Report Ordering Provider Test Date Status CHRISTIANO MCNEIL 06/05/2023 11:15:00 Final Observation Date Value Abnormality Reference (Units ) Status Nucleated erythrocytes/100 leukocytes [Ratio] in Blood by Automated count 06/05/2023 11:15:00 Final Performing Location [facility] [place] [address]
--- OUTSIDE RECORDS SUMMARY | 2023-07-06 11:34 | External Medical Summary ---
Author Name Unknown Address Unknown Organization [id number]:[facility] [place] - [address] [facility] [place] [address] Laboratory Report Ordering Provider Test Date Status CHRISTIANO MCNEIL 05/22/2023 09:40:00 Final Observation Date Value Abnormality Reference (Units ) Status SYNC LEUKOCYTES IN BLOOD BY AUTOMATED COUNT 05/22/2023 09:40:00 7.67 4.00-10.80 (K/uL) Final Segs 05/22/2023 09:40:00 68.6 40.0-75.0 (%) Final Lymphs % 05/22/2023 09:40:00 14.5 Below low normal 18.0-42.0 (%) Final Monos 05/22/2023 09:40:00 10.0 1.0-11.0 (%) Final Eosinophils 05/22/2023 09:40:00 5.7 0.0-6.0 (%) Final Basos 05/22/2023 09:40:00 0.5 0.0-2.0 (%) Final Immature Granulocyte, Percent 05/22/2023 09:40:00 0.7 0.0-2.0 (%) Final Absolute Segs 05/22/2023 09:40:00 5.26 1.80-7.70 (K/uL) Final Lymphs, absolute 05/22/2023 09:40:00 1.11 1.00-4.80 (K/ul) Final Monos, Abs 05/22/2023 09:40:00 0.77 0.00-1.10 (K/uL) Final Eos, Abs 05/22/2023 09:40:00 0.44 0.00-0.70 (K/uL) Final Basos, Abs 05/22/2023 09:40:00 0.04 0.00-0.20 (K/uL) Final Immature Granulocytes, Number 05/22/2023 09:40:00 0.05 0.00-0.20 (K/uL) Final Performing Location [facility] [place] - [facility] [address] [facility] [id number]
--- OUTSIDE RECORDS SUMMARY | 2023-07-06 11:34 | External Medical Summary ---
Author Name Unknown Address Unknown Organization [id number]:[facility] [address] [place] [address] Laboratory Report Ordering Provider Test Date Status CHRISTIANO MCNEIL 06/05/2023 11:15:00 Final Observation Date Value Abnormality Reference (Units ) Status WBC, Total 06/05/2023 11:15:00 6.78 4.00-10.8 0 (K/uL) Final RBC 06/05/2023 11:15:00 3.62 3.85-5.15 (M/uL) Final Hemoglobin 06/05/2023 11:15:00 8.9 Below low normal 12 .0-15.3 (g/dL) Final HCT 06/05/2023 11:15:00 31.2 Below low normal 36. 0-45.2 (%) Final MCV 06/05/2023 11:15:00 86.2 81.5-97.5 (fL) Final MCH 06/05/2023 11:15:00 24.6 27.0-34.0 (pg) Final MCHC 06/05/2023 11:15:00 28.5 32.0-36.0 (g/dL) Final RDW 06/05/2023 11:15:00 24.4 11.5-15.5 (%) Final Platelets 06/05/2023 11:15:00 200 140-400 (K /uL) Final MPV 06/05/2023 11:15:00 10.5 6.6-11.1 ( fL) Final Performing Location [facility] [address] [place] [address]
--- OUTSIDE RECORDS SUMMARY | 2023-07-06 11:35 | External Medical Summary | Continuity of Care Document ---
Author Name Unknown Organization [facility] ([facility]) [address] [facility] Address [address] [place], [place] [id number] Care Team Providers Care Operator Specialist 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s Name Role Phone Aiyana Asencio Stephanie Primary Care Physician [phone] Encounter [facility] JESSICA [id number] Date(s): 03/05/23 - 03/05/23 [facility] [address], [address] [place] [address] [phone] Encounter Diagnosis Osteomyelitis of third toe of right foot(Discharge Diagnosis) - 03/05/23 Cellulitis of third toe of right foot(Discharge Diagnosis) - 03/05/23 Discharge Disposition: Home or Self Care Attending Physician: KARRI Camilo Jessica A Allergies, Adverse Reactions, Alerts Substance Reaction Severity Status ciprofloxacin nausea, body aches, joint pain and cramp ing Active albuterol itching Active seafood hives, throat closed, SOB Ac tive sulfites itching Active IVP dye rash and swelling Active Assessment and Plan Extracted from: Title:f/u osteomyelitis/cellulitis Author:Charan lopez PA-C, Jessica A Date:03/05/23 1.Cellulitis of third toe of right foot Cellulitis of third toe of the right footis acuteand uncontrolled. Goal is resolution of symptoms. She was given ceftriaxone1 g IM in the office todayand started on doxycycline 100 mg, 1 tab p.o. twice dailyshe is allergic to ciprofloxacinand sulfa drugs. Expresses concern for ongoing osteomyelitisof the third toe of the right footas she describes that podiatry has only been managing prior open wounds, but not osteomyelitis specifically. She is to keep appointment with podiatry this . 2.Osteomyelitis of third toe of right foot Osteomyelitis of third toe of the right footwith subacute on chronic and it is unclear if this has fully resolvedfrom when osteomyelitis was diagnosed in November 2022. Upongathering history todayit appears that patient did not ever keep her appointment with orthopedics due to fear of needing amputation. Last clinic note, hospital discharge summary from November most recent labs were reviewed. Labs completed last month show CRP is significantly elevated as compared toprior labs while on antibiotic therapy and ESR is slightly lower. Unfortunately, she is unable to see infectious disease until April. I did order an x-ray of the right third, fourth and fifth toes, but explained to patient that if this is normal this does not still rule out ongoing osteomyelitis. Updated ESR and CRP were ordered as well. CBC with differential ordered yesterday by her scrap piler was reviewed and white count was normal at 9.42. If these are trending upwardand given new onset of cellulitis we willplan to initiate stat referral to orthopedics. She was not able to tolerate MRI of the foot well while hospitalized. She did inquire if she should go to the ER and explained that if she is certainlyin significant pain givenpresence of infection would recommend ER evaluation today, but then patient didrefuse. Prefers to try conservative therapy first. Advised that she must seek care at the ER if pain worsens, develops any fever,red streaking from foot, dizziness, weakness or new symptoms. Patient has been agreed. Time spent on pre-visit plannin minutes on chart and record review Face to face time spent w/ patient:45 minutes Time spent documenting pertinent clinical information into the EMR:24 minutes Total time: 74 minutes Immunizations Given and Recorded Vaccine Date Status [...] day to 6 TIMES A DAY, Pharmacy [address] Start Date: 07/18/21 Status: Ordered albuterol-ipratropium 2.5 mg-0.5 mg/3 mL inhalation solution Start: 10/31/22 12:54:00 EDT, See Instructions, Disp# 90 mL, Refills: 5, 3 ML INHALED THREE TIMES ADAY NEEDED FOR SHORTNESS OF BREATH OR WHEEZING, [facility]acy: [facility] #[id number] Start Date: 10/31/22 Status: Ordered Atarax 25 mg oral tablet Start: 11/13/22 12:18:00 EDT, 1 tab, PO, qid, Disp# 28 tab, Refills: 5, PRN: as needed for itching,Pharmacy: [facility] #[id number] Start Date: 11/13/22 Stop Date: 12/25/22 Status: Ordered BD 1 mL Ultra-Fine Insulin Syringe 30G x 1/2" Start: 07/11/17 10:06:00, See Instructions, Disp# 3 box, Refills: 5, use QID, Dx : E11.9, Pharmacy:[facility] Start Date: 07/11/17 Status: Ordered doxycycline hyclate 100 mg oral capsule Start: 03/05/23 15:13:00 EDT, 1 cap, PO, bid, Disp# 20 cap, X 10 day, Stop: 03/15/23 15:13:00 EDT, Pharmacy: [facility] #[id number] Start Date: 03/05/23 Stop Date: 03/15/23 Status: Ordered EpiPen 2-Andres 0.3 mg injectable kit Start: 09/10/15 19:58:00, 0.3 mg =, IM, ONCE, Disp# 1 unit, Refills: 0, Pharmacy: [address] Start Date: 09/10/15 Status: Ordered FeroSul 325 mg (65 mg elemental iron) oral tablet Start: 03/29/22 13:05:00 EDT, See Instructions, Disp# 60 tab, Refills: 5, take 1 tablet by mouth twice a day, [facility]acy: [facility][id number] Start Date: 03/29/22 Status: Ordered fluticasone 50 mcg/inh nasal spray See Instructions, Disp# 16 g, Refills: 5, instill 2 sprays into each nostril once daily, Pharmacy: [address] Start Date: 09/13/20 Status: Ordered furosemide 20 mg oral tablet Start: 12/11/22 8:21:00 EDT, See Instructions, Disp# 60 tab, Refills: 11, take 2 tablets by mouth once daily, Pharmacy: [facility] #[id number] Start Date: 12/11/22 Status: Ordered glucose test strips Start: 12/14/17 9:37:57 EDT, See Instructions, Disp# 200 unit, Refills: 11, Ultra One touch; test QID to 6 times a day DX : E11.65, Pharmacy: [address] Start Date: 12/14/17 Status: Ordered Humalin UV 500 Start: 08/30/18 15:59:00 EST, Humalin UV 500, Note to Pharmacy: 60 units in AM & lunch, 70 dinner Start Date: 08/30/18 Status: Ordered levalbuterol CFC free 45 mcg/inh inhalation aerosol Start: 01/26/20 11:30:00 EDT, 2 puff, inhaled, q4h, Disp# 2 each, Refills: 5, PRN: as needed for wheezing, Pharmacy: [address] Start Date: 01/26/20 Status: Ordered levothyroxine 112 mcg (0.112 mg) oral tablet take 1 tablet by mouth once daily Start Date: 09/20/22 Status: Ordered montelukast 10 mg oral tablet Start: 10/16/22 9:11:00 EDT, See Instructions, Disp# 30 tab, Refills: 5, take 1 tablet by mouth every evening, Pharmacy: [facility][id number] Start Date: 10/16/22 Status: Ordered Mucinex DM 600 mg-30 mg oral tablet, extended release Start: 04/20/20 7:51:00 EDT, 1 tab, PO, q12h, PRN: congestion Start Date: 04/20/20 Status: Ordered Nitrostat 0.4 mg sublingual tablet Start: 03/10/21 16:35:00 EDT, 1 tab, SL, q5min, Disp# 25 tab, Refills: 1, PRN: as needed for chest pain, [facility]acy: [facility] Start Date: 03/10/21 Stop Date: 05/09/21 Status: Ordered ONETOUCH ULTRA BLUE TEST STRP ONETOUCH ULTRA BLUE TEST STRP, See Instructions, Disp# 200 strip, Refills: 6, TEST four times a dayto 6 TIMES A DAY, [facility] Start Date: 05/11/20 Status: Ordered Oxygen Start: 11/01/17 10:35:00 EDT, Oxygen, See Instructions, PRN: QHS and PRN while asleep, 3 Liters viaN/C Wear with all hours of sleep Start Date: 11/01/17 Status: Ordered rosuvastatin 20 mg oral tablet Start: 02/09/23 13:38:00 EDT, See Instructions, Disp# 30 tab, Refills: 5, take 1 tablet by mouth atbedtime, [facility]acy: [facility] #[id number] Start Date: 02/09/23 Status: Ordered traMADol 50 mg oral tablet Start: 12/06/22 10:57:00 EDT, 1 tab, PO, q6h, Disp# 120 tab, Refills: 5, PRN: as needed for pain, [facility]acy: [facility] #[id number] Start Date: 12/06/22 Stop Date: 06/04/23 Status: Ordered triamcinolone 0.1% topical cream Start: 10/30/22 15:05:00 EDT, 1 appl, topical, bid, Disp# 454 g, Pharmacy: [facility] #[id number] Start Date: 10/30/22 Stop Date: 11/13/22 Status: Ordered Mental Status 03/05/23 Barriers to Learning one year None evide nt Mandatory Health Literacy Documentation Yes Health Literacy 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 Barriers N ever Primary Language Ukrainian Problem List Condition Confirmation Course Effective Dates [...] Effective Dates Health Status Clinical Service Informant Cellulitis of third toe of right foot Discharge Diagnosis 03/05/23 Non-Specified Osteomyelitis of third toe of right foot Discharge Diagnosis 03/05/23 Non-Specified Procedures Procedure Date Related Diagnosis Body [...] ECG 35 03/28/15 Completed [facility]: A benign follicular nodule with cystic degeneration [facility] Imp[facility]: 1. Ultrasound-guided left thyroid nodule FNA x2 3XR CALCANEUS RT IMPRESSION: No osseous erosion identified to suggest osteomyelitis. [facility]: 1. No change in the cardiomegaly [...] which may reflect air trapping. No consolidation. 6[facility] Impression: 1. Technically difficult exam but no evidence of DVT within the RLE 2. Small right popliteal cyst 7[facility] Impression: 1. Suspected mild mediastinal lymphadenopathy 2. [...] diverticulae of sigmoid. Non-bleeding int. hemorrhoids. 13[facility] Impression: 1. Mild cardiomegaly with volume overload/congestive [...] Multinodular thyroid goiter. 5. Hepatic steatosis. 17[facility] Impression: 1 Soft tissue swelling with no [...] is recommended. 27EF=65-70%, no valvular disease 28[facility] Impression: 1. The right thyroid lobe appears surgically absent 2. Multinodular residual thyroid gland as described. Overall, the size of the nodules are not significantly changed compared to the prior study 29[facility] Impression: 1. No acute bony abnormality is seen 2. arthrititc change as above, greatest at the patellofemoral articulation. 3. small joint effusion. 30next scope in 5 yrs. 31Diverticulosis in the sigmoid colon. Internal hemorrhoids. the examined portion of the ileum was normal. the examination was otherwise normal on direct retroflexion views. No specimens collected. 32[facility] Impression: 1. Hepatomegaly demonstrating fatty change 2. The spleen is normal in size 3. Normal gallbladder. No gallstones 33Generalized intersistial and bronchovascular prominence. The appearane is suggestive of basilar bronchitis. 34[facility] Impression: 1. Mild cardiac enlargement with no acute cardiopulmonary abnormality. 35[facility] Impression: 1. No arrhythmia, no acute ST changes Results Most recent to oldest [Reference Range]: 1 CRP-[facility] [<8.0 mg/L] 39.0 mg/L 1 *HI* (03/05/23 3:39 PM) ESR-[facility] [< OR = 30] 67 2 *HI* (03/05/23 3:39 PM) 1Result Comment: PHONE [phone] Specimen Received d/t: 03/06/2023 00:25:00 Lab test performed by: [facility] [employer] [facility] [place] [id number] Alejandro Zamora MD 2Result Comment: Specimen Received d/t: 03/06/2023 00:25:00 Lab test performed by: [facility] [employer] [address] [place] [phone] Alejandro Zamora MD Vital Signs Most recent to oldest [Reference Range]: 1 Heart Rate 90 bpm (03/05/23 2:17 PM) Respiratory Rate 18 br/min (03/05/23 2:17 PM) Blood Pressure 148/70mmHg (03/05/23 2:17 PM) Cuff Pulse Pressure 78 mmHg (03/05/23 2:17 PM) BP Location # 1 Right Arm (03/05/23 2:17 PM) Social History Social History Type Response Smoking Status Never smoked cigaret melissa Sex Female [facility] Note * KARRI Camilo, Melissa Marinelli: PERFORM Event Display: [facility] Note Authored Date: [id number] Chief Complaint follow up, check red spots on right leg, right toes are red History of Present Illness Lucy presents today forfollow-up of osteomyelitis of distal aspect of right third toeanddiabetic foot ulcer of right foot with cellulitis. She has a significant past medical historyof chronichypoxic respiratory really failuresecondary to obesity hypoventilation syndrome, diastolic heart failure, STEWART,insulin-dependent diabetes, hyperlipidemia, CAD, HTNand at least stage III CKD. [facility], swelling, redness with open ulcerationof her right foot. During admissionx-ray of the foot was negative, except for evidenceof soft tissue changes. She did have an MRIon 12/01/2022 that co nfirmedosteomyelitis of the right third, distal phalanx. Blood cultures were negative, but wound cultures were positive forMSSA. She was treated with IVantibioticsand discharged with a PICC line for daily IV infusions of ceftriaxone 2 g for 6 weeks. Orthopedicswas consultedand patient was to follow-up with them 2 weeks after inpatient admission, but reportedly did not keep this appointmentbecause "he wanted to cut my toe off." She did complete her 6 weeksof antibiotics and PICC linewas removedabout 3 to 3.5 weeks ago. She had been gettinglabs completed duringantibiotic treatment that shouldpersistently elevatedCRP and ESR, but they were trending downward. [facility] andwas told that wounds have been healing. Otherwise has not seen orthopedics as an outpatient. She is to see them again this . She did have a follow-up appointment on02/07/[address] [facility]-up labs that showedhigh CRP, which is much higher than last CRP while on theIV antibiotic treatmenta ndhigh ESR. She was referred to [facility] infectious disease and is scheduled to see themon 05/09/2023. Notes that her foot seem to be doing well until3 to 4 days ago. On Sunday she noticedredness,swellingand painover entire right, third toe that has gotten worse and spread to herfourth and fifth toes. Foot is painful andnotes that she cannot stand to have her foothangingtowards the ground for more than an hour. She is concerned for recurrence of cellulitis. + clear dischargefrom callus of right 3rd toe. Notes that she did have blood workwith her oncologist yesterday that showed her hemoglobin was dropping slightly at 9.2.Seeing heme/onc tomorrow. Sugars have been "creeping up." + chronic COOPER and SOB at rest that is unchanged; on 4-5 liters of supplemental oxgeyn. No fever,chills, nausea, vomiting, diarrhea, dizziness, lightheadedness, presyncope, syncope, red streaking up leg,open wounds of foot, headaches or confusion. Review of Systems ROS:All other systems negative, except HPI. Physical Exam Vitals & Measurements HR:90(Monitored) RR:18 BP:148/70 SpO2:92% Oxygen Flow:4(L/Min) PHQ2 Data(Data Documented on:03/05/2023 14:17) Emotional health assessment NEGATIVE General: Alert and oriented, No acute distress.Pleasant, morbidly obese female seated in power wheelchair. Wearing supplemental oxygen via nasal cannula.Accompanied by her . Eye: Pupils are equal, round and reactive to light, Extraocular movements are intact, Normal conjunctiva. HENT: Normocephalic. TMs clear bilaterally. Posterior pharynx is pink. Uvula rises midline. No drooling, stridor or cyanosis. Neck: Supple, No lymphadenopathy, No thyromegaly. Respiratory: Lungs are clear to auscultation, Respirations are non-labored, Breath sounds are equal, Symmetrical chest wall expansion. Diminished air exchange throughout all lung eli. Cardiovascular: Normal rate, Regular rhythm, No murmur, No gallop, Good pulses equal in all extremities, Normal peripheral perfusion. + 3-4 nonpitting edema at bilateral LE. Abdomen: Normoactive BS x 4. Soft. No tenderness, palpable masses or organomegaly. Lymphatics: No submandibular, anterior or posterior cervical adenopathy palpable. Musculoskeletal Seated in power wheel chair. + moderate swelling, bright erythema and warmth over entire right 3rd toe. Distal aspect of her third toe is witha thickened area of callus and possibly driedblood. There is fluctuance along distal and lateraltip of the third toeand entire toe is tender topalpation. Erythema and warmthhasalso spread to right fourth and fifth toes. There is evidence of a callus, but no open ulcerationover plantar aspect ofright fifth metatarsal head. Integumentary: Warm, Roberts, No pallor. See MSK findings. Neurologic: Alert, Oriented, Cranial Nerves II-XII are grossly intact. Cognition and Speech: Oriented, Speech clear and coherent, Functional cognition intact. Psychiatric: Cooperative, Appropriate mood & affect, Normal judgment, Nonsuicidal. Images 2023-03-05 14:55:22 2023-03-05 14:55:39 Assessment/Plan 1.Cellulitis of third toe of right foot Cellulitis of third toe of the right footis acuteand uncontrolled. Goal is resolution of symptoms. She was given ceftriaxone1 g IM in the office todayand started on doxycycline 100 mg, 1 tab p.o. twice dailyshe is allergic to ciprofloxacinand sulfa drugs. Expresses concern for ongoing osteomyelitisof the third toe of the right footas she describes that podiatry has only beenmanaging prior open wounds, but not osteomyelitis specifically. She is to keep appointment with podiatry this . 2.Osteomyelitis of third toe of right foot Osteomyelitis of third toe of the right footwith subacute on chronic and it is unclear if this has fully resolvedfrom when osteomyelitis was diagnosed in November 2022. Upongathering history todayit appears that patient did not ever keep her appointment with orthopedics due to fear of needing amputation. Last clinic note, hospital discharge summary from November most recent labs were reviewed. Labs completed last month show CRP is significantly elevated as compared toprior labs while on antibiotic therapy and ESR is slightly lower. Unfortunately, she is unable to see infectious disease until April. I did order an x-ray of the right third, fourth and fifth toes, but explained to patient that ifthis is normal this does not still rule out ongoing osteomyelitis. Updated ESR and CRP were ordered as well. CBC with differential ordered yesterday by her scrap piler was reviewed and white count was normal at 9.42. If these are trending upwardand given new onset of cellulitis we willplan to initiate stat referral to orthopedics. She was not able to tolerate MRI of the foot well while hospitalized. She did inquire if she should go to the ER and explained that if she is certainlyin significant pain givenpresence of infection would recommend ER evaluation today, but then patient didrefuse. Prefers to try conservative therapy first. Advised that she must seek care at the ER if pain worsens, develops any fever,red streaking from foot, dizziness, weakness or new symptoms. Patient has been agreed. Time spent on pre-visit plannin minutes on chart and record review Face to face time spent w/ patient:45 minutes Time spent documenting pertinent clinical information into the EMR:24 minutes Total time: 74 minutes Problem List/Past Medical History Ongoing Acquired lymphedema [...] Plus Test Strips), See Instructions, 11 refills doxycycline(doxycycline hyclate 100 mg oral capsule), 100 mg= 1 cap, PO, bid EPINEPHrine(EpiPen 2-Andres 0.3 mg injectable kit), 0.3 mg, IM, ONCE ferrous sulfate(FeroSul 325 mg (65 mg elemental [...] week:3-4 times/week Exercise type:Walking Tobacco Use:Never smoker Immunizations Vaccine Date Status SARS-CoV-2 (COVID-19) mRNA-1273 vaccine 09/07/2020 Given influenza virus vaccine, inactivated 04/05/2020 Given influenza virus vaccine, inactivated 04/13/2017 Given influenza virus vaccine, inactivated 03/29/2016 Given pneumococcal 23-valent vaccine 03/29/2016 Given tetanus/diphtheria/pertuss, acel (Tdap) 03/29/2016 Given pneumococcal 13-valent vaccine 05/31/2015 Given influenza virus vaccine, inactivated 05/31/2015 Given Recommendations Health Maintenance Pending(in the next year) OverDue Body Mass Index due05/15/20and every 1year Diabetic Eye Exam due06/15/20and every 1year Adult Influenza Vaccine due01/20/23and every 1year Due Adult COVID-19 Vaccination due03/06/23Unknown Frequency Breast Cancer Screening due03/06/23Unknown Frequency Hepatitis C Screening due03/06/23One-time only Medicare Annual Wellness Visit due03/06/23and every 1year Osteoporosis Screening due03/06/23One-time only Pneumococcal Vaccine Older Adults due03/06/23One-time only Shingles Vaccine due03/06/23One-time only Due In Future Diabetes Management A1c not due until07/06/23and every 1year Satisfied(in the past 1 year) Satisfied Diabetes Management A1c on07/06/22.Satisfied by DAYANARA Kline Lisa Refused Diabetic Eye Exam on05/09/22.Recorded by HEIDI Colbert Karli RReason: Patient Refuses Patient Care team information Care Team Personnel Name: SCOTT Wheatley Janet Griffith Position: Nurse Pract - Gastro Member Role: Lifetime Relationship Address: Address: [address] [place] [address], [place] [address] [place] Name: MD Elif, Aiyana Brown Position: Physician - Family Med Member Role: Primary Care Provider Address: Address: [address] [place] [address], [place] [address] Care Team Related Persons Name: NING LOU Address: home [address] [facility] [id number] [place] Name: NING LOU Address: [facility] [place] Address: home [address] [facility], [place] [id number] [place]
--- OUTSIDE RECORDS SUMMARY | 2023-07-06 11:35 | External Medical Summary | Summary of Care ---
Author Name Unknown Organization [facility] Address [address] [place] [address] Phone [phone] Care Team Providers Care Conductor [employer] Freight Name Role Phone Aiyana Asencio MD Primary Care Provider [phone] Reason for Referral * Evaluate & Treat - Unlimited Visits (Within 10 days (routine)) - Authorized Specialty Diagnoses / Procedures Referred By Contac t Referred To Contact Infectious Diseases / Infectious Disease Diagnoses Osteomyelitis (HCC) Jerry Zimmerman MD [address] [facility] [address] [place] [address] Referral ID Status Reason Start Date Expiration Date Visits Requested Visits Authorized [id number] Authorized Specialty Services Required 02/13/2023 999 999 Question Answer Referral Priority Within 10 days (routine) What condition is the patient being seen for? All Other Conditions Comments Osteomyelitis Encounter Details Date Type Department Care Team Description 02/13/2023 Orders Only Access Center, [address] *DO NOT REMOVE THIS DEPARTMENT* HAYDEE SEGOVIA [id number] Request, External Referral Osteomyelitis (HCC)* Allergies Active Allergy Reactions Severity Noted Date Comments Ciprofloxacin Rash 06/11/2019 Headache, Made left arm really heavy Amlodipine Besylate Edema Other 05/06/2019 Legs Other - Drugs 06/01/2005 CAT SCAN DYE ALLERGY!!!!!!!!!!!!!!!!!!!!!!! HIVES,THROAT CLOSES Shellfish Allergy 12/09/2015 Sulfites Abdominal pain 10/13/2009 documented as of this encounter (statuses as of 02/13/2023) Medications Medication Sig Dispensed Refills Start Date End Date Status furosemide (LASIX) 20 MG Tablet Take 20 mg by mouth. Unsure of milligrams--takes as needed [...] montelukast (SINGULAIR) 10 MG Tablet Take 1 Tab by mouth at bedtime. 0 10/29/2018 Active rosuvastatin (CRESTOR) 20 MG Tablet Take 1 Tab by mouth daily. 0 10/29/2018 Active liothyronine (CYTOMEL) 5 MCG Tablet Take 5 mcg by mouth daily. 0 02/10/2019 Active nitroglycerin (NITROSTAT) 0.[address] 1 tablet under the tongue if needed every 5 minutes for renee... (REFER TO PRESCRIPTION NOTES). 0 01/20/2019 Active traMADol (ULTRAM) 50 MG Tablet Take 50 mg by mouth every 6 hours as needed. 0 04/22/2019 Active losartan (COZAAR) 100 MG Tablet Take 100 mg by mouth daily. 0 06/02/2019 Active documented as of this encounter (statuses as of 02/13/2023) Active Problems Problem Noted Date AVM (arteriovenous [...] as of this encounter (statuses as of 02/13/2023) Immunizations Name Administration Dates Next Due Seasonal Influenza, Quadriva lent, No Preserve, 6 Mons & Above, IM 05/06/2019 Seasonal Influenza, Split, IIV3, With Preserve, Inj 04/21/2018 documented as of this encounter Social History Tobacco Use Types Packs/Day Years Used Date Smoking Tobacco: Never Smokeless Tobacco: Never Alcohol Use Standard Drinks/Week Comments No 0 (1 standard drink = 0.6 oz pur e alcohol) Sex Assigned at Date Recorded Not on file documented as of this [...] as of this encounter Plan of Treatment Scheduled Procedures Name Priority Associated Diagnoses Date/Ti me COLONOSCOPY FLEXIBLE PROXIMAL DIAGNOSTIC Recall History of colon polyps Scheduled Referrals Name Type Priority Associated Diagnoses Orde r Schedule INFECTIOUS DISEASE REFERRAL OP Referral Within 10 days (routine) Osteomyelitis (HCC) Ordered: 02/13/2023 Health Maintenance Due Date Last Done Comments [...] of this encounter Visit Diagnoses Diagnosis Osteomyelitis (HCC)- Primary Unspecified osteomyelitis, site unspecified documented in this encounter Advance Directives Latest [...] the patient have Health Care Power of Chocolate Packer? No Care Teams Conductor [employer] Freight Relationship Specialty Start Date End Date Aiyana Asencio MD [facility] [place] [address] PCP - General Family Medicine 08/23/18 documented as of this encounter
--- OUTSIDE RECORDS SUMMARY | 2023-07-06 11:35 | External Medical Summary | Continuity of Care Document ---
Author Name Unknown Organization [facility] [address] [facility] [address] Address [address], [place] [id number] Care Team Providers Care First Leveler Name Role Phone Elif Aiyana Brown Primary Care Physician [phone] Encounter [facility] JESSICA [id number] Date(s): 02/07/23 - 02/07/23 [facility] [address] [facility] [address] [facility] Site [address], [address] [place], [place] [address] [address] [phone] Encounter Diagnosis Hypothyroid(Discharge Diagnosis) - 02/07/23 Hypoxia(Discharge Diagnosis) - 02/07/23 Osteomyelitis(Discharge Diagnosis) - 02/07/23 Acquired lymphedema of lower extremity(Discharge Diagnosis) - 02/07/23 Anemia(Discharge Diagnosis) - 02/07/23 DIABETES MELLITUS(Discharge Diagnosis) - 02/07/23 Chronic kidney disease (CKD)(Discharge Diagnosis) - 02/07/23 Discharge Disposition: Home or Self Care Attending Physician: MD Zimmerman Dongsheng Allergies, Adverse Reactions, Alerts Substance Reaction Severity Status ciprofloxacin nausea, body aches, joint pain and cramp ing Active albuterol itching Active seafood hives, throat closed, SOB Ac tive sulfites itching Active IVP dye rash and swelling Active Assessment and Plan Extracted from: Title:Office Visit Note Author:MD Zimmerman Dongsh eng Date:02/07/23 1.Osteomyelitis STATUS: Chronic,feels better DATA: Reviewed labs GOAL: Resolution/prevention PLAN:had 6 weeks of antibiotics7 with PICC with [facility]. saw infectious disease in [facility] per pt. f/u ortho[facility]podiatry [facility] for [facility] foot care. Refer to ID. Will fax over lab reports to ortho/podiatry - she will double check with them on whether she needs another MRI or further testing. Does not want to go to [facility] wound care. 2.DIABETES MELLITUS STATUS: Chronic, uncontrolled with hypoglycemia DATA: Reviewed labs GOAL: A1c<7 PLAN: f/u endo. on insulin. on Dexcom. hypoglycemia sheet given. 3.Acquired lymphedema of lower extremity STATUS: Chronic DATA: Reviewed labs GOAL: Reduce symptoms PLAN: referred backto rehab 4.Anemia STATUS: Chronic DATA: Reviewed labs GOAL: Resolution PLAN: f/u neph and hem 5.Chronic kidney disease (CKD) STATUS: Chronic DATA: Reviewed labs GOAL: Resolution PLAN: f/u neph. 6.Hypothyroid STATUS: Chronic DATA: Reviewed labs GOAL: Maintain stability PLAN: continue med. f/u endo 7.Hypoxia STATUS: [facility] home oxygen DATA: Reviewed labs GOAL: Resolution PLAN: f/u pulm med. call prn. f/u2 weeks Time spent: Pre-visit planning/chart review: 5 minutes Ejmp-ha-ylew visit: 53 minutes Post-visit documentation: minutes Care coordination: minutes Total visit time: 58 minutes Immunizations Given and Recorded Vaccine Date [...] day to 6 TIMES A DAY, Pharmacy [facility] [place] [address] Start Date: 07/18/21 Status: Ordered albuterol-ipratropium 2.5 mg-0.5 mg/3 mL inhalation solution Start: 10/31/22 12:54:00 EDT, See Instructions, Disp# 90 mL, Refills: 5, 3 ML INHALED THREE TIMES ADAY NEEDED FOR SHORTNESS OF BREATH OR WHEEZING, Pharmacy: [facility] #[id number] Start Date: 10/31/22 Status: Ordered Atarax 25 mg oral tablet Start: 11/13/22 12:18:00 EDT, 1 tab, PO, qid, Disp# 28 tab, Refills: 5, PRN: as needed for itching,Pharmacy: [facility] #[id number] Start Date: 11/13/22 Stop Date: 12/25/22 Status: Ordered BD 1 mL Ultra-Fine Insulin Syringe 30G x 1/2" Start: 07/11/17 10:06:00, See Instructions, Disp# 3 box, Refills: 5, use QID, Dx : E11.9, Pharmacy:[id number] Start Date: 07/11/17 Status: Ordered EpiPen 2-Andres 0.3 mg injectable kit Start: 09/10/15 19:58:00, 0.3 mg =, IM, ONCE, Disp# 1 unit, Refills: 0, Pharmacy: [id number] Start Date: 09/10/15 Status: Ordered FeroSul 325 mg (65 mg elemental iron) oral tablet Start: 03/29/22 13:05:00 EDT, See Instructions, Disp# 60 tab, Refills: 5, take 1 tablet by mouth twice a day, Pharmacy: [facility] #[id number] Start Date: 03/29/22 Status: Ordered fluticasone 50 mcg/inh nasal spray See Instructions, Disp# 16 g, Refills: 5, instill 2 sprays into each nostril once daily, Pharmacy: [id number] Start Date: 09/13/20 Status: Ordered furosemide 20 mg oral tablet Start: 12/11/22 8:21:00 EDT, See Instructions, Disp# 60 tab, Refills: 11, take 2 tablets by mouth once daily, Pharmacy: [facility] #[id number] Start Date: 12/11/22 Status: Ordered glucose test strips Start: 12/14/17 9:37:57 EDT, See Instructions, Disp# 200 unit, Refills: 11, Ultra One touch; test QID to 6 times a day DX : E11.65, Pharmacy: [address] Start Date: 12/14/17 Status: Ordered Humalin UV 500 Start: 08/30/18 15:59:00 EST, Humalin UV 500, Note to Pharmacy: 60 units in AM & lunch, 70 dinner Start Date: 08/30/18 Status: Ordered levalbuterol CFC free 45 mcg/inh inhalation aerosol Start: 01/26/20 11:30:00 EDT, 2 puff, inhaled, q4h, Disp# 2 each, Refills: 5, PRN: as needed for wheezing, Pharmacy: [address] Start Date: 01/26/20 Status: Ordered levothyroxine 112 mcg (0.112 mg) oral tablet take 1 tablet by mouth once daily Start Date: 09/20/22 Status: Ordered montelukast 10 mg oral tablet Start: 10/16/22 9:11:00 EDT, See Instructions, Disp# 30 tab, Refills: 5, take 1 tablet by mouth every evening, Pharmacy: [id number] Start Date: 10/16/22 Status: Ordered Mucinex DM 600 mg-30 mg oral tablet, extended release Start: 04/20/20 7:51:00 EDT, 1 tab, PO, q12h, PRN: congestion Start Date: 04/20/20 Status: Ordered Nitrostat 0.4 mg sublingual tablet Start: 03/10/21 16:35:00 EDT, 1 tab, SL, q5min, Disp# 25 tab, Refills: 1, PRN: as needed for chest pain, Pharmacy: [address] Start Date: 03/10/21 Stop Date: 05/09/21 Status: Ordered ONETOUCH ULTRA BLUE TEST STRP ONETOUCH ULTRA BLUE TEST STRP, See Instructions, Disp# 200 strip, Refills: 6, TEST four times a dayto 6 TIMES A DAY, Pharmacy [address] Start Date: 05/11/20 Status: Ordered Oxygen Start: 11/01/17 10:35:00 EDT, Oxygen, See Instructions, PRN: QHS and PRN while asleep, 3 Liters viaN/C Wear with all hours of sleep Start Date: 11/01/17 Status: Ordered rosuvastatin 20 mg oral tablet Start: 02/09/23 13:38:00 EDT, See Instructions, Disp# 30 tab, Refills: 5, take 1 tablet by mouth atbedtime, Pharmacy: [facility] #[id number] Start Date: 02/09/23 Status: Ordered traMADol 50 mg oral tablet Start: 12/06/22 10:57:00 EDT, 1 tab, PO, q6h, Disp# 120 tab, Refills: 5, PRN: as needed for pain, Pharmacy: [facility] #[id number] Start Date: 12/06/22 Stop Date: 06/04/23 Status: Ordered triamcinolone 0.1% topical cream Start: 10/30/22 15:05:00 EDT, 1 appl, topical, bid, Disp# 454 g, Pharmacy: [facility] #[id number] Start Date: 10/30/22 Stop Date: 11/13/22 Status: Ordered Mental Status 02/07/23 Barriers to Learning one year None evide nt Mandatory Health Literacy Documentation Yes Health Literacy 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 Barriers N ever Primary Language Turkmen Problem List Condition Confirmation Course Effective Dates [...] Effective Dates Health Status Clinical Service Informant Anemia Discharge Diagnosis 02/07/23 Chronic kidney disease (CKD) Discharge Diagnosis 02/07/23 DIABETES MELLITUS Discharge Diagnosis 02/07/23 Acquired lymphedema of lower extremity Discharge Diagnosis 02/07/23 Hypothyroid Discharge Diagnosis 02/07/23 Osteomyelitis Discharge Diagnosis 02/07/23 Hypoxia Discharge Diagnosis 02/07/23 Procedures Procedure Date Related Diagnosis Body Site [...] 03/28/15 Completed ECG 35 03/28/15 Completed [facility] 2005 [facility]: A benign follicular nodule with cystic degeneration is seen [address] [place] [address] Impression: 1. Ultrasound-guided left thyroid nodule FNA x2 3XR CALCANEUS RT IMPRESSION: No osseous erosion identified to suggest osteomyelitis. [facility] Imp[facility]: 1. No change in the [...] which may reflect air trapping. No consolidation. [facility] Impression: 1. Technically difficult exam but no evidence of DVT within the RLE 2. Small right popliteal cyst [facility] Impression: 1. Suspected mild mediastinal lymphadenopathy 2. [...] diverticulae of sigmoid. Non-bleeding int. hemorrhoids. 13[facility] Impression: 1. Mild cardiomegaly with volume overload/congestive [...] Multinodular thyroid goiter. 5. Hepatic steatosis. 17[facility] Impression: 1 Soft tissue swelling with [...] is recommended. 27EF=65-70%, no valvular disease 28[facility] Impression: 1. The right thyroid lobe appears surgically absent 2. Multinodular residual thyroid gland as described. Overall, the size of the nodules are not significantly changed compared to the prior study 29[facility] Impression: 1. No acute bony abnormality is seen 2. arthrititc change as above, greatest at the patellofemoral articulation. 3. small joint effusion. 30next scope in 5 yrs. 31Diverticulosis in the sigmoid colon. Internal hemorrhoids. the examined portion of the ileum was normal. the examination was otherwise normal on direct retroflexion views. No specimens collected. 32[facility] Impression: 1. Hepatomegaly demonstrating fatty change 2. The spleen is normal in size 3. Normal gallbladder. No gallstones 33Generalized intersistial and bronchovascular prominence. The appearane is suggestive of basilar bronchitis. 34[facility] Impression: 1. Mild cardiac enlargement with no acute cardiopulmonary abnormality. 35[facility] Impression: 1. No arrhythmia, no acute ST changes Vital Signs Most recent to oldest [Reference Range]: 1 Temperature [36.5-37.9 DegC] 36.7 DegC (02/07/23 3:55 PM) Heart Rate 89 bpm (02/07/23 3:55 PM) Blood Pressure 134/76mmHg (02/07/23 3:55 PM) Cuff Pulse Pressure 58 mmHg (02/07/23 3:55 PM) BP Location # 1 Left Arm (02/07/23 3:55 PM) Social History Social History Type Response Smoking Status Never smoked cigaret melissa Sex Female FCM Outpt Note * MD Erasmo, Jerry: PERFORM Event Display: FCM Outpt Note Authored Date: Chief Complaint Patient is here for a follow up on blood work. History of Present Illness osteomyelitis: still has foot ulcer lateral to 5th MTP. no bleeding or drainage. no pain on her toes. but still some painin the ulcer.Still has pain on her heel too. DM: on insulin. low sugar yesterday and today. Had her meal late. Hypoxia: still on 24 hour oxygen. sleeps i recliner Review of Systems No fever/chills. No headache. No otherrespiratory symptoms. No chest pain. No nausea/vomiting. Noabdominal pain. No change with bowels. No urinary symptoms. No bleeding. Other systems reviewed and are neg. Physical Exam Vitals & Measurements T:36.7C HR:89(Monitored) BP:134/76 SpO2:95% PHQ2 Data(Data Documented on:02/07/2023 15:52) Emotional health assessment NEGATIVE General: No acute distress. Nontoxic. onoxygen and in wheelchair Head:Normocephalic, Atraumatic. Neck:Supple, Non-tender, No thyromegaly, No jugular venous distention Respiratory:Lungs are clear to auscultation, Respirations non-labored, Breath sounds equal ERIN. Cardiovascular:Normal rate, Regular rhythm, No murmur, Rubs, gallops. Gastrointestinal:Soft, Non-tender, Non-distended, Normal bowel sounds. Musculoskeletal:nonpitting edema Integumentary:kemal sized ulcer at R lateral 5th MTP. no drainage or bleed. Nontenderat base of2nd and 3rd toes. Neurologic:Alert, Oriented, No focal deficits. Psychiatric:Cooperative, Appropriate mood & affect. Assessment/Plan 1.Osteomyelitis STATUS: Chronic,feels better DATA: Reviewed labs GOAL: Resolution/prevention PLAN:had 6 weeks of antibiotics7 with PICC with [facility]. saw infectious disease in [facility] per pt. f/u ortho[facility]podiatry [facility] for [facility] foot care. Refer to ID. Will fax over labreports to ortho/podiatry - she will double check with them on whether she needs another MRI or further testing. Does not want to go to [facility] wound care. 2.DIABETES MELLITUS STATUS: Chronic, uncontrolled with hypoglycemia DATA: Reviewed labs GOAL: A1c<7 PLAN: f/u endo. on insulin. on Dexcom. hypoglycemia sheet given. 3.Acquired lymphedema of lower extremity STATUS: Chronic DATA: Reviewed labs GOAL: Reduce symptoms PLAN: referred backto rehab 4.Anemia STATUS: Chronic DATA: Reviewed labs GOAL: Resolution PLAN: f/u neph and hem 5.Chronic kidney disease (CKD) STATUS: Chronic DATA: Reviewed labs GOAL: Resolution PLAN: f/u neph. 6.Hypothyroid STATUS: Chronic DATA: Reviewed labs GOAL: Maintain stability PLAN: continue med. f/u endo 7.Hypoxia STATUS: [facility] home oxygen DATA: Reviewed labs GOAL: Resolution PLAN: f/u pulm med. call prn. f/u2 weeks Time spent: Pre-visit planning/chart review: 5 minutes [id number] visit: 53 minutes Post-visit documentation: minutes Care coordination: minutes Total visit time: 58 minutes Problem List/Past Medical History Ongoing Acquired [...] refills rosuvastatin(rosuvastatin 20 mg oral tablet), See Instructions, 11 refills syringe(BD 1 mL Ultra-Fine Insulin Syringe 30G [...] 1year Diabetic Eye Exam due06/15/20and every 1year Due Adult Influenza Vaccine due01/20/23and every 1year Adult COVID-19 Vaccination due02/07/23Unknown Frequency Breast Cancer Screening due02/07/23Unknown Frequency Hepatitis C Screening due02/07/23One-time only Medicare Annual Wellness Visit due02/07/23and every 1year Osteoporosis Screening due02/07/23One-time only Pneumococcal Vaccine Older Adults due02/07/23One-time only Shingles Vaccine due02/07/23One-time only Due In Future Diabetes Management A1c not due until07/06/23and every 1year Satisfied(in the past 1 year) Satisfied Diabetes Management A1c on07/06/22.Satisfied by DAYANARA Kline Lisa Refused Diabetic Eye Exam on05/09/22.Recorded by HEIDI Colbert Karli RReason: Patient Refuses Electronic Signature on File Electronically Reviewed/Signed by: Jerry Zimmerman MD Author Signature Dt/Tm:02/07/2023 05:14 PM Department of Family Medicine DJ Patient Care team information Care Team Personnel Name: SCOTT Wheatley Janet Griffith Position: Nurse Pract - Gastro Member Role: Lifetime Relationship Address: Address: [address] [place] [address], [place] [address] [place] Name: MD Elif, Aiyana Brown Position: Physician - Family Med Member Role: Primary Care Provider Address: Address: [address] [place] [address], [place] [address] Care Team Related Persons Name: NING LOU Address: home [address] [place], [place] [id number] [place] Name: NING LOU Address: [facility] [place] Address: home [address] [place], [place] [id number]
--- OUTSIDE RECORDS SUMMARY | 2023-07-06 11:35 | External Medical Summary | Continuity of Care Document ---
Author Name Unknown Organization [facility] KAYLYN A Address [address] [facility], [place] [id number] Care Team Providers Care Video And Sound Recorder Name Role Phone Aiyana Asencio Primary Care Physician [phone] Encounter [facility] JESSICA [phone] Date(s): 02/02/23 - 02/02/23 [place] [address] [employer] KAYLYN A [address] [address] [phone] Encounter Diagnosis Osteomyelitis(Discharge Diagnosis) - 02/02/23 DIABETES MELLITUS(Discharge Diagnosis) - 02/02/23 Chronic kidney disease (CKD)(Discharge Diagnosis) - 02/02/23 Hypothyroid(Discharge Diagnosis) - 02/02/23 Lymphedema of leg(Discharge Diagnosis) - 02/02/23 Hypoxia(Discharge Diagnosis) - 02/02/23 Discharge Disposition: Home or Self Care Attending Physician: MD Erasmo, [facility] Allergies, Adverse Reactions, Alerts Substance Reaction Severity Status ciprofloxacin nausea, body aches, joint pain and cramp ing Active albuterol itching Active seafood hives, throat closed, SOB Ac tive sulfites itching Active IVP dye rash and swelling Active Assessment and Plan Extracted from: Title:TeleHealth Visit Note Author:MD Erasmo, Do ngsheng Date:02/02/23 1.Osteomyelitis STATUS: Chronic, much better DATA: Reviewed labs GOAL: Resolution/prevention PLAN: f/u [facility] advised. saw infectious disease per pt. f/u podiatry. needs in person exam. Advised to come in to be seen NU. will do labs ordered 2.DIABETES MELLITUS STATUS: Chronic DATA: Reviewed labs GOAL: A1c<7 PLAN: f/u endo. on insulin. on Dexcom. 3.Hypothyroid STATUS: Chronic DATA: Reviewed labs GOAL: Maintain stability PLAN: continue med. f/u endo 4.Chronic kidney disease (CKD) STATUS: Chronic DATA: Reviewed labs GOAL: Resolution PLAN: f/u neph. 5.Hypoxia STATUS: Chronic - respiratory failure on home oxygen DATA: Reviewed labs GOAL: Resolution PLAN:continue oxygen. f/u pulm med 6.Lymphedema of leg STATUS: Chronic DATA: Reviewed labs GOAL: Reduce symptoms PLAN: refer backto rehab per request call prn. f/u 1 week with pcp Time spent: Pre-visit planning/chart review:10 minutes Twew-so-vjfj visit: 30 minutes Post-visit documentation: 1 minutes Care coordination:minutes Total visit time:41minutes Immunizations Given and Recorded Vaccine Date Status [...] day to 6 TIMES A DAY, Pharmacy [id number] [facility] Start Date: 07/18/21 Status: Ordered albuterol-ipratropium 2.5 mg-0.5 mg/3 mL inhalation solution Start: 10/31/22 12:54:00 EDT, See Instructions, Disp# 90 mL, Refills: 5, 3 ML INHALED THREE TIMES ADAY NEEDED FOR SHORTNESS OF BREATH OR WHEEZING, Pharmacy: [facility] #76741 Start Date: 10/31/22 Status: Ordered Atarax 25 mg oral tablet Start: 11/13/22 12:18:00 EDT, 1 tab, PO, qid, Disp# 28 tab, Refills: 5, PRN: as needed for itching,Pharmacy: [facility] #80048 Start Date: 11/13/22 Stop Date: 12/25/22 Status: Ordered BD 1 mL Ultra-Fine Insulin Syringe 30G x 1/2" Start: 07/11/17 10:06:00, See Instructions, Disp# 3 box, Refills: 5, use QID, Dx : E11.9, Pharmacy:[address] Start Date: 07/11/17 Status: Ordered EpiPen 2-Andres 0.3 mg injectable kit Start: 09/10/15 19:58:00, 0.3 mg =, IM, ONCE, Disp# 1 unit, Refills: 0, Pharmacy: [address] Start Date: 09/10/15 Status: Ordered FeroSul 325 mg (65 mg elemental iron) oral tablet Start: 03/29/22 13:05:00 EDT, See Instructions, Disp# 60 tab, Refills: 5, take 1 tablet by mouth twice a day, Pharmacy: [facility] [address] Start Date: 03/29/22 Status: Ordered fluticasone 50 mcg/inh nasal spray See Instructions, Disp# 16 g, Refills: 5, instill 2 sprays into each nostril once daily, Pharmacy: [address] Start Date: 09/13/20 Status: Ordered furosemide 20 mg oral tablet Start: 12/11/22 8:21:00 EDT, See Instructions, Disp# 60 tab, Refills: 11, take 2 tablets by mouth once daily, Pharmacy: [facility] [address] Start Date: 12/11/22 Status: Ordered glucose test strips Start: 12/14/17 9:37:57 EDT, See Instructions, Disp# 200 unit, Refills: 11, Ultra One touch; test QID to 6 times a day DX : E11.65, Pharmacy: [address] Start Date: 12/14/17 Status: Ordered Humalin UV 500 Start: 08/30/18 15:59:00 EST, Humalin UV 500, Note to Pharmacy: 60 units in AM & lunch, 70 dinner Start Date: 08/30/18 Status: Ordered levalbuterol CFC free 45 mcg/inh inhalation aerosol Start: 01/26/20 11:30:00 EDT, 2 puff, inhaled, q4h, Disp# 2 each, Refills: 5, PRN: as needed for wheezing, Pharmacy: [address] Start Date: 01/26/20 Status: Ordered levothyroxine 112 mcg (0.112 mg) oral tablet take 1 tablet by mouth once daily Start Date: 09/20/22 Status: Ordered montelukast 10 mg oral tablet Start: 10/16/22 9:11:00 EDT, See Instructions, Disp# 30 tab, Refills: 5, take 1 tablet by mouth every evening, Pharmacy: [id number] Start Date: 10/16/22 Status: Ordered Mucinex DM 600 mg-30 mg oral tablet, extended release Start: 04/20/20 7:51:00 EDT, 1 tab, PO, q12h, PRN: congestion Start Date: 04/20/20 Status: Ordered Nitrostat 0.4 mg sublingual tablet Start: 03/10/21 16:35:00 EDT, 1 tab, SL, q5min, Disp# 25 tab, Refills: 1, PRN: as needed for chest pain, Pharmacy: [address] Start Date: 03/10/21 Stop Date: 05/09/21 Status: Ordered ONETOUCH ULTRA BLUE TEST STRP ONETOUCH ULTRA BLUE TEST STRP, See Instructions, Disp# 200 strip, Refills: 6, TEST four times a dayto 6 TIMES A DAY, Pharmacy [address] Start Date: 05/11/20 Status: Ordered Oxygen Start: 11/01/17 10:35:00 EDT, Oxygen, See Instructions, PRN: QHS and PRN while asleep, 3 Liters viaN/C Wear with all hours of sleep Start Date: 11/01/17 Status: Ordered rosuvastatin 20 mg oral tablet Start: 01/18/22 13:55:00 EDT, See Instructions, Disp# 30 tab, Refills: 11, take 1 tablet by mouth at bedtime, Pharmacy: [address] Start Date: 01/18/22 Status: Ordered traMADol 50 mg oral tablet Start: 12/06/22 10:57:00 EDT, 1 tab, PO, q6h, Disp# 120 tab, Refills: 5, PRN: as needed for pain, Pharmacy: [facility] #[id number] Start Date: 12/06/22 Stop Date: 06/04/23 Status: Ordered triamcinolone 0.1% topical cream Start: 10/30/22 15:05:00 EDT, 1 appl, topical, bid, Disp# 454 g, Pharmacy: [facility] #[id number] Start Date: 10/30/22 Stop Date: 11/13/22 Status: Ordered Mental Status 02/02/23 Barriers to Learning one year None evide nt Mandatory Health Literacy Documentation Yes Health Literacy 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 Barriers N ever Primary Language Romansh Problem List Condition Confirmation Course Effective Dates [...] Effective Dates Health Status Clinical Service Informant Hypoxia Discharge Diagnosis 02/02/23 Lymphedema of leg Discharge Diagnosis 02/02/23 Hypothyroid Discharge Diagnosis 02/02/23 DIABETES MELLITUS Discharge Diagnosis 02/02/23 Chronic kidney disease (CKD) Discharge Diagnosis 02/02/23 Osteomyelitis Discharge Diagnosis 02/02/23 Procedures Procedure Date Related Diagnosis Body Site [...] ECG 35 03/28/15 Completed Thyroidectomy [address] [place] [address] Left Pathology: A benign follicular nodule with [facility] degeneration [facility]: 1. Ul[facility]ound-guided left thyroid nodule FNA x2 3XR CALCANEUS RT IMPRESSION: No osseous erosion identified to suggest osteomyelitis. 4[facility] Impression: 1. No change in the [...] which may reflect air trapping. No consolidation. [facility] Imp[facility]: 1. Technically difficult exam but no evidence of DVT within the RLE 2. [facility] right [facility]liteal cyst [facility] Imp[facility]: 1. Suspected mild mediastinal lymphadenopathy [...] diverticulae of sigmoid. Non-bleeding int. hemorrhoids. 13[facility] Impression: 1. Mild cardiomegaly with volume overload/congestive [...] Multinodular thyroid goiter. 5. Hepatic steatosis. 17[facility] Impression: 1 Soft tissue swelling with [...] radiographicf/u is recommended. 27EF=65-70%, no valvular disease 28[facility] Impression: 1. The right thyroid lobe appears surgically absent 2. Multinodular residual thyroid gland as described. Overall, the size of the nodules are not significantly changed compared to the prior study 29[facility] Impression: 1. No acute bony abnormality is seen 2. arthrititc change as above, greatest at the patellofemoral articulation. 3. small joint effusion. 30next scope in 5 yrs. 31Diverticulosis in the sigmoid colon. Internal hemorrhoids. the examined portion of the ileum was normal. the examination was otherwise normal on direct retroflexion views. No specimens collected. 32[facility] Impression: 1. Hepatomegaly demonstrating fatty change 2. The spleen is normal in size 3. Normal gallbladder. No gallstones 33Generalized intersistial and bronchovascular prominence. The appearane is suggestive of basilar bronchitis. 34[facility] Impression: 1. Mild cardiac enlargement with no acute cardiopulmonary abnormality. 35[facility] Impression: 1. No arrhythmia, no acute ST changes Social History Social History Type Response Smoking Status Never smoked cigaret melissa Sex Female FCM Outpt Note * MD Erasmo, Jerry: PERFORM Event Display: FCM Outpt Note Authored Date: [id number] TeleHealth Visit Note I have confirmed the patients name and date of . The patient has consented to this service,and I have advised the patient that this is a billable visit for which they may be subject to a copay. [ _x ] The patient has initiated this visit after he/she was informed of the availability of telehealth for this medically necessary visit. [ _ ] The provider initiated this visit after explaining the need for this visit to the patient, who has consented to this virtual visit. I am located at my: [ x_ ] Office [ _ ] Home [ _ ] Other: _ The patient is located at: [ _x ] Home [ _ ] Other: _ This visit was conducted via live audio/video technology: [ _x ] [facility] [ _ ] Zoom This visit was conducted via [ _ ] Telephone, and was not related to a visit or procedure that occurred within the past 7 days. Telephone Only Visit: Reason for audio only visit was [ _ ] no internet connection available [ _ ] Other: _. Total time spent communicating with the patient: _ minutes Chief Complaint pt calling about progres of picc line. on dexcom. History of Present Illness picc line: got it in hospital. was removed at [facility]. R foot middle toe infection "to the bone": was in hospital and on picc line for 6 weeks of antibiotic treatment. Toes looks "good". Was seen byortho doctor yesterday. hypoxia: still on 24 hour oxygen. lymphedema: wants to restart treatment. Review of Systems No fever/chills. No headache. No respiratory symptoms. No chest pain/shortness of breath. No nausea/vomiting. No abdominal pain. No change with bowels. No urinary symptoms. No rash. No bleeding. Noanxiety/depression. Other systems reviewed and are neg. Physical Exam General: No acute distress. Speaking in full sentences. Doesn't appear anxious or upset. on oxygen Neuro: Alert & oriented x 3, Pleasant & interactive. Logical thought. Psych: Normal affect Respiratory: Good inspiratory effort, no use of accessory muscles. No labored breathing. HEENT: Conjunctivae appear clear. No discharge noted from eyes. No nasal discharge. No congestion to voice. No swelling noted face or lips. No visible neck masses or JVD. Skin:small scab on tip of middle toe and small callus like lesion at base of small toe Assessment/Plan 1.Osteomyelitis STATUS: Chronic, much better DATA: Reviewed labs GOAL: Resolution/prevention PLAN: f/u [facility] advised. saw infectious disease per pt. f/u podiatry. needs in person exam. Advised to come in to be seen NU. will do labs ordered 2.DIABETES MELLITUS STATUS: Chronic DATA: Reviewed labs GOAL: A1c<7 PLAN: f/u endo. on insulin. on Dexcom. 3.Hypothyroid STATUS: Chronic DATA: Reviewed labs GOAL: Maintain stability PLAN: continue med. f/u endo 4.Chronic kidney disease (CKD) STATUS: Chronic DATA: Reviewed labs GOAL: Resolution PLAN: f/u neph. 5.Hypoxia STATUS: Chronic - respiratory failure on home oxygen DATA: Reviewed labs GOAL: Resolution PLAN:continue oxygen. f/u pulm med 6.Lymphedema of leg STATUS: Chronic DATA: Reviewed labs GOAL: Reduce symptoms PLAN: refer backto rehab per request call prn. f/u 1 week with pcp Time spent: Pre-visit planning/chart review:10 minutes Ezxq-sm-jrhg visit: 30 minutes Post-visit documentation: 1 minutes Care coordination:minutes Total visit time:41minutes Problem List/Past Medical History Ongoing Acquired lymphedema [...] Vaccine due01/20/23and every 1year Adult COVID-19 Vaccination due02/02/23Unknown Frequency Breast Cancer Screening due02/02/23Unknown Frequency Hepatitis C Screening due02/02/23One-time only Medicare Annual Wellness Visit due02/02/23and every 1year Osteoporosis Screening due02/02/23One-time only Pneumococcal Vaccine Older Adults due02/02/23One-time only Shingles Vaccine due02/02/23One-time only Due In Future Diabetes Management A1c not due until07/06/23and every 1year Satisfied(in the past 1 year) Satisfied Diabetes Management A1c on07/06/22.Satisfied by DAYANARA Kline Lisa Refused Diabetic Eye Exam on05/09/22.Recorded by HEIDI Colbert Karli RReason: Patient Refuses Electronic Signature on File Electronically Reviewed/Signed by: Jerry Zimmerman MD Author Signature Dt/Tm:02/02/2023 10:55 AM Department of Family Medicine DJ Patient Care team information Care Team Personnel Name: SCOTT Wheatley Janet Griffith Position: Nurse Pract - Gastro Member Role: Lifetime Relationship Address: Address: [address] [place] [address], [place] [address] Name: MD Elif, Aiyana Brown Position: Physician - Family Med Member Role: Primary Care Provider Address: Address: [address] [place] [address] [address] [place] [address] Care Team Related Persons Name: NING LOU Address: [place] Address: home [address] [place] [address] [address] [place] [phone] Name: NING LOU Address: home [address] [place] [address] [address] [place] [phone]
--- NOTE | 2023-07-06 13:42 | Cardiology Consultation ---
Date of Consultation July 06, 2023 Assessment & Plan (1) CAD S/P percutaneous coronary angioplasty: (2) CHF (congestive heart failure): (3) Pulmonary hypertension: Plan 1. Coronary artery disease: Although we do not have recent test regarding her myocardial perfusion she does not have any symptoms to suggest progression. I do not think we need to evaluate with stress testing or catheterization. 2. Congestive heart failure: She does not appear to have much in the way of left heart failure, her BNP is not terribly elevated and she does not seem to be in congestive heart failure on chest x-ray. She does have right heart failure and peripheral edema, that we probably cannot improve very much. 3. Pulmonary hypertension: She did have significant pulmonary hypertension on a prior echo about a year ago, I do not believe she has had 1 since. This is on the basis of lung disease. As long as general anesthesia is not considered I do not think we need further evaluation. She should be at acceptable risk for surgery as long as local anesthesia or nerve block are used, I would avoid general anesthesia. History of Present Illness Reason for Consultation: Preop clearance Attending Physician: Kaylah Medina MD History of Present Illness This is a 67-year-old woman with a history of hypertension, diabetes, chronic kidney disease as well as coronary artery disease. She did have intervention on her circumflex in December 2017, I believe she has had no further coronary evaluation or intervention. She was last seen by cardiology on July 07, [address] Rodríguez saw her in the hospital following syncopal event. Echocardiography on July 05, 2022 showed normal left ventricular size and function with evidence of right ventricular pressure or volume overload with moderate reduction in right ventricular systolic function and moderate ventricular hypertrophy. She did have moderate aortic stenosis and pulmonary hypertension. Her pulmonary hypertension is felt due to obesity hypoventilation syndrome and obstructive sleep apnea and she is followed by pulmonary. Her mean aortic valve gradient was 8 mmHg and a calculated aortic valve area is 1.2 cm. To my knowledge she has not had an echo since. She had a telephone visit with [facility] May 16, 2023, at that time she was having a lot of shortness of breath and fluid retention and she was diuresed. She tells me that she has improved significantly and feels much better now. I cannot confirm a decrease in weight, she weighs much more now than she did in the summer when she was last weighed in our records. She now presents now with osteomyelitis of her third toe of the right foot and I believe amputation is being considered. At the time of my evaluation she is laying supine in bed, is not having difficulty with shortness of breath and tells me that she cannot sit up. She feels that her edema has not worsened recently. Allergies Allergy/AdvReac Type Severity Reaction Status Date / Time Iodinated Contrast Media Allergy Severe Hives and Verified 07/05/23 19:15 kidney complications iodine Allergy Severe Hives and Verified 07/05/23 19:15 kidney complications shellfish derived Allergy Severe Anaphylaxis Verified 07/05/23 19:15 /Hives sulfite Allergy Severe HIVES AND Verified 07/05/23 19:15 THROAT CLOSES Home Medications Medication Instructions Recorded Confirmed Type rosuvastatin 20 mg tablet 20 mg PO HS 02/26/19 07/05/23 History tramadol 50 mg tablet 50 mg PO Q6H PRN Pain 05/17/20 07/05/23 History montelukast 10 mg tablet 10 mg PO HS 09/27/20 07/05/23 History levalbuterol tartrate 45 2 inh inhalation Q4H PRN Shortness 11/30/20 07/05/23 Rx mcg/actuation aerosol inhaler Of Breath Or Wheezing #15 grams (Xopenex HFA) nitroglycerin 0.4 mg sublingual 0.4 mg sublingual Q5M PRN Chest 11/30/20 07/05/23 History tablet Pain levalbuterol HCl 0.63 mg/3 mL 0.63 mg (3 mL) inhalation TID PRN 01/31/21 07/05/23 Rx solution for nebulization shortness of breath or wheezing #270 mL Oxygen Home #4 L 06/17/21 02/13/23 Rx furosemide 20 mg tablet 20 mg PO DAILY 07/05/22 07/05/23 History levothyroxine 112 mcg tablet See Rx Instructions .Route .COMPLEX 07/05/22 07/05/23 History nystatin 100,000 unit/gram topical 1 applic EXT BID #15 grams 07/09/22 07/05/23 Rx ointment BiPap Machine #1 ea 11/27/22 02/13/23 Rx insulin regular hum U-500 conc 500 See Rx Instructions .Route .COMPLEX 02/13/23 07/05/23 History unit/mL(3 mL) subcut pen ferrous sulfate 325 mg (65 mg 325 mg PO QAM 07/05/23 07/05/23 History iron) tablet fluticasone 250 mcg-salmeterol 50 1 inh inhalation BID wheezing/sob 07/05/23 07/05/23 History mcg/dose blistr powdr for inhalation (Advair Diskus) multivitamin 1 tab PO QAM 07/05/23 07/05/23 History epoetin milo-epbx 40,000 unit/mL 40,000 unit subcut Q7D 07/06/23 07/06/23 History injection solution (Retacrit) Patient History Medical History (Updated 07/06/23 @ 16:51 by Kervin Hurley MD) ARDS (adult respiratory distress syndrome) COVID-19 Chest pain Lymphedema Shortness of breath Obstructive sleep apnea syndrome Proteinuria Stage 3b chronic kidney disease Secondary pulmonary hypertension Obesity hypoventilation syndrome Morbid obesity due to excess calories Lymphedema of lower extremity Vitamin D deficiency Stage 3b chronic kidney disease Diarrhea Breathlessness Hypothyroidism Hypertension SOB (shortness of breath) Chronic respiratory failure 1 to 2 L oxygen Morbid obesity CAD S/P percutaneous coronary angioplasty Coronary artery disease Anemia Dyspnea CHF (congestive heart failure) Acute respiratory failure with hypoxia Thyroid cancer Diverticulitis GERD (gastroesophageal reflux disease) Diabetes Surgical History History of percutaneous coronary intervention History of colonoscopy H/O endoscopy H/O partial thyroidectomy Family History Other Diabetes Heart disease No pertinent family history Social History Smoking Status: Never smoker Second Hand Exposure: No; Do You Dip or Chew Tobacco: No; Hx Alcohol Use: No Hx Substance Use: No Preferred Language: Maltese 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 Ability: Effective Upsetter Setter Up Required: No Beliefs That Will Affect Care: None marital status: Current Living Situation: Spouse Current Living Situation Comment: current occupational status: disabled Feels Safe at Home: Yes Diet: other Diet Comment: low carb high protein "like a gastirc bypass diet" states seeing nutrionist caffeine: Yes during the past year weight has: increased > 10 lbs Physical Activity Frequency: Does not Exercise Do you think of yourself as: straight/heterosexual Gender Identity: Female Assistive Devices: CPAP, Glasses, Lift Chair, Oxygen - Continuous, Walker and Wheelchair Review of Systems Review of Systems: All systems reviewed & are unremarkable except as noted in HPI & below Physical Exam Physical Exam: Constitutional: Alert, cooperative and in no distress. Laying supine in bed. She is obese. HEENT: Unremarkable Neck: No jugular venous distention, carotid pulses are normal and equal bilaterally without bruits. Pulmonary: Clear to auscultation bilaterally on limited exam, she could not sit up obese,. Cardiac: Regular rhythm with no murmur, gallop or rub. Abdomen: Soft, obese, nontender with normal bowel sounds. Extremities: Marked bilateral edema in the legs. Neurologic: No focal findings on limited exam. Skin: No rash, ecchymoses or petechiae. Results & Data Vital Signs (Past 12 Hours) Vital Signs Temp Pulse Pulse Resp BP Pulse Ox O2 Del Method 07/06/23 12:23 Nasal Cannula 07/06/23 07:31 36.9 C 98 H 20 123/73 93 Nasal Cannula 07/06/23 04:00 37 C 90 20 123/65 98 Nasal Cannula 07/06/23 03:34 Nasal Cannula 07/06/23 03:34 37 C 90 20 123/65 98 Nasal Cannula 07/06/23 02:45 Nasal Cannula 07/06/23 02:33 82 137/60 90 Nasal Cannula O2 Flow Rate 07/06/23 12:23 2 07/06/23 07:31 3 07/06/23 04:00 4 07/06/23 03:34 4 07/06/23 03:34 4 07/06/23 02:45 4.5 07/06/23 02:33 4.5 Laboratory Results Cardiac Enzymes 07/05/23 07/05/23 07/06/23 Range/Units 17:36 19:45 05:47 AST 15 15 (13-39) U/L B-Natriuretic Peptide 310 H (0-100) pg/ml Coagulation 07/05/23 Range/Units 19:45 B-Natriuretic Peptide 310 H (0-100) pg/ml CBC 07/05/23 07/06/23 Range/Units 17:36 05:47 WBC 6.09 6.23 (4.8-10.8) K/ul RBC 3.80 L 3.83 L (4.20-5.40) M/uL Hgb 9.3 L 9.4 L (12.0-16.0) g/dl Hct 31.7 L 32.3 L (37.0-47.0) % Plt Count 218 206 (130-400) K/uL Neut # (Auto) 4.00 4.17 (1.40-6.50) K/uL Lymph # (Auto) 0.96 L 0.91 L (1.20-3.40) K/uL [place] # (Auto) 0.62 H 0.75 H (0.11-0.59) K/uL Eos # (Auto) 0.44 0.33 (0.00-0.50) K/uL Baso # (Auto) 0.05 0.03 (0.00-0.20) K/uL Comprehensive Metabolic Panel 07/05/23 07/06/23 Range/Units 17:36 05:47 Sodium 138 138 (136-145) mmol/L Potassium 3.3 L 3.4 L (3.5-5.1) mmol/L Chloride 102 103 (98-107) mmol/L Carbon Dioxide 29 27 (21-32) mmol/L BUN 24 H 24 H (6-23) mg/dl Creatinine 1.63 H 1.65 H (0.6-1.2) mg/dl Glucose 111 H 164 H (70-99(Fasting)) mg/dl Calcium 8.8 8.8 (8.6-10.3) mg/dl AST 15 15 (13-39) U/L ALT 7 5 L (7-52) U/L Alkaline Phosphatase 88 79 (34-104) U/L Total Protein 8.0 7.5 (6.0-8.3) gm/dl Albumin 3.2 L 3.1 L (3.4-5.0) gm/dl Intake and Output 07/06/23 07/06/23 07/06/23 06:59 14:59 22:59 Intake Total 555 / 605 Output Total 701 / 701 Balance 555 / 605 -701 / -701 Intake: IV 555 / 605 Vancomycin HCl 2,750 mg In 555 / 555 Sodium Chloride 0.9% 500 ml @ 180 mls/hr IV NOW STA Rx#: [id number] Output: Urine Amount (Catheter) 700 / 700 Mcfadden/Indwelling 700 / 700 # Bowel Movements Other: Other Intake Source npo Weight 170.3 kg 168.3 kg 168.3 kg Weight Measurement Method [facility] Patient Weight 07/07/23 06:59 Weight 168.3 kg PG Care Time/CCT Total # of Minutes Spent Total Time Spent with Patient: Total time spent is greater than 50% in coordination of care (as documented) at patient's floor/unit and/or counseling patient: Coding Level of Care Code 20729 INT INP/OBS CARE 375MIN Diagnoses CAD S/P percutaneous coronary angioplasty I25.10; Z98.61 Congestive heart failure, unspecified HF chronicity, unspecified heart failure type I50.9 Heart failure type: unspecified Heart failure chronicity: unspecified Pulmonary hypertension I27.20 (2) CHF (congestive heart failure) Heart failure type: unspecified Heart failure chronicity: unspecified Qualified Code(s): I50.9 - Heart failure, unspecified
--- NOTE | 2023-07-06 13:57 | Hospitalist Progress Note ---
Date of Service July 06, 2023 Assessment & Plan (1) Osteomyelitis of third toe of right foot: (2) Cellulitis of right foot: (3) Chronic acquired lymphedema: (4) Pressure ulcer: (5) Acute respiratory failure with hypoxia: (6) Anemia: (7) Chronic respiratory failure: (8) CKD (chronic kidney disease): (9) Diabetes: (10) Hypokalemia: Plan A 67 yo F w/ PMHx of T2DM, osteomyelitis of r. third toe, cellulitis of r. foot, GERD, anxiety, cellulitis, unstable angina, CKD-stage 3b, CAD (s/p PCI), HTN, STEWART, AVM (GI tract), among other conditions, who presented to the emergency department with new onset swelling and erythema of her 3rd toe (r. foot) and concerns for recurrent osteomyelitis. Additionally patient had point tenderness in her r. lower back with concerns for pressure ulcers in various stages of development. 1. Recurrent osteomyelitis, 3rd toe, r. foot - Foot X-ray: "Third digit ulcer with third distal phalangeal osteomyelitis." - pt did not want MRI due to size restrictions of equipment - Patient treated w/ 6-wk course of Rocephin as outpt w/ PICC line back in November for osteomyelitis, had appt with toy mechanic for amputation sometime following completion of Abx course, but was not cleared by cardiology in pre-op appt due to significantly increased leg edema at the time. - Blood Cx pending Currently on daptomycin and ceftriaxone Cellulitis improving on this current regimen Awaiting cardiology preop evaluation Awaiting podiatry input Patient has remained n.p.o. for potential procedure today 2. Pressure ulcers, back - two ulcers noted in r. lower back --> one looked chronic, very deep, with probable decreased sensation, less painful; second looked like developing ulcer, more painful - wound consult placed 3. Chronic lymphedema - pt has graded pressure stocking to help manage - r. leg has become progressively worse for last few months 4. CHF - chest X-ray noted cardiomegaly w/out any acute cardiac findings - continue Furosemide 20 mg PO daily Seems to be compensated at this time - pre-op consult put in to cardiology to clear for surg with podiatry/orthopedics 5. Anemia (chronic renal failure and iron-deficiency anemia) - Hgb 9.3 upon admission, trend CBC - continue home meds: Procrit, ferrous sulfate 6. T2DM - 120 - 160 mg/dL range; 20 correction factor; 10 carb ratio for Aspart - 5 units, BID Glargine - pharm consult put in to manage pt's T2DM 7. CKD stage III Baseline creatinine 1.3-1.9 Creatinine at baseline Avoid nephrotoxic medications Diabetic nephropathy 7. Hx of CAD - continue rosuvastatin, nitroglycerin as needed 8. chronic resp failure/obesity hypoventilation syndrome - continue Advair, continue levalbuterol Patient uses 4 L of oxygen at rest and 5 L on exertion chronically. 9. STEWART on CPAP - continue CPAP while in hospital 10. hypokalemia - 3.3 on admission, trend CMP or BMP Admission and Anticipated Discharge Date Admission Date: July 05, 2023 Subjective Patient says that her right third toe looks and feels much better since she got admitted. She denies any chest pain or shortness of breath. She tells me that she uses 4 L of oxygen at all times of 5 L on exertion. Review of Systems Review of Systems: All systems reviewed & are unremarkable except as noted in Subjective Physical Exam Physical Exam: General: Awake, conversant, morbidly obese Heart: S1, S2/regular rate and rhythm, no murmur rubs or gallops Lungs: Clear to auscultation bilaterally. Normal effort Abdomen: Soft/nontender/nondistended. Obese abdomen. No hepatosplenomegaly Extremities: No clubbing/cyanosis. No edema. Right third toe cellulitic Behavior: Appropriate, cooperative Results & Data Results & Data Vital Signs (Past 12 Hours) Vital Signs Temp Pulse Pulse Resp BP Pulse Ox O2 Del Method 07/06/23 12:23 Nasal Cannula 07/06/23 07:31 36.9 C 98 H 20 123/73 93 Nasal Cannula 07/06/23 04:00 37 C 90 20 123/65 98 Nasal Cannula 07/06/23 03:34 Nasal Cannula 07/06/23 03:34 37 C 90 20 123/65 98 Nasal Cannula 07/06/23 02:45 Nasal Cannula 07/06/23 02:33 82 137/60 90 Nasal Cannula O2 Flow Rate 07/06/23 12:23 2 07/06/23 07:31 3 07/06/23 04:00 4 07/06/23 03:34 4 07/06/23 03:34 4 07/06/23 02:45 4.5 07/06/23 02:33 4.5 Laboratory Results Abnormal lab results 07/05/23 07/05/23 07/05/23 Range/Units 17:36 19:45 22:19 RBC 3.80 L (4.20-5.40) M/uL Hgb 9.3 L (12.0-16.0) g/dl Hct 31.7 L (37.0-47.0) % MCH 24.5 L (25.0-34.0) pg MCHC 29.3 L (32.0-36.0) g/dL RDW Std Deviation 69.8 H (36.4-46.3) fL RDW Coeff of Cherelle 23.4 H (11.5-14.5) % Lymph # (Auto) 0.96 L (1.20-3.40) K/uL [place] # (Auto) 0.62 H (0.11-0.59) K/uL Potassium 3.3 L (3.5-5.1) mmol/L BUN 24 H (6-23) mg/dl Creatinine 1.63 H (0.6-1.2) mg/dl Glucose 111 H (70-99(Fasting)) mg/dl POC Glucose 64 L* (70-99) mg/dl Total Bilirubin 1.2 H (0.2-1.0) mg/dl ALT (7-52) U/L C-Reactive Protein 2.88 H (0-0.5) mg/dl B-Natriuretic Peptide 310 H (0-100) pg/ml Albumin 3.2 L (3.4-5.0) gm/dl Globulin 4.8 H (2.5-4.0) gm/dl Albumin/Globulin Ratio 0.7 L (0.9-2) 07/05/23 07/06/23 07/06/23 Range/Units 22:21 01:44 05:47 RBC 3.83 L (4.20-5.40) M/uL Hgb 9.4 L (12.0-16.0) g/dl Hct 32.3 L (37.0-47.0) % MCH 24.5 L (25.0-34.0) pg MCHC 29.1 L (32.0-36.0) g/dL RDW Std Deviation 69.9 H (36.4-46.3) fL RDW Coeff of Cherelle 23.1 H (11.5-14.5) % Lymph # (Auto) 0.91 L (1.20-3.40) K/uL [place] # (Auto) 0.75 H (0.11-0.59) K/uL Potassium 3.4 L (3.5-5.1) mmol/L BUN 24 H (6-23) mg/dl Creatinine 1.65 H (0.6-1.2) mg/dl Glucose 164 H (70-99(Fasting)) mg/dl POC Glucose 67 L* 159 H (70-99) mg/dl Total Bilirubin 1.1 H (0.2-1.0) mg/dl ALT 5 L (7-52) U/L C-Reactive Protein (0-0.5) mg/dl B-Natriuretic Peptide (0-100) pg/ml Albumin 3.1 L (3.4-5.0) gm/dl Globulin 4.4 H (2.5-4.0) gm/dl Albumin/Globulin Ratio 0.7 L (0.9-2) 07/06/23 07/06/23 Range/Units 07:36 11:42 RBC (4.20-5.40) M/uL Hgb (12.0-16.0) g/dl Hct (37.0-47.0) % MCH (25.0-34.0) pg MCHC (32.0-36.0) g/dL RDW Std Deviation (36.4-46.3) fL RDW Coeff of Cherelle (11.5-14.5) % Lymph # (Auto) (1.20-3.40) K/uL [place] # (Auto) (0.11-0.59) K/uL Potassium (3.5-5.1) mmol/L BUN (6-23) mg/dl Creatinine (0.6-1.2) mg/dl Glucose (70-99(Fasting)) mg/dl POC Glucose 206 H 228 H (70-99) mg/dl Total Bilirubin (0.2-1.0) mg/dl ALT (7-52) U/L C-Reactive Protein (0-0.5) mg/dl B-Natriuretic Peptide (0-100) pg/ml Albumin (3.4-5.0) gm/dl Globulin (2.5-4.0) gm/dl Albumin/Globulin Ratio (0.9-2) Diagnostic Findings Foot X-Ray 07/05/23 16:32 XR foot RT min 3V routine HISTORY: 67 years-old Female redness, swelling, osteomyelitis 3rd toe acute pain and swelling of the right foot COMPARISON: 11/30/2022 TECHNIQUE: 3 views of the right foot FINDINGS: Moderate soft tissue swelling. Demineralized appearance of the bones. Degenerative spurring of the calcaneus. Soft tissue ulcer of the distal third toe with bony erosion of the third distal phalangeal tuft. IMPRESSION: Third digit ulcer with third distal phalangeal osteomyelitis. ACT 112: Negative or not required by law. The above report was generated using voice recognition software. It may contain grammatical, syntax or spelling errors. Electronically signed by: Jose Katz M.D. 07/05/2023 4:55 PM Chest X-Ray 07/05/23 19:27 SINGLE VIEW CHEST CLINICAL HISTORY: Edema. FINDINGS: An AP, portable, upright chest radiograph is compared to study dated 12/07/2022 and correlated with chest CT dated 07/19/2020. The examination is degraded by portable technique comment large body habitus, and apical lordotic positioning. The heart is enlarged. The pulmonary vasculature is not congested. Chronic interstitial thickening is similar to previous. The lungs and pleural spaces are clear noting bibasilar atelectasis. No pneumothorax is seen. The skeletal structures are osteopenic. The bony thorax is grossly intact. IMPRESSION: Cardiomegaly with no acute cardiopulmonary abnormality identified. ACT 112: Negative or not required by law. Electronically signed by: Puneet Castañeda M.D. 07/05/2023 7:58 PM PG Care Time/CCT Total # of Minutes Spent Total Time Spent with Patient: Total time spent is greater than 50% in coordination of care (as documented) at patient's floor/unit and/or counseling patient: Coding Level of Care Code 37687 SUB INP/OBS CARE 2/35MIN Diagnoses Osteomyelitis of third toe of right foot M86.9 Cellulitis of right foot L03.115 Chronic acquired lymphedema I89.0 Pressure ulcer L89.90 Acute respiratory failure with hypoxia J96.01 Anemia, unspecified type D64.9 Chronic respiratory failure J96.10 CKD (chronic kidney disease) N18.9 Type 2 diabetes mellitus without complication, with long-term current use of insulin E11.9; Z79.4 Diabetes mellitus complication status: without complication Diabetes mellitus mcfp insulin use: with terminal operations supervisor use Diabetes mellitus type: type 2 Hypokalemia E87.6 (9) Diabetes Diabetes mellitus complication status: without complication Diabetes mellitus terminal operations supervisor insulin use: with terminal operations supervisor use Diabetes mellitus type: type 2 Qualified Code(s): E11.9 - Type 2 diabetes mellitus without complications; 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
[2023-07-06] MEDS ORDERED: POTASSIUM CHLORIDE CRTAB 20 MEQ TABCR PO STA (13:58)
--- NOTE | 2023-07-06 14:13 | Pharmacy Report ---
Pharmacy Glycemic Short Note 2 - Date of Service July 06, 2023 - Glycemic Short BSG Results (Last 24 hours): 07/05/23 07/05/23 07/05/23 17:36 20:31 22:19 Glucose 111 H POC Glucose 77 64 L* 07/05/23 07/05/23 07/06/23 22:21 23:29 01:44 Glucose POC Glucose 67 L* 87 159 H 07/06/23 07/06/23 07/06/23 05:47 07:36 11:42 Glucose 164 H POC Glucose 206 H 228 H OUTPATIENT ANTIDIABETIC REGIMEN: * Humulin R U-500: 50 units SQ with breakfast and lunch HbA1c: 7.6% (03/27/23) ASSESSMENT: * Pt is a 67 year old female known to the glycemic service admitted with osteomyelitis of the toe. History of DM2 on U-500 at home. Pharmacy consulted to assist with glycemic management while inpatient. * BSGs [id number]/dL since admission. No evening insulin yesterday. * Currently NPO and receiving IV antibiotics. * Given NPO status all day today, and relatively low dose of outpatient insulin for U-500, will continue reduced dose Lantus for now (versus switching to NPH) in order to prevent low BSGs. Scaled dose at dinner depending on BSG. Novolog ACHS based upon home dose given BSGs in 200s today. PLAN FOR INPATIENT GLYCEMIC CONTROL: * Hold outpatient oral diabetes medications * Basal insulin * Lantus 20 units SQ qam + HS scale * Bolus insulin * NovoLog per scale ACHS or Q6hrs while NPO * Goal Range: Low 110 mg/dL - High 140 mg/dL * Correction Factor: 15 mg/dL/unit * Nutritional / Prandial insulin per carb ratio of 1 unit per 6 grams CHO consumed
[2023-07-06] MEDS ORDERED: MIDAZOLAM HCL 1 MG/ML 2ML VIAL ONE (15:40)
[2023-07-06] MEDS ORDERED: PROPOFOL IV EMULSION 10 MG/ML 20 ML VIAL IV ONE (15:40)
[2023-07-06] MEDS ORDERED: KETAMINE HCL 10MG/ML SYR ONE (15:42)
[2023-07-06] MEDS ORDERED: BUPIVACAINE 0.5 % 5 MG/1 ML MPF 30ML VIAL ONE (15:45)
[2023-07-06] MEDS ORDERED: LIDOCAINE 1% LOCAL 20 ML VIAL ONE (15:45)
[2023-07-06] MEDS ORDERED: ceFAZolin 330 MG/ML 1 GM VIAL ONE ×2 (15:45→16:07)
--- NOTE | 2023-07-06 15:54 | Anesthesiology Consultation ---
Date of Service July 06, 2023 Assessment & Plan Chart Review Chart Review: Acceptable Risk for Surgery Consults Requested none History Surgery Operation Date: 07/06/23 11:10 Proposed Procedures p Right Foot 3rd Toe Amputation - Cameron Mayer DO Height/Weight Height: 5 ft Weight: 168.3 kg Allergies Allergy/AdvReac Type Severity Reaction Status Date / Time Iodinated Contrast Media Allergy Severe Hives and Verified 07/05/23 19:15 kidney complications iodine Allergy Severe Hives and Verified 07/05/23 19:15 kidney complications shellfish derived Allergy Severe Anaphylaxis Verified 07/05/23 19:15 /Hives sulfite Allergy Severe HIVES AND Verified 07/05/23 19:15 THROAT CLOSES Medications Home Medications Medication Instructions Recorded Confirmed Last Taken rosuvastatin 20 mg tablet 20 mg PO HS 02/26/19 07/05/23 07/04/23 tramadol 50 mg tablet 50 mg PO Q6H PRN Pain 05/17/20 07/05/23 06/14/21 montelukast 10 mg tablet 10 mg PO HS 09/27/20 07/05/23 07/04/23 levalbuterol tartrate 45 2 inh inhalation Q4H PRN Shortness 11/30/20 07/05/23 06/13/21 mcg/actuation aerosol inhaler Of Breath Or Wheezing #15 grams (Xopenex HFA) nitroglycerin 0.4 mg sublingual 0.4 mg sublingual Q5M PRN Chest 11/30/20 07/05/23 03/08/21 tablet Pain levalbuterol HCl 0.63 mg/3 mL 0.63 mg (3 mL) inhalation TID PRN 01/31/21 07/05/23 06/13/21 solution for nebulization shortness of breath or wheezing #270 mL Oxygen Home #4 L 06/17/21 02/13/23 Unknown furosemide 20 mg tablet 20 mg PO DAILY 07/05/22 07/05/23 07/05/23 levothyroxine 112 mcg tablet See Rx Instructions .Route .COMPLEX 07/05/22 07/05/23 07/05/23 nystatin 100,000 unit/gram topical 1 applic EXT BID #15 grams 07/09/22 07/05/23 11/30/22 ointment BiPap Machine #1 ea 11/27/22 02/13/23 Unknown insulin regular hum U-500 conc 500 See Rx Instructions .Route .COMPLEX 02/13/23 07/05/23 07/05/23 unit/mL(3 mL) subcut pen ferrous sulfate 325 mg (65 mg 325 mg PO QAM 07/05/23 07/05/23 07/04/23 iron) tablet fluticasone 250 mcg-salmeterol 50 1 inh inhalation BID wheezing/sob 07/05/23 07/05/23 Unknown mcg/dose blistr powdr for inhalation (Advair Diskus) multivitamin 1 tab PO QAM 07/05/23 07/05/23 07/04/23 epoetin milo-epbx 40,000 unit/mL 40,000 unit subcut Q7D 07/06/23 07/06/23 Unknown injection solution (Retacrit) Active Medications Generic Name Dose Route Start Last Admin Trade Name Freq PRN Reason Stop Dose Admin Ferrous Sulfate 325 mg 07/06/23 09:00 07/06/23 08:50 Ferrous Sulfate 325 Mg Tab PO 08/05/23 08:59 325 mg QAM LEONA Administration Fluticasone/Vilanterol 1 puffs 07/06/23 09:00 07/06/23 08:51 Fluticasone/Vilanterol 100/25mcg 14 Puffs/Inhaler INH 08/05/23 08:59 1 puffs DAILY LEONA Administration Furosemide 20 mg 07/06/23 09:00 07/06/23 08:51 Furosemide 20 Mg Tab PO 08/05/23 08:59 20 mg DAILY LEONA Administration Heparin Sodium (Porcine) 5,000 units 07/06/23 06:00 07/06/23 14:20 Heparin Sod 5,000 Unit/0.5 Ml Vial SQ 08/05/23 05:59 Not Given Q8 LEONA Insulin Aspart 0 units 07/06/23 07:30 07/06/23 12:48 Insulin Aspart Per Unit Charge SC 08/05/23 07:29 6 units ACHS LEONA Administration Levothyroxine Sodium 112 mcg 07/06/23 06:30 07/06/23 06:14 Levothyroxine Sodium 112 Mcg Tablet PO 08/05/23 06:29 112 mcg [id number] LEONA Administration Multivitamins 1 tab 07/06/23 09:00 07/06/23 08:50 Multivitamin Tab PO 08/05/23 08:59 1 tab QAM LEONA Administration Nystatin 1 appln 07/06/23 09:00 07/06/23 08:51 Nystatin Oint 15 Gm Tube EXT 08/05/23 08:59 1 appln BID LEONA Administration Tramadol HCl 50 mg 07/06/23 04:06 07/06/23 08:55 Tramadol Hcl 50 Mg Tablet PO 08/05/23 04:05 50 mg Q6H PRN Administration Pain NPO Date Last Intake of Fluids: 07/05/23 Time Last Intake of Fluids: 23:00 Date Last Intake of Solids: 07/05/23 Time Last Intake of Solids: 23:00 Past Medical History Medical History ARDS (adult respiratory distress syndrome) COVID-19 Chest pain Lymphedema Shortness of breath Obstructive sleep apnea syndrome Proteinuria Stage 3b chronic kidney disease Secondary pulmonary hypertension Obesity hypoventilation syndrome Morbid obesity due to excess calories Lymphedema of lower extremity Vitamin D deficiency Stage 3b chronic kidney disease Diarrhea Breathlessness Hypothyroidism Hypertension SOB (shortness of breath) Chronic respiratory failure 1 to 2 L oxygen Morbid obesity CAD S/P percutaneous coronary angioplasty Coronary artery disease Anemia Dyspnea CHF (congestive heart failure) Acute respiratory failure with hypoxia Thyroid cancer Diverticulitis GERD (gastroesophageal reflux disease) Diabetes Past Family History Family History Other Diabetes Heart disease No pertinent family history Past Surgical History Surgical History H/O endoscopy H/O partial thyroidectomy History of colonoscopy History of percutaneous coronary intervention Social History Smoking Status: Never smoker Do You Dip or Chew Tobacco: No Hx Alcohol Use: No Hx Substance Use: No substance use type: does not use Physical Exam Vital Signs Last Vital Signs Temp 36.6 C 07/06/23 15:25 Pulse 85 07/06/23 15:25 Resp 24 07/06/23 15:25 BP 114/65 07/06/23 15:25 Pulse Ox 98 07/06/23 15:25 O2 Del Method Nasal Cannula 07/06/23 15:25 O2 Flow Rate 4 07/06/23 15:25 Testing Laboratory Results 07/06/23 05:47 07/06/23 05:47 07/06/23 07/06/23 11:42 07:36 POC Glucose 228 H 206 H
[2023-07-06] MEDS ORDERED: ATROPINE SULFATE 0.1 MG/ML 10ML SYR IV PRN (15:56)
[2023-07-06] MEDS ORDERED: ePHEDrine sulfate 50 MG/ML AMP IV PRN (15:56)
--- NOTE | 2023-07-06 16:01 | Orthopedic Consultation ---
Date of Consultation July 06, 2023 Assessment & Plan (1) Chronic osteomyelitis with draining sinus, right ankle and foot: Recommend surgical treatment: Right foot third toe amputation. All potential risks, benefits, alternatives and rehab have been discussed with patient. Patient decided to proceed again. Anesthesia plan for sedation with nerve block due to concerns regarding cardiac condition. Osteomyelitis with potential for sepsis designates this as an urgent case. Partial weightbearing right foot postoperative shoe and soft dressing. Continue IV antibiotics per medical service. Thank you for the opportunity to consult in the care of this patient. [facility] [phone] (2) Skin ulcer of third toe of right foot with necrosis of bone: (3) Type 2 diabetes mellitus with foot ulcer: (4) Type 2 diabetes mellitus with polyneuropathy: History of Present Illness Reason for Consultation: Right foot third toe osteomyelitis with active infection and cellulitis. Attending Physician: Kaylah Medina MD History of Present Illness This pleasant 67-year-old female has had ongoing right third toe confirmed osteomyelitis since November 2022. Patient had waxing and waning symptoms of redness, swelling and intermittent drainage and she was placed on IV antibiotics for a period of 6 weeks. Patient failed IV antibiotic therapy and was seen by Dr. Rg Faye for ongoing management. The patient was scheduled to have a right third toe amputation in May of this year however her director of broadcast recommended against surgery would not allow surgical clearance. Patient most recently began having redness and swelling and was concerned about increasingly active osteomyelitis and was instructed by her lap regulator to present to the emergency department for further care and management. Patient was admitted to the hospitalist service and orthopedics was consulted. Allergies Allergy/AdvReac Type Severity Reaction Status Date / Time Iodinated Contrast Media Allergy Severe Hives and Verified 07/05/23 19:15 kidney complications iodine Allergy Severe Hives and Verified 07/05/23 19:15 kidney complications shellfish derived Allergy Severe Anaphylaxis Verified 07/05/23 19:15 /Hives sulfite Allergy Severe HIVES AND Verified 07/05/23 19:15 THROAT CLOSES Home Medications Medication Instructions Recorded Confirmed Type rosuvastatin 20 mg tablet 20 mg PO HS 02/26/19 07/05/23 History tramadol 50 mg tablet 50 mg PO Q6H PRN Pain 05/17/20 07/05/23 History montelukast 10 mg tablet 10 mg PO HS 09/27/20 07/05/23 History levalbuterol tartrate 45 2 inh inhalation Q4H PRN Shortness 11/30/20 07/05/23 Rx mcg/actuation aerosol inhaler Of Breath Or Wheezing #15 grams (Xopenex HFA) nitroglycerin 0.4 mg sublingual 0.4 mg sublingual Q5M PRN Chest 11/30/20 07/05/23 History tablet Pain levalbuterol HCl 0.63 mg/3 mL 0.63 mg (3 mL) inhalation TID PRN 01/31/21 07/05/23 Rx solution for nebulization shortness of breath or wheezing #270 mL Oxygen Home #4 L 06/17/21 02/13/23 Rx furosemide 20 mg tablet 20 mg PO DAILY 07/05/22 07/05/23 History levothyroxine 112 mcg tablet See Rx Instructions .Route .COMPLEX 07/05/22 07/05/23 History nystatin 100,000 unit/gram topical 1 applic EXT BID #15 grams 07/09/22 07/05/23 Rx ointment BiPap Machine #1 ea 11/27/22 02/13/23 Rx insulin regular hum U-500 conc 500 See Rx Instructions .Route .COMPLEX 02/13/23 07/05/23 History unit/mL(3 mL) subcut pen ferrous sulfate 325 mg (65 mg 325 mg PO QAM 07/05/23 07/05/23 History iron) tablet fluticasone 250 mcg-salmeterol 50 1 inh inhalation BID wheezing/sob 07/05/23 07/05/23 History mcg/dose blistr powdr for inhalation (Advair Diskus) multivitamin 1 tab PO QAM 07/05/23 07/05/23 History epoetin milo-epbx 40,000 unit/mL 40,000 unit subcut Q7D 07/06/23 07/06/23 History injection solution (Retacrit) Patient History Medical History ARDS (adult respiratory distress syndrome) COVID-19 Chest pain Lymphedema Shortness of breath Obstructive sleep apnea syndrome Proteinuria Stage 3b chronic kidney disease Secondary pulmonary hypertension Obesity hypoventilation syndrome Morbid obesity due to excess calories Lymphedema of lower extremity Vitamin D deficiency Stage 3b chronic kidney disease Diarrhea Breathlessness Hypothyroidism Hypertension SOB (shortness of breath) Chronic respiratory failure 1 to 2 L oxygen Morbid obesity CAD S/P percutaneous coronary angioplasty Coronary artery disease Anemia Dyspnea CHF (congestive heart failure) Acute respiratory failure with hypoxia Thyroid cancer Diverticulitis GERD (gastroesophageal reflux disease) Diabetes Surgical History H/O endoscopy H/O partial thyroidectomy History of colonoscopy History of percutaneous coronary intervention Family History Other Diabetes Heart disease No pertinent family history Social History Smoking Status: Never smoker Second Hand Exposure: No; Do You Dip or Chew Tobacco: No; Hx Alcohol Use: No Hx Substance Use: No Preferred Language: Swazi 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 Ability: Effective Courtesy Car Driver Required: No Beliefs That Will Affect Care: None marital status: Current Living Situation: Spouse Current Living Situation Comment: current occupational status: disabled Feels Safe at Home: Yes Diet: other Diet Comment: low carb high protein "like a gastirc bypass diet" states seeing nutrionist caffeine: Yes during the past year weight has: increased > 10 lbs Physical Activity Frequency: Does not Exercise Do you think of yourself as: straight/heterosexual Gender Identity: Female Assistive Devices: CPAP, Glasses, Lift Chair, Oxygen - Continuous, Walker and Wheelchair Physical Exam Constitutional: WD/WN, vitals as above Eyes: PERRL, conjunctivae normal, anicteric sclerae ENMT: external ear and nose normal, oropharynx normal Neck: trachea midline, no thyromegaly Respiratory: Nonlabored breathing. Lungs clear to auscultation bilaterally. Cardiovascular: Lymphedema x 4 extremities however well-perfused x 4. Regular rate and rhythm. Gastrointestinal (Abdomen): Abdomen is obese, nontender and nondistended. Bowel sounds present. Musculoskeletal: Right third toe with fusiform erythema and edema. Dystrophic toenail with draining ulcer from the distal tip of the third toe. Maceration of the distal third toe. Pedal pulses are palpable. Skin is warm and dry. Poor hair growth bilateral feet. Normal passive range of motion of the ankles, midfoot, hindfoot and forefoot. Compartments are soft. Lymphedema bilateral lower extremities. Skin: Skin is dry with multiple healed calluses and ulcers on bilateral feet. The right third toe demonstrates skin breakdown with slight discharge and drainage from the tip of the third toe with dystrophic nail. Fusiform swelling of the right third toe. Neurologic: PERRL, EOMI, accommodation nl, no face palsy, no dysarthria Bilateral lower extremity neuropathy to the level of the midfoot Psychiatric: A+Ox3, euthymic affect Lymphatic: Bilateral lower extremity lymphedema. Results & Data Vital Signs (Past 12 Hours) Vital Signs Temp Pulse Resp BP Pulse Ox O2 Del Method O2 Flow Rate 07/06/23 15:25 36.6 C 85 24 114/65 98 Nasal Cannula 4 07/06/23 14:42 36.5 C 84 18 128/74 100 Nasal Cannula 2 07/06/23 12:23 Nasal Cannula 2 07/06/23 07:31 36.9 C 98 H 20 123/73 93 Nasal Cannula 3 07/06/23 04:00 37 C 90 20 123/65 98 Nasal Cannula 4 Laboratory Results Laboratories reviewed. Diagnostic Findings Radiographs of the right foot demonstrate osteomyelitis distal tuft right third toe with fusiform soft tissue swelling.
[2023-07-06] MEDS ORDERED: LANTUS PER UNIT CHARGE SC SCH (17:00)
[2023-07-06] MEDS: fentaNYL citrate PF 100 MCG/2 ML VIAL IV PRN ×3 (17:26→17:37)
[2023-07-06] MEDS ORDERED: fentaNYL citrate PF 100 MCG/2 ML VIAL ONE (17:26)
--- NOTE | 2023-07-06 17:40 | Operative Report ---
Post Operative Report Pre & Post Diagnosis Operation Date: 07/06/23 11:10 Pre-Op Diagnosis: Right third toe osteomyelitis, osteomyelitis with draining ulcer right third toe, diabetes mellitus type 2 with polyneuropathy, diabetic ulcer with penetration to bone right third toe Post-Op Diagnosis: Right third toe osteomyelitis, osteomyelitis with draining ulcer right third toe, diabetes mellitus type 2 with polyneuropathy, diabetic ulcer with penetration to bone right third toe I identified the patient and participated in the time-out.: Yes Procedure Operation Date: 07/06/23 11:10 Actual Procedures p Right Foot third toe Amputation(Right) - Cameron Mayer DO Surgeon Cameron Mayer DO Rubber Goods Repairer None Estimated Blood Loss 1 Findings Consistent with Post-Op Diagnosis Specimens Right third toe for pathological specimen Anesthesia Type MAC Regional Complications none Disposition Accompanied Patient To Recovery: No Indications This is a pleasant 67-year-old female with a 7-month history of osteomyelitis with draining sinus in the right third toe. Patient failed conservative management up to and including 6 weeks of IV antibiotics with progressive worsening over the last 1 to 2 weeks. Osteomyelitis confirmed with third toe distal phalanx bony erosions with fusiform soft tissue swelling noted on plain radiographs during this admission. Patient is scheduled for surgery as indicated. Description of Procedure All potential risks, benefits, complications, alternatives, rehab, need for further surgery, potential for incomplete relief of symptoms, neurovascular i njury, DVT, PE, , stiffness, weakness, loss of function, persistent pain, swelling, numbness, bone fracture and wound complications were discussed with the patient and family. The patient and family decided to proceed with the procedure as indicated. The patient was taken to the operative suite and placed supine on the operating room table. The consent was reviewed and the proper operative site was identified. The patient was sedated and the right lower extremity was then sterilely prepped and draped in the usual fashion. A partial ankle with central midfoot regional nerve block was performed prior to the procedure using 30 cc of 0.5% Marcaine plain. Next the right lower limb was elevated and exsanguinated with an Esmarch bandage. An Esmarch bandage was then placed over a sterile surgical towel at the level of the right ankle. A 15 blade scalpel was used to make an elliptical incision started at the proximal dorsal base of the third toe extending medially and laterally to the plantar aspect of the base the therapy toe. This incision was deepened to the subcutaneous tissue both medially and laterally. Next careful scissor dissection was then performed to identify the neurovascular bundles which were then cauterized medially and laterally. Next the extensor tendon was then incised dorsally and the flexor tendon was incised on the plantar aspect of the third toe. Next appropriate house retractors were placed in the incision revealing the capsular ligaments circumferentially which were then released with a 15 blade scalpel at the third metatarsophalangeal join t. Next the third toe was then removed and passed off as pathological specimen. Next the wound was copiously irrigated with sterile normal saline. The skin flaps were then carefully closed with buried, interrupted 3-0 Vicryl sutures. Next the skin was closed using buried interrupted 3-0 Monocryl sutures. A sterile, semi-bulky, well-padded compressive forefoot dressing was applied overwrapped with an Chi wrap. The tourniquet was released. The patient was awakened and taken to recovery in stable condition and placed into a postoperative shoe. I attest to the content of the Intraoperative Record and any orders documented therein. Any exceptions are noted below.
--- NOTE | 2023-07-06 18:12 | Anesthesiology Progress Note ---
Date of Service July 06, 2023 Anesthesia Post Procedure Vital Signs Vital Signs: Temp Pulse Pulse Pulse Resp BP BP 07/06/23 17:50 88 14 130/66 07/06/23 17:40 88 16 129/71 07/06/23 17:30 88 16 125/72 07/06/23 17:20 88 18 142/70 H 07/06/23 17:10 36 C L 98 H 16 114/88 07/06/23 15:25 36.6 C 85 24 114/65 07/06/23 14:42 36.5 C 84 18 128/74 07/06/23 12:23 07/06/23 07:31 36.9 C 98 H 20 123/73 07/06/23 04:00 37 C 90 20 123/65 07/06/23 03:34 07/06/23 03:34 37 C 90 20 123/65 07/06/23 02:45 07/06/23 02:33 82 137/60 07/05/23 23:21 86 20 118/56 L 07/05/23 22:52 85 23 07/05/23 21:00 84 20 157/82 H 07/05/23 20:30 81 16 123/71 07/05/23 20:00 80 17 139/67 07/05/23 19:48 82 16 130/76 Pulse Ox O2 Del Method O2 Flow Rate 07/06/23 17:50 97 Nasal Cannula 4 07/06/23 17:40 98 Nasal Cannula 4 07/06/23 17:30 100 Nasal Cannula 4 07/06/23 17:20 98 Nasal Cannula 4 07/06/23 17:10 98 Nasal Cannula 4 07/06/23 15:25 98 Nasal Cannula 4 07/06/23 14:42 100 Nasal Cannula 2 07/06/23 12:23 Nasal Cannula 2 07/06/23 07:31 93 Nasal Cannula 3 07/06/23 04:00 98 Nasal Cannula 4 07/06/23 03:34 Nasal Cannula 4 07/06/23 03:34 98 Nasal Cannula 4 07/06/23 02:45 Nasal Cannula 4.5 07/06/23 02:33 90 Nasal Cannula 4.5 07/05/23 23:21 98 Nasal Cannula 3 07/05/23 22:52 95 Nasal Cannula 4 07/05/23 21:00 07/05/23 20:30 99 Nasal Cannula 4 07/05/23 20:00 99 Nasal Cannula 4 07/05/23 19:48 100 Nasal Cannula 4 Pain Intensity Right Foot: Pain Intensity: 4 Transfer of Care Handoff Completed per policy Notes Mental Status: alert / awake / arousable and participated in evaluation Patient Amnestic to Procedure: Yes Nausea / Vomiting: adequately controlled Pain: adequately controlled Airway Patency, RR, SpO2: stable & adequate BP & HR: stable & adequate Hydration State: stable & adequate Anesthetic Complications: no major complications apparent
[2023-07-06] MEDS: DAPTOmycin 575 MG in SYRINGE 0 ML IV SCH (21:29)
[2023-07-06] MEDS: ROSUVASTATIN CALCIUM 20 MG TAB PO SCH (21:31)
[2023-07-06] MEDS: cefTRIAXone SODIUM 2,000 MG in DEXTROSE 5 % MINI-B 50 ML IV SCH (21:31)
[2023-07-06] MEDS: MONTELUKAST SODIUM 10 MG TABLET PO SCH (21:31)
[2023-07-07] MEDS: LEVOTHYROXINE SODIUM 112 MCG TABLET PO SCH (05:16)
[2023-07-07] MEDS: HEPARIN SOD 5,000 UNIT/0.5 ML VIAL SQ SCH ×3 (05:17→20:52)
[2023-07-07] MEDS: traMADol HCL 50 MG TABLET PO PRN ×3 (05:47→21:51)
[2023-07-07 07:10] LABS: Basophils # (auto) 0.03 K/uL (0.00-0.20); Basophils % (auto) 0.5 %; Eosinophils # (auto) 0.36 K/uL (0.00-0.50); Eosinophils % (auto) 5.8 %; Hematocrit (blood only) 30.6 % (37.0-47.0); Hemoglobin 8.9 g/dl (12.0-16.0); Immature Granulocytes # (auto) 0.03 K/uL (0.01-0.20); Immature Granulocytes % (auto) 0.5 %; Lymphocytes % (auto) 19.4 %; Mean Corpuscular Hemoglobin 24.6 pg (25.0-34.0); Mean Corpuscular Hgb Conc 29.1 g/dL (32.0-36.0); Mean Corpuscular Volume 84.5 fL (80.0-100.0); Monocytes # (auto) 0.79 K/uL (0.11-0.59); Monocytes % (auto) 12.8 %; Neutrophils # (auto) 3.76 K/uL (1.40-6.50); Platelet Count 213 K/uL (130-400); RDW Coefficient of Variation 23.2 % (11.5-14.5); RDW Standard Deviation 69.7 fL (36.4-46.3); Red Blood Count 3.62 M/uL (4.20-5.40); White Blood Count 6.17 K/ul (4.8-10.8)
[2023-07-07 07:31] LABS: Albumin Globulin Ratio 0.7 (0.9-2); Albumin Level 3.1 gm/dl (3.4-5.0); BUN Creatinine Ratio 12.7 (10-20); Bilirubin,Total 1.1 mg/dl (0.2-1.0); Calcium 8.8 mg/dl (8.6-10.3); Creatinine Clr Calc Pharmacy 51.6 ml/min; Est GFR (African American) 38.8 ml/min; Est GFR (Non-African American) 33.5 ml/min; Globulin 4.5 gm/dl (2.5-4.0); Potassium 3.3 mmol/L (3.5-5.1); Total Protein 7.6 gm/dl (6.0-8.3)
[2023-07-07 08:20] LABS: Anisocytosis Present; Polychromasia 1+
[2023-07-07] MEDS ORDERED: POTASSIUM CHLORIDE CRTAB 20 MEQ TABCR PO STA (08:25)
[2023-07-07] MEDS: FUROSEMIDE 20 MG TAB PO SCH (08:40)
[2023-07-07] MEDS: MULTIVITAMIN TAB PO SCH (08:40)
[2023-07-07] MEDS: FLUTICASONE/VILANTEROL 100/25MCG 14 PUFFS/INHALER INH SCH (08:40)
[2023-07-07] MEDS: FERROUS SULFATE 325 MG TAB PO SCH (08:40)
[2023-07-07] MEDS: INSULIN ASPART PER UNIT CHARGE SC SCH ×4 (08:44→20:50)
[2023-07-07] MEDS: NYSTATIN OINT 15 GM TUBE EXT SCH ×2 (08:54→20:52)
[2023-07-07] MEDS ORDERED: LANTUS PER UNIT CHARGE SC ONE (09:00)
--- NOTE | 2023-07-07 14:32 | Hospitalist Progress Note ---
Date of Service July 07, 2023 Assessment & Plan (1) Osteomyelitis of third toe of right foot: (2) Cellulitis of right foot: (3) Chronic acquired lymphedema: (4) Pressure ulcer: (5) Acute respiratory failure with hypoxia: (6) Anemia: (7) Chronic respiratory failure: (8) CKD (chronic kidney disease): (9) Diabetes: (10) Hypokalemia: Plan A 67 yo F w/ PMHx of T2DM, osteomyelitis of r. third toe, cellulitis of r. foot, GERD, anxiety, cellulitis, unstable angina, CKD-stage 3b, CAD (s/p PCI), HTN, STEWART, AVM (GI tract), among other conditions, who presented to the emergency department with new onset swelling and erythema of her 3rd toe (r. foot) and concerns for recurrent osteomyelitis. Additionally patient had point tenderness in her r. lower back with concerns for pressure ulcers in various stages of development. 1. Recurrent osteomyelitis, 3rd toe, r. foot - Foot X-ray: "Third digit ulcer with third distal phalangeal osteomyelitis." - pt did not want MRI due to size restrictions of equipment - Patient treated w/ 6-wk course of Rocephin as outpt w/ PICC line back in November for osteomyelitis, had appt with leather case finisher for amputation sometime following completion of Abx course, but was not cleared by cardiology in pre-op appt due to significantly increased leg edema at the time. - Blood Cx pending Currently on daptomycin and ceftriaxone Patient had amputation of right third toe 07/06 2. Pressure ulcers, back - two ulcers noted in r. lower back --> one looked chronic, very deep, with probable decreased sensation, less painful; second looked like developing ulcer, more painful - wound consult placed 3. Chronic lymphedema - pt has graded pressure stocking to help manage - r. leg has become progressively worse for last few months 4. CHF - chest X-ray noted cardiomegaly w/out any acute cardiac findings - continue Furosemide 20 mg PO daily Seems to be compensated at this time 5. Anemia (chronic renal failure and iron-deficiency anemia) - Hgb 9.3 upon admission, trend CBC - continue home meds: Procrit, ferrous sulfate 6. T2DM - 120 - 160 mg/dL range; 20 correction factor; 10 carb ratio for Aspart - 5 units, BID Glargine - pharm consult put in to manage pt's T2DM 7. CKD stage III Baseline creatinine 1.3-1.9 Creatinine stable at baseline Avoid nephrotoxic medications Diabetic nephropathy 7. Hx of CAD - continue rosuvastatin, nitroglycerin as needed 8. chronic resp failure/obesity hypoventilation syndrome - continue Advair, continue levalbuterol Patient uses 4 L of oxygen at rest and 5 L on exertion chronically. 9. STEWART on CPAP - continue CPAP while in hospital 10. hypokalemia -Replete Full code DVT prophylaxis: Heparin 3 times daily Admission and Anticipated Discharge Date Admission Date: July 05, 2023 Subjective Patient feels well postsurgically. She had the surgery 07/06 Review of Systems Review of Systems: All systems reviewed & are unremarkable except as noted in Subjective Physical Exam Physical Exam: General: Awake, conversant, morbidly obese Heart: S1, S2/regular rate and rhythm, no murmur rubs or gallops Lungs: Clear to auscultation bilaterally. Normal effort Abdomen: Soft/nontender/nondistended. Obese abdomen. No hepatosplenomegaly Extremities: No clubbing/cyanosis. 1+ pitting bilateral edema. Dressing on the right foot Behavior: Appropriate, cooperative Results & Data Results & Data Vital Signs (Past 12 Hours) Vital Signs Temp Pulse Resp BP Pulse Ox O2 Del Method O2 Flow Rate 07/07/23 08:20 Nasal Cannula 4 07/07/23 07:07 36.5 C 92 H 20 118/61 92 Nasal Cannula 4 07/07/23 03:21 36.8 C 96 H 20 144/67 H 91 Nasal Cannula 4 Laboratory Results Abnormal lab results 07/06/23 07/06/23 07/06/23 Range/Units 17:12 18:17 20:34 RBC (4.20-5.40) M/uL Hgb (12.0-16.0) g/dl Hct (37.0-47.0) % MCH (25.0-34.0) pg MCHC (32.0-36.0) g/dL RDW Std Deviation (36.4-46.3) fL RDW Coeff of Cherelle (11.5-14.5) % Butts # (Auto) (0.11-0.59) K/uL Potassium (3.5-5.1) mmol/L Creatinine (0.6-1.2) mg/dl Glucose (70-99(Fasting)) mg/dl POC Glucose 163 H 173 H 172 H (70-99) mg/dl Total Bilirubin (0.2-1.0) mg/dl ALT (7-52) U/L Albumin (3.4-5.0) gm/dl Globulin (2.5-4.0) gm/dl Albumin/Globulin Ratio (0.9-2) 07/06/23 07/07/23 07/07/23 Range/Units 23:29 04:32 06:43 RBC 3.62 L (4.20-5.40) M/uL Hgb 8.9 L (12.0-16.0) g/dl Hct 30.6 L (37.0-47.0) % MCH 24.6 L (25.0-34.0) pg MCHC 29.1 L (32.0-36.0) g/dL RDW Std Deviation 69.7 H (36.4-46.3) fL RDW Coeff of Cherelle 23.2 H (11.5-14.5) % Butts # (Auto) 0.79 H (0.11-0.59) K/uL Potassium 3.3 L (3.5-5.1) mmol/L Creatinine 1.58 H (0.6-1.2) mg/dl Glucose 121 H (70-99(Fasting)) mg/dl POC Glucose 130 H 112 H (70-99) mg/dl Total Bilirubin 1.1 H (0.2-1.0) mg/dl ALT 6 L (7-52) U/L Albumin 3.1 L (3.4-5.0) gm/dl Globulin 4.5 H (2.5-4.0) gm/dl Albumin/Globulin Ratio 0.7 L (0.9-2) 07/07/23 07/07/23 Range/Units 07:47 11:34 RBC (4.20-5.40) M/uL Hgb (12.0-16.0) g/dl Hct (37.0-47.0) % MCH (25.0-34.0) pg MCHC (32.0-36.0) g/dL RDW Std Deviation (36.4-46.3) fL RDW Coeff of Cherelle (11.5-14.5) % Butts # (Auto) (0.11-0.59) K/uL Potassium (3.5-5.1) mmol/L Creatinine (0.6-1.2) mg/dl Glucose (70-99(Fasting)) mg/dl POC Glucose 122 H 133 H (70-99) mg/dl Total Bilirubin (0.2-1.0) mg/dl ALT (7-52) U/L Albumin (3.4-5.0) gm/dl Globulin (2.5-4.0) gm/dl Albumin/Globulin Ratio (0.9-2) PG Care Time/CCT Total # of Minutes Spent Total Time Spent with Patient: Total time spent is greater than 50% in coordination of care (as documented) at patient's floor/unit and/or counseling patient: Coding Level of Care Code 39502 SUB INP/OBS CARE 2/35MIN Diagnoses Osteomyelitis of third toe of right foot M86.9 Cellulitis of right foot L03.115 Chronic acquired lymphedema I89.0 Pressure ulcer L89.90 Acute respiratory failure with hypoxia J96.01 Anemia, unspecified type D64.9 Chronic respiratory failure J96.10 CKD (chronic kidney disease) N18.9 Type 2 diabetes mellitus without complication, with long-term current use of insulin E11.9; Z79.4 Diabetes mellitus complication status: without complication Diabetes mellitus longterm insulin use: with longterm use Diabetes mellitus type: type 2 Hypokalemia E87.6 (9) Diabetes Diabetes mellitus complication status: without complication 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
--- NOTE | 2023-07-07 16:40 | Orthopedic Progress Note ---
Date of Service July 07, 2023 Assessment & Plan (1) Chronic osteomyelitis with draining sinus, right ankle and foot: Plan: Postoperative day #1 status post Right foot third toe amputation. Partial weightbearing right foot in postoperative shoe and soft dressing. Plan for dressing change right foot tomorrow. Continue IV antibiotics per medical service. Thank you for the opportunity to consult in the care of this patient. Cameron Mayer [facility] [phone] (2) Skin ulcer of third toe of right foot with necrosis of bone: (3) Type 2 diabetes mellitus with foot ulcer: (4) Type 2 diabetes mellitus with polyneuropathy: Admission and Anticipated Discharge Date Admission Date: July 05, 2023 Subjective Patient seen on rounds. Patient is awake and alert. Has discomfort related to the right foot third toe amputation site. No fever, chills, shortness of breath or chest pain. Physical Exam Constitutional: WD/WN, vitals as above Eyes: PERRL, conjunctivae normal, anicteric sclerae ENMT: external ear and nose normal, oropharynx normal Neck: trachea midline, no thyromegaly Respiratory: normal respiratory effort, lungs clear to auscultation Gastrointestinal (Abdomen): Abdomen is soft, nontender and nondistended. Bowel sounds present. Musculoskeletal: Focused examination right lower extremity demonstrates postoperative dressing right foot. Dressing is clean, dry and intact without strikethrough. Soft. Mild tenderness at the amputation site of the third toe right foot. Homans sign negative. Skin: Stasis changes bilateral lower extremities. Chronic lymphedema bilateral. No erythema, ulcers or rashes. Neurologic: PERRL, EOMI, accommodation nl, no face palsy, no dysarthria Psychiatric: A+Ox3, euthymic affect Results & Data Vital Signs (Past 12 Hours) Vital Signs Temp Pulse Resp BP BP Pulse Ox O2 Del Method 07/07/23 15:22 36.5 C 83 18 119/73 94 Nasal Cannula 07/07/23 08:20 Nasal Cannula 07/07/23 07:07 36.5 C 92 H 20 118/61 92 Nasal Cannula O2 Flow Rate 07/07/23 15:22 4 07/07/23 08:20 4 07/07/23 07:07 4 Laboratory Results Reviewed
[2023-07-07] MEDS: DAPTOmycin 575 MG in SYRINGE 0 ML IV SCH (19:33)
[2023-07-07] MEDS: LANTUS PER UNIT CHARGE SC SCH (20:49)
[2023-07-07] MEDS: ROSUVASTATIN CALCIUM 20 MG TAB PO SCH (20:52)
[2023-07-07] MEDS: MONTELUKAST SODIUM 10 MG TABLET PO SCH (20:52)
[2023-07-07] MEDS: cefTRIAXone SODIUM 2,000 MG in DEXTROSE 5 % MINI-B 50 ML IV SCH (21:51)
[2023-07-08] MEDS: HEPARIN SOD 5,000 UNIT/0.5 ML VIAL SQ SCH ×3 (05:43→22:00)
[2023-07-08] MEDS ORDERED: LEVOTHYROXINE SODIUM 112 MCG TABLET PO SCH (06:30)
[2023-07-08] MEDS: MULTIVITAMIN TAB PO SCH (07:59)
[2023-07-08] MEDS: FUROSEMIDE 20 MG TAB PO SCH (07:59)
[2023-07-08] MEDS: FERROUS SULFATE 325 MG TAB PO SCH (08:00)
[2023-07-08] MEDS: FLUTICASONE/VILANTEROL 100/25MCG 14 PUFFS/INHALER INH SCH (08:00)
[2023-07-08] MEDS: NYSTATIN OINT 15 GM TUBE EXT SCH ×2 (08:01→20:27)
[2023-07-08] MEDS: INSULIN ASPART PER UNIT CHARGE SC SCH ×4 (08:32→20:25)
[2023-07-08] MEDS: LANTUS PER UNIT CHARGE SC SCH ×2 (08:35→20:24)
[2023-07-08 09:28] LABS: Hematocrit (blood only) 30.6 % (37.0-47.0); Hemoglobin 9.2 g/dl (12.0-16.0); Mean Corpuscular Hemoglobin 24.9 pg (25.0-34.0); Mean Corpuscular Hgb Conc 30.1 g/dL (32.0-36.0); Mean Corpuscular Volume 82.7 fL (80.0-100.0); Mean Platelet Volume 10.6 fL (9.4-12.4); Platelet Count 206 K/uL (130-400); RDW Standard Deviation 67.5 fL (36.4-46.3); White Blood Count 7.13 K/ul (4.8-10.8)
[2023-07-08 09:38] LABS: BUN Creatinine Ratio 13.8 (10-20); Calcium 8.9 mg/dl (8.6-10.3); Creatinine Clr Calc Pharmacy 51.3 ml/min; Est GFR (African American) 38.5 ml/min; Est GFR (Non-African American) 33.3 ml/min; Potassium 3.9 mmol/L (3.5-5.1)
[2023-07-08] MEDS: traMADol HCL 50 MG TABLET PO PRN ×2 (13:22→20:26)
--- NOTE | 2023-07-08 13:57 | Hospitalist Progress Note ---
Date of Service July 08, 2023 Assessment & Plan (1) Osteomyelitis of third toe of right foot: (2) Cellulitis of right foot: (3) Chronic acquired lymphedema: (4) Pressure ulcer: (5) Acute respiratory failure with hypoxia: (6) Anemia: (7) Chronic respiratory failure: (8) CKD (chronic kidney disease): (9) Diabetes: (10) Hypokalemia: Plan A 67 yo F w/ PMHx of T2DM, osteomyelitis of r. third toe, cellulitis of r. foot, GERD, anxiety, cellulitis, unstable angina, CKD-stage 3b, CAD (s/p PCI), HTN, STEWART, AVM (GI tract), among other conditions, who presented to the emergency department with new onset swelling and erythema of her 3rd toe (r. foot) and concerns for recurrent osteomyelitis. Additionally patient had point tenderness in her r. lower back with concerns for pressure ulcers in various stages of development. 1. Recurrent osteomyelitis, 3rd toe, r. foot - Foot X-ray: "Third digit ulcer with third distal phalangeal osteomyelitis." - pt did not want MRI due to size restrictions of equipment - Patient treated w/ 6-wk course of Rocephin as outpt w/ PICC line back in November for osteomyelitis, had appt with hand potter for amputation sometime following completion of Abx course, but was not cleared by cardiology in pre-op appt due to significantly increased leg edema at the time. - Blood Cx negative Currently on daptomycin and ceftriaxone. Planning to discontinue soon, now that source has been removed. Patient had amputation of right third toe 07/06 discharge with a Mcfadden catheter in place since the patient is worried about wound being constantly wet from urine trickling down. 2. Pressure ulcers, back - two ulcers noted in r. lower back --> one looked chronic, very deep, with probable decreased sensation, less painful; second looked like developing ulcer, more painful - wound consult placed 3. Chronic lymphedema - pt has graded pressure stocking to help manage - r. leg has become progressively worse for last few months 4. CHF - chest X-ray noted cardiomegaly w/out any acute cardiac findings - continue Furosemide 20 mg PO daily Seems to be compensated at this time 5. Anemia (chronic renal failure and iron-deficiency anemia) - Hgb 9.3 upon admission, stable - continue home meds: Procrit, ferrous sulfate 6. T2DM - 120 - 160 mg/dL range; 20 correction factor; 10 carb ratio for Aspart - 5 units, BID Glargine - pharm consult put in to manage pt's T2DM 7. CKD stage III Baseline creatinine 1.3-1.9 Creatinine stable at baseline Avoid nephrotoxic medications Diabetic nephropathy 7. Hx of CAD - continue rosuvastatin, nitroglycerin as needed 8. chronic resp failure/obesity hypoventilation syndrome - continue Advair, continue levalbuterol Patient uses 4 L of oxygen at rest and 5 L on exertion chronically. 9. STEWART on CPAP - continue CPAP while in hospital 10. hypokalemia -Repleted Full code DVT prophylaxis: Heparin 3 times daily Admission and Anticipated Discharge Date Admission Date: July 05, 2023 Subjective Patient feels well. Denies any chest pain or shortness of breath. She is requesting to be discharged with a Mcfadden catheter in place. She tells me that because of her obesity, when she sits on the bedside commode, the urine pools between her thigh and lower belly and then starts trickling down her leg. She is status post right third toe amputation and does not want that wound to get infected from constantly being wet from urine. Review of Systems Review of Systems: All systems reviewed & are unremarkable except as noted in Subjective Physical Exam Physical Exam: General: Awake, conversant, morbidly obese Heart: S1, S2/regular rate and rhythm, no murmur rubs or gallops Lungs: Clear to auscultation bilaterally. Normal effort Abdomen: Soft/nontender/nondistended. Obese abdomen. No hepatosplenomegaly Extremities: No clubbing/cyanosis. 1+ pitting bilateral edema. Dressing on the right foot Behavior: Appropriate, cooperative Results & Data Results & Data Vital Signs (Past 12 Hours) Vital Signs Temp Pulse Resp BP Pulse Ox O2 Del Method O2 Flow Rate 07/08/23 08:29 Nasal Cannula 4 07/08/23 07:51 36.6 C 85 18 128/84 94 Nasal Cannula 4 Laboratory Results Abnormal lab results 07/07/23 07/07/23 07/08/23 Range/Units 16:39 20:27 07:47 RBC (4.20-5.40) M/uL Hgb (12.0-16.0) g/dl Hct (37.0-47.0) % MCH (25.0-34.0) pg MCHC (32.0-36.0) g/dL RDW Std Deviation (36.4-46.3) fL RDW Coeff of Cherelle (11.5-14.5) % Sodium (136-145) mmol/L Creatinine (0.6-1.2) mg/dl Glucose (70-99(Fasting)) mg/dl POC Glucose 123 H 125 H 116 H (70-99) mg/dl 07/08/23 07/08/23 Range/Units 08:57 11:34 RBC 3.70 L (4.20-5.40) M/uL Hgb 9.2 L (12.0-16.0) g/dl Hct 30.6 L (37.0-47.0) % MCH 24.9 L (25.0-34.0) pg MCHC 30.1 L (32.0-36.0) g/dL RDW Std Deviation 67.5 H (36.4-46.3) fL RDW Coeff of Cherelle 23.0 H (11.5-14.5) % Sodium 135 L (136-145) mmol/L Creatinine 1.59 H (0.6-1.2) mg/dl Glucose 131 H (70-99(Fasting)) mg/dl POC Glucose 144 H (70-99) mg/dl PG Care Time/CCT Total # of Minutes Spent Total Time Spent with Patient: Total time spent is greater than 50% in coordination of care (as documented) at patient's floor/unit and/or counseling patient: Coding Level of Care Code 19971 SUB INP/OBS CARE 2/35MIN Diagnoses Osteomyelitis of third toe of right foot M86.9 Cellulitis of right foot L03.115 Chronic acquired lymphedema I89.0 Pressure ulcer L89.90 Acute respiratory failure with hypoxia J96.01 Anemia, unspecified type D64.9 Chronic respiratory failure J96.10 CKD (chronic kidney disease) N18.9 Type 2 diabetes mellitus without complication, with long-term current use of insulin E11.9; Z79.4 Diabetes mellitus complication status: without complication Diabetes mellitus assisted insulin use: with terminal worker use Diabetes mellitus type: type 2 Hypokalemia E87.6 (9) Diabetes Diabetes mellitus complication status: without complication Diabetes mellitus terminal worker insulin use: with assisted use Diabetes mellitus type: type 2 Qualified Code(s): E11.9 - Type 2 diabetes mellitus without complications; Z79.4 - long term acute care registered nurse (current) use of insulin
[2023-07-08] MEDS: DAPTOmycin 575 MG in SYRINGE 0 ML IV SCH (19:39)
[2023-07-08] MEDS: ROSUVASTATIN CALCIUM 20 MG TAB PO SCH (20:27)
[2023-07-08] MEDS: MONTELUKAST SODIUM 10 MG TABLET PO SCH (20:27)
--- NOTE | 2023-07-08 21:43 | Orthopedic Progress Note ---
Date of Service July 08, 2023 Assessment & Plan (1) Chronic osteomyelitis with draining sinus, right ankle and foot: Plan: Postoperative day #2 status post Right foot third toe amputation. Partial weightbearing right foot in postoperative shoe and soft dressing. Minimize weightbearing right forefoot. Plan for dressing change right foot by nursing Continue IV antibiotics per medical service. Stable for discharge from orthopedic perspective. Follow-up with Dr. Mayer 2 to 3 weeks after discharge. Thank you for the opportunity to consult in the care of this patient. Cameron Mayer DO [facility] [place] [phone] (2) Skin ulcer of third toe of right foot with necrosis of bone: (3) Type 2 diabetes mellitus with foot ulcer: (4) Type 2 diabetes mellitus with polyneuropathy: Admission and Anticipated Discharge Date Admission Date: July 05, 2023 Subjective Patient seen and examined on rounds. States that pain has improved significantly foot. No fevers or chills, chest pain or shortness of breath. States that she was able to get up with the postoperative shoe and pivot to bedside commode. Physical Exam Constitutional: WD/WN, vitals as above Eyes: PERRL, conjunctivae normal, anicteric sclerae ENMT: external ear and nose normal, oropharynx normal Neck: trachea midline, no thyromegaly Respiratory: normal respiratory effort, lungs clear to auscultation Gastrointestinal (Abdomen): Abdomen is soft. Sounds present. No guarding rigidity. Abdomen is obese Musculoskeletal: Stone is clean, dry and intact. No strikethrough. Decreased tenderness to palpation over third toe amputation site which is an improvement compared to yesterday. Compartments are soft. Profound lymphedema persists in bilateral lower extremities. Chronic venous stasis changes bilateral lower extremities. Homans negative. Neurologic: PERRL, EOMI, accommodation nl, no face palsy, no dysarthria Psychiatric: A+Ox3, euthymic affect Results & Data Vital Signs (Past 12 Hours) Vital Signs Temp Pulse Resp BP Pulse Ox O2 Del Method O2 Flow Rate 07/08/23 19:47 36.6 C 90 16 122/61 92 Nasal Cannula 4 07/08/23 15:34 36.4 C L 85 18 143/82 H 93 Nasal Cannula 4 Laboratory Results Reviewed
[2023-07-08] MEDS: cefTRIAXone SODIUM 2,000 MG in DEXTROSE 5 % MINI-B 50 ML IV SCH (22:00)
[2023-07-09] MEDS: LEVOTHYROXINE SODIUM 112 MCG TABLET PO SCH (05:38)
[2023-07-09] MEDS: HEPARIN SOD 5,000 UNIT/0.5 ML VIAL SQ SCH ×3 (05:38→20:55)
[2023-07-09 06:21] LABS: Hematocrit (blood only) 32.4 % (37.0-47.0); Hemoglobin 9.5 g/dl (12.0-16.0); Mean Corpuscular Hemoglobin 24.7 pg (25.0-34.0); Mean Corpuscular Hgb Conc 29.3 g/dL (32.0-36.0); Mean Corpuscular Volume 84.2 fL (80.0-100.0); Mean Platelet Volume 10.4 fL (9.4-12.4); Platelet Count 216 K/uL (130-400); RDW Coefficient of Variation 23.5 % (11.5-14.5); RDW Standard Deviation 69.7 fL (36.4-46.3); Red Blood Count 3.85 M/uL (4.20-5.40); White Blood Count 7.88 K/ul (4.8-10.8)
[2023-07-09 06:38] LABS: BUN Creatinine Ratio 14.7 (10-20); Calcium 8.6 mg/dl (8.6-10.3); Creatinine Clr Calc Pharmacy 42.7 ml/min; Est GFR (African American) 30.9 ml/min; Est GFR (Non-African American) 26.6 ml/min; Potassium 3.7 mmol/L (3.5-5.1)
[2023-07-09] MEDS: traMADol HCL 50 MG TABLET PO PRN ×3 (07:48→21:01)
[2023-07-09] MEDS: NYSTATIN OINT 15 GM TUBE EXT SCH ×2 (07:49→20:55)
[2023-07-09] MEDS: FERROUS SULFATE 325 MG TAB PO SCH (07:49)
[2023-07-09] MEDS: MULTIVITAMIN TAB PO SCH (07:49)
[2023-07-09] MEDS: FLUTICASONE/VILANTEROL 100/25MCG 14 PUFFS/INHALER INH SCH (07:49)
[2023-07-09] MEDS: FUROSEMIDE 20 MG TAB PO SCH (07:49)
[2023-07-09] MEDS: INSULIN ASPART PER UNIT CHARGE SC SCH ×5 (08:30→21:00)
[2023-07-09] MEDS: LANTUS PER UNIT CHARGE SC SCH ×2 (08:30→21:00)
--- NOTE | 2023-07-09 09:59 | Pharmacy Report ---
Pharmacy Glycemic Short Note 2 - Date of Service July 09, 2023 - Glycemic Short BSG Results (Last 24 hours): 07/08/23 07/08/23 07/08/23 11:34 16:39 19:56 Glucose POC Glucose 144 H 166 H 159 H 07/09/23 07/09/23 05:43 07:35 Glucose 138 H POC Glucose 141 H OUTPATIENT ANTIDIABETIC REGIMEN: * Humulin R U-500: 50 units SQ with breakfast and lunch * HbA1c: 7.6% (03/27/23) ASSESSMENT: 07/09 * BSGs well controlled over last 24 hours; 51 units SQ insulin given while tolerating a diet * Fasting BSG 138-141 this AM with 30 units basal on board; will continue * Post-prandial BSGs at goal 3 of 3 yesterday; will continue 07/06 * Pt is a 67 year old female known to the glycemic service admitted with osteomyelitis of the toe. History of DM2 on U-500 at home. Pharmacy consulted to assist with glycemic management while inpatient. * BSGs 18-00-304-206-228mg/dL since admission. No evening insulin yesterday. * Currently NPO and receiving IV antibiotics. * Given NPO status all day today, and relatively low dose of outpatient insulin for U-500, will continue reduced dose Lantus for now (versus switching to NPH) in order to prevent low BSGs. Scaled dose at dinner depending on BSG. Novolog ACHS based upon home dose given BSGs in 200s today. PLAN FOR INPATIENT GLYCEMIC CONTROL: * Basal insulin * Lantus 15 units BID * Bolus insulin * NovoLog per scale ACHS or Q6hrs while NPO * Goal Range: Low 110 mg/dL - High 140 mg/dL * Correction Factor: 15 mg/dL/unit * Nutritional / Prandial insulin per carb ratio of 1 unit per 6 grams CHO consumed
--- NOTE | 2023-07-09 14:53 | Hospitalist Progress Note ---
Date of Service July 09, 2023 Assessment & Plan (1) Osteomyelitis of third toe of right foot: (2) Cellulitis of right foot: (3) Chronic acquired lymphedema: (4) Pressure ulcer: (5) Acute respiratory failure with hypoxia: (6) Anemia: (7) Chronic respiratory failure: (8) CKD (chronic kidney disease): (9) Diabetes: (10) Hypokalemia: Plan A 67 yo F w/ PMHx of T2DM, osteomyelitis of r. third toe, cellulitis of r. foot, GERD, anxiety, cellulitis, unstable angina, CKD-stage 3b, CAD (s/p PCI), HTN, STEWART, AVM (GI tract), among other conditions, who presented to the emergency department with new onset swelling and erythema of her 3rd toe (r. foot) and concerns for recurrent osteomyelitis. Additionally patient had point tenderness in her r. lower back with concerns for pressure ulcers in various stages of development. 1. Recurrent osteomyelitis, 3rd toe, r. foot - Foot X-ray: "Third digit ulcer with third distal phalangeal osteomyelitis." - pt did not want MRI due to size restrictions of equipment - Patient treated w/ 6-wk course of Rocephin as outpt w/ PICC line back in November for osteomyelitis, had appt with health communications specialist for amputation sometime following completion of Abx course, but was not cleared by cardiology in pre-op appt due to significantly increased leg edema at the time. - Blood Cx negative Discontinue daptomycin and ceftriaxone today. Patient had amputation of right third toe 07/06 discharge with a Mcfadden catheter in place since the patient is worried about wound being constantly wet from urine trickling down. 2. Pressure ulcers, back - two ulcers noted in r. lower back --> one looked chronic, very deep, with probable decreased sensation, less painful; second looked like developing ulcer, more painful - wound consult placed 3. Chronic lymphedema - pt has graded pressure stocking to help manage - r. leg has become progressively worse for last few months 4. CHF - chest X-ray noted cardiomegaly w/out any acute cardiac findings - continue Furosemide 20 mg PO daily Seems to be compensated at this time 5. Anemia (chronic renal failure and iron-deficiency anemia) - Hgb 9.3 upon admission, stable - continue home meds: Procrit, ferrous sulfate 6. T2DM - 120 - 160 mg/dL range; 20 correction factor; 10 carb ratio for Aspart - 5 units, BID Glargine - pharm consult put in to manage pt's T2DM 7. CKD stage III Baseline creatinine 1.3-1.9 Creatinine today slightly elevated at 1.9. Trend creatinine Avoid nephrotoxic medications Diabetic nephropathy 7. Hx of CAD - continue rosuvastatin, nitroglycerin as needed 8. chronic resp failure/obesity hypoventilation syndrome - continue Advair, continue levalbuterol Patient uses 4 L of oxygen at rest and 5 L on exertion chronically. 9. STEWART on CPAP - continue CPAP while in hospital 10. hypokalemia -Repleted Full code DVT prophylaxis: Heparin 3 times daily Likely discharge to home with home health tomorrow provided creatinine stable Admission and Anticipated Discharge Date Admission Date: July 05, 2023 Subjective Patient feels well. Denies chest pain or shortness of breath Review of Systems Review of Systems: All systems reviewed & are unremarkable except as noted in Subjective Physical Exam Physical Exam: General: Awake, conversant, morbidly obese Heart: S1, S2/regular rate and rhythm, no murmur rubs or gallops Lungs: Clear to auscultation bilaterally. Normal effort Abdomen: Soft/nontender/nondistended. Obese abdomen. No hepatosplenomegaly Extremities: No clubbing/cyanosis. 1+ pitting bilateral edema. Dressing on the right foot Behavior: Appropriate, cooperative Results & Data Results & Data Vital Signs (Past 12 Hours) Vital Signs Temp Pulse Resp BP Pulse Ox O2 Del Method O2 Flow Rate 07/09/23 09:04 Nasal Cannula 4 07/09/23 07:20 36.5 C 89 16 129/79 94 Nasal Cannula Laboratory Results Abnormal lab results 07/08/23 07/08/23 07/09/23 Range/Units 16:39 19:56 05:43 RBC 3.85 L (4.20-5.40) M/uL Hgb 9.5 L (12.0-16.0) g/dl Hct 32.4 L (37.0-47.0) % MCH 24.7 L (25.0-34.0) pg MCHC 29.3 L (32.0-36.0) g/dL RDW Std Deviation 69.7 H (36.4-46.3) fL RDW Coeff of Cherelle 23.5 H (11.5-14.5) % Sodium 135 L (136-145) mmol/L BUN 28 H (6-23) mg/dl Creatinine 1.91 H D (0.6-1.2) mg/dl Glucose 138 H (70-99(Fasting)) mg/dl POC Glucose 166 H 159 H (70-99) mg/dl 07/09/23 07/09/23 Range/Units 07:35 11:43 RBC (4.20-5.40) M/uL Hgb (12.0-16.0) g/dl Hct (37.0-47.0) % MCH (25.0-34.0) pg MCHC (32.0-36.0) g/dL RDW Std Deviation (36.4-46.3) fL RDW Coeff of Cherelle (11.5-14.5) % Sodium (136-145) mmol/L BUN (6-23) mg/dl Creatinine (0.6-1.2) mg/dl Glucose (70-99(Fasting)) mg/dl POC Glucose 141 H 192 H (70-99) mg/dl PG Care Time/CCT Total # of Minutes Spent Total Time Spent with Patient: Total time spent is greater than 50% in coordination of care (as documented) at patient's floor/unit and/or counseling patient: Coding Level of Care Code 88542 SUB INP/OBS CARE 235MIN Diagnoses Osteomyelitis of third toe of right foot M86.9 Cellulitis of right foot L03.115 Chronic acquired lymphedema I89.0 Pressure ulcer L89.90 Acute respiratory failure with hypoxia J96.01 Anemia, unspecified type D64.9 Chronic respiratory failure J96.10 CKD (chronic kidney disease) N18.9 Type 2 diabetes mellitus without complication, with long-term current use of insulin E11.9; Z79.4 Diabetes mellitus complication status: without complication 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
[2023-07-09] MEDS: MONTELUKAST SODIUM 10 MG TABLET PO SCH (20:55)
[2023-07-09] MEDS: ROSUVASTATIN CALCIUM 20 MG TAB PO SCH (20:55)
[2023-07-10] MEDS: LEVOTHYROXINE SODIUM 112 MCG TABLET PO SCH (06:01)
[2023-07-10] MEDS: HEPARIN SOD 5,000 UNIT/0.5 ML VIAL SQ SCH ×2 (06:01→13:29)
[2023-07-10 07:16] LABS: Hematocrit (blood only) 30.8 % (37.0-47.0); Hemoglobin 9.3 g/dl (12.0-16.0); Mean Corpuscular Hemoglobin 24.5 pg (25.0-34.0); Mean Corpuscular Hgb Conc 30.2 g/dL (32.0-36.0); Mean Corpuscular Volume 81.3 fL (80.0-100.0); Mean Platelet Volume 10.3 fL (9.4-12.4); Platelet Count 201 K/uL (130-400); RDW Coefficient of Variation 23.2 % (11.5-14.5); RDW Standard Deviation 67.2 fL (36.4-46.3); Red Blood Count 3.79 M/uL (4.20-5.40)
[2023-07-10 07:49] LABS: BUN Creatinine Ratio 17.9 (10-20); Calcium 8.5 mg/dl (8.6-10.3); Creatinine Clr Calc Pharmacy 42.9 ml/min; Est GFR (African American) 31.1 ml/min; Est GFR (Non-African American) 26.8 ml/min; Potassium 3.7 mmol/L (3.5-5.1)
[2023-07-10] MEDS: FUROSEMIDE 20 MG TAB PO SCH (08:21)
[2023-07-10] MEDS: FLUTICASONE/VILANTEROL 100/25MCG 14 PUFFS/INHALER INH SCH (08:21)
[2023-07-10] MEDS: NYSTATIN OINT 15 GM TUBE EXT SCH (08:22)
[2023-07-10] MEDS: FERROUS SULFATE 325 MG TAB PO SCH (08:23)
[2023-07-10] MEDS: MULTIVITAMIN TAB PO SCH (08:23)
[2023-07-10] MEDS: INSULIN ASPART PER UNIT CHARGE SC SCH ×2 (08:46→12:05)
[2023-07-10] MEDS: LANTUS PER UNIT CHARGE SC SCH (08:46)
--- NOTE | 2023-07-10 13:29 | Discharge Summary ---
Date of Service July 10, 2023 Admission HPI Per Admitting Provider A 67 yo F w/ PMHx of T2DM, osteomyelitis of r. third toe, cellulitis of r. foot, GERD, anxiety, cellulitis, unstable angina, CKD-stage 3b, CAD (s/p PCI), HTN, STEWART, presented to the emergency department via ambulance for evaluation of "my middle toe" the patient states that she woke up today and noticed that the right middle toe was red and swollen, felt pain. This is a new finding, despite her known history of osteomyelitis in this toe. The patient was scheduled for an amputation about a month ago but was not cleared by cardiology to receive the surgery, as she had increasing edema and needed to have her Lasix doubled for 3 days. The edema seemed to improve, but her surgery was never rescheduled. The patient states she contacted her financial internship today and was told to call 911 to "find out what is going on". The patient states that she has not had a fever or chills. No nausea or vomiting. No body aches. She has not been currently taking any medication for her osteomyelitis. She was on 6 weeks of IV Rocephin through PICC line after her admission in November earlier this year. Last dose of antibiotics was in December or January. She states she has not had problems with the toe since that time, but is concerned about the redness and swelling. The patient also has tenderness in the right heel, where an ulcer appears to be developing, and in her right lower back, where there appears to be an older ulcer and a newly developing ulcer. consult wound care, consult Admission Exam Per Admitting Provider Constitutional: + morbidly obese, + physical limitations (problems with mobility) and cooperative Respiratory: + labored breathing (without oxygen, pt' s breathing becomes more labored) and able to speak in complete sentences (when in O2, able to talk w/out getting winded) Auscultation: no crackles and no wheezes Cardiovascular: Rate/Rhythm: regular rate and regular rhythm Heart Sounds: + murmur Extremities: + pedal edema and + edema (patient's abdomen very edematous also) Gastrointestinal (Abdomen): Percussion/Palpation: abdomen nontender Musculoskeletal: patient w/ decreased core strength, unable to roll over, sit up, etc w/out help from nursing staff or caregiver Skin: + ulcer (2 ulcers on r. lower back: one old ulcer, one newly developing ulcer), + wound and + erythema Psychiatric: A+Ox3, euthymic affect Genitourinary: no CVA tenderness Lymphatic: + lymphedema (b/l in LEs, significantly worse in r. leg) Principal Diagnosis Right third toe osteomyelitis status post amputation Right foot cellulitis, treated Discharge Exam General: Awake, conversant, morbidly obese Heart: S1, S2/regular rate and rhythm, no murmur rubs or gallops Lungs: Clear to auscultation bilaterally. Normal effort Abdomen: Soft/nontender/nondistended. Obese abdomen. No hepatosplenomegaly. Mcfadden catheter in place. Extremities: No clubbing/cyanosis. 1+ pitting bilateral edema. Dressing on the right foot Behavior: Appropriate, cooperative Discharge Data Allergies Allergy/AdvReac Type Severity Reaction Status Date / Time Iodinated Contrast Media Allergy Severe Hives and Verified 07/05/23 19:15 kidney complications iodine Allergy Severe Hives and Verified 07/05/23 19:15 kidney complications shellfish derived Allergy Severe Anaphylaxis Verified 07/05/23 19:15 /Hives sulfite Allergy Severe HIVES AND Verified 07/05/23 19:15 THROAT CLOSES Consultations 07/05/23 20:16 ED Decision to Admit Stat 07/05/23 22:36 Consult Podiatry Stat 07/06/23 05:51 Consult Cardiology Routine 07/10/23 09:03 Consult [facility] welfare adviser Routine Procedures Performed Operation Date: 07/06/23 11:10 Actual Procedures p Right Foot 3rd Toe Amputation(Right) - Cameron Mayer DO Hospital Course (1) Osteomyelitis of third toe of right foot: (2) Cellulitis of right foot: (3) Chronic acquired lymphedema: (4) Pressure ulcer: (5) Acute respiratory failure with hypoxia: (6) Anemia: (7) Chronic respiratory failure: (8) CKD (chronic kidney disease): (9) Diabetes: (10) Hypokalemia: Plan A 67 yo F w/ PMHx of T2DM, osteomyelitis of r. third toe, cellulitis of r. foot, GERD, anxiety, cellulitis, unstable angina, CKD-stage 3b, CAD (s/p PCI), HTN, STEWART, AVM (GI tract), among other conditions, who presented to the emergency department with new onset swelling and erythema of her 3rd toe (r. foot) and concerns for recurrent osteomyelitis. Additionally patient had point tenderness in her r. lower back with concerns for pressure ulcers in various stages of development. 1. Recurrent osteomyelitis, 3rd toe, r. foot - Foot X-ray: "Third digit ulcer with third distal phalangeal osteomyelitis." - pt did not want MRI due to size restrictions of equipment - Patient treated w/ 6-wk course of Rocephin as outpt w/ PICC line back in November for osteomyelitis, had appt with financial internship for amputation sometime following completion of Abx course, but was not cleared by cardiology in pre-op appt due to significantly increased leg edema at the time. - Blood Cx negative Discontinue daptomycin and ceftriaxone after 3 days of treatment post amputation. Patient had amputation of right third toe 07/06 Will discharge with a Mcfadden catheter in place since the patient is worried about wound being constantly wet from urine trickling down. She will follow-up with her PCP who will decide on removal of Mcfadden catheter. She has been advised to follow-up with her PCP in 1 week and with the orthopedic surgeon in 2 to 3 weeks. 2. Pressure ulcers, back - two ulcers noted in r. lower back --> one looked chronic, very deep, with probable decreased sensation, less painful; second looked like developing ulcer, more painful - wound consult placed 3. Chronic lymphedema - pt has graded pressure stocking to help manage - r. leg has become progressively worse for last few months 4. CHF - chest X-ray noted cardiomegaly w/out any acute cardiac findings - continue Furosemide 20 mg PO daily Seems to be compensated at this time 5. Anemia (chronic renal failure and iron-deficiency anemia) - Hgb 9.3 upon admission, stable - continue home meds: Procrit, ferrous sulfate 6. T2DM - 120 - 160 mg/dL range; 20 correction factor; 10 carb ratio for Aspart Resume home medications 7. CKD stage III Baseline creatinine 1.3-1.9 Creatinine stable at baseline Avoid nephrotoxic medications Diabetic nephropathy 7. Hx of CAD - continue rosuvastatin, nitroglycerin as needed 8. chronic resp failure/obesity hypoventilation syndrome - continue Advair, continue levalbuterol Patient uses 4 L of oxygen at rest and 5 L on exertion chronically. 9. STEWART on CPAP - continue CPAP while in hospital 10. hypokalemia -Repleted Full code DVT prophylaxis: Heparin 3 times daily Discharge home today Total Time Total Time Spent Total Time Spent (In Minutes): 35 Discharge Plan Discharge Items Patient Disposition: Home - Home Health Services Reason For Visit: OSTEOMYELITIS, 3RD TOE, RT FOOT Discharge Diagnosis: Right third toe osteomyelitis status post amputation Right foot cellulitis, treated Activity: Resume your previous activity Non-emergency contact: Primary Care Provider Call non-emergency contact if: you have any medication questions and your symptoms worsen Follow-up/Referrals: Cameron Mayer DO [Surgeon] - Melissa Camilo PA-C [Primary Care Provider] - 07/18/23 3:50 pm Diet: Carb Consistent or DM2, Heart Healthy and Low Sodium (2gm) Addtl Attending Provider Instructions: Advised to follow-up with PCP in 1 week Advised to follow-up with Dr. Mayer in 2 to 3 weeks Advised to note that you are being discharged with a Mcfadden catheter in place to allow wound healing of the right foot. This will stay in place for about a week until you see your PCP. Your PCP will then decide the next course of action with a Mcfadden catheter. Pending Studies at Discharge: No Stand-Alone Forms: My [facility] Next Glass Medications and DC Order Prescriptions: Continued levalbuterol HCl 0.63 mg/3 mL solution for nebulization 0.63 mg inhalation TID PRN (Reason: shortness of breath or wheezing) Qty: 270 3RF (DME) BiPap Machine Misc See Rx Instructions .Route Qty: 1 0RF Rx Instructions: Max IPAP 14-Max pressure support 5,Min EPAP 6 Min Pressure support 5,AmeriGel-FullFaceMask -small nitroglycerin 0.4 mg tablet, sublingual 0.4 mg sublingual Q5M PRN (Reason: Chest Pain) Rx Instructions: do not exceed 3 doses per episode levalbuterol tartrate [Xopenex HFA] 45 mcg/actuation HFA aerosol inhaler 2 inh INHALATION Q4H PRN (Reason: Shortness Of Breath Or Wheezing) Qty: 15 5RF insulin regular hum U-500 conc 500 unit/mL (3 mL) insulin pen See Rx Instructions .ROUTE .COMPLEX Rx Instructions: inject 50 units with breakfast and lunch.--PER EXT MED HX. rosuvastatin 20 mg tablet 20 mg PO HS tramadol 50 mg tablet 50 mg PO Q6H PRN (Reason: Pain) montelukast 10 mg tablet 10 mg PO HS furosemide 20 mg tablet 20 mg PO DAILY levothyroxine 112 mcg tablet See Rx Instructions .ROUTE .COMPLEX Rx Instructions: takes 1&1/2 168mcg one day per week and Takes 112mcg 6 days a week (not sure of days) nystatin 100,000 unit/gram Ointment 1 applic EXT BID Qty: 15 0RF Rx Instructions: apply twice daily to groin folds multivitamin Tablet 1 tab PO QAM fluticasone propion-salmeterol [Advair Diskus] 250-50 mcg/dose blister with device 1 inh INHALATION BID ferrous sulfate 325 mg (65 mg iron) tablet 325 mg PO QAM Retacrit 40,000 unit/mL solution 40,000 unit subcut Q7D (DME) Oxygen Home Liters Per Minute See Rx Instructions .Route Qty: 4 0RF Rx Instructions: As directed Discharge Orders: Discharge Order (Routine); Ordered 07/10/23 Ordered By: Kaylah Pugh/Other Patient Handouts: Indwelling Urinary Catheter Dc, Mcfadden Catheter Female Ch Admission Data Admit Date/Time: 07/05/23 23:33 Attending Provider: Kaylah Medina Admit Provider: Tex Hawley Primary Care Provider: Melissa Camilo Other Providers: Emily Diez I.; Domingo Blunt; Cameron Mayer; Kervin Hurley; [facility] Other Interventions: Discharge Summary Assessment (RN) Last Done: 07/10/23 14:11 Coding Level of Care Code 40417 INP/OBS DISCH >30 MIN Diagnoses Osteomyelitis of third toe of right foot M86.9 Cellulitis of right foot L03.115 Chronic acquired lymphedema I89.0 Pressure ulcer L89.90 Acute respiratory failure with hypoxia J96.01 Anemia, unspecified type D64.9 Chronic respiratory failure J96.10 CKD (chronic kidney disease) N18.9 Type 2 diabetes mellitus without complication, with long-term current use of insulin E11.9; Z79.4 Diabetes mellitus complication status: without complication 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
== END 2023-07-10 15:30 | disposition home health service (06) | DRG 617 ==
LOC: ED 16:03 → SUATTDRO 23:33 → 3E 23:33

== ENCOUNTER 2023-09-10 21:53 | Inpatient (IN) ==
[2023-09-10 22:41] LABS: Basophils # (auto) 0.03 K/uL (0.00-0.20); Basophils % (auto) 0.5 %; Eosinophils # (auto) 0.24 K/uL (0.00-0.50); Eosinophils % (auto) 4.1 %; Hematocrit (blood only) 34.8 % (37.0-47.0); Hemoglobin 10.1 g/dl (12.0-16.0); Immature Granulocytes # (auto) 0.03 K/uL (0.01-0.20); Immature Granulocytes % (auto) 0.5 %; Lymphocytes # (auto) 0.84 K/uL (1.20-3.40); Lymphocytes % (auto) 14.2 %; Mean Corpuscular Hemoglobin 24.8 pg (25.0-34.0); Mean Corpuscular Volume 85.5 fL (80.0-100.0); Monocytes # (auto) 0.67 K/uL (0.11-0.59); Monocytes % (auto) 11.3 %; Neutrophils # (auto) 4.11 K/uL (1.40-6.50); Neutrophils % (auto) 69.4 %; Platelet Count 209 K/uL (130-400); RDW Coefficient of Variation 23.6 % (11.5-14.5); RDW Standard Deviation 70.9 fL (36.4-46.3); Red Blood Count 4.07 M/uL (4.20-5.40); White Blood Count 5.92 K/ul (4.8-10.8)
[2023-09-10 22:59] LABS: Albumin Globulin Ratio 0.7 (0.9-2); Albumin Level 3.1 gm/dl (3.4-5.0); BUN Creatinine Ratio 17.5 (10-20); Bilirubin,Total 1.1 mg/dl (0.2-1.0); Calcium 8.8 mg/dl (8.6-10.3); Creatinine Clr Calc Pharmacy 48.4 ml/min; Est GFR (African American) 36.6 ml/min; Est GFR (Non-African American) 31.6 ml/min; Globulin 4.5 gm/dl (2.5-4.0); Potassium 3.6 mmol/L (3.5-5.1); Total Protein 7.6 gm/dl (6.0-8.3)
[2023-09-10 23:00] LABS: Anisocytosis Present; Polychromasia 1+; Stomatocytes 1+
[2023-09-10] MEDS: DIPHTHER/TETAN/PERTUS Vaccine (Tdap, Adol/Adult) 0.5mL IM ONE (23:20)
--- NOTE | 2023-09-10 23:53 | History & Physical Report ---
Date of Service September 10, 2023 Assessment & Plan (1) Fall: Plan: -Fall at home, no loss of consciousness or syncopal episode prior to fall. Mechanical in nature. -Knee, pelvis, tibia, fibula, and chest x-ray all negative for acute fractures. -Patient has some assisted lift devices at home, though she does not use them frequently. -PT OT to ordered. (2) Laceration of leg: Plan: -Patient with an open laceration on the left lower extremity. -Will be stitch by ED prior to coming upstairs. -Given that the patient has a open wound on her body and she fell onto feces. Will start on antibiotics. -Started on Dapto and cefepime at time of admission. -Wound care consulted. -As needed pain meds ordered. (3) Type 2 diabetes mellitus with polyneuropathy: Plan: -Patient's home regimen held on admission -Continue BSG checks, sliding-scale insulin, hypoglycemic protocol -Pharmacy diabetes management consulted. -Hemoglobin A1c in the a.m. (4) Chronic acquired lymphedema: Plan: -Noted on physical exam, (5) Morbid obesity due to excess calories: Plan: -Should consider outpatient weight loss management to aid in prevention of further falls. Plan Nutrition: Type II diabetic Code status: Full code DVT ppx: Lovenox Consults: Wound care PT/OT: Consulted Case management: Consulted Dispo: med/surg History of Present Illness Chief Complaint: Fall Primary Care Provider: Melsisa Camilo PA-C Patient is a 67-year-old female w/ PMHx of T2DM, osteomyelitis of r. third toe, cellulitis of r. foot, GERD, anxiety, cellulitis, unstable angina, CKD-stage 3b, CAD (s/p PCI), HTN, STEWART, presented to the hospital after a fall. Patient was at home and was having a bowel movement and when she went to stand up her legs gave out and she fell to the ground. She obtained a laceration to her left lower extremity. She was also covered in fecal matter after the fall. Patient requires 4 L of oxygen at home as baseline. She also has assisted left devices at home. She states that she does not like to use those devices though. She states that she is not mobile much at home. She also states that she did not feel lightheaded prior to the fall or have any LOC. She states that sometimes she does get lightheaded with standing up but she did not prior to this fall. She also denies any abdominal pain, nausea, vomiting, fever, chills, chest pain, or palpitations. She also denies any foot pain or hip pain. She has an indwelling Mcfadden. Of note, patient also had wound cultures growing MRSA previously. In the ED: Knee x-ray, pelvic x-ray, tibia/fibula x-ray, and chest x-ray were all negative for any acute fracture. CBC benign, CMP showed a creatinine of 1.66. At time of admission patient still has an open laceration on the left lower extremity. Allergies Allergy/AdvReac Type Severity Reaction Status Date / Time Iodinated Contrast Media Allergy Severe Hives and Verified 07/05/23 19:15 kidney complications iodine Allergy Severe Hives and Verified 07/05/23 19:15 kidney complications shellfish derived Allergy Severe Anaphylaxis Verified 07/05/23 19:15 /Hives sulfite Allergy Severe HIVES AND Verified 07/05/23 19:15 THROAT CLOSES Home Medications Medication Instructions Recorded Confirmed Type rosuvastatin 20 mg tablet 20 mg PO HS 02/26/19 09/11/23 History tramadol 50 mg tablet 50 mg PO Q6H PRN Pain 05/17/20 09/11/23 History montelukast 10 mg tablet 10 mg PO HS 09/27/20 09/11/23 History nitroglycerin 0.4 mg sublingual 0.4 mg sublingual Q5M PRN Chest 11/30/20 09/11/23 History tablet Pain Oxygen Home [id number] #4 L 06/17/21 09/11/23 Rx furosemide 20 mg tablet 40 mg PO DAILY 07/05/22 09/11/23 History levothyroxine 112 mcg tablet See Rx Instructions .Route .COMPLEX 07/05/22 09/11/23 History BiPap Machine #1 ea 11/27/22 09/11/23 Rx fluticasone 250 mcg-salmeterol 50 1 inh inhalation BID wheezing/sob 07/05/23 09/11/23 History mcg/dose blistr powdr for inhalation (Advair Diskus) epoetin milo-epbx 40,000 unit/mL 40,000 unit subcut Q7D 07/06/23 09/11/23 History injection solution (Retacrit) insulin regular hum U-500 conc 500 0 unit subcut UD 09/11/23 09/11/23 History unit/mL(3 mL) subcut pen (Humulin R U-500 (Conc) Insulin Kwikpen) insulin regular hum U-500 conc 500 See Rx Instructions .Route .COMPLEX 09/11/23 09/11/23 History unit/mL(3 mL) subcut pen (Humulin R U-500 (Conc) Insulin Kwikpen) ipratropium 0.5 mg-albuterol 3 mg 3 ml inhalation TID PRN Shortness 09/11/23 09/11/23 History (2.5 mg base)/3 mL nebulization Of Breath soln Past Med/Surg History Medical History ARDS (adult respiratory distress syndrome) COVID-19 Chest pain Lymphedema Shortness of breath Obstructive sleep apnea syndrome Proteinuria Stage 3b chronic kidney disease Secondary pulmonary hypertension Obesity hypoventilation syndrome Morbid obesity due to excess calories Lymphedema of lower extremity Vitamin D deficiency Stage 3b chronic kidney disease Diarrhea Breathlessness Hypothyroidism Hypertension SOB (shortness of breath) Chronic respiratory failure 1 to 2 L oxygen Morbid obesity CAD S/P percutaneous coronary angioplasty Coronary artery disease Anemia Dyspnea CHF (congestive heart failure) Acute respiratory failure with hypoxia Thyroid cancer Diverticulitis GERD (gastroesophageal reflux disease) Diabetes Surgical History History of percutaneous coronary intervention History of colonoscopy H/O endoscopy H/O partial thyroidectomy Family History Other Diabetes Heart disease No pertinent family history Social History Smoking Status: Never smoker Second Hand Exposure: No; Do You Dip or Chew Tobacco: No; Hx Alcohol Use: No Hx Substance Use: No Preferred Language: Hungarian 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 Ability: Effective Traffic Incident Management Manager Required: No Beliefs That Will Affect Care: None marital status: Current Living Situation: Spouse Current Living Situation Comment: current occupational status: disabled Feels Safe at Home: Yes Safety Concerns: Feels Safe At This Time Diet: other Diet Comment: low carb high protein "like a gastirc bypass diet" states seeing nutrionist caffeine: Yes during the past year weight has: increased > 10 lbs Physical Activity Frequency: Does not Exercise Do you think of yourself as: straight/heterosexual Gender Identity: Female Assistive Devices: CPAP, Glasses, Lift Chair, Oxygen - Continuous, Walker and Wheelchair Review of Systems Review of Systems: All systems reviewed & are unremarkable except as noted in Subjective Physical Exam Physical Exam: Constitutional: Morbidly obese, cooperative, no acute distress HEENT: NCAT, no conjunctival injection CV: regular rhythm, murmur, pedal edema Resp: CTABL, no wheezes/rales/rhonchi appreciated, no increased work of breathing GI: soft, nondistended, nontender, BS normoactive Skin: Open laceration on the left lower extremity. Right third toe amputated Neuro: alert, oriented, no focal neurologic deficit appreciated Results & Data Results & Data Vital Signs (Past 12 Hours) Vital Signs Temp Pulse Resp BP Pulse Ox O2 Del Method O2 Flow Rate 09/10/23 23:12 80 09/10/23 22:07 94 Nasal Cannula 4 09/10/23 22:07 36.7 C 88 20 143/65 H 96 Nasal Cannula 4 Supervising Physician Co-Signing Physician Notes Attending addendum: I have physically seen this patient, have supervised the medical residents activities, and agree with the H&P unless as otherwise noted. Assessment and Plan: Status post ground-level fall- X-rays of knees, pelvis, tib-fib and chest all negative Patient has chosen to not use her left assistive devices at home Consult PT/OT Will likely need an inpatient rehab stay Leg laceration- Left lower extremity had sutures placed by the ED Daptomycin IV and cefepime IV. Patient has had previous MRSA infections, has acute kidney injury, and is a diabetic Consult wound care Diabetes mellitus type 2/polyneuropathy- Holding outpatient regimen of Humulin are Placed on Accu-Cheks with NovoLog SSI Pharmacy diabetic consult Check hemoglobin A1c in the a.m. Morbid obesity- High risk for future falls. PT/OT as noted above Weight loss program
--- NOTE | 2023-09-11 00:14 | Emergency Department Note ---
History of Present Illness General Chief complaint: Fall Stated complaint: COMPOUND TIB/FIB FX, KNEE PAIN History of Present Illness This 67-year-old female via EMS for fall. Patient states she was getting up from the toilet and collapsed. She states her bilateral lower legs are very painful and has lacerations to the left lower leg. EMS gave Ancef and fentanyl for concerns for possible open fracture. Patient also complains of bilateral knee pains. Patient denies foot pain, hip pain, abdominal pain, head injury, back pain or any other medical complaints. She has an indwelling Mcfadden. Home Medications Medication Instructions Recorded Confirmed Type rosuvastatin 20 mg tablet 20 mg PO HS 02/26/19 09/11/23 History tramadol 50 mg tablet 50 mg PO Q6H PRN Pain 05/17/20 09/11/23 History montelukast 10 mg tablet 10 mg PO HS 09/27/20 09/11/23 History nitroglycerin 0.4 mg sublingual 0.4 mg sublingual Q5M PRN Chest 11/30/20 09/11/23 History tablet Pain Oxygen Home [id number] #4 L 06/17/21 09/11/23 Rx furosemide 20 mg tablet 40 mg PO DAILY 07/05/22 09/11/23 History levothyroxine 112 mcg tablet See Rx Instructions .Route .COMPLEX 07/05/22 09/11/23 History BiPap Machine #1 ea 11/27/22 09/11/23 Rx fluticasone 250 mcg-salmeterol 50 1 inh inhalation BID wheezing/sob 07/05/23 09/11/23 History mcg/dose blistr powdr for inhalation (Advair Diskus) epoetin milo-epbx 40,000 unit/mL 40,000 unit subcut Q7D 07/06/23 09/11/23 History injection solution (Retacrit) insulin regular hum U-500 conc 500 0 unit subcut UD 09/11/23 09/11/23 History unit/mL(3 mL) subcut pen (Humulin R U-500 (Conc) Insulin Kwikpen) insulin regular hum U-500 conc 500 See Rx Instructions .Route .COMPLEX 09/11/23 09/11/23 History unit/mL(3 mL) subcut pen (Humulin R U-500 (Conc) Insulin Kwikpen) ipratropium 0.5 mg-albuterol 3 mg 3 ml inhalation TID PRN Shortness 09/11/23 09/11/23 History (2.5 mg base)/3 mL nebulization Of Breath soln Allergies Allergy/AdvReac Type Severity Reaction Status Date / Time Iodinated Contrast Media Allergy Severe Hives and Verified 07/05/23 19:15 kidney complications iodine Allergy Severe Hives and Verified 07/05/23 19:15 kidney complications shellfish derived Allergy Severe Anaphylaxis Verified 07/05/23 19:15 /Hives sulfite Allergy Severe HIVES AND Verified 07/05/23 19:15 THROAT CLOSES Past Med/Surg History Medical History ARDS (adult respiratory distress syndrome) COVID-19 Chest pain Lymphedema Shortness of breath Obstructive sleep apnea syndrome Proteinuria Stage 3b chronic kidney disease Secondary pulmonary hypertension Obesity hypoventilation syndrome Morbid obesity due to excess calories Lymphedema of lower extremity Vitamin D deficiency Stage 3b chronic kidney disease Diarrhea Breathlessness Hypothyroidism Hypertension SOB (shortness of breath) Chronic respiratory failure 1 to 2 L oxygen Morbid obesity CAD S/P percutaneous coronary angioplasty Coronary artery disease Anemia Dyspnea CHF (congestive heart failure) Acute respiratory failure with hypoxia Thyroid cancer Diverticulitis GERD (gastroesophageal reflux disease) Diabetes Surgical History History of percutaneous coronary intervention History of colonoscopy H/O endoscopy H/O partial thyroidectomy Family History Other Diabetes Heart disease No pertinent family history Social History Smoking Status: Never smoker Second Hand Exposure: No; Do You Dip or Chew Tobacco: No; Hx Alcohol Use: No Hx Substance Use: No Preferred Language: Uzbek 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 Ability: Effective Automobile Bumper Straightener Required: No Beliefs That Will Affect Care: None marital status: Current Living Situation: Spouse Current Living Situation Comment: current occupational status: disabled Feels Safe at Home: Yes Diet: other Diet Comment: low carb high protein "like a gastirc bypass diet" states seeing nutrionist caffeine: Yes during the past year weight has: increased > 10 lbs Physical Activity Frequency: Does not Exercise Do you think of yourself as: straight/heterosexual Gender Identity: Female Assistive Devices: CPAP, Glasses, Lift Chair, Oxygen - Continuous, Walker and Wheelchair Review of Systems A total of 10 systems reviewed and were otherwise negative Physical Exam Vital Signs Vital Signs - 24 hr 09/10/23 22:07 09/10/23 22:07 09/10/23 23:12 Temperature 36.7 C Temperature Source Oral Pulse Rate 88 80 Pulse Rate [Apical] Respiratory Rate 20 Respiratory Effort / Characteristics Non-Labored Respiratory Depth Normal Respiratory Pattern Regular Blood Pressure 143/65 H Blood Pressure [Right Arm] Blood Pressure Mean 91 Blood Pressure Mean [Right Arm] Pulse Oximetry 96 94 Oxygen Delivery Method Nasal Cannula Nasal Cannula Oxygen Flow Rate 4 4 Sepsis Recent Fever Within 48 Hours No Sepsis New/Unexplained Change in Mental Status N/A Sepsis Action Taken by Nursing No Action Required 09/11/23 00:10 Temperature Temperature Source Pulse Rate Pulse Rate [Apical] 81 Respiratory Rate 18 Respiratory Effort / Characteristics Non-Labored Respiratory Depth Normal Respiratory Pattern Regular Blood Pressure Blood Pressure [Right Arm] 143/82 H Blood Pressure Mean Blood Pressure Mean [Right Arm] 102 Pulse Oximetry 100 Oxygen Delivery Method Nasal Cannula Oxygen Flow Rate 4 Sepsis Recent Fever Within 48 Hours Sepsis New/Unexplained Change in Mental Status Sepsis Action Taken by Nursing VITALS: Vitals are noted on the nurse's note and reviewed by myself. Vital signs stable. GENERAL: White female with an elevated BMI, in no acute distress, nondiaphoretic, well-developed well-nourished. SKIN: Multiple lacerations to the left lower leg, the rest of the skin was without rashes, erythema, edema, or bruising. There is no tenting of the skin. Capillary reflex less than 2 seconds. HEAD: Normocephalic atraumatic. EARS: External auditory canals clear EYES: Pupils equal round and reactive to light and accommodation. Conjunctivae without injection, sclerae without icterus. Extraocular movements intact. NOSE: Patent, no discharge. MOUTH: Mucous membranes moist. Pharynx without erythema or exudate. Uvula midline. Airway patent. Tongue does not deviate. NECK: Supple without nuchal rigidity. No lymphadenopathy. No thyromegaly. Cervical spine is nontender. No JVD. HEART: Regular rate and rhythm LUNGS: Clear to auscultation bilaterally without wheezes, rales or rhonchi. No retractions or accessory muscle use. ABDOMEN: Positive bowel sounds x 4. Normal tympanic percussion. Soft, nontender, without masses or organomegaly. Levine sign negative. No guarding or rebound tenderness. No CVA tenderness MUSCULOSKELETAL: No muscle atrophy noted. Bilateral knees and tib-fib tender to palpation. Feet are nontender to palpation. Pedal pulses +2 equal and present bilaterally. Left lower leg with multiple lacerations present. Moderate lower leg swelling bilaterally unchanged. NEURO: Patient was alert and oriented to person place and time. Normal sensation to light and sharp touch. No focal neurological deficits. Course Administered Medications Enoxaparin Sodium (Enoxaparin Inj 40 Mg/0.4 Ml Syr) 40 mg SQ QAM [facility] Stop: 10/11/23 08:59 Last Admin: 09/11/23 08:50 Dose: 40 mg Documented By: ABHINAV Ferrous Sulfate (Ferrous Sulfate 325 Mg Tab) [facility] Stop: 10/11/23 08:59 Last Admin: 09/11/23 08:50 Dose: 325 mg Documented By: ABHINAV Furosemide (Furosemide 20 Mg Tab) 20 mg PO DAILY [facility] Stop: 10/11/23 08:59 Last Admin: 09/11/23 08:50 Dose: 20 mg Documented By: ABHINAV Daptomycin 375 mg/ Syringe 7.5 mls @ 3.75 mls/min IV Q24H [facility]; Protocol Stop: 09/18/23 03:29 Last Admin: 09/11/23 04:06 Dose: 3.75 mls/min Documented By: RANDELL Cefepime HCl 2,000 mg/ Syringe 20 mls @ 5 mls/min IV Q12H [facility]; Protocol Stop: 09/18/23 02:59 Last Admin: 09/11/23 14:57 Dose: 5 mls/min Documented By: Admin: 09/11/23 04:06 Dose: 5 mls/min Documented By: RANDELL Insulin Aspart (Insulin Aspart Per Unit Charge) 0 units SC ACHS [facility] Stop: 10/11/23 07:29 Last Admin: 09/11/23 12:53 Dose: Not Given Documented By: Admin: 09/11/23 09:29 Dose: 1 units Documented By: ABHINAV Co-signed By: GISELLA Morphine Sulfate (Morphine Sulfate 4 Mg/Ml 1 Ml Carp\\Vial) 4 mg IV Q3H PRN PRN Reason: Severe Pain (Scale 7, 8, 9,10) Stop: 09/25/23 02:01 Last Admin: 09/11/23 16:08 Dose: 4 mg Documented By: Admin: 09/11/23 02:32 Dose: 4 mg Documented By: RANDELL Multivitamins (Multivitamin Tab) 1 tab PO QAM [facility] Stop: 10/11/23 08:59 Last Admin: 09/11/23 08:50 Dose: 1 tab Documented By: ABHINAV Tramadol HCl (Tramadol Hcl 50 Mg Tablet) 50 mg PO Q4H PRN PRN Reason: Moderate Pain (Scale 4, 5, 6) Stop: 10/11/23 02:01 Last Admin: 09/11/23 08:54 Dose: 50 mg Documented By: ABHINAV Discontinued Medications Diphtheria/Pertussis/Tetanus Vacc (Diphther/Tetan/Pertus Vaccine (Tdap, Adol/Adult) 0.5ml) 0.5 ml IM .ONCE ONE Stop: 09/10/23 23:02 Last Admin: 09/10/23 23:20 Dose: 0.5 ml Documented By: RANDELL Lidocaine HCl (Lidocaine 1% Local 20 Ml Vial) 20 ml INJ NOW ONE Stop: 09/10/23 23:04 Last Admin: 09/11/23 01:59 Dose: 20 ml Documented By: [id number] Medical Decision Making Medical Records Attestation: I reviewed the patient's medical records. Home Medications Current Medication List: was personally reviewed by me Laboratory Data Attestation: I reviewed the patient's lab results. 09/10/23 22:05 09/10/23 22:05 Lab Results 09/10/23 Range/Units 22:05 WBC 5.92 (4.8-10.8) K/ul RBC 4.07 L (4.20-5.40) M/uL Hgb 10.1 L (12.0-16.0) g/dl Hct 34.8 L (37.0-47.0) % MCV 85.5 (80.0-100.0) fL MCH 24.8 L (25.0-34.0) pg MCHC 29.0 L (32.0-36.0) g/dL RDW Std Deviation 70.9 H (36.4-46.3) fL RDW Coeff of Cherelle 23.6 H (11.5-14.5) % Plt Count 209 (130-400) K/uL MPV 11.0 (9.4-12.4) fL Immature Gran % (Auto) 0.5 % Neut % (Auto) 69.4 % Lymph % (Auto) 14.2 % Zavala % (Auto) 11.3 % Eos % (Auto) 4.1 % Baso % (Auto) 0.5 % Neut # (Auto) 4.11 (1.40-6.50) K/uL Lymph # (Auto) 0.84 L (1.20-3.40) K/uL Zavala # (Auto) 0.67 H (0.11-0.59) K/uL Eos # (Auto) 0.24 (0.00-0.50) K/uL Baso # (Auto) 0.03 (0.00-0.20) K/uL Immature Gran # (Auto) 0.03 (0.01-0.20) K/uL Polychromasia 1+ Anisocytosis Present Stomatocytes 1+ Sodium 138 (136-145) mmol/L Potassium 3.6 (3.5-5.1) mmol/L Chloride 100 (98-107) mmol/L Carbon Dioxide 32 (21-32) mmol/L Anion Gap 6 (3-11) BUN 29 H (6-23) mg/dl Creatinine 1.66 H (0.6-1.2) mg/dl Est Cr Clr Drug Dosing 48.4 ml/min Est GFR ( Amer) 36.6 ml/min Est GFR (Non-Af Amer) 31.6 ml/min BUN/Creatinine Ratio 17.5 (10-20) Glucose 89 (70-99(Fasting)) mg/dl Estimat Average Glucose 160 mg/dl Hemoglobin A1c 7.2 H (4.5-5.6) % Calcium 8.8 (8.6-10.3) mg/dl Total Bilirubin 1.1 H (0.2-1.0) mg/dl AST 18 (13-39) U/L ALT 7 (7-52) U/L Alkaline Phosphatase 81 (34-104) U/L Total Creatine Kinase 32 (26-192) U/L Total Protein 7.6 (6.0-8.3) gm/dl Albumin 3.1 L (3.4-5.0) gm/dl Globulin 4.5 H (2.5-4.0) gm/dl Albumin/Globulin Ratio 0.7 L (0.9-2) Imaging Data Attestation: I personally reviewed and interpreted this imaging study as follows: Radiologist's Impression: Knee X-Ray 09/10/23 22:02 XR knee RT 3V HISTORY: 67 years-old Female fall, pain acute right knee pain status post fall COMPARISON: 12/06/2022 TECHNIQUE: 2 views of the right knee FINDINGS: Limited exam secondary to patient body habitus. There is diffuse soft tissue prominence. Mild to moderate medial and mild patellofemoral and lateral compartment osteoarthritis. No acute fracture, dislocation or opaque foreign body identified. IMPRESSION: Tricompartmental osteoarthritis without acute fracture or dislocation identified. ACT 112: Negative or not required by law. The above report was generated using voice recognition software. It may contain grammatical, syntax or spelling errors. Electronically signed by: Jose Katz M.D. 09/11/2023 7:02 AM Knee X-Ray 09/10/23 22:02 XR knee LT 3V HISTORY: 67 years-old Female fall, pain acute left knee pain status post fall COMPARISON: Tibia and fibula radiographs of same day TECHNIQUE: 2 views of the left knee FINDINGS: Limited exam secondary to patient body habitus. Diffuse soft tissue prominence. Mild tricompartmental osteoarthritis. No acute fracture, dislocation or opaque foreign body identified. IMPRESSION: No acute fracture or dislocation identified. ACT 112: Negative or not required by law. The above report was generated using voice recognition software. It may contain grammatical, syntax or spelling errors. Electronically signed by: Jose Katz M.D. 09/11/2023 7:13 AM Pelvis X-Ray 09/10/23 22:02 AP PELVIS ONE VIEW HISTORY: fall COMPARISON: None. FINDINGS: There is no fracture or dislocation. Soft tissues are unremarkable. No radiopaque foreign bodies. IMPRESSION: No fracture or dislocation within the pelvis or hips. ACT 112: Negative or not required by law. Electronically signed by: Papi Jorge M.D. 09/11/2023 7:50 AM Tibia/Fibula X-Ray 09/10/23 22:02 XR tibia fibula LT 2V HISTORY: 67 years-old Female fall, pain acute pain of the left leg status post fall COMPARISON: Left knee radiographs of same day TECHNIQUE: 2 views of the left tibia and fibula FINDINGS: Diffuse soft tissue swelling. No acute fracture, dislocation, osseous erosion or opaque foreign body identified. IMPRESSION: Soft tissue swelling without acute osseous abnormality. ACT 112: Negative or not required by law. The above report was generated using voice recognition software. It may contain grammatical, syntax or spelling errors. Electronically signed by: Jose Katz M.D. 09/11/2023 7:11 AM Tibia/Fibula X-Ray 09/10/23 22:02 XR tibia fibula RT 2V CLINICAL HISTORY: fall, pain COMPARISON STUDY: None. FINDINGS: No fracture or dislocation within the right tibia or fibula. Diffuse soft tissue edema within the right lower leg. No radiopaque or bodies. IMPRESSION: No fractures within the right lower leg. ACT 112: Negative or not required by law. Electronically signed by: Papi Jorge M.D. 09/11/2023 7:51 AM Chest X-Ray 09/10/23 22:26 XR chest 1V portable HISTORY: Weakness. Fall. COMPARISON: Chest 07/05/2023. FINDINGS: No pneumothorax. The heart is moderately enlarged. There is elevation of the right hemidiaphragm. Left basilar linear densities favor subsegmental atelectasis or scarring. Otherwise, no focal lung consolidations to suggest a pneumonia. There is mild central pulmonary vascular congestion without overt edema. No acute fractures. IMPRESSION: 1. Cardiomegaly and mild congestive change. 2. Elevated right hemidiaphragm. ACT 112: Negative or not required by law. Electronically signed by: Papi Jorge M.D. 09/11/2023 7:49 AM MDM Narrative Prior records/ancillary studies reviewed and summarized above. Nursing notes reviewed. Additional history obtained from family. The patient's history was concerning for lower leg pain after fall Differential diagnosis: Etiologies such as fracture, dislocation, laceration, contusion and other etiologies were considered Physical examination: As above. ER treatment provided: IV Lock EMS gave Ancef 2 g IV and fentanyl Tetanus was ordered An order was placed for continuous cardiac monitoring. The monitor shows a rate of 60-100 with a sinus rhythm per my interpretation. Laceration Repair was done by nurse practitioner Karly and please see her dictation On reassessment the patient felt better. Diagnostics interpretation by me: The labs Independently Interpreted by myself revealed Mild anemia, stable creatinine per chart review Imaging studies: Chest x-ray with no acute consolidation, pneumothorax or free air per my independent interpretation Pelvic x-ray negative fracture per my independent interpretation Tib-fib x-rays negative for fracture dislocation or foreign body per my independent rotation Bilateral knee x-rays negative fracture, dislocation or effusion per my independent interpretation Consultation: A consultation was placed with the hospitalist. The case was discussed and diagnostics were reviewed. The patient was evaluated in the ER for further treatment. Exam and history seem consistent with weakness. Patient was too weak to walk on her legs. No obvious fracture on imaging. Wounds were repaired as above. Tetanus is updated. Medicine was consulted case and the case was discussed. Patient was admitted to the medical service. By the evaluation outlined above emergent etiologies such as infection, electrolyte abnormalities, cardiac sources, intracerebral event, toxologic, neurologic, abnormalities blood glucose, metabolic, as well as others were deemed relatively unlikely. The pt informed about the findings as listed above. All questions were answered and pleased with the treatment. The chart was completed utilizing [employer] Speech voice recognition software. Grammatical errors, random word insertions, pronoun errors, and incomplete sentences are an occassional consequence of this system due to software limitations, ambient noise, and hardware issues. Any formal questions or concerns about the content, text, or information contained within the body of this dictation should be directly addressed to the physician assistant track coach for clarification. Impression & Plan Leg injury, Weakness, Laceration of leg Discharge Plan Visit Data Chief Complaint: Fall Stated Complaint: COMPOUND TIB/FIB FX, KNEE PAIN ED Provider: Hector Lobato ED Midlevel Provider: Yanna Diez Discharge Problem: Leg injury, Weakness, Laceration of leg Patient Disposition: Admitted As Inpatient Condition: Fair Discharge Instructions Interventions: ED Discharge Assessment Last Done: 09/11/23 02:35 Addendum September 11, 2023 17:08 I was consulted by the Advanced Practice Provider and was substantively involved in the patient's visit.This includes aspects of the HPI, MDM, diagnostic interpretations, and disposition/plan. I discussed the case with the ABDI and agree with the findings and plan as documented in ABDI Rg's note. Discharge Problem: Leg injury Qualifiers: Encounter type: initial encounter Laterality: left Qualified Code(s): S89.92XA - Unspecified injury of left lower leg, initial encounter
--- NOTE | 2023-09-11 01:57 | Emergency Department Note ---
ED Visit Note I was asked by my colleague Jewell Diez PA-C to assist with the closure of the patient's wound on her left lower extremity. Using sterile procedure, the wound was cleansed with sterile saline, and Betadine. Due to the significant tissue swelling surrounding the wound it was difficult to approximate wound edges. I was able to place 7, 4-0 nylon sutures to approximate the wound edges to the best of my ability. The patient was anesthetized with 5 cc of 1% buffered lidocaine. The wound was covered with petroleum gauze, an ABD pad and an Chi wrap. The patient tolerated the procedure well. .
[2023-09-11] MEDS: LIDOCAINE 1% LOCAL 20 ML VIAL INJ ONE (01:59)
[2023-09-11] MEDS ORDERED: ACETAMINOPHEN 1,000 MG/100 ML VIAL IV PRN (02:02)
[2023-09-11] MEDS: MoRPHine SULFATE 4 MG/ML 1 ML CARP\\VIAL IV PRN (02:32)
[2023-09-11] MEDS ORDERED: POLYETHYLENE (MIRALAX) 17 GM PACK PO PRN (02:35)
[2023-09-11] MEDS ORDERED: DEXTROSE 50% 50 ML SYRINGE IV PRN (02:35)
[2023-09-11] MEDS ORDERED: CARBOHYDRATES FOR HYPOGLYCEMIA PO PRN (02:35)
[2023-09-11] MEDS ORDERED: GLUCOSE 10 TAB/TUBE PO PRN (02:35)
[2023-09-11] MEDS ORDERED: GLUCOSE 40% GEL 15 GM TUBE PO PRN (02:35)
[2023-09-11] MEDS ORDERED: PHARMACY GLYCEMIC MGMT CONSULT PRN (02:35)
[2023-09-11] MEDS ORDERED: GLUCAGON FOR INJ 1 MG VIAL SQ PRN (02:35)
[2023-09-11] MEDS: CEFEPIME 2,000 MG in SYRINGE 0 ML IV SCH (04:06)
[2023-09-11] MEDS: DAPTOmycin 375 MG in SYRINGE 0 ML IV SCH (04:06)
--- NOTE | 2023-09-11 05:40 | Billing Data ---
Date of Service September 11, 2023 Coding Level of Care Code 39633 INT INP/OBS CARE
--- NOTE | 2023-09-11 07:05 | XRay Report ---
XR knee RT 3V HISTORY: 67 years-old Female fall, pain acute right knee pain status post fall COMPARISON: 12/06/2022 TECHNIQUE: 2 views of the right knee FINDINGS: Limited exam secondary to patient body habitus. There is diffuse soft tissue prominence. Mild to mode rate medial and mild patellofemoral and lateral compartment osteoarthritis. No acute fracture, disloc ation or opaque foreign body identified. IMPRESSION: Tricompartmental osteoarthritis without acute fracture or dislocation identified. ACT 112: Negative or not required by law. The above report was generated using voice recognition software. It may contain grammatical, syntax o r spelling errors. Electronically signed by: Jose Ktaz M.D. 09/11/2023 7:02 AM
--- NOTE | 2023-09-11 07:12 | XRay Report ---
XR tibia fibula LT 2V HISTORY: 67 years-old Female fall, pain acute pain of the left leg status post fall COMPARISON: Left knee radiographs of same day TECHNIQUE: 2 views of the left tibia and fibula FINDINGS: Diffuse soft tissue swelling. No acute fracture, dislocation, osseous erosion or opaque foreign body identified. IMPRESSION: Soft tissue swelling without acute osseous abnormality. ACT 112: Negative or not required by law. The above report was generated using voice recognition software. It may contain grammatical, syntax o r spelling errors. Electronically signed by: Jose Katz M.D. 09/11/2023 7:11 AM
--- NOTE | 2023-09-11 07:14 | XRay Report ---
XR knee LT 3V HISTORY: 67 years-old Female fall, pain acute left knee pain status post fall COMPARISON: Tibia and fibula radiographs of same day TECHNIQUE: 2 views of the left knee FINDINGS: Limited exam secondary to patient body habitus. Diffuse soft tissue prominence. Mild tricompartmental osteoarthritis. No acute fracture, dislocation or opaque foreign body identified. IMPRESSION: No acute fracture or dislocation identified. ACT 112: Negative or not required by law. The above report was generated using voice recognition software. It may contain grammatical, syntax o r spelling errors. Electronically signed by: Jose Katz M.D. 09/11/2023 7:13 AM
[2023-09-11 07:30] LABS: Estimated Average Glucose 160 mg/dl; Hemoglobin A1C 7.2 % (4.5-5.6)
--- NOTE | 2023-09-11 07:50 | XRay Report ---
XR chest 1V portable HISTORY: Weakness. Fall. COMPARISON: Chest 07/05/2023. FINDINGS: No pneumothorax. The heart is moderately enlarged. There is elevation of the right hemidiap hragm. Left basilar linear densities favor subsegmental atelectasis or scarring. Otherwise, no focal lung consolidations to suggest a pneumonia. There is mild central pulmonary vascular congestion witho ut overt edema. No acute fractures. IMPRESSION: 1. Cardiomegaly and mild congestive change. 2. Elevated right hemidiaphragm. ACT 112: Negative or not required by law. Electronically signed by: Papi Jorge M.D. 09/11/2023 7:49 AM
--- NOTE | 2023-09-11 07:51 | XRay Report ---
AP PELVIS ONE VIEW HISTORY: fall COMPARISON: None. FINDINGS: There is no fracture or dislocation. Soft tissues are unremarkable. No radiopaque foreign b odies. IMPRESSION: No fracture or dislocation within the pelvis or hips. ACT 112: Negative or not required by law. Electronically signed by: Papi Jorge M.D. 09/11/2023 7:50 AM
--- NOTE | 2023-09-11 07:52 | XRay Report ---
XR tibia fibula RT 2V CLINICAL HISTORY: fall, pain COMPARISON STUDY: None. FINDINGS: No fracture or dislocation within the right tibia or fibula. Diffuse soft tissue edema with in the right lower leg. No radiopaque or bodies. IMPRESSION: No fractures within the right lower leg. ACT 112: Negative or not required by law. Electronically signed by: Papi Jorge M.D. 09/11/2023 7:51 AM
--- OUTSIDE RECORDS SUMMARY | 2023-09-11 08:44 | External Medical Summary ---
Author Name Unknown Address Unknown Organization [id number]:[facility] [address] [place] [id number] Laboratory Report Ordering Provider Test Date Status CHRISTIANO MCNEIL 08/09/2023 11:26:00 Final Observation Date Value Abnormality Reference (Units ) Status WBC, Total 08/09/2023 11:26:00 6.21 4.00-10.8 0 (K/uL) Final RBC 08/09/2023 11:26:00 3.95 3.85-5.15 (M/uL) Final Hemoglobin 08/09/2023 11:26:00 9.8 Below low normal 12 .0-15.3 (g/dL) Final HCT 08/09/2023 11:26:00 33.9 Below low normal 36. 0-45.2 (%) Final MCV 08/09/2023 11:26:00 85.8 81.5-97.5 (fL) Final MCH 08/09/2023 11:26:00 24.8 27.0-34.0 (pg) Final MCHC 08/09/2023 11:26:00 28.9 32.0-36.0 (g/dL) Final RDW 08/09/2023 11:26:00 23.1 11.5-15.5 (%) Final Platelets 08/09/2023 11:26:00 209 140-400 (K /uL) Final MPV 08/09/2023 11:26:00 10.5 6.6-11.1 ( fL) Final Performing Location [facility] [address] [place] [id number]
--- OUTSIDE RECORDS SUMMARY | 2023-09-11 08:44 | External Medical Summary ---
Author Name Unknown Address Unknown Organization K0G:LABORATORY [facility] [address] [place] [id number] Laboratory Report Ordering Provider Test Date Status CHRISTIANO MCNEIL 08/14/2023 10:08:00 Final Observation Date Value Abnormality Reference (Units ) Status WBC, Total 08/14/2023 10:08:00 7.09 4.00-10.8 0 (K/uL) Final RBC 08/14/2023 10:08:00 3.97 3.85-5.15 (M/uL) Final Hemoglobin 08/14/2023 10:08:00 10.0 Below low normal 12 .0-15.3 (g/dL) Final HCT 08/14/2023 10:08:00 34.2 Below low normal 36. 0-45.2 (%) Final MCV 08/14/2023 10:08:00 86.1 81.5-97.5 (fL) Final MCH 08/14/2023 10:08:00 25.2 27.0-34.0 (pg) Final MCHC 08/14/2023 10:08:00 29.2 32.0-36.0 (g/dL) Final RDW 08/14/2023 10:08:00 23.0 11.5-15.5 (%) Final Platelets 08/14/2023 10:08:00 238 140-400 (K /uL) Final MPV 08/14/2023 10:08:00 11.4 6.6-11.1 ( fL) Final Performing Location [facility] [address] [address] [place] [id number]
--- OUTSIDE RECORDS SUMMARY | 2023-09-11 08:44 | External Medical Summary ---
Author Name Unknown Address Unknown Organization K0G:LABORATORY [facility] [address] [address] [place] [id number] Laboratory Report Ordering Provider Test Date Status CHRISTIANO MCNEIL 08/21/2023 11:34:00 Final Observation Date Value Abnormality Reference (Units ) Status WBC, Total 08/21/2023 11:34:00 6.60 4.00-10.8 0 (K/uL) Final RBC 08/21/2023 11:34:00 4.02 3.85-5.15 (M/uL) Final Hemoglobin 08/21/2023 11:34:00 10.0 Below low normal 12 .0-15.3 (g/dL) Final HCT 08/21/2023 11:34:00 35.3 Below low normal 36. 0-45.2 (%) Final MCV 08/21/2023 11:34:00 87.8 81.5-97.5 (fL) Final MCH 08/21/2023 11:34:00 24.9 27.0-34.0 (pg) Final MCHC 08/21/2023 11:34:00 28.3 32.0-36.0 (g/dL) Final RDW 08/21/2023 11:34:00 22.6 11.5-15.5 (%) Final Platelets 08/21/2023 11:34:00 206 140-400 (K /uL) Final MPV 08/21/2023 11:34:00 11.0 6.6-11.1 ( fL) Final Performing Location LAB[facility]ATORY [facility] [address] [address] [place] [id number]
--- OUTSIDE RECORDS SUMMARY | 2023-09-11 08:44 | External Medical Summary | Continuity of Care Document ---
Author Name Unknown Organization [facility] [address] Address [address] [facility] [place] [id number] Care Team Providers Care Cloud Physicist Name Role Phone Aiyana Asencio Stephanie Primary Care Physician [phone] Encounter [facility] JESSICA [id number] Date(s): 08/10/23 - 08/10/23 [facility] [address], [address] [place] [address] [phone] Encounter Diagnosis Generalized weakness(Discharge Diagnosis) - 08/10/23 Ambulatory dysfunction(Discharge Diagnosis) - 08/10/23 Prolonged immobilization(Discharge Diagnosis) - 08/10/[address](Discharge Diagnosis) - 08/10/23 Body mass index [BMI] 70 or greater, adult(Discharge Diagnosis) - 08/10/23 Dependent for transferring location(Discharge Diagnosis) - 08/10/23 Morbid obesity(Discharge Diagnosis) - 08/10/23 Urinary incontinence(Discharge Diagnosis) - 08/10/23 Discharge Disposition: Home or Self Care Attending Physician: KARRI Camilo Jessica A Allergies, Adverse Reactions, Alerts Substance Reaction Severity Status ciprofloxacin nausea, body aches, joint pain and cramp ing Active albuterol itching Active sulfites itching Active IVP dye rash and swelling Active seafood hives, throat closed, SOB Ac tive Assessment and Plan Extracted from: Title:TeleHealth - camacho lift Author:KARRI Camilo Jessica A Date:08/10/23 1.Ambulatory dysfunction Lucy has chronic ambulatory dysfunction, generalized weakness, severemorbid obesity and is dependent for transferring. This is all uncontrolled and goal is improved mobilization. Camacho lift prescription was placed in chart and we will fax to her durable medical equipment provider. Encouraged her to continue within-home physical therapy at least once weekly to improve strength as well. 2.Generalized weakness As above in #1. 3.Dependent for transferring location As above in #1. 4.Morbid obesity As above in #1. 5.Urinary incontinence Patient has chronic urinary incontinence, which is likely functional in nature. She hashad prolonged immobilization and currently has a Mcfadden catheter in place. This has not been changedin the months since her hospital discharge. And new order for Mcfadden catheterplacement will be placed while she is in home nursing's care. Once she is discharged from home nursing further orders will need to come from either her vibration technician or urologist. Declines any referral at this time. Ultimate goal is to improve strength to increase ability to ambulate on her own to use a bedside commode. 6.Prolonged immobilization As above. 7.Mcfadden catheter in place As above. Time spent on pre-visit plannin minute on chart review Face to face time spent w/ patient:12 minutes Time spent documenting pertinent clinical information into the EMR:21 minutes Total time: 34 minutes Immunizations Given and Recorded Vaccine Date [...] day to 6 TIMES A DAY, Pharmacy [address] Start Date: 07/18/21 Status: Ordered Advair Diskus 250 mcg-50 mcg Start: 05/23/23 16:59:00 EDT, 1 puff, PO, bid, Disp# 1 each, Refills: 5, Note to Pharmacy: inhale 1puff PO twice a day for shortness of breath, Pharmacy: [facility] #[id number] Start Date: 05/23/23 Status: Ordered albuterol-ipratropium 2.5 mg-0.5 mg/3 mL inhalation solution Start: 05/23/23 16:59:00 EDT, See Instructions, Disp# 90 mL, Refills: 5, 3 ML INHALED THREE TIMES ADAY NEEDED FOR SHORTNESS OF BREATH OR WHEEZING, [facility]acy: [facility] #[id number] Start Date: 05/23/23 Status: Ordered BD 1 mL Ultra-Fine Insulin Syringe 30G x 1/2" Start: 07/11/17 10:06:00, See Instructions, Disp# 3 box, Refills: 5, use QID, Dx : E11.9, Pharmacy:[id number] Start Date: 07/11/17 Status: Ordered EpiPen 2-Andres 0.3 mg injectable kit Start: 09/10/15 19:58:00, 0.3 mg =, IM, ONCE, Disp# 1 unit, Refills: 0, Pharmacy: [id number] [place] [address] Start Date: 09/10/15 Status: Ordered FeroSul 325 mg (65 mg elemental iron) oral tablet Start: 03/29/22 13:05:00 EDT, See Instructions, Disp# 60 tab, Refills: 5, take 1 tablet by mouth twice a day, [facility] #[id number] Start Date: 03/29/22 Status: Ordered fluticasone 50 mcg/inh nasal spray See Instructions, Disp# 16 g, Refills: 5, instill 2 sprays into each nostril once daily, Pharmacy: [id number] Start Date: 09/13/20 Status: Ordered furosemide 20 mg oral tablet Start: 12/11/22 8:21:00 EDT, See Instructions, Disp# 60 tab, Refills: 11, take 2 tablets by mouth once daily, [facility][id number] Start Date: 12/11/22 Status: Ordered glucose test strips Start: 12/14/17 9:37:57 EDT, See Instructions, Disp# 200 unit, Refills: 11, Ultra One touch; test QID to 6 times a day DX : E11.65, Pharmacy: [address] Start Date: 12/14/17 Status: Ordered Humalin UV 500 Start: 08/30/18 15:59:00 EST, Humalin UV 500, Note to Pharmacy: 60 units in AM & lunch, 70 dinner Start Date: 08/30/18 Status: Ordered levalbuterol CFC free 45 mcg/inh inhalation aerosol Start: 05/23/23 16:59:00 EDT, 2 puff, inhaled, q4h, Disp# 2 each, Refills: 5, PRN: as needed for wheezing, [id number] Start Date: 05/23/23 Status: Ordered levothyroxine 112 mcg (0.112 mg) oral tablet take 1 tablet by mouth once daily Start Date: 09/20/22 Status: Ordered montelukast 10 mg oral tablet Start: 10/16/22 9:11:00 EDT, See Instructions, Disp# 30 tab, Refills: 5, take 1 tablet by mouth every evening, Pharmacy: [facility] #[id number] Start Date: 10/16/22 Status: Ordered Mucinex DM 600 mg-30 mg oral tablet, extended release Start: 04/20/20 7:51:00 EDT, 1 tab, PO, q12h, PRN: congestion Start Date: 04/20/20 Status: Ordered Nitrostat 0.4 mg sublingual tablet Start: 03/10/21 16:35:00 EDT, 1 tab, SL, q5min, Disp# 25 tab, Refills: 1, PRN: as needed for chest pain, Pharmacy: [facility] Start Date: 03/10/21 Stop Date: 05/09/21 Status: Ordered ONETOUCH ULTRA BLUE TEST STRP ONETOUCH ULTRA BLUE TEST STRP, See Instructions, Disp# 200 strip, Refills: 6, TEST four times a dayto 6 TIMES A DAY, Pharmacy [address] Start Date: 05/11/20 Status: Ordered Oxygen [...] take 1 tablet by mouth atbedtime, [id number] Start Date: 02/09/23 Status: Ordered traMADol 50 mg oral tablet Start: 06/12/23 9:55:00 EST, 1 tab, PO, q6h, Disp# 120 tab, Refills: 5, PRN: as needed for pain, [facility]: [facility][id number] Start Date: 06/12/23 Stop Date: 12/09/23 Status: Ordered triamcinolone 0.1% topical cream Start: 10/30/22 15:05:00 EDT, 1 appl, topical, bid, Disp# 454 g, Pharmacy: [facility] #[id number] Start Date: 10/30/22 Stop Date: 11/13/22 Status: Ordered Mental Status 08/10/23 Barriers to Learning one year None evide nt Mandatory Health Literacy Documentation Yes Health Literacy 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 Barriers N ever Primary Language Kyrgyz Problem List Condition Confirmation Course Effective Dates Status H ealth Status Informant Acquired lymphedema of lower extremity Confirmed Active Acute respiratory failure Confirmed Active 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 Confirmed Active Anemia Confirmed Active Cellulitis Confirmed 09/18/13 Active Chest pain Confirmed Active Chronic kidney disease (CKD) Confirmed Active Chronic osteomyelitis Confirmed Active Congestive heart failure Confirmed Active [...] knee Confirmed Active Thyroid nodule Confirmed Active Urinary catheter in place Confirmed Active Weight disorder Confirmed Active 1PCI of proximal circumflex posterolateral branch w/ BIB Diagnosis Diagnosis Type Effective Dates Health Status Clinical Service Informant Mcfadden catheter in place Discharge Diagnosis 08/10/23 Generalized weakness Discharge Diagnosis 08/10/23 Non-Specified Ambulatory dysfunction Discharge Diagnosis 08/10/23 Non-Specified Dependent for transferring location Discharge Diagnosis 08/10/23 Non-Specified Morbid obesity Discharge Diagnosis 08/10/23 Prolonged immobilization Discharge Diagnosis 08/10/23 Urinary incontinence Discharge Diagnosis 08/10/23 Body mass index [BMI] 70 or greater, adult Discharge Diagnosis 08/10/23 Non-Specified Procedures Procedure Date Related Diagnosis Body Site Status Amputated toe right 3rd 07/06/23 C ompleted Fine needle aspiration biops y of thyroid [...] ECG 35 03/28/15 Completed [facility]: A benign follicular nodule with cystic degeneration is [facility] Impression: 1. Ultrasound-guided left thyroid nodule FNA x2 3XR CALCANEUS RT IMPRESSION: No osseous erosion identified to suggest osteomyelitis. 4[facility] Impression: 1. No change in [...] may reflect air trapping. No consolidation. 6[facility] Impression: 1. Technically difficult exam but no evidence of DVT within the RLE 2. Small right popliteal cyst 7[facility] Impression: 1. Suspected mild mediastinal lymphadenopathy 2. [...] diverticulae of sigmoid. Non-bleeding int. hemorrhoids. 13[facility] Impression: 1. Mild cardiomegaly with [...] Multinodular thyroid goiter. 5. Hepatic steatosis. 17[facility] Impression: 1 Soft tissue swelling with no [...] is recommended. 27EF=65-70%, no valvular disease 28[facility] Impression: 1. The right thyroid lobe appears surgically absent 2. Multinodular residual thyroid gland as described. Overall, the size of the nodules are not significantly changed compared to the prior study 29[facility] Impression: 1. No acute bony abnormality is seen 2. arthrititc change as above, greatest at the patellofemoral articulation. 3. small joint effusion. 30next scope in 5 yrs. 31Diverticulosis in the sigmoid colon. Internal hemorrhoids. the examined portion of the ileum was normal. the examination was otherwise normal on direct retroflexion views. No specimens collected. 32[facility] Impression: 1. Hepatomegaly demonstrating fatty change 2. The spleen is normal in size 3. Normal gallbladder. No gallstones 33Generalized intersistial and bronchovascular prominence. The appearane is suggestive of basilar bronchitis. 34[facility] Impression: 1. Mild cardiac enlargement with no acute cardiopulmonary abnormality. 35[facility] Impression: 1. No arrhythmia, no acute ST changes Vital Signs Most recent to oldest [Reference Range]: 1 Height 152 cm (08/10/23 9:49 AM) Patient Weight 170.3 kg (08/10/23 9:49 AM) Body Mass Index 73.71 kg/m2 (08/10/23 9:49 AM) Social History Social History Type Response Smoking Status Never smoked cigaret melissa Sex Female [facility] Note * KARRI Camilo, Melissa Marinelli: PERFORM Event Display: [facility] Note Authored Date: TeleHealth Visit Note I have confirmed the patients name and date of . The patient has consented to this service,and I have advised the patient that this is a billable visit for which they may be subject to a copay. [ _X ] The patient has initiated this visit after he/she was informed of the availability of telehealth for this medically necessary visit. [ _ ] The provider initiated this visit after explaining the need for this visit to the patient, who has consented to this virtual visit. I am located at my: [ _X ] Office [ _ ] Home [ _ ] Other: _ The patient is located at: [ X_ ] Home [ _ ] Other: _ This visit was conducted via live audio/video technology: [ _X ] [facility] [ _ ] Zoom This visit was conducted via [ _ ] Telephone, and was not related to a visit or procedure that occurred within the past 7 days. Chief Complaint Discuss camacho lift History of Present Illness Lucy presents today to discuss getting a Camacho lift prescription [facility] She and her are requesting a prescription for a Camacho liftdue to chronic ambulatory dysfunction, generalized weakness, prolonged immobilization and severe, morbid obesity. [facility] [id number] of r ight foot s/p amputation. She has had chronicambulatory dysfunctionand difficulty ambulating,but this did get significantly worse since her hospitalization. Has had increased weakness. Sheis essentiallybedbound/bound to her lift chairwhere she is reclinedmost of the time. She isunable to walk any short distance and until recently has been able to sit upright in her lift chairby herselfand is unable to stand on her own totransfer to the bedside commode. Needs the assistance of multiple individualsto situpright and stand. Requesting the Camacho liftas this willhelp herstand upright from her lift chair and transfer herto a standing position, to the bedside commode and/or ontothe ambulance gurney when [facility]. She has been getting in-home physical therapy [facility] since coming home from the hospital in the last month. She was previously unable to sit upright at all on her own, but is now able tosit upright without assistance and without falling backwards. Previously her legs felt like they were "going to collapse,"but now when others help assist her to standing shefeels as though her legs canhelp them as well. When having to have a bowel movement it takes at least 2 other individuals to help her to a standing positionand has been has to hold a bedpan underneath her while shehas a BM. Currently has anindwelling Mcfadden catheter that was placedprior to hospital dischargedue to prolonged immobilization and urinary incontinence. She is unable to currently transferto the commodeand is unable to sit on the commode and appropriate way to prevent urine from swellingout over and down her legs. Her concern is that if she remains incontinentthis could cause urine to fall onto her lower legs and open wounds resulting in infection. She does follow with nephrology, but has not recently seen urology. Notes that she will be taking an ambulance to go to herorthopedic surgery follow-up appointment next week. On updated prescription for Camacho lift she does needan updated height and weight. Most recent height is 152 cm and her last weight at [facility] from June 2023 was 170.3 kg. Review of Systems ROS:All other systems negative, except HPI. Physical Exam Vitals & Measurements HT:152cm WT:170.3kg WT:170.300kg(Dosing) BMI:73.71 General: No acute distress. Speaking comfortably. Does not appear anxious. Morbidly obesity female lying reclined in lift chair wearing supplemental oxygen via nasal canula HEENT: Bulbar conjunctiva clear. No discharge from eyes. No nasal discharge. Lips not swollen. No visible neck masses. Skin: No rash on visible, exposed area. Neurologic: Alert and oriented x 3, able to interact. Psychiatric: Pleasant. Normal affect. Respiratory:Appears to have increased work of breathing and wearing supplemental oxygen. Able to complete full sentences. Assessment/Plan 1.Ambulatory dysfunction Lucy has chronic ambulatory dysfunction, generalized weakness, severemorbid obesity and is dependent for transferring. This is all uncontrolled and goal is improved mobilization. Camacho lift prescription was placed in chart and we will fax to her durable medical equipment provider. Encouraged her to continue within-home physical therapy at least once weekly to improve strength as well. 2.Generalized weakness As above in #1. 3.Dependent for transferring location As above in #1. 4.Morbid obesity As above in #1. 5.Urinary incontinence Patient has chronic urinary incontinence, which is likely functional in nature. She hashad prolonged immobilization and currently has a Mcfadden catheter in place. This has not been changedin the months since her hospital discharge. And new order for Mcfadden catheterplacement will be placed while she is in home nursing's care. Once she is discharged from home nursing further orders will need to come from either her vibration technician or urologist. Declines any referral at this time. Ultimate goal is to improve strength to increase ability to ambulate on her own to use a bedside commode. 6.Prolonged immobilization As above. 7.Mcfadden catheter in place As above. 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 Bilateral primary osteoarthritis of knee Bright red rectal bleeding CAD (coronary artery disease) CAD (coronary artery disease) Cellulitis Chest pain CHF (congestive heart failure) Chronic kidney disease (CKD) Chronic osteomyelitis Chronic pain of right knee Congestive heart failure Cough DIABETES MELLITUS Diastolic CHF Generalized osteoarthritis of multiple sites Glycosuria [facility]-up Hypomagnesemia Hypothyroid Hypoxia Morbid obesity Morbid obesity Obesity Thyroid nodule Urinary catheter in place Weight disorder Historical Acute colitis Acute recurrent sinusitis Parotitis Strep pharyngitis Procedure/Surgical History Amputated toe right 3rd (07/06/2023)Fine needle aspiration biopsy of thyroid (10/10/2022)Ultrasound scan of thyroid (10/10/2022)X-ray (01/10/2021)Chest x-ray (02/26/2019)CAT scan (02/24/2019)Doppler ultrasonography of vein of extremity, RLE (02/24/2019)Chest x-ray (01/20/2019 )Enteroscopy (12/11/2018)CAT scan (10/25/2018)12 lead ECG (regime/therapy) (10/25/2018)Plain chest X-ray (procedure) (10/25/2018)Doppler ultrasonography of veins of bilateral lower extremities (10/25/2018)Computed tomography of chest without contrast (procedure) (10/25/2018)Plain chest X-ray (procedure) (10/04/2018)12 lead ECG (regime/therapy) (09/19/2018)Doppler ultrasonography of vein of right lower limb (09/12/2018)Plain chest X-ray (procedure) (09/04/2018)12lead ECG (regime/therapy) (09/04/2018)CXR - Chest X-ray (08/30/2018)Plain chest X- ray (procedure) (08/30/2018)COLONOSCOPY AND BIOPSY (08/20/2018)Chest x-ray (08/16/2018)Plain chest X-ray (procedure) (08/16/2018)12 lead ECG (regime/therapy) (08/16/2018)Plain chest X-ray (procedure) (06/25/2018)12 lead ECG (regime/therapy) (06/25/2018)Ultrasound of kidney (05/15/2018)Ul trasonography of bilateral kidneys (05/15/2018)CT of abdomen and pelvis without contrast (03/25/2018)CT of chest without contrast (03/19/2018)Foot X-ray (03/15/2018)CXR - Chest X-ray (01/22/2018)Plain chest X-ray (procedure) (01/22/2018)Cardiac catheterisation (01/11/2018)CXR -Chest X- ray (12/27/2017)Plain chest X-ray (procedure) (12/27/2017)Stress echocardiography using dobutamine (11/19/2017)Polysomnography (11/14/2017)CXR - Chest X-ray (10/23/2017)Plain chest X-ray (procedure) (10/23/2017)Chest x-ray (09/20/2017)Pulmonary ventilation study (procedu re) (09/20/2017)Plain chest X-ray (procedure) (09/20/2017)Doppler (09/19/2017)Doppler ultrasound of vein of both lower extremities (09/19/2017)Echocardiogram (09/17/2017)Chest x-ray (09/17/2017)Plain chest X-ray (procedure) (09/17/2017)Ultrasound scan of thyroid (04/16/2017)Ultrasonography of soft tissue of head and neck (04/16/2017)Knee X-ray-right (04/07/2016)Colonoscopy (01/04/2016)Abdominal ultrasound complete (11/30/2015)CXR - Chest X-ray (11/26/2015)ECG (03/28/2015)Chest X-ray (03/28/2015)Thyroidectomy (2004) Medications albuterol-ipratropium(albuterol-ipratropium 2.5 mg-0.5 mg/3 mL inhalation solution), See Instructions, 5 refills dextromethorphan-guaifenesin(Mucinex DM 600 mg-30 mg oral tablet, [...] nasal(fluticasone 50 mcg/inh nasal spray), See Instructions fluticasone-salmeterol(Advair Diskus 250 mcg-50 mcg), 1 puff, PO, bid, 5 refills furosemide(furosemide 20 mg oral tablet), See Instructions levalbuterol(levalbuterol CFC free 45 mcg/inh inhalation aerosol), [...] Health Maintenance Pending(in the next year) OverDue Diabetic Eye Exam due06/16/20and every 366day Adult Influenza Vaccine due01/19/23and every 1year Due Diabetes Management A1c due07/07/23and every 366day Adult COVID-19 Vaccination due08/10/23Unknown Frequency Adult Social Determinants of Health Screening due08/10/23Unknown Frequency Breast Cancer Screening due08/10/23Unknown Frequency Hepatitis C Screening due08/10/23One-time only Medicare Annual Wellness Visit due08/10/23and every 1year Osteoporosis Screening due08/10/23One-time only Pneumococcal Vaccine Older Adults due08/10/23One-time only Shingles Vaccine due08/10/23One-time only Satisfied(in the past 1 year) Satisfied Body Mass Index on08/10/23.Satisfied by HEIDI Licea Andrew E Patient Care team information Care Team Personnel Name: SCOTT Wheatley Janet Griffith Position: Nurse Pract - Pulmonary Med Member Role: Lifetime Relationship Address: Address: [address] [place] [id number] [place] Name: MD Elif, Aiyana Brown Position: Physician - Family Med Member Role: Primary Care Provider Address: Address: [address] [place] [address], [place] [address] Care Team Related Persons Name: NING LOU Address: [facility] Address: home [address] [place] [address], [place] [id number] [place] Name: NING LOU Address: home [address] [place] [place], [place] [id number]
--- OUTSIDE RECORDS SUMMARY | 2023-09-11 08:44 | External Medical Summary | Summary of Care ---
Author Name Unknown Organization [facility] Address [address] [facility] [address] Phone [phone] Care Team Providers Care Belt Repairer Name Role Phone Aiyana Asencio MD Primary Care Provider [phone] Encounter Details Date Type Department Care Team (Late st Contact Info) Description 09/03/2023 Orders Only PATIENT PORTAL DO NOT DELETE THIS DEPT USED BY [place] ALFARO [id number] Allergies Active Allergy Reactions Criticality Noted Date Comments Albuterol 03/13/2023 Other Reaction(s): itching Ciprofloxacin Rash 06/11/2019 Headache, Made left arm really heavy Amlodipine Besylate Edema Other 05/06/2019 Legs Other - Drugs 06/01/2005 CAT SCAN DYE ALLERGY!!!!!!!!!!!!!!!!!!!! !!! HIVES,THROAT CLOSES Shellfish Allergy 12/09/2015 Sulfites Abdominal pain 10/13/2009 documented as of this encounter (statuses as of 09/03/2023) Medications Medication Sig Dispensed Refills Start Date [...] mouth continuous. 0 Active Ergocalciferol 1.25 MG (91852 UT) Oral Capsule (Vitamin D2(Drisdol)) Take 1 Capsule by mouth. 0 08/13/2020 Active Ferrous Sulfate 325 (65 Fe) MG Oral Tablet (FeroSul) Take 1 Tablet by mouth in the morning. 0 03/29/2022 Active documented as of this encounter (statuses as of 09/03/2023) Active Problems Problem Noted Date Diagnosed Date [...] as of this encounter (statuses as of 09/03/2023) Immunizations Name Administration Dates Next Due Seasonal Influenza, PF, 6 M & above, IM , (FluLaval or Fluzone) 05/06/2019 Seasonal Influenza, Split, IIV3, With Preserve, [...] Care Team (Late st Contact Info) Description 09/04/2023 9:00 AM EST Laboratory Lab [facility] [address] [place] [address] [facility], [facility] Mobile Home Draw [address] [place] [address] 09/11/2023 9:00 AM EST Laboratory Lab [facility] [address] [place] [address] Gm, Gm Mobile Home Draw [address] [place] [address] 09/18/2023 9:00 AM EST Laboratory Lab Mobile [facility] [address] [place] [address] Gm, [facility] Mobile Home Draw [address] [place] [address] 09/25/2023 9:00 AM EST Laboratory Lab Mobile [facility] [address] [place] [address] [facility], [facility] Mobile Home Draw [address] [place] [address] 10/02/2023 9:00 AM EDT Laboratory Lab Mobile [facility]lebot[facility] [address] [place] [address] [facility], [facility] Mobile Home Draw [address] [place] [address] Scheduled Procedures Name Priority Associated Diagnoses Date/Ti [...] 03/29/2021 03/29/2016, 05/31/2015 TSH 10/06/2021 10/06/2020, 09/10/2009 COVID-19 Vaccine (2 - 2022-24 season) 2023 09/07/2020 Influenza Vaccine (FLU shot) (#1) 2023 04/05/2020, 05/06/2019, 04/21/2018 COLONOSCOPY-EVERY 5 YRS AGES 18-100 10/30/2023 10/29/2018, 08/20/2018, 08/20/2018, Additional history exists GFR 07/18/2024 07/18/2023, 05/24, 10/07/2020, Additional history exists GARDASIL-HPV IMMUNIZATION SERIES Aged [...] the patient have Health Care Power of Patient Service Coordinator? No Care Teams Belt Repairer Relationship Specialty Start Date End Date Aiyana Asencio MD [facility] [address] [place] [address] PCP - General Family Medicine 08/23/18 documented as of this encounter
--- OUTSIDE RECORDS SUMMARY | 2023-09-11 08:44 | External Medical Summary ---
Author Name Unknown Address Unknown Organization [id number]:[facility] [address] - [address] [place] [address] Laboratory Report Ordering Provider Test Date Status CHRISTIANO MCNEIL 08/14/2023 10:08:00 Final Observation Date Value Abnormality Reference (Units ) Status SYNC LEUKOCYTES IN BLOOD BY AUTOMATED COUNT 08/14/2023 10:08:00 7.09 4.00-10.80 (K/uL) Final Segs 08/14/2023 10:08:00 63.7 40.0-75.0 (%) Final Lymphs % 08/14/2023 10:08:00 17.5 Below low normal 18.0-42.0 (%) Final Monos 08/14/2023 10:08:00 13.1 Above high normal 1.0-11.0 (%) Final Eosinophils 08/14/2023 10:08:00 5.4 0.0-6.0 (%) Final Basos 08/14/2023 10:08:00 0.3 0.0-2.0 (%) Final Absolute Segs 08/14/2023 10:08:00 4.52 1.80-7.70 (K/uL) Final Lymphs, absolute 08/14/2023 10:08:00 1.24 1.00-4.80 (K/ul) Final Monos, Abs 08/14/2023 10:08:00 0.93 0.00-1.10 (K/uL) Final Eos, Abs 08/14/2023 10:08:00 0.38 0.00-0.70 (K/uL) Final Basos, Abs 08/14/2023 10:08:00 0.02 0.00-0.20 (K/uL) Final Performing Location [facility] [address] - [address] [place] [address]
--- OUTSIDE RECORDS SUMMARY | 2023-09-11 08:44 | External Medical Summary ---
Author Name Unknown Address Unknown Organization K09:[facility] [place] [address] Laboratory Report Ordering Provider Test Date Status CHRISTIANO MCNEIL 09/03/2023 14:29:21 Final Observation Date Value Abnormality Reference (Units ) Status WBC, Total 09/03/2023 14:29:21 5.31 4.00-10.8 0 (K/uL) Final RBC 09/03/2023 14:29:21 3.87 3.85-5.15 (M/uL) Final Hemoglobin 09/03/2023 14:29:21 9.7 Below low normal 12 .0-15.3 (g/dL) Final HCT 09/03/2023 14:29:21 33.5 Below low normal 36. 0-45.2 (%) Final MCV 09/03/2023 14:29:21 86.6 81.5-97.5 (fL) Final MCH 09/03/2023 14:29:21 25.1 27.0-34.0 (pg) Final MCHC 09/03/2023 14:29:21 29.0 32.0-36.0 (g/dL) Final RDW 09/03/2023 14:29:21 23.4 11.5-15.5 (%) Final Platelets 09/03/2023 14:29:21 175 140-400 (K /uL) Final MPV 09/03/2023 14:29:21 10.4 6.6-11.1 ( fL) Final Performing Location [facility] [place] [address]
--- OUTSIDE RECORDS SUMMARY | 2023-09-11 08:44 | External Medical Summary ---
Author Name Unknown Address Unknown Organization [id number]:[facility] [place] [address] [place] [address] Laboratory Report Ordering Provider Test Date Status CHRISTIANO MCNEIL 07/31/2023 09:35:00 Final Observation Date Value Abnormality Reference (Units ) Status WBC, Total 07/31/2023 09:35:00 6.14 4.00-10.80 (K/uL) Final RBC 07/31/2023 09:35:00 3.93 3.85-5.15 (M/uL) Final Hemoglobin 07/31/2023 09:35:00 9.7 Below low normal 12.0-15.3 (g/dL) Final HCT 07/31/2023 09:35:00 34.9 Below low normal 36.0-45.2 (%) Final MCV 07/31/2023 09:35:00 88.8 81.5-97.5 (fL) Final MCH 07/31/2023 09:35:00 24.7 27.0-34.0 (pg) Final MCHC 07/31/2023 09:35:00 27.8 32.0-36.0 (g/dL) Final RDW 07/31/2023 09:35:00 23.3 11.5-15.5 (%) Final Platelets 07/31/2023 09:35:00 205 140-400 (K/uL) Final MPV 07/31/2023 09:35:00 11.1 6.6-11.1 (fL) Final Nucleated erythrocytes/100 leukocytes [Ratio] in Blood by Automated count 07/31/2023 09:35:00 0 <=0 (/100 WBCs) Final Performing Location [facility] [place] [address] [place] [address]
--- OUTSIDE RECORDS SUMMARY | 2023-09-11 08:44 | External Medical Summary ---
Author Name Unknown Address Unknown Organization K09:[facility] [address] [place] [address] Laboratory Report Ordering Provider Test Date Status CHRISTIANO MCNEIL 09/03/2023 14:28:53 Final Observation Date Value Abnormality Reference (Units ) Status BUN 09/03/2023 14:28:53 26 Above high normal 6-20 (mg/dL) Final Creatinine 09/03/2023 14:28:53 1.4 Above high normal 0.5-1.0 (mg/dL) Final Glomerular filtration rate/1.73 sq M.predicted [Volume Rate/Area] in Serum, Plasma or Blood by Creatinine-based formula (CKD-EPI) 09/03/2023 14:28:53 41 Below low normal >=60 (mL/min) Final eGFR is calculated based on the CKD-EPI 2020 equation SODIUM 09/03/2023 14:28:53 139 135-146 (m mol/L) Final Potassium 09/03/2023 14:28:53 3.2 Below low normal 3.5 -5.1 (mmol/L) Final Cl 09/03/2023 14:28:53 98 98-107 (mm ol/L) Final CO2 09/03/2023 14:28:53 31 22-32 (mmo l/L) Final Anion gap 09/03/2023 14:28:53 10 7-15 (mmol /L) Final Glucose 09/03/2023 14:28:53 202 Above high normal 70 -120 (mg/dL) Final Albumin 09/03/2023 14:28:53 3.1 Below low normal 3.8 -5.0 (g/dL) Final AST (Aspartate aminotransferase) 09/03/2023 14:28:53 21 10-35 (U/L) Fin al Alk Phos 09/03/2023 14:28:53 83 35-130 (U/ L) Final Bilirubin, Total 09/03/2023 14:28:53 1.3 Above high no rmal <=1.2 (mg/dL) Final Calcium 09/03/2023 14:28:53 9.2 8.4-10.2 ( mg/dL) Final Protein 09/03/2023 14:28:53 7.6 6.0-8.3 (g /dL) Final ALT (Alanine aminotransferase) 09/03/2023 14:28:53 <5 Below low normal 10-35 (U/L) Final Performing Location [facility] [address] [place] [address]
--- OUTSIDE RECORDS SUMMARY | 2023-09-11 08:44 | External Medical Summary ---
Author Name Unknown Address Unknown Organization [id number]:[facility] [place] [address] - [address] [place] [address] Laboratory Report Ordering Provider Test Date Status CHRISTIANO MCNEIL 08/21/2023 11:34:00 Final Observation Date Value Abnormality Reference (Units ) Status SYNC LEUKOCYTES IN BLOOD BY AUTOMATED COUNT 08/21/2023 11:34:00 6.60 4.00-10.80 (K/uL) Final Segs 08/21/2023 11:34:00 63.7 40.0-75.0 (%) Final Lymphs % 08/21/2023 11:34:00 17.9 Below low normal 18.0-42.0 (%) Final Monos 08/21/2023 11:34:00 13.2 Above high normal 1.0-11.0 (%) Final Eosinophils 08/21/2023 11:34:00 4.7 0.0-6.0 (%) Final Basos 08/21/2023 11:34:00 0.5 0.0-2.0 (%) Final Absolute Segs 08/21/2023 11:34:00 4.21 1.80-7.70 (K/uL) Final Lymphs, absolute 08/21/2023 11:34:00 1.18 1.00-4.80 (K/ul) Final Monos, Abs 08/21/2023 11:34:00 0.87 0.00-1.10 (K/uL) Final Eos, Abs 08/21/2023 11:34:00 0.31 0.00-0.70 (K/uL) Final Basos, Abs 08/21/2023 11:34:00 0.03 0.00-0.20 (K/uL) Final Performing Location [facility] [address] - [address] [place] [address]
--- OUTSIDE RECORDS SUMMARY | 2023-09-11 08:44 | External Medical Summary ---
Author Name Unknown Address Unknown Organization [id number]:[facility] [place] [address] [place] [address] Laboratory Report Ordering Provider Test Date Status CHRISTIANO MCNEIL 09/03/2023 14:28:53 Final Observation Date Value Abnormality Reference (Units ) Status Iron 09/03/2023 14:28:53 36 33-151 (ug/dL) Final Iron-binding capacity 09/03/2023 14:28:53 250 250-425 (ug/dL) Final Transferrin Sat % 09/03/2023 14:28:53 14 Below low normal 15-55 (%) Final Performing Location LAB[facility]ATORY [facility] - [address] [place] [address]
--- OUTSIDE RECORDS SUMMARY | 2023-09-11 08:44 | External Medical Summary ---
Author Name Unknown Address Unknown Organization K01:LABORATORY [facility] [place] - [address] [place] [address] Laboratory Report Ordering Provider Test Date Status CHRISTIANO MCNEIL 09/03/2023 14:28:53 Final Observation Date Value Abnormality Reference (Units ) Status Transferrin 09/03/2023 14:28:53 186 Below low normal 2 00-360 (mg/dL) Final Performing Location [facility] - [address] [place] [address]
--- OUTSIDE RECORDS SUMMARY | 2023-09-11 08:44 | External Medical Summary ---
Author Name Unknown Address Unknown Organization [id number]:[facility]ATORY [facility] [place] [address] - [address] [place] [address] Laboratory Report Ordering Provider Test Date Status CHRISTIANO MCNEIL 08/28/2023 10:28:00 Final Observation Date Value Abnormality Reference (Units ) Status WBC, Total 08/28/2023 10:28:00 5.67 4.00-10.8 0 (K/uL) Final RBC 08/28/2023 10:28:00 3.93 3.85-5.15 (M/uL) Final Hemoglobin 08/28/2023 10:28:00 9.9 Below low normal 12 .0-15.3 (g/dL) Final HCT 08/28/2023 10:28:00 33.7 Below low normal 36. 0-45.2 (%) Final MCV 08/28/2023 10:28:00 85.8 81.5-97.5 (fL) Final MCH 08/28/2023 10:28:00 25.2 27.0-34.0 (pg) Final MCHC 08/28/2023 10:28:00 29.4 32.0-36.0 (g/dL) Final RDW 08/28/2023 10:28:00 22.4 11.5-15.5 (%) Final Platelets 08/28/2023 10:28:00 201 140-400 (K /uL) Final MPV 08/28/2023 10:28:00 10.5 6.6-11.1 ( fL) Final Performing Location LABORATORY [facility] [place] [address] - [address] [place] [address]
--- OUTSIDE RECORDS SUMMARY | 2023-09-11 08:44 | External Medical Summary ---
Author Name Unknown Address Unknown Organization K01:[facility]ATORY [place] - [address] [place] [address] Laboratory Report Ordering Provider Test Date Status CHRISTIANO MCNEIL 09/03/2023 14:28:53 Final Observation Date Value Abnormality Reference (Units ) Status Vitamin B12 09/03/2023 14:28:53 165 750-8279 (pg/mL) Final Performing Location [facility] - [address] [place] [address]
--- OUTSIDE RECORDS SUMMARY | 2023-09-11 08:44 | External Medical Summary ---
Author Name Unknown Address Unknown Organization [id number]:[facility]ATORY [facility] [address] - [address] [place] [address] Laboratory Report Ordering Provider Test Date Status CHRISTIANO MCNEIL 07/24/2023 11:17:00 Final Observation Date Value Abnormality Reference (Units ) Status WBC, Total 07/24/2023 11:17:00 7.38 4.00-10.8 0 (K/uL) Final RBC 07/24/2023 11:17:00 3.79 3.85-5.15 (M/uL) Final Hemoglobin 07/24/2023 11:17:00 9.5 Below low normal 12 .0-15.3 (g/dL) Final HCT 07/24/2023 11:17:00 32.6 Below low normal 36. 0-45.2 (%) Final MCV 07/24/2023 11:17:00 86.0 81.5-97.5 (fL) Final MCH 07/24/2023 11:17:00 25.1 27.0-34.0 (pg) Final MCHC 07/24/2023 11:17:00 29.1 32.0-36.0 (g/dL) Final RDW 07/24/2023 11:17:00 23.9 11.5-15.5 (%) Final Platelets 07/24/2023 11:17:00 222 140-400 (K /uL) Final MPV 07/24/2023 11:17:00 10.3 6.6-11.1 ( fL) Final Performing Location LABORATORY [facility] [place] 57[address] - [address] [place] [address]
--- OUTSIDE RECORDS SUMMARY | 2023-09-11 08:44 | External Medical Summary ---
Author Name Unknown Address Unknown Organization K01:[facility] [place] [address] [place] [address] Laboratory Report Ordering Provider Test Date Status CHRISTIANO MCNEIL 07/31/2023 09:35:00 Final Observation Date Value Abnormality Reference (Units ) Status Ovalocytes [Presence] in Blood by Light microscopy 07/31/2023 09:35:00 Moderate Abnormal None Seen Final Performing Location [facility] - [address] [place] [address]
--- OUTSIDE RECORDS SUMMARY | 2023-09-11 08:44 | External Medical Summary ---
Author Name Unknown Address Unknown Organization K01:LABORATORY [facility] - [address] [facility] [address] Laboratory Report Ordering Provider Test Date Status KIRILL MCNEILROCK 09/03/2023 14:28:53 Final Observation Date Value Abnormality Reference (Units ) Status Ferritin 09/03/2023 14:28:53 68 13-150 (ng /mL) Final Postmenopausal women have hi gher ferritin levels than pre-menopausal women. The above reference interval is based on pre-menopausal women. Performing Location [facility] - [address] [place] [address]
--- OUTSIDE RECORDS SUMMARY | 2023-09-11 08:44 | External Medical Summary ---
Author Name Unknown Address Unknown Organization [facility] - [address] [place] [address] Laboratory Report Ordering Provider Test Date Status CHRISTIANO MCNEIL 08/28/2023 10:28:00 Final Observation Date Value Abnormality Reference (Units ) Status SYNC LEUKOCYTES IN BLOOD BY AUTOMATED COUNT 08/28/2023 10:28:00 5.67 4.00-10.80 (K/uL) Final Segs 08/28/2023 10:28:00 62.8 40.0-75.0 (%) Final Lymphs % 08/28/2023 10:28:00 17.3 Below low normal 18.0-42.0 (%) Final Monos 08/28/2023 10:28:00 13.9 Above high normal 1.0-11.0 (%) Final Eosinophils 08/28/2023 10:28:00 5.6 0.0-6.0 (%) Final Basos 08/28/2023 10:28:00 0.4 0.0-2.0 (%) Final Absolute Segs 08/28/2023 10:28:00 3.56 1.80-7.70 (K/uL) Final Lymphs, absolute 08/28/2023 10:28:00 0.98 Below low normal 1.00-4.80 (K/ul) Final Monos, Abs 08/28/2023 10:28:00 0.79 0.00-1.10 (K/uL) Final Eos, Abs 08/28/2023 10:28:00 0.32 0.00-0.70 (K/uL) Final Basos, Abs 08/28/2023 10:28:00 0.02 0.00-0.20 (K/uL) Final Performing Location LAB[facility]ATORY [facility] [place] [address] - [address] [place] [address]
--- OUTSIDE RECORDS SUMMARY | 2023-09-11 08:44 | External Medical Summary ---
Author Name Unknown Address Unknown Organization K0G:LABORATORY [facility] 57[address] - [address] [place] [address] Laboratory Report Ordering Provider Test Date Status CHRISTIANO MCNEIL 08/09/2023 11:26:00 Final Observation Date Value Abnormality Reference (Units ) Status SYNC LEUKOCYTES IN BLOOD BY AUTOMATED COUNT 08/09/2023 11:26:00 6.21 4.00-10.80 (K/uL) Final Segs 08/09/2023 11:26:00 65.7 40.0-75.0 (%) Final Lymphs % 08/09/2023 11:26:00 15.6 Below low normal 18.0-42.0 (%) Final Monos 08/09/2023 11:26:00 12.9 Above high normal 1.0-11.0 (%) Final Eosinophils 08/09/2023 11:26:00 5.5 0.0-6.0 (%) Final Basos 08/09/2023 11:26:00 0.3 0.0-2.0 (%) Final Absolute Segs 08/09/2023 11:26:00 4.08 1.80-7.70 (K/uL) Final Lymphs, absolute 08/09/2023 11:26:00 0.97 Below low normal 1.00-4.80 (K/ul) Final Monos, Abs 08/09/2023 11:26:00 0.80 0.00-1.10 (K/uL) Final Eos, Abs 08/09/2023 11:26:00 0.34 0.00-0.70 (K/uL) Final Basos, Abs 08/09/2023 11:26:00 0.02 0.00-0.20 (K/uL) Final Performing Location LABORATORY [facility] 57[address] - [address] [place] [address]
--- OUTSIDE RECORDS SUMMARY | 2023-09-11 08:44 | External Medical Summary ---
Author Name Unknown Address Unknown Organization K0G:[facility] [place] [address] - [address] [place] [address] Laboratory Report Ordering Provider Test Date Status CHRISTIANO MCNEIL 07/24/2023 11:17:00 Final Observation Date Value Abnormality Reference (Units ) Status SYNC LEUKOCYTES IN BLOOD BY AUTOMATED COUNT 07/24/2023 11:17:00 7.38 4.00-10.80 (K/uL) Final Segs 07/24/2023 11:17:00 69.5 40.0-75.0 (%) Final Lymphs % 07/24/2023 11:17:00 14.4 Below low normal 18.0-42.0 (%) Final Monos 07/24/2023 11:17:00 10.4 1.0-11.0 (%) Final Eosinophils 07/24/2023 11:17:00 5.3 0.0-6.0 (%) Final Basos 07/24/2023 11:17:00 0.4 0.0-2.0 (%) Final Absolute Segs 07/24/2023 11:17:00 5.13 1.80-7.70 (K/uL) Final Lymphs, absolute 07/24/2023 11:17:00 1.06 1.00-4.80 (K/ul) Final Monos, Abs 07/24/2023 11:17:00 0.77 0.00-1.10 (K/uL) Final Eos, Abs 07/24/2023 11:17:00 0.39 0.00-0.70 (K/uL) Final Basos, Abs 07/24/2023 11:17:00 0.03 0.00-0.20 (K/uL) Final Performing Location LABORATORY [facility] 57[address] 0 - [address] [place] [address]
--- OUTSIDE RECORDS SUMMARY | 2023-09-11 08:44 | External Medical Summary ---
Author Name Unknown Address Unknown Organization K01:[facility] [place] [address] [place] [address] Laboratory Report Ordering Provider Test Date Status CHRISTIANO MCNEIL 07/31/2023 09:35:00 Final Observation Date Value Abnormality Reference (Units ) Status SYNC LEUKOCYTES IN BLOOD BY AUTOMATED COUNT 07/31/2023 09:35:00 6.14 4.00-10.80 (K/uL) Final Segs 07/31/2023 09:35:00 64.6 40.0-75.0 (%) Final Lymphs % 07/31/2023 09:35:00 17.6 Below low normal 18.0-42.0 (%) Final Monos 07/31/2023 09:35:00 11.6 Above high normal 1.0-11.0 (%) Final Eosinophils 07/31/2023 09:35:00 5.4 0.0-6.0 (%) Final Basos 07/31/2023 09:35:00 0.5 0.0-2.0 (%) Final Immature Granulocyte, Percent 07/31/2023 09:35:00 0.3 0.0-2.0 (%) Final Absolute Segs 07/31/2023 09:35:00 3.97 1.80-7.70 (K/uL) Final Lymphs, absolute 07/31/2023 09:35:00 1.08 1.00-4.80 (K/ul) Final Monos, Abs 07/31/2023 09:35:00 0.71 0.00-1.10 (K/uL) Final Eos, Abs 07/31/2023 09:35:00 0.33 0.00-0.70 (K/uL) Final Basos, Abs 07/31/2023 09:35:00 0.03 0.00-0.20 (K/uL) Final Immature Granulocytes, Number 07/31/2023 09:35:00 0.02 0.00-0.20 (K/uL) Final Performing Location [facility] [place] [facility] [place] [address]
--- OUTSIDE RECORDS SUMMARY | 2023-09-11 08:44 | External Medical Summary ---
Author Name Unknown Address Unknown Organization K09:LABORATORY [place] [address] Laboratory Report Ordering Provider Test Date Status CHRISTIANO MCNEIL 09/03/2023 14:29:21 Final Observation Date Value Abnormality Reference (Units ) Status SYNC LEUKOCYTES IN BLOOD BY AUTOMATED COUNT 09/03/2023 14:29:21 5.31 4.00-10.80 (K/uL) Final Segs 09/03/2023 14:29:21 68.2 40.0-75.0 (%) Final Lymphs % 09/03/2023 14:29:21 17.1 Below low normal 18.0-42.0 (%) Final Monos 09/03/2023 14:29:21 9.6 1.0-11.0 (%) Final Eosinophils 09/03/2023 14:29:21 4.7 0.0-6.0 (%) Final Basos 09/03/2023 14:29:21 0.4 0.0-2.0 (%) Final Absolute Segs 09/03/2023 14:29:21 3.62 1.80-7.70 (K/uL) Final Lymphs, absolute 09/03/2023 14:29:21 0.91 Below low normal 1.00-4.80 (K/ul) Final Monos, Abs 09/03/2023 14:29:21 0.51 0.00-1.10 (K/uL) Final Eos, Abs 09/03/2023 14:29:21 0.25 0.00-0.70 (K/uL) Final Basos, Abs 09/03/2023 14:29:21 0.02 0.00-0.20 (K/uL) Final Performing Location [place] [address]
--- OUTSIDE RECORDS SUMMARY | 2023-09-11 08:45 | External Medical Summary ---
Author Name Unknown Address Unknown Organization K01:LABORATORY [facility] [place] - [address] [facility] [address] Laboratory Report Ordering Provider Test Date Status KIRILL MCNEILROCK 07/18/2023 13:34:52 Final Observation Date Value Abnormality Reference (Units ) Status Ferritin 07/18/2023 13:34:52 67 13-150 (ng /mL) Final Postmenopausal women have hi gher ferritin levels than pre-menopausal women. The above reference interval is based on pre-menopausal women. Performing Location LAB[facility] - [address] [place] [address]
--- OUTSIDE RECORDS SUMMARY | 2023-09-11 08:45 | External Medical Summary ---
Author Name Unknown Address Unknown Organization K01:[facility] [place] [address] [place] [address] Laboratory Report Ordering Provider Test Date Status CHRISTIANO MCNEIL 07/18/2023 13:34:52 Final Observation Date Value Abnormality Reference (Units ) Status Iron 07/18/2023 13:34:52 32 Below low normal 33-151 (ug/dL) Final Iron-binding capacity 07/18/2023 13:34:52 264 250-425 (ug/dL) Final Transferrin Sat % 07/18/2023 13:34:52 12 Below low normal 15-55 (%) Final Performing Location [facility] [place] [address] [place] [id number]
--- OUTSIDE RECORDS SUMMARY | 2023-09-11 08:45 | External Medical Summary ---
Author Name Unknown Address Unknown Organization [id number]:[facility] [address] [place] [id number] Laboratory Report Ordering Provider Test Date Status CHRISTIANO MCNEIL 07/18/2023 13:33:31 Final Observation Date Value Abnormality Reference (Units ) Status WBC, Total 07/18/2023 13:33:31 7.53 4.00-10.8 0 (K/uL) Final RBC 07/18/2023 13:33:31 3.92 3.85-5.15 (M/uL) Final Hemoglobin 07/18/2023 13:33:31 9.6 Below low normal 12 .0-15.3 (g/dL) Final HCT 07/18/2023 13:33:31 33.7 Below low normal 36. 0-45.2 (%) Final MCV 07/18/2023 13:33:31 86.0 81.5-97.5 (fL) Final MCH 07/18/2023 13:33:31 24.5 27.0-34.0 (pg) Final MCHC 07/18/2023 13:33:31 28.5 32.0-36.0 (g/dL) Final RDW 07/18/2023 13:33:31 24.1 11.5-15.5 (%) Final Platelets 07/18/2023 13:33:31 243 140-400 (K /uL) Final MPV 07/18/2023 13:33:31 11.1 6.6-11.1 ( fL) Final Performing Location [facility] [place] [id number]
--- OUTSIDE RECORDS SUMMARY | 2023-09-11 08:45 | External Medical Summary ---
Author Name Unknown Address Unknown Organization K01:[facility] [place] [address] [facility] [place] [address] Laboratory Report Ordering Provider Test Date Status CHRISTIANO MCNEIL 07/18/2023 13:34:52 Final Observation Date Value Abnormality Reference (Units ) Status BUN 07/18/2023 13:34:52 29 Above high normal 6-20 (mg/dL) Final Creatinine 07/18/2023 13:34:52 1.6 Above high normal 0.5-1.0 (mg/dL) Final Glomerular filtration rate/1.73 sq M.predicted [Volume Rate/Area] in Serum, Plasma or Blood by Creatinine-based formula (CKD-EPI) 07/18/2023 13:34:52 35 Below low normal >=60 (mL/min) Final eGFR is calculated based on the CKD-EPI 2020 equation SODIUM 07/18/2023 13:34:52 138 135-146 (m mol/L) Final Potassium 07/18/2023 13:34:52 4.5 3.5-5.1 (m mol/L) Final Cl 07/18/2023 13:34:52 100 98-107 (mm ol/L) Final CO2 07/18/2023 13:34:52 28 22-32 (mmo l/L) Final Anion gap 07/18/2023 13:34:52 10 7-15 (mmol /L) Final Glucose 07/18/2023 13:34:52 198 Above high normal 70 -120 (mg/dL) Final Albumin 07/18/2023 13:34:52 3.3 Below low normal 3.8 -5.0 (g/dL) Final AST (Aspartate aminotransferase) 07/18/2023 13:34:52 23 10-35 (U/L) Fin al Alk Phos 07/18/2023 13:34:52 107 35-130 (U/ L) Final Bilirubin, Total 07/18/2023 13:34:52 1.2 <=1 .2 (mg/dL) Final Calcium 07/18/2023 13:34:52 9.1 8.4-10.2 ( mg/dL) Final Protein 07/18/2023 13:34:52 7.4 6.0-8.3 (g /dL) Final ALT (Alanine aminotransferase) 07/18/2023 13:34:52 16 10-35 (U/L) Surendra moscoso Performing Location [facility] [place] [facility] [address]
--- OUTSIDE RECORDS SUMMARY | 2023-09-11 08:45 | External Medical Summary | Continuity of Care Document ---
Author Name Unknown Organization [facility] [address] [facility] Address [address] [place], [place] [id number] Care Team Providers Care Doll Dresser Name Role Phone Aiyana Asencio Primary Care Physician [phone] [id number] Date(s): 07/18/23 - 07/18/[address] [facility] [address], [address] [place] [address] [phone] Encounter Diagnosis Chronic osteomyelitis(Discharge Diagnosis) - 07/18/23 CHF (congestive heart failure)(Discharge Diagnosis) - 07/18/23 Anemia(Discharge Diagnosis) - 07/18/[address](Discharge Diagnosis) - 07/19/23 Obesity(Discharge Diagnosis) - 07/18/23 Discharge Disposition: Home or Self Care Attending Physician: MD Asencio Amy L Allergies, Adverse Reactions, Alerts Substance Reaction Severity Status ciprofloxacin nausea, body aches, joint pain and cramp ing Active albuterol itching Active sulfites itching Active IVP dye rash and swelling Active seafood hives, throat closed, SOB Ac tive Immunizations Given and Recorded Vaccine Date Status [...] day to 6 TIMES A DAY, Pharmacy [address] Start Date: 07/18/21 Status: Ordered Advair Diskus 250 mcg-50 mcg Start: 05/23/23 16:59:00 EDT, 1 puff, PO, bid, Disp# 1 each, Refills: 5, Note to Pharmacy: inhale 1puff PO twice a day for shortness of breath, Pharmacy: [facility] #[id number] Start Date: 05/23/23 Status: Ordered albuterol-ipratropium 2.5 mg-0.5 mg/3 mL inhalation solution Start: 05/23/23 16:59:00 EDT, See Instructions, Disp# 90 mL, Refills: 5, 3 ML INHALED THREE TIMES ADAY NEEDED FOR SHORTNESS OF BREATH OR WHEEZING, Pharmacy: [facility] #[id number] Start Date: 05/23/23 Status: Ordered BD 1 mL Ultra-Fine Insulin Syringe 30G x 1/2" Start: 07/11/17 10:06:00, See Instructions, Disp# 3 box, Refills: 5, use QID, Dx : E11.9, Pharmacy:[id number] Start Date: 07/11/17 Status: Ordered EpiPen 2-Andres 0.3 mg injectable kit Start: 09/10/15 19:58:00, 0.3 mg =, IM, ONCE, Disp# 1 unit, Refills: 0, Pharmacy: [id number] Start Date: 09/10/15 Status: Ordered FeroSul 325 mg (65 mg elemental iron) oral tablet Start: 03/29/22 13:05:00 EDT, See Instructions, Disp# 60 tab, Refills: 5, take 1 tablet by mouth twice a day, Pharmacy: [facility] #[id number] Start Date: 03/29/22 Status: Ordered fluticasone 50 mcg/inh nasal spray See Instructions, Disp# 16 g, Refills: 5, instill 2 sprays into each nostril once daily, [facility]: [facility] Start Date: 09/13/20 Status: Ordered furosemide 20 mg oral tablet Start: 12/11/22 8:21:00 EDT, See Instructions, Disp# 60 tab, Refills: 11, take 2 tablets by mouth once daily, [facility]: [id number] Start Date: 12/11/22 Status: Ordered glucose test strips Start: 12/14/17 9:37:57 EDT, See Instructions, Disp# 200 unit, Refills: 11, Ultra One touch; test QID to 6 times a day DX : E11.65, Pharmacy: [facility] Start Date: 12/14/17 Status: Ordered Humalin UV 500 Start: 08/30/18 15:59:00 EST, Humalin UV 500, Note to Pharmacy: 60 units in AM & lunch, 70 dinner Start Date: 08/30/18 Status: Ordered levalbuterol CFC free 45 mcg/inh inhalation aerosol Start: 05/23/23 16:59:00 EDT, 2 puff, inhaled, q4h, Disp# 2 each, Refills: 5, PRN: as needed for wheezing, Pharmacy: [facility] #[id number] Start Date: 05/23/23 Status: Ordered levothyroxine 112 mcg (0.112 mg) oral tablet take 1 tablet by mouth once daily Start Date: 09/20/22 Status: Ordered montelukast 10 mg oral tablet Start: 10/16/22 9:11:00 EDT, See Instructions, Disp# 30 tab, Refills: 5, take 1 tablet by mouth every evening, Pharmacy: [facility] #[id number] Start Date: 10/16/22 Status: Ordered Mucinex DM 600 mg-30 mg oral tablet, extended release Start: 04/20/20 7:51:00 EDT, 1 tab, PO, q12h, PRN: congestion Start Date: 04/20/20 Status: Ordered Nitrostat 0.4 mg sublingual tablet Start: 03/10/21 16:35:00 EDT, 1 tab, SL, q5min, Disp# 25 tab, Refills: 1, PRN: as needed for chest pain, [facility]: [facility] Start Date: 03/10/21 Stop Date: 05/09/21 Status: Ordered ONETOUCH ULTRA BLUE TEST STRP ONETOUCH ULTRA BLUE TEST STRP, See Instructions, Disp# 200 strip, Refills: 6, TEST four times a dayto 6 TIMES A DAY, [facility] Start Date: 05/11/20 Status: Ordered Oxygen Start: [...] take 1 tablet by mouth atbedtime, Pharmacy: [facility] #[id number] Start Date: 02/09/23 Status: Ordered traMADol 50 mg oral tablet Start: 06/12/23 9:55:00 EST, 1 tab, PO, q6h, Disp# 120 tab, Refills: 5, PRN: as needed for pain, Pharmacy: [facility] #[id number] Start Date: 06/12/23 Stop Date: 12/09/23 Status: Ordered triamcinolone 0.1% topical cream Start: 10/30/22 15:05:00 EDT, 1 appl, topical, bid, Disp# 454 g, Pharmacy: [facility] #[id number] Start Date: 10/30/22 Stop Date: 11/13/22 Status: Ordered Mental Status 07/18/23 Barriers to Learning one year None evide nt Mandatory Health Literacy Documentation Yes Health Literacy 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 Barriers N ever Primary Language Frisian Problem List Condition Confirmation Course Effective Dates [...] Effective Dates Health Status Clinical Service Informant Obesity Discharge Diagnosis 07/18/23 Non-Specified Chronic osteomyelitis Discharge Diagnosis 07/18/23 Non-Specified CHF (congestive heart failure) Discharge Diagnosis 07/18/23 Non-Specified Anemia Discharge Diagnosis 07/18/23 Non-Specified Urinary catheter in place Discharge Diagnosis 07/19/23 Non-Specified Procedures Procedure Date Related Diagnosis Body [...] ECG 35 03/28/15 Completed Thyroidectomy [address] [place] [address] Left Pathology: A benign follicular nodule with cystic degeneration is seen [address] [place] [address] Impression: 1. Ultrasound-guided left thyroid nodule FNA x2 3XR CALCANEUS RT IMPRESSION: No osseous erosion identified to suggest osteomyelitis. 4[facility] Impression: 1. No change in the [...] may reflect air trapping. No consolidation. 6[facility] Impression: 1. Technically difficult exam but no evidence of DVT within the RLE 2. Small right popliteal cyst 7[facility] Impression: 1. Suspected mild mediastinal lymphadenopathy [...] diverticulae of sigmoid. Non-bleeding int. hemorrhoids. 13[facility] Impression: 1. Mild cardiomegaly with volume [...] Multinodular thyroid goiter. 5. Hepatic steatosis. 17[facility] Impression: 1 Soft tissue swelling with [...] is recommended. 27EF=65-70%, no valvular disease 28[facility] Impression: 1. The right thyroid lobe appears surgically absent 2. Multinodular residual thyroid gland as described. Overall, the size of the nodules are not significantly changed compared to the prior study 29[facility] Impression: 1. No acute bony abnormality is seen 2. arthrititc change as above, greatest at the patellofemoral articulation. 3. small joint effusion. 30next scope in 5 yrs. 31Diverticulosis in the sigmoid colon. Internal hemorrhoids. the examined portion of the ileum was normal. the examination was otherwise normal on direct retroflexion views. No specimens collected. 32[facility] Impression: 1. Hepatomegaly demonstrating fatty change 2. The spleen is normal in size 3. Normal gallbladder. No gallstones 33Generalized intersistial and bronchovascular prominence. The appearane is suggestive of basilar bronchitis. 34[facility] Impression: 1. Mild cardiac enlargement with no acute cardiopulmonary abnormality. 35[facility] Impression: 1. No arrhythmia, no acute ST changes Social History Social History Type Response Smoking Status Never smoked cigaret melissa Sex Female Patient Care team information Care Team Personnel Name: SCOTT Wheatley Janet Griffith Position: Nurse Pract - Pulmonary Med Member Role: Lifetime Relationship Address: Address: [address] [place] [id number] Name: MD Asencio Amy L Position: Physician - Family Med Member Role: Primary Care Provider Address: Address: [address] [place] [address], [place] [address] Care Team Related Persons Name: NING LOU Address: [facility] Address: home [address] [place] [phone] [place] Name: NING LOU Address: home [address] [place] [phone] [place]
--- OUTSIDE RECORDS SUMMARY | 2023-09-11 08:45 | External Medical Summary ---
Author Name Unknown Address Unknown Organization K09:[facility] [place] [address] Laboratory Report Ordering Provider Test Date Status CHRISTIANO MCNEIL 07/18/2023 13:33:31 Final Observation Date Value Abnormality Reference (Units ) Status SYNC LEUKOCYTES IN BLOOD BY AUTOMATED COUNT 07/18/2023 13:33:31 7.53 4.00-10.80 (K/uL) Final Segs 07/18/2023 13:33:31 67.4 40.0-75.0 (%) Final Lymphs % 07/18/2023 13:33:31 15.9 Below low normal 18.0-42.0 (%) Final Monos 07/18/2023 13:33:31 10.6 1.0-11.0 (%) Final Eosinophils 07/18/2023 13:33:31 5.6 0.0-6.0 (%) Final Basos 07/18/2023 13:33:31 0.5 0.0-2.0 (%) Final Absolute Segs 07/18/2023 13:33:31 5.07 1.80-7.70 (K/uL) Final Lymphs, absolute 07/18/2023 13:33:31 1.20 1.00-4.80 (K/ul) Final Monos, Abs 07/18/2023 13:33:31 0.80 0.00-1.10 (K/uL) Final Eos, Abs 07/18/2023 13:33:31 0.42 0.00-0.70 (K/uL) Final Basos, Abs 07/18/2023 13:33:31 0.04 0.00-0.20 (K/uL) Final Performing Location [facility]ORY [facility] J[place] [address]
--- OUTSIDE RECORDS SUMMARY | 2023-09-11 08:45 | External Medical Summary ---
Author Name Unknown Address Unknown Organization K01:[facility]ATORY [facility] - [address] [place] [address] Laboratory Report Ordering Provider Test Date Status CHRISTIANO MCNEIL 07/18/2023 13:34:52 Final Observation Date Value Abnormality Reference (Units ) Status Transferrin 07/18/2023 13:34:52 204 200-360 (mg/dL) Final Performing Location LAB[facility]ATORY [facility] - [address] [place] [address]
[2023-09-11] MEDS: FUROSEMIDE 20 MG TAB PO SCH (08:50)
[2023-09-11] MEDS: FERROUS SULFATE 325 MG TAB PO SCH (08:50)
[2023-09-11] MEDS: MULTIVITAMIN TAB PO SCH (08:50)
[2023-09-11] MEDS: ENOXAPARIN INJ 40 MG/0.4 ML SYR SQ SCH (08:50)
[2023-09-11] MEDS: traMADol HCL 50 MG TABLET PO PRN (08:54)
[2023-09-11] MEDS: INSULIN ASPART PER UNIT CHARGE SC SCH (09:29)
--- NOTE | 2023-09-11 10:39 | Hospitalist Progress Note ---
Date of Service September 11, 2023 Assessment & Plan (1) Fall: Plan: -Mechanical fall at home, no loss of consciousness or syncopal episode prior to fall. -Knee, pelvis, tibia, fibula, and chest x-ray all negative for acute fractures. -Patient has some assisted lift devices at home, though she does not use them frequently. -PT OT to ordered. (2) Laceration of leg: Plan: -Patient sustained an open laceration on the left lower extremity. -The wound has been sutured by the emergency department doctors, -Given that the wound was open and contaminated, she was started on antibiotics -Started on Dapto and cefepime at time of admission. -Wound care consulted. -As needed pain meds ordered. (3) Type 2 diabetes mellitus with polyneuropathy: Plan: -Patient's home regimen held on admission -Continue BSG checks, sliding-scale insulin, hypoglycemic protocol -Pharmacy diabetes management consulted. -Hemoglobin A1c in the a.m. (4) Chronic acquired lymphedema: Plan: -Noted on physical exam, (5) Morbid obesity due to excess calories: Plan: -Should consider outpatient weight loss management to aid in prevention of further falls. Plan Nutrition: Type II diabetic Code status: Full code DVT ppx: Lovenox Consults: Wound care PT/OT: Consulted Case management: Consulted Dispo: med/surg Admission and Anticipated Discharge Date Admission Date: September 11, 2023 Subjective Patient seen and examined today in the emergency department, she is stable post suturing of her laceration, says pain is under good control. Review of Systems Review of Systems: All systems reviewed are negative, apart from the ones contained in the history. Physical Exam Physical Exam: The patient is awake, alert and oriented 3, well developed and well nourished, normocephalic and atraumatic, lying in bed and in no acute distress. HEENT--PERRL, EOMI, mucous membranes and oropharynx mildly dry Neck--supple. No JVD. No bruits. Thyroid normal, trachea midline, no adenopathy. Heart--normal S1 and S2. No murmurs, rubs or gallops. Lungs--clear bilaterally, no respiratory distress, no accessory muscle use. Abdomen--normal bowel sounds and soft. Extremities--no cyanosis or clubbing. No edema. Dermatologic--normal skin turgor, normal color, no abnormal lymph nodes, no rash. Neurologic--cranial nerves II through XII grossly intact. Rheumatologic--normal range of motion. Psychiatric--normal affect. Results & Data Results & Data Vital Signs (Past 12 Hours) Vital Signs Pulse Pulse Resp BP BP Pulse Ox O2 Del Method 09/11/23 08:48 147/77 H 09/11/23 07:56 79 09/11/23 07:50 85 20 98 09/11/23 07:40 87 18 100 09/11/23 07:30 85 20 99 09/11/23 07:20 85 27 H 97 09/11/23 07:10 85 27 H 97 09/11/23 07:00 78 31 H 97 09/11/23 05:00 Nasal Cannula 09/11/23 04:10 81 17 125/73 98 Nasal Cannula 09/11/23 03:22 96 Nasal Cannula 09/11/23 02:45 81 09/11/23 02:39 82 20 143/82 H 98 Nasal Cannula 09/11/23 00:10 81 18 143/82 H 100 Nasal Cannula 09/10/23 23:12 80 O2 Flow Rate 09/11/23 08:48 09/11/23 07:56 09/11/23 07:50 09/11/23 07:40 09/11/23 07:30 09/11/23 07:20 09/11/23 07:10 09/11/23 07:00 09/11/23 05:00 5 09/11/23 04:10 5 09/11/23 03:22 4 09/11/23 02:45 09/11/23 02:39 4 09/11/23 00:10 4 09/10/23 23:12 PG Care Time/CCT Total # of Minutes Spent Total Time Spent with Patient: Total time spent is greater than 50% in coordination of care (as documented) at patient's floor/unit and/or counseling patient: Coding Level of Care Code 13505 SUB INP/OBS CARE 2/35MIN Diagnoses Fall W19.XXXA Laceration of leg S81.819A Type 2 diabetes mellitus with polyneuropathy E11.42 Chronic acquired lymphedema I89.0 Morbid obesity due to excess calories E66.01 Time Spent (min) 35
--- NOTE | 2023-09-11 15:10 | Pharmacy Report ---
Pharmacy Glycemic Short Note 2 - Date of Service September 11, 2023 - Glycemic Short BSG Results (Last 24 hours): 09/10/23 09/11/23 09/11/23 22:05 04:09 08:57 Glucose 89 POC Glucose 101 H 104 H 09/11/23 11:32 Glucose POC Glucose 113 H OUTPATIENT ANTIDIABETIC REGIMEN: * Insulin U500: 60 units SQ with BF, 65 units SQ with ELIZABETH, 70 units SQ with DIN? (patient reporting only using 20-30 units per day) * HbA1c 7.2% (09/11/23) ASSESSMENT: * Lucy is a 67 YOF admitted status post fall with a history of type 2 diabetes mellitus. Pharmacy has been consulted for glycemic management while i npatient. Lucy is well known to the glycemic service. * Fasting BSG this AM below goal range, will hold basal insulin at this time. She is on cefepime and daptomycin, but no other glycemic stressors. Serum creatinine is at baseline. Patient reports taking significantly less basal insulin than prescribed and is requiring less insulin than previous admissions at this time. * Novolog initiated at previously effective parameters. PLAN FOR INPATIENT GLYCEMIC CONTROL: * Hold outpatient oral diabetes medications * Basal insulin * Hold for now, reassess basal in AM * Bolus insulin * NovoLog per scale ACHS or Q6hrs while NPO * Goal Range: Low 110 mg/dL - High 140 mg/dL * Correction Factor: 15 mg/dL/unit * Nutritional / Prandial insulin per carb ratio of 1 unit per 6 grams CHO consumed
[2023-09-11] MEDS: MONTELUKAST SODIUM 10 MG TABLET PO SCH (21:40)
[2023-09-11] MEDS: MELATONIN 3 MG TAB PO PRN (21:40)
[2023-09-12] MEDS: FLUTICASONE/VILANTEROL 100/25MCG 14 PUFFS/INHALER INH SCH (07:36)
[2023-09-12 08:03] LABS: Basophils # (auto) 0.03 K/uL (0.00-0.20); Basophils % (auto) 0.4 %; Eosinophils # (auto) 0.14 K/uL (0.00-0.50); Eosinophils % (auto) 1.9 %; Hematocrit (blood only) 31.8 % (37.0-47.0); Hemoglobin 9.7 g/dl (12.0-16.0); Immature Granulocytes # (auto) 0.04 K/uL (0.01-0.20); Immature Granulocytes % (auto) 0.5 %; Lymphocytes # (auto) 1.11 K/uL (1.20-3.40); Mean Corpuscular Hemoglobin 25.8 pg (25.0-34.0); Mean Corpuscular Hgb Conc 30.5 g/dL (32.0-36.0); Mean Corpuscular Volume 84.6 fL (80.0-100.0); Mean Platelet Volume 11.5 fL (9.4-12.4); Monocytes # (auto) 1.27 K/uL (0.11-0.59); Monocytes % (auto) 17.1 %; Neutrophils # (auto) 4.83 K/uL (1.40-6.50); Neutrophils % (auto) 65.1 %; Nucleated RBC # (auto) 0.02 K/uL (0.00-0.12); Nucleated RBC % (auto) 0.3 %; Platelet Count 199 K/uL (130-400); RDW Coefficient of Variation 23.5 % (11.5-14.5); RDW Standard Deviation 70.4 fL (36.4-46.3); Red Blood Count 3.76 M/uL (4.20-5.40); White Blood Count 7.42 K/ul (4.8-10.8)
[2023-09-12 08:16] LABS: Albumin Globulin Ratio 0.7 (0.9-2); BUN Creatinine Ratio 17.5 (10-20); Bilirubin,Total 1.7 mg/dl (0.2-1.0); Creatinine Clr Calc Pharmacy 45.4 ml/min; Est GFR (African American) 33.9 ml/min; Est GFR (Non-African American) 29.2 ml/min; Globulin 4.3 gm/dl (2.5-4.0); Potassium 4.2 mmol/L (3.5-5.1); Total Protein 7.3 gm/dl (6.0-8.3)
[2023-09-12 08:30] LABS: Anisocytosis Present; Hypochromasia Present; Polychromasia 1+
--- NOTE | 2023-09-12 08:34 | XRay Report ---
XR chest 1V portable HISTORY: hypoxia COMPARISON: Chest 09/10/2023. FINDINGS: No pneumothorax. No pleural effusions. The heart remains enlarged. Left basilar linear dens ities favor subsegmental atelectasis or scarring. This remains unchanged. No new focal lung consolida tions. Persistent elevation of the right hemidiaphragm. Right tracheal deviation, unchanged. Mild con gestive change persists. No acute fractures. Superior mediastinal fullness, unchanged. This is likely due to the patient's known substernal thyroid goiter. IMPRESSION: 1. Cardiomegaly and mild congestive change persists. 2. Chronic elevation of the right hemidiaphragm. ACT 112: Negative or not required by law. Electronically signed by: Papi Jorge M.D. 09/12/2023 8:33 AM
[2023-09-12] MEDS: FUROSEMIDE INJ 20 MG/2 ML VIAL IV STA (08:57)
[2023-09-12] MEDS: ONDANSETRON INJ 2 MG/ML 2 ML VIAL IV PRN (08:58)
[2023-09-12] MEDS: LANTUS PER UNIT CHARGE SC SCH (09:02)
--- NOTE | 2023-09-12 09:05 | Pharmacy Report ---
Pharmacy Glycemic Short Note 2 - Date of Service September 12, 2023 - Glycemic Short BSG Results (Last 24 hours): 09/11/23 09/11/23 09/11/23 08:57 11:32 17:53 Glucose POC Glucose 104 H 113 H 156 H 09/11/23 09/12/23 09/12/23 21:27 07:11 07:47 Glucose 143 H POC Glucose 159 H 151 H OUTPATIENT ANTIDIABETIC REGIMEN: * Insulin U500: 60 units SQ with BF, 65 units SQ with ELIZABETH, 70 units SQ with DIN? (patient reporting only using 20-30 units per day) * HbA1c 7.2% (09/11/23) ASSESSMENT: 09/12 * Patient received 7 units of correctional insulin yesterday, no basal ordered * Fasting BSG trending upward since yesterday, 151 mg/dL - will add on low dose basal insulin this AM with Lantus 15 units once daily * No change to CF/CR 09/11 * Lucy is a 67 YOF admitted status post fall with a history of type 2 diabetes mellitus. Pharmacy has been consulted for glycemic management while inpatient. Lucy is well known to the glycemic service. * Fasting BSG this AM below goal range, will hold basal insulin at this time. She is on cefepime and daptomycin, but no other glycemic stressors. Serum creatinine is at baseline. Patient reports taking significantly less basal insulin than prescribed and is requiring less insulin than previous admissions at this time. * Novolog initiated at previously effective parameters. PLAN FOR INPATIENT GLYCEMIC CONTROL: * Hold outpatient oral diabetes medications * Basal insulin * 15 units daily * Bolus insulin * NovoLog per scale ACHS or Q6hrs while NPO * Goal Range: Low 110 mg/dL - High 140 mg/dL * Correction Factor: 15 mg/dL/unit * Nutritional / Prandial insulin per carb ratio of 1 unit per 6 grams CHO consumed
[2023-09-12] MEDS: cephALEXin 500 MG CAP PO SCH (10:21)
--- NOTE | 2023-09-12 12:45 | Hospitalist Progress Note ---
Date of Service September 12, 2023 Assessment & Plan (1) Fall: Plan: Mechanical fall at home, no loss of consciousness or syncopal episode prior to fall. All x-rays negative for fractures. The patient and feel that she needs rehab placement before she can return home. Case management notified. (2) Laceration of leg: Plan: Patient sustained an open laceration on the lateral lower aspect of her left lower extremity. Sutured in ED. Intravenous daptomycin and cefepime switched to oral cephalexin today, September 12. Wound care consult appreciated. Pain control measures (3) Chronic respiratory failure with hypoxia: Plan: She states she uses continuous oxygen at home at 4 L/min. Currently she is on 2.5 L/min (4) Type 2 diabetes mellitus with polyneuropathy: Plan: ADA diet. Sliding scale coverage. (5) Chronic acquired lymphedema: Plan: Due to chronic venous insufficiency bilateral lower extremity (6) Morbid obesity due to excess calories: Plan: BMI greater than 40. Significant weight loss recommended Plan Placement proceedings underway Admission and Anticipated Discharge Date Admission Date: September 11, 2023 Subjective Alert and oriented. No distress. is at the bedside. Urology consult placed for Mcfadden catheter exchange. Tramadol is not controlling her pain and oxycodone IR has been ordered as needed. She uses oxygen chronically at home at 4 L/min. Currently she is on 2.5 L/min. Chest x-ray repeated today, September 12, is underpenetrated and uninterpretable. BNP is elevated but she has chronic cor pulmonale and it may be chronically elevated. 1 dose of parenteral Lasix administered to see her response. IV antibiotics discontinued and now she is on oral Keflex. Case management is notified to pursue placement. Review of Systems 2 Review of Systems: Constitutional-no fever or chills ENT-no blurred vision, no double vision, no epistaxis, no sore throat Respiratory-no cough, no wheezing, no shortness of breath Cardiac-no palpitations, no chest pain, no syncope GI-no nausea, vomiting, diarrhea, melena, hematochezia -chronic Mcfadden catheter in place. No hematuria Musculoskeletal-no joint pain, no muscle tenderness Skin-left lower extremity laceration bandaged Neuro-no isolated weakness, no paresthesia Psych-no depression, no anxiety Physical Exam 2 Physical Exam: General-alert and oriented x3, no fever, no chills. Morbidly obese HEENT-head atraumatic and normocephalic, pupils equal and reactive to light, extraocular muscles intact Neck-no lymphadenopathy or thyromegaly, trachea midline Chest-diminished breath sounds bilaterally. No rales, wheezing or rhonchi Cardiac-regular rate and rhythm, normal S1 and S2 Abdomen-normal bowel sounds, nontender, no hepatosplenomegaly Extremities-bilateral lower extremity chronic venous stasis changes and chronic edema. Bandaged lower left leg laceration laterally Neuro-cranial nerves II through XII intact, motor and sensory function within normal limits, strength symmetrical with generalized weakness, no focal deficits Psych-normal affect, normal mood Results & Data Results & Data Vital Signs (Past 12 Hours) Vital Signs Temp Pulse Resp BP Pulse Ox O2 Del Method O2 Flow Rate 09/12/23 07:22 37.1 C 94 H 18 128/69 92 Nasal Cannula 2.5 Laboratory Results 09/12/23 07:11 09/12/23 07:11 PG Care Time/CCT Total # of Minutes Spent Total Time Spent with Patient: Total time spent is greater than 50% in coordination of care (as documented) at patient's floor/unit and/or counseling patient: Coding Level of Care Code 80080 SUB INP/OBS CARE 3/50MIN Diagnoses Fall W19.XXXA Laceration of leg S81.819A Chronic respiratory failure with hypoxia J96.11 Type 2 diabetes mellitus with polyneuropathy E11.42 Chronic acquired lymphedema I89.0 Morbid obesity due to excess calories E66.01
[2023-09-13] MEDS: NYSTATIN CR 15 GM TUBE EXT SCH (12:06)
[2023-09-13] MEDS: EPOETIN ALFA 10,000 UNITS/ML VIAL SQ ONE (12:07)
--- NOTE | 2023-09-13 12:09 | Urology Consultation ---
Date of Consultation September 13, 2023 Assessment & Plan (1) Urinary retention: (2) Urinary catheter (Mcfadden) change required: Plan 67yo F admitted to medicine service after a fall at home. Urology was consulted for Mcfadden catheter exchange. Patient reports that the Mcfadden catheter was placed during prior admission in June 2023 due to mobility issues and urinary incontinence. She has had the catheter in place since then. Overnight the catheter was not draining well and had minimal output. Nursing staff attempted catheter replacement but this was unsuccessful. Patient has been unable to void since catheter removal. Catheter was placed at the bedside by urology. See below for procedure description. The catheter can be hand irrigated as needed for clots/debris, retention, suprapubic pain. She prefers to maintain the Mcfadden catheter for now due to mobility issues and recent fall. We discussed chronic catheter and monthly catheter exchanges. She is on oral cephalexin for the left leg laceration which will also give urinary coverage given the recent multiple catheter attempts/manipulations. Will arrange outpatient follow-up with our service. Urology will sign-off. Please call with any further questions or concerns. Supervising Physician Co-Signing Physician Notes I have discussed Ms. Molina's case with SCOTT Zavala and agree with the above documentation. Urology was consulted for difficult Mcfadden placement. Mcfadden catheter was placed in the following fashion. The patient was prepped and draped in the usual sterile fashion verbal consent was obtained. Due to her habitus, it was very difficult to retract tissues to expose the urethral meatus. With the assistance of several staff, we attempted to retract tissues but the meatus could not be well-visualized. Catheters were attempted couple times on suspected tissue, but these did not return with urine and patient reported some discomfort. Maintaining as much sterility as possible, I tried to position 1 hand along the anterior vaginal wall, where the urethral meatus could be palpated proximal to the pubic symphysis. Over this finger, a 16 Irish coud catheter was advanced, and could be felt progressing into the urethral meatus. There was return of somewhat cloudy yellow urine. The balloon was inflated with 10 mL of normal saline. Catheter was attached to gravity drainage. Patient tolerated the procedure well with no immediate complications. -Morteza Sinclair MD. History of Present Illness Attending Physician: Dav Neumann MD History of Present Illness 67 year old female with a PMHx including T2DM, osteomyelitis of right third toe, cellulitis of right foot, GERD, anxiety, cellulitis, unstable angina, CKD, HTN, STEWART who presented to the hospital 09/11/23 after a fall. Patient was at home and was having a bowel movement and when she went to stand up her legs gave out and she fell to the ground. She obtained a laceration to her left lower extremity which was sutured in the ED. Patient admitted to medicine service for continued care. Urology was consulted for Mcfadden catheter exchange. Patient reports that the Mcfadden catheter was placed during prior admission in June 2023 due to mobility issues and urinary incontinence. She has had the catheter in place since then. She was to be seen in the urology clinic but was admitted to the hospital and unable to make visit. Overnight nursing noted the catheter was not draining well and had minimal out put. The catheter was removed and nursing staff attempted to place a new catheter but was unsuccessful. She was bladder scanned for 762ml. She is afebrile and hemodynamically stable. On 5 L O2 via nasal cannula. Labs 09/12 reviewed WBC 7.42, Creatinine 1.77. Patient examined at bedside this AM. Awake, resting in bed on arrival. No acute distress. She has not been able to void since catheter removal earlier this morning. Denies bladder pain or pressure. Denies fever, chills, nausea, vomiting. Denies prior hx. Denies prior history of urinary retention. Allergies Allergy/AdvReac Type Severity Reaction Status Date / Time Iodinated Contrast Media Allergy Severe Hives and Verified 07/05/23 19:15 kidney complications iodine Allergy Severe Hives and Verified 07/05/23 19:15 kidney complications shellfish derived Allergy Severe Anaphylaxis Verified 07/05/23 19:15 /Hives sulfite Allergy Severe HIVES AND Verified 07/05/23 19:15 THROAT CLOSES Home Medications Medication Instructions Recorded Confirmed Type rosuvastatin 20 mg tablet 20 mg PO HS 02/26/19 09/11/23 History tramadol 50 mg tablet 50 mg PO Q6H PRN Pain 05/17/20 09/11/23 History montelukast 10 mg tablet 10 mg PO HS 09/27/20 09/11/23 History nitroglycerin 0.4 mg sublingual 0.4 mg sublingual Q5M PRN Chest 11/30/20 09/11/23 History tablet Pain Oxygen Home E0424 #4 L 06/17/21 09/11/23 Rx furosemide 20 mg tablet 40 mg PO DAILY 07/05/22 09/11/23 History levothyroxine 112 mcg tablet See Rx Instructions .Route .COMPLEX 07/05/22 09/11/23 History BiPap Machine #1 ea 11/27/22 09/11/23 Rx fluticasone 250 mcg-salmeterol 50 1 inh inhalation BID wheezing/sob 07/05/23 09/11/23 History mcg/dose blistr powdr for inhalation (Advair Diskus) epoetin milo-epbx 40,000 unit/mL 40,000 unit subcut Q7D 07/06/23 09/11/23 H istory injection solution (Retacrit) insulin regular hum U-500 conc 500 0 unit subcut UD 09/11/23 09/11/23 History unit/mL(3 mL) subcut pen (Humulin R U-500 (Conc) Insulin Kwikpen) insulin regular hum U-500 conc 500 See Rx Instructions .Route .COMPLEX 09/11/23 09/11/23 History unit/mL(3 mL) subcut pen (Humulin R U-500 (Conc) Insulin Kwikpen) ipratropium 0.5 mg-albuterol 3 mg 3 ml inhalation TID PRN Shortness 09/11/23 09/11/23 History (2.5 mg base)/3 mL nebulization Of Breath soln Patient History Medical History ARDS (adult respiratory distress syndrome) COVID-19 Chest pain Lymphedema Shortness of breath Obstructive sleep apnea syndrome Proteinuria Stage 3b chronic kidney disease Secondary pulmonary hypertension Obesity hypoventilation syndrome Morbid obesity due to excess calories Lymphedema of lower extremity Vitamin D deficiency Stage 3b chronic kidney disease Diarrhea Breathlessness Hypothyroidism Hypertension SOB (shortness of breath) Chronic respiratory failure 1 to 2 L oxygen Morbid obesity CAD S/P percutaneous coronary angioplasty Coronary artery disease Anemia Dyspnea CHF (congestive heart failure) Acute respiratory failure with hypoxia Thyroid cancer Diverticulitis GERD (gastroesophageal reflux disease) Diabetes Surgical History History of percutaneous coronary intervention History of colonoscopy H/O endoscopy H/O partial thyroidectomy Family History Other Diabetes Heart disease No pertinent family history Social History Smoking Status: Never smoker Second Hand Exposure: No; Do You Dip or Chew Tobacco: No; Hx Alcohol Use: No Hx Substance Use: No Preferred Language: Romansh 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 Ability: Effective Manager Payment Required: No Beliefs That Will Affect Care: None marital status: Current Living Situation: Spouse Current Living Situation Comment: current occupational status: disabled Feels Safe at Home: Yes Diet: other Diet Comment: low carb high protein "like a gastirc bypass diet" states seeing nutrionist caffeine: Yes during the past year weight has: increased > 10 lbs Physical Activity Frequency: Does not Exercise Do you think of yourself as: straight/heterosexual Gender Identity: Female Assistive Devices: Bedside Commode, Cane, CPAP, Lift Chair, Mechanical Lift, Scooter/Electric Scooter, Walker and Wheelchair Review of Systems Review of Systems: All systems reviewed & are unremarkable except as noted in HPI & below Physical Exam Constitutional: + morbidly obese; no acute distress Neck: normal visual inspection Respiratory: no respiratory distress and no labored breathing On O2 via NC Musculoskeletal: Head/Neck/Chest: normocephalic Bandage to LLE Skin: Warm and dry Neurologic: awake Psychiatric: A+Ox3, euthymic affect Results & Data Vital Signs (Past 12 Hours) Vital Signs Temp Pulse Pulse Resp BP BP Pulse Ox 09/13/23 07:27 36.2 C L 83 18 123/69 97 09/13/23 01:46 94/60 L 09/12/23 23:03 90 89/60 L 09/12/23 21:31 O2 Del Method O2 Flow Rate 09/13/23 07:27 Nasal Cannula 5 09/13/23 01:46 09/12/23 23:03 09/12/23 21:31 Nasal Cannula 4 PG Care Time/CCT Total # of Minutes Spent Total Time Spent with Patient: Total time spent is greater than 50% in coordination of care (as documented) at patient's floor/unit and/or counseling patient: Coding Level of Care Code 76038 OP VST NEW LOW 30 MIN Diagnoses Urinary retention R33.9 Urinary catheter (Mcfadden) change required Z46.6 Comment would also consider code 44769 for difficult catheter placement
--- NOTE | 2023-09-13 12:23 | Hospitalist Progress Note ---
Date of Service September 13, 2023 Assessment & Plan (1) Fall: Plan: Mechanical fall at home, no loss of consciousness or syncopal episode prior to fall. All x-rays negative for fractures. The patient and feel that she needs rehab placement before she can return home. Case management notified. (2) Laceration of leg: Plan: Patient sustained an open laceration on the lateral lower aspect of her left lower extremity. Sutured in ED. Intravenous daptomycin and cefepime switched to oral cephalexin on September 12. Wound care consult appreciated. Pain control measures (3) Chronic respiratory failure with hypoxia: Plan: She states she uses continuous oxygen at home at 4 L/min. (4) Type 2 diabetes mellitus with polyneuropathy: Plan: ADA diet. Sliding scale coverage. (5) Chronic acquired lymphedema: Plan: Due to chronic venous insufficiency bilateral lower extremity (6) Morbid obesity due to excess calories: Plan: BMI greater than 40. Significant weight loss recommended Plan On either discharge to [facility] today, September 13, or home with home health services if IPR is insurance denied. If she is going to go home with home health, it will be tomorrowSeptember 14 Admission and Anticipated Discharge Date Admission Date: September 11, 2023 Subjective Alert and oriented. No distress. Nystatin ointment ordered at patient's request for Sofi dermatitis under the breasts and in the inguinal folds. No response to intravenous Lasix administered yesterday, September 13. Mcfadden catheter was successfully changed today, September 14. She will either be excepted to [facility] today or she will go home with home health services tomorrow, September 14 Review of Systems 2 Review of Systems: Constitutional-no fever or chills ENT-no blurred vision, no double vision, no epistaxis, no sore throat Respiratory-no cough, no wheezing, no shortness of breath Cardiac-no palpitations, no chest pain, no syncope GI-no nausea, vomiting, diarrhea, melena, hematochezia -chronic Mcfadden catheter in place. No hematuria Musculoskeletal-no joint pain, no muscle tenderness Skin-left lower extremity laceration bandaged Neuro-no isolated weakness, no paresthesia Psych-no depression, no anxiety Physical Exam 2 Physical Exam: General-alert and oriented x3, no fever, no chills. Morbidly obese HEENT-head atraumatic and normocephalic, pupils equal and reactive to light, extraocular muscles intact Neck-no lymphadenopathy or thyromegaly, trachea midline Chest-diminished breath sounds bilaterally. No rales, wheezing or rhonchi Cardiac-regular rate and rhythm, normal S1 and S2 Abdomen-normal bowel sounds, nontender, no hepatosplenomegaly Extremities-bilateral lower extremity chronic venous stasis changes and chronic edema. Bandaged lower left leg laceration laterally Neuro-cranial nerves II through XII intact, motor and sensory function within normal limits, strength symmetrical with generalized weakness, no focal deficits Psych-normal affect, normal mood Results & Data Results & Data Vital Signs (Past 12 Hours) Vital Signs Temp Pulse Resp BP Pulse Ox O2 Del Method O2 Flow Rate 09/13/23 07:27 36.2 C L 83 18 123/69 97 Nasal Cannula 5 09/13/23 01:46 94/60 L Laboratory Results 09/12/23 07:11 09/12/23 07:11 PG Care Time/CCT Total # of Minutes Spent Total Time Spent with Patient: Total time spent is greater than 50% in coordination of care (as documented) at patient's floor/unit and/or counseling patient: Coding Level of Care Code 54271 SUB INP/OBS CARE 3/50MIN Diagnoses Fall W19.XXXA Laceration of leg S81.819A Chronic respiratory failure with hypoxia J96.11 Type 2 diabetes mellitus with polyneuropathy E11.42 Chronic acquired lymphedema I89.0 Morbid obesity due to excess calories E66.01
[2023-09-14 07:30] LABS: Calcium 8.8 mg/dl (8.6-10.3); Creatinine Clr Calc Pharmacy 28.5 ml/min; Est GFR (African American) 19.3 ml/min; Est GFR (Non-African American) 16.6 ml/min; Potassium 4.6 mmol/L (3.5-5.1)
[2023-09-14] MEDS: POLYETHYLENE (MIRALAX) 17 GM PACK PO SCH (07:47)
[2023-09-14] MEDS: LEVALBUTEROL TARTRATE 15 GM HFA.AER.AD INH PRN (08:03)
--- NOTE | 2023-09-14 11:52 | Urology Progress Note ---
Date of Service September 14, 2023 Assessment & Plan (1) Urinary retention: (2) Urinary catheter (Mcfadden) change required: Plan 67yo F admitted to medicine service after a fall at home. Urology was consulted for Mcfadden catheter exchange. Catheter successfully placed at the bedside yesterday by urology. Catheter noted to have low output overnight (75ml). Mcfadden is currently intact and draining yellow urine. Urine output in bag 100ml at present. Patient was bladder scanned for 357ml earlier today however the bladder scans are likely unreliable given her body habitus. Therefore would maintain catheter and continue to monitor. I offered to flush the catheter at time of exam but pt declined. The catheter can be hand irrigated as needed for clots/debris, retention, suprapubic pain. Creatinine up to 2.82 today. She does have underlying CKD. Continue to trend. She is on oral cephalexin for the left leg laceration which will also give urinary coverage given the recent multiple catheter attempts/manipulations. Will arrange outpatient follow-up with our service. Urology will follow peripherally. Please call with any further questions or concerns. Admission and Anticipated Discharge Date Admission Date: September 11, 2023 Subjective Patient examined at bedside this a.m. Awake, resting bed on arrival. No acute distress. Mcfadden intact and draining small amount of yellow urine. Urine output [id number] mL. Review of Systems Constitutional: as per Subjective / HPI Genitourinary: as per Subjective / HPI Physical Exam Constitutional: + morbidly obese; no acute distress Neck: normal visual inspection Respiratory: no respiratory distress and no labored breathing On O2 via NC Musculoskeletal: Head/Neck/Chest: normocephalic Bandage to LLE Skin: Warm and dry Neurologic: awake Psychiatric: A+Ox3, euthymic affect Genitourinary: Mcfadden intact Results & Data Vital Signs (Past 12 Hours) Vital Signs Temp Pulse Resp BP Pulse Ox O2 Del Method O2 Flow Rate 09/14/23 08:04 100 H 24 94 Nasal Cannula 4 09/14/23 07:12 36.4 C L 82 18 98/60 L 94 Nasal Cannula 5 PG Care Time/CCT Total # of Minutes Spent Total Time Spent with Patient: Total time spent is greater than 50% in coordination of care (as documented) at patient's floor/unit and/or counseling patient: Coding Level of Care Code 23458 SUB INP/OBS CARE 2/35MIN Diagnoses Urinary retention R33.9 Urinary catheter (Mcfadden) change required Z46.6
--- NOTE | 2023-09-14 15:10 | Hospitalist Progress Note ---
Date of Service September 14, 2023 Assessment & Plan (1) Fall: Plan: Mechanical fall at home, no loss of consciousness or syncopal episode prior to fall. All x-rays negative for fractures. The patient and feel that she needs rehab or SNF placement before she can return home. Case management aware. (2) Laceration of leg: Plan: Patient sustained an open laceration on the lateral lower aspect of her left lower extremity. Sutured in ED. Intravenous daptomycin and cefepime switched to oral cephalexin on September 12. Wound care consult appreciated. Pain control measures (3) Chronic respiratory failure with hypoxia: Plan: She states she uses continuous oxygen at home at 4 L/min. (4) Type 2 diabetes mellitus with polyneuropathy: Plan: ADA diet. Sliding scale coverage. (5) Chronic acquired lymphedema: Plan: Due to chronic venous insufficiency bilateral lower extremity (6) Morbid obesity due to excess calories: Plan: BMI greater than 40. Significant weight loss recommended Plan Eventual discharge to either [facility] or to SNF facility. Case management is aware and involved Admission and Anticipated Discharge Date Admission Date: September 11, 2023 Subjective Stable. No new problems. She does have some constipation and MiraLAX has been ordered. Case management pursuing placement. Creatinine today is up to 2.6 but there is no reason for this. It may be spuriously result. Will follow. Review of Systems 2 Review of Systems: Constitutional-no fever or chills ENT-no blurred vision, no double vision, no epistaxis, no sore throat Respiratory-no cough, no wheezing, no shortness of breath Cardiac-no palpitations, no chest pain, no syncope GI-no nausea, vomiting, diarrhea, melena, hematochezia -chronic Mcfadden catheter in place. No hematuria Musculoskeletal-no joint pain, no muscle tenderness Skin-left lower extremity laceration bandaged Neuro-no isolated weakness, no paresthesia Psych-no depression, no anxiety Physical Exam 2 Physical Exam: General-alert and oriented x3, no fever, no chills. Morbidly obese HEENT-head atraumatic and normocephalic, pupils equal and reactive to light, extraocular muscles intact Neck-no lymphadenopathy or thyromegaly, trachea midline Chest-diminished breath sounds bilaterally. No rales, wheezing or rhonchi Cardiac-regular rate and rhythm, normal S1 and S2 Abdomen-normal bowel sounds, nontender, no hepatosplenomegaly Extremities-bilateral lower extremity chronic venous stasis changes and chronic edema. Bandaged lower left leg laceration laterally Neuro-cranial nerves II through XII intact, motor and sensory function within normal limits, strength symmetrical with generalized weakness, no focal deficits Psych-normal affect, normal mood Results & Data Results & Data Vital Signs (Past 12 Hours) Vital Signs Temp Pulse Resp BP BP Pulse Ox O2 Del Method 09/14/23 14:29 36.8 C 80 18 98/66 L 93 Nasal Cannula 09/14/23 09:45 Nasal Cannula 09/14/23 08:04 100 H 24 94 Nasal Cannula 09/14/23 07:12 36.4 C L 82 18 98/60 L 94 Nasal Cannula O2 Flow Rate 09/14/23 14:29 5 09/14/23 09:45 5 09/14/23 08:04 4 09/14/23 07:12 5 Laboratory Results 09/12/23 07:11 09/14/23 06:09 PG Care Time/CCT Total # of Minutes Spent Total Time Spent with Patient: Total time spent is greater than 50% in coordination of care (as documented) at patient's floor/unit and/or counseling patient: Coding Level of Care Code 02275 SUB INP/OBS CARE 2/35MIN Diagnoses Fall W19.XXXA Laceration of leg S81.819A Chronic respiratory failure with hypoxia J96.11 Type 2 diabetes mellitus with polyneuropathy E11.42 Chronic acquired lymphedema I89.0 Morbid obesity due to excess calories E66.01
[2023-09-14] MEDS: oxyCODONE HCL IR 5 MG TAB (IMMEDIATE RELEASE) PO PRN (16:33)
[2023-09-14] MEDS: cephALEXin 500 MG CAP PO SCH (20:25)
[2023-09-15] MEDS: ENOXAPARIN INJ 30 MG/0.3 ML SYR SQ SCH (07:32)
[2023-09-15 08:39] LABS: BUN Creatinine Ratio 16.7 (10-20); Calcium 8.7 mg/dl (8.6-10.3); Creatinine Clr Calc Pharmacy 27.9 ml/min; Est GFR (African American) 18.8 ml/min; Est GFR (Non-African American) 16.2 ml/min; Potassium 4.4 mmol/L (3.5-5.1)
[2023-09-15] MEDS: bisacodyL 10 MG SUPP PR STA (13:12)
[2023-09-15] MEDS: CARBAMIDE PEROXIDE 6.5% 15 ML BTL OT SCH (14:12)
[2023-09-15] MEDS: GENTAMICIN SULFATE 0.3% OP SOLN 5 ML BTL OPB SCH (14:12)
--- NOTE | 2023-09-15 15:00 | Hospitalist Progress Note ---
Date of Service September 15, 2023 Assessment & Plan (1) Fall: Plan: Mechanical fall at home, no loss of consciousness or syncopal episode prior to fall. All x-rays negative for fractures. The patient and feel that she needs rehab or SNF placement before she can return home. Case management aware. (2) Laceration of leg: Plan: Patient sustained an open laceration on the lateral lower aspect of her left lower extremity. Sutured in ED. Intravenous daptomycin and cefepime switched to oral cephalexin on September 12. Wound care consult appreciated. Pain control measures (3) Chronic respiratory failure with hypoxia: Plan: She states she uses continuous oxygen at home at 4 L/min. (4) Type 2 diabetes mellitus with polyneuropathy: Plan: ADA diet. Sliding scale coverage. (5) Chronic acquired lymphedema: Plan: Due to chronic venous insufficiency bilateral lower extremity (6) Morbid obesity due to excess calories: Plan: BMI greater than 40. Significant weight loss recommended (7) Impacted cerumen of left ear: Plan: Debrox ordered (8) Conjunctivitis: Plan: Gentamicin ophthalmic drops ordered (9) Constipation: Plan: MiraLAX ordered. Dulcolax rectal suppositories as needed Plan Eventual discharge to either [facility] or to SNF facility. Case management is aware and involved Admission and Anticipated Discharge Date Admission Date: September 11, 2023 Subjective The patient continues to complain of constipation and now she is complaining of hearing loss and conjunctivitis symptoms. She does have evidence of left c erumen impaction on examination with otoscope. Bilateral conjunctiva are slightly reddened. Gentamicin eyedrops ordered. She requested a Dulcolax rectal suppository which has been ordered. Creatinine unchanged at 2.8. Lasix has been discontinued. Review of Systems Review of Systems: Constitutional-no fever or chills ENT-no blurred vision, no double vision, no epistaxis, no sore throat. Bilateral hearing loss. Bilateral conjunctival irritation Respiratory-no cough, no wheezing, no shortness of breath Cardiac-no palpitations, no chest pain, no syncope GI-no nausea, vomiting, diarrhea, melena, hematochezia. She is constipated -chronic Mcfadden catheter in place. No hematuria Musculoskeletal-no joint pain, no muscle tenderness Skin-left lower extremity laceration bandaged Neuro-no isolated weakness, no paresthesia Psych-no depression, no anxiety Physical Exam Physical Exam: General-alert and oriented x3, no fever, no chills. Morbidly obese HEENT-head atraumatic and normocephalic, pupils equal and reactive to light, extraocular muscles intact. Bilateral scleral injection noted. Left cerumen impaction noted Neck-no lymphadenopathy or thyromegaly, trachea midline Chest-diminished breath sounds bilaterally. No rales, wheezing or rhonchi Cardiac-regular rate and rhythm, normal S1 and S2 Abdomen-normal bowel sounds, nontender, no hepatosplenomegaly Extremities-bilateral lower extremity chronic venous stasis changes and chronic edema. Bandaged lower left leg laceration laterally Neuro-cranial nerves II through XII intact, motor and sensory function within normal limits, strength symmetrical with generalized weakness, no focal deficits Psych-normal affect, normal mood Results & Data Results & Data Vital Signs (Past 12 Hours) Vital Signs Temp Pulse Resp BP Pulse Ox O2 Del Method O2 Flow Rate 09/15/23 14:33 36.3 C L 83 20 121/73 94 Nasal Cannula 4 09/15/23 12:33 74 15 92 Nasal Cannula 5 09/15/23 07:43 36.3 C L 81 20 102/63 92 Nasal Cannula 5 09/15/23 07:35 Nasal Cannula 5 PG Care Time/CCT Total # of Minutes Spent Total Time Spent with Patient: Total time spent is greater than 50% in coordination of care (as documented) at patient's floor/unit and/or counseling patient: Coding Level of Care Code 40079 SUB INP/OBS CARE 3/50MIN Diagnoses Fall W19.XXXA Laceration of leg S81.819A Chronic respiratory failure with hypoxia J96.11 Type 2 diabetes mellitus with polyneuropathy E11.42 Chronic acquired lymphedema I89.0 Morbid obesity due to excess calories E66.01 Impacted cerumen of left ear H61.22 Conjunctivitis H10.9 Constipation K59.00
[2023-09-16 07:53] LABS: Calcium 8.9 mg/dl (8.6-10.3); Creatinine Clr Calc Pharmacy 29.9 ml/min; Est GFR (African American) 20.4 ml/min; Est GFR (Non-African American) 17.6 ml/min; Potassium 4.3 mmol/L (3.5-5.1)
--- NOTE | 2023-09-16 12:28 | Hospitalist Progress Note ---
Date of Service September 16, 2023 Assessment & Plan (1) Fall: Plan: Mechanical fall at home, no loss of consciousness or syncopal episode prior to fall. All x-rays negative for fractures. The patient and feel that she needs rehab or SNF placement before she can return home. Case management aware. (2) Laceration of leg: Plan: Patient sustained an open laceration on the lateral lower aspect of her left lower extremity. Sutured in ED. Intravenous daptomycin and cefepime switched to oral cephalexin on September 12. Wound care consult appreciated. Pain control measures (3) Chronic respiratory failure with hypoxia: Plan: She states she uses continuous oxygen at home at 4 L/min. (4) Type 2 diabetes mellitus with polyneuropathy: Plan: ADA diet. Sliding scale coverage. (5) Chronic acquired lymphedema: Plan: Due to chronic venous insufficiency bilateral lower extremity (6) Morbid obesity due to excess calories: Plan: BMI greater than 40. Significant weight loss recommended (7) Impacted cerumen of left ear: Plan: Debrox ordered. She will have to see a research scientist as an outpatient for wax removal (8) Conjunctivitis: Plan: Gentamicin ophthalmic drops appear to be helping. Day 2 (9) Constipation: Plan: MiraLAX ordered. Dulcolax rectal suppositories as needed Plan Hopeful discharge to SNF facility tomorrowSeptember 17 Admission and Anticipated Discharge Date Admission Date: September 11, 2023 Subjective Alert and oriented. No acute distress. Gentamicin ophthalmic drops appear to be helping with the conjunctivitis. Creatinine downtrending slightly to 2.6. Lasix has been discontinued. She will restart it on an every other day basis at discharge. Hopeful discharge to [facility] on September 17 Review of Systems 2 Review of Systems: Constitutional-no fever or chills ENT-no blurred vision, no double vision, no epistaxis, no sore throat. Bilateral hearing loss. Bilateral conjunctival irritation Respiratory-no cough, no wheezing, no shortness of breath Cardiac-no palpitations, no chest pain, no syncope GI-no nausea, vomiting, diarrhea, melena, hematochezia. She is constipated -chronic Mcfadden catheter in place. No hematuria Musculoskeletal-no joint pain, no muscle tenderness Skin-left lower extremity laceration bandaged Neuro-no isolated weakness, no paresthesia Psych-no depression, no anxiety Physical Exam 2 Physical Exam: General-alert and oriented x3, no fever, no chills. Morbidly obese HEENT-head atraumatic and normocephalic, pupils equal and reactive to light, extraocular muscles intact. Bilateral scleral injection noted. Left cerumen impaction noted Neck-no lymphadenopathy or thyromegaly, trachea midline Chest-diminished breath sounds bilaterally. No rales, wheezing or rhonchi Cardiac-regular rate and rhythm, normal S1 and S2 Abdomen-normal bowel sounds, nontender, no hepatosplenomegaly Extremities-bilateral lower extremity chronic venous stasis changes and chronic edema. Bandaged lower left leg laceration laterally Neuro-cranial nerves II through XII intact, motor and sensory function within normal limits, strength symmetrical with generalized weakness, no focal deficits Psych-normal affect, normal mood Results & Data Results & Data Vital Signs (Past 12 Hours) Vital Signs Temp Pulse Resp BP Pulse Ox O2 Del Method O2 Flow Rate 09/16/23 07:26 36.6 C 88 18 111/74 94 Nasal Cannula 5 09/16/23 07:25 Nasal Cannula 5 Laboratory Results 09/12/23 07:11 09/16/23 06:37 PG Care Time/CCT Total # of Minutes Spent Total Time Spent with Patient: Total time spent is greater than 50% in coordination of care (as documented) at patient's floor/unit and/or counseling patient: Coding Level of Care Code 93994 SUB INP/OBS CARE 2/35MIN Diagnoses Fall W19.XXXA Laceration of leg S81.819A Chronic respiratory failure with hypoxia J96.11 Type 2 diabetes mellitus with polyneuropathy E11.42 Chronic acquired lymphedema I89.0 Morbid obesity due to excess calories E66.01 Impacted cerumen of left ear H61.22 Conjunctivitis H10.9 Constipation K59.00
[2023-09-16] MEDS: cephALEXin 500 MG CAP PO SCH (16:55)
[2023-09-17 07:26] LABS: Basophils # (auto) 0.06 K/uL (0.00-0.20); Basophils % (auto) 0.7 %; Eosinophils # (auto) 0.28 K/uL (0.00-0.50); Eosinophils % (auto) 3.4 %; Hematocrit (blood only) 33.8 % (37.0-47.0); Hemoglobin 10.1 g/dl (12.0-16.0); Immature Granulocytes # (auto) 0.06 K/uL (0.01-0.20); Immature Granulocytes % (auto) 0.7 %; Lymphocytes # (auto) 1.35 K/uL (1.20-3.40); Lymphocytes % (auto) 16.6 %; Mean Corpuscular Hemoglobin 25.1 pg (25.0-34.0); Mean Corpuscular Hgb Conc 29.9 g/dL (32.0-36.0); Mean Corpuscular Volume 84.1 fL (80.0-100.0); Mean Platelet Volume 11.2 fL (9.4-12.4); Monocytes # (auto) 1.13 K/uL (0.11-0.59); Monocytes % (auto) 13.9 %; Neutrophils # (auto) 5.25 K/uL (1.40-6.50); Neutrophils % (auto) 64.7 %; Nucleated RBC # (auto) 0.05 K/uL (0.00-0.12); Nucleated RBC % (auto) 0.6 %; Platelet Count 258 K/uL (130-400); RDW Coefficient of Variation 23.9 % (11.5-14.5); RDW Standard Deviation 69.8 fL (36.4-46.3); Red Blood Count 4.02 M/uL (4.20-5.40); White Blood Count 8.13 K/ul (4.8-10.8)
[2023-09-17 07:48] LABS: BUN Creatinine Ratio 19.4 (10-20); Calcium 8.9 mg/dl (8.6-10.3); Creatinine Clr Calc Pharmacy 28.8 ml/min; Est GFR (African American) 19.5 ml/min; Est GFR (Non-African American) 16.8 ml/min; Potassium 4.4 mmol/L (3.5-5.1)
[2023-09-17 07:54] LABS: Anisocytosis Present; Polychromasia 1+
--- NOTE | 2023-09-17 15:17 | Hospitalist Progress Note ---
Date of Service September 17, 2023 Assessment & Plan (1) Fall: Plan: Mechanical fall at home, no loss of consciousness or syncopal episode prior to fall. All x-rays negative for fractures. The patient and feel that she needs rehab or SNF placement before she can return home. Case management aware. Final arrangements at [facility] pending (2) Laceration of leg: Plan: Patient sustained an open laceration on the lateral lower aspect of her left lower extremity. Sutured in ED. Intravenous daptomycin and cefepime switched to oral cephalexin on September 12. Wound care consult appreciated. Pain control measures (3) Chronic respiratory failure with hypoxia: Plan: She states she uses continuous oxygen at home at 4 L/min. Currently on 5 L/min (4) Type 2 diabetes mellitus with polyneuropathy: Plan: ADA diet. Sliding scale coverage. (5) Chronic acquired lymphedema: Plan: Due to chronic venous insufficiency bilateral lower extremity (6) Morbid obesity due to excess calories: Plan: BMI greater than 40. Significant weight loss recommended (7) Impacted cerumen of left ear: Plan: Debrox ordered. She will have to see a scientific research manager as an outpatient for wax removal (8) Conjunctivitis: Plan: Gentamicin ophthalmic drops appear to be helping. Day 3. These eyedrops can be discontinued at the time of discharge (9) Constipation: Plan: MiraLAX ordered. Dulcolax rectal suppositories as needed Plan Anticipate discharge to [facility] when arrangements are finalized Admission and Anticipated Discharge Date Admission Date: September 11, 2023 Subjective Alert and oriented. No new problems. She is tearful at times and states "I does not know what to do". I encouraged her to go to [facility] and get some rehab before she returns home. Creatinine stable at 2.7 off the Lasix. This will be restarted every other day at the time of discharge. Conjunctivitis has resolved with gentamicin drops, day 3. This can be discontinued at the time of discharge. She remains on oral Keflex while the left lower extremity laceration heals. Her oxygen requirement has not changed. She is on 5 L oxygen. She normally uses 4 L at home. Glucose 104 this a.m. Review of Systems 2 Review of Systems: Constitutional-no fever or chills ENT-no blurred vision, no double vision, no epistaxis, no sore throat. Bilateral hearing loss. Bilateral conjunctival irritation Respiratory-no cough, no wheezing, no shortness of breath Cardiac-no palpitations, no chest pain, no syncope GI-no nausea, vomiting, diarrhea, melena, hematochezia. She is constipated -chronic Mcfadden catheter in place. No hematuria Musculoskeletal-no joint pain, no muscle tenderness Skin-left lower extremity laceration bandaged Neuro-no isolated weakness, no paresthesia Psych-no depression, no anxiety Physical Exam 2 Physical Exam: General-alert and oriented x3, no fever, no chills. Morbidly obese HEENT-head atraumatic and normocephalic, pupils equal and reactive to light, extraocular muscles intact. Bilateral scleral injection noted. Left cerumen impaction noted Neck-no lymphadenopathy or thyromegaly, trachea midline Chest-diminished breath sounds bilaterally. No rales, wheezing or rhonchi Cardiac-regular rate and rhythm, normal S1 and S2 Abdomen-normal bowel sounds, nontender, no hepatosplenomegaly Extremities-bilateral lower extremity chronic venous stasis changes and chronic edema. Bandaged lower left leg laceration laterally Neuro-cranial nerves II through XII intact, motor and sensory function within normal limits, strength symmetrical with generalized weakness, no focal deficits Psych-normal affect, normal mood Results & Data Results & Data Vital Signs (Past 12 Hours) Vital Signs Temp Pulse Resp BP Pulse Ox O2 Del Method O2 Flow Rate 09/17/23 11:29 36.5 C 78 19 113/68 96 Nasal Cannula 5 09/17/23 08:11 36.5 C 86 21 114/74 94 Nasal Cannula 5 09/17/23 07:15 Nasal Cannula 5 Laboratory Results 09/17/23 06:59 09/17/23 06:59 PG Care Time/CCT Total # of Minutes Spent Total Time Spent with Patient: Total time spent is greater than 50% in coordination of care (as documented) at patient's floor/unit and/or counseling patient: Coding Level of Care Code 33650 SUB INP/OBS CARE 2MIN Diagnoses Fall W19.XXXA Laceration of leg S81.819A Chronic respiratory failure with hypoxia J96.11 Type 2 diabetes mellitus with polyneuropathy E11.42 Chronic acquired lymphedema I89.0 Morbid obesity due to excess calories E66.01 Impacted cerumen of left ear H61.22 Conjunctivitis H10.9 Constipation K59.00
[2023-09-18 07:17] LABS: Basophils # (auto) 0.05 K/uL (0.00-0.20); Basophils % (auto) 0.6 %; Eosinophils # (auto) 0.33 K/uL (0.00-0.50); Hematocrit (blood only) 34.1 % (37.0-47.0); Immature Granulocytes # (auto) 0.08 K/uL (0.01-0.20); Lymphocytes # (auto) 1.45 K/uL (1.20-3.40); Lymphocytes % (auto) 17.4 %; Mean Corpuscular Hemoglobin 25.1 pg (25.0-34.0); Mean Corpuscular Hgb Conc 29.3 g/dL (32.0-36.0); Mean Corpuscular Volume 85.5 fL (80.0-100.0); Mean Platelet Volume 10.8 fL (9.4-12.4); Monocytes # (auto) 1.19 K/uL (0.11-0.59); Monocytes % (auto) 14.3 %; Neutrophils # (auto) 5.23 K/uL (1.40-6.50); Neutrophils % (auto) 62.7 %; Nucleated RBC # (auto) 0.05 K/uL (0.00-0.12); Nucleated RBC % (auto) 0.6 %; Platelet Count 261 K/uL (130-400); RDW Coefficient of Variation 24.3 % (11.5-14.5); RDW Standard Deviation 71.3 fL (36.4-46.3); Red Blood Count 3.99 M/uL (4.20-5.40); White Blood Count 8.33 K/ul (4.8-10.8)
[2023-09-18 07:34] LABS: BUN Creatinine Ratio 20.2 (10-20); Calcium 8.8 mg/dl (8.6-10.3); Creatinine Clr Calc Pharmacy 30.5 ml/min; Est GFR (Non-African American) 18.1 ml/min; Potassium 4.3 mmol/L (3.5-5.1)
[2023-09-18 07:45] LABS: Anisocytosis Present; Hypochromasia Present; Microcytosis Present; Polychromasia 1+
--- NOTE | 2023-09-18 12:25 | Hospitalist Progress Note ---
Date of Service September 18, 2023 Assessment & Plan (1) Fall: Plan: Mechanical fall at home, no loss of consciousness or syncopal episode prior to fall. All x-rays negative for fractures. 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 Sutured in ED. Intravenous daptomycin and cefepime switched to oral cephalexin on September 12. Wound care consult appreciated. Pain control measures (4) Chronic respiratory failure with hypoxia: Plan: She states she uses continuous oxygen at home at 4 L/min. Currently on 5 L/min (5) Type 2 diabetes mellitus with polyneuropathy: Plan: ADA diet. Sliding scale coverage. (6) Chronic acquired lymphedema: Plan: Due to chronic venous insufficiency bilateral lower extremity (7) Morbid obesity due to excess calories: Plan: BMI is 70 significant weight loss recommended The majority of her weight is likely excess fluid (8) Impacted cerumen of left ear: Plan: Debrox ordered. Follow-up with PCP (9) Conjunctivitis: Plan: Gentamicin ophthalmic drops appear to be helping. Continue for 7 days These eyedrops can be discontinued at the time of discharge (10) Constipation: Plan: Ongoing Ordered daily MiraLAX, daily Dulcolax suppositories, and daily senna/docusate (11) Hypothyroidism: Plan: TSH 1.6 in 11/2022 Continue home levothyroxine Plan DVT prophylaxis-SQ Lovenox Disposition-anticipate discharge to [facility] once renal failure improves Admission and Anticipated Discharge Date Admission Date: September 11, 2023 Subjective Patient has complaints about not moving her bowels in many days. She is tearful when talking about rehab but her encourages her to go Physical Exam Constitutional: + morbidly obese Respiratory: normal respiratory effort, lungs clear to auscultation Cardiovascular: Rate/Rhythm: regular rate and regular rhythm Heart Sounds: no murmur Extremities: + edema (3+ pitting edema through up to abdomen) Gastrointestinal (Abdomen): Inspection/Auscultation: + abdomen distended, normal bowel sounds and + abdominal edema Percussion/Palpation: abdomen soft; abdomen nontender Psychiatric: Orientation: alert and oriented x 3 Affect: + tearful affect Results & Data Results & Data Vital Signs (Past 12 Hours) Vital Signs Temp Pulse Resp BP Pulse Ox O2 Del Method O2 Flow Rate 09/18/23 07:50 Nasal Cannula 5 09/18/23 07:23 36.3 C L 88 18 124/76 94 Nasal Cannula 5 Laboratory Results CBC, BMP reviewed PG Care Time/CCT Total # of Minutes Spent Total Time Spent with Patient: Total time spent is greater than 50% in coordination of care (as documented) at patient's floor/unit and/or counseling patient: Coding Level of Care Code 88293 SUB INP/OBS CARE 2/35MIN Diagnoses Fall W19.XXXA GUMARO (acute kidney injury) N17.9 Laceration of leg S81.819A Chronic respiratory failure with hypoxia J96.11 Type 2 diabetes mellitus with polyneuropathy E11.42 Chronic acquired lymphedema I89.0 Morbid obesity due to excess calories E66.01 Impacted cerumen of left ear H61.22 Conjunctivitis H10.9 Constipation K59.00 Hypothyroidism, unspecified type E03.9 Hypothyroidism type: unspecified (11) Hypothyroidism Hypothyroidism type: unspecified Qualified Code(s): E03.9 - Hypothyroidism, unspecified
[2023-09-18] MEDS: bisacodyL 10 MG SUPP PR SCH (13:00)
[2023-09-18] MEDS: DOCUSATE SODIUM/SENNA 50/8.6MG TAB PO SCH (13:00)
[2023-09-18] MEDS: POLYETHYLENE (MIRALAX) 17 GM PACK PO SCH (20:53)
[2023-09-19 06:58] LABS: Basophils # (auto) 0.04 K/uL (0.00-0.20); Basophils % (auto) 0.5 %; Eosinophils # (auto) 0.26 K/uL (0.00-0.50); Eosinophils % (auto) 3.5 %; Hematocrit (blood only) 34.4 % (37.0-47.0); Hemoglobin 10.2 g/dl (12.0-16.0); Immature Granulocytes # (auto) 0.05 K/uL (0.01-0.20); Immature Granulocytes % (auto) 0.7 %; Lymphocytes # (auto) 1.22 K/uL (1.20-3.40); Lymphocytes % (auto) 16.6 %; Mean Corpuscular Hemoglobin 25.7 pg (25.0-34.0); Mean Corpuscular Hgb Conc 29.7 g/dL (32.0-36.0); Mean Corpuscular Volume 86.6 fL (80.0-100.0); Mean Platelet Volume 10.8 fL (9.4-12.4); Monocytes # (auto) 0.91 K/uL (0.11-0.59); Monocytes % (auto) 12.4 %; Neutrophils # (auto) 4.88 K/uL (1.40-6.50); Neutrophils % (auto) 66.3 %; Nucleated RBC # (auto) 0.02 K/uL (0.00-0.12); Nucleated RBC % (auto) 0.3 %; Platelet Count 262 K/uL (130-400); RDW Coefficient of Variation 24.6 % (11.5-14.5); RDW Standard Deviation 73.6 fL (36.4-46.3); Red Blood Count 3.97 M/uL (4.20-5.40); White Blood Count 7.36 K/ul (4.8-10.8)
[2023-09-19 07:20] LABS: Anisocytosis Present; Polychromasia 1+
[2023-09-19 11:08] LABS: Anion Gap 7 (3-11); BUN Creatinine Ratio 20.9 (10-20); Blood Urea Nitrogen 53 mg/dl (6-23); Calcium 8.8 mg/dl (8.6-10.3); Carbon Dioxide 30 mmol/L (21-32); Chloride 97 mmol/L (98-107); Creatinine Clr Calc Pharmacy 31.6 ml/min; Est GFR (African American) 21.9 ml/min; Est GFR (Non-African American) 18.9 ml/min; Glucose 107 mg/dl (70-99(Fasting)); Sodium 134 mmol/L (136-145)
--- NOTE | 2023-09-19 18:19 | Hospitalist Progress Note ---
Date of Service September 19, 2023 Assessment & Plan (1) Fall: Plan: Mechanical fall at home, no loss of consciousness or syncopal episode prior to fall. All x-rays negative for fractures. Needs SNF placement before she can return home (2) GUMARO (acute kidney injury): Plan: In the setting of CKD stage III-IV with acute kidney injury secondary to aggressive diuresis, baseline creatinine around 1.6 Diuretics are on hold, creatinine slightly improved today at 2.5 Consider nephrology consultation if not improving Making urine with Mcfadden catheter in place Continue to hold lasix (3) Laceration of leg: Plan: Patient sustained an open laceration on the lateral lower aspect of her left lower extremity. Sutured in ED. Intravenous daptomycin and cefepime switched to oral cephalexin on September 12. Wound care consult appreciated. Pain control measures (4) Chronic respiratory failure with hypoxia: Plan: She states she uses continuous oxygen at home at 4 L/min. Currently on 5 L/min (5) Type 2 diabetes mellitus with polyneuropathy: Plan: ADA diet. Sliding scale coverage. (6) Chronic acquired lymphedema: Plan: Due to chronic venous insufficiency bilateral lower extremity (7) Morbid obesity due to excess calories: Plan: BMI is 70 significant weight loss recommended The majority of her weight is likely excess fluid (8) Impacted cerumen of left ear: Plan: Debrox ordered. Follow-up with PCP (9) Conjunctivitis: Plan: Gentamicin ophthalmic drops appear to be helping. Continue for 7 days These eyedrops can be discontinued at the time of discharge (10) Constipation: Plan: now resolved with laxatives and dulcolax CT Ordered daily MiraLAX, daily Dulcolax suppositories, and daily senna/docusate (11) Hypothyroidism: Plan: TSH 1.6 in 11/2022 Continue home levothyroxine Plan DVT prophylaxis-SQ Lovenox Disposition-anticipate discharge to [facility] once renal failure improves Admission and Anticipated Discharge Date Admission Date: September 11, 2023 Subjective Moved her bowels quite a bit since yesterday. Has some intermittent SOB. Still feels like left ear is clogged up. Physical Exam Constitutional: + morbidly obese Respiratory: normal respiratory effort, lungs clear to auscultation Cardiovascular: Rate/Rhythm: regular rate and regular rhythm Heart Sounds: no murmur Extremities: + edema (3+ pitting edema through up to abdomen) Gastrointestinal (Abdomen): Inspection/Auscultation: normal bowel sounds and + abdominal edema Percussion/Palpation: abdomen soft; abdomen nontender Psychiatric: Orientation: alert and oriented x 3 Results & Data Results & Data Vital Signs (Past 12 Hours) Vital Signs Temp Pulse Resp BP Pulse Ox O2 Del Method O2 Flow Rate 09/19/23 14:57 36.3 C L 87 16 133/80 98 Nasal Cannula 5 09/19/23 09:00 Nasal Cannula 5 09/19/23 07:31 36.4 C L 83 16 124/73 98 Nasal Cannula 5 Laboratory Results BMP, CBC reviewed PG Care Time/CCT Total # of Minutes Spent Total Time Spent with Patient: Total time spent is greater than 50% in coordination of care (as documented) at patient's floor/unit and/or counseling patient: Coding Level of Care Code 47062 SUB INP/OBS CARE 2/35MIN Diagnoses Fall W19.XXXA GUMARO (acute kidney injury) N17.9 Laceration of leg S81.819A Chronic respiratory failure with hypoxia J96.11 Type 2 diabetes mellitus with polyneuropathy E11.42 Chronic acquired lymphedema I89.0 Morbid obesity due to excess calories E66.01 Impacted cerumen of left ear H61.22 Conjunctivitis H10.9 Constipation K59.00 Hypothyroidism, unspecified type E03.9 Hypothyroidism type: unspecified (11) Hypothyroidism Hypothyroidism type: unspecified Qualified Code(s): E03.9 - Hypothyroidism, unspecified
[2023-09-20 07:35] LABS: BUN Creatinine Ratio 23.2 (10-20); Calcium 8.8 mg/dl (8.6-10.3); Creatinine Clr Calc Pharmacy 33.9 ml/min; Est GFR (African American) 23.8 ml/min; Est GFR (Non-African American) 20.5 ml/min; Potassium 4.1 mmol/L (3.5-5.1)
[2023-09-20 08:08] LABS: Macrocytosis Present
--- NOTE | 2023-09-20 18:31 | Hospitalist Progress Note ---
Date of Service September 20, 2023 Assessment & Plan (1) Fall: Plan: Mechanical fall at home, no loss of consciousness or syncopal episode prior to fall. All x-rays negative for fractures. 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 She has a h/o GUMARO with aggressive diuresis She is obviously massively volume overloaded and may end up needing dialysis at some point for volume management Diuretics remain on hold, creatinine slightly improved again today down to 2.3 Consider nephrology consultation if not improving Making urine with Mcfadden catheter in place (3) Laceration of leg: Plan: Patient sustained an open laceration on the lateral lower aspect of her left lower extremity. Sutured in ED. Intravenous daptomycin and cefepime switched to oral cephalexin on September 12 and complete dcourse. Wound care consult appreciated. Pain control measures Needs to have sutures removed sometime within the next week if lac edges seem approximated (4) Chronic respiratory failure with hypoxia: Plan: She states she uses continuous oxygen at home at 4 L/min. Currently on 5 L/min (5) Type 2 diabetes mellitus with polyneuropathy: Plan: ADA diet. Sliding scale coverage. (6) Chronic acquired lymphedema: Plan: Due to chronic venous insufficiency bilateral lower extremity (7) Morbid obesity due to excess calories: Plan: BMI is 70 significant weight loss recommended The majority of her weight is likely excess fluid (8) Impacted cerumen of left ear: Plan: Debrox ordered. RN attempted flushing with H2O2 and warm water to no avail Follow-up with PCP or ENT (9) Conjunctivitis: Plan: Gentamicin ophthalmic drops appear to be helping. Continue for 7 days These eyedrops can be discontinued at the time of discharge (10) Constipation: Plan: now resolved with laxatives and dulcolax ND dc laxatives as now having loose stools (11) Hypothyroidism: Plan: TSH 1.6 in 11/2022 Continue home levothyroxine Plan DVT prophylaxis-SQ Lovenox Disposition-anticipate discharge to [facility] once renal failure improves -hopefully in 1-2 more days Admission and Anticipated Discharge Date Admission Date: September 11, 2023 Subjective Pt reports having loose stools now since starting laxatives. She is in better spirits today and her mom and her son, are all visiting. thinks she looks better. Physical Exam Constitutional: + morbidly obese Respiratory: normal respiratory effort, lungs clear to auscultation Cardiovascular: Rate/Rhythm: regular rate and regular rhythm Heart Sounds: no murmur Extremities: + edema (3+ pitting edema through up to abdomen) Gastrointestinal (Abdomen): Inspection/Auscultation: normal bowel sounds and + abdominal edema Percussion/Palpation: abdomen soft; abdomen nontender Skin: left leg with kerlix wrap in place over laceration Psychiatric: Orientation: alert and oriented x 3 Affect: euthymic affect Results & Data Results & Data Vital Signs (Past 12 Hours) Vital Signs Temp Pulse Resp BP Pulse Ox O2 Del Method O2 Del Method 09/20/23 14:52 36.6 C 84 17 102/60 95 Nasal Cannula 09/20/23 14:50 Nasal Cannula 09/20/23 08:55 Nasal Cannula 09/20/23 07:55 36.5 C 87 16 112/66 96 Nasal Cannula O2 Flow Rate 09/20/23 14:52 09/20/23 14:50 09/20/23 08:55 5 09/20/23 07:55 5 Laboratory Results BMP reviewed PG Care Time/CCT Total # of Minutes Spent Total Time Spent with Patient: Total time spent is greater than 50% in coordination of care (as documented) at patient's floor/unit and/or counseling patient: Coding Level of Care Code 60074 SUB INP/OBS CARE 2/35MIN Diagnoses Fall W19.XXXA GUMARO (acute kidney injury) N17.9 Laceration of leg S81.819A Chronic respiratory failure with hypoxia J96.11 Type 2 diabetes mellitus with polyneuropathy E11.42 Chronic acquired lymphedema I89.0 Morbid obesity due to excess calories E66.01 Impacted cerumen of left ear H61.22 Conjunctivitis H10.9 Constipation K59.00 Hypothyroidism, unspecified type E03.9 Hypothyroidism type: unspecified (11) Hypothyroidism Hypothyroidism type: unspecified Qualified Code(s): E03.9 - Hypothyroidism, unspecified
[2023-09-21] MEDS: ROSUVASTATIN CALCIUM 20 MG TAB PO SCH (00:42)
[2023-09-21 07:34] LABS: Basophils # (auto) 0.05 K/uL (0.00-0.20); Basophils % (auto) 0.7 %; Eosinophils # (auto) 0.28 K/uL (0.00-0.50); Eosinophils % (auto) 3.8 %; Hematocrit (blood only) 34.5 % (37.0-47.0); Immature Granulocytes # (auto) 0.06 K/uL (0.01-0.20); Immature Granulocytes % (auto) 0.8 %; Lymphocytes # (auto) 1.19 K/uL (1.20-3.40); Mean Corpuscular Hemoglobin 25.1 pg (25.0-34.0); Mean Corpuscular Volume 86.7 fL (80.0-100.0); Mean Platelet Volume 10.3 fL (9.4-12.4); Monocytes # (auto) 1.17 K/uL (0.11-0.59); Monocytes % (auto) 15.7 %; Platelet Count 242 K/uL (130-400); RDW Coefficient of Variation 24.9 % (11.5-14.5); RDW Standard Deviation 74.4 fL (36.4-46.3); Red Blood Count 3.98 M/uL (4.20-5.40); White Blood Count 7.45 K/ul (4.8-10.8)
[2023-09-21 07:52] LABS: Hypochromasia Present; Polychromasia 1+
[2023-09-21 07:56] LABS: Calcium 8.9 mg/dl (8.6-10.3); Est GFR (African American) 23.9 ml/min; Est GFR (Non-African American) 20.6 ml/min; Potassium 4.3 mmol/L (3.5-5.1)
--- NOTE | 2023-09-21 14:26 | Hospitalist Progress Note ---
Date of Service September 21, 2023 Assessment & Plan (1) Fall: Plan: Mechanical fall at home, no loss of consciousness or syncopal episode prior to fall. All x-rays negative for fractures. Sustained laceration to left leg- should have sutures removed in the near future. Laceration was initially repaired on September 10. (2) GUMARO (acute kidney injury): Plan: Acute on chronic kidney disease stage III4. Due to diuretic therapy. Creatinine has stabilized around 2.3. Mcfadden catheter in place (3) Laceration of leg: Plan: Patient sustained an open laceration on the lateral lower aspect of her left lower extremity. Sutured in ED on September 10.. Intravenous daptomycin and cefepime switched to oral cephalexin on September 12 and she has now completed her antibiotic course. Wound care consult appreciated. Needs to have sutures removed sometime within the next week if lac edges seem approximated (4) Chronic respiratory failure with hypoxia: Plan: Using continuous oxygen at home at 4 L/min. Currently on 5 L/min (5) Type 2 diabetes mellitus with polyneuropathy: Plan: ADA diet. Sliding scale coverage. (6) Chronic acquired lymphedema: Plan: Due to chronic venous insufficiency bilateral lower extremity (7) Morbid obesity due to excess calories: Plan: BMI is 70. Significant weight loss recommended (8) Impacted cerumen of left ear: Plan: Debrox ordered. RN attempted flushing with H2O2 and warm water to no avail. Follow-up with PCP or ENT (9) Conjunctivitis: Plan: Gentamicin ophthalmic drops were administered and will be discontinued today, September 20. (10) Constipation: Plan: now resolved with laxatives and dulcolax [place] (11) Hypothyroidism: Plan: TSH 1.6 in 11/2022. Continue home levothyroxine Plan Anticipate discharge to [facility] once bariatric bed is available. Hopefully early next week Admission and Anticipated Discharge Date Admission Date: September 11, 2023 Supervising Physician Co-Signing Physician Notes I have discussed Ms. Molina's case with SCOTT Zavala and agree with the above documentation. Urology was consulted for difficult Mcfadden placement. Mcfadden catheter was placed in the following fashion. The patient was prepped and draped in the usual sterile fashion verbal consent was obtained. Due to her habitus, it was very difficult to retract tissues to expose the urethral meatus. With the assistance of several staff, we attempted to retract tissues but the meatus could not be well-visualized. Catheters were attempted couple times on suspected tissue, but these did not return with urine and patient reported some discomfort. Maintaining as much sterility as possible, I tried to position 1 hand along the anterior vaginal wall, where the urethral meatus could be palpated proximal to the pubic symphysis. Over this finger, a 16 Syriac coud catheter was advanced, and could be felt progressing into the urethral meatus. There was return of somewhat cloudy yellow urine. The balloon was inflated with 10 mL of normal saline. Catheter was attached to gravity drainage. Patient tolerated the procedure well with no immediate complications. -Morteza Sinclair MD. Subjective Alert and oriented. No new problems. is at the bedside. Case management informs me that [facility] will not have a bariatric bed until early next week. Gentamicin drops have been discontinued. She has completed her course of Keflex which was given prophylactically due to the left lower leg laceration. She remains on 5 L of oxygen. Glucose stable. Creatinine stable at 2.3. Review of Systems 2 Review of Systems: Constitutional-no fever or chills ENT-no blurred vision, no double vision, no epistaxis, no sore throat Respiratory-no cough, no wheezing, no shortness of breath Cardiac-no palpitations, no chest pain, no syncope GI-no nausea, vomiting, diarrhea, melena, hematochezia -no urinary retention, no urinary incontinence, no dysuria, no hematuria Musculoskeletal-no joint pain, no muscle tenderness Skin-no bruising, no rashes, no pruritus Neuro-no isolated weakness, no paresthesia, no weakness Psych-no depression, no anxiety Physical Exam 2 Physical Exam: General-alert and oriented x3, no fever, no chills. Morbidly obese HEENT-head atraumatic and normocephalic, pupils equal and reactive to light, extraocular muscles intact. Bilateral scleral injection noted. Left cerumen impaction noted Neck-no lymphadenopathy or thyromegaly, trachea midline Chest-diminished breath sounds bilaterally. No rales, wheezing or rhonchi Cardiac-regular rate and rhythm, normal S1 and S2 Abdomen-normal bowel sounds, nontender, no hepatosplenomegaly Extremities-bilateral lower extremity chronic venous stasis changes and chronic edema. Bandaged lower left leg laceration Neuro-cranial nerves II through XII intact, motor and sensory function within normal limits, strength symmetrical with generalized weakness, no focal deficits Psych-normal affect, normal mood Results & Data Results & Data Vital Signs (Past 12 Hours) Vital Signs Temp Pulse Pulse Resp BP Pulse Ox O2 Del Method 09/21/23 14:18 36.7 C 82 18 107/65 92 Nasal Cannula 09/21/23 11:59 37.1 C 80 16 118/72 98 CPAP 09/21/23 08:29 36.8 C 86 16 114/74 95 CPAP 09/21/23 08:00 Nasal Cannula 09/21/23 07:46 36.6 C 85 17 106/63 96 Nasal Cannula O2 Flow Rate 09/21/23 14:18 5 09/21/23 11:59 5 09/21/23 08:29 5 09/21/23 08:00 5 09/21/23 07:46 5 Laboratory Results 09/21/23 06:46 09/21/23 06:46 PG Care Time/CCT Total # of Minutes Spent Total Time Spent with Patient: Total time spent is greater than 50% in coordination of care (as documented) at patient's floor/unit and/or counseling patient: Coding Level of Care Code 74057 SUB INP/OBS CARE 3/50MIN Diagnoses Fall W19.XXXA GUMARO (acute kidney injury) N17.9 Laceration of leg S81.819A Chronic respiratory failure with hypoxia J96.11 Type 2 diabetes mellitus with polyneuropathy E11.42 Chronic acquired lymphedema I89.0 Morbid obesity due to excess calories E66.01 Impacted cerumen of left ear H61.22 Conjunctivitis H10.9 Constipation K59.00 Hypothyroidism, unspecified type E03.9 Hypothyroidism type: unspecified (11) Hypothyroidism Hypothyroidism type: unspecified Qualified Code(s): E03.9 - Hypothyroidism, unspecified
[2023-09-22] MEDS: FUROSEMIDE 40 MG TAB PO SCH (12:39)
[2023-09-22] MEDS ORDERED: MICONAZOLE NITRATE POWDER 85 GM EXT PRN (13:33)
--- NOTE | 2023-09-22 13:51 | Hospitalist Progress Note ---
Date of Service September 22, 2023 Assessment & Plan (1) Fall: Plan: Mechanical fall at home, no loss of consciousness or syncopal episode prior to fall. All x-rays negative for fractures. Sustained laceration to left leg- should have sutures removed in the near future. Laceration was initially repaired on September 10. (2) GUMARO (acute kidney injury): Plan: Acute on chronic kidney disease stage III4. Due to diuretic therapy. Creatinine has now stabilized around 2.3. Mcfadden catheter in place (3) Laceration of leg: Plan: Patient sustained an open laceration on the lateral lower aspect of her left lower extremity. Sutured in ED on September 10.. Intravenous daptomycin and cefepime switched to oral cephalexin on September 12 and she has now completed her antibiotic course. Wound care consult appreciated. Needs to have sutures removed sometime within the next week (4) Chronic respiratory failure with hypoxia: Plan: Using continuous oxygen at home at 4 L/min. Currently on 5 L/min (5) Type 2 diabetes mellitus with polyneuropathy: Plan: ADA diet. Sliding scale coverage. (6) Chronic acquired lymphedema: Plan: Due to chronic venous insufficiency bilateral lower extremity (7) Morbid obesity due to excess calories: Plan: BMI is 70. Significant weight loss recommended (8) Impacted cerumen of left ear: Plan: Debrox has been ordered. RN attempted flushing with H2O2 and warm water to no avail. Follow-up with PCP or ENT (9) Conjunctivitis: Plan: Gentamicin ophthalmic drops were administered and subsequently discontinued on September 20. (10) Constipation: Plan: now resolved with laxatives and dulcolax [place] (11) Hypothyroidism: Plan: TSH 1.6 in 11/2022. Continue home levothyroxine Plan Anticipate discharge to [facility] once bariatric bed is available. Hopefully early next week Admission and Anticipated Discharge Date Admission Date: September 11, 2023 Subjective Alert and oriented. No new problems. She has requested that her Lasix be restarted but this will not be on an every other day basis. Case management has notified me that a bariatric bed will not be available at [facility] until Sunday or Sunday. Review of Systems 2 Review of Systems: Constitutional-no fever or chills ENT-no blurred vision, no double vision, no epistaxis, no sore throat Respiratory-no cough, no wheezing, no shortness of breath Cardiac-no palpitations, no chest pain, no syncope GI-no nausea, vomiting, diarrhea, melena, hematochezia -no urinary retention, no urinary incontinence, no dysuria, no hematuria Musculoskeletal-no joint pain, no muscle tenderness Skin-no bruising, no rashes, no pruritus Neuro-no isolated weakness, no paresthesia, no weakness Psych-no depression, no anxiety Physical Exam 2 Physical Exam: General-alert and oriented x3, no fever, no chills. Morbidly obese HEENT-head atraumatic and normocephalic, pupils equal and reactive to light, extraocular muscles intact. Bilateral scleral injection noted. Left cerumen impaction noted Neck-no lymphadenopathy or thyromegaly, trachea midline Chest-diminished breath sounds bilaterally. No rales, wheezing or rhonchi Cardiac-regular rate and rhythm, normal S1 and S2 Abdomen-normal bowel sounds, nontender, no hepatosplenomegaly Extremities-bilateral lower extremity chronic venous stasis changes and chronic edema. Bandaged lower left leg laceration Neuro-cranial nerves II through XII intact, motor and sensory function within normal limits, strength symmetrical with generalized weakness, no focal deficits Psych-normal affect, normal mood Results & Data Results & Data Vital Signs (Past 12 Hours) Vital Signs Temp Pulse Resp BP Pulse Ox O2 Del Method O2 Flow Rate 09/22/23 08:00 Nasal Cannula 5 09/22/23 07:03 36.6 C 84 17 121/72 91 Nasal Cannula 5 Laboratory Results 09/21/23 06:46 09/21/23 06:46 PG Care Time/CCT Total # of Minutes Spent Total Time Spent with Patient: Total time spent is greater than 50% in coordination of care (as documented) at patient's floor/unit and/or counseling patient: Coding Level of Care Code 89627 SUB INP/OBS CARE 3/50MIN Diagnoses Fall W19.XXXA GUMARO (acute kidney injury) N17.9 Laceration of leg S81.819A Chronic respiratory failure with hypoxia J96.11 Type 2 diabetes mellitus with polyneuropathy E11.42 Chronic acquired lymphedema I89.0 Morbid obesity due to excess calories E66.01 Impacted cerumen of left ear H61.22 Conjunctivitis H10.9 Constipation K59.00 Hypothyroidism, unspecified type E03.9 Hypothyroidism type: unspecified (11) Hypothyroidism Hypothyroidism type: unspecified Qualified Code(s): E03.9 - Hypothyroidism, unspecified
[2023-09-23] MEDS: LEVOTHYROXINE SODIUM 112 MCG TABLET PO SCH (08:33)
[2023-09-23] MEDS: POLYETHYLENE (MIRALAX) 17 GM PACK PO PRN (08:41)
--- NOTE | 2023-09-23 12:19 | Hospitalist Progress Note ---
Date of Service September 23, 2023 Assessment & Plan (1) Fall: Plan: Mechanical fall at home, no loss of consciousness or syncopal episode prior to fall. All x-rays negative for fractures. Sustained laceration to left leg- should have sutures removed in the near future. Laceration was initially repaired on September 10. (2) GUMARO (acute kidney injury): Plan: Acute on chronic kidney disease stage III4. Due to diuretic therapy. Creatinine has now stabilized around 2.3. Mcfadden catheter in place (3) Laceration of leg: Plan: Patient sustained an open laceration on the lateral lower aspect of her left lower extremity. Sutured in ED on September 10.. Intravenous daptomycin and cefepime switched to oral cephalexin on September 12 and she has now completed her antibiotic course. Wound care consult appreciated. Needs to have sutures removed sometime within the next week (4) Chronic respiratory failure with hypoxia: Plan: Using continuous oxygen at home at 4 L/min. Currently on 5 L/min (5) Type 2 diabetes mellitus with polyneuropathy: Plan: ADA diet. Sliding scale coverage. (6) Chronic acquired lymphedema: Plan: Due to chronic venous insufficiency bilateral lower extremity (7) Morbid obesity due to excess calories: Plan: BMI is 70. Significant weight loss recommended (8) Impacted cerumen of left ear: Plan: Debrox has been ordered. RN attempted flushing with H2O2 and warm water to no avail. Follow-up with PCP or ENT (9) Conjunctivitis: Plan: Gentamicin ophthalmic drops were administered and subsequently discontinued on September 20. (10) Constipation: Plan: now resolved with laxatives and dulcolax [place] (11) Hypothyroidism: Plan: TSH 1.6 in 11/2022. Continue home levothyroxine Plan Anticipate discharge to [facility] once bariatric bed is available. Hopefully early next week Admission and Anticipated Discharge Date Admission Date: September 11, 2023 Subjective Alert and oriented. No new problems. Awaiting eventual placement at [facility] once a bariatric bed is available Review of Systems 2 Review of Systems: Constitutional-no fever or chills ENT-no blurred vision, no double vision, no epistaxis, no sore throat Respiratory-no cough, no wheezing, no shortness of breath Cardiac-no palpitations, no chest pain, no syncope GI-no nausea, vomiting, diarrhea, melena, hematochezia -no urinary retention, no urinary incontinence, no dysuria, no hematuria Musculoskeletal-no joint pain, no muscle tenderness Skin-no bruising, no rashes, no pruritus Neuro-no isolated weakness, no paresthesia, no weakness Psych-no depression, no anxiety Physical Exam 2 Physical Exam: General-alert and oriented x3, no fever, no chills. Morbidly obese HEENT-head atraumatic and normocephalic, pupils equal and reactive to light, extraocular muscles intact. Bilateral scleral injection noted. Left cerumen impaction noted Neck-no lymphadenopathy or thyromegaly, trachea midline Chest-diminished breath sounds bilaterally. No rales, wheezing or rhonchi Cardiac-regular rate and rhythm, normal S1 and S2 Abdomen-normal bowel sounds, nontender, no hepatosplenomegaly Extremities-bilateral lower extremity chronic venous stasis changes and chronic edema. Bandaged lower left leg laceration Neuro-cranial nerves II through XII intact, motor and sensory function within normal limits, strength symmetrical with generalized weakness, no focal deficits Psych-normal affect, normal mood Results & Data Results & Data Vital Signs (Past 12 Hours) Vital Signs O2 Del Method O2 Flow Rate 09/23/23 08:00 Nasal Cannula 5 Laboratory Results 09/21/23 06:46 09/21/23 06:46 PG Care Time/CCT Total # of Minutes Spent Total Time Spent with Patient: Total time spent is greater than 50% in coordination of care (as documented) at patient's floor/unit and/or counseling patient: Coding Level of Care Code 66967 SUB INP/OBS CARE 2/35MIN Diagnoses Fall W19.XXXA GUMARO (acute kidney injury) N17.9 Laceration of leg S81.819A Chronic respiratory failure with hypoxia J96.11 Type 2 diabetes mellitus with polyneuropathy E11.42 Chronic acquired lymphedema I89.0 Morbid obesity due to excess calories E66.01 Impacted cerumen of left ear H61.22 Conjunctivitis H10.9 Constipation K59.00 Hypothyroidism, unspecified type E03.9 Hypothyroidism type: unspecified (11) Hypothyroidism Hypothyroidism type: unspecified Qualified Code(s): E03.9 - Hypothyroidism, unspecified
[2023-09-24] MEDS: LEVOTHYROXINE SODIUM 112 MCG TABLET PO SCH (06:48)
--- NOTE | 2023-09-24 11:44 | Hospitalist Progress Note ---
Date of Service September 24, 2023 Assessment & Plan (1) Fall: Plan: Mechanical fall at home, no loss of consciousness or syncopal episode prior to fall. All x-rays negative for fractures. Sustained laceration to left leg- should have sutures removed in the near future. Laceration was initially repaired on September 10. (2) GUMARO (acute kidney injury): Plan: Acute on chronic kidney disease stage III4. Due to diuretic therapy. Creatinine has now stabilized around 2.3. Mcfadden catheter in place (3) Laceration of leg: Plan: Patient sustained an open laceration on the lateral lower aspect of her left lower extremity. Sutured in ED on September 10.. Intravenous daptomycin and cefepime switched to oral cephalexin on September 12 and she has now completed her antibiotic course. Wound care consult appreciated. 7 interrupted sutures were removed today, September 23, with some bleeding noted. The wound is open superficially and will need to heal by secondary intention. Steri-Strips were applied. Triple antibiotic ointment was applied and the bandage will need to be changed at least once daily depending on how much drainage she has until healed. (4) Chronic respiratory failure with hypoxia: Plan: Using continuous oxygen at home at 4 L/min. Currently on 5 L/min with 97% saturation. Will decrease to 4 L which is her usual oxygen requirement at home. (5) Type 2 diabetes mellitus with polyneuropathy: Plan: ADA diet. Sliding scale coverage. (6) Chronic acquired lymphedema: Plan: Due to chronic venous insufficiency bilateral lower extremity (7) Morbid obesity due to excess calories: Plan: BMI is 70. Significant weight loss recommended (8) Impacted cerumen of left ear: Plan: Status post Debrox therapy. RN attempted flushing with H2O2 and warm water to no avail. Follow-up with PCP or ENT for definitive treatment (9) Conjunctivitis: Plan: Gentamicin ophthalmic drops were administered and subsequently discontinued on September 20. (10) Constipation: Plan: now resolved with laxatives and dulcolax [place] (11) Hypothyroidism: Plan: TSH 1.6 in 11/2022. Continue home levothyroxine Plan She will either go to [facility] if they can get a bariatric bed or she will be discharged to home with home health services. The is aware that the bandage needs to be changed on the lower extremity at least once a day and he states that he has all the supplies necessary at home. Admission and Anticipated Discharge Date Admission Date: September 11, 2023 Subjective Alert and oriented. No new problems. Sutures were removed from the left lower leg laceration and Steri-Strips applied. Awaiting placement at [facility] if a bariatric bed is available today or tomorrow. If not, she will go home with home health services Review of Systems 2 Review of Systems: Constitutional-no fever or chills ENT-no blurred vision, no double vision, no epistaxis, no sore throat Respiratory-no cough, no wheezing, no shortness of breath Cardiac-no palpitations, no chest pain, no syncope GI-no nausea, vomiting, diarrhea, melena, hematochezia -no urinary retention, no urinary incontinence, no dysuria, no hematuria Musculoskeletal-no joint pain, no muscle tenderness Skin-no bruising, no rashes, no pruritus Neuro-no isolated weakness, no paresthesia, no weakness Psych-no depression, no anxiety Physical Exam 2 Physical Exam: General-alert and oriented x3, no fever, no chills. Morbidly obese HEENT-head atraumatic and normocephalic, pupils equal and reactive to light, extraocular muscles intact. Bilateral scleral injection noted. Left cerumen impaction noted Neck-no lymphadenopathy or thyromegaly, trachea midline Chest-diminished breath sounds bilaterally. No rales, wheezing or rhonchi Cardiac-regular rate and rhythm, normal S1 and S2 Abdomen-normal bowel sounds, nontender, no hepatosplenomegaly Extremities-bilateral lower extremity chronic venous stasis changes and chronic edema. Bandaged lower left leg laceration Neuro-cranial nerves II through XII intact, motor and sensory function within normal limits, strength symmetrical with generalized weakness, no focal deficits Psych-normal affect, normal mood Results & Data Results & Data Vital Signs (Past 12 Hours) Vital Signs Temp Pulse Pulse Resp BP BP Pulse Ox 09/24/23 07:30 09/24/23 07:30 36.9 C 85 16 95/61 L 97 09/24/23 06:19 36.7 C 85 18 99/70 L 98 O2 Del Method O2 Flow Rate 09/24/23 07:30 Nasal Cannula 5 09/24/23 07:30 Nasal Cannula 5 09/24/23 06:19 Nasal Cannula 5 Laboratory Results 09/21/23 06:46 09/21/23 06:46 PG Care Time/CCT Total # of Minutes Spent Total Time Spent with Patient: Total time spent is greater than 50% in coordination of care (as documented) at patient's floor/unit and/or counseling patient: Coding Level of Care Code 31397 SUB INP/OBS CARE 3/50MIN Diagnoses Fall W19.XXXA GUMARO (acute kidney injury) N17.9 Laceration of leg S81.819A Chronic respiratory failure with hypoxia J96.11 Type 2 diabetes mellitus with polyneuropathy E11.42 Chronic acquired lymphedema I89.0 Morbid obesity due to excess calories E66.01 Impacted cerumen of left ear H61.22 Conjunctivitis H10.9 Constipation K59.00 Hypothyroidism, unspecified type E03.9 Hypothyroidism type: unspecified (11) Hypothyroidism Hypothyroidism type: unspecified Qualified Code(s): E03.9 - Hypothyroidism, unspecified
--- NOTE | 2023-09-25 14:23 | Hospitalist Progress Note ---
Date of Service September 25, 2023 Assessment & Plan (1) Fall: Plan: Mechanical fall at home, no loss of consciousness or syncopal episode prior to fall. All x-rays negative for fractures. She sustained a laceration to left leg which was sutured on admission. The sutures were removed yesterday, September 23. Wound care nurse has been consulted for continued care. (2) GUMARO (acute kidney injury): Plan: Acute on chronic kidney disease stage III4. Due to diuretic therapy. Creatinine has now stabilized. Mcfadden catheter in place (3) Laceration of leg: Plan: Patient sustained an open laceration on the lateral lower aspect of her left lower extremity. Sutured in ED on September 10.. Intravenous daptomycin and cefepime switched to oral cephalexin on September 12 and she has now completed her antibiotic course. Wound care consult appreciated. 7 interrupted sutures were removed on September 23, with some bleeding noted. The wound is open superficially and will need to complete healing by secondary intention. Steri- Strips were applied. Triple antibiotic ointment is being applied and the bandage will need to be changed at least once daily depending on how much drainage she has until healed. Wound care nurse consult pending (4) Chronic respiratory failure with hypoxia: Plan: Using continuous oxygen at home at 4 L/min. She is now back to her baseline 4 L oxygen usage. (5) Type 2 diabetes mellitus with polyneuropathy: Plan: ADA diet. Sliding scale coverage. (6) Chronic acquired lymphedema: Plan: Due to chronic venous insufficiency bilateral lower extremity (7) Morbid obesity due to excess calories: Plan: BMI is 70. Significant weight loss recommended (8) Impacted cerumen of left ear: Plan: Status post Debrox therapy. RN attempted flushing with H2O2 and warm water to no avail. Follow-up with PCP or ENT for definitive treatment (9) Conjunctivitis: Plan: Gentamicin ophthalmic drops were administered and subsequently discontinued on September 20. (10) Constipation: Plan: now resolved with laxatives and dulcolax NE (11) Hypothyroidism: Plan: TSH 1.6 in 11/2022. Continue home levothyroxine Plan Case management pursuing [facility] swing bed placement or possibly [facility] if a bariatric bed can be arranged. At the least, she will need a bariatric bed at home and a new lift device. Admission and Anticipated Discharge Date Admission Date: September 11, 2023 Subjective Alert and oriented. No new problems. Physical therapy and case management entry is noted. There are several obstacles to her going home. She would need a bariatric bed at home and a new lift apparatus. Various placement options remain pending per case management. She is now on her usual 4 L of oxygen per nasal cannula. Review of Systems 2 Review of Systems: Constitutional-no fever or chills ENT-no blurred vision, no double vision, no epistaxis, no sore throat Respiratory-no cough, no wheezing, no shortness of breath Cardiac-no palpitations, no chest pain, no syncope GI-no nausea, vomiting, diarrhea, melena, hematochezia -no urinary retention, no urinary incontinence, no dysuria, no hematuria Musculoskeletal-no joint pain, no muscle tenderness Skin-no bruising, no rashes, no pruritus Neuro-no isolated weakness, no paresthesia, no weakness Psych-no depression, no anxiety Physical Exam 2 Physical Exam: General-alert and oriented x3, no fever, no chills. Morbidly obese HEENT-head atraumatic and normocephalic, pupils equal and reactive to light, extraocular muscles intact. Bilateral scleral injection noted. Left cerumen impaction noted Neck-no lymphadenopathy or thyromegaly, trachea midline Chest-diminished breath sounds bilaterally. No rales, wheezing or rhonchi Cardiac-regular rate and rhythm, normal S1 and S2 Abdomen-normal bowel sounds, nontender, no hepatosplenomegaly Extremities-bilateral lower extremity chronic venous stasis changes and chronic edema. Bandaged lower left leg laceration Neuro-cranial nerves II through XII intact, motor and sensory function within normal limits, strength symmetrical with generalized weakness, no focal deficits Psych-normal affect, normal mood Results & Data Results & Data Vital Signs (Past 12 Hours) Vital Signs Temp Pulse Resp BP Pulse Ox O2 Del Method O2 Flow Rate 09/25/23 07:59 36.6 C 91 H 18 114/70 94 Nasal Cannula 4 09/25/23 07:20 Nasal Cannula 4 Laboratory Results 09/21/23 06:46 09/21/23 06:46 PG Care Time/CCT Total # of Minutes Spent Total Time Spent with Patient: Total time spent is greater than 50% in coordination of care (as documented) at patient's floor/unit and/or counseling patient: Coding Level of Care Code 49708 SUB INP/OBS CARE MIN Diagnoses Fall W19.XXXA GUMARO (acute kidney injury) N17.9 Laceration of leg S81.819A Chronic respiratory failure with hypoxia J96.11 Type 2 diabetes mellitus with polyneuropathy E11.42 Chronic acquired lymphedema I89.0 Morbid obesity due to excess calories E66.01 Impacted cerumen of left ear H61.22 Conjunctivitis H10.9 Constipation K59.00 Hypothyroidism, unspecified type E03.9 Hypothyroidism type: unspecified (11) Hypothyroidism Hypothyroidism type: unspecified Qualified Code(s): E03.9 - Hypothyroidism, unspecified
--- NOTE | 2023-09-25 21:17 | Podiatry Consultation ---
Date of Consultation September 25, 2023 Assessment & Plan (1) Other specified peripheral vascular diseases: (2) Tinea unguium: (3) Pain in left toe(s): (4) Pain in right toe(s): Plan patient was examined and evaluated. We discussed at length the etiology and treatment for her painful dystrophic nails. We did discuss that it can be potentially harmful for her to attempt self debridement, given her peripheral arterial disease and relative immobility. In general, we do not debride nails in the hospital setting, however, since she is more immobile than most with a complex discharge situation pending, we will debride these nails likely tomorrow. It will still be difficult for her and she is likely to have future issues if she does not improve her overall health. There are no local tool grinder operator external who provide services in the home, though she does end up at an inpatient rehab facility, there is often on staff tool grinder operator external. We did discuss this at length and will follow up outpatient, as needed, in the future. History of Present Illness Reason for Consultation: painful toenails Attending Physician: Dav Neumann MD History of Present Illness Patient was seen at bedside. She states that she has been in hospital for the last several weeks and that she has not been able to follow up with her regular tool grinder operator external over that time. She states that she regularly sees a provider in [place] but has not seen them since March because of multiple hospitalizations and wound care. Now, she is requesting nail debridements before she is discharged, if possible. She has pending discharge to inpatient rehab or home if she can get a hospital bed at home. She denies any new or worsening signs or symptoms of infection. Further, she denies any recent medical history change. Allergies Allergy/AdvReac Type Severity Reaction Status Date / Time Iodinated Contrast Media Allergy Severe Hives and Verified 07/05/23 19:15 kidney complications iodine Allergy Severe Hives and Verified 07/05/23 19:15 kidney complications shellfish derived Allergy Severe Anaphylaxis Verified 07/05/23 19:15 /Hives sulfite Allergy Severe HIVES AND Verified 07/05/23 19:15 THROAT CLOSES Home Medications Medication Instructions Recorded Confirmed Type rosuvastatin 20 mg tablet 20 mg PO HS 02/26/19 09/11/23 History tramadol 50 mg tablet 50 mg PO Q6H PRN Pain 05/17/20 09/11/23 History montelukast 10 mg tablet 10 mg PO HS 09/27/20 09/11/23 History nitroglycerin 0.4 mg sublingual 0.4 mg sublingual Q5M PRN Chest 11/30/20 09/11/23 History tablet Pain Oxygen Home [id number] #4 L 06/17/21 09/11/23 Rx furosemide 20 mg tablet 40 mg PO DAILY 07/05/22 09/11/23 History levothyroxine 112 mcg tablet See Rx Instructions .Route .COMPLEX 07/05/22 09/11/23 History BiPap Machine #1 ea 11/27/22 09/11/23 Rx fluticasone 250 mcg-salmeterol 50 1 inh inhalation BID wheezing/sob 07/05/23 09/11/23 History mcg/dose blistr powdr for inhalation (Advair Diskus) epoetin milo-epbx 40,000 unit/mL 40,000 unit subcut Q7D 07/06/23 09/11/23 History injection solution (Retacrit) insulin regular hum U-500 conc 500 0 unit subcut UD 09/11/23 09/11/23 History unit/mL(3 mL) subcut pen (Humulin R U-500 (Conc) Insulin Kwikpen) insulin regular hum U-500 conc 500 See Rx Instructions .Route .COMPLEX 09/11/23 09/11/23 History unit/mL(3 mL) subcut pen (Humulin R U-500 (Conc) Insulin Kwikpen) ipratropium 0.5 mg-albuterol 3 mg 3 ml inhalation TID PRN Shortness 09/11/23 09/11/23 History (2.5 mg base)/3 mL nebulization Of Breath soln Patient History Medical History ARDS (adult respiratory distress syndrome) COVID-19 Chest pain Lymphedema Shortness of breath Obstructive sleep apnea syndrome Proteinuria Stage 3b chronic kidney disease Secondary pulmonary hypertension Obesity hypoventilation syndrome Morbid obesity due to excess calories Lymphedema of lower extremity Vitamin D deficiency Stage 3b chronic kidney disease Diarrhea Breathlessness Hypothyroidism Hypertension SOB (shortness of breath) Chronic respiratory failure 1 to 2 L oxygen Morbid obesity CAD S/P percutaneous coronary angioplasty Coronary artery disease Anemia Dyspnea CHF (congestive heart failure) Acute respiratory failure with hypoxia Thyroid cancer Diverticulitis GERD (gastroesophageal reflux disease) Diabetes Surgical History History of percutaneous coronary intervention History of colonoscopy H/O endoscopy H/O partial thyroidectomy Family History Other Diabetes Heart disease No pertinent family history Social History Smoking Status: Never smoker Second Hand Exposure: No; Do You Dip or Chew Tobacco: No; Hx Alcohol Use: No Hx Substance Use: No Preferred Language: Mauritian 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 Ability: Effective Social Media Manager Required: No Beliefs That Will Affect Care: None marital status: Current Living Situation: Spouse Current Living Situation Comment: current occupational status: disabled Feels Safe at Home: Yes Diet: other Diet Comment: low carb high protein "like a gastirc bypass diet" states seeing nutrionist caffeine: Yes during the past year weight has: increased > 10 lbs Physical Activity Frequency: Does not Exercise Do you think of yourself as: straight/heterosexual Gender Identity: Female Assistive Devices: Bedside Commode, Cane, CPAP, Lift Chair, Mechanical Lift, Scooter/Electric Scooter, Walker and Wheelchair Review of Systems Review of Systems: All systems reviewed & are unremarkable except as noted in HPI & below Constitutional: no problem reported Eyes: no problem reported Ear, Nose, Mouth, Throat: no problem reported Respiratory: + cough and + chest congestion Cardiovascular: + edema; no chest pain Gastrointestinal: no problem reported Musculoskeletal: + muscle weakness and + body aches Integumentary: + nail changes; no non-healing lesions a nd no skin ulcer Neurologic: + numbness and + paresthesia Psychiatric: no problem reported Physical Exam Physical Exam: lower extremity focused exam: DP/PT pulses 0/4 bilaterally. Diffuse atrophy is noted to the skin with absent hair growth noted to the digits. Diffuse nail changes are appreciated with thickening, dystrophy, extensive lengthening, and pain on palpation. CFT is brisk to the digits. No ulcerations or open lesions are appreciated. Muscle strength is diffusely decreased, 3 out of 5 bilaterally. Range of motion is functionally decreased as she is currently mostly bedridden. Subjective numbness is appreciated to the bilateral lower extremity. Constitutional: WD/WN, vitals as above + morbidly obese Eyes: PERRL, conjunctivae normal, anicteric sclerae ENMT: external ear and nose normal, oropharynx normal Neck: trachea midline, no thyromegaly Respiratory: normal respiratory effort, lungs clear to auscultation no respiratory distress Cardiovascular: Rate/Rhythm: regular rate and regular rhythm Vessels: + posterior tibial pulses abnormal and + dorsalis pedis pulses abnormal Extremities: + pedal edema and + edema; no calf tenderness Musculoskeletal: Head/Neck/Chest: normocephalic and head atraumatic Extremities: + limited ROM of extremities and + abnormal strength Skin: + skin atrophy, + dry skin, + nails disc olored and + nails dystrophic; no ulcers and no wound Neurologic: moves all extremities; + abnormal touch/pain/proprioception and + abnormal sensation to monofilament Psychiatric: A+Ox3, euthymic affect Results & Data Vital Signs (Past 12 Hours) Vital Signs Temp Pulse Resp BP Pulse Ox O2 Del Method O2 Flow Rate 09/25/23 20:05 Nasal Cannula 4 09/25/23 20:04 36.8 C 88 16 109/72 96 Nasal Cannula 4 09/25/23 16:50 36.6 C 84 18 114/74 92 Nasal Cannula 2
--- NOTE | 2023-09-26 14:52 | Hospitalist Progress Note ---
Date of Service September 26, 2023 Assessment & Plan (1) Fall: Plan: Mechanical fall at home, no loss of consciousness or syncopal episode prior to fall. All x-rays negative for fractures. She sustained a laceration to left leg which was sutured on admission. The sutures were removed on September 23. Wound care nurse has been consulted for continued care. (2) GUMARO (acute kidney injury): Plan: Acute on chronic kidney disease stage III4. Due to diuretic therapy. Creatinine has now stabilized. Mcfadden catheter in place (3) Laceration of leg: Plan: Patient sustained an open laceration on the lateral lower aspect of her left lower extremity. Sutured in ED on September 10.. Intravenous daptomycin and cefepime switched to oral cephalexin on September 12 and she has now completed her antibiotic course. Wound care consult appreciated. 7 interrupted sutures were removed on September 23, with some bleeding noted. The wound is open superficially and will need to complete healing by secondary intention. Steri- Strips were applied. Triple antibiotic ointment is being applied and the bandage will need to be changed at least once daily depending on how much drainage she has, until healed. Wound care nurse involvement appreciated. (4) Chronic respiratory failure with hypoxia: Plan: Using continuous oxygen at home at 4 L/min. She is now back to her baseline 4 L oxygen usage. (5) Type 2 diabetes mellitus with polyneuropathy: Plan: ADA diet. Sliding scale coverage. (6) Chronic acquired lymphedema: Plan: Due to chronic venous insufficiency bilateral lower extremity (7) Morbid obesity due to excess calories: Plan: BMI is 70. Significant weight loss recommended (8) Impacted cerumen of left ear: Plan: Status post Debrox therapy. RN attempted flushing with H2O2 and warm water to no avail. Follow-up with PCP or ENT for definitive treatment (9) Conjunctivitis: Plan: Gentamicin ophthalmic drops were administered and subsequently discontinued on September 20. (10) Constipation: Plan: now resolved with laxatives and dulcolax [place] (11) Hypothyroidism: Plan: TSH 1.6 in 11/2022. Continue home levothyroxine Plan Case management pursuing [facility] swing bed placement or possibly [facility] if a bariatric bed can be arranged. At the least, she will need a bariatric bed at home and a new lift device. Admission and Anticipated Discharge Date Admission Date: September 11, 2023 Subjective No new problems. Wound care nurse is managing the left lower leg laceration. Sutures were removed on September 23. The wound will continue to heal by secondary intention. She is on her usual 4 L of oxygen per nasal cannula which she uses at home. Review of Systems 2 Review of Systems: Constitutional-no fever or chills ENT-no blurred vision, no double vision, no epistaxis, no sore throat Respiratory-no cough, no wheezing, no shortness of breath Cardiac-no palpitations, no chest pain, no syncope GI-no nausea, vomiting, diarrhea, melena, hematochezia -no urinary retention, no urinary incontinence, no dysuria, no hematuria Musculoskeletal-no joint pain, no muscle tenderness Skin-no bruising, no rashes, no pruritus Neuro-no isolated weakness, no paresthesia, no weakness Psych-no depression, no anxiety Physical Exam 2 Physical Exam: General-alert and oriented x3, no fever, no chills. Morbidly obese HEENT-head atraumatic and normocephalic, pupils equal and reactive to light, extraocular muscles intact. Bilateral scleral injection noted. Left cerumen impaction noted Neck-no lymphadenopathy or thyromegaly, trachea midline Chest-diminished breath sounds bilaterally. No rales, wheezing or rhonchi Cardiac-regular rate and rhythm, normal S1 and S2 Abdomen-normal bowel sounds, nontender, no hepatosplenomegaly Extremities-bilateral lower extremity chronic venous stasis changes and chronic edema. Bandaged lower left leg laceration Neuro-cranial nerves II through XII intact, motor and sensory function within normal limits, strength symmetrical with generalized weakness, no focal deficits Psych-normal affect, normal mood Results & Data Results & Data Vital Signs (Past 12 Hours) Vital Signs Temp Pulse Resp BP Pulse Ox O2 Del Method O2 Flow Rate 09/26/23 14:26 36.6 C 89 16 125/75 92 Nasal Cannula 4 09/26/23 07:50 Nasal Cannula 4 09/26/23 07:03 36.2 C L 91 H 16 127/74 94 Nasal Cannula 5 Laboratory Results 09/21/23 06:46 09/21/23 06:46 PG Care Time/CCT Total # of Minutes Spent Total Time Spent with Patient: Total time spent is greater than 50% in coordination of care (as documented) at patient's floor/unit and/or counseling patient: Coding Level of Care Code 02407 SUB INP/OBS CARE MIN Diagnoses Fall W19.XXXA GUMARO (acute kidney injury) N17.9 Laceration of leg S81.819A Chronic respiratory failure with hypoxia J96.11 Type 2 diabetes mellitus with polyneuropathy E11.42 Chronic acquired lymphedema I89.0 Morbid obesity due to excess calories E66.01 Impacted cerumen of left ear H61.22 Conjunctivitis H10.9 Constipation K59.00 Hypothyroidism, unspecified type E03.9 Hypothyroidism type: unspecified (11) Hypothyroidism Hypothyroidism type: unspecified Qualified Code(s): E03.9 - Hypothyroidism, unspecified
[2023-09-26] MEDS: oxyCODONE HCL IR 5 MG TAB (IMMEDIATE RELEASE) PO PRN (16:38)
[2023-09-26] MEDS: ACETAMINOPHEN 325 MG TAB PO PRN (22:01)
[2023-09-27 01:06] LABS: Albumin Globulin Ratio 0.7 (0.9-2); Bilirubin,Total 1.5 mg/dl (0.2-1.0); Calcium 8.8 mg/dl (8.6-10.3); Creatinine Clr Calc Pharmacy 40.8 ml/min; Est GFR (African American) 29.7 ml/min; Est GFR (Non-African American) 25.7 ml/min; Globulin 4.4 gm/dl (2.5-4.0); Magnesium 2.7 mg/dl (1.7-2.4); Potassium 4.2 mmol/L (3.5-5.1); Total Protein 7.4 gm/dl (6.0-8.3)
[2023-09-27 01:12] LABS: Troponin I High Sensitivity 21.5 pg/ml (0-14)
[2023-09-27 01:42] LABS: Anisocytosis Present; Basophils # (auto) 0.03 K/uL (0.00-0.20); Basophils % (auto) 0.4 %; Eosinophils # (auto) 0.21 K/uL (0.00-0.50); Eosinophils % (auto) 2.9 %; Hematocrit (blood only) 32.6 % (37.0-47.0); Hemoglobin 9.4 g/dl (12.0-16.0); Hypochromasia Present; Immature Granulocytes # (auto) 0.04 K/uL (0.01-0.20); Immature Granulocytes % (auto) 0.6 %; Lymphocytes # (auto) 0.82 K/uL (1.20-3.40); Lymphocytes % (auto) 11.4 %; Mean Corpuscular Hemoglobin 25.3 pg (25.0-34.0); Mean Corpuscular Hgb Conc 28.8 g/dL (32.0-36.0); Mean Corpuscular Volume 87.9 fL (80.0-100.0); Mean Platelet Volume 10.2 fL (9.4-12.4); Monocytes % (auto) 12.5 %; Neutrophils # (auto) 5.19 K/uL (1.40-6.50); Neutrophils % (auto) 72.2 %; Platelet Count 247 K/uL (130-400); Polychromasia 1+; RDW Coefficient of Variation 24.9 % (11.5-14.5); RDW Standard Deviation 79.1 fL (36.4-46.3); Red Blood Count 3.71 M/uL (4.20-5.40); White Blood Count 7.19 K/ul (4.8-10.8)
--- NOTE | 2023-09-27 02:54 | 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 Note ---
Was notified by nursing at approximally 2330 that pt was complaining of chest pain. Evaluated pt at bedside; No acute distress. Vital signs stable. Heart with RRR, lungs clear to auscultation B/L. Describes pain as left sided, non radiating. Repeat EKG with incomplete RBB, largely unchanged from prior comparison. CXR and repeat labs ordered. Trop mildly elevated at 21, will plan to repeat. Pain has since resolved. Date of Service: September 26, 2023
--- NOTE | 2023-09-27 06:48 | XRay Report ---
XR chest 1V portable CLINICAL HISTORY: Chest Pain TECHNIQUE: Single frontal radiograph of the chest was obtained. Comparison: Comparison is made to chest radiograph 09/12/2023 FINDINGS: No lines and tubes are seen. Cardiomegaly is noted. Prominence and cephalization of the vasculature i s seen. No evidence of pleural effusion or pneumothorax. IMPRESSION: Cardiomegaly and mild pulmonary vascular congestion. ACT 112: Negative or not required by law. Electronically signed by: John Jeong M.D. 09/27/2023 6:47 AM
--- NOTE | 2023-09-27 08:05 | Electrocardiogram Report ---
Test Reason : Blood Pressure : / mmHG Vent. Rate : 091 BPM Atrial Rate : 091 BPM P-R Int : 186 ms QRS Dur : 096 ms QT Int : 372 ms P-R-T Axes : 059 125 -12 degrees QTc Int : 457 ms Normal sinus rhythm Right axis deviation Incomplete right bundle branch block Possible Old Anterior infarct Abnormal ECG When compared with ECG of 01-DEC-2022 16:05, QRS axis Shifted right Borderline Criteria for Anterior infarct now present Nonspecific T wave abnormality has replaced inverted T waves in Anterior leads Confirmed by Saji Padilla ([id number] on 09/27/2023 8:05:25 AM Referred By: REFERRED SELF Confirmed By:Saji Padilla
--- NOTE | 2023-09-27 12:19 | Discharge Summary ---
Date of Service September 27, 2023 Admission HPI Per Admitting Provider Patient is a 67-year-old female w/ PMHx of T2DM, osteomyelitis of r. third toe, cellulitis of r. foot, GERD, anxiety, cellulitis, unstable angina, CKD-stage 3b, CAD (s/p PCI), HTN, STEWART, presented to the hospital after a fall. Patient was at home and was having a bowel movement and when she went to stand up her legs gave out and she fell to the ground. She obtained a laceration to her left lower extremity. She was also covered in fecal matter after the fall. Patient requires 4 L of oxygen at home as baseline. She also has assisted left devices at home. She states that she does not like to use those devices though. She states that she is not mobile much at home. She also states that she did not feel lightheaded prior to the fall or have any LOC. She states that sometimes she does get lightheaded with standing up but she did not prior to this fall. She also denies any abdominal pain, nausea, vomiting, fever, chills, chest pain, or palpitations. She also denies any foot pain or hip pain. She has an indwelling Mcfadden. Of note, patient also had wound cultures growing MRSA previously. In the ED: Knee x-ray, pelvic x-ray, tibia/fibula x-ray, and chest x-ray were all negative for any acute fracture. CBC benign, CMP showed a creatinine of 1.66. At time of admission patient still has an open laceration on the left lower extremity. Principal Diagnosis Mechanical fall, left lower leg laceration, bilateral ocular conjunctivitis, cerium and impaction with hearing loss Discharge Exam General-alert and oriented x3, no fever, no chills. Morbidly obese HEENT-head atraumatic and normocephalic, pupils equal and reactive to light, extraocular muscles intact. Bilateral scleral injection noted. Left cerumen impaction noted Neck-no lymphadenopathy or thyromegaly, trachea midline Chest-diminished breath sounds bilaterally. No rales, wheezing or rhonchi Cardiac-regular rate and rhythm, normal S1 and S2 Abdomen-normal bowel sounds, nontender, no hepatosplenomegaly Extremities-bilateral lower extremity chronic venous stasis changes and chronic edema. Bandaged lower left leg laceration Neuro-cranial nerves II through XII intact, motor and sensory function within normal limits, strength symmetrical with generalized weakness, no focal deficits Psych-normal affect, normal mood Discharge Data Allergies Allergy/AdvReac Type Severity Reaction Status Date / Time Iodinated Contrast Media Allergy Severe Hives and Verified 07/05/23 19:15 kidney complications iodine Allergy Severe Hives and Verified 07/05/23 19:15 kidney complications shellfish derived Allergy Severe Anaphylaxis Verified 07/05/23 19:15 /Hives sulfite Allergy Severe HIVES AND Verified 07/05/23 19:15 THROAT CLOSES Consultations 09/10/23 23:55 ED Decision to Admit Stat 09/12/23 12:40 Consult Urology Routine 09/24/23 16:00 Consult Podiatry Routine Hospital Course (1) Fall: Mechanical fall at home, no loss of consciousness or syncopal episode prior to fall. All x-rays negative for fractures. She sustained a laceration to left leg which was sutured on admission. The sutures were removed on September 23. Wound care nurse has been consulted for continued care while hospitalized. (2) GUMARO (acute kidney injury): Acute on chronic kidney disease stage III4. Due to diuretic therapy. Creatinine has now stabilized. Mcfadden catheter in place (3) Laceration of leg: Patient sustained an open laceration on the lateral lower aspect of her left lower extremity. Sutured in ED on September 10.. Intravenous daptomycin and cefepime switched to oral cephalexin on September 12 and she has now completed her antibiotic course. Wound care consult appreciated. 7 interrupted sutures were removed on September 23, with some bleeding noted. The wound is open superficially and will need to complete healing by secondary intention. Steri- Strips were applied. Triple antibiotic ointment is being applied and the bandage will need to be changed at least once daily depending on how much drainage she has, until healed. Wound care nurse involvement appreciated. (4) Chronic respiratory failure with hypoxia: Using continuous oxygen at home at 4 L/min. She is now back to her baseline 4 L oxygen usage. (5) Type 2 diabetes mellitus with polyneuropathy: ADA diet. Sliding scale coverage. (6) Chronic acquired lymphedema: Due to chronic venous insufficiency bilateral lower extremity (7) Morbid obesity due to excess calories: BMI is 70. Significant weight loss recommended (8) Impacted cerumen of left ear: Status post Debrox therapy. RN attempted flushing with H2O2 and warm water to no avail. Follow-up with PCP or ENT for definitive treatment (9) Conjunctivitis: Gentamicin ophthalmic drops were administered and subsequently discontinued on September 20. (10) Constipation: now resolved with laxatives and dulcolax RI (11) Hypothyroidism: TSH 1.6 in 11/2022. Continue home levothyroxine Plan Unfortunately she has been denied and SNF bed at multiple places and [facility] cannot take her. Her and the patient have elected to simply go home. Home health services will be arranged if requested Total Time Total Time Spent Total Time Spent (In Minutes): 50-minute Discharge Plan Discharge Items Patient Disposition: Home - Self-Care Reason For Visit: FALL Discharge Diagnosis: Mechanical fall, laceration left lower leg, bilateral ocular conjunctivitis, cerumen impaction with hearing loss Condition on Discharge: Fair Activity: Resume your previous activity Non-emergency contact: Primary Care Provider Call non-emergency contact if: your symptoms worsen Follow-up/Referrals: Melissa Camilo PA-C [Primary Care Provider] - Diet: Carb Consistent or DM2 Addtl Attending Provider Instructions: Continue local care of left lower leg wound until it is completely healed. Follow-up with primary care provider soon as possible. You will need to see an nuclear physics professor in the office to get the wax out of both ears. Lasix should be taken every other day. Pain medication can be taken as needed. Prescriptions have been sent to your pharmacy Pending Studies at Discharge: No Stand-Alone Forms: [facility], Smoking Cessation Medications and DC Order Prescriptions: New furosemide 40 mg Tablet 40 mg PO Q48H Qty: 30 0RF oxycodone 5 mg Tablet 5 mg PO Q4 PRN (Reason: pain) Qty: 30 0RF ferrous sulfate 325 mg (65 mg iron) Tablet,Delayed Release (Dr/Ec) 325 mg PO QAM Qty: 0 0RF Continued (DME) BiPap Machine Misc See Rx Instructions .Route Qty: 1 0RF Rx Instructions: Max IPAP 14-Max pressure support 5,Min EPAP 6 Min Pressure support 5,AmeriGel-FullFaceMask -small nitroglycerin 0.4 mg tablet, sublingual 0.4 mg sublingual Q5M PRN (Reason: Chest Pain) Rx Instructions: do not exceed 3 doses per episode rosuvastatin 20 mg tablet 20 mg PO HS tramadol 50 mg tablet 50 mg PO Q6H PRN (Reason: Pain) montelukast 10 mg tablet 10 mg PO HS levothyroxine 112 mcg tablet See Rx Instructions .ROUTE .COMPLEX Rx Instructions: takes 1&1/2 168mcg one day per week and Takes 112mcg 6 days a week (not sure of days) fluticasone propion-salmeterol [Advair Diskus] 250-50 mcg/dose blister with device 1 inh INHALATION BID Retacrit 40,000 unit/mL solution 40,000 unit subcut Q7D Rx Instructions: according to blood work (DME) Oxygen Home E0424 Liters Per Minute See Rx Instructions .Route Qty: 4 0RF Rx Instructions: As directed Humulin R U-500 (Conc) Kwikpen 500 unit/mL (3 mL) insulin pen See Rx Instructions .ROUTE .COMPLEX Rx Instructions: inject 60 units subcutaneously at breakfast, 65 units at lunch, 70 units at dinner Humulin R U-500 (Conc) Kwikpen 500 unit/mL (3 mL) insulin pen 0 unit SUBCUT UD Rx Instructions: pt checks BSG prior to meals and takes a total of 20-30 units a day...as per pt 09/11/23 ipratropium-albuterol 0.5 mg-3 mg(2.5 mg base)/3 mL solution for nebulization 3 ml INHALATION TID PRN (Reason: Shortness Of Breath) Discontinued furosemide 20 mg tablet 40 mg PO DAILY Discharge Orders: Discharge Order (Routine); Ordered 09/27/23 Ordered By: Dav Pugh/Other Patient Handouts: Nutrition for Wound Healing, Managing Type 2 Diabetes Admission Data Admit Date/Time: 09/11/23 00:22 Attending Provider: Dav Neumann Admit Provider: Puenet Gomez Primary Care Provider: Melissa Camilo Other Providers: Jovon Nixon; [facility]; [facility]; Aimee Renteria at [place]; Shushan,[facility]; Orlando Abreu; Aimee Andrea Coding Level of Care Code 76790 INP/OBS DISCH >30 MIN Diagnoses Fall W19.XXXA GUMARO (acute kidney injury) N17.9 Laceration of leg S81.819A Chronic respiratory failure with hypoxia J96.11 Type 2 diabetes mellitus with polyneuropathy E11.42 Chronic acquired lymphedema I89.0 Morbid obesity due to excess calories E66.01 Impacted cerumen of left ear H61.22 Conjunctivitis H10.9 Constipation K59.00 Hypothyroidism, unspecified type E03.9 Hypothyroidism type: unspecified
--- NOTE | 2023-09-27 15:29 | Orthopedic Progress Note ---
Date of Service September 26, 2023 Assessment & Plan (1) Pain in right toe(s): (2) Pain in left toe(s): (3) Tinea unguium: (4) Other specified peripheral vascular diseases: Plan patient was examined and evaluated. - Nails 1-5 left, 1,2,4,5 right all debrided in length and thickness without incident. - Patient can again have this performed after November 27 or so. - If she is inpatient at rehab or a nursing facility, they will likely have a lathe setup operator on staff. - Otherwise, she will likely have to present to an office for care; we'd be happy to help. - Will sign off for now. Admission and Anticipated Discharge Date Admission Date: September 11, 2023 Subjective Pt seen at bedside. No new concerns. Here today for nail debridements. Patient states her is home working on getting her bedroom ready for when she can return. No N/F/C/V. Some shortness of breath at bedside today. Review of Systems Constitutional: no problem reported Eyes: no problem reported Ear, Nose, Mouth, Throat: no problem reported Respiratory: + cough and + chest congestion Cardiovascular: + edema; no chest pain Gastrointestinal: no problem reported Musculoskeletal: + muscle weakness and + body aches Integumentary: + nail changes; no non-healing lesions a nd no skin ulcer Neurologic: + numbness and + paresthesia Psychiatric: no problem reported Physical Exam Physical Exam: lower extremity focused exam: DP/PT pulses 0/4 bilaterally. Diffuse atrophy is noted to the skin with absent hair growth noted to the digits. Diffuse nail changes are appreciated with thickening, dystrophy, extensive lengthening, and pain on palpation. CFT is brisk to the digits. No ulcerations or open lesions are appreciated. Muscle strength is diffusely decreased, 3 out of 5 bilaterally. Range of motion is functionally decreased as she is currently mostly bedridden. Subjective numbness is appreciated to the bilateral lower extremity. Constitutional: WD/WN, vitals as above + morbidly obese Eyes: PERRL, conjunctivae normal, anicteric sclerae ENMT: external ear and nose normal, oropharynx normal Neck: trachea midline, no thyromegaly Respiratory: normal respiratory effort, lungs clear to auscultation no respiratory distress Cardiovascular: Rate/Rhythm: regular rate and regular rhythm Vessels: + posterior tibial pulses abnormal and + dorsalis pedis pulses abnormal Extremities: + pedal edema and + edema; no calf tenderness Musculoskeletal: Head/Neck/Chest: normocephalic and head atraumatic Extremities: + limited ROM of extremities and + abnormal strength Skin: + skin atrophy, + dry skin, + nails disc olored and + nails dystrophic; no ulcers and no wound Neurologic: moves all extremities; + abnormal touch/pain/proprioception and + abnormal sensation to monofilament Psychiatric: A+Ox3, euthymic affect Results & Data Vital Signs (Past 12 Hours) Vital Signs Temp Pulse Pulse Pulse Pulse Resp BP 09/27/23 13:24 36.6 C 82 84 85 16 114/67 09/27/23 08:15 09/27/23 07:41 36.6 C 85 16 114/67 09/27/23 03:40 82 17 BP Pulse Ox O2 Del Method O2 Flow Rate 09/27/23 13:24 108/68 94 09/27/23 08:15 Nasal Cannula 4 09/27/23 07:41 94 CPAP 4 09/27/23 03:40 95 4
== END 2023-09-27 16:00 | disposition home or self-care (01) | DRG 605 ==
LOC: ED 21:53 → EDINP 09-11 00:22 → SUATTDRO 09-11 00:22 → EDINP 09-11 02:35 → 3W 09-11 22:22 → 3E 09-12 14:07